=== PATIENT | female | born 1985 | race Caucasian/White ===

== ENCOUNTER 2023-12-28 15:30 | Outpatient (OUT) | payer OTHER, SELFPAY ==
[2023-12-28 16:05] LABS: Basophils Percent Auto 0.2 % (0.2-2.0); Eosinophils Absolute Auto 0.2 10^3/uL (0.0-0.7); Eosinophils Percent Auto 1.9 % (0.9-7.0); Hematocrit 26.9 % (36.0-48.0); Hemoglobin 8.6 g/dL (12.0-16.0); Immature Granulocytes Abs Auto 0.03 10^3/uL (0.00-0.03); Immature Granulocytes Pct Auto 0.3 % (0.0-0.5); Lymphocytes Absolute Auto 1.1 10^3/uL (1.2-3.8); Lymphocytes Percent Auto 11.7 % (20.5-60.0); Mean Corpuscular Hemoglobin 31.6 pg (26.7-34.0); Mean Corpuscular Volume 98.9 fL (81.0-99.0); Mean Platelet Volume 9.1 fL (9.5-13.5); Monocytes Absolute Auto 1.1 10^3/uL (0.3-0.8); Neutrophils Absolute Auto 6.9 10^3/uL (1.4-6.5); Neutrophils Percent Auto 73.9 % (43.0-75.0); Platelet Count 340 10^3/uL (150-450); Red Blood Count 2.72 10^6/uL (4.20-5.40); Red Cell Distribution Width 13.6 % (11.0-15.0); White Blood Count 9.3 10^3/uL (4.0-11.0)
[2023-12-28 16:12] LABS: Prothrombin Time 9.8 sec (9.0-11.6)
[2023-12-28 16:49] LABS: Alanine Aminotransferase 30 U/L (14-59); Albumin Globulin Ratio 0.9; Albumin Level 3.7 g/dL (3.4-5.0); Alkaline Phosphatase 56 U/L (46-116); Anion Gap 12.9; Aspartate Amino Transferase 33 U/L (15-37); BUN Creatinine Ratio 13.9; Bilirubin Total 1.1 mg/dL (0.2-1.0); Carbon Dioxide 25.6 mmol/L (21.0-32.0); Chloride 102 mmol/L (98-107); Estimated GFR (African America >60 (>=60); Estimated GFR (Non-African Ame >60 (>=60); Globulin 3.9 g/dL; Glucose 96 mg/dL (74-106); Potassium 4.5 mmol/L (3.5-5.1); Sodium 136 mmol/L (136-145); Total Protein 7.6 g/dL (6.4-8.2)
[2023-12-28 16:51] LABS: Bilirubin Urine NEGATIVE (NEGATIVE); Blood Urine SMALL (NEGATIVE); Clarity Urine CLEAR (CLEAR); Color Urine YELLOW (YELLOW); Glucose Urine UA NEGATIVE (NEGATIVE); Ketones Urine NEGATIVE (NEGATIVE); Leukocyte Esterase Urine NEGATIVE (NEGATIVE); Nitrite Urine NEGATIVE (NEGATIVE); Protein Urine 30 mg/dL (NEG/TRACE); Specific Gravity Urine >=1.030 (1.005-1.025); Urobilinogen Urine 0.2 EU/dL (0.2-1.0)
--- NOTE | 2023-12-28 17:02 | CT_ITS ---
[address] [address] Patient Name: AMY EL MRN: [id number] date: 1985 Sex: F Assigned Patient Location: Current Patient Location: [place] Accession/Order Number: [id number] Exam Date: 12/28/2023 16:47 Report Date: 12/28/2023 17:33 At the request of: BRENDA LANDON Procedure: CT abdomen pelvis w con EXAM: CT abdomen pelvis w con REASON FOR EXAM: Female, 38 years, Post op pain, G89.19, Rebound tenderness, R10.829, Fever. TECHNIQUE: Computed tomography of the abdomen and pelvis is performed in the axial projection from the lung bases to the pubic symphysis. Sagittal and coronal reconstructed images are performed. Dose reduction techniques were achieved by using automated exposure control and/or adjustment of mA and/or KVP according to patient size and/or use of iterative reconstruction technique. A total of 100 mL Omnipaque 300 IV contrast was given. Study was performed with oral contrast. COMPARISON: None. FINDINGS: Lung bases: There is patchy atelectasis at the lung bases. There is no pleural effusion. The visualized portions of the heart are unremarkable. Liver: The liver is enlarged. There is a small amount of perihepatic fluid. There is intermediate attenuation fluid, of moderate quantity within the abdomen and pelvis, which may represent blood products. No peritoneal enhancement. Gallbladder: The gallbladder is normal. Spleen: The spleen is normal. There is a small calcified granuloma within the spleen. Pancreas: The pancreas is normal. Adrenal glands: The adrenal glands are normal bilaterally. Right kidney: The kidney is normal in size. There is no renal calculus or hydronephrosis. Left kidney: The kidney is normal in size. There is no renal calculus or hydronephrosis. Stomach: The stomach is normal. Small bowel: The small bowel is normal. Large bowel: The colon is normal. Appendix: There has been an appendectomy. Aorta: The aorta is normal. IVC: The IVC is normal. Retroperitoneum: Normal retroperitoneum. Bladder: The bladder is normal. Pelvic organs: The uterus is absent, consistent with hysterectomy. Abdominal wall: There are postoperative changes to the lower abdominal wall. No well-defined drainable fluid collection is seen within the abdominal wall. Osseous structures: Normal bony structures. CT/CT abdomen pelvis w con IMPRESSION: There is a moderate amount of fluid within the abdomen and pelvis, greatest within the pelvis, which has intermediate attenuation. Given the history of recent surgery, this may represent blood products. Correlation with laboratory findings is suggested. I see no peritoneal enhancement or well-defined enhancing collection to suggest abscess formation. Postoperative changes of hysterectomy. No bowel obstruction or acute renal pathology. Dependent atelectasis is seen within both lung bases. Electronically authenticated by: STAS RAMIREZ Date: 12/28/2023 17:33
[2023-12-28 17:35] LABS: INR <0.93
[2023-12-28 19:07] LABS: Bacteria Urine SMALL #/HPF (NONE SEEN); Cast Seen? NONE SEEN #/LPF (NONE SEEN); Crystals Seen? None Seen #/HPF (None Seen); Mucus Urine LARGE (NONE SEEN); RBC Urine 0-2 #/HPF (0-2); Squamous Epithelial Cell Urine MANY #/LPF (NONE/RARE); Urine Culture Indicated ALREADY ORDERED
== END 2023-12-28 15:31 | disposition home or self-care (01) ==
LOC: US 15:35
PROVIDERS: PCP Family Medicine; Visit Provider Family Medicine
DX: R50.9 Fever, unspecified (principal); G89.18 Other acute postprocedural pain; R10.829 Rebound abdominal tenderness, unspecified site; R50.82 Postprocedural fever
CPT/HCPCS: 36415; 74177; 80053; 81001; 85025; 85610; 85730; 87086; 87150; 87186; Q9966; Q9967

== ENCOUNTER 2023-12-29 10:17 | Outpatient (OUT) | payer OTHER, SELFPAY ==
[2023-12-29 12:41] LABS: Basophils Percent Auto 0.3 % (0.2-2.0); Eosinophils Absolute Auto 0.2 10^3/uL (0.0-0.7); Eosinophils Percent Auto 1.9 % (0.9-7.0); Hematocrit 26.2 % (36.0-48.0); Hemoglobin 8.2 g/dL (12.0-16.0); Immature Granulocytes Abs Auto 0.04 10^3/uL (0.00-0.03); Immature Granulocytes Pct Auto 0.5 % (0.0-0.5); Lymphocytes Absolute Auto 0.9 10^3/uL (1.2-3.8); Lymphocytes Percent Auto 10.8 % (20.5-60.0); Mean Corpuscular HGB Conc 31.3 g/dL (29.9-35.2); Mean Corpuscular Hemoglobin 31.1 pg (26.7-34.0); Mean Corpuscular Volume 99.2 fL (81.0-99.0); Mean Platelet Volume 9.4 fL (9.5-13.5); Monocytes Absolute Auto 1.1 10^3/uL (0.3-0.8); Monocytes Percent Auto 12.9 % (1.7-12.0); Neutrophils Absolute Auto 6.3 10^3/uL (1.4-6.5); Neutrophils Percent Auto 73.6 % (43.0-75.0); Platelet Count 395 10^3/uL (150-450); Red Blood Count 2.64 10^6/uL (4.20-5.40); Red Cell Distribution Width 13.6 % (11.0-15.0); White Blood Count 8.6 10^3/uL (4.0-11.0)
--- OUTSIDE RECORDS SUMMARY | 2023-12-31 10:20 | XMS_ITS | CCD ---
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 Shipyard Painter Name Role Phone Brenda Landon Unavailable Ildefonso Leblanc Unavailable Unavailable Primary Care Provider Unavailabl e Unavailable Primary Care Provider Unavailabl e Unavailable Primary Care Provider Unavailabl e Brenda Landon MD Primary Care Provider [phone] Brenda Landon MD Primary Care Provider [phone] DIPESH ., DR GUTIERREZ Admitting Unavailable HOY ., DR GUTIERREZ Attending Unavailable HOY ., DR GUTIERREZ Primary Care Unavailable HOY ., DR GUTIERREZ Consulting Unavailable Susan De La Fuente Consulting Unavailable URIAH ADRIEN LANDERS A Referring Unavailable HOY, BRENDA M Primary Care Unavailable HOY, BRENDA M Primary Care Unavailable HOY, BRENDA M Primary Care Unavailable HILARY SHAFFER Referring Unavailable HOY, BRENDA M Primary Care Unavailable SHELBY GARCIA Attending Unavailable TORSTENHILARY Referring Unavailable RORO CAIN Referring Unavailable HOY, BRENDA M Primary Care Unavailable HILARY SHAFFER M Attending Unavailable HOY, BRENDA M Primary Care Unavailable PEDRO ISRAEL Attending Unavailable HOY, BRENDA M Primary Care Unavailable LAMONT BROWN Attending Unavailable FRANCHESCA ZUNIGA Referring Unavailable HOY, BRENDA M Primary Care Unavailable LUZ SIMS Attending Unavailable HOY, BRENDA M Primary Care Unavailable MECHELLE CRUZUEL A Attending Unavailable HOY, BRENDA M Primary Care Unavailable URIAH LANDERS ZHANNA Admitting Unavailable MECHELLE CRUZUEL A Attending Unavailable HOY, BRENDA M Primary Care Unavailable HILARY SHAFFER Attending Unavailable HILARY SHAFFER M Admitting Unavailable HOY, BRENDA M Primary Care Unavailable LEYLA MAYEN Attending Unavailable LEVI, LUZ Vargas Referring Unavailable HOY, BRENDA M Primary Care Unavailable RIBSHAYNEW, PEDRO Referring Unavailable NGOC-FRANCHESCA PAZ Attending Unavailable AL-ASHKOURTNEY, FEYROUZ Referring Unavailable HOY, BRENDA M Primary Care Unavailable HOY, BRENDA M Primary Care Unavailable TORSTEN, HILARY M Referring Unavailable GAUTAM HILL Attending Unavailable HOY, BRENDA M Primary Care Unavailable AL-JACKSON, FRANCHESCA Referring Unavailable HOY, BRENDA M Primary Care Unavailable EUNICE ARMSTRONG Attending Unavailable HOY, BRENDA M Primary Care Unavailable LAMONT BROWN Referring Unavailable HOY, BRENDA M Primary Care Unavailable TORSTEN, HILARY M Attending Unavailable PEDRO LUIS BAILEY Attending Unavailable HOY, BRENDA M Primary Care Unavailable URIAH LANDERS, ZHANNA Referring Unavailable HOY, BRENDA M Primary Care Unavailable URIAH LANDERS, ZHANNA Referring Unavailable HOY, BRENDA M Primary Care Unavailable SAACHARLES, KATHIEMAR Attending Unavailable HOY, BRENDA M Primary Care Unavailable LEVILUZ DANIEL Attending Unavailable PEDRO LUIS BAILEY Attending Unavailable HOY, BRENDA M Primary Care Unavailable SAATI, AMMAR Referring Unavailable HOY, BRENDA M Primary Care Unavailable URIAH LANDERS, ZHANNA Referring Unavailable URIAH LANDERS, ZHANNA Attending Unavailable HOY, BRENDA M Primary Care Unavailable URIAH LANDERS, ZHANNA Referring Unavailable HOY, BRENDA M Primary Care Unavailable URIAH PEYMAN, ZHANNA Attending Unavailable FRANCHESCA ZUNIGA Referring Unavailable HOY, BRENDA M Primary Care Unavailable PARISH PAGE Attending Unavailable HOY, BRENDA M Primary Care Unavailable HOY, RBENDA M Primary Care Unavailable HOY, BRENDA M Referring Unavailable TORSTEN, HILARY M Attending Unavailable HOY, BRENDA M Primary Care Unavailable RIBAKOW, PEDRO Attending Unavailable HOY, BRENDA M Primary Care Unavailable URIAH LANDERS, ZHANNA Referring Unavailable HOY, BRENDA M Primary Care Unavailable HOY, BRENDA M Primary Care Unavailable TORSTEN, HILARY M Referring Unavailable HOY, BRENDA M Primary Care Unavailable TORSTEN, HILARY M Referring Unavailable Allergies Allergy Classification Reported Allergen(s) Allergy Type Date of Onset Reaction(s) Facility (20 sources) Morphine; Translations: [MORPHINE] Drug Allergy 7 Other: See Comments [facility] (19 sources) traMADol Drug Allergy 8 Other: See Comments [facility] (1 source) Morphine Drug Allergy 7 [facility] Medications Current Medications Medication Drug Class(es) Dates Sig (Normalized) Sig (Original) 0.4 ml adalimumab 100 mg/ml auto-injector (20 sources) Tumor Necrosis Factor Judy Start: 05-12-2023 End: 05-17-2024 inject 40 mg by subcutaneous injection every other week adalimumab 40 mg/0.4 mL subcutaneous pen kit (HUMIRA (CF)) Indications: Crohn's disease of small and large intestines with complication (HCC) Inject 40 mg (1 pen) subcutaneously every 2 weeks. 6 Each 3 05/18/2023 05/17/2024 Active Start: 05-12-2023 End: 09-29-2023 adalimumab (HUMIRA,CF, PEN [facility]) 80 mg/0.8 mL pen kit Indications: Crohn's disease of small and large intestines with complication (HCC) Inject 160 mg (2 pens) subcutaneously on day 1, then inject 80 mg (1 pen)subcutaneously on day 15 followed by 40 mg (1 pen) on day29 and every 2 weeks thereafter. 3 Each 0 05/18/2023 09/29/2023 Discontinued Start: 05-10-2023 End: 05-11-2023 adalimumab 80 mg/0.8 mL subc utaneous pen kit (HUMIRA CF) Indications: Crohn's disease of small and large intestines with complication (HCC) Inject 160 mg subcutaneously on day 1, then inject 80 mg subcutaneously 2 weeks later. 3 Each 0 05/12/2023 Active Start: 05-06-2020 End: 12-31-2022 adalimumab (HUMIRA,CF, PEN) 40 mg/0.4 mL pen kit Inject 40 mg subcutaneously every 2 weeks. 0 05/06/2020 12/31/2022 Discontinued Start: 05-25-2017 Adalimumab (HU JOHN PEN) 40 MG/0.8ML injection Indications: Chronic bilateral low back pain without sciatica , Bilateral thoracic back pain, unspecified chronicity , Crohn's disease with complication, unspecified gastrointestinal tract location , 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 0.8 mL by Subcutaneous route every 7 days.. 4 mL 6 05/25/2017 Active Comment on above: Inject 40 mg subcuta neously every 2 weeks. Inject 160 mg subcut aneously on day 1, then inject 80 mg subcutaneously 2 weeks later. Inject 40 mg (1 pen) subcutaneously every 2 weeks. Inject 160 mg (2 pen s) subcutaneously on day 1, then inject 80 mg (1 pen)subcutaneously on day 15 followed by 40 mg (1 pen) on day29 and every 2 weeks thereafter. bisacodyl 5 mg delayed release oral tablet (2 sources) Stimulant Laxative Start: 09-20-20 End: 09-21-20 Bisacodyl (DULCOLAX) 5 mg tab Use as directed for Miralax / Gatorade Bowel Prep Kit 4 tablet 0 09/20/2023 09/21/2023 Active Comment on above: Use as directed for Miralax / Gatorade Bowel Prep Kit 12 hr buPROPion hydrochloride 150 mg extended release oral tablet (3 sources) Aminoketone Start: 11-17-20 End: 11-14-20 take 1 tablet by mouth once daily buPROPion SR (WELLBUTRIN SR) 150 mg 12 hr tablet Indications: Cigarette nicotine dependence without complication Take 1 tablet by mouth once daily. 30 tablet 0 11/17/2023 11/14/2023 Discontinued Start: 11-17-2023 End: 12-17-2023 take 1 tablet by mouth once daily buPROPion SR (WELLBUTRIN SR) 150 mg 12 hr tablet Indications: Cigarette nicotine dependence without complication Take 1 tablet by mouth once daily. 30 tablet 0 11/17/2023 12/17/2023 Active Start: 11-14-2023 take 1 tablet by marilyn th once daily buPROPion SR (WELLBUTRIN SR) 150 mg 12 hr tablet Indications: Cigarette nicotine dependence without complication TAKE 1 TABLET BY MOUTH EVERY DAY 90 tablet 1 11/14/2023 Active Comment on above: Take 1 tablet by marilyn th once daily. TAKE 1 TABLET BY MARILYN TH EVERY DAY dicyclomine hydrochloride 10 mg oral capsule (1 source) Anticholinergic dicyclomine 10 M G Cap Indications: Chronic bilateral low back pain without sciatica , Bilateral thoracic back pain, unspecified chronicity , Crohn's disease with complication, unspecified gastrointestinal tract location , 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 take 10 mg by mouth 4 times daily.. Active folic acid 1 mg oral tablet (1 source) Start: 017 folic acid 1 MG Tab Indications: Chronic bilateral low back pain without sciatica , Bilateral thoracic back pain, unspecified chronicity , Crohn's disease with complication, unspecified gastrointestinal tract location , 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 take 1 tablet by mouth daily.. 90 tablet 3 05/25/2017 Active Gatorade Sports Drink (2 sources) Start: End: Gatorade Sports Drink Use as directed for Miralax / Gatorade Bowel Prep Kit 0 09/20/2023 09/21/2023 Active Comment on above: Use as directed for Miralax / Gatorade Bowel Prep Kit mesalamine 1200 mg delayed release oral tablet (1 source) Aminosalicylate take 2 tablets by mouth once daily Mesalamine (LIALDA) 1.[address] take by mouth.. 2 tabs qd Active 24 hr nicotine 0.292 mg/hr transdermal system (20 sources) Cholinergic Nicotinic Agonist Start: 023 End: 024 nicotine (NICODERM) 7 mg/24 hr Indications: Cigarette nicotine dependence without complication Apply 1 Patch as directed every 24 hours. 28 Patch 5 10/18/2023 04/15/2024 Active Start: 10-18-2023 apply 1 dose transde rmal route every twenty-four hours nicotine (NICODERM) 14 mg/24 hr Indications: Cigarette nicotine dependence without complication Apply 1 Patch as directed every 24 hours. 28 Patch 0 10/18/2023 Active Start: 10-18-2023 take 1 dose by mouth every two hours as needed nicotine polacrilex (NICORETTE) 4 mg gum Indications: Cigarette nicotine dependence without complication Take 1 Each by mouth every 2 hours as needed. 100 Each 5 10/18/2023 Active Start: 01-24-2023 End: 05-19-2023 nicotine (NICODERM) 7 mg/24 hr Apply 1 Patch as directed every 24 hours. 14 Patch 1 01/24/2023 05/19/2023 Discontinued Start: 12-31-2022 End: 01-24-2023 Nicotine Polacrilex 2 mg daljit enge Use 1 lozenge every 1-2 hour as needed; do not exceed >20 lozenge per day. Put the lozenge in your mouth between your gums and your cheek and allow the lozenge to dissolve slowly over 20-30 minutes, moving it around every so often from one side of your mouth to the other. 144 Lozenge 0 12/31/2022 01/24/2023 Discontinued Comment on above: Use 1 lozenge every 1-2 hour as needed; do not exceed >20 lozenge per day. Put the lozenge in your mouth between your gums and your cheek and allow the lozenge to dissolve slowly over 20-30 minutes, moving it around every so often from one side of your mouth to the other. Apply 1 Patch as dir ected every 24 hours. Take 1 Each by mouth every 2 hours as needed. oxyCODONE hydrochloride 5 mg oral tablet (1 source) Opioid Agonist Start: 3 End: take 1 tablet by mouth every six hours as needed for pain oxyCODONE IR (ROXICODONE) 5 mg immediate release tablet Indications: Postoperative pain Take 1 tablet by mouth every 6 hours as needed for pain for up to 7 days. 28 tablet 0 02/17/2023 02/24/2023 Active Comment on above: Take 1 tablet by marilyn every 6 hours as needed for pain for up to 7 days. pantoprazole 40 mg delayed release oral tablet (1 source) Proton Pump Inhibitor pantoprazole (PROTONIX) [address] take 40 mg by mouth daily.. Active polyethylene glycol 3350 90576 mg powder for oral solution (2 sources) Osmotic Laxative Start: 3 End: 3 polyethylene glycol 3350 17 gram/dose powder Use as directed for Miralax / Gatorade Bowel Prep Kit 238 g 0 09/20/2023 09/21/2023 Active Comment on above: Use as directed for Miralax / Gatorade Bowel Prep Kit Probiotic Product (PROBIOTIC ADVANCED PO) (1 source) Probiotic Produc t (PROBIOTIC ADVANCED PO) take by mouth.. Active Completed/Discontinued Medications Medication Drug Class(es) Dates Sig (Normalized) Sig (Original) acetaminophen 500 mg oral tablet (16 sources) Start: 02-17-2023 End: 05-19-2023 take 2 tablets by mouth every eight hours as needed acetaminophen (TYLENOL) 500 mg tablet Take 2 tablets by mouth every 8 hours as needed for pain. 0 02/17/2023 05/19/2023 Discontinued Comment on above: Take 2 tablets by mo ut every 8 hours as needed for pain. cholecalciferol 0.025 mg oral tablet (20 sources) Vitamin D Start: 02-28-2023 End: 05-29-2023 take 2 tablets by mouth once daily cholecalciferol (VITAMIN D3) 1,000 unit tab tablet Indications: Vitamin D deficiency Take 2 tablets by mouth once daily. 180 tablet 1 02/28/2023 05/19/2023 Discontinued Start: 12-13-2022 End: 03-13-2023 take 1 capsule by mouth every week cholecalciferol, Vitamin D3, (VITAMIN D3) 1,250 mcg (50,000 unit) cap capsule Indications: Vitamin D deficiency Take 1 capsule by mouth one time a week. 4 capsule 2 12/13/2022 02/28/2023 Discontinued (Course of therapy completed) Comment on above: Take 1 capsule by mo uth one time a week. Take 2 tablets by mo [facility] once daily. ciprofloxacin 500 mg oral tablet (9 sources) Quinolone Antimicrobial End: 05-19 take 1 tablet by mouth twice daily ciprofloxacin HCl (CIPRO) 500 mg tablet Take 500 mg by mouth twice daily. 0 05/19/2023 Discontinued Comment on above: Take 500 mg by mouth twice daily. 0.8 ml enoxaparin sodium 100 mg/ml prefilled syringe (9 sources) Low Molecular Weight Heparin Start : 09-14 End: 09-24 inject 0.65 mL by subcutaneous injection every twelve hours enoxaparin (LOVENOX) 80 mg/0.8 mL Indications: Antiphospholipid syndrome (HCC) Inject 0.65 mL subcutaneously every 12 hours for 10 days. 20 Each 0 09/14/2023 09/24/2023 Comment on above: Inject 0.65 mL subcu taneously every 12 hours for 10 days. enteric contrast (will be provided with radiology test) (2 sources) Start : 07-05 End: 07-06 enteric contrast (will be provided with radiology test) Indications: Crohn's disease of both small and large intestine without complication (HCC) , Crohn's disease of small and large intestines with complication (HCC) For MRI ENTEROGRAPHY WO/W Administer, As Directed One Time Only, via Oral, Rectal, both Oral and Rectal, Enteric Tube, Stoma or Indwelling Catheter, Enteric Contrast as designated per enteric contrast guidelines 1 Each 0 07/05/2022 07/06/2022 Comment on above: For MRI ENTEROGRAPHY WO/W Administer, As Directed One Time Only, via Oral, Rectal, both Oral and Rectal, Enteric Tube, Stoma or Indwelling Catheter, Enteric Contrast as designated per enteric contrast guidelines erythromycin 500 mg oral tablet (1 source) Macrolide, Macrolide Antimicrobial Start : 02-11 Erythromycin 500 mg tablet Indications: Preoperative examination Take 2 tablets by mouth as directed. Take 2 tablets by mouth at 9pm and take 2 tablets by mouth at 11pm the night before surgery. 4 tablet 0 02/11/2023 Active Comment on above: Take 2 tablets by mo ut as directed. Take 2 tablets by mouth at 9pm and take 2 tablets by mouth at 11pm the night before surgery. glucagon (rdna) 1 mg injection (11 sources) Antihypoglycemic Agent Start : 07-05 End: 12-10 inject 1 mg intravenously once glucagon (GLUCAGEN) 1 mg/mL injection Indications: Crohn's disease of both small and large intestine without complication (HCC) , Crohn's disease of small and large intestines with complication (HCC) Inject 1 mg intravenously one time only for 1 dose. For MRI Enterography, Inject 1 mg intravenously, as directed. Slow push at the appropriate time during MRI Scan 1 Each 0 07/05/2022 12/10/2022 Discontinued (Course of therapy completed) Comment on above: Inject 1 mg intraven ously one time only for 1 dose. For MRI Enterography, Inject 1 mg intravenously, as directed. Slow push at the appropriate time during MRI Scan iv contrast (will be provided with radiology test) (16 sources) Start : 05-20 End: 09-29 iv contrast (will be provided with radiology test) MRI Female Pelvis Inject, intravenously, once for 1 dose. No IV access, insert saline lock prior to the beginning of sedation, infusion, injection of imaging exam. Discontinue saline lock post exam. If Pt has a central line or IVAD, may access for administration according to line specific nursing protocol. Once exam is complete flush line and de-access according to line specific nursing protocol in the MR contrast administration guidelines link. 1 Each 0 05/20/2023 09/29/2023 Discontinued Start: 05-20-2023 iv contrast (w ill be provided with radiology test) MRI Female Pelvis Inject, intravenously, once for 1 dose. No IV access, insert saline lock prior to the beginning of sedation, infusion, injection of imaging exam. Discontinue saline lock post exam. If Pt has a central line or IVAD, may access for administration according to line specific nursing protocol. Once exam is complete flush line and de-access according to line specific nursing protocol in the MR contrast administration guidelines link. 1 Each 0 05/20/2023 Active Start: 07-05-2022 End: 07-06-2022 iv contrast (will be provide d with radiology test) Indications: Crohn's disease of both small and large intestine without complication (HCC) , Crohn's disease of small and large intestines with complication (HCC) MRI Enterography Inject, intravenously, once for 1 dose. No IV access, insert saline lock prior to the beginning of sedation, infusion, injection of imaging exam. Discontinue saline lock post exam. If Pt. has a central line or IVAD, may access for administration according to line specific nursing protocol. Once exam is complete flush line and de-access according to line specific nursing protocol in the MR contrast administration guidelines link. 1 Each 0 07/05/2022 07/06/2022 Comment on above: MRI Enterography Inj ect, intravenously, once for 1 dose. No IV access, insert saline lock prior to the beginning of sedation, infusion, injection of imaging exam. Discontinue saline lock post exam. If Pt. has a central line or IVAD, may access for administration according to line specific nursing protocol. Once exam is complete flush line and de-access according to line specific nursing protocol in the MR contrast administration guidelines link. MRI Female Pelvis In ject, intravenously, once for 1 dose. No IV access, insert saline lock prior to the beginning of sedation, infusion, injection of imaging exam. Discontinue saline lock post exam. If Pt has a central line or IVAD, may access for administration according to line specific nursing protocol. Once exam is complete flush line and de-access according to line specific nursing protocol in the MR contrast administration guidelines link. lidocaine 0.05 mg/mg medicated patch (20 sources) Antiarrhythmic, Amide Local Anesthetic Start: 05-19-20 End: 09-29-20 apply 1 dose transdermal route every twenty-four hours lidocaine (LIDODERM) 5 % Indications: Arthritis associated with inflammatory bowel disease , Back stiffness , Bilateral sacroiliitis (HCC) Apply 1 Patch as directed every 24 hours. 30 Patch 1 05/19/2023 09/29/2023 Discontinued Comment on above: Apply 1 Patch as dir ected every 24 hours. Magnesium Sulfate / potassium sulfate / sodium sulfate (14 sources) Start: 07-05-20 End: 12-10-19 sodium sulfate-potassium sulfate-magnesium sulfate (SUPREP BOWEL PREP KIT) 17.5-3.13-1.6 gram oral liquid Indications: Crohn's disease of both small and large intestine without complication (HCC) , Crohn's disease of small and large intestines with complication (HCC) Use as directed. 1 Kit 0 07/05/2022 12/10/2022 Discontinued (Course of therapy completed) Start: 07-05-2022 sodium sulfate -potassium sulfate-magnesium sulfate (SUPREP BOWEL PREP KIT) 17.5-3.13-1.6 gram oral liquid Indications: Crohn's disease of both small and large intestine without complication (HCC) , Crohn's disease of small and large intestines with complication (HCC) Use as directed. 1 Kit 0 07/05/2022 Active Comment on above: Use as directed. metroNIDAZOLE 500 mg oral tablet (1 source) Nitroimidazole Antimicrobial Start: 02-12-20 metroNIDAZOLE (FLAGYL) 500 mg tablet Indications: Preoperative examination Take 1 tablet by mouth at 9pm and take 1 tablet by mouth at 11pm the night before surgery. 2 tablet 0 02/11/2023 Active Comment on above: Take 1 tablet by marilyn th at 9pm and take 1 tablet by mouth at 11pm the night before surgery. norethindrone acetate 5 mg oral tablet (12 sources) Start: 05-20-20 End: 09-29-20 take 1 tablet by mouth once daily norethindrone (AYGESTIN) 5 mg tablet Indications: Endometriosis , Pelvic pain in female Take 1 tablet by mouth once daily. 90 tablet 0 05/20/2023 09/29/2023 Discontinued Comment on above: Take 1 tablet by marilyn th once daily. simethicone 125 mg chewable tablet (5 sources) Start: 12-10-19 End: 03-10-20 take 1 tablet by mouth every six hours as needed Simethicone 125 mg chewable tablet Indications: Crohn's disease of small and large intestines with complication (HCC) Take 1 tablet by mouth every 6 hours as needed. 120 tablet 2 12/10/2022 12/31/2022 Discontinued Comment on above: Take 1 tablet by marilyn th every 6 hours as needed. Surgical Lubricant Jelly gel (14 sources) Start: 05-20-20 End: 09-29-20 Surgical Lubricant Jelly gel For MRI Female Pelvis, MRI department to provide. Administer intra-vaginal Surgilube immediately prior the MRI procedure (total amount to patient toleranace). 1 g 0 05/20/2023 09/29/2023 Discontinued Start: 05-20-2023 Surgical Lubri cant Jelly gel For MRI Female Pelvis, MRI department to provide. Administer intra-vaginal Surgilube immediately prior the MRI procedure (total amount to patient toleranace). 1 g 0 05/20/2023 Active Comment on above: For MRI Female Pelvi s, MRI department to provide. Administer intra-vaginal Surgilube immediately prior the MRI procedure (total amount to patient toleranace). warfarin sodium 3 mg oral tablet (9 sources) Vitamin K Antagonist Start: 09-14-20 End: 09-29-20 take 1 tablet by mouth once daily warfarin (COUMADIN) 3 mg tablet Indications: Antiphospholipid syndrome (HCC) Take 1 tablet by mouth daily as directed. 30 tablet 0 09/14/2023 09/29/2023 Discontinued Comment on above: Take 1 tablet by marilyn th daily as directed. Problems Active Problems Problem Classification Problem Date Documented Da te Episodic/Chronic Administrative/social admission (2 sources) 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; Translations: [Other specified counseling] Onset: 4 Episodic Coagulation and hemorrhagic disorders (20 sources) Antiphospholipid syndrome; Translations: [Antiphospholipid syndrome] Onset: 3 09-14-2023 Chronic Endometriosis (3 sources) Endometriosis (clinical); Translations: [Endometriosis, unspecified] Onset: 3 Chronic Intestinal obstruction without hernia (1 source) Stricture of intestine; Translations: [Other intestinal obstruction unspecified as to partial versus complete obstruction] Episodic Menstrual disorders (2 sources) Dysmenorrhea; Translations: [Dysmenorrhea, unspecified] Onset: 4 09-05-2023 Chronic Nutritional deficiencies (4 sources) Vitamin D deficiency; Translations: [Vitamin D deficiency, unspecified] Onset: 3 Chronic Other aftercare (3 sources) Long-term current use of systemic steroid; Translations: [terminal make up operator (current) use of systemic steroids] Episodic Other aftercare (13 sources) Long-term current use of anticoagulant; Translations: [terminal make up operator (current) use of anticoagulants] Onset: 3 09-14-2023 Episodic Other circulatory disease (2 sources) Raynaud's phenomenon; Translations: [Raynaud's syndrome without gangrene] Chronic Other circulatory disease (1 source) Raynaud's syndrome without gangrene; Translations: [Raynaud's phenomenon without gangrene] Onset: 4 Chronic Other female genital disorders (1 source) Abnormal uterine bleeding; Translations: [Abnormal uterine and vaginal bleeding, unspecified] 09-05-2023 Chronic Other female genital disorders (1 source) Abnormal uterine and vaginal bleeding, unspecified; Translations: [Abnormal uterine bleeding] Onset: 4 Chronic Other female genital disorders (1 source) H/O: miscarriage; Translations: [Recurrent loss] Episodic Other gastrointestinal disorders (2 sources) Abdominal bloating; Translations: [Abdominal distension (gaseous)] Episodic Other gastrointestinal disorders (3 sources) Enteropathic arthritis; Translations: [Disease of intestine, unspecified] Episodic Other non-traumatic joint disorders (1 source) Enteropathic arthropathies, unspecified site; 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] Onset: 3 Chronic Other non-traumatic joint disorders (4 sources) Pain in left ankle and joints of left foot; Translations: [PAIN IN LEFT ANKLE] Onset: 3 Episodic Regional enteritis and ulcerative colitis (20 sources) Crohn's disease; Translations: [Crohn's disease of colon] Onset: 6 10-11-2016 Chronic Residual codes; unclassified (2 sources) Human leukocyte antigen B27 test positive; Translations: [Genetic susceptibility to other disease] Episodic Residual codes; unclassified (1 source) Other specified postprocedural states; Translations: [Post-operative state] Onset: 4 Episodic Rheumatoid arthritis and related disease (20 sources) Ankylosing spondylitis; Translations: [Ankylosing spondylitis of unspecified sites in spine] Onset: 3 02-16-2023 Chronic Spondylosis; intervertebral disc disorders; other back problems (3 sources) Bilateral inflammation of sacroiliac joint; Translations: [Sacroiliitis, not elsewhere classified] Onset: 3 Chronic Spondylosis; intervertebral disc disorders; other back problems (4 sources) Chronic low back pain; Translations: [Thoracic back pain] Onset: 6 10-11-2016 Episodic Substance-related disorders (20 sources) Cigarette smoker ; Translations: [Nicotine dependence, cigarettes, uncomplicated] Onset: 3 Chronic Unclassified (1 source) 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; Translations: [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] Onset: 7 05-25-2017 Unclassified (1 source) Adenomyosis; Translations: [Adenomyosis] Onset: 4 Unclassified (1 source) Post Op Drainage Onset: 3 Unclassified (1 source) Back stiffness; Translations: [Back stiffness] Onset: 3 Past or Other Problems Problem Classification Problem Date Documented Da te Episodic/Chronic Abdominal pain (2 sources) Pain in female pelvis; Translations: [Pelvic and perineal pain] Onset: 07-12-2023 Episodic Blindness and vision defects (3 sources) Eye / vision finding; Translations: [Unspecified visual disturbance] Onset: 06-22-2023 Episodic Other female genital disorders (1 source) Recurrent loss; 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] Onset: 02-11-2023 Episodic Other gastrointestinal disorders (1 source) Disease of intestine, unspecified; 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] Onset: 01-19-2023 Episodic Other nervous system disorders (20 sources) Postoperative pain ; Translations: [Other acute postprocedural pain] Onset: 02-16-2023 02-17-2023 Episodic Other nervous system disorders (1 source) Other acute postprocedural pain; Translations: [Postoperative pain] Onset: 02-17-2023 Episodic Other screening for suspected conditions (not mental disorders or infectious disease) (3 sources) Coag./bleeding tests abnormal; Translations: [Abnormal coagulation profile] Onset: 05-20-2023 Episodic Residual codes; unclassified (20 sources) History of excision of small intestine; Translations: [Acquired absence of other specified parts of digestive tract] Onset: 02-14-2023 02-17-2023 Episodic Residual codes; unclassified (1 source) Acquired absence of other specified parts of digestive tract; Translations: [S/P small bowel resection] Onset: 02-17-2023 Episodic Urinary tract infections (20 sources) Urinary tract infectious disease; Translations: [Urinary tract infection, site not specified] Onset: 03-07-2023 03-07-2023 Episodic Results Test Name Value Interpretation Reference Range Facility [facility] 12-28-2023 CNPN Normal [facility] Basic metabolic 2000 panelon 12-23-2023 Anion gap [Moles/Vol] 11 mmol/L Normal 9-18 [facility] Comment on above: Order Comment: Speci men Type: BLOOD SPECIMENOrdering Facility: [facility] Address: [address] [place] [address] Performed By: #### 2 4321-2 ####[facility] LABIA [id number] [place] [address] [place] Calcium [Mass/Vol] 8.5 mg/dL Normal 8.5-10.2 [facility] Comment on above: Order Comment: Speci men Type: BLOOD SPECIMENOrdering Facility: [facility] Address: [address] [place] [address] Performed By: #### 2 4321-2 ####[facility] LABCLIA [id number] [place] [address] [place] Chloride [Moles/Vol] 103 mmol/L Normal 97-105 [facility] Comment on above: Order Comment: Speci men Type: BLOOD SPECIMENOrdering Facility: [facility] Address: [address] [place] [address] Performed By: #### 2 4321-2 ####[facility] LABCLIA [id number] [place] [address] [place] CO2 [Moles/Vol] 21 mmol/L Low 22-30 [facility] Comment on above: Order Comment: Speci men Type: BLOOD SPECIMENOrdering Facility: [facility] Address: [address] [place] [address] Performed By: #### 2 4321-2 ####[facility] LABCLIA [id number] [place] [address] [place] Creatinine [Mass/Vol] 0.91 mg/dL Normal 0.58-0.96 [facility] Comment on above: Order Comment: Speci men Type: BLOOD SPECIMENOrdering Facility: [facility] Address: [address] [place] [address] Performed By: #### 2 4321-2 ####[facility] [id number] [place] [address] [place] Creatinine and Glomerular filtration rate.predicted panel (S/P/Bld) 82 mL/min/1.73m??? Normal >=60 [facility] Comment on above: Order Comment: Speci men Type: BLOOD SPECIMENOrdering Facility: [facility] Address: [address] [place] [address] Result Comment: Abbey mated Glomerular Filtration Rate (eGFR) is calculated using the 2020 CKD-EPI creatinine equation. This equation utilizes serum creatinine, sex, and age as parameters. The creatinine assay has traceable calibration to isotope dilution-mass spectrometry. Refer to KDIGO guidelines for clinical interpretation. In patients with unstable renal function, e.g. those with acute kidney injury, the eGFR may not accurately reflect actual GFR. Performed By: #### 2 4321-2 ####[facility] LABCLIA [id number] [place] [id number] [place] Glucose [Mass/Vol] 158 mg/dL High 74-99 [facility] Comment on above: Order Comment: Speci men Type: BLOOD SPECIMENOrdering Facility: [facility] Address: [address] [place] [address] Result Comment: The [place] Diabetes [employer] (ADA) provides guidance for cutoff values for fasting glucose and random glucose. The ADA defines fasting as no caloric intake for at least 8 hours. Fasting plasma glucose results between 100 to 125 mg/dL indicate increased risk for diabetes (prediabetes).Fasting plasma glucose results greater than or equal to 126 mg/dL meet the criteria for diagnosis of diabetes. In the absence of unequivocal hyperglycemia, results should be confirmed by repeat testing. In a patient with classic symptoms of hyperglycemia or hyperglycemic crisis, random plasma glucose results greater than or equal to 200 mg/dL meet the criteria for diagnosis of diabetes.Reference: Standards of Medical Care in Diabetes 2016, [place] [employer]. Diabetes Care. 2016.39(Suppl 1). Performed By: #### 2 4321-2 ####[facility]CL[facility] [id number] [place] [address] [place] Potassium [Moles/Vol] 4.8 mmol/L Normal 3.7-5.1 [facility] Comment on above: Order Comment: Speci men Type: BLOOD SPECIMENOrdering Facility: [facility] Address: [address] [place] [address] Performed By: #### 2 4321-2 ####[facility]CLIA [id number] [place] [address] [place] Sodium [Moles/Vol] 135 mmol/L Low 136-144 [facility] Comment on above: Order Comment: Speci men Type: BLOOD SPECIMENOrdering Facility: [facility] Address: [address] [place], [place] [address] Performed By: #### 2 4321-2 ####[facility]CLIA [id number] [place] [address] [place] Urea nitrogen [Mass/Vol] 12 mg/dL Normal 7-21 [facility] Comment on above: Order Comment: Speci men Type: BLOOD SPECIMENOrdering Facility: [facility] Address: [address] [place] [address] Performed By: #### 2 4321-2 ####[facility] [id number] [place] [address] [place] CBC panel Auto (Bld)on 12-23 Erythrocyte distribution width (RBC) [Ratio] 12.7 % Normal 11.5-15.0 [facility] Comment on above: Order Comment: Speci men Type: BLOOD SPECIMENOrdering Facility: [facility] Address: [address] [place] [address] Performed By: #### 5 8410-2 ####[facility] [id number] [place] [address] [place] Hematocrit (Bld) [Volume fraction] 28.3 % Low 36.0-46.0 [facility] Comment on above: Order Comment: Speci men Type: BLOOD SPECIMENOrdering Facility: [facility] Address: [address] [place] [address] Performed By: #### 5 8410-2 ####[facility] [id number] [place] [address] [place] Hemoglobin (Bld) [Mass/Vol] 9.4 g/dL Low 11.5-15.5 [facility] Comment on above: Order Comment: Speci men Type: BLOOD SPECIMENOrdering Facility: [facility] Address: [address] [place] [address] Performed By: #### 5 8410-2 ####[facility] [id number] [place] [address] [place] MCH (RBC) [Entitic mass] 31.9 pg Normal 26.0-34.0 [facility] Comment on above: Order Comment: Speci men Type: BLOOD SPECIMENOrdering Facility: [facility] Address: [address] [place] [address] Performed By: #### 5 8410-2 ####[facility]CLIA [id number] [place] [address] [place] MCHC (RBC) [Mass/Vol] 33.2 g/dL Normal 30.5-36.0 [facility] Comment on above: Order Comment: Speci men Type: BLOOD SPECIMENOrdering Facility: [facility] Address: [address] [place] [address] Performed By: #### 5 8410-2 ####[facility] [id number] [place] [address] [place] MCV (RBC) [Entitic vol] 95.9 fL Normal 80.0-100.0 [facility] Comment on above: Order Comment: Speci men Type: BLOOD SPECIMENOrdering Facility: [facility] Address: [address] [place] [address] Performed By: #### 5 8410-2 ####[facility] [id number] [place] [address] [place] Nucleated RBC (Bld) [#/Vol] 10*3/uL Normal <0.01 [facility] Comment on above: Order Comment: Speci men Type: BLOOD SPECIMENOrdering Facility: [facility] Address: [address] [place] [address] Performed By: #### 5 8410-2 ####[facility] [id number] [place] [address] [place] Platelet mean volume (Bld) [Entitic vol] 9.7 fL Normal 9.0-12.7 [facility] Comment on above: Order Comment: Speci men Type: BLOOD SPECIMENOrdering Facility: [facility] Address: [address] [place] [address] Performed By: #### 5 8410-2 ####[facility] [id number] [place] [address] [place] Platelets (Bld) [#/Vol] 259 10*3/uL Normal 150-400 [facility] Comment on above: Order Comment: Speci men Type: BLOOD SPECIMENOrdering Facility: [facility] Address: [address] [place] [address] Performed By: #### 5 8410-2 ####[facility]CLIA [id number] [place] [address] [place] RBC (Bld) [#/Vol] 2.95 10*6/uL Low 3.90-5.20 [facility] Comment on above: Order Comment: Speci men Type: BLOOD SPECIMENOrdering Facility: [facility] Address: [address] [place] [address] Performed By: #### 5 8410-2 ####[facility]CLIA [id number] [place] [address] [place] WBC (Bld) [#/Vol] 13.91 10*3/uL High 3.70-11.00 [facility] Comment on above: Order Comment: Speci men Type: BLOOD SPECIMENOrdering Facility: [facility] Address: [address] [place] [address] Performed By: #### 5 8410-2 ####[facility]CLIA [id number] [place] [address] [place] CNPNon 12-23-2023 CNPN Normal [facility] NURSING PROGon 12-23-2023 NURSING PROG Normal [facility] NURSING PROG Normal [facility] NURSING PROG Normal [facility] ANES PRE-OPon 12-22-2023 ANES PRE-OP Normal [facility] CBC panel Auto (Bld)on 12-22 Erythrocyte distribution width (RBC) [Ratio] 12.7 % Normal 11.5-15.0 [facility] Comment on above: Order Comment: Speci men Type: BLOOD SPECIMENOrdering Facility: [facility] Address: [address] [place] [address] Performed By: #### 5 8410-2 ####[facility]CL[facility] [id number] [place] [address] [place] Hematocrit (Bld) [Volume fraction] 28.8 % Low 36.0-46.0 [facility] Comment on above: Order Comment: Speci men Type: BLOOD SPECIMENOrdering Facility: [facility] Address: [address] [place] [address] Performed By: #### 5 8410-2 ####[facility] [id number] [place] [address] [place] Hemoglobin (Bld) [Mass/Vol] 9.6 g/dL Low 11.5-15.5 [facility] Comment on above: Order Comment: Speci men Type: BLOOD SPECIMENOrdering Facility: [facility] Address: [address] [place] [address] Performed By: #### 5 8410-2 ####[facility] [id number] [place] [address] [place] MCH (RBC) [Entitic mass] 31.6 pg Normal 26.0-34.0 [facility] Comment on above: Order Comment: Speci men Type: BLOOD SPECIMENOrdering Facility: [facility] Address: [address] [place] [address] Performed By: #### 5 8410-2 ####[facility] [id number] [place] [address] [place] MCHC (RBC) [Mass/Vol] 33.3 g/dL Normal 30.5-36.0 [facility] Comment on above: Order Comment: Speci men Type: BLOOD SPECIMENOrdering Facility: [facility] Address: [address] [place] [address] Performed By: #### 5 8410-2 ####[facility]IA [id number] [id number] [address] [place] MCV (RBC) [Entitic vol] 94.7 fL Normal 80.0-100.0 [facility] Comment on above: Order Comment: Speci men Type: BLOOD SPECIMENOrdering Facility: [facility] Address: [address] [place] [address] Performed By: #### 5 8410-2 ####[facility]CL[facility] [id number] [place] [address] [place] Nucleated RBC (Bld) [#/Vol] 10*3/uL Normal <0.01 [facility] Comment on above: Order Comment: Speci men Type: BLOOD SPECIMENOrdering Facility: [facility] Address: [address] [place] [address] Performed By: #### 5 8410-2 ####[facility]CL[facility] [id number] [place] [address] [place] Platelet mean volume (Bld) [Entitic vol] 9.7 fL Normal 9.0-12.7 [facility] Comment on above: Order Comment: Speci men Type: BLOOD SPECIMENOrdering Facility: [facility] Address: [address] [place] [address] Performed By: #### 5 8410-2 ####[facility] [id number] [place] [address] [place] Platelets (Bld) [#/Vol] 235 10*3/uL Normal 150-400 [facility] Comment on above: Order Comment: Speci men Type: BLOOD SPECIMENOrdering Facility: [facility] Address: [address] [place] [address] Performed By: #### 5 8410-2 ####[facility]CL[facility] [id number] [place] [address] [place] RBC (Bld) [#/Vol] 3.04 10*6/uL Low 3.90-5.20 [facility] Comment on above: Order Comment: Speci men Type: BLOOD SPECIMENOrdering Facility: [facility] Address: [address] [place] [address] Performed By: #### 5 8410-2 ####[facility]CL[facility] [id number] [place] [address] [place] WBC (Bld) [#/Vol] 10.70 10*3/uL Normal 3.70-11.00 [facility] Comment on above: Order Comment: Speci men Type: BLOOD SPECIMENOrdering Facility: [facility] Address: [address] [place] [address] Performed By: #### 5 8410-2 ####[facility] [id number] [place] [address] [place] NURSING PROGon 12-22-2023 NURSING PROG Normal [facility] NURSING PROG Normal [facility] OPERATIVE NOon 12-22-2023 OPERATIVE NO Normal [facility] SURGICAL PATHOLOGYon 024 CASE REPORT Normal [facility] Comment on above: Order Comment: Speci men Type: TISSUE SPECIMENOrdering Facility: [facility] Address: [address] [place] [address] Result Comment: [facility] Pathology Report Case: [id number] Provider: Adrien Cruz MD Collected: 12/22/2023 12:47 PMOrdering Location: Admitting Received: 12/22/2023 02:19 PMPathologist: Ryan Chowdhury MDSpecimen: UTERUS, CERVIX, BILATERAL FALLOPIAN TUBES Performed By: #### S ####[facility] [id number] [place] [address] [place] CLINICAL HISTORY Normal [facility] Comment on above: Order Comment: Speci men Type: TISSUE SPECIMENOrdering Facility: [facility] Address: [address] [place] [address] Result Comment: Pre- op diagnosis:Adenomyosis [N80.03]Dysmenorrhea [N94.6]Abnormal uterine bleeding [N93.9] Performed By: #### S ####[facility]CL[facility] [id number] [address] [place] FINAL DIAGNOSIS Normal [facility] Comment on above: Order Comment: Speci men Type: TISSUE SPECIMENOrdering Facility: [facility] Address: [address] [place] [address] Result Comment: A. U terus, cervix, bilateral fallopian tubes, hysterectomy and bilateral salpingectomy- Histologically unremarkable cervix- Secretory endometrium- Adenomyosis- Leiomyomas- Serosal endometriosis- Histologically unremarkable fallopian tubes Performed By: #### S ####[facility]CL[facility] [id number] [address] [place] FINAL PERFORMING LAB Normal [facility] Comment on above: Order Comment: Speci men Type: TISSUE SPECIMENOrdering Facility: [facility] Address: [address] [place] [address] Result Comment: Diag nostic interpretation performed at [facility], [address] [place] [address] CLIA# [id number] Director: Scot Poole M.D. Performed By: #### S ####[facility]CL[facility] [id number] [address] [place] GROSS DESCRIPTION Normal [facility] Comment on above: Order Comment: Speci men Type: TISSUE SPECIMENOrdering Facility: [facility] Address: [address] [place] [address] Result Comment: A. U TERUS, CERVIX, BILATERAL FALLOPIAN TUBESReceived in formalin labeled `` uterus, cervix, bilateral fallopian tubes? is a uterus with attached cervix and detached bilateral fallopian tubes weighing 88.3 g in aggregate. No vaginal cuff is present. The uterus with cervix measures 8.8 cm fundus to cervix, 4.5 cm cornu to cornu and 3 cm anterior to posterior. The serosal surface is claire-pink and moderately ragged on the anterior surface with diffuse cauterized fibrous adhesions. The ectocervix is claire-pink and demonstrates a a patent, slit-like cervical os.The endocervical canal measures 3.8 cm in length and is moderately dilated and demonstrates multiple nabothian cysts. The endometrial cavity measures 4.5 cm in length by 3.5 cm in greatest width. The endometrium pink-claire and moderately lush with no polyps or discrete lesions identified. The endometrium measures 0.1-0.7 cm in thickness. There are several scattered cystic spaces within the thickened endometrium containing scant clear, viscous and hemorrhagic fluid. These areas are more prominent on the anterior half. The myometrium measures up to 2 cm in normal thickness and distorted by 2 claire-white, whorled, rubbery, and well-circumscribed intramural nodules ranging from 0.4 to 0.9 cm in greatest dimension. No calcification, hemorrhage or necrosis is identified.The detached fallopian tubes measure 7.7 cm in length by 0.7 cm in diameter and 5 cm in length by 0.7 cm in diameter. Both exhibit normal villous fimbriated ends and unremarkable serosal surfaces. The longer fallopian tube segment demonstrates a thin-walled, clear fluid-filled paratubal cyst adjacent to the fimbriated end measuring 0.6 cm in greatest dimension. Sectioning reveals pinpoint lumens and unremarkable cut surfaces. Assembler Brazer sections are submitted as follows:A1 anterior cervix at 12:00A2 posterior cervix at 6:74G8-G5 anterior uterine wall, full-thickness with cystic spacesA5 posterior uterine wall, full-thicknessA6 intramural nodulesA7 longer fallopian tube with entire fimbriated endA8 shorter fallopian tube with entire fimbriated endKSZ December 22, 2023 3:18 PMGross examination performed at [facility], [address] [place] [address] Performed By: #### S ####[facility] [id number] [place] [address] [place] CBC W Auto Differential pane l (Bld)on 12-09-2023 Basophils (Bld) [#/Vol] 0.04 10*3/uL Normal <0.11 [facility] Comment on above: Order Comment: Speci men Type: BLOOD SPECIMENOrdering Facility: [facility] Address: [address] [place] [address] Performed By: #### 5 7021-8 ####[facility] [id number] [place] [address] [place] Basophils/100 WBC (Bld) 0.7 % Normal [facility] Comment on above: Order Comment: Speci men Type: BLOOD SPECIMENOrdering Facility: [facility] Address: [address] [place] [address] Performed By: #### 5 7021-8 ####[facility] [id number] [place] [address] [place] Differential cell count method Nom (Bld) Auto Normal [facility] Comment on above: Order Comment: Speci men Type: BLOOD SPECIMENOrdering Facility: [facility] Address: [address] [place] [address] Performed By: #### 5 7021-8 ####[facility] [id number] [place] [address] [place] Eosinophils (Bld) [#/Vol] 0.12 10*3/uL Normal <0.46 [facility] Comment on above: Order Comment: Speci men Type: BLOOD SPECIMENOrdering Facility: [facility] Address: [address] [place] [address] Performed By: #### 5 7021-8 ####[facility] [id number] [place] [address] [place] Eosinophils/100 WBC (Bld) 2.0 % Normal [facility] Comment on above: Order Comment: Speci men Type: BLOOD SPECIMENOrdering Facility: [facility] Address: [address] [place] [address] Performed By: #### 5 7021-8 ####[facility] [id number] [place] [address] [place] Erythrocyte distribution width (RBC) [Ratio] 12.9 % Normal 11.5-15.0 [facility] Comment on above: Order Comment: Speci men Type: BLOOD SPECIMENOrdering Facility: [facility] [facility] Address: [address] [place] [address] Performed By: #### 5 7021-8 ####[facility] [id number] [place] [address] [place] Hematocrit (Bld) [Volume fraction] 42.1 % Normal 36.0-46.0 [facility] Comment on above: Order Comment: Speci men Type: BLOOD SPECIMENOrdering Facility: [facility] Address: [address] [place] [address] Performed By: #### 5 7021-8 ####[facility] [id number] [place] [address] [place] Hemoglobin (Bld) [Mass/Vol] 13.9 g/dL Normal 11.5-15.5 [facility] Comment on above: Order Comment: Speci men Type: BLOOD SPECIMENOrdering Facility: [facility] Address: [address] [place] [address] Performed By: #### 5 7021-8 ####[facility] [id number] [place] [address] [place] Immature granulocytes (Bld) [#/Vol] 10*3/uL Normal <0.10 [facility] Comment on above: Order Comment: Speci men Type: BLOOD SPECIMENOrdering Facility: [facility] Address: [address] [place] [address] Performed By: #### 5 7021-8 ####[facility] [id number] [place] [address] [place] Immature granulocytes/100 WBC (Bld) 0.2 % Normal [facility] Comment on above: Order Comment: Speci men Type: BLOOD SPECIMENOrdering Facility: [facility] Address: [address] [place] [address] Performed By: #### 5 7021-8 ####[facility] [id number] [place] [address] [place] Lymphocytes (Bld) [#/Vol] 1.42 10*3/uL Normal 1.00-4.00 [facility] Comment on above: Order Comment: Speci men Type: BLOOD SPECIMENOrdering Facility: [facility] Address: [address] [place] [address] Performed By: #### 5 7021-8 ####[facility] [id number] [place] [address] [place] Lymphocytes/100 WBC (Bld) 24.1 % Normal [facility] Comment on above: Order Comment: Speci men Type: BLOOD SPECIMENOrdering Facility: [facility] Address: [address] [place] [address] Performed By: #### 5 7021-8 ####[facility] [id number] [place] [address] [place] MCH (RBC) [Entitic mass] 31.7 pg Normal 26.0-34.0 [facility] Comment on above: Order Comment: Speci men Type: BLOOD SPECIMENOrdering Facility: [facility] Address: [address] [place] [address] Performed By: #### 5 7021-8 ####[facility]CL[facility] [id number] [place] [address] [place] MCHC (RBC) [Mass/Vol] 33.0 g/dL Normal 30.5-36.0 [facility] Comment on above: Order Comment: Speci men Type: BLOOD SPECIMENOrdering Facility: [facility] Address: [address] [place] [address] Performed By: #### 5 7021-8 ####[facility]CLIA [id number] [id number] [address] [place] MCV (RBC) [Entitic vol] 96.1 fL Normal 80.0-100.0 [facility] Comment on above: Order Comment: Speci men Type: BLOOD SPECIMENOrdering Facility: [facility] Address: [address] [place] [address] Performed By: #### 5 7021-8 ####[facility]CL[facility] [id number] [place] [address] [place] Monocytes (Bld) [#/Vol] 0.62 10*3/uL Normal <0.87 [facility] Comment on above: Order Comment: Speci men Type: BLOOD SPECIMENOrdering Facility: [facility] Address: [address] [place] [address] Performed By: #### 5 7021-8 ####[facility] [id number] [place] [address] [place] Monocytes/100 WBC (Bld) 10.5 % Normal [facility] Comment on above: Order Comment: Speci men Type: BLOOD SPECIMENOrdering Facility: [facility] Address: [address] [place] [address] Performed By: #### 5 7021-8 ####[facility] [id number] [place] [address] [place] Neutrophils (Bld) [#/Vol] 3.68 10*3/uL Normal 1.45-7.50 [facility] Comment on above: Order Comment: Speci men Type: BLOOD SPECIMENOrdering Facility: [facility] Address: [address] [place] [address] Performed By: #### 5 7021-8 ####[facility] [id number] [place] [address] [place] Neutrophils/100 WBC (Bld) 62.5 % Normal [facility] Comment on above: Order Comment: Speci men Type: BLOOD SPECIMENOrdering Facility: [facility] Address: [address] [place] [address] Performed By: #### 5 7021-8 ####[facility] LABIA [id number] [place] [address] [place] Nucleated RBC (Bld) [#/Vol] 10*3/uL Normal <0.01 [facility] Comment on above: Order Comment: Speci men Type: BLOOD SPECIMENOrdering Facility: [facility] Address: [address] [place] [address] Performed By: #### 5 7021-8 ####[facility] LABIA [id number] [place] [address] [place] Nucleated RBC/100 WBC (Bld) [Ratio] 0.0 /100 WBC Normal [facility] Comment on above: Order Comment: Speci men Type: BLOOD SPECIMENOrdering Facility: [facility] Address: [address] [place] [address] Performed By: #### 5 7021-8 ####[facility] LABIA [id number] [place] [address] [place] Platelet mean volume (Bld) [Entitic vol] 10.0 fL Normal 9.0-12.7 [facility] Comment on above: Order Comment: Speci men Type: BLOOD SPECIMENOrdering Facility: [facility] Address: [address] [place] [address] Performed By: #### 5 7021-8 ####[facility] LABIA [id number] [place] [address] [place] Platelets (Bld) [#/Vol] 276 10*3/uL Normal 150-400 [facility] Comment on above: Order Comment: Speci men Type: BLOOD SPECIMENOrdering Facility: [facility] Address: [address] [place] [address] Performed By: #### 5 7021-8 ####[facility] LABIA [id number] [id number] [address] [place] RBC (Bld) [#/Vol] 4.38 10*6/uL Normal 3.90-5.20 [facility] Comment on above: Order Comment: Speci men Type: BLOOD SPECIMENOrdering Facility: [facility] Address: [address] [place] [address] Performed By: #### 5 7021-8 ####[facility]CL[facility] [id number] [place] [address] [place] WBC (Bld) [#/Vol] 5.89 10*3/uL Normal 3.70-11.00 [facility] Comment on above: Order Comment: Speci men Type: BLOOD SPECIMENOrdering Facility: [facility] Address: [address] [place] [address] Performed By: #### 5 7021-8 ####[facility]IA [id number] [place] [address] [place] CNOVon 12-09-2023 CNOV Normal [facility] Centromere Ab IF Ql (S)on Centromere Ab Qn (S) >8.0 High <1.0 [facility] Comment on above: Order Comment: Speci men Type: BLOOD SPECIMENOrdering Facility: [facility] Address: [address] [place] [address] Result Comment: Anti -centromere antibody is used as in aid in diagnosis of systemic sclerosis. Clinical correlation is required.Test Methodology: Multiplex flow immunoassay. Performed By: #### 1 6570-4 ####[facility] LABIA [id number] [place] [address] [place] CENTROMERE AB QUAL Positive Abnormal Negative [facility] Comment on above: Order Comment: Speci men Type: BLOOD SPECIMENOrdering Facility: [facility] Address: [address] [place] [address] Performed By: #### 1 6570-4 ####[facility] LABIA [id number] [place] [id number] [place] Comprehensive metabolic 2000 panelon 12-09-2023 Albumin [Mass/Vol] 4.3 g/dL Normal 3.9-4.9 [facility] Comment on above: Order Comment: Speci men Type: BLOOD SPECIMEN Ordering Facility: [facility] Address: [address] [place] [address] Performed By: #### 2 4323-8 #### [facility] CLIA [id number] [place] [address] [place] ALP [Catalytic activity/Vol] 47 U/L Normal 34-123 [facility] Comment on above: Order Comment: Speci men Type: BLOOD SPECIMEN Ordering Facility: [facility] Address: [address] [place] [address] Performed By: #### 2 4323-8 #### [facility] IA [id number] [address] [place] [address] [place] ALT [Catalytic activity/Vol] 13 U/L Normal 7-38 [facility] Comment on above: Order Comment: Speci men Type: BLOOD SPECIMEN Ordering Facility: [facility] Address: [address] [place] [address] Performed By: #### 2 4323-8 #### [facility] IA [id number] [address] [place] [address] [place] Anion gap [Moles/Vol] 10 mmol/L Normal 9-18 [facility] Comment on above: Order Comment: Speci men Type: BLOOD SPECIMEN Ordering Facility: [facility] Address: [address] [place] [address] Performed By: #### 2 4323-8 #### [facility] CLIA [id number] [address] [place] [address] [place] AST [Catalytic activity/Vol] 20 U/L Normal 13-35 [facility] Comment on above: Order Comment: Speci men Type: BLOOD SPECIMEN Ordering Facility: [facility] Address: [address] [place] [address] Performed By: #### 2 4323-8 #### [facility] CLIA [id number] [place] [address] [place] Bilirubin [Mass/Vol] 0.3 mg/dL Normal 0.2-1.3 [facility] Comment on above: Order Comment: Speci men Type: BLOOD SPECIMEN Ordering Facility: [facility] Address: [address] [place] [address] Performed By: #### 2 4323-8 #### [facility] IA [id number] [place] [address] [place] Calcium [Mass/Vol] 9.1 mg/dL Normal 8.5-10.2 [facility] Comment on above: Order Comment: Speci men Type: BLOOD SPECIMEN Ordering Facility: [facility] Address: [address] [place] [address] Performed By: #### 2 4323-8 #### [facility] [id number] [address] [place] [address] [place] Chloride [Moles/Vol] 104 mmol/L Normal 97-105 [facility] Comment on above: Order Comment: Speci men Type: BLOOD SPECIMEN Ordering Facility: [facility] Address: [address] [place] [address] Performed By: #### 2 4323-8 #### [facility] [id number] [address] [place] [address] [place] CO2 [Moles/Vol] 26 mmol/L Normal 22-30 [facility] Comment on above: Order Comment: Speci men Type: BLOOD SPECIMEN Ordering Facility: [facility] Address: [address] [place] [address] Performed By: #### 2 4323-8 #### [facility] [id number] [place] [address] [place] Creatinine [Mass/Vol] 0.67 mg/dL Normal 0.58-0.96 [facility] Comment on above: Order Comment: Speci men Type: BLOOD SPECIMEN Ordering Facility: [facility] Address: [address] [place] [address] Performed By: #### 2 4323-8 #### [facility] CLIA [id number] [facility] [place] [address] [place] Creatinine and Glomerular filtration rate.predicted panel (S/P/Bld) 113 mL/min/1.73m??? Normal >=60 [facility] Comment on above: Order Comment: Uday covington Type: BLOOD SPECIMEN Ordering Facility: [facility] Address: [address] [place] [address] Result Comment: Abbey mated Glomerular Filtration Rate (eGFR) is calculated using the 2020 CKD-EPI creatinine equation. This equation utilizes serum creatinine, sex, and age as parameters. The creatinine assay has traceable calibration to isotope dilution-mass spectrometry. Refer to KDIGO guidelines for clinical interpretation. In patients with unstable renal function, e.g. those with acute kidney injury, the eGFR may not accurately reflect actual GFR. Performed By: #### 2 4323-8 #### [facility] CLIA [id number] [facility] [place] [address] [place] Glucose [Mass/Vol] 94 mg/dL Normal 74-99 [facility] Comment on above: Order Comment: Uday covington Type: BLOOD SPECIMEN Ordering Facility: [facility] Address: [address] [place] [address] Result Comment: The [place] [employer] (ADA) provides guidance for cutoff values for fasting glucose and random glucose. The ADA defines fasting as no caloric intake for at least 8 hours. Fasting plasma glucose results between 100 to 125 mg/dL indicate increased risk for diabetes (prediabetes). Fasting plasma glucose results greater than or equal to 126 mg/dL meet the criteria for diagnosis of diabetes. In the absence of unequivocal hyperglycemia, results should be confirmed by repeat testing. In a patient with classic symptoms of hyperglycemia or hyperglycemic crisis, random plasma glucose results greater than or equal to 200 mg/dL meet the criteria for diagnosis of diabetes. Reference: Standards of Medical Care in Diabetes 2016, [place] [employer]. Diabetes Care. 2016.39(Suppl 1). Performed By: #### 2 4323-8 #### [facility] CLIA [id number] [facility] [place] [address] [place] Potassium [Moles/Vol] 4.4 mmol/L Normal 3.7-5.1 [facility] Comment on above: Order Comment: Speci men Type: BLOOD SPECIMEN Ordering Facility: [facility] Address: [address] [place] [address] Performed By: #### 2 4323-8 #### [facility] CLIA [id number] [address] [place] [address] [place] Protein [Mass/Vol] 7.0 g/dL Normal 6.3-8.0 [facility] Comment on above: Order Comment: Speci men Type: BLOOD SPECIMEN Ordering Facility: [facility] Address: [address] [place] [address] Performed By: #### 2 4323-8 #### [facility] CLIA [id number] [place] [address] [place] Sodium [Moles/Vol] 140 mmol/L Normal 136-144 [facility] Comment on above: Order Comment: Speci men Type: BLOOD SPECIMEN Ordering Facility: [facility] Address: [address] [place] [address] Performed By: #### 2 4323-8 #### [facility] CLIA [id number] [address] [place] [address] [place] Urea nitrogen [Mass/Vol] 13 mg/dL Normal 7-21 [facility] Comment on above: Order Comment: Speci men Type: BLOOD SPECIMEN Ordering Facility: [facility] Address: [address] [place] [address] Performed By: #### 2 4323-8 #### [facility] CLIA [id number] [address] [place] [address] [place] HISTORY PHYSICALon HISTORY PHYSICAL HNO ID: [id number] Author: MAURIZIO STINSON PA-C Service: ? Author Type: Physician Screen Stretcher Type: H&P Filed: 12/09/2023 14:27 Note Text: HISTORY AND PHYSICAL EXAMINATION SERVICE DATE: 12/09/2023 SERVICE TIME: 10:48 AM PRIMARY CARE PHYSICIAN: Chris White, Assessment/Plan 1. Pre-op exam Surgery 12/22/2023 2. Nicotine use disorder, F17.2 Quit 10/21/23. Started on nicoderm, nicorette, bupropion (Wellbutrin). 12.5 pack year history 3. Crohn's disease with complication, unspecified gastrointestinal tract location (HCC) 4. S/P small bowel resection Stable in remission on humira, last dose 12/03/23. Denies abdominal pain, nausea, vomiting, diarrhea, constipation, hematochezia, melena. 5. Hypercoagulable state (HCC) Patient thought she had antiphospholipid syndrome but recently saw hematology 10/18/23 and does not have this syndrome. Due to history of smoking and Crohn's was recommended to have anticoagulation postop. Patient denies any blood clots in the past, current blood thinners. Per Dr. Hill 10/18/23 The contribution of an slightly increased antiphospholipid antibody to the risk of postoperative thrombosis is unknown but likely none with the findings in this case. However, based on her history of IBD, and her current smoking, her risk is increased. I recommend mechanical (ICD) prophylaxis while hospitalized, plus low-dose anticoagulation with either Lovenox, 40 mg daily, or Eliquis, 2.5 mg BID for 7-10 days postop METS: Gym classes 5 days week for 1 hour Climb a flight of stairs or walk up a hill (5.50 METs) Do heavy work around the house, such as scrubbing floors, lifting or moving heavy furniture (8.00 METs) Patient denies any chest pain or undue shortness of breath with the above physical activity. ANESTHESIA FINDINGS: Intubation History: No history of difficult intubation Significant Anesthesia Considerations: None Airway Exam: General: Normal appearance Mallampati Score is CLASS II ULBT: Class II - Lower incisors can bite the upper lip below the melinda line Neck: Normal appearance and function, Distance from hyoid to mentum during neck extension is at least 3 finger breaths Mouth: Normal tongue size and Mouth opening greater than 2 finger breaths Dentition: Intact Airway History: No history of difficult intubation STOP BANG Score: Criteria: Snoring Score = 1 REASON FOR VISIT: Jocelyne Lucas is a 38 year old year old female who is scheduled for Bilateral - LAPAROSCOPIC HYSTERECTOMY TOTAL FOR UTERUS 250G OR LESS LAPAROSCOPY WITH EXCISION OF ENDOMETRIAL LESIONS PELVIS at the request of Adrien Davis MD for consultation. My final recommendation will be communicated back to the requesting physician by way of shared medical record or letter. 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 Patient has history of Crohn's status post small bowel resection 01/2023. During bowel surgery she was found to have endometriosis, colon. Patient reports that she does have some bloating but attributed this to the Crohn's disease. Denies any current pelvic pain, cramping, discomfort, abnormal vaginal odor or discharge. Denies chance of . Patient has been recommended for above surgery. PAST MEDICAL HISTORY Diagnosis Date Crohn's disease (HCC) Raynaud's syndrome PAST SURGICAL HISTORY Procedure Laterality Date BOWEL RESECTION HX 01/2023 RESECTION BOWEL SMALL COLONOSCOPY SCREENING 08/2023 PAST SURGICAL HISTORY OF 2 C sections 2008, 2011 FAMILY HISTORY Problem Relation Age of Onset Heart Father Hypertension Father Cataract Father Heart Maternal Grandmother Macular Degen Maternal Grandmother Cataract Paternal Grandfather SOCIAL HISTORY: Social History Tobacco Use Smoking status: Former Packs/day: 0.50 Years: 25.00 Additional pack years: 0.00 Total pack years: 12.50 Types: Cigarettes Quit date: 10/21/2023 Years since quittin.1 Passive exposure: Current Smokeless tobacco: Never Vaping Use Vaping Use: Never used Substance Use Topics Alcohol use: Yes Comment: 2 drinks a week Drug use: Never MEDICATIONS: Prior to Admission medications as of 12/09/23 1049 Medication Sig Last Dose Taking buPROPion SR (WELLBUTRIN SR) 150 mg 12 hr tablet Take 1 tablet by mouth two times a day. Taking Yes 25/iron fum/folic/dha (-1 ORAL) Take by mouth. Taking Yes COLLAGEN MISC Taking Yes adalimumab 40 mg/0.4 mL subcutaneous pen kit (HUMIRA (CF)) Inject 40 mg (1 pen) subcutaneously every 2 weeks. Taking Y (more content not included)... Normal [facility] PT panel Coag (PPP)on 2023 INR Coag (PPP) [Relative time] 1.0 {INR} Normal 0.9-1.3 [facility] Comment on above: Order Comment: Uday covington Type: BLOOD SPECIMENOrdering Facility: [facility] Address: [address] [place] [address] Result Comment: An min K Antagonist (VKA) Therapeutic Range: INR 2 to 3 (Target INR of 2.5)Note: For patients treated with VKA drugs, such as warfarin, the [place] [employer] 2012 Guideline recommends a therapeutic INR range of 2 to 3 (target INR of 2.5). This recommendation includes high-risk patients with antiphospholipid syndrome with previous arterial or venous thromboembolism, current-generation mechanical or bioprosthetic aortic heart valve replacement.Note: Patients with mechanical aortic valve replacement and additional risk factors for thromboembolic events (atrial fibrillation, previous thromboembolism, LV dysfunction, hypercoagulable conditions) or an older generation mechanical AVR (i.e., ball in-Cage) or any mechanical MVR should have a INR therapeutic range of 2.5 to 3.5 (target INR of 3).Hussein GH, et al. Chest 2012, 141:7S-47SNishjesenia RA, et al. [facility] 2017, 70: 252-289 Performed By: #### 3 4528-0 ####[facility] [id number] [place] [address] [place] PT Coag (PPP) [Time] 10.4 s Normal 9.7-13.0 [facility] Comment on above: Order Comment: Uday covington Type: BLOOD SPECIMENOrdering Facility: [facility] Address: [address] [place] [address] Performed By: #### 3 4528-0 ####[facility] [id number] [place] [address] [place] TYPE AND SCREEN,30 DAYon ABO B Normal [facility] Comment on above: Order Comment: Uday covington Type: BLOOD SPECIMENOrdering Facility: [facility] Address: [address] [place] [address] Performed By: #### T SCR30 ####[facility]ANKCL[facility] [id number] [place] [address] [place] HISTORICAL AB SCR STATUS Negative Normal [facility] Comment on above: Order Comment: Speci men Type: BLOOD SPECIMENOrdering Facility: [facility] Address: [address] [place] [address] Performed By: #### T SCR30 ####[facility]ANKCL[facility] [id number] [place] [address] [place] Rh Nom (Bld) Positive Normal [facility] Comment on above: Order Comment: Speci men Type: BLOOD SPECIMENOrdering Facility: [facility] Address: [address] [place] [address] Performed By: #### T SCR30 ####[facility]ANK[facility] [id number] [place] [address] [place] CNPNon 12-02-2023 CNPN Normal [facility] CNOVon 11-23-2023 CNOV Normal [facility] CNPNon 10-24-2023 CNPN Normal [facility] CNOVon 10-18-2023 CNOV Normal [facility] CNOVSPon 10-18-2023 CNOVSP Normal [facility] CNPNon 10-04-2023 CNPN Normal [facility] CNOVon 09-29-2023 CNOV Normal [facility] CNOVon 09-23-2023 CNOV Normal [facility] ANES POSTPROC EVALon 023 ANES POSTPROC EVAL Normal [facility] ANES PRE-OPon 09-22-2023 ANES PRE-OP Normal [facility] HISTORY PHYSICALon HISTORY PHYSICAL Normal [facility] NURSING PROGon 09-22-2023 NURSING PROG Normal [facility] NURSING PROG Normal [facility] SURGICAL PATHOLOGYon 023 CASE REPORT Normal [facility] Comment on above: Order Comment: Speci men Type: TISSUE SPECIMENOrdering Facility: [facility] [facility] Address: [address] [place] [address] Result Comment: [facility] Pathology Report Case: [id number] Provider: Lamont Brown MD Collected: 09/22/2023 02:19 PMOrdering Location: Gastroenterology Received: 09/22/2023 04:58 PMPathologist: Shamir Cravajal MD, PhDSpecimens: A) - ILEUM BIOPSY, hx crohns r/o active disease B) - TRANSVERSE COLON BIOPSY, hx crohns r/o active disease C) - COLON LEFT BIOPSY, hx crohns r/o active disease D) - RECTAL BIOPSY, hx crohns r/o active disease Performed By: #### S ####[facility] LABCLIA [id number] [address] FINAL DIAGNOSIS Normal [facility] Comment on above: Order Comment: Speci men Type: TISSUE SPECIMENOrdering Facility: [facility] Address: [address] [place] [address] Result Comment: A. I leum, biopsy:- Small intestinal mucosa with mild reactive changes.- No evidence of significant active inflammation, granulomas or dysplasia.B-D. Colon, transverse, left and rectum, biopsies:- Colonic mucosa with no significant diagnostic abnormality.- No evidence of granulomas or dysplasia. Performed By: #### S ####[facility] LABCLIA [id number] [address] OF [facility] FINAL PERFORMING LAB Normal [facility] Comment on above: Order Comment: Speci men Type: TISSUE SPECIMENOrdering Facility: [facility] Address: [address] [place] [address] Result Comment: Diag nostic interpretation performed at [facility], [address] [address] CLIA# [id number] Director: Scot Poole M.D. Performed By: #### S ####[facility] LABCLIA [id number] [address] [place] GROSS DESCRIPTION A. ILEUM BIOPSY Normal [facility] Comment on above: Order Comment: Speci men Type: TISSUE SPECIMENOrdering Facility: [facility] Address: [address] [place] [address] Result Comment: Rece ived in formalin are two pieces of claire, soft tissue aggregating to 1.1 x 0.2 x 0.2 cm. Totally submitted in one cassette.B. TRANSVERSE COLON BIOPSYReceived in formalin are two pieces of claire, soft tissue aggregating to 0.7 x 0.2 x 0.2 cm. Totally submitted in one cassette.C. COLON LEFT BIOPSYReceived in formalin are multiple pieces of claire, soft tissue aggregating to 1.0 x 0.2 x 0.2 cm. Totally submitted in one cassette.D. RECTAL BIOPSYReceived in formalin are multiple pieces of claire, soft tissue aggregating to 0.9 x 0.2 x 0.2 cm. Totally submitted in one cassette.SS September 22, 2023 10:31 PMGross examination performed at [facility], [address] [place] [address] Performed By: #### S ####[facility] LABCLIA [id number] [place] [address] [place] CNPNon 09-20-2023 CNPN Normal [facility] CNPNon 09-16-2023 CNPN Normal [facility] CNPNon 09-15-2023 CNPN Normal [facility] CNOVon 09-14-2023 CNOV Normal [facility] CNPNon 09-14-2023 CNPN Normal [facility] CNOVon 09-05-2023 CNOV Normal [facility] ADALIMUMAB ACTIVITY AND NEUT RALIZING ANTIBODYon 07-12-2023 ADALIMUMAB ACTIVITY 13.08 ug/mL Normal >=0.65 [facility] Comment on above: Order Comment: Speci men Type: BLOOD SPECIMENOrdering Facility: [facility] Address: [address] [place], [place] [address] Result Comment: INTE RPRETIVE INFORMATION: Adalimumab Activity and Neutralizing AbThis test measures the capacity of adalimumab to neutralize TNFactivity. Additionally, adalimumab neutralizing antibodies (NAb)are titered, reporting the minimal serum dilution at whichblocking of adalimumab activity is no longer observed.This test is used to evaluate secondary response failures toadalimumab therapy. Secondary response failure is defined as lossof clinical response after initial improvement of clinical signsand symptoms. Therapeutic decision should rest on both theclinical response and the knowledge of the fate of the drugincluding the emergence of immunogenicity in individual patients.Circulating adalimumab levels have been shown to vary considerablybetween patients. These differences relate to route and frequencyof administration and patient-related features such as age,gender, weight, drug metabolism, and concomitant medications suchas methotrexate and other immunosuppressants.Clinical Interpretation of Adalimumab and Antibody Testing Resultsin the Context of Treatment FailureAdalimumab Adalimumab InterpretationActivity Neutralizing Antibody TiterNot Detected Not Detected Sub-therapeutic dose. A higher dosage of adalimumab or shortening the dosing interval may be appropriate.Not Detected Detected Likely immune-mediated treatment failure. A change to another anti-TNF drug may be appropriate.Detected - N/A Sub-therapeutic dose. ABelow Target* higher dosage of adalimumab or shortening the dosing interval may be appropriate.Detected - N/A A change to another typeAbove Target* of therapy (not targeting TNF) may be appropriate if patient is not responding.* AGA recommended target trough concentration for reactivemonitoring of patients with active IBD on maintenance therapy is7.5 ug/mL or greater for adalimumab (Venkat WILCOX et al,Gastroenterology 2017; 153:827-834). The AGA makes norecommendation regarding the use of routine, proactive therapeuticdrug monitoring in adults with quiescent IBD treated with anti-TNFagents.This test was developed and its performance characteristicsdetermined by [employer]. It has not been cleared orapproved by the [place] Food and Drug Administration. This test wasperformed in a CLIA certified laboratory and is intended forclinical purposes. Performed By: #### A TAMIKA ####DOMINGA FlxOneIA [id number] [place] [address] ADALIMUMAB NEUTRALIZING ANTIBODY Not detected Normal Not Detected [facility] Comment on above: Order Comment: Speci men Type: BLOOD SPECIMENOrdering Facility: [facility] Address: [address] [place] [address] Performed By: #### A TAMIKA ####[facility] LABORATORIESCLIA [id number] [place] [address] EER ADALIMUMAB See Note Normal [facility] Comment on above: Order Comment: Speci men Type: BLOOD SPECIMENOrdering Facility: [facility] Address: [address] [place] [address] Result Comment: Auth orized individuals can access the [facility] Report using the following link:[email or web address] By: DOMINGA [email or web address] [place], [place] [address]Nqzzjmghlg Director: Ivan Sellers MD, PhDCLIA Number: [id number] Performed By: #### A TAMIKA ####[facility] LABORATORIESCLIA [id number] [place] [address] MRI FEMALE PELVIS WO/W IVCON on 07-12-2023 MRI FEMALE PELVIS WO/W IVCON Normal [facility] BETA 2 GLYCOPROTEIN, IGGon 0 05-20-2023 Beta 2 glycoprotein 1 IgG IA Qn <9 Normal <20 [facility] Comment on above: Order Comment: Speci men Type: BLOOD SPECIMENOrdering Facility: [facility] Address: [address] [place] [address] Result Comment: <20 SGU Nclyigxp26-37 SGU Low Positive>80 SGU High PositiveThese results were obtained with the [employer] QUANTA Lite B2 GPI IgG DONTRELL. B2 GPI IgG values obtained with different manufacturers' assay methods may not be used interchangeably. The magnitude of the reported IgG levels cannot be correlated to an endpoint titer. Performed By: #### B ETA2G, BETA2M, 5076-5, CARDITYLER BarreraM ####[facility] LABCLIA [id number] [facility] [id number] [place] [address] [place] BETA 2 GLYCOPROTEIN, IGMon 0 05-20-2023 Beta 2 glycoprotein 1 IgM IA Qn 23 SMU High <20 [facility] Comment on above: Order Comment: Speci men Type: BLOOD SPECIMENOrdering Facility: [facility] Address: [address] [place] [address] Result Comment: <20 SMU Wdxzvops57-39 SMU Low Positive>80 SMU High positiveThese results were obtained with the [employer] QUANTA Lite B2 GPI IgM DONTRELL. B2 GPI IgM values obtained with different manufacturers' assay methods may not be used interchangeably. The magnitude of the reported IgM levels cannot be correlated to an endpoint titer. Performed By: #### B SANDEEP JEFFERSON, 5076-5, WARNER JEROME ####[facility] LABIA [id number] [address] [place] CARDIOLIPIN IGG ABSon 2022 Cardiolipin IgG IA Qn (S) <9.0 Normal <15.0 [facility] Comment on above: Order Comment: Speci men Type: BLOOD SPECIMENOrdering Facility: [facility] Address: [address] [place] [address] Result Comment: <15 GPL [id number] GPL Indeterminate>20 GPL PositiveThe following results were obtained with the [employer] QUANTA Lite HARPREET IgG III DONTRELL. Cardiolipin IgG values obtained with the different manufacturers' assay methods may not be used interchangeably. The magnitude of the reported IgG levels cannot be correlated to an endpoint titer. Performed By: #### B SANDEEP JEFFERSON, 5076-5, WARNER JEROME ####[facility] LABIA [id number] [address] [place] CARDIOLIPIN IGM ABSon 2022 Cardiolipin IgM IA Qn (S) <9.0 Normal <12.5 [facility] Comment on above: Order Comment: Speci men Type: BLOOD SPECIMENOrdering Facility: [facility] Address: [address] [place] [address] Result Comment: <12. 5 MPL Otggikom52.5-20 MPL Indeterminate>20 MPL PositiveThe following results were obtained with the [employer] QUANTA Lite HARPREET IgM III DONTRELL. Cardiolipin IgM values obtained with the different manufacturers' assay methods may not be used interchangeably. The magnitude of the reported IgM levels cannot be correlated to an endpoint titer.??? Performed By: #### B ETA2G, BETA2M, 5076-5, WARNER JEROME ####[facility] LABIA [id number] [address] [place] CNOVon 05-20-2023 CNOV Normal [facility] Cardiolipin IgA Ser IA-aCnco n 05-20-2023 Cardiolipin IgA IA Qn (S) <9.0 Normal <12.0 [facility] Comment on above: Order Comment: Speci men Type: BLOOD SPECIMENOrdering Facility: [facility] Address: [address] [place] [address] Result Comment: <12 APL Xmlipege12-00 APL Indeterminate>20 APL PositiveThe following results were obtained with the [employer] Lite HARPREET IgA III DONTRELL. Cardiolipin IgA values obtained with the different manufacturers' assay methods may not be used interchangeably. The magnitude of the reported IgA levels cannot be correlated to an endpoint titer. Performed By: #### B ETA2G, BETA2M, 5076-5, WARNER JEROME ####[facility] [id number] [place] [address] [place] LUPUS PANELon 05-20-2023 aPTT Coag (Bld) [Time] 30.2 s Normal 24.0-35.1 [facility] Comment on above: Order Comment: Speci men Type: BLOOD SPECIMENOrdering Facility: [facility] Address: [address] [place] [address] Performed By: #### L UPPL ####[facility] [id number] [address] [place] aPTT W excess hexagonal phase phospholipid Coag (PPP) [Time] 42.4 seconds Normal 34.0-51.8 [facility] Comment on above: Order Comment: Speci men Type: BLOOD SPECIMENOrdering Facility: [facility] Address: [address] [place] [address] Performed By: #### L UPPL ####[facility] LABIA [id number] [place] [address] [place] Delta dRVVT Coag (PPP) [Time diff] 0.0 delta seconds Normal <7.1 [facility] Comment on above: Order Comment: Speci men Type: BLOOD SPECIMENOrdering Facility: [facility] Address: [address] [place] [address] Performed By: #### L UPPL ####[facility] [id number] [address] [place] dRVVT Coag (PPP) [Time] 30.9 s Low 32.0-45.7 [facility] Comment on above: Order Comment: Speci men Type: BLOOD SPECIMENOrdering Facility: [facility] Address: [address] [place] [address] Performed By: #### L UPPL ####[facility] [id number] [address] [place] dRVVT factor substitution immediately after 1:2 addition of normal plasma Coag (PPP) [Time] 33.5 seconds Normal 32.0-45.7 [facility] Comment on above: Order Comment: Speci men Type: BLOOD SPECIMENOrdering Facility: [facility] Address: [address] [place], [place] [address] Performed By: #### L UPPL ####[facility] [id number] [address] [place] dRVVT W excess hexagonal phase phospholipid actual/normal Coag (PPP) [Relative time] 43.1 seconds Normal 34.2-47.9 [facility] Comment on above: Order Comment: Speci men Type: BLOOD SPECIMENOrdering Facility: [facility] Address: [address] [place] [address] Performed By: #### L UPPL ####[facility]SPR[facility] [id number] [address] dRVVT/dRVVT.excess phospholipid Coag (PPP) [Ratio] 1.03 Normal <1.32 [facility] Comment on above: Order Comment: Speci men Type: BLOOD SPECIMENOrdering Facility: [facility] Address: [address] [place] [address] Performed By: #### L UPPL ####[facility] LABCLIA [id number] [address] Lupus anticoagulant neutralization platelet Coag Ql (PPP) Negative Normal Negative [facility] Comment on above: Order Comment: Speci men Type: BLOOD SPECIMENOrdering Facility: [facility] Address: [address] [place] [address] Performed By: #### L UPPL ####[facility] LABIA [id number] [address] OF [facility] Thrombin time Coag (PPP) [Time] <16.8 Normal <18.6 [facility] Comment on above: Order Comment: Speci men Type: BLOOD SPECIMENOrdering Facility: [facility] Address: [address] [place] [address] Performed By: #### L UPPL ####[facility] LABIA [id number] [address] [place] PT panel Coag (PPP)on 2022 INR Coag (PPP) [Relative time] 1.0 {INR} Normal 0.9-1.3 [facility] Comment on above: Order Comment: Speci men Type: BLOOD SPECIMENOrdering Facility: [facility] Address: [address] [place] [address] Result Comment: An min K Antagonist (VKA) Therapeutic Range: INR 2 to 3 (Target INR of 2.5)Note: For patients treated with VKA drugs, such as warfarin, the [place] [employer] 2012 Guideline recommends a therapeutic INR range of 2 to 3 (target INR of 2.5). This recommendation includes high-risk patients with antiphospholipid syndrome with previous arterial or venous thromboembolism, current-generation mechanical or bioprosthetic aortic heart valve replacement.Note: Patients with mechanical aortic valve replacement and additional risk factors for thromboembolic events (atrial fibrillation, previous thromboembolism, LV dysfunction, hypercoagulable conditions) or an older generation mechanical AVR (i.e., ball in-Cage) or any mechanical MVR should have a INR therapeutic range of 2.5 to 3.5 (target INR of 3).Hussein GH, et al. Chest 2012, 141:7S-47SNishimura RA, et al. [facility] 2017, 70: 252-289 Performed By: #### 3 4528-0, 95785-6 ####[facility] LABIA [id number] [place] [address] [place] PT Coag (PPP) [Time] 9.9 s Normal 9.7-13.0 [facility] Comment on above: Order Comment: Speci men Type: BLOOD SPECIMENOrdering Facility: [facility] Address: [address] [place] [address] Performed By: #### 3 4528-0, 45166-8 ####[facility] [id number] [address] [place] aPTT PPPon 05-20-2023 aPTT Coag (PPP) [Time] 27.8 s Normal 23.0-32.4 [facility] Comment on above: Order Comment: Speci men Type: BLOOD SPECIMENOrdering Facility: [facility] Address: [address] [place] [address] Performed By: #### 3 4528-0, 83611-0 ####[facility] LABIA [id number] [place] [address] [place] CNOVon 05-19-2023 CNOV Normal [facility] CNPNon 05-11-2023 CNPN Normal [facility] CNCOon 03-24-2023 CNCO Letter Text Normal [facility] ALLIED HEALTHon 03-08-2023 ALLIED HEALTH Normal [facility] Basic metabolic 2000 panelon 03-08-2023 Anion gap [Moles/Vol] 10 mmol/L Normal 9-18 [facility] Comment on above: Order Comment: Speci men Type: BLOOD SPECIMENOrdering Facility: [facility] Address: [address] [id number] Performed By: #### 1 9123-9, 2777-1, 27176-9 ####[facility] LABCLIA [id number] [place] [address] [place] Calcium [Mass/Vol] 8.8 mg/dL Normal 8.5-10.2 [facility] Comment on above: Order Comment: Speci men Type: BLOOD SPECIMENOrdering Facility: [facility] Address: [address] [place], [place] [address] Performed By: #### 1 9123-9, 2777-, 27902-7 ####[facility] LABCLIA [id number] [place] [address] [place] Chloride [Moles/Vol] 105 mmol/L Normal 97-105 [facility] Comment on above: Order Comment: Speci men Type: BLOOD SPECIMENOrdering Facility: [facility] Address: [address] [place], [place] [address] Performed By: #### 1 9123-9, 27771, 59499-0 ####[facility] LABCLIA [id number] [place] [address] [place] CO2 [Moles/Vol] 24 mmol/L Normal 22-30 [facility] Comment on above: Order Comment: Speci men Type: BLOOD SPECIMENOrdering Facility: [facility] Address: [address] [place] [address] Performed By: #### 1 9123-9, 2777-1, 96658-3 ####[facility] LABCLIA [id number] [address] [address] [place] Creatinine [Mass/Vol] 0.72 mg/dL Normal 0.58-0.96 [facility] Comment on above: Order Comment: Uday covington Type: BLOOD SPECIMENOrdering Facility: [facility] Address: [address] [place], [place] [phone] Performed By: #### 1 9123-9, 2777-1, 45915-7 ####[facility] LABCLIA [id number] [address] ESTIMATED GLOMERULAR FILTRATION RATE 109 mL/min/1.73m??? Normal >=60 [facility] Comment on above: Order Comment: Uday covington Type: BLOOD SPECIMENOrdering Facility: [facility] Address: [address] [place], [place] [address] Result Comment: Abbey mated Glomerular Filtration Rate (eGFR) is calculated using the 2020 CKD-EPI creatinine equation. This equation utilizes serum creatinine, sex, and age as parameters. The creatinine assay has traceable calibration to isotope dilution-mass spectrometry. Refer to KDIGO guidelines for clinical interpretation. In patients with unstable renal function, e.g. those with acute kidney injury, the eGFR may not accurately reflect actual GFR. Performed By: #### 1 9123-9, 2777-, 21277-9 ####[facility] LABCLIA [id number] [address] [place] Glucose [Mass/Vol] 87 mg/dL Normal 74-99 [facility] Comment on above: Order Comment: Uday covington Type: BLOOD SPECIMENOrdering Facility: [facility] Address: [address] [place], [place] [address] Result Comment: The [place] Diabetes Association (ADA) provides guidance for cutoff values for fasting glucose and random glucose. The ADA defines fasting as no caloric intake for at least 8 hours. Fasting plasma glucose results between 100 to 125 mg/dL indicate increased risk for diabetes (prediabetes).Fasting plasma glucose results greater than or equal to 126 mg/dL meet the criteria for diagnosis of diabetes. In the absence of unequivocal hyperglycemia, results should be confirmed by repeat testing. In a patient with classic symptoms of hyperglycemia or hyperglycemic crisis, random plasma glucose results greater than or equal to 200 mg/dL meet the criteria for diagnosis of diabetes.Reference: Standards of Medical Care in Diabetes 2016, [place] [employer] Association. Diabetes Care. 2016.39(Suppl 1). Performed By: #### 1 9123-9, 2776-11, 91864-8 ####[facility] LABCLIA [id number] [address] [address] [place] Potassium [Moles/Vol] 3.9 mmol/L Normal 3.7-5.1 [facility] Comment on above: Order Comment: Speci men Type: BLOOD SPECIMENOrdering Facility: [facility] Address: [address] Performed By: #### 1 9123-9, 2776-11, ####[facility] LABCLIA [id number] [place] [address] [place] Sodium [Moles/Vol] 139 mmol/L Normal 136-144 [facility] Comment on above: Order Comment: Speci men Type: BLOOD SPECIMENOrdering Facility: [facility] Address: [address] Performed By: #### 1 9123-9, 2776-11, ####[facility] LABCLIA [id number] [place] [address] [place] Urea nitrogen [Mass/Vol] 5 mg/dL Low 7-21 [facility] Comment on above: Order Comment: Speci men Type: BLOOD SPECIMENOrdering Facility: [facility] Address: [address] Performed By: #### 1 9123-9, 2776-11, ####[facility] LABCLIA [id number] [address] [address] [place] CBC panel Auto (Bld)on 03-08 Erythrocyte distribution width (RBC) [Ratio] 13.2 % Normal 11.5-15.0 [facility] Comment on above: Order Comment: Speci men Type: BLOOD SPECIMENOrdering Facility: [facility] Address: [address] Performed By: #### 5 8410-2 ####[facility] LABCLIA [id number] [address] [place] Hematocrit (Bld) [Volume fraction] 37.1 % Normal 36.0-46.0 [facility] Comment on above: Order Comment: Speci men Type: BLOOD SPECIMENOrdering Facility: [facility] Address: [address] [place] [address] Performed By: #### 5 8410-2 ####[facility] LABIA [id number] [address] [place] Hemoglobin (Bld) [Mass/Vol] 12.0 g/dL Normal 11.5-15.5 [facility] Comment on above: Order Comment: Speci men Type: BLOOD SPECIMENOrdering Facility: [facility] Address: [address] [place] [address] Performed By: #### 5 8410-2 ####[facility] LABIA [id number] [address] [place] MCH (RBC) [Entitic mass] 29.6 pg Normal 26.0-34.0 [facility] Comment on above: Order Comment: Speci men Type: BLOOD SPECIMENOrdering Facility: [facility] Address: [address] Performed By: #### 5 8410-2 ####[facility]IA [id number] [address] [place] MCHC (RBC) [Mass/Vol] 32.3 g/dL Normal 30.5-36.0 [facility] Comment on above: Order Comment: Speci men Type: BLOOD SPECIMENOrdering Facility: [facility] Address: [address] [place], [place] [address] Performed By: #### 5 8410-2 ####[facility] LABCLIA [id number] [place] [address] [place] MCV (RBC) [Entitic vol] 91.6 fL Normal 80.0-100.0 [facility] Comment on above: Order Comment: Speci men Type: BLOOD SPECIMENOrdering Facility: [facility] Address: [address] [place] [address] Performed By: #### 5 8410-2 ####[facility] [id number] [place] [address] [place] Nucleated RBC (Bld) [#/Vol] 10*3/uL Normal <0.01 [facility] Comment on above: Order Comment: Speci men Type: BLOOD SPECIMENOrdering Facility: [facility] Address: [address] Performed By: #### 5 8410-2 ####[facility] [id number] [place] [address] [place] Platelet mean volume (Bld) [Entitic vol] 9.9 fL Normal 9.0-12.7 [facility] Comment on above: Order Comment: Speci men Type: BLOOD SPECIMENOrdering Facility: [facility] Address: [address] [place], [place] Performed By: #### 5 8410-2 ####[facility] [id number] [place] [address] [place] Platelets (Bld) [#/Vol] 253 10*3/uL Normal 150-400 [facility] Comment on above: Order Comment: Speci men Type: BLOOD SPECIMENOrdering Facility: [facility] Address: [address] [place] [address] Performed By: #### 5 8410-2 ####[facility] [id number] [address] [place] RBC (Bld) [#/Vol] 4.05 10*6/uL Normal 3.90-5.20 [facility] Comment on above: Order Comment: Speci men Type: BLOOD SPECIMENOrdering Facility: [facility] Address: [address] [place] [address] Performed By: #### 5 8410-2 ####[facility] [id number] [address] [place] WBC (Bld) [#/Vol] 3.20 10*3/uL Low 3.70-11.00 [facility] Comment on above: Order Comment: Speci men Type: BLOOD SPECIMENOrdering Facility: [facility] Address: [address] [place] [address] Performed By: #### 5 8410-2 ####[facility] [id number] [address] [place] ED NOTEon 03-08-2023 ED NOTE HNO ID: [id number] Author: Tacho Cr RN Service: Emergency Medicine Author Type: Registered Nurse Type: ED Notes Filed: 03/07/2023 11:05 PM Note Text: Report to TAYLA Lam Normal [facility] Magnesium SerPl-mCncon 03-08 Magnesium [Mass/Vol] 2.0 mg/dL Normal 1.7-2.3 [facility] Comment on above: Order Comment: Speci men Type: BLOOD SPECIMENOrdering Facility: [facility] Address: [address] [place] [address] Performed By: #### 1 9123-9, 2777-1, 66923-0 ####[facility] [id number] [address] [place] Phosphate SerPl-mCncon 03-08 Phosphate [Mass/Vol] 4.0 mg/dL Normal 2.7-4.8 [facility] Comment on above: Order Comment: Speci men Type: BLOOD SPECIMENOrdering Facility: [facility] Address: [address] [place] [address] Performed By: #### 1 9123-9, 2777-1, 47958-5 ####[facility] [id number] [place] [address] [place] Bacteria Bld Culton 03-07-20 23 Bacteria identified Cx Nom (Bld) CULTURE, BLOOD: No growth 5 days Normal [facility] Comment on above: Performed By: #### 6 00-7 ####[facility] [id number] [address] [place] Bacteria identified Cx Nom (Bld) CULTURE, BLOOD: No growth 5 days Normal [facility] Comment on above: Performed By: #### 6 00-7 ####[facility] [id number] [place] [address] [place] CBC W Auto Differential pane l (Bld)on 03-07-2023 Basophils (Bld) [#/Vol] 0.03 10*3/uL Normal <0.11 [facility] Comment on above: Order Comment: Speci men Type: BLOOD SPECIMENOrdering Facility: [facility] Address: [address] [place] [address] Performed By: #### 5 7021-8 ####[facility] [id number] [place] [address] [place] Basophils/100 WBC (Bld) 0.5 % Normal [facility] Comment on above: Order Comment: Speci men Type: BLOOD SPECIMENOrdering Facility: [facility] Address: [address] [place] [address] Performed By: #### 5 7021-8 ####[facility] [id number] [address] [place] Differential cell count method Nom (Bld) Auto Normal [facility] Comment on above: Order Comment: Speci men Type: BLOOD SPECIMENOrdering Facility: [facility] Address: [address] Performed By: #### 5 7021-8 ####[facility] [id number] [place] [address] [place] Eosinophils (Bld) [#/Vol] 0.15 10*3/uL Normal <0.46 [facility] Comment on above: Order Comment: Speci men Type: BLOOD SPECIMENOrdering Facility: [facility] Address: [address] Performed By: #### 5 7021-8 ####[facility] [id number] [address] [place] Eosinophils/100 WBC (Bld) 2.7 % Normal [facility] Comment on above: Order Comment: Speci men Type: BLOOD SPECIMENOrdering Facility: [facility] Address: [address] [place], [place] [address] Performed By: #### 5 7021-8 ####[facility] [id number] [place] [address] [place] Erythrocyte distribution width (RBC) [Ratio] 13.0 % Normal 11.5-15.0 [facility] Comment on above: Order Comment: Speci men Type: BLOOD SPECIMENOrdering Facility: [facility] Address: [address] Performed By: #### 5 7021-8 ####[facility] [id number] [address] [place] Hematocrit (Bld) [Volume fraction] 39.2 % Normal 36.0-46.0 [facility] Comment on above: Order Comment: Speci men Type: BLOOD SPECIMENOrdering Facility: [facility] Address: [address] Performed By: #### 5 7021-8 ####[facility] [id number] [place] [address] [place] Hemoglobin (Bld) [Mass/Vol] 13.2 g/dL Normal 11.5-15.5 [facility] Comment on above: Order Comment: Speci men Type: BLOOD SPECIMENOrdering Facility: [facility] Address: [address] [place], [place] [address] Performed By: #### 5 7021-8 ####[facility] [id number] [place] [address] [place] Immature granulocytes (Bld) [#/Vol] 0.04 10*3/uL Normal <0.10 [facility] Comment on above: Order Comment: Speci men Type: BLOOD SPECIMENOrdering Facility: [facility] Address: [address] [place], [place] [address] Performed By: #### 5 7021-8 ####[facility] [id number] [place] [address] [place] Immature granulocytes/100 WBC (Bld) 0.7 % Normal [facility] Comment on above: Order Comment: Speci men Type: BLOOD SPECIMENOrdering Facility: [facility] Address: [address] [place], [place] [address] Performed By: #### 5 7021-8 ####[facility] [id number] [place] [address] [place] Lymphocytes (Bld) [#/Vol] 0.39 10*3/uL Low 1.00-4.00 [facility] Comment on above: Order Comment: Speci men Type: BLOOD SPECIMENOrdering Facility: [facility] Address: [address] [place], [place] [address] Performed By: #### 5 7021-8 ####[facility] [id number] [place] [address] [place] [facility] Lymphocytes/100 WBC (Bld) 7.0 % Normal [facility] Comment on above: Order Comment: Speci men Type: BLOOD SPECIMENOrdering Facility: [facility] Address: [address] [place], [place] [address] Performed By: #### 5 7021-8 ####[facility] [id number] [address] [place] [facility] MCH (RBC) [Entitic mass] 30.2 pg Normal 26.0-34.0 [facility] Comment on above: Order Comment: Speci men Type: BLOOD SPECIMENOrdering Facility: [facility] Address: [address] [place], [place] [address] Performed By: #### 5 7021-8 ####[facility] [id number] [address] [place] MCHC (RBC) [Mass/Vol] 33.7 g/dL Normal 30.5-36.0 [facility] Comment on above: Order Comment: Speci men Type: BLOOD SPECIMENOrdering Facility: [facility] Address: [address] [place], [place] [address] Performed By: #### 5 7021-8 ####[facility] [id number] [address] [place] MCV (RBC) [Entitic vol] 89.7 fL Normal 80.0-100.0 [facility] Comment on above: Order Comment: Speci men Type: BLOOD SPECIMENOrdering Facility: [facility] Address: [address] [place], [place] [address] Performed By: #### 5 7021-8 ####[facility] [id number] [address] [place] Monocytes (Bld) [#/Vol] 0.59 10*3/uL Normal <0.87 [facility] Comment on above: Order Comment: Speci men Type: BLOOD SPECIMENOrdering Facility: [facility] Address: [address] Performed By: #### 5 7021-8 ####[facility] [id number] [address] [place] Monocytes/100 WBC (Bld) 10.5 % Normal [facility] Comment on above: Order Comment: Speci men Type: BLOOD SPECIMENOrdering Facility: [facility] Address: [address] Performed By: #### 5 7021-8 ####[facility] [id number] [place] [address] [place] Neutrophils (Bld) [#/Vol] 4.41 10*3/uL Normal 1.45-7.50 [facility] Comment on above: Order Comment: Speci men Type: BLOOD SPECIMENOrdering Facility: [facility] Address: [address] Performed By: #### 5 7021-8 ####[facility] [id number] [address] [place] Neutrophils/100 WBC (Bld) 78.6 % Normal [facility] Comment on above: Order Comment: Speci men Type: BLOOD SPECIMENOrdering Facility: [facility] Address: [address] Performed By: #### 5 7021-8 ####[facility] [id number] [place] [address] [place] Nucleated RBC (Bld) [#/Vol] 10*3/uL Normal <0.01 [facility] Comment on above: Order Comment: Speci men Type: BLOOD SPECIMENOrdering Facility: [facility] Address: [address] Performed By: #### 5 7021-8 ####[facility] [id number] [place] [address] [place] Nucleated RBC/100 WBC (Bld) [Ratio] 0.0 /100 WBC Normal [facility] Comment on above: Order Comment: Speci men Type: BLOOD SPECIMENOrdering Facility: [facility] Address: [address] [place] [address] Performed By: #### 5 7021-8 ####[facility] [id number] [place] [address] [place] Platelet mean volume (Bld) [Entitic vol] 9.5 fL Normal 9.0-12.7 [facility] Comment on above: Order Comment: Speci men Type: BLOOD SPECIMENOrdering Facility: [facility] Address: [address] [place] [address] Performed By: #### 5 7021-8 ####[facility] [id number] [place] [address] [place] Platelets (Bld) [#/Vol] 280 10*3/uL Normal 150-400 [facility] Comment on above: Order Comment: Speci men Type: BLOOD SPECIMENOrdering Facility: [facility] Address: [address] [place] [address] Result Comment: No c lot detected. Performed By: #### 5 7021-8 ####[facility] [id number] [place] [address] [place] RBC (Bld) [#/Vol] 4.37 10*6/uL Normal 3.90-5.20 [facility] Comment on above: Order Comment: Speci men Type: BLOOD SPECIMENOrdering Facility: [facility] Address: [address] [place] [address] Performed By: #### 5 7021-8 ####[facility] [id number] [place] [address] [place] WBC (Bld) [#/Vol] 5.61 10*3/uL Normal 3.70-11.00 [facility] Comment on above: Order Comment: Speci men Type: BLOOD SPECIMENOrdering Facility: [facility] Address: [address] [place], [place] [address] Performed By: #### 5 7021-8 ####[facility] [id number] [place] [address] [place] CNPNon 03-07-2023 CNPN Normal [facility] CT ABD/PEL W IVCONon 023 CT ABD/PEL W IVCON Normal [facility] Comprehensive metabolic 2000 panelon 03-07-2023 Albumin [Mass/Vol] 4.5 g/dL Normal 3.9-4.9 [facility] Comment on above: Order Comment: Speci men Type: BLOOD SPECIMENOrdering Facility: [facility] Address: [address] [place], [place] [address] Performed By: #### 2 4323-8 ####[facility] [id number] [place] [address] [place] ALP [Catalytic activity/Vol] 90 U/L Normal 34-123 [facility] Comment on above: Order Comment: Speci men Type: BLOOD SPECIMENOrdering Facility: [facility] Address: [address] [place], [place] [address] Performed By: #### 2 4323-8 ####[facility] [id number] [place] [address] [place] ALT [Catalytic activity/Vol] 13 U/L Normal 7-38 [facility] Comment on above: Order Comment: Speci men Type: BLOOD SPECIMENOrdering Facility: [facility] Address: [address] [place], [place] [address] Performed By: #### 2 4323-8 ####[facility] [id number] [place] [address] [place] Anion gap [Moles/Vol] 11 mmol/L Normal 9-18 [facility] Comment on above: Order Comment: Speci men Type: BLOOD SPECIMENOrdering Facility: [facility] Address: [address] Performed By: #### 2 4323-8 ####[facility] [id number] [place] [address] [place] AST [Catalytic activity/Vol] 19 U/L Normal 13-35 [facility] Comment on above: Order Comment: Speci men Type: BLOOD SPECIMENOrdering Facility: [facility] Address: [address] Performed By: #### 2 4323-8 ####[facility] [id number] [place] [address] [place] Bilirubin [Mass/Vol] 0.2 mg/dL Normal 0.2-1.3 [facility] Comment on above: Order Comment: Speci men Type: BLOOD SPECIMENOrdering Facility: [facility] Address: [address] Performed By: #### 2 4323-8 ####[facility] [id number] [place] [address] [place] Calcium [Mass/Vol] 9.5 mg/dL Normal 8.5-10.2 [facility] Comment on above: Order Comment: Speci men Type: BLOOD SPECIMENOrdering Facility: [facility] Address: [address] Performed By: #### 2 4323-8 ####[facility] [id number] [place] [address] [place] Chloride [Moles/Vol] 102 mmol/L Normal 97-105 [facility] Comment on above: Order Comment: Speci men Type: BLOOD SPECIMENOrdering Facility: [facility] Address: [address] Performed By: #### 2 4323-8 ####[facility] [id number] [place] [address] [place] CO2 [Moles/Vol] 25 mmol/L Normal 22-30 [facility] Comment on above: Order Comment: Speci men Type: BLOOD SPECIMENOrdering Facility: [facility] Address: [address] [place] [address] Performed By: #### 2 4323-8 ####[facility] [id number] [place] [address] [place] Creatinine [Mass/Vol] 0.68 mg/dL Normal 0.58-0.96 [facility] Comment on above: Order Comment: Speci men Type: BLOOD SPECIMENOrdering Facility: [facility] Address: [address] [place] [address] Performed By: #### 2 4323-8 ####[facility] [id number] [address] [place] ESTIMATED GLOMERULAR FILTRATION RATE 113 mL/min/1.73m??? Normal >=60 [facility] Comment on above: Order Comment: Speci men Type: BLOOD SPECIMENOrdering Facility: [facility] Address: [address] [place] [address] Result Comment: Abbey mated Glomerular Filtration Rate (eGFR) is calculated using the 2020 CKD-EPI creatinine equation. This equation utilizes serum creatinine, sex, and age as parameters. The creatinine assay has traceable calibration to isotope dilution-mass spectrometry. Refer to KDIGO guidelines for clinical interpretation. In patients with unstable renal function, e.g. those with acute kidney injury, the eGFR may not accurately reflect actual GFR. Performed By: #### 2 4323-8 ####[facility] [id number] [place] [address] [place] Glucose [Mass/Vol] 89 mg/dL Normal 74-99 [facility] Comment on above: Order Comment: Speci men Type: BLOOD SPECIMENOrdering Facility: [facility] Address: [address] [place] [address] Result Comment: The [place] [employer] (ADA) provides guidance for cutoff values for fasting glucose and random glucose. The ADA defines fasting as no caloric intake for at least 8 hours. Fasting plasma glucose results between 100 to 125 mg/dL indicate increased risk for diabetes (prediabetes).Fasting plasma glucose results greater than or equal to 126 mg/dL meet the criteria for diagnosis of diabetes. In the absence of unequivocal hyperglycemia, results should be confirmed by repeat testing. In a patient with classic symptoms of hyperglycemia or hyperglycemic crisis, random plasma glucose results greater than or equal to 200 mg/dL meet the criteria for diagnosis of diabetes.Reference: Standards of Medical Care in Diabetes 2016, [place] [employer]. Diabetes Care. 2016.39(Suppl 1). Performed By: #### 2 4323-8 ####[facility] [id number] [place] [address] [place] Potassium [Moles/Vol] 4.4 mmol/L Normal 3.7-5.1 [facility] Comment on above: Order Comment: Speci men Type: BLOOD SPECIMENOrdering Facility: [facility] Address: [address] [place] [address] Performed By: #### 2 4323-8 ####[facility] [id number] [place] [address] [place] Protein [Mass/Vol] 7.6 g/dL Normal 6.3-8.0 [facility] Comment on above: Order Comment: Speci men Type: BLOOD SPECIMENOrdering Facility: [facility] Address: [address] [place] [place] [address] Performed By: #### 2 4323-8 ####[facility] [id number] [place] [address] [place] Sodium [Moles/Vol] 138 mmol/L Normal 136-144 [facility] Comment on above: Order Comment: Speci men Type: BLOOD SPECIMENOrdering Facility: [facility] Address: [address] [place] [address] Performed By: #### 2 4323-8 ####[facility] [id number] [place] [address] [place] Urea nitrogen [Mass/Vol] 8 mg/dL Normal 7-21 [facility] Comment on above: Order Comment: Speci men Type: BLOOD SPECIMENOrdering Facility: [facility] Address: [address] [place] [address] Performed By: #### 2 4323-8 ####[facility] [id number] [place] [address] [place] ED PROV NOTEon 03-07-2023 ED PROV NOTE Normal [facility] ED PROV NOTE Normal [facility] ED PROV NOTE Normal [facility] FLUABV+SARS-CoV-2+RSV Pnl Re sp GENESIS+probeon 03-07-2023 FLUABV+SARS-CoV-2+RS V Pnl Resp GENESIS+probe Abnormal [facility] Comment on above: Performed By: #### 9 5941-1 ####[facility] [id number] [place] [address] [place] HISTORY PHYSICALon HISTORY PHYSICAL Normal [facility] Urinalysis complete panel (U )on 03-07-2023 Bilirubin Ql (U) Negative Normal Negative [facility] Comment on above: Order Comment: Speci men Type: URINE SPECIMENOrdering Facility: [facility] Address: [address] [place], [place] [address] Performed By: #### 2 4356-8 ####[facility] [id number] [place] [address] [place] Clarity (Unsp spec) Clear Normal Clear [facility] Comment on above: Order Comment: Speci men Type: URINE SPECIMENOrdering Facility: [facility] Address: [address] [place], [place] [address] Performed By: #### 2 4356-8 ####[facility] [id number] [place] [address] [place] Color (U) Light Yellow Normal Yellow [facility] Comment on above: Order Comment: Speci men Type: URINE SPECIMENOrdering Facility: [facility] Address: [address] [place], [place] [address] Performed By: #### 2 4356-8 ####[facility] [id number] [place] [address] [place] Epithelial cells LM.HPF (Urine sed) [#/Area] Few Normal [facility] Comment on above: Order Comment: Speci men Type: URINE SPECIMENOrdering Facility: [facility] Address: [address] [place] [address] Performed By: #### 2 4356-8 ####[facility] [id number] [place] [address] [place] Glucose Test strip (U) [Mass/Vol] Negative Normal Trace, Negative [facility] Comment on above: Order Comment: Speci men Type: URINE SPECIMENOrdering Facility: [facility] Address: [address] [place], [place] [address] Performed By: #### 2 4356-8 ####[facility] [id number] [place] [address] [place] Hemoglobin Ql (U) 1+ Abnormal Negative, Trace [facility] Comment on above: Order Comment: Speci men Type: URINE SPECIMENOrdering Facility: [facility] Address: [address] Performed By: #### 2 4356-8 ####[facility] [id number] [place] [address] [place] Ketones Ql (U) Negative Normal Trace, Negative [facility] Comment on above: Order Comment: Speci men Type: URINE SPECIMENOrdering Facility: [facility] Address: [address] [place] [address] Performed By: #### 2 4356-8 ####[facility] [id number] [place] [address] [place] Leukocyte esterase Test strip Ql (U) 500 [place]/uL Abnormal Negative, 25 [place]/uL [facility] Comment on above: Order Comment: Speci men Type: URINE SPECIMENOrdering Facility: [facility] Address: [address] [place] [address] Performed By: #### 2 4356-8 ####[facility] [id number] [place] [address] [place] Nitrite Ql (U) Negative Normal Negative [facility] Comment on above: Order Comment: Speci men Type: URINE SPECIMENOrdering Facility: [facility] Address: [address] [place], [place] [address] Performed By: #### 2 4356-8 ####[facility] LABCLIA [id number] [place] [address] [place] pH (U) 6.0 [pH] Normal 5.0-8.0 [facility] Comment on above: Order Comment: Speci men Type: URINE SPECIMENOrdering Facility: [facility] Address: [address] [place], [place] [address] Performed By: #### 2 4356-8 ####[facility]CL[facility] [id number] [place] [address] [place] Protein (U) [Mass/Vol] Negative Normal Trace, Negative [facility] Comment on above: Order Comment: Speci men Type: URINE SPECIMENOrdering Facility: [facility] Address: [address] [place] [address] Performed By: #### 2 4356-8 ####[facility] [id number] [address] [place] RBC LM.HPF (Urine sed) [#/Area] 0-3 /HPF Normal 0-3 /HPF [facility] Comment on above: Order Comment: Speci men Type: URINE SPECIMENOrdering Facility: [facility] Address: [address] [place] [address] Performed By: #### 2 4356-8 ####[facility]CL[facility] [id number] [place] [address] [place] Specific gravity (U) [Rel density] 1.016 Normal 1.005-1.030 [facility] Comment on above: Order Comment: Speci men Type: URINE SPECIMENOrdering Facility: [facility] Address: [address] [place] [address] Performed By: #### 2 4356-8 ####[facility]CLIA [id number] [address] OF [facility] Urobilinogen Ql (U) Negative Normal Negative [facility] Comment on above: Order Comment: Speci men Type: URINE SPECIMENOrdering Facility: [facility] Address: [address] [place] [address] Performed By: #### 2 4356-8 ####[facility] LABIA [id number] [place] [address] [place] WBC LM.HPF (Urine sed) [#/Area] 11-25 /HPF Abnormal 0-5 /HPF [facility] Comment on above: Order Comment: Speci men Type: URINE SPECIMENOrdering Facility: [facility] Address: [address] [place] [address] Performed By: #### 2 4356-8 ####[facility] [id number] [place] [address] [place] Urinalysis complete pnl Uron 03-07-2023 Urinalysis complete panel (U) Normal [facility] Comment on above: Order Comment: Speci men Type: URINE SPECIMENOrdering Facility: [facility] Address: [address] [address] Performed By: #### 2 4356-8 ####[facility]CLIA [id number] [place] [address] [place] XR CHEST 1V FRONTAL PORTon 0 03-07-2023 XR CHEST 1V FRONTAL PORT Normal [facility] CNPNon 03-02-2023 CNPN Normal [facility] CNPNon 03-01-2023 CNPN Normal [facility] CNPNon 02-23-2023 CNPN Normal [facility] Basic metabolic 2000 panelon 02-17-2023 Anion gap [Moles/Vol] 7 mmol/L Low 9-18 [facility] Comment on above: Order Comment: Speci men Type: BLOOD SPECIMENOrdering Facility: [facility] Address: [place] [address] Performed By: #### 2 432-, 1988-03, , 2776-11 ####[facility] LABIA [id number] [place] [address] [place] Calcium [Mass/Vol] 8.4 mg/dL Low 8.5-10.2 [facility] Comment on above: Order Comment: Speci men Type: BLOOD SPECIMENOrdering Facility: [facility] Address: [address] Performed By: #### 2 432-, 1988-03, , 2776-11 ####[facility] LABIA [id number] [place] [address] [place] Chloride [Moles/Vol] 106 mmol/L High 97-105 [facility] Comment on above: Order Comment: Speci men Type: BLOOD SPECIMENOrdering Facility: [facility] Address: [address] Performed By: #### 2 432-, 1988-03, 2776-11 ####[facility] LABIA [id number] [place] [address] [place] CO2 [Moles/Vol] 26 mmol/L Normal 22-30 [facility] Comment on above: Order Comment: Speci men Type: BLOOD SPECIMENOrdering Facility: [facility] Address: [address] [place] [address] Performed By: #### 2 4320-12, 1988-03, , 2776-11 ####[facility] LABIA [id number] [place] [address] [place] Creatinine [Mass/Vol] 0.70 mg/dL Normal 0.58-0.96 [facility] Comment on above: Order Comment: Speci men Type: BLOOD SPECIMENOrdering Facility: [facility] Address: [address] [place] [address] Performed By: #### 2 4320-12, 1988-03, , 2776-11 ####[facility] [id number] [place] [address] [place] [facility] ESTIMATED GLOMERULAR FILTRATION RATE 112 mL/min/1.73m??? Normal >=60 [facility] Comment on above: Order Comment: Speci men Type: BLOOD SPECIMENOrdering Facility: [facility] Address: [address] [place] [address] Result Comment: Abbey mated Glomerular Filtration Rate (eGFR) is calculated using the 2020 CKD-EPI creatinine equation. This equation utilizes serum creatinine, sex, and age as parameters. The creatinine assay has traceable calibration to isotope dilution-mass spectrometry. Refer to KDIGO guidelines for clinical interpretation. In patients with unstable renal function, e.g. those with acute kidney injury, the eGFR may not accurately reflect actual GFR. Performed By: #### 2 4320-12, 1988-03, , 2776-11 ####[facility] LABIA [id number] [place] [address] [place] Glucose [Mass/Vol] 103 mg/dL High 74-99 [facility] Comment on above: Order Comment: Speci men Type: BLOOD SPECIMENOrdering Facility: [facility] Address: [address] [place] [address] Result Comment: The [place] [employer] (ADA) provides guidance for cutoff values for fasting glucose and random glucose. The ADA defines fasting as no caloric intake for at least 8 hours. Fasting plasma glucose results between 100 to 125 mg/dL indicate increased risk for diabetes (prediabetes).Fasting plasma glucose results greater than or equal to 126 mg/dL meet the criteria for diagnosis of diabetes. In the absence of unequivocal hyperglycemia, results should be confirmed by repeat testing. In a patient with classic symptoms of hyperglycemia or hyperglycemic crisis, random plasma glucose results greater than or equal to 200 mg/dL meet the criteria for diagnosis of diabetes.Reference: Standards of Medical Care in Diabetes 2016, [place] [employer]. Diabetes Care. 2016.39(Suppl 1). Performed By: #### 2 4320-12, 1988-03, , 2776-11 ####[facility]CLIA [id number] [place] [address] [place] Potassium [Moles/Vol] 3.7 mmol/L Normal 3.7-5.1 [facility] Comment on above: Order Comment: Speci men Type: BLOOD SPECIMENOrdering Facility: [facility] Address: [address] [place] [address] Performed By: #### 2 4320-12, , 2776-11 ####[facility]CLIA [id number] [place] [address] [place] Sodium [Moles/Vol] 139 mmol/L Normal 136-144 [facility] Comment on above: Order Comment: Speci men Type: BLOOD SPECIMENOrdering Facility: [facility] Address: [address] [place], [place] [address] Performed By: #### 2 4320-12, 1988-03, , 2776-11 ####[facility]CLIA [id number] [place] [address] [place] Urea nitrogen [Mass/Vol] 8 mg/dL Normal 7-21 [facility] Comment on above: Order Comment: Speci men Type: BLOOD SPECIMENOrdering Facility: [facility] Address: [address] [place] [address] Performed By: #### 2 4321-2, 1987-5, 75281-4, 2777-1 ####[facility]CLIA [id number] [place] [address] [place] CASE MANAGEMon 02-17-2023 CASE MANAGEM Normal [facility] CBC panel Auto (Bld)on 02-17 Erythrocyte distribution width (RBC) [Ratio] 14.0 % Normal 11.5-15.0 [facility] Comment on above: Order Comment: Speci men Type: BLOOD SPECIMENOrdering Facility: [facility] Address: [address] [place] [address] Performed By: #### 5 8410-2 ####[facility]CLIA [id number] [place] [address] [place] Hematocrit (Bld) [Volume fraction] 33.2 % Low 36.0-46.0 [facility] Comment on above: Order Comment: Speci men Type: BLOOD SPECIMENOrdering Facility: [facility] Address: [address] [place], [place] [address] Performed By: #### 5 8410-2 ####[facility]CLIA [id number] [place] [address] [place] Hemoglobin (Bld) [Mass/Vol] 10.7 g/dL Low 11.5-15.5 [facility] Comment on above: Order Comment: Speci men Type: BLOOD SPECIMENOrdering Facility: [facility] Address: [address] [place] [address] Performed By: #### 5 8410-2 ####[facility]CLIA [id number] [place] [address] [place] MCH (RBC) [Entitic mass] 30.6 pg Normal 26.0-34.0 [facility] Comment on above: Order Comment: Speci men Type: BLOOD SPECIMENOrdering Facility: [facility] Address: [address] [place] [address] Performed By: #### 5 8410-2 ####[facility] [id number] [address] [place] MCHC (RBC) [Mass/Vol] 32.2 g/dL Normal 30.5-36.0 [facility] Comment on above: Order Comment: Speci men Type: BLOOD SPECIMENOrdering Facility: [facility] Address: [address] [place] [address] Performed By: #### 5 8410-2 ####[facility] [id number] [address] [place] MCV (RBC) [Entitic vol] 94.9 fL Normal 80.0-100.0 [facility] Comment on above: Order Comment: Speci men Type: BLOOD SPECIMENOrdering Facility: [facility] Address: [address] [place], [place] [address] Performed By: #### 5 8410-2 ####[facility] [id number] [place] [address] [place] Nucleated RBC (Bld) [#/Vol] 10*3/uL Normal <0.01 [facility] Comment on above: Order Comment: Speci men Type: BLOOD SPECIMENOrdering Facility: [facility] Address: [address] [place], [place] [address] Performed By: #### 5 8410-2 ####[facility] [id number] [address] [place] Platelet mean volume (Bld) [Entitic vol] 9.7 fL Normal 9.0-12.7 [facility] Comment on above: Order Comment: Speci men Type: BLOOD SPECIMENOrdering Facility: [facility] Address: [address] [place], [place] [address] Performed By: #### 5 8410-2 ####[facility]CLIA [id number] [place] [address] [place] Platelets (Bld) [#/Vol] 192 10*3/uL Normal 150-400 [facility] Comment on above: Order Comment: Speci men Type: BLOOD SPECIMENOrdering Facility: [facility] Address: [address] [place], [place] [address] Performed By: #### 5 8410-2 ####[facility]CLIA [id number] [place] [address] [place] RBC (Bld) [#/Vol] 3.50 10*6/uL Low 3.90-5.20 [facility] Comment on above: Order Comment: Speci men Type: BLOOD SPECIMENOrdering Facility: [facility] Address: [address] [place], [place] [address] Performed By: #### 5 8410-2 ####[facility]CLIA [id number] [place] [address] [place] WBC (Bld) [#/Vol] 6.37 10*3/uL Normal 3.70-11.00 [facility] Comment on above: Order Comment: Speci men Type: BLOOD SPECIMENOrdering Facility: [facility] Address: [address] [place], [place] [address] Performed By: #### 5 8410-2 ####[facility]CLIA [id number] [place] [address] [place] CNCOon 02-17-2023 CNCO Letter Text Normal [facility] CNDSon 02-17-2023 CNDS Normal [facility] CRP SerPl-mCncon 02-17-2023 CRP [Mass/Vol] 1.1 mg/dL High <0.9 [facility] Comment on above: Order Comment: Speci men Type: BLOOD SPECIMENOrdering Facility: [facility] Address: [address] [place] [address] Performed By: #### 2 432-2, 1988-03, , 2776-11 ####[facility]CLIA [id number] [place] [address] [place] Magnesium SerPl-mCncon 02-17 Magnesium [Mass/Vol] 1.9 mg/dL Normal 1.7-2.3 [facility] Comment on above: Order Comment: Speci men Type: BLOOD SPECIMENOrdering Facility: [facility] Address: [address] [place] [address] Performed By: #### 2 4322, 1988-03, , 2776-11 ####[facility]CL[facility] [id number] [place] [address] [place] Phosphate SerPl-mCncon 02-17 Phosphate [Mass/Vol] 2.9 mg/dL Normal 2.7-4.8 [facility] Comment on above: Order Comment: Speci men Type: BLOOD SPECIMENOrdering Facility: [facility] Address: [address] [place], [place] [address] Performed By: #### 2 432-2, 1988-03, , 2776-11 ####[facility]CLIA [id number] [place] [address] [place] Basic metabolic 2000 panelon 2023 Anion gap [Moles/Vol] 9 mmol/L Normal 9-18 [facility] Comment on above: Order Comment: Speci men Type: BLOOD SPECIMENOrdering Facility: [facility] Address: [address] [place], [place] [address] Performed By: #### 1 , , 2776-, 96537-7 ####[facility] LABCLIA [id number] [address] [address] [place] Calcium [Mass/Vol] 9.1 mg/dL Normal 8.5-10.2 [facility] Comment on above: Order Comment: Speci men Type: BLOOD SPECIMENOrdering Facility: [facility] Address: [address] [place], [place] [address] Performed By: #### 1 988-5, , 2776-11, 49627-7 ####[facility]CLIA [id number] [place] [address] [place] Chloride [Moles/Vol] 102 mmol/L Normal 97-105 [facility] Comment on above: Order Comment: Speci men Type: BLOOD SPECIMENOrdering Facility: [facility] Address: [address] [place], [place] [address] Performed By: #### 1 988-5, , 2776-11, 18248-3 ####[facility] LABIA [id number] [place] [address] [place] CO2 [Moles/Vol] 25 mmol/L Normal 22-30 [facility] Comment on above: Order Comment: Speci men Type: BLOOD SPECIMENOrdering Facility: [facility] Address: [address] [place], [place] [address] Performed By: #### 1 988-5, , 2776-11, 80326-0 ####[facility] LABIA [id number] [place] [address] [place] Creatinine [Mass/Vol] 0.80 mg/dL Normal 0.58-0.96 [facility] Comment on above: Order Comment: Speci men Type: BLOOD SPECIMENOrdering Facility: [facility] Address: [address] [place], [place] [address] Performed By: #### 1 988-5, 93479-9, 2777-, 21574-3 ####[facility]CL[facility] [id number] [place] [address] [place] ESTIMATED GLOMERULAR FILTRATION RATE 96 mL/min/1.73m??? Normal >=60 [facility] Comment on above: Order Comment: Uday covington Type: BLOOD SPECIMENOrdering Facility: [facility] Address: [address] [place] [address] Result Comment: Abbey mated Glomerular Filtration Rate (eGFR) is calculated using the 2020 CKD-EPI creatinine equation. This equation utilizes serum creatinine, sex, and age as parameters. The creatinine assay has traceable calibration to isotope dilution-mass spectrometry. Refer to KDIGO guidelines for clinical interpretation. In patients with unstable renal function, e.g. those with acute kidney injury, the eGFR may not accurately reflect actual GFR. Performed By: #### 1 988-5, 92707-2, 2777-, 65139-3 ####[facility]CL[facility] [id number] [place] [address] [place] Glucose [Mass/Vol] 108 mg/dL High 74-99 [facility] Comment on above: Order Comment: Uday covington Type: BLOOD SPECIMENOrdering Facility: [facility] Address: [address] [place] [address] Result Comment: The [place] Diabetes [employer] (ADA) provides guidance for cutoff values for fasting glucose and random glucose. The ADA defines fasting as no caloric intake for at least 8 hours. Fasting plasma glucose results between 100 to 125 mg/dL indicate increased risk for diabetes (prediabetes).Fasting plasma glucose results greater than or equal to 126 mg/dL meet the criteria for diagnosis of diabetes. In the absence of unequivocal hyperglycemia, results should be confirmed by repeat testing. In a patient with classic symptoms of hyperglycemia or hyperglycemic crisis, random plasma glucose results greater than or equal to 200 mg/dL meet the criteria for diagnosis of diabetes.Reference: Standards of Medical Care in Diabetes 2016, [place] [employer]. Diabetes Care. 2016.39(Suppl 1). Performed By: #### 1 988-5, 33090-0, 2776-11, 57922-7 ####[facility]CL[facility] [id number] [place] [address] [place] Potassium [Moles/Vol] 3.7 mmol/L Normal 3.7-5.1 [facility] Comment on above: Order Comment: Speci men Type: BLOOD SPECIMENOrdering Facility: [facility] Address: [address] [place], [place] [address] Performed By: #### 1 , , 2776-11, 50771-4 ####[facility] LABIA [id number] [place] [address] [place] Sodium [Moles/Vol] 136 mmol/L Normal 136-144 [facility] Comment on above: Order Comment: Speci men Type: BLOOD SPECIMENOrdering Facility: [facility] Address: [address] [place], [place] [address] Performed By: #### 1 , , 2776-11, 30070-4 ####[facility] LABIA [id number] [place] [address] [place] Urea nitrogen [Mass/Vol] 14 mg/dL Normal 7-21 [facility] Comment on above: Order Comment: Speci men Type: BLOOD SPECIMENOrdering Facility: [facility] Address: [address] [place], [place] [address] Performed By: #### 1 , , 2776-11, ####[facility] [id number] [place] [id number] [place] Anion gap [Moles/Vol] 11 mmol/L Normal 9-18 [facility] Comment on above: Order Comment: Speci men Type: BLOOD SPECIMENOrdering Facility: [facility] Address: [address] [place], [place] [address] Performed By: #### 2 4321-2, 1988-03, , 2776-11 ####[facility]CL[facility] [id number] [address] [address] [place] Calcium [Mass/Vol] 9.0 mg/dL Normal 8.5-10.2 [facility] Comment on above: Order Comment: Speci men Type: BLOOD SPECIMENOrdering Facility: [facility] Address: [address] [place], [place] [address] Performed By: #### 2 4320-12, 1988-03, , 2776-11 ####[facility] [id number] [place] [address] [place] Chloride [Moles/Vol] 102 mmol/L Normal 97-105 [facility] Comment on above: Order Comment: Speci men Type: BLOOD SPECIMENOrdering Facility: [facility] Address: [address] [place], [place] [address] Performed By: #### 2 4320-12, 1988-03, , 2776-11 ####[facility]CL[facility] [id number] [place] [id number] [place] CO2 [Moles/Vol] 24 mmol/L Normal 22-30 [facility] Comment on above: Order Comment: Speci men Type: BLOOD SPECIMENOrdering Facility: [facility] Address: [address] [place] [address] Performed By: #### 2 4320-12, 1988-03, , 2776-11 ####[facility] [id number] [address] [address] [place] Creatinine [Mass/Vol] 0.80 mg/dL Normal 0.58-0.96 [facility] Comment on above: Order Comment: Speci men Type: BLOOD SPECIMENOrdering Facility: [facility] Address: [address] [place] [address] Performed By: #### 2 4320-12, 2776-11 ####[facility] [id number] [place] [address] [place] ESTIMATED GLOMERULAR FILTRATION RATE 96 mL/min/1.73m??? Normal >=60 [facility] Comment on above: Order Comment: Uday adria Type: BLOOD SPECIMENOrdering Facility: [facility] Address: [address] [place] [address] Result Comment: Abbey mated Glomerular Filtration Rate (eGFR) is calculated using the 2020 CKD-EPI creatinine equation. This equation utilizes serum creatinine, sex, and age as parameters. The creatinine assay has traceable calibration to isotope dilution-mass spectrometry. Refer to KDIGO guidelines for clinical interpretation. In patients with unstable renal function, e.g. those with acute kidney injury, the eGFR may not accurately reflect actual GFR. Performed By: #### 2 432-, , 2776-11 ####[facility] [id number] [place] [address] [place] Glucose [Mass/Vol] 131 mg/dL High 74-99 [facility] Comment on above: Order Comment: Uday covington Type: BLOOD SPECIMENOrdering Facility: [facility] Address: [address] [place] [address] Result Comment: The [place] [employer] (ADA) provides guidance for cutoff values for fasting glucose and random glucose. The ADA defines fasting as no caloric intake for at least 8 hours. Fasting plasma glucose results between 100 to 125 mg/dL indicate increased risk for diabetes (prediabetes).Fasting plasma glucose results greater than or equal to 126 mg/dL meet the criteria for diagnosis of diabetes. In the absence of unequivocal hyperglycemia, results should be confirmed by repeat testing. In a patient with classic symptoms of hyperglycemia or hyperglycemic crisis, random plasma glucose results greater than or equal to 200 mg/dL meet the criteria for diagnosis of diabetes.Reference: Standards of Medical Care in Diabetes 2016, [place] [employer]. Diabetes Care. 2016.39(Suppl 1). Performed By: #### 2 432-, , 2776-11 ####[facility] [id number] [address] [address] [place] Potassium [Moles/Vol] 4.3 mmol/L Normal 3.7-5.1 [facility] Comment on above: Order Comment: Speci men Type: BLOOD SPECIMENOrdering Facility: [facility] Address: [address] [place], [place] [address] Performed By: #### 2 4320-, 1988-03, , 2776-11 ####[facility] [id number] [place] [address] [place] Sodium [Moles/Vol] 137 mmol/L Normal 136-144 [facility] Comment on above: Order Comment: Speci men Type: BLOOD SPECIMENOrdering Facility: [facility] Address: [address] [place], [place] [address] Performed By: #### 2 4320-, 1988-03, , 2776-11 ####[facility] [id number] [place] [address] [place] [place] Urea nitrogen [Mass/Vol] 8 mg/dL Normal 7- [facility] Comment on above: Order Comment: Speci men Type: BLOOD SPECIMENOrdering Facility: [facility] Address: [address] [place], [place] [address] Performed By: #### 2 43211-29, 1988-03, , 2776-11 ####[facility] LABIA [id number] [place] [id number] [place] CASE MGT INIT ASSESon 2022 CASE MGT INIT ASSES Normal [facility] CBC W Auto Differential pane l (Bld)on 2023 Basophils (Bld) [#/Vol] 0.03 10*3/uL Normal <0.11 [facility] Comment on above: Order Comment: Speci men Type: BLOOD SPECIMENOrdering Facility: [facility] Address: [address] Performed By: #### 5 7021-8 ####[facility] LABCLIA [id number] [address] STATES [facility] Basophils/100 WBC (Bld) 0.3 % Normal [facility] Comment on above: Order Comment: Speci men Type: BLOOD SPECIMENOrdering Facility: [facility] Address: [address] Performed By: #### 5 7021-8 ####[facility] LABCLIA [id number] [address] [place] Differential cell count method Nom (Bld) Auto Normal [facility] Comment on above: Order Comment: Speci men Type: BLOOD SPECIMENOrdering Facility: [facility] Address: [address] [place], [place] [address] Performed By: #### 5 7021-8 ####[facility] LABCLIA [id number] [place] [address] [place] Eosinophils (Bld) [#/Vol] 0.03 10*3/uL Normal <0.46 [facility] Comment on above: Order Comment: Speci men Type: BLOOD SPECIMENOrdering Facility: [facility] Address: [address] Performed By: #### 5 7021-8 ####[facility] LABCLIA [id number] [address] [place] Eosinophils/100 WBC (Bld) 0.3 % Normal [facility] Comment on above: Order Comment: Speci men Type: BLOOD SPECIMENOrdering Facility: [facility] Address: [address] [place], [place] [address] Performed By: #### 5 7021-8 ####[facility] LABCLIA [id number] [address] [id number] [address] [place] Erythrocyte distribution width (RBC) [Ratio] 13.5 % Normal 11.5-15.0 [facility] Comment on above: Order Comment: Speci men Type: BLOOD SPECIMENOrdering Facility: [facility] Address: [address] [place] [address] Performed By: #### 5 7021-8 ####[facility] LABCLIA [id number] [place] [address] [place] Hematocrit (Bld) [Volume fraction] 34.8 % Low 36.0-46.0 [facility] Comment on above: Order Comment: Speci men Type: BLOOD SPECIMENOrdering Facility: [facility] Address: [address] [place] [address] Performed By: #### 5 7021-8 ####[facility] LABCLIA [id number] [place] [address] [place] Hemoglobin (Bld) [Mass/Vol] 11.6 g/dL Normal 11.5-15.5 [facility] Comment on above: Order Comment: Speci men Type: BLOOD SPECIMENOrdering Facility: [facility] Address: [address] [place], [place] [address] Performed By: #### 5 7021-8 ####[facility]CLIA [id number] [place] [address] [place] Immature granulocytes (Bld) [#/Vol] 0.06 10*3/uL Normal <0.10 [facility] Comment on above: Order Comment: Speci men Type: BLOOD SPECIMENOrdering Facility: [facility] Address: [address] [place], [place] [address] Performed By: #### 5 7021-8 ####[facility]CLIA [id number] [address] [place] Immature granulocytes/100 WBC (Bld) 0.5 % Normal [facility] Comment on above: Order Comment: Speci men Type: BLOOD SPECIMENOrdering Facility: [facility] Address: [address] Performed By: #### 5 7021-8 ####[facility] LABCLIA [id number] [address] STATES OF [facility] Lymphocytes (Bld) [#/Vol] 0.85 10*3/uL Low 1.00-4.00 [facility] Comment on above: Order Comment: Speci men Type: BLOOD SPECIMENOrdering Facility: [facility] Address: [address] [place] [address] Performed By: #### 5 7021-8 ####[facility] LABCLIA [id number] [address] [place] Lymphocytes/100 WBC (Bld) 7.4 % Normal [facility] Comment on above: Order Comment: Speci men Type: BLOOD SPECIMENOrdering Facility: [facility] Address: [address] [place], [place] [address] Performed By: #### 5 7021-8 ####[facility]CLIA [id number] [place] [address] [place] MCH (RBC) [Entitic mass] 30.8 pg Normal 26.0-34.0 [facility] Comment on above: Order Comment: Speci men Type: BLOOD SPECIMENOrdering Facility: [facility] Address: [address] Performed By: #### 5 7021-8 ####[facility] LABCLIA [id number] [place] [address] [place] MCHC (RBC) [Mass/Vol] 33.3 g/dL Normal 30.5-36.0 [facility] Comment on above: Order Comment: Speci men Type: BLOOD SPECIMENOrdering Facility: [facility] Address: [address] [place], [place] [address] Performed By: #### 5 7021-8 ####[facility] LABCLIA [id number] [place] [address] [place] MCV (RBC) [Entitic vol] 92.3 fL Normal 80.0-100.0 [facility] Comment on above: Order Comment: Speci men Type: BLOOD SPECIMENOrdering Facility: [facility] Address: [address] [place] [address] Performed By: #### 5 7021-8 ####[facility]IA [id number] [place] [address] [place] Monocytes (Bld) [#/Vol] 0.81 10*3/uL Normal <0.87 [facility] Comment on above: Order Comment: Speci men Type: BLOOD SPECIMENOrdering Facility: [facility] Address: [address] [place] [address] Performed By: #### 5 7021-8 ####[facility]IA [id number] [place] [address] [place] Monocytes/100 WBC (Bld) 7.1 % Normal [facility] Comment on above: Order Comment: Speci men Type: BLOOD SPECIMENOrdering Facility: [facility] Address: [address] [place] [address] Performed By: #### 5 7021-8 ####[facility] [id number] [place] [address] [place] Neutrophils (Bld) [#/Vol] 9.66 10*3/uL High 1.45-7.50 [facility] Comment on above: Order Comment: Speci men Type: BLOOD SPECIMENOrdering Facility: [facility] Address: [address] [place], [place] [address] Performed By: #### 5 7021-8 ####[facility] [id number] [place] [address] [place] Neutrophils/100 WBC (Bld) 84.4 % Normal [facility] Comment on above: Order Comment: Speci men Type: BLOOD SPECIMENOrdering Facility: [facility] Address: [address] [place] [address] Performed By: #### 5 7021-8 ####[facility]IA [id number] [place] [address] [place] Nucleated RBC (Bld) [#/Vol] 10*3/uL Normal <0.01 [facility] Comment on above: Order Comment: Speci men Type: BLOOD SPECIMENOrdering Facility: [facility] Address: [address] [place] [address] Performed By: #### 5 7021-8 ####[facility]IA [id number] [place] [address] [place] Nucleated RBC/100 WBC (Bld) [Ratio] 0.0 /100 WBC Normal [facility] Comment on above: Order Comment: Speci men Type: BLOOD SPECIMENOrdering Facility: [facility] Address: [address] [place] [address] Performed By: #### 5 7021-8 ####[facility]IA [id number] [place] [address] [place] Platelet mean volume (Bld) [Entitic vol] 9.8 fL Normal 9.0-12.7 [facility] Comment on above: Order Comment: Speci men Type: BLOOD SPECIMENOrdering Facility: [facility] Address: [address] [place] [address] Performed By: #### 5 7021-8 ####[facility]IA [id number] [place] [address] [place] Platelets (Bld) [#/Vol] 226 10*3/uL Normal 150-400 [facility] Comment on above: Order Comment: Speci men Type: BLOOD SPECIMENOrdering Facility: [facility] Address: [address] [place] [address] Performed By: #### 5 7021-8 ####[facility] LABCLIA [id number] [place] [address] [place] RBC (Bld) [#/Vol] 3.77 10*6/uL Low 3.90-5.20 [facility] Comment on above: Order Comment: Speci men Type: BLOOD SPECIMENOrdering Facility: [facility] Address: [address] [place], [place] [address] Performed By: #### 5 7021-8 ####[facility]IA [id number] [place] [address] [place] WBC (Bld) [#/Vol] 11.44 10*3/uL High 3.70-11.00 [facility] Comment on above: Order Comment: Speci men Type: BLOOD SPECIMENOrdering Facility: [facility] Address: [address] [place], [place] [address] Performed By: #### 5 7021-8 ####[facility]IA [id number] [place] [address] [place] Basophils (Bld) [#/Vol] 10*3/uL Normal <0.11 [facility] Comment on above: Order Comment: Speci men Type: BLOOD SPECIMENOrdering Facility: [facility] Address: [address] [place], [place] [address] Performed By: #### 5 7021-8 ####[facility]IA [id number] [place] [address] [place] Basophils/100 WBC (Bld) 0.2 % Normal [facility] Comment on above: Order Comment: Speci men Type: BLOOD SPECIMENOrdering Facility: [facility] Address: [address] [place], [place] [address] Performed By: #### 5 7021-8 ####[facility]IA [id number] [place] [address] [place] Differential cell count method Nom (Bld) Auto Normal [facility] Comment on above: Order Comment: Speci men Type: BLOOD SPECIMENOrdering Facility: [facility] Address: [address] Performed By: #### 5 7021-8 ####[facility] LABCLIA [id number] [place] [address] [place] Eosinophils (Bld) [#/Vol] 10*3/uL Normal <0.46 [facility] Comment on above: Order Comment: Speci men Type: BLOOD SPECIMENOrdering Facility: [facility] Address: [address] [place], [place] [address] Performed By: #### 5 7021-8 ####[facility] LABCLIA [id number] [address] [place] Eosinophils/100 WBC (Bld) 0.0 % Normal [facility] Comment on above: Order Comment: Speci men Type: BLOOD SPECIMENOrdering Facility: [facility] Address: [address] [place], [place] [address] Performed By: #### 5 7021-8 ####[facility]CLIA [id number] [place] [address] [place] Erythrocyte distribution width (RBC) [Ratio] 13.5 % Normal 11.5-15.0 [facility] Comment on above: Order Comment: Speci men Type: BLOOD SPECIMENOrdering Facility: [facility] Address: [address] Performed By: #### 5 7021-8 ####[facility] LABCLIA [id number] [place] [address] [place] Hematocrit (Bld) [Volume fraction] 39.6 % Normal 36.0-46.0 [facility] Comment on above: Order Comment: Speci men Type: BLOOD SPECIMENOrdering Facility: [facility] Address: [address] Performed By: #### 5 7021-8 ####[facility] LABCLIA [id number] [place] [address] [place] Hemoglobin (Bld) [Mass/Vol] 13.0 g/dL Normal 11.5-15.5 [facility] Comment on above: Order Comment: Speci men Type: BLOOD SPECIMENOrdering Facility: [facility] Address: [address] Performed By: #### 5 7021-8 ####[facility] LABCLIA [id number] [place] [address] [place] Immature granulocytes (Bld) [#/Vol] 0.07 10*3/uL Normal <0.10 [facility] Comment on above: Order Comment: Speci men Type: BLOOD SPECIMENOrdering Facility: [facility] Address: [address] [place], [place] [address] Performed By: #### 5 7021-8 ####[facility]IA [id number] [place] [address] [place] Immature granulocytes/100 WBC (Bld) 0.5 % Normal [facility] Comment on above: Order Comment: Speci men Type: BLOOD SPECIMENOrdering Facility: [facility] Address: [address] [place], [place] [address] Performed By: #### 5 7021-8 ####[facility]CLIA [id number] [place] [address] [place] Lymphocytes (Bld) [#/Vol] 0.36 10*3/uL Low 1.00-4.00 [facility] Comment on above: Order Comment: Speci men Type: BLOOD SPECIMENOrdering Facility: [facility] Address: [address] [place], [place] [address] Performed By: #### 5 7021-8 ####[facility]CLIA [id number] [address] [place] [facility] Lymphocytes/100 WBC (Bld) 2.8 % Normal [facility] Comment on above: Order Comment: Speci men Type: BLOOD SPECIMENOrdering Facility: [facility] Address: [address] [place] [address] Performed By: #### 5 7021-8 ####[facility] LABCLIA [id number] [address] [place] [facility] MCH (RBC) [Entitic mass] 31.0 pg Normal 26.0-34.0 [facility] Comment on above: Order Comment: Speci men Type: BLOOD SPECIMENOrdering Facility: [facility] Address: [address] [place], [place] [address] Performed By: #### 5 7021-8 ####[facility]CLIA [id number] [address] [place] MCHC (RBC) [Mass/Vol] 32.8 g/dL Normal 30.5-36.0 [facility] Comment on above: Order Comment: Speci men Type: BLOOD SPECIMENOrdering Facility: [facility] Address: [address] [place], [place] [address] Performed By: #### 5 7021-8 ####[facility]IA [id number] [address] [place] MCV (RBC) [Entitic vol] 94.5 fL Normal 80.0-100.0 [facility] Comment on above: Order Comment: Speci men Type: BLOOD SPECIMENOrdering Facility: [facility] Address: [address] [place], [place] [address] Performed By: #### 5 7021-8 ####[facility] LABCLIA [id number] [place] [address] [place] Monocytes (Bld) [#/Vol] 0.17 10*3/uL Normal <0.87 [facility] Comment on above: Order Comment: Speci men Type: BLOOD SPECIMENOrdering Facility: [facility] Address: [address] Performed By: #### 5 7021-8 ####[facility]CLIA [id number] [place] [address] [place] Monocytes/100 WBC (Bld) 1.3 % Normal [facility] Comment on above: Order Comment: Speci men Type: BLOOD SPECIMENOrdering Facility: [facility] Address: [address] Performed By: #### 5 7021-8 ####[facility] LABCLIA [id number] [place] [address] [place] Neutrophils (Bld) [#/Vol] 12.36 10*3/uL High 1.45-7.50 [facility] Comment on above: Order Comment: Speci men Type: BLOOD SPECIMENOrdering Facility: [facility] Address: [address] Performed By: #### 5 7021-8 ####[facility]CLIA [id number] [place] [address] [place] Neutrophils/100 WBC (Bld) 95.2 % Normal [facility] Comment on above: Order Comment: Speci men Type: BLOOD SPECIMENOrdering Facility: [facility] Address: [address] Performed By: #### 5 7021-8 ####[facility]CLIA [id number] [place] [address] [place] Nucleated RBC (Bld) [#/Vol] 10*3/uL Normal <0.01 [facility] Comment on above: Order Comment: Speci men Type: BLOOD SPECIMENOrdering Facility: [facility] Address: [address] Performed By: #### 5 7021-8 ####[facility]CLIA [id number] [place] [address] [place] Nucleated RBC/100 WBC (Bld) [Ratio] 0.0 /100 WBC Normal [facility] Comment on above: Order Comment: Speci men Type: BLOOD SPECIMENOrdering Facility: [facility] Address: [address] [place] [address] Performed By: #### 5 7021-8 ####[facility] [id number] [place] [address] [place] Platelet mean volume (Bld) [Entitic vol] 9.9 fL Normal 9.0-12.7 [facility] Comment on above: Order Comment: Speci men Type: BLOOD SPECIMENOrdering Facility: [facility] Address: [address] [place] [address] Performed By: #### 5 7021-8 ####[facility] [id number] [place] [address] [place] Platelets (Bld) [#/Vol] 234 10*3/uL Normal 150-400 [facility] Comment on above: Order Comment: Speci men Type: BLOOD SPECIMENOrdering Facility: [facility] Address: [address] [place], [place] [address] Performed By: #### 5 7021-8 ####[facility] [id number] [place] [address] [place] RBC (Bld) [#/Vol] 4.19 10*6/uL Normal 3.90-5.20 [facility] Comment on above: Order Comment: Speci men Type: BLOOD SPECIMENOrdering Facility: [facility] Address: [address] [place], [place] [address] Performed By: #### 5 7021-8 ####[facility] [id number] [place] [address] [place] WBC (Bld) [#/Vol] 12.98 10*3/uL High 3.70-11.00 [facility] Comment on above: Order Comment: Speci men Type: BLOOD SPECIMENOrdering Facility: [facility] Address: [address] [place] [address] Performed By: #### 5 7021-8 ####[facility]CL[facility] [id number] [place] [address] [place] [facility] CRP SerPl-ncon 2023 CRP [Mass/Vol] 1.5 mg/dL High <0.9 [facility] Comment on above: Order Comment: Speci men Type: BLOOD SPECIMENOrdering Facility: [facility] Address: [address] [place] [address] Performed By: #### 1 -5, , 2776-, 22482-6 ####[facility]CL[facility] [id number] [place] [address] [place] CRP [Mass/Vol] 0.5 mg/dL Normal <0.9 [facility] Comment on above: Order Comment: Speci men Type: BLOOD SPECIMENOrdering Facility: [facility] Address: [address] [place] [address] Performed By: #### 2 4321-2, 1988-03, , 2776-11 ####[facility] [id number] [place] [address] [place] Magnesium SerPl-mCncon 02-15 Magnesium [Mass/Vol] 2.1 mg/dL Normal 1.7-2.3 [facility] Comment on above: Order Comment: Speci men Type: BLOOD SPECIMENOrdering Facility: [facility] Address: [address] [place] [address] Performed By: #### 1 98-5, , 277-, 99194-4 ####[facility] [id number] [address] [address] [place] Magnesium [Mass/Vol] 1.8 mg/dL Normal 1.7-2.3 [facility] Comment on above: Order Comment: Speci men Type: BLOOD SPECIMENOrdering Facility: [facility] Address: [place] [id number] Performed By: #### 2 4321-2, 1988-03, , 2776-11 ####[facility]CLIA [id number] [address] [address] [place] PT EDon 2023 PT ED Normal [facility] Phosphate SerPl-mCncon 02-15 Phosphate [Mass/Vol] 2.6 mg/dL Low 2.7-4.8 [facility] Comment on above: Order Comment: Speci men Type: BLOOD SPECIMENOrdering Facility: [facility] Address: [address] [facility] [place] [address] Performed By: #### 1 , , 2776-11, 46435-5 ####[facility]CL[facility] [id number] [place] [address] [place] Phosphate [Mass/Vol] 3.8 mg/dL Normal 2.7-4.8 [facility] Comment on above: Order Comment: Speci men Type: BLOOD SPECIMENOrdering Facility: [facility] Address: [address] [place] [id number] Performed By: #### 2 432-2, 1988-03, , 2776-11 ####[facility]CLIA [id number] [place] [id number] [place] ANES POSTPROC EVALon 023 ANES POSTPROC EVAL Normal [facility] ANES PRE-OPon 02-14-2023 ANES PRE-OP Normal [facility] BRIEF OP NOTon 02-14-2023 BRIEF OP NOT Normal [facility] OPERATIVE NOon 02-14-2023 OPERATIVE NO Normal [facility] SURGICAL PATHOLOGYon 023 CASE REPORT Normal [facility] Comment on above: Order Comment: Uday covington Type: TISSUE SPECIMENOrdering Facility: [facility] Address: [address] [place] [address] Result Comment: Surg ical Pathology Report Case: [id number] Provider: Hilary Shaffer MD Collected: 02/14/2023 03:58 PMOrdering Location: Admitting Received: 02/14/2023 06:01 PMPathologist: DAX Lightpecimen: COLON RESECTION, ileocolic resection Performed By: #### S ####[facility] [id number] [place] [address] [place] CLINICAL HISTORY Normal [facility] Comment on above: Order Comment: Uday covington Type: TISSUE SPECIMENOrdering Facility: [facility] Address: [address] [place] [address] Result Comment: Pre- op diagnosis:Crohn's disease of small and large intestines with complication (HCC) [K50.819] Performed By: #### S ####[facility] [id number] [address] [place] DIAGNOSIS COMMENT Normal [facility] Comment on above: Order Comment: Uday covington Type: TISSUE SPECIMENOrdering Facility: [facility] Address: [address] [place] [address] Result Comment: Spec ial stains for AFB and GMS were performed on parts A1 and A3 and were not contributory as granuloma disappeared on deeper sections.A benign gland associated with stroma is identified on the serosa on part A5. The gland shows diffuse positive staining for PAX8 and ER and the stromal cells show diffuse positive staining for ER. These immunohistochemical staining results support the diagnosis of endometriosis.Laboratory Developed Test (LDT) Disclaimer:Performance characteristics of immunohistochemical, immunofluorescent and chromogenic in-situ hybridization tests have been determined by the performing laboratory within [facility]???s [facility] [place] ([place], [facility], [facility], [facility], [facility], or Formerly [facility]) in a manner consistent with CLIA requirements. One or more of these tests have not been cleared or approved by the FDA. [facility] is regulated under CLIA as qualified to perform high-complexity testing. These tests are used for clinical purposes. They should not be regarded as investigational or for research. Positive and negative controls stain appropriately. Performed By: #### S ####[facility] LABCLIA [id number] [address] FINAL DIAGNOSIS Normal [facility] Comment on above: Order Comment: Speci men Type: TISSUE SPECIMENOrdering Facility: [facility] Address: [address] [address] Result Comment: A. I leum, colon, and appendix, resection:-Segment of ileum and colon with chronic active enteritis, ulcer, stricture, non-necrotizing granuloma, and transmural inflammation; compatible with the patient's history of Crohn disease.-Negative for dysplasia.-Endometriosis involving serosa.-The surgical resection margins are negative for neutrophilic inflammation.-Five lymph nodes with no diagnostic abnormalities.-Appendix with no diagnostic abnormalities.KENIA/JESUS 02/22/23 Performed By: #### S ####[facility]CLIA [id number] [address] FINAL PERFORMING LAB Normal [facility] Comment on above: Order Comment: Speci men Type: TISSUE SPECIMENOrdering Facility: [facility] Address: [address] [address] Result Comment: Diag nostic interpretation performed at [facility], [address] [address] CLIA# [id number] Director: Scot Poole M.D. Performed By: #### S ####[facility]CLIA [id number] [address] [place] GROSS DESCRIPTION Normal [facility] Comment on above: Order Comment: Speci men Type: TISSUE SPECIMENOrdering Facility: [facility] Address: [address] [id number] Result Comment: A. C OLON RESECTIONReceived in formalin labeled colon resection, ileocolic resection is a specimen consisting of terminal ileum (2.9 cm in length by 3.0 cm in internal circumference with a wall thickness of 0.5 cm), colon (3.0 cm in length by 6.5 cm in internal circumference with a wall thickness of 0.4 cm) and attached appendix (4.7 cm in length by 0.7 cm in diameter). The serosal surface is pink-claire with scattered membranous adhesions. Fat wrapping is identified. The proximal mucosal margin is inked orange and the distal mucosal margin is inked blue. On opening, the bowel does not lie flat and a stricture is identified spanning the ileocecal valve which measures 2.5 cm in length, which is 2.0 cm from the proximal mucosal margin and 2.5 cm from the distal mucosal margin. In this area, the internal circumference is 0.5 cm with a wall thickness of 1.0 cm. The mucosa in this area is claire to pink and granular. The closest mesenteric margin to the stricture is 2.0 cm away. Sectioning through the stricture reveals intact bowel wall layers without evidence of a mass lesion. The remainder of the ileal and colonic mucosa is claire-brown with the usual mucosal folds. The appendiceal serosa is pink-claire and smooth. Sectioning through the appendix reveals a wall thickness of 0.3 cm with an intact lumen filled with green fluid and pink-claire mucosa.Assembler Brazer sections are submitted as follows:A1: Proximal and distal mucosal margins, perpendicularA2-A5: Assembler Brazer strictureA6: Bisected appendiceal tip and herbicide service sales representative cross-sectionA7: 5 possible lymph nodes, submitted in totoGross examination performed at [facility], [address] [id number] 02/15/23 6:54 PM Performed By: #### S ####[facility]CLIA [id number] [address] [place] 25(OH)D3 SerPl-mCncon 2022 25-hydroxyvitamin D3 [Mass/Vol] 54.3 ng/mL Normal 31.0-80.0 [facility] Comment on above: Order Comment: Speci men Type: BLOOD SPECIMENOrdering Facility: [facility] Address: [address] [place] [address] Performed By: #### 1 989-3 ####[facility] LABIA [id number] [place] [address] [place] LYLA BY IFA WITH REFLEXon LYLA PATTERN Centromere Normal [facility] Comment on above: Order Comment: Speci men Type: BLOOD SPECIMENOrdering Facility: [facility] Address: [address] [place] [address] Performed By: #### 5 1775-5, 27560-3, 46452-4, 16205-3, 07943-1, 67003-0, 57137-2, 59375-9, 66972-8, ANAIFR ####[facility] LABIA [id number] [place] [address] [place] LYLA TITER >1:1280 Normal [facility] Comment on above: Order Comment: Speci men Type: BLOOD SPECIMENOrdering Facility: [facility] Address: [address] [place] [address] Performed By: #### 5 1775-5, 91343-5, 22058-9, 24711-3, 17986-0, 04117-4, 43267-1, 41382-4, 61924-9, ANAIFR ####[facility] [id number] [place] [address] [place] Nuclear Ab IF (S) [Titer] Positive Abnormal Negative [facility] Comment on above: Order Comment: Speci men Type: BLOOD SPECIMENOrdering Facility: [facility] Address: [address] [place] [address] Result Comment: Anti -nuclear antibody test is used as an aid in diagnosis of systemic autoimmune diseases. Where positive and clinically warranted, follow-up using disease-specific testing is recommended. Low positive titers are not uncommon with advanced age, certain chronic infections, and malignancies among others.Test methodology: Indirect fluorescence immunoassay (IFA) using HEp-2 cells. Performed By: #### 5 1775-5, 71477-5, 76599-1, 08756-1, 64414-3, 73866-2, 53360-6, 72724-4, 82961-9, ANAIFR ####[facility] LABIA [id number] [place] [address] [place] BETA 2 GLYCOPROTEIN, IGGon 0 02-11-2023 Beta 2 glycoprotein 1 IgG IA Qn <9 Normal <20 [facility] Comment on above: Order Comment: Uday covington Type: BLOOD SPECIMENOrdering Facility: [facility] Address: [address] [place] [address] Result Comment: <20 SGU [id number] SGU Low Positive>80 SGU High PositiveThese results were obtained with the [employer] QUANTA Lite B2 GPI IgG DONTRELL. B2 GPI IgG values obtained with different manufacturers' assay methods may not be used interchangeably. The magnitude of the reported IgG levels cannot be correlated to an endpoint titer. Performed By: #### 3 3935-8, BETA2G, BETA2M, 5076-5, CARDIG ####[facility] LABIA [id number] [place] [address] [place] BETA 2 GLYCOPROTEIN, IGMon 0 02-11-2023 Beta 2 glycoprotein 1 IgM IA Qn 38 [facility]U High <20 [facility] Comment on above: Order Comment: Speci men Type: BLOOD SPECIMENOrdering Facility: [facility] Address: [address] [place] [address] Result Comment: <20 SMU Tozlbkqd42-17 SMU Low Positive>80 [facility]U High positiveThese results were obtained with the [employer] QUANTA Lite B2 GPI IgM DONTRELL. B2 GPI IgM values obtained with different manufacturers' assay methods may not be used interchangeably. The magnitude of the reported IgM levels cannot be correlated to an endpoint titer. Performed By: #### 3 3935-8, BETA2G, BETA2M, 5076-5, CARDIG ####[facility] LABCLIA [id number] [address] CARDIOLIPIN IGG ABSon 2022 Cardiolipin IgG IA Qn (S) <9.0 Normal <15.0 [facility] Comment on above: Order Comment: Speci men Type: BLOOD SPECIMENOrdering Facility: [facility] Address: [address] [place] [address] Result Comment: <15 GPL [id number] GPL Indeterminate>20 GPL PositiveThe following results were obtained with the [employer] QUANTA Lite HARPREET IgG III DONTRELL. Cardiolipin IgG values obtained with the different manufacturers' assay methods may not be used interchangeably. The magnitude of the reported IgG levels cannot be correlated to an endpoint titer. Performed By: #### 3 3935-8, BETA2G, BETA2M, 5076-5, JUSTUS ####[facility] LABIA [id number] [address] CARDIOLIPIN IGM ABSon 2022 Cardiolipin IgM IA Qn (S) 17.9 MPL High <12.5 [facility] Comment on above: Order Comment: Speci men Type: BLOOD SPECIMENOrdering Facility: [facility] Address: [address] [place] [address] Result Comment: <12. 5 MPL Xtqrmyjm66.5-20 MPL Indeterminate>20 MPL PositiveThe following results were obtained with the [employer] QUANTA Lite HARPREET IgM III DONTRELL. Cardiolipin IgM values obtained with the different manufacturers' assay methods may not be used interchangeably. The magnitude of the reported IgM levels cannot be correlated to an endpoint titer.??? Performed By: #### C GORGE ####[facility]CLIA [id number] [address] CBC panel Auto (Bld)on 02-11 Erythrocyte distribution width (RBC) [Ratio] 13.6 % Normal 11.5-15.0 [facility] Comment on above: Order Comment: Speci men Type: BLOOD SPECIMENOrdering Facility: [facility] Address: [address] Performed By: #### 5 8410-2 ####[facility] LABIA [id number] [place] [address] [place] Hematocrit (Bld) [Volume fraction] 42.5 % Normal 36.0-46.0 [facility] Comment on above: Order Comment: Speci men Type: BLOOD SPECIMENOrdering Facility: [facility] Address: [address] Performed By: #### 5 8410-2 ####[facility] LABIA [id number] [address] [place] Hemoglobin (Bld) [Mass/Vol] 13.6 g/dL Normal 11.5-15.5 [facility] Comment on above: Order Comment: Speci men Type: BLOOD SPECIMENOrdering Facility: [facility] Address: [address] [place], [place] [address] Performed By: #### 5 8410-2 ####[facility] LABIA [id number] [place] [address] [place] MCH (RBC) [Entitic mass] 30.4 pg Normal 26.0-34.0 [facility] Comment on above: Order Comment: Speci men Type: BLOOD SPECIMENOrdering Facility: [facility] Address: [address] Performed By: #### 5 8410-2 ####[facility] LABIA [id number] [place] [address] [place] MCHC (RBC) [Mass/Vol] 32.0 g/dL Normal 30.5-36.0 [facility] Comment on above: Order Comment: Speci men Type: BLOOD SPECIMENOrdering Facility: [facility] Address: [address] [place], [place] [address] Performed By: #### 5 8410-2 ####[facility] LABCLIA [id number] [place] [address] [place] MCV (RBC) [Entitic vol] 94.9 fL Normal 80.0-100.0 [facility] Comment on above: Order Comment: Speci men Type: BLOOD SPECIMENOrdering Facility: [facility] Address: [address] [place] [address] Performed By: #### 5 8410-2 ####[facility] LABIA [id number] [place] [address] [place] Nucleated RBC (Bld) [#/Vol] 10*3/uL Normal <0.01 [facility] Comment on above: Order Comment: Speci men Type: BLOOD SPECIMENOrdering Facility: [facility] Address: [address] Performed By: #### 5 8410-2 ####[facility] LABIA [id number] [place] [address] [place] Platelet mean volume (Bld) [Entitic vol] 9.6 fL Normal 9.0-12.7 [facility] Comment on above: Order Comment: Speci men Type: BLOOD SPECIMENOrdering Facility: [facility] Address: [address] [place] [address] Performed By: #### 5 8410-2 ####[facility] LABIA [id number] [place] [address] [place] Platelets (Bld) [#/Vol] 305 10*3/uL Normal 150-400 [facility] Comment on above: Order Comment: Speci men Type: BLOOD SPECIMENOrdering Facility: [facility] Address: [address] [place] [address] Performed By: #### 5 8410-2 ####[facility]CLIA [id number] [place] [address] [place] RBC (Bld) [#/Vol] 4.48 10*6/uL Normal 3.90-5.20 [facility] Comment on above: Order Comment: Speci men Type: BLOOD SPECIMENOrdering Facility: [facility] Address: [address] [place] [address] Performed By: #### 5 8410-2 ####[facility] LABCLIA [id number] [place] [address] [place] WBC (Bld) [#/Vol] 8.04 10*3/uL Normal 3.70-11.00 [facility] Comment on above: Order Comment: Speci men Type: BLOOD SPECIMENOrdering Facility: [facility] Address: [address] [place] [address] Performed By: #### 5 8410-2 ####[facility] LABCLIA [id number] [place] [address] [place] CNCNPATEDon 02-11-2023 CNCNPATED Normal [facility] CNOVon 02-11-2023 CNOV Normal [facility] CONFIRM BLOOD TYPEon 023 ABO B Normal [facility] Comment on above: Order Comment: Speci men Type: BLOOD SPECIMENOrdering Facility: [facility] Address: [address] [place] [address] Performed By: #### C ONABO ####[facility] BLOOD BANKCLIA [id number] [place] [address] [place] Rh Nom (Bld) Positive Normal [facility] Comment on above: Order Comment: Speci men Type: BLOOD SPECIMENOrdering Facility: [facility] Address: [address] [place] [address] Performed By: #### C ONABO ####[facility] BLOOD BANKCLIA [id number] [place] [address] [place] CRP SerPl-mCncon 02-11-2023 CRP [Mass/Vol] mg/L Normal <0.9 [facility] Comment on above: Order Comment: Uday covington Type: BLOOD SPECIMENOrdering Facility: [facility] Address: [address] [place] [address] Performed By: #### 2 4323-8, 1988-5, 2731-8, 47881-6 ####[facility] LABIA [id number] [address] [facility] Cardiolipin IgA Ser IA-aCnco n 02-11-2023 Cardiolipin IgA IA Qn (S) <9.0 Normal <12.0 [facility] Comment on above: Order Comment: Uday covington Type: BLOOD SPECIMENOrdering Facility: [facility] Address: [address] [place] [address] Result Comment: <12 APL [id number] APL Indeterminate>20 APL PositiveThe following results were obtained with the [employer] Lite HARPREET IgA III DONTRELL. Cardiolipin IgA values obtained with the different manufacturers' assay methods may not be used interchangeably. The magnitude of the reported IgA levels cannot be correlated to an endpoint titer. Performed By: #### 3 3935-8, BETA2G, BETA2M, 5076-5, CARDIG ####[facility] [id number] [address] [place] Centromere Ab IF Ql (S)on Centromere Ab Qn (S) >8.0 High <1.0 [facility] Comment on above: Order Comment: Uday covington Type: BLOOD SPECIMENOrdering Facility: [facility] Address: [address] [place] [address] Result Comment: Anti -centromere antibody is used as in aid in diagnosis of systemic sclerosis. Clinical correlation is required.Test Methodology: Multiplex flow immunoassay. Performed By: #### 5 1775-5, 79410-8, 28095-3, 34347-8, 11359-3, 82202-9, 09545-9, 56050-4, 52708-5, ANAIFR ####[facility] LABCLIA [id number] [place] [address] [place] CENTROMERE AB QUAL Positive Abnormal Negative [facility] Comment on above: Order Comment: Speci men Type: BLOOD SPECIMENOrdering Facility: [facility] Address: [address] [place] [address] Performed By: #### 5 1775-5, 85997-9, 23288-9, 60399-8, 10456-6, 17816-9, 69184-9, 98394-3, 94113-2, ANAIFR ####[facility] LABCLIA [id number] [place] [address] [place] Chromatin Ab Qnon 02-11-2023 CHROMATIN AB QUAL Negative Normal Negative [facility] Comment on above: Order Comment: Speci men Type: BLOOD SPECIMENOrdering Facility: [facility] Address: [address] [place] [address] Performed By: #### 5 1775-5, 09792-4, 08833-2, 84730-1, 63926-4, 26918-6, 67146-8, 83906-3, 15935-9, ANAIFR ####[facility] LABCLIA [id number] [place] [address] [place] Chromatin Ab SerPl-aCncon Chromatin Ab Qn <0.2 Normal <1.0 [facility] Comment on above: Order Comment: Speci men Type: BLOOD SPECIMENOrdering Facility: [facility] Address: [address] [place] [address] Result Comment: Test Methodology: Multiplex flow immunoassay. Performed By: #### 5 1775-5, 39578-7, 69794-8, 78573-2, 72867-3, 64816-9, 29264-9, 42147-5, 96091-1, ANAIFR ####[facility]CLIA [id number] [place] [address] [place] Comprehensive metabolic 2000 panelon 02-11-2023 Albumin [Mass/Vol] 4.4 g/dL Normal 3.9-4.9 [facility] Comment on above: Order Comment: Speci men Type: BLOOD SPECIMENOrdering Facility: [facility] Address: [address] [place] [address] Performed By: #### 2 8, 1988-03, 2731-06, ####[facility]CLIA [id number] [place] [address] [place] ALP [Catalytic activity/Vol] 78 U/L Normal 34-123 [facility] Comment on above: Order Comment: Speci men Type: BLOOD SPECIMENOrdering Facility: [facility] Address: [address] [place] [address] Performed By: #### 2 8, 1988-03, 2731-06, ####[facility]CLIA [id number] [place] [address] [place] ALT [Catalytic activity/Vol] 15 U/L Normal 7-38 [facility] Comment on above: Order Comment: Speci men Type: BLOOD SPECIMENOrdering Facility: [facility] Address: [address] [place] [address] Performed By: #### 2 8, 1988-03, 2731-06, ####[facility] LABCLIA [id number] [place] [id number] [place] Anion gap [Moles/Vol] 10 mmol/L Normal 9-18 [facility] Comment on above: Order Comment: Speci men Type: BLOOD SPECIMENOrdering Facility: [facility] Address: [address] [place] [address] Performed By: #### 2 8, 1988-03, 2731-06, ####[facility] LABCLIA [id number] [place] [address] [place] AST [Catalytic activity/Vol] 16 U/L Normal 13-35 [facility] Comment on above: Order Comment: Speci men Type: BLOOD SPECIMENOrdering Facility: [facility] Address: [address] [place] [address] Performed By: #### 2 4328, 1988-03, 2731-06, ####[facility]CLIA [id number] [place] [address] [place] Bilirubin [Mass/Vol] 0.3 mg/dL Normal 0.2-1.3 [facility] Comment on above: Order Comment: Speci men Type: BLOOD SPECIMENOrdering Facility: [facility] Address: [address] [place] [address] Performed By: #### 2 4328, 1988-03, 2731-06, ####[facility]CLIA [id number] [place] [address] [place] Calcium [Mass/Vol] 9.5 mg/dL Normal 8.5-10.2 [facility] Comment on above: Order Comment: Speci men Type: BLOOD SPECIMENOrdering Facility: [facility] Address: [address] [place], [place] [address] Performed By: #### 2 4328, 1988-03, 2731-06, ####[facility]CLIA [id number] [place] [address] [place] Chloride [Moles/Vol] 102 mmol/L Normal 97-105 [facility] Comment on above: Order Comment: Speci men Type: BLOOD SPECIMENOrdering Facility: [facility] Address: [address] [place] [address] Performed By: #### 2 4328, 1988-03, 2731-06, ####[facility]CLIA [id number] [place] [address] [place] CO2 [Moles/Vol] 27 mmol/L Normal 22-30 [facility] Comment on above: Order Comment: Speci men Type: BLOOD SPECIMENOrdering Facility: [facility] Address: [address] [place] [address] Performed By: #### 2 4328, 1988-03, 2731-06, ####[facility] LABIA [id number] [place] [address] [place] Creatinine [Mass/Vol] 0.83 mg/dL Normal 0.58-0.96 [facility] Comment on above: Order Comment: Speci men Type: BLOOD SPECIMENOrdering Facility: [facility] Address: [address] [place] [address] Performed By: #### 2 4328, 1988-03, 2731-06, ####[facility] [id number] [place] [address] [place] ESTIMATED GLOMERULAR FILTRATION RATE 92 mL/min/1.73m??? Normal >=60 [facility] Comment on above: Order Comment: Speci men Type: BLOOD SPECIMENOrdering Facility: [facility] Address: [address] [place] [address] Result Comment: Abbey mated Glomerular Filtration Rate (eGFR) is calculated using the 2020 CKD-EPI creatinine equation. This equation utilizes serum creatinine, sex, and age as parameters. The creatinine assay has traceable calibration to isotope dilution-mass spectrometry. Refer to KDIGO guidelines for clinical interpretation. In patients with unstable renal function, e.g. those with acute kidney injury, the eGFR may not accurately reflect actual GFR. Performed By: #### 2 432-8, 1988-03, 2731-06, ####[facility] LABIA [id number] [place] [id number] [place] Glucose [Mass/Vol] 102 mg/dL High 74-99 [facility] Comment on above: Order Comment: Speci men Type: BLOOD SPECIMENOrdering Facility: [facility] Address: [address] [place], [place] [address] Result Comment: The [place] Diabetes Association (ADA) provides guidance for cutoff values for fasting glucose and random glucose. The ADA defines fasting as no caloric intake for at least 8 hours. Fasting plasma glucose results between 100 to 125 mg/dL indicate increased risk for diabetes (prediabetes).Fasting plasma glucose results greater than or equal to 126 mg/dL meet the criteria for diagnosis of diabetes. In the absence of unequivocal hyperglycemia, results should be confirmed by repeat testing. In a patient with classic symptoms of hyperglycemia or hyperglycemic crisis, random plasma glucose results greater than or equal to 200 mg/dL meet the criteria for diagnosis of diabetes.Reference: Standards of Medical Care in Diabetes 2016, [place] [employer]. Diabetes Care. 2016.39(Suppl 1). Performed By: #### 2 8, 1988-03, 2731-06, ####[facility]CLIA [id number] [address] [address] [place] Potassium [Moles/Vol] 4.2 mmol/L Normal 3.7-5.1 [facility] Comment on above: Order Comment: Speci men Type: BLOOD SPECIMENOrdering Facility: [facility] Address: [address] [place], [place] [address] Performed By: #### 2 4323-06, 1988-03, 2731-06, ####[facility] [id number] [address] [address] [place] Protein [Mass/Vol] 6.9 g/dL Normal 6.3-8.0 [facility] Comment on above: Order Comment: Speci men Type: BLOOD SPECIMENOrdering Facility: [facility] Address: [address] [place], [place] [address] Performed By: #### 2 8, 1988-03, 2731-06, ####[facility]IA [id number] [place] [address] [place] Sodium [Moles/Vol] 139 mmol/L Normal 136-144 [facility] Comment on above: Order Comment: Speci men Type: BLOOD SPECIMENOrdering Facility: [facility] Address: [address] [place] [address] Performed By: #### 2 4323-8, 1988-03, 2731-06, 85779-7 ####[facility]CLIA [id number] [place] [address] [place] Urea nitrogen [Mass/Vol] 11 mg/dL Normal 7-21 [facility] Comment on above: Order Comment: Speci men Type: BLOOD SPECIMENOrdering Facility: [facility] Address: [address] [place] [address] Performed By: #### 2 4328, 1988-03, 2731-06, 42928-0 ####[facility]CLIA [id number] [place] [address] [place] Cyclic citrullinated peptide IgG Qnon 02-11-2023 CCP ANTIBODY IGG QUALITATIVE Negative Normal Negative [facility] Comment on above: Order Comment: Speci men Type: BLOOD SPECIMENOrdering Facility: [facility] Address: [address] [place] [address] Performed By: #### 3 3935-8, BETA2G, BETA2M, 5076-5, CARDIG ####[facility] [id number] [place] [address] [place] [id number] 02-11-2023 ECG01 Normal [facility] SHARRI Jo1 Ab Ser-aCncon 2022 Carmel-1 extractable nuclear Ab Qn (S) <0.2 Normal <1.0 [facility] Comment on above: Order Comment: Speci men Type: BLOOD SPECIMENOrdering Facility: [facility] Address: [address] [place] [address] Performed By: #### 5 1775-5, 48971-7, 83615-5, 07961-6, 99736-7, 18175-5, 59131-2, 32921-0, 00633-7, ANAIFR ####[facility] LABIA [id number] [place] [address] [place] SHARRI IRRIGATION SUPERVISOR Ab Ser-aCncon 2022 Ribonucleoprotein extractable nuclear Ab Qn (S) <0.2 Normal <1.0 [facility] Comment on above: Order Comment: Speci men Type: BLOOD SPECIMENOrdering Facility: [facility] Address: [address] [place] [address] Performed By: #### 5 1775-5, 53204-8, 04760-0, 79306-4, 66380-5, 85206-1, 78843-6, 94779-0, 36680-2, ANAIFR ####[facility] LABIA [id number] [place] [address] [place] SHARRI SM IgG Ser-aCncon 2022 Willingham extractable nuclear IgG Qn (S) <0.2 Normal <1.0 [facility] Comment on above: Order Comment: Speci men Type: BLOOD SPECIMENOrdering Facility: [facility] Address: [address] [place] [address] Performed By: #### 5 1775-5, 54378-6, 12046-5, 05206-1, 80444-4, 81232-2, 32122-7, 06807-0, 40630-8, ANAIFR ####[facility] LABIA [id number] [place] [address] [place] SHARRI SS-A Ab Ser-aCncon 02-11 Sjogrens syndrome-A extractable nuclear Ab Qn (S) <0.2 Normal <1.0 [facility] Comment on above: Order Comment: Speci men Type: BLOOD SPECIMENOrdering Facility: [facility] Address: [address] [place] [address] Result Comment: Test Methodology: Multiplex flow immunoassay. Performed By: #### 5 1775-5, 69499-8, 85411-1, 82628-1, 61242-3, 33663-7, 61437-1, 20388-3, 21410-1, ANAIFR ####[facility] [id number] [address] [place] SHARRI SS-B Ab Ser-aCncon 02-11 Sjogrens syndrome-B extractable nuclear Ab Qn (S) <0.2 Normal <1.0 [facility] Comment on above: Order Comment: Speci men Type: BLOOD SPECIMENOrdering Facility: [facility] Address: [address] [address] Result Comment: Anti -SSB (anti-La) antibody is used as an aid in diagnosis of a variety of systemic autoimmune diseases, especially for Sjogren's syndrome and systemic lupus erythematosus. Clinical correlation is required.Test Methodology: Multiplex flow immunoassay. Performed By: #### 5 1775-5, 53170-7, 23402-0, 30772-1, 61029-8, 73067-4, 28251-4, 68057-1, 50971-7, ANAIFR ####[facility] LABIA [id number] [address] [place] HISTORY PHYSICALon HISTORY PHYSICAL Normal [facility] Carmel-1 extractable nuclear Ab Qn (S)on 02-11-2023 CARMEL 1 ANTIBODY QUAL Negative Normal Negative [facility] Comment on above: Order Comment: Speci men Type: BLOOD SPECIMENOrdering Facility: [facility] Address: [address] [address] Result Comment: Anti -CARMEL-1 antibody is used as an aid in diagnosis of polymyositis and dermatomyositis especially with pulmonary involvement. A negative result cannot rule out polymyositis or dermatomyositis. Clinical correlation is required.Test Methodology: Multiplex flow immunoassay. Performed By: #### 5 1775-5, 49946-8, 14815-9, 81532-1, 32734-6, 01655-7, 99995-3, 95374-2, 08470-9, ANAIFR ####[facility] LABIA [id number] [place] [address] [place] LUPUS PANELon 02-11-2023 aPTT Coag (Bld) [Time] 33.7 s Normal 24.0-35.1 [facility] Comment on above: Order Comment: Speci men Type: BLOOD SPECIMENOrdering Facility: [facility] Address: [address] [address] Performed By: #### L UPPL ####[facility] [id number] [address] [place] aPTT W excess hexagonal phase phospholipid Coag (PPP) [Time] 48.2 seconds Normal 34.0-51.8 [facility] Comment on above: Order Comment: Speci men Type: BLOOD SPECIMENOrdering Facility: [facility] Address: [address] [address] Performed By: #### L UPPL ####[facility] [id number] [address] [place] Delta dRVVT Coag (PPP) [Time diff] 2.0 delta seconds Normal <7.1 [facility] Comment on above: Order Comment: Speci men Type: BLOOD SPECIMENOrdering Facility: [facility] Address: [address] Performed By: #### L UPPL ####[facility] [id number] [address] [place] dRVVT Coag (PPP) [Time] 36.0 s Normal 32.0-45.7 [facility] Comment on above: Order Comment: Speci men Type: BLOOD SPECIMENOrdering Facility: [facility] Address: [address] [address] Performed By: #### L UPPL ####[facility] [id number] [place] [address] [place] dRVVT factor substitution immediately after 1:2 addition of normal plasma Coag (PPP) [Time] 36.6 seconds Normal 32.0-45.7 [facility] Comment on above: Order Comment: Speci men Type: BLOOD SPECIMENOrdering Facility: [facility] Address: [address] [place] [address] Performed By: #### L UPPL ####[facility] [id number] [place] [address] [place] dRVVT W excess hexagonal phase phospholipid actual/normal Coag (PPP) [Relative time] 46.2 seconds Normal 34.2-47.9 [facility] Comment on above: Order Comment: Speci men Type: BLOOD SPECIMENOrdering Facility: [facility] Address: [address] [place], [place] [address] Performed By: #### L UPPL ####[facility] [id number] [address] [place] dRVVT/dRVVT.excess phospholipid Coag (PPP) [Ratio] 1.04 Normal <1.32 [facility] Comment on above: Order Comment: Speci men Type: BLOOD SPECIMENOrdering Facility: [facility] Address: [address] [place], [place] [address] Performed By: #### L UPPL ####[facility] [id number] [place] [address] [place] Lupus anticoagulant neutralization platelet Coag Ql (PPP) Negative Normal Negative [facility] Comment on above: Order Comment: Speci men Type: BLOOD SPECIMENOrdering Facility: [facility] Address: [address] [place], [place] [address] Performed By: #### L UPPL ####[facility] [id number] [address] STATES OF [facility] Thrombin time Coag (PPP) [Time] <16.8 Normal <18.6 [facility] Comment on above: Order Comment: Speci men Type: BLOOD SPECIMENOrdering Facility: [facility] Address: [address] [place] [address] Performed By: #### L UPPL ####[facility]CLIA [id number] [address] PT panel Coag (PPP)on 2022 INR Coag (PPP) [Relative time] 1.0 {INR} Normal 0.9-1.3 [facility] Comment on above: Order Comment: Speci men Type: BLOOD SPECIMENOrdering Facility: [facility] Address: [address] [place] [address] Result Comment: An min K Antagonist (VKA) Therapeutic Range: INR 2 to 3 (Target INR of 2.5)Note: For patients treated with VKA drugs, such as warfarin, the [place] [employer] 2012 Guideline recommends a therapeutic INR range of 2 to 3 (target INR of 2.5). This recommendation includes high-risk patients with antiphospholipid syndrome with previous arterial or venous thromboembolism, current-generation mechanical or bioprosthetic aortic heart valve replacement.Note: Patients with mechanical aortic valve replacement and additional risk factors for thromboembolic events (atrial fibrillation, previous thromboembolism, LV dysfunction, hypercoagulable conditions) or an older generation mechanical AVR (i.e., ball in-Cage) or any mechanical MVR should have a INR therapeutic range of 2.5 to 3.5 (target INR of 3).Hussein GH, et al. Chest 2012, 141:7S-47SNishjesenia RA, et al. JACC 2017, 70: 252-289 Performed By: #### 3 4528-0, 26352-9 ####[facility]CL[facility] [id number] [place] [address] [place] PT Coag (PPP) [Time] 9.9 s Normal 9.7-13.0 [facility] Comment on above: Order Comment: Speci men Type: BLOOD SPECIMENOrdering Facility: [facility] Address: [address] [place] [address] Performed By: #### 3 4528-0, 59744-2 ####[facility]CLIA [id number] [place] [address] [place] PTH-Intact SerPl-mCncon - Parathyrin.intact [Mass/Vol] 45 pg/mL Normal 15-65 [facility] Comment on above: Order Comment: Speci men Type: BLOOD SPECIMENOrdering Facility: [facility] Address: [address] [place] [address] Performed By: #### 2 4328, 1988-03, 2731-06, ####[facility]CL[facility] [id number] [place] [address] [place] Rheumatoid fact SerPl-aCncon 02-11-2023 Rheumatoid factor Qn [IU]/mL Normal <16 [facility] Comment on above: Order Comment: Speci men Type: BLOOD SPECIMENOrdering Facility: [facility] Address: [address] [place] [address] Performed By: #### 2 4328, 1988-03, 2731-06, ####[facility]CL[facility] [id number] [place] [address] [place] Ribonucleoprotein extractabl e nuclear Ab Qn (S)on 02-11-2023 ANTI-IRRIGATION SUPERVISOR QUAL Negative Normal Negative [facility] Comment on above: Order Comment: Speci men Type: BLOOD SPECIMENOrdering Facility: [facility] Address: [address] [place] [address] Performed By: #### 5 1775-5, 57924-1, 74378-3, 13333-7, 62778-4, 74317-8, 58338-8, 66512-5, 59787-8, ANAIFR ####[facility] [id number] [place] [address] [place] RIBOSOMAL IRRIGATION SUPERVISOR QUAL Negative Normal Negative [facility] Comment on above: Order Comment: Speci men Type: BLOOD SPECIMENOrdering Facility: [facility] Address: [address] [place] [address] Result Comment: Anti -Ribosomal RNA (Ribosomal P) antibody is used as an aid in diagnosis of systemic autoimmune diseases especially systemic lupus erythematosus and mixed connective tissue disease. Cross-reactivity with Anti-willingham antibody is not uncommon. Clinical correlation is required.Test Methodology: Multiplex flow immunoassay. Performed By: #### 5 1775-5, 14892-0, 68609-1, 78293-8, 01479-3, 50160-7, 94395-1, 82994-9, 75033-8, ANAIFR ####[facility] [id number] [place] [address] [place] SCL-70 extractable nuclear I gG IA Qn (S)on 02-11-2023 SCLERODERMA AB QUAL Negative Normal Negative [facility] Comment on above: Order Comment: Speci men Type: BLOOD SPECIMENOrdering Facility: [facility] Address: [address] [place] [address] Performed By: #### 5 1775-5, 84640-7, 81982-9, 28515-0, 34290-2, 60542-6, 72073-9, 82283-5, 08206-2, ANAIFR ####[facility] [id number] [place] [address] [place] SCLERODERMA IGG AB <0.2 Normal <1.0 [facility] Comment on above: Order Comment: Bradyi adria Type: BLOOD SPECIMENOrdering Facility: [facility] Address: [address] [place] [address] Result Comment: Scl- 70/Scleroderma antibody test is used as an aid in diagnosis of systemic sclerosis especially the diffuse cutaneous form. A negative result cannot rule out systemic sclerosis. The final interpretation should consider clinical picture and other test results such as anti-centromere antibody. Test Methodology: Multiplex flow immunoassay. Performed By: #### 5 1775-5, 38028-3, 81576-1, 25947-7, 56014-9, 53373-8, 92963-0, 99138-9, 99839-7, ANAIFR ####[facility] LABIA [id number] [place] [address] [place] Sjogrens syndrome-A extracta ble nuclear Ab Qn (S)on 02-11-2023 SSA ANTIBODY QUAL Negative Normal Negative [facility] Comment on above: Order Comment: Speci men Type: BLOOD SPECIMENOrdering Facility: [facility] Address: [address] [place] [address] Performed By: #### 5 1775-5, 77736-7, 07153-5, 99044-3, 91355-1, 04576-6, 21549-2, 32031-6, 02214-5, ANAIFR ####[facility] [id number] [place] [address] [place] Sjogrens syndrome-B extracta ble nuclear Ab Qn (S)on 02-11-2023 SSB ANTIBODY QUAL Negative Normal Negative [facility] Comment on above: Order Comment: Speci men Type: BLOOD SPECIMENOrdering Facility: [facility] Address: [address] [place] [address] Performed By: #### 5 1775-5, 11950-1, 27243-2, 86943-6, 90842-6, 27143-4, 29648-2, 52643-8, 63997-2, ANAIFR ####[facility]IA [id number] [place] [address] [place] Willingham extractable nuclear Ig G Qn (S)on 02-11-2023 SM ANTIBODY QUAL Negative Normal Negative [facility] Comment on above: Order Comment: Speci men Type: BLOOD SPECIMENOrdering Facility: [facility] Address: [address] [place] [address] Result Comment: Anti -Sm (Willingham) antibody is used as an aid in diagnosis of systemic lupus erythematosus and its presence is associated with renal disease. A negative result cannot rule out systemic lupus erythematosus. Clinical correlation is required.Test Methodology: Multiplex flow immunoassay. Performed By: #### 5 1775-5, 01774-9, 98719-5, 24268-1, 74076-4, 14206-3, 67625-1, 38013-2, 45501-2, ANAIFR ####[facility] [id number] [place] [address] [place] TYPE AND SCREEN,30 DAYon ABO B Normal [facility] Comment on above: Order Comment: Speci men Type: BLOOD SPECIMENOrdering Facility: [facility] Address: [address] [place] [address] Performed By: #### T SCR30 ####[facility] BLOOD BANKIA [id number] [address] HISTORICAL AB SCR STATUS Negative Normal [facility] Comment on above: Order Comment: Speci men Type: BLOOD SPECIMENOrdering Facility: [facility] Address: [address] [place] [address] Performed By: #### T SCR30 ####[facility] BLOOD BANKIA [id number] [address] [place] Rh Nom (Bld) Positive Normal [facility] Comment on above: Order Comment: Speci men Type: BLOOD SPECIMENOrdering Facility: [facility] Address: [address] [place] [address] Performed By: #### T SCR30 ####[facility] BLOOD BANKIA [id number] [address] [place] aPTT PPPon 02-11-2023 aPTT Coag (PPP) [Time] 28.1 s Normal 23.0-32.4 [facility] Comment on above: Order Comment: Speci men Type: BLOOD SPECIMENOrdering Facility: [facility] Address: [address] [address] Performed By: #### 3 4528-0, 95797-4 ####[facility] [id number] [place] [address] [place] cCP IgG SerPl-aCncon 023 Cyclic citrullinated peptide IgG Qn <15 Normal <20 [facility] Comment on above: Order Comment: Speci men Type: BLOOD SPECIMENOrdering Facility: [facility] Address: [address] [place] [address] Performed By: #### 3 3935-8, BETA2G, BETA2M, 5076-5, CARDIG ####[facility]IA [id number] [place] [address] [place] dsDNA Ab Ser IA-aCncon 02-11 DNA double strand Ab IA Qn (S) <12 Normal <30 [facility] Comment on above: Order Comment: Speci men Type: BLOOD SPECIMENOrdering Facility: [facility] Address: [address] [place] [address] Result Comment: Nega tive for ds DNA Antibodies.<30 IU/mL Wkuxgqmk71-98 IU/mL Equivocal>74 IU/mL Positive Performed By: #### 5 1775-5, 65158-7, 83570-3, 13062-1, 78035-0, 92626-3, 76469-5, 01168-2, 54254-9, ANAIFR ####[facility] [id number] [place] [address] [place] CNPNon 02-01-2023 CNPN Normal [facility] CNOVon 01-27-2023 CNOV Normal [facility] HISTORY PHYSICALon HISTORY PHYSICAL Normal [facility] CNOVon 01-19-2023 CNOV Normal [facility] No Panel Informationon 01-19 [facility] XR SI JTS 2V AP PELV/FERGUSO Non 01-19-2023 XR SI JTS 2V AP PELV/GRANADOS Normal [facility] XR THORACIC 3V AP/LAT/SWIMME RSon 01-19-2023 XR THORACIC 3V AP/LAT/SWIMMERS Normal [facility] DXA-AXIAL SKELETONon 023 [facility] CBC panel Auto (Bld)on 12-10 Erythrocyte distribution width (RBC) [Ratio] 13.0 % 11.5 - 15.0 % [facility] Hematocrit (Bld) [Volume fraction] 44.9 % 36.0 - 46.0 % [facility] Hemoglobin (Bld) [Mass/Vol] 14.8 g/dL 11.5 - 15.5 g/dL [facility] MCH (RBC) [Entitic mass] 31.2 pg 26.0 - 34.0 pg [facility] MCHC (RBC) [Mass/Vol] 33.0 g/dL 30.5 - 36.0 g/dL [facility] MCV (RBC) [Entitic vol] 94.7 fL 80.0 - 100.0 fL [facility] Nucleated RBC (Bld) [#/Vol] <0.01 k/uL [facility] Platelet mean volume (Bld) [Entitic vol] 9.6 fL 9.0 - 12.7 fL [facility] Platelets (Bld) [#/Vol] 353 10*3/uL 150 - 400 k/uL [facility] RBC (Bld) [#/Vol] 4.74 10*6/uL 3.90 - 5.2 0 m/uL [facility] WBC (Bld) [#/Vol] 9.31 10*3/uL 3.70 - 11.00 k/uL [facility] COLONOSCOPY DIAGNOSTICon [facility] No Panel Informationon 08-13 [facility] Laboratory - Drug toxicology on 07-07-2022 Adalimumab [Mass/Vol] 4.45 ug/mL >=0.65 ug/mL [facility] No Panel Informationon 07-07 ADALIMUMAB NEUTRALIZING ANTIBODY Not detected Not Detected [facility] Pathology study See Note [facility] Laboratory - Microbiology an d Antimicrobial susceptibilityon 07-06-2022 M. tuberculosis tuberculin stim IFN-g Ql (Bld) Negative [facility] No Panel Informationon 07-06 Mitogen minus Nil >=0.50 IU/mL [facility] TB Gamma Interpretation Infection with M. tuberculosis complex is unlikely. If latent tuberculosis infection is highly suspected, a negative result does not rule out the infection. Specimens from immunocompromised patients and those <5 years of age may show false negative results. In case of a contact investigation, please repeat 8-12 weeks after a known exposure. [facility] TB Nil 0.01 IU/mL <=8.00 IU/mL [facility] TB1 Ag minus Nil 0.00 IU/mL <0.35 IU/mL [facility] TB2 Ag minus Nil 0.00 IU/mL <0.35 IU/mL [facility] CBC panel Auto (Bld)on 07-05 Erythrocyte distribution width (RBC) [Ratio] 13.1 % 11.5 - 15.0 % [facility] Hematocrit (Bld) [Volume fraction] 45.2 % 36.0 - 46.0 % [facility] Hemoglobin (Bld) [Mass/Vol] 14.4 g/dL 11.5 - 15.5 g/dL [facility] MCH (RBC) [Entitic mass] 31.2 pg 26.0 - 34.0 pg [facility] MCHC (RBC) [Mass/Vol] 31.9 g/dL 30.5 - 36.0 g/dL [facility] MCV (RBC) [Entitic vol] 97.8 fL 80.0 - 100.0 fL [facility] Nucleated RBC (Bld) [#/Vol] <0.01 k/uL [facility] Platelet mean volume (Bld) [Entitic vol] 10.1 fL 9.0 - 12.7 fL [facility] Platelets (Bld) [#/Vol] 245 10*3/uL 150 - 400 k/uL [facility] RBC (Bld) [#/Vol] 4.62 10*6/uL 3.90 - 5.2 0 m/uL [facility] WBC (Bld) [#/Vol] 6.35 10*3/uL 3.70 - 11.00 k/uL [facility] Comprehensive metabolic 2000 panelon 07-05-2022 Albumin [Mass/Vol] 4.7 g/dL 3.9 - 4.9 g/dL [facility] ALP [Catalytic activity/Vol] 61 U/L 34 - 123 U/L [facility] ALT [Catalytic activity/Vol] 8 U/L 7 - 38 U/L [facility] Anion gap [Moles/Vol] 9 mmol/L 9 - 18 mmol/L [facility] AST [Catalytic activity/Vol] 18 U/L 13 - 35 U/L [facility] Bilirubin [Mass/Vol] 0.5 mg/dL 0.2 - 1 .3 mg/dL [facility] Calcium [Mass/Vol] 9.5 mg/dL 8.5 - 10. 2 mg/dL [facility] Chloride [Moles/Vol] 105 mmol/L 97 - 10 5 mmol/L [facility] CO2 [Moles/Vol] 26 mmol/L 22 - 30 mmol/L [facility] Creatinine [Mass/Vol] 0.73 mg/dL 0.58 - 0.96 mg/dL [facility] Estimated Glomerular Filtration Rate 107 mL/min/1.73m >=60 mL/min/1.73 m [facility] Glucose [Mass/Vol] 96 mg/dL 74 - 99 mg/dL [facility] Potassium [Moles/Vol] 4.6 mmol/L 3.7 - 5.1 mmol/L [facility] Protein [Mass/Vol] 7.2 g/dL 6.3 - 8.0 g/dL [facility] Sodium [Moles/Vol] 140 mmol/L 136 - 144 mmol/L [facility] Urea nitrogen [Mass/Vol] 8 mg/dL 7 - 21 mg/dL [facility] Iron and Iron binding capaci ty panelon 07-05-2022 Iron [Mass/Vol] 103 ug/dL 41 - 186 ug/dL [facility] Iron binding capacity [Mass/Vol] 331 ug/dL 232 - 386 ug/dL [facility] Iron/TIBC [Molar ratio] 31.1 % 15.0 - 57.0 % [facility] Laboratory - Chemistry and C hemistry - challengeon 07-05-2022 25-hydroxyvitamin D3 [Mass/Vol] 35.8 ng/mL 31.0 - 80.0 ng/mL [facility] Cobalamin (Vitamin B12) [Mass/Vol] 284 pg/mL 232 - 1,245 pg/mL [facility] Ferritin [Mass/Vol] 68.0 ng/mL 14.7 - 205.1 ng/mL [facility] No Panel Informationon 07-05 Hepatitis A IgG Negative Negative [facility] Auth for Release of Medical Recordson 07-02-2022 Auth for Release of Medical Records [id number]:[email or web address] Normal [facility] Vital Signs Date Time Vital Sign Value Performing Clinician Kadie platt 10-18-2023 14:13-0500 Body temperature 98.1 [degF] Pedro Luis Bailey APPLICATION DEVELOPMENT PROJECT MANAGER.LABORER [employer] Work Phone: [facility] 10-18-2023 14:13-0500 Body weight 65.32 kg Pedro Luis Bailey APPLICATION DEVELOPMENT PROJECT MANAGER.LABORER [employer] Work Phone: [facility] 10-18-2023 14:13-0500 Diastolic blood pressure 72 mm[Hg] Pedro Luis Bailey APPLICATION DEVELOPMENT PROJECT MANAGER.LABORER [employer] Work Phone: [facility] 10-18-2023 14:13-0500 Heart rate 79 /min Pedro Luis Bailey APPLICATION DEVELOPMENT PROJECT MANAGER.LABORER [employer] Work Phone: [facility] 10-18-2023 14:13-0500 Respiratory rate 20 /min Pedro Luis Bailey APPLICATION DEVELOPMENT PROJECT MANAGER.LABORER [employer] Work Phone: [facility] 10-18-2023 14:13-0500 SaO2% (BldA) [Mass fraction] 100 % Pedro Luis Bailey APPLICATION DEVELOPMENT PROJECT MANAGER.LABORER [employer]ING Work Phone: [facility] 10-18-2023 14:13-0500 Systolic blood pressure 111 mm[Hg] Pedro Luis Bailey APPLICATION DEVELOPMENT PROJECT MANAGER.LABORER [employer] Work Phone: [facility] 10-18-2023 12:56-0500 Body height 159.3 cm Gautam Hill MD Work Phone: [facility] 10-18-2023 12:56-0500 Body temperature 98.1 [degF] Gautam Hill MD Work Phone: [facility] 10-18-2023 12:56-0500 Body weight 65.5 kg Gautam Hill MD Work Phone: [facility] 10-18-2023 12:56-0500 Diastolic blood pressure 72 mm[Hg] Gautam Hill MD Work Phone: [facility] 10-18-2023 12:56-0500 Heart rate 79 /min Gautam Hill MD Work Phone: [facility] 10-18-2023 12:56-0500 Respiratory rate 20 /min Gautam Hill MD Work Phone: [facility] 10-18-2023 12:56-0500 SaO2% (BldA) [Mass fraction] 100 % Gautam Hill MD Work Phone: [facility] 10-18-2023 12:56-0500 Systolic blood pressure 111 mm[Hg] Gautam Hill MD Work Phone: [facility] 09-23-2023 14:42-0400 Body weight 66.22 kg Luz Noriegaick APPLICATION DEVELOPMENT PROJECT MANAGER.LABORER [employer]ING Work Phone: [facility] 09-23-2023 14:42-0400 Diastolic blood pressure 70 mm[Hg] Luz Noriegaick APPLICATION DEVELOPMENT PROJECT MANAGER.LABORER [employer]ING Work Phone: [facility] 09-23-2023 14:42-0400 Heart rate 72 /min Luz Noriegaick APPLICATION DEVELOPMENT PROJECT MANAGER.LABORER [employer]ING Work Phone: [facility] 09-23-2023 14:42-0400 Systolic blood pressure 126 mm[Hg] Luz Noriegaick APPLICATION DEVELOPMENT PROJECT MANAGER.LABORER [employer]ING Work Phone: [facility] 09-14-2023 14:30-0400 Body weight 65.77 kg Parish Page MD Work Phone: [facility] 09-14-2023 14:30-0400 Diastolic blood pressure 70 mm[Hg] Parish Page MD Work Phone: [facility] 09-14-2023 14:30-0400 Heart rate 84 /min Parish Page MD Work Phone: [facility] 09-14-2023 14:30-0400 Systolic blood pressure 106 mm[Hg] Parish Page MD Work Phone: [facility] 09-05-2023 14:34-0400 Body height 160 cm Adrien Landers MD Work Phone: [facility] 09-05-2023 14:34-0400 Body weight 65.77 kg Adrien Landers MD Work Phone: [facility] 09-05-2023 14:34-0400 Diastolic blood pressure 68 mm[Hg] Adrien Landers MD Work Phone: [facility] 09-05-2023 14:34-0400 Heart rate 91 /min Adrien Landers MD Work Phone: [facility] 09-05-2023 14:34-0400 Systolic blood pressure 113 mm[Hg] Adrien Landers MD Work Phone: [facility] 05-20-2023 08:15-0400 Body height 160 cm Adrien Landers MD Work Phone: [facility] 05-20-2023 08:15-0400 Body weight 63.64 kg Adrien Landers MD Work Phone: [facility] 05-20-2023 08:15-0400 Diastolic blood pressure 71 mm[Hg] Adrien Landers MD Work Phone: [facility] 05-20-2023 08:15-0400 Heart rate 76 /min Adrien Landers MD Work Phone: [facility] 05-20-2023 08:15-0400 Systolic blood pressure 113 mm[Hg] Adrien Landers MD Work Phone: [facility] 05-19-2023 08:41-0400 Body weight 61.69 kg Luz Sims APRN.LABORER [employer] Work Phone: [facility] 05-19-2023 08:41-0400 Diastolic blood pressure 64 mm[Hg] Luz Sims APRN.LABORER [employer]ESSING Work Phone: [facility] 05-19-2023 08:41-0400 Heart rate 80 /min Luz Levi APPLICATION DEVELOPMENT PROJECT MANAGER.LABORER [employer]ESSING Work Phone: [facility] 05-19-2023 08:41-0400 Systolic blood pressure 106 mm[Hg] Luz Sims APRN.LABORER [employer]ING Work Phone: [facility] 02-11-2023 13:40-0400 Body height 160 cm Shelby Sankovic PA-C Work Phone: [facility] 02-11-2023 13:40-0400 Body temperature 98.6 [degF] Shelby Sankovic PA-C Work Phone: [facility] 02-11-2023 13:40-0400 Body weight 64.41 kg Shelby Sankovic PA-C Work Phone: [facility] 02-11-2023 13:40-0400 Diastolic blood pressure 70 mm[Hg] Shelby Sankovic PA-C Work Phone: [facility] 02-11-2023 13:40-0400 Heart rate 89 /min Shelby Sankovic PA-C Work Phone: [facility] 02-11-2023 13:40-0400 Respiratory rate 16 /min Shelby Sankovic PA-C Work Phone: [facility] 02-11-2023 13:40-0400 SaO2% (BldA) [Mass fraction] 98 % Shelby Sankovic PA-C Work Phone: [facility] 02-11-2023 13:40-0400 Systolic blood pressure 111 mm[Hg] Shelby Sankovic PA-C Work Phone: [facility] 01-27-2023 13:32-0500 Body height 160 cm Hilary Shaffer MD Work Phone: [facility] 01-27-2023 13:32-0500 Body temperature 97.2 [degF] Hilary Shaffer MD Work Phone: [facility] 01-27-2023 13:32-0500 Body weight 65.32 kg Hilary Shaffer MD Work Phone: [facility] 01-27-2023 13:32-0500 Diastolic blood pressure 71 mm[Hg] Hilary Shaffer MD Work Phone: [facility] 01-27-2023 13:32-0500 Heart rate 87 /min Hilary Shaffer MD Work Phone: [facility] 01-27-2023 13:32-0500 Respiratory rate 17 /min Hilary Shaffer MD Work Phone: [facility] 01-27-2023 13:32-0500 SaO2% (BldA) [Mass fraction] 98 % Hilary Shaffer MD Work Phone: [facility] 01-27-2023 13:32-0500 Systolic blood pressure 111 mm[Hg] Hilary Shaffer MD Work Phone: [facility] 01-19-2023 09:06-0500 Body weight 64.41 kg Franchesca Zuniga MD Work Phone: [facility] 01-19-2023 09:06-0500 Diastolic blood pressure 68 mm[Hg] Franchesca Zuniga MD Work Phone: [facility] 01-19-2023 09:06-0500 Heart rate 66 /min Franchesca Zuniga MD Work Phone: [facility] 01-19-2023 09:06-0500 Systolic blood pressure 110 mm[Hg] Franchesca Zuniga MD Work Phone: [facility] 12-10-2022 10:15-0500 Body height 160 cm Roro Ant APPLICATION DEVELOPMENT PROJECT MANAGER.LABORER [employer]ESSING Work Phone: [facility] 12-10-2022 10:15-0500 Body temperature 98.01 [degF] Roro Ant APPLICATION DEVELOPMENT PROJECT MANAGER.LABORER [employer]ESSING Work Phone: [facility] 12-10-2022 10:15-0500 Body weight 65.77 kg Roro Ant APPLICATION DEVELOPMENT PROJECT MANAGER.LABORER [employer]ESSING Work Phone: [facility] 12-10-2022 10:15-0500 Diastolic blood pressure 68 mm[Hg] Roro Ant APPLICATION DEVELOPMENT PROJECT MANAGER.LABORER [employer]ESSING Work Phone: [facility] 12-10-2022 10:15-0500 Heart rate 98 /min Roro Ant APPLICATION DEVELOPMENT PROJECT MANAGER.LABORER [employer]ING Work Phone: [facility] 12-10-2022 10:15-0500 SaO2% (BldA) [Mass fraction] 98 % Rroo Ant APPLICATION DEVELOPMENT PROJECT MANAGER.LABORER [employer]ESSING Work Phone: [facility] 12-10-2022 10:15-0500 Systolic blood pressure 137 mm[Hg] Roro Ant APPLICATION DEVELOPMENT PROJECT MANAGER.LABORER [employer]ESSING Work Phone: [facility] 12-03-2022 10:00-0500 Diastolic blood pressure 67 mm[Hg] Sheldon Abreu MD Work Phone: [facility] 12-03-2022 10:00-0500 Heart rate 70 /min Sheldon Abreu MD Work Phone: [facility] 12-03-2022 10:00-0500 SaO2% (BldA) [Mass fraction] 99 % Sheldon Abreu MD Work Phone: [facility] 12-03-2022 10:00-0500 Systolic blood pressure 101 mm[Hg] Sheldon Abreu MD Work Phone: [facility] 12-03-2022 09:49-0500 Respiratory rate 16 /min Sheldon Abreu MD Work Phone: [facility] 12-03-2022 08:14-0500 Body height 160 cm Sheldon Abreu MD Work Phone: [facility] 12-03-2022 08:14-0500 Body temperature 97.2 [degF] Sheldon Abreu MD Work Phone: [facility] 12-03-2022 08:14-0500 Body weight 63.5 kg Sheldon Abreu MD Work Phone: [facility] 08-13-2022 18:45-0400 Diastolic blood pressure 68 mm[Hg] Mri (I-Stat/1.5t/3t) Work Phone: [facility] 08-13-2022 18:45-0400 Heart rate 80 /min Mri (I-Stat/1.5t/3t) Work Phone: [facility] 08-13-2022 18:45-0400 Respiratory rate 20 /min Mri (I-Stat/1.5t/3t) Work Phone: [facility] 08-13-2022 18:45-0400 SaO2% (BldA) [Mass fraction] 99 % Mri (I-Stat/1.5t/3t) Work Phone: [facility] 08-13-2022 18:45-0400 Systolic blood pressure 117 mm[Hg] Mri (I-Stat/1.5t/3t) Work Phone: [facility] 07-05-2022 07:48-0400 Body height 160 cm Cuco Gonzalez MD Work Phone: [facility] 07-05-2022 07:48-0400 Body weight 66.32 kg Cuco Gonzalez MD Work Phone: [facility] 07-05-2022 07:48-0400 Diastolic blood pressure 68 mm[Hg] Cuco Gonzalez MD Work Phone: [facility] 07-05-2022 07:48-0400 Heart rate 80 /min Cuco Gonzalez MD Work Phone: [facility] 07-05-2022 07:48-0400 SaO2% (BldA) [Mass fraction] 99 % Cuco Gonzalez MD Work Phone: [facility] 07-05-2022 07:48-0400 Systolic blood pressure 112 mm[Hg] Cuco Gonzalez MD Work Phone: [facility] Encounters Encounter Date Encounter Type Care Provider Facility Start: 12-23-2023 End: 12-23-2023 ambulatory BRENDA LANDON Facility:[facility] Start: 12-22-2023 End: 12-23-2023 ambulatory BRENDA M JENAEY Facility:[facility] Start: 12-16-2023 End: 12-16-2023 ambulatory BRENDA M HOY Facility:[facility] Start: 12-09-2023 End: 12-10-2023 ambulatory BRENDA M HOY Facility:[facility] Start: 12-09-2023 Encounter for other preprocedural examination ADRIEN POLANCO LANDERS [facility] Start: 12-09-2023 End: 12-10-2023 ambulatory BRENDABEV LANDON Facility:[facility] Start: 11-23-2023 End: 11-23-2023 ambulatory BRENDA M DIPESH Facility:[facility] Start: 11-14-2023 Refill Pedro Luis Ruelas.LABORER [employer] Work Phone: Pulmonary Medicine Comment on above: Med Change Request Start: 10-18-2023 End: 10-18-2023 Office outpatient new 30 minutes Pedro Luis Bailey APRN.LABORER [employer] Work Phone: Pulmonary Medicine Comment on above: Cigarette nicotine d ependence without complication (Primary Dx) Start: 10-18-2023 End: 10-18-2023 ambulatory Gautam Hill MD Work Phone: Hematology/Oncology Comment on above: Antiphospholipid syn drome (HCC); Hypercoagulable state (HCC) Start: 10-18-2023 End: 10-18-2023 Patient encounter procedure Gautam Hill MD Work Phone: [facility] Start: 09-29-2023 End: 09-29-2023 ambulatory BRENDA LANDON Facility:[facility] Start: 09-23-2023 End: 09-23-2023 ambulatory BRENDA M Ammon Facility:[facility] Start: 09-23-2023 End: 09-23-2023 Patient encounter procedure Luz Sims APRN.LABORER [employer]ING Work Phone: Rheumatology Comment on above: 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); Raynaud's phenomenon without gangrene; HLA B27 (HLA B27 positive); Crohn's disease of both small and large intestine with other complication (HCC) Start: 09-22-2023 End: 09-22-2023 ambulatory BRENDABEV LANDON Facility:[facility] Start: 09-22-2023 End: 09-22-2023 ambulatory Hilary Shaffer MD Work Phone: Colorectal Surgery Comment on above: Crohn's disease of s mall and large intestines with complication (HCC) (Primary Dx); Antiphospholipid syndrome (HCC) Start: 09-22-2023 End: 09-22-2023 Telemedicine consultation with patient Hilary Shaffer MD Work Phone: [facility] Start: 09-22-2023 End: 09-22-2023 ambulatory EUNICE ARMSTRONG Facility:[facility] Start: 09-20-2023 Telephone encounter Shashank Ruelas Gastroenterology Comment on above: Education Of Patient /family (PREP QUESTION, PREP NEEDED) Patient Update; Estefany ent Question Start: 09-19-2023 Refill Parish camara MD Work Phone: Vascular Medicine [place] Comment on above: Med Change Request Start: 09-16-2023 Telephone encounter Joanie del rio [facility] Other Phone: [facility] Comment on above: Anticoagulation Tele phone Fu (Patient Update) Start: 09-15-2023 ambulatory Hilary ruelas MD Work Phone: Colorectal Surgery Comment on above: [facility] is Start: 09-14-2023 End: 09-14-2023 Orders Only Chelsea Carvalho APRN.LABORER [employer] Work Phone: Gynecology Comment on above: Pre-op testing (Prim oswald Dx) Antiphospholipid syn drome (HCC) (Primary Dx); Hypercoagulable state (HCC) Start: 09-14-2023 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 Francisca Carvalho APRN.LABORER [employer]ESSING Work Phone: [facility] Work Phone: Start: 09-05-2023 End: 09-05-2023 ambulatory BRENDA EMANUELAmmon Facility:[facility] Start: 09-05-2023 End: 09-05-2023 Patient encounter procedure Adrien Landers MD Work Phone: Obstetrics/Gynecology Comment on above: Adenomyosis; Dysmenorrhea; Abnormal uterine bleeding Start: 07-20-2023 ambulatory Adrien Landers MD Work Phone: Gynecology Comment on above: MRI of Pelvis Start: 07-12-2023 End: 07-13-2023 ambulatory [facility] Facility:[facility] Start: 06-22-2023 End: 06-22-2023 [facility] Facility:[facility] Start: 06-16-2023 Telephone encounter Ankita Cleveland RN Gastroenterology Comment on above: Insurance Authorizat ion (Humira/) Start: 06-08-2023 End: 06-08-2023 ambulatory [facility] Facility:[facility] Start: 06-06-2023 Orders Only Franchesca alamo MD Work Phone: Rheumatology Comment on above: Abnormal coagulation profile (Primary Dx) Start: 05-20-2023 End: 05-21-2023 ambulatory FRANCHESCA ZUNIGA Facility:[facility] Start: 05-20-2023 End: 05-20-2023 Patient encounter procedure Adrien Landers MD Work Phone: Gynecology Comment on above: Endometriosis; Pelvic pain in female Start: 05-19-2023 End: 05-19-2023 ambulatory FRANCHESCA ZUNIGA Facility:[facility] Start: 05-19-2023 End: 05-19-2023 Patient encounter procedure Luz Sims APRN.LABORER [employer] Work Phone: Rheumatology Comment on above: 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); Back stiffness; Bilateral sacroiliitis (HCC); Vision changes; Crohn's disease of both small and large intestine with other complication (HCC) Start: 05-17-2023 Refill Pedro Israel PA-C Work Phone: [facility] Comment on above: Refill Request Start: 05-16-2023 ambulatory [facility] Pharmacist Work Phone: [facility] Comment on above: [employer]ira Insurance Michelet roval- Action Required! Start: 05-16-2023 E-mail encounter aishwarya vargas caregiver [facility] Pharmacist Work Phone: [facility] Start: 05-13-2023 ambulatory Eren Willard [facility] Start: 05-13-2023 Patient encounter procedure Eren Willard [facility] Comment on above: SPP Inflammatory Con ditions - Treatment Referral (Humira); Insurance Authorization (PA submission pending) Start: 05-11-2023 Telephone encounter Ankita Cleveland RN Gastroenterology Comment on above: Orders (Humira Induc tion & Maintenance) Start: 05-10-2023 End: 05-10-2023 ambulatory BRENDA Vargas Ammon Facility:[facility] Start: 04-11-2023 E-mail encounter aishwarya vargas caregiver [facility] Provider [facility] Start: 04-11-2023 Patient encounter procedure [facility] Provider [facility] Comment on above: MIGS consult Start: 03-30-2023 E-mail encounter aishwarya vargas caregiver Pedro LIND-Josseline Work Phone: [facility] Start: 03-30-2023 Follow-up encounter Pedro mayfield PA-C Work Phone: Gastroenterology Comment on above: follow up on todays visit Start: 03-29-2023 End: 03-29-2023 ambulatory BRENDA M [facility] Facility:[facility] Start: 03-29-2023 End: 03-29-2023 ambulatory Pedro Israel PA-Josseline Work Phone: Gastroenterology Comment on above: Crohn's disease of s mall and large intestines with complication (HCC) (Primary Dx) Start: 03-29-2023 End: 03-29-2023 Telemedicine consultation with patient Pedor Ribshaynew PA-C Work Phone: [facility] Start: 03-24-2023 End: 03-24-2023 ambulatory Hilary Shaffer MD Work Phone: Colorectal Surgery Comment on above: Crohn's disease of s mall and large intestines with complication (HCC) (Primary Dx) Start: 03-24-2023 End: 03-24-2023 Telemedicine consultation with patient Hilary Shaffer MD Work Phone: [facility] Start: 03-07-2023 Emergency department patient visit BRENDA LANDON Facility:[facility] Start: 03-07-2023 Telephone encounter Cara Ruelas Colorectal Surgery Comment on above: Pilot - O ther; Patient Question Start: 03-04-2023 End: 03-05-[address] BRENDA LANDON . Facility: Start: 03-02-2023 Telephone encounter Hilary snyder MD Work Phone: Colorectal Surgery Comment on above: Results Start: 03-01-2023 Telephone encounter Cara Tovar R Radha Colorectal Surgery Comment on above: Returning Patient's Call; Pilot - Other; Patient Question Start: 02-28-2023 ambulatory Hilary ruelas MD Work Phone: Colorectal Surgery Comment on above: Right Lower abdomina l pain Start: 02-27-2023 Orders Only Franchesca alamo MD Work Phone: Rheumatology Comment on above: Abnormal blood coagu lation profile (Primary Dx) Start: 02-23-2023 Telephone encounter Landy Souza RN NOC Comment on above: Follow Up Phone Call (All Clear) Start: 02-17-2023 End: 02-17-2023 ambulatory BRENDA LANDON Facility:[facility] Start: 02-14-2023 End: 02-17-2023 Evaluation and management of inpatient BRENDA LANDON Facility:[facility] Start: 02-14-2023 ambulatory Roor HAND RN.LABORER [employer] Work Phone: Gastroenterology Comment on above: Vitamin D Start: 02-14-2023 E-mail encounter fro m caregiver Roro Cain APRN.LABORER [employer] Work Phone: [facility] Start: 02-11-2023 End: 02-12-2023 ambulatory BRENDA LANDON Facility:[facility] Start: 02-11-2023 Encounter for other preprocedural examination SHELBY GARCIA [facility] Start: 02-11-2023 End: 02-11-2023 Patient encounter procedure Shelby Garcia PA-C Work Phone: Colorectal Surgery Comment on above: Preoperative examina tion (Primary Dx) Start: 02-11-2023 End: 02-11-2023 Preprocedural examination done Shelby Garcia PA-C Work Phone: Colorectal Surgery Start: 02-11-2023 End: 02-12-2023 ambulatory Nurse Pt Ed Cors Work Phone: Colorectal Surgery Comment on above: Patient Education Start: 02-06-2023 [facility]mission to [facility] Hilary Shaffer MD Work Phone: Colorectal Surgery Comment on above: Surgery Date Start: 02-06-2023 ambulatory Hilary ruelas MD Work Phone: [facility] Start: 02-01-2023 Telephone encounter Cara Ruelas Colorectal Surgery Comment on above: Pilot - O ther; Patient Update Start: 01-28-2023 ambulatory Hilary ruelas MD Work Phone: Colorectal Surgery Start: 01-27-2023 End: 01-28-2023 ambulatory RORO ANT Facility:[facility] Start: 01-27-2023 End: 01-27-2023 Patient encounter procedure Hilary Shaffer MD Work Phone: Colorectal Surgery Comment on above: Crohn's disease of s mall and large intestines with complication (HCC) Start: 01-24-2023 Orders Only Venice Bonilla RP Work Phone: Gastroenterology Start: 01-20-2023 Telephone encounter Venice chao [facility] Work Phone: Gastroenterology Comment on above: Medication Follow-up Start: 01-19-2023 End: 01-19-2023 ambulatory FRANCHESCA ZUNIGA Facility:[facility] Start: 01-19-2023 End: 01-19-2023 Patient encounter procedure Franchesca Zuniga MD Work Phone: Rheumatology Comment on above: 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); Bilateral sacroiliitis (HCC); Back stiffness, history; HLA B27 (HLA B27 positive); Crohn's disease of both small and large intestine with other complication (HCC); Stricture intestinal (HCC); Vitamin D deficiency; Raynaud's phenomenon without gangrene; Cigarette smoker motivated to quit; Pers History of multiple miscarriages; Vision changes; Counseling on health promotion and disease prevention Start: 12-31-2022 End: 01-01-2023 ambulatory [facility] Facility:[facility] Start: 12-31-2022 End: 12-31-2022 ambulatory Venice Bonilla [facility] Work Phone: Gastroenterology Comment on above: Crohn's disease of s mall and large intestines with complication (HCC) (Primary Dx) Start: 12-31-2022 End: 12-31-2022 Telemedicine consultation with patient Venice Bonilla [facility] Work Phone: [facility] Start: 12-24-2022 End: 12-24-2022 Subsequent hospital visit by physician [facility] A21 2 Radiology Comment on above: intermediate current us e of systemic steroids [Z79.52] Start: 12-13-2022 Orders Only Roro HAND RN.LABORER [employer] Work Phone: Gastroenterology Comment on above: Vitamin D deficiency (Primary Dx) Start: 12-10-2022 End: 12-10-2022 Patient encounter procedure Roro Cain APRN.LABORER [employer] Work Phone: Gastroenterology Comment on above: Crohn's disease of s mall and large intestines with complication (HCC) (Primary Dx); 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 Start: 12-03-2022 End: 12-03-2022 Subsequent hospital visit by physician Shledon Abreu MD Work Phone: Gastroenterology Comment on above: Crohn's disease of b oth small and large intestine without complication (HCC) [K50.80] Start: 11-25-2022 Telephone encounter Ana Paula ruelas solution coordinator Comment on above: Appointment Start: 10-27-2022 Telephone encounter Elda ruelas Research Coord[facility] Comment on above: Research F/U Start: 09-24-2022 End: 09-24-2022 Nursing evaluation of patient and report Nurse [facility] Gastroenterology Comment on above: Crohn's disease of b oth small and large intestine without complication (HCC); Crohn's disease of small and large intestines with complication (HCC) Start: 09-17-2022 Telephone encounter Elda ruelas [facility] Coordinator [facility] Comment on above: Research F/U Start: 08-30-2022 Telephone encounter Elda ruelas [facility] Coordinator [facility] Comment on above: Research Start: 08-18-2022 Telephone encounter Elda ruelas Research Coordinator [facility] Comment on above: Patient Update Start: 08-13-2022 End: 08-13-2022 Subsequent hospital visit by physician [facility] Main Q Work Phone: MRI Q Comment on above: Crohn's disease of b oth small and large intestine without complication (HCC) [K50.80] Start: 08-13-2022 ambulatory Kelley Menchaca RN MRI Q Comment on above: Patient Education Start: 08-13-2022 Chart abstracting [facility] Start: 07-05-2022 End: 07-05-2022 Patient encounter procedure Cuco Gonzalez MD Work Phone: Gastroenterology Comment on above: Crohn's disease of b oth small and large intestine without complication (HCC) (Primary Dx); Crohn's disease of small and large intestines with complication (HCC); Bloating Start: 07-01-2022 Telephone encounter Soledad Bhatia RNsolution coordinator Comment on above: Request Outside [facility] Records Start: 10-25-2018 End: 10-25-2018 Patient encounter procedure [facility] Division of Rheumatology Comment on above: Appointment Procedures Date Procedure Procedure Detail Performing Clinician Start: 12-09-2023 Antibody screen BRENDA LANDON Comment on above: Order Comment: Speci men Type: BLOOD SPECIMENOrdering Facility: [facility] Address: [address] [place] [address] Performed By: #### T [id number] ####CC MAIN BLOOD BANKCLIA [id number] [address] Start: 09-22-2023 Colonoscopy BRENDA Verde Start: 02-11-2023 Antibody screen BRENDA LANDON Comment on above: Order Comment: Speci men Type: BLOOD SPECIMENOrdering Facility: [facility] Address: [address] [place] [address] Performed By: #### T SCR30 ####CC MAIN BLOOD BANKCLIA [id number] [address] Start: 12-24-2022 Dxa bone density pablo dy 1/> sites axial skel Roro Cain APRN.CNP Work Phone: Start: 12-03-2022 Colonoscopy flx dx w /collj spec when pfrmd Jennifer Flores MD Work Phone: Start: 09-24-2022 Breath hydrogen/methane test Jennifer Flores MD Work Phone: Start: 08-13-2022 MRI ABD ENTEROG WO/W IVCON Jennifer Flores MD Work Phone: Start: 08-13-2022 Mri pelvis w/o & w/c ontrast material Jennifer Flores MD Work Phone: Plan of Treatment Date Care Activity Detail Author Start: 2043 HEPATITIS B (1 of 3 - Risk 3-dose series) HEPATITIS B (1 of 3 - Risk 3-dose series) [facility] Start: 2043 Hepatitis B Vaccine (1 of 3 - Risk 3-dose series) Hepatitis B Vaccine (1 of 3 - Risk 3-dose series) [facility] Start: 10-10-2023 End: 01-09-2024 Centromere Ab [Presence] in Serum by Immunofluorescence ANTI-CENTROMERE AB Lab Routine Raynaud's phenomenon without gangrene Expected: 10/10/2023, Expires: 01/09/2024 [facility] Work Phone: Comment on above: Expected: 10/10/2023, Expires: 4 Start: 09-14-2023 End: 09-14-2024 CBC W Auto Differential panel - Blood CBC + DIFF Lab Routine Pre-op testing Expected: 09/14/2023, Expires: 09/14/2024 [facility] Work Phone: Comment on above: Expected: 09/14/2023, Expires: 4 Start: 09-14-2023 End: 12-14-2023 PT panel - Platelet poor plasma by Coagulation assay PROTHROMBIN TIME/PT Lab Routine Antiphospholipid syndrome (HCC) Expected: 09/14/2023, Expires: 12/14/2023 [facility] Work Phone: Comment on above: Expected: 09/14/2023, Expires: 4 Start: 07-29-2023 Influenza vaccination [facility] Start: 05-14-2023 End: 07-14-[address]UPUS ANTICO[address] Lab Routine Abnormal blood coagulation profile Expected: 05/14/2023, Expires: 07/14/2023 [facility] Work Phone: Comment on above: Expected: 05/14/2023, Expires: 3 Start: 2023 Mammography [facility] Start: 2023 Screening for malignant neoplasm of breast Mammogram Screening [facility] Start: 02-11-2023 End: 03-14-2023 CBC panel - Blood by Automated count CBC Lab Routine Crohn's disease of small and large intestines with complication (HCC) Expected: 02/11/2023 (Approximate), Expires: 03/14/2023 [facility] Work Phone: Comment on above: Expected: 02/11/2023 (Approximate), Expi res: 03/14/2023 Start: 02-11-2023 End: 03-14-2023 Comprehensive metabolic 2000 panel - Serum or Plasma COMP METABOLIC PANEL Lab Routine Crohn's disease of small and large intestines with complication (HCC) Expected: 02/11/2023, Expires: 03/14/2023 [facility] Work Phone: Comment on above: Expected: 02/11/2023, Expires: Start: 02-11-2023 End: 03-14-2023 CONFIRM BLOOD TYPE CONFIRM BLOOD TYPE Blood Bank Routine Crohn's disease of small and large intestines with complication (HCC) Expected: 02/11/2023, Expires: 03/14/2023 [facility] Work Phone: Comment on above: Expected: 02/11/2023, Expires: 3 Start: 02-11-2023 End: 03-14-2023 TYPE AND SCREEN,30 DAY TYPE AND SCREEN,30 DAY Blood Bank Routine Crohn's disease of small and large intestines with complication (HCC) Expected: 02/11/2023, Expires: 03/14/2023 [facility] Work Phone: Comment on above: Expected: 02/11/2023, Expires: 3 Start: 02-09-2023 End: 04-11-2023 25-hydroxyvitamin D3 [Mass/volume] in Serum or Plasma VITAMIN D 25 HYDROXY Lab Routine SpondyloArthritis associated with inflammatory bowel disease Crohn's disease of both small and large intestine with other complication (HCC) Vitamin D deficiency Expected: 02/09/2023, Expires: 04/11/2023 [facility] Work Phone: Comment on above: Expected: 02/09/2023, Expires: 3 Start: 02-09-2023 End: 04-11-2023 LYLA BY IFA WITH REFLEX LYLA BY IFA WITH REFLEX Lab Routine SpondyloArthritis associated with inflammatory bowel disease Crohn's disease of both small and large intestine with other complication (HCC) Expected: 02/09/2023, Expires: 04/11/2023 [facility] Work Phone: Comment on above: Expected: 02/09/2023, Expires: 3 Start: 02-09-2023 End: 04-11-2023 C reactive protein [Mass/volume] in Serum or Plasma C-REACTIVE PROTEIN (CRP) Lab Routine SpondyloArthritis associated with inflammatory bowel disease Crohn's disease of both small and large intestine with other complication (HCC) Expected: 02/09/2023, Expires: 04/11/2023 [facility] Work Phone: Comment on above: Expected: 02/09/2023, Expires: 3 Start: 02-09-2023 End: 04-11-2023 Cyclic citrullinated peptide IgG Ab [Units/volume] in Serum or Plasma CCP ANTIBODY IGG Lab Routine SpondyloArthritis associated with inflammatory bowel disease Crohn's disease of both small and large intestine with other complication (HCC) Expected: 02/09/2023, Expires: 04/11/2023 [facility] Work Phone: Comment on above: Expected: 02/09/2023, Expires: 3 Start: 02-09-2023 End: 04-11-[address]UPUS ANTICOAG PL Lab Routine SpondyloArthritis associated with inflammatory bowel disease Crohn's disease of both small and large intestine with other complication (HCC) Raynaud's phenomenon without gangrene Pers History of multiple miscarriages Expected: 02/09/2023, Expires: 04/11/2023 [facility] Work Phone: Comment on above: Expected: 02/09/2023, Expires: 3 Start: 02-09-2023 End: 04-11-2023 Parathyrin.intact [Mass/volume] in Serum or Plasma PTH INTACT BLD Lab Routine SpondyloArthritis associated with inflammatory bowel disease Crohn's disease of both small and large intestine with other complication (HCC) Vitamin D deficiency Expected: 02/09/2023, Expires: 04/11/2023 [facility] Work Phone: Comment on above: Expected: 02/09/2023, Expires: 3 Start: 02-09-2023 End: 04-11-2023 Rheumatoid factor [Units/volume] in Serum or Plasma RHEUMATOID FACTOR BL Lab Routine SpondyloArthritis associated with inflammatory bowel disease Crohn's disease of both small and large intestine with other complication (HCC) Expected: 02/09/2023, Expires: 04/11/2023 [facility] Work Phone: Comment on above: Expected: 02/09/2023, Expires: 3 Start: 12-10-2022 End: 02-09-2023 25-hydroxyvitamin D3 [Mass/volume] in Serum or Plasma [facility] Work Phone: Comment on above: Expected: 12/10/2022, Expires: 3 Start: 12-10-2022 End: 02-09-2023 BLOOD TB SCREEN [facility] Work Phone: Comment on above: Expected: 12/10/2022, Expires: 3 Start: 12-10-2022 End: 02-09-2023 Chronic hepatitis differentiation between hepatitis B and C virus panel - Serum or Plasma [facility] Work Phone: Comment on above: Expected: 12/10/2022, Expires: 3 Start: 12-10-2022 End: 02-09-2023 Cobalamin (Vitamin B12) [Mass/volume] in Serum or Plasma [facility] Work Phone: Comment on above: Expected: 12/10/2022, Expires: 3 Start: 12-10-2022 End: 02-09-2023 Comprehensive metabolic 2000 panel - Serum or Plasma [facility] Work Phone: Comment on above: Expected: 12/10/2022, Expires: 3 Start: 12-10-2022 End: 02-09-2023 Ferritin [Mass/volume] in Serum or Plasma [facility] Work Phone: Comment on above: Expected: 12/10/2022, Expires: 3 Start: 12-10-2022 End: 02-09-2023 Hepatitis A virus IgM Ab [Presence] in Serum [facility] Work Phone: Comment on above: Expected: 12/10/2022, Expires: 3 Start: 12-10-2022 End: 02-09-2023 Iron and Iron binding capacity panel - Serum or Plasma [facility] Work Phone: Comment on above: Expected: 12/10/2022, Expires: 3 Start: 11-28-2022 DEPRESSION ASSESSMENT DEPRESSION ASSESSMENT [facility] Start: 07-29-2022 Influenza vaccination INFLUENZA (#1) [facility] Start: 11-28-2021 DEPRESSION ASSESSMENT DEPRESSION ASSESSMENT [facility] Start: 10-30-2018 End: 10-30-2018 Ambulatory 10/30/2018 Office Visit Rheumatology Josh Burden MD [address] [place] [address] [phone] Division of Rheumatology Start: 07-29-2018 Influenza vaccination INFLUENZA VACCINE (#1) [facility] Work Phone: Start: 2013 HPV TESTING HPV TESTING [facility] Start: 2013 Screening for malignant neoplasm of cervix HPV Testing [facility] Start: 02-16-2004 PAP TESTING PAP TESTING [facility] Start: 02-16-2004 Screening for malignant neoplasm of cervix [facility] Start: 2002 HEPATITIS A (1 of 2 - Risk 2-dose series) HEPATITIS A (1 of 2 - Risk 2-dose series) [facility] Start: 2002 Hepatitis A Vaccine (1 of 2 - Risk 2-dose series) Hepatitis A Vaccine (1 of 2 - Risk 2-dose series) [facility] Start: 2002 SHINGRIX VACCINE (1 of 2) SHINGRIX VACCINE (1 of 2) [facility] Start: 2002 Third diphtheria, tetanus and acellular pertussis (DTaP) vaccination TDAP (ADULT) [facility] Work Phone: Start: 2002 Urine microalbumin profile [facility] Start: 2001 HEPATITIS C SCREENING HEPATITIS C SCREENING [facility] Start: 2001 HIV SCREENING HIV SCREENING [facility] Start: 2001 HIV screening HIV Screening [facility] Start: 2001 MMR (1 of 2 - Risk 2-dose series) MMR (1 of 2 - Risk 2-dose series) [facility] Start: 2001 MMR Vaccine (1 of 2 - Risk 2-dose series) MMR Vaccine (1 of 2 - Risk 2-dose series) [facility] Start: 2001 Tetanus vaccination TETANUS [facility] Work Phone: Start: 02-16-1996 HIV screening HIV SCREENING DISCUSSION [facility] Work Phone: Start: 1995 Adult depression screening assessment DEPRESSION SCREENING [facility] Start: 1993 Meningococcal B Vaccine: Consider Based On Risk (1 of 4 - Increased Risk) Meningococcal B Vaccine: Consider Based On Risk (1 of 4 - Increased Risk) [facility] Start: 1993 MENINGOCOCCAL B: Consider based on risk (1 of 4 - Increased Risk Bexsero 2-dose series) MENINGOCOCCAL B: Consider based on risk (1 of 4 - Increased Risk Bexsero 2-dose series) [facility] Start: 1993 MENINGOCOCCAL B: Consider based on risk (1 of 4 - Increased Risk) MENINGOCOCCAL B: Consider based on risk (1 of 4 - Increased Risk) [facility] Start: 1989 PNEUMOCOCCAL (1 - PCV) PNEUMOCOCCAL (1 - PCV) [facility] Start: 1989 [facility] Start: 02-16-1988 COVID-19 VACCINE (#1) COVID-19 VACCINE (#1) [facility] Start: 02-16-1984 HEPATITIS A (1 of 2 - Risk 2-dose series) HEPATITIS A (1 of 2 - Risk 2-dose series) [facility] Start: 1983 COVID-19 VACCINE (#1) COVID-19 VACCINE (#1) [facility] End: 07-05-2023 BREATH TEST GLUCOSE BREATH TEST GLUCOSE Endoscopy Routine Crohn's disease of both small and large intestine without complication (HCC) Crohn's disease of small and large intestines with complication (HCC) 1 Occurrences starting 07/05/2022 until 07/05/2023 [facility] Work Phone: Comment on above: 1 Occurrences starting 07/05/2022 until 07/05/2023 BREATH TEST GLUCOSE BREATH TEST GLUCOSE Endoscopy Routine Crohn's disease of both small and large intestine without complication (HCC) Crohn's disease of small and large intestines with complication (HCC) 09/24/2022 [facility] Work Phone: End: 07-05-2023 COLONOSCOPY DIAGNOSTIC COLONOSCOPY DIAGNOSTIC Endoscopy Routine Crohn's disease of both small and large intestine without complication (HCC) Crohn's disease of small and large intestines with complication (HCC) 1 Occurrences starting 07/05/2022 until 07/05/2023 [facility] Work Phone: Comment on above: 1 Occurrences starting 07/05/2022 until 07/05/2023 End: 01-09-2024 DXA-AXIAL SKELETON DXA-AXIAL SKELETON Radiology Routine 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 1 Occurrences starting 12/10/2022 until 01/09/2024 [facility] Work Phone: Comment on above: 1 Occurrences starting 12/10/2022 until 01/09/2024 End: 01-29-2024 ECG COMPLETE ECG COMPLETE ECG Routine Crohn's disease of small and large intestines with complication (HCC) 1 Occurrences starting 01/29/2023 until 01/29/2024 [facility] Work Phone: Comment on above: 1 Occurrences starting 01/29/2023 until 01/29/2024 H&P for surgery H&P FOR SURGERY Procedures Routine Crohn's disease of small and large intestines with complication (HCC) Ordered: 01/29/2023 [facility] Work Phone: Comment on above: Ordered: 01/29/2023 End: 08-04-2023 MRI ABD ENTEROG WO/W IVCON MRI ABD ENTEROG WO/W IVCON Radiology Routine Crohn's disease of both small and large intestine without complication (HCC) Crohn's disease of small and large intestines with complication (HCC) 1 Occurrences starting 07/05/2022 until 08/04/2023 [facility] Work Phone: Comment on above: 1 Occurrences starting 07/05/2022 until 08/04/2023 End: 08-04-2023 Mri pelvis w/o & w/contrast material MRI PEL ENTEROG WO/W IVCON Radiology Routine Crohn's disease of both small and large intestine without complication (HCC) Crohn's disease of small and large intestines with complication (HCC) 1 Occurrences starting 07/05/2022 until 08/04/2023 [facility] Work Phone: Comment on above: 1 Occurrences starting 07/05/2022 until 08/04/2023 Mri pelvis w/o & w/contrast material MRI FEMALE PELVIS WO/W IVCON Radiology Routine Endometriosis Pelvic pain in female 1 Occurrences starting 05/20/2023 [facility] Work Phone: Comment on above: 1 Occurrences starting 05/20/2023 PT ED PATIENT INFORMATION PT ED PATIENT INFORMATION Other 01/19/2023 [facility] Work Phone: REFER FOR ADMIT INTERVIEW REFER FOR ADMIT INTERVIEW Procedures Routine Crohn's disease of small and large intestines with complication (HCC) Ordered: 01/29/2023 [facility] Work Phone: Comment on above: Ordered: 01/29/2023 SURGICAL PATHOLOGY [facility] Work Phone: Comment on above: Release Upon Ordering for 1 Occurrences starting 12/03/2022, [address] [facility] Immunizations Immunization Date Immunization Notes Care Provider Chandrakant leyva 01-30-2023 influenza virus vacc ine, unspecified formulation Adrien Landers MD Work Phone: [facility] Payers Date Payer Category Payer Unknown MMO MMO [employer] [id number] 2022-Present [phone] [address] [place] [address] [facility] [id number] 2022 Unknown [id number] 1983 Unknown [id number] 1961 Unknown [id number] Social History Date Type Detail Facility [facility]: [facility]11-[facility] Work Phone: End: 09-28-2012 History of tobacco use Current smoker [facility] Work Phone: Start: 1985 Sex Assigned At Not on file O [facility] Work Phone: Tobacco smoking stat [facility] Tobacco smoking consumption unknown [facility] Start: 06-25-2022 End: 08-13-2022 Exposure to SARS-CoV-2 (event) Not sure [facility] Start: 12-10-2022 End: 09-05-2023 Tobacco smoking status NHIS Smokes tobacco daily [facility] History of tobacco use Cigarette Smoker [facility] Start: 12-10-2022 End: 09-05-2023 Tobacco use and exposure Smokeless tobacco non-user [facility] Start: 12-10-2022 End: 10-18-2023 Alcohol intake Current drinker of alcohol (finding) [facility] Start: 04-13-2023 End: 05-10-2023 Cigarettes smoked current (pack per day) - Reported 0.5 [facility] Start: 05-10-2023 Alcohol Comment Twice a week [facility] Start: 04-13-2023 End: 05-20-2023 Tobacco use panel [facility] Adult Depression Screening Assessment 2 [facility] History of tobacco use Passive smoker [facility] Clinical Notes 07-01-2022 to 12-23-2023 Telephone Encounter - Mamta Patel - 11/14/2023 1:16 PM ESTPatient InstructionsPedro Luis Bailey APRN.LABORER [employer]LL[employer]ESSING - 10/18/2023 2:34 PM ESTSGautam sky MD - 10/18/2023 1:00 PM EST Note Date & Type Note [facility] 12-23-2023 Note [facility] 12-23-2023 Note [facility] 12-22-2023 Note [facility] 12-22-2023 Note [facility] 12-09-2023 Note [facility] 12-09-2023 Note [facility] 11-23-2023 Note [facility] 11-14-2023 Miscellaneous Notes Images from the original note were not included. documented in this encounter [facility] 10-18-2023 Note [facility] 10-18-2023 Note [facility] 10-18-2023 Instructions Pedro Luis Bailey APRN.LABORER SHELLF[employer] PROCESSING - 10/18/2023 2:56 PM EST Nicotine Lozenges/ Gum :use 1 piece of lozenge/gum when urge to smoke occurs. If strong or frequent cravings are present after 1 piece of gum, may use a second piece within the hour (do not continuously use one piece after the other).Use according to the following 12-week dosing schedule: Weeks 1 to 6: use 1 piece of lozenge/ gum every 1 to 2 hours (maximum: 24 pieces/day); to increase chances of quitting, chew at least 9 pieces/day during the first 6 weeks Weeks 7 to 9: use 1 piece of lozenge/gum every 2 to 4 hours (maximum: 24 pieces/day) Weeks 10 to 12: use1 piece of lozenge/gum every 4 to 8 hours (maximum: 24 pieces/day) Daily medication to reduce cravings - Bupropion (also called Wellbutrin or Zyban) - take one pill a day (150 mg) for 3 days, then increase to 2 pills a day (300 mg) Smoking Cessation [facility] with eCoaching - Someone will reach out to you to join the smoking cessation program - IF YOU DO NOT HEAR FROM SOMEONE, Please call [phone] SMOKING CESSATION Stopping smoking is the most important thing you can do to protect your current and future health, as well as that of your family. It is the most potent risk factor for the future development of coronary artery disease and heart attacks. Smoking is both an addiction and a learned behavior. The nicotine withdrawal takes anywhere from 2-4 weeks and results in symptoms such as irritability, fatigue, insomnia, coughing, dizziness, poor concentration, hunger and cigarette cravings. After the nicotine withdrawal period, the learned linkage between certain acts or situations and cigarette use remain. Strategies to deal with these must be developed along with new behaviors to ensure successful smoking cessation. STRATEGIES TOWARD SMOKING CESSATION - Make a list of the reasons why you want to quit, plus the benefits to be gained, and compare them to the reasons why you should continue to smoke. - Pick a specific quit date. - If you are interested in using nicotine patches or gum to assist with the nicotine withdrawal, let the staff know. - Inform friends, family, and co-workers that you are quitting and when your quit date is. Ask for their understanding and support. - Prepare your environment by removing all cigarettes prior to your quit date. - Prior to your quit date, avoid smoking in places where you spend a lot of time (such as the house, work, car). - From previous quit attempts, identify what helped you to stop smoking. - From previous quit attempts, identify what triggered relapse. How can you avoid that again? - What things (situations, emotions) do you anticipate will be most challenging, especially in the first few weeks, to your quitting effort? - What can you do to address these challenges? - Avoid (or limit) alcohol consumption during the quitting process. - If your spouse or close coworker currently smoke, consider quitting together or at the very least, develop specific plans to maintain your cigarette abstinence while in the home or at work. - Take each day, each hour, each craving, one at a time. Every step or action you take toward smoking cessation is a success. The only failure is the failure to try. - The health of you and your family, is worth the effort. STOP SMOKING CHECK LIST Preparing to Quit: ___ Make a personal pact with yourself to quit. ___ Pick a date for quitting completely. (My date to quit is ____.) ___ Write down on a card the three most important reasons for quitting. Carry the card with you from now on. Look at it several times a day. ___ Prior to quitting, eliminate smoking completely in 2 or 3 of your high risk situations. ___ Reduce consumption to one pack per day or less. ___ Change to a less desirable brand of cigarettes. ___ Discard your carcass trimmer. Use matches. Carry your cigarettes in a different place. ___ Spend a little time each day picturing in your mind stressful events occurring in the future and you not smoking. Actual Quitting: The First Two Weeks ___ Get rid of all cigarettes. Put away all smoking related objects such as ashtrays. Ask the people you live with not to smoke in your presence for the first two weeks. ___ Spend as much time as possible with non-smoking people. ___ Keep busy, especially on evenings and weekends. ___ Avoid high risk situations (large parties, bars, etc.). ___ Spend lots of time in places that prohibit or discourage smoking (e.g., theaters, libraries.) ___ Drink plenty of fluids. ___ Don't substitute food or sugar based products for cigarettes. Use approved substitutions. (... ice water, high bulk/low calorie foods, sugarless gum, mouthwash, brushing teeth.) ___ Begin or increase regular exercise program. ___ When experiencing withdrawal effects: 1. Remind yourself why you are quitting (from your card). 2. Remind yourself that whatever discomfort you are experiencing is only a tiny fraction of the probable discomfort associated with continued smoking. 3. Practice deep breathing or other relaxation techniques - tapes. ___ Remind yourself that you can free yourself from this unhealthy, expensive, messy habit and become a non-smoker. Maintenance of Quitting: After two weeks ___ Remind yourself that the desire to smoke is linked to a great many situations, people and emotional stress. ___ When you do have a desire to smoke, remember that it only lasts a few seconds: distract yourself and leave the situation if necessary. ___ After each desire to smoke has passed, pat yourself on the back, you have just made progress in breaking the habit forever. ___ Save the money on wasted on cigarettes in a special fund and buy yourself something nice. Maintenance of Quitting: After Two Months ___ Be particularly vigilant when unusual life events occur. (.. weddings, holidays, vacations.) ___ Be particularly vigilant when stressful life events occur (e.g., relationship problems, financial or work problems.) ___ Remind yourself regularly that not smoking is completely within your personal control. ___ Never lull yourself into thinking you are out of danger and you can safely have a cigarette or two. -- you cannot!!!!! ___ If, by chance, you do slip and have one or more cigarettes, do not conclude that all is lost . Return to complete abstinence immediately and learn from your experience. ___ If you have gained significant weight since quitting, now is the time to do something about it. ___ Each time you see a cigarettes advertisement, remind yourself of why you quit. Also remember that a [employer] industry spends billions of dollars each year trying to get people like yourself re-hooked . The patient's goal is to quit by (insert month/year) Bupropion What is this medicine? BUPROPION is a smoking cessation aid. It can also be used to treat mood disorders such as depression. Common brand names for bupropion include Zyban and Wellbutrin . What should I tell my health care provider before I take this medicine? Tell your health care provider what health conditions you have, including (but not limited to): an eating disorder, such as anorexia or bulimia head injury or brain tumor seizures suicidal thoughts or a previous suicide attempt How should I use this medicine? You can take this medicine with or without food. Swallow your tablet whole (do not crush, chew, or divide). Where should I keep my medicine? Keep out of the reach of children. Store at room temperature, away from light and moisture. Throw away any unused medicine after the expiration date. What may interact with this medicine? A number of medications can interact with bupropion. Do not take this medicine with any of the following medications: linezolid MAOIs such as Azilect , Eldepryl , Marplan , Nardil , and Parnate methylene blue (injected into a vein) other medicines that contain bupropion This list does not describe all possible interactions. Give your health care provider a list of all the medicines, herbs, non-prescription drugs, or dietary supplements you use. Also tell them if you smoke, drink alcohol, or use illegal drugs. Some of these substances may interact with your medicine. What should I watch for while using this medicine? Tell your health care provider if you are unable to quit smoking after seven weeks of taking bupropion. Visit your health care provider for regular checks on your progress. Watch out for new or worsening thoughts of suicide or depression. Also watch out for sudden changes in feelings such as feeling anxious, agitated, panicky, irritable, hostile, aggressive, impulsive, severely restless, overly excited and hyperactive, or not being able to sleep. If this happens, especially at the beginning of treatment or after a change in dose, call your health care provider. Avoid alcoholic drinks while taking this medicine. Drinking excessive alcoholic beverages, using sleeping or anxiety medicines, or quickly stopping the use of these agents while taking this medicine may increase your risk for a seizure. Do not drive or use heavy machinery until you know how this medicine affects you. This medicine can impair your ability to perform these tasks. Do not take this medicine close to bedtime. It may prevent you from sleeping. Your mouth may get dry. Chewing sugarless gum or sucking hard candy, and drinking plenty of water may help. What side effects may I notice from receiving this medicine? Notify your health care provider if you notice any side effects from taking this medication. Possible side effects include fast or irregular heartbeat, difficulty sleeping, headache, agitation, dizziness, sweating, weight loss, dry mouth, constipation, nausea, vomiting, tremor, and blurred vision. Seek medical attention right away if you have an allergic reaction like skin rash, itching or hives, swelling of the face, lips, or tongue, or breathing problems after taking bupropion. Watch for changes in mood and increased blood pressure. Notify health care provider immediately if you have a seizure while taking this medication. This list does not describe all possible side effects. Contact your health care provider or pharmacist for medical advice about side effects. This sheet is a summary and does not cover all possible information. A Medication Guide will be given to you with each prescription. Read the information carefully. If you have additional questions about this medicine, talk to your healthcare provider or pharmacist. You may ask your primary care provider for a referral to a clinical pharmacist for a comprehensive review of all your medications. Nicotine Patch What is this medicine? NICOTINE helps people stop smoking. This medicine replaces the nicotine found in cigarettes and helps to decrease withdrawal effects. It is most effective when used in combination with a stop-smoking program. A common brand name for nicotine patch includes Nicoderm . What should I tell my health care provider before I take this medicine? Tell your health care provider what health conditions you have, including (but not limited to): skin problems, like eczema an unusual or allergic reaction to adhesives heart disease, angina, irregular heartbeat or recent heart attack high blood pressure diabetes overactive thyroid pheochromocytoma How should I use this medicine? Find an area of skin on your upper arm, chest, or back that is clean, dry, and hairless. Remove the patch from the sealed pouch. Remove the backing from the patch and the press the patch firmly in place for 10 seconds to make sure that there is good contact with your skin. After applying the patch, wash your hands. The patch can be worn for 16 to 24 hours. Change the patch every day, keeping to a regular schedule. Do not wear more than 1 patch at a time. Discard patch by folding adhesive ends together, replacing in pouch, and disposing in the trash. When you apply a new patch, use a new area of skin to minimize risk of skin irritation. Do not cut or trim the patch as the nicotine will evaporate and the patch will not work. Where should I keep my medicine? Keep out of the reach of children. Store at room temperature in carpenter cradle and dolly s packaging until ready to use. Throw away unused medicine after the expiration date. What may interact with this medicine? Give your health care provider a list of all the medicines, herbs, non-prescription drugs, or dietary supplements you use. Also tell them if you smoke, drink alcohol, or use illegal drugs. Some substances may interact with your medicine. What should I watch for while using this medicine? You should begin using the nicotine patch the day you stop smoking. It is okay if you do not succeed at your attempt to quit and have a cigarette. You can still continue your quit attempt and keep using the product as directed. Just throw away your cigarettes and get back to your quit plan. Stop using the patch and notify your health care provider if you experience redness from the patch that does not resolve after 4 days, or if inflammation or rash occurs. If you experience vivid dreams or difficulty sleeping, remove the patch and bedtime and apply another patch in the morning. You can keep the patch in place during swimming, bathing, and showering. If your patch falls off during these activities, replace it. If you are going to have a magnetic resonance imaging (MRI) procedure, tell your large animal husbandry technician if you have this patch on your body. It must be removed before an MRI as it may contain conducting metal. What side effects may I notice from receiving this medicine? Notify your health care provider if you notice any side effects from taking this medication. Possible side effects include headache, application site redness and irritation, abnormal dreams, or sleep disturbance. Seek medical attention right away if you have an allergic reaction like skin rash, itching or hives, swelling of the face, lips, or tongue, or breathing problems after taking nicotine gum. Watch for changes in heart rate or increased blood pressure. This list does not describe all possible side effects. Contact your health care provider or pharmacist for medical advice about side effects. This sheet is a summary and does not cover all possible information. If you have additional questions about this medicine, talk to your healthcare provider or pharmacist. You may ask your primary care provider for a referral to a clinical pharmacist for a comprehensive review of all your medications. Nicotine Chewing Gum What is this medicine? NICOTINE helps people stop smoking. This medicine replaces the nicotine found in cigarettes and helps to decrease withdrawal effects. It is most effective when used in combination with a stop-smoking program. Some common brand names for nicotine gum include Nicorette and Thrive . What should I tell my health care provider before I take this medicine? Tell your health care provider what health conditions you have, including (but not limited to): heart disease, angina, irregular heartbeat or recent heart attack high blood pressure diabetes overactive thyroid pheochromocytoma stomach problems or ulcers How should I use this medicine? When you feel an urgent desire for a cigarette, chew one piece of gum slowly. Continue chewing until you taste the gum or feel a slight tingling in your mouth. Then, stop chewing and place the gum between your cheek and gum. Wait until the taste or tingling is almost gone then start chewing again. Continue chewing in this manner for about 30 minutes. Do not swallow the gum. Only use one piece of gum at a time as directed. Do not eat or drink 15 minutes before using or while gum is in the mouth. Where should I keep my medicine? Keep out of the reach of children. Store at room temperature, away from light. Wrap used pieces of gum in paper and discard. Throw away unused medicine if . What may interact with this medicine? Give your health care provider a list of all the medicines, herbs, non-prescription drugs, or dietary supplements you use. Also tell them if you smoke, drink alcohol, or use illegal drugs. Some substances may interact with your medicine. What should I watch for while using this medicine? Always carry the nicotine gum with you. Do not use more than 24 pieces of gum a day. Too much gum can increase the risk of an overdose. As the urge to smoke gets less, gradually reduce the number of pieces each day over a period of 2 to 3 months. You should begin using the nicotine gum the day you stop smoking. It is okay if you do not succeed with the attempt to quit and have a cigarette. You can still continue your quit attempt and keep using the product as directed. Just throw away your cigarettes and get back to your quit plan. What side effects may I notice from receiving this medicine? Notify your health care provider if you notice any side effects from taking this medication. Possible side effects include headache, mouth irritation, sore throat, upset stomach, heartburn, hiccups, jaw pain, abnormal dreams, or sleep disturbance. Seek medical attention right away if you have an allergic reaction like skin rash, itching or hives, swelling of the face, lips, or tongue, or breathing problems after taking nicotine gum. Watch for changes in heart rate or increased blood pressure. This list does not describe all possible side effects. Contact your health care provider or pharmacist for medical advice about side effects. This sheet is a summary and does not cover all possible information. If you have additional questions about this medicine, talk to your healthcare provider or pharmacist. You may ask your primary care provider for a referral to a clinical pharmacist for a comprehensive review of all your medications. documented in this encounter [facility] 10-18-2023 History of Present illness Narrative Images from the original note were not included. [facility] SMOKING CESSATION PROGRAM CONSULT NOTE I will communicate the consult note back to the requesting health care provider by way of the shared medical record for internal providers or letter via the [employer] for external providers. October 18, 2023 CONSULTING PHYSICIAN/REFERRAL: Monica Be [address] [facility] [address] REASON FOR CONSULT/REFERRAL: Tobacco Cessation Treatment HPI: Jocelyne Lucas is a 38 year old female who is a current smoker who presents to the office today for a smoking cessation consult. She started smoking about 16 years old. She smoked about 0.5 packs for most of this time. Around 2 years ago she increased this to about 0.75 packs per day. She has quit in the past around when she had her kids. She has always picked it back up. In the past when she quit, she would smoke to a point where her lungs hurt, and then she would smoke about 5 days after and know that she shouldn't smoke at all. 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 She generally does not smoke until she returns home from work at 4pm. She will generally chain smoke from 5-10 pm She has tried patches and gum in the past. She felt that the patch worked well. She has triggers of stress, boredom, drinking, driving long distances She denies sob outside of working out, cough, mucus. TOBACCO USE: TYPE: cigarettes QUANTITY: 11-20 cigarettes / day (1/2-1 Pack) DURATION: 22 PACK YEARS: 11 How many cigarettes do you smoke? 0: 10 or fewer 1: 11-20 2: 21-30 3: >=31 How soon after waking up do you smoke your first cigarette of the day? 0: after 60 minutes 1: 31-60 minutes 2: 6-30 minutes 3: within 5 minutes Level of nicotine dependence is computed by adding the scores together as follows: 0-2 = low nicotine dependence 3-4 = moderate nicotine dependence 5-6 = high nicotine dependence Heaviness of Smoking Index: low VAPING/E-CIGARETTE USE: Tried a few puffs CARTRIDGE TYPE: N/A QUANTITY: N/A DURATION: N/A HISTORY OF PRIOR TOBACCO TREATMENT: Yes TREATMENT: [place] TRIGGERS: Alcohol, Stress, and boredom PMH: PAST MEDICAL HISTORY Diagnosis Date Crohn's disease (HCC) Raynaud's syndrome PAST SURGICAL HX: PAST SURGICAL HISTORY Procedure Laterality Date PAST SURGICAL HISTORY OF 2 C sections 2008, 2011 MEDICATIONS: adalimumab 40 mg/0.4 mL subcutaneous pen kit (HUMIRA (CF)) Inject 40 mg (1 pen) subcutaneously every 2 weeks. ALLERGIES: Allergies: Morphine Other: See Comments FAM HX: FAMILY HISTORY Problem Relation Age of Onset Heart Father Hypertension Father Cataract Father Heart Maternal Grandmother Macular Degen Maternal Grandmother Cataract Paternal Grandfather SOCIAL HX: Social History Tobacco Use Smoking status: Every Day Packs/day: .5 Types: Cigarettes Passive exposure: Current Smokeless tobacco: Never Vaping Use Vaping Use: Never used Substance Use Topics Alcohol use: Yes Comment: Twice a week Drug use: Never ROS: REVIEW OF SYSTEMS PAIN ASSESSMENT: Negative for pain, history of chronic pain, or current treatment for a chronic pain condition. GENERAL: No weight loss, malaise or fevers HEENT: Negative for frequent or significant headaches, No changes in hearing or vision, no nose bleeds or other nasal problems RESPIRATORY: Negative for cough, hemoptysis, wheezing, COPD, dyspnea or shortness of breath CARDIOVASCULAR: Negative for chest pain, leg swelling, hypertension, CHF or palpitations MUSCULOSKELETAL: Negative for joint pain or swelling, back pain or muscle pain HEMATOLOGY/LYMPHOLOGY: Negative for prolonged bleeding, bruising easily or swollen nodes NEURO: No history of headaches, syncope, paralysis, seizures or tremors PHYSICAL EXAM: BP 111/72 Pulse 79 Temp (Src) 98.1 (Temporal) Resp 20 Wt 144 lb (65.3kg) SpO2 100% LMP 10/04/2023 GA: well appearing, in no acute distress. Speech is Clear and understandable SKIN: No rashes or lesions. HEENT: No sinus tenderness. Oropharynx: Lips, and tongue normal. Dry mucosa. No excess secretions LN: No cervical or supraclavicular adenopathy LUNGS: clear to auscultation and percussion, no wheezing or rhonchi. No reduced excursion of the bilateral diaphragm with inspiration. Symmetric air entry, no paradox noted HEART: negative. RRR without murmur, gallop, or rubs. No ectopy. ABDOMEN: Soft, non-tender. Bowel sounds normal. No masses, organomegaly. EXTREMITIES: Normal. No deformities, edema, or skin discoloration. No clubbing NEURO: Gait steady walking to exam table, No assist device needed. Mood and affect normal. DATA: Last XR Chest - Impression Only XR CHEST 1V FRONTAL PORT Exam End: 03/07/2023 5:40 PM (Final result) Impression: IMPRESSION: No acute radiographic abnormality. ... IMPRESSION/PLAN: Jocelyne Lucas is a 38-year-old with past medical history of Crohn's disease, Raynaud's syndrome, tobacco dependence disorder TOBACCO USE DISORDER/NICOTINE DEPENDENCE - Severity of nicotine dependence: Low - Smoking cessation methods including Nicotine Replacement Therapies, Bupropion, and Behavior Modification were discussed with the patient and assistance offered. The patient is currently ready to quit. I personally spent 10 minutes in counseling. - QUIT DATE: Yes. Ready to quit? No - Treatment plan: Nicotine Gum, Nicotine Patch, and Bupropion (Wellbutrin) -The patient is eager to quit, and is dedicated to work on associated behaviors with smoking. -We discussed oral medication such as for any Kleine or bupropion. We decided bupropion was most appropriate for the patient. Given her history of Crohn's disease, and her hesitancy with oral medications due to her long history of GI issues, we will start with low-dose bupropion 150 mg once daily x2 weeks. If she does not have any change in her GI symptoms after 2 weeks, we will increase to 150 mg twice daily. -The patient had significant improvement while on nicotine patches. I will continue nicotine patches 14 mg x 28 days, and then will step down to 14 mg x 28 days with refills. -We discussed the use of Nicotrol inhaler, but I was not able to order it due to insurance coverage. The patient is interested in using this in the future. She has tried nicotine gum and lozenges in the past with little improvement. She is however open to trying nicotine gum again. We will start with 4 mg nicotine gum 1 to 2 hours as needed. She will look to try and use up to 9/day for the first 6 weeks. She will start to stepdown after that. -I have asked the patient to work on behaviors that she associates with smoking. Follow Up: Follow-up in 4 weeks virtual I spent a total of 30 minutes on the date of the service which included preparing to see the patient, [id number] patient care, completing clinical documentation, obtaining and/or reviewing separately obtained history, performing a medically appropriate examination, counseling and educating the patient/family/caregiver, ordering medications, tests, or procedures, communicating with other HCPs (not separately reported), independently interpreting results (not separately reported), communicating results to the patient/family/caregiver, and care coordination (not separately reported). Pedro Luis Bailey APRN.LABORER [employer] Pulmonary & Critical Care Medicine [facility] [place] October 18, 2023 2:34 PM CC Monica Be [address] [facility] [address] and Brenda Landon MD via [employer] documented in this encounter [facility] 10-18-2023 History of Present illness Narrative [facility], [place] Department of Hematologic Oncology and Blood Disorders PATIENT NAME: Jocelyne [facility] NO: [id number] ATTENDING PHYSICIAN: Gautam Hill MD. DATE OF SERVICE: 10/18/[address] Hilary Shaffer for an opinion regarding antiphospholipid syndrome. My final recommendations will be communicated back to the requesting physician by way of shared medical record or letter via US mail HISTORY OF PRESENT ILLNESS: 38 yof who is referred for evaluation of antiphospholipid syndrome. She has a history of Crohn's disease, ankylosing spondylitis and Raynaud's disease. She underwent laparoscopic ileocolic resection in January of this year with the pathologic finding of active chronic enteritis, inflammation, stricture and non-necrotizing granulomas, plus endometriosis. She's been on Humira since 2016. She reports that a colonoscopy a few weeks ago which showed her disease to be in remission. She has no abdominal pain, nausea or emesis. Because of prior miscarriage, a lupus anticoagulant panel was done which revealed mild elevations in anti-B2GP-1 IgM of 38 and ACL IgM (17.9). In the repeat panel ACL antibodies were negative and the B2GP IgM was lower (23); the LAC was negative: 02/11/2023 05/20/2023 Platelet Neut Negative Negative Negative DRVVT Screen 32.0 - 45.7 seconds 36.0 30.9 (L) DRVVT Confirm Ratio <1.32 1.04 1.03 DRVVT 1:1 Mix 32.0 - 45.7 seconds 36.6 33.5 Hex Phase Screen 34.0 - 51.8 seconds 48.2 42.4 Hex Phase Confirm 34.2 - 47.9 seconds 46.2 43.1 Hex Phase Delta <7.1 delta seconds 2.0 0.0 APTT Screen 24.0 - 35.1 seconds 33.7 30.2 Thrombin Time <18.6 seconds <16.8 <16.8 PT Sec 9.7 - 13.0 sec 9.9 9.9 PT INR 0.9 - 1.3 1.0 1.0 APTT 23.0 - 32.4 sec 28.1 27.8 Cardiolipin Ab, IgA <12.0 APL <9.0 <9.0 Cardiolipin Ab, IgG <15.0 GPL <9.0 <9.0 Cardiolipin Ab, IgM <12.5 MPL 17.9 (H) <9.0 Beta 2 Glycoprotein, IgG <20 SGU <9 <9 Beta 2 Glycoprotein, IgM <20 SMU 38 (H) 23 (H) She is (1 spontaneous miscarriage in 1st trimester; 2 terminations due to trisomy 18 and Turners). She's had 2 C-sections, one of which said to be complicated by septic thrombophlebitis but she states that thrombosis was never verified. However she was treated with Lovenox for 2-3 months. There is no personal or family history of spontaneous VTE. She's a current smoker but was using norethindrone for contraception and not an estrogen-containing pill. She has AUB and was recently diagnosed with adenomyosis. A hysterectomy is planned. REVIEW OF SYSTEMS See HPI. Current Outpatient Medications Medication Sig Dispense Refill adalimumab 40 mg/0.4 mL subcutaneous pen kit (HUMIRA (CF)) Inject 40 mg (1 pen) subcutaneously every 2 weeks. 6 Each 3 No current facility-administered medications for this visit. ALLERGIES Allergen Reactions Morphine Other: See Comments PAST MEDICAL HISTORY Diagnosis Date Crohn's disease (HCC) Raynaud's syndrome PAST SURGICAL HISTORY Procedure Laterality Date PAST SURGICAL HISTORY OF 2 C sections 2008, 2011 FAMILY HISTORY Problem Relation Age of Onset Heart Father Hypertension Father Cataract Father Heart Maternal Grandmother Macular Degen Maternal Grandmother Cataract Paternal Grandfather Social History Tobacco Use Smoking status: Every Day Packs/day: .5 Types: Cigarettes Passive exposure: Current Smokeless tobacco: Never Vaping Use Vaping Use: Never used Substance Use Topics Alcohol use: Yes Comment: Twice a week Drug use: Never PHYSICAL EXAMINATION: BP 111/72 Pulse 79 Temp 36.7 C (98.1 F) (Temporal) Resp 20 Ht 159.3 cm (5' 2.72 ) Wt 65.5 kg (144 lb 6.4 oz) LMP 10/04/2023 (Within Days) SpO2 100% BMI 25.81 kg/m Alert, in no acute distress. No jaundice, ecchymosis, petechiae. Ext: no edema. ASSESSMENT: Mild elevation in anti-B2GP-1 IgM. This isn't a significant level and neither this nor her clinical history meets criteria for the diagnosis of antiphospholipid syndrome. The contribution of an slightly increased antiphospholipid antibody to the risk of postoperative thrombosis is unknown but likely none with the findings in this case. However, based on her history of IBD, and her current smoking, her risk is increased. I recommend mechanical (ICD) prophylaxis while hospitalized, plus low-dose anticoagulation with either Lovenox, 40 mg daily, or Eliquis, 2.5 mg BID for 7-10 days postop. Ms. Lucas expressed understanding of our discussion and all questions were answered to her satisfaction. I spent a total of 60 minutes on the date of the service which included preparing to see the patient, [id number] patient care, completing clinical documentation, obtaining and/or reviewing separately obtained history, performing a medically appropriate examination, counseling and educating the patient/family/caregiver, ordering medications, tests, or procedures, communicating with other HCPs (not separately reported), and independently interpreting results (not separately reported). Gautam Hill MD Cc. Hilary Shaffer MD [facility] Adrien Landers MD [facility] documented in this encounter [facility] 10-18-2023 Nurse Note Clinical questionnaires incomplete due to Patient declined to complete or answer questions with nurse Additional intake questions: Has the patient had fever, nausea, vomiting, diarrhea, constipation, fatigue for > 1 week? No Does the patient have a decreased appetite? No Does patient want to see a Bench Boring Machine Operator? No (yes to any of above refer patient to schedulers for dietitian appointment) ) Does patient have any new or increased numbness or tingling of extremities? No Is patient interested in fertility information? No Does patient need any prescription refills? No Does patient have an advanced directive in place? No, Patient referred to [facility] documented in this encounter [facility] 09-29-2023 Note [facility] 09-23-2023 Note [facility] 09-23-2023 Instructions Luz Sims APRN.[employer]ER [employer]ING - 09/23/2023 3:41 PM EDT -PLEASE NOTE THAT WE REVIEW ALL YOUR TEST RESULTS AT YOUR NEXT FOLLOW UP VISIT WITH YOU. IF ANY ABNORMAL LAB REQUIRES SOONER ATTENTION, WE WILL CONTACT YOU. -If you have signed up on [employer], we will release your test results through [employer]. I wish you the best of health and wellness. -Please take care and stay safe and healthy. Consume a healthy diet, stay well hydrated, sleep well, be happy, improve stress (include meditation and regular exercise), ensure adequate vitamin D. Spend some time in nature, around trees and barnett (forest bathing). Spend time outdoors next to greenery on a [place] day to benefit from the healing benefits of the Near Infra Red light of the sun that reflects on greenery (research showing benefits to cellular healing and benefits against covid-19 infection). These have been shown to help with overall health and wellbeing, stress, inflammation and in promoting a healthy immune system. -Continuous follow up with Primary care physician, for cardiovascular disease prevention, for age appropriate cancer screening and routine health maintenance and wellness, and infection precautions and age appropriate immunization, is recommended. Continue humira per GI - I recommend avoiding all dairy You can use non-dairy alternatives - I recommend smoking cessation; This is very important Also this makes raynaud's phenomenon worse and can lead to gangrene. RAYNAUD'S PHENOMENON Raynaud's phenomenon is an exaggerated response of the arterial vessels to the tips of fingers and toes. Usually triggered by cold and reverses with warming. Triggering factors include cold exposure, smoking, stress, alcohol, excessive caffeine, sinus decongestants, stimulants, etc....Certain measures can be taken to help prevent and reverse Raynaud's attacks. Raynaud's phenomenon (RP) can often be managed with lifestyle modification. Simple measures can be implemented to reduce the frequency, severity, and duration of attacks and include avoiding cold temperatures and temperature fluctuations; alleviating stress; adopting measures to keep the body warm, including adequate clothing (eg, using multiple layers, wearing thermal underwear and a warm hat); and keeping the fingers warm (eg, by using mittens or electric hand warmers instead of gloves). Placing the hands under warm water or rotating the arms in a windmill pattern may help abort Raynaud's attacks . Recommend avoiding cold exposure. This is particularly important in the winter season, as discussed, and proper attire to keep extremities and core body temperature warm for optimal control of RP symptoms. Recommend avoiding all exposure to nicotine and sympathomimetics (such as pseudoephedrine and other drugs), alcohol and excessive caffeine intake.Both active and passive smoking should be avoided to help minimize the vasoconstrictive effects of tobacco. Sympathomimetic drugs (eg, decongestants, stimulants, and anorexiants) should also be avoided. We could consider use of calcium channel blockers (and occasionally topical NTG) if symptoms more active in cold season of not adequately controlled with conservative management. Other more intensive therapy are available when clinically necessary. Additional written information on raynaud's phenomenon can be found at www.rheumatology.org. - For vitamin D, you can try the liquid form, which would be better absorbed and less concerning for the strictures You can get BlueBonnet 5000 international units per drop, and take 10 drops (to get 50,000 international units) once a week. - Maintaining good vitamin D blood levels is important for bone health and overall health. Please see additional information on vitamin D below. A vitamin D blood test, called vitamin D 25-hydroxy (OH) is obtained to assess vitamin D level. If the vitamin D is low, you will need to take a vitamin D supplement. If you are already on a vitamin D supplement, then the dose will need to be adjusted. Also you multivitamin may contain vitamin D. Vitamin D is a fat soluble vitamin that requires it be taken with good fat to be absorbed. Examples of healthy fat include nuts, seeds, avocados, olives and for the most part the meal of the day. Spending up to 30 minutes in the sun during Summer and late Spring can provide natural vitamin D to the uncovered skin (arms, legs) - Your calcium can be sufficient in your diet. Healthy food that are rich in calcium include: nuts, seeds, legumes/beans, peas, dark green leafy vegetables, plant based milk Additional calcium rich foods listed below - Soaking Almonds overnight in the fridge with drinking water, can help with softening the almonds and improved absorption of the almonds. Please be careful not to break a tooth with dry raw almonds, or other hard nuts or seeds. If your lab work shows insufficient calcium or you are unable to consume sufficient foods rich in calcium, then a calcium supplement is recommended, such as calcium citrate. - You can track your nutrition and calcium intake on www.[email or web address] This provides macro and micronutrient intake and requirements. - You can track your calcium intake on MeterHero or any other calcium tracker of your choice. If you are not getting about 1200 mg of calcium daily, you will need to add a calcium supplement, such as calcium citrate to supplement you daily calcium so you can achieve your total 1200 mg daily See additional information below on calcium. - I recommend following a healthy lifestyle. You can find additional information below. I recommend this to all my patients, as I have seen convincing scientific evidence, and seen the results in my practice, of the benefits of this healthy lifestyle to overall health and wellness. I hope you will find this beneficial as well. A whole plant based diet and healthy lifestyle have been reported to be optimal for health in general, anti-inflammatory diet, prevention of common chronic diseases, healthy weight management, memory and brain healthy, bone health. - You can track your nutrition and calcium intake on www.[email or web address] This provides macro and micronutrient intake and requirements. Recommendations for healthy lifestyle include: Healthy nutritious diet, anti-inflammatory diet, appropriate exercise, good sleep hygiene, stress management, supplementing vital deficiencies and maintaining healthy weight. with BMI that does not exceed 25 to 26 . 5 points to remember to improve your health and continue on a healthy path: 1- Optimal nutritious food, such as a Whole Plant Based diet You can watch the documentary movie that features the Whole Plant Based diet, [place] over knives (see video online and visit website). Another movie that was recently released is: Eating You Alive (you can find it at [employer]) and The [employer] ChangeLifeOnKey movie Dr. Jessica Mathis is a [facility] physician who is an expert in Whole Plant based diet. His website is [employer]. His research highlights the benefits of the Whole food plant based diet in reversing and preventing heart disease. Mrs. Mathis (his ) has a cookbook with many recipes on whole plant based food: The Prevent and Reverse Heart Disease cookbook. You can also consider reading his son, Richard Mathis's book: The Engine 2 cookbook Richard is a retired animal nursery worker who has helped many people get healthier by following the whole food plant based diet. Dr. Pancho aMya, has a website and free michelet to help get started on a whole plant based diet, at www.pcrm.org and you can log on for free for his 21-Day Kickstart with meals and recipes to follow for 21 days. There is also a free michelet for that. He has multiple free videos and YouTube, for example: https://youtu.be/kkeJimiK1d4 , https://youtu.be/JdNYMblaq7w He has written multiple books, including Power Food for the Brain, The Cheese Trap, Dr. Pancho Maya's Program for Reversing Diabetes, Your Body in Balance Dr. Valente Valera has shown the benefit of a starch based whole food plant based diet to his Rheumatoid Arthritis patients, as well as patient with diabetes II, hypertension, obesity, multiple sclerosis, heart disease, acne, and other, his website: www.cheli.CoreXchange Dr. Sydney Reyez is a renowned earth observations chief scientist, who has studied and researched the benefits of the Whole plant based diet. He has also researched the adverse effects of animal proteins on health. He presents many of his research findings in his book The Hamlet study. Dr. Woody Marino has completed many research trials proving the reversal of diseases, such as heart disease and early prostate cancer, with healthy lifestyle and the Whole Plant based diet. Dr. Woody Marino website is: www.[email or web address].[email or web address].CoreXchange His new book: Undo It, has evidence based information and guide to following this healthy lifestyle. Dr. Mukesh Kruger has dedicated a website and additional time to reviewing all food related articles and research and presents them in his power point presentation and on his website at: nutritionfacts.org which is all free. Dr. Kruger has multiple free videos and YouTube, for example https://LXSN.be/aSgNkhgVtks and https://LXSN.be/lXXXygDRyBU. He has written multiple books including: How Not To and How Not To Diet He is now working on his next book: How Not To Age Dr. Yajaira Jacobs (from the [facility]), has articles on the following website: [employer] Also, you could find additional information on practical to follow recipes by reading or watching online and YouTube such as: Ip Litigation Associate AJ, Cooking With Plants, The Vegan Corner (recipes from an [place] Ip Litigation Associate), The Whole Foods Plant Based Cooking Show and visiting the provided websites for additional information on the whole plant based benefit and cooking recipes. You can also consider watching the vlogs of some of the plant based Athletes such as Rad Brooks Derek on [employer]. Dr. Stacie Ray (a psychiatrist who suffered with lupus) has helped reverse her Systemic Lupus Erythematosus and helps many patients with their auto-immune diseases, based on her recommendations of the whole food plant based diet and the green smoothies. She has a facebook and website, and on youtube her channel is: Goodbye Lupus Some people have adverse effect or intolerance to gluten. Certain patients with auto-immune disease, including auto-immune thyroid disease, need to avoid gluten. If you suspect you are gluten sensitive or intolerant, consider gluten free diet. Gluten could lead to increased inflammation in the bowels and body in certain patients. Not all your food has to be organ if you cannot afford or find them. Consider organic and non-GMO products when shopping for your food, when possible. GMO are genetically modified food that may have adverse impact on our health. If you are unable to purchase organic of non-GMO, you can wash your produce with white vinegar or soak in baking soda and water (see details from Dr. Rosenbaum's website nutritionfacts.org) and rinse well with water. 2- Regular Exercise, such as beginner yoga, candida chi, stretching, cardio, gradual strengthening, pool therapy, physical therapy Come As You Are: YOGA - Gentle Yoga Anyone Can Do Anywhere www.[email or web address]/yo ga Also on youtube: yoga with Itzel 3- Good Sleep (poor sleep impacts everything, recommended sleep is 7.5 to 8 hrs. a night). Certain people need less or more sleep. Meditation and relaxation techniques have shown to help with improving sleep. 4- Stress management, staying positive, be happy, laugh often (it is a great medicine) Find time to relax and meditate if possible. Following steps 1-3 will help with this as well. In psychiatric disorders, it is important to follow with a professional on the optimal management of depression, anxiety or psychiatric illness 5- Supplements Supplementing necessary vitamins and minerals, correcting any deficiencies, i.e. Vitamin D, B12, omega-3 fatty acids etc... Go natural when possible -Important notice: If you are following a Whole plant based diet, it is recommended to take Vitamin B12, sublingual, dissolve under the tongue, take once daily. Vitamin B12 is available over the counter, dose could be 2500 mcg, and can be taken once a week, and if your blood levels are low, you may need to take it once daily or a higher dose. Raw: Garlic, Cilantro, [place] nuts, Pumpkin seeds, [place] seeds and Flax seed powder have been reported to help with certain metal detoxification such as mercury. [place]-3 plant based rich foods are good anti-inflammatory sources such as : julio seeds, flax seed (needs to be ground), walnuts, hemp seeds, dark green leafy vegetables. It is important to avoid refined oils as much as possible especially that many have too much omega-6 that is pro-inflammatory (lead to inflammation as well as concern for heart and vascular disease). Turmeric can be found natural, used as the spice powder or the root with your food. This is also available as a capsule. If you are on a blood thinner, you will need to discuss with your pharmacist or physician before taking Turmeric If you have gall bladder disease or gall bladder stones, it is recommended to avoid turmeric capsules. Sweet cherries (raw cleaned or frozen), Turmeric , pineapple (contains bromelain), omega-rich foods, have anti-inflammatory benefit Start reviewing the Whole Plant Based Diet, by watching [place] over Endoclear movie and then review website. There are many other resources and educational information on the Whole plant based diet on the Internet and documentaries. There are other resources for wellness that you can also benefit from, such as the [facility] Wellness website, [facility] and includes Plant based and Mediterranean diet, yoga and meditation. Please avoid all dairy products. You could use non-dairy milk such as Flax milk, Cashew milk, [place] milk, Rice milk, Oat milk or Hemp milk, instead. It is very important to avoid all: refined sugars (including high fructose syrup), refined carbohydrates, any artificial sweeteners and artificial preservatives, and soda and heavily processed food. Insure adequate hydration; drink at least 6 to 8 cups of water daily, certain people need less or more. Examples of Smoothies: Every morning you can start your day with a healthy natural anti-inflammatory smoothie, for example, you can blend: fresh or frozen sweet cherries, half a root of turmeric (1 to 2 inches), banana, blue berries, walnuts, few leaves of kale, add flax milk (or almond milk), and enjoy. You could add half an avocado if you like it smoother. If you do not tolerate walnuts, you can use flax seeds, julio seeds or hemp seeds instead. If you do not like plant based milk, you can use coconut water or plain water instead. Other smoothies, including green smoothies, are also very healthy and highly anti-inflammatory. For example fruits (such as banana or frozen cesia or pineapple) and add significant amount of leafy greens, then add water or coconut water and blend until smooth. You can also add turmeric in this recipe. GENERAL INFORMATION ON BONE HEALTH : -Bone Density testing (DXA scan) as recommended. -Vitamin D supplementation is recommended, unless blood levels are sufficient. Recommended daily dose of 1000 to 2000 IU total a day, or the dose necessary to achieve a Vitamin D 25-OH blood level of >31 and preferably closer to 40-60 ng/mL. Vitamin D pills are available over the counter. -Recommended daily dose of calcium: 1200mg total a day in divided doses. Calcium is usually sufficient in our regular diet, also available in multivitamins. Patients on certain dietary restrictions or those unable to meet their daily calcium by diety alone, may require calcium supplements. For patient with history of calcium kidney stones, Calcium Citrate would be the recommended supplement. It is recommended to avoid caclium carbonate supplement in this case, as these may increase risk of calcium kidney stones. The after visit summary has information on dietary calcium and instructions on reading calcium label and converting the %DV to mg. When you read a food label and you see calcium reported as DV %, add a zero and this will provide you with the approximate mg value of the calcium content in this food. For example, if a glass of almond milk is labeled as 40% calcium DV, then this contains 400 mg of calcium. For additional information, please see references provided. -Regular weight-bearing and muscle-strengthening exercise -Avoidance of tobacco smoking, excessive alcohol intake and excessive caffeine intake. -Fall and fracture precautions -It is recommend to continue regular follow up visits with your dentist every 6 months, and continue with good oral hygiene. Calcium: If your diet is sufficient in Calcium rich food, you will not need calcium supplement. Calcium Citrate is the preferred calcium if you have had kidney stones. Daily recommended calcium dose: 600mg twice a day with meals. Adequate calcium ingestion is essential for maintaining healthy bones. The recommended dose daily intake of calcium varies depending on individual needs but is usually between 1200 and 1500mg daily, preferably around 1200mg a day in divided dose (not all taken at once). This is equivalent to about five 8oz glasses of milk per day. Many foods are rich in calcium and they include: - Plant based, non-dairy, calcium rich products, include nuts, almond milk, beans, lentils - Vegetables and Fruit: bok-greene, turnips, broccoli, kale, collards, - Dairy products: milk, cheese, yogurt, ice-cream - Fish products: canned salmon, sardines and shrimp - Cereals and nuts: almonds, sesame seeds, fortified cereals and oatmeal - Other foods: fortified orange-juice, figs, soybeans, other beans and eggs. If you have a low calcium diet and cannot tolerate calcium-rich foods, many supplements are available today. Your pharmacist can help you choose the one which best suits your needs. A few tips on supplements: - They should be easy to swallow - They should dissolve easily in cup of vinegar in < 15 minutes. - Count the ELEMENTAL calcium mgs. E.g. Calcium 499mg may have only 221mg of elemental Calcium. - Calcium citrate is the calcium supplement to take if you have had kidney stones and unable to meet your calcium requirements from food/diet alone. - There is such a variety today that it is best to bring in the bottle to your doctor to show them exactly what you are taking. Lastly too much calcium can be bad for you. Recent studies show extra supplements may increase your risk of kidney stones or cause high calcium levels in some people. You should discuss how much you should be taking with your doctor before starting them. Further Information is available from the following resources: www.nof.org (National Osteoporosis Foundation) http://www.osteo.org/osteolinks.as p National Institutes of Health: 5-697-721-BONE The Calcium Information Center: -Non-Dairy, Plant based Milk, can contain in1 glass up to 450 mg of calcium (300 to 450 mg) Exampled include Oat Milk, Flax Milk, [place] Milk, Cashew Milk, Soy Milk, Peas Milk general health and well being Examples of Food Sources of Calcium from NIH Food Milligrams (mg) per serving Percent DV* Soymilk, calcium-fortified, 8 ounces 299 30 Pound juice, calcium-fortified, 6 ounces 261 26 Tofu, firm, made with calcium sulfate, cup* 253 25 Tofu, soft, made with calcium sulfate, cup* 138 14 Invek-ce-yxg cereal, calcium-fortified, 1 cup 100-1,000 10-100 Turnip greens, fresh, boiled, cup 99 10 Kale, raw, chopped, 1 cup 100 10 Kale, fresh, cooked, 1 cup 94 9 Indonesian cabbage, bok greene, raw, shredded, 1 cup 74 7 Bread, white, 1 slice 73 7 Tortilla, corn, oizjn-fh-pesl/dunbar, one 6 diameter 46 5 Tortilla, flour, rffhu-qy-rszo/dunbar, one 6 diameter 32 3 Bread, whole-wheat, 1 slice 30 3 Broccoli, raw, cup 21 2 * DV = Daily Value. DVs were developed by the U.S. Food and Drug Administration to help consumers compare the nutrient contents among products within the context of a total daily diet. The U.S. Department of Agriculture s (USDA s) Nutrient Database Web site lists the nutrient content of many foods and provides comprehensive list of foods containing calcium arranged by nutrient content and by food name. *Calcium content varies slightly by fat content; the more fat, the less calcium the food contains. * Calcium content is for tofu processed with a calcium salt. Tofu processed with other salts does not provide significant amounts of calcium. You could acces this information online at: http://ods.od.nih.gov/factsheets/C alcium-HealthProfessional/ Vitamin D: Vitamin D3= cholecalciferol, available over the counter. Dose recommended 800 to 1000 iu daily with a meal; Certain patients require 2063-2701 iu daily and in patients deficient in Vitamin D, they require higher dosages. Certain patient requires higher dose, depending on their Vit D blood levels. Vitamin D is essential for calcium metabolism. It is really a hormone produced mainly in your skin after exposure to sunlight. Vitamin D helps you absorb calcium from your stomach and kidneys and incorporates it into your bones. Studies show approximately 50% of [place] men and women are vitamin D deficient in the winter. Milder cases of vitamin D are usually asymptomatic so the only way to know you have a problem is to have a blood level checked. More severe cases can cause osteomalacia (a.k.a. rickets) which can result in bone pain, weak bones and several abnormal laboratory tests and also weak muscles (a.k.a. myopathy). When this happens, your bones lose a lot of their calcium stores as the body tries to regulate the calcium required by other tissues. Prolonged deficiency can lead to severe bone disorders and fractures. Unlike calcium, dietary sources of vitamin D are rare, limited to a few fish oils particularly cod-liver oil, other fortified foods and egg yolks. and most are unhealthy. Natural source of vitamin D is through sunshine. This is usually during cameron seasons, for example a 30 minute exposure to sunshine. Some people are unable to be exposed to the sun due to skin condition. Often supplementation is needed. Many multivitamins contain some vitamin D and vitamin D alone preparations are now available in several forms. The recommended daily intake of vitamin D used to be 400 and 800 international units, however, it is now known that larger amounts are needed, as discussed above. Your doctor can prescribe prescription strength vitamin D for you if necessary, if you have marked deficiency or diseases of the liver or kidney. Supplementation in patients with severe deficiency can stabilize or improve bone mineral density and in frail elderly persons, may reduce their risk of falling. Additional Information is available from: www.nof.org (the national osteoporosis foundation) http://www.[facility].org/art hritis/osteo/info.htm http://ods.od.nih.gov/factsheets/v itamind.asp [place] [employer]: 9-250-261-BONE [facility] Calcium Information [place]: At the [facility], we work as a team for your care, along with Nurse Practitioners, Physician Assistants, Nurses and Medical Assistants. It is a privilege and honor to serve you. Thank you for choosing [facility] for your healthcare. Sincerely, Luz Sims APRN.LABORER SHELLFISH PROCESSING documented in this encounter [facility] 09-23-2023 History of Present illness Narrative Images from the original note were not included. Rheumatology FOLLOW UP VISIT Referring Provider: Franchesca Zuniga Date of Service: 09/23/2023 Gender: female Ethnicity: Declined Age: [age] year old Chief Complaint: Follow Up (antiphospholipid syndrome) Last Rheumatology visit: 09/23/2023 (with Luz Sims) Jocelyne Lucas is a 38 year old Declined female who presents on 09/23/2023 for in person visit for follow-up of Follow Up (antiphospholipid syndrome). She is currently taking adalimumab. INTERVAL HISTORY Doing good Colonoscopy yesterday In remission No inflammation Trouble getting to upper GI will have mri to check Had panel lupus anticoag panel + Consult to lizzy farmer saw Dr. 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 Shaffer and Dr. Brown She had terminated preg due to problems with children and did not miscarriage Will go to [facility] Dr. Hill and lizzy Or at main Scheduled for full hyster in Nov for endometriosis smoker Best she has been May use heating pad end of day Back upper Same rom No joint swelling Raynauds controlled Keeps core warm Reverses with warm No digital ulcers No skin tightening Humira every other week PAIN EVALUATION No data found in the last 1 encounters. Impression Diagnoses: (K63.9, M07.60) Arthritis associated with inflammatory bowel disease (primary encounter diagnosis) (I73.00) Raynaud's phenomenon without gangrene (Z15.89) HLA B27 (HLA B27 positive) (K50.818) Crohn's disease of both small and large intestine with other complication (HCC) IBD-associated inflammatory arthropathy, mainly axial involving SI jts, b/l sacroiliitis Patient is HLA-B27 positive (outside labs). She denies uveitis, dactylitis, enthesitis, peripheral jt involvement, EN and denies being diagnosed with psoriasis. She describes a history of scaly rash along feet, cannot exclude that this may have been plantar psoriasis. Her mother has psoriasis; Her sister has alopecia areata and FH of lupus. She describes definite inflammatory back pains involving SI's historically, with significant am stiffness and awakening latter part of night due to SI gelling. She reports doing well today and feels flares has had her disease under control with dietary changes She reports significant and full response to Humira, but would only take it prn. She describes some flares as sharp pain in SI's, where she is unable to walk and not as much stiffness, more pain. These symptoms are not c/w inflammatory jt flare. It is possible that she may have experienced a mechanical strain to an underlying affected joint (SI's), except that she reports ?immediate response after Humira injection. 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 Has had steroids over the yrs for the CD, I could not verify duration. Her DXA was recently completed, is normal (and within expect for age, I personally review her scans). She has b/l sacroiliitis on MRI 08/13/2022 and patient was having a flare at that time of her IBD and SI's then. She prefers to avoid medications when possible. She is very motivated towards anti-inflammatory diet and lifestyle. She is a mcc smoker. Has quit off and on. She is motivated to quit and is aware of risks. I counseled patient on smoking cessation. She is following with her Destination Sign Repairer, IBD specialist, Dr. CLAUDIA Gonzalez, for her Crohn's disease. I reviewed last GI team note from Dec 10, 2022 : From a Crohn's standpoint, she has ileal and sigmoid colon involvement; no prior surgery. She was initially treated with intermittent prednisone and sulfasalazine/mesalamine. She has been on Humira since 2018 (also on it from 0077-2203)- started mostly for . However, she only uses it PRN- in fact has only taken it once in the past year in 05/2022. Due to c/o prominent bloating we ordered a glucose breath test-08/2022 (negative) and MRe-07/2022 with active stricturing disease involving a 4 cm segment of the TI. She recently had a colonoscopy (12/03/2022) with a non-traversable (despite multiple attempts) ileocecal valve d/t intrinsic severe stenosis. Today she continues to feel well from a Crohn's perspective, with her only symptom being a constant bloat (likely related to her stricture). She is open to surgery if this is the best route for her case. - Roro Cain APRN.LABORER SHELLFISH PROCESSING At today's visit, she denies LB or SI pains. Reports has had pain along the mid T-spine. She has no significant am gelling at this time (reported 2 min) and has no clinical evidence for active inflammatory arthropathy on exam. Will obtain x-rays to have baseline of her SI jts and will obtain T-sp x-rays to evaluated for upper back involvement and syndesmophytes. Patient is candidate for biologic treatment for her IBD-associated SpA. If her disease becomes active, we can assist with resuming Humira. We discussed concern with developing immunogenicity if takes it only prn. With her axial predominant disease, a biologic med such as anti-TNF is recommended. Oral conventional DMARDs would no provide benefit to axial disease. We also reviewed anti-inflammatory diet and lifestyle, as this is of great interest for her. She reports that her symptoms already improved significantly since she has made changes in her diet. She has vitamin D deficiency and was advised to take a pill. Due to her stricture and IBD, liquid vitamin D is safer and more effective. I advised her on liquid vitamin D and this can be adjusted to 50,000 international units dosing as was advised to take. Will recheck vitamin D next month. She described whitish discoloration of her finger tips which are s/o raynaud's phenomenon. She has not findings or pictures to confirm. Nailfold capill was not abnormal. Her main risk is smoking. Reviewed risk and hazard of smoking. She is motivated to quit smoking. Her Gastroenterology team have referred to smoking cessation specialist and has had visit. She reports her main problem now is related to her stenosis with bloating. Dr. Gonzalez has referred for surgery. Per her Destination Sign Repairer notes and plan: patient does not require anti-TNF therapy at this time. They are not planning to prescribe Humira or biologic therapy and are deferring this to Rheumatology, since it is not require for her CD at this time. The patient has had good response to Humira for her . She does not feel is needed at this time, also if having surgery for her stricture soon, would defer until after surgery and cleared from infection. Offered additional evaluation and future labs for January. Will obtain LYLA screen by IFA with reflex, due to reported history of raynaud's phenomenon and darshan if will be resuming anti-TNF therapy. She will obtain at the same time of her pre-op labs for her CORS. 05/19/2023 Arthritis associated with IBD Following with GI for Crohns More flares CD Trying to control with diet Helps with CD and back Humira works well for her Needs to be on biweekly per GI Stress increasing stiffness Did not receive humira yet Will see nutrition More CD flares Following with opth for blurry vision 09/23/23 Arthritis associated with IBD No flares, joints are in remission on humira Following with GI Following with vas med for anti phospholipid syndrome and referred to anticoag clinic + centromere- monitoring- no evidence of ssc Plan RECOMMENDATION/PLAN: Reviewed indication for orders with instructions Labs per GI Offered referral to ophthalmology due to reported vision changes, and to exclude uveitis (no findings on gross exam) Resuming Humira per GI and has helped with SpA in past Every 2 weeks per GI She is exercising Reviewed yoga Reviewed vitamin D supplement I reviewed conservative care, wellness and healthy lifestyle, as well as the benefits of a whole foods plant based diet. I have had many patients experience significant relief in musculoskeletal pains and inflammatory arthropathy, by avoiding refined sugars and dairy and following whole foods plant based diet. Additional time spent with patient on healthy lifestyle, healthy food and anti-inflammatory diet (with emphasis on whole plant based diet), avoiding refined carbs/sugars and processed food, appropriate exercise (stretching, cardio and strengthening), good sleep hygiene, stress mgt, and supplementing vital deficiencies and maintaining healthy wt and healthy BMI. Additional information provided with references and educational information. RAYNAUD'S PHENOMENON Long discussion with patient regarding Raynaud's phenomenon, triggering factors, avoiding cold exposure and proper precautions and warning symptoms and signs. I discussed importance of proper attire to keep extremities and core body temperature warm for optimal control of RP symptoms. If digital ulcers develop or any ischemia/gangrene, to contact us or seek prompt medical care. Discussed importance of avoiding all exposure to nicotine and sympathomimetics (such as pseudophed and other drugs), alcohol and excessive caffeine intake. Raynaud's phenomenon (RP) can often be managed with lifestyle modification. Simple measures can be implemented to reduce the frequency, severity, and duration of attacks and include avoiding cold temperatures and temperature fluctuations; alleviating stress; adopting measures to keep the body warm, including adequate clothing (eg, using multiple layers, wearing thermal underwear and a warm hat); and keeping the fingers warm (eg, by using mittens or electric hand warmers instead of gloves). Placing the hands under warm water or rotating the arms in a windmill pattern may help abort Raynaud's attacks . Recommend avoiding cold exposure. This is particularly important in the winter season, as discussed, and proper attire to keep extremities and core body temperature warm for optimal control of RP symptoms. Recommend avoiding all exposure to nicotine and sympathomimetics (such as pseudoephedrine and other drugs), alcohol and excessive caffeine intake.Both active and passive smoking should be avoided to help minimize the vasoconstrictive effects of tobacco. Sympathomimetic drugs (eg, decongestants, stimulants, and anorexiants) should also be avoided. I explained, indication for calcium channel blockers (and occasionally topical NTG) if symptoms more active in cold season of not adequately controlled with conservative management. Additional more intensive therapy are available when clinically necessary. Written information provided today on Raynaud's Phenomenon. Bone Health Recommendations: -Bone Density is recommended after menopause and after age 55-60, sooner if patient has risk factors, sooner if on systemic steroid use of 3 months or more. -Vitamin D supplementation recommended, optimal dose is the dose necessary to achieve Vitamin D 25-OH blood level in range of 40-60 ng/mL. (Vitamin D supplement in international units, is the dose necessary to achieve a Vitamin D 25-OH blood level in range of 40-60 ng/mL). -Recommended daily dose of calcium: 1200mg total a day in divided doses. Calcium from dietary sources, if not sufficient, or if with h/o calcium nephrolithiasis would recommend Calcium Citrate supplement, as it is recommended to avoid caclium carbonate products, which as main dietary calcium source. The after visit summary has information on dietary calcium and instructions on reading calcium label and converting the %DV to mg. -Regular weight-bearing and muscle-strengthening exercise -Avoidance of tobacco smoking, excessive alcohol intake and excessive caffeine intake. -Fall and fracture precautions -Continued regular dental follow up visits and good dental/gum care Discussed medication dosage, usage, goals of therapy, and side effects. Additional time spent on interpretation of test results. Available laboratories an their clinical significance were reviewed with the patient. Radiographs were reviewed at todays visit. Additional time was spent outside of the patient visit to review records. today. Assessment and plan were discussed with the patient. Additional time spent with the patient to discuss their questions. Additional time spent with the patient devoted to discussing treatment strategy, planning, implementation and preventive health and wellness recommendations. -Will follow results and advise further by MyChart/Telephone or Apt. -Patient is following with Primary care physician and other providers for their other health care. Return for as scheduled . Portions of this note have been copied from my previous note and have been updated to reflect today's visit note September 23, 2023 all reflect current medical decision making from date of this visit. I spent a total of 35 minutes on the date of the service which included preparing to see the patient, [id number] patient care, completing clinical documentation, obtaining and/or reviewing separately obtained history, performing a medically appropriate examination, counseling and educating the patient/family/caregiver, and ordering medications, tests, or procedures. Luz Sims APRN.LABORER SHELLFISH PROCESSING cc: PCP: Bernda Landon [address] [place] [address] Subjective HISTORY OF PRESENT ILLNESS NEW CONSULT January 19, 2023 Accompanied by her mother: Cyndee Ms. Lucas is a very nice 37 y.o. lady with pertinent PMH of IBD and sacroiliitis. She relays that her goal is to be on minimal meds States if her jts flare she would prefer to take Humira, as needed, as it worked for her before, would only take it if flares. States is aware that it can stop working if taken as such (referring to immunogenicity). With Humira denies freq infections or adverse effect She has been under the care of IBD specialist, Destination Sign Repairer, Dr. CLAUDIA Gonzalez, since 2021. He confirmed her diagnosis of Crohn's disease She has had IBD for about 10 yrs; Reports has had colonoscopies and biopsies to confirm States she was diagnosed with based on her sacroiliitis, around age 16 yrs, by a Furrier Designer Initially was being diagnosed for torn muscle, but her MRI showed active sacroiliitis Joints: SI and Lumbar States as I aged has noticed pains along ribs and mid thoracic and sometimes feels like somebody punched me in the lungs Flares would involved LB at the SI's, would have sharp shooting pain and cannot take another step and cannot sit right nothing Am stiffness: yes, much improved with Humira She has also received steroids before, unable to verify dosing and frequency States used to have to get out of bed at 3 am due to back stiffness Jt swelling: none Currently Denies pain Denies LB pain Am stiffness: couple minutes ; no longer waking up at 3 am When stiff, turns her heating pad for couple min, would be along T-sp and is fine Dactylitis or Enthesitis: denies PF/AT history: denies Denies history of uveitis or iritis Denies psoriasis, but had cracking and peeling in the soles , states saw Inventory Control Assistant and was not given diagnosis for psoriasis No reported history of EN Her mother has psoriasis Her sister has alopecia areata Reports FH of lupus Rx for IBD: prednisone methotrexate took for 6 months, no benefit, to bowels and jts Humira prescribed 40 mg sq every 2 wks, for 4 yrs Denies other biologic medications States she stopped taking Humira States takes Humira differently : states can get Humira prn and only takes them when she flares. States was getting shipment and using them prn. States would use one injection and her flare would resolve. States she understands that by taking prn can lead to immunogenicity and does not work. Her Furrier Designer left [place] States since changed her diet, has not had a severe flare up in 2 yrs States was doing shrimp and rice and salads, nuts, fruits and veggies States has since started a totally different diet and started exercising and is good. States Dr. Gonzalez did not recommended biologic medications, and did not plan on prescribing Humira or other medications. She reports her CD is ok, feels has a lot of inflammation that she cannot get rid of, states does not get typical flares States uses bentyl if has spasms States her CD presents with severe pain under breast bone would land in the hospital 2 days Rarely would have bld in stools, diarrhea would be uncommon for her Gets bloating and gas and discomfort. Colonoscopy report 11/2022: Impression: - Stricture at the ileocecal valve could not be traversed. - One 4 mm polyp in the sigmoid colon, removed with a cold biopsy forceps. Resected and retrieved. - The examination was otherwise normal. - Biopsies were taken with a cold forceps for histology in the descending colon, in the transverse colon and in the ascending colon. Sheldon Abreu MD 12/03/2022 9:52:14 AM States will be having surgery on her Ileum States she is currently on a very limited diet Diet: water, 1 cup of coffee rice and chicken, carrots States cannot have anything with a peel or skin States if blended in a sweeping compound blender can have. She consumes cheese, daily, as snacks and a yogurt, high protein yogurt okeos zero sugar States told can have fruits and veggies blended She has met with dietitian and he recommended that diet and is considering Mediterranean diet after her surgery. Stress has been a trigger for flares and reason for smoking Exercise: Goes to the gym 3-4 times a wk Has had PT in the past, states does not feel is an huge benefit She was found to have vitamin D deficiency : and was prescribed 50,000 international units capsule once a week, taking with a meal. 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 not seen space physicist Eye Dryness: No Nose Bleeds: No Sores in your Mouth: No Trouble Swallowing: No Dry Mouth: No Chest Pain: No Leg Swelling: No A Cough: No Shortness of Breath: No Pain with Breathing: No Heartburn: No Abdominal Pain: No Diarrhea: No Black Tarry Stools: No Blood in Urine: No Pain or Burning with Urination: No Joint Pain or Stiffness: Yes - as above Muscle Weakness: No Muscle Aches: No Joint Swelling: Yes- reviewed, denies to me Morning Stiffness in Joints: Yes A Rash: No Skin Color Changes: No Hair Loss: No Nail Changes: No Headaches: No Numbness: Yes- when gets raynaud's phenomenon : reports white and bluish discoloration if fingers b/l; She smokes, discussing importance of smoking cessation; She is working on smoking cessation. 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 Per faxed records from [place] when seen 10/2019 by GI there: Diagnosed with CD in 2010 via serology. C-scope 09/2013 pathology showed granuloma in TI, minimally active chronic colitis in ICV, mildly active chronic colitis in sigmoid colon with granuloma. Treated with sulfalazine and Lialda but discontinued. Started on Humira in 2015 mainly for by Rheum at [facility], was on it for a year then stopped to assess symptoms off of it, but restarted 07/2018. Antibodies checked and negative 08/2018. Had a flare in 2018 while she was with up to 10 watery bloody BMs a day, treated with course of Prednisone 07/2019. Also had bloating for which she was prescribed flagyl and symptoms resolved. Labs [id number] provided significant for elevated CRP to 5 in 10/2017, and Fecal calpro 90 in 05/2018. Last C-scope ~2017 per pt, records unavailable, CD did not look active, however she has a stricture in the ileocolonic region, never needed dilation. Ms. Lucas is here today as her local GI is retiring, from [place], [place]. She follows with [facility] in [facility], planning to move all care here. Symptoms that led to the diagnosis of CD were mainly abdominal pain. Humira is first biologic she's been on. Was on it weekly for about 4 years, has been using it as needed for the past year. Last dose was a couple of weeks ago (06/23/2022), was stressed and felt CD flare symptoms therefore used it. Has no Humira injections left. Kept symptoms at bay with lifestyle changes (exercise, better diet). Hasn't needed steroids for CD flare in >1 year, hasn't been hospitalized in ~8 years. Most significant GI symptom today is bloating. She is on a prebiotic daily & uses GasX PRN, helps some. Has Bentyl prn. Most recent GI tract testing: glucose breath test (08/2022)- negative; MRe (07/2022)- active stricturing disease involving a 4 cm segment of the TI; Colonoscopy (12/03/2022) with a non-traversable (despite multiple attempts) ileocecal valve d/t intrinsic severe stenosis. IMPRESSION: STRICTURE WITH IMAGING FINDINGS OF ACTIVE INFLAMMATION INVOLVING AN APPROXIMATELY 4 CM SEGMENT OF TERMINAL ILEUM. PENETRATING DISEASE: ABSENT. BILATERAL SACROILIITIS. Precision Grinder: JHONNY Transcribe Date/Time: Aug 14 2022 3:16P Dictated by : CARLOS MANUEL DORANTES DO This examination was interpreted and the report reviewed and electronically signed by: CARLOS MANUEL DORANTES DO on Aug 14 2022 3:46PM EST Results-Findings * * *Final Report* * * DATE OF EXAM: Aug 13 2022 8:53PM QBM [id number] - MRI ABD ENTEROG WO/W IVCON / PROCEDURE REASON: multiple diagnoses * * * * Physician Interpretation * * * * MRI OF THE ABDOMEN AND PELVIS WITHOUT AND WITH CONTRAST (MR ENTEROGRAPHY) CLINICAL HISTORY: 37 year old female with PMHx of?ankylosing spondylitis (HLA B27+), former smoker (quit in 2011),?nephrolithiasis?and inflammatory?vs stricturing?ileocolonic CD here to establish care for CD. ? Per faxed records from [facility] when seen 10/2019 by GI there: Diagnosed with CD in 2010 via serology. C-scope 09/2013 pathology showed granuloma in TI, minimally active chronic colitis in ICV, mildly active chronic colitis in sigmoid colon with granuloma. Treated with sulfalazine and Lialda but discontinued. Started on Humira in 2015 mainly for by Rheum at [facility], was on it for a year then stopped to assess symptoms off of it, but restarted 07/2018. Antibodies checked and negative 08/2018. Had a flare in 2018 while she was with up to 10 watery bloody BMs a day, treated with course of Prednisone 07/2019. Also had bloating for which she was prescribed flagyl and symptoms resolved. Labs [id number] provided significant for elevated CRP to 5 in 10/2017, and Fecal calpro 90 in 05/2018.?Last C-scope 2017 per pt, records unavailable, CD did not look active, however she has a stricture in the ileocolonic region, never needed dilation. COMPARISON: None. TECHNIQUE: Magnet: 3.0 Veena Coil: Torso phased array Sequences / planes: HASTE: axial and coronal SPAIR:Axial 1 mg of intravenous glucagon was administered during the examination. T1 3-D GRE without and with iv contrast: axial and coronal Diffusion weighted imaging with ADC mapping: axial Contrast: IV: 13 ml of Dotarem Oral: 1000 ml of Breeza RESULT: GI Tract: Small bowel: Mural thickening, hyperenhancement, and mild upstream dilation involving an approximately 4 cm segment of terminal ileum extending to the ileocecal junction, consistent with stricture with component of mild active inflammation (19:41). No small bowel mural thickening or hyperenhancement otherwise. Colon and Rectum: No mural hyperenhancement or wall thickening. Strictures: 4 cm segment of terminal ileum. Fistulae/Sinus tracts: None. Abscess: None. Abdomen: Liver: Normal morphology. No suspicious lesions where visualized. Biliary: No biliary dilation. Gallbladder is unremarkable. Spleen: No mass. No splenomegaly. Pancreas: No mass or duct dilation. Adrenals: No mass. Kidneys: No suspicious lesions or hydronephrosis. Lymph nodes: No abdominal or pelvic lymphadenopathy. Mesentery / Peritoneum / Retroperitoneum: No ascites or organized collection. Vasculature: The celiac axis and SMA are patent. The portal vein and branches, splenic vein, SMV, and hepatic veins are patent. No abdominal aortic aneurysm. Pelvis: Urinary bladder is unremarkable. No organized intrapelvic collection. Minimal free fluid, likely physiologic. Bones/Soft Tissues: Signal changes suggesting bilateral sacroiliitis. INTERVAL HISTORY Doing good Colonoscopy yesterday In remission No inflammation Trouble getting to upper GI will have mri to check Had panel lupus anticoag panel + Consult to vas [facility] saw Dr. 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 Shaffer and Dr. Brown She had terminated preg due to problems with children and did not miscarriage Will go to [facility] Dr. 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 Five points is a clinically meaningful difference.) 12/30/2022 03/29/2023 09/23/2023 Physical T-Score 50.8 54.1 57.7 Mental T-Score 48.3 53.3 50.8 PROMIS CAT Pain Interference 01/18/2023 05/19/2023 09/23/2023 PROMIS Pain Interference T-Score (range: 10 - 90) 40 (within normal limits) 60 (mild) 49 (within normal limits) PROMIS Pain Interference Percentile 84 % 16 % 54 % PROMIS CAT Fatigue 01/18/2023 05/19/2023 09/23/2023 PROMIS Fatigue T-Score 62 (moderate) 60 (mild) 55 (within normal limits) PROMIS Fatigue Percentile 12 % 16 % 31 % PROMIS PHYSICAL FUNCTION T-SCORE 01/18/2023 05/19/2023 09/23/2023 PROMIS Physical Function T-Score 43 (mild dysfunction) 48 (within normal limits) 54 (within normal limits) Physical Function Percentile 24 % 42 % 66 % PHQ-9 0 - 4: Minimal Depression 5 - 9: Mild Depression 10 - 14: Moderate Depression 15 - 19: Moderately Severe Depression 20 - 27: Severe Depression PHQ-9 01/18/2023 PHQ-2 Score 2 Objective Treatment History Relevant Previous Investigations CBC Latest Ref Rng & Units 2023 02/17/2023 03/07/2023 03/08/2023 WBC 3.70 - 11.00 k/uL 11.44(H) 6.37 5.61 3.20(L) HEMOGLOBIN 11.5 - 15.5 g/dL 11.6 10.7(L) 13.2 12.0 HEMATOCRIT 36.0 - 46.0 % 34.8(L) 33.2(L) 39.2 37.1 PLATELETS 150 - 400 k/uL 226 192 280 253 ABS NEUT (ANC) 1.45 - 7.50 k/uL 9.66(H) - 4.41 - ABS LYMPH 1.00 - 4.00 k/uL 0.85(L) - 0.39(L) - CMP Latest Ref Rng & Units 2023 02/17/2023 03/07/2023 03/08/2023 SODIUM 136 - 144 mmol/L 136 139 138 139 POTASSIUM 3.7 - 5.1 mmol/L 3.7 3.7 4.4 3.9 CHLORIDE 97 - 105 mmol/L 102 106(H) 102 105 CO2 22 - 30 mmol/L 25 26 25 24 GLUCOSE 74 - 99 mg/dL 108(H) 103(H) 89 87 BUN 7 - 21 mg/dL 14 8 8 5(L) CREATININE 0.58 - 0.96 mg/dL 0.80 0.70 0.68 0.72 CALCIUM, TOTAL 8.5 - 10.2 mg/dL 9.1 8.4(L) 9.5 8.8 AST 13 - 35 U/L - - 19 - ALT 7 - 38 U/L - - 13 - ALKALINE PHOSPHATASE 34 - 123 U/L - - 90 - CRP Latest Ref Rng & Units 02/11/2023 02/14/2023 2023 02/17/2023 CRP <0.9 mg/dL <0.3 0.5 1.5(H) 1.1(H) RF and CCP Latest Ref Rng & Units 02/11/2023 RHEUMATOID FACTOR <16 IU/mL <10 CCP ANTIBODY IGG QUALITATIVE Negative Negative CCP ANTIBODY, IGG <20 Units <15 Hepatitis Screen Latest Ref Rng & Units 07/05/2022 12/10/2022 HEPAIGG Negative Negative - HEPAIGM Negative - Negative HEPBCOTOL Negative Negative Negative HEPSABQ Positive Negative Negative(A) HEPCABEIA Negative Negative Negative HBSAG Negative Negative Negative TB Screen 07/05/2022 12/10/2022 TBGINT Infection with M. tuberculosis complex is unlikely. If latent tuberculosis infection is highly suspected, a negative result does not rule out the infection. Specimens from immunocompromised patients and those <5 years of age may show false negative results. In case of a contact investigation, please repeat 8-12 weeks after a known exposure. Infection with M. tuberculosis complex is unlikely. If latent tuberculosis infection is highly suspected, a negative result does not rule out the infection. Specimens from immunocompromised patients and those <5 years of age may show false negative results. In case of a contact investigation, please repeat 8-12 weeks after a known exposure. TBGRES Negative Negative Antibodies Latest Ref Rng & Units 02/11/2023 05/20/2023 LYLA Negative Positive(A) - LYLA TITER - >1:1280 - LYLA PATTERN - Centromere - DNA ANTIBODY W/CONFIRMATION <30 IU/mL <12 - ANTI-SM <1.0 AI <0.2 - SM ANTIBODY Negative Negative - RIBOSOMAL IRRIGATION SUPERVISOR AB <1.0 AI <0.2 - RIBOSOMAL IRRIGATION SUPERVISOR QUAL Negative Negative - CHROMATIN AB <1.0 AI <0.2 - CHROMATIN AB QUAL Negative Negative - SSA ANTIBODY QUAL Negative Negative - ANTI-SSA <1.0 AI <0.2 - ANTI-SSB <1.0 AI <0.2 - IRRIGATION SUPERVISOR ANTIBODY QUAL Negative Negative - SCL-70 AB QUAL Negative Negative - SCL-70 ABS, EIA <1.0 AI <0.2 - CENTROMERE AB <1.0 AI >8.0(H) - CENTROMERE AB QUAL Negative Positive(A) - CARMEL-1 ANTIBODY, IGG <1.0 AI <0.2 - CARMEL 1 ANTIBODY QUAL Negative Negative - BETA 2 GLYCOPROTEIN, IGM <20 SMU 38(H) 23(H) BETA 2 GLYCOPROTEIN, IGM <20 SMU 38(H) 23(H) CARDIOLIPIN AB, IGG <15.0 GPL <9.0 <9.0 CARDIOLIPIN AB, IGM <12.5 MPL 17.9(H) <9.0 CARDIOLIPIN AB, IGA <12.0 APL <9.0 <9.0 PT SEC 9.7 - 13.0 sec 9.9 9.9 PT INR 0.9 - 1.3 1.0 1.0 PTT 23.0 - 32.4 sec 28.1 27.8 PLATELET NEUT Negative Negative Negative DRVVT SCREEN 32.0 - 45.7 seconds 36.0 30.9(L) DRVVT CONFIRM RATIO <1.32 1.04 1.03 DRVVT 1 TO 1 MIX 32.0 - 45.7 seconds 36.6 33.5 HEX PHASE SCREEN 34.0 - 51.8 seconds 48.2 42.4 HEX PHASE CONFIRM 34.2 - 47.9 seconds 46.2 43.1 HEX PHASE DELTA <7.1 delta seconds 2.0 0.0 APTT SCREEN 24.0 - 35.1 seconds 33.7 30.2 THROMBIN TIME <18.6 seconds <16.8 <16.8 Urinalysis Latest Ref Rng & Units 03/07/2023 PROTEIN, URINE Trace, Negative Negative RBC, URINE 0-3 /HPF 0-3 /HPF Imaging / Studies Last XR Sacroiliac - Impression Only XR SACROILIAC JOINTS 2V AP PELVIS/FERGUESON Exam End: 01/19/2023 11:01 AM (Final result) Impression: IMPRESSION: 1. Bilateral sacroiliitis. Precision Grinder: JHONNY Transcribe Date/Time: Jan 19 2023 12:03P ... Last MRI Hip/Pelvis - Impression Only MRI FEMALE PELVIS WO/W IVCON Exam End: 07/12/2023 6:25 PM (Final result) Impression: IMPRESSION: NO FOCI OF ENDOMETRIOSIS OR DEEP INFILTRATIVE ENDOMETRIOSIS IDENTIFIED. NO ACUTE FINDINGS IN THE PELVIS. Precision Grinder: JHONNY ... Last CT Hip/Pelvis - Impression Only No resulted procedures found. Review of Systems Review of Systems CONSTITUTION: Negative for: Fever and Recent weight change HEENT: Negative for: Nosebleeds, Mouth sores, Trouble swallowing and Dry mouth RESPIRATORY: Negative for: Cough, Shortness of breath and Pain with breathing GASTROINTESTINAL: Negative for: Melena, Diarrhea, Heartburn and Abdominal pain MUSCULOSKELETAL: Positive for: Arthralgias and Morning Joint Stiffness Negative for: Myalgias, Muscle weakness and Joint swelling NEUROLOGICAL: Negative for: Headaches, Numbness and Memory loss SKIN: Positive for: Hair loss Negative for: Rash, Skin changes and Nail changes EYES: Negative for: Eye pain, Eye redness, Eye dryness and visual disturbance CARDIOVASCULAR: Negative for: Chest pain and Leg swelling GENITOURINARY: Negative for: Dysuria and Hematuria HEMATOLOGIC/LYMPHATIC: Negative for: Swollen glands All other reviewed and negative other than HPI. Problem List ACTIVE PROBLEM LIST S/P Small Bowel Resection Nicotine use disorder, F17.2 Ankylosing Spondylitis (Hcc) Crohn's Disease (Hcc) Postoperative Pain Uti (Urinary Tract Infection) Skilled Nursing Current Use of Anticoagulant Hypercoagulable State (Hcc) Past Medical History PAST MEDICAL HISTORY Diagnosis Date Crohn's disease (HCC) Raynaud's syndrome Past Surgical History PAST SURGICAL HISTORY Procedure Laterality Date PAST SURGICAL HISTORY OF 2 C sections 2008, 2011 Family History FAMILY HISTORY Problem Relation Age of Onset Heart Father Hypertension Father Cataract Father Heart Maternal Grandmother Macular Degen Maternal Grandmother Cataract Paternal Grandfather Social History Social History Tobacco Use Smoking status: Every Day Packs/day: .5 Types: Cigarettes Passive exposure: Current Smokeless tobacco: Never Vaping Use Vaping Use: Never used Substance Use Topics Alcohol use: Yes Comment: Twice a week Drug use: Never Medications Current Outpatient Medications Medication Sig adalimumab 40 mg/0.4 mL subcutaneous pen kit (HUMIRA (CF)) Inject 40 mg (1 pen) subcutaneously every 2 weeks. No current facility-administered medications for this visit. Physical Exam BP 126/70 Pulse 72 Wt 146 lb (66.2kg) LMP 08/29/2023 Physical Exam Vitals reviewed. Constitutional: General: She is not in acute distress. Comments: WD/WN, NAD. Appropriate grooming. HENT: Head: Normocephalic and atraumatic. Comments: No patchy alopecia, normal temporal artery pulsations, non-tender, scalp non-tender, no conjunctival injection or icterus, no oral ulcers, no thrush, no nasal bridge collapse, no cartilage swelling, no parotid gland swelling. Cardiovascular: Rate and Rhythm: Normal rate and regular rhythm. Pulses: Normal pulses. Heart sounds: No murmur heard. No friction rub. No gallop. Pulmonary: Effort: Pulmonary effort is normal. No respiratory distress. Breath sounds: Normal breath sounds. No stridor. No wheezing, rhonchi or rales. Comments: CTA, Good respiratory effort. Abdominal: Palpations: Abdomen is soft. Tenderness: There is no abdominal tenderness. Musculoskeletal: Cervical back: Neck supple. No tenderness. Comments: No significant joint deformities, no rheumatoid nodules, calcifications or tophi. No SI tenderness, no basil's tenderness, no heel/plantar tenderness, lumbar flexion full; Borderline abnormal Emanuel's test. Finger to floor 10 cm Swoll JTS: 0 Tend. JTS: 0 No clinical synovitis in the DIP's, PIP's, MCP's, wrists, elbows, shoulders, knees, ankles, midfoot, or toes. No knee effusions bilateral. Shoulder exam: FROM without pain or impingement Hip rom without pain LIMITATION of Motion of Joints: mild SI's Thoracic/Lumbar Spine: No percussion tenderness SLR: negative b/l, modified No instability in any upper or lower extremity joints. Lymphadenopathy: Cervical: No cervical adenopathy. Skin: Capillary Refill: Capillary refill takes less than 2 seconds. No raynaud's phenomenon on exam Nailfold capillaroscopy performed on January 19, 2023 of left 3rd finger: no dilated capillary loops, no dropped loops, no hemorrhages. Comments: No rash, no psoriasis, no purpura, no ulcers, no skin thickening/tightness, no circular telangiectasias. No clubbing,discoloration,sclerodacty ly, periungual erythema, digital ulcers, nail pitting, edema. Neurological: General: No focal deficit present. Mental Status: She is alert and oriented to person, place, and time. Sensory: No sensory deficit. Motor: No weakness. Gait: Gait normal. Psychiatric: Mood and Affect: Mood normal. Behavior: Behavior normal. There is currently no information documented on the homunculus. Go to the Rheumatology activity and complete the homunculus joint exam. Joint Exam 09/23/2023 No joint exam has been documented for this visit Joint Exam Data (across time) documented in this encounter [facility] 09-22-2023 Note [facility] 09-22-2023 History of Present illness Narrative Images from the original note were not included. COLORECTAL SURGERY VIRTUAL VISIT FOLLOW UP I have communicated my name and active licensure. The patient's identity and physical location were verified at the time of this visit. Either the patient or their legal herbicide service sales representative has been informed of the risks and benefits of -- and alternatives to -- treatment through a remote evaluation and consents to proceed with the evaluation remotely. I had a virtual visit with Ms. Lucas today for follow up of recent antiphospholipid syndrome diagnosis. She has been feeling well from a GI perspective, but was recently diagnosed with antiphospholipid syndrome and recommended to start therapeutic anticoagulation. She asked to meet to discuss this. Patient will be seeing Dr. Gautam Hill on 10/18/2023. Colonoscopy today: Impression: - Patent Kono-S ileo-colonic anastomosis, characterized by healthy appearing mucosa. - Crohn's disease, in remission. Biopsied. - Simple Endoscopic Score for Crohn's Disease: 0, mucosal inflammatory changes secondary to Crohn's disease, in remission. Biopsied. UPDATED HISTORY: Jocelyne Lucas is a 38 year old female is being seen through [facility] visit to discuss recent diagnosis of antiphospholipid syndrome. She was seen previously through [facility] visit office dated 03/24/2023. MRI FEMALE PELVIS WO/W IVCON dated 07/12/2023: NO FOCI OF ENDOMETRIOSIS OR DEEP INFILTRATIVE ENDOMETRIOSIS IDENTIFIED. NO ACUTE FINDINGS IN THE PELVIS. [facility] visit dated 03/24/2023: Jocelyne Lucas returns for a post-operative visit after undergoing Laparoscopic ileocolic resection with Kono S reconstruction, on 02/14/23. She is moving bowels 1-2 times per day Good control of stool, though some urgency She is still on a soft diet Had a UTI and COVID March 07, 2023 - no longer with symptoms 02/14/23 Dr. Shaffer Laparoscopic ileocolic resection with Kono S reconstruction TAP block Findings: Crohn's disease of the terminal ileum, short stricture at ileocecal valve, remaining of the bowel appears healthy Laparoscopic ileocecal resection, Kono-S anastomosis TAP block, revision of midline scar *Surgical Pathology* A. Ileum, colon, and appendix, resection: -Segment of ileum and colon with chronic active enteritis, ulcer, stricture, non-necrotizing granuloma, and transmural inflammation; compatible with the patient's history of Crohn disease. -Negative for dysplasia. -Endometriosis involving serosa. -The surgical resection margins are negative for neutrophilic inflammation. -Five lymph nodes with no diagnostic abnormalities. -Appendix with no diagnostic abnormalities. COMMENT Special stains for AFB and GMS were performed on parts A1 and A3 and were not contributory as granuloma disappeared on deeper sections. A benign gland associated with stroma is identified on the serosa on part A5. The gland shows diffuse positive staining for PAX8 and ER and the stromal cells show diffuse positive staining for ER. These immunohistochemical staining results support the diagnosis of endometriosis. C/B post op UTI and covid History of Present Illness: Jocelyne Lucas is a 38 year old year old female with a history of Crohn's disease, diagnosed in 2010. Notes mucous and blood in her stool around [id number]. Started on Humira after that time. Had remission during in 2011 Started on Humira in 2016 with significant improvement in symptoms Recently transferred her care from [facility]. Had repeat staging during this process and found to have significant ileal stricture Every 6 months or so she has obstructive symptoms. She reports she has recently developed some lower abdominal pain with intermittent nausea and abdominal distention. She is exercising and has improved her diet Also with history of ankylosing spondylitis She uses her Humira PRN - takes the injection when she has symptoms. Most recent injection was 2021 Seems to use around once every 4 months or so Notes a history of an anal fissure around 2009 near the time her son was born. No other perianal disease or operation 03/07/23 CT A/P Postoperative changes with no acute process in the abdomen or pelvis. 12/03/22 Colonoscopy - Stricture at the ileocecal valve could not be traversed. - One 4 mm polyp in the sigmoid colon, removed with a cold biopsy forceps. Resected and retrieved. - The examination was otherwise normal. - Biopsies were taken with a cold forceps for histology in the descending colon, in the transverse colon and in the ascending colon. *Pathology* A. Sigmoid colon polyp, biopsy: - Colonic mucosa with minimal hyperplastic changes, negative for dysplasia. B. Random colon, biopsy: - Colonic mucosa with no diagnostic abnormality. 08/13/22 MRe ABD/PEL STRICTURE WITH IMAGING FINDINGS OF ACTIVE INFLAMMATION INVOLVING AN APPROXIMATELY 4 CM SEGMENT OF TERMINAL ILEUM. PENETRATING DISEASE: ABSENT. BILATERAL SACROILIITIS. 05/03/17 Small bowel series- [place]: [place] Medical Decision Making: Assessment Assessment & Diagnosis: Jocelnye Lucas is a 38 year old female with ileocolic in endoscopic and clinical remission now with new diagnosis of antiphospholipid syndrome Treatment plan: She is understandably concerned about starting therapeutic anticoagulation and looking for as much information as she can. We discussed that this is a complicated problem and I strongly encourage her to follow up with the experts in this area to assure she is comfortable with the treatment plan, but that this is outside my scope of practice and I cannot make recommendations. Hilary Shaffer MD Medical Decision Making: Problems: Moderate: New problem with uncertain prognosis Data: Unique source(s) for external note(s) reviewed: 2 Unique test result(s) reviewed: 2 Risk: Moderate: Moderate risk from testing/treatment Medical Decision Making Level: 4 - Moderate documented in this encounter [facility] 09-20-2023 Miscellaneous Notes Patient was advised to start warfarin due to new diagnosis of antiphospholipid syndrome from vascular medicine. Patient discussed with Dr. Shaffer. Patient reports Dr. Shaffer's team is assisting her with referral to hematology. She is scheduled for a hysterectomy 12/22/2022. Patient refusing warfarin at her vascular appointment on 09/14/2023 because she is scheduled for procedure with Dr. Brown 09/22/23 & would like to start anticoagulation therapy afterward. She reports she has started the baby Asprin. I advised she should follow the recommendations from vascular medicine. However, I will notify Dr. Brown & will notify her if anything changes with her planned colonoscopy procedure. I confirmed with patient the bowel prep is standard miralax / gatorade & will resend prep instructions to her via my chart. Ankita Hamilton September 20, 2023 11:52 AM Summary: Vascular medicine appointment IMPRESSION/PLAN AND RECOMMENDATIONS: Beta-2 glycoprotein 1 antibody, IgM positive at 38 and 23, more than 12 weeks apart. Prior history of spontaneous first trimester (additional loss of and second semesters or due to genetic defects.) Prior history of pelvic vein thrombosis with thrombophlebitis on 2 term pregnancies, treated with Lovenox for 6 months during that period. Unclear if any specific hypercoagulable work-up was done at that time. Given persistent elevation of beta-2 glycoprotein 1 IGM antibody and given the above clinical scenario, constellation of findings and symptoms indicative of antiphospholipid syndrome. We discussed underlying diagnosis and indication for anticoagulation. Anticoagulation with warfarin indicated given prior history of pelvic thrombophlebitis. Will start on Lovenox to warfarin bridging with goal INR of 2-3. Referral to anticoagulation clinic to establish care. Check INR 09/16/2023 She will need perioperative bridging which therapeutic Lovenox Parish Page MD Summary: Phone Call - Update Pt has a new diagnosis that she would like to discuss before starting her prep for her colonoscopy with Dr. Brown on 09/22. As she does not want to prep if she will not be having the colonoscpoy. documented in this encounter [facility] 09-20-2023 Miscellaneous Notes Addended by: LAMONT BROWN on: 09/20/2023 10:26 AM Modules accepted: Orders Patient left voicemail for prep, message forward to Office. documented in this encounter [facility] 09-18-[address] Page, Spoke to pt and she has not started either the warfarin or Lovenox. She will speak to her other doctors this week before deciding if she will proceed with anticoagulation, and regardless she wants to wait until after colonoscopy on 09/22. Our clinic will call the patient on 09/23 and she should have decided by this time if she will be starting warfarin + Lovenox after her procedure, or if we should disregard her referral if she decides not to start the medications. Images from the original note were not included. Parish Page MD You Just now (9:58 AM) Agree, regarding the colonoscopy, that is a new development that she did not mention to me. She was supposed to have a INR check today SH Dr. Page, I wanted to let you know that our clinic has still not been able to reach this patient to discuss her anticoagulation referral on Lovenox. See the tele encounter from 09/14. I will continue to try to reach her over the weekend. If I do reach her, I noticed she has a colonoscopy scheduled on 09/22. I would like to suggest stopping warfarin now and using Lovenox monotherapy until her procedure, and then restart warfarin after the procedure and continue Lovenox until her INR is therapeutic. Please let me know if you agree with this plan. Joanie Che RPh Anticoagulation Clinic documented in this encounter [facility] 09-14-2023 Note [facility] 09-14-2023 History of Present illness Narrative Images from the original note were not included. [facility] [place] SECTION OF REGIONAL CARDIOLOGY OUTPATIENT VISIT DATE September 14, 2023 OUTPATIENT VISIT TYPE NEW PRIMARY CARE PHYSICIAN: Brenda Landon [address] [place] [address] REFERRING PHYSICIAN: Franchesca Zuniga [address] [place] [address] Patient is being seen at the request of the referring physician for abnormal coagulation profile. My final recommendations will be communicated back to the requesting physician by way of the shared medical record. HISTORY OF PRESENT ILLNESS: Ms. Lucas is a 38 year old female, evaluated in clinic today for abnormal hypercoagulation profile. She saw Dr. Andrews for ankylosing spondylitis and Raynauds disease. No hx of lupus. Due to history of previous spontaneous , hypercoagulation profile was done. This showed elevated beta-2 glycoprotein, IgM at 38 in January 2023. Subsequent reevaluation's showed persistent elevation of beta-2 glycoprotein IgM at 23 Had colorectal surgery for crohn's disease. Earlier this year. No hx of VTE lety-op Scheduled for hysterectomy Nov 2023 adenomyosis/endometriosis: Pregnancies: 5 total pregnanies 1st preg-septic thrombophlebitis-now 12 and viable. She was treated with Lovenox for 6 months 2nd -18 weeks spontaneous . 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 Delivered prematurely. Treated with anticoagulation with Lovenox for 6 months 5th -trisomy 18, lost second trimester. She was placed on lovenox during this . NO family hx of VTE events. Denies any significant bleeding complications, except heavy menses. REVIEW OF SYSTEMS: 10 systems reviewed and are negative with the exception of pertinent positives described in HPI PHYSICAL EXAMINATION: BP 106/70 Pulse 84 Wt 65.8 kg (145 lb) LMP 08/16/2023 (Within Days) BMI 25.69 kg/m General: No acute distress, appears comfortable HEENT: no bruits, no JVD Pulmonary/chest: CTA b/L. No chest wall tenderness/venous engorgments CVS: Normal S1 and S2, Regular rhythm, normal rate. No murmurs/rubs or gallops. No JVD, no lower extremity edema. Central and peripheral pulses 2+ B/L, no carotid or abdominal bruits. Abdomen: Soft, non-tender, non-distended. Bowel sounds normal Extremities: No peripheral edema/varicosities Skin: No rashes/ulcers, warm and pink Neuro: AAOx4 Psych: Normal mood and affect CARDIOVASCULAR MEDICINE TESTING: Reviewed hypercoagulable labs as above PAST MEDICAL HISTORY Diagnosis Date Crohn's disease (HCC) Raynaud's syndrome PAST SURGICAL HISTORY Procedure Laterality Date PAST SURGICAL HISTORY OF 2 C sections 2008, 2011 SOCIAL HISTORY Social History Tobacco Use Smoking status: Every Day Packs/day: .5 Types: Cigarettes Passive exposure: Current Smokeless tobacco: Never Vaping Use Vaping Use: Never used Substance Use Topics Alcohol use: Yes Comment: Twice a week Drug use: Never FAMILY HISTORY Problem Relation Age of Onset Heart Father Hypertension Father Cataract Father Heart Maternal Grandmother Macular Degen Maternal Grandmother Cataract Paternal Grandfather ALLERGIES: ALLERGIES Allergen Reactions Morphine Other: See Comments CURRENT MEDICATIONS: adalimumab (HUMIRA,CF, PEN [id number]) 80 mg/0.8 mL pen kit Inject 160 mg (2 pens) subcutaneously on day 1, then inject 80 mg (1 pen)subcutaneously on day 15 followed by 40 mg (1 pen) on day29 and every 2 weeks thereafter. adalimumab 40 mg/0.4 mL subcutaneous pen kit (HUMIRA (CF)) Inject 40 mg (1 pen) subcutaneously every 2 weeks. iv contrast (will be provided with radiology test) MRI Female Pelvis Inject, intravenously, once for 1 dose. No IV access, insert saline lock prior to the beginning of sedation, infusion, injection of imaging exam. Discontinue saline lock post exam. If Pt has a central line or IVAD, may access for administration according to line specific nursing protocol. Once exam is complete flush line and de-access according to line specific nursing protocol in the MR contrast administration guidelines link. (Patient not taking: Reported on 09/14/2023) Surgical Lubricant Jelly gel For MRI Female Pelvis, MRI department to provide. Administer intra-vaginal Surgilube immediately prior the MRI procedure (total amount to patient toleranace). (Patient not taking: Reported on 09/14/2023) norethindrone (AYGESTIN) 5 mg tablet Take 1 tablet by mouth once daily. lidocaine (LIDODERM) 5 % Apply 1 Patch as directed every 24 hours. (Patient not taking: Reported on 09/14/2023) IMPRESSION/PLAN AND RECOMMENDATIONS: Beta-2 glycoprotein 1 antibody, IgM positive at 38 and 23, more than 12 weeks apart. Prior history of spontaneous first trimester (additional loss of and second semesters or due to genetic defects.) Prior history of pelvic vein thrombosis with thrombophlebitis on 2 term pregnancies, treated with Lovenox for 6 months during that period. Unclear if any specific hypercoagulable work-up was done at that time. Given persistent elevation of beta-2 glycoprotein 1 IGM antibody and given the above clinical scenario, constellation of findings and symptoms indicative of antiphospholipid syndrome. We discussed underlying diagnosis and indication for anticoagulation. Anticoagulation with warfarin indicated given prior history of pelvic thrombophlebitis. Will start on Lovenox to warfarin bridging with goal INR of 2-3. Referral to anticoagulation clinic to establish care. Check INR 09/16/2023 She will need perioperative bridging which therapeutic Lovenox Parish Page MD documented in this encounter [facility] 09-14-2023 History of Past i llness Narrative Problem Noted Date Diagnosed Date Resolved Date Antiphospholipid syndrome 09/14/2023 documented as of this encounter (statuses as of 10/11/2023) [facility]10-18-2023 History of Past illness Narrative* Problem Noted Date Diagnosed Date Resolved Date Antiphospholipid syndrome 09/14/2023 documented as of this encounter (statuses as of 10/19/2023) [facility]-18[facility] History of Past illness Narrative* Problem Noted Date Diagnosed Date Resolved Date Antiphospholipid syndrome 09/14/2023 documented as of this encounter (statuses as of 10/19/2023) [facility] History of Past illness Narrative* Problem Noted Date Diagnosed Date Resolved Date Antiphospholipid syndrome 09/14/2023 documented as of this encounter (statuses as of 11/15/2023) [facility] Instructions * Patient Instructions* Beth Bingham - 09/05/2023 2:59 PM EDT PATIENT SURGICAL CHECKLIST - NEXT STEPS You and your provider have determined that you are a surgical candidate. Here are the next steps inthe process to you being scheduled for your surgery: Your provider will submit the case to the schedulers. You should receive a call within 5 business days from our scheduling team. If you do not receive a call within 5 days - then please call [phone] Once contacted by the scheduling team, you will work with the entomology teacher to select a surgical OR date that works for both you and the provider The entomology teacher will set up all of your Pre-Op appointments, which may include all or some of the following: Pre-Op consent appointment w/ your provider Pre-Op teaching appointment - *can be done virtually Labs Admit Interview OnePACC (Anesthesia Clearance) And any other testing that the provider orders for prior to surgery You will receive a call from the wind projects supervisor the day prior to your surgery as to when and where to arrive on the day of your scheduled surgery QUESTIONS: If you have any clinical questions: Please contact your provider's office directly; [phone] If you have any scheduling questions: Please contact the surgery scheduling office at [phone] THANK YOU for choosing the [facility]! We wish you a speedy recovery and continued good health! [facility] History of Present illness Narrative* Adrien Cruz MD - 09/05/2023 2:30 PM EDT Images from the original note were not included. [facility] SECTION FOR MINIMALLY INVASIVE GYNECOLOGIC SURGERY OUTPATIENT VISIT DATE 09/05/2023 OUTPATIENT VISIT TYPE ESTABLISHED PRIMARY CARE PHYSICIAN: Brenda Landon [address] [place] [address] CHIEF COMPLAINT: Follow up HISTORY OF PRESENT ILLNESS: Jocelyne Lucas is a pleasant 38 year old No obstetric history on file. female who presents for management of pelvic pain with a PMHx significant for endometriosis. She was last seen in clinic on 05/20/2023. At that time, she agreed to MRI imaging for evaluation of possible deep infiltrating endometriosis. The plan at her last visit included: PLAN: After a thorough discussion, we have derived at the following plan: - Order pelvic MRI - Order norethindrone acetate 5 mg - Follow up after MRI to review results and discuss further management. In clinic today, pt reports wanting to discuss MRI results. Pt would like to discuss options movingforward. She reports having BTB while on Aygestin, and has stopped taking it. She does pass a small amount of clots. Confirms pain radiates to her thighs. IMAGING/LABS: MRI PELVIS 07/12/2023 IMPRESSION: NO FOCI OF ENDOMETRIOSIS OR DEEP INFILTRATIVE ENDOMETRIOSIS IDENTIFIED. NO ACUTE FINDINGS IN THE PELVIS. RESULT: Uterus: Size: 9.3 x 3.9 x 5.3 cm Orientation: Anteverted Endometrium: Maximum width measures 4 mm. No endometrial lesion. Junctional zone: Maximum thickness: 11 mm, upper limits thickness. Normal signal. Cervix: Numerous T2 hyperintense cystic structures throughout the cervix measuring up to 1.2 cm compatible with nabothian cysts. Leiomyomas: None Adenomyomas: None Ovaries: - Right ovary: 6.3 x 4.6 x 5.6, inclusive of a dominant simple cyst/follicle measuring 4.6 x 5.0 x 4.6 cm. - Left ovary: 3.0 x 1.6 x 2.6 cm, physiologic cysts/follicles. Anterior compartment: Bladder: Normal Ureter: Normal Vesicouterine pouch: Normal Vesicovaginal pouch: Normal Middle Compartment Disease: Torus uterinus (Uterine body): Normal Fallopian tube: Normal Uterine ligaments: Normal Posterior compartment disease: Uterosacral ligament: Normal Rectovaginal septum: Normal Anterior rectal wall: Normal Sigmoid colon: Normal Additional sites of endometriosis: None Pelvis free fluid: Trace, likely physiologic. No organized collection. Lymph nodes: No pelvic lymphadenopathy. Bones: Normal marrow signal. Additional findings: Postsurgical changes along the ventral pelvic wall. Mild rectus diastases. Past Medical History: PAST MEDICAL HISTORY Diagnosis Date Crohn's disease (HCC) Raynaud's syndrome Past Surgical History: PAST SURGICAL HISTORY Procedure Laterality Date PAST SURGICAL HISTORY OF 2 C sections 2008, 2011 Family History: FAMILY HISTORY Problem Relation Age of Onset Heart Father Hypertension Father Cataract Father Heart Maternal Grandmother Macular Degen Maternal Grandmother Cataract Paternal Grandfather Social History: Social History Tobacco Use Smoking status: Every Day Packs/day: .5 Types: Cigarettes Passive exposure: Current Smokeless tobacco: Never Vaping Use Vaping Use: Never used Substance Use Topics Alcohol use: Yes Comment: Twice a week Drug use: Never Current Outpatient Medications Medication Sig adalimumab (HUMIRA,CF, PEN [id number]) 80 mg/0.8 mL pen kit Inject 160 mg (2 pens) subcutaneouslyon day 1, then inject 80 mg (1 pen)subcutaneously on day 15 followed by 40 mg (1 pen) on day29 and every 2 weeks thereafter. adalimumab 40 mg/0.4 mL subcutaneous pen kit (HUMIRA (CF)) Inject 40 mg (1 pen) subcutaneously every 2 weeks. iv contrast (will be provided with radiology test) MRI Female Pelvis Inject, intravenously, once for 1 dose. No IV access, insert saline lock prior to the beginning of sedation, infusion, injection of imaging exam. Discontinue saline lock post exam. If Pt has a central line or IVAD, may access for administration according to line specific nursing protocol. Once exam is complete flush line and de-access according to line specific nursing protocol in the MR contrast administration guidelines link. Surgical Lubricant Jelly gel For MRI Female Pelvis, MRI department to provide. Administer intra-vaginal Surgilube immediately prior the MRI procedure (total amount to patient toleranace). norethindrone (AYGESTIN) 5 mg tablet Take 1 tablet by mouth once daily. lidocaine (LIDODERM) 5 % Apply 1 Patch as directed every 24 hours. No current facility-administered medications for this visit. Allergies As of Date: 09/05/2023 Allergen Noted Reaction MORPHINE 02/28/2017 Other: See Comments Fully Assessed 09/05/2023 REVIEW OF SYSTEMS: POSITIVES IN BOLD Per HPI PHYSICAL EXAMINATION: Vital Signs: 09/05/23 1434 BP: 113/68 Pulse: 91 Weight: 145 lb (65.8 kg) Height: 5' 3 (1.6 m) General appearance: Well appearing, alert, in no acute distress, well-hydrated, well nourished. Skin: Skin color, texture, turgor normal, no suspicious rashes or lesions Abdomen: Normal abdominal exam, Abdomen soft, non-tender. Bowel sounds normal. No masses, organomegaly see below PELVIC EXAMINATION: Def IMPRESSION: Jocelyne Lucas is a 38 year old No obstetric history on file. female who presents with Adenomyosis, Abnormal Uterine Bleeding, and Dysmenorrhea.There were no signs of deep infiltrating endometriosis on the MRI, though she does have results consistent with adenomyosis. We discussed management options, and pt is interested in definitive surgery via total hysterectomy. Her ovaries appear healthy and can be retained for hormone production. I advised I would prefer she have her surgery performed at [facility] in case I need Dr. Shaffer's assistance. We discussed the outpatient laparoscopic procedure and the recovery timeline, pt would like to proceed. Discussed menstrual suppression, and pt would like to stay off of the Aygestin for now. Consent sent to pt to sign, and I will place the case request. AUB-A: We discussed at length what is known about the pathophysiology of adenomyosis. Uterine adenomyosis is a condition that causes heavy, painful periods in women. In women who have uterine adenomyosis, the uterus gets larger than normal. This happens because the kind of cells that normally line the inside of the uterus start to grow in the mosley of the uterus. Uterine adenomyosis will be called just adenomyosis here. Adenomyosis often happens along with other problems that affect the uterus, especially endometriosis. Endometriosis is a condition in which the kind of cells normally found only in the uterus starts to grow outside of the uterus. The only proven treatment for adenomyosis is surgery to remove the uterus, called a hysterectomy. But there are other treatment options that might reduce the heavy bleeding caused by adenomyosis, including hormonal suppression options: - IUD - An intrauterine device (IUD) is a small device that fits inside the uterus and is normally used to prevent . One type of IUD, which releases the hormone progestin, might help with the symptoms of adenomyosis. (IUDs must be placed in the uterus by a doctor or nurse.) - Discussed TLH procedure. Explained ovaries will be kept in place for hormone maintenance as well as to maintain bone, brain, and heart health. Discussed salpingectomy and educated that salpingectomy has been shown to decrease lifetime risk of ovarian cancer. Educated removal of cervix should not affect sexual function, vaginal length, or cause organ prolapse. Discussed if cervix is removed, there will be no need for future pap smears if previous 20 years of pap smears were negative. Also explained that if cervix is left in place, there is a chance fibroids can grow off of cervix in the future. Explained that TLH will not affect sexual function and as long as at least one ovary is left in p lace pt will not go into surgical menopause. PLAN: - Case request for total laparoscopic hysterectomy and excision of endometriosis placed. Written and verbal health teaching given to patient, patient verbalizes understanding and agrees with treatment plan. Medical Decision Making: Problems: Moderate: 1+ chronic illnesses with change Data: Unique source(s) for external note(s) reviewed: 2 Unique test result(s) reviewed: 1 Risk: High: Decision on elective major surgery w/ risk factors Medical Decision Making Level: 4 - Moderate I personally interviewed, confirmed and edited the above information if obtained by others. Scribe Attestation: By signing my name below, I, Beth Bingham, attest that this documentation has been prepared under the direction and in the presence of Dr. Adrien Polanco MD. Electronically Signed:deisi Day, September 05, 2023 8:03 AM Adrien Landers MD documented in [facility]23 Miscellaneous Notes* Telephone Encounter - EunDeanna chao RN - 07/20/2023 2:57 PM EDT ANDRES 05/20/2023 IMPRESSION: Ms. Lucas is a 38 year old No obstetric history on file. female who presents today with Endometriosis Pelvic pain in female. Primary symptoms include bloating, pelvic pain, heavy menses. She does not desire uterine preservation. Reviewed her history and symptoms, endometriosis was found on the surface of the bowel during prior laparoscopic bowel resection. Discussed pathophysiology of endometriosisin length. Discussed association between IBD and endometriosis. I recommend a pelvic MRI to evaluate her anatomy for any infiltrative endometriosis, which pt is receptive to. I additionally advise she begin hormonal suppression in the interim to provide symptom relief, and she is receptive to norethindrone acetate. If the medication does provide relief and she tolerates it well, she may choose toproceed with medical management without surgery. Pt will follow up after MRI to discuss results andpossible surgical options for treatment. We discussed at length what is known about the pathophysiology of endometriosis. Educated that there is little if any correlation between the severity of endometriosis seen at the time of surgery andthe severity of pain symptoms or even implications for fertility. The diagnosis can only be confirmed by surgery with tissue sample examined by pathology. Educated that endometriosis is often a chronic condition that may recur and often requires a mcc treatment plan. Once endometriosis is identified, there are many effective therapies for endometriosis, but, unfortunately, there is no single therapy that is effective for all women with endometriosis-related pelvic pain. The first line therapy for women with endometriosis who are not trying to conceive is often hormonal suppression and approximately 70% of women experience improvement in their pain with hormonal suppression (i.e., progestins, oral contraceptives). If no improvement in pain symptoms in 3-6 months or for women who desire , surgical therapy is typically offered. Surgical therapy with excision and/or ablation of endometriosis provides a similar chance for pain improvement (~ 70%), but the risk of recurrent pain approaches 50% just 2 - 4 years after surgery. Repetitive surgeries tend to be less successful than the initial surgery for the treatment of pain. Some women are candidates for denervation procedures such as a presacral neurectomy. Finally, we also discussed that even when endometriosis is identified in women with pelvic pain, it is often not the only cause of pain and other possible sources of pain should be identified and treated. These causes may include gastrointestinal, genitourinary, ps ychological, or musculoskeletal. PLAN: After a thorough discussion, we have derived at the following plan: - Order pelvic MRI - Order norethindrone acetate 5 mg - Follow up after MRI to review results and discuss further management. Written and verbal health teaching given to patient, patient verbalizes understanding and agrees with treatment plan. I personally interviewed, confirmed and edited the above information if obtained by others. Scribe Attestation: By signing my name below, I, Beth Bingham, attest that this documentation has been prepared under the direction and in the presence of Dr. Adrien Polanco MD. Electronically Signed:deisi Day, May 18, 2023 9:37 AM Adrien Landers MD documented in this encounterOhio [facility]08-15-[facility] Miscellaneous Notes* Telephone Encounter - Ankita Vega - 06/16/2023 6:17 PM EDTSummary: FREDDY PA VENEGAS: [id number] Additional Information Required An active PA is already on file with expiration date of 11/26/2023. Please wait to resubmit requestwithin 60 days of that expiration date to obtain a PA renewal. documented in this encounterOhio [facility] Hospital07-12-2023 [facility]-23-[facility] Instructions* Patient Instructions* Beth Bingham - 05/20/2023 9:12 AM EDT [facility] [phone] OFFICE [phone] A [employer] [facility] SURGICAL SCHEDULERS documented in this encounterOhio Valley [facility] Hospital06-23-2023 History of Present illness Narrative* Adrien Landers MD - 05/20/2023 8:30 AM EDT Images from the original note were not included. [facility] [place] SECTION FOR MINIMALLY INVASIVE GYNECOLOGIC SURGERY OUTPATIENT VISIT DATE 05/20/2023 OUTPATIENT VISIT TYPE CONSULT PRIMARY CARE PHYSICIAN: Brenda Landon [address] [place] [address] CHIEF COMPLAINT: Endo Consultation requested by Dr Hilary Shaffer for an opinion regarding Jocelyne Lucas, and my final recommendations will be communicated back to the requesting physician by way of shared medical record or letter via US mail. HISTORY OF PRESENT ILLNESS: Jocelyne Lucas is a pleasant 38 year old No obstetric history on file. female who presents with a history of ENDOMETRIOSIS. She describes her symptoms as sharp, shooting pain in the RLQ, bloating, heavy periods, diarrhea Symptoms have been present for since her surgery in January 2023 Her pain is felt at these locations: RLQ and general across the pelvis Pain radiates to low back She describes her periods as being regular, present q 28-30 days, last for 6-7 days, heavy flow for3 days and then spotting for a couple days, + clots. She goes through tampons and a panty liner per1 hour. Her pain is worse during her menses. Patient also reports a history of painful periods after, she reports having to miss school secondary to pain. She has tried the following for menses suppression: Depo-Provera, OCPs She is currently taking nothing for menses suppression -Dysmenorrhea: yes -Dysuria: yes, deep pain in pelvis/abdomen -Dyschezia: yes -Dyspareunia: yes, deep pain in pelvis/abdomen Positive hx of dysmenorrhea since childhood. x2 - two living children, hx of miscarriages. Has not noticed if pain is worse with physical activity. She has missed work/school due to pain. She has visited the Emergency Room for the pain. She does not desire future child bearing. She has not been a victim of emotional, physical, or sexual abuse. Aggravating factors: cycles. Alleviating factors: Motrin, heating pad. -Colonoscopy: 12/03/2022 stricture at ileocecal valve and 4 mm polyp removed. -EMB: No -Previous surgical intervention: LAPAROSCOPY COLECTOMY, PARTIAL, W/ REMOVAL TERMINAL ILEUM W/ ILEOCOLOSTOMY 01/2023 -Previous non-surgical intervention: no Pelvic floor PT; no Central acting medications; no vaginal baclofen; no functional medicine consult; no behavioral health consult; no pelvic floor injections SURGERY: 02/14/2023 - LAPAROSCOPY COLECTOMY, PARTIAL, W/ REMOVAL TERMINAL ILEUM W/ ILEOCOLOSTOMY indicated for Crohn's disease. FINAL DIAGNOSIS A. Ileum, colon, and appendix, resection: -Segment of ileum and colon with chronic active enteritis, ulcer, stricture, non-necrotizing granuloma, and transmural inflammation; compatible with the patient's history of Crohn disease. -Negative for dysplasia. -Endometriosis involving serosa. -The surgical resection margins are negative for neutrophilic inflammation. -Five lymph nodes with no diagnostic abnormalities. -Appendix with no diagnostic abnormalities. KENIA/JESUS 02/22/23 06/28/2018 - Ultrasound guided Dilation & Evacuation indicated for trisomy 18. IMAGING: CT ABD/PEL 03/07/2023 IMPRESSION: Postoperative changes with no acute process in the abdomen or pelvis. RESULT: Liver: No mass. Biliary: No bile duct dilation. Gallbladder is collapsed. Spleen: No mass. Splenic calcification likely reflects a granuloma. No splenomegaly. Pancreas: No mass or duct dilation. Adrenals: No mass. Kidneys: No mass, calculus or hydronephrosis. GI tract: Postoperative changes of ileocolic resection. Small bowel is nondilated and oral contrast reaches distal ileal loops. No wall thickening or mural hyperenhancement to suggest active enteritis. Lymph nodes: No abdominal or pelvic lymphadenopathy. Mesentery/Peritoneum: No ascites or mass. No collection. Retroperitoneum: No mass. Vasculature: - Abdominal aorta and iliac arteries: No aneurysm. - Celiac and SMA: Patent without stenosis. - Portal venous system (SMV, splenic vein, portal vein and branches): Patent. - Hepatic veins: Patent. Pelvis: No mass, ascites or fluid collection. Bones/Soft Tissues: Sclerotic change in subchondral cysts at the bilateral sacroiliac joints, compatible with history of sacroiliitis. The abdominal wall is unremarkable. Lower thorax: Minimal bilateral subsegmental atelectasis. Tomato Pulper Operator (topogram) images: No additional findings. Past Gynecologic History: Menarche: 11 LMP: 04/28/2023 Last pap cytology: 10 yrs ago normal History of abnormal history No History of STI: No History of PID: No Past Obstetrical History: Section: 2 Miscarriage: 2 Past Medical History: PAST MEDICAL HISTORY Diagnosis Date Crohn's disease (HCC) Raynaud's syndrome Past Surgical History: PAST SURGICAL HISTORY Procedure Laterality Date PAST SURGICAL HISTORY OF 2 C sections 2008, 2011 Family History: No family history on file. Social History: Social History Tobacco Use Smoking status: Every Day Packs/day: 0.50 Types: Cigarettes Smokeless tobacco: Never Substance Use Topics Alcohol use: Yes Comment: Twice a week Drug use: Never Current Outpatient Medications Medication Sig lidocaine (LIDODERM) 5 % Apply 1 Patch as directed every 24 hours. adalimumab (HUMIRA,CF, PEN BACURX-OX-YR) 80 mg/0.8 mL pen kit Inject 160 mg (2 pens) subcutaneouslyon day 1, then inject 80 mg (1 pen)subcutaneously on day 15 followed by 40 mg (1 pen) on day29 and every 2 weeks thereafter. adalimumab 40 mg/0.4 mL subcutaneous pen kit (HUMIRA (CF)) Inject 40 mg (1 pen) subcutaneously every 2 weeks. No current facility-administered medications for this visit. Allergies As of Date: 05/20/2023 Allergen Noted Reaction MORPHINE 02/28/2017 Other: See Comments Fully Assessed 05/20/2023 REVIEW OF SYSTEMS: POSITIVES IN BOLD Per HPI PHYSICAL EXAMINATION: Vital Signs: 05/20/23 0815 BP: 113/71 Pulse: 76 Weight: 63.6 kg (140 lb 4.8 oz) Height: 160 cm (5' 3 ) General appearance: Well appearing, alert, in no acute distress, well-hydrated, well nourished. Skin: Skin color, texture, turgor normal, no suspicious rashes or lesions Abdomen: Normal abdominal exam, Abdomen soft, non-tender. Bowel sounds normal. No masses, organomegaly see below Depression: denies symptoms of depression. Emotional support: No PELVIC EXAMINATION: Def IMPRESSION: Ms. Lucas is a 38 year old No obstetric history on file. female who presents today with Endometriosis Pelvic pain in female. Primary symptoms include bloating, pelvic pain, heavy menses. She does not desire uterine preservation. Reviewed her history and symptoms, endometriosis was found on the surface of the bowel during prior laparoscopic bowel resection. Discussed pathophysiology of endometriosisin length. Discussed association between IBD and endometriosis. I recommend a pelvic MRI to evaluate her anatomy for any infiltrative endometriosis, which pt is receptive to. I additionally advise she begin hormonal suppression in the interim to provide symptom relief, and she is receptive to norethindrone acetate. If the medication does provide relief and she tolerates it well, she may choose toproceed with medical management without surgery. Pt will follow up after MRI to discuss results andpossible surgical options for treatment. We discussed at length what is known about the pathophysiology of endometriosis. Educated that there is little if any correlation between the severity of endometriosis seen at the time of surgery andthe severity of pain symptoms or even implications for fertility. The diagnosis can only be confirmed by surgery with tissue sample examined by pathology. Educated that endometriosis is often a chronic condition that may recur and often requires a terminal gauger treatment plan. Once endometriosis is identified, there are many effective therapies for endometriosis, but, unfortunately, there is no single therapy that is effective for all women with endometriosis-related pelvic pain. The first line therapy for women with endometriosis who are not trying to conceive is often hormonal suppression and approximately 70% of women experience improvement in their pain with hormonal suppression (i.e., progestins, oral contraceptives). If no improvement in pain symptoms in 3-6 months or for women who desire , surgical therapy is typically offered. Surgical therapy with excision and/or ablation of endometriosis provides a similar chance for pain improvement (~ 70%), but the risk of recurrent pain approaches 50% just 2 - 4 years after surgery. Repetitive surgeries tend to be less successful than the initial surgery for the treatment of pain. Some women are candidates for denervation procedures such as a presacral neurectomy. Finally, we also discussed that even when endometriosis is identified in women with pelvic pain, it is often not the only cause of pain and other possible sources of pain should be identified and treated. These causes may include gastrointestinal, genitourinary, ps ychological, or musculoskeletal. PLAN: After a thorough discussion, we have derived at the following plan: - Order pelvic MRI - Order norethindrone acetate 5 mg - Follow up after MRI to review results and discuss further management. Written and verbal health teaching given to patient, patient verbalizes understanding and agrees with treatment plan. Medical Decision Making: Problems: Moderate: 1+ chronic illnesses with change Data: Unique source(s) for external note(s) reviewed: 3+ Unique test result(s) reviewed: 2 Unique test(s) ordered: 1 Risk: Moderate: Drug management Medical Decision Making Level: 4 - Moderate I personally interviewed, confirmed and edited the above information if obtained by others. Scribe Attestation: By signing my name below, I, Beth Bingham, attest that this documentation has been prepared under the direction and in the presence of Dr. Adrien Polanco MD. Electronically Signed:deisi Day, May 18, 2023 9:37 AM Adrien Landers MD documented in [facility] Instructions* Patient Instructions* Luz Sims APRN.[employer]ER [employer] - 05/19/2023 9:23 AM EDT -PLEASE NOTE THAT WE REVIEW ALL YOUR TEST RESULTS AT YOUR NEXT FOLLOW UP VISIT WITH YOU. IF ANY ABNORMAL LAB REQUIRES SOONER ATTENTION, WE WILL CONTACT YOU. -If you have signed up on [employer], we will release your test results through [employer]. I wish you the best of health and wellness. -Please take care and stay safe and healthy. Consume a healthy diet, stay well hydrated, sleep well, be happy, improve stress (include meditation and regular exercise), ensure adequate vitamin D. Spend some time in nature, around trees and barnett (forest bathing). Spend time outdoors next to greenery on a [place] day to benefit from the healing benefits of the Near Infra Red light of the sun that reflects on greenery (research showing benefits to cellular healing and benefits against covid-19 infection). These have been shown to help with overall health and wellbeing, stress, inflammation and in promoting a healthy immune system. -Continuous follow up with Primary care physician, for cardiovascular disease prevention, for age appropriate cancer screening and routine health maintenance and wellness, and infection precautions and age appropriate immunization, is recommended. Continue humira per GI - I recommend avoiding all dairy You can use non-dairy alternatives - I recommend smoking cessation; This is very important Also this makes raynaud's phenomenon worse and can lead to gangrene. RAYNAUD'S PHENOMENON Raynaud's phenomenon is an exaggerated response of the arterial vessels to the tips of fingers and toes. Usually triggered by cold and reverses with warming. Triggering factors include cold exposure, smoking, stress, alcohol, excessive caffeine, sinus decongestants, stimulants, etc....Certain measures can be taken to help prevent and reverse Raynaud's attacks. Raynaud's phenomenon (RP) can often be managed with lifestyle modification. Simple measures can be implemented to reduce the frequency, severity, and duration of attacks and include avoiding cold temperatures and temperature fluctuations; alleviating stress; adopting measures to keep the body warm, including adequate clothing (eg, using multiple layers, wearing thermal underwear and a warm hat);and keeping the fingers warm (eg, by using mittens or electric hand warmers instead of gloves). Placing the hands under warm water or rotating the arms in a windmill pattern may help abort Raynaud's attacks . Recommend avoiding cold exposure. This is particularly important in the winter season, as discussed, and proper attire to keep extremities and core body temperature warm for optimal control of RP symptoms. Recommend avoiding all exposure to nicotine and sympathomimetics (such as pseudoephedrine and other drugs), alcohol and excessive caffeine intake.Both active and passive smoking shouldbe avoided to help minimize the vasoconstrictive effects of tobacco. Sympathomimetic drugs (eg, decongestants, stimulants, and anorexiants) should also be avoided. We could consider use of calcium channel blockers (and occasionally topical NTG) if symptoms more active in cold season of not adequately controlled with conservative management. Other more intensivetherapy are available when clinically necessary. Additional written information on raynaud's phenomenon can be found at www.rheumatology.org. - For vitamin D, you can try the liquid form, which would be better absorbed and less concerning for the strictures You can get BlueBonnet 5000 international units per drop, and take 10 drops (to get 50,000 international units) once a week. - Maintaining good vitamin D blood levels is important for bone health and overall health. Please see additional information on vitamin D below. A vitamin D blood test, called vitamin D 25-hydroxy (OH) is obtained to assess vitamin D level. If the vitamin D is low, you will need to take a vitamin D supplement. If you are already on a vitamin D supplement, then the dose will need to be adjusted. Also you multivitamin may contain vitamin D. Vitamin D is a fat soluble vitamin that requires it be taken with good fat to be absorbed. Examplesof healthy fat include nuts, seeds, avocados, olives and for the most part the meal of the day. Spending up to 30 minutes in the sun during Summer and late Spring can provide natural vitamin D tothe uncovered skin (arms, legs) - Your calcium can be sufficient in your diet. Healthy food that are rich in calcium include: nuts, seeds, legumes/beans, peas, dark green leafy vegetables, plant based milk Additional calcium rich foods listed below - Soaking Almonds overnight in the fridge with drinking water, can help with softening the almonds and improved absorption of the almonds. Please be careful not to break a tooth with dry raw almonds,or other hard nuts or seeds. If your lab work shows insufficient calcium or you are unable to consume sufficient foods rich in calcium, then a calcium supplement is recommended, such as calcium citrate. - You can track your nutrition and calcium intake on [email or web address] This provides macro and micronutrient intake and requirements. - You can track your calcium intake on MeterHero or any other calcium tracker of your choice. If you are not getting about 1200 mg of calcium daily, you will need to add a calcium supplement, such as calcium citrate to supplement you daily calcium so you can achieve your total 1200 mg daily See additional information below on calcium. - I recommend following a healthy lifestyle. You can find additional information below. I recommend this to all my patients, as I have seen convincing scientific evidence, and seen the results in my practice, of the benefits of this healthy lifestyle to overall health and wellness. I hope you will find this beneficial as well. A whole plant based diet and healthy lifestyle have been reported to be optimal for health in general, anti-inflammatory diet, prevention of common chronic diseases, healthy weight management, memoryand brain healthy, bone health. - You can track your nutrition and calcium intake on [email or web address] This provides macro and micronutrient intake and requirements. Recommendations for healthy lifestyle include: Healthy nutritious diet, anti-inflammatory diet, appropriate exercise, good sleep hygiene, stress management, supplementing vital deficiencies and maintaining healthy weight. with BMI that does not exceed 25 to 26 . 5 points to remember to improve your health and continue on a healthy path: 1- Optimal nutritious food, such as a Whole Plant Based diet You can watch the documentary movie that features the Whole Plant Based diet, [place] over knives (see video online and visit website). Another movie that was recently released is: Eating You Alive (you can find it at [employer]) and The Game Changers movie Dr. Jessica Mathis is a [facility] physician who is an expert in Whole Plant based diet. His website is [employer]. His research highlights the benefits of the Whole food plant based diet in reversing and preventing heart disease. Mrs. Mathis (his ) has a cookbook with many recipes on whole plant based food: The Prevent and Reverse Heart Disease cookbook. You can also consider reading his son, Richard Mathis's book: The Engine 2 cookbook Richard is a retired animal nursery worker who has helped many people get healthier by following the whole food plantbased diet. Dr. Pancho Maya, has a website and free michelet to help get started on a whole plant based diet, at www.[employer].org and you can log on for free for his 21-Day Kickstart with meals and recipes to follow for21 days. There is also a free michelet for that. He has multiple free videos and YouTube, for example: ht tps://youLendingStandardu.be/gioQrjxD6u9 , https://Nativou.be/WhSTCaxht6b He has written multiple books, including SkemA for the Brain, The Cheese Trap, Dr. Pancho Maya's Program for Reversing Diabetes, Your Body in Balance Dr. Valente Valera has shown the benefit of a starch based whole food plant based diet to his Rheumatoid Arthritis patients, as well as patient with diabetes II, hypertension, obesity, multiple sclerosis, heart disease, acne, and other, his website: www.cheli.CoreXchange Dr. Sydney Reyez is a renowned earth observations chief scientist, who has studied and researched the benefits of the Whole plant based diet. He has also researched the adverse effects of animal proteins on health. He presents many of his research findings in his book The Hamlet study. Dr. Woody Marino has completed many research trials proving the reversal of diseases, such as heart disease and early prostate cancer, with healthy lifestyle and the Whole Plant based diet. Dr. Woody Marino website is: www.bashirJoincube.[email or web address].CoreXchange His new book: Undo It, has evidence based information and guide to following this healthy lifestyle. Dr. Mukesh Kruger has dedicated a website and additional time to reviewing all food related articles and research and presents them in his power point presentation and on his website at: nutritionfacts.org which is all free. Dr. Kruger has multiple free videos and YouTube, for example https://youLendingStandardu.be/aSgNkhgVtks and https://[email or web address].be/lXXXygDRyBU. He has written multiple books including: How Not To and How Not To Diet He is now working on his next book: How Not To Age Dr. Yajaira Jacobs (from the [facility]), has articles on the following website: [employer] Also, you could find additional information on practical to follow recipes by reading or watching online and YouTube such as: Ip [employer] Associate AJ, Cooking With Plants, The Vegan Corner (recipes from an [place] Ip Litigation Associate), The Whole Foods Plant Based Cooking Show and visiting the provided websites for additional information on the whole plant based benefit and cooking recipes. You can also consider watching the vlogs of some of the plant based Athletes such as Rad Brooks Derek on [employer]. Dr. Stacie Ray (a psychiatrist who suffered with lupus) has helped reverse her Systemic Lupus Erythematosus and helps many patients with their auto-immune diseases, based on her recommendations of the whole food plant based diet and the green smoothies. She has a facebook and website, and on youtube her channel is: Goodbye Lupus Some people have adverse effect or intolerance to gluten. Certain patients with auto-immune disease, including auto-immune thyroid disease, need to avoid gluten. If you suspect you are gluten sensitive or intolerant, consider gluten free diet. Gluten could leadto increased inflammation in the bowels and body in certain patients. Not all your food has to be organ if you cannot afford or find them. Consider organic and non-GMO products when shopping for your food, when possible. GMO are genetically modified food that may have adverse impact on our health. If you are unable to purchase organic of non-GMO, you can wash your produce with white vinegar or soak in baking soda and water (see details from Dr. Rosenbaum's website nutritionfacts.org) and rinse well with water. 2- Regular Exercise, such as beginner yoga, candida chi, stretching, cardio, gradual strengthening, pool therapy, physical therapy Come As You Are: YOGA - Gentle Yoga Anyone Can Do Anywhere [email or web address]/[email or web address] Also on youtube: yoga with Itzel 3- Good Sleep (poor sleep impacts everything, recommended sleep is 7.5 to 8 hrs. a night). Certain people need less or more sleep. Meditation and relaxation techniques have shown to help with improving sleep. 4- Stress management, staying positive, be happy, laugh often (it is a great medicine) Find time to relax and meditate if possible. Following steps 1-3 will help with this as well. In psychiatric disorders, it is important to follow with a professional on the optimal management of depression, anxiety or psychiatric illness 5- Supplements Supplementing necessary vitamins and minerals, correcting any deficiencies, i.e. Vitamin D, B12, omega-3 fatty acids etc... Go natural when possible -Important notice: If you are following a Whole plant based diet, it is recommended to take [id number], sublingual, dissolve under the tongue, take once daily. Vitamin B12 is available over the counter, dose could be 2500 mcg, and can be taken once a week, and if your blood levels are low, you mayneed to take it once daily or a higher dose. Raw: Garlic, Cilantro, [place] nuts, Pumpkin seeds, [place] seeds and Flax seed powder have been reported to help with certain metal detoxification such as mercury. [place]-3 plant based rich foods are good anti-inflammatory sources such as : julio seeds, flax seed (needs to be ground), walnuts, hemp seeds, dark green leafy vegetables. It is important to avoid refined oils as much as possible especially that many have too much omega-6 that is pro-inflammatory (lead to inflammation as well as concern for heart and vascular disease). Turmeric can be found natural, used as the spice powder or the root with your food. This is also available as a capsule. If you are on a blood thinner, you will need to discuss with your pharmacist or physician before taking Turmeric If you have gall bladder disease or gall bladder stones, it is recommended to avoid turmeric capsules. Sweet cherries (raw cleaned or frozen), Turmeric , pineapple (contains bromelain), omega-rich foods, have anti-inflammatory benefit Start reviewing the Whole Plant Based Diet, by watching [place] over Endoclear movie and then review website. There are many other resources and educational information on the Whole plant based diet on the Internet and documentaries. There are other resources for wellness that you can also benefit from, such as the [facility] website, [facility] and includes Plant based and Mediterranean diet, yoga and meditation. Please avoid all dairy products. You could use non-dairy milk such as Flax milk, Cashew milk, [place] milk, Rice milk, Oat milk or Hemp milk, instead. It is very important to avoid all: refined sugars (including high fructose syrup), refined carbohydrates, any artificial sweeteners and artificial preservatives, and soda and heavily processed food. Insure adequate hydration; drink at least 6 to 8 cups of water daily, certain people need less or more. Examples of Smoothies: Every morning you can start your day with a healthy natural anti-inflammatory smoothie, for example, you can blend: fresh or frozen sweet cherries, half a root of turmeric (1 to 2 inches), banana, blue berries, walnuts, few leaves of kale, add flax milk (or almond milk), and enjoy. You could add half an avocado if you like it smoother. If you do not tolerate walnuts, you can use flax seeds, julio seeds or hemp seeds instead. If you do not like plant based milk, you can use coconut water or plainwater instead. Other smoothies, including green smoothies, are also very healthy and highly anti-inflammatory. Forexample fruits (such as banana or frozen cesia or pineapple) and add significant amount of leafy greens, then add water or coconut water and blend until smooth. You can also add turmeric in this recipe. GENERAL INFORMATION ON BONE HEALTH : -Bone Density testing (DXA scan) as recommended. -Vitamin D supplementation is recommended, unless blood levels are sufficient. Recommended daily dose of 1000 to 2000 IU total a day, or the dose necessary to achieve a Vitamin D25-OH blood level of >31 and preferably closer to 40-60 ng/mL. Vitamin D pills are available over the counter. -Recommended daily dose of calcium: 1200mg total a day in divided doses. Calcium is usually sufficient in our regular diet, also available in multivitamins. Patients on certain dietary restrictions or those unable to meet their daily calcium by diety alone, may require calcium supplements. For patient with history of calcium kidney stones, Calcium Citrate would be the recommended supplement. It is recommended to avoid caclium carbonate supplement in this case, as these may increase risk of calcium kidney stones. The after visit summary has information on dietary calcium and instructions on reading calcium label and converting the %DV to mg. When you read a food label and you see calcium reported as DV %, add a zero and this will provide you with the approximate mg value of the calcium content in this food. For example, if a glass of almond milk is labeled as 40% calcium DV, then this contains 400 mg of calcium. For additional information, please see references provided. -Regular weight-bearing and muscle-strengthening exercise -Avoidance of tobacco smoking, excessive alcohol intake and excessive caffeine intake. -Fall and fracture precautions -It is recommend to continue regular follow up visits with your dentist every 6 months, and continue with good oral hygiene. Calcium: If your diet is sufficient in Calcium rich food, you will not need calcium supplement. Calcium Citrate is the preferred calcium if you have had kidney stones. Daily recommended calcium dose: 600mg twice a day with meals. Adequate calcium ingestion is essential for maintaining healthy bones. The recommended dose daily intake of calcium varies depending on individual needs but is usually between 1200 and 1500mg daily, preferably around 1200mg a day in divided dose (not all taken at once). This is equivalent to about five 8oz glasses of milk per day. Many foods are rich in calcium and they include: - Plant based, non-dairy, calcium rich products, include nuts, almond milk, beans, lentils - Vegetables and Fruit: bok-greene, turnips, broccoli, kale, collards, - Dairy products: milk, cheese, yogurt, ice-cream - Fish products: canned salmon, sardines and shrimp - Cereals and nuts: almonds, sesame seeds, fortified cereals and oatmeal - Other foods: fortified orange-juice, figs, soybeans, other beans and eggs. If you have a low calcium diet and cannot tolerate calcium-rich foods, many supplements are available today. Your pharmacist can help you choose the one which best suits your needs. A few tips on supplements: - They should be easy to swallow - They should dissolve easily in cup of vinegar in < 15 minutes. - Count the ELEMENTAL calcium mgs. E.g. Calcium 499mg may have only 221mg of elemental Calcium. - Calcium citrate is the calcium supplement to take if you have had kidney stones and unable to meet your calcium requirements from food/diet alone. - There is such a variety today that it is best to bring in the bottle to your doctor to show them exactly what you are taking. Lastly too much calcium can be bad for you. Recent studies show extra supplements may increase yourrisk of kidney stones or cause high calcium levels in some people. You should discuss how much you should be taking with your doctor before starting them. Further Information is available from the following resources: www.nof.org (National Osteoporosis Foundation) http://www.osteo.org/osteolinks.asp [facility]: 8-361-579-BONE The Calcium Information [place]: -Non-Dairy, Plant based Milk, can contain in1 glass up to 450 mg of calcium (300 to 450 mg) Exampled include Oat Milk, Flax Milk, [place] Milk, Cashew Milk, Soy Milk, Peas Milk general health and well being Examples of Food Sources of Calcium from NIH Food Milligrams (mg) per serving Percent DV* Soymilk, calcium-fortified, 8 ounces 299 30 Pound juice, calcium-fortified, 6 ounces 261 26 Tofu, firm, made with calcium sulfate, cup* 253 25 Tofu, soft, made with calcium sulfate, cup* 138 14 Qhqfz-sl-jzy cereal, calcium-fortified, 1 cup 100-1,000 10-100 Turnip greens, fresh, boiled, cup 99 10 Kale, raw, chopped, 1 cup 100 10 Kale, fresh, cooked, 1 cup 94 9 Indonesian cabbage, bok greene, raw, shredded, 1 cup 74 7 Bread, white, 1 slice 73 7 Tortilla, corn, omwoz-wv-ejxn/dunbar, one 6 diameter 46 5 Tortilla, flour, lybio-jh-cfab/dunbar, one 6 diameter 32 3 Bread, whole-wheat, 1 slice 30 3 Broccoli, raw, cup 21 2 * DV = Daily Value. DVs were developed by the U.S. Food and Drug Administration to help consumers compare the nutrient contents among products within the context of a total daily diet. The U.S. Department of Agriculture s (USDA s) Nutrient Database Web site lists the nutrient contentof many foods and provides comprehensive list of foods containing calcium arranged by nutrient content and by food name. *Calcium content varies slightly by fat content; the more fat, the less calcium the food contains. * Calcium content is for tofu processed with a calcium salt. Tofu processed with other salts does not provide significant amounts of calcium. You could acces this information online at: http://ods.od.nih.gov/factsheets/Calcium-HealthProfessional/ Vitamin D: Vitamin D3= cholecalciferol, available over the counter. Dose recommended 800 to 1000 iu daily with a meal; Certain patients require 6231-8310 iu daily and in patients deficient in Vitamin D, they require higher dosages. Certain patient requires higher dose, depending on their Vit D blood levels. Vitamin D is essential for calcium metabolism. It is really a hormone produced mainly in your skin after exposure to sunlight. Vitamin D helps you absorb calcium from your stomach and kidneys and incorporates it into your bones. Studies show approximately 50% of [place] men and women are vitamin D deficient in the winter. Milder cases of vitamin D are usually asymptomatic so the only way to know you have a problem is to have a blood level checked. More severe cases can cause osteomalacia(a.k.a. rickets) which can result in bone pain, weak bones and several abnormal laboratory tests and also weak muscles (a.k.a. myopathy). When this happens, your bones lose a lot of their calcium stores as the body tries to regulate the calcium required by other tissues. Prolonged deficiency can lead to severe bone disorders and fractures. Unlike calcium, dietary sources of vitamin D are rare, limited to a few fish oils particularly cod-liver oil, other fortified foods and egg yolks. and most are unhealthy. Natural source of vitamin D is through sunshine. This is usually during cameron seasons, for example a 30 minute exposure to sunshine. Some people are unable to be exposed to the sun due to skin condition. Often supplementation isneeded. Many multivitamins contain some vitamin D and vitamin D alone preparations are now available in several forms. The recommended daily intake of vitamin D used to be 400 and 800 international units, however, it is now known that larger amounts are needed, as discussed above. Your doctor can prescribe prescription strength vitamin D for you if necessary, if you have marked deficiency or diseases of the liver or kidney. Supplementation in patients with severe deficiency can stabilize or improve bone mineral density and in frail elderly persons, may reduce their risk of falling. Additional Information is available from: www.nof.org (the national osteoporosis foundation) http://www.[facility].org/arthritis/osteo/info.htm http://ods.od.nih.gov/factsheets/vitamind.asp [facility]: 2-824-888-BONE The Calcium Information [place]: At the [facility], we work as a team for your care, along with Nurse Practitioners, PhysicianAssistants, Nurses and Medical Assistants. It is a privilege and honor to serve you. Thank you for choosing [facility] for your healthcare. Sincerely, Luz Sims APRN.MITCHELL [facility] History of Present illness Narrative* Luz Sims APRN.MITCHELL - 05/19/2023 8:50 AM EDT Images from the original note were not included. Rheumatology FOLLOW UP VISIT Referring Provider: Franchesca Zuniga Date of Service: 05/19/2023 Gender: female Ethnicity: Declined Age: [age] year old Chief Complaint: Follow Up (discuss Humira -- Crohn's -- stiffness to upper back x 2 mths ) Last Rheumatology visit: 05/19/2023 (with Luz Sims) Jocelyne Lucas is a 38 year old Declined female who presents on 05/19/2023 for in person visit for follow-up of Follow Up (discuss Humira -- Crohn's-- stiffness to upper back x 2 mths ). She is currently taking adalimumab. INTERVAL HISTORY Switched to Dr. Brown Trying to control with diet Helps with CD and back Humira works well for her Needs to be on biweekly per GI Stress increasing stiffness Can be very active and stress induces symptoms More am stiffness mid back and wraps around And with car rides 3-4 am more stiffness No joint swelling Did not receive humira yet Will start Will see nutrition More CD flares Having some blurry vision Will see opth PAIN EVALUATION 05/19/2023 0839 Pain Level: 5 Pain Location: Back-Upper Description: Aching;Sore Duration Amount of Time: 2 Duration Units: Months Frequency: Continuous Comments: more severe a night Impression Diagnoses: (K63.9, M07.60) Arthritis associated with inflammatory bowel disease (primary encounter diagnosis) (M25.69) Back stiffness (M46.1) Bilateral sacroiliitis (HCC) (H53.9) Vision changes (K50.818) Crohn's disease of both small and large intestine with other complication (HCC) IBD-associated inflammatory arthropathy, mainly axial involving SI jts, b/l sacroiliitis Patient is HLA-B27 positive (outside labs). She denies uveitis, dactylitis, enthesitis, peripheral jt involvement, EN and denies being diagnosed with psoriasis. She describes a history of scaly rash along feet, cannot exclude that this may have been plantar psoriasis. Her mother has psoriasis; Her sister has alopecia areata and FH of lupus. She describes definite inflammatory back pains involving SI's historically, with significant am stiffness and awakening latter part of night due to SI gelling. She reports doing well today and feels flares has had her disease under control with dietary changes She reports significant and full response to Humira, but would only take it prn. She describes some flares as sharp pain in SI's, where she is unable to walk and not as much stiffness, more pain. These symptoms are not c/w inflammatory jt flare. It is possible that she may have experienced a mechanical strain to an underlying affected joint (SI's), except that she reports ?immediate response after Humira injection. 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 Has had steroids over the yrs for the CD, I could not verify duration. Her DXA was recently completed, is normal (and within expect for age, I personally review her scans). She has b/l sacroiliitis on MRI 08/13/2022 and patient was having a flare at that time of her IBD and SI's then. She prefers to avoid medications when possible. She is very motivated towards anti-inflammatory diet and lifestyle. 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 Has quit off and on. She is motivated to quit and is aware of risks. I counseled patient on smoking cessation. She is following with her Destination Sign Repairer, IBD specialist, Dr. CLAUDIA Gonzalez, for her Crohn's disease. I reviewed last GI team note from Dec 10, 2022 : From a Crohn's standpoint, she has ileal and sigmoid colon involvement; no prior surgery. She wasinitially treated with intermittent prednisone and sulfasalazine/mesalamine. She has been on Humirasince 2018 (also on it from 9190-5222)- started mostly for . However, she only uses it PRN- in fact has only taken it once in the past year in 05/2022. Due to c/o prominent bloating we ordered a glucose breath test-08/2022 (negative) and MRe-07/2022 with active stricturing disease involving a 4 cm segment of the TI. She recently had a colonoscopy (12/03/2022) with a non-traversable (despite multiple attempts) ileocecal valve d/t intrinsic severe stenosis. Today she continues to feel well from a Crohn's perspective, with her only symptom being a constantbloat (likely related to her stricture). She is open to surgery if this is the best route for her case. - Roro Cain APRN.[employer] At today's visit, she denies LB or SI pains. Reports has had pain along the mid T-spine. She has nosignificant am gelling at this time (reported 2 min) and has no clinical evidence for active inflammatory arthropathy on exam. Will obtain x-rays to have baseline of her SI jts and will obtain T-sp x-rays to evaluated for upper back involvement and syndesmophytes. Patient is candidate for biologic treatment for her IBD-associated SpA. If her disease becomes active, we can assist with resuming Humira. We discussed concern with developing immunogenicity if takesit only prn. With her axial predominant disease, a biologic med such as anti-TNF is recommended. Oral conventional DMARDs would no provide benefit to axial disease. We also reviewed anti-inflammatory diet and lifestyle, as this is of great interest for her. She reports that her symptoms already improved significantly since she has made changes in her diet. She has vitamin D deficiency and was advised to take a pill. Due to her stricture and IBD, liquid vitamin D is safer and more effective. I advised her on liquid vitamin D and this can be adjusted to 50,000 international units dosing as was advised to take. Will recheck vitamin D next month. She described whitish discoloration of her finger tips which are s/o raynaud's phenomenon. She has not findings or pictures to confirm. Nailfold capill was not abnormal. Her main risk is smoking. Reviewed risk and hazard of smoking. She is motivated to quit smoking. Her Gastroenterology team have referred to smoking cessation specialist and has had visit. She reports her main problem now is related to her stenosis with bloating. Dr. Gonzalez has referred for surgery. Per her Destination Sign Repairer notes and plan: patient does not require anti-TNF therapy at this time. They are not planning to prescribe Humira or biologic therapy and are deferring this to Rheumatology, since it is not require for her CD at this time. The patient has had good response to Humira for her . She does not feel is needed at this time, also if having surgery for her stricture soon, would defer until after surgery and cleared from infection. Offered additional evaluation and future labs for January. Will obtain LYLA screen by IFA with reflex,due to reported history of raynaud's phenomenon and darshan if will be resuming anti-TNF therapy. She will obtain at the same time of her pre-op labs for her CORS. 05/19/2023 Arthritis associated with IBD Following with GI for Crohns More flares CD Trying to control with diet Helps with CD and back Humira works well for her Needs to be on biweekly per GI Stress increasing stiffness Did not receive humira yet Will see nutrition More CD flares Following with opth for blurry vision Plan RECOMMENDATION/PLAN: Reviewed indication for orders with instructions She has had recent labs per GI team, including vitamin D, CBC, CMP, hep remote, Quantiferon TB Offered referral to ophthalmology due to reported vision changes, and to exclude uveitis (no findings on gross exam) Will include lupus AC due to 2 miscarriages and reported h/o septic pelvic thrombophlebitis, with both pregnancies, was on lovenox for 6 mo), especially that she will be going for surgery. Resuming Humira per GI and has helped with SpA in past Every 2 weeks per GI She is exercising Reviewed yoga Reviewed vitamin D supplement I reviewed conservative care, wellness and healthy lifestyle, as well as the benefits of a whole foods plant based diet. I have had many patients experience significant relief in musculoskeletal pains and inflammatory arthropathy, by avoiding refined sugars and dairy and following whole foods plantbased diet. Additional time spent with patient on healthy lifestyle, healthy food and anti- inflammatory diet (with emphasis on whole plant based diet), avoiding refined carbs/sugars and processed food, appropriate exercise (stretching, cardio and strengthening), good sleep hygiene, stress mgt, and supplementing vital deficiencies and maintaining healthy wt and healthy BMI. Additional information provided with references and educational information. RAYNAUD'S PHENOMENON Long discussion with patient regarding Raynaud's phenomenon, triggering factors, avoiding cold exposure and proper precautions and warning symptoms and signs. I discussed importance of proper attire to keep extremities and core body temperature warm for optimal control of RP symptoms. If digital ulcers develop or any ischemia/gangrene, to contact us or seek prompt medical care. Discussed importance of avoiding all exposure to nicotine and sympathomimetics (such as pseudophed and other drugs), alcohol and excessive caffeine intake. Raynaud's phenomenon (RP) can often be managed with lifestyle modification. Simple measures can be implemented to reduce the frequency, severity, and duration of attacks and include avoiding cold temperatures and temperature fluctuations; alleviating stress; adopting measures to keep the body warm, including adequate clothing (eg, using multiple layers, wearing thermal underwear and a warm hat);and keeping the fingers warm (eg, by using mittens or electric hand warmers instead of gloves). Placing the hands under warm water or rotating the arms in a windmill pattern may help abort Raynaud's attacks . Recommend avoiding cold exposure. This is particularly important in the winter season, as discussed, and proper attire to keep extremities and core body temperature warm for optimal control of RP symptoms. Recommend avoiding all exposure to nicotine and sympathomimetics (such as pseudoephedrine and other drugs), alcohol and excessive caffeine intake.Both active and passive smoking shouldbe avoided to help minimize the vasoconstrictive effects of tobacco. Sympathomimetic drugs (eg, decongestants, stimulants, and anorexiants) should also be avoided. I explained, indication for calcium channel blockers (and occasionally topical NTG) if symptoms more active in cold season of not adequately controlled with conservative management. Additional more intensive therapy are available when clinically necessary. Written information provided today on Raynaud's Phenomenon. Bone Health Recommendations: -Bone Density is recommended after menopause and after age 55-60, sooner if patient has risk factors, sooner if on systemic steroid use of 3 months or more. -Vitamin D supplementation recommended, optimal dose is the dose necessary to achieve Vitamin D 25-OH blood level in range of 40-60 ng/mL. (Vitamin D supplement in international units, is the dose necessary to achieve a Vitamin D 25-OH blood level in range of 40-60 ng/mL). -Recommended daily dose of calcium: 1200mg total a day in divided doses. Calcium from dietary sources, if not sufficient, or if with h/o calcium nephrolithiasis would recommend Calcium Citrate supplement, as it is recommended to avoid caclium carbonate products, which as main dietary calcium source. The after visit summary has information on dietary calcium and instructions on reading calcium label and converting the %DV to mg. -Regular weight-bearing and muscle-strengthening exercise -Avoidance of tobacco smoking, excessive alcohol intake and excessive caffeine intake. -Fall and fracture precautions -Continued regular dental follow up visits and good dental/gum care Discussed medication dosage, usage, goals of therapy, and side effects. Additional time spent on interpretation of test results. Available laboratories an their clinical significance were reviewed with the patient. Radiographs were reviewed at todays visit. Additional time was spent outside of the patient visit to review records. today. Assessment and plan were discussed with the patient. Additional time spent with the patient to discuss their questions. Additional time spent with the patient devoted to discussing treatment strategy, planning, implementation and preventive health and wellness recommendations. -Will follow results and advise further by MyChart/Telephone or Apt. -Patient is following with Primary care physician and other providers for their other health care. Return lab tomorrow, for [address] Zuniga . I spent a total of 32 minutes on the date of the service which included preparing to see the patient, [id number] patient care, completing clinical documentation, obtaining and/or reviewing separately obtained history, performing a medically appropriate examination, and counseling and educating the patient/family/caregiverPortions of this note have been copied from my previous note and have beenupdated to reflect today's visit note May 19, 2023 all reflect current medical decision making from date of this visit. Luz Sims APRN.[employer] cc: PCP: Brenda Landon [address] [facility] [place] [id number] Subjective HISTORY OF PRESENT ILLNESS NEW CONSULT January 19, 2023 Accompanied by her mother: Cyndee Ms. Lucas is a very nice 37 y.o. lady with pertinent PMH of IBD and sacroiliitis. She relays that her goal is to be on minimal meds States if her jts flare she would prefer to take Humira, as needed, as it worked for her before, would only take it if flares. States is aware that it can stop working if taken as such (referring to immunogenicity). With Humira denies freq infections or adverse effect She has been under the care of IBD specialist, Destination Sign Repairer, Dr. CLAUDIA Gonzalez, since 2021. He confirmed her diagnosis of Crohn's disease She has had IBD for about 10 yrs; Reports has had colonoscopies and biopsies to confirm States she was diagnosed with based on her sacroiliitis, around age 16 yrs, by a Furrier Designer Initially was being diagnosed for torn muscle, but her MRI showed active sacroiliitis Joints: SI and Lumbar States as I aged has noticed pains along ribs and mid thoracic and sometimes feels like somebodypunched me in the lungs Flares would involved LB at the SI's, would have sharp shooting pain and cannot take another stepand cannot sit right nothing Am stiffness: yes, much improved with Humira She has also received steroids before, unable to verify dosing and frequency States used to have to get out of bed at 3 am due to back stiffness Jt swelling: none Currently Denies pain Denies LB pain Am stiffness: couple minutes ; no longer waking up at 3 am When stiff, turns her heating pad for couple min, would be along T-sp and is fine Dactylitis or Enthesitis: denies PF/AT history: denies Denies history of uveitis or iritis Denies psoriasis, but had cracking and peeling in the soles , states saw Inventory Control Assistant and was notgiven diagnosis for psoriasis No reported history of EN Her mother has psoriasis Her sister has alopecia areata Reports FH of lupus Rx for IBD: prednisone methotrexate took for 6 months, no benefit, to bowels and jts Humira prescribed 40 mg sq every 2 wks, for 4 yrs Denies other biologic medications States she stopped taking Humira States takes Humira differently : states can get Humira prn and only takes them when she flares. States was getting shipment and using them prn. States would use one injection and her flare would resolve. States she understands that by taking prn can lead to immunogenicity and does not work. Her Furrier Designer left [place] States since changed her diet, has not had a severe flare up in 2 yrs States was doing shrimp and rice and salads, nuts, fruits and veggies States has since started a totally different diet and started exercising and is good. [facility] Dr. Gonzalez did not recommended biologic medications, and did not plan on prescribing Humira or other medications. She reports her CD is ok, feels has a lot of inflammation that she cannot get rid of, states does not get typical flares States uses bentyl if has spasms States her CD presents with severe pain under breast bone would land in the hospital 2 days Rarely would have bld in stools, diarrhea would be uncommon for her Gets bloating and gas and discomfort. Colonoscopy report 11/2022: Impression: - Stricture at the ileocecal valve could not be traversed. - One 4 mm polyp in the sigmoid colon, removed with a cold biopsy forceps. Resected and retrieved. - The examination was otherwise normal. - Biopsies were taken with a cold forceps for histology in the descending colon, in the transverse colon and in the ascending colon. Sheldon Abreu MD 12/03/2022 9:52:14 AM States will be having surgery on her Ileum States she is currently on a very limited diet Diet: water, 1 cup of coffee rice and chicken, carrots States cannot have anything with a peel or skin States if blended in a sweeping compound blender can have. She consumes cheese, daily, as snacks and a yogurt, high protein yogurt okeos zero sugar States told can have fruits and veggies blended She has met with dietitian and he recommended that diet and is considering Mediterranean diet afterher surgery. Stress has been a trigger for flares and reason for smoking Exercise: Goes to the gym 3-4 times a wk Has had PT in the past, states does not feel is an huge benefit She was found to have vitamin D deficiency : and was prescribed 50,000 international units capsule once a week, taking with a meal. States 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 not seen space physicist Eye Dryness: No Nose Bleeds: No Sores in your Mouth: No Trouble Swallowing: No Dry Mouth: No Chest Pain: No Leg Swelling: No A Cough: No Shortness of Breath: No Pain with Breathing: No Heartburn: No Abdominal Pain: No Diarrhea: No Black Tarry Stools: No Blood in Urine: No Pain or Burning with Urination: No Joint Pain or Stiffness: Yes - as above Muscle Weakness: No Muscle Aches: No Joint Swelling: Yes- reviewed, denies to me Morning Stiffness in Joints: Yes A Rash: No Skin Color Changes: No Hair Loss: No Nail Changes: No Headaches: No Numbness: Yes- when gets raynaud's phenomenon : reports white and bluish discoloration if fingers b/l; She smokes, discussing importance of smoking cessation; She is working on smoking cessation. 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 Per faxed records from [place] when seen 10/2019 by GI there: Diagnosed with CD in 2010 via serology. C-scope 09/2013 pathology showed granuloma in TI, minimally active chronic colitis in ICV, mildly active chronic colitis in sigmoid colon with granuloma. Treated with sulfalazine and Lialda but discontinued. Started on Humira in 2015 mainly for by Rheum at [facility], was on it for a year then stopped to assess symptoms off of it, but restarted 07/2018. Antibodies checked and negative 08/2018. Had a flare in 2018 while she was with up to 10 watery bloody BMs a day, treated with course of Prednisone 07/2019. Also had bloating for which she was prescribed flagyl and symptoms resolved.Labs [id number] provided significant for elevated CRP to 5 in 10/2017, and Fecal calpro 90 in 05/2018. Last C-scope ~2017 per pt, records unavailable, CD did not look active, however she has a stricture in the ileocolonic region, never needed dilation. Ms. Lucas is here today as her local GI is retiring, from [place], [place]. She follows with [facility], planning to move all care here. Symptoms that led to the diagnosis of CD were mainly abdominal pain. Humira is first biologic she's been on. Was on it weekly for about 4 years, has been usingit as needed for the past year. Last dose was a couple of weeks ago (06/23/2022), was stressed and fe lt CD flare symptoms therefore used it. Has no Humira injections left. Kept symptoms at bay with lifestyle changes (exercise, better diet). Hasn't needed steroids for CD flare in >1 year, hasn't been hospitalized in ~8 years. Most significant GI symptom today is bloating. She is on a prebiotic daily & uses GasX PRN, helps some. Has Bentyl prn. Most recent GI tract testing: glucose breath test (08/2022)- negative; MRe (07/2022)- active stricturing disease involving a 4 cm segment of the TI; Colonoscopy (12/03/2022) with a non- traversable (despite multiple attempts) ileocecal valve d/t intrinsic severe stenosis. IMPRESSION: STRICTURE WITH IMAGING FINDINGS OF ACTIVE INFLAMMATION INVOLVING AN APPROXIMATELY 4 CM SEGMENT OF TERMINAL ILEUM. PENETRATING DISEASE: ABSENT. BILATERAL SACROILIITIS. Precision Grinder: JHONNY Transcribe Date/Time: Aug 14 2022 3:16P Dictated by : CARLOS MANUEL DORANTES, DO This examination was interpreted and the report reviewed and electronically signed by: CARLOS MANUEL DORANTES DO on Aug 14 2022 3:46PM EST Results-Findings * * *Final Report* * * DATE OF EXAM: Aug 13 2022 8:53PM QBM [id number] - MRI ABD ENTEROG WO/W IVCON / PROCEDURE REASON: multiple diagnoses * * * * Physician Interpretation * * * * MRI OF THE ABDOMEN AND PELVIS WITHOUT AND WITH CONTRAST (MR ENTEROGRAPHY) CLINICAL HISTORY: 37 year old female with PMHx of?ankylosing spondylitis (HLA B27+), former smoker (quit in 2011),?nephrolithiasis?and inflammatory?vs stricturing?ileocolonic CD here to establish care for CD. ? Per faxed records from [place] when seen 10/2019 by GI there: Diagnosed with CD in 2010 via serology. C-scope 09/2013 pathology showed granuloma in TI, minimally active chronic colitis in ICV, mildly active chronic colitis in sigmoid colon with granuloma. Treated with sulfalazine and Lialda but discontinued. Started on Humira in 2015 mainly for by Rheum at [facility], was on it for a year then stopped to assess symptoms off of it, but restarted 07/2018. Antibodies checked and negative 08/2018. Had a flare in 2018 while she was with up to 10 watery bloody BMs a day, treated with course of Prednisone 07/2019. Also had bloating for which she was prescribed flagyl and symptoms resolved. Labs [id number] provided significant for elevated CRP to 5 in 10/2017, and Fecal calpro 90 in 05/2018.?Last C-scope 2017 per pt, records unavailable, CD did not look active, however she has a stricture in the ileocolonic region, never needed dilation. COMPARISON: None. TECHNIQUE: Magnet: 3.0 Veena Coil: Torso phased array Sequences / planes: HASTE: axial and coronal SPAIR:Axial 1 mg of intravenous glucagon was administered during the examination. T1 3-D GRE without and with iv contrast: axial and coronal Diffusion weighted imaging with ADC mapping: axial Contrast: IV: 13 ml of Dotarem Oral: 1000 ml of Breeza RESULT: GI Tract: Small bowel: Mural thickening, hyperenhancement, and mild upstream dilation involving an approximately 4 cm segment of terminal ileum extending to the ileocecal junction, consistent with stricture with component of mild active inflammation (19:41). No small bowel mural thickening or hyperenhancement otherwise. Colon and Rectum: No mural hyperenhancement or wall thickening. Strictures: 4 cm segment of terminal ileum. Fistulae/Sinus tracts: None. Abscess: None. Abdomen: Liver: Normal morphology. No suspicious lesions where visualized. Biliary: No biliary dilation. Gallbladder is unremarkable. Spleen: No mass. No splenomegaly. Pancreas: No mass or duct dilation. Adrenals: No mass. Kidneys: No suspicious lesions or hydronephrosis. Lymph nodes: No abdominal or pelvic lymphadenopathy. Mesentery / Peritoneum / Retroperitoneum: No ascites or organized collection. Vasculature: The celiac axis and SMA are patent. The portal vein and branches, splenic vein, SMV, and hepatic veins are patent. No abdominal aortic aneurysm. Pelvis: Urinary bladder is unremarkable. No organized intrapelvic collection. Minimal free fluid, likely physiologic. Bones/Soft Tissues: Signal changes suggesting bilateral sacroiliitis. INTERVAL HISTORY Switched to Dr. 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 Five points is a clinicallymeaningful difference.) 12/30/2022 03/29/2023 Physical T-Score 50.8 54.1 Mental T-Score 48.3 53.3 PROMIS CAT Pain Interference 01/18/2023 05/19/2023 PROMIS Pain Interference T-Score (range: 10 - 90) 40 (within normal limits) 60 (mild) PROMIS Pain Interference Percentile 84 % 16 % PROMIS CAT Fatigue 01/18/2023 05/19/2023 PROMIS Fatigue T-Score 62 (moderate) 60 (mild) PROMIS Fatigue Percentile 12 % 16 % PROMIS PHYSICAL FUNCTION T-SCORE 01/18/2023 05/19/2023 PROMIS Physical Function T-Score 43 (mild dysfunction) 48 (within normal limits) Physical Function Percentile 24 % 42 % PHQ-9 0 - 4: Minimal Depression 5 - 9: Mild Depression 10 - 14: Moderate Depression 15 - 19: Moderately Severe Depression 20 - 27: Severe Depression PHQ-9 01/18/2023 PHQ-2 Score 2 Objective Treatment History Relevant Previous Investigations CBC Latest Ref Rng & Units 2023 02/17/2023 03/07/2023 03/08/2023 WBC 3.70 - 11.00 k/uL 11.44(H) 6.37 5.61 3.20(L) HEMOGLOBIN 11.5 - 15.5 g/dL 11.6 10.7(L) 13.2 12.0 HEMATOCRIT 36.0 - 46.0 % 34.8(L) 33.2(L) 39.2 37.1 PLATELETS 150 - 400 k/uL 226 192 280 253 ABS NEUT (ANC) 1.45 - 7.50 k/uL 9.66(H) - 4.41 - ABS LYMPH 1.00 - 4.00 k/uL 0.85(L) - 0.39(L) - CMP Latest Ref Rng & Units 2023 02/17/2023 03/07/2023 03/08/2023 SODIUM 136 - 144 mmol/L 136 139 138 139 POTASSIUM 3.7 - 5.1 mmol/L 3.7 3.7 4.4 3.9 CHLORIDE 97 - 105 mmol/L 102 106(H) 102 105 CO2 22 - 30 mmol/L 25 26 25 24 GLUCOSE 74 - 99 mg/dL 108(H) 103(H) 89 87 BUN 7 - 21 mg/dL 14 8 8 5(L) CREATININE 0.58 - 0.96 mg/dL 0.80 0.70 0.68 0.72 CALCIUM, TOTAL 8.5 - 10.2 mg/dL 9.1 8.4(L) 9.5 8.8 AST 13 - 35 U/L - - 19 - ALT 7 - 38 U/L - - 13 - ALKALINE PHOSPHATASE 34 - 123 U/L - - 90 - CRP Latest Ref Rng & Units 02/11/2023 02/14/2023 2023 02/17/2023 CRP <0.9 mg/dL <0.3 0.5 1.5(H) 1.1(H) RF and CCP Latest Ref Rng & Units 02/11/2023 RHEUMATOID FACTOR <16 IU/mL <10 CCP ANTIBODY IGG QUALITATIVE Negative Negative CCP ANTIBODY, IGG <20 Units <15 Hepatitis Screen Latest Ref Rng & Units 07/05/2022 12/10/2022 HEPAIGG Negative Negative - HEPAIGM Negative - Negative HEPBCOTOL Negative Negative Negative HEPSABQ Positive Negative Negative(A) HEPCABEIA Negative Negative Negative HBSAG Negative Negative Negative TB Screen 07/05/2022 12/10/2022 TBGINT Infection with M. tuberculosis complex is unlikely. If latent tuberculosis infection is highly suspected, a negative result does not rule out the infection. Specimens from immunocompromised patients and those <5 years of age may show false negative results. In case of a contact investigation, please repeat 8-12 weeks after a known exposure. Infection with M. tuberculosis complex is unlikely. If latent tuberculosis infection is highly suspected, a negative result does not rule out the infection. Specimens from immunocompromised patients and those <5 years of age may show false negative results. In case of a contact investigation, please repeat 8-12 weeks after a known exposure. TBGRES Negative Negative Antibodies Latest Ref Rng & Units 02/11/2023 05/20/2023 LYLA Negative Positive(A) - LYLA TITER - >1:1280 - LYLA PATTERN - Centromere - DNA ANTIBODY W/CONFIRMATION <30 IU/mL <12 - ANTI-SM <1.0 AI <0.2 - SM ANTIBODY Negative Negative - RIBOSOMAL IRRIGATION SUPERVISOR AB <1.0 AI <0.2 - RIBOSOMAL IRRIGATION SUPERVISOR QUAL Negative Negative - CHROMATIN AB <1.0 AI <0.2 - CHROMATIN AB QUAL Negative Negative - SSA ANTIBODY QUAL Negative Negative - ANTI-SSA <1.0 AI <0.2 - ANTI-SSB <1.0 AI <0.2 - IRRIGATION SUPERVISOR ANTIBODY QUAL Negative Negative - SCL-70 AB QUAL Negative Negative - SCL-70 ABS, EIA <1.0 AI <0.2 - CENTROMERE AB <1.0 AI >8.0(H) - CENTROMERE AB QUAL Negative Positive(A) - CARMEL-1 ANTIBODY, IGG <1.0 AI <0.2 - CARMEL 1 ANTIBODY QUAL Negative Negative - BETA 2 GLYCOPROTEIN, IGM <20 SMU 38(H) 23(H) BETA 2 GLYCOPROTEIN, IGM <20 SMU 38(H) 23(H) CARDIOLIPIN AB, IGG <15.0 GPL <9.0 <9.0 CARDIOLIPIN AB, IGM <12.5 MPL 17.9(H) <9.0 CARDIOLIPIN AB, IGA <12.0 APL <9.0 <9.0 PT SEC 9.7 - 13.0 sec 9.9 9.9 PT INR 0.9 - 1.3 1.0 1.0 PTT 23.0 - 32.4 sec 28.1 27.8 PLATELET NEUT Negative Negative Negative DRVVT SCREEN 32.0 - 45.7 seconds 36.0 30.9(L) DRVVT CONFIRM RATIO <1.32 1.04 1.03 DRVVT 1 TO 1 MIX 32.0 - 45.7 seconds 36.6 33.5 HEX PHASE SCREEN 34.0 - 51.8 seconds 48.2 42.4 HEX PHASE CONFIRM 34.2 - 47.9 seconds 46.2 43.1 HEX PHASE DELTA <7.1 delta seconds 2.0 0.0 APTT SCREEN 24.0 - 35.1 seconds 33.7 30.2 THROMBIN TIME <18.6 seconds <16.8 <16.8 Urinalysis Latest Ref Rng & Units 03/07/2023 PROTEIN, URINE Trace, Negative Negative RBC, URINE 0-3 /HPF 0-3 /HPF Imaging / Studies Last XR Sacroiliac - Impression Only XR SACROILIAC JOINTS 2V AP PELVIS/FERGUESON Exam End: 01/19/2023 11:01 AM (Final result) Impression: IMPRESSION: 1. Bilateral sacroiliitis. Precision Grinder: JHONNY Transcribe Date/Time: Jan 19 2023 12:03P ... Last MRI Hip/Pelvis - Impression Only No resulted procedures found. Last CT Hip/Pelvis - Impression Only No resulted procedures found. Review of Systems Review of Systems CONSTITUTION: Negative for: Fever and Recent weight change HEENT: Negative for: Nosebleeds, Mouth sores, Trouble swallowing and Dry mouth RESPIRATORY: Negative for: Cough, Shortness of breath and Pain with breathing GASTROINTESTINAL: Negative for: Melena, Diarrhea, Heartburn and Abdominal pain MUSCULOSKELETAL: Positive for: Arthralgias and Morning Joint Stiffness Negative for: Myalgias, Muscle weakness and Joint swelling NEUROLOGICAL: Negative for: Headaches, Numbness and Memory loss SKIN: Positive for: Hair loss Negative for: Rash, Skin changes and Nail changes EYES: Negative for: Eye pain, Eye redness, Eye dryness and visual disturbance CARDIOVASCULAR: Negative for: Chest pain and Leg swelling GENITOURINARY: Negative for: Dysuria and Hematuria HEMATOLOGIC/LYMPHATIC: Negative for: Swollen glands All other reviewed and negative other than HPI. Problem List ACTIVE PROBLEM LIST S/P Small Bowel Resection Nicotine use disorder, F17.2 Ankylosing Spondylitis (Hcc) Crohn's Disease (Hcc) Postoperative Pain Uti (Urinary Tract Infection) Past Medical History PAST MEDICAL HISTORY Diagnosis Date Crohn's disease (HCC) Raynaud's syndrome Past Surgical History PAST SURGICAL HISTORY Procedure Laterality Date PAST SURGICAL HISTORY OF 2 C sections 2008, 2011 Family History History reviewed. No pertinent family history. Social History Social History Tobacco Use Smoking status: Every Day Packs/day: 0.50 Types: Cigarettes Smokeless tobacco: Never Substance Use Topics Alcohol use: Yes Comment: Twice a week Drug use: Never Medications Current Outpatient Medications Medication Sig adalimumab (HUMIRA,CF, PEN UWVZST-HG-LH) 80 mg/0.8 mL pen kit Inject 160 mg (2 pens) subcutaneouslyon day 1, then inject 80 mg (1 pen)subcutaneously on day 15 followed by 40 mg (1 pen) on day29 and every 2 weeks thereafter. iv contrast (will be provided with radiology test) MRI Female Pelvis Inject, intravenously, once for 1 dose. No IV access, insert saline lock prior to the beginning of sedation, infusion, injection of imaging exam. Discontinue saline lock post exam. If Pt has a central line or IVAD, may access for administration according to line specific nursing protocol. Once exam is complete flush line and de-access according to line specific nursing protocol in the MR contrast administration guidelines link. Surgical Lubricant Jelly gel For MRI Female Pelvis, MRI department to provide. Administer intra-vaginal Surgilube immediately prior the MRI procedure (total amount to patient toleranace). norethindrone (AYGESTIN) 5 mg tablet Take 1 tablet by mouth once daily. lidocaine (LIDODERM) 5 % Apply 1 Patch as directed every 24 hours. adalimumab 40 mg/0.4 mL subcutaneous pen kit (HUMIRA (CF)) Inject 40 mg (1 pen) subcutaneously every 2 weeks. No current facility-administered medications for this visit. Physical Exam BP 106/64 Pulse 80 Wt 136 lb (61.7kg) LMP 04/28/2023 Physical Exam Vitals reviewed. Constitutional: General: She is not in acute distress. Comments: WD/WN, NAD. Appropriate grooming. HENT: Head: Normocephalic and atraumatic. Comments: No patchy alopecia, normal temporal artery pulsations, non-tender, scalp non-tender, no conjunctival injection or icterus, no oral ulcers, no thrush, no nasal bridge collapse, no cartilage swelling, no parotid gland swelling. Cardiovascular: Rate and Rhythm: Normal rate and regular rhythm. Pulses: Normal pulses. Heart sounds: No murmur heard. No friction rub. No gallop. Pulmonary: Effort: Pulmonary effort is normal. No respiratory distress. Breath sounds: Normal breath sounds. No stridor. No wheezing, rhonchi or rales. Comments: CTA, Good respiratory effort. Abdominal: Palpations: Abdomen is soft. Tenderness: There is no abdominal tenderness. Musculoskeletal: Cervical back: Neck supple. No tenderness. Comments: No significant joint deformities, no rheumatoid nodules, calcifications or tophi. No SI tenderness, no basil's tenderness, no heel/plantar tenderness, lumbar flexion full; Borderline abnormal Emanuel's test. Finger to floor 10 cm Swoll JTS: 0 Tend. JTS: 0 No clinical synovitis in the DIP's, PIP's, MCP's, wrists, elbows, shoulders, knees, ankles, midfoot, or toes. No knee effusions bilateral. Shoulder exam: FROM without pain or impingement Hip rom without pain LIMITATION of Motion of Joints: mild SI's Thoracic/Lumbar Spine: No percussion tenderness SLR: negative b/l, modified No instability in any upper or lower extremity joints. Lymphadenopathy: Cervical: No cervical adenopathy. Skin: Capillary Refill: Capillary refill takes less than 2 seconds. No raynaud's phenomenon on exam Nailfold capillaroscopy performed on January 19, 2023 of left 3rd finger: no dilated capillary loops, no dropped loops, no hemorrhages. Comments: No rash, no psoriasis, no purpura, no ulcers, no skin thickening/tightness, no circular telangiectasias. No clubbing,discoloration,sclerodactyly, periungual erythema, digital ulcers, nail pitting, edema. Neurological: General: No focal deficit present. Mental Status: She is alert and oriented to person, place, and time. Sensory: No sensory deficit. Motor: No weakness. Gait: Gait normal. Psychiatric: Mood and Affect: Mood normal. Behavior: Behavior normal. There is currently no information documented on the homunculus. Go to the Rheumatology activity andcomplete the homunculus joint exam. Joint Exam 05/19/2023 No joint exam has been documented for this visit Joint Exam Data (across time) documented in this encounter[facility]06-[facility]-2023 Miscellaneous Notes* Telephone Encounter - Eren Willard RPh - 05/17/2023 4:43 PM EDT Prior authorization for pended medication(s) has been approved; however, due to insurance restrictions Rx must be filled at [facility] ([phone]) [facility]. Pended Orders ID Status Description Pended By When Reason [id number] Pended adalimumab (HUMIRA,CF, PEN ADHTOM-LG-OP) 80 mg/0.8 mL pen kit Eren Willard [facility] 05/17/23 1642011 [id number] Pended adalimumab 40 mg/0.4 mL subcutaneous pen kit (HUMIRA (CF))- EVERY 2 WEEKS Eren Willard RPh 05/17/23 1646 If refill request approved, eRx will be sent to above Specialty Pharmacy for processing. Thank you. Eren Willard, PharmD Clinical Pharmacist, Biologics, Neurology, and Hepatology [facility] ; Pool: P [facility] Pool #: [id number] documented in this encounterOhio Valley [facility]06-16-2023 [facility] History of Present illness Narrative* Roro Bass - 05/13/2023 7:27 AM EDT [facility] received prescription(s) for Humira from Dr. Israel's office. Benefits investigation was conducted, indicating that a prior authorization is required by patient'sinsurance plan with [employer]. Encounter will be updated once prior authorization has been submitted by [facility]. Roro Kali, disassembler product, Inflammatory/Allergy [facility] [phone] documented in this encounterOhio Valley [facility] Hospital06-14-2023 Miscellaneous Notes* Telephone Encounter - Ankita Hamilton - 05/11/2023 11:58 AM EDT Last Visit 05/10/2023: PLAN - We discussed re-starting Humira for post-op prophlyaxis, given her active smoking which puts her at higher risk for recurrence and flaring. Start with standard induction and maintenance dosing for CD - Proactive TDM, check Humira trough level prior to first maintenance dose, to r/o antibody formation - Fecal calpro now - IBD labs q3 months - Colonoscopy in 3 months - Referral to tag clerk to discuss Mediterranean diet, and Dr. Bonilla for smoking cessation - RTC in 1 month with DIOGO Haq virtually Order must go through Specialty pharmacy. Induction & maintenance orders pended to Dr. Brown for review / signature. Ankita Cleveland Coord May 11, 2023 11:59 AM * Telephone Encounter - Ankita Cleveland Coord - 05/11/2023 11:57 AM EDT ----- Message from Jennifer Flores MD sent at 05/10/2023 12:08 PM EDT ----- Kashif Luciano I ordered Humira induction dose for Ms. Lucas. Can you follow up with her for standard maintenance dosing q2 weeks? Thanks! Jennifer documented in this encounterOhio Valley [facility] Hospital06-13-2023 [facility] History of Present illness Narrative* Pedro Israel PA-C - 03/29/2023 4:40 PM EDT Virtual Follow Up Visit Provider [facility] Patient Location: Patient Home or Place of Residence ASHVIN Lucas [id number] has requested a video telemedicine for follow up of Crohn'sdisease. Last seen 12/10/2022 by Roro Cain CNP. IBD History (copied and updated from prior notes) Ms. Lucas, is a 38-year-old female with history of ankylosing spondylitis as well as Crohn's disease diagnosed in 2010. She was started on Humira for both the spondylitis and Crohn's and has been taking it as needed despite education by her local prescriber. She developed worsening symptoms and was found to have a stricture and underwent a ileocolic resection with Kono S anastomosis in January [address] Shaffer. Changes and test results since last visit: Doing well since surgery 02/14/2023 ICR with Joseo S. Currently 4 BMs daily no blood. Now back to work. Slowly advancing diet is scared to eat. Was on ADA in the past for both Crohns and ADA was doing it as needed Previously on Mesalamine and SSZ Current Clinical Symptoms # of bowel movements daily: 4 Consistency: loose Bloody bowel movements: no Urgency: no Abdominal pain: no Abdominal distention: no Nausea/vomiting: no Weight loss over last 3 months: no Diagnosis Crohn's Disease: Date of diagnosis (year): 2010 Phenotype Location affected: ileum Behavior: inflammatory fibrostenotic Perianal disease: no Prior Medications/Dates/Reason for Switch Surgery: Ileocolic resection with Kono S anastomosis 01/2023 Systemic steroids last year: No Enteric or rectal steroids last year: No Systemic 5-ASA: No Local 5-ASA: No Thiopurines: No Methotrexate: No Biologics: adalimumab, disease progression Small molecules: No Current Medications None Labs TB Status: Negative 11/2022 Hepatitis B Status: Negative 11/2022 TPMT: Unknown There is no immunization history on file for this patient. Current Outpatient Medications Medication Sig Dispense Refill lidocaine (LIDODERM) 5 % Apply 1 Patch as directed every 24 hours. ciprofloxacin HCl (CIPRO) 500 mg tablet Take 500 mg by mouth twice daily. cholecalciferol (VITAMIN D3) 1,000 unit tab tablet Take 2 tablets by mouth once daily. (Patient nottaking: Reported on 03/08/2023) 180 tablet 1 acetaminophen (TYLENOL) 500 mg tablet Take 2 tablets by mouth every 8 hours as needed for pain. nicotine (NICODERM) 7 mg/24 hr Apply 1 Patch as directed every 24 hours. (Patient not taking: Reported on 03/08/2023) 14 Patch 1 No current facility-administered medications for this visit. ALLERGIES Allergen Reactions Morphine Other: See Comments PAST SURGICAL HISTORY Procedure Laterality Date PAST SURGICAL HISTORY OF 2 C sections 2008, 2011 Review of Systems: GENERAL:No weight loss, malaise or fevers HEENT:Negative for frequent or significant headaches, No changes in hearing or vision, no nose bleeds or other nasal problems NECK:Negative for lumps, goiter, pain and significant neck swelling RESPIRATORY: Negative for cough, hemoptysis, wheezing, COPD, dyspnea or shortness of breath CARDIOVASCULAR: Negative for chest pain, leg swelling, hypertension, CHF or palpitations GASTROINTESTINAL: See HPI GENITOURINARY: No history of dysuria, frequency or incontinence ORGANIZATIONAL CONSULTANT: Negative for abnormal vaginal bleeding, abnormal vaginal discharge MUSCULOSKELETAL: Negative for joint pain or swelling, back pain or muscle pain NEUROLOGIC:Negative for focal numbness or weakness, headaches and dizziness or syncope. SKIN:Negative for lesions, rash, and itching PSYCHIATRIC: Negative for sleep disturbance, mood disorder and recent psychosocial stressors. HEMATOLOGIC/LYMPHATIC/IMMUNOLOGIC:Negative for prolonged bleeding, bruising easily or swollen nodes ENDOCRINE: Negative for cold or heat intolerance, polyuria, polydipsia and goiter The remainder of the ROS was negative. PHYSICAL EXAMINATION General: alert and appropriate, in no distress and well-hydrated, well nourished , Head: normocephalic, no abnormality or lesion noted, Eyes: visual acuity is grossly normal, no injection,, and EOMI, Oropharynx: moist mucus membranes, no tonsillar hypertrophy/exudate, uvula midline and pharynx non-erythematous, lips, teeth and gums are without obvious lesion, Neck: full ROM, no cervical LNs noted, Respiratory: breathing non-labored, and no grunting/flaring/retractions, Chest: equal chest rise with normal respiratory effort, Abdomen: flat appearing. Visible protrusions or hernias: No Incisions/scars: None Areas of pain/tenderness: Denies Skin: no rash noted, Neuro: Patient seen sitting with normal appearing strength and coordination. No focal motor deficits. Psych: Appropriate mood and interaction Most recent labs: CBC: WBC (k/uL) Date Value 03/08/2023 3.20 (L) Hematocrit (%) Date Value 03/08/2023 37.1 MCV (fL) Date Value 03/08/2023 91.6 Platelet Count (k/uL) Date Value 03/08/2023 253 Lymphocytes % (%) Date Value 03/07/2023 7.0 Hepatic Function Panel: Albumin (g/dL) Date Value 03/07/2023 4.5 Bilirubin, Total (mg/dL) Date Value 03/07/2023 0.2 Alkaline Phosphatase (U/L) Date Value 03/07/2023 90 AST (U/L) Date Value 03/07/2023 19 ALT (U/L) Date Value 03/07/2023 13 Protein, Total (g/dL) Date Value 03/07/2023 7.6 CRP: CRP Date Value Ref Range Status 02/17/2023 1.1 (H) <0.9 mg/dL Final No results found for: QTBGOLD No results found for: HRINTP No results found for: TBTEST No results found for: PTMPT No results found for: FOLATE Vitamin B12 Date Value Ref Range Status 12/10/2022 405 232 - 1,245 pg/mL Final Iron Date Value Ref Range Status 12/10/2022 53 41 - 186 ug/dL Final TIBC Date Value Ref Range Status 12/10/2022 338 232 - 386 ug/dL Final Vitamin D 25 Hydroxy Date Value Ref Range Status 02/11/2023 54.3 31.0 - 80.0 ng/mL Final Last Endoscopy: Colonoscopy 12/03/2022 Impression: - Stricture at the ileocecal valve could not be traversed. - One 4 mm polyp in the sigmoid colon, removed with a cold biopsy forceps. Resected and retrieved. - The examination was otherwise normal. - Biopsies were taken with a cold forceps for histology in the descending colon, in the transverse colon and in the ascending colon. Pathology FINAL DIAGNOSIS A. Sigmoid colon polyp, biopsy: - Colonic mucosa with minimal hyperplastic changes, negative for dysplasia. B. Random colon, biopsy: - Colonic mucosa with no diagnostic abnormality. Last Imaging: CT ABD/Pel 03/07/2023 IMPRESSION: Postoperative changes with no acute process in the abdomen or pelvis. MRE 08/13/2022 IMPRESSION: STRICTURE WITH IMAGING FINDINGS OF ACTIVE INFLAMMATION INVOLVING AN APPROXIMATELY 4 CM SEGMENT OF TERMINAL ILEUM. PENETRATING DISEASE: ABSENT. BILATERAL SACROILIITIS. Assessment IMPRESSION (as copied and updated from my / note and reflects medical decision making today): 38-year-old female with history of ankylosing spondylitis as well as Crohn's disease diagnosed in 2010. She was treated in the past with mesalamine as well as sulfasalazine and then she was started on Humira for both the spondylitis and Crohn's and has been taking it as needed despite education by her local prescriber. She developed worsening symptoms and was found to have a stricture and underwent a ileocolic resection with Kono S anastomosis in January [address] Shaffer. She presents today as a post operative follow-up to establish care with Dr. Brown. Overall feeling well 4 bowel movements a day loose in nature. No blood no urgency. She is scared to eat but is slowly advancing diet overall feeling very well. A long discussion about further treatment options due toher ankylosing spondylitis. She is followed with rheumatology and will likely need to be in touch with them. Options would include infliximab but she is not thrilled with the option of infusions I amalso concerned as she says she has reactions to many different medications and this may cause problems. I will discuss with Dr. Brown but the [place] 23 blockers such as Skyrizi or Stelara do not seem to be effective in ankylosing spondylitis and therefore would not be the best option for her going forward. Another option would be to watch with close follow-up and discuss starting medication only if there are signs of recurrence on labs and endoscopically. PLAN I will discuss with Dr. Brown Options include infliximab or monitoring off medication with follow-up fecal Alexandr in 3 months and scope in 6 months and can start medication if any sign of recurrence I will 23 blockers such as Stelara or Skyrizi would not be the best option as they do not really help with enclosing spondylitis Likely will need input from rheumatology as well She was taking adalimumab as needed this may be an option with close monitoring going forward I spent 20 minutes in the virtual visit, with more than 50% of the total [id number] time of the visit in counseling / coordination of care. I have confirmed and edited as necessary, the PFSH and ROS obtained by others. I will communicate my recommendations and prescriptions to the patient's primary care provider. Unrelated to E/M, telemedicine, or virtual visit service provided within previous 7 days. No E/M service or procedure anticipated within next 24 hours. I have communicated my name and active licensure. The patient's identity and physical location wereverified at the time of this visit. Either the patient or their legal herbicide service sales representative has been informed of the risks and benefits of -- and alternatives to -- treatment through a remote evaluation andconsents to proceed with the evaluation remotely. Pedro Israel PA-C March 29, 2023 4:41 PM documented in this encounterOhio Valley Surgical Hospital04-27-2023 Note[facility] [place] History of Present illness Narrative* Hilary Shaffer MD - 03/24/2023 4:00 PM EDT Images from the original note were not included. COLORECTAL SURGERY VIRTUAL VISIT FOLLOW UP I have communicated my name and active licensure. The patient's identity and physical location wereverified at the time of this visit. Either the patient or their legal herbicide service sales representative has been informed of the risks and benefits of -- and alternatives to -- treatment through a remote evaluation andconsents to proceed with the evaluation remotely. Jocelyne Lucas returns for a post-operative visit after undergoing Laparoscopic ileocolic resection with Kono S reconstruction, on 02/14/23. She had She is moving bowels 1-2 times per day Good control of stool, though some urgency She is still on a soft diet Had a UTI and COVID March 07, 2023 - no longer with symptoms 02/14/23 Dr. Shaffer Laparoscopic ileocolic resection with Kono S reconstruction TAP block Findings: Crohn's disease of the terminal ileum, short stricture at ileocecal valve, remaining of the bowel appears healthy Laparoscopic ileocecal resection, Kono-S anastomosis TAP block, revision of midline scar *Surgical Pathology* A. Ileum, colon, and appendix, resection: -Segment of ileum and colon with chronic active enteritis, ulcer, stricture, non-necrotizing granuloma, and transmural inflammation; compatible with the patient's history of Crohn disease. -Negative for dysplasia. -Endometriosis involving serosa. -The surgical resection margins are negative for neutrophilic inflammation. -Five lymph nodes with no diagnostic abnormalities. -Appendix with no diagnostic abnormalities. COMMENT Special stains for AFB and GMS were performed on parts A1 and A3 and were not contributory as granuloma disappeared on deeper sections. A benign gland associated with stroma is identified on the serosa on part A5. The gland shows diffuse positive staining for PAX8 and ER and the stromal cells show diffuse positive staining for ER. These immunohistochemical staining results support the diagnosis of endometriosis. C/B post op UTI and covid History of Present Illness: Jocelyne Lucas is a 38 year old year old female with a history of Crohn's disease, diagnosed in 2010. Notes mucous and blood in her stool around [id number]. Started on Humira after that time. Had remission during in 2011 Started on Humira in 2016 with significant improvement in symptoms Recently transferred her care from [facility]. Had repeat staging during this process and found to have significant ileal stricture Every 6 months or so she has obstructive symptoms. She reports she has recently developed some lower abdominal pain with intermittent nausea and abdominal distention. She is exercising and has improved her diet Also with history of ankylosing spondylitis She uses her Humira PRN - takes the injection when she has symptoms. Most recent injection was 2021 Seems to use around once every 4 months or so Notes a history of an anal fissure around 2009 near the time her son was born. No other perianal disease or operation 03/07/23 CT A/P Postoperative changes with no acute process in the abdomen or pelvis. 12/03/22 Colonoscopy - Stricture at the ileocecal valve could not be traversed. - One 4 mm polyp in the sigmoid colon, removed with a cold biopsy forceps. Resected and retrieved. - The examination was otherwise normal. - Biopsies were taken with a cold forceps for histology in the descending colon, in the transverse colon and in the ascending colon. *Pathology* A. Sigmoid colon polyp, biopsy: - Colonic mucosa with minimal hyperplastic changes, negative for dysplasia. B. Random colon, biopsy: - Colonic mucosa with no diagnostic abnormality. 08/13/22 MRe ABD/PEL STRICTURE WITH IMAGING FINDINGS OF ACTIVE INFLAMMATION INVOLVING AN APPROXIMATELY 4 CM SEGMENT OF TERMINAL ILEUM. PENETRATING DISEASE: ABSENT. BILATERAL SACROILIITIS. 05/03/17 Small bowel series- [place]: [place] Current Outpatient Medications Medication Sig Dispense Refill lidocaine (LIDODERM) 5 % Apply 1 Patch as directed every 24 hours. ciprofloxacin HCl (CIPRO) 500 mg tablet Take 500 mg by mouth twice daily. cholecalciferol (VITAMIN D3) 1,000 unit tab tablet Take 2 tablets by mouth once daily. (Patient nottaking: Reported on 03/08/2023) 180 tablet 1 acetaminophen (TYLENOL) 500 mg tablet Take 2 tablets by mouth every 8 hours as needed for pain. nicotine (NICODERM) 7 mg/24 hr Apply 1 Patch as directed every 24 hours. (Patient not taking: Reported on 03/08/2023) 14 Patch 1 No current facility-administered medications for this visit. ALLERGIES Allergen Reactions Morphine Other: See Comments Assessment Assessment: Jocleyne Lucas is a 38 year old female who is 5 weeks status post laparoscopic ileocolic resection with Kono S reconstruction for ileocolic Crohn's Plan Plan: Doing well - ok to liberalize diet and activity OK to resume Crohn's medications - will facilitate GI follow up. She is agreeable to no longer using Humira PRN She would like to see someone from [facility] regarding her endometriosis diagnosis - will facilitate Follow up with me as needed Hilary Shaffer MD documented in this encounterOhio Valley Surgical Hospital04-11-2023 Note[facility] [place] Note[facility] [place]-11-20[facility] Note[facility] [place]04-10-20[facility] Note[facility] [place]04-10-2023 NoteHNO ID: [id number] Author: RT Helena(R) Service: ? Author Type: Technologist Type: Progress Notes Filed: 03/07/2023 5:42 PM Note Text: xray: [facility]04-10-2023 Miscellaneous Notes* Telephone Encounter - Cara Tovar RN - 03/07/2023 1:09 PM EDT SPECIALTY CARE COORDINATION FOLLOW-UP NOTE Pt had previously called in regarding RLQ pain- reviewed with Dr. Shaffer at that time- possible endometriosis- to watch and wait Pt calling in to state she has notice some fluid like pockets around the periumbilical lap site andsome drainage starting yesterday is when she noticed it. Drainage is white/milky, pus like with green tint Pt states she took tylenol because she felt like she had a cold coming on 2 hours later took temp that read 101 Pt to present to ER for evaluation and treatment with pus like discharge from abdominal lap site accompanied by 101 fever 2 hours post tylenol consumption. Positive fever after treatment. Pt states understanding and prefers to present to [facility] ED- no further questions or concerns Signature Cara Tovar RN March 07, 2023 documented in this encounterOhio Valley Surgical Hospital04-07-2023 NotePROCEDURE: XR ANKLE LT MIN 3 V HISTORY: Arthralgia of the ankle and/or foot COMPARISON: None. FINDINGS: BONES:No fracture, acute abnormality, or significant arthropathy. SOFT TISSUES:No visible soft tissue swelling. EFFUSION:None visible. OTHER: Negative. IMPRESSION: 1. Normal examination. Electronically authenticated by: SUSAN DE LA FUENTE Date: 2023-03-04 15:58[facility]04-05-2023 Miscellaneous Notes* Telephone Encounter - Hilary Shaffer MD - 03/02/2023 5:20 PM EDT I spoke with pt who reports she is having right lower quadrant abdominal pain only at night between3 and 6 AM. Resolves on its own. Discussed pathology findings including endometriosis. Notes she was advised of this some years ago.She will follow up with her [facility] [facility]. Also reviewed EKG findings Hilary Shaffer MD documented in this encounterOhio Valley Surgical Hospital04-04-2023 Miscellaneous Notes* Telephone Encounter - Cara Tovar RN - 03/01/2023 12:08 PM EDT SPECIALTY CARE COORDINATION FOLLOW-UP NOTE Pt states she weaned herself off of narcotics about 5-6 days ago. She is having complications with pain: sharp, stabbing, shooting RLQ abd pain that happens between 3-6 am every night, states nothing really relieves the pain- she will sit upright in a position until pain passes unable to lay down flat the more she lays back the worse it hurts, states sometimes going to the bathroom makes it better but sometimes it makes it worse, no complications with output. No further s/sx of complications other than pain and some slight abdominal bloating/swelling Pain is not close or associated to lap sites- pt updated steri strips will fall off on their own inthe shower Pt requesting pathology results- to have Dr. Shaffer review Signature Cara Tovar RN March 01, 2023 * Telephone Encounter - Cara Tovar RN - 03/01/2023 12:08 PM EDT ----- Message from Nilam Oates sent at 03/01/2023 9:57 AM EDT ----- Contact: See Lexdir message, plus has a few other questions. Prefers a call back documented in this encounterOhio Valley Surgical Hospital03-29-2023 Miscellaneous Notes* Telephone Encounter - Landy Souza RN - 02/23/2023 10:29 AM EDT PATIENT INFORMATION Record ID: [id number] [facility]: [facility] [place]: [facility] [place] Attending: Hilary Shaffer Center: Colorectal Surgery INSTRUCTIONS SN to remind patient of appointment date, time, location All Clear Ask follow question #4b on NOC section of survey. All Clear All Clear SURVEY INFORMATION Medical/Nurse Screen Stretcher: Landy Souza 1. Your discharge instructions are important in guiding you through the recovery process. Is there anything I could help you clarify on your discharge instructions? (Standard Question) No 2. Do you have a follow up appointment related to your hospital stay scheduled within the next 30 days? (Standard Question) Yes 3. Are you vomiting after eating or drinking? (Red Flag Question) No 4. Do you have a stoma? Yes 5. Are you having any difficulty passing urine? (Red Flag Question) No 6. Do you have any of the following new symptoms related to your wound? Creamy white or foul smelling drainage Increasing redness or swelling, Increasing pain;? (Red Flag Question) No 7. Many patients have concerns about their medications once they are home. Do you have any questions about getting or taking your medications? (Standard Question) No 8. Do you have any new or different symptoms? (Standard Question) No documented in this encounterOhio Valley Surgical Hospital03-22-2023 Note[facility] [place]03-21-20[facility] Note[facility] [place]03-20-2023 Note[facility] [place]03-17-2023 Note[facility] [place]03-17-2023 History and physical note* Shelby Garcia PA-C - 02/11/2023 2:00 PM EDT COLORECTAL SURGERY Pre-OP February 11, 2023 Jocelyne Lance 37 year old Chief Complaint: preoperative exam History of Present Illness: Pt presents today for a preop visit to have laparoscopic ileocolic resection, possible open, revision of periumbilical scar with Dr. Shaffer on 02/17/23. Cardiac hx: no Pulmonary hx: no Recent Illness: no, sinus infection recently- just finished antibiotics Anesthesia hx of issues and/family hx: NO DVT/blood clots hx of: NO Blood thinners: NO History of Seizure/ stroke: no Daily Meds: YES , Just Vitamin D Recent fevers/chills: no PAST MEDICAL HISTORY Diagnosis Date Crohn's disease (HCC) Raynaud's syndrome PAST SURGICAL HISTORY Procedure Laterality Date PAST SURGICAL HISTORY OF 2 C sections 2008, 2011 Current Outpatient Medications Medication Sig Dispense Refill nicotine (NICODERM) 7 mg/24 hr Apply 1 Patch as directed every 24 hours. 14 Patch 1 cholecalciferol, Vitamin D3, (VITAMIN D3) 1,250 mcg (50,000 unit) cap capsule Take 1 capsule by mouth one time a week. 4 capsule 2 No current facility-administered medications for this visit. ALLERGIES Allergen Reactions Morphine Other: See Comments No family history on file. Social History Tobacco Use Smoking status: Every Day Types: Cigarettes Smokeless tobacco: Never Substance Use Topics Alcohol use: Yes Review of Systems / PACC screen: Do you have difficulty climbing a full flight of stairs without feeling short of breath? no Do you require oxygen for your breathing or have your gone to an emergency department because of breathing problems?no Are you on dialysis or have you been told that your kidneys do not work well as they should? no Do have an implanted cardiac device (pacemaker, defibrillator etc.) that has not been checked in the last 6 months? no Have you had an organ transplant? no Have you been told that you had excessive bleeding during surgical procedures or do you take blood thinning medications other than aspirin? no Have you ever had a heart attack, heart stents/surgery, valve problems, or other heart problems? no Have you had a stroke, seizures, or unexplained loss of consciousness? no Do you have a neurologic condition like Parkinson's disease or multiple sclerosis? no Have you or a blood relative had a life-threatening reaction to anesthesia? no Do you have cirrhosis of the liver or other liver disease? no Have you had a blood clot within the past year? no Do you take insulin or other injections for diabetes? no Do you have sleep apnea or have you been told you may have sleep apnea? no Do you have other implanted devices (deep brain stimulator, spinal cord stimulator, etc.)? no Physical Exam: BP 111/70 Pulse 89 Temp 37 C (98.6 F) Resp 16 Ht 160 cm (5' 3 ) Wt 64.4 kg (142 lb) LMP01/31/2023 (Approximate) SpO2 98% BMI 25.15 kg/m General Appearance: Well appearing, alert, in no acute distress, well-hydrated, well nourished. Psych: ORIENTATION: normal to time place, person and situation AFFECT AND MOOD: Normal Skin: Skin color, texture, turgor normal, no suspicious rashes or lesions Head: Normocephalic, no masses, lesions, tenderness or abnormalities Oropharynx: Lips, mucosa, and tongue normal, teeth and gums normal, oropharynx normal Lungs: Lungs clear to auscultation. No wheezing, rhonchi, rales. Heart: RRR without murmur, gallop, or rubs. No ectopy Edema: no Extremities: No deformities, edema, skin discoloration, clubbing or cyanosis. Good capillary refill. Musculoskeletal: GAIT: Normal ASSIST DEVICE: None Abdomen: Normal abdominal exam, Abdomen soft, non-tender. Bowel sounds normal. No masses, organomegaly Diagnostic tests reviewed for today's visit: none All outside imaging and records were reviewed with the patient during consultation. Assessment Assessment and Plan: Impression and Plan Pt presents today for preop visit for planned surgery as stated in HPI. No conditions present warranting additional consultation or workup including but not limited to no hx of PE/DVT, reaction to anesthesia, family hx of reaction to anesthesia, cardiopulmonary disease, hx of difficult intubation; no current complaints of chest pain, SOB, or other emergent complaints. Consent: previously Obtained within the last 6 months by surgeon Medications on day of surgery: Reviewed Labs: ordered and are pending Yadira Hess RN performed nursing education for the patient. Specific education is deferred to the surgeon's office. See the care coordination notes. Shelby Garcia PA-C Department of Colorectal Surgery documented in this encounterOhio Valley Surgical Hospital03-17-2023 History of Present illness Narrative* Yadira Cortez RN - 02/11/2023 1:56 PM EDT AMBULATORY PATIENT EDUCATION NOTE READINESS TO LEARN COGNITIVE ABILITY: Alert and oriented MOTIVATION TO LEARN: Eager FAMILY SUPPORT: Friend/family present INSTRUCTION PROVIDED TO: Patient PATIENT LEARNS BEST BY: Written Instruction - Hand-outs Verbal Instruction FACTORS AFFECTING LEARNING: None PHYSICAL LIMITATIONS AFFECTING LEARNING: None LEARNING RESPONSE DIAGNOSIS: Crohn's disease TEACHING POINTS: Procedure / Surgery: Pre-op Teaching: Logistics / Protocols / Complication Prevention METHOD OF INSTRUCTION: Written instruction - handouts Verbal instruction PATIENT / FAMILY RESPONSE: Verbalizes understanding of: pre op check list, map/directions, clear liquid diet, bowel prep, antibiotics and Hibiclens wash. FOLLOW-UP PLAN: Patient instructed to call with any further issues Electronically Signed By Yadira Cortez RN in Department: COLORECTAL SURGERY documented in this encounterOhio Valley Surgical Hospital03-07-2023 Miscellaneous Notes* Telephone Encounter - Cara Tovar RN - 02/01/2023 1:50 PM EST SPECIALTY CARE COORDINATION FOLLOW-UP NOTE Call received- Pt agreeable to moving sx to 02/14/23- to leave pre-operative appts on 02/11 as is No further questions or concerns at this time- pt has call back number Signature Cara Tovar RN February 01, 2023 documented in this encounterOhio Valley Surgical Hospital03-07-2023 Miscellaneous Notes* Telephone Encounter - Cara Tovar RN - 02/01/2023 12:10 PM EST SPECIALTY CARE COORDINATION FOLLOW-UP NOTE VML Calling in regards to upcoming surgery, just had a last minute cancellation and was wondering if she would be amenable to moving her surgical date sooner. Pt to call in to discuss- number left. Signature Cara Tovar RN February 01, 2023 documented in this encounterOhio Valley Surgical Hospital03-02-2023 History and physical note * Hilary Shaffer MD - 01/27/2023 1:40 PM EST Images from the original note were not included. COLORECTAL SURGERY Consultation January 25, 2023 Jocelyne Lucas 37 year old This consult was requested by Dr. Cain and my final recommendations will be communicated to the requesting health care provider by way of the shared medical record for internal providers or letter via the [employer] for external providers. Chief Complaint: Crohn's disease of small and large intestines with complication History of Present Illness: Jocelyne Lucas is a 37 year old year old female with a history of Crohn's disease, diagnosed in 2010. Notes mucous and blood in her stool around [id number]. Started on Humira after that time. Had remission during in 2011 Started on Humira in 2016 with significant improvement in symptoms Recently transferred her care from [facility]. Had repeat staging during this process and found to have significant ileal stricture Every 6 months or so she has obstructive symptoms. She reports she has recently developed some lower abdominal pain with intermittent nausea and abdominal distention. Also with history of ankylosing spondylitis She uses her Humira PRN - takes the injection when she has symptoms. Most recent injection was 2021 Seems to use around once every 4 months or so No longer having mucous and blood in stool She is exercising and has improved her diet Moves bowels daily Good control of stool and flatus Weight is down 7 pounds over the last month or so - significant diet changes - eating soft, low fiber foods Energy level is good Notes a history of an anal fissure around 2009 near the time her son was born. No other perianal disease or operation 12/03/22 Colonoscopy - Stricture at the ileocecal valve could not be traversed. - One 4 mm polyp in the sigmoid colon, removed with a cold biopsy forceps. Resected and retrieved. - The examination was otherwise normal. - Biopsies were taken with a cold forceps for histology in the descending colon, in the transverse colon and in the ascending colon. *Pathology* A. Sigmoid colon polyp, biopsy: - Colonic mucosa with minimal hyperplastic changes, negative for dysplasia. B. Random colon, biopsy: - Colonic mucosa with no diagnostic abnormality. 08/13/22 MRe ABD/PEL STRICTURE WITH IMAGING FINDINGS OF ACTIVE INFLAMMATION INVOLVING AN APPROXIMATELY 4 CM SEGMENT OF TERMINAL ILEUM. PENETRATING DISEASE: ABSENT. BILATERAL SACROILIITIS. 05/03/17 Small bowel series- [place]: [place] PAST MEDICAL HISTORY Diagnosis Date Crohn's disease (HCC) Raynaud's syndrome PAST SURGICAL HISTORY Procedure Laterality Date PAST SURGICAL HISTORY OF 2 C sections 2008, 2011 Current Outpatient Medications Medication Sig Dispense Refill nicotine (NICODERM) 7 mg/24 hr Apply 1 Patch as directed every 24 hours. 14 Patch 1 cholecalciferol, Vitamin D3, (VITAMIN D3) 1,250 mcg (50,000 unit) cap capsule Take 1 capsule by mouth one time a week. 4 capsule 2 No current facility-administered medications for this visit. ALLERGIES Allergen Reactions Morphine Other: See Comments History reviewed. No pertinent family history. Social History Tobacco Use Smoking status: Every Day Types: Cigarettes Smokeless tobacco: Never Substance Use Topics Alcohol use: Yes Review of Systems / PACC screen: Do you have difficulty climbing a full flight of stairs without feeling short of breath? no Do you require oxygen for your breathing or have your gone to an emergency department because of breathing problems? no Are you on dialysis or have you been told that your kidneys do not work well as they should? no Do have an implanted cardiac device (pacemaker, defibrillator etc.) that has not been checked in the last 6 months? no Have you had an organ transplant? no Have you been told that you had excessive bleeding during surgical procedures or do you take blood thinning medications other than aspirin? no Have you ever had a heart attack, heart stents/surgery, valve problems, or other heart problems? no Have you had a stroke, seizures, or unexplained loss of consciousness? no Do you have a neurologic condition like Parkinson's disease or multiple sclerosis? no Have you or a blood relative had a life-threatening reaction to anesthesia? no Do you have cirrhosis of the liver or other liver disease? no Have you had a blood clot within the past year? no Do you take insulin or other injections for diabetes? no Do you have sleep apnea or have you been told you may have sleep apnea? no Do you have other implanted devices (deep brain stimulator, spinal cord stimulator, etc.)? no Physical Exam: BP 111/71 (BP Site: Left Arm) Pulse 87 Temp 36.2 C (97.2 F) (Temporal) Resp 17 Ht 160 cm (5' 3 ) Wt 65.3 kg (144 lb) LMP 01/05/2023 (Approximate) SpO2 98% BMI 25.51 kg/m Abdomen soft, mildly tender No hernias or masses Scar supra-umbilical from prior naval ring Assessment Assessment and Plan: Jocelyne Lucas is a 37 year old female with ileocolic Crohn's disease She would like to proceed with resection Plan for laparoscopic ileocolic resection with likely Kono-S reconstruction The potential harms, benefits, and alternatives to the procedure were discussed including, but not limited to, infection, bleeding, injury to nearby structures such as gallbladder, ureter, bladder and bowel, anastomotic leak as well as possible need for open operation or temporary fecal diversion. Informed consent obtained. She would like to have the scar near her umbilicus revised concurrently Discussed with Dr. Lisa Shaffer MD Colorectal Surgery Medical Decision Making: Problems: Moderate: 2+ stable chronic illnesses Data: Unique source(s) for external note(s) reviewed: 2 Unique test result(s) reviewed: 2 Risk: High: Decision on elective major surgery w/ risk factors Medical Decision Making Level: 4 - Moderate [facility] History of Present illness Narrative* Venice Bonilla RPh - 01/24/2023 9:20 AM EST IBD PharmD Follow-Up See 01/07/23 Lexdir message re: smoking cessation. Will discontinue NRT lozenge due to mouth sores. Rx for NRT patch 7 mg daily sent to pharmacy. Requested MyChart check-in from pt in one week after NRT patch initiation. [facility] Miscellaneous Notes* Telephone Encounter - Venice Bonilla RPh - 01/20/2023 9:17 AM EST Smoking Cessation Follow-Up See Lexdir correspondence from 01/07/23. Attempted to call Jocelyne to obtain more details and discuss plan - no response. [facility] Instructions* Patient Instructions* Franchesca Zuniga MD - 01/19/2023 9:37 AM EST -PLEASE NOTE THAT WE REVIEW ALL YOUR TEST RESULTS AT YOUR NEXT FOLLOW UP VISIT WITH YOU. IF ANY ABNORMAL LAB REQUIRES SOONER ATTENTION, WE WILL CONTACT YOU. -If you have signed up on Lexdir, we will release your test results through MyChart. I wish you the best of health and wellness. -Please take care and stay safe and healthy. Consume a healthy diet, stay well hydrated, sleep well, be happy, improve stress (include meditation and regular exercise), ensure adequate vitamin D. Spend some time in nature, around trees and barnett (forest bathing). Spend time outdoors next to greenery on a [place] day to benefit from the healing benefits of the Near Infra Red light of the sun that reflects on greenery (research showing benefits to cellular healing and benefits against covid-19 infection). These have been shown to help with overall health and wellbeing, stress, inflammation and in promoting a healthy immune system. -Continuous follow up with Primary care physician, for cardiovascular disease prevention, for age appropriate cancer screening and routine health maintenance and wellness, and infection precautions and age appropriate immunization, is recommended. - I recommend avoiding all dairy You can use non-dairy alternatives - I recommend smoking cessation; This is very important Also this makes raynaud's phenomenon worse and can lead to gangrene. RAYNAUD'S PHENOMENON Raynaud's phenomenon is an exaggerated response of the arterial vessels to the tips of fingers and toes. Usually triggered by cold and reverses with warming. Triggering factors include cold exposure, smoking, stress, alcohol, excessive caffeine, sinus decongestants, stimulants, etc....Certain measures can be taken to help prevent and reverse Raynaud's attacks. Raynaud's phenomenon (RP) can often be managed with lifestyle modification. Simple measures can be implemented to reduce the frequency, severity, and duration of attacks and include avoiding cold temperatures and temperature fluctuations; alleviating stress; adopting measures to keep the body warm, including adequate clothing (eg, using multiple layers, wearing thermal underwear and a warm hat);and keeping the fingers warm (eg, by using mittens or electric hand warmers instead of gloves). Placing the hands under warm water or rotating the arms in a windmill pattern may help abort Raynaud's attacks . Recommend avoiding cold exposure. This is particularly important in the winter season, as discussed, and proper attire to keep extremities and core body temperature warm for optimal control of RP symptoms. Recommend avoiding all exposure to nicotine and sympathomimetics (such as pseudoephedrine and other drugs), alcohol and excessive caffeine intake.Both active and passive smoking shouldbe avoided to help minimize the vasoconstrictive effects of tobacco. Sympathomimetic drugs (eg, decongestants, stimulants, and anorexiants) should also be avoided. We could consider use of calcium channel blockers (and occasionally topical NTG) if symptoms more active in cold season of not adequately controlled with conservative management. Other more intensivetherapy are available when clinically necessary. Additional written information on raynaud's phenomenon can be found at www.rheumatology.org. - For vitamin D, you can try the liquid form, which would be better absorbed and less concerning for the strictures You can get BlueBonnet 5000 international units per drop, and take 10 drops (to get 50,000 international units) once a week. - Maintaining good vitamin D blood levels is important for bone health and overall health. Please see additional information on vitamin D below. A vitamin D blood test, called vitamin D 25-hydroxy (OH) is obtained to assess vitamin D level. If the vitamin D is low, you will need to take a vitamin D supplement. If you are already on a vitamin D supplement, then the dose will need to be adjusted. Also you multivitamin may contain vitamin D. Vitamin D is a fat soluble vitamin that requires it be taken with good fat to be absorbed. Examplesof healthy fat include nuts, seeds, avocados, olives and for the most part the meal of the day. Spending up to 30 minutes in the sun during Summer and late Spring can provide natural vitamin D tothe uncovered skin (arms, legs) - Your calcium can be sufficient in your diet. Healthy food that are rich in calcium include: nuts, seeds, legumes/beans, peas, dark green leafy vegetables, plant based milk Additional calcium rich foods listed below - Soaking Almonds overnight in the fridge with drinking water, can help with softening the almonds and improved absorption of the almonds. Please be careful not to break a tooth with dry raw almonds,or other hard nuts or seeds. If your lab work shows insufficient calcium or you are unable to consume sufficient foods rich in calcium, then a calcium supplement is recommended, such as calcium citrate. - You can track your nutrition and calcium intake on www.[employer].CoreXchange This provides macro and micronutrient intake and requirements. - You can track your calcium intake on MeterHero or any other calcium tracker of your choice. If you are not getting about 1200 mg of calcium daily, you will need to add a calcium supplement, such as calcium citrate to supplement you daily calcium so you can achieve your total 1200 mg daily See additional information below on calcium. - I recommend following a healthy lifestyle. You can find additional information below. I recommend this to all my patients, as I have seen convincing scientific evidence, and seen the results in my practice, of the benefits of this healthy lifestyle to overall health and wellness. I hope you will find this beneficial as well. A whole plant based diet and healthy lifestyle have been reported to be optimal for health in general, anti-inflammatory diet, prevention of common chronic diseases, healthy weight management, memoryand brain healthy, bone health. - You can track your nutrition and calcium intake on www.[employer].CoreXchange This provides macro and micronutrient intake and requirements. Recommendations for healthy lifestyle include: Healthy nutritious diet, anti-inflammatory diet, appropriate exercise, good sleep hygiene, stress management, supplementing vital deficiencies and maintaining healthy weight. with BMI that does not exceed 25 to 26 . 5 points to remember to improve your health and continue on a healthy path: 1- Optimal nutritious food, such as a Whole Plant Based diet You can watch the documentary movie that features the Whole Plant Based diet, [place] over knives (see video online and visit website). Another movie that was recently released is: Eating You Alive (you can find it at [employer]) and The [employer] ChangeLifeOnKey movie Dr. Jessica Mathis is a [facility] physician who is an expert in Whole Plant based diet. His website is [employer]. His research highlights the benefits of the Whole food plant based diet in reversing and preventing heart disease. Mrs. Mathis (his ) has a cookbook with many recipes on whole plant based food: The Prevent and Reverse Heart Disease cookbook. You can also consider reading his son, Richard Mathis's book: The Engine 2 cookbook Richard is a retired animal nursery worker who has helped many people get healthier by following the whole food plantbased diet. Dr. Pancho Maya, has a website and free michelet to help get started on a whole plant based diet, at www.pcrm.org and you can log on for free for his 21-Day Kickstart with meals and recipes to follow for21 days. There is also a free michelet for that. He has multiple free videos and YouTube, for example: ht tps://youLendingStandardu.be/[email or web address] , https://LXSN.be/KjCXVzvjb9f He has written multiple books, including Power Food for the Brain, The Cheese Trap, Dr. Pancho Maya's Program for Reversing Diabetes, Your Body in Balance Dr. Valente Valera has shown the benefit of a starch based whole food plant based diet to his Rheumatoid Arthritis patients, as well as patient with diabetes II, hypertension, obesity, multiple sclerosis, heart disease, acne, and other, his website: www.cheli.CoreXchange Dr. Sydney Reyez is a renowned earth observations chief scientist, who has studied and researched the benefits of the Whole plant based diet. He has also researched the adverse effects of animal proteins on health. He presents many of his research findings in his book The Hamlet study. Dr. Woody Marino has completed many research trials proving the reversal of diseases, such as heart disease and early prostate cancer, with healthy lifestyle and the Whole Plant based diet. Dr. Woody Marino website is: www.bashirJoincube.[email or web address].CoreXchange His new book: Undo It, has evidence based information and guide to following this healthy lifestyle. Dr. Mukesh Kruger has dedicated a website and additional time to reviewing all food related articles and research and presents them in his power point presentation and on his website at: nutritionfacts.org which is all free. Dr. Kruger has multiple free videos and YouTube, for example https://LXSN.be/aSgNkhgVtks and https://LXSN.be/lXXXygDRyBU. He has written multiple books including: How Not To and How Not To Diet He is now working on his next book: How Not To Age Dr. Yajaira Jacobs (from the [facility]), has articles on the following website: [email or web address] Also, you could find additional information on practical to follow recipes by reading or watching online and YouTube such as: [employer] AJ, Cooking With Plants, The Vegan Corner (recipes from an [place] [employer]), The Whole Foods Plant Based Cooking Show and visiting the provided websites for additional information on the whole plant based benefit and cooking recipes. You can also consider watching the vlogs of some of the plant based Athletes such as Joel Coles, Rad Patel, Tylor on [employer]. Dr. Stacie Ray (a psychiatrist who suffered with lupus) has helped reverse her Systemic Lupus Erythematosus and helps many patients with their auto-immune diseases, based on her recommendations of the whole food plant based diet and the green smoothies. She has a facebook and website, and on youtube her channel is: Goodbye Lupus Some people have adverse effect or intolerance to gluten. Certain patients with auto-immune disease, including auto-immune thyroid disease, need to avoid gluten. If you suspect you are gluten sensitive or intolerant, consider gluten free diet. Gluten could leadto increased inflammation in the bowels and body in certain patients. Not all your food has to be organ if you cannot afford or find them. Consider organic and non-GMO products when shopping for your food, when possible. GMO are genetically modified food that may have adverse impact on our health. If you are unable to purchase organic of non-GMO, you can wash your produce with white vinegar or soak in baking soda and water (see details from Dr. Rosenbaum's website nutritionfacts.org) and rinse well with water. 2- Regular Exercise, such as beginner yoga, candida chi, stretching, cardio, gradual strengthening, pool therapy, physical therapy Come As You Are: YOGA - Gentle Yoga Anyone Can Do Anywhere www.[employer]/yoga Also on youtube: yoga with Itzel 3- Good Sleep (poor sleep impacts everything, recommended sleep is 7.5 to 8 hrs. a night). Certain people need less or more sleep. Meditation and relaxation techniques have shown to help with improving sleep. 4- Stress management, staying positive, be happy, laugh often (it is a great medicine) Find time to relax and meditate if possible. Following steps 1-3 will help with this as well. In psychiatric disorders, it is important to follow with a professional on the optimal management of depression, anxiety or psychiatric illness 5- Supplements Supplementing necessary vitamins and minerals, correcting any deficiencies, i.e. Vitamin D, B12, omega-3 fatty acids etc... Go natural when possible -Important notice: If you are following a Whole plant based diet, it is recommended to take [id number], sublingual, dissolve under the tongue, take once daily. Vitamin B12 is available over the counter, dose could be 2500 mcg, and can be taken once a week, and if your blood levels are low, you mayneed to take it once daily or a higher dose. Raw: Garlic, Cilantro, [place] nuts, Pumpkin seeds, [place] seeds and Flax seed powder have been reported to help with certain metal detoxification such as mercury. [place]-3 plant based rich foods are good anti-inflammatory sources such as : julio seeds, flax seed (needs to be ground), walnuts, hemp seeds, dark green leafy vegetables. It is important to avoid refined oils as much as possible especially that many have too much omega-6 that is pro-inflammatory (lead to inflammation as well as concern for heart and vascular disease). Turmeric can be found natural, used as the spice powder or the root with your food. This is also available as a capsule. If you are on a blood thinner, you will need to discuss with your pharmacist or physician before taking Turmeric If you have gall bladder disease or gall bladder stones, it is recommended to avoid turmeric capsules. Sweet cherries (raw cleaned or frozen), Turmeric , pineapple (contains bromelain), omega-rich foods, have anti-inflammatory benefit Start reviewing the Whole Plant Based Diet, by watching [place] over Endoclear movie and then review website. There are many other resources and educational information on the Whole plant based diet on the Internet and documentaries. There are other resources for wellness that you can also benefit from, such as the [facility] website, [facility] and includes Plant based and Mediterranean diet, yoga and meditation. Please avoid all dairy products. You could use non-dairy milk such as Flax milk, Cashew milk, [place] milk, Rice milk, Oat milk or Hemp milk, instead. It is very important to avoid all: refined sugars (including high fructose syrup), refined carbohydrates, any artificial sweeteners and artificial preservatives, and soda and heavily processed food. Insure adequate hydration; drink at least 6 to 8 cups of water daily, certain people need less or more. Examples of Smoothies: Every morning you can start your day with a healthy natural anti-inflammatory smoothie, for example, you can blend: fresh or frozen sweet cherries, half a root of turmeric (1 to 2 inches), banana, blue berries, walnuts, few leaves of kale, add flax milk (or almond milk), and enjoy. You could add half an avocado if you like it smoother. If you do not tolerate walnuts, you can use flax seeds, julio seeds or hemp seeds instead. If you do not like plant based milk, you can use coconut water or plainwater instead. Other smoothies, including green smoothies, are also very healthy and highly anti-inflammatory. Forexample fruits (such as banana or frozen cesia or pineapple) and add significant amount of leafy greens, then add water or coconut water and blend until smooth. You can also add turmeric in this recipe. GENERAL INFORMATION ON BONE HEALTH : -Bone Density testing (DXA scan) as recommended. -Vitamin D supplementation is recommended, unless blood levels are sufficient. Recommended daily dose of 1000 to 2000 IU total a day, or the dose necessary to achieve a Vitamin D25-OH blood level of >31 and preferably closer to 40-60 ng/mL. Vitamin D pills are available over the counter. -Recommended daily dose of calcium: 1200mg total a day in divided doses. Calcium is usually sufficient in our regular diet, also available in multivitamins. Patients on certain dietary restrictions or those unable to meet their daily calcium by diety alone, may require calcium supplements. For patient with history of calcium kidney stones, Calcium Citrate would be the recommended supplement. It is recommended to avoid caclium carbonate supplement in this case, as these may increase risk of calcium kidney stones. The after visit summary has information on dietary calcium and instructions on reading calcium label and converting the %DV to mg. When you read a food label and you see calcium reported as DV %, add a zero and this will provide you with the approximate mg value of the calcium content in this food. For example, if a glass of almond milk is labeled as 40% calcium DV, then this contains 400 mg of calcium. For additional information, please see references provided. -Regular weight-bearing and muscle-strengthening exercise -Avoidance of tobacco smoking, excessive alcohol intake and excessive caffeine intake. -Fall and fracture precautions -It is recommend to continue regular follow up visits with your dentist every 6 months, and continue with good oral hygiene. Calcium: If your diet is sufficient in Calcium rich food, you will not need calcium supplement. Calcium Citrate is the preferred calcium if you have had kidney stones. Daily recommended calcium dose: 600mg twice a day with meals. Adequate calcium ingestion is essential for maintaining healthy bones. The recommended dose daily intake of calcium varies depending on individual needs but is usually between 1200 and 1500mg daily, preferably around 1200mg a day in divided dose (not all taken at once). This is equivalent to about five 8oz glasses of milk per day. Many foods are rich in calcium and they include: - Plant based, non-dairy, calcium rich products, include nuts, almond milk, beans, lentils - Vegetables and Fruit: bok-greene, turnips, broccoli, kale, collards, - Dairy products: milk, cheese, yogurt, ice-cream - Fish products: canned salmon, sardines and shrimp - Cereals and nuts: almonds, sesame seeds, fortified cereals and oatmeal - Other foods: fortified orange-juice, figs, soybeans, other beans and eggs. If you have a low calcium diet and cannot tolerate calcium-rich foods, many supplements are available today. Your pharmacist can help you choose the one which best suits your needs. A few tips on supplements: - They should be easy to swallow - They should dissolve easily in cup of vinegar in < 15 minutes. - Count the ELEMENTAL calcium mgs. E.g. Calcium 499mg may have only 221mg of elemental Calcium. - Calcium citrate is the calcium supplement to take if you have had kidney stones and unable to meet your calcium requirements from food/diet alone. - There is such a variety today that it is best to bring in the bottle to your doctor to show them exactly what you are taking. Lastly too much calcium can be bad for you. Recent studies show extra supplements may increase yourrisk of kidney stones or cause high calcium levels in some people. You should discuss how much you should be taking with your doctor before starting them. Further Information is available from the following resources: www.nof.org (National Osteoporosis Foundation) http://www.osteo.org/osteolinks.asp National Institutes of Health: 0-154-361-BONE The Calcium Information Upperglade: -Non-Dairy, Plant based Milk, can contain in1 glass up to 450 mg of calcium (300 to 450 mg) Exampled include Oat Milk, Flax Milk, [place] Milk, Cashew Milk, Soy Milk, Peas Milk general health and well being Examples of Food Sources of Calcium from [facility] Food Milligrams (mg) per serving Percent DV* Soymilk, calcium-fortified, 8 ounces 299 30 Pound juice, calcium-fortified, 6 ounces 261 26 Tofu, firm, made with calcium sulfate, cup* 253 25 Tofu, soft, made with calcium sulfate, cup* 138 14 Mawmm-gg-ecf cereal, calcium-fortified, 1 cup 100-1,000 10-100 Turnip greens, fresh, boiled, cup 99 10 Kale, raw, chopped, 1 cup 100 10 Kale, fresh, cooked, 1 cup 94 9 Indonesian cabbage, bok greene, raw, shredded, 1 cup 74 7 Bread, white, 1 slice 73 7 Tortilla, corn, wbzwf-zx-agkr/dunbar, one 6 diameter 46 5 Tortilla, flour, fexyp-oy-yjni/dunbar, one 6 diameter 32 3 Bread, whole-wheat, 1 slice 30 3 Broccoli, raw, cup 21 2 * DV = Daily Value. DVs were developed by the U.S. Food and Drug Administration to help consumers compare the nutrient contents among products within the context of a total daily diet. The U.S. Department of Agriculture s (USDA s) Nutrient Database Web site lists the nutrient contentof many foods and provides comprehensive list of foods containing calcium arranged by nutrient content and by food name. *Calcium content varies slightly by fat content; the more fat, the less calcium the food contains. * Calcium content is for tofu processed with a calcium salt. Tofu processed with other salts does not provide significant amounts of calcium. You could acces this information online at: http://ods.od.nih.gov/factsheets/Calcium-HealthProfessional/ Vitamin D: Vitamin D3= cholecalciferol, available over the counter. Dose recommended 800 to 1000 iu daily with a meal; Certain patients require 4386-3234 iu daily and in patients deficient in Vitamin D, they require higher dosages. Certain patient requires higher dose, depending on their Vit D blood levels. Vitamin D is essential for calcium metabolism. It is really a hormone produced mainly in your skin after exposure to sunlight. Vitamin D helps you absorb calcium from your stomach and kidneys and incorporates it into your bones. Studies show approximately 50% of [place] men and women are vitamin D deficient in the winter. Milder cases of vitamin D are usually asymptomatic so the only way to know you have a problem is to have a blood level checked. More severe cases can cause osteomalacia(a.k.a. rickets) which can result in bone pain, weak bones and several abnormal laboratory tests and also weak muscles (a.k.a. myopathy). When this happens, your bones lose a lot of their calcium stores as the body tries to regulate the calcium required by other tissues. Prolonged deficiency can lead to severe bone disorders and fractures. Unlike calcium, dietary sources of vitamin D are rare, limited to a few fish oils particularly cod-liver oil, other fortified foods and egg yolks. and most are unhealthy. Natural source of vitamin D is through sunshine. This is usually during cameron seasons, for example a 30 minute exposure to sunshine. Some people are unable to be exposed to the sun due to skin condition. Often supplementation isneeded. Many multivitamins contain some vitamin D and vitamin D alone preparations are now available in several forms. The recommended daily intake of vitamin D used to be 400 and 800 international units, however, it is now known that larger amounts are needed, as discussed above. Your doctor can prescribe prescription strength vitamin D for you if necessary, if you have marked deficiency or diseases of the liver or kidney. Supplementation in patients with severe deficiency can stabilize or improve bone mineral density and in frail elderly persons, may reduce their risk of falling. Additional Information is available from: www.nof.org (the national osteoporosis foundation) http://www.[facility].org/arthritis/osteo/info.htm http://ods.od.nih.gov/factsheets/vitamind.asp National Institutes of Health: 1-331-865-BONE The Calcium Information Center: At the [facility], we work as a team for your care, along with Nurse Practitioners, PhysicianAssistants, Nurses and Medical Assistants. It is a privilege and honor to serve you. Thank you for choosing [facility] for your healthcare. Sincerely, Franchesca Springer MD [facility] History of Present illness Narrative* Franchesca Zuniga MD - 01/19/2023 9:21 AM EST Images from the original note were not included. Rheumatology CONSULTATION Referring Provider: Cuco Gonzalez MD Date of Service: 01/19/2023 Gender: female Ethnicity: Age: [age] year old Chief Complaint: New Patient Last Rheumatology visit: None at [facility] Jocelyne Lucas is a 37 year old female who presents on 01/19/2023 for in person visit for evaluation of New Patient. HISTORY OF PRESENT ILLNESS NEW CONSULT January 19, 2023 Accompanied by her mother: Cyndee Lucas is a very nice 37 y.o. lady with pertinent PMH of IBD and sacroiliitis. She relays that her goal is to be on minimal meds States if her jts flare she would prefer to take Humira, as needed, as it worked for her before, would only take it if flares. States is aware that it can stop working if taken as such (referring to immunogenicity). With Humira denies freq infections or adverse effect She has been under the care of IBD specialist, Destination Sign Repairer, Dr. CLAUDIA Gonzalez, since 2021. He confirmed her diagnosis of Crohn's disease She has had IBD for about 10 yrs; Reports has had colonoscopies and biopsies to confirm States she was diagnosed with based on her sacroiliitis, around age 16 yrs, by a Furrier Designer Initially was being diagnosed for torn muscle, but her MRI showed active sacroiliitis Joints: SI and Lumbar States as I aged has noticed pains along ribs and mid thoracic and sometimes feels like somebodypunched me in the lungs Flares would involved LB at the SI's, would have sharp shooting pain and cannot take another stepand cannot sit right nothing Am stiffness: yes, much improved with Humira She has also received steroids before, unable to verify dosing and frequency States used to have to get out of bed at 3 am due to back stiffness Jt swelling: none Currently Denies pain Denies LB pain Am stiffness: couple minutes ; no longer waking up at 3 am When stiff, turns her heating pad for couple min, would be along T-sp and is fine Dactylitis or Enthesitis: denies PF/AT history: denies Denies history of uveitis or iritis Denies psoriasis, but had cracking and peeling in the soles , states saw Inventory Control Assistant and was notgiven diagnosis for psoriasis No reported history of EN Her mother has psoriasis Her sister has alopecia areata Reports FH of lupus Rx for IBD: prednisone methotrexate took for 6 months, no benefit, to bowels and jts Humira prescribed 40 mg sq every 2 wks, for 4 yrs Denies other biologic medications States she stopped taking Humira States takes Humira differently : states can get Humira prn and only takes them when she flares. States was getting shipment and using them prn. States would use one injection and her flare would resolve. States she understands that by taking prn can lead to immunogenicity and does not work. Her Furrier Designer left [place] States since changed her diet, has not had a severe flare up in 2 yrs States was doing shrimp and rice and salads, nuts, fruits and veggies States has since started a totally different diet and started exercising and is good. States Dr. Gonzalez did not recommended biologic medications, and did not plan on prescribing Humira or other medications. She reports her CD is ok, feels has a lot of inflammation that she cannot get rid of, states does not get typical flares States uses bentyl if has spasms States her CD presents with severe pain under breast bone would land in the hospital 2 days Rarely would have bld in stools, diarrhea would be uncommon for her Gets bloating and gas and discomfort. Colonoscopy report 11/2022: Impression: - Stricture at the ileocecal valve could not be traversed. - One 4 mm polyp in the sigmoid colon, removed with a cold biopsy forceps. Resected and retrieved. - The examination was otherwise normal. - Biopsies were taken with a cold forceps for histology in the descending colon, in the transverse colon and in the ascending colon. Sheldon Abreu MD 12/03/2022 9:52:14 AM States will be having surgery on her Ileum States she is currently on a very limited diet Diet: water, 1 cup of coffee rice and chicken, carrots States cannot have anything with a peel or skin States if blended in a sweeping compound blender can have. She consumes cheese, daily, as snacks and a yogurt, high protein yogurt okeos zero sugar States told can have fruits and veggies blended She has met with dietitian and he recommended that diet and is considering Mediterranean diet afterher surgery. Stress has been a trigger for flares and reason for smoking Exercise: Goes to the gym 3-4 times a wk Has had PT in the past, does not feel is an huge benefit She was found to have vitamin D deficiency : and was prescribed 50,000 international units capsule once a week, taking with a meal. 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 not seen space physicist Eye Dryness: No Nose Bleeds: No Sores in your Mouth: No Trouble Swallowing: No Dry Mouth: No Chest Pain: No Leg Swelling: No A Cough: No Shortness of Breath: No Pain with Breathing: No Heartburn: No Abdominal Pain: No Diarrhea: No Black Tarry Stools: No Blood in Urine: No Pain or Burning with Urination: No Joint Pain or Stiffness: Yes - as above Muscle Weakness: No Muscle Aches: No Joint Swelling: Yes- reviewed, denies to me Morning Stiffness in Joints: Yes A Rash: No Skin Color Changes: No Hair Loss: No Nail Changes: No Headaches: No Numbness: Yes- when gets raynaud's phenomenon : reports white and bluish discoloration if fingers b/l; She smokes, discussing importance of smoking cessation; She is working on smoking cessation. 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 Per faxed records from [place] when seen 10/2019 by GI there: Diagnosed with CD in 2010 via serology. C-scope 09/2013 pathology showed granuloma in TI, minimally active chronic colitis in ICV, mildly active chronic colitis in sigmoid colon with granuloma. Treated with sulfalazine and Lialda but discontinued. Started on Humira in 2015 mainly for by Rheum at [facility], was on it for a year then stopped to assess symptoms off of it, but restarted 07/2018. Antibodies checked and negative 08/2018. Had a flare in 2018 while she was with up to 10 watery bloody BMs a day, treated with course of Prednisone 07/2019. Also had bloating for which she was prescribed flagyl and symptoms resolved.Labs [id number] provided significant for elevated CRP to 5 in 10/2017, and Fecal calpro 90 in 05/2018. Last C-scope ~2017 per pt, records unavailable, CD did not look active, however she has a stricture in the ileocolonic region, never needed dilation. Ms. Lucas is here today as her local GI is retiring, from [place], [place]. She follows with Rheumin [facility], planning to move all care here. Symptoms that led to the diagnosis of CD were mainly abdominal pain. Humira is first biologic she's been on. Was on it weekly for about 4 years, has been usingit as needed for the past year. Last dose was a couple of weeks ago (06/23/2022), was stressed and fe lt CD flare symptoms therefore used it. Has no Humira injections left. Kept symptoms at bay with lifestyle changes (exercise, better diet). Hasn't needed steroids for CD flare in >1 year, hasn't been hospitalized in ~8 years. Most significant GI symptom today is bloating. She is on a prebiotic daily & uses GasX PRN, helps some. Has Bentyl prn. Most recent GI tract testing: glucose breath test (08/2022)- negative; MRe (07/2022)- active stricturing disease involving a 4 cm segment of the TI; Colonoscopy (12/03/2022) with a non- traversable (despite multiple attempts) ileocecal valve d/t intrinsic severe stenosis. IMPRESSION: STRICTURE WITH IMAGING FINDINGS OF ACTIVE INFLAMMATION INVOLVING AN APPROXIMATELY 4 CM SEGMENT OF TERMINAL ILEUM. PENETRATING DISEASE: ABSENT. BILATERAL SACROILIITIS. Precision Grinder: JHONNY Transcribe Date/Time: Aug 14 2022 3:16P Dictated by : CARLOS MANUEL DORANTES DO This examination was interpreted and the report reviewed and electronically signed by: CARLOS MANUEL DORANTES DO on Aug 14 2022 3:46PM EST Results-Findings * * *Final Report* * * DATE OF EXAM: Aug 13 2022 8:53PM QBM [id number] - MRI ABD ENTEROG WO/W IVCON / PROCEDURE REASON: multiple diagnoses * * * * Physician Interpretation * * * * MRI OF THE ABDOMEN AND PELVIS WITHOUT AND WITH CONTRAST (MR ENTEROGRAPHY) CLINICAL HISTORY: 37 year old female with PMHx of?ankylosing spondylitis (HLA B27+), former smoker (quit in 2011),?nephrolithiasis?and inflammatory?vs stricturing?ileocolonic CD here to establish care for CD. ? Per faxed records from [facility] when seen 10/2019 by GI there: Diagnosed with CD in 2010 via serology. C-scope 09/2013 pathology showed granuloma in TI, minimally active chronic colitis in ICV, mildly active chronic colitis in sigmoid colon with granuloma. Treated with sulfalazine and Lialda but discontinued. Started on Humira in 2015 mainly for by Rheum at [facility], was on it for a year then stopped to assess symptoms off of it, but restarted 07/2018. Antibodies checked and negative 08/2018. Had a flare in 2018 while she was with up to 10 watery bloody BMs a day, treated with course of Prednisone 07/2019. Also had bloating for which she was prescribed flagyl and symptoms resolved. Labs [id number] provided significant for elevated CRP to 5 in 10/2017, and Fecal calpro 90 in 05/2018.?Last C-scope 2017 per pt, records unavailable, CD did not look active, however she has a stricture in the ileocolonic region, never needed dilation. COMPARISON: None. TECHNIQUE: Magnet: 3.0 Veena Coil: Torso phased array Sequences / planes: HASTE: axial and coronal SPAIR:Axial 1 mg of intravenous glucagon was administered during the examination. T1 3-D GRE without and with iv contrast: axial and coronal Diffusion weighted imaging with ADC mapping: axial Contrast: IV: 13 ml of Dotarem Oral: 1000 ml of Breeza RESULT: GI Tract: Small bowel: Mural thickening, hyperenhancement, and mild upstream dilation involving an approximately 4 cm segment of terminal ileum extending to the ileocecal junction, consistent with stricture with component of mild active inflammation (19:41). No small bowel mural thickening or hyperenhancement otherwise. Colon and Rectum: No mural hyperenhancement or wall thickening. Strictures: 4 cm segment of terminal ileum. Fistulae/Sinus tracts: None. Abscess: None. Abdomen: Liver: Normal morphology. No suspicious lesions where visualized. Biliary: No biliary dilation. Gallbladder is unremarkable. Spleen: No mass. No splenomegaly. Pancreas: No mass or duct dilation. Adrenals: No mass. Kidneys: No suspicious lesions or hydronephrosis. Lymph nodes: No abdominal or pelvic lymphadenopathy. Mesentery / Peritoneum / Retroperitoneum: No ascites or organized collection. Vasculature: The celiac axis and SMA are patent. The portal vein and branches, splenic vein, SMV, and hepatic veins are patent. No abdominal aortic aneurysm. Pelvis: Urinary bladder is unremarkable. No organized intrapelvic collection. Minimal free fluid, likely physiologic. Bones/Soft Tissues: Signal changes suggesting bilateral sacroiliitis. PAIN EVALUATION No data found in the last 1 encounters. 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 SpA no enthesitis No dactylitis Inflammatory back pain HLA-27 positive Radiographic changes No ophthalmologic involvement Radiographic changes: Sacroiliitis Osteoporosis FRAX Risk Factors No rheumatoid arthritis Rheumatoid Arthritis History Morning stiffness No joint swelling No joint replacement Extra-Articular Features / Comorbidities No history of malignancy No vasculitis No episcleritis No scleritis No dry eyes No dry mouth No pleural effusions No lung nodules No congestive heart failure No pericarditis No myocardial infarction No peripheral neuropathy No mononeuritis multiplex No anemia No neutropenia No thrombocytopenia Systemic Lupus Erythematosus (SLE) History Relevant to SLICC Classification Criteria - no oral ulcers OR nasal ulcers - no thrombocytopenia (<100,000/mm3) Relevant to New ACR and EULAR Classification Criteria - no psychosis - no seizure - no thrombocytopenia Other History Relevant to SLE - no stroke - no pre-eclampsia or eclampsia - Miscarriage (Comment: 2, one was at 20 wks; states saw MFM/high density press operator was placed on lovenox) - Raynaud's - no PE - no DVT (Comment: Reports had septic pelvic thrombophlebitis, with both pregnancies, was on lovenox for 6 mo) - no ILD or pneumonitis - no calcinosis Progressive Systemic Sclerosis (PSS) History Raynaud's No GERD Autoimmune Disease History no rash No sun sensitivity No alopecia Raynaud's disease No dry eyes no dry mouth No oral/nasal ulcers No nailfold No stroke No seizures No psychosis No pre-eclampsia / eclampsia miscarriage (Comment: 2, one was at 20 wks; states saw MFM/high density press operator was placed on lovenox) Joint inflammation No pulmonary embolism No DVT (Comment: Reports had septic pelvic thrombophlebitis, with both pregnancies, was on lovenox for 6 mo) No ILD or pneumonitis No calcinosis No pleurisy or pleural effusion No pericarditis or pericardial effusion No muscle weakness No skin tightening No GERD No esophageal dysmotility No renal disease Gout History RISK FACTORS No congestive heart failure Inflammatory Eye Disease History no scleritis No uveitis Inflammatory Eye Disease - Associated Conditions PATIENT FAMILY HISTORY no psoriasis no hidradenitis supparativa no sarcoidosis Inflammatory bowel disease Crohn's disease Spondyloarthropathy HLA-27 positive no Behcet's syndrome no rheumatoid arthritis no vasculitis Psoriasis (Comment: mother, paternal uncle) no hidradenitis supparativa no sarcoidosis no IBD no Crohn's no ulcerative colitis no spondyloarthropathy Musculoskeletal History No joint swelling No joint replacements Musculoskeletal History No joint swelling No joint replacements Treatment History Relevant Previous Investigations CBC Latest Ref Rng & Units 07/05/2022 12/10/2022 WBC 3.70 - 11.00 k/uL 6.35 9.31 HEMOGLOBIN 11.5 - 15.5 g/dL 14.4 14.8 HEMATOCRIT 36.0 - 46.0 % 45.2 44.9 PLATELETS 150 - 400 k/uL 245 353 CMP Latest Ref Rng & Units 07/05/2022 12/10/2022 SODIUM 136 - 144 mmol/L 140 141 POTASSIUM 3.7 - 5.1 mmol/L 4.6 4.5 CHLORIDE 97 - 105 mmol/L 105 103 CO2 22 - 30 mmol/L 26 26 GLUCOSE 74 - 99 mg/dL 96 96 BUN 7 - 21 mg/dL 8 6(L) CREATININE 0.58 - 0.96 mg/dL 0.73 0.79 CALCIUM, TOTAL 8.5 - 10.2 mg/dL 9.5 9.7 AST 13 - 35 U/L 18 23 ALT 7 - 38 U/L 8 13 ALKALINE PHOSPHATASE 34 - 123 U/L 61 68 Hepatitis Screen Latest Ref Rng & Units 07/05/2022 12/10/2022 HEPAIGG Negative Negative - HEPAIGM Negative - Negative HEPBCOTOL Negative Negative Negative HEPSABQ Positive Negative Negative(A) HEPCABEIA Negative Negative Negative HBSAG Negative Negative Negative TB Screen 07/05/2022 12/10/2022 TBGINT Infection with M. tuberculosis complex is unlikely. If latent tuberculosis infection is highly suspected, a negative result does not rule out the infection. Specimens from immunocompromised patients and those <5 years of age may show false negative results. In case of a contact investigation, please repeat 8-12 weeks after a known exposure. Infection with M. tuberculosis complex is unlikely. If latent tuberculosis infection is highly suspected, a negative result does not rule out the infection. Specimens from immunocompromised patients and those <5 years of age may show false negative results. In case of a contact investigation, please repeat 8-12 weeks after a known exposure. TBGRES Negative Negative Imaging / Studies Last XR Sacroiliac - Impression Only XR SACROILIAC JOINTS 2V AP PELVIS/FERGUESON Exam End: 01/19/2023 11:01 AM (Final result) Impression: IMPRESSION: 1. Bilateral sacroiliitis. Precision Grinder: JHONNY Transcribe Date/Time: Jan 19 2023 12:03P ... Last MRI Hip/Pelvis - Impression Only No resulted procedures found. Last CT Hip/Pelvis - Impression Only No resulted procedures found. Review of Systems Review of Systems CONSTITUTION: Negative for: Fever and Recent weight change HEENT: Negative for: Nosebleeds, Mouth sores, Trouble swallowing and Dry mouth RESPIRATORY: Negative for: Cough, Shortness of breath and Pain with breathing GASTROINTESTINAL: Negative for: Melena, Diarrhea, Heartburn and Abdominal pain MUSCULOSKELETAL: Positive for: Arthralgias, Joint swelling and Morning Joint Stiffness Negative for: Myalgias and Muscle weakness NEUROLOGICAL: Positive for: Numbness Negative for: Headaches and Memory loss SKIN: Negative for: Rash, Skin changes, Hair loss and Nail changes EYES: Positive for: Visual disturbance Negative for: Eye pain, Eye redness and Eye dryness CARDIOVASCULAR: Negative for: Chest pain and Leg swelling GENITOURINARY: Negative for: Dysuria and Hematuria HEMATOLOGIC/LYMPHATIC: Negative for: Swollen glandsAll other reviewed and negative other than HPI. Problem List There is no problem list on file for this patient. Past Medical History No past medical history on file. Past Surgical History No past surgical history on file. Family History No family history on file. Social History Social History Tobacco Use Smoking status: Every Day Types: Cigarettes Smokeless tobacco: Never Substance Use Topics Alcohol use: Yes Medications Current Outpatient Medications Medication Sig cholecalciferol, Vitamin D3, (VITAMIN D3) 1,250 mcg (50,000 unit) cap capsule Take 1 capsule by mouth one time a week. Nicotine Polacrilex 2 mg lozenge Use 1 lozenge every 1-2 hour as needed; do not exceed >20 lozenge per day. Put the lozenge in your mouth between your gums and your cheek and allow the lozenge to dissolve slowly over 20-30 minutes, moving it around every so often from one side of your mouth to the other. No current facility-administered medications for this visit. Physical Exam BP 110/68 Pulse 66 Wt 142 lb (64.4kg) LMP 11/28/2022 Physical Exam Vitals reviewed. Constitutional: General: She is not in acute distress. Comments: WD/WN, NAD. Appropriate grooming. HENT: Head: Normocephalic and atraumatic. Comments: No patchy alopecia, normal temporal artery pulsations, non-tender, scalp non-tender, no conjunctival injection or icterus, no oral ulcers, no thrush, no nasal bridge collapse, no cartilage swelling, no parotid gland swelling. Cardiovascular: Rate and Rhythm: Normal rate and regular rhythm. Pulses: Normal pulses. Heart sounds: No murmur heard. No friction rub. No gallop. Pulmonary: Effort: Pulmonary effort is normal. No respiratory distress. Breath sounds: Normal breath sounds. No stridor. No wheezing, rhonchi or rales. Comments: CTA, Good respiratory effort. Abdominal: Palpations: Abdomen is soft. Tenderness: There is no abdominal tenderness. Musculoskeletal: Cervical back: Neck supple. No tenderness. Comments: No significant joint deformities, no rheumatoid nodules, calcifications or tophi. No SI tenderness, no basil's tenderness, no heel/plantar tenderness, lumbar flexion full; Borderline abnormal Emanuel's test. Finger to floor 10 cm Swoll JTS: 0 Tend. JTS: 0 No clinical synovitis in the DIP's, PIP's, MCP's, wrists, elbows, shoulders, knees, ankles, midfoot, or toes. No knee effusions bilateral. Shoulder exam: FROM without pain or impingement Hip rom without pain LIMITATION of Motion of Joints: mild SI's Thoracic/Lumbar Spine: No percussion tenderness SLR: negative b/l, modified No instability in any upper or lower extremity joints. Lymphadenopathy: Cervical: No cervical adenopathy. Skin: Capillary Refill: Capillary refill takes less than 2 seconds. No raynaud's phenomenon on exam Nailfold capillaroscopy performed on January 19, 2023 of left 3rd finger: no dilated capillary loops, no dropped loops, no hemorrhages. Comments: No rash, no psoriasis, no purpura, no ulcers, no skin thickening/tightness, no circular telangiectasias. No clubbing,discoloration,sclerodactyly, periungual erythema, digital ulcers, nail pitting, edema. Neurological: General: No focal deficit present. Mental Status: She is alert and oriented to person, place, and time. Sensory: No sensory deficit. Motor: No weakness. Gait: Gait normal. Psychiatric: Mood and Affect: Mood normal. Behavior: Behavior normal. There is currently no information documented on the homunculus. Go to the Rheumatology activity andcomplete the homunculus joint exam. Joint Exam 01/19/2023 No joint exam has been documented for this visit Patient-Entered Data PROMIS Assessments PROMIS Global Health - (T-Scores - the mean of general population = 50. Five points is a clinicallymeaningful difference.) 12/30/2022 Physical T-Score 50.8 Mental T-Score 48.3 PROMIS CAT Pain Interference 01/18/2023 PROMIS Pain Interference T-Score (range: 10 - 90) 40 (within normal limits) PROMIS Pain Interference Percentile 84 % PROMIS CAT Fatigue 01/18/2023 PROMIS Fatigue T-Score 62 (moderate) PROMIS Fatigue Percentile 12 % PROMIS PHYSICAL FUNCTION T-SCORE 01/18/2023 PROMIS Physical Function T-Score 43 (mild dysfunction) Physical Function Percentile 24 % PHQ-9 0 - 4: Minimal Depression 5 - 9: Mild Depression 10 - 14: Moderate Depression 15 - 19: Moderately Severe Depression 20 - 27: Severe Depression PHQ-9 01/18/2023 PHQ-2 Score 2 Impression Diagnoses: 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, 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) M46.1 Bilateral sacroiliitis (HCC) M25.69 Back stiffness, history Z15.89 HLA B27 (HLA B27 positive) Comment: 2018, outside lab K50.818 Crohn's disease of both small and large intestine with other complication (HCC) Comment: Following with GI K56.699 Stricture intestinal (HCC) E55.9 Vitamin D deficiency I73.00 Raynaud's phenomenon without gangrene Comment: Not confirmed; based on patient's reported hx F17.210 Cigarette smoker motivated to quit N96 Pers History of multiple miscarriages H53.9 Vision changes Z71.89 Counseling on health promotion and disease prevention IBD-associated inflammatory arthropathy, mainly axial involving SI jts, b/l sacroiliitis Patient is HLA-B27 positive (outside labs). She denies uveitis, dactylitis, enthesitis, peripheral jt involvement, EN and denies being diagnosed with psoriasis. She describes a history of scaly rash along feet, cannot exclude that this may have been plantar psoriasis. Her mother has psoriasis; Her sister has alopecia areata and FH of lupus. She describes definite inflammatory back pains involving SI's historically, with significant am stiffness and awakening latter part of night due to SI gelling. She reports doing well today and feels flares has had her disease under control with dietary changes She reports significant and full response to Humira, but would only take it prn. She describes some flares as sharp pain in SI's, where she is unable to walk and not as much stiffness, more pain. These symptoms are not c/w inflammatory jt flare. It is possible that she may have experienced a mechanical strain to an underlying affected joint (SI's), except that she reports ?immediate response after Humira injection. 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 Has had steroids over the yrs for the CD, I could not verify duration. Her DXA was recently completed, is normal (and within expect for age, I personally review her scans). She has b/l sacroiliitis on MRI 08/13/2022 and patient was having a flare at that time of her IBD and SI's then. She prefers to avoid medications when possible. She is very motivated towards anti-inflammatory diet and lifestyle. 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 Has quit off and on. She is motivated to quit and is aware of risks. I counseled patient on smoking cessation. She is following with her Destination Sign Repairer, IBD specialist, Dr. CLAUDIA Gonzalez, for her Crohn's disease. I reviewed last GI team note from Dec 10, 2022 : From a Crohn's standpoint, she has ileal and sigmoid colon involvement; no prior surgery. She wasinitially treated with intermittent prednisone and sulfasalazine/mesalamine. She has been on Humirasince 2017 (also on it from 3832-3550)- started mostly for . However, she only uses it PRN- in fact has only taken it once in the past year in 05/2022. Due to c/o prominent bloating we ordered a glucose breath test-08/2022 (negative) and MRe-07/2022 with active stricturing disease involving a 4 cm segment of the TI. She recently had a colonoscopy (12/03/2022) with a non-traversable (despite multiple attempts) ileocecal valve d/t intrinsic severe stenosis. Today she continues to feel well from a Crohn's perspective, with her only symptom being a constantbloat (likely related to her stricture). She is open to surgery if this is the best route for her case. - Roro Cain APRN.[employer] At today's visit, she denies LB or SI pains. Reports has had pain along the mid T-spine. She has nosignificant am gelling at this time (reported 2 min) and has no clinical evidence for active inflammatory arthropathy on exam. Will obtain x-rays to have baseline of her SI jts and will obtain T-sp x-rays to evaluated for upper back involvement and syndesmophytes. Patient is candidate for biologic treatment for her IBD-associated SpA. If her disease becomes active, we can assist with resuming Humira. We discussed concern with developing immunogenicity if takesit only prn. With her axial predominant disease, a biologic med such as anti-TNF is recommended. Oral conventional DMARDs would no provide benefit to axial disease. We also reviewed anti-inflammatory diet and lifestyle, as this is of great interest for her. She reports that her symptoms already improved significantly since she has made changes in her diet. She has vitamin D deficiency and was advised to take a pill. Due to her stricture and IBD, liquid vitamin D is safer and more effective. I advised her on liquid vitamin D and this can be adjusted to 50,000 international units dosing as was advised to take. Will recheck vitamin D next month. She described whitish discoloration of her finger tips which are s/o raynaud's phenomenon. She has not findings or pictures to confirm. Nailfold capill was not abnormal. Her main risk is smoking. Reviewed risk and hazard of smoking. She is motivated to quit smoking. Her Gastroenterology team have referred to smoking cessation specialist and has had visit. She reports her main problem now is related to her stenosis with bloating. Dr. Gonzalez has referred for surgery. Per her Destination Sign Repairer notes and plan: patient does not require anti-TNF therapy at this time. They are not planning to prescribe Humira or biologic therapy and are deferring this to Rheumatology, since it is not require for her CD at this time. The patient has had good response to Humira for her . She does not feel is needed at this time, also if having surgery for her stricture soon, would defer until after surgery and cleared from infection. Offered additional evaluation and future labs for January. Will obtain LYLA screen by IFA with reflex,due to reported history of raynaud's phenomenon and darshan if will be resuming anti-TNF therapy. She will obtain at the same time of her pre-op labs for her CORS. Plan Office Visit on 01/19/23 PT ED PATIENT INFORMATION XR SACROILIAC JOINTS 2V AP PELVIS/FERGUESON XR THORACIC GENERAL 3V AP/LAT/SWIMMERS LYLA BY IFA WITH REFLEX RHEUMATOID FACTOR BL CCP ANTIBODY IGG C-REACTIVE PROTEIN (CRP) LUPUS ANTICOAG PL VITAMIN D 25 HYDROXY PTH INTACT BLD CONSULT TO OPHTHALMOLOGY RECOMMENDATION/PLAN: Reviewed indication for orders with instructions She has had recent labs per GI team, including vitamin D, CBC, CMP, hep remote, Quantiferon TB Offered referral to ophthalmology due to reported vision changes, and to exclude uveitis (no findings on gross exam) Will include lupus AC due to 2 miscarriages and reported h/o septic pelvic thrombophlebitis, with both pregnancies, was on lovenox for 6 mo), especially that she will be going for surgery. Resuming Humira in reserve, if her SpA becomes active, and after her surgery of her ileum. We have been able to use lower dose in patients who have sustained remission, such as once a month,instead of every 2 wks. She is exercising Reviewed yoga Reviewed vitamin D supplement I reviewed conservative care, wellness and healthy lifestyle, as well as the benefits of a whole foods plant based diet. I have had many patients experience significant relief in musculoskeletal pains and inflammatory arthropathy, by avoiding refined sugars and dairy and following whole foods plantbased diet. Additional time spent with patient on healthy lifestyle, healthy food and anti- inflammatory diet (with emphasis on whole plant based diet), avoiding refined carbs/sugars and processed food, appropriate exercise (stretching, cardio and strengthening), good sleep hygiene, stress mgt, and supplementing vital deficiencies and maintaining healthy wt and healthy BMI. Additional information provided with references and educational information. RAYNAUD'S PHENOMENON Long discussion with patient regarding Raynaud's phenomenon, triggering factors, avoiding cold exposure and proper precautions and warning symptoms and signs. I discussed importance of proper attire to keep extremities and core body temperature warm for optimal control of RP symptoms. If digital ulcers develop or any ischemia/gangrene, to contact us or seek prompt medical care. Discussed importance of avoiding all exposure to nicotine and sympathomimetics (such as pseudophed and other drugs), alcohol and excessive caffeine intake. Raynaud's phenomenon (RP) can often be managed with lifestyle modification. Simple measures can be implemented to reduce the frequency, severity, and duration of attacks and include avoiding cold temperatures and temperature fluctuations; alleviating stress; adopting measures to keep the body warm, including adequate clothing (eg, using multiple layers, wearing thermal underwear and a warm hat);and keeping the fingers warm (eg, by using mittens or electric hand warmers instead of gloves). Placing the hands under warm water or rotating the arms in a windmill pattern may help abort Raynaud's attacks . Recommend avoiding cold exposure. This is particularly important in the winter season, as discussed, and proper attire to keep extremities and core body temperature warm for optimal control of RP symptoms. Recommend avoiding all exposure to nicotine and sympathomimetics (such as pseudoephedrine and other drugs), alcohol and excessive caffeine intake.Both active and passive smoking shouldbe avoided to help minimize the vasoconstrictive effects of tobacco. Sympathomimetic drugs (eg, decongestants, stimulants, and anorexiants) should also be avoided. I explained, indication for calcium channel blockers (and occasionally topical NTG) if symptoms more active in cold season of not adequately controlled with conservative management. Additional more intensive therapy are available when clinically necessary. Written information provided today on Raynaud's Phenomenon. Bone Health Recommendations: -Bone Density is recommended after menopause and after age 55-60, sooner if patient has risk factors, sooner if on systemic steroid use of 3 months or more. -Vitamin D supplementation recommended, optimal dose is the dose necessary to achieve Vitamin D 25-OH blood level in range of 40-60 ng/mL. (Vitamin D supplement in international units, is the dose necessary to achieve a Vitamin D 25-OH blood level in range of 40-60 ng/mL). -Recommended daily dose of calcium: 1200mg total a day in divided doses. Calcium from dietary sources, if not sufficient, or if with h/o calcium nephrolithiasis would recommend Calcium Citrate supplement, as it is recommended to avoid caclium carbonate products, which as main dietary calcium source. The after visit summary has information on dietary calcium and instructions on reading calcium label and converting the %DV to mg. -Regular weight-bearing and muscle-strengthening exercise -Avoidance of tobacco smoking, excessive alcohol intake and excessive caffeine intake. -Fall and fracture precautions -Continued regular dental follow up visits and good dental/gum care Discussed medication dosage, usage, goals of therapy, and side effects. Additional time spent on interpretation of test results. Available laboratories an their clinical significance were reviewed with the patient. Radiographs were reviewed at todays visit. Additional time was spent outside of the patient visit to review records. today. Assessment and plan were discussed with the patient. Additional time spent with the patient to discuss their questions. Additional time spent with the patient devoted to discussing treatment strategy, planning, implementation and preventive health and wellness recommendations. -Will follow results and advise further by MyChart/Telephone or Apt. -Patient is following with Primary care physician and other providers for their other health care. Recommendations to share with referring physician/Primary care physician : Dear Dr. Landon : I had the pleasure of seeing your patient, Ms. Lucas. I have enclosed a copy of my clinic note with my assessment and recommendations for this patient. Recommendations for your consideration as you deem necessary: -She is not immune to hep B. Her hepB sAB is negative. Consider hep B vaccination, especially that she may be on immunosuppressive therapy in the future. -Recommend smoking cessation -Consider assistance with stress mgt. -Recommend considering the addition of preventive care, mind and body health and wellness and non-pharmacologic and integrative medicine approach. Consider regular graded aerobic exercise, stretchingexercises (could consider yoga or candida chi), strengthening as indicated, continue with healthy diet,maintaining healthy body weight and BMI, improve sleep hygiene/quality and restorative sleep, Vitamin D supplementation and maintaining normal vitamin D blood levels, may consider osteopathic or chiropractic gentle manipulation, and acupuncture procedures, aquatic pool therapy, could consider PT/HEP, massage therapy, stress relief and mind and spirit and psychotherapy. Research has shown that toomuch stress may have a significant impact on ones health and wellness. Also inadequate sleep and overweight may impact fatigue, pain, in addition to increased cardiovascular and cancer risk. Recommend management of any psychiatric illnesses, depression and stress with Primary care physician, Psychiatrist and psychotherapy, as deemed necessary. -Continuous follow up with Primary care physician for cardiovascular disease prevention, for age appropriate cancer screening and routine health maintenance and wellness, and infection precautions and age appropriate immunization recommended. -I have advised on wellness and the whole plant based diet, as they have been shown to prevent and reverse hear disease, prevent and treat diabetes mellitus II, decrease risk of CV disease, diabetes,metabolic syndrome, HTN, hyperlipidemia, obesity, bone loss, certain auto-immune, inflammatory, skin disorders, certain cancers, macular degeneration, certain degenerative disorders, multiple other chronic health disorders, and be in favor of general health and wellness. Thank you for allowing me to participate in the care of your patient. Return for f/u in 3 to 4 months with me or Luz Sims, Rheum MITCHELL for IBD associated IA.,sooner if needed Consultation requested by Dr. Cuco Gonzalez for an opinion regarding sacroiliitis and my final recommendations will be communicated back to the requesting physician by way of shared medical recordor letter by [place] mail. I spent a total of 85 minutes on the date of the service which included preparing to see the patient, [id number] patient care, completing clinical documentation, obtaining and/or reviewing separately obtained history, performing a medically appropriate examination, counseling and educating the pat ient/family/caregiver, ordering medications, tests, or procedures, communicating with other HCPs (not separately reported), independently interpreting results (not separately reported), communicatingresults to the patient/family/caregiver, and care coordination (not separately reported)and ykhkday21 min the following day. Franchesca Zuniga MD cc: referring: Cuco Gonzalez MD cc: PCP: Brenda Landon MD Medical Decision Making: Medical Decision Making Level: 1 - N/A documented in this encounterOhio [facility] [place] History of Present illness Narrative* Venice Bonilla, [facility] - 12/31/2022 10:30 AM EST IBD Medication Consult [facility] [place] Patient consents to pharmacy consult agreement. The initial consult was conducted by telephone with the patient where the consult agreement was explained. The patient may decline or cancel the agreement at any time. After consideration, the patient consented to the pharmacy consult agreement and agreed to allow medications be collaboratively managed by a pharmacist. Patient Name: Jocelyne Lucas IBD Provider: Dr. Gonzalez December 31, 2022 Reason for consult: smoking cessation and reconciliation Jocelyne Lucas is a 37 year old Unavailable female referred to PharmD. Saw MITCHELL Cain on 12/10/22. Referred for smoking cessation. Scheduled to meet with Jocelyne via VV, but completed visit over phone instead. She reports: - socially smokes - at most maybe 1/2 ppd. 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 - has quit in past for two pregancies and previously; feels she needs to just quit and have mental mindset for this - aunt is 53 yo and quit with patch - hoping for medication to help jumpstart this process Med rec - only taking vitamin D 50,000 units PO weekly and prebiotics. Has tried taking simethicone for severe bloating, feels it makes sxs worse. SOCIAL HISTORY Tobacco use: social smoker, 1/2 ppd at most (when with people, drinking) - hate to smoke before noon, not smoking at work Type of tobacco Cigarettes: Yes Pipe: No Cigars: No Smokeless: No E-cigarettes: No Other tobacco product (strips, hookah, etc): No Duration of tobacco use: 15 years [place] Assessment How soon after waking do you smoke your first cigarette? 31-60 mins (1) Do you find it difficult to refrain from smoking in places where it is forbidden (e.g., jainism, library)? No (0) Which cigarette would you hate to give up? any other (0) How many cigarettes a day do you smoke? <10 (0) Do you smoke more often in the morning? No (0) Do you smoke even if you are sick in bed most of the day? No (0) Score: 1 (low dependence) Prior Quit History: Have you quit in the past? Yes Approximate date of last quit attempt: How long did you quit at that time: What was the longest period of time quit in the past and when was this? What caused the relapse? Stress What worked in past quit attempts? 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 No past surgical history on file. Current Outpatient Medications Medication Sig Dispense Refill cholecalciferol, Vitamin D3, (VITAMIN D3) 1,250 mcg (50,000 unit) cap capsule Take 1 capsule by mouth one time a week. 4 capsule 2 Simethicone 125 mg chewable tablet Take 1 tablet by mouth every 6 hours as needed. 120 tablet 2 adalimumab (HUMIRA,CF, PEN) 40 mg/0.4 mL pen kit Inject 40 mg subcutaneously every 2 weeks. No current facility-administered medications for this visit. ALLERGIES Allergen Reactions Morphine Other: See Comments Tramadol Other: See Comments allergy PERTINENT VITALS AND LABS Weight/BMI: Wt: 65.3 kg (144 lb) BMI: 25.51 kg/(m^2) TB: No results found for: QTBGOLD TPMT: No results found for: LTPMTR EBV: No results found for: EBVPCR Calprotectin stool/inflammation: No results found for: CALPRO No results found for: CRP, ESR CBC: WBC (k/uL) Date Value 12/10/2022 9.31 Hemoglobin (g/dL) Date Value 12/10/2022 14.8 Hematocrit (%) Date Value 12/10/2022 44.9 MCV (fL) Date Value 12/10/2022 94.7 Platelet Count (k/uL) Date Value 12/10/2022 353 IRON PANEL: Ferritin (ng/mL) Date Value 12/10/2022 85.5 Iron (ug/dL) Date Value 12/10/2022 53 TIBC (ug/dL) Date Value 12/10/2022 338 Transferrin Saturation (%) Date Value 12/10/2022 15.7 RENAL/HEPATIC: BUN (mg/dL) Date Value 12/10/2022 6 (L) Creatinine (mg/dL) Date Value 12/10/2022 0.79 Albumin (g/dL) Date Value 12/10/2022 4.7 Bilirubin, Total (mg/dL) Date Value 12/10/2022 0.3 AST (U/L) Date Value 12/10/2022 23 ALT (U/L) Date Value 12/10/2022 13 VITAMIN B12 & D25 Vitamin B12 Date Value Ref Range Status 12/10/2022 405 232 - 1,245 pg/mL Final Vitamin D 25 Hydroxy (ng/mL) Date Value 12/10/2022 22.8 (L) LIPID PANEL: No results found for: CHOL, HDL, LDL, TG ASSESSMENT & PLAN Reasons to quit: health Barriers to quitting: stress, environment Readiness to quit: would like to quit this month Smoking Cessation - Established following quit date: this weekend - Motivated to quit, would like pharmacologic option to help jumpstart this process. Requested patch but nicotine dependence is extremely low and would be more meaningful to try NRT lozenge first. Ifthat doesn't work, can then consider patch. Rx for lozenge sent. Weeks 1-6: 1 lozenge q1-2hr PRN; Weeks 7-9: 1 lozenge q2-4hr PRN; Weeks 10-12: 1 lozenge q4-8hr PRN. - Reviewed non-pharmacological strategies including reinforcement of smoking effects on Crohn's andsetting up motivational reminders to reinforce need to stop smoking - Will continue to follow and provide support. Follow up 01/07/23 Jocelyne Lucas endorses understanding to above. Denies other questions and concerns and is aware to contact us in future if needed. [place] Bonilla, PharmD, BCACP, MS IBD Clinical Pharmacist Interventions made: medication reconciliation and Smoking Cessation Time spent (mins): 30 documented in this encounterOhio [facility]02-01-2023 Miscellaneous Notes* Telephone Encounter - Elda Sutton Research Coordinator - 12/29/2022 2:19 PM EST Called patient to remind her about her missed ePRO and fecal calprotectin test for the STARWP3 study. Pt didn't answer , left voice message . documented in this encounterOhio [facility] Hospital01-27-2023 History of Present illness Narrative* RT Maegan(R) - 12/24/2022 11:15 AM EST Radiology Service Progress Note PATIENT NAME: Jocelyne Lucas DATE OF SERVICE: December 24, 2022 TIME: 11:08 AM PATIENT IDENTITY VERIFICATION COMPLETED USING TWO (2) IDENTIFIERS: Name and Date of confirmedby patient verbally. FALL SCREENING: Has the patient had 2 falls in the last year or 1 fall with injury or currently using an Ambulatory Assistive Device (Walker, Cane, Wheelchair, Crutches, etc.)? No PATIENT GENDER DATA: Female. status: : No status: NO. PATIENT RELEVANT IMPLANT DATA REVIEWED: Not Applicable RADIOLOGY DEPARTMENT: Bone Density PERIPHERAL IV DATA: Not applicable SIGNED BY: RT Maegan(R) December 24, 2022 11:08 AM documented in this encounterOhio Valley Surgical Hospital01-13-2023 Instructions* Patient Instructions* Roro Cain APRN.CNP - 12/10/2022 10:39 AM EST BONE MINERAL DENSITY PATIENT INSTRUCTIONS Bone mineral density testing measures the amount of calcium in certain parts of your bones. This information determines how strong your bones are. The test is used to detect osteoporosis, a disease in which the bone's mineral content and density are low, increasing a person's risk of fractures. Thelumbar spine (lower back) and the hip are the skeletal sites usually examined. For the test, remember that: 1. You cannot take this test if you are . 2. Eat a normal diet on the day of the test. 3. Take your medications as you normally would. 4. DO NOT take calcium supplements (such as Tums) for 24 hours before the test. 5. On the day of the test, leave valuables (jewelry or credit cards) at home. 6. The test should be performed prior to oral, rectal or IV contrast studies, or at least 7 days after any of these studies. For the test, you may be asked to wear a hospital gown. You will lie on your back, on a padded table, in a comfortable position. Generally, you can resume your usual activities immediately. documented in this encounterOhio Valley Surgical Hospital01-13-2023 History of Present illness Narrative* Roro Cain APRN.CNP - 12/10/2022 10:00 AM EST .Follow Up Visit SUBJECTIVE Jocelyne Lucas [id number] presents to the clinic today with her for follow upof Crohn's disease. Last seen on 07/05/[address] Gonzalez. 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 Per faxed records from [place] when seen 10/2019 by GI there: Diagnosed with CD in 2010 via serology. C-scope 09/2013 pathology showed granuloma in TI, minimally active chronic colitis in ICV, mildly active chronic colitis in sigmoid colon with granuloma. Treated with sulfalazine and Lialda but discontinued. Started on Humira in 2015 mainly for by Rheum at [facility], was on it for a year then stopped to assess symptoms off of it, but restarted 07/2018. Antibodies checked and negative 08/2018. Had a flare in 2018 while she was with up to 10 watery bloody BMs a day, treated with course of Prednisone 07/2019. Also had bloating for which she was prescribed flagyl and symptoms resolved.Labs [id number] provided significant for elevated CRP to 5 in 10/2017, and Fecal calpro 90 in 05/2018. Last C-scope ~2017 per pt, records unavailable, CD did not look active, however she has a stricture in the ileocolonic region, never needed dilation. Ms. Lucas is here today as her local GI is retiring, from [place], [place]. She follows with Rheumin [facility], planning to move all care here. Symptoms that led to the diagnosis of CD were mainly abdominal pain. Humira is first biologic she's been on. Was on it weekly for about 4 years, has been usingit as needed for the past year. Last dose was a couple of weeks ago (06/23/2022), was stressed and fe lt CD flare symptoms therefore used it. Has no Humira injections left. Kept symptoms at bay with lifestyle changes (exercise, better diet). Hasn't needed steroids for CD flare in >1 year, hasn't been hospitalized in ~8 years. Most significant GI symptom today is bloating. She is on a prebiotic daily & uses GasX PRN, helps some. Has Bentyl prn. Most recent GI tract testing: glucose breath test (08/2022)- negative; MRe (07/2022)- active stricturing disease involving a 4 cm segment of the TI; Colonoscopy (12/03/2022) with a non- traversable (despite multiple attempts) ileocecal valve d/t intrinsic severe stenosis. +ve joint pain in lower back related to , no eye disease, no significant skin disease but prior to CD flares she has a scaly erythematous rash on her feet (plantar or extensor surface), usually resolves with topical treatment, diagnosed as eczema by Derm. No oral ulcers. Changes and test results since last visit: Jocelyne feels okay from a Crohn's perspective. Her most bothersome symptoms currently are bloatingand back pain (chronic d/t ankylosing spondylitis). She used to take weekly Humira for the ankylosing spondylitis but has been out of it for ~6 months. Though she says it was prescribed as weekly, she will only take it on a PRN basis- she is requesting a refill to restart this medication d/t her . Also notes that she joined a gym and has been exercising more, which she thinks is helping with her chronic back pain. Current Clinical Symptoms # of bowel movements daily: 2 (pt reported normal) # of liquid stools daily: 0 Consistency: soft, formed Bloody bowel movements: yes- once every 2 months, BRB in the toilet bowl and on the TP; thinks she has 1 hemorrhoid. Urgency: no Abdominal pain: no Abdominal distention: yes- constant bloating regardless of what she eats, even notices it when she is fasting; GasX helps Nausea/vomiting: no Appetite: good Weight loss over last 3 months: no Weight today is 145 lbs, which is stable. IBD HISTORY TEMPLATE Diagnosis Crohn's Disease: Date of diagnosis (year): 2012 Phenotype Location affected: ileum colon Behavior: inflammatory Perianal disease: no Prior Medications/Reason for Switch Surgery: No: Thiopurines: No Methotrexate: No Biologics: No Small molecules: No Current Medications None Was taking Adalimumab 40 mg SQ Q weekly (pt reports) for her - LD: 6 months ago - does not take it regularly, only on a PRN basis Prior Complications and Extraintestinal Manifestations Clostridium difficile: no Thrombosis: no Ocular (Uveitis, Episcleritis): no Dermatologic (Pyoderma gangrenosum, Erythema nodosum): no Arthropathy/Arthralgia: yes Oral ulcers: no Primary Sclerosing Cholangitis: no Labs TB Status: Negative in 2018 Hepatitis B Status: Unknown TPMT: Unknown Current Outpatient Medications Medication Sig Dispense Refill adalimumab (HUMIRA,CF, PEN) 40 mg/0.4 mL pen kit Inject 40 mg subcutaneously every 2 weeks. No current facility-administered medications for this visit. ALLERGIES Allergen Reactions Morphine Other: See Comments Tramadol Other: See Comments allergy No past surgical history on file. Personal Habits: -Smoking: current daily smoker, ~1 PPD x 18 years- interested in smoking cessation education -ETOH: monthly, 3-4 drinks/sitting -Illegal drug use/marijuana: no -NSAIDs: no -Recent antibiotics: no PHYSICAL EXAMINATION BP 137/68 Pulse 98 Temp (Src) 98 (Temporal) Ht 5' 3 (1.60m) Wt 145 lb (65.8kg) SpO2 98% LMP 11/28/2022 BMI 25.69 kg/(m^2). General Appearance: alert, oriented x 3, pleasant and in no acute distress, well-hydrated, well nourished Heart:regular rate and rhythm, no murmurs or gallops Abdomen: Not distended. Normal bowel sounds. Soft and non-tender. No masses or organomegaly. Skin: no rashes or lesions Lymph: No cervical or supraclavicular adenopathy. REVIEWED ITEMS Recent Labs Component Latest Ref Rng & Units 07/05/2022 Protein, Total 6.3 - 8.0 g/dL 7.2 Albumin 3.9 - 4.9 g/dL 4.7 Calcium 8.5 - 10.2 mg/dL 9.5 Bilirubin, Total 0.2 - 1.3 mg/dL 0.5 Alkaline Phosphatase 34 - 123 U/L 61 AST 13 - 35 U/L 18 ALT 7 - 38 U/L 8 Glucose 74 - 99 mg/dL 96 BUN 7 - 21 mg/dL 8 Creatinine 0.58 - 0.96 mg/dL 0.73 Sodium 136 - 144 mmol/L 140 Potassium 3.7 - 5.1 mmol/L 4.6 Chloride 97 - 105 mmol/L 105 CO2 22 - 30 mmol/L 26 Anion Gap 9 - 18 mmol/L 9 eGFR >=60 mL/min/1.73m 107 WBC 3.70 - 11.00 k/uL 6.35 RBC 3.90 - 5.20 m/uL 4.62 Hemoglobin 11.5 - 15.5 g/dL 14.4 Hematocrit 36.0 - 46.0 % 45.2 MCV 80.0 - 100.0 fL 97.8 MCH 26.0 - 34.0 pg 31.2 MCHC 30.5 - 36.0 g/dL 31.9 RDW-CV 11.5 - 15.0 % 13.1 Platelet Count 150 - 400 k/uL 245 MPV 9.0 - 12.7 fL 10.1 Absolute nRBC <0.01 k/uL <0.01 Iron 41 - 186 ug/dL 103 TIBC 232 - 386 ug/dL 331 Transferrin Saturation 15.0 - 57.0 % 31.1 Ferritin 14.7 - 205.1 ng/mL 68.0 Vitamin D 25 Hydroxy 31.0 - 80.0 ng/mL 35.8 Vitamin B12 232 - 1,245 pg/mL 284 Drug Level Monitoring Component Latest Ref Rng & Units 07/05/2022 Adalimumab Activity >=0.65 ug/mL 4.45 Adalimumab Neutralizing Antibody Not Detected Not Detected EER Adalimumab See Note Last Imaging MRe (08/14/2022) Impression: STRICTURE WITH IMAGING FINDINGS OF ACTIVE INFLAMMATION INVOLVING AN APPROXIMATELY 4 CM SEGMENT OF TERMINAL ILEUM. PENETRATING DISEASE: ABSENT. BILATERAL SACROILIITIS. Last Procedure Glucose Breath Test (09/27/2022) Findings: Testing Solution: 75 g Glucose - Given Hydrogen (H2) Baseline: 2 ppm 15 min: 2 ppm 30 min: 3 ppm 45 min: 2 ppm 60 min: 2 ppm 75 min: 2 ppm 90 min: 2 ppm Methane (CH4) Baseline: 0 ppm 15 min: 0 ppm 30 min: 0 ppm 45 min: 0 ppm 60 min: 0 ppm 75 min: 0 ppm 90 min: 0 ppm INTERPERTATION: Negative for bacterial overgrowth PHYSICIAN: Julissa Galaviz MD Last Endoscopy Colonoscopy (12/03/2022) - Dr. Abreu Findings: The perianal and digital rectal examinations were normal. The ileocecal valve with intrinsic severestenosis that was non-traversed despite multiple attempts. A 4 mm polyp was found in the sigmoid colon. The polyp was sessile. The polyp was removed with a cold biopsy forceps. Resection and retrieval were complete. Verification of patient identification for the specimen was done. The exam was otherwise without abnormality. Biopsies were taken with a cold forceps in the descending colon, in the transverse colon and in the ascending colon for histology. A prolonged attempt was made to intubate the TI which was briefly seen and scared down to 2-3 mm. Unable to intubate the TI due to scarring. Pathology: A. Sigmoid colon polyp, biopsy: - Colonic mucosa with minimal hyperplastic changes, negative for dysplasia. B. Random colon, biopsy: - Colonic mucosa with no diagnostic abnormality Assessment IMPRESSION (copied from previous notes and reflects today's medical decision making): Jocelyne Lucas is a 37 year old female with PMHx of Crohn's since 2012 (per notes had abnormal blood serology in 2010) and also HLA-B27+ . From a Crohn's standpoint, she has ileal and sigmoidcolon involvement; no prior surgery. She was initially treated with intermittent prednisone and sulf asalazine/mesalamine. She has been on Humira since 2017 (also on it from [id number])- started mostlyfor . However, she only uses it PRN- in fact has only taken it once in the past year in 05/2022. Due to c/o prominent bloating we ordered a glucose breath test-08/2022 (negative) and MRe-07/2022 withactive stricturing disease involving a 4 cm segment of the TI. She recently had a colonoscopy (12/03/2022) with a non-traversable (despite multiple attempts) ileocecal valve d/t intrinsic severe stenosis. Today she continues to feel well from a Crohn's perspective, with her only symptom being a constantbloat (likely related to her stricture). She is open to surgery if this is the best route for her case. She is also interested in restarting Humira to help with her - recommended discussing this ather meeting with Rheum in 12/2022 since the drug would be mainly for and not Crohns, especially since she will likely be needing surgery from a CD standpoint. Reviewed the plan & HM topics as outlined below. Will discuss with Dr. Gonzalez. Health Maintenance: - Skin: gets regular skin/mole checks - Bones: never had a DXA scan, + hx of steroid use- will order. - Vaccines: Covid (prefers not to answer), Pneumonia (no), Flu (prefers to avoid it), Tdap (UTD), Hep A/B (non-immune), Shingrix (no), HPV (no). Deferred updated vaccinations. - Women's health: up to date on PAP testing - Interested in IBD RD, but deferred IBD Psych services at this time PLAN - Advised to follow up with Rheumatology regarding the initiation of Humira - Labs - HM issues addressed as above - Consult to [facility] (Dr. Shaffer) for surgical evaluation of known stricture - Consult to Dr. Venice Bonilla for smoking cessation education - Consult to IBD RD for nutritional evaluation and management - Seeing Rheumatology for ankylosing spondylitis on 01/19/2023 - Follow up with Dr. Goznalez in 4-6 months I spent a total of 43 minutes on the date of the service which included preparing to see the patient, [id number] patient care, completing clinical documentation, obtaining and/or reviewing separately obtained history, performing a medically appropriate examination, counseling and educating the pat ient/family/caregiver, ordering medications, tests, or procedures, and communicating with other HCPs (not separately reported). Roro Cain APRN.CNP December 10, 2022 12:33 PM Addendum Spoke with Dr. Gonzalez regarding her case. He recommends that she meet with Dr. Shaffer (LESLY) to discuss surgical options regarding her stricture- not an emergent situation. Also recommends she followup with Rheum regarding restarting Humira. documented in this encounterOhio [facility]01-06-2023 Nurse Note* Ashia Downey RN - 12/03/2022 9:58 AM EST PRE OP LEARNING ASSESSMENT PROCEDURE/SURGERY: GI PROCEDURES: Colonoscopy READINESS TO LEARN COGNITIVE ABILITY: Alert and oriented MOTIVATION TO LEARN: Eager Interested FAMILY SUPPORT: High - Very involved in pt care PATIENT LEARNS BEST BY: Individual Instruction Written Instruction - Hand-outs FACTORS AFFECTING LEARNING: None PHYSICAL LIMITATIONS AFFECTING LEARNING: None Electronically Signed By: Ashia Downey RN In Department: GASTROENTEROLOGY * Rivka Dan RN - 12/03/2022 8:05 AM EST PRE OP LEARNING ASSESSMENT PROCEDURE/SURGERY: GI PROCEDURES: Colonoscopy READINESS TO LEARN COGNITIVE ABILITY: Alert and oriented MOTIVATION TO LEARN: Interested FAMILY SUPPORT: High - Very involved in pt care PATIENT LEARNS BEST BY: Individual Instruction Written Instruction - Hand-outs Verbal Instruction FACTORS AFFECTING LEARNING: None PHYSICAL LIMITATIONS AFFECTING LEARNING: None Electronically Signed By: Rivka Dan RN In Department: GASTROENTEROLOGY documented in this encounterOhio Valley Surgical Hospital12-29-2022 Miscellaneous Notes* Telephone Encounter - Ana Paula Murray RN - 11/25/2022 2:06 PM EST Topic: Pre-Procedure Message Attempted to reach the patient at the contact number that they provided [phone] (home) . 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 Failure to have a responsible adult accompany the patient to their procedure appointment prevents the useof sedation or anesthesia for their procedure; and can result in cancellation of the procedure Clear liquids the day before the procedure, stop all liquids 4 hours before the procedure Instructions to contact their primary care provider regarding their medications and which medications to stop in preparation for their procedure Instructions to completely read and follow the written instructions that they recieved regarding their procedure. Number to call with questions or concerns [phone] Number to call to cancel their procedure [phone] Ana Paula Murray RN documented in this encounterOhio Valley Surgical Hospital11-30-2022 Miscellaneous Notes* Telephone Encounter - Elda Sutton, Research Coordinator - 10/27/2022 2:20 PM EST Called patient to remind her about her missed ePRO and fecal calprotectin test for the STARWP3 study. Pt didn't answer , left voice message . documented in this [facility]10-28-[facility] History of Present illness Narrative* Christina Cerna RN - 09/24/2022 11:43 AM EDT Name: Jocelyne Lucas [facility]#: [id number] Date: 09/24/2022 GLUCOSE - BREATH HYDROGEN & METHANE TEST Indication: Bloating, Abdominal Pain, and Diarrhea Pain Assessment: No pain is present. Test Preparation: NPO for since last evening. No antibiotics or Pepto Bismol have been taken during the last 4 weeks. No colonscopy within the last 3-4 weeks A 75g Glucose solution was given. Breath samples were taken every 15 minutes for 1 hour and 30 minutes. The GLUCOSE breath hydrogen/methane test was completed. .Christina Cerna RN documented in this [facility]10-03-[facility] Miscellaneous Notes* Telephone Encounter - Elda Sutton Research Coordinator - 08/30/2022 2:17 PM EDT Called patient to remind her about her missed ePRO and fecal calprotectin test for the STARWP3 study. Pt didn't answer , left voice message . documented in this [facility]09-19-2022 Miscellaneous Notes* Telephone Encounter - Marsha Butts Coordinator - 08/16/2022 3:00 PM EDT Called patient to confirm MRE eligibilty for STARWP3 study and remind her about her missed ePRO on [employer] . Pt was aware of the login process on her [employer] account and she said she will fill out the daily ePRO .Also, She's aware of receiving stool kit for fecal calprotectin by mail . documented in this [facility]09-16-2022 History of Present illness Narrative* Kelley Menchaca RN - 08/13/2022 7:30 PM EDT Radiology Service Progress Note DATE OF SERVICE: August 13, 2022 TIME: 6:43 PM PATIENT WEIGHT: 150 LBS PATIENT IDENTITY VERIFICATION COMPLETED USING TWO (2) STANDARD IDENTIFIERS: Name and Date of confirmed by patient verbally. FALL SCREENING: Has the patient had 2 falls in the last year or 1 fall with injury or currently using an Ambulatory Assistive Device (Walker, Cane, Wheelchair, Crutches, etc.)? No PATIENT GENDER DATA: Female. status: : No status: NO. ALLERGIES: Reviewed and unchanged CONTRAST ALLERGY: No EXAM: MRI - CONTRAST TYPE: GROUP II IV SITE: Ambulatory: A peripheral IV was started in the Left antecubital site with a Angio cath: 22gauge. and A Saline lock was inserted per protocol IV SITE APPEARANCE: Clean,Dry and Intact SIGNATURE: Kelley Menchaca RN PATIENT NAME: Jocelyne Lucas DATE: August 13, 2022 TIME: 6:43 PM Radiology Service Progress Note PATIENT NAME: Jocelyne Lucas DATE OF SERVICE: August 13, 2022 TIME: 6:45 PM PATIENT IDENTITY VERIFICATION COMPLETED USING TWO (2) STANDARD IDENTIFIERS: Name and Date of confirmed by patient verbally. PATIENT GENDER DATA: Female. status: : No status: NO. PATIENT RELEVANT IMPLANT DATA REVIEWED: Yes ALLERGIES: Reviewed and unchanged MEDICATIONS REVIEWED: YES PROCEDURE: Enterography Oral contrast prep: Breeza (2) 500ml bottles per protocol and Glucagon 1 mgIV IV SITE: Ambulatory: A peripheral IV was started in the Left antecubital site with a Angio cath: 22gauge. and A Saline lock was inserted per protocol PERIPHERAL IV ACCESS: Discontinued PATIENT TOLERATED PROCEDURE: Without incident. PATIENT DISCHARGED TO: Home/Self Care SIGNED BY: Kelley Menchaca RN August 13, 2022 6:45 PM documented in this encounterOhio Valley Surgical Hospital09-16-2022 History of Present illness Narrative* Kelley Menchaca RN - 08/13/2022 6:51 PM EDT PATIENT EDUCATION RADIOLOGY TOPIC: Procedure/Surgery: MRE READINESS TO LEARN COGNITIVE ABILITY: Alert and oriented MOTIVATION TO LEARN: Interested FAMILY SUPPORT: Unable to assess - Family not present INSTRUCTION PROVIDED TO: Patient PATIENT LEARNS BEST BY: Individual Instruction Verbal Instruction FACTORS AFFECTING LEARNING: None PHYSICAL LIMITATIONS AFFECTING LEARNING: None LEARNING RESPONSE Procedure: Angio Procedures: Radiology Procedures: MRE METHOD OF INSTRUCTION: Individual instruction Verbal instruction PATIENT / FAMILY RESPONSE: Verbalizes understanding of: Pre Procedure Instructions Post Procedure Instructions FOLLOW-UP PLAN: Complete - No need for follow-up REFERRAL (RECOMMENDATION): None Electronically Signed By Kelley Menchaca RN documented in this encounterOhio Valley Surgical Hospital09-16-2022 History of Present illness Narrative* Josh Millard - 08/13/2022 6:15 PM EDT INFORMED CONSENT STUDY TITLE: Prospective Observational Study to Validate a Novel PRO Tool and Imaging Index Items in Stricturing Crohn s Disease IRB NO.: [id number] Sponsor: [facility] DRUG PURCHASER: Dr. Jimy Barrios M.D. Patient [facility] Research Contact Information: Josh Millard E-mail: [email or web address] Nadine Davies E-mail: [email or web address] The Patient was provided the study informed consent for the Prospective Observational Study to Validate a Novel PRO Tool and Imaging Index Items in Stricturing Crohn s Disease study. Prior to distributing the informed consent, the patient's medical record was reviewed for eligibility and evidence of participation in other clinical research studies. Patient has confirmed understanding of the study procedures and requirements. The research plan, including potential risks/benefits, and the importance of follow-up compliance were explained within the consent. Roles of the research study personnel to be involved and the financial responsibilities of the patient regarding procedures, and all study related questions have been addressed or answeredat this time. Contact information for the study personnel and the emergency/after hours was provided to patient. Patient confirms understanding and voluntarily agrees to proceed with this study. Consent willingly signed by patient and consenting coordinator. Patient will be provided a copy of signed informed consent. Time: 05/12PM Date: 08/16/2022 Consent Obtained by: Elda Sutton documented in this encounterOhio Valley Surgical Hospital09-16-2022 History of Present illness Narrative* Elda Sutton Research Coordinator - 08/13/2022 6:15 PM EDT INFORMED CONSENT STUDY TITLE: Prospective Observational Study to Validate a Novel PRO Tool and Imaging Index Items in Stricturing Crohn s Disease IRB NO.: [id number] Sponsor: [facility] DRUG PURCHASER: Dr. Jimy Barrios M.D. Patient [facility] Research Contact Information: Josh Millard E-mail: Elda Sutton E-mail: [email or web address] The Patient was provided the study informed consent for the Prospective Observational Study to Validate a Novel PRO Tool and Imaging Index Items in Stricturing Crohn s Disease study. Prior to distributing the informed consent, the patient's medical record was reviewed for eligibility and evidence of participation in other clinical research studies. Patient has confirmed understanding of the study procedures and requirements. The research plan, including potential risks/benefits, and the importance of follow-up compliance were explained within the consent. Roles of the research study personnel to be involved and the financial responsibilities of the patient regarding procedures, and all study related questions have been addressed or answeredat this time. Contact information for the study personnel and the emergency/after hours was provided to patient. Patient confirms understanding and voluntarily agrees to proceed with this study. Consent willingly signed by patient and consenting coordinator. Patient will be provided a copy of signed informed consent. Time: 18:15 Date: 08/13/2022 Consent Obtained by: Elda Sutton Research Coordinator documented in this encounterOhio Valley Surgical Hospital09-16-2022 History of Present illness Narrative* RT Keira(R) - 08/13/2022 6:00 PM EDT Radiology Service Progress Note PATIENT NAME: Jocelyne Lucas DATE OF SERVICE: August 13, 2022 TIME: 8:26 PM PATIENT IDENTITY VERIFICATION COMPLETED USING TWO (2) IDENTIFIERS: Name and Date of confirmedby patient verbally and Name and Date of confirmed by identification band. FALL SCREENING: Has the patient had 2 falls in the last year or 1 fall with injury or currently using an Ambulatory Assistive Device (Walker, Cane, Wheelchair, Crutches, etc.)? No PATIENT GENDER DATA: Female. status: : No status: NO. PATIENT RELEVANT IMPLANT DATA REVIEWED: Yes RADIOLOGY DEPARTMENT: MR; Exam(s) Completed: Body: enterography PERIPHERAL IV DATA: Site assessment: Clean,Dry and Intact, Site disposition Left in for next appointment SIGNED BY: RT Keira(R) August 13, 2022 8:26 PM documented in this encounterOhio [facility]08-[facility]22 Instructions* Patient Instructions* Jennifer Flores MD - 07/05/2022 8:44 AM EDT Images from the original note were not included. Bowel Preparation Instructions for: Golytely, Nulytely, Trilyte or Colyte (polyethylene glycol 3350and electrolytes) IF YOU DO NOT FOLLOW THESE DIRECTIONS, YOUR COLONOSCOPY WILL BE CANCELLED. Venegas Instructions: Your bowel must be empty so that your doctor can clearly view your colon. Follow all of the instructions in this handout EXACTLY as they are written. Do NOT eat any solid food the ENTIRE day before your colonoscopy. Drink only clear liquids. Buy your bowel preparation at least 5 days before your colonoscopy. TRANSPORTATION on the Day of Your Exam A responsible person MUST be present with you at Check In prior to your colonoscopy and REMAIN in the endoscopy area until you are discharged. You are NOT ALLOWED to drive, take a taxi or bus, or leave the Endoscopy Center ALONE. If you do not have a responsible farm truck driver (family member or friend) with you to take you home, your exam cannot be done with sedation and will be cancelled. Please bring a list of all of your current medications, including any Over-the Counter medications with you. Medications If you take insulin, diabetic medications or blood thinners such as Coumadin (warfarin), Plavix (clopidogrel), Ticlid (ticlopidine hydrochloride), Agrylin (anagrelide), Xarelto (Rivaroxaban), Pradaxa(Dabigatran), Eliquis (Apixaban), and Effient (Prasugrel). You MUST call the doctors who orders those medicines for instructions on altering the dosage before your colonoscopy. All other medications should be taken the day of the exam with a sip of water including ASPIRIN. Five (5) Days Before Your Colonoscopy Do NOT take medicines that stop diarrhea - such as Imodium, Kaopectate, or Pepto Bismol. Do NOT take fiber supplements - such as Metamucil, Citrucel, or Perdiem. Do NOT take products that contain iron - such as multi-vitamins (the label lists what is in the products). Do NOT take Vitamin E. Buy the prescription bowel preparation solution at your local pharmacy or drugstore pharmacy. 10/2019 Bowel Preparation Instructions for: Golytely, Nulytely, Trilyte or Colyte (polyethylene glycol 3350and electrolytes) Three (3) Days Before Your Colonoscopy Do NOT eat high-fiber foods - such as popcorn, beans, seeds (flax, sunflower, quinoa), multigrain bread, nuts, salad/vegetables, or fresh and dried fruit. One (1) Day Before Your Colonoscopy Only drink clear liquids the ENTIRE DAY before your colonoscopy. Do NOT eat any solid foods. Drink at least 8 ounces of clear liquids every hour after waking up. The clear liquids you can drink include: Clear Liquid (NO RED LIQUIDS) DO NOT DRINK Gatorade, Pedialyte or Powerade Clear broth or bouillon Coffee or tea (no milk or non-dairy creamer) Carbonated and non-carbonated soft drinks Brandon-Aid or other fruit flavored drinks Strained fruit juices (no pulp) Jell-O, popsicles, hard candy Water Alcohol Milk or non-dairy creamers Noodles or vegetables in soup Juice with pulp Liquid you cannot see through Do not use tobacco/vaping products The bowel preparation solution will be consumed in two parts. Mix the solution the evening before your colonoscopy and refrigerate before drinking. You may add the flavor pack that came with the bowel preparation. Do NOT add ice, sugar or any other flavorings to the solution. Part 1 At 6:00 PM - Evening before your colonoscopy Drink an 8-oz glass of bowel preparation every 10 minutes for a total of 8 glasses. You may continue to drink clear liquids until midnight. Part 2 On the day of your colonoscopy you may drink clear liquids up to (three) 3 hours before your procedure. 4 1/2 hours before your colonoscopy Drink an 8-oz glass of bowel preparation every 10 minutes for a total of 8 glasses. Fifteen (15) minutes later, drink an 8-oz glass of clear liquids every 15 minutes for a total of 2 glasses. You may continue to drink clear liquids up to (three) 3 hours before your exam. 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 Per faxed records from [place] when seen 10/2019 by GI there: Diagnosed with CD in 2010 via serology. C-scope 09/2013 pathology showed granuloma in TI, minimally active chronic colitis in ICV, mildly active chronic colitis in sigmoid colon with granuloma. Treated with sulfalazine and Lialda but discontinued. Started on Humira in 2015 mainly for by Rheum at [facility], was on it for a year then stopped to assess symptoms off of it, but restarted 07/2018. Antibodies checked and negative 08/2018. Had a flare in 2018 while she was with up to 10 watery bloody BMs a day, treated with course of Prednisone 07/2019. Also had bloating for which she was prescribed flagyl and symptoms resolved.Labs [id number] provided significant for elevated CRP to 5 in 10/2017, and Fecal calpro 90 in 05/2018. Last C-scope ~2017 per pt, records unavailable, CD did not look active, however she has a stricture in the ileocolonic region, never needed dilation. Ms. Lucas is here today as her local GI is retiring, from [place], [place]. She follows with Rheumin [facility], planning to move all care here. Symptoms that led to the diagnosis of CD were mainly abdominal pain. Humira is first biologic she's been on. Was on it weekly for about 4 years, has been usingit as needed for the past year. Last dose was a couple of weeks ago (06/23/2022), was stressed and fe lt CD flare symptoms therefore used it. Kept symptoms at bay with lifestyle changes (exercise, better diet). Hasn't needed steroids for CD flare in >1 year, hasn't been hospitalized in ~8 years. Most significant GI symptom today is bloating. She is on a prebiotic daily, helps some. Only has 2 Humira injections left. Has Bentyl prn. +ve joint pain in lower back related to , no eye disease, no significant skin disease but prior to CD flares she has a scaly erythematous rash on her feet (plantar or extensor surface), usually resolves with topical treatment, diagnosed as eczema by Derm. No oral ulcers. Denies NSAIDs Former smoker- quit 10 years ago (JPA) IBD HISTORY TEMPLATE Diagnosis Crohn's Disease: Date of diagnosis (year): 2012 Phenotype Location affected: ileum colon Behavior: inflammatory Perianal disease: no Prior Medications/Reason for Switch Surgery: No: Thiopurines: No Methotrexate: No Biologics: No Small molecules: No Current Medications Adalimumab- only 1 dose in the past year (JPA) Prior Complications and Extraintestinal Manifestations Clostridium difficile: no Thrombosis: no Ocular (Uveitis, Episcleritis): no Dermatologic (Pyoderma gangrenosum, Erythema nodosum): no Arthropathy/Arthralgia: yes Oral ulcers: no Primary Sclerosing Cholangitis: no Labs TB Status: Negative in 2018 Hepatitis B Status: Unknown TPMT: Unknown Current Clinical Symptoms # of bowel movements daily: 2 # of liquid stools daily: 0 Consistency: formed Bloody bowel movements: no Urgency: no Abdominal pain: no Abdominal distention: yes- has chronic bloating with visible distention ( I look 7 months ); worse after eating; avoids certain foods (JPA) Nausea/vomiting: no Weight loss over last 3 months: no General well-being: very well No chronic back pain (JPA) No past surgical history on file. No past medical history on file. Current Outpatient Medications Medication Sig Dispense Refill adalimumab (HUMIRA,CF, PEN) 40 mg/0.4 mL pen kit Inject 40 mg subcutaneously every 2 weeks. No current facility-administered medications for this visit. Morphine and Tramadol PERSONAL HABITS Tobacco: No Alcohol: No PAST MEDICAL HISTORY Colon polyps:No Colon cancer: No Other cancer:No Radiation / Chemotherapy:No Crohn's disease / Ulcerative colitis: Yes High cholesterol or triglycerides:No Ulcers: No Gallstones:No Hepatitis / jaundice: No Heart Disease: No Lung Disease:No Liver problems:No Thyroid disease: No Kidney stones:No Pancreatitis:No Diabetes:No Arthritis:No Rheumatic fever:No Gastrointestinal bleeding:No Depression or other mental illness:No GI SPECIFIC ROS Difficulty swallowing / foods sticking in throat:No Heartburn:No Hoarseness:No Chronic cough:No Regurgitation:No Chest pain:No Filling up quickly at meals:No Loss of appetite:No Nausea:No Vomiting: No Abdominal pain:No Recent change in bowel movements: No Bloody or black, bowel movements:No Constipation: No Diarrhea: No Loss of control of bowel movements:No Night sweats, fever, chills: No Thought or memory problems: No Fluid in abdomen (ascites): No Prominent leg swelling: No Vomiting blood: No Recent change in weight:No ROS Eyes: Negative for vision changes, diplopia or epiphora. Ears, Mouth, nose, throat:No problems Cardiovascular: No Problems Respiratory: Negative for cough, wheezing and shortness of breath Gastrointestinal : See HPI Genitourinary: Negative Musuloskeletal: Normal Integumentary: no rashes, lesions, or jaundice Neurological: No history of neurologic problems Endocrine: Negative for cold or heat intolerance, polyuria, polydipsia and goiter. Psychiatric: Cooperative and agreeable Allergic/ Immunologic: Negative All others negative FAMILY HISTORY Has anyone in your family (grandparents, parents, brothers, sisters, aunts, or uncles) had: Liver problems: No Colitis: No Colon cancer: No PHYSICAL EXAMINATION General Appearance: alert, oriented x 3, pleasant and in no acute distress Eyes: No icterus or conjunctival pallor. Oropharynx: Lips, tongue, and oral mucosa normal. There is no thrush or oral ulcers. Lungs: breath sounds clear to auscultation bilaterally Heart: regular rate and rhythm, no murmurs or gallops. Abdomen: Not distended. Normal bowel sounds. Soft and non-tender. No masses or organomegaly. Hyperactive bowel sounds Extremities: no cyanosis or edema. Skin: dry skin on plantar surfaces of feet Lymph: No cervical, axillary, supraclavicular, or adenopathy. IMPRESSION #?Stricturing Ileocolonic CD Long-standing hx of . Diagnosed with CD in 2012 via colonoscopy (report unavailable however path with inflammation/granulomas mainly in ileum and sigmoid colon). Per pt has known ileocolonic stricture, never been dilated before. Denies ever having a full SBO, however notes symptoms of bloating almost daily, especially prominent around menstrual cycles, previously treated with Flagyl with improvement. We do not have any imaging studies for her on file. She has been prescribed Humira since 2016mainly for , but stopped taking it q2 weeks about a year a the discretion of her Furrier Designer, since seems to be well controlled, and has only taken it once since last year, less than 2 weeks a go for both and CD symptoms. Last colonoscopy 2017 was unremarkable per pt. Most significant GI symptom is bloating, otherwise fairly asymptomatic. Concern that the bloating could be reflecting a degree of obstruction related to ?stricture, vs SIBO, vs functional, needs further work-up. We also need to re- stage her disease. PLAN - Will try to obtain OSH records from previous GI - Labs today: CBC, CMP, iron studies, Vit D/B12, hepatitis panel, blood TB screen - MRE to evaluate for stricture - Glucose breath test to evaluate for SIBO - Ileocolonoscopy + bx - Referral to Rheumatology here as local Rheum retiring soon - Advised annual skin checks with local Derm Jennifer Flores MD July 05, 2022 8:47 AM Gastroenterology, IBD Fellow, PGY- VII GI STAFF I reviewed the history and physical obtained and documented by the fellow and I personally participated in the venegas components. The following comments revise or confirm relevant venegas elements of the fellow's note: 37 yo female here for treatment recommendations of Crohn's disease. Review of her history as listedin Dr. Flores's note. Her main symptom is bloating. She is on Humira but only uses it prn- in fact has only taken it oncein the past year in 05/2022 Physical Exam: As documented by Dr. Flores I discussed the case and the plans with the fellow with the following comments: ASSESSMENT 37 yo female with Crohn's since 2012 (per notes had abnormal blood serology in 2010) and also HLA-B27+ . From a Crohn's standpoint, she has ileal and sigmoid colon involvement; no prior surgery. She was initially treated with intermittent prednisone and sulfasalazine/mesalamine. She has been on Humira since 2018 (also on it from 2414-1354)- started mostly for . However, she only uses it prn- in fact has only taken it once in the past year in 05/2022. Given her prominent bloating, need to consider stricture with obstructive element and SIBO PLAN: Agree with plan as per Dr. Flores I have confirmed and edited as necessary, the PFSH and ROS obtained by others. Cuco Gonzalez MD documented in this encounterOhio [facility]08-04-2022 Miscellaneous Notes* Telephone Encounter - Soledad Bhatia RN - 07/01/2022 4:52 PM EDT Called patient In an attempt to retrieve outside medical records. Patient states she requested records but we have not received them. Patient will get records tomorrow and send them via e-mail and fax. Information has been provided to the patient and call back number has also been provided. Soledad Bhatia RN documented in this encounter[facility]* Diagnosis Crohn's disease of both small and large intestine without complication (HCC)- Primary Regional enteritis of small intestine with large intestine Crohn's disease of small and large intestines with complication (HCC) Bloating Flatulence, eructation, and gas pain documented in this encounter [facility]* Diagnosis Crohn's disease of both small and large intestine without complication (HCC) Regional enteritis of small intestine with large intestine Crohn's disease of small and large intestines with complication (HCC) documented in this encounter [facility]* Diagnosis Crohn's disease of both small and large intestine without complication (HCC) Regional enteritis of small intestine with large intestine Crohn's disease of small and large intestines with complication (HCC) [facility] Crohn's disease of both small and large intestine without complication (HCC) Regional enteritis of small intestine with large intestine Crohn's disease of small and large intestines with complication (HCC) [facility] Diagnosis Crohn's disease of small and large intestines with complication (HCC)- Primary intermediate current use of systemic steroids Encounter for long-term (current) use of steroids [facility]* Diagnosis Vitamin D deficiency- Primary Unspecified vitamin D deficiency [facility]* 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 Encounter for long-term (current) use of steroids [facility]* Diagnosis Crohn's disease of small and large intestines with complication (HCC)- Primary [facility]* 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 Other and unspecified noninfectious gastroenteritis and colitis Bilateral sacroiliitis (HCC) Back stiffness, history Other symptoms referable to back HLA B27 (HLA B27 positive) Genetic susceptibility to other disease Crohn's disease of both small and large intestine with other complication (HCC) Stricture intestinal (HCC) Unspecified intestinal obstruction Vitamin D deficiency Unspecified vitamin D deficiency Raynaud's phenomenon without gangrene Cigarette smoker motivated to quit Pers History of multiple miscarriages Vision changes Unspecified visual disturbance Counseling on health promotion and disease prevention Other specified counseling [facility] Diagnosis Crohn's disease of small and large intestines with complication (HCC) [facility] Diagnosis Crohn's disease of small and large intestines with complication (HCC)- Primary Crohn's disease of small and large intestines with complication (HCC) [facility] Diagnosis Preoperative examination- Primary Preoperative examination, unspecified Crohn's disease of small and large intestines with complication (HCC) [facility] Diagnosis Abnormal blood coagulation profile- Primary Abnormal coagulation profile [facility]* Diagnosis Vitamin D deficiency- Primary Unspecified vitamin D deficiency [facility]* Diagnosis Crohn's disease of small and large intestines with complication (HCC)- Primary [facility]* Diagnosis Crohn's disease of small and large intestines with complication (HCC)- Primary [facility]* Diagnosis Crohn's disease with complication, unspecified gastrointestinal tract location (HCC)- Primary [facility]* Diagnosis Crohn's disease with complication, unspecified gastrointestinal tract location (HCC)- Primary [facility]* Diagnosis Crohn's disease of small and large intestines with complication (HCC) [facility]* Diagnosis Endometriosis Endometriosis, site unspecified Pelvic pain in female Unspecified symptom associated with female genital organs [facility]* 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 Other and unspecified noninfectious gastroenteritis and colitis Back stiffness Other symptoms referable to back Bilateral sacroiliitis (HCC) Vision changes Unspecified visual disturbance Crohn's disease of both small and large intestine with other complication (HCC) [facility] Diagnosis Abnormal coagulation profile- Primary [facility] Diagnosis Adenomyosis Endometriosis of uterus Dysmenorrhea Abnormal uterine bleeding Unspecified disorder of menstruation and other abnormal bleeding from female genital tract [facility]* Diagnosis Pre-op testing- Primary Preoperative examination, unspecified Adenomyosis Endometriosis of uterus Dysmenorrhea Abnormal uterine bleeding Unspecified disorder of menstruation and other abnormal bleeding from female genital tract [facility]* Diagnosis Antiphospholipid syndrome (HCC)- Primary Primary hypercoagulable state Hypercoagulable state (HCC) Primary hypercoagulable state Adenomyosis Endometriosis of uterus Dysmenorrhea Abnormal uterine bleeding Unspecified disorder of menstruation and other abnormal bleeding from female genital tract [facility] Diagnosis Antiphospholipid syndrome (HCC)- Primary Primary hypercoagulable state 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 Long-term (current) use of anticoagulants Adenomyosis Endometriosis of uterus Dysmenorrhea Abnormal uterine bleeding Unspecified disorder of menstruation and other abnormal bleeding from female genital tract [facility]* Diagnosis Antiphospholipid syndrome (HCC) Primary hypercoagulable state Crohn's disease with complication, unspecified gastrointestinal tract location (HCC)- Primary Adenomyosis Endometriosis of uterus Dysmenorrhea Abnormal uterine bleeding Unspecified disorder of menstruation and other abnormal bleeding from female genital tract [facility] Diagnosis Crohn's disease of small and large intestines with complication (HCC)- Primary Antiphospholipid syndrome (HCC) Primary hypercoagulable state Adenomyosis Endometriosis of uterus Dysmenorrhea Abnormal uterine bleeding Unspecified disorder of menstruation and other abnormal bleeding from female genital tract documented [facility]* 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 Other and unspecified noninfectious gastroenteritis and colitis Raynaud's phenomenon without gangrene HLA B27 (HLA B27 positive) Genetic susceptibility to other disease Crohn's disease of both small and large intestine with other complication (HCC) Adenomyosis Endometriosis of uterus Dysmenorrhea Abnormal uterine bleeding Unspecified disorder of menstruation and other abnormal bleeding from female genital tract documented in this encounter [facility] note* Diagnosis Antiphospholipid syndrome (HCC) Primary hypercoagulable state Hypercoagulable state (HCC) Primary hypercoagulable state Adenomyosis Endometriosis of uterus Dysmenorrhea Abnormal uterine bleeding Unspecified disorder of menstruation and other abnormal bleeding from female genital tract [facility]* Diagnosis Cigarette nicotine dependence without complication- Primary Tobacco use disorder Adenomyosis Endometriosis of uterus Dysmenorrhea Abnormal uterine bleeding Unspecified disorder of menstruation and other abnormal bleeding from female genital tract documented in this encounter [facility] note* Diagnosis Cigarette nicotine dependence without complication Tobacco use disorder Adenomyosis Endometriosis of uterus Dysmenorrhea Abnormal uterine bleeding Unspecified disorder of menstruation and other abnormal bleeding from female genital tract documented in this encounter [facility] for referral (narrative)* Outpatient Procedure (Routine) - Closed Specialty Diagnoses / Procedures Referred By Neisha t Referred To Contact [facility] Diagnoses Crohn's disease of both small and large intestine without complication (HCC) Crohn's disease of small and large intestines with complication (HCC) Procedures COLONOSCOPY DIAGNOSTIC COLONOSCOPY FLX DX W/COLLJ SPEC WHEN PFRMD Cuco Gonzalez MD [address] [place] [address] [facility] [place] [address] [place] [id number] Referral ID Status Reason Start Date Expiration Date V isits Requested Visits Authorized [id number] Closed Auto-Generate d Referral 07/05/2022 07/05/2023 1 1 [facility] for referral (narrative)* Diagnostic Procedure Only (Routine) - Closed Specialty Diagnoses / Procedures Referred By Contac t Referred To Contact XR IMAGING Diagnoses Back stiffness Arthritis associated with inflammatory bowel disease Procedures XR THORACIC GENERAL 3V AP/LAT/SWIMMERS RADEX SPINE THORACIC 3 VIEWS Franchesca Zuniga MD [address] [place] [address] Xr Imaging Referral ID Status Reason Start Date Expiration Date V isits Requested Visits Authorized [id number] Closed Auto-Generate d Referral 01/19/2023 02/18/2024 1 1 * Diagnostic Procedure Only (Routine) - Closed Specialty Diagnoses / Procedures Referred By Contac t Referred To Contact XR IMAGING Diagnoses Bilateral sacroiliitis (HCC) Arthritis associated with inflammatory bowel disease Procedures XR SACROILIAC JOINTS 2V AP PELVIS/FERGUESON RADIOLOGIC EXAMINATION SACROILIAC JNTS <3 VIEWS Franchesca Zuniga MD [address] [place] [address] Xr Imaging Referral ID Status Reason Start Date Expiration Date V isits Requested Visits Authorized [id number] Closed Auto-Generate d Referral 01/19/2023 02/18/2024 1 1 * Consult, Test, Treat (Routine) - Closed Specialty Diagnoses / Procedures Referred By Contac t Referred To Contact [facility] Diagnoses Vision changes Procedures CONSULT TO OPHTHALMOLOGY OFFICE/OUTPATIENT [facility] MDM 60-74 MINUTES Franchesca Zuniga MD [address] [place] [address] [facility] [place] [address] [place] [id number] Referral ID Status Reason Start Date Expiration Date V isits Requested Visits Authorized [id number] Closed PCP Requested Referral 01/19/2023 01/19/2024 1 1 [facility] for referral (narrative)* Outpatient Procedure (Routine) - Pending Review Specialty Diagnoses / Procedures Referred By Contac t Referred To Contact [facility] Diagnoses Crohn's disease of small and large intestines with complication (HCC) Procedures ECG COMPLETE ECG ROUTINE ECG W/LEAST 12 LDS W/I&R Hilary Shaffer MD [address] [place], [place] [id number] [place] [id number] Referral ID Status Reason Start Date Expiration Date Visits Requested Visits Authorized [id number] Pending Review Auto-Generat ed Referral 01/29/2023 01/28/2024 1 1 [facility] for visit Narrative* Outpatient Procedure (Routine) - Closed Specialty Diagnoses / Procedures Referred By Contac t Referred To Contact [facility] Diagnoses Crohn's disease of both small and large intestine without complication (HCC) Crohn's disease of small and large intestines with complication (HCC) Procedures COLONOSCOPY DIAGNOSTIC COLONOSCOPY FLX DX W/COLLJ SPEC WHEN PFRMD Cuco Gonzalez MD [address] [place], [place] [id number] [facility] [place] [phone] Referral ID Status Reason Start Date Expiration Date V isits Requested Visits Authorized [id number] Closed Auto-Generate d Referral 07/05/2022 07/05/2023 1 1 [facility] Summary Purpose Family History No Family History Records FoundNo Family History Records FoundNo Family History Records FoundNo Family History Records Found Advance Directives No Advanced Directives Records FoundNo Advanced Directives Records FoundNo Advanced Directives Records FoundNo Advanced Directives Records Found Reason for Referral Specialty Diagnoses / Procedures Referred By Contac t Referred To Contact Rheumatology Diagnoses Crohn's disease of both small and large intestine without complication (HCC) Crohn's disease of small and large intestines with complication (HCC) Procedures CONSULT TO RHEUM/IMMUN DISEASE OFFICE/OUTPATIENT [facility] MDM 60-74 MINUTES Cuco Gonzalez MD [address] [place] [phone] Referral ID Status Reason Start Date Expiration Date Visits Requested Visits Authorized [id number] Authorized PCP Requested Referral 07/05/2022 07/05/2023 1 1 Specialty Diagnoses / Procedures Referred By Contac t Referred To Contact [facility] Diagnoses Crohn's disease of both small and large intestine without complication (HCC) Crohn's disease of small and large intestines with complication (HCC) Procedures BREATH TEST GLUCOSE BREATH HYDROGEN/METHANE TEST Cuco Gonzalez MD [address] [place] [address] [facility] [place] [address] Referral ID Status Reason Start Date Expiration Date Visits Requested Visits Authorized [id number] Authorized Auto-Generat ed Referral 07/05/2022 07/05/2023 1 1 Specialty Diagnoses / Procedures Referred By Contac t Referred To Contact [facility] Diagnoses Crohn's disease of both small and large intestine without complication (HCC) Crohn's disease of small and large intestines with complication (HCC) Procedures COLONOSCOPY DIAGNOSTIC COLONOSCOPY FLX DX W/COLLJ SPEC WHEN PFRMD Cuco Gonzalez MD [address] [place] [address] [facility] [place] [address] Referral ID Status Reason Start Date Expiration Date Visits Requested Visits Authorized [id number] Pending Review Auto-Generat ed Referral 07/05/2022 07/05/2023 1 1 Specialty Diagnoses / Procedures Referred By Contac t Referred To Contact MR IMAGING Diagnoses Crohn's disease of both small and large intestine without complication (HCC) Crohn's disease of small and large intestines with complication (HCC) Procedures MRI PEL ENTEROG WO/W IVCON MRI PELVIS W/O & [place] [address] [place] [address] Mr Imaging Referral ID Status Reason Start Date Expiration Date V isits Requested Visits Authorized [id number] Closed Auto-Generate d Referral 07/05/2022 08/04/2023 1 1 Specialty Diagnoses / Procedures Referred By Contac t Referred To Contact MR IMAGING Diagnoses Crohn's disease of both small and large intestine without complication (HCC) Crohn's disease of small and large intestines with complication (HCC) Procedures MRI ABD ENTEROG WO/W IVCON MRI ABDOMEN W/O & W/CONTRAST MATERIAL MRI PELVIS W/O & W/CONTRAST MATERIAL Cuco Gonzalez MD [address] [place] [address] Mr Imaging Referral ID Status Reason Start Date Expiration Date Visits Requested Visits Authorized [id number] Authorized Auto-Generat ed Referral 07/28/2022 09/11/2022 2 2 Referral ID Status Reason Start Date Expiration Date V isits Requested Visits Authorized [id number] Closed Auto-Generate d Referral 07/28/2022 09/11/2022 2 2 Specialty Diagnoses / Procedures Referred By Contac t Referred To Contact Colon and Rectal Surgery Diagnoses Crohn's disease of small and large intestines with complication (HCC) Procedures CONSULT TO COLO-RECTAL SURGERY OFFICE/OUTPATIENT [facility] 60-74 MINUTES Roro Cain, COY.[employer]ER [employer] [address] [place] [address] Referral ID Status Reason Start Date Expiration Date Visits Requested Visits Authorized [id number] Authorized PCP Requested Referral 12/10/2022 12/10/2023 1 1 Specialty Diagnoses / Procedures Referred By Contac t Referred To Contact Nutrition Diagnoses Crohn's disease of small and large intestines with complication (HCC) Procedures CONSULT TO NUTRITION THERAPY OFFICE/OUTPATIENT [facility] MDM 60-74 MINUTES Roro Cain, APPLICATION DEVELOPMENT PROJECT MANAGER.[employer] [address] [place] [address] Referral ID Status Reason Start Date Expiration Date Visits Requested Visits Authorized [id number] Authorized PCP Requested Referral 12/10/2022 12/10/2023 1 1 Specialty Diagnoses / Procedures Referred By Contac t Referred To Contact MR IMAGING Diagnoses Endometriosis Pelvic pain in female Procedures MRI FEMALE PELVIS WO/W IVCON MRI PELVIS W/O & W/CONTRAST MATERIAL Adrien Cruz MD [address] [place] [address] Mr Imaging Referral ID Status Reason Start Date Expiration Date Visits Requested Visits Authorized [id number] Pending Review Auto-Generat ed Referral 05/20/2023 06/18/2024 1 1 Specialty Diagnoses / Procedures Referred By Contac t Referred To Contact Ophthalmology Diagnoses Vision changes Procedures CONSULT TO OPHTHALMOLOGY OFFICE/OUTPATIENT [facility] 60-74 MINUTES Luz Sims, APPLICATION DEVELOPMENT PROJECT MANAGER.[employer] [address] [place] [address] Referral ID Status Reason Start Date Expiration Date Visits Requested Visits Authorized [id number] Authorized PCP Requested Referral 05/19/2023 05/18/2024 1 1 Specialty Diagnoses / Procedures Referred By Contac t Referred To Contact Diagnoses Arthritis associated with inflammatory bowel disease Back stiffness Bilateral sacroiliitis (HCC) Luz Sims, APPLICATION DEVELOPMENT PROJECT MANAGER.[employer] [address] [place] [address] Referral ID Status Reason Start Date Expiration Date V isits Requested Visits Authorized [id number] Authorized 04/19/2023 05/20/2024 1 1 Specialty Diagnoses / Procedures Referred By Contac t Referred To Contact Vascular Medicine Diagnoses Abnormal coagulation profile Procedures CONSULT TO VASCULAR MEDICINE OFFICE/OUTPATIENT [facility] 60-74 MINUTES Franchesca Zuniga MD [address] [place] [address] Referral ID Status Reason Start Date Expiration Date Visits Requested Visits Authorized [id number] Authorized PCP Requested Referral 06/06/2023 06/05/2024 1 1 Medications Administered Section Inactive Administered Medications - up to 3 most recent administrations Medication Order MAR Action Action Date Dose Rate Site diphenhydrAMINE injection (BENADRYL) INTRAVENOUS, X (OR/PROCEDURE) PRN, Starting on Tue12/03/22 at 0908, Until Tue12/03/22 at 0908, Intraprocedure Given 12/03/2022 9:08 AM EST 50 mg fentaNYL 50 mcg/mL injection (SUBLIMAZE) INTRAVENOUS, X (OR/PROCEDURE) PRN, Starting on Tue12/03/22 at 0908, Until Tue12/03/22 at 0911, Intraprocedure Given 12/03/2022 9:11 AM EST 50 mcg Given 12/03/2022 9:08 AM EST 50 mcg midazolam (PF) injection (VERSED) INTRAVENOUS, X (OR/PROCEDURE) PRN, Starting on Tue12/03/22 at 0908, Until Tue12/03/22 at 0919, Intraprocedure Given 12/03/2022 9:19 AM EST 1 mg Given 12/03/2022 9:14 AM EST 1 mg Given 12/03/2022 9:11 AM EST 2 mg Additional Source Comments Reason for Visit (unrecogniz ed section and content) Reason Comments Consult Specialty Diagnoses / Procedures Referred By Contac t Referred To Contact Diagnoses Antiphospholipid syndrome (HCC) Hypercoagulable state (HCC) Procedures CONSULT TO HEMATOLOGY/ONCOLOGY OFFICE/OUTPATIENT [facility] 60-74 MINUTES Hilary Shaffer MD [address] [place] [address] Referral ID Status Reason Start Date Expiration Date V isits Requested Visits Authorized [id number] Closed PCP Requested Referral 09/19/2023 09/18/2024 1 1 Reason Comments Appointment Reason Comments Request Outside Medical Records Reason Comments Newly Diagnosed Reason Comments Patient Education Specialty Diagnoses / Procedures Referred By Contac t Referred To Contact MR IMAGING Diagnoses Crohn's disease of both small and large intestine without complication (HCC) Crohn's disease of small and large intestines with complication (HCC) Procedures MRI ABD ENTEROG WO/W IVCON MRI ABDOMEN W/O & W/CONTRAST MATERIAL MRI PELVIS W/O & W/CONTRAST MATERIAL Cuco Gonzalez MD [address] [place] [address] Mr Imaging Referral ID Status Reason Start Date Expiration Date V isits Requested Visits Authorized [id number] Closed Auto-Generate d Referral 07/28/2022 09/11/2022 2 2 Reason Comments Patient Update Reason Onset Date Comments Procedure 09/24/2022 Breath Test - Gl ucose Specialty Diagnoses / Procedures Referred By Contac t Referred To Contact [facility] Diagnoses Crohn's disease of both small and large intestine without complication (HCC) Crohn's disease of small and large intestines with complication (HCC) Procedures BREATH TEST GLUCOSE BREATH HYDROGEN/METHANE TEST Cuco Gonzalez MD [address] [place] [address] [facility] [place] [address] [place] [address] Referral ID Status Reason Start Date Expiration Date V isits Requested Visits Authorized [id number] Closed Auto-Generate d Referral 07/05/2022 07/05/2023 1 1 Reason Comments Appointment Reason Comments Recheck Reason Comments Research Reason Comments Research F/U Reason Comments Crohns Reason Comments Medication Follow-up Reason Comments New Patient Specialty Diagnoses / Procedures Referred By Contac t Referred To Contact Colon and Rectal Surgery Diagnoses Crohn's disease of small and large intestines with complication (HCC) Procedures CONSULT TO COLO-RECTAL SURGERY OFFICE/OUTPATIENT [facility] MDM 60-74 MINUTES Roro Cain APRN.LABORER [employer] [address] [place] [address] Referral ID Status Reason Start Date Expiration Date V isits Requested Visits Authorized [id number] Closed PCP Requested Referral 12/10/2022 12/10/2023 1 1 Reason Comments Pilot - Other Patient Update Reason Comments Pre-Op Exam Reason Comments Follow Up Phone Call All Clear Reason Comments Returning Patient's Call Pilot - Other Patient Question Reason Comments Results Reason Comments Pilot - Other Patient Question Reason Comments Orders Humira Induction & M aintenance Reason Onset Date Comments SPP Inflammatory Conditions - Treatment Referral 05/13/2023 Humira Insurance Authorization 05/13/2023 PA submi ssion pending Reason Onset Date Comments Refill Request 05/17/2023 Reason Comments Consult Reason Comments Follow Up discuss Humira -- Cr ohn's -- stiffness to upper back x 2 mths Reason Comments Insurance Authorization Humira Reason Comments Follow Up Reason Comments New Patient Evaluation Reason Comments Anticoagulation Telephone Fu Patient Upd ate Reason Comments Med Change Request Reason Comments Education Of Patient/family PREP QUESTIO N, PREP NEEDED Reason Comments Patient Update Patient Question Reason Comments Follow Up antiphospholipid syn drome Reason Comments New Patient Source Comments (unrecognize d section and content) In the event this informatio n is protected by the Federal Confidentiality of Alcohol and Drug Abuse Patient Records regulations: The Federal rules restrict any use of the information to criminally investigate or prosecute any alcohol or drug abuse patient.[facility] the event this information is protected by the Federal Confidentiality of Alcohol and Drug Abuse Patient Records regulations: The Federal rules restrict any use of the information to criminally investigate or prosecute any alcohol or drug abuse patient.[facility] HospitalIn the event this information is protected by the Federal Confidentiality of Alcohol and Drug Abuse Patient Records regulations: The Federal rules restrict any use of the information to criminally investigate or prosecute any alcohol or drug abuse patient.[facility] HospitalIn the event this information is protected by the Federal Confidentiality of Alcohol and Drug Abuse Patient Records regulations: The Federal rules restrict any use of the information to criminally investigate or prosecute any alcohol or drug abuse patient.[facility] HospitalIn the event this information is protected by the Federal Confidentiality of Alcohol and Drug Abuse Patient Records regulations: The Federal rules restrict any use of the information to criminally investigate or prosecute any alcohol or drug abuse patient.[facility] HospitalIn the event this information is protected by the Federal Confidentiality of Alcohol and Drug Abuse Patient Records regulations: The Federal rules restrict any use of the information to criminally investigate or prosecute any alcohol or drug abuse patient.[facility] HospitalIn the event this information is protected by the Federal Confidentiality of Alcohol and Drug Abuse Patient Records regulations: The Federal rules restrict any use of the information to criminally investigate or prosecute any alcohol or drug abuse patient.[facility] HospitalIn the event this information is protected by the Federal Confidentiality of Alcohol and Drug Abuse Patient Records regulations: The Federal rules restrict any use of the information to criminally investigate or prosecute any alcohol or drug abuse patient.[facility] HospitalIn the event this information is protected by the Federal Confidentiality of Alcohol and Drug Abuse Patient Records regulations: The Federal rules restrict any use of the information to criminally investigate or prosecute any alcohol or drug abuse patient.[facility] HospitalIn the event this information is protected by the Federal Confidentiality of Alcohol and Drug Abuse Patient Records regulations: The Federal rules restrict any use of the information to criminally investigate or prosecute any alcohol or drug abuse patient.[facility] HospitalIn the event this information is protected by the Federal Confidentiality of Alcohol and Drug Abuse Patient Records regulations: The Federal rules restrict any use of the information to criminally investigate or prosecute any alcohol or drug abuse patient.[facility] HospitalIn the event this information is protected by the Federal Confidentiality of Alcohol and Drug Abuse Patient Records regulations: The Federal rules restrict any use of the information to criminally investigate or prosecute any alcohol or drug abuse patient.[facility] HospitalIn the event this information is protected by the Federal Confidentiality of Alcohol and Drug Abuse Patient Records regulations: The Federal rules restrict any use of the information to criminally investigate or prosecute any alcohol or drug abuse patient.[facility] HospitalIn the event this information is protected by the Federal Confidentiality of Alcohol and Drug Abuse Patient Records regulations: The Federal rules restrict any use of the information to criminally investigate or prosecute any alcohol or drug abuse patient.[facility] HospitalIn the event this information is protected by the Federal Confidentiality of Alcohol and Drug Abuse Patient Records regulations: The Federal rules restrict any use of the information to criminally investigate or prosecute any alcohol or drug abuse patient.[facility] HospitalIn the event this information is protected by the Federal Confidentiality of Alcohol and Drug Abuse Patient Records regulations: The Federal rules restrict any use of the information to criminally investigate or prosecute any alcohol or drug abuse patient.[facility] HospitalIn the event this information is protected by the Federal Confidentiality of Alcohol and Drug Abuse Patient Records regulations: The Federal rules restrict any use of the information to criminally investigate or prosecute any alcohol or drug abuse patient.[facility] HospitalIn the event this information is protected by the Federal Confidentiality of Alcohol and Drug Abuse Patient Records regulations: The Federal rules restrict any use of the information to criminally investigate or prosecute any alcohol or drug abuse patient.[facility] HospitalIn the event this information is protected by the Federal Confidentiality of Alcohol and Drug Abuse Patient Records regulations: The Federal rules restrict any use of the information to criminally investigate or prosecute any alcohol or drug abuse patient.[facility] HospitalIn the event this information is protected by the Federal Confidentiality of Alcohol and Drug Abuse Patient Records regulations: The Federal rules restrict any use of the information to criminally investigate or prosecute any alcohol or drug abuse patient.[facility] HospitalIn the event this information is protected by the Federal Confidentiality of Alcohol and Drug Abuse Patient Records regulations: The Federal rules restrict any use of the information to criminally investigate or prosecute any alcohol or drug abuse patient.[facility] HospitalIn the event this information is protected by the Federal Confidentiality of Alcohol and Drug Abuse Patient Records regulations: The Federal rules restrict any use of the information to criminally investigate or prosecute any alcohol or drug abuse patient.[facility] HospitalIn the event this information is protected by the Federal Confidentiality of Alcohol and Drug Abuse Patient Records regulations: The Federal rules restrict any use of the information to criminally investigate or prosecute any alcohol or drug abuse patient.[facility] HospitalIn the event this information is protected by the Federal Confidentiality of Alcohol and Drug Abuse Patient Records regulations: The Federal rules restrict any use of the information to criminally investigate or prosecute any alcohol or drug abuse patient.[facility] HospitalIn the event this information is protected by the Federal Confidentiality of Alcohol and Drug Abuse Patient Records regulations: The Federal rules restrict any use of the information to criminally investigate or prosecute any alcohol or drug abuse patient.[facility] HospitalIn the event this information is protected by the Federal Confidentiality of Alcohol and Drug Abuse Patient Records regulations: The Federal rules restrict any use of the information to criminally investigate or prosecute any alcohol or drug abuse patient.[facility] HospitalIn the event this information is protected by the Federal Confidentiality of Alcohol and Drug Abuse Patient Records regulations: The Federal rules restrict any use of the information to criminally investigate or prosecute any alcohol or drug abuse patient.[facility] HospitalIn the event this information is protected by the Federal Confidentiality of Alcohol and Drug Abuse Patient Records regulations: The Federal rules restrict any use of the information to criminally investigate or prosecute any alcohol or drug abuse patient.[facility] HospitalIn the event this information is protected by the Federal Confidentiality of Alcohol and Drug Abuse Patient Records regulations: The Federal rules restrict any use of the information to criminally investigate or prosecute any alcohol or drug abuse patient.[facility] HospitalIn the event this information is protected by the Federal Confidentiality of Alcohol and Drug Abuse Patient Records regulations: The Federal rules restrict any use of the information to criminally investigate or prosecute any alcohol or drug abuse patient.[facility] HospitalIn the event this information is protected by the Federal Confidentiality of Alcohol and Drug Abuse Patient Records regulations: The Federal rules restrict any use of the information to criminally investigate or prosecute any alcohol or drug abuse patient.[facility] HospitalIn the event this information is protected by the Federal Confidentiality of Alcohol and Drug Abuse Patient Records regulations: The Federal rules restrict any use of the information to criminally investigate or prosecute any alcohol or drug abuse patient.[facility] HospitalIn the event this information is protected by the Federal Confidentiality of Alcohol and Drug Abuse Patient Records regulations: The Federal rules restrict any use of the information to criminally investigate or prosecute any alcohol or drug abuse patient.[facility] HospitalIn the event this information is protected by the Federal Confidentiality of Alcohol and Drug Abuse Patient Records regulations: The Federal rules restrict any use of the information to criminally investigate or prosecute any alcohol or drug abuse patient.[facility] HospitalIn the event this information is protected by the Federal Confidentiality of Alcohol and Drug Abuse Patient Records regulations: The Federal rules restrict any use of the information to criminally investigate or prosecute any alcohol or drug abuse patient.[facility] HospitalIn the event this information is protected by the Federal Confidentiality of Alcohol and Drug Abuse Patient Records regulations: The Federal rules restrict any use of the information to criminally investigate or prosecute any alcohol or drug abuse patient.[facility] HospitalIn the event this information is protected by the Federal Confidentiality of Alcohol and Drug Abuse Patient Records regulations: The Federal rules restrict any use of the information to criminally investigate or prosecute any alcohol or drug abuse patient.[facility] HospitalIn the event this information is protected by the Federal Confidentiality of Alcohol and Drug Abuse Patient Records regulations: The Federal rules restrict any use of the information to criminally investigate or prosecute any alcohol or drug abuse patient.[facility] HospitalIn the event this information is protected by the Federal Confidentiality of Alcohol and Drug Abuse Patient Records regulations: The Federal rules restrict any use of the information to criminally investigate or prosecute any alcohol or drug abuse patient.[facility] HospitalIn the event this information is protected by the Federal Confidentiality of Alcohol and Drug Abuse Patient Records regulations: The Federal rules restrict any use of the information to criminally investigate or prosecute any alcohol or drug abuse patient.[facility] HospitalIn the event this information is protected by the Federal Confidentiality of Alcohol and Drug Abuse Patient Records regulations: The Federal rules restrict any use of the information to criminally investigate or prosecute any alcohol or drug abuse patient.[facility] HospitalIn the event this information is protected by the Federal Confidentiality of Alcohol and Drug Abuse Patient Records regulations: The Federal rules restrict any use of the information to criminally investigate or prosecute any alcohol or drug abuse patient.[facility] HospitalIn the event this information is protected by the Federal Confidentiality of Alcohol and Drug Abuse Patient Records regulations: The Federal rules restrict any use of the information to criminally investigate or prosecute any alcohol or drug abuse patient.[facility] HospitalIn the event this information is protected by the Federal Confidentiality of Alcohol and Drug Abuse Patient Records regulations: The Federal rules restrict any use of the information to criminally investigate or prosecute any alcohol or drug abuse patient.[facility] HospitalIn the event this information is protected by the Federal Confidentiality of Alcohol and Drug Abuse Patient Records regulations: The Federal rules restrict any use of the information to criminally investigate or prosecute any alcohol or drug abuse patient.[facility] HospitalIn the event this information is protected by the Federal Confidentiality of Alcohol and Drug Abuse Patient Records regulations: The Federal rules restrict any use of the information to criminally investigate or prosecute any alcohol or drug abuse patient.[facility] HospitalIn the event this information is protected by the Federal Confidentiality of Alcohol and Drug Abuse Patient Records regulations: The Federal rules restrict any use of the information to criminally investigate or prosecute any alcohol or drug abuse patient.[facility] HospitalIn the event this information is protected by the Federal Confidentiality of Alcohol and Drug Abuse Patient Records regulations: The Federal rules restrict any use of the information to criminally investigate or prosecute any alcohol or drug abuse patient.[facility] HospitalIn the event this information is protected by the Federal Confidentiality of Alcohol and Drug Abuse Patient Records regulations: The Federal rules restrict any use of the information to criminally investigate or prosecute any alcohol or drug abuse patient.[facility] HospitalIn the event this information is protected by the Federal Confidentiality of Alcohol and Drug Abuse Patient Records regulations: The Federal rules restrict any use of the information to criminally investigate or prosecute any alcohol or drug abuse patient.[facility] HospitalIn the event this information is protected by the Federal Confidentiality of Alcohol and Drug Abuse Patient Records regulations: The Federal rules restrict any use of the information to criminally investigate or prosecute any alcohol or drug abuse patient.[facility] HospitalIn the event this information is protected by the Federal Confidentiality of Alcohol and Drug Abuse Patient Records regulations: The Federal rules restrict any use of the information to criminally investigate or prosecute any alcohol or drug abuse patient.[facility] HospitalIn the event this information is protected by the Federal Confidentiality of Alcohol and Drug Abuse Patient Records regulations: The Federal rules restrict any use of the information to criminally investigate or prosecute any alcohol or drug abuse patient.[facility] HospitalIn the event this information is protected by the Federal Confidentiality of Alcohol and Drug Abuse Patient Records regulations: The Federal rules restrict any use of the information to criminally investigate or prosecute any alcohol or drug abuse patient.[facility] HospitalIn the event this information is protected by the Federal Confidentiality of Alcohol and Drug Abuse Patient Records regulations: The Federal rules restrict any use of the information to criminally investigate or prosecute any alcohol or drug abuse patient.[facility] HospitalIn the event this information is protected by the Federal Confidentiality of Alcohol and Drug Abuse Patient Records regulations: The Federal rules restrict any use of the information to criminally investigate or prosecute any alcohol or drug abuse patient.[facility] HospitalIn the event this information is protected by the Federal Confidentiality of Alcohol and Drug Abuse Patient Records regulations: The Federal rules restrict any use of the information to criminally investigate or prosecute any alcohol or drug abuse patient.[facility] HospitalIn the event this information is protected by the Federal Confidentiality of Alcohol and Drug Abuse Patient Records regulations: The Federal rules restrict any use of the information to criminally investigate or prosecute any alcohol or drug abuse patient.[facility] HospitalIn the event this information is protected by the Federal Confidentiality of Alcohol and Drug Abuse Patient Records regulations: The Federal rules restrict any use of the information to criminally investigate or prosecute any alcohol or drug abuse patient.[facility] HospitalIn the event this information is protected by the Federal Confidentiality of Alcohol and Drug Abuse Patient Records regulations: The Federal rules restrict any use of the information to criminally investigate or prosecute any alcohol or drug abuse patient.[facility] HospitalIn the event this information is protected by the Federal Confidentiality of Alcohol and Drug Abuse Patient Records regulations: The Federal rules restrict any use of the information to criminally investigate or prosecute any alcohol or drug abuse patient.[facility] HospitalIn the event this information is protected by the Federal Confidentiality of Alcohol and Drug Abuse Patient Records regulations: The Federal rules restrict any use of the information to criminally investigate or prosecute any alcohol or drug abuse patient.[facility] HospitalIn the event this information is protected by the Federal Confidentiality of Alcohol and Drug Abuse Patient Records regulations: The Federal rules restrict any use of the information to criminally investigate or prosecute any alcohol or drug abuse patient.[facility] INFORMATION SOURCE (unrecogn ized section and content) DATE CREATED AUTHOR 07/03/2022 [facility] DATE CREATED AUTHOR AUTHOR'S ORGANIZ ATION 03/13/2023 [facility] DATE CREATED AUTHOR AUTHOR'S ORGANIZ ATION 12/10/2023 [facility] DATE CREATED AUTHOR AUTHOR'S ORGANIZ ATION 12/29/2023 [facility] Care Teams (unrecognized sec tion and content) [employer] Relationship Specialty Start Date End Date Brenda Landon MD [address] [id number] PCP - General Family Medicine 01/19/23 [employer] Relationship Specialty Start Date End Date Brenda Landon MD [address] [place] [address] PCP - General Family Medicine 01/19/23 [employer] Relationship Specialty Start Date End Date Brenda Landon MD [address] [place] [address] PCP - General Family Medicine 01/19/23 [employer] Relationship Specialty Start Date End Date Brenda Landon MD [address] [place] [facility] [place] [address] PCP - General Family Medicine 01/19/23 [employer] Relationship Specialty Start Date End Date Brenda Landon MD [address] [place] [address] PCP - General Family Medicine 01/19/23 [employer] Relationship Specialty Start Date End Date Brenda Landon MD [address] [place] [facility] [address] PCP - General Family Medicine 01/19/23 [employer] Relationship Specialty Start Date End Date Brenda Landon MD [address] [place] [facility] [place] [address] PCP - General Family Medicine 01/19/23 [employer] Relationship Specialty Start Date End Date Brenda Landon MD PCP - General Family Medicine 01/19/23 [employer] Relationship Specialty Start Date End Date Brenda Landon MD PCP - General Family Medicine 01/19/23 [employer] Relationship Specialty Start Date End Date Brenda Landon MD PCP - General Family Medicine 01/19/23 [employer] Relationship Specialty Start Date End Date Brenda Landon MD PCP - General Family Medicine 01/19/23 [employer] Relationship Specialty Start Date End Date Brenda Landon MD PCP - General Family Medicine 01/19/23 [employer] Relationship Specialty Start Date End Date Brenda Landon MD PCP - General Family Medicine 01/19/23 [employer] Relationship Specialty Start Date End Date Brenda Landon MD PCP - General Family Medicine 01/19/23 [employer] Relationship Specialty Start Date End Date Brenda Ladnon MD PCP - General Family Medicine 01/19/23 [employer] Relationship Specialty Start Date End Date Brenda Landon MD PCP - General Family Medicine 01/19/23 [employer] Relationship Specialty Start Date End Date Brenda Landon MD PCP - General Family Medicine 01/19/23 [employer] Relationship Specialty Start Date End Date Brenda Landon MD PCP - General Family Medicine 01/19/23 [employer] Relationship Specialty Start Date End Date Brenda Landon MD PCP - General Family Medicine 01/19/23 [employer] Relationship Specialty Start Date End Date Brenda Landon MD PCP - General Family Medicine 01/19/23 [employer] Relationship Specialty Start Date End Date Brenda Landon MD PCP - General Family Medicine 01/19/23 [employer] Relationship Specialty Start Date End Date Brenda Landon MD PCP - General Family Medicine 01/19/23 [employer] Relationship Specialty Start Date End Date Brenda Landon MD PCP - General Family Medicine 01/19/23 [employer] Relationship Specialty Start Date End Date Bredna Landon MD PCP - General Family Medicine 01/19/23 [employer] Relationship Specialty Start Date End Date Brenda Landon MD PCP - General Family Medicine 01/19/23 [employer] Relationship Specialty Start Date End Date Brenda aLndon MD PCP - General Family Medicine 01/19/23 [employer] Relationship Specialty Start Date End Date Brenda Landon MD PCP - General Family Medicine 01/19/23 [employer] Relationship Specialty Start Date End Date Brenda Landon MD PCP - General Family Medicine 01/19/23 [employer] Relationship Specialty Start Date End Date Brenda Landon MD PCP - General Family Medicine 01/19/23 [employer] Relationship Specialty Start Date End Date Brenda Landon MD PCP - General Family Medicine 01/19/23 [employer] Relationship Specialty Start Date End Date Brenda Landon MD PCP - General Family Medicine 01/19/23 [employer] Relationship Specialty Start Date End Date Brenda Landon MD PCP - General Family Medicine 01/19/23 [employer] Relationship Specialty Start Date End Date Brenda Landon MD PCP - General Family Medicine 01/19/23 [employer] Relationship Specialty Start Date End Date Brenda Landon MD PCP - General Family Medicine 01/19/23 [employer] Relationship Specialty Start Date End Date Brenda Landon MD PCP - General Family Medicine 01/19/23 FOR RECORDS PERTAINING TO PATIENTS WHO ARE OR HAVE BEEN ENROLLED IN A CHEMICAL DEPENDENCY/SUBSTANCEABUSE PROGRAM, SOME INFORMATION MAY BE OMITTED. This clinical summary was aggregated from multiple sources. Caution should be exercised in using it in the provision of clinical care. This summary normalizes information from multiple sources, and as a consequence, information in this document may materially change the coding, format and clinical context of patient data. In addition, data may be omitted in some cases. CLINICAL DECISIONS SHOULD BE BASED ON THE PRIMARY CLINICAL RECORDS. [employer] [facility]. provides no warranty or guarantee of the accuracy or completeness of information in this document.
== END 2023-12-29 10:18 | disposition home or self-care (01) ==
LOC: LAB 12-31 10:17
PROVIDERS: PCP Family Medicine; Visit Provider Family Medicine
DX: N80.03 Adenomyosis of the uterus (principal)
CPT/HCPCS: 36415; 85025

== ENCOUNTER 2023-12-31 10:23 | Outpatient (OUT) | payer OTHER, SELFPAY ==
--- OUTSIDE RECORDS SUMMARY | 2023-12-31 10:28 | XMS_ITS | CCD ---
Author Name Unknown Address [address] [facility] [facility] [address] [place] [address] Organization [facility] Care Team Providers Care Hospitalist Physician Name Role Phone Brenda Landon Unavailable Ildefonso Leblanc Unavailable Unavailable Primary Care Provider Unavailabl e Unavailable Primary Care Provider Unavailabl e Unavailable Primary Care Provider Unavailabl e Brenda Landon MD Primary Care Provider [phone] Brenda Landon MD Primary Care Provider [phone] GUTIERREZ Admitting Unavailable HOY [...] [MORPHINE] Drug Allergy 7 Other: See Comments [facility] (19 sources) traMADol Drug Allergy 8 Other: See Comments [facility] (1 source) Morphine Drug Allergy 7 [facility] Medications Current Medications Medication Drug [...] with complication, unspecified gastrointestinal tract location , termination clerk use of drug 0.8 mL by Subcutaneous [...] with complication, unspecified gastrointestinal tract location , termination clerk use of drug take 10 mg by mouth 4 times daily.. Active folic acid 1 mg oral tablet (1 source) Start: 017 folic acid 1 MG Tab Indications: Chronic bilateral low back pain without sciatica , Bilateral thoracic back pain, unspecified chronicity , Crohn's disease with complication, unspecified gastrointestinal tract location , termination clerk use of drug take 1 tablet by [...] by mouth daily.. Active polyethylene glycol 3350 09249 mg powder for oral solution (2 sources) [...] a week. Take 2 tablets by mo [facility] once daily. ciprofloxacin 500 mg oral tablet [...] Long-term current use of systemic steroid; Translations: [termination clerk (current) use of systemic steroids] Episodic Other aftercare (13 sources) Long-term current use of anticoagulant; Translations: [termination clerk (current) use of anticoagulants] Onset: 3 09-14-2023 [...] Unclassified (1 source) 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; Translations: [termination clerk use of drug] Onset: 7 05-25-2017 Unclassified [...] Test Name Value Interpretation Reference Range Facility [facility] 12-28-2023 CNPN Normal [facility] Basic metabolic 2000 panelon 12-23-2023 Anion gap [Moles/Vol] 11 mmol/L Normal 9-18 [facility] Comment on above: Order Comment: Speci men Type: BLOOD SPECIMENOrdering Facility: [facility] Address: [address] [place] [address] Performed By: #### 2 4321-2 ####[facility] LABIA [id number] [place] [address] [place] Calcium [Mass/Vol] 8.5 mg/dL Normal 8.5-10.2 [facility] Comment on above: Order Comment: Speci men Type: BLOOD SPECIMENOrdering Facility: [facility] Address: [address] [place] [address] Performed By: #### 2 4321-2 ####[facility] LABCLIA [id number] [place] [address] [place] Chloride [Moles/Vol] 103 mmol/L Normal 97-105 [facility] Comment on above: Order Comment: Speci men Type: BLOOD SPECIMENOrdering Facility: [facility] Address: [address] [place] [address] Performed By: #### 2 4321-2 ####[facility] LABCLIA [id number] [place] [address] [place] CO2 [Moles/Vol] 21 mmol/L Low 22-30 [facility] Comment on above: Order Comment: Speci men Type: BLOOD SPECIMENOrdering Facility: [facility] Address: [address] [place] [address] Performed By: #### 2 4321-2 ####[facility] LABCLIA [id number] [place] [address] [place] Creatinine [Mass/Vol] 0.91 mg/dL Normal 0.58-0.96 [facility] Comment on above: Order Comment: Speci men Type: BLOOD SPECIMENOrdering Facility: [facility] Address: [address] [place] [address] Performed By: #### 2 4321-2 ####[facility] LABIA [id number] [place] [address] [place] Creatinine and Glomerular filtration rate.predicted panel (S/P/Bld) 82 mL/min/1.73m??? Normal >=60 [facility] Comment on above: Order Comment: Speci men Type: BLOOD SPECIMENOrdering Facility: [facility] Address: [address] [place] [address] Result Comment: Abbey mated Glomerular Filtration Rate [...] actual GFR. Performed By: #### 2 4321-2 ####[facility] LABCLIA [id number] [place] [id number] [place] Glucose [Mass/Vol] 158 mg/dL High 74-99 [facility] Comment on above: Order Comment: Speci men Type: BLOOD SPECIMENOrdering Facility: [facility] Address: [address] [place] [address] Result Comment: The [place] [employer] (ADA) provides guidance for cutoff [...] Standards of Medical Care in Diabetes 2016, [place] [employer]. Diabetes Care. 2016.39(Suppl 1). Performed By: #### 2 4321-2 ####[facility] LABCLIA [id number] [place] [address] [place] Potassium [Moles/Vol] 4.8 mmol/L Normal 3.7-5.1 [facility] Comment on above: Order Comment: Speci men Type: BLOOD SPECIMENOrdering Facility: [facility] Address: [address] [place] [address] Performed By: #### 2 4321-2 ####[facility] LABCLIA [id number] [place] [address] [place] Sodium [Moles/Vol] 135 mmol/L Low 136-144 [facility] Comment on above: Order Comment: Speci men Type: BLOOD SPECIMENOrdering Facility: [facility] Address: [address] [place], [place] [address] Performed By: #### 2 4321-2 ####[facility] LABCLIA [id number] [place] [address] [place] Urea nitrogen [Mass/Vol] 12 mg/dL Normal 7-21 [facility] Comment on above: Order Comment: Speci men Type: BLOOD SPECIMENOrdering Facility: [facility] Address: [address] [place] [address] Performed By: #### 2 4321-2 ####[facility] LABIA [id number] [place] [address] [place] CBC panel Auto (Bld)on 12-23 Erythrocyte distribution width (RBC) [Ratio] 12.7 % Normal 11.5-15.0 [facility] Comment on above: Order Comment: Speci men Type: BLOOD SPECIMENOrdering Facility: [facility] Address: [address] [place] [address] Performed By: #### 5 8410-2 ####[facility] [id number] [place] [address] [place] Hematocrit (Bld) [Volume fraction] 28.3 % Low 36.0-46.0 [facility] Comment on above: Order Comment: Speci men Type: BLOOD SPECIMENOrdering Facility: [facility] Address: [address] [place] [address] Performed By: #### 5 8410-2 ####[facility] [id number] [place] [address] [place] Hemoglobin (Bld) [Mass/Vol] 9.4 g/dL Low 11.5-15.5 [facility] Comment on above: Order Comment: Speci men Type: BLOOD SPECIMENOrdering Facility: [facility] Address: [address] [place] [address] Performed By: #### 5 8410-2 ####[facility] LABIA [id number] [place] [address] [place] MCH (RBC) [Entitic mass] 31.9 pg Normal 26.0-34.0 [facility] Comment on above: Order Comment: Speci men Type: BLOOD SPECIMENOrdering Facility: [facility] Address: [address] [place] [address] Performed By: #### 5 8410-2 ####[facility] LABCLIA [id number] [place] [address] [place] MCHC (RBC) [Mass/Vol] 33.2 g/dL Normal 30.5-36.0 [facility] Comment on above: Order Comment: Speci men Type: BLOOD SPECIMENOrdering Facility: [facility] Address: [address] [place] [address] Performed By: #### 5 8410-2 ####[facility] LABIA [id number] [place] [address] [place] MCV (RBC) [Entitic vol] 95.9 fL Normal 80.0-100.0 [facility] Comment on above: Order Comment: Speci men Type: BLOOD SPECIMENOrdering Facility: [facility] Address: [address] [place] [address] Performed By: #### 5 8410-2 ####[facility] LABIA [id number] [place] [address] [place] Nucleated RBC (Bld) [#/Vol] 10*3/uL Normal <0.01 [facility] Comment on above: Order Comment: Speci men Type: BLOOD SPECIMENOrdering Facility: [facility] Address: [address] [place] [address] Performed By: #### 5 8410-2 ####[facility] LABIA [id number] [place] [address] [place] Platelet mean volume (Bld) [Entitic vol] 9.7 fL Normal 9.0-12.7 [facility] Comment on above: Order Comment: Speci men Type: BLOOD SPECIMENOrdering Facility: [facility] Address: [address] [place] [address] Performed By: #### 5 8410-2 ####[facility] LABIA [id number] [place] [address] [place] Platelets (Bld) [#/Vol] 259 10*3/uL Normal 150-400 [facility] Comment on above: Order Comment: Speci men Type: BLOOD SPECIMENOrdering Facility: [facility] Address: [address] [place] [address] Performed By: #### 5 8410-2 ####[facility] LABCLIA [id number] [place] [address] [place] RBC (Bld) [#/Vol] 2.95 10*6/uL Low 3.90-5.20 [facility] Comment on above: Order Comment: Speci men Type: BLOOD SPECIMENOrdering Facility: [facility] Address: [address] [place] [address] Performed By: #### 5 8410-2 ####[facility] LABCLIA [id number] [place] [address] [place] WBC (Bld) [#/Vol] 13.91 10*3/uL High 3.70-11.00 [facility] Comment on above: Order Comment: Speci men Type: BLOOD SPECIMENOrdering Facility: [facility] Address: [address] [place] [address] Performed By: #### 5 8410-2 ####[facility] LABCLIA [id number] [place] [address] [place] CNPNon 12-23-2023 CNPN Normal [facility] NURSING PROGon 12-23-2023 NURSING PROG Normal [facility] NURSING PROG Normal [facility] NURSING PROG Normal [facility] ANES PRE-OPon 12-22-2023 ANES PRE-OP Normal [facility] CBC panel Auto (Bld)on 12-22 Erythrocyte distribution width (RBC) [Ratio] 12.7 % Normal 11.5-15.0 [facility] Comment on above: Order Comment: Speci men Type: BLOOD SPECIMENOrdering Facility: [facility] Address: [address] [place] [address] Performed By: #### 5 8410-2 ####[facility] LABCLIA [id number] [place] [address] [place] Hematocrit (Bld) [Volume fraction] 28.8 % Low 36.0-46.0 [facility] Comment on above: Order Comment: Speci men Type: BLOOD SPECIMENOrdering Facility: [facility] Address: [address] [place] [address] Performed By: #### 5 8410-2 ####[facility] LABIA [id number] [place] [address] [place] Hemoglobin (Bld) [Mass/Vol] 9.6 g/dL Low 11.5-15.5 [facility] Comment on above: Order Comment: Speci men Type: BLOOD SPECIMENOrdering Facility: [facility] Address: [address] [place] [address] Performed By: #### 5 8410-2 ####[facility] LABIA [id number] [place] [address] [place] MCH (RBC) [Entitic mass] 31.6 pg Normal 26.0-34.0 [facility] Comment on above: Order Comment: Speci men Type: BLOOD SPECIMENOrdering Facility: [facility] Address: [address] [place] [address] Performed By: #### 5 8410-2 ####[facility] LABIA [id number] [place] [address] [place] MCHC (RBC) [Mass/Vol] 33.3 g/dL Normal 30.5-36.0 [facility] Comment on above: Order Comment: Speci men Type: BLOOD SPECIMENOrdering Facility: [facility] Address: [address] [place] [address] Performed By: #### 5 8410-2 ####[facility] LABIA [id number] [id number] [address] [place] MCV (RBC) [Entitic vol] 94.7 fL Normal 80.0-100.0 [facility] Comment on above: Order Comment: Speci men Type: BLOOD SPECIMENOrdering Facility: [facility] Address: [address] [place] [address] Performed By: #### 5 8410-2 ####[facility] LABCLIA [id number] [place] [address] [place] Nucleated RBC (Bld) [#/Vol] 10*3/uL Normal <0.01 [facility] Comment on above: Order Comment: Speci men Type: BLOOD SPECIMENOrdering Facility: [facility] Address: [address] [place] [address] Performed By: #### 5 8410-2 ####[facility] LABCLIA [id number] [place] [address] [place] Platelet mean volume (Bld) [Entitic vol] 9.7 fL Normal 9.0-12.7 [facility] Comment on above: Order Comment: Speci men Type: BLOOD SPECIMENOrdering Facility: [facility] Address: [address] [place] [address] Performed By: #### 5 8410-2 ####[facility] LABIA [id number] [place] [address] [place] Platelets (Bld) [#/Vol] 235 10*3/uL Normal 150-400 [facility] Comment on above: Order Comment: Speci men Type: BLOOD SPECIMENOrdering Facility: [facility] Address: [address] [place] [address] Performed By: #### 5 8410-2 ####[facility] LABCLIA [id number] [place] [address] [place] RBC (Bld) [#/Vol] 3.04 10*6/uL Low 3.90-5.20 [facility] Comment on above: Order Comment: Speci men Type: BLOOD SPECIMENOrdering Facility: [facility] Address: [address] [place] [address] Performed By: #### 5 8410-2 ####[facility] LABCLIA [id number] [place] [address] [place] WBC (Bld) [#/Vol] 10.70 10*3/uL Normal 3.70-11.00 [facility] Comment on above: Order Comment: Speci men Type: BLOOD SPECIMENOrdering Facility: [facility] Address: [address] [place] [address] Performed By: #### 5 8410-2 ####[facility] LABIA [id number] [place] [address] [place] NURSING PROGon 12-22-2023 NURSING PROG Normal [facility] NURSING PROG Normal [facility] OPERATIVE NOon 12-22-2023 OPERATIVE NO Normal [facility] SURGICAL PATHOLOGYon 024 CASE REPORT Normal [facility] Comment on above: Order Comment: Speci men Type: TISSUE SPECIMENOrdering Facility: [facility] Address: [address] [place] [address] Result Comment: Surg [facility] Pathology Report Case: [id number] Provider: Adrien Cruz MD Collected: 12/22/2023 12:47 PMOrdering Location: Admitting Received: 12/22/2023 02:19 PMPathologist: Ryan Chowdhury MDSpecimen: UTERUS, CERVIX, BILATERAL FALLOPIAN TUBES Performed By: #### S ####[facility] LABCLIA [id number] [place] [address] [place] CLINICAL HISTORY Normal [facility] Comment on above: Order Comment: Speci men Type: TISSUE SPECIMENOrdering Facility: [facility] Address: [address] [place] [address] Result Comment: Pre- op diagnosis:Adenomyosis [N80.03]Dysmenorrhea [N94.6]Abnormal uterine bleeding [N93.9] Performed By: #### S ####[facility] LABCLIA [id number] [address] [place] FINAL DIAGNOSIS Normal [facility] Comment on above: Order Comment: Speci men Type: TISSUE SPECIMENOrdering Facility: [facility] Address: [address] [place] [address] Result Comment: A. U terus, cervix, bilateral fallopian tubes, hysterectomy and bilateral salpingectomy- Histologically unremarkable cervix- Secretory endometrium- Adenomyosis- Leiomyomas- Serosal endometriosis- Histologically unremarkable fallopian tubes Performed By: #### S ####[facility] LABCLIA [id number] [address] [place] FINAL PERFORMING LAB Normal [facility] Comment on above: Order Comment: Speci men Type: TISSUE SPECIMENOrdering Facility: [facility] Address: [address] [place] [address] Result Comment: Diag nostic interpretation performed at [facility], [address] [place] [address] CLIA# [id number] Director: Scot Poole M.D. Performed By: #### S ####[facility] LABCLIA [id number] [address] [place] GROSS DESCRIPTION Normal [facility] Comment on above: Order Comment: Speci men Type: TISSUE SPECIMENOrdering Facility: [facility] Address: [address] [place] [address] Result Comment: A. U TERUS, CERVIX, BILATERAL [...] 3.5 cm in greatest width. The endometrium pink-clarie and moderately lush with no polyps or [...] reveals pinpoint lumens and unremarkable cut surfaces. [employer] Specialist sections are submitted as follows:A1 anterior cervix at 12:00A2 posterior cervix at 6:01H8-B6 anterior uterine wall, full-thickness with cystic spacesA5 posterior uterine wall, full-thicknessA6 intramural nodulesA7 longer fallopian tube with entire fimbriated endA8 shorter fallopian tube with entire fimbriated endKSZ December 22, 2023 3:18 PMGross examination performed at [facility], [address] [place] [address] Performed By: #### S ####[facility] LABCLIA [id number] [place] [address] [place] CBC W Auto Differential pane l (Bld)on 12-09-2023 Basophils (Bld) [#/Vol] 0.04 10*3/uL Normal <0.11 [facility] Comment on above: Order Comment: Speci men Type: BLOOD SPECIMENOrdering Facility: [facility] Address: [address] [place] [address] Performed By: #### 5 7021-8 ####[facility] LABCLIA [id number] [place] [address] [place] Basophils/100 WBC (Bld) 0.7 % Normal [facility] Comment on above: Order Comment: Speci men Type: BLOOD SPECIMENOrdering Facility: [facility] Address: [address] [place] [address] Performed By: #### 5 7021-8 ####[facility] LABCLIA [id number] [place] [address] [place] Differential cell count method Nom (Bld) Auto Normal [facility] Comment on above: Order Comment: Speci men Type: BLOOD SPECIMENOrdering Facility: [facility] Address: [address] [place] [address] Performed By: #### 5 7021-8 ####[facility] LABCLIA [id number] [place] [address] [place] Eosinophils (Bld) [#/Vol] 0.12 10*3/uL Normal <0.46 [facility] Comment on above: Order Comment: Speci men Type: BLOOD SPECIMENOrdering Facility: [facility] Address: [address] [place] [address] Performed By: #### 5 7021-8 ####[facility] LABCLIA [id number] [place] [address] [place] Eosinophils/100 WBC (Bld) 2.0 % Normal [facility] Comment on above: Order Comment: Speci men Type: BLOOD SPECIMENOrdering Facility: [facility] Address: [address] [place] [address] Performed By: #### 5 7021-8 ####[facility] LABCLIA [id number] [place] [address] [place] Erythrocyte distribution width (RBC) [Ratio] 12.9 % Normal 11.5-15.0 [facility] Comment on above: Order Comment: Speci men Type: BLOOD SPECIMENOrdering Facility: [facility] Address: [address] [place] [address] Performed By: #### 5 7021-8 ####[facility] LABCLIA [id number] [place] [address] [place] Hematocrit (Bld) [Volume fraction] 42.1 % Normal 36.0-46.0 [facility] Comment on above: Order Comment: Speci men Type: BLOOD SPECIMENOrdering Facility: [facility] Address: [address] [place] [address] Performed By: #### 5 7021-8 ####[facility] LABCLIA [id number] [place] [address] [place] Hemoglobin (Bld) [Mass/Vol] 13.9 g/dL Normal 11.5-15.5 [facility] Comment on above: Order Comment: Speci men Type: BLOOD SPECIMENOrdering Facility: [facility] Address: [address] [place] [address] Performed By: #### 5 7021-8 ####[facility] LABCLIA [id number] [place] [address] [place] Immature granulocytes (Bld) [#/Vol] 10*3/uL Normal <0.10 [facility] Comment on above: Order Comment: Speci men Type: BLOOD SPECIMENOrdering Facility: [facility] Address: [address] [place] [address] Performed By: #### 5 7021-8 ####[facility] LABCLIA [id number] [place] [address] [place] Immature granulocytes/100 WBC (Bld) 0.2 % Normal [facility] Comment on above: Order Comment: Speci men Type: BLOOD SPECIMENOrdering Facility: [facility] Address: [address] [place] [address] Performed By: #### 5 7021-8 ####[facility] LABCLIA [id number] [place] [address] [place] Lymphocytes (Bld) [#/Vol] 1.42 10*3/uL Normal 1.00-4.00 [facility] Comment on above: Order Comment: Speci men Type: BLOOD SPECIMENOrdering Facility: [facility] Address: [address] [place] [address] Performed By: #### 5 7021-8 ####[facility] LABCLIA [id number] [place] [address] [place] Lymphocytes/100 WBC (Bld) 24.1 % Normal [facility] Comment on above: Order Comment: Speci men Type: BLOOD SPECIMENOrdering Facility: [facility] Address: [address] [place] [address] Performed By: #### 5 7021-8 ####[facility] LABCLIA [id number] [place] [address] [place] MCH (RBC) [Entitic mass] 31.7 pg Normal 26.0-34.0 [facility] Comment on above: Order Comment: Speci men Type: BLOOD SPECIMENOrdering Facility: [facility] Address: [address] [place] [address] Performed By: #### 5 7021-8 ####[facility] LABCLIA [id number] [place] [address] [place] MCHC (RBC) [Mass/Vol] 33.0 g/dL Normal 30.5-36.0 [facility] Comment on above: Order Comment: Speci men Type: BLOOD SPECIMENOrdering Facility: [facility] Address: [address] [place] [address] Performed By: #### 5 7021-8 ####[facility] LABCLIA [id number] [address] [id number] [address] [place] MCV (RBC) [Entitic vol] 96.1 fL Normal 80.0-100.0 [facility] Comment on above: Order Comment: Speci men Type: BLOOD SPECIMENOrdering Facility: [facility] Address: [address] [place] [address] Performed By: #### 5 7021-8 ####[facility] LABCLIA [id number] [place] [address] [place] Monocytes (Bld) [#/Vol] 0.62 10*3/uL Normal <0.87 [facility] Comment on above: Order Comment: Speci men Type: BLOOD SPECIMENOrdering Facility: [facility] Address: [address] [place] [address] Performed By: #### 5 7021-8 ####[facility] LABCLIA [id number] [place] [address] [place] Monocytes/100 WBC (Bld) 10.5 % Normal [facility] Comment on above: Order Comment: Speci men Type: BLOOD SPECIMENOrdering Facility: [facility] Address: [address] [place] [address] Performed By: #### 5 7021-8 ####[facility] LABCLIA [id number] [place] [address] [place] Neutrophils (Bld) [#/Vol] 3.68 10*3/uL Normal 1.45-7.50 [facility] Comment on above: Order Comment: Speci men Type: BLOOD SPECIMENOrdering Facility: [facility] Address: [address] [place] [address] Performed By: #### 5 7021-8 ####[facility] LABCLIA [id number] [place] [address] [place] Neutrophils/100 WBC (Bld) 62.5 % Normal [facility] Comment on above: Order Comment: Speci men Type: BLOOD SPECIMENOrdering Facility: [facility] Address: [address] [place] [address] Performed By: #### 5 7021-8 ####[facility] LABIA [id number] [place] [address] [place] Nucleated RBC (Bld) [#/Vol] 10*3/uL Normal <0.01 [facility] Comment on above: Order Comment: Speci men Type: BLOOD SPECIMENOrdering Facility: [facility] Address: [address] [place] [address] Performed By: #### 5 7021-8 ####[facility] LABIA [id number] [place] [address] [place] Nucleated RBC/100 WBC (Bld) [Ratio] 0.0 /100 WBC Normal [facility] Comment on above: Order Comment: Speci men Type: BLOOD SPECIMENOrdering Facility: [facility] Address: [address] [place] [address] Performed By: #### 5 7021-8 ####[facility] LABIA [id number] [place] [address] [place] Platelet mean volume (Bld) [Entitic vol] 10.0 fL Normal 9.0-12.7 [facility] Comment on above: Order Comment: Speci men Type: BLOOD SPECIMENOrdering Facility: [facility] Address: [address] [place] [address] Performed By: #### 5 7021-8 ####[facility] LABIA [id number] [place] [address] [place] Platelets (Bld) [#/Vol] 276 10*3/uL Normal 150-400 [facility] Comment on above: Order Comment: Speci men Type: BLOOD SPECIMENOrdering Facility: [facility] Address: [address] [place] [address] Performed By: #### 5 7021-8 ####[facility] LABIA [id number] [address] [address] [place] RBC (Bld) [#/Vol] 4.38 10*6/uL Normal 3.90-5.20 [facility] Comment on above: Order Comment: Speci men Type: BLOOD SPECIMENOrdering Facility: [facility] Address: [address] [place] [address] Performed By: #### 5 7021-8 ####[facility] LABCLIA [id number] [place] [address] [place] WBC (Bld) [#/Vol] 5.89 10*3/uL Normal 3.70-11.00 [facility] Comment on above: Order Comment: Speci men Type: BLOOD SPECIMENOrdering Facility: [facility] Address: [address] [place] [address] Performed By: #### 5 7021-8 ####[facility] LABIA [id number] [place] [address] [place] CNOVon 12-09-2023 CNOV Normal [facility] Centromere Ab IF Ql (S)on Centromere Ab Qn (S) >8.0 High <1.0 [facility] Comment on above: Order Comment: Speci men Type: BLOOD SPECIMENOrdering Facility: [facility] Address: [address] [place] [address] Result Comment: Anti -centromere antibody is used as in aid in diagnosis of systemic sclerosis. Clinical correlation is required.Test Methodology: Multiplex flow immunoassay. Performed By: #### 1 6570-4 ####[facility] LABIA [id number] [place] [address] [place] CENTROMERE AB QUAL Positive Abnormal Negative [facility] Comment on above: Order Comment: Speci men Type: BLOOD SPECIMENOrdering Facility: [facility] Address: [address] [place] [address] Performed By: #### 1 6570-4 ####[facility] LABIA [id number] [place] [id number] [place] Comprehensive metabolic 2000 panelon 12-09-2023 Albumin [Mass/Vol] 4.3 g/dL Normal 3.9-4.9 [facility] Comment on above: Order Comment: Speci men Type: BLOOD SPECIMEN Ordering Facility: [facility] Address: [address] [place] [address] Performed By: #### 2 4323-8 #### [facility] CLIA [id number] [address] [place] [address] [place] ALP [Catalytic activity/Vol] 47 U/L Normal 34-123 [facility] Comment on above: Order Comment: Speci men Type: BLOOD SPECIMEN Ordering Facility: [facility] Address: [address] [place] [address] Performed By: #### 2 4323-8 #### [facility] IA [id number] [address] [place] [address] [place] ALT [Catalytic activity/Vol] 13 U/L Normal 7-38 [facility] Comment on above: Order Comment: Speci men Type: BLOOD SPECIMEN Ordering Facility: [facility] Address: [address] [place] [address] Performed By: #### 2 4323-8 #### [facility] IA [id number] [address] [place] [address] [place] Anion gap [Moles/Vol] 10 mmol/L Normal 9-18 [facility] Comment on above: Order Comment: Speci men Type: BLOOD SPECIMEN Ordering Facility: [facility] Address: [address] [place] [address] Performed By: #### 2 4323-8 #### [facility] CLIA [id number] [place] [address] [place] AST [Catalytic activity/Vol] 20 U/L Normal 13-35 [facility] Comment on above: Order Comment: Speci men Type: BLOOD SPECIMEN Ordering Facility: [facility] Address: [address] [place] [address] Performed By: #### 2 4323-8 #### [facility] CLIA [id number] [address] [place] [address] [place] Bilirubin [Mass/Vol] 0.3 mg/dL Normal 0.2-1.3 [facility] Comment on above: Order Comment: Speci men Type: BLOOD SPECIMEN Ordering Facility: [facility] Address: [address] [place] [address] Performed By: #### 2 4323-8 #### [facility] IA [id number] [place] [address] [place] Calcium [Mass/Vol] 9.1 mg/dL Normal 8.5-10.2 [facility] Comment on above: Order Comment: Speci men Type: BLOOD SPECIMEN Ordering Facility: [facility] Address: [address] [place] [address] Performed By: #### 2 4323-8 #### [facility] [id number] [address] [place] [address] [place] Chloride [Moles/Vol] 104 mmol/L Normal 97-105 [facility] Comment on above: Order Comment: Speci men Type: BLOOD SPECIMEN Ordering Facility: [facility] Address: [address] [place] [address] Performed By: #### 2 4323-8 #### [facility] [id number] [address] [place] [address] [place] CO2 [Moles/Vol] 26 mmol/L Normal 22-30 [facility] Comment on above: Order Comment: Speci men Type: BLOOD SPECIMEN Ordering Facility: [facility] Address: [address] [place] [address] Performed By: #### 2 4323-8 #### [facility] [id number] [place] [address] [place] Creatinine [Mass/Vol] 0.67 mg/dL Normal 0.58-0.96 [facility] Comment on above: Order Comment: Speci men Type: BLOOD SPECIMEN Ordering Facility: [facility] Address: [address] [place] [address] Performed By: #### 2 4323-8 #### [facility] CLIA [id number] [facility] [place] [address] [place] Creatinine and Glomerular filtration rate.predicted panel (S/P/Bld) 113 mL/min/1.73m??? Normal >=60 [facility] Comment on above: Order Comment: Uday covington Type: BLOOD SPECIMEN Ordering Facility: [facility] Address: [address] [place] [address] Result Comment: Abbey mated Glomerular Filtration Rate [...] GFR. Performed By: #### 2 4323-8 #### [facility] CLIA [id number] [address] [facility] [place] [address] [place] Glucose [Mass/Vol] 94 mg/dL Normal 74-99 [facility] Comment on above: Order Comment: Uday covington Type: BLOOD SPECIMEN Ordering Facility: [facility] Address: [address] [place] [address] Result Comment: The [place] [employer] (ADA) provides guidance for cutoff [...] Standards of Medical Care in Diabetes 2016, [employer]. Diabetes Care. 2016.39(Suppl 1). Performed By: #### 2 4323-8 #### [facility] CLIA [id number] [address] [facility] [place] [address] [place] Potassium [Moles/Vol] 4.4 mmol/L Normal 3.7-5.1 [facility] Comment on above: Order Comment: Speci men Type: BLOOD SPECIMEN Ordering Facility: [facility] Address: [address] [place] [address] Performed By: #### 2 4323-8 #### [facility] CLIA [id number] [address] [place] [address] [place] Protein [Mass/Vol] 7.0 g/dL Normal 6.3-8.0 [facility] Comment on above: Order Comment: Speci men Type: BLOOD SPECIMEN Ordering Facility: [facility] Address: [address] [place] [address] Performed By: #### 2 4323-8 #### [facility] CLIA [id number] [address] [place] [address] [place] Sodium [Moles/Vol] 140 mmol/L Normal 136-144 [facility] Comment on above: Order Comment: Speci men Type: BLOOD SPECIMEN Ordering Facility: [facility] Address: [address] [place] [address] Performed By: #### 2 4323-8 #### [facility] CLIA [id number] [address] [place] [address] [place] Urea nitrogen [Mass/Vol] 13 mg/dL Normal 7-21 [facility] Comment on above: Order Comment: Speci men Type: BLOOD SPECIMEN Ordering Facility: [facility] Address: [address] [place] [address] Performed By: #### 2 4323-8 #### [facility] CLIA [id number] [address] [place] [address] [place] HISTORY PHYSICALon HISTORY PHYSICAL HNO ID: [id number] Author: MAURIZIO STINSON PA-C Service: ? 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 Normal [facility] PT panel Coag (PPP)on 2023 INR Coag (PPP) [Relative time] 1.0 {INR} Normal 0.9-1.3 [facility] Comment on above: Order Comment: Uday covington Type: BLOOD SPECIMENOrdering Facility: [facility] Address: [address] [place] [address] Result Comment: An min K Antagonist (VKA) Therapeutic Range: INR 2 to 3 (Target INR of 2.5)Note: For patients treated with VKA drugs, such as warfarin, the [employer] 2012 Guideline recommends [...] al. Chest 2012, 141:7S-47SNishjesenia RA, et al. [facility] 2017, 70: 252-289 Performed By: #### 3 4528-0 ####[facility] LABIA [id number] [place] [address] [place] PT Coag (PPP) [Time] 10.4 s Normal 9.7-13.0 [facility] Comment on above: Order Comment: Uday covington Type: BLOOD SPECIMENOrdering Facility: [facility] Address: [address] [place] [address] Performed By: #### 3 4528-0 ####[facility] LABIA [id number] [place] [address] [place] TYPE AND SCREEN,30 DAYon ABO B Normal [facility] Comment on above: Order Comment: Uday covington Type: BLOOD SPECIMENOrdering Facility: [facility] Address: [address] [place] [address] Performed By: #### T SCR30 ####[facility] BANKCLIA [id number] [place] [address] [place] HISTORICAL AB SCR STATUS Negative Normal [facility] Comment on above: Order Comment: Speci men Type: BLOOD SPECIMENOrdering Facility: [facility] Address: [address] [place] [address] Performed By: #### T SCR30 ####[facility]LO[facility] BANKCLIA [id number] [place] [address] [place] Rh Nom (Bld) Positive Normal [facility] Comment on above: Order Comment: Speci men Type: BLOOD SPECIMENOrdering Facility: [facility] Address: [address] [place] [address] Performed By: #### T SCR30 ####[facility]LO[facility] BANKCLIA [id number] [place] [address] [place] CNPNon 12-02-2023 CNPN Normal [facility] CNOVon 11-23-2023 CNOV Normal [facility] CNPNon 10-24-2023 CNPN Normal [facility] CNOVon 10-18-2023 CNOV Normal [facility] CNOVSPon 10-18-2023 CNOVSP Normal [facility] CNPNon 10-04-2023 CNPN Normal [facility] CNOVon 09-29-2023 CNOV Normal [facility] CNOVon 09-23-2023 CNOV Normal [facility] ANES POSTPROC EVALon 023 ANES POSTPROC EVAL Normal [facility] ANES PRE-OPon 09-22-2023 ANES PRE-OP Normal [facility] HISTORY PHYSICALon HISTORY PHYSICAL Normal [facility] NURSING PROGon 09-22-2023 NURSING PROG Normal [facility] NURSING PROG Normal [facility] SURGICAL PATHOLOGYon 023 CASE REPORT Normal [facility] Comment on above: Order Comment: Speci men Type: TISSUE SPECIMENOrdering Facility: [facility] Address: [address] [place] [address] Result Comment: [facility]urg [facility] Pathology Report Case: [id number] Provider: Lamont Brown MD Collected: 09/22/2023 02:19 PMOrdering Location: Gastroenterology Received: 09/22/2023 04:58 PMPathologist: Shamir Carvajal MD, PhDSpecimens: A) - ILEUM BIOPSY, hx crohns r/o active disease B) - TRANSVERSE COLON BIOPSY, hx crohns r/o active disease C) - COLON LEFT BIOPSY, hx crohns r/o active disease D) - RECTAL BIOPSY, hx crohns r/o active disease Performed By: #### S ####[facility] LABCLIA [id number] [address] FINAL DIAGNOSIS Normal [facility] Comment on above: Order Comment: Speci men Type: TISSUE SPECIMENOrdering Facility: [facility] Address: [address] [place] [address] Result Comment: A. I leum, biopsy:- Small intestinal mucosa with mild reactive changes.- No evidence of significant active inflammation, granulomas or dysplasia.B-D. Colon, transverse, left and rectum, biopsies:- Colonic mucosa with no significant diagnostic abnormality.- No evidence of granulomas or dysplasia. Performed By: #### S ####[facility] LABCLIA [id number] [address] OF [facility] FINAL PERFORMING LAB Normal [facility] Comment on above: Order Comment: Speci men Type: TISSUE SPECIMENOrdering Facility: [facility] Address: [address] [place] [address] Result Comment: Diag nostic interpretation performed at [facility], [address] [place] [address] CLIA# [id number] Director: Scot Poole M.D. Performed By: #### S ####[facility] LABCLIA [id number] [address] [place] GROSS DESCRIPTION A. ILEUM BIOPSY Normal [facility] Comment on above: Order Comment: Speci men Type: TISSUE SPECIMENOrdering Facility: [facility] Address: [address] [place] [address] Result Comment: Rece ived in formalin are [...] 22, 2023 10:31 PMGross examination performed at [facility], [address] [place] [address] Performed By: #### S ####[facility] LABCLIA [id number] [place] [address] [place] CNPNon 09-20-2023 CNPN Normal [facility] CNPNon 09-16-2023 CNPN Normal [facility] CNPNon 09-15-2023 CNPN Normal [facility] CNOVon 09-14-2023 CNOV Normal [facility] CNPNon 09-14-2023 CNPN Normal [facility] CNOVon 09-05-2023 CNOV Normal [facility] ADALIMUMAB ACTIVITY AND NEUT RALIZING ANTIBODYon 07-12-2023 ADALIMUMAB ACTIVITY 13.08 ug/mL Normal >=0.65 [facility] Comment on above: Order Comment: Speci men Type: BLOOD SPECIMENOrdering Facility: [facility] Address: [address] [place], [place] [address] Result Comment: INTE RPRETIVE INFORMATION: Adalimumab Activity [...] was developed and its performance characteristicsdetermined by [employer]. It has not been cleared orapproved by the [place] Food and Drug Administration. This test wasperformed in a CLIA certified laboratory and is intended forclinical purposes. Performed By: #### A TAMIKA ####DOMINGA GeniusIA [id number] [place] [address] ADALIMUMAB NEUTRALIZING ANTIBODY Not detected Normal Not Detected [facility] Comment on above: Order Comment: Speci men Type: BLOOD SPECIMENOrdering Facility: [facility] Address: [address] [place] [id number] Performed By: #### A TAMIKA ####[facility]IES[facility] [id number] [place] [address] EER ADALIMUMAB See Note Normal [facility] Comment on above: Order Comment: Speci men Type: BLOOD SPECIMENOrdering Facility: [facility] Address: [address] [place] [address] Result Comment: Auth orized individuals can access the [facility] Report using the following link:[email or web address] By: DOMINGA [address] [place], [place] [address]Wuakkhvcbn Director: Ivan Sellers MD, PhDCLIA Number: [id number] Performed By: #### A TAMIKA ####[facility]IES[facility] [id number] [place] [address] MRI FEMALE PELVIS WO/W IVCON on 07-12-2023 MRI FEMALE PELVIS WO/W IVCON Normal [facility] BETA 2 GLYCOPROTEIN, IGGon 0 05-20-2023 Beta 2 glycoprotein 1 IgG IA Qn <9 Normal <20 [facility] Comment on above: Order Comment: Speci men Type: BLOOD SPECIMENOrdering Facility: [facility] Address: [address] [place] [address] Result Comment: <20 SGU Wdzhsxhc49-93 SGU Low Positive>80 SGU High PositiveThese results were obtained with the [employer] QUANTA Lite B2 GPI IgG DONTRELL. B2 GPI IgG values obtained with different manufacturers' assay methods may not be used interchangeably. The magnitude of the reported IgG levels cannot be correlated to an endpoint titer. Performed By: #### B ETA2G, BETA2M, 5076-5, CARDITYLER BarreraM ####[facility] LABCLIA [id number] [facility] [id number] [place] [address] [place] BETA 2 GLYCOPROTEIN, IGMon 0 05-20-2023 Beta 2 glycoprotein 1 IgM IA Qn 23 SMU High <20 [facility] Comment on above: Order Comment: Speci men Type: BLOOD SPECIMENOrdering Facility: [facility] Address: [address] [place] [address] Result Comment: <20 SMU Mixpkydw86-73 SMU Low Positive>80 SMU High positiveThese results were obtained with the [employer] QUANTA Lite B2 GPI IgM DONTRELL. B2 GPI IgM values obtained with different manufacturers' assay methods may not be used interchangeably. The magnitude of the reported IgM levels cannot be correlated to an endpoint titer. Performed By: #### B SANDEEP JEFFERSON, 5076-5, WARNER JEROME ####[facility] LABIA [id number] [address] [place] CARDIOLIPIN IGG ABSon 2022 Cardiolipin IgG IA Qn (S) <9.0 Normal <15.0 [facility] Comment on above: Order Comment: Speci men Type: BLOOD SPECIMENOrdering Facility: [facility] Address: [address] [place] [address] Result Comment: <15 GPL [id number] GPL Indeterminate>20 GPL PositiveThe following results were obtained with the [employer] QUANTA Lite HARPREET IgG III DONTRELL. Cardiolipin IgG values obtained with the different manufacturers' assay methods may not be used interchangeably. The magnitude of the reported IgG levels cannot be correlated to an endpoint titer. Performed By: #### B SANDEEP JEFFERSON, 5076-5, WARNER JEROME ####[facility] LABIA [id number] [address] [place] CARDIOLIPIN IGM ABSon 2022 Cardiolipin IgM IA Qn (S) <9.0 Normal <12.5 [facility] Comment on above: Order Comment: Speci men Type: BLOOD SPECIMENOrdering Facility: [facility] Address: [address] [place] [address] Result Comment: <12. 5 MPL Nbecgzhs12.5-20 MPL Indeterminate>20 MPL PositiveThe following results were obtained with the [employer] QUANTA Lite HARPREET IgM III DONTRELL. Cardiolipin IgM values obtained with the different manufacturers' assay methods may not be used interchangeably. The magnitude of the reported IgM levels cannot be correlated to an endpoint titer.??? Performed By: #### B ETA2G, BETA2M, 5076-5, WARNER JEROME ####[facility] LABIA [id number] [address] [place] CNOVon 05-20-2023 CNOV Normal [facility] Cardiolipin IgA Ser IA-aCnco n 05-20-2023 Cardiolipin IgA IA Qn (S) <9.0 Normal <12.0 [facility] Comment on above: Order Comment: Speci men Type: BLOOD SPECIMENOrdering Facility: [facility] Address: [address] [place] [address] Result Comment: <12 APL Dpulnflr95-90 APL Indeterminate>20 APL PositiveThe following results were obtained with the [employer] Lite HARPREET IgA III DONTRELL. Cardiolipin IgA values obtained with the different manufacturers' assay methods may not be used interchangeably. The magnitude of the reported IgA levels cannot be correlated to an endpoint titer. Performed By: #### B ETA2G, BETA2M, 5076-5, WARNER JEROME ####[facility] [id number] [place] [address] [place] LUPUS PANELon 05-20-2023 aPTT Coag (Bld) [Time] 30.2 s Normal 24.0-35.1 [facility] Comment on above: Order Comment: Speci men Type: BLOOD SPECIMENOrdering Facility: [facility] Address: [address] [place] [address] Performed By: #### L UPPL ####[facility] [id number] [address] [place] aPTT W excess hexagonal phase phospholipid Coag (PPP) [Time] 42.4 seconds Normal 34.0-51.8 [facility] Comment on above: Order Comment: Speci men Type: BLOOD SPECIMENOrdering Facility: [facility] Address: [address] [place] [address] Performed By: #### L UPPL ####[facility] LABIA [id number] [place] [address] [place] Delta dRVVT Coag (PPP) [Time diff] 0.0 delta seconds Normal <7.1 [facility] Comment on above: Order Comment: Speci men Type: BLOOD SPECIMENOrdering Facility: [facility] Address: [address] [place] [address] Performed By: #### L UPPL ####[facility] [id number] [address] [place] dRVVT Coag (PPP) [Time] 30.9 s Low 32.0-45.7 [facility] Comment on above: Order Comment: Speci men Type: BLOOD SPECIMENOrdering Facility: [facility] Address: [address] [place] [address] Performed By: #### L UPPL ####[facility] [id number] [address] [place] dRVVT factor substitution immediately after 1:2 addition of normal plasma Coag (PPP) [Time] 33.5 seconds Normal 32.0-45.7 [facility] Comment on above: Order Comment: Speci men Type: BLOOD SPECIMENOrdering Facility: [facility] Address: [address] [place], [place] [address] Performed By: #### L UPPL ####[facility] [id number] [address] [place] dRVVT W excess hexagonal phase phospholipid actual/normal Coag (PPP) [Relative time] 43.1 seconds Normal 34.2-47.9 [facility] Comment on above: Order Comment: Speci men Type: BLOOD SPECIMENOrdering Facility: [facility] Address: [address] [place] [address] Performed By: #### L UPPL ####[facility] [id number] [address] dRVVT/dRVVT.excess phospholipid Coag (PPP) [Ratio] 1.03 Normal <1.32 [facility] Comment on above: Order Comment: Speci men Type: BLOOD SPECIMENOrdering Facility: [facility] Address: [address] [place] [address] Performed By: #### L UPPL ####[facility] LABCLIA [id number] [address] Lupus anticoagulant neutralization platelet Coag Ql (PPP) Negative Normal Negative [facility] Comment on above: Order Comment: Speci men Type: BLOOD SPECIMENOrdering Facility: [facility] Address: [address] [place] [address] Performed By: #### L UPPL ####[facility] LABIA [id number] [address] OF [facility] Thrombin time Coag (PPP) [Time] <16.8 Normal <18.6 [facility] Comment on above: Order Comment: Speci men Type: BLOOD SPECIMENOrdering Facility: [facility] Address: [address] [place] [address] Performed By: #### L UPPL ####[facility] LABIA [id number] [address] [place] PT panel Coag (PPP)on 2022 INR Coag (PPP) [Relative time] 1.0 {INR} Normal 0.9-1.3 [facility] Comment on above: Order Comment: Speci men Type: BLOOD SPECIMENOrdering Facility: [facility] Address: [address] [place] [address] Result Comment: An min K Antagonist (VKA) Therapeutic Range: INR 2 to 3 (Target INR of 2.5)Note: For patients treated with VKA drugs, such as warfarin, the [employer] 2012 Guideline recommends [...] al. Chest 2012, 141:7S-47SNishimura RA, et al. [facility] 2017, 70: 252-289 Performed By: #### 3 4528-0, 16748-0 ####[facility] LABIA [id number] [place] [address] [place] PT Coag (PPP) [Time] 9.9 s Normal 9.7-13.0 [facility] Comment on above: Order Comment: Speci men Type: BLOOD SPECIMENOrdering Facility: [facility] Address: [address] [place] [address] Performed By: #### 3 4528-0, 74809-8 ####[facility] [id number] [address] [place] aPTT PPPon 05-20-2023 aPTT Coag (PPP) [Time] 27.8 s Normal 23.0-32.4 [facility] Comment on above: Order Comment: Speci men Type: BLOOD SPECIMENOrdering Facility: [facility] Address: [address] [place] [address] Performed By: #### 3 4528-0, 97187-7 ####[facility] LABIA [id number] [place] [address] [place] CNOVon 05-19-2023 CNOV Normal [facility] CNPNon 05-11-2023 CNPN Normal [facility] CNCOon 03-24-2023 CNCO Letter Text Normal [facility] ALLIED HEALTHon 03-08-2023 ALLIED HEALTH Normal [facility] Basic metabolic 2000 panelon 03-08-2023 Anion gap [Moles/Vol] 10 mmol/L Normal 9-18 [facility] Comment on above: Order Comment: Speci men Type: BLOOD SPECIMENOrdering Facility: [facility] Address: [address] [address] Performed By: #### 1 9123-9, 2777-1, 56913-5 ####[facility] LABCLIA [id number] [place] [address] [place] Calcium [Mass/Vol] 8.8 mg/dL Normal 8.5-10.2 [facility] Comment on above: Order Comment: Speci men Type: BLOOD SPECIMENOrdering Facility: [facility] Address: [address] [place], [place] [address] Performed By: #### 1 9123-9, 2777-, 54347-6 ####[facility] LABCLIA [id number] [place] [address] [place] Chloride [Moles/Vol] 105 mmol/L Normal 97-105 [facility] Comment on above: Order Comment: Speci men Type: BLOOD SPECIMENOrdering Facility: [facility] Address: [address] [place], [place] [address] Performed By: #### 1 9123-9, 27771, 53781-2 ####[facility] LABCLIA [id number] [place] [address] [place] CO2 [Moles/Vol] 24 mmol/L Normal 22-30 [facility] Comment on above: Order Comment: Speci men Type: BLOOD SPECIMENOrdering Facility: [facility] Address: [address] [place] [address] Performed By: #### 1 9123-9, 2777-1, 25831-3 ####[facility] LABCLIA [id number] [address] [address] [place] Creatinine [Mass/Vol] 0.72 mg/dL Normal 0.58-0.96 [facility] Comment on above: Order Comment: Uday covington Type: BLOOD SPECIMENOrdering Facility: [facility] Address: [address] [place], [place] [address] Performed By: #### 1 9123-9, 2777-1, 08398-7 ####[facility] LABCLIA [id number] [address] ESTIMATED GLOMERULAR FILTRATION RATE 109 mL/min/1.73m??? Normal >=60 [facility] Comment on above: Order Comment: Uday covington Type: BLOOD SPECIMENOrdering Facility: [facility] Address: [address] [place], [place] [address] Result Comment: Abbey mated Glomerular Filtration Rate [...] GFR. Performed By: #### 1 9123-9, 2777-, 24920-5 ####[facility] LABCLIA [id number] [address] [place] Glucose [Mass/Vol] 87 mg/dL Normal 74-99 [facility] Comment on above: Order Comment: Uday covington Type: BLOOD SPECIMENOrdering Facility: [facility] Address: [address] [place], [place] [address] Result Comment: The [employer] (ADA) provides guidance for cutoff [...] Standards of Medical Care in Diabetes 2016, [place] [employer]. Diabetes Care. 2016.39(Suppl 1). Performed By: #### 1 9123-9, 2776-11, 84452-2 ####[facility] LABCLIA [id number] [address] [address] [place] Potassium [Moles/Vol] 3.9 mmol/L Normal 3.7-5.1 [facility] Comment on above: Order Comment: Speci men Type: BLOOD SPECIMENOrdering Facility: [facility] Address: [address] Performed By: #### 1 9123-9, 2776-11, ####[facility] LABCLIA [id number] [place] [address] [place] Sodium [Moles/Vol] 139 mmol/L Normal 136-144 [facility] Comment on above: Order Comment: Speci men Type: BLOOD SPECIMENOrdering Facility: [facility] Address: [address] Performed By: #### 1 9123-9, 2776-11, ####[facility] LABCLIA [id number] [place] [address] [place] Urea nitrogen [Mass/Vol] 5 mg/dL Low 7-21 [facility] Comment on above: Order Comment: Speci men Type: BLOOD SPECIMENOrdering Facility: [facility] Address: [address] Performed By: #### 1 9123-9, 2776-11, ####[facility] LABCLIA [id number] [address] [address] [place] CBC panel Auto (Bld)on 03-08 Erythrocyte distribution width (RBC) [Ratio] 13.2 % Normal 11.5-15.0 [facility] Comment on above: Order Comment: Speci men Type: BLOOD SPECIMENOrdering Facility: [facility] Address: [address] Performed By: #### 5 8410-2 ####[facility] LABCLIA [id number] [address] [place] Hematocrit (Bld) [Volume fraction] 37.1 % Normal 36.0-46.0 [facility] Comment on above: Order Comment: Speci men Type: BLOOD SPECIMENOrdering Facility: [facility] Address: [address] [place] [address] Performed By: #### 5 8410-2 ####[facility] LABIA [id number] [address] [place] Hemoglobin (Bld) [Mass/Vol] 12.0 g/dL Normal 11.5-15.5 [facility] Comment on above: Order Comment: Speci men Type: BLOOD SPECIMENOrdering Facility: [facility] Address: [address] [place] [address] Performed By: #### 5 8410-2 ####[facility] LABIA [id number] [address] [place] MCH (RBC) [Entitic mass] 29.6 pg Normal 26.0-34.0 [facility] Comment on above: Order Comment: Speci men Type: BLOOD SPECIMENOrdering Facility: [facility] Address: [address] Performed By: #### 5 8410-2 ####[facility] LABIA [id number] [address] [place] MCHC (RBC) [Mass/Vol] 32.3 g/dL Normal 30.5-36.0 [facility] Comment on above: Order Comment: Speci men Type: BLOOD SPECIMENOrdering Facility: [facility] Address: [address] [place], [place] [address] Performed By: #### 5 8410-2 ####[facility] LABCLIA [id number] [place] [address] [place] MCV (RBC) [Entitic vol] 91.6 fL Normal 80.0-100.0 [facility] Comment on above: Order Comment: Speci men Type: BLOOD SPECIMENOrdering Facility: [facility] Address: [address] [place] [address] Performed By: #### 5 8410-2 ####[facility] LABIA [id number] [place] [address] [place] Nucleated RBC (Bld) [#/Vol] 10*3/uL Normal <0.01 [facility] Comment on above: Order Comment: Speci men Type: BLOOD SPECIMENOrdering Facility: [facility] Address: [address] Performed By: #### 5 8410-2 ####[facility] LABIA [id number] [place] [address] [place] Platelet mean volume (Bld) [Entitic vol] 9.9 fL Normal 9.0-12.7 [facility] Comment on above: Order Comment: Speci men Type: BLOOD SPECIMENOrdering Facility: [facility] Address: [address] [place] Performed By: #### 5 8410-2 ####[facility] LABIA [id number] [place] [address] [place] Platelets (Bld) [#/Vol] 253 10*3/uL Normal 150-400 [facility] Comment on above: Order Comment: Speci men Type: BLOOD SPECIMENOrdering Facility: [facility] Address: [address] [place] [address] Performed By: #### 5 8410-2 ####[facility] LABIA [id number] [address] [place] RBC (Bld) [#/Vol] 4.05 10*6/uL Normal 3.90-5.20 [facility] Comment on above: Order Comment: Speci men Type: BLOOD SPECIMENOrdering Facility: [facility] Address: [address] [place] [address] Performed By: #### 5 8410-2 ####[facility] LABCLIA [id number] [address] [place] WBC (Bld) [#/Vol] 3.20 10*3/uL Low 3.70-11.00 [facility] Comment on above: Order Comment: Speci men Type: BLOOD SPECIMENOrdering Facility: [facility] Address: [address] [place] [address] Performed By: #### 5 8410-2 ####[facility] LABCLIA [id number] [address] [place] ED NOTEon 03-08-2023 ED NOTE HNO ID: [id number] Author: Tacho Cr RN Service: Emergency Medicine Author Type: Registered Nurse Type: ED Notes Filed: 03/07/2023 11:05 PM Note Text: Report to TAYLA Lam Normal [facility] Magnesium SerPl-mCncon 03-08 Magnesium [Mass/Vol] 2.0 mg/dL Normal 1.7-2.3 [facility] Comment on above: Order Comment: Speci men Type: BLOOD SPECIMENOrdering Facility: [facility] Address: [address] [place] [address] Performed By: #### 1 9123-9, 2777-1, 59145-6 ####[facility] LABCLIA [id number] [address] [place] Phosphate SerPl-mCncon 03-08 Phosphate [Mass/Vol] 4.0 mg/dL Normal 2.7-4.8 [facility] Comment on above: Order Comment: Speci men Type: BLOOD SPECIMENOrdering Facility: [facility] Address: [address] [address] Performed By: #### 1 9123-9, 2777-1, 58627-2 ####[facility] LABCLIA [id number] [place] [address] [place] Bacteria Bld Culton 03-07-20 23 Bacteria identified Cx Nom (Bld) CULTURE, BLOOD: No growth 5 days Normal [facility] Comment on above: Performed By: #### 6 00-7 ####[facility] LABCLIA [id number] [address] [place] Bacteria identified Cx Nom (Bld) CULTURE, BLOOD: No growth 5 days Normal [facility] Comment on above: Performed By: #### 6 00-7 ####[facility] LABCLIA [id number] [place] [address] [place] CBC W Auto Differential pane l (Bld)on 03-07-2023 Basophils (Bld) [#/Vol] 0.03 10*3/uL Normal <0.11 [facility] Comment on above: Order Comment: Speci men Type: BLOOD SPECIMENOrdering Facility: [facility] Address: [address] [place] [address] Performed By: #### 5 7021-8 ####[facility] LABCLIA [id number] [place] [address] [place] Basophils/100 WBC (Bld) 0.5 % Normal [facility] Comment on above: Order Comment: Speci men Type: BLOOD SPECIMENOrdering Facility: [facility] Address: [address] [place] [address] Performed By: #### 5 7021-8 ####[facility] LABCLIA [id number] [address] [place] Differential cell count method Nom (Bld) Auto Normal [facility] Comment on above: Order Comment: Speci men Type: BLOOD SPECIMENOrdering Facility: [facility] Address: [address] Performed By: #### 5 7021-8 ####[facility] LABCLIA [id number] [place] [address] [place] Eosinophils (Bld) [#/Vol] 0.15 10*3/uL Normal <0.46 [facility] Comment on above: Order Comment: Speci men Type: BLOOD SPECIMENOrdering Facility: [facility] Address: [address] Performed By: #### 5 7021-8 ####[facility] LABCLIA [id number] [address] [place] Eosinophils/100 WBC (Bld) 2.7 % Normal [facility] Comment on above: Order Comment: Speci men Type: BLOOD SPECIMENOrdering Facility: [facility] Address: [address] [place], [place] [address] Performed By: #### 5 7021-8 ####[facility] LABCLIA [id number] [place] [address] [place] Erythrocyte distribution width (RBC) [Ratio] 13.0 % Normal 11.5-15.0 [facility] Comment on above: Order Comment: Speci men Type: BLOOD SPECIMENOrdering Facility: [facility] Address: [address] Performed By: #### 5 7021-8 ####[facility] LABIA [id number] [address] [place] Hematocrit (Bld) [Volume fraction] 39.2 % Normal 36.0-46.0 [facility] Comment on above: Order Comment: Speci men Type: BLOOD SPECIMENOrdering Facility: [facility] Address: [address] Performed By: #### 5 7021-8 ####[facility] LABCLIA [id number] [place] [address] [place] Hemoglobin (Bld) [Mass/Vol] 13.2 g/dL Normal 11.5-15.5 [facility] Comment on above: Order Comment: Speci men Type: BLOOD SPECIMENOrdering Facility: [facility] Address: [address] [place], [place] [address] Performed By: #### 5 7021-8 ####[facility] LABCLIA [id number] [place] [address] [place] Immature granulocytes (Bld) [#/Vol] 0.04 10*3/uL Normal <0.10 [facility] Comment on above: Order Comment: Speci men Type: BLOOD SPECIMENOrdering Facility: [facility] Address: [address] [place], [place] [address] Performed By: #### 5 7021-8 ####[facility] LABCLIA [id number] [place] [address] [place] Immature granulocytes/100 WBC (Bld) 0.7 % Normal [facility] Comment on above: Order Comment: Speci men Type: BLOOD SPECIMENOrdering Facility: [facility] Address: [address] [place], [place] [address] Performed By: #### 5 7021-8 ####[facility] LABCLIA [id number] [place] [address] [place] Lymphocytes (Bld) [#/Vol] 0.39 10*3/uL Low 1.00-4.00 [facility] Comment on above: Order Comment: Speci men Type: BLOOD SPECIMENOrdering Facility: [facility] Address: [address] [place], [place] [address] Performed By: #### 5 7021-8 ####[facility] LABCLIA [id number] [place] [address] [place] [facility] Lymphocytes/100 WBC (Bld) 7.0 % Normal [facility] Comment on above: Order Comment: Speci men Type: BLOOD SPECIMENOrdering Facility: [facility] Address: [address] [place], [place] [address] Performed By: #### 5 7021-8 ####[facility] LABCLIA [id number] [address] [place] [facility] MCH (RBC) [Entitic mass] 30.2 pg Normal 26.0-34.0 [facility] Comment on above: Order Comment: Speci men Type: BLOOD SPECIMENOrdering Facility: [facility] Address: [address] [place], [place] [address] Performed By: #### 5 7021-8 ####[facility] LABCLIA [id number] [address] [place] MCHC (RBC) [Mass/Vol] 33.7 g/dL Normal 30.5-36.0 [facility] Comment on above: Order Comment: Speci men Type: BLOOD SPECIMENOrdering Facility: [facility] Address: [address] [place], [place] [address] Performed By: #### 5 7021-8 ####[facility] LABCLIA [id number] [address] [place] MCV (RBC) [Entitic vol] 89.7 fL Normal 80.0-100.0 [facility] Comment on above: Order Comment: Speci men Type: BLOOD SPECIMENOrdering Facility: [facility] Address: [address] [place], [place] [address] Performed By: #### 5 7021-8 ####[facility] LABCLIA [id number] [address] [place] Monocytes (Bld) [#/Vol] 0.59 10*3/uL Normal <0.87 [facility] Comment on above: Order Comment: Speci men Type: BLOOD SPECIMENOrdering Facility: [facility] Address: [address] Performed By: #### 5 7021-8 ####[facility] LABCLIA [id number] [address] [place] Monocytes/100 WBC (Bld) 10.5 % Normal [facility] Comment on above: Order Comment: Speci men Type: BLOOD SPECIMENOrdering Facility: [facility] Address: [address] Performed By: #### 5 7021-8 ####[facility] LABCLIA [id number] [place] [address] [place] Neutrophils (Bld) [#/Vol] 4.41 10*3/uL Normal 1.45-7.50 [facility] Comment on above: Order Comment: Speci men Type: BLOOD SPECIMENOrdering Facility: [facility] Address: [address] Performed By: #### 5 7021-8 ####[facility] LABCLIA [id number] [address] [place] Neutrophils/100 WBC (Bld) 78.6 % Normal [facility] Comment on above: Order Comment: Speci men Type: BLOOD SPECIMENOrdering Facility: [facility] Address: [address] Performed By: #### 5 7021-8 ####[facility] LABCLIA [id number] [place] [address] [place] Nucleated RBC (Bld) [#/Vol] 10*3/uL Normal <0.01 [facility] Comment on above: Order Comment: Speci men Type: BLOOD SPECIMENOrdering Facility: [facility] Address: [address] Performed By: #### 5 7021-8 ####[facility] LABCLIA [id number] [place] [address] [place] Nucleated RBC/100 WBC (Bld) [Ratio] 0.0 /100 WBC Normal [facility] Comment on above: Order Comment: Speci men Type: BLOOD SPECIMENOrdering Facility: [facility] Address: [address] [place] [address] Performed By: #### 5 7021-8 ####[facility] LABIA [id number] [place] [address] [place] Platelet mean volume (Bld) [Entitic vol] 9.5 fL Normal 9.0-12.7 [facility] Comment on above: Order Comment: Speci men Type: BLOOD SPECIMENOrdering Facility: [facility] Address: [address] [place] [address] Performed By: #### 5 7021-8 ####[facility] LABIA [id number] [place] [address] [place] Platelets (Bld) [#/Vol] 280 10*3/uL Normal 150-400 [facility] Comment on above: Order Comment: Speci men Type: BLOOD SPECIMENOrdering Facility: [facility] Address: [address] [place] [address] Result Comment: No c lot detected. Performed By: #### 5 7021-8 ####[facility] LABIA [id number] [place] [address] [place] RBC (Bld) [#/Vol] 4.37 10*6/uL Normal 3.90-5.20 [facility] Comment on above: Order Comment: Speci men Type: BLOOD SPECIMENOrdering Facility: [facility] Address: [address] [place] [address] Performed By: #### 5 7021-8 ####[facility] LABIA [id number] [place] [address] [place] WBC (Bld) [#/Vol] 5.61 10*3/uL Normal 3.70-11.00 [facility] Comment on above: Order Comment: Speci men Type: BLOOD SPECIMENOrdering Facility: [facility] Address: [address] [place], [place] [address] Performed By: #### 5 7021-8 ####[facility] LABCLIA [id number] [place] [address] [place] CNPNon 03-07-2023 CNPN Normal [facility] CT ABD/PEL W IVCONon 023 CT ABD/PEL W IVCON Normal [facility] Comprehensive metabolic 2000 panelon 03-07-2023 Albumin [Mass/Vol] 4.5 g/dL Normal 3.9-4.9 [facility] Comment on above: Order Comment: Speci men Type: BLOOD SPECIMENOrdering Facility: [facility] Address: [address] [place], [place] [address] Performed By: #### 2 4323-8 ####[facility] LABCLIA [id number] [place] [address] [place] ALP [Catalytic activity/Vol] 90 U/L Normal 34-123 [facility] Comment on above: Order Comment: Speci men Type: BLOOD SPECIMENOrdering Facility: [facility] Address: [address] [place], [place] [address] Performed By: #### 2 4323-8 ####[facility] LABCLIA [id number] [place] [address] [place] ALT [Catalytic activity/Vol] 13 U/L Normal 7-38 [facility] Comment on above: Order Comment: Speci men Type: BLOOD SPECIMENOrdering Facility: [facility] Address: [address] [place], [place] [address] Performed By: #### 2 4323-8 ####[facility] LABIA [id number] [place] [address] [place] Anion gap [Moles/Vol] 11 mmol/L Normal 9-18 [facility] Comment on above: Order Comment: Speci men Type: BLOOD SPECIMENOrdering Facility: [facility] Address: [address] Performed By: #### 2 4323-8 ####[facility] LABCLIA [id number] [place] [address] [place] AST [Catalytic activity/Vol] 19 U/L Normal 13-35 [facility] Comment on above: Order Comment: Speci men Type: BLOOD SPECIMENOrdering Facility: [facility] Address: [address] Performed By: #### 2 4323-8 ####[facility] LABCLIA [id number] [place] [address] [place] Bilirubin [Mass/Vol] 0.2 mg/dL Normal 0.2-1.3 [facility] Comment on above: Order Comment: Speci men Type: BLOOD SPECIMENOrdering Facility: [facility] Address: [address] Performed By: #### 2 4323-8 ####[facility] LABCLIA [id number] [place] [address] [place] Calcium [Mass/Vol] 9.5 mg/dL Normal 8.5-10.2 [facility] Comment on above: Order Comment: Speci men Type: BLOOD SPECIMENOrdering Facility: [facility] Address: [address] Performed By: #### 2 4323-8 ####[facility] LABCLIA [id number] [place] [address] [place] Chloride [Moles/Vol] 102 mmol/L Normal 97-105 [facility] Comment on above: Order Comment: Speci men Type: BLOOD SPECIMENOrdering Facility: [facility] Address: [address] Performed By: #### 2 4323-8 ####[facility] LABCLIA [id number] [place] [address] [place] CO2 [Moles/Vol] 25 mmol/L Normal 22-30 [facility] Comment on above: Order Comment: Speci men Type: BLOOD SPECIMENOrdering Facility: [facility] Address: [address] [place] [address] Performed By: #### 2 4323-8 ####[facility] LABCLIA [id number] [place] [address] [place] Creatinine [Mass/Vol] 0.68 mg/dL Normal 0.58-0.96 [facility] Comment on above: Order Comment: Speci men Type: BLOOD SPECIMENOrdering Facility: [facility] Address: [address] [place] [address] Performed By: #### 2 4323-8 ####[facility] LABCLIA [id number] [address] [place] ESTIMATED GLOMERULAR FILTRATION RATE 113 mL/min/1.73m??? Normal >=60 [facility] Comment on above: Order Comment: Speci men Type: BLOOD SPECIMENOrdering Facility: [facility] Address: [address] [place] [address] Result Comment: Abbey mated Glomerular Filtration Rate [...] actual GFR. Performed By: #### 2 4323-8 ####[facility] LABCLIA [id number] [place] [address] [place] Glucose [Mass/Vol] 89 mg/dL Normal 74-99 [facility] Comment on above: Order Comment: Speci men Type: BLOOD SPECIMENOrdering Facility: [facility] Address: [address] [place] [address] Result Comment: The [place] [employer] (ADA) provides guidance for cutoff [...] Standards of Medical Care in Diabetes 2016, [place] [employer]. Diabetes Care. 2016.39(Suppl 1). Performed By: #### 2 4323-8 ####[facility] LABCLIA [id number] [place] [address] [place] Potassium [Moles/Vol] 4.4 mmol/L Normal 3.7-5.1 [facility] Comment on above: Order Comment: Speci men Type: BLOOD SPECIMENOrdering Facility: [facility] Address: [address] [place] [address] Performed By: #### 2 4323-8 ####[facility] LABCLIA [id number] [place] [address] [place] Protein [Mass/Vol] 7.6 g/dL Normal 6.3-8.0 [facility] Comment on above: Order Comment: Speci men Type: BLOOD SPECIMENOrdering Facility: [facility] Address: [address] [address] Performed By: #### 2 4323-8 ####[facility] LABCLIA [id number] [place] [address] [place] Sodium [Moles/Vol] 138 mmol/L Normal 136-144 [facility] Comment on above: Order Comment: Speci men Type: BLOOD SPECIMENOrdering Facility: [facility] Address: [address] [place] [address] Performed By: #### 2 4323-8 ####[facility] LABIA [id number] [place] [address] [place] Urea nitrogen [Mass/Vol] 8 mg/dL Normal 7-21 [facility] Comment on above: Order Comment: Speci men Type: BLOOD SPECIMENOrdering Facility: [facility] Address: [address] [place] [address] Performed By: #### 2 4323-8 ####[facility] LABIA [id number] [place] [address] [place] ED PROV NOTEon 03-07-2023 ED PROV NOTE Normal [facility] ED PROV NOTE Normal [facility] ED PROV NOTE Normal [facility] FLUABV+SARS-CoV-2+RSV Pnl Re sp GENESIS+probeon 03-07-2023 FLUABV+SARS-CoV-2+RS V Pnl Resp GENESIS+probe Abnormal [facility] Comment on above: Performed By: #### 9 5941-1 ####[facility] LABIA [id number] [place] [address] [place] HISTORY PHYSICALon HISTORY PHYSICAL Normal [facility] Urinalysis complete panel (U )on 03-07-2023 Bilirubin Ql (U) Negative Normal Negative [facility] Comment on above: Order Comment: Speci men Type: URINE SPECIMENOrdering Facility: [facility] Address: [address] [place], [place] [address] Performed By: #### 2 4356-8 ####[facility] LABIA [id number] [place] [address] [place] Clarity (Unsp spec) Clear Normal Clear [facility] Comment on above: Order Comment: Speci men Type: URINE SPECIMENOrdering Facility: [facility] Address: [address] [place], [place] [address] Performed By: #### 2 4356-8 ####[facility] LABCLIA [id number] [place] [address] [place] Color (U) Light Yellow Normal Yellow [facility] Comment on above: Order Comment: Speci men Type: URINE SPECIMENOrdering Facility: [facility] Address: [address] [place], [place] [address] Performed By: #### 2 4356-8 ####[facility] LABCLIA [id number] [place] [address] [place] Epithelial cells LM.HPF (Urine sed) [#/Area] Few Normal [facility] Comment on above: Order Comment: Speci men Type: URINE SPECIMENOrdering Facility: [facility] Address: [address] [place] [address] Performed By: #### 2 4356-8 ####[facility] LABIA [id number] [place] [address] [place] Glucose Test strip (U) [Mass/Vol] Negative Normal Trace, Negative [facility] Comment on above: Order Comment: Speci men Type: URINE SPECIMENOrdering Facility: [facility] Address: [address] [place], [place] [address] Performed By: #### 2 4356-8 ####[facility] LABIA [id number] [place] [address] [place] Hemoglobin Ql (U) 1+ Abnormal Negative, Trace [facility] Comment on above: Order Comment: Speci men Type: URINE SPECIMENOrdering Facility: [facility] Address: [address] Performed By: #### 2 4356-8 ####[facility] LABCLIA [id number] [place] [address] [place] Ketones Ql (U) Negative Normal Trace, Negative [facility] Comment on above: Order Comment: Speci men Type: URINE SPECIMENOrdering Facility: [facility] Address: [address] [place] [address] Performed By: #### 2 4356-8 ####[facility] LABCLIA [id number] [place] [address] [place] Leukocyte esterase Test strip Ql (U) 500 [place]/uL Abnormal Negative, 25 [place]/uL [facility] Comment on above: Order Comment: Speci men Type: URINE SPECIMENOrdering Facility: [facility] Address: [address] [address] Performed By: #### 2 4356-8 ####[facility] LABCLIA [id number] [place] [address] [place] Nitrite Ql (U) Negative Normal Negative [facility] Comment on above: Order Comment: Speci men Type: URINE SPECIMENOrdering Facility: [facility] Address: [address] [place] [address] Performed By: #### 2 4356-8 ####[facility] LABCLIA [id number] [place] [address] [place] pH (U) 6.0 [pH] Normal 5.0-8.0 [facility] Comment on above: Order Comment: Speci men Type: URINE SPECIMENOrdering Facility: [facility] Address: [address] [place], [place] [address] Performed By: #### 2 4356-8 ####[facility] LABCLIA [id number] [place] [address] [place] Protein (U) [Mass/Vol] Negative Normal Trace, Negative [facility] Comment on above: Order Comment: Speci men Type: URINE SPECIMENOrdering Facility: [facility] Address: [address] [place] [address] Performed By: #### 2 4356-8 ####[facility] LABCLIA [id number] [address] [place] RBC LM.HPF (Urine sed) [#/Area] 0-3 /HPF Normal 0-3 /HPF [facility] Comment on above: Order Comment: Speci men Type: URINE SPECIMENOrdering Facility: [facility] Address: [address] [place] [address] Performed By: #### 2 4356-8 ####[facility] LABCLIA [id number] [place] [address] [place] Specific gravity (U) [Rel density] 1.016 Normal 1.005-1.030 [facility] Comment on above: Order Comment: Speci men Type: URINE SPECIMENOrdering Facility: [facility] Address: [address] [place] [address] Performed By: #### 2 4356-8 ####[facility] LABCLIA [id number] [address] [facility] Urobilinogen Ql (U) Negative Normal Negative [facility] Comment on above: Order Comment: Speci men Type: URINE SPECIMENOrdering Facility: [facility] Address: [address] [place] [address] Performed By: #### 2 4356-8 ####[facility] LABIA [id number] [place] [address] [place] WBC LM.HPF (Urine sed) [#/Area] 11-25 /HPF Abnormal 0-5 /HPF [facility] Comment on above: Order Comment: Speci men Type: URINE SPECIMENOrdering Facility: [facility] Address: [address] [place] [address] Performed By: #### 2 4356-8 ####[facility] LABCLIA [id number] [place] [address] [place] Urinalysis complete pnl Uron 03-07-2023 Urinalysis complete panel (U) Normal [facility] Comment on above: Order Comment: Speci men Type: URINE SPECIMENOrdering Facility: [facility] Address: [address] [address] Performed By: #### 2 4356-8 ####[facility] LABCLIA [id number] [place] [address] [place] XR CHEST 1V FRONTAL PORTon 0 03-07-2023 XR CHEST 1V FRONTAL PORT Normal [facility] CNPNon 03-02-2023 CNPN Normal [facility] CNPNon 03-01-2023 CNPN Normal [facility] CNPNon 02-23-2023 CNPN Normal [facility] Basic metabolic 2000 panelon 02-17-2023 Anion gap [Moles/Vol] 7 mmol/L Low 9-18 [facility] Comment on above: Order Comment: Speci men Type: BLOOD SPECIMENOrdering Facility: [facility] Address: [address] Performed By: #### 2 432-, 1988-03, , 2776-11 ####[facility] LABIA [id number] [place] [address] [place] Calcium [Mass/Vol] 8.4 mg/dL Low 8.5-10.2 [facility] Comment on above: Order Comment: Speci men Type: BLOOD SPECIMENOrdering Facility: [facility] Address: [address] Performed By: #### 2 432-, 1988-03, , 2776-11 ####[facility] LABIA [id number] [place] [address] [place] Chloride [Moles/Vol] 106 mmol/L High 97-105 [facility] Comment on above: Order Comment: Speci men Type: BLOOD SPECIMENOrdering Facility: [facility] Address: [address] Performed By: #### 2 432-, 1988-03, 2776-11 ####[facility] LABIA [id number] [place] [address] [place] CO2 [Moles/Vol] 26 mmol/L Normal 22-30 [facility] Comment on above: Order Comment: Speci men Type: BLOOD SPECIMENOrdering Facility: [facility] Address: [address] [place] [address] Performed By: #### 2 4320-12, 1988-03, , 2776-11 ####[facility] LABIA [id number] [place] [address] [place] Creatinine [Mass/Vol] 0.70 mg/dL Normal 0.58-0.96 [facility] Comment on above: Order Comment: Speci men Type: BLOOD SPECIMENOrdering Facility: [facility] Address: [address] [place] [address] Performed By: #### 2 4320-12, 1988-03, , 2776-11 ####[facility] [id number] [place] [address] [place] [facility] ESTIMATED GLOMERULAR FILTRATION RATE 112 mL/min/1.73m??? Normal >=60 [facility] Comment on above: Order Comment: Speci men Type: BLOOD SPECIMENOrdering Facility: [facility] Address: [address] [place] [address] Result Comment: Abbey mated Glomerular Filtration Rate [...] By: #### 2 4320-12, 1988-03, , 2776-11 ####[facility] LABIA [id number] [place] [address] [place] Glucose [Mass/Vol] 103 mg/dL High 74-99 [facility] Comment on above: Order Comment: Speci men Type: BLOOD SPECIMENOrdering Facility: [facility] Address: [address] [place] [address] Result Comment: The [place] [employer] (ADA) provides guidance for cutoff [...] Standards of Medical Care in Diabetes 2016, [place] [employer]. Diabetes Care. 2016.39(Suppl 1). Performed By: #### 2 4320-12, 1988-03, , 2776-11 ####[facility] LABCLIA [id number] [place] [address] [place] Potassium [Moles/Vol] 3.7 mmol/L Normal 3.7-5.1 [facility] Comment on above: Order Comment: Speci men Type: BLOOD SPECIMENOrdering Facility: [facility] Address: [address] [place] [id number] Performed By: #### 2 4320-12, , 2776-11 ####[facility] LABCLIA [id number] [place] [address] [place] Sodium [Moles/Vol] 139 mmol/L Normal 136-144 [facility] Comment on above: Order Comment: Speci men Type: BLOOD SPECIMENOrdering Facility: [facility] Address: [address] [place], [place] [address] Performed By: #### 2 4320-12, 1988-03, , 2776-11 ####[facility] LABCLIA [id number] [place] [address] [place] Urea nitrogen [Mass/Vol] 8 mg/dL Normal 7-21 [facility] Comment on above: Order Comment: Speci men Type: BLOOD SPECIMENOrdering Facility: [facility] Address: [address] [place] [address] Performed By: #### 2 4321-2, 1987-5, 38964-9, 2777-1 ####[facility] LABCLIA [id number] [place] [address] [place] CASE MANAGEMon 02-17-2023 CASE MANAGEM Normal [facility] CBC panel Auto (Bld)on 02-17 Erythrocyte distribution width (RBC) [Ratio] 14.0 % Normal 11.5-15.0 [facility] Comment on above: Order Comment: Speci men Type: BLOOD SPECIMENOrdering Facility: [facility] Address: [address] [place] [address] Performed By: #### 5 8410-2 ####[facility] LABCLIA [id number] [place] [address] [place] Hematocrit (Bld) [Volume fraction] 33.2 % Low 36.0-46.0 [facility] Comment on above: Order Comment: Speci men Type: BLOOD SPECIMENOrdering Facility: [facility] Address: [address] [place], [place] [address] Performed By: #### 5 8410-2 ####[facility] LABCLIA [id number] [place] [address] [place] Hemoglobin (Bld) [Mass/Vol] 10.7 g/dL Low 11.5-15.5 [facility] Comment on above: Order Comment: Speci men Type: BLOOD SPECIMENOrdering Facility: [facility] Address: [address] [place] [address] Performed By: #### 5 8410-2 ####[facility] LABCLIA [id number] [place] [address] [place] MCH (RBC) [Entitic mass] 30.6 pg Normal 26.0-34.0 [facility] Comment on above: Order Comment: Speci men Type: BLOOD SPECIMENOrdering Facility: [facility] Address: [address] [place] [address] Performed By: #### 5 8410-2 ####[facility] [id number] [address] [place] MCHC (RBC) [Mass/Vol] 32.2 g/dL Normal 30.5-36.0 [facility] Comment on above: Order Comment: Speci men Type: BLOOD SPECIMENOrdering Facility: [facility] Address: [address] [place] [address] Performed By: #### 5 8410-2 ####[facility] [id number] [address] [place] MCV (RBC) [Entitic vol] 94.9 fL Normal 80.0-100.0 [facility] Comment on above: Order Comment: Speci men Type: BLOOD SPECIMENOrdering Facility: [facility] Address: [address] [place], [place] [address] Performed By: #### 5 8410-2 ####[facility] [id number] [place] [address] [place] Nucleated RBC (Bld) [#/Vol] 10*3/uL Normal <0.01 [facility] Comment on above: Order Comment: Speci men Type: BLOOD SPECIMENOrdering Facility: [facility] Address: [address] [place], [place] [address] Performed By: #### 5 8410-2 ####[facility] [id number] [address] [place] Platelet mean volume (Bld) [Entitic vol] 9.7 fL Normal 9.0-12.7 [facility] Comment on above: Order Comment: Speci men Type: BLOOD SPECIMENOrdering Facility: [facility] Address: [address] [place], [place] [address] Performed By: #### 5 8410-2 ####[facility] LABCLIA [id number] [place] [address] [place] Platelets (Bld) [#/Vol] 192 10*3/uL Normal 150-400 [facility] Comment on above: Order Comment: Speci men Type: BLOOD SPECIMENOrdering Facility: [facility] Address: [address] [place], [place] [address] Performed By: #### 5 8410-2 ####[facility] LABCLIA [id number] [place] [address] [place] RBC (Bld) [#/Vol] 3.50 10*6/uL Low 3.90-5.20 [facility] Comment on above: Order Comment: Speci men Type: BLOOD SPECIMENOrdering Facility: [facility] Address: [address] [place], [place] [address] Performed By: #### 5 8410-2 ####[facility] LABCLIA [id number] [place] [address] [place] WBC (Bld) [#/Vol] 6.37 10*3/uL Normal 3.70-11.00 [facility] Comment on above: Order Comment: Speci men Type: BLOOD SPECIMENOrdering Facility: [facility] Address: [address] [place], [place] [address] Performed By: #### 5 8410-2 ####[facility] LABCLIA [id number] [place] [address] [place] CNCOon 02-17-2023 CNCO Letter Text Normal [facility] CNDSon 02-17-2023 CNDS Normal [facility] CRP SerPl-mCncon 02-17-2023 CRP [Mass/Vol] 1.1 mg/dL High <0.9 [facility] Comment on above: Order Comment: Speci men Type: BLOOD SPECIMENOrdering Facility: [facility] Address: [address] [place] [address] Performed By: #### 2 432-2, 1988-03, , 2776-11 ####[facility] LABCLIA [id number] [place] [address] [place] Magnesium SerPl-mCncon 02-17 Magnesium [Mass/Vol] 1.9 mg/dL Normal 1.7-2.3 [facility] Comment on above: Order Comment: Speci men Type: BLOOD SPECIMENOrdering Facility: [facility] Address: [address] [place] [address] Performed By: #### 2 4322, 1988-03, , 2776-11 ####[facility] LABCLIA [id number] [place] [address] [place] Phosphate SerPl-mCncon 02-17 Phosphate [Mass/Vol] 2.9 mg/dL Normal 2.7-4.8 [facility] Comment on above: Order Comment: Speci men Type: BLOOD SPECIMENOrdering Facility: [facility] Address: [address] [place], [place] [address] Performed By: #### 2 432-2, 1988-03, , 2776-11 ####[facility] LABCLIA [id number] [place] [address] [place] Basic metabolic 2000 panelon 2023 Anion gap [Moles/Vol] 9 mmol/L Normal 9-18 [facility] Comment on above: Order Comment: Speci men Type: BLOOD SPECIMENOrdering Facility: [facility] Address: [address] [place], [place] [address] Performed By: #### 1 , , 2776-, 90041-1 ####[facility] LABCLIA [id number] [address] [address] [place] Calcium [Mass/Vol] 9.1 mg/dL Normal 8.5-10.2 [facility] Comment on above: Order Comment: Speci men Type: BLOOD SPECIMENOrdering Facility: [facility] Address: [address] [place], [place] [address] Performed By: #### 1 988-5, , 2776-11, 98769-5 ####[facility] LABCLIA [id number] [place] [address] [place] Chloride [Moles/Vol] 102 mmol/L Normal 97-105 [facility] Comment on above: Order Comment: Speci men Type: BLOOD SPECIMENOrdering Facility: [facility] Address: [address] [place], [place] [address] Performed By: #### 1 988-5, , 2776-11, 21025-2 ####[facility] LABIA [id number] [place] [address] [place] CO2 [Moles/Vol] 25 mmol/L Normal 22-30 [facility] Comment on above: Order Comment: Speci men Type: BLOOD SPECIMENOrdering Facility: [facility] Address: [address] [place], [place] [address] Performed By: #### 1 988-5, , 2776-11, 56980-1 ####[facility] LABIA [id number] [place] [id number] [place] Creatinine [Mass/Vol] 0.80 mg/dL Normal 0.58-0.96 [facility] Comment on above: Order Comment: Speci men Type: BLOOD SPECIMENOrdering Facility: [facility] Address: [address] [place], [place] [address] Performed By: #### 1 988-5, 47828-5, 2777-, 76362-3 ####[facility] LABCLIA [id number] [place] [address] [place] ESTIMATED GLOMERULAR FILTRATION RATE 96 mL/min/1.73m??? Normal >=60 [facility] Comment on above: Order Comment: Uday covington Type: BLOOD SPECIMENOrdering Facility: [facility] Address: [address] [place] [address] Result Comment: Abbey mated Glomerular Filtration Rate [...] actual GFR. Performed By: #### 1 988-5, 74175-7, 2777-, 69674-6 ####[facility] LABCLIA [id number] [place] [address] [place] Glucose [Mass/Vol] 108 mg/dL High 74-99 [facility] Comment on above: Order Comment: Uday covington Type: BLOOD SPECIMENOrdering Facility: [facility] Address: [address] [place] [address] Result Comment: The [place] [employer] (ADA) provides guidance for cutoff [...] Standards of Medical Care in Diabetes 2016, [employer]. Diabetes Care. 2016.39(Suppl 1). Performed By: #### 1 988-5, 53398-3, 2776-11, 47010-2 ####[facility] LABCLIA [id number] [place] [address] [place] Potassium [Moles/Vol] 3.7 mmol/L Normal 3.7-5.1 [facility] Comment on above: Order Comment: Speci men Type: BLOOD SPECIMENOrdering Facility: [facility] Address: [address] [place], [place] [address] Performed By: #### 1 , , 2776-11, 78810-8 ####[facility] LABIA [id number] [place] [address] [place] Sodium [Moles/Vol] 136 mmol/L Normal 136-144 [facility] Comment on above: Order Comment: Speci men Type: BLOOD SPECIMENOrdering Facility: [facility] Address: [address] [place], [place] [address] Performed By: #### 1 , , 2776-11, 82718-4 ####[facility] LABIA [id number] [place] [address] [place] Urea nitrogen [Mass/Vol] 14 mg/dL Normal 7-21 [facility] Comment on above: Order Comment: Speci men Type: BLOOD SPECIMENOrdering Facility: [facility] Address: [address] [place], [place] [address] Performed By: #### 1 , , 2776-11, ####[facility] [id number] [place] [id number] [place] Anion gap [Moles/Vol] 11 mmol/L Normal 9-18 [facility] Comment on above: Order Comment: Speci men Type: BLOOD SPECIMENOrdering Facility: [facility] Address: [address] [place], [place] [address] Performed By: #### 2 4321-2, 1988-03, , 2776-11 ####[facility] LABCLIA [id number] [address] [address] [place] Calcium [Mass/Vol] 9.0 mg/dL Normal 8.5-10.2 [facility] Comment on above: Order Comment: Speci men Type: BLOOD SPECIMENOrdering Facility: [facility] Address: [address] [place], [place] [address] Performed By: #### 2 4320-12, 1988-03, , 2776-11 ####[facility] LABCLIA [id number] [place] [address] [place] Chloride [Moles/Vol] 102 mmol/L Normal 97-105 [facility] Comment on above: Order Comment: Speci men Type: BLOOD SPECIMENOrdering Facility: [facility] Address: [address] [place], [place] [address] Performed By: #### 2 4320-12, 1988-03, , 2776-11 ####[facility] LABCLIA [id number] [place] [id number] [place] CO2 [Moles/Vol] 24 mmol/L Normal 22-30 [facility] Comment on above: Order Comment: Speci men Type: BLOOD SPECIMENOrdering Facility: [facility] Address: [address] [place] [phone] Performed By: #### 2 4320-12, 1988-03, , 2776-11 ####[facility] LABCLIA [id number] [address] [address] [place] Creatinine [Mass/Vol] 0.80 mg/dL Normal 0.58-0.96 [facility] Comment on above: Order Comment: Speci men Type: BLOOD SPECIMENOrdering Facility: [facility] Address: [address] [place] [address] Performed By: #### 2 4320-12, 2776-11 ####[facility] LABCLIA [id number] [place] [address] [place] ESTIMATED GLOMERULAR FILTRATION RATE 96 mL/min/1.73m??? Normal >=60 [facility] Comment on above: Order Comment: Uday adria Type: BLOOD SPECIMENOrdering Facility: [facility] Address: [address] [place] [address] Result Comment: Abbey mated Glomerular Filtration Rate [...] Performed By: #### 2 432-, , 2776-11 ####[facility] LABCLIA [id number] [place] [address] [place] Glucose [Mass/Vol] 131 mg/dL High 74-99 [facility] Comment on above: Order Comment: Uday covington Type: BLOOD SPECIMENOrdering Facility: [facility] Address: [address] [place] [address] Result Comment: The [place] [employer] (ADA) provides guidance for cutoff [...] Standards of Medical Care in Diabetes 2016, [place] [employer]. Diabetes Care. 2016.39(Suppl 1). Performed By: #### 2 432-, , 2776-11 ####[facility] LABIA [id number] [address] [address] [place] Potassium [Moles/Vol] 4.3 mmol/L Normal 3.7-5.1 [facility] Comment on above: Order Comment: Speci men Type: BLOOD SPECIMENOrdering Facility: [facility] Address: [address] [place], [place] [address] Performed By: #### 2 4320-, 1988-03, , 2776-11 ####[facility] LABIA [id number] [place] [address] [place] Sodium [Moles/Vol] 137 mmol/L Normal 136-144 [facility] Comment on above: Order Comment: Speci men Type: BLOOD SPECIMENOrdering Facility: [facility] Address: [address] [place], [place] [address] Performed By: #### 2 4320-, 1988-03, , 2776-11 ####[facility] LABIA [id number] [place] [address] [place] Urea nitrogen [Mass/Vol] 8 mg/dL Normal 7- [facility] Comment on above: Order Comment: Speci men Type: BLOOD SPECIMENOrdering Facility: [facility] Address: [address] [place], [place] [address] Performed By: #### 2 [address]-29, 1988-03, , 2776-11 ####[facility] LABIA [id number] [place] [id number] [place] CASE MGT INIT ASSESon 2022 CASE MGT INIT ASSES Normal [facility] CBC W Auto Differential pane l (Bld)on 2023 Basophils (Bld) [#/Vol] 0.03 10*3/uL Normal <0.11 [facility] Comment on above: Order Comment: Speci men Type: BLOOD SPECIMENOrdering Facility: [facility] Address: [address] Performed By: #### 5 7021-8 ####[facility] LABCLIA [id number] [address] STATES [facility] Basophils/100 WBC (Bld) 0.3 % Normal [facility] Comment on above: Order Comment: Speci men Type: BLOOD SPECIMENOrdering Facility: [facility] Address: [address] Performed By: #### 5 7021-8 ####[facility] LABCLIA [id number] [address] [place] Differential cell count method Nom (Bld) Auto Normal [facility] Comment on above: Order Comment: Speci men Type: BLOOD SPECIMENOrdering Facility: [facility] Address: [address] [place], [place] [address] Performed By: #### 5 7021-8 ####[facility] LABCLIA [id number] [place] [address] [place] Eosinophils (Bld) [#/Vol] 0.03 10*3/uL Normal <0.46 [facility] Comment on above: Order Comment: Speci men Type: BLOOD SPECIMENOrdering Facility: [facility] Address: [address] Performed By: #### 5 7021-8 ####[facility] LABCLIA [id number] [address] [place] Eosinophils/100 WBC (Bld) 0.3 % Normal [facility] Comment on above: Order Comment: Speci men Type: BLOOD SPECIMENOrdering Facility: [facility] Address: [address] [place], [place] [address] Performed By: #### 5 7021-8 ####[facility] LABCLIA [id number] [id number] [address] [place] Erythrocyte distribution width (RBC) [Ratio] 13.5 % Normal 11.5-15.0 [facility] Comment on above: Order Comment: Speci men Type: BLOOD SPECIMENOrdering Facility: [facility] Address: [address] [place] [address] Performed By: #### 5 7021-8 ####[facility] LABCLIA [id number] [place] [address] [place] Hematocrit (Bld) [Volume fraction] 34.8 % Low 36.0-46.0 [facility] Comment on above: Order Comment: Speci men Type: BLOOD SPECIMENOrdering Facility: [facility] Address: [address] [place] [address] Performed By: #### 5 7021-8 ####[facility] LABCLIA [id number] [place] [address] [place] Hemoglobin (Bld) [Mass/Vol] 11.6 g/dL Normal 11.5-15.5 [facility] Comment on above: Order Comment: Speci men Type: BLOOD SPECIMENOrdering Facility: [facility] Address: [address] [place], [place] [address] Performed By: #### 5 7021-8 ####[facility] LABCLIA [id number] [place] [address] [place] Immature granulocytes (Bld) [#/Vol] 0.06 10*3/uL Normal <0.10 [facility] Comment on above: Order Comment: Speci men Type: BLOOD SPECIMENOrdering Facility: [facility] Address: [address] [place], [place] [address] Performed By: #### 5 7021-8 ####[facility] LABCLIA [id number] [address] [place] Immature granulocytes/100 WBC (Bld) 0.5 % Normal [facility] Comment on above: Order Comment: Speci men Type: BLOOD SPECIMENOrdering Facility: [facility] Address: [address] Performed By: #### 5 7021-8 ####[facility] LABCLIA [id number] [address] STATES OF [facility] Lymphocytes (Bld) [#/Vol] 0.85 10*3/uL Low 1.00-4.00 [facility] Comment on above: Order Comment: Speci men Type: BLOOD SPECIMENOrdering Facility: [facility] Address: [address] [place] [address] Performed By: #### 5 7021-8 ####[facility] LABCLIA [id number] [address] [place] Lymphocytes/100 WBC (Bld) 7.4 % Normal [facility] Comment on above: Order Comment: Speci men Type: BLOOD SPECIMENOrdering Facility: [facility] Address: [address] [place], [place] [address] Performed By: #### 5 7021-8 ####[facility] LABCLIA [id number] [place] [address] [place] MCH (RBC) [Entitic mass] 30.8 pg Normal 26.0-34.0 [facility] Comment on above: Order Comment: Speci men Type: BLOOD SPECIMENOrdering Facility: [facility] Address: [address] Performed By: #### 5 7021-8 ####[facility] LABCLIA [id number] [place] [address] [place] MCHC (RBC) [Mass/Vol] 33.3 g/dL Normal 30.5-36.0 [facility] Comment on above: Order Comment: Speci men Type: BLOOD SPECIMENOrdering Facility: [facility] Address: [address] [place], [place] [address] Performed By: #### 5 7021-8 ####[facility] LABCLIA [id number] [place] [address] [place] MCV (RBC) [Entitic vol] 92.3 fL Normal 80.0-100.0 [facility] Comment on above: Order Comment: Speci men Type: BLOOD SPECIMENOrdering Facility: [facility] Address: [address] [place] [address] Performed By: #### 5 7021-8 ####[facility] LABIA [id number] [place] [address] [place] Monocytes (Bld) [#/Vol] 0.81 10*3/uL Normal <0.87 [facility] Comment on above: Order Comment: Speci men Type: BLOOD SPECIMENOrdering Facility: [facility] Address: [address] [place] [address] Performed By: #### 5 7021-8 ####[facility] LABIA [id number] [place] [address] [place] Monocytes/100 WBC (Bld) 7.1 % Normal [facility] Comment on above: Order Comment: Speci men Type: BLOOD SPECIMENOrdering Facility: [facility] Address: [address] [place] [address] Performed By: #### 5 7021-8 ####[facility] LABIA [id number] [place] [address] [place] Neutrophils (Bld) [#/Vol] 9.66 10*3/uL High 1.45-7.50 [facility] Comment on above: Order Comment: Speci men Type: BLOOD SPECIMENOrdering Facility: [facility] Address: [address] [place], [place] [address] Performed By: #### 5 7021-8 ####[facility] LABIA [id number] [place] [address] [place] Neutrophils/100 WBC (Bld) 84.4 % Normal [facility] Comment on above: Order Comment: Speci men Type: BLOOD SPECIMENOrdering Facility: [facility] Address: [address] [place] [address] Performed By: #### 5 7021-8 ####[facility] LABIA [id number] [place] [address] [place] Nucleated RBC (Bld) [#/Vol] 10*3/uL Normal <0.01 [facility] Comment on above: Order Comment: Speci men Type: BLOOD SPECIMENOrdering Facility: [facility] Address: [address] [place] [address] Performed By: #### 5 7021-8 ####[facility] LABIA [id number] [place] [address] [place] Nucleated RBC/100 WBC (Bld) [Ratio] 0.0 /100 WBC Normal [facility] Comment on above: Order Comment: Speci men Type: BLOOD SPECIMENOrdering Facility: [facility] Address: [address] [place] [address] Performed By: #### 5 7021-8 ####[facility] LABIA [id number] [place] [address] [place] Platelet mean volume (Bld) [Entitic vol] 9.8 fL Normal 9.0-12.7 [facility] Comment on above: Order Comment: Speci men Type: BLOOD SPECIMENOrdering Facility: [facility] Address: [address] [place] [address] Performed By: #### 5 7021-8 ####[facility] LABIA [id number] [place] [address] [place] Platelets (Bld) [#/Vol] 226 10*3/uL Normal 150-400 [facility] Comment on above: Order Comment: Speci men Type: BLOOD SPECIMENOrdering Facility: [facility] Address: [address] [place] [address] Performed By: #### 5 7021-8 ####[facility] LABCLIA [id number] [place] [address] [place] RBC (Bld) [#/Vol] 3.77 10*6/uL Low 3.90-5.20 [facility] Comment on above: Order Comment: Speci men Type: BLOOD SPECIMENOrdering Facility: [facility] Address: [address] [place], [place] [address] Performed By: #### 5 7021-8 ####[facility] LABIA [id number] [place] [address] [place] WBC (Bld) [#/Vol] 11.44 10*3/uL High 3.70-11.00 [facility] Comment on above: Order Comment: Speci men Type: BLOOD SPECIMENOrdering Facility: [facility] Address: [address] [place], [place] [address] Performed By: #### 5 7021-8 ####[facility] LABIA [id number] [place] [address] [place] Basophils (Bld) [#/Vol] 10*3/uL Normal <0.11 [facility] Comment on above: Order Comment: Speci men Type: BLOOD SPECIMENOrdering Facility: [facility] Address: [address] [place], [place] [address] Performed By: #### 5 7021-8 ####[facility] LABIA [id number] [place] [address] [place] Basophils/100 WBC (Bld) 0.2 % Normal [facility] Comment on above: Order Comment: Speci men Type: BLOOD SPECIMENOrdering Facility: [facility] Address: [address] [place], [place] [address] Performed By: #### 5 7021-8 ####[facility] LABIA [id number] [place] [address] [place] Differential cell count method Nom (Bld) Auto Normal [facility] Comment on above: Order Comment: Speci men Type: BLOOD SPECIMENOrdering Facility: [facility] Address: [address] Performed By: #### 5 7021-8 ####[facility] LABCLIA [id number] [place] [address] [place] Eosinophils (Bld) [#/Vol] 10*3/uL Normal <0.46 [facility] Comment on above: Order Comment: Speci men Type: BLOOD SPECIMENOrdering Facility: [facility] Address: [address] [place], [place] [address] Performed By: #### 5 7021-8 ####[facility] LABCLIA [id number] [address] [place] Eosinophils/100 WBC (Bld) 0.0 % Normal [facility] Comment on above: Order Comment: Speci men Type: BLOOD SPECIMENOrdering Facility: [facility] Address: [address] [place], [place] [address] Performed By: #### 5 7021-8 ####[facility] LABCLIA [id number] [place] [address] [place] Erythrocyte distribution width (RBC) [Ratio] 13.5 % Normal 11.5-15.0 [facility] Comment on above: Order Comment: Speci men Type: BLOOD SPECIMENOrdering Facility: [facility] Address: [address] Performed By: #### 5 7021-8 ####[facility] LABCLIA [id number] [place] [address] [place] Hematocrit (Bld) [Volume fraction] 39.6 % Normal 36.0-46.0 [facility] Comment on above: Order Comment: Speci men Type: BLOOD SPECIMENOrdering Facility: [facility] Address: [address] Performed By: #### 5 7021-8 ####[facility] LABCLIA [id number] [place] [address] [place] Hemoglobin (Bld) [Mass/Vol] 13.0 g/dL Normal 11.5-15.5 [facility] Comment on above: Order Comment: Speci men Type: BLOOD SPECIMENOrdering Facility: [facility] Address: [address] Performed By: #### 5 7021-8 ####[facility] LABCLIA [id number] [place] [address] [place] Immature granulocytes (Bld) [#/Vol] 0.07 10*3/uL Normal <0.10 [facility] Comment on above: Order Comment: Speci men Type: BLOOD SPECIMENOrdering Facility: [facility] Address: [address] [place], [place] [address] Performed By: #### 5 7021-8 ####[facility] LABIA [id number] [place] [address] [place] Immature granulocytes/100 WBC (Bld) 0.5 % Normal [facility] Comment on above: Order Comment: Speci men Type: BLOOD SPECIMENOrdering Facility: [facility] Address: [address] [place], [place] [address] Performed By: #### 5 7021-8 ####[facility] LABCLIA [id number] [place] [address] [place] Lymphocytes (Bld) [#/Vol] 0.36 10*3/uL Low 1.00-4.00 [facility] Comment on above: Order Comment: Speci men Type: BLOOD SPECIMENOrdering Facility: [facility] Address: [address] [place], [place] [address] Performed By: #### 5 7021-8 ####[facility] LABCLIA [id number] [address] STATES [facility] Lymphocytes/100 WBC (Bld) 2.8 % Normal [facility] Comment on above: Order Comment: Speci men Type: BLOOD SPECIMENOrdering Facility: [facility] Address: [address] [place] [address] Performed By: #### 5 7021-8 ####[facility] LABCLIA [id number] [address] [place] [facility] MCH (RBC) [Entitic mass] 31.0 pg Normal 26.0-34.0 [facility] Comment on above: Order Comment: Speci men Type: BLOOD SPECIMENOrdering Facility: [facility] Address: [address] [place], [place] [address] Performed By: #### 5 7021-8 ####[facility] LABCLIA [id number] [address] [place] MCHC (RBC) [Mass/Vol] 32.8 g/dL Normal 30.5-36.0 [facility] Comment on above: Order Comment: Speci men Type: BLOOD SPECIMENOrdering Facility: [facility] Address: [address] [place], [place] [address] Performed By: #### 5 7021-8 ####[facility] LABIA [id number] [address] [place] MCV (RBC) [Entitic vol] 94.5 fL Normal 80.0-100.0 [facility] Comment on above: Order Comment: Speci men Type: BLOOD SPECIMENOrdering Facility: [facility] Address: [address] [place], [place] [address] Performed By: #### 5 7021-8 ####[facility] LABCLIA [id number] [place] [address] [place] Monocytes (Bld) [#/Vol] 0.17 10*3/uL Normal <0.87 [facility] Comment on above: Order Comment: Speci men Type: BLOOD SPECIMENOrdering Facility: [facility] Address: [address] Performed By: #### 5 7021-8 ####[facility] LABCLIA [id number] [place] [address] [place] Monocytes/100 WBC (Bld) 1.3 % Normal [facility] Comment on above: Order Comment: Speci men Type: BLOOD SPECIMENOrdering Facility: [facility] Address: [address] Performed By: #### 5 7021-8 ####[facility] LABCLIA [id number] [place] [address] [place] Neutrophils (Bld) [#/Vol] 12.36 10*3/uL High 1.45-7.50 [facility] Comment on above: Order Comment: Speci men Type: BLOOD SPECIMENOrdering Facility: [facility] Address: [address] Performed By: #### 5 7021-8 ####[facility] LABCLIA [id number] [place] [address] [place] Neutrophils/100 WBC (Bld) 95.2 % Normal [facility] Comment on above: Order Comment: Speci men Type: BLOOD SPECIMENOrdering Facility: [facility] Address: [address] Performed By: #### 5 7021-8 ####[facility] LABCLIA [id number] [place] [address] [place] Nucleated RBC (Bld) [#/Vol] 10*3/uL Normal <0.01 [facility] Comment on above: Order Comment: Speci men Type: BLOOD SPECIMENOrdering Facility: [facility] Address: [address] Performed By: #### 5 7021-8 ####[facility] LABCLIA [id number] [place] [address] [place] Nucleated RBC/100 WBC (Bld) [Ratio] 0.0 /100 WBC Normal [facility] Comment on above: Order Comment: Speci men Type: BLOOD SPECIMENOrdering Facility: [facility] Address: [address] [place] [address] Performed By: #### 5 7021-8 ####[facility] [id number] [place] [address] [place] Platelet mean volume (Bld) [Entitic vol] 9.9 fL Normal 9.0-12.7 [facility] Comment on above: Order Comment: Speci men Type: BLOOD SPECIMENOrdering Facility: [facility] Address: [address] [place] [address] Performed By: #### 5 7021-8 ####[facility] [id number] [place] [address] [place] Platelets (Bld) [#/Vol] 234 10*3/uL Normal 150-400 [facility] Comment on above: Order Comment: Speci men Type: BLOOD SPECIMENOrdering Facility: [facility] Address: [address] [place], [place] [address] Performed By: #### 5 7021-8 ####[facility] [id number] [place] [address] [place] RBC (Bld) [#/Vol] 4.19 10*6/uL Normal 3.90-5.20 [facility] Comment on above: Order Comment: Speci men Type: BLOOD SPECIMENOrdering Facility: [facility] Address: [address] [place], [place] [address] Performed By: #### 5 7021-8 ####[facility] [id number] [place] [address] [place] WBC (Bld) [#/Vol] 12.98 10*3/uL High 3.70-11.00 [facility] Comment on above: Order Comment: Speci men Type: BLOOD SPECIMENOrdering Facility: [facility] Address: [address] [place] [address] Performed By: #### 5 7021-8 ####[facility] LABCLIA [id number] [place] [address] [place] [facility] CRP SerPl-ncon 2023 CRP [Mass/Vol] 1.5 mg/dL High <0.9 [facility] Comment on above: Order Comment: Speci men Type: BLOOD SPECIMENOrdering Facility: [facility] Address: [address] [place] [address] Performed By: #### 1 -5, , 2776-, 42626-7 ####[facility] LABCLIA [id number] [place] [address] [place] CRP [Mass/Vol] 0.5 mg/dL Normal <0.9 [facility] Comment on above: Order Comment: Speci men Type: BLOOD SPECIMENOrdering Facility: [facility] Address: [address] [place] [address] Performed By: #### 2 4321-2, 1988-03, , 2776-11 ####[facility] LABCLIA [id number] [place] [address] [place] Magnesium SerPl-mCncon 02-15 Magnesium [Mass/Vol] 2.1 mg/dL Normal 1.7-2.3 [facility] Comment on above: Order Comment: Speci men Type: BLOOD SPECIMENOrdering Facility: [facility] Address: [address] [place] [address] Performed By: #### 1 98-5, , 277-, 87118-1 ####[facility] LABCLIA [id number] [address] [address] [place] Magnesium [Mass/Vol] 1.8 mg/dL Normal 1.7-2.3 [facility] Comment on above: Order Comment: Speci men Type: BLOOD SPECIMENOrdering Facility: [facility] Address: [address] [place] [id number] Performed By: #### 2 4321-2, 1988-03, , 2776-11 ####[facility] LABCLIA [id number] [address] [address] [place] PT EDon 2023 PT ED Normal [facility] Phosphate SerPl-mCncon 02-15 Phosphate [Mass/Vol] 2.6 mg/dL Low 2.7-4.8 [facility] Comment on above: Order Comment: Speci men Type: BLOOD SPECIMENOrdering Facility: [facility] Address: [address] [facility] [address] Performed By: #### 1 , , 2776-11, 85910-7 ####[facility] LABCLIA [id number] [place] [address] [place] Phosphate [Mass/Vol] 3.8 mg/dL Normal 2.7-4.8 [facility] Comment on above: Order Comment: Speci men Type: BLOOD SPECIMENOrdering Facility: [facility] Address: [address] [place] [id number] Performed By: #### 2 432-2, 1988-03, , 2776-11 ####[facility] LABCLIA [id number] [place] [id number] [place] ANES POSTPROC EVALon 023 ANES POSTPROC EVAL Normal [facility] ANES PRE-OPon 02-14-2023 ANES PRE-OP Normal [facility] BRIEF OP NOTon 02-14-2023 BRIEF OP NOT Normal [facility] OPERATIVE NOon 02-14-2023 OPERATIVE NO Normal [facility] SURGICAL PATHOLOGYon 023 CASE REPORT Normal [facility] Comment on above: Order Comment: Uday covington Type: TISSUE SPECIMENOrdering Facility: [facility] Address: [address] [place] [address] Result Comment: Surg ical Pathology Report Case: [id number] Provider: Hilary Shaffer MD Collected: 02/14/2023 03:58 PMOrdering Location: Admitting Received: 02/14/2023 06:01 PMPathologist: DAX Lightpecimen: COLON RESECTION, ileocolic resection Performed By: #### S ####[facility] [id number] [place] [address] [place] CLINICAL HISTORY Normal [facility] Comment on above: Order Comment: Uday covington Type: TISSUE SPECIMENOrdering Facility: [facility] Address: [address] [place] [address] Result Comment: Pre- op diagnosis:Crohn's disease of small and large intestines with complication (HCC) [K50.819] Performed By: #### S ####[facility] [id number] [address] [place] DIAGNOSIS COMMENT Normal [facility] Comment on above: Order Comment: Uday covington Type: TISSUE SPECIMENOrdering Facility: [facility] Address: [address] [place] [address] Result Comment: Spec ial stains for AF[employer] [...] been determined by the performing laboratory within [facility]???s [facility] ([place], [facility], [facility], [facility], [facility], or [facility]) in a manner consistent with CLIA requirements. One or more of these tests have not been cleared or approved by the FDA. [facility] is regulated under CLIA as qualified to perform high-complexity testing. These tests are used for clinical purposes. They should not be regarded as investigational or for research. Positive and negative controls stain appropriately. Performed By: #### S ####[facility] LABCLIA [id number] [address] FINAL DIAGNOSIS Normal [facility] Comment on above: Order Comment: Speci men Type: TISSUE SPECIMENOrdering Facility: [facility] Address: [address] [place] [address] Result Comment: A. I leum, colon, and appendix, resection:-Segment of ileum and colon with chronic active enteritis, ulcer, stricture, non-necrotizing granuloma, and transmural inflammation; compatible with the patient's history of Crohn disease.-Negative for dysplasia.-Endometriosis involving serosa.-The surgical resection margins are negative for neutrophilic inflammation.-Five lymph nodes with no diagnostic abnormalities.-Appendix with no diagnostic abnormalities.KENIA/JESUS 02/22/23 Performed By: #### S ####[facility] LABCLIA [id number] [address] FINAL PERFORMING LAB Normal [facility] Comment on above: Order Comment: Speci men Type: TISSUE SPECIMENOrdering Facility: [facility] Address: [address] [address] Result Comment: Diag nostic interpretation performed at [facility], [address] [address] CLIA# [id number] Director: Scot Poole M.D. Performed By: #### S ####[facility] LABCLIA [id number] [address] [place] GROSS DESCRIPTION Normal [facility] Comment on above: Order Comment: Speci men Type: TISSUE SPECIMENOrdering Facility: [facility] Address: [address] [place] [place] [id number] Result Comment: A. C OLON RESECTIONReceived in [...] lumen filled with green fluid and pink-claire mucosa.Ecommerce Marketing Specialist sections are submitted as follows:A1: Proximal and distal mucosal margins, perpendicularA2-A5: Ecommerce Marketing Specialist strictureA6: Bisected appendiceal tip and life assurance representative cross-sectionA7: 5 possible lymph nodes, submitted in totoGross examination performed at [facility], [address] [place] [id number] 02/15/23 6:54 PM Performed By: #### S ####[facility] LABCLIA [id number] [address] [place] 25(OH)D3 SerPl-mCncon 2022 25-hydroxyvitamin D3 [Mass/Vol] 54.3 ng/mL Normal 31.0-80.0 [facility] Comment on above: Order Comment: Speci men Type: BLOOD SPECIMENOrdering Facility: [facility] Address: [address] [place] [address] Performed By: #### 1 989-3 ####[facility] LABIA [id number] [place] [address] [place] LYLA BY IFA WITH REFLEXon LYLA PATTERN Centromere Normal [facility] Comment on above: Order Comment: Speci men Type: BLOOD SPECIMENOrdering Facility: [facility] Address: [address] [place] [address] Performed By: #### 5 1775-5, 99106-6, 75966-1, 45165-6, 13273-0, 62368-9, 11648-0, 26666-1, 48074-3, ANAIFR ####[facility] LABIA [id number] [place] [address] [place] LYLA TITER >1:1280 Normal [facility] Comment on above: Order Comment: Speci men Type: BLOOD SPECIMENOrdering Facility: [facility] Address: [address] [place] [address] Performed By: #### 5 1775-5, 78298-2, 14229-7, 76076-1, 87831-1, 32438-8, 22836-6, 19766-5, 78199-6, ANAIFR ####[facility] [id number] [place] [address] [place] Nuclear Ab IF (S) [Titer] Positive Abnormal Negative [facility] Comment on above: Order Comment: Speci men Type: BLOOD SPECIMENOrdering Facility: [facility] Address: [address] [place] [address] Result Comment: Anti -nuclear antibody test is used as an aid in diagnosis of systemic autoimmune diseases. Where positive and clinically warranted, follow-up using disease-specific testing is recommended. Low positive titers are not uncommon with advanced age, certain chronic infections, and malignancies among others.Test methodology: Indirect fluorescence immunoassay (IFA) using HEp-2 cells. Performed By: #### 5 1775-5, 41396-2, 05489-1, 79421-5, 78652-0, 97017-9, 46580-3, 65913-7, 85303-7, ANAIFR ####[facility] LABIA [id number] [place] [address] [place] BETA 2 GLYCOPROTEIN, IGGon 0 02-11-2023 Beta 2 glycoprotein 1 IgG IA Qn <9 Normal <20 [facility] Comment on above: Order Comment: Uday covington Type: BLOOD SPECIMENOrdering Facility: [facility] Address: [address] [place] [address] Result Comment: <20 SGU Thhtzvik58-80 SGU Low Positive>80 SGU High PositiveThese results were obtained with the [employer] QUANTA Lite B2 GPI IgG DONTRELL. B2 GPI IgG values obtained with different manufacturers' assay methods may not be used interchangeably. The magnitude of the reported IgG levels cannot be correlated to an endpoint titer. Performed By: #### 3 3935-8, BETA2G, BETA2M, 5076-5, CARDIG ####[facility] LABIA [id number] [place] [address] [place] BETA 2 GLYCOPROTEIN, IGMon 0 02-11-2023 Beta 2 glycoprotein 1 IgM IA Qn 38 [facility] High <20 [facility] Comment on above: Order Comment: Speci men Type: BLOOD SPECIMENOrdering Facility: [facility] Address: [address] [place] [address] Result Comment: <20 [facility]U Jfcaapjv69-06 SMU Low Positive>80 [facility] High positiveThese results were obtained with the [employer] QUANTA Lite B2 GPI IgM DONTRELL. B2 GPI IgM values obtained with different manufacturers' assay methods may not be used interchangeably. The magnitude of the reported IgM levels cannot be correlated to an endpoint titer. Performed By: #### 3 3935-8, BETA2G, BETA2M, 5076-5, CARDIG ####[facility] LABCLIA [id number] [address] CARDIOLIPIN IGG ABSon 2022 Cardiolipin IgG IA Qn (S) <9.0 Normal <15.0 [facility] Comment on above: Order Comment: Speci men Type: BLOOD SPECIMENOrdering Facility: [facility] Address: [address] [place] [address] Result Comment: <15 GPL [id number] GPL Indeterminate>20 GPL PositiveThe following results were obtained with the [employer] QUANTA Lite HARPREET IgG III DONTRELL. Cardiolipin IgG values obtained with the different manufacturers' assay methods may not be used interchangeably. The magnitude of the reported IgG levels cannot be correlated to an endpoint titer. Performed By: #### 3 3935-8, BETA2G, BETA2M, 5076-5, JUSTUS ####[facility] LABIA [id number] [address] CARDIOLIPIN IGM ABSon 2022 Cardiolipin IgM IA Qn (S) 17.9 MPL High <12.5 [facility] Comment on above: Order Comment: Speci men Type: BLOOD SPECIMENOrdering Facility: [facility] Address: [address] [place] [address] Result Comment: <12. 5 MPL Rtwlkwlu61.5-20 MPL Indeterminate>20 MPL PositiveThe following results were obtained with the [employer] QUANTA Lite HARPREET IgM III DONTRELL. Cardiolipin IgM values obtained with the different manufacturers' assay methods may not be used interchangeably. The magnitude of the reported IgM levels cannot be correlated to an endpoint titer.??? Performed By: #### C GORGE ####[facility] LABCLIA [id number] [address] CBC panel Auto (Bld)on 02-11 Erythrocyte distribution width (RBC) [Ratio] 13.6 % Normal 11.5-15.0 [facility] Comment on above: Order Comment: Speci men Type: BLOOD SPECIMENOrdering Facility: [facility] Address: [address] Performed By: #### 5 8410-2 ####[facility] LABIA [id number] [place] [address] [place] Hematocrit (Bld) [Volume fraction] 42.5 % Normal 36.0-46.0 [facility] Comment on above: Order Comment: Speci men Type: BLOOD SPECIMENOrdering Facility: [facility] Address: [address] Performed By: #### 5 8410-2 ####[facility] LABIA [id number] [address] [place] Hemoglobin (Bld) [Mass/Vol] 13.6 g/dL Normal 11.5-15.5 [facility] Comment on above: Order Comment: Speci men Type: BLOOD SPECIMENOrdering Facility: [facility] Address: [address] [place], [place] [address] Performed By: #### 5 8410-2 ####[facility] LABIA [id number] [place] [address] [place] MCH (RBC) [Entitic mass] 30.4 pg Normal 26.0-34.0 [facility] Comment on above: Order Comment: Speci men Type: BLOOD SPECIMENOrdering Facility: [facility] Address: [address] Performed By: #### 5 8410-2 ####[facility] LABIA [id number] [place] [address] [place] MCHC (RBC) [Mass/Vol] 32.0 g/dL Normal 30.5-36.0 [facility] Comment on above: Order Comment: Speci men Type: BLOOD SPECIMENOrdering Facility: [facility] Address: [address] [place], [place] [address] Performed By: #### 5 8410-2 ####[facility] LABCLIA [id number] [place] [address] [place] MCV (RBC) [Entitic vol] 94.9 fL Normal 80.0-100.0 [facility] Comment on above: Order Comment: Speci men Type: BLOOD SPECIMENOrdering Facility: [facility] Address: [address] [place] [address] Performed By: #### 5 8410-2 ####[facility] LABIA [id number] [place] [address] [place] Nucleated RBC (Bld) [#/Vol] 10*3/uL Normal <0.01 [facility] Comment on above: Order Comment: Speci men Type: BLOOD SPECIMENOrdering Facility: [facility] Address: [address] Performed By: #### 5 8410-2 ####[facility] LABIA [id number] [place] [address] [place] Platelet mean volume (Bld) [Entitic vol] 9.6 fL Normal 9.0-12.7 [facility] Comment on above: Order Comment: Speci men Type: BLOOD SPECIMENOrdering Facility: [facility] Address: [address] [place] [address] Performed By: #### 5 8410-2 ####[facility] LABIA [id number] [place] [address] [place] Platelets (Bld) [#/Vol] 305 10*3/uL Normal 150-400 [facility] Comment on above: Order Comment: Speci men Type: BLOOD SPECIMENOrdering Facility: [facility] Address: [address] [place] [address] Performed By: #### 5 8410-2 ####[facility] LABCLIA [id number] [place] [address] [place] RBC (Bld) [#/Vol] 4.48 10*6/uL Normal 3.90-5.20 [facility] Comment on above: Order Comment: Speci men Type: BLOOD SPECIMENOrdering Facility: [facility] Address: [address] [place] [address] Performed By: #### 5 8410-2 ####[facility] LABCLIA [id number] [place] [address] [place] WBC (Bld) [#/Vol] 8.04 10*3/uL Normal 3.70-11.00 [facility] Comment on above: Order Comment: Speci men Type: BLOOD SPECIMENOrdering Facility: [facility] Address: [address] [place] [address] Performed By: #### 5 8410-2 ####[facility] LABCLIA [id number] [place] [address] [place] CNCNPATEDon 02-11-2023 CNCNPATED Normal [facility] CNOVon 02-11-2023 CNOV Normal [facility] CONFIRM BLOOD TYPEon 023 ABO B Normal [facility] Comment on above: Order Comment: Speci men Type: BLOOD SPECIMENOrdering Facility: [facility] Address: [address] [place] [address] Performed By: #### C ONABO ####[facility] BLOOD BANKCLIA [id number] [place] [address] [place] Rh Nom (Bld) Positive Normal [facility] Comment on above: Order Comment: Speci men Type: BLOOD SPECIMENOrdering Facility: [facility] Address: [address] [place] [address] Performed By: #### C ONABO ####[facility] BLOOD BANKCLIA [id number] [place] [address] [place] CRP SerPl-mCncon 02-11-2023 CRP [Mass/Vol] mg/L Normal <0.9 [facility] Comment on above: Order Comment: Uday covington Type: BLOOD SPECIMENOrdering Facility: [facility] Address: [address] [place] [address] Performed By: #### 2 4323-8, 1988-5, 2731-8, 92762-2 ####[facility] LABIA [id number] [address] [facility] Cardiolipin IgA Ser IA-aCnco n 02-11-2023 Cardiolipin IgA IA Qn (S) <9.0 Normal <12.0 [facility] Comment on above: Order Comment: Uday covington Type: BLOOD SPECIMENOrdering Facility: [facility] Address: [address] [place] [address] Result Comment: <12 APL Cwsvbkfu54-15 APL Indeterminate>20 APL PositiveThe following results were obtained with the BoomsenseA Lite HARPREET IgA III DONTRELL. Cardiolipin IgA values obtained with the different manufacturers' assay methods may not be used interchangeably. The magnitude of the reported IgA levels cannot be correlated to an endpoint titer. Performed By: #### 3 3935-8, BETA2G, BETA2M, 5076-5, CARDIG ####[facility] [id number] [address] [place] Centromere Ab IF Ql (S)on Centromere Ab Qn (S) >8.0 High <1.0 [facility] Comment on above: Order Comment: Uday covington Type: BLOOD SPECIMENOrdering Facility: [facility] Address: [address] [place] [address] Result Comment: Anti -centromere antibody is used as in aid in diagnosis of systemic sclerosis. Clinical correlation is required.Test Methodology: Multiplex flow immunoassay. Performed By: #### 5 1775-5, 95568-1, 86959-6, 00635-6, 61850-7, 91427-6, 19350-6, 85376-5, 92410-2, ANAIFR ####[facility] LABCLIA [id number] [place] [address] [place] CENTROMERE AB QUAL Positive Abnormal Negative [facility] Comment on above: Order Comment: Speci men Type: BLOOD SPECIMENOrdering Facility: [facility] Address: [address] [place] [address] Performed By: #### 5 1775-5, 53224-2, 85818-2, 30578-6, 00839-7, 76864-4, 73744-1, 79399-4, 46494-6, ANAIFR ####[facility] LABCLIA [id number] [place] [address] [place] Chromatin Ab Qnon 02-11-2023 CHROMATIN AB QUAL Negative Normal Negative [facility] Comment on above: Order Comment: Speci men Type: BLOOD SPECIMENOrdering Facility: [facility] Address: [address] [place] [address] Performed By: #### 5 1775-5, 43905-5, 50031-9, 25709-5, 05187-7, 34288-8, 38658-0, 34546-6, 92613-7, ANAIFR ####[facility] LABCLIA [id number] [place] [address] [place] Chromatin Ab SerPl-aCncon Chromatin Ab Qn <0.2 Normal <1.0 [facility] Comment on above: Order Comment: Speci men Type: BLOOD SPECIMENOrdering Facility: [facility] Address: [address] [place] [address] Result Comment: Test Methodology: Multiplex flow immunoassay. Performed By: #### 5 1775-5, 20963-6, 75616-3, 27296-9, 20646-0, 60195-6, 14759-5, 45297-1, 15926-6, ANAIFR ####[facility] LABCLIA [id number] [place] [address] [place] Comprehensive metabolic 2000 panelon 02-11-2023 Albumin [Mass/Vol] 4.4 g/dL Normal 3.9-4.9 [facility] Comment on above: Order Comment: Speci men Type: BLOOD SPECIMENOrdering Facility: [facility] Address: [address] [place] [address] Performed By: #### 2 8, 1988-03, 2731-06, ####[facility] LABCLIA [id number] [place] [address] [place] ALP [Catalytic activity/Vol] 78 U/L Normal 34-123 [facility] Comment on above: Order Comment: Speci men Type: BLOOD SPECIMENOrdering Facility: [facility] Address: [address] [place] [address] Performed By: #### 2 8, 1988-03, 2731-06, ####[facility] LABCLIA [id number] [place] [address] [place] ALT [Catalytic activity/Vol] 15 U/L Normal 7-38 [facility] Comment on above: Order Comment: Speci men Type: BLOOD SPECIMENOrdering Facility: [facility] Address: [address] [place] [address] Performed By: #### 2 8, 1988-03, 2731-06, ####[facility] LABCLIA [id number] [place] [id number] [place] Anion gap [Moles/Vol] 10 mmol/L Normal 9-18 [facility] Comment on above: Order Comment: Speci men Type: BLOOD SPECIMENOrdering Facility: [facility] Address: [address] [place] [address] Performed By: #### 2 8, 1988-03, 2731-06, ####[facility] LABCLIA [id number] [place] [address] [place] AST [Catalytic activity/Vol] 16 U/L Normal 13-35 [facility] Comment on above: Order Comment: Speci men Type: BLOOD SPECIMENOrdering Facility: [facility] Address: [address] [place] [address] Performed By: #### 2 4328, 1988-03, 2731-06, ####[facility] LABCLIA [id number] [place] [address] [place] Bilirubin [Mass/Vol] 0.3 mg/dL Normal 0.2-1.3 [facility] Comment on above: Order Comment: Speci men Type: BLOOD SPECIMENOrdering Facility: [facility] Address: [address] [place] [address] Performed By: #### 2 4328, 1988-03, 2731-06, ####[facility] LABCLIA [id number] [place] [address] [place] Calcium [Mass/Vol] 9.5 mg/dL Normal 8.5-10.2 [facility] Comment on above: Order Comment: Speci men Type: BLOOD SPECIMENOrdering Facility: [facility] Address: [address] [place], [place] [address] Performed By: #### 2 4328, 1988-03, 2731-06, ####[facility] LABCLIA [id number] [place] [address] [place] Chloride [Moles/Vol] 102 mmol/L Normal 97-105 [facility] Comment on above: Order Comment: Speci men Type: BLOOD SPECIMENOrdering Facility: [facility] Address: [address] [place] [address] Performed By: #### 2 4328, 1988-03, 2731-06, ####[facility] LABCLIA [id number] [place] [address] [place] CO2 [Moles/Vol] 27 mmol/L Normal 22-30 [facility] Comment on above: Order Comment: Speci men Type: BLOOD SPECIMENOrdering Facility: [facility] Address: [address] [place] [address] Performed By: #### 2 4328, 1988-03, 2731-06, ####[facility] LABIA [id number] [place] [address] [place] Creatinine [Mass/Vol] 0.83 mg/dL Normal 0.58-0.96 [facility] Comment on above: Order Comment: Speci men Type: BLOOD SPECIMENOrdering Facility: SELECT [facility] Address: [address] [place] [address] Performed By: #### 2 4328, 1988-03, 2731-06, ####[facility] [id number] [place] [address] [place] ESTIMATED GLOMERULAR FILTRATION RATE 92 mL/min/1.73m??? Normal >=60 [facility] Comment on above: Order Comment: Speci men Type: BLOOD SPECIMENOrdering Facility: [facility] Address: [address] [place] [address] Result Comment: Abbey mated Glomerular Filtration Rate [...] Performed By: #### 2 432-8, 1988-03, 2731-06, ####[facility] LABIA [id number] [place] [id number] [place] Glucose [Mass/Vol] 102 mg/dL High 74-99 [facility] Comment on above: Order Comment: Speci men Type: BLOOD SPECIMENOrdering Facility: [facility] Address: [address] [place], [place] [address] Result Comment: The [employer] (ADA) provides guidance for cutoff [...] Standards of Medical Care in Diabetes 2016, [place] [employer]. Diabetes Care. 2016.39(Suppl 1). Performed By: #### 2 8, 1988-03, 2731-06, ####[facility] LABCLIA [id number] [address] [address] [place] Potassium [Moles/Vol] 4.2 mmol/L Normal 3.7-5.1 [facility] Comment on above: Order Comment: Speci men Type: BLOOD SPECIMENOrdering Facility: [facility] Address: [address] [place], [place] [address] Performed By: #### 2 4323-06, 1988-03, 2731-06, ####[facility] LABCLIA [id number] [address] [address] [place] Protein [Mass/Vol] 6.9 g/dL Normal 6.3-8.0 [facility] Comment on above: Order Comment: Speci men Type: BLOOD SPECIMENOrdering Facility: [facility] Address: [address] [place], [place] [address] Performed By: #### 2 8, 1988-03, 2731-06, ####[facility] LABCLIA [id number] [place] [address] [place] Sodium [Moles/Vol] 139 mmol/L Normal 136-144 [facility] Comment on above: Order Comment: Speci men Type: BLOOD SPECIMENOrdering Facility: [facility] Address: [address] [place] [address] Performed By: #### 2 4323-8, 1988-03, 2731-06, 19983-4 ####[facility] LABCLIA [id number] [place] [address] [place] Urea nitrogen [Mass/Vol] 11 mg/dL Normal 7-21 [facility] Comment on above: Order Comment: Speci men Type: BLOOD SPECIMENOrdering Facility: [facility] Address: [address] [place] [address] Performed By: #### 2 4328, 1988-03, 2731-06, 97795-0 ####[facility] LABCLIA [id number] [place] [address] [place] Cyclic citrullinated peptide IgG Qnon 02-11-2023 CCP ANTIBODY IGG QUALITATIVE Negative Normal Negative [facility] Comment on above: Order Comment: Speci men Type: BLOOD SPECIMENOrdering Facility: [facility] Address: [address] [place] [address] Performed By: #### 3 3935-8, BETA2G, BETA2M, 5076-5, CARDIG ####[facility] LABCLIA [id number] [place] [address] [place] [id number] 02-11-2023 ECG01 Normal [facility] SHARRI Jo1 Ab Ser-aCncon 2022 Carmel-1 extractable nuclear Ab Qn (S) <0.2 Normal <1.0 [facility] Comment on above: Order Comment: Speci men Type: BLOOD SPECIMENOrdering Facility: [facility] Address: [address] [place] [address] Performed By: #### 5 1775-5, 18147-5, 08575-5, 18640-1, 45043-7, 25197-1, 49703-2, 44488-3, 82467-2, ANAIFR ####[facility] LABIA [id number] [place] [address] [place] SHARRI PERSONAL INSURANCE ADVISOR Ab Ser-aCncon 2022 Ribonucleoprotein extractable nuclear Ab Qn (S) <0.2 Normal <1.0 [facility] Comment on above: Order Comment: Speci men Type: BLOOD SPECIMENOrdering Facility: [facility] Address: [address] [place] [address] Performed By: #### 5 1775-5, 62376-1, 46149-4, 21819-5, 88877-5, 42381-2, 24646-6, 75598-7, 39086-3, ANAIFR ####[facility] LABIA [id number] [place] [address] [place] SHARRI SM IgG Ser-aCncon 2022 Willingham extractable nuclear IgG Qn (S) <0.2 Normal <1.0 [facility] Comment on above: Order Comment: Speci men Type: BLOOD SPECIMENOrdering Facility: [facility] Address: [address] [place] [address] Performed By: #### 5 1775-5, 93965-9, 63275-9, 83109-2, 12315-7, 09959-8, 74309-1, 38212-2, 41549-3, ANAIFR ####[facility] LABIA [id number] [place] [address] [place] SHARRI SS-A Ab Ser-aCncon 02-11 Sjogrens syndrome-A extractable nuclear Ab Qn (S) <0.2 Normal <1.0 [facility] Comment on above: Order Comment: Speci men Type: BLOOD SPECIMENOrdering Facility: [facility] Address: [address] [place] [address] Result Comment: Test Methodology: Multiplex flow immunoassay. Performed By: #### 5 1775-5, 67545-9, 74625-0, 35222-8, 78789-4, 67395-1, 95248-2, 19846-3, 70373-7, ANAIFR ####[facility] LABCLIA [id number] [address] [place] SHARRI SS-B Ab Ser-aCncon 02-11 Sjogrens syndrome-B extractable nuclear Ab Qn (S) <0.2 Normal <1.0 [facility] Comment on above: Order Comment: Speci men Type: BLOOD SPECIMENOrdering Facility: [facility] Address: [address] [place] [address] Result Comment: Anti -SSB (anti-La) antibody is used as an aid in diagnosis of a variety of systemic autoimmune diseases, especially for Sjogren's syndrome and systemic lupus erythematosus. Clinical correlation is required.Test Methodology: Multiplex flow immunoassay. Performed By: #### 5 1775-5, 87952-7, 37087-6, 46569-7, 65602-8, 96022-5, 74242-4, 75636-1, 39189-6, ANAIFR ####[facility] LABIA [id number] [address] [place] HISTORY PHYSICALon HISTORY PHYSICAL Normal [facility] Carmel-1 extractable nuclear Ab Qn (S)on 02-11-2023 CARMEL 1 ANTIBODY QUAL Negative Normal Negative [facility] Comment on above: Order Comment: Speci men Type: BLOOD SPECIMENOrdering Facility: [facility] Address: [address] [place] [place] [address] Result Comment: Anti -CARMEL-1 antibody is used as an aid in diagnosis of polymyositis and dermatomyositis especially with pulmonary involvement. A negative result cannot rule out polymyositis or dermatomyositis. Clinical correlation is required.Test Methodology: Multiplex flow immunoassay. Performed By: #### 5 1775-5, 79983-4, 16788-1, 65904-9, 30373-9, 27270-7, 45905-3, 31433-8, 81360-7, ANAIFR ####[facility] LABIA [id number] [place] [address] [place] LUPUS PANELon 02-11-2023 aPTT Coag (Bld) [Time] 33.7 s Normal 24.0-35.1 [facility] Comment on above: Order Comment: Speci men Type: BLOOD SPECIMENOrdering Facility: [facility] Address: [address] [place] [address] Performed By: #### L UPPL ####[facility] [id number] [address] [place] aPTT W excess hexagonal phase phospholipid Coag (PPP) [Time] 48.2 seconds Normal 34.0-51.8 [facility] Comment on above: Order Comment: Speci men Type: BLOOD SPECIMENOrdering Facility: [facility] Address: [address] [place] [address] Performed By: #### L UPPL ####[facility] [id number] [address] [place] Delta dRVVT Coag (PPP) [Time diff] 2.0 delta seconds Normal <7.1 [facility] Comment on above: Order Comment: Speci men Type: BLOOD SPECIMENOrdering Facility: [facility] Address: [address] Performed By: #### L UPPL ####[facility] [id number] [address] [place] dRVVT Coag (PPP) [Time] 36.0 s Normal 32.0-45.7 [facility] Comment on above: Order Comment: Speci men Type: BLOOD SPECIMENOrdering Facility: [facility] Address: [address] [place] [address] Performed By: #### L UPPL ####[facility] [id number] [place] [address] [place] dRVVT factor substitution immediately after 1:2 addition of normal plasma Coag (PPP) [Time] 36.6 seconds Normal 32.0-45.7 [facility] Comment on above: Order Comment: Speci men Type: BLOOD SPECIMENOrdering Facility: [facility] Address: [address] [place] [address] Performed By: #### L UPPL ####[facility] [id number] [place] [address] [place] dRVVT W excess hexagonal phase phospholipid actual/normal Coag (PPP) [Relative time] 46.2 seconds Normal 34.2-47.9 [facility] Comment on above: Order Comment: Speci men Type: BLOOD SPECIMENOrdering Facility: [facility] Address: [address] [place], [place] [address] Performed By: #### L UPPL ####[facility] [id number] [address] [place] dRVVT/dRVVT.excess phospholipid Coag (PPP) [Ratio] 1.04 Normal <1.32 [facility] Comment on above: Order Comment: Speci men Type: BLOOD SPECIMENOrdering Facility: [facility] Address: [address] [place], [place] [address] Performed By: #### L UPPL ####[facility] [id number] [place] [address] [place] Lupus anticoagulant neutralization platelet Coag Ql (PPP) Negative Normal Negative [facility] Comment on above: Order Comment: Speci men Type: BLOOD SPECIMENOrdering Facility: [facility] Address: [address] [place], [place] [address] Performed By: #### L UPPL ####[facility] [id number] [address] STATES OF [facility] Thrombin time Coag (PPP) [Time] <16.8 Normal <18.6 [facility] Comment on above: Order Comment: Speci men Type: BLOOD SPECIMENOrdering Facility: [facility] Address: [address] [place] [address] Performed By: #### L UPPL ####[facility] LABCLIA [id number] [address] PT panel Coag (PPP)on 2022 INR Coag (PPP) [Relative time] 1.0 {INR} Normal 0.9-1.3 [facility] Comment on above: Order Comment: Speci men Type: BLOOD SPECIMENOrdering Facility: [facility] Address: [address] [place] [address] Result Comment: An min K Antagonist (VKA) Therapeutic Range: INR 2 to 3 (Target INR of 2.5)Note: For patients treated with VKA drugs, such as warfarin, the [employer] 2012 Guideline recommends [...] 70: 252-289 Performed By: #### 3 4528-0, 92565-7 ####[facility] LABCLIA [id number] [place] [address] [place] PT Coag (PPP) [Time] 9.9 s Normal 9.7-13.0 [facility] Comment on above: Order Comment: Speci men Type: BLOOD SPECIMENOrdering Facility: [facility] Address: [address] [place] [address] Performed By: #### 3 4528-0, 55713-5 ####[facility] LABCLIA [id number] [place] [address] [place] PTH-Intact SerPl-mCncon - Parathyrin.intact [Mass/Vol] 45 pg/mL Normal 15-65 [facility] Comment on above: Order Comment: Speci men Type: BLOOD SPECIMENOrdering Facility: [facility] Address: [address] [place] [address] Performed By: #### 2 4328, 1988-03, 2731-06, ####[facility] LABCLIA [id number] [place] [address] [place] Rheumatoid fact SerPl-aCncon 02-11-2023 Rheumatoid factor Qn [IU]/mL Normal <16 [facility] Comment on above: Order Comment: Speci men Type: BLOOD SPECIMENOrdering Facility: [facility] Address: [address] [place] [address] Performed By: #### 2 4328, 1988-03, 2731-06, ####[facility] LABCLIA [id number] [place] [address] [place] Ribonucleoprotein extractabl e nuclear Ab Qn (S)on 02-11-2023 ANTI-PERSONAL INSURANCE ADVISOR QUAL Negative Normal Negative [facility] Comment on above: Order Comment: Speci men Type: BLOOD SPECIMENOrdering Facility: [facility] Address: [address] [place] [address] Performed By: #### 5 1775-5, 87564-1, 93930-2, 99265-4, 53368-2, 93664-9, 66432-9, 72897-3, 76003-8, ANAIFR ####[facility] LABCLIA [id number] [place] [address] [place] RIBOSOMAL PERSONAL INSURANCE ADVISOR QUAL Negative Normal Negative [facility] Comment on above: Order Comment: Speci men Type: BLOOD SPECIMENOrdering Facility: [facility] Address: [address] [place] [address] Result Comment: Anti -Ribosomal RNA (Ribosomal P) antibody is used as an aid in diagnosis of systemic autoimmune diseases especially systemic lupus erythematosus and mixed connective tissue disease. Cross-reactivity with Anti-willingham antibody is not uncommon. Clinical correlation is required.Test Methodology: Multiplex flow immunoassay. Performed By: #### 5 1775-5, 32743-8, 36333-0, 78832-1, 06115-8, 41291-0, 47983-6, 26498-9, 65699-4, ANAIFR ####[facility] [id number] [place] [address] [place] SCL-70 extractable nuclear I gG IA Qn (S)on 02-11-2023 SCLERODERMA AB QUAL Negative Normal Negative [facility] Comment on above: Order Comment: Speci men Type: BLOOD SPECIMENOrdering Facility: [facility] Address: [address] [place] [address] Performed By: #### 5 1775-5, 28624-9, 15673-2, 73529-0, 02964-4, 09825-9, 64520-9, 21045-9, 09271-2, ANAIFR ####[facility] [id number] [place] [address] [place] SCLERODERMA IGG AB <0.2 Normal <1.0 [facility] Comment on above: Order Comment: Bradyi adria Type: BLOOD SPECIMENOrdering Facility: [facility] Address: [address] [place] [address] Result Comment: Scl- 70/Scleroderma antibody test is used as an aid in diagnosis of systemic sclerosis especially the diffuse cutaneous form. A negative result cannot rule out systemic sclerosis. The final interpretation should consider clinical picture and other test results such as anti-centromere antibody. Test Methodology: Multiplex flow immunoassay. Performed By: #### 5 1775-5, 14518-1, 30756-7, 60728-3, 54561-4, 13850-0, 53942-2, 74962-1, 01858-4, ANAIFR ####[facility] LABIA [id number] [place] [address] [place] Sjogrens syndrome-A extracta ble nuclear Ab Qn (S)on 02-11-2023 SSA ANTIBODY QUAL Negative Normal Negative [facility] Comment on above: Order Comment: Speci men Type: BLOOD SPECIMENOrdering Facility: [facility] Address: [address] [place] [address] Performed By: #### 5 1775-5, 76601-6, 97580-9, 44417-9, 03823-3, 48383-0, 54075-6, 51727-8, 08447-2, ANAIFR ####[facility] [id number] [place] [address] [place] Sjogrens syndrome-B extracta ble nuclear Ab Qn (S)on 02-11-2023 SSB ANTIBODY QUAL Negative Normal Negative [facility] Comment on above: Order Comment: Speci men Type: BLOOD SPECIMENOrdering Facility: [facility] Address: [address] [place] [address] Performed By: #### 5 1775-5, 32704-4, 58312-8, 29359-3, 31337-6, 37831-1, 19719-5, 09187-9, 81729-0, ANAIFR ####[facility] LABIA [id number] [place] [address] [place]illingham extractable nuclear Ig G Qn (S)on 02-11-2023 SM ANTIBODY QUAL Negative Normal Negative [facility] Comment on above: Order Comment: Speci men Type: BLOOD SPECIMENOrdering Facility: [facility] Address: [address] [place] [address] Result Comment: Anti -Sm (Willingham) antibody is used as an aid in diagnosis of systemic lupus erythematosus and its presence is associated with renal disease. A negative result cannot rule out systemic lupus erythematosus. Clinical correlation is required.Test Methodology: Multiplex flow immunoassay. Performed By: #### 5 1775-5, 78442-0, 34201-3, 59871-1, 00301-1, 41430-3, 98693-4, 40146-8, 24274-0, ANAIFR ####[facility] LABCLIA [id number] [place] [address] [place] TYPE AND SCREEN,30 DAYon ABO B Normal [facility] Comment on above: Order Comment: Speci men Type: BLOOD SPECIMENOrdering Facility: [facility] Address: [address] [place] [address] Performed By: #### T SCR30 ####[facility] BLOOD BANKIA [id number] [address] HISTORICAL AB SCR STATUS Negative Normal [facility] Comment on above: Order Comment: Speci men Type: BLOOD SPECIMENOrdering Facility: [facility] Address: [address] [place] [address] Performed By: #### T SCR30 ####[facility] BLOOD BANKIA [id number] [address] [place] Rh Nom (Bld) Positive Normal [facility] Comment on above: Order Comment: Speci men Type: BLOOD SPECIMENOrdering Facility: [facility] Address: [address] [place] [address] Performed By: #### T SCR30 ####[facility] BLOOD BANKIA [id number] [address] [place] aPTT PPPon 02-11-2023 aPTT Coag (PPP) [Time] 28.1 s Normal 23.0-32.4 [facility] Comment on above: Order Comment: Speci men Type: BLOOD SPECIMENOrdering Facility: [facility] Address: [address] [address] Performed By: #### 3 4528-0, 44894-7 ####[facility] LABCLIA [id number] [place] [address] [place] cCP IgG SerPl-aCncon 023 Cyclic citrullinated peptide IgG Qn <15 Normal <20 [facility] Comment on above: Order Comment: Speci men Type: BLOOD SPECIMENOrdering Facility: [facility] Address: [address] [place] [address] Performed By: #### 3 3935-8, BETA2G, BETA2M, 5076-5, CARDIG ####[facility] LABIA [id number] [place] [address] [place] dsDNA Ab Ser IA-aCncon 02-11 DNA double strand Ab IA Qn (S) <12 Normal <30 [facility] Comment on above: Order Comment: Speci men Type: BLOOD SPECIMENOrdering Facility: [facility] Address: [address] [place] [address] Result Comment: Nega tive for ds DNA Antibodies.<30 IU/mL Nsyydjbb67-75 IU/mL Equivocal>74 IU/mL Positive Performed By: #### 5 1775-5, 92355-9, 99898-6, 10579-1, 97119-2, 04407-3, 84531-1, 20410-0, 36141-6, ANAIFR ####[facility] LABIA [id number] [place] [address] [place] CNPNon 02-01-2023 CNPN Normal [facility] CNOVon 01-27-2023 CNOV Normal [facility] HISTORY PHYSICALon HISTORY PHYSICAL Normal [facility] CNOVon 01-19-2023 CNOV Normal [facility] No Panel Informationon 01-19 [facility] XR SI JTS 2V AP PELV/FERGUSO Non 01-19-2023 XR SI JTS 2V AP PELV/GRANADOS Normal [facility] XR THORACIC 3V AP/LAT/SWIMME RSon 01-19-2023 XR THORACIC 3V AP/LAT/SWIMMERS Normal [facility] DXA-AXIAL SKELETONon 023 [facility] CBC panel Auto (Bld)on 12-10 Erythrocyte distribution width (RBC) [Ratio] 13.0 % 11.5 - 15.0 % [facility] Hematocrit (Bld) [Volume fraction] 44.9 % 36.0 - 46.0 % [facility] Hemoglobin (Bld) [Mass/Vol] 14.8 g/dL 11.5 - 15.5 g/dL [facility] MCH (RBC) [Entitic mass] 31.2 pg 26.0 - 34.0 pg [facility] MCHC (RBC) [Mass/Vol] 33.0 g/dL 30.5 - 36.0 g/dL [facility] MCV (RBC) [Entitic vol] 94.7 fL 80.0 - 100.0 fL [facility] Nucleated RBC (Bld) [#/Vol] <0.01 k/uL [facility] Platelet mean volume (Bld) [Entitic vol] 9.6 fL 9.0 - 12.7 fL [facility] Platelets (Bld) [#/Vol] 353 10*3/uL 150 - 400 k/uL [facility] RBC (Bld) [#/Vol] 4.74 10*6/uL 3.90 - 5.2 0 m/uL [facility] WBC (Bld) [#/Vol] 9.31 10*3/uL 3.70 - 11.00 k/uL [facility] COLONOSCOPY DIAGNOSTICon [facility] No Panel Informationon 08-13 [facility] Laboratory - Drug toxicology on 07-07-2022 Adalimumab [Mass/Vol] 4.45 ug/mL >=0.65 ug/mL [facility] No Panel Informationon 07-07 ADALIMUMAB NEUTRALIZING ANTIBODY Not detected Not Detected [facility] Pathology study See Note [facility] Laboratory - Microbiology an d Antimicrobial susceptibilityon 07-06-2022 M. tuberculosis tuberculin stim IFN-g Ql (Bld) Negative [facility] No Panel Informationon 07-06 Mitogen minus Nil >=0.50 IU/mL [facility] TB Gamma Interpretation Infection with M. tuberculosis complex is unlikely. If latent tuberculosis infection is highly suspected, a negative result does not rule out the infection. Specimens from immunocompromised patients and those <5 years of age may show false negative results. In case of a contact investigation, please repeat 8-12 weeks after a known exposure. [facility] TB Nil 0.01 IU/mL <=8.00 IU/mL [facility] TB1 Ag minus Nil 0.00 IU/mL <0.35 IU/mL [facility] TB2 Ag minus Nil 0.00 IU/mL <0.35 IU/mL [facility] CBC panel Auto (Bld)on 07-05 Erythrocyte distribution width (RBC) [Ratio] 13.1 % 11.5 - 15.0 % [facility] Hematocrit (Bld) [Volume fraction] 45.2 % 36.0 - 46.0 % [facility] Hemoglobin (Bld) [Mass/Vol] 14.4 g/dL 11.5 - 15.5 g/dL [facility] MCH (RBC) [Entitic mass] 31.2 pg 26.0 - 34.0 pg [facility] MCHC (RBC) [Mass/Vol] 31.9 g/dL 30.5 - 36.0 g/dL [facility] MCV (RBC) [Entitic vol] 97.8 fL 80.0 - 100.0 fL [facility] Nucleated RBC (Bld) [#/Vol] <0.01 k/uL [facility] Platelet mean volume (Bld) [Entitic vol] 10.1 fL 9.0 - 12.7 fL [facility] Platelets (Bld) [#/Vol] 245 10*3/uL 150 - 400 k/uL [facility] RBC (Bld) [#/Vol] 4.62 10*6/uL 3.90 - 5.2 0 m/uL [facility] WBC (Bld) [#/Vol] 6.35 10*3/uL 3.70 - 11.00 k/uL [facility] Comprehensive metabolic 2000 panelon 07-05-2022 Albumin [Mass/Vol] 4.7 g/dL 3.9 - 4.9 g/dL [facility] ALP [Catalytic activity/Vol] 61 U/L 34 - 123 U/L [facility] ALT [Catalytic activity/Vol] 8 U/L 7 - 38 U/L [facility] Anion gap [Moles/Vol] 9 mmol/L 9 - 18 mmol/L [facility] AST [Catalytic activity/Vol] 18 U/L 13 - 35 U/L [facility] Bilirubin [Mass/Vol] 0.5 mg/dL 0.2 - 1 .3 mg/dL [facility] Calcium [Mass/Vol] 9.5 mg/dL 8.5 - 10. 2 mg/dL [facility] Chloride [Moles/Vol] 105 mmol/L 97 - 10 5 mmol/L [facility] CO2 [Moles/Vol] 26 mmol/L 22 - 30 mmol/L [facility] Creatinine [Mass/Vol] 0.73 mg/dL 0.58 - 0.96 mg/dL [facility] Estimated Glomerular Filtration Rate 107 mL/min/1.73m >=60 mL/min/1.73 m [facility] Glucose [Mass/Vol] 96 mg/dL 74 - 99 mg/dL [facility] Potassium [Moles/Vol] 4.6 mmol/L 3.7 - 5.1 mmol/L [facility] Protein [Mass/Vol] 7.2 g/dL 6.3 - 8.0 g/dL [facility] Sodium [Moles/Vol] 140 mmol/L 136 - 144 mmol/L [facility] Urea nitrogen [Mass/Vol] 8 mg/dL 7 - 21 mg/dL [facility] Iron and Iron binding capaci ty panelon 07-05-2022 Iron [Mass/Vol] 103 ug/dL 41 - 186 ug/dL [facility] Iron binding capacity [Mass/Vol] 331 ug/dL 232 - 386 ug/dL [facility] Iron/TIBC [Molar ratio] 31.1 % 15.0 - 57.0 % [facility] Laboratory - Chemistry and C hemistry - challengeon 07-05-2022 25-hydroxyvitamin D3 [Mass/Vol] 35.8 ng/mL 31.0 - 80.0 ng/mL [facility] Cobalamin (Vitamin B12) [Mass/Vol] 284 pg/mL 232 - 1,245 pg/mL [facility] Ferritin [Mass/Vol] 68.0 ng/mL 14.7 - 205.1 ng/mL [facility] No Panel Informationon 07-05 Hepatitis A IgG Negative Negative [facility] Auth for Release of Medical Recordson 07-02-2022 Auth for Release of Medical Records [id number]:[id number] Normal [facility] Vital Signs Date Time Vital Sign Value Performing Clinician Kadie platt 10-18-2023 14:13-0500 Body temperature 98.1 [degF] Pedro Luis Bailey MECHANICAL DOOR REPAIRER.SAFETY ASSOCIATE Work Phone: [facility] 10-18-2023 14:13-0500 Body weight 65.32 kg Pedro Luis Bailey MECHANICAL DOOR REPAIRER.SAFETY ASSOCIATE Work Phone: [facility] 10-18-2023 14:13-0500 Diastolic blood pressure 72 mm[Hg] Pedro Luis Bailey MECHANICAL DOOR REPAIRER.SAFETY ASSOCIATE Work Phone: [facility] 10-18-2023 14:13-0500 Heart rate 79 /min Pedro Luis Bailey MECHANICAL DOOR REPAIRER.SAFETY ASSOCIATE Work Phone: [facility] 10-18-2023 14:13-0500 Respiratory rate 20 /min Pedro Luis Bailey MECHANICAL DOOR REPAIRER.SAFETY ASSOCIATE Work Phone: [facility] 10-18-2023 14:13-0500 SaO2% (BldA) [Mass fraction] 100 % Pedro Luis Bailey MECHANICAL DOOR REPAIRER.SAFETY ASSOCIATE Work Phone: [facility] 10-18-2023 14:13-0500 Systolic blood pressure 111 mm[Hg] Pedro Luis Bailey MECHANICAL DOOR REPAIRER.SAFETY ASSOCIATE Work Phone: [facility] 10-18-2023 12:56-0500 Body height 159.3 cm Gautam Hill MD Work Phone: [facility] 10-18-2023 12:56-0500 Body temperature 98.1 [degF] Gautam Hill MD Work Phone: [facility] 10-18-2023 12:56-0500 Body weight 65.5 kg Gautam Hill MD Work Phone: [facility] 10-18-2023 12:56-0500 Diastolic blood pressure 72 mm[Hg] Gautam Hill MD Work Phone: [facility] 10-18-2023 12:56-0500 Heart rate 79 /min Gautam Hill MD Work Phone: [facility] 10-18-2023 12:56-0500 Respiratory rate 20 /min Gautam Hill MD Work Phone: [facility] 10-18-2023 12:56-0500 SaO2% (BldA) [Mass fraction] 100 % Gautam Hill MD Work Phone: [facility] 10-18-2023 12:56-0500 Systolic blood pressure 111 mm[Hg] Gautam Hill MD Work Phone: [facility] 09-23-2023 14:42-0400 Body weight 66.22 kg Luz Noriegaick MECHANICAL DOOR REPAIRER.SAFETY ASSOCIATE Work Phone: [facility] 09-23-2023 14:42-0400 Diastolic blood pressure 70 mm[Hg] Luz Noriegaick MECHANICAL DOOR REPAIRER.SAFETY ASSOCIATE Work Phone: [facility] 09-23-2023 14:42-0400 Heart rate 72 /min Luz Noriegaick MECHANICAL DOOR REPAIRER.SAFETY ASSOCIATE Work Phone: [facility] 09-23-2023 14:42-0400 Systolic blood pressure 126 mm[Hg] Luz Noriegaick MECHANICAL DOOR REPAIRER.SAFETY ASSOCIATE Work Phone: [facility] 09-14-2023 14:30-0400 Body weight 65.77 kg Parish Page MD Work Phone: [facility] 09-14-2023 14:30-0400 Diastolic blood pressure 70 mm[Hg] Parish Page MD Work Phone: [facility] 09-14-2023 14:30-0400 Heart rate 84 /min Parish Page MD Work Phone: [facility] 09-14-2023 14:30-0400 Systolic blood pressure 106 mm[Hg] Parish Page MD Work Phone: [facility] 09-05-2023 14:34-0400 Body height 160 cm Adrien Landers MD Work Phone: [facility] 09-05-2023 14:34-0400 Body weight 65.77 kg Adrien Landers MD Work Phone: [facility] 09-05-2023 14:34-0400 Diastolic blood pressure 68 mm[Hg] Adrien Landers MD Work Phone: [facility] 09-05-2023 14:34-0400 Heart rate 91 /min Adrien Landers MD Work Phone: [facility] 09-05-2023 14:34-0400 Systolic blood pressure 113 mm[Hg] Adrien Landers MD Work Phone: [facility] 05-20-2023 08:15-0400 Body height 160 cm Adrien Landers MD Work Phone: [facility] 05-20-2023 08:15-0400 Body weight 63.64 kg Adrien Landers MD Work Phone: [facility] 05-20-2023 08:15-0400 Diastolic blood pressure 71 mm[Hg] Adrien Landers MD Work Phone: [facility] 05-20-2023 08:15-0400 Heart rate 76 /min Adrien Landers MD Work Phone: [facility] 05-20-2023 08:15-0400 Systolic blood pressure 113 mm[Hg] Adrien Landers MD Work Phone: [facility] 05-19-2023 08:41-0400 Body weight 61.69 kg Luz Sims 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 Work Phone: [facility] 05-19-2023 08:41-0400 Diastolic blood pressure 64 mm[Hg] Luz Sims 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 Work Phone: [facility] 05-19-2023 08:41-0400 Heart rate 80 /min Luz Levi MECHANICAL DOOR REPAIRER.SAFETY ASSOCIATE Work Phone: [facility] 05-19-2023 08:41-0400 Systolic blood pressure 106 mm[Hg] Luz Sims 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 Work Phone: [facility] 02-11-2023 13:40-0400 Body height 160 cm Shelby Sankovic PA-C Work Phone: [facility] 02-11-2023 13:40-0400 Body temperature 98.6 [degF] Shelby Sankovic PA-C Work Phone: [facility] 02-11-2023 13:40-0400 Body weight 64.41 kg Shelby Sankovic PA-C Work Phone: [facility] 02-11-2023 13:40-0400 Diastolic blood pressure 70 mm[Hg] Shelby Sankovic PA-C Work Phone: [facility] 02-11-2023 13:40-0400 Heart rate 89 /min Shelby Sankovic PA-C Work Phone: [facility] 02-11-2023 13:40-0400 Respiratory rate 16 /min Shelby Sankovic PA-C Work Phone: [facility] 02-11-2023 13:40-0400 SaO2% (BldA) [Mass fraction] 98 % Shelby Sankovic PA-C Work Phone: [facility] 02-11-2023 13:40-0400 Systolic blood pressure 111 mm[Hg] Shelby Sankovic PA-C Work Phone: [facility] 01-27-2023 13:32-0500 Body height 160 cm Hilary Shaffer MD Work Phone: [facility] 01-27-2023 13:32-0500 Body temperature 97.2 [degF] Hilary Shaffer MD Work Phone: [facility] 01-27-2023 13:32-0500 Body weight 65.32 kg Hilary Shaffer MD Work Phone: [facility] 01-27-2023 13:32-0500 Diastolic blood pressure 71 mm[Hg] Hilary Shaffer MD Work Phone: [facility] 01-27-2023 13:32-0500 Heart rate 87 /min Hilary Shaffer MD Work Phone: [facility] 01-27-2023 13:32-0500 Respiratory rate 17 /min Hilary Shaffer MD Work Phone: [facility] 01-27-2023 13:32-0500 SaO2% (BldA) [Mass fraction] 98 % Hilary Shaffer MD Work Phone: [facility] 01-27-2023 13:32-0500 Systolic blood pressure 111 mm[Hg] Hilary Shaffer MD Work Phone: [facility] 01-19-2023 09:06-0500 Body weight 64.41 kg Franchesca Zuniga MD Work Phone: [facility] 01-19-2023 09:06-0500 Diastolic blood pressure 68 mm[Hg] Franchesca Zuniga MD Work Phone: [facility] 01-19-2023 09:06-0500 Heart rate 66 /min Franchesca uZniga MD Work Phone: [facility] 01-19-2023 09:06-0500 Systolic blood pressure 110 mm[Hg] Franchesca Zuniga MD Work Phone: [facility] 12-10-2022 10:15-0500 Body height 160 cm Roro Ant MECHANICAL DOOR REPAIRER.SAFETY ASSOCIATE Work Phone: [facility] 12-10-2022 10:15-0500 Body temperature 98.01 [degF] Roro Ant MECHANICAL DOOR REPAIRER.SAFETY ASSOCIATE Work Phone: [facility] 12-10-2022 10:15-0500 Body weight 65.77 kg Roro Ant MECHANICAL DOOR REPAIRER.SAFETY ASSOCIATE Work Phone: [facility] 12-10-2022 10:15-0500 Diastolic blood pressure 68 mm[Hg] Roro Ant MECHANICAL DOOR REPAIRER.SAFETY ASSOCIATE Work Phone: [facility] 12-10-2022 10:15-0500 Heart rate 98 /min Roro Ant MECHANICAL DOOR REPAIRER.SAFETY ASSOCIATE Work Phone: [facility] 12-10-2022 10:15-0500 SaO2% (BldA) [Mass fraction] 98 % Roro Ant MECHANICAL DOOR REPAIRER.SAFETY ASSOCIATE Work Phone: [facility] 12-10-2022 10:15-0500 Systolic blood pressure 137 mm[Hg] Roro Ant MECHANICAL DOOR REPAIRER.SAFETY ASSOCIATE Work Phone: [facility] 12-03-2022 10:00-0500 Diastolic blood pressure 67 mm[Hg] Sheldon Abreu MD Work Phone: [facility] 12-03-2022 10:00-0500 Heart rate 70 /min Sheldon Abreu MD Work Phone: [facility] 12-03-2022 10:00-0500 SaO2% (BldA) [Mass fraction] 99 % Sheldon Abreu MD Work Phone: [facility] 12-03-2022 10:00-0500 Systolic blood pressure 101 mm[Hg] Sheldon Abreu MD Work Phone: [facility] 12-03-2022 09:49-0500 Respiratory rate 16 /min Sheldon Abreu MD Work Phone: [facility] 12-03-2022 08:14-0500 Body height 160 cm Sheldon Abreu MD Work Phone: [facility] 12-03-2022 08:14-0500 Body temperature 97.2 [degF] Sheldon Abreu MD Work Phone: [facility] 12-03-2022 08:14-0500 Body weight 63.5 kg Sheldon Abreu MD Work Phone: [facility] 08-13-2022 18:45-0400 Diastolic blood pressure 68 mm[Hg] Mri (I-Stat/1.5t/3t) Work Phone: [facility] 08-13-2022 18:45-0400 Heart rate 80 /min Mri (I-Stat/1.5t/3t) Work Phone: [facility] 08-13-2022 18:45-0400 Respiratory rate 20 /min Mri (I-Stat/1.5t/3t) Work Phone: [facility] 08-13-2022 18:45-0400 SaO2% (BldA) [Mass fraction] 99 % Mri (I-Stat/1.5t/3t) Work Phone: [facility] 08-13-2022 18:45-0400 Systolic blood pressure 117 mm[Hg] Mri (I-Stat/1.5t/3t) Work Phone: [facility] 07-05-2022 07:48-0400 Body height 160 cm Cuco Gonzalez MD Work Phone: [facility] 07-05-2022 07:48-0400 Body weight 66.32 kg Cuco Gonzalez MD Work Phone: [facility] 07-05-2022 07:48-0400 Diastolic blood pressure 68 mm[Hg] Cuco Gonzalez MD Work Phone: [facility] 07-05-2022 07:48-0400 Heart rate 80 /min Cuco Gonzalez MD Work Phone: [facility] 07-05-2022 07:48-0400 SaO2% (BldA) [Mass fraction] 99 % Cuco Gonzalez MD Work Phone: [facility] 07-05-2022 07:48-0400 Systolic blood pressure 112 mm[Hg] Cuco Gonzalez MD Work Phone: [facility] Encounters Encounter Date Encounter Type Care Provider Facility Start: 12-23-2023 End: 12-23-2023 ambulatory BRENDA LANDON Facility:[facility] Start: 12-22-2023 End: 12-23-2023 ambulatory BRENDA M JENAEY Facility:[facility] Start: 12-16-2023 End: 12-16-2023 ambulatory BRENDA M HOY Facility:[facility] Start: 12-09-2023 End: 12-10-2023 ambulatory BRENDA M HOY Facility:[facility] Start: 12-09-2023 Encounter for other preprocedural examination ADRIEN POLANCO LANDERS [facility] Start: 12-09-2023 End: 12-10-2023 ambulatory BRENDABEV LANDON Facility:[facility] Start: 11-23-2023 End: 11-23-2023 ambulatory BRENDA M DIPESH Facility:[facility] Start: 11-14-2023 Refill Pedro Luis Ruelas.SAFETY ASSOCIATE Work Phone: Pulmonary Medicine Comment on above: Med Change Request Start: 10-18-2023 End: 10-18-2023 Office outpatient new 30 minutes Pedro Luis Bailey 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 Work Phone: Pulmonary Medicine Comment on above: Cigarette nicotine d ependence without complication (Primary Dx) Start: 10-18-2023 End: 10-18-2023 ambulatory Gautam Hill MD Work Phone: Hematology/Oncology Comment on above: Antiphospholipid syn drome (HCC); Hypercoagulable state (HCC) Start: 10-18-2023 End: 10-18-2023 Patient encounter procedure Gautam Hill MD Work Phone: [facility] Start: 09-29-2023 End: 09-29-2023 ambulatory BRENDA LANDON Facility:[facility] Start: 09-23-2023 End: 09-23-2023 ambulatory BRENDA M Ammon Facility:[facility] Start: 09-23-2023 End: 09-23-2023 Patient encounter procedure Luz Sims 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 Work Phone: Rheumatology Comment on above: 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); Raynaud's phenomenon without gangrene; HLA B27 (HLA B27 positive); Crohn's disease of both small and large intestine with other complication (HCC) Start: 09-22-2023 End: 09-22-2023 ambulatory BRENDABEV LANDON Facility:[facility] Start: 09-22-2023 End: 09-22-2023 ambulatory Hilary Shaffer MD Work Phone: Colorectal Surgery Comment on above: Crohn's disease of s mall and large intestines with complication (HCC) (Primary Dx); Antiphospholipid syndrome (HCC) Start: 09-22-2023 End: 09-22-2023 Telemedicine consultation with patient Hilary Shaffer MD Work Phone: [facility] Start: 09-22-2023 End: 09-22-2023 ambulatory EUNICE ARMSTRONG Facility:[facility] Start: 09-20-2023 Telephone encounter Shashank Ruelas Gastroenterology Comment on above: Education Of Patient /family (PREP QUESTION, PREP NEEDED) Patient Update; Estefany ent Question Start: 09-19-2023 Refill Parish camara MD Work Phone: [facility] [place] Comment on above: Med Change Request Start: 09-16-2023 Telephone encounter Joanie del rio [facility] Other Phone: [facility] Comment on above: Anticoagulation Tele phone Fu (Patient Update) Start: 09-15-2023 ambulatory Hilary ruelas MD Work Phone: Colorectal Surgery Comment on above: [facility] is Start: 09-14-2023 End: 09-14-2023 Orders Only Chelsea Carvalho 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 Work Phone: Gynecology Comment on above: Pre-op testing (Prim oswald Dx) Antiphospholipid syn drome (HCC) (Primary Dx); Hypercoagulable state (HCC) Start: 09-14-2023 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 Francisca Carvalho 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 Work Phone: [facility] Work Phone: Start: 09-05-2023 End: 09-05-2023 ambulatory BRENDA EMANUELAmmon Facility:[facility] Start: 09-05-2023 End: 09-05-2023 Patient encounter procedure Adrien Landers MD Work Phone: Obstetrics/Gynecology Comment on above: Adenomyosis; Dysmenorrhea; Abnormal uterine bleeding Start: 07-20-2023 ambulatory Adrien Landers MD Work Phone: Gynecology Comment on above: MRI of Pelvis Start: 07-12-2023 End: 07-13-2023 ambulatory [facility] Facility:[facility] Start: 06-22-2023 End: 06-22-2023 [facility] Facility:[facility] Start: 06-16-2023 Telephone encounter Ankita Cleveland RN Gastroenterology Comment on above: Insurance Authorizat ion (Humira/) Start: 06-08-2023 End: 06-08-2023 ambulatory [facility] Facility:[facility] Start: 06-06-2023 Orders Only Franchesca alamo MD Work Phone: Rheumatology Comment on above: Abnormal coagulation profile (Primary Dx) Start: 05-20-2023 End: 05-21-2023 ambulatory FRANCHESCA ZUNIGA Facility:[facility] Start: 05-20-2023 End: 05-20-2023 Patient encounter procedure Adrien Landers MD Work Phone: Gynecology Comment on above: Endometriosis; Pelvic pain in female Start: 05-19-2023 End: 05-19-2023 ambulatory FRANCHESCA ZUNIGA Facility:[facility] Start: 05-19-2023 End: 05-19-2023 Patient encounter procedure Luz Sims 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 Work Phone: Rheumatology Comment on above: 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 Start: 05-16-2023 E-mail encounter aishwarya vargas caregiver [facility] Pharmacist Work Phone: [facility] Start: 05-13-2023 ambulatory Eren Willard [facility] Start: 05-13-2023 Patient encounter procedure Erne Willard [facility] Comment on above: SPP Inflammatory Con ditions - Treatment Referral (Humira); Insurance Authorization (PA submission pending) Start: 05-11-2023 Telephone encounter Ankita Cleveland RN Gastroenterology Comment on above: Orders (Humira Induc tion & Maintenance) Start: 05-10-2023 End: 05-10-2023 ambulatory BRENDA Vargas Ammon Facility:[facility] Start: 04-11-2023 E-mail encounter aishwarya vargas caregiver [facility] Provider [facility] Start: 04-11-2023 Patient encounter procedure [facility] Provider [facility] Comment on above: MIGS consult Start: 03-30-2023 E-mail encounter aishwarya vargas caregiver Pedro LIND-Josseline Work Phone: [facility] Start: 03-30-2023 Follow-up encounter Pedro mayfield PA-C Work Phone: Gastroenterology Comment on above: follow up on todays visit Start: 03-29-2023 End: 03-29-2023 ambulatory BRENDA M [facility] Facility:[facility] Start: 03-29-2023 End: 03-29-2023 ambulatory Pedro Israel PA-Josseline Work Phone: Gastroenterology Comment on above: Crohn's disease of s mall and large intestines with complication (HCC) (Primary Dx) Start: 03-29-2023 End: 03-29-2023 Telemedicine consultation with patient Pedro Ribshaynew PA-C Work Phone: [facility] Start: 03-24-2023 End: 03-24-2023 ambulatory Hilary Shaffer MD Work Phone: Colorectal Surgery Comment on above: Crohn's disease of s mall and large intestines with complication (HCC) (Primary Dx) Start: 03-24-2023 End: 03-24-2023 Telemedicine consultation with patient Hilary Shaffer MD Work Phone: [facility] Start: 03-07-2023 Emergency department patient visit BRENDA LANDON Facility:[facility] Start: 03-07-2023 Telephone encounter Cara Ruelas Colorectal Surgery Comment on above: Credit Risk Manager - O ther; Patient Question Start: 03-04-2023 End: 03-05-[address] BRENDA LANDON . Facility: Start: 03-02-2023 Telephone encounter Hilary snyder MD Work Phone: Colorectal Surgery Comment on above: Results Start: 03-01-2023 Telephone encounter Cara Tovar R Radha Colorectal Surgery Comment on above: Returning Patient's Call; Credit Risk Manager - Other; Patient Question Start: 02-28-2023 ambulatory [...] Start: 02-17-2023 End: 02-17-2023 ambulatory BRENDA LANDON Facility:[facility] Start: 02-14-2023 End: 02-17-2023 Evaluation and management of inpatient BRENDA LANDON Facility:[facility] Start: 02-14-2023 ambulatory Rroo HAND RN.SAFETY ASSOCIATE Work Phone: Gastroenterology Comment on above: Vitamin D Start: 02-14-2023 E-mail encounter fro m caregiver Roro Cain 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 Work Phone: [facility] Start: 02-11-2023 End: 02-12-2023 ambulatory BRENDA LANDON Facility:[facility] Start: 02-11-2023 Encounter for other preprocedural examination SHELBY GARCIA [facility] Start: 02-11-2023 End: 02-11-2023 Patient encounter procedure Shelby Garcia PA-C Work Phone: Colorectal Surgery Comment on above: Preoperative examina tion (Primary Dx) Start: 02-11-2023 End: 02-11-2023 Preprocedural examination done Shelby Garcia PA-C Work Phone: Colorectal Surgery Start: 02-11-2023 End: 02-12-2023 ambulatory Nurse Pt Ed Cors Work Phone: Colorectal Surgery Comment on above: Patient Education Start: 02-06-2023 Admission to [facility] Hilary Shaffer MD Work Phone: Colorectal Surgery Comment on above: Surgery Date Start: 02-06-2023 ambulatory Hilary ruelas MD Work Phone: [facility] Start: 02-01-2023 Telephone encounter Cara Ruelas Colorectal Surgery Comment on above: Credit Risk Manager - O ther; Patient Update Start: 01-28-2023 ambulatory Hilary ruelas MD Work Phone: Colorectal Surgery Start: 01-27-2023 End: 01-28-2023 ambulatory RORO ANT Facility:[facility] Start: 01-27-2023 End: 01-27-2023 Patient encounter procedure Hilary Shaffer MD Work Phone: Colorectal Surgery Comment on above: Crohn's disease of s mall and large intestines with complication (HCC) Start: 01-24-2023 Orders Only Venice Bonilla RP Work Phone: Gastroenterology Start: 01-20-2023 Telephone encounter Venice chao [facility] Work Phone: Gastroenterology Comment on above: Medication Follow-up Start: 01-19-2023 End: 01-19-2023 ambulatory FRANCHESCA ZUNIGA Facility:[facility] Start: 01-19-2023 End: 01-19-2023 Patient encounter [...] disease prevention Start: 12-31-2022 End: 01-01-2023 ambulatory [facility] Facility:[facility] Start: 12-31-2022 End: 12-31-2022 ambulatory Venice Bonilla [facility] Work Phone: Gastroenterology Comment on above: Crohn's disease of s mall and large intestines with complication (HCC) (Primary Dx) Start: 12-31-2022 End: 12-31-2022 Telemedicine consultation with patient [facility] Work Phone: [facility] MAIN Start: 12-24-2022 End: 12-24-2022 Subsequent hospital visit by physician Bone Density Main A21 2 Radiology Comment on above: FPC current us e of systemic steroids [Z79.52] Start: 12-13-2022 Orders Only Roro HAND RN.SAFETY ASSOCIATE Work Phone: Gastroenterology Comment on above: Vitamin D deficiency (Primary Dx) Start: 12-10-2022 End: 12-10-2022 Patient encounter procedure Roro Cain 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 Work Phone: Gastroenterology Comment on above: Crohn's disease of s mall and large intestines with complication (HCC) (Primary Dx); 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 Start: 12-03-2022 End: 12-03-2022 Subsequent hospital visit by physician Sheldon Abreu MD Work Phone: Gastroenterology Comment on above: Crohn's disease of b oth small and large intestine without complication (HCC) [K50.80] Start: 11-25-2022 Telephone encounter Ana Paula ruelas supervisor framing mill Comment on above: Appointment Start: 10-27-2022 Telephone [...] End: 08-13-2022 Subsequent hospital visit by physician [facility] Radio Main Q Work Phone: MRI Q Comment on above: Crohn's disease of b oth small and large intestine without complication (HCC) [K50.80] Start: 08-13-2022 ambulatory Kelley Menchaca RN MRI Q Comment on above: Patient Education Start: 08-13-2022 Chart abstracting [facility] Start: 07-05-2022 End: 07-05-2022 Patient encounter procedure Cuco Gonzalez MD Work Phone: Gastroenterology Comment on above: Crohn's disease of b oth small and large intestine without complication (HCC) (Primary Dx); Crohn's disease of small and large intestines with complication (HCC); Bloating Start: 07-01-2022 Telephone encounter Soledad Bhatia RNsupervisor framing mill Comment on above: Request Outside [facility] Start: 10-25-2018 End: 10-25-2018 Patient encounter procedure [facility] Division of Rheumatology Comment on above: Appointment Procedures Date Procedure Procedure Detail Performing Clinician Start: 12-09-2023 Antibody screen BRENDA LANDON Comment on above: Order Comment: Speci men Type: BLOOD SPECIMENOrdering Facility: [facility] Address: [address] [place] [address] Performed By: #### T [id number] ####CC MAIN BLOOD BANKCLIA [id number] [address] Start: 09-22-2023 Colonoscopy BRENDA Verde Start: 02-11-2023 Antibody screen BRENDA LANDON Comment on above: Order Comment: Speci men Type: BLOOD SPECIMENOrdering Facility: [facility] Address: [address] [place] [address] Performed By: #### T SCR30 ####CC MAIN BLOOD BANKCLIA [id number] [address] Start: 12-24-2022 Dxa bone density pablo [...] (1 of 3 - Risk 3-dose series) [facility] Start: 2043 Hepatitis B Vaccine (1 of 3 - Risk 3-dose series) Hepatitis B Vaccine (1 of 3 - Risk 3-dose series) [facility] Start: 10-10-2023 End: 01-09-2024 Centromere Ab [Presence] in Serum by Immunofluorescence ANTI-CENTROMERE AB Lab Routine Raynaud's phenomenon without gangrene Expected: 10/10/2023, Expires: 01/09/2024 [facility] Work Phone: Comment on above: Expected: 10/10/2023, Expires: 4 Start: 09-14-2023 End: 09-14-2024 CBC W Auto Differential panel - Blood CBC + DIFF Lab Routine Pre-op testing Expected: 09/14/2023, Expires: 09/14/2024 [facility] Work Phone: Comment on above: Expected: 09/14/2023, Expires: 4 Start: 09-14-2023 End: 12-14-2023 PT panel - Platelet poor plasma by Coagulation assay PROTHROMBIN TIME/PT Lab Routine Antiphospholipid syndrome (HCC) Expected: 09/14/2023, Expires: 12/14/2023 [facility] Work Phone: Comment on above: Expected: 09/14/2023, Expires: 4 Start: 07-29-2023 Influenza vaccination [facility] Start: 05-14-2023 End: 07-14-[address]US ANTICO[address] Lab Routine Abnormal blood coagulation profile Expected: 05/14/2023, Expires: 07/14/2023 [facility] Work Phone: Comment on above: Expected: 05/14/2023, Expires: 3 Start: 2023 Mammography [facility] Start: 2023 Screening for malignant neoplasm of breast Mammogram Screening [facility] Start: 02-11-2023 End: 03-14-2023 CBC panel - Blood by Automated count CBC Lab Routine Crohn's disease of small and large intestines with complication (HCC) Expected: 02/11/2023 (Approximate), Expires: 03/14/2023 [facility] Work Phone: Comment on above: Expected: 02/11/2023 (Approximate), Expi res: 03/14/2023 Start: 02-11-2023 End: 03-14-2023 Comprehensive metabolic 2000 panel - Serum or Plasma COMP METABOLIC PANEL Lab Routine Crohn's disease of small and large intestines with complication (HCC) Expected: 02/11/2023, Expires: 03/14/2023 [facility] Work Phone: Comment on above: Expected: 02/11/2023, Expires: Start: 02-11-2023 End: 03-14-2023 CONFIRM BLOOD TYPE CONFIRM BLOOD TYPE Blood Bank Routine Crohn's disease of small and large intestines with complication (HCC) Expected: 02/11/2023, Expires: 03/14/2023 [facility] Work Phone: Comment on above: Expected: 02/11/2023, Expires: 3 Start: 02-11-2023 End: 03-14-2023 TYPE AND SCREEN,30 DAY TYPE AND SCREEN,30 DAY Blood Bank Routine Crohn's disease of small and large intestines with complication (HCC) Expected: 02/11/2023, Expires: 03/14/2023 [facility] Work Phone: Comment on above: Expected: 02/11/2023, Expires: 3 Start: 02-09-2023 End: 04-11-2023 25-hydroxyvitamin D3 [Mass/volume] in Serum or Plasma VITAMIN D 25 HYDROXY Lab Routine SpondyloArthritis associated with inflammatory bowel disease Crohn's disease of both small and large intestine with other complication (HCC) Vitamin D deficiency Expected: 02/09/2023, Expires: 04/11/2023 [facility] Work Phone: Comment on above: Expected: 02/09/2023, Expires: 3 Start: 02-09-2023 End: 04-11-2023 LYLA BY IFA WITH REFLEX LYLA BY IFA WITH REFLEX Lab Routine SpondyloArthritis associated with inflammatory bowel disease Crohn's disease of both small and large intestine with other complication (HCC) Expected: 02/09/2023, Expires: 04/11/2023 [facility] Work Phone: Comment on above: Expected: 02/09/2023, Expires: 3 Start: 02-09-2023 End: 04-11-2023 C reactive protein [Mass/volume] in Serum or Plasma C-REACTIVE PROTEIN (CRP) Lab Routine SpondyloArthritis associated with inflammatory bowel disease Crohn's disease of both small and large intestine with other complication (HCC) Expected: 02/09/2023, Expires: 04/11/2023 [facility] Work Phone: Comment on above: Expected: 02/09/2023, Expires: 3 Start: 02-09-2023 End: 04-11-2023 Cyclic citrullinated peptide IgG Ab [Units/volume] in Serum or Plasma CCP ANTIBODY IGG Lab Routine SpondyloArthritis associated with inflammatory bowel disease Crohn's disease of both small and large intestine with other complication (HCC) Expected: 02/09/2023, Expires: 04/11/2023 [facility] Work Phone: Comment on above: Expected: 02/09/2023, Expires: 3 Start: 02-09-2023 End: 04-11-[address] LUPUS ANTICOAG PL Lab Routine SpondyloArthritis associated with inflammatory bowel disease Crohn's disease of both small and large intestine with other complication (HCC) Raynaud's phenomenon without gangrene Pers History of multiple miscarriages Expected: 02/09/2023, Expires: 04/11/2023 [facility] Work Phone: Comment on above: Expected: 02/09/2023, Expires: 3 Start: 02-09-2023 End: 04-11-2023 Parathyrin.intact [Mass/volume] in Serum or Plasma PTH INTACT BLD Lab Routine SpondyloArthritis associated with inflammatory bowel disease Crohn's disease of both small and large intestine with other complication (HCC) Vitamin D deficiency Expected: 02/09/2023, Expires: 04/11/2023 [facility] Work Phone: Comment on above: Expected: 02/09/2023, Expires: 3 Start: 02-09-2023 End: 04-11-2023 Rheumatoid factor [Units/volume] in Serum or Plasma RHEUMATOID FACTOR BL Lab Routine SpondyloArthritis associated with inflammatory bowel disease Crohn's disease of both small and large intestine with other complication (HCC) Expected: 02/09/2023, Expires: 04/11/2023 [facility] Work Phone: Comment on above: Expected: 02/09/2023, Expires: 3 Start: 12-10-2022 End: 02-09-2023 25-hydroxyvitamin D3 [Mass/volume] in Serum or Plasma [facility] Work Phone: Comment on above: Expected: 12/10/2022, Expires: 3 Start: 12-10-2022 End: 02-09-2023 BLOOD TB SCREEN [facility] Work Phone: Comment on above: Expected: 12/10/2022, Expires: 3 Start: 12-10-2022 End: 02-09-2023 Chronic hepatitis differentiation between hepatitis B and C virus panel - Serum or Plasma [facility] Work Phone: Comment on above: Expected: 12/10/2022, Expires: 3 Start: 12-10-2022 End: 02-09-2023 Cobalamin (Vitamin B12) [Mass/volume] in Serum or Plasma [facility] Work Phone: Comment on above: Expected: 12/10/2022, Expires: 3 Start: 12-10-2022 End: 02-09-2023 Comprehensive metabolic 2000 panel - Serum or Plasma [facility] Work Phone: Comment on above: Expected: 12/10/2022, Expires: 3 Start: 12-10-2022 End: 02-09-2023 Ferritin [Mass/volume] in Serum or Plasma [facility] Work Phone: Comment on above: Expected: 12/10/2022, Expires: 3 Start: 12-10-2022 End: 02-09-2023 Hepatitis A virus IgM Ab [Presence] in Serum [facility] Work Phone: Comment on above: Expected: 12/10/2022, Expires: 3 Start: 12-10-2022 End: 02-09-2023 Iron and Iron binding capacity panel - Serum or Plasma [facility] Work Phone: Comment on above: Expected: 12/10/2022, Expires: 3 Start: 11-28-2022 DEPRESSION ASSESSMENT DEPRESSION ASSESSMENT [facility] Start: 07-29-2022 Influenza vaccination INFLUENZA (#1) [facility] Start: 11-28-2021 DEPRESSION ASSESSMENT DEPRESSION ASSESSMENT [facility] Start: 10-30-2018 End: 10-30-2018 Ambulatory 10/30/2018 Office Visit Rheumatology Josh Burden MD [address] [place] [address] [phone] Division of Rheumatology Start: 07-29-2018 Influenza vaccination INFLUENZA VACCINE (#1) [facility] Work Phone: Start: 2013 HPV TESTING HPV TESTING [facility] Start: 2013 Screening for malignant neoplasm of cervix HPV Testing [facility] Start: 02-16-2004 PAP TESTING PAP TESTING [facility] Start: 02-16-2004 Screening for malignant neoplasm of cervix [facility] Start: 2002 HEPATITIS A (1 of 2 - Risk 2-dose series) HEPATITIS A (1 of 2 - Risk 2-dose series) [facility] Start: 2002 Hepatitis A Vaccine (1 of 2 - Risk 2-dose series) Hepatitis A Vaccine (1 of 2 - Risk 2-dose series) [facility] Start: 2002 SHINGRIX VACCINE (1 of 2) SHINGRIX VACCINE (1 of 2) [facility] Start: 2002 Third diphtheria, tetanus and acellular pertussis (DTaP) vaccination TDAP (ADULT) [facility] Work Phone: Start: 2002 Urine microalbumin profile [facility] Start: 2001 HEPATITIS C SCREENING HEPATITIS C SCREENING [facility] Start: 2001 HIV SCREENING HIV SCREENING [facility] Start: 2001 HIV screening HIV Screening [facility] Start: 2001 MMR (1 of 2 - Risk 2-dose series) MMR (1 of 2 - Risk 2-dose series) [facility] Start: 2001 MMR Vaccine (1 of 2 - Risk 2-dose series) MMR Vaccine (1 of 2 - Risk 2-dose series) [facility] Start: 2001 Tetanus vaccination TETANUS [facility] Work Phone: Start: 02-16-1996 HIV screening HIV SCREENING DISCUSSION [facility] Work Phone: Start: 1995 Adult depression screening assessment DEPRESSION SCREENING [facility] Start: 1993 Meningococcal B Vaccine: Consider Based On Risk (1 of 4 - Increased Risk) Meningococcal B Vaccine: Consider Based On Risk (1 of 4 - Increased Risk) [facility] Start: 1993 MENINGOCOCCAL B: Consider based on risk (1 of 4 - Increased Risk Bexsero 2-dose series) MENINGOCOCCAL B: Consider based on risk (1 of 4 - Increased Risk Bexsero 2-dose series) [facility] Start: 1993 MENINGOCOCCAL B: Consider based on risk (1 of 4 - Increased Risk) MENINGOCOCCAL B: Consider based on risk (1 of 4 - Increased Risk) [facility] Start: 1989 PNEUMOCOCCAL (1 - PCV) PNEUMOCOCCAL (1 - PCV) [facility] Start: 1989 [facility] Start: 02-16-1988 COVID-19 VACCINE (#1) COVID-19 VACCINE (#1) [facility] Start: 02-16-1984 HEPATITIS A (1 of 2 - Risk 2-dose series) HEPATITIS A (1 of 2 - Risk 2-dose series) [facility] Start: 1983 COVID-19 VACCINE (#1) COVID-19 VACCINE (#1) [facility] End: 07-05-2023 BREATH TEST GLUCOSE BREATH TEST GLUCOSE Endoscopy Routine Crohn's disease of both small and large intestine without complication (HCC) Crohn's disease of small and large intestines with complication (HCC) 1 Occurrences starting 07/05/2022 until 07/05/2023 [facility] Work Phone: Comment on above: 1 Occurrences starting 07/05/2022 until 07/05/2023 BREATH TEST GLUCOSE BREATH TEST GLUCOSE Endoscopy Routine Crohn's disease of both small and large intestine without complication (HCC) Crohn's disease of small and large intestines with complication (HCC) 09/24/2022 [facility] Work Phone: End: 07-05-2023 COLONOSCOPY DIAGNOSTIC COLONOSCOPY DIAGNOSTIC Endoscopy Routine Crohn's disease of both small and large intestine without complication (HCC) Crohn's disease of small and large intestines with complication (HCC) 1 Occurrences starting 07/05/2022 until 07/05/2023 [facility] Work Phone: Comment on above: 1 Occurrences starting 07/05/2022 until 07/05/2023 End: 01-09-2024 DXA-AXIAL SKELETON DXA-AXIAL SKELETON Radiology Routine 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 1 Occurrences starting 12/10/2022 until 01/09/2024 [facility] Work Phone: Comment on above: 1 Occurrences starting 12/10/2022 until 01/09/2024 End: 01-29-2024 ECG COMPLETE ECG COMPLETE ECG Routine Crohn's disease of small and large intestines with complication (HCC) 1 Occurrences starting 01/29/2023 until 01/29/2024 [facility] Work Phone: Comment on above: 1 Occurrences starting 01/29/2023 until 01/29/2024 H&P for surgery H&P FOR SURGERY Procedures Routine Crohn's disease of small and large intestines with complication (HCC) Ordered: 01/29/2023 [facility] Work Phone: Comment on above: Ordered: 01/29/2023 End: 08-04-2023 MRI ABD ENTEROG WO/W IVCON MRI ABD ENTEROG WO/W IVCON Radiology Routine Crohn's disease of both small and large intestine without complication (HCC) Crohn's disease of small and large intestines with complication (HCC) 1 Occurrences starting 07/05/2022 until 08/04/2023 [facility] Work Phone: Comment on above: 1 Occurrences starting 07/05/2022 until 08/04/2023 End: 08-04-2023 Mri pelvis w/o & w/contrast material MRI PEL ENTEROG WO/W IVCON Radiology Routine Crohn's disease of both small and large intestine without complication (HCC) Crohn's disease of small and large intestines with complication (HCC) 1 Occurrences starting 07/05/2022 until 08/04/2023 [facility] Work Phone: Comment on above: 1 Occurrences starting 07/05/2022 until 08/04/2023 Mri pelvis w/o & w/contrast material MRI FEMALE PELVIS WO/W IVCON Radiology Routine Endometriosis Pelvic pain in female 1 Occurrences starting 05/20/2023 [facility] Work Phone: Comment on above: 1 Occurrences starting 05/20/2023 PT ED PATIENT INFORMATION PT ED PATIENT INFORMATION Other 01/19/2023 [facility] Work Phone: REFER FOR ADMIT INTERVIEW REFER FOR ADMIT INTERVIEW Procedures Routine Crohn's disease of small and large intestines with complication (HCC) Ordered: 01/29/2023 [facility] Work Phone: Comment on above: Ordered: 01/29/2023 SURGICAL PATHOLOGY [facility] Work Phone: Comment on above: Release Upon Ordering for 1 Occurrences starting 12/03/2022, 1 completed [facility] Immunizations Immunization Date Immunization Notes Care Provider Chandrakant leyva 01-30-2023 influenza virus vacc ine, unspecified formulation Adrien Landers MD Work Phone: [facility] Payers Date Payer Category Payer Unknown MMO MMO [employer] [id number] 2022-Present [phone] [address] [place] [address] [facility] [id number] 2022 Unknown [id number] 1983 Unknown [id number] 1961 Unknown [id number] Social History Date Type Detail Facility [facility]: [facility] Work Phone: End: 09-28-2012 History of tobacco use Current smoker [facility] Work Phone: Start: 1985 Sex Assigned At Not on file [facility] Work Phone: Tobacco smoking stat [facility] Tobacco smoking consumption unknown [facility] Start: 06-25-2022 End: 08-13-2022 Exposure to SARS-CoV-2 (event) Not sure [facility] Start: 12-10-2022 End: 09-05-2023 Tobacco smoking status NHIS Smokes tobacco daily [facility] History of tobacco use Cigarette Smoker [facility] Start: 12-10-2022 End: 09-05-2023 Tobacco use and exposure Smokeless tobacco non-user [facility] Start: 12-10-2022 End: 10-18-2023 Alcohol intake Current drinker of alcohol (finding) [facility] Start: 04-13-2023 End: 05-10-2023 Cigarettes smoked current (pack per day) - Reported 0.5 [facility] Start: 05-10-2023 Alcohol Comment Twice a week [facility] Start: 04-13-2023 End: 05-20-2023 Tobacco use panel [facility] Adult Depression Screening Assessment 2 [facility] History of tobacco use Passive smoker [facility] Clinical Notes 07-01-2022 to 12-23-2023 Telephone Encounter - Mamta Patel - 11/14/2023 1:16 PM ESTPatient InstructionsPedro Luis Bailey 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 - 10/18/2023 2:34 PM ESTSGautam sky MD - 10/18/2023 1:00 PM EST Note Date & Type Note [facility] 12-23-2023 Note [facility] 12-23-2023 Note [facility] 12-22-2023 Note [facility] 12-22-2023 Note [facility] 12-09-2023 Note [facility] 12-09-2023 Note [facility] 11-23-2023 Note [facility] 11-14-2023 Miscellaneous Notes Images from the original note were not included. documented in this encounter [facility] 10-18-2023 Note [facility] 10-18-2023 Note [facility] 10-18-2023 Instructions Pedro Luis Bailey 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 - 10/18/2023 2:56 PM EST Nicotine Lozenges/ [...] DO NOT HEAR FROM SOMEONE, Please call [phone] SMOKING CESSATION Stopping smoking is the most [...] desirable brand of cigarettes. ___ Discard your referral clerk. Use matches. Carry your cigarettes in a [...] why you quit. Also remember that a [employer] industry spends billions of dollars each year [...] of children. Store at room temperature in pension consultant s packaging until ready to use. Throw [...] magnetic resonance imaging (MRI) procedure, tell your computer hardware technician if you have this patch on [...] all your medications. documented in this encounter [facility] 10-18-2023 History of Present illness Narrative Images from the original note were not included. [facility] SMOKING CESSATION PROGRAM CONSULT NOTE I will communicate the consult note back to the requesting health care provider by way of the shared medical record for internal providers or letter via the [email or web address] for external providers. October 18, 2023 CONSULTING PHYSICIAN/REFERRAL: Monica Be [address] [facility] [id number] REASON FOR CONSULT/REFERRAL: Tobacco Cessation Treatment HPI: [...] smoke at all. 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 She [...] OF PRIOR TOBACCO TREATMENT: Yes TREATMENT: Cold [place] TRIGGERS: Alcohol, Stress, and boredom PMH: PAST [...] which included preparing to see the patient, [id number] patient care, completing clinical documentation, obtaining and/or reviewing separately obtained history, performing a medically appropriate examination, counseling and educating the patient/family/caregiver, ordering medications, tests, or procedures, communicating with other HCPs (not separately reported), independently interpreting results (not separately reported), communicating results to the patient/family/caregiver, and care coordination (not separately reported). Pedro Luis Bailey 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 Pulmonary & Critical Care Medicine Respiratory [facility] October 18, 2023 2:34 PM CC Monica Be [address] [facility] [id number] and Brenda Landon MD via Sequ[employer] documented in this encounter [facility] 10-18-2023 History of Present illness Narrative [facility] [place] Department of Hematologic Oncology and Blood Disorders PATIENT NAME: [facility] NO: [id number] ATTENDING PHYSICIAN: Gautam Hill MD. DATE OF [...] which included preparing to see the patient, [id number] patient care, completing clinical documentation, obtaining and/or reviewing separately obtained history, performing a medically appropriate examination, counseling and educating the patient/family/caregiver, ordering medications, tests, or procedures, communicating with other HCPs (not separately reported), and independently interpreting results (not separately reported). Gautam Hill MD Cc. Hilary Shaffer MD [facility]--General Surgery Adrien Landers MD [facility]--NASCAR DRIVER documented in this encounter [facility] 10-18-2023 Nurse Note Clinical questionnaires incomplete due to Patient declined to complete or answer questions with nurse Additional intake questions: Has the patient had fever, nausea, vomiting, diarrhea, constipation, fatigue for > 1 week? No Does the patient have a decreased appetite? No Does patient want to see a Dry Roller? No (yes to any of above refer patient to schedulers for dietitian appointment) ) Does patient have any new or increased numbness or tingling of extremities? No Is patient interested in fertility information? No Does patient need any prescription refills? No Does patient have an advanced directive in place? No, Patient referred to [facility] documented in this encounter [facility] 09-29-2023 Note [facility] 09-23-2023 Note [facility] 09-23-2023 Instructions Luz Sims 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 - 09/23/2023 3:41 PM EDT -PLEASE NOTE THAT WE REVIEW ALL YOUR TEST RESULTS AT YOUR NEXT FOLLOW UP VISIT WITH YOU. IF ANY ABNORMAL LAB REQUIRES SOONER ATTENTION, WE WILL CONTACT YOU. -If you have signed up on Tango Networkst, we will release your test results through Tagkast. I wish you the best of health [...] track your nutrition and calcium intake on www.Greengro Technologies This provides macro and micronutrient intake and requirements. - You can track your calcium intake on Greengro Technologies or any other calcium tracker of your [...] track your nutrition and calcium intake on www.Greengro Technologies This provides macro and micronutrient intake and [...] that features the Whole Plant Based diet, [place] over knives (see video online and visit website). Another movie that was recently released is: Eating You Alive (you can find it at Sagebin) and The [employer] movie Dr. Jessica Mathis is a [facility] physician who is an expert in Whole Plant based diet. His website is Poachable. His research highlights the benefits of the Whole food plant based diet in reversing and preventing heart disease. Mrs. Mathis (his ) has a cookbook with many recipes on whole plant based food: The Prevent and Reverse Heart Disease cookbook. You can also consider reading his son, Richard Mathis's book: The Engine 2 cookbook Richard is a retired county sheriff who has helped many people get healthier [...] multiple free videos and YouTube, for example: https://youtu.be/vdbXdxsX7b0 , https://youtu.be/CaZYPlzeg1z He has written multiple books, including Power [...] heart disease, acne, and other, his website: www.cheli.Frazr Dr. Sydney Reyez is a renowned lidar scientist, who has studied and researched the benefits of the Whole plant based diet. He has also researched the adverse effects of animal proteins on health. He presents many of his research findings in his book The [place] study. Dr. Woody Marino has completed many research trials proving the reversal of diseases, such as heart disease and early prostate cancer, with healthy lifestyle and the Whole Plant based diet. Dr. Woody Marino website is: www.bashirBeiZ.Frazr His new book: Undo It, has evidence based information and guide to following this healthy lifestyle. Dr. Mukesh Kruger has dedicated a website and additional time to reviewing all food related articles and research and presents them in his power point presentation and on his website at: nutritionfacts.org which is all free. Dr. Kruger has multiple free videos and YouTube, for example https://Startupi.be/aSgNkhgVtks and https://Startupi.be/lXXXygDRyBU. He has written multiple books including: How Not To and How Not To Diet He is now working on his next book: How Not To Age Dr. Yajaira Jacobs (from the [facility]), has articles on the following website: KB Labs Also, you could find additional information on practical to follow recipes by reading or watching online and YouTube such as: Manager Hydraulic AJ, Cooking With Plants, The Vegan Corner (recipes from an Mauritian Manager Hydraulic), The Whole Foods Plant Based Cooking Show and visiting the provided websites for additional information on the whole plant based benefit and cooking recipes. You can also consider watching the vlogs of some of the plant based Athletes such as Rad Brooks Derek on Paperfold. Dr. Stacie Ray (a psychiatrist who suffered [...] - Gentle Yoga Anyone Can Do Anywhere www.Jackrabbit/yo ga Also on youtube: yoga with Itzel [...] or a higher dose. Raw: Garlic, Cilantro, [place] nuts, Pumpkin seeds, Ralston seeds and Flax seed powder have been reported to help with certain metal detoxification such as mercury. [place]-3 plant based rich foods are good anti-inflammatory [...] the Whole Plant Based Diet, by watching [place] over [facility] movie and then review website. There are many other resources and educational information on the Whole plant based diet on the Internet and documentaries. There are other resources for wellness that you can also benefit from, such as the [facility] Wellness website, [facility]org and includes Plant based and Mediterranean diet, yoga and meditation. Please avoid all dairy products. You could use non-dairy milk such as Flax milk, Cashew milk, Boulder milk, Rice milk, Oat milk or Hemp [...] Foundation) http://www.osteo.org/osteolinks.as p National Institutes of Health: 7-039-750-BONE The Calcium Information Center: -Non-Dairy, Plant based Milk, can contain in1 glass up to 450 mg of calcium (300 to 450 mg) Exampled include Oat Milk, Flax Milk, Boulder Milk, Cashew Milk, Soy Milk, Peas Milk general health and well being Examples of Food Sources of Calcium from NIH Food Milligrams (mg) per serving Percent DV* Soymilk, calcium-fortified, 8 ounces 299 30 [place] juice, calcium-fortified, 6 ounces 261 26 Tofu, firm, made with calcium sulfate, cup* 253 25 Tofu, soft, made with calcium sulfate, cup* 138 14 Muhyx-oe-dvs cereal, calcium-fortified, 1 cup 100-1,000 10-100 Turnip greens, fresh, boiled, cup 99 10 Kale, raw, chopped, 1 cup 100 10 Kale, fresh, cooked, 1 cup 94 9 Pakistani cabbage, bok greene, raw, shredded, 1 cup 74 7 Bread, white, 1 slice 73 7 Tortilla, corn, cmxet-ks-bukg/dunbar, one 6 diameter 46 5 Tortilla, flour, ldiny-qi-ydhj/dunbar, one 6 diameter 32 3 Bread, whole-wheat, [...] daily with a meal; Certain patients require 7017-6469 iu daily and in patients deficient in [...] bones. Studies show approximately 50% of [place] men and women are vitamin D deficient [...] available from: www.nof.org (the national osteoporosis foundation) http://www.oviedoclinic.org/art hritis/osteo/info.htm http://ods.od.nih.gov/factsheets/v itamind.asp Byers Institutes of Health: 7-235-253-BONE [facility] Calcium Information [place]: At the [facility], we work as a team for your care, along with Nurse Practitioners, Physician Assistants, Nurses and Medical Assistants. It is a privilege and honor to serve you. Thank you for choosing The [facility] for your healthcare. Sincerely, Luz Sims 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 documented in this encounter [facility] 09-23-2023 History of Present illness Narrative Images [...] was previously on Humira by her outside counter intelligence technician. Has had steroids over the yrs for [...] anti-inflammatory diet and lifestyle. 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 Has quit off and on. She is motivated to quit and is aware of risks. I counseled patient on smoking cessation. She is following with her Folder Seamer, IBD specialist, Dr. CLAUDIA Gonzalez, for her Crohn's disease. I reviewed last GI team note from Dec 10, 2022 : From a Crohn's standpoint, she has ileal and sigmoid colon involvement; no prior surgery. She was initially treated with intermittent prednisone and sulfasalazine/mesalamine. She has been on Humira since 2018 (also on it from 3260-8391)- started mostly for . However, she only [...] route for her case. - Roro Cain 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 At today's visit, she denies LB or [...] Gonzalez has referred for surgery. Per her Folder Seamer notes and plan: patient does not require [...] which included preparing to see the patient, lqot-cr-tsbj patient care, completing clinical documentation, obtaining and/or reviewing separately obtained history, performing a medically appropriate examination, counseling and educating the patient/family/caregiver, and ordering medications, tests, or procedures. Luz Sims 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 cc: PCP: Brenda Landon [address] [place] [address] Subjective HISTORY OF PRESENT ILLNESS NEW CONSULT [...] been under the care of IBD specialist, Folder Seamer, Dr. CLAUDIA Gonzalez, since 2021. He confirmed her diagnosis of Crohn's disease She has had IBD for about 10 yrs; Reports has had colonoscopies and biopsies to confirm States she was diagnosed with based on her sacroiliitis, around age 16 yrs, by a Ripsaw Grader Initially was being diagnosed for torn muscle, [...] peeling in the soles , states saw Crocheter Hand and was not given diagnosis for psoriasis [...] to immunogenicity and does not work. Her Ripsaw Grader left [place] States since changed her diet, has not [...] or skin States if blended in a outside sales manager can have. She consumes cheese, daily, as [...] Denies history of uveitis; has not seen turfgrass technician Eye Dryness: No Nose Bleeds: No Sores [...] ulcers Memory Loss: No Swollen Glands: No Folder Seamer notes reviewed Per corporate communications intern notes: 37 year old female with PMHx [...] was prescribed flagyl and symptoms resolved. Labs [id number] provided significant for elevated CRP to 5 in 10/2017, and Fecal calpro 90 in 05/2018. Last C-scope ~2017 per pt, records unavailable, CD did not look active, however she has a stricture in the ileocolonic region, never needed dilation. Ms. Lucas is here today as her local GI is retiring, from [place], [place]. She follows with [facility] in [facility], [...] TERMINAL ILEUM. PENETRATING DISEASE: ABSENT. BILATERAL SACROILIITIS. Stock Analyst: JHONNY Transcribe Date/Time: Aug 14 2022 3:16P [...] CD. ? Per faxed records from [facility] [place] when seen 10/2019 by GI there: Diagnosed [...] was prescribed flagyl and symptoms resolved. Labs [id number] provided significant for elevated CRP to 5 [...] lupus anticoag panel + Consult to [facility] saw Dr. Page 09/14/23 Has anti phospholipid [...] - SM ANTIBODY Negative Negative - RIBOSOMAL PERSONAL INSURANCE ADVISOR AB <1.0 AI <0.2 - RIBOSOMAL PERSONAL INSURANCE ADVISOR QUAL Negative Negative - CHROMATIN AB <1.0 AI <0.2 - CHROMATIN AB QUAL Negative Negative - SSA ANTIBODY QUAL Negative Negative - ANTI-SSA <1.0 AI <0.2 - ANTI-SSB <1.0 AI <0.2 - PERSONAL INSURANCE ADVISOR ANTIBODY QUAL Negative Negative - SCL-70 AB [...] (Final result) Impression: IMPRESSION: 1. Bilateral sacroiliitis. Stock Analyst: JHONNY Transcribe Date/Time: Jan 19 2023 12:03P ... Last MRI Hip/Pelvis - Impression Only MRI FEMALE PELVIS WO/W IVCON Exam End: 07/12/2023 6:25 PM (Final result) Impression: IMPRESSION: NO FOCI OF ENDOMETRIOSIS OR DEEP INFILTRATIVE ENDOMETRIOSIS IDENTIFIED. NO ACUTE FINDINGS IN THE PELVIS. Stock Analyst: JHONNY ... Last CT Hip/Pelvis - Impression [...] (Hcc) Postoperative Pain Uti (Urinary Tract Infection) Penitentiary Current Use of Anticoagulant Hypercoagulable State (Hcc) [...] Data (across time) documented in this encounter [facility] 09-22-2023 Note [facility] 09-22-2023 History of Present illness Narrative Images from the original note were not included. COLORECTAL SURGERY VIRTUAL VISIT FOLLOW UP I have communicated my name and active licensure. The patient's identity and physical location were verified at the time of this visit. Either the patient or their legal life assurance representative has been informed of the risks [...] mucous and blood in her stool around 0200-8501. Started on Humira after that time. Had remission during in 2011 Started on Humira in 2016 with significant improvement in symptoms Recently transferred her care from [facility]. Had repeat staging during this process and [...] BILATERAL SACROILIITIS. 05/03/17 Small bowel series- [facility]: [place] Medical Decision Making: Assessment Assessment & Diagnosis: Jocelyne Lucas is a 38 year old [...] 4 - Moderate documented in this encounter [facility] 09-20-2023 Miscellaneous Notes Patient was advised to [...] having the colonoscpoy. documented in this encounter [facility] 09-20-2023 Miscellaneous Notes Addended by: LAMONT BROWN on: 09/20/2023 10:26 AM Modules accepted: Orders Patient left voicemail for prep, message forward to Office. documented in this encounter [facility] 09-18-[address] Page, Spoke [...] [facility] documented in this encounter [facility] 09-14-2023 Note [facility] 09-14-2023 History of Present illness Narrative Images from the original note were not included. [facility] [place] SECTION OF REGIONAL CARDIOLOGY OUTPATIENT VISIT DATE September 14, 2023 OUTPATIENT VISIT TYPE NEW PRIMARY CARE PHYSICIAN: Brenda Landon [address] [place] [address] REFERRING PHYSICIAN: Franchesca Zuniga [address] [facility] [place] [address] Patient is being seen at the request [...] See Comments CURRENT MEDICATIONS: adalimumab (HUMIRA,CF, PEN HHAECE-OP-OU) 80 mg/0.8 mL pen kit Inject 160 [...] Parish Page MD documented in this encounter [facility] 09-14-2023 History of Past i llness Narrative Problem Noted Date Diagnosed Date Resolved Date Antiphospholipid syndrome 09/14/2023 documented as of this encounter (statuses as of 10/11/2023) [facility]10-18-2023 History of Past illness Narrative* Problem Noted Date Diagnosed Date Resolved Date Antiphospholipid syndrome 09/14/2023 documented as of this encounter (statuses as of 10/19/2023) [facility]10-18-2023 History of Past illness Narrative* Problem Noted Date Diagnosed Date Resolved Date Antiphospholipid syndrome 09/14/2023 documented as of this encounter (statuses as of 10/19/2023) [facility]10[facility]18[facility]23 History of Past illness Narrative* Problem Noted Date Diagnosed Date Resolved Date Antiphospholipid syndrome 09/14/2023 documented as of this encounter (statuses as of 11/15/2023) [facility]ructions * Patient Instructions* Beth Bingham - [...] within 5 days - then please call [phone] Once contacted by the scheduling team, you will work with the manager emergency department to select a surgical OR date that works for both you and the provider The manager emergency department will set up all of your Pre-Op appointments, which may include all or some of the following: Pre-Op consent appointment w/ your provider Pre-Op teaching appointment - *can be done virtually Labs Admit Interview OnePACC (Anesthesia Clearance) And any other testing that the provider orders for prior to surgery You will receive a call from the criminal psychologist the day prior to your surgery as to when and where to arrive on the day of your scheduled surgery QUESTIONS: If you have any clinical questions: Please contact your provider's office directly; [phone] If you have any scheduling questions: Please contact the surgery scheduling office at [phone] THANK YOU for choosing the [facility]! We wish you a speedy recovery and continued good health! [facility] History of Present illness Narrative* Adrien Cruz MD - 09/05/2023 2:30 PM EDT Images from the original note were not included. [facility] SECTION FOR MINIMALLY INVASIVE GYNECOLOGIC SURGERY OUTPATIENT VISIT DATE 09/05/2023 OUTPATIENT VISIT TYPE ESTABLISHED PRIMARY CARE PHYSICIAN: Brenda Landon [address] [place] [address] CHIEF COMPLAINT: Follow up HISTORY OF PRESENT [...] Outpatient Medications Medication Sig adalimumab (HUMIRA,CF, PEN FCVRXR-EY-OK) 80 mg/0.8 mL pen kit Inject 160 [...] prefer she have her surgery performed at [facility] in case I need Dr. Shaffer's [...] AM Adrien Landers MD documented [facility] Miscellaneous Notes* Telephone Encounter - EunDeanna chao [...] that may recur and often requires a skilled nursing treatment plan. Once endometriosis is identified, there [...] AM Adrien Landers MD documented in this encounter[facility] Miscellaneous Notes* Telephone Encounter - Ankita Vega - 06/16/2023 6:17 PM EDTSummary: FREDDY PA VENEGAS: [id number] Additional Information Required An active PA is already on file with expiration date of 11/26/2023. Please wait to resubmit requestwithin 60 days of that expiration date to obtain a PA renewal. documented in this encounter[facility] [facility]06-23-2023 Instructions* Patient Instructions* Beth Bingham - 05/20/2023 9:12 AM EDT PERMACULTURE DESIGNER [phone] OFFICE [phone] A BRATTICE BUILDER [facility] SURGICAL SCHEDULERS documented in this encounterFire[facility] History of Present illness Narrative* Adrien Landers MD - 05/20/2023 8:30 AM EDT Images from the original note were not included. [facility] [place] SECTION FOR MINIMALLY INVASIVE GYNECOLOGIC SURGERY OUTPATIENT VISIT DATE 05/20/2023 OUTPATIENT VISIT TYPE CONSULT PRIMARY CARE PHYSICIAN: Brenda Landon [address] [place] [address] CHIEF COMPLAINT: Endo Consultation requested by Dr [...] unremarkable. Lower thorax: Minimal bilateral subsegmental atelectasis. Blown Film Extrusion Operator (topogram) images: No additional findings. Past [...] directed every 24 hours. adalimumab (HUMIRA,CF, PEN AHANRN-BH-VT) 80 mg/0.8 mL pen kit Inject 160 [...] that may recur and often requires a termite helper treatment plan. Once endometriosis is identified, there [...] AM Adrien Landers MD documented in this encounterFirelands [facility]06-[facility] Instructions* Patient Instructions* Luz Sims 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 - 05/19/2023 9:23 AM EDT -PLEASE NOTE THAT WE REVIEW ALL YOUR TEST RESULTS AT YOUR NEXT FOLLOW UP VISIT WITH YOU. IF ANY ABNORMAL LAB REQUIRES SOONER ATTENTION, WE WILL CONTACT YOU. -If you have signed up on ItzCash [employer] Ltd.hart, we will release your test results through Tagkast. I wish you the best of health [...] track your nutrition and calcium intake on www.MobileX Labs.Frazr This provides macro and micronutrient intake and requirements. - You can track your calcium intake on Greengro Technologies or any other calcium tracker of your [...] track your nutrition and calcium intake on www.MobileX Labs.Frazr This provides macro and micronutrient intake and [...] that features the Whole Plant Based diet, [place] over knives (see video online and visit website). Another movie that was recently released is: Eating You Alive (you can find it at Sagebin) and The Game Ch[employer] movie Dr. Jessica Mathis is a [facility] physician who is an expert in Whole Plant based diet. His website is Poachable. His research highlights the benefits of the Whole food plant based diet in reversing and preventing heart disease. Mrs. Mathis (his ) has a cookbook with many recipes on whole plant based food: The Prevent and Reverse Heart Disease cookbook. You can also consider reading his son, Richard Mathis's book: The Engine 2 cookbook Richard is a retired county sheriff who has helped many people get healthier by following the whole food plantbased diet. Dr. Pancho Maya, has a website and free michelet to help get started on a whole plant based diet, at www.ShowMe.tv.org and you can log on for free for his 21-Day Kickstart with meals and recipes to follow for21 days. There is also a free michelet for that. He has multiple free videos and YouTube, for example: ht tps://youHaozu.comu.be/huyIitsN4o3 , https://Grand Prix Holdings USAu.be/NgMBUplbj6y He has written multiple books, including Wututu for the Brain, The Cheese Trap, Dr. Pancho Maya's Program for Reversing Diabetes, Your Body in Balance Dr. Valente Valera has shown the benefit of a starch based whole food plant based diet to his Rheumatoid Arthritis patients, as well as patient with diabetes II, hypertension, obesity, multiple sclerosis, heart disease, acne, and other, his website: www.cheli.Frazr Dr. Sydney Reyez is a renowned lidar scientist, who has studied and researched the benefits of the Whole plant based diet. He has also researched the adverse effects of animal proteins on health. He presents many of his research findings in his book The [place] study. Dr. Woody Marino has completed many research trials proving the reversal of diseases, such as heart disease and early prostate cancer, with healthy lifestyle and the Whole Plant based diet. Dr. Woody Marino website is: www.bashirBeiZ.Frazr His new book: Undo It, has evidence based information and guide to following this healthy lifestyle. Dr. Mukesh Kruger has dedicated a website and additional time to reviewing all food related articles and research and presents them in his power point presentation and on his website at: nutritionfacts.org which is all free. Dr. Kruger has multiple free videos and YouTube, for example https://youHaozu.comu.be/aSgNkhgVtks and https://you[employer].be/lXXXygDRyBU. He has written multiple books including: How Not To and How Not To Diet He is now working on his next book: How Not To Age Dr. Yajaira Jacobs (from the [facility]), has articles on the following website: KB Labs Also, you could find additional information on practical to follow recipes by reading or watching online and YouTube such as: Manager Hydraulic AJ, Cooking With Plants, The Vegan Corner (recipes from an Mauritian Manager Hydraulic), The Whole Foods Plant Based Cooking Show and visiting the provided websites for additional information on the whole plant based benefit and cooking recipes. You can also consider watching the vlogs of some of the plant based Athletes such as Rad Brooks Derek on Paperfold. Dr. Stacie Ray (a psychiatrist who suffered [...] - Gentle Yoga Anyone Can Do Anywhere www.Trivnet.Frazr/yoga Also on youtube: yoga with Itzel 3- [...] based diet, it is recommended to take HdfknkgS45, sublingual, dissolve under the tongue, take once daily. Vitamin B12 is available over the counter, dose could be 2500 mcg, and can be taken once a week, and if your blood levels are low, you mayneed to take it once daily or a higher dose. Raw: Garlic, Cilantro, [place] nuts, Pumpkin seeds, [place]alston seeds and Flax seed powder have been reported to help with certain metal detoxification such as mercury. [place]-3 plant based rich foods are good anti-inflammatory [...] the Whole Plant Based Diet, by watching [place] over [facility] movie and then review website. There are many other resources and educational information on the Whole plant based diet on the Internet and documentaries. There are other resources for wellness that you can also benefit from, such as the [facility] website, [facility]org and includes Plant based and Mediterranean diet, yoga and meditation. Please avoid all dairy products. You could use non-dairy milk such as Flax milk, Cashew milk, [place] milk, Rice milk, Oat milk or Hemp [...] following resources: www.nof.org (National Osteoporosis Foundation) http://www.osteo.org/osteolinks.asp Byers Institutes of [facility]: 5-667-183-BONE The Calcium Information [place]: -Non-Dairy, Plant based Milk, can contain in1 glass up to 450 mg of calcium (300 to 450 mg) Exampled include Oat Milk, Flax Milk, [place] Milk, Cashew Milk, Soy Milk, Peas Milk general health and well being Examples of Food Sources of Calcium from NIH Food Milligrams (mg) per serving Percent DV* Soymilk, calcium-fortified, 8 ounces 299 30 [place] juice, calcium-fortified, 6 ounces 261 26 Tofu, firm, made with calcium sulfate, cup* 253 25 Tofu, soft, made with calcium sulfate, cup* 138 14 Xhomz-sf-bul cereal, calcium-fortified, 1 cup 100-1,000 10-100 Turnip greens, fresh, boiled, cup 99 10 Kale, raw, chopped, 1 cup 100 10 Kale, fresh, cooked, 1 cup 94 9 Pakistani cabbage, bok greene, raw, shredded, 1 cup 74 7 Bread, white, 1 slice 73 7 Tortilla, corn, mgttd-er-nliu/dunbar, one 6 diameter 46 5 Tortilla, flour, ktdyi-xo-eyea/dunbar, one 6 diameter 32 3 Bread, whole-wheat, [...] daily with a meal; Certain patients require 2380-4381 iu daily and in patients deficient in [...] bones. Studies show approximately 50% of [place] men and women are vitamin D deficient [...] available from: www.nof.org (the national osteoporosis foundation) http://www.[facility].org/arthritis/osteo/info.htm http://ods.od.nih.gov/factsheets/vitamind.asp [facility]: 1-021-145-BONE The Calcium Information [place]: At the [facility], we work as a team for your care, along with Nurse Practitioners, PhysicianAssistants, Nurses and Medical Assistants. It is a privilege and honor to serve you. Thank you for choosing The [facility] for your healthcare. Sincerely, Luz Sims APRN.MITCHELL documented in this encounterFirelands Regional Medical Center South Campus06-22-2023 History of Present illness Narrative* Luz Sims [...] was previously on Humira by her outside counter intelligence technician. Has had steroids over the yrs for [...] anti-inflammatory diet and lifestyle. 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 Has quit off and on. She is motivated to quit and is aware of risks. I counseled patient on smoking cessation. She is following with her Folder Seamer, IBD specialist, Dr. CLAUDIA Gonzalez, for her Crohn's disease. I reviewed last GI team note from Dec 10, 2022 : From a Crohn's standpoint, she has ileal and sigmoid colon involvement; no prior surgery. She wasinitially treated with intermittent prednisone and sulfasalazine/mesalamine. She has been on Humirasince 2018 (also on it from 1066-5726)- started mostly for . However, she only [...] route for her case. - Roro Cain 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 At today's visit, she denies LB or [...] Gonzalez has referred for surgery. Per her Folder Seamer notes and plan: patient does not require [...] which included preparing to see the patient, fcmt-bf-thnc patient care, completing clinical documentation, obtaining and/or reviewing separately obtained history, performing a medically appropriate examination, and counseling and educating the patient/family/caregiverPortions of this note have been copied from my previous note and have beenupdated to reflect today's visit note May 19, 2023 all reflect current medical decision making from date of this visit. Luz Sims 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 cc: PCP: Brenda Landon [address] [facility] [place] [address] Subjective HISTORY OF PRESENT ILLNESS NEW CONSULT [...] been under the care of IBD specialist, Folder Seamer, Dr. CLAUDIA Gonzalez, since 2021. He confirmed her diagnosis of Crohn's disease She has had IBD for about 10 yrs; Reports has had colonoscopies and biopsies to confirm States she was diagnosed with based on her sacroiliitis, around age 16 yrs, by a Ripsaw Grader Initially was being diagnosed for torn muscle, [...] peeling in the soles , states saw Crocheter Hand and was notgiven diagnosis for psoriasis No [...] to immunogenicity and does not work. Her Ripsaw Grader left [place] States since changed her diet, has not had a severe flare up in 2 yrs States was doing shrimp and rice and salads, nuts, fruits and veggies States has since started a totally different diet and started exercising and is good. [facility] Dr. Gonzalez did not recommended biologic [...] or skin States if blended in a outside sales manager can have. She consumes cheese, daily, as [...] Denies history of uveitis; has not seen turfgrass technician Eye Dryness: No Nose Bleeds: No Sores [...] ulcers Memory Loss: No Swollen Glands: No Folder Seamer notes reviewed Per corporate communications intern notes: 37 year old female with PMHx [...] she was prescribed flagyl and symptoms resolved.Labs 1451-3848 provided significant for elevated CRP to 5 in 10/2017, and Fecal calpro 90 in 05/2018. Last C-scope ~2017 per pt, records unavailable, CD did not look active, however she has a stricture in the ileocolonic region, never needed dilation. Ms. Lucas is here today as her local GI is retiring, from [place], [place]. She follows with [facility], planning [...] TERMINAL ILEUM. PENETRATING DISEASE: ABSENT. BILATERAL SACROILIITIS. Stock Analyst: JHONNY Transcribe Date/Time: Aug 14 2022 3:16P [...] was prescribed flagyl and symptoms resolved. Labs 8736-1198 provided significant for elevated CRP to 5 [...] - SM ANTIBODY Negative Negative - RIBOSOMAL PERSONAL INSURANCE ADVISOR AB <1.0 AI <0.2 - RIBOSOMAL PERSONAL INSURANCE ADVISOR QUAL Negative Negative - CHROMATIN AB <1.0 AI <0.2 - CHROMATIN AB QUAL Negative Negative - SSA ANTIBODY QUAL Negative Negative - ANTI-SSA <1.0 AI <0.2 - ANTI-SSB <1.0 AI <0.2 - PERSONAL INSURANCE ADVISOR ANTIBODY QUAL Negative Negative - SCL-70 AB [...] (Final result) Impression: IMPRESSION: 1. Bilateral sacroiliitis. Stock Analyst: JHONNY Transcribe Date/Time: Jan 19 2023 12:03P [...] Outpatient Medications Medication Sig adalimumab (HUMIRA,CF, PEN [id number]-FF-ZU) 80 mg/0.8 mL pen kit Inject 160 [...] Exam Data (across time) documented in this encounterFirelands Regional Medical Center [facility]06-20-2023 Miscellaneous Notes* Telephone Encounter - Eren Willard RPh - 05/17/2023 4:43 PM EDT Prior authorization for pended medication(s) has been approved; however, due to insurance restrictions Rx must be filled at [facility] ([phone]) Specialty Pharamcy. Pended Orders ID Status Description Pended By When Reason [id number] Pended adalimumab (HUMIRA,CF, PEN TFHOJJ-BO-CR) 80 mg/0.8 mL pen kit Eren Willard [facility] 05/17/23 [id number] Pended adalimumab 40 mg/0.4 mL subcutaneous pen kit (HUMIRA (CF))- EVERY 2 WEEKS Eren Willard RPh 05/17/23 1646 If refill request approved, eRx will be sent to above Specialty Pharmacy for processing. Thank you. Eren Willard, PharmD Clinical Pharmacist, Biologics, Neurology, and Hepatology [facility] ; Pool: P [facility] Pool #: [id number] documented in this encounterFirelands Regional Medical Center South Campus06-16-2023 [facility]06[facility]23 History of Present illness Narrative* Roro Bass - 05/13/2023 7:27 AM EDT [facility] received prescription(s) for Humira from Dr. Israel's office. Benefits investigation was conducted, indicating that a prior authorization is required by patient'sinsurance plan with [employer]. Encounter will be updated once prior authorization has been submitted by [facility]. Roro Kali, amf mechanic, Inflammatory/Allergy [facility] [phone] documented in this encounterFirelands Regional Medical Center South Campus06-14-2023 Miscellaneous Notes* Telephone Encounter - Ankita Hamilton [...] Colonoscopy in 3 months - Referral to manager traffic to discuss Mediterranean diet, and Dr. Bonilla [...] q2 weeks? Thanks! Jennifer documented in this encounterFirelands Regional Medical Center South Campus06-13-2023 [facility]Mag[facility]05-02-2023 [facility]05-02-2023 History of Present illness Narrative* Pedro Israel PA-C - 03/29/2023 4:40 PM EDT Virtual Follow Up Visit Provider Location: [facility] Facility Patient Location: Patient Home or Place of Residence ASHVIN Lucas [id number] has requested a video telemedicine for [...] No history of dysuria, frequency or incontinence BRATTICE BUILDER: Negative for abnormal vaginal bleeding, abnormal vaginal [...] with more than 50% of the total gdwc-hi-hlhp time of the visit in counseling / [...] visit. Either the patient or their legal life assurance representative has been informed of the risks and benefits of -- and alternatives to -- treatment through a remote evaluation andconsents to proceed with the evaluation remotely. Pedro Israel PA-C March 29, 2023 4:41 PM documented in this encounterFirelands Regional Medical Center [facility] Campus04-27-2023 [facility]Mag[facility]04-27-2023 History of Present illness Narrative* Hilary Shaffer MD - 03/24/2023 4:00 PM EDT Images from the original note were not included. COLORECTAL SURGERY VIRTUAL VISIT FOLLOW UP I have communicated my name and active licensure. The patient's identity and physical location wereverified at the time of this visit. Either the patient or their legal life assurance representative has been informed of the risks [...] mucous and blood in her stool around 2789-9460. Started on Humira after that time. Had remission during in 2011 Started on Humira in 2016 with significant improvement in symptoms Recently transferred her care from [facility]. Had repeat staging during this process and [...] Reactions Morphine Other: See Comments Assessment Assessment: Jocelyne Lucas is a 38 year old female who is 5 weeks status post laparoscopic ileocolic resection with Kono S reconstruction for ileocolic Crohn's Plan Plan: Doing well - ok to liberalize diet and activity OK to resume Crohn's medications - will facilitate GI follow up. She is agreeable to no longer using Humira PRN She would like to see someone from BRATTICE BUILDER regarding her endometriosis diagnosis - will facilitate Follow up with me as needed Hilary Shaffer MD documented in this encounterFirelands Regional Medical Center South Campus04-11-2023 NoteMag[facility]04-11-2023 [facility]Mag[facility]04-11-2023 [facility]Mag[facility]04-10-2023 [facility]04-10-2023 NoteHNO ID: [id number] Author: RT Helena(R) Service: ? Author Type: Technologist Type: Progress Notes Filed: 03/07/2023 5:42 PM Note Text: xray: [facility]04-10-2023 Miscellaneous Notes* Telephone Encounter - Cara Tovar [...] states understanding and prefers to present to [facility] ED- no further questions or concerns Signature Cara Tovar RN March 07, 2023 documented in this encounterFirelands Regional Medical Center South Campus04-07-2023 NotePROCEDURE: XR ANKLE LT MIN 3 V HISTORY: Arthralgia of the ankle and/or foot COMPARISON: None. FINDINGS: BONES:No fracture, acute abnormality, or significant arthropathy. SOFT TISSUES:No visible soft tissue swelling. EFFUSION:None visible. OTHER: Negative. IMPRESSION: 1. Normal examination. Electronically authenticated by: SUSAN DE LA FUENTE Date: 2023-03-04 15:58[facility]04-05-2023 Miscellaneous Notes* Telephone Encounter - Hilary Shaffer MD - 03/02/2023 5:20 PM EDT I spoke with pt who reports she is having right lower quadrant abdominal pain only at night between3 and 6 AM. Resolves on its own. Discussed pathology findings including endometriosis. Notes she was advised of this some years ago.She will follow up with her BRATTICE BUILDER. Also reviewed EKG findings Hilary Shaffer MD documented in this encounterFirelands Regional Medical Center South Campus04-04-2023 Miscellaneous Notes* Telephone Encounter - Cara Tovar [...] 03/01/2023 9:57 AM EDT ----- Contact: See Tagkast message, plus has a few other questions. Prefers a call back documented in this encounterFirelands Regional Medical Center South Campus03-29-2023 Miscellaneous Notes* Telephone Encounter - Landy Souza RN - 02/23/2023 10:29 AM EDT PATIENT INFORMATION Record ID: [id number] Patient [facility]: [facility]: [facility]: Digestive Disease [facility] Attending: Hilary Shaffer Center: Colorectal Surgery INSTRUCTIONS SN to remind patient of appointment date, time, location All Clear Ask follow question #4b on NOC section of survey. All Clear All Clear SURVEY INFORMATION Medical/Nurse Pipe And Boiler Covers Supervisor: Landy Souza 1. Your discharge instructions are [...] symptoms? (Standard Question) No documented in this encounterFirelands Regional Medical Center South Campus03-22-2023 NoteMag[facility]03-21-2023 NoteMag[facility]03-20-2023 NoteMag[facility]03-17-2023 [facility]Mag[facility]03-17-2023 History and physical note* Shelby Garcia PA-C [...] Department of Colorectal Surgery documented in this encounterFirelands Regional Medical Center South Campus03-17-2023 History of Present illness Narrative* Yadira Cortez [...] in Department: COLORECTAL SURGERY documented in this encounterFirelands Regional Medical Center South Campus03-07-2023 Miscellaneous Notes* Telephone Encounter - Cara Tovar RN - 02/01/2023 1:50 PM EST SPECIALTY CARE COORDINATION FOLLOW-UP NOTE Call received- Pt agreeable to moving sx to 02/14/23- to leave pre-operative appts on 02/11 as is No further questions or concerns at this time- pt has call back number Signature Cara Tovar RN February 01, 2023 documented in this encounterFirelands Regional Medical Center South Campus03-07-2023 Miscellaneous Notes* Telephone Encounter - Cara Tovar RN - 02/01/2023 12:10 PM EST SPECIALTY CARE COORDINATION FOLLOW-UP NOTE VML Calling in regards to upcoming surgery, just had a last minute cancellation and was wondering if she would be amenable to moving her surgical date sooner. Pt to call in to discuss- number left. Signature Cara Tovar RN February 01, 2023 documented in this encounterFirelands Regional Medical Center South Campus03-02-2023 History and physical note * Hilary Shaffer [...] for internal providers or letter via the [employer] for external providers. Chief Complaint: Crohn's disease of small and large intestines with complication History of Present Illness: Jocelyne Lucas is a 37 year old year old female with a history of Crohn's disease, diagnosed in 2010. Notes mucous and blood in her stool around 7858-2088. Started on Humira after that time. Had remission during in 2011 Started on Humira in 2016 with significant improvement in symptoms Recently transferred her care from [facility]. Had repeat staging during this process and [...] Level: 4 - Moderate documented in this encounterFirelands Regional Medical Center South Campus02-27-[address] [facility]02-27-2023 History of Present illness Narrative* Venice Bonilla RPh - 01/24/2023 9:20 AM EST IBD PharmD Follow-Up See 01/07/23 Tagkast message re: smoking cessation. Will discontinue NRT lozenge due to mouth sores. Rx for NRT patch 7 mg daily sent to pharmacy. Requested MyChart check-in from pt in one week after NRT patch initiation. documented in this encounterFirelands Regional Medical Center South Campus02-23-2023 Miscellaneous Notes* Telephone Encounter - Venice Bonilla RPh - 01/20/2023 9:17 AM EST Smoking Cessation Follow-Up See Tagkast correspondence from 01/07/23. Attempted to call Jocelyne to obtain more details and discuss plan - no response. documented in this encounterFirelands Regional Medical Center South Campus02-22-[address] [facility]02-22-[address] [facility]02-22-2023 Instructions* Patient Instructions* Franchesca Zuniga MD - 01/19/2023 9:37 AM EST -PLEASE NOTE THAT WE REVIEW ALL YOUR TEST RESULTS AT YOUR NEXT FOLLOW UP VISIT WITH YOU. IF ANY ABNORMAL LAB REQUIRES SOONER ATTENTION, WE WILL CONTACT YOU. -If you have signed up on Tagkast, we will release your test results through [...] track your nutrition and calcium intake on www.[employer].Frazr This provides macro and micronutrient intake and requirements. - You can track your calcium intake on [employer] or any other calcium tracker of your [...] track your nutrition and calcium intake on www.MobileX [employer].Frazr This provides macro and micronutrient intake and [...] that features the Whole Plant Based diet, [place] over knives (see video online and visit website). Another movie that was recently released is: Eating You Alive (you can find it at Sagebin) and The [employer] movie Dr. Jessica Mathis is a [facility] physician who is an expert in Whole Plant based diet. His website is Poachable. His research highlights the benefits of the Whole food plant based diet in reversing and preventing heart disease. Mrs. Mathis (his ) has a cookbook with many recipes on whole plant based food: The Prevent and Reverse Heart Disease cookbook. You can also consider reading his son, Richard Mathis's book: The Engine 2 cookbook Richard is a retired county sheriff who has helped many people get healthier [...] free videos and YouTube, for example: ht tps://youHaozu.comu.be/oavKyrcV6h1 , https://Startupi.be/KvJQIobym8h He has written multiple books, including Power [...] heart disease, acne, and other, his website: www.cheli.Frazr Dr. Sydney Reyez is a renowned lidar scientist, who has studied and researched the benefits of the Whole plant based diet. He has also researched the adverse effects of animal proteins on health. He presents many of his research findings in his book The [place] study. Dr. Woody Marino has completed many research trials proving the reversal of diseases, such as heart disease and early prostate cancer, with healthy lifestyle and the Whole Plant based diet. Dr. Woody Marino website is: www.bashirBeiZ.Frazr His new book: Undo It, has evidence based information and guide to following this healthy lifestyle. Dr. Mukesh Kruger has dedicated a website and additional time to reviewing all food related articles and research and presents them in his power point presentation and on his website at: nutritionfacts.org which is all free. Dr. Kruger has multiple free videos and YouTube, for example https://Startupi.be/aSgNkhgVtks and https://Startupi.be/lXXXygDRyBU. He has written multiple books including: How Not To and How Not To Diet He is now working on his next book: How Not To Age Dr. Yajaira Jacobs (from the [facility]), has articles on the following website: [employer] Boounce.Frazr Also, you could find additional information on practical to follow recipes by reading or watching online and YouTube such as: Manager Hydraulic AJ, Cooking With Plants, The Vegan Corner (recipes from an Maur[place] Manager Hydraulic), The Whole Foods Plant Based Cooking Show and visiting the provided websites for additional information on the whole plant based benefit and cooking recipes. You can also consider watching the vlogs of some of the plant based Athletes such as Joel Coles, Rad Patel, Tylor on Paperfold. Dr. Stacie Ray (a psychiatrist who suffered [...] - Gentle Yoga Anyone Can Do Anywhere www.Jackrabbit/yoga Also on youtube: yoga with Itzel 3- [...] based diet, it is recommended to take KjoohwnV49, sublingual, dissolve under the tongue, take once daily. Vitamin B12 is available over the counter, dose could be 2500 mcg, and can be taken once a week, and if your blood levels are low, you mayneed to take it once daily or a higher dose. Raw: Garlic, Cilantro, [place] nuts, Pumpkin seeds, [place]alston seeds and Flax seed powder have been reported to help with certain metal detoxification such as mercury. [place]-3 plant based rich foods are good anti-inflammatory [...] the Whole Plant Based Diet, by watching [place] over [facility] movie and then review website. There are many other resources and educational information on the Whole plant based diet on the Internet and documentaries. There are other resources for wellness that you can also benefit from, such as the [facility] website, [facility]org and includes Plant based and Mediterranean diet, yoga and meditation. Please avoid all dairy products. You could use non-dairy milk such as Flax milk, Cashew milk, Boulder milk, Rice milk, Oat milk or Hemp [...] Osteoporosis Foundation) http://www.osteo.org/osteolinks.asp National Institutes of Health: 0-184-150-BONE The Calcium Information [place]: -Non-Dairy, Plant based Milk, can contain in1 glass up to 450 mg of calcium (300 to 450 mg) Exampled include Oat Milk, Flax Milk, Boulder Milk, Cashew Milk, Soy Milk, Peas Milk general health and well being Examples of Food Sources of Calcium from [facility] Food Milligrams (mg) per serving Percent DV* Soymilk, calcium-fortified, 8 ounces 299 30 [place] juice, calcium-fortified, 6 ounces 261 26 Tofu, firm, made with calcium sulfate, cup* 253 25 Tofu, soft, made with calcium sulfate, cup* 138 14 Aufeb-ig-wzh cereal, calcium-fortified, 1 cup 100-1,000 10-100 Turnip greens, fresh, boiled, cup 99 10 Kale, raw, chopped, 1 cup 100 10 Kale, fresh, cooked, 1 cup 94 9 Pakistani cabbage, bok greene, raw, shredded, 1 cup 74 7 Bread, white, 1 slice 73 7 Tortilla, corn, efnqs-kd-dxus/dunbar, one 6 diameter 46 5 Tortilla, flour, efqmp-rv-bwcq/dunbar, one 6 diameter 32 3 Bread, whole-wheat, [...] daily with a meal; Certain patients require 7210-8068 iu daily and in patients deficient in [...] bones. Studies show approximately 50% of [place] men and women are vitamin D deficient [...] foundation) http://www.[facility].org/arthritis/osteo/info.htm http://ods.od.nih.gov/factsheets/vitamind.asp National Institutes of Health: 9-637-307-BONE The Calcium Information Center: At the [facility], we work as a team for your care, along with Nurse Practitioners, PhysicianAssistants, Nurses and Medical Assistants. It is a privilege and honor to serve you. Thank you for choosing The [facility] for your healthcare. Sincerely, Franchesca Springer MD documented in this encounterFirelands Regional Medical Center [facility] Campus02-22-2023 History of Present illness Narrative* Franchesca Zuniga MD - 01/19/2023 9:21 AM EST Images from the original note were not included. Rheumatology CONSULTATION Referring Provider: Cuco Gonzalez MD Date of Service: 01/19/2023 Gender: female Ethnicity: Age: [age] year old Chief Complaint: New Patient Last Rheumatology visit: [facility] at [facility] Jocelyne Lucas is a 37 year old [...] been under the care of IBD specialist, Folder Seamer, Dr. CLAUDIA Gonzalez, since 2021. He confirmed her diagnosis of Crohn's disease She has had IBD for about 10 yrs; Reports has had colonoscopies and biopsies to confirm States she was diagnosed with based on her sacroiliitis, around age 16 yrs, by a Ripsaw Grader Initially was being diagnosed for torn muscle, [...] peeling in the soles , states saw Crocheter Hand and was notgiven diagnosis for psoriasis No [...] to immunogenicity and does not work. Her Ripsaw Grader left [place] States since changed her diet, has not [...] or skin States if blended in a outside sales manager can have. She consumes cheese, daily, as [...] Denies history of uveitis; has not seen turfgrass technician Eye Dryness: No Nose Bleeds: No Sores [...] ulcers Memory Loss: No Swollen Glands: No Folder Seamer notes reviewed Per corporate communications intern notes: 37 year old female with PMHx [...] she was prescribed flagyl and symptoms resolved.Labs 0450-1375 provided significant for elevated CRP to 5 in 10/2017, and Fecal calpro 90 in 05/2018. Last C-scope ~2017 per pt, records unavailable, CD did not look active, however she has a stricture in the ileocolonic region, never needed dilation. Ms. Lucas is here today as her local GI is retiring, from [place], [place]. She follows with [facility], planning [...] TERMINAL ILEUM. PENETRATING DISEASE: ABSENT. BILATERAL SACROILIITIS. Stock Analyst: JHONNY Transcribe Date/Time: Aug 14 2022 3:16P [...] was prescribed flagyl and symptoms resolved. Labs [id number] provided significant for elevated CRP to 5 [...] was at 20 wks; states saw MFM/high school drafting teacher was placed on lovenox) - Raynaud's - [...] was at 20 wks; states saw MFM/high school drafting teacher was placed on lovenox) Joint inflammation No [...] (Final result) Impression: IMPRESSION: 1. Bilateral sacroiliitis. Stock Analyst: JHONNY Transcribe Date/Time: Jan 19 2023 12:03P [...] was previously on Humira by her outside counter intelligence technician. Has had steroids over the yrs for [...] anti-inflammatory diet and lifestyle. 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 Has quit off and on. She is motivated to quit and is aware of risks. I counseled patient on smoking cessation. She is following with her Folder Seamer, IBD specialist, Dr. LCAUDIA Gonzalez, for her Crohn's disease. I reviewed last GI team note from Dec 10, 2022 : From a Crohn's standpoint, she has ileal and sigmoid colon involvement; no prior surgery. She wasinitially treated with intermittent prednisone and sulfasalazine/mesalamine. She has been on Humirasince 2017 (also on it from 5540-5737)- started mostly for . However, she only [...] route for her case. - Roro Cain 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 At today's visit, she denies LB or [...] Gonzalez has referred for surgery. Per her Folder Seamer notes and plan: patient does not require [...] which included preparing to see the patient, [id number] patient care, completing clinical documentation, obtaining and/or reviewing separately obtained history, performing a medically appropriate examination, counseling and educating the pat ient/family/caregiver, ordering medications, tests, or procedures, communicating with other HCPs (not separately reported), independently interpreting results (not separately reported), communicatingresults to the patient/family/caregiver, and care coordination (not separately reported)and ewdroat56 min the following day. Franchesca Zuniga MD cc: referring: Cuco Gonzalez MD cc: PCP: Brenda Landon MD Medical Decision Making: Medical Decision Making Level: 1 - N/A documented in this encounterFirelands [facility]02-03-20[facility] History of Present illness Narrative* Venice Bonilla, [facility] - 12/31/2022 10:30 AM EST IBD Medication Consult [facility] Patient consents to pharmacy consult agreement. The [...] in places where it is forbidden (e.g., yarsanism, library)? No (0) Which cigarette would you [...] NRT gum Past Medical History Cardiac hx (SC, arrhythmias, angina): No /: No Dental (missing [...] Time spent (mins): 30 documented in this encounterFirelands Regional Medical Center [facility] Campus02-01-2023 Miscellaneous Notes* Telephone Encounter - Elda Sutton Research Coordinator - 12/29/2022 2:19 PM EST Called patient to remind her about her missed ePRO and fecal calprotectin test for the STARWP3 study. Pt didn't answer , left voice message . documented in this encounterFirelands [facility]01-27-2023 History of Present illness Narrative* RT Maegan(R) [...] 24, 2022 11:08 AM documented in this encounterFirelands Regional Medical Center [facility]01-13-2023 Instructions* Patient Instructions* Roro Cain APRN.CNP - [...] your usual activities immediately. documented in this encounterFirelands Regional Medical Center [facility]01-13-2023 History of Present illness Narrative* Roro Cain APRN.CNP - 12/10/2022 10:00 AM EST .Follow Up Visit SUBJECTIVE Jocelyne Lucas [id number] presents to the clinic today with [...] she was prescribed flagyl and symptoms resolved.Labs [id number] provided significant for elevated CRP to 5 in 10/2017, and Fecal calpro 90 in 05/2018. Last C-scope ~2017 per pt, records unavailable, CD did not look active, however she has a stricture in the ileocolonic region, never needed dilation. Ms. Lucas is here today as her local GI is retiring, from [place], [place]. She follows with [facility], planning [...] Humira since 2017 (also on it from 3536-8747)- started mostlyfor . However, she only uses [...] on 01/19/2023 - Follow up with Dr. Gonzalez in 4-6 months I spent a total of 43 minutes on the date of the service which included preparing to see the patient, fiip-bu-zvbr patient care, completing clinical documentation, obtaining and/or [...] Rheum regarding restarting Humira. documented in this encounterFirelands [facility] Medical [facility]01-06-2023 Nurse Note* Ashia Downey RN - 12/03/2022 [...] RN In Department: GASTROENTEROLOGY documented in this encounterFirelands Regional Medical [facility]12-29-2022 Miscellaneous Notes* Telephone Encounter - Ana Paula Murray RN - 11/25/2022 2:06 PM EST Topic: Pre-Procedure Message Attempted to reach the patient at the contact number that they provided [phone] (home) . Unable to speak with patient so without identifying the patient the following information was left on their voice mail: Date of procedure, location and report time A message was left informing the patient/patient life assurance representative they must have a responsible adult [...] Number to call with questions or concerns [phone] Number to call to cancel their procedure [phone] Ana Paula Murray RN documented in this encounterFirelands Regional Medical [facility]11-30-2022 Miscellaneous Notes* Telephone Encounter - Elda Sutton, Research Coordinator - 10/27/2022 2:20 PM EST Called patient to remind her about her missed ePRO and fecal calprotectin test for the STARWP3 study. Pt didn't answer , left voice message . documented in this [facility]10-28-2022 History of Present illness Narrative* Christina Cerna RN - 09/24/2022 11:43 AM EDT Name: Jocelyne Lucas [facility]#: [id number] Date: 09/24/2022 GLUCOSE - BREATH HYDROGEN & [...] completed. .Christina Cerna RN documented in this [facility]10-03-2022 Miscellaneous Notes* Telephone Encounter - Elda Sutton Research Coordinator - 08/30/2022 2:17 PM EDT Called patient to remind her about her missed ePRO and fecal calprotectin test for the STARWP3 study. Pt didn't answer , left voice message . documented in this [facility]09-19-2022 Miscellaneous Notes* Telephone Encounter - Marsha Butts [...] calprotectin by mail . documented in this [facility]09-16-2022 History of Present illness Narrative* Kelley [...] 13, 2022 6:45 PM documented in this encounterFirelands [facility] Medical [facility]09-16-2022 History of Present illness Narrative* Kelley Menchaca [...] By Kelley Menchaca RN documented in this encounterFirelands Regional Medical [facility]09-16-2022 History of Present illness Narrative* Josh Millard - 08/13/2022 6:15 PM EDT INFORMED CONSENT STUDY TITLE: Prospective Observational Study to Validate a Novel PRO Tool and Imaging Index Items in Stricturing Crohn s Disease IRB NO.: [id number] Sponsor: [facility] AIRCRAFT LOAD CONTROLLER: Dr. Jimy Barrios M.D. Patient [facility] Contact Information: Josh Millard E-mail: [email or web address] Nadine Davies E-mail: [email or web address] The Patient was provided the study [...] Obtained by: Elda Sutton documented in this encounterFirelands Regional Medical Center [facility] Campus09-16-2022 History of Present illness Narrative* Elda Sutton Research Coordinator - 08/13/2022 6:15 PM EDT INFORMED CONSENT STUDY TITLE: Prospective Observational Study to Validate a Novel PRO Tool and Imaging Index Items in Stricturing Crohn s Disease IRB NO.: [id number] Sponsor: [facility] AIRCRAFT LOAD CONTROLLER: Dr. Jimy Barrios M.D. Patient [facility] Contact Information: Josh Millard E-mail: Elda Sutton E-mail: [email or web address] The Patient was provided the study informed [...] Elda Sutton Research Coordinator documented in this encounterFirelands Regional Medical [facility]09-16-2022 History of Present illness Narrative* RT Keira(R) [...] 13, 2022 8:26 PM documented in this encounterFirelands Regional Medical Center [facility]08-08-2022 Instructions* Patient Instructions* Jennifer Flores MD - [...] If you do not have a responsible garbage collector driver (family member or friend) with you [...] your exam. 2 10/2019 documented in this encounterFirelands Regional Medical [facility]08-08-2022 History of Present illness Narrative* Cuco Gonzalez MD - 07/05/2022 7:45 AM EDT [facility] NO: [id number] REASON FOR VISIT Jocelyne Lucas is a [...] she was prescribed flagyl and symptoms resolved.Labs [id number] provided significant for elevated CRP to 5 in 10/2017, and Fecal calpro 90 in 05/2018. Last C-scope ~2017 per pt, records unavailable, CD did not look active, however she has a stricture in the ileocolonic region, never needed dilation. Ms. Lucas is here today as her local GI is retiring, from [place], [place]. She follows with [facility], planning [...] a year a the discretion of her Ripsaw Grader, since seems to be well controlled, and [...] Humira since 2018 (also on it from 6555-4121)- started mostly for . However, she only [...] others. Cuco Gonzalez MD documented in this encounterFirelands [facility]08-04-2022 Miscellaneous Notes* Telephone Encounter - Soledad Bhatia [...] provided. Soledad Bhatia RN documented in this encounterFirelands Regional Medical Center South CampusEvalutrinity health note* Diagnosis Crohn's disease of both small and large intestine without complication (HCC)- Primary Regional enteritis of small intestine with large intestine Crohn's disease of small and large intestines with complication (HCC) Bloating Flatulence, eructation, and gas pain documented in this encounter [facility]* Diagnosis Crohn's disease of both small and large intestine without complication (HCC) Regional enteritis of small intestine with large intestine Crohn's disease of small and large intestines with complication (HCC) documented in this encounter [facility]* Diagnosis Crohn's disease of both [...] and large intestines with complication (HCC)- Primary [facility] current use of systemic steroids Encounter for long-term (current) use of steroids [facility] Diagnosis Vitamin D deficiency- Primary Unspecified vitamin D deficiency [facility] Diagnosis 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 Encounter for [...] coagulation profile- Primary [facility] Diagnosis Adenomyosis Endometriosis of uterus Dysmenorrhea Abnormal uterine bleeding Unspecified disorder of menstruation and other abnormal bleeding from female genital tract [facility]* Diagnosis Pre-op testing- Primary Preoperative examination, unspecified Adenomyosis Endometriosis of uterus Dysmenorrhea Abnormal uterine bleeding Unspecified disorder of menstruation and other abnormal bleeding from female genital tract documented [facility]* Diagnosis Antiphospholipid syndrome (HCC)- Primary Primary hypercoagulable state Hypercoagulable state (HCC) Primary hypercoagulable state Adenomyosis Endometriosis of uterus Dysmenorrhea Abnormal uterine bleeding Unspecified disorder of menstruation and other abnormal bleeding from female genital tract [facility]* Diagnosis Antiphospholipid syndrome (HCC)- Primary Primary hypercoagulable state termination clerk current use of anticoagulant Long-term (current) use of anticoagulants Adenomyosis Endometriosis of uterus Dysmenorrhea Abnormal uterine bleeding Unspecified disorder of menstruation and other abnormal bleeding from female genital tract [facility]* Diagnosis Antiphospholipid syndrome (HCC) Primary hypercoagulable state Crohn's disease with complication, unspecified gastrointestinal tract location (HCC)- Primary Adenomyosis Endometriosis of uterus Dysmenorrhea Abnormal uterine bleeding Unspecified disorder of menstruation and other abnormal bleeding from female genital tract documented in this encounter [facility]* Diagnosis Crohn's disease of small and large intestines with complication (HCC)- Primary Antiphospholipid syndrome (HCC) Primary hypercoagulable state Adenomyosis Endometriosis of uterus Dysmenorrhea Abnormal uterine bleeding Unspecified disorder of menstruation and other abnormal bleeding from female genital tract documented in this encounter [facility]* Diagnosis Arthritis associated with inflammatory bowel [...] female genital tract documented in this encounter [facility] note* Diagnosis Antiphospholipid syndrome (HCC) Primary hypercoagulable state Hypercoagulable state (HCC) Primary hypercoagulable state Adenomyosis Endometriosis of uterus Dysmenorrhea Abnormal uterine bleeding Unspecified disorder of menstruation and other abnormal bleeding from female genital tract documented in this encounter [facility]* Diagnosis Cigarette nicotine dependence without complication- Primary Tobacco use disorder Adenomyosis Endometriosis of uterus Dysmenorrhea Abnormal uterine bleeding Unspecified disorder of menstruation and other abnormal bleeding from female genital tract documented in this encounter [facility] note* Diagnosis Cigarette nicotine dependence without complication Tobacco use disorder Adenomyosis Endometriosis of uterus Dysmenorrhea Abnormal uterine bleeding Unspecified disorder of menstruation and other abnormal bleeding from female genital tract documented in this encounter [facility] for referral (narrative)* Outpatient Procedure (Routine) - Closed Specialty Diagnoses / Procedures Referred By Neisha t Referred To Contact [facility] Diagnoses Crohn's disease of both small and large intestine without complication (HCC) Crohn's disease of small and large intestines with complication (HCC) Procedures COLONOSCOPY DIAGNOSTIC COLONOSCOPY FLX DX W/COLLJ SPEC WHEN PFRMD Cuco Gonzalez MD [address] [place] [address] [facility] [address] [place] [id number] Referral ID Status Reason Start Date Expiration Date V isits Requested Visits Authorized [id number] Closed Auto-Generate d Referral 07/05/2022 07/05/2023 [address] [facility] for referral (narrative)* Diagnostic Procedure Only (Routine) - Closed Specialty Diagnoses / Procedures Referred By Contac t Referred To Contact XR IMAGING Diagnoses Back stiffness Arthritis associated with inflammatory bowel disease Procedures XR THORACIC GENERAL 3V AP/LAT/SWIMMERS RADEX SPINE THORACIC 3 VIEWS Franchesca Zuniga MD [address] [place] [address] Xr Imaging Referral ID Status Reason Start Date Expiration Date V isits Requested Visits Authorized [id number] Closed Auto-Generate d Referral 01/19/2023 02/18/2024 1 1 * Diagnostic Procedure Only (Routine) - Closed Specialty Diagnoses / Procedures Referred By Contac t Referred To Contact XR IMAGING Diagnoses Bilateral sacroiliitis (HCC) Arthritis associated with inflammatory bowel disease Procedures XR SACROILIAC JOINTS 2V AP PELVIS/FERGUESON RADIOLOGIC EXAMINATION SACROILIAC JNTS <3 VIEWS Franchesca Zuniga MD [address] [place] [address] Xr Imaging Referral ID Status Reason Start Date Expiration Date V isits Requested Visits Authorized [id number] Closed Auto-Generate d Referral 01/19/2023 02/18/2024 1 1 * Consult, Test, Treat (Routine) - Closed Specialty Diagnoses / Procedures Referred By Contac t Referred To Contact [facility] Diagnoses Vision changes Procedures CONSULT TO OPHTHALMOLOGY OFFICE/OUTPATIENT [facility] MDM 60-74 MINUTES Franchesca Zuniga MD [address] [place] [address] [facility] [address] [place] [id number] Referral ID Status Reason Start Date Expiration Date V isits Requested Visits Authorized [id number] Closed PCP Requested Referral 01/19/2023 01/19/2024 1 1 [facility] for referral (narrative)* Outpatient Procedure (Routine) - Pending Review Specialty Diagnoses / Procedures Referred By Contac t Referred To Contact [facility] Diagnoses Crohn's disease of small and large intestines with complication (HCC) Procedures ECG COMPLETE ECG ROUTINE ECG W/LEAST 12 LDS W/I&R Hilary Shaffer MD [address] [place], [place] [id number] [place] [phone] Referral ID Status Reason Start Date Expiration Date Visits Requested Visits Authorized [id number] Pending Review Auto-Generat ed Referral 01/29/2023 01/28/2024 1 1 [facility] for visit Narrative* Outpatient Procedure (Routine) - Closed Specialty Diagnoses / Procedures Referred By Contac t Referred To Contact [facility] Diagnoses Crohn's disease of both small and large intestine without complication (HCC) Crohn's disease of small and large intestines with complication (HCC) Procedures COLONOSCOPY DIAGNOSTIC COLONOSCOPY FLX DX W/COLLJ SPEC WHEN PFRMD Cuco Gonzalez MD [address] [place], [place] [id number] [facility] Disease [place] [phone] Referral ID Status Reason Start Date Expiration Date V isits Requested Visits Authorized [id number] Closed Auto-Generate d Referral 07/05/2022 07/05/2023 1 1 [facility] Summary Purpose Family History No Family History [...] (HCC) Procedures CONSULT TO RHEUM/IMMUN DISEASE OFFICE/OUTPATIENT [facility] MDM 60-74 MINUTES Cuco Gonzalez MD [address] [place] [id number] Referral ID Status Reason Start Date Expiration Date Visits Requested Visits Authorized [id number] Authorized PCP Requested Referral 07/05/2022 07/05/2023 1 1 Specialty Diagnoses / Procedures Referred By Contac t Referred To Contact [facility] Diagnoses Crohn's disease of both small and large intestine without complication (HCC) Crohn's disease of small and large intestines with complication (HCC) Procedures BREATH TEST GLUCOSE BREATH HYDROGEN/METHANE TEST Cuco Gonzalez MD [address] [place] [address] [facility] [place] [address] Referral ID Status Reason Start Date Expiration Date Visits Requested Visits Authorized [id number] Authorized Auto-Generat ed Referral 07/05/2022 07/05/2023 1 1 Specialty Diagnoses / Procedures Referred By Contac t Referred To Contact [facility] Diagnoses Crohn's disease of both small and large intestine without complication (HCC) Crohn's disease of small and large intestines with complication (HCC) Procedures COLONOSCOPY DIAGNOSTIC COLONOSCOPY FLX DX W/COLLJ SPEC WHEN PFRMD Cuco Gonzalez MD [address] [place] [address] [facility] [place] [address] Referral ID Status Reason Start Date Expiration Date Visits Requested Visits Authorized [id number] Pending Review Auto-Generat ed Referral 07/05/2022 07/05/2023 1 1 Specialty Diagnoses / Procedures Referred By Contac t Referred To Contact MR IMAGING Diagnoses Crohn's disease of both small and large intestine without complication (HCC) Crohn's disease of small and large intestines with complication (HCC) Procedures MRI PEL ENTEROG WO/W IVCON MRI PELVIS W/O & [place] [address] [place] [id number] Mr Imaging Referral ID Status Reason Start Date Expiration Date V isits Requested Visits Authorized [id number] Closed Auto-Generate d Referral 07/05/2022 08/04/2023 1 [...] W/O & W/CONTRAST MATERIAL Cuco Gonzalez MD [address] [place] [address] Mr Imaging Referral ID Status Reason Start Date Expiration Date Visits Requested Visits Authorized [id number] Authorized Auto-Generat ed Referral 07/28/2022 09/11/2022 2 2 Referral ID Status Reason Start Date Expiration Date V isits Requested Visits Authorized [id number] Closed Auto-Generate d Referral 07/28/2022 09/11/2022 2 2 Specialty Diagnoses / Procedures Referred By Contac t Referred To Contact Colon and Rectal Surgery Diagnoses Crohn's disease of small and large intestines with complication (HCC) Procedures CONSULT TO COLO-RECTAL SURGERY OFFICE/OUTPATIENT [facility] 60-74 MINUTES Roro Cain, COY.SAFETY ASSOCIATE [address] [place] [address] Referral ID Status Reason Start Date Expiration Date Visits Requested Visits Authorized [id number] Authorized PCP Requested Referral 12/10/2022 12/10/2023 1 1 Specialty Diagnoses / Procedures Referred By Contac t Referred To Contact Nutrition Diagnoses Crohn's disease of small and large intestines with complication (HCC) Procedures CONSULT TO NUTRITION THERAPY OFFICE/OUTPATIENT [facility] MDM 60-74 MINUTES Roro Cain, MECHANICAL DOOR REPAIRER.SAFETY ASSOCIATE [address] [place] [address] Referral ID Status Reason Start Date Expiration Date Visits Requested Visits Authorized [id number] Authorized PCP Requested Referral 12/10/2022 12/10/2023 1 1 Specialty Diagnoses / Procedures Referred By Contac t Referred To Contact MR IMAGING Diagnoses Endometriosis Pelvic pain in female Procedures MRI FEMALE PELVIS WO/W IVCON MRI PELVIS W/O & W/CONTRAST MATERIAL Adrien Cruz MD [address] [place] [address] Mr Imaging Referral ID Status Reason Start Date Expiration Date Visits Requested Visits Authorized [id number] Pending Review Auto-Generat ed Referral 05/20/2023 06/18/2024 1 1 Specialty Diagnoses / Procedures Referred By Contac t Referred To Contact Ophthalmology Diagnoses Vision changes Procedures CONSULT TO OPHTHALMOLOGY OFFICE/OUTPATIENT [facility] 60-74 MINUTES Luz Sims, MECHANICAL DOOR REPAIRER.SAFETY ASSOCIATE [address] [place] [address] Referral ID Status Reason Start Date Expiration Date Visits Requested Visits Authorized [id number] Authorized PCP Requested Referral 05/19/2023 05/18/2024 1 1 Specialty Diagnoses / Procedures Referred By Contac t Referred To Contact Diagnoses Arthritis associated with inflammatory bowel disease Back stiffness Bilateral sacroiliitis (HCC) Luz Sims, MECHANICAL DOOR REPAIRER.SAFETY ASSOCIATE [address] [place] [address] Referral ID Status Reason Start Date Expiration Date V isits Requested Visits Authorized [id number] Authorized 04/19/2023 05/20/2024 1 1 Specialty Diagnoses / Procedures Referred By Contac t Referred To Contact Vascular Medicine Diagnoses Abnormal coagulation profile Procedures CONSULT TO VASCULAR MEDICINE OFFICE/OUTPATIENT [facility] 60-74 MINUTES Franchesca Zuniga MD [address] [place] [address] Referral ID Status Reason Start Date Expiration Date Visits Requested Visits Authorized [id number] Authorized PCP Requested Referral 06/06/2023 06/05/2024 1 [...] state (HCC) Procedures CONSULT TO HEMATOLOGY/ONCOLOGY OFFICE/OUTPATIENT [facility] 60-74 MINUTES Hilary Shaffer MD [address] [place] [address] Referral ID Status Reason Start Date Expiration Date V isits Requested Visits Authorized [id number] Closed PCP Requested Referral 09/19/2023 09/18/2024 1 [...] W/O & W/CONTRAST MATERIAL Cuco Gonzalez MD [address] [place] [address] Mr Imaging Referral ID Status Reason Start Date Expiration Date V isits Requested Visits Authorized [id number] Closed Auto-Generate d Referral 07/28/2022 09/11/2022 2 [...] GLUCOSE BREATH HYDROGEN/METHANE TEST Cuco Gonzalez MD [address] [place] [address] [facility] [address] [place] [address] Referral ID Status Reason Start Date Expiration Date V isits Requested Visits Authorized [id number] Closed Auto-Generate d Referral 07/05/2022 07/05/2023 1 [...] NEW HIGH MDM 60-74 MINUTES Roro Cain 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 [address] [place] [address] Referral ID Status Reason Start Date Expiration Date V isits Requested Visits Authorized [id number] Closed PCP Requested Referral 12/10/2022 12/10/2023 1 1 Reason Comments Credit Risk Manager - Other Patient Update Reason Comments Pre-Op Exam Reason Comments Follow Up Phone Call All Clear Reason Comments Returning Patient's Call Credit Risk Manager - Other Patient Question Reason Comments Results Reason Comments Credit Risk Manager - Other Patient Question Reason Comments Orders [...] or prosecute any alcohol or drug abuse patient.[facility]In the event this information is protected by the Federal Confidentiality of Alcohol and Drug Abuse Patient Records regulations: The Federal rules restrict any use of the information to criminally investigate or prosecute any alcohol or drug abuse patient.[facility] CampusIn the event this information is protected by the Federal Confidentiality of Alcohol and Drug Abuse Patient Records regulations: The Federal rules restrict any use of the information to criminally investigate or prosecute any alcohol or drug abuse patient.[facility] CampusIn the event this information is protected by the Federal Confidentiality of Alcohol and Drug Abuse Patient Records regulations: The Federal rules restrict any use of the information to criminally investigate or prosecute any alcohol or drug abuse patient.[facility] CampusIn the event this information is protected by the Federal Confidentiality of Alcohol and Drug Abuse Patient Records regulations: The Federal rules restrict any use of the information to criminally investigate or prosecute any alcohol or drug abuse patient.[facility] CampusIn the event this information is protected by the Federal Confidentiality of Alcohol and Drug Abuse Patient Records regulations: The Federal rules restrict any use of the information to criminally investigate or prosecute any alcohol or drug abuse patient.[facility] CampusIn the event this information is protected by the Federal Confidentiality of Alcohol and Drug Abuse Patient Records regulations: The Federal rules restrict any use of the information to criminally investigate or prosecute any alcohol or drug abuse patient.[facility] CampusIn the event this information is protected by the Federal Confidentiality of Alcohol and Drug Abuse Patient Records regulations: The Federal rules restrict any use of the information to criminally investigate or prosecute any alcohol or drug abuse patient.[facility] CampusIn the event this information is protected by the Federal Confidentiality of Alcohol and Drug Abuse Patient Records regulations: The Federal rules restrict any use of the information to criminally investigate or prosecute any alcohol or drug abuse patient.[facility] CampusIn the event this information is protected by the Federal Confidentiality of Alcohol and Drug Abuse Patient Records regulations: The Federal rules restrict any use of the information to criminally investigate or prosecute any alcohol or drug abuse patient.[facility] CampusIn the event this information is protected by the Federal Confidentiality of Alcohol and Drug Abuse Patient Records regulations: The Federal rules restrict any use of the information to criminally investigate or prosecute any alcohol or drug abuse patient.[facility] CampusIn the event this information is protected by the Federal Confidentiality of Alcohol and Drug Abuse Patient Records regulations: The Federal rules restrict any use of the information to criminally investigate or prosecute any alcohol or drug abuse patient.[facility] CampusIn the event this information is protected by the Federal Confidentiality of Alcohol and Drug Abuse Patient Records regulations: The Federal rules restrict any use of the information to criminally investigate or prosecute any alcohol or drug abuse patient.[facility] CampusIn the event this information is protected by the Federal Confidentiality of Alcohol and Drug Abuse Patient Records regulations: The Federal rules restrict any use of the information to criminally investigate or prosecute any alcohol or drug abuse patient.[facility] CampusIn the event this information is protected by the Federal Confidentiality of Alcohol and Drug Abuse Patient Records regulations: The Federal rules restrict any use of the information to criminally investigate or prosecute any alcohol or drug abuse patient.[facility] CampusIn the event this information is protected by the Federal Confidentiality of Alcohol and Drug Abuse Patient Records regulations: The Federal rules restrict any use of the information to criminally investigate or prosecute any alcohol or drug abuse patient.[facility] CampusIn the event this information is protected by the Federal Confidentiality of Alcohol and Drug Abuse Patient Records regulations: The Federal rules restrict any use of the information to criminally investigate or prosecute any alcohol or drug abuse patient.[facility] CampusIn the event this information is protected by the Federal Confidentiality of Alcohol and Drug Abuse Patient Records regulations: The Federal rules restrict any use of the information to criminally investigate or prosecute any alcohol or drug abuse patient.[facility] CampusIn the event this information is protected by the Federal Confidentiality of Alcohol and Drug Abuse Patient Records regulations: The Federal rules restrict any use of the information to criminally investigate or prosecute any alcohol or drug abuse patient.[facility] CampusIn the event this information is protected by the Federal Confidentiality of Alcohol and Drug Abuse Patient Records regulations: The Federal rules restrict any use of the information to criminally investigate or prosecute any alcohol or drug abuse patient.[facility] CampusIn the event this information is protected by the Federal Confidentiality of Alcohol and Drug Abuse Patient Records regulations: The Federal rules restrict any use of the information to criminally investigate or prosecute any alcohol or drug abuse patient.[facility] CampusIn the event this information is protected by the Federal Confidentiality of Alcohol and Drug Abuse Patient Records regulations: The Federal rules restrict any use of the information to criminally investigate or prosecute any alcohol or drug abuse patient.[facility] CampusIn the event this information is protected by the Federal Confidentiality of Alcohol and Drug Abuse Patient Records regulations: The Federal rules restrict any use of the information to criminally investigate or prosecute any alcohol or drug abuse patient.[facility] CampusIn the event this information is protected by the Federal Confidentiality of Alcohol and Drug Abuse Patient Records regulations: The Federal rules restrict any use of the information to criminally investigate or prosecute any alcohol or drug abuse patient.[facility] CampusIn the event this information is protected by the Federal Confidentiality of Alcohol and Drug Abuse Patient Records regulations: The Federal rules restrict any use of the information to criminally investigate or prosecute any alcohol or drug abuse patient.[facility] CampusIn the event this information is protected by the Federal Confidentiality of Alcohol and Drug Abuse Patient Records regulations: The Federal rules restrict any use of the information to criminally investigate or prosecute any alcohol or drug abuse patient.[facility] CampusIn the event this information is protected by the Federal Confidentiality of Alcohol and Drug Abuse Patient Records regulations: The Federal rules restrict any use of the information to criminally investigate or prosecute any alcohol or drug abuse patient.[facility] CampusIn the event this information is protected by the Federal Confidentiality of Alcohol and Drug Abuse Patient Records regulations: The Federal rules restrict any use of the information to criminally investigate or prosecute any alcohol or drug abuse patient.[facility] CampusIn the event this information is protected by the Federal Confidentiality of Alcohol and Drug Abuse Patient Records regulations: The Federal rules restrict any use of the information to criminally investigate or prosecute any alcohol or drug abuse patient.[facility] CampusIn the event this information is protected by the Federal Confidentiality of Alcohol and Drug Abuse Patient Records regulations: The Federal rules restrict any use of the information to criminally investigate or prosecute any alcohol or drug abuse patient.[facility] CampusIn the event this information is protected by the Federal Confidentiality of Alcohol and Drug Abuse Patient Records regulations: The Federal rules restrict any use of the information to criminally investigate or prosecute any alcohol or drug abuse patient.[facility] CampusIn the event this information is protected by the Federal Confidentiality of Alcohol and Drug Abuse Patient Records regulations: The Federal rules restrict any use of the information to criminally investigate or prosecute any alcohol or drug abuse patient.[facility] CampusIn the event this information is protected by the Federal Confidentiality of Alcohol and Drug Abuse Patient Records regulations: The Federal rules restrict any use of the information to criminally investigate or prosecute any alcohol or drug abuse patient.[facility] CampusIn the event this information is protected by the Federal Confidentiality of Alcohol and Drug Abuse Patient Records regulations: The Federal rules restrict any use of the information to criminally investigate or prosecute any alcohol or drug abuse patient.[facility] CampusIn the event this information is protected by the Federal Confidentiality of Alcohol and Drug Abuse Patient Records regulations: The Federal rules restrict any use of the information to criminally investigate or prosecute any alcohol or drug abuse patient.[facility] CampusIn the event this information is protected by the Federal Confidentiality of Alcohol and Drug Abuse Patient Records regulations: The Federal rules restrict any use of the information to criminally investigate or prosecute any alcohol or drug abuse patient.[facility] CampusIn the event this information is protected by the Federal Confidentiality of Alcohol and Drug Abuse Patient Records regulations: The Federal rules restrict any use of the information to criminally investigate or prosecute any alcohol or drug abuse patient.[facility] CampusIn the event this information is protected by the Federal Confidentiality of Alcohol and Drug Abuse Patient Records regulations: The Federal rules restrict any use of the information to criminally investigate or prosecute any alcohol or drug abuse patient.[facility] CampusIn the event this information is protected by the Federal Confidentiality of Alcohol and Drug Abuse Patient Records regulations: The Federal rules restrict any use of the information to criminally investigate or prosecute any alcohol or drug abuse patient.[facility] CampusIn the event this information is protected by the Federal Confidentiality of Alcohol and Drug Abuse Patient Records regulations: The Federal rules restrict any use of the information to criminally investigate or prosecute any alcohol or drug abuse patient.[facility] CampusIn the event this information is protected by the Federal Confidentiality of Alcohol and Drug Abuse Patient Records regulations: The Federal rules restrict any use of the information to criminally investigate or prosecute any alcohol or drug abuse patient.[facility] CampusIn the event this information is protected by the Federal Confidentiality of Alcohol and Drug Abuse Patient Records regulations: The Federal rules restrict any use of the information to criminally investigate or prosecute any alcohol or drug abuse patient.[facility] CampusIn the event this information is protected by the Federal Confidentiality of Alcohol and Drug Abuse Patient Records regulations: The Federal rules restrict any use of the information to criminally investigate or prosecute any alcohol or drug abuse patient.[facility] CampusIn the event this information is protected by the Federal Confidentiality of Alcohol and Drug Abuse Patient Records regulations: The Federal rules restrict any use of the information to criminally investigate or prosecute any alcohol or drug abuse patient.[facility] CampusIn the event this information is protected by the Federal Confidentiality of Alcohol and Drug Abuse Patient Records regulations: The Federal rules restrict any use of the information to criminally investigate or prosecute any alcohol or drug abuse patient.[facility] CampusIn the event this information is protected by the Federal Confidentiality of Alcohol and Drug Abuse Patient Records regulations: The Federal rules restrict any use of the information to criminally investigate or prosecute any alcohol or drug abuse patient.[facility] CampusIn the event this information is protected by the Federal Confidentiality of Alcohol and Drug Abuse Patient Records regulations: The Federal rules restrict any use of the information to criminally investigate or prosecute any alcohol or drug abuse patient.[facility] CampusIn the event this information is protected by the Federal Confidentiality of Alcohol and Drug Abuse Patient Records regulations: The Federal rules restrict any use of the information to criminally investigate or prosecute any alcohol or drug abuse patient.[facility] CampusIn the event this information is protected by the Federal Confidentiality of Alcohol and Drug Abuse Patient Records regulations: The Federal rules restrict any use of the information to criminally investigate or prosecute any alcohol or drug abuse patient.[facility] CampusIn the event this information is protected by the Federal Confidentiality of Alcohol and Drug Abuse Patient Records regulations: The Federal rules restrict any use of the information to criminally investigate or prosecute any alcohol or drug abuse patient.[facility] CampusIn the event this information is protected by the Federal Confidentiality of Alcohol and Drug Abuse Patient Records regulations: The Federal rules restrict any use of the information to criminally investigate or prosecute any alcohol or drug abuse patient.[facility] CampusIn the event this information is protected by the Federal Confidentiality of Alcohol and Drug Abuse Patient Records regulations: The Federal rules restrict any use of the information to criminally investigate or prosecute any alcohol or drug abuse patient.[facility] CampusIn the event this information is protected by the Federal Confidentiality of Alcohol and Drug Abuse Patient Records regulations: The Federal rules restrict any use of the information to criminally investigate or prosecute any alcohol or drug abuse patient.[facility] CampusIn the event this information is protected by the Federal Confidentiality of Alcohol and Drug Abuse Patient Records regulations: The Federal rules restrict any use of the information to criminally investigate or prosecute any alcohol or drug abuse patient.[facility] CampusIn the event this information is protected by the Federal Confidentiality of Alcohol and Drug Abuse Patient Records regulations: The Federal rules restrict any use of the information to criminally investigate or prosecute any alcohol or drug abuse patient.[facility] CampusIn the event this information is protected by the Federal Confidentiality of Alcohol and Drug Abuse Patient Records regulations: The Federal rules restrict any use of the information to criminally investigate or prosecute any alcohol or drug abuse patient.[facility] CampusIn the event this information is protected by the Federal Confidentiality of Alcohol and Drug Abuse Patient Records regulations: The Federal rules restrict any use of the information to criminally investigate or prosecute any alcohol or drug abuse patient.[facility] CampusIn the event this information is protected by the Federal Confidentiality of Alcohol and Drug Abuse Patient Records regulations: The Federal rules restrict any use of the information to criminally investigate or prosecute any alcohol or drug abuse patient.[facility] CampusIn the event this information is protected by the Federal Confidentiality of Alcohol and Drug Abuse Patient Records regulations: The Federal rules restrict any use of the information to criminally investigate or prosecute any alcohol or drug abuse patient.[facility] CampusIn the event this information is protected by the Federal Confidentiality of Alcohol and Drug Abuse Patient Records regulations: The Federal rules restrict any use of the information to criminally investigate or prosecute any alcohol or drug abuse patient.[facility] CampusIn the event this information is protected by the Federal Confidentiality of Alcohol and Drug Abuse Patient Records regulations: The Federal rules restrict any use of the information to criminally investigate or prosecute any alcohol or drug abuse patient.[facility] CampusIn the event this information is protected by the Federal Confidentiality of Alcohol and Drug Abuse Patient Records regulations: The Federal rules restrict any use of the information to criminally investigate or prosecute any alcohol or drug abuse patient.[facility] CampusIn the event this information is protected by the Federal Confidentiality of Alcohol and Drug Abuse Patient Records regulations: The Federal rules restrict any use of the information to criminally investigate or prosecute any alcohol or drug abuse patient.[facility] INFORMATION SOURCE (unrecogn ized section and content) DATE CREATED AUTHOR 07/03/2022 [facility] DATE CREATED AUTHOR AUTHOR'S ORGANIZ ATION 03/13/2023 [facility] DATE CREATED AUTHOR AUTHOR'S ORGANIZ ATION 12/10/2023 [facility] DATE CREATED AUTHOR AUTHOR'S ORGANIZ ATION 12/29/2023 [facility] Care Teams (unrecognized sec tion and content) Hospitalist Physician Relationship Specialty Start Date End Date Brenda Landon MD [address] [id number] PCP - General Family Medicine 01/19/23 Hospitalist Physician Relationship Specialty Start Date End Date Brenda Landon MD [address] [place] [address] PCP - General Family Medicine 01/19/23 Hospitalist Physician Relationship Specialty Start Date End Date Brenda Landon MD [address] [place] [address] PCP - General Family Medicine 01/19/23 Hospitalist Physician Relationship Specialty Start Date End Date Brenda Landon MD [address] [place] [address] PCP - General Family Medicine 01/19/23 Hospitalist Physician Relationship Specialty Start Date End Date Brenda Landon MD [address] [place] [address] PCP - General Family Medicine 01/19/23 Hospitalist Physician Relationship Specialty Start Date End Date Brenda Landon MD [address] [place] [address] PCP - General Family Medicine 01/19/23 Hospitalist Physician Relationship Specialty Start Date End Date Brenda Landon MD [address] [place] [address] PCP - General Family Medicine 01/19/23 Hospitalist Physician Relationship Specialty Start Date End Date Brenda Landon MD PCP - General Family Medicine 01/19/23 Hospitalist Physician Relationship Specialty Start Date End Date Brenda Landon MD PCP - General Family Medicine 01/19/23 Hospitalist Physician Relationship Specialty Start Date End Date Brenda Landon MD PCP - General Family Medicine 01/19/23 Hospitalist Physician Relationship Specialty Start Date End Date Brenda Landon MD PCP - General Family Medicine 01/19/23 Hospitalist Physician Relationship Specialty Start Date End Date Brenda Landon MD PCP - General Family Medicine 01/19/23 Hospitalist Physician Relationship Specialty Start Date End Date Brenda Landon MD PCP - General Family Medicine 01/19/23 Hospitalist Physician Relationship Specialty Start Date End Date Brenda Landon MD PCP - General Family Medicine 01/19/23 Hospitalist Physician Relationship Specialty Start Date End Date Brenda Landon MD PCP - General Family Medicine 01/19/23 Hospitalist Physician Relationship Specialty Start Date End Date Brenda Landon MD PCP - General Family Medicine 01/19/23 Hospitalist Physician Relationship Specialty Start Date End Date Brenda Landon MD PCP - General Family Medicine 01/19/23 Hospitalist Physician Relationship Specialty Start Date End Date Brenda Landon MD PCP - General Family Medicine 01/19/23 Hospitalist Physician Relationship Specialty Start Date End Date Brenda Landon MD PCP - General Family Medicine 01/19/23 Hospitalist Physician Relationship Specialty Start Date End Date Brenda Landon MD PCP - General Family Medicine 01/19/23 Hospitalist Physician Relationship Specialty Start Date End Date Brenda Landon MD PCP - General Family Medicine 01/19/23 Hospitalist Physician Relationship Specialty Start Date End Date Brenda Landon MD PCP - General Family Medicine 01/19/23 Hospitalist Physician Relationship Specialty Start Date End Date Brenda Landon MD PCP - General Family Medicine 01/19/23 Hospitalist Physician Relationship Specialty Start Date End Date Brenda Landon MD PCP - General Family Medicine 01/19/23 Hospitalist Physician Relationship Specialty Start Date End Date Brenda Landon MD PCP - General Family Medicine 01/19/23 Hospitalist Physician Relationship Specialty Start Date End Date Brenda Landon MD PCP - General Family Medicine 01/19/23 Hospitalist Physician Relationship Specialty Start Date End Date Brenda Landon MD PCP - General Family Medicine 01/19/23 Hospitalist Physician Relationship Specialty Start Date End Date Brenda Landon MD PCP - General Family Medicine 01/19/23 Hospitalist Physician Relationship Specialty Start Date End Date Brenda Landon MD PCP - General Family Medicine 01/19/23 Hospitalist Physician Relationship Specialty Start Date End Date Brenda Landon MD PCP - General Family Medicine 01/19/23 Hospitalist Physician Relationship Specialty Start Date End Date Brenda Landon MD PCP - General Family Medicine 01/19/23 Hospitalist Physician Relationship Specialty Start Date End Date Brenda Landon MD PCP - General Family Medicine 01/19/23 Hospitalist Physician Relationship Specialty Start Date End Date Brenda Landon MD PCP - General Family Medicine 01/19/23 Hospitalist Physician Relationship Specialty Start Date End Date Brenda Landon MD PCP - General Family Medicine 01/19/23 Hospitalist Physician Relationship Specialty Start Date End Date Brenda [...] BE BASED ON THE PRIMARY CLINICAL RECORDS. the grafter [facility]. provides no warranty or guarantee of the accuracy or completeness of information in this document.
[2023-12-31 10:41] LABS: Basophils Percent Auto 0.3 % (0.2-2.0); Eosinophils Absolute Auto 0.3 10^3/uL (0.0-0.7); Eosinophils Percent Auto 3.3 % (0.9-7.0); Hematocrit 27.2 % (36.0-48.0); Hemoglobin 8.7 g/dL (12.0-16.0); Immature Granulocytes Abs Auto 0.05 10^3/uL (0.00-0.03); Immature Granulocytes Pct Auto 0.5 % (0.0-0.5); Lymphocytes Absolute Auto 1.1 10^3/uL (1.2-3.8); Lymphocytes Percent Auto 11.8 % (20.5-60.0); Mean Corpuscular Hemoglobin 31.5 pg (26.7-34.0); Mean Corpuscular Volume 98.6 fL (81.0-99.0); Mean Platelet Volume 8.6 fL (9.5-13.5); Monocytes Absolute Auto 1.1 10^3/uL (0.3-0.8); Neutrophils Absolute Auto 6.6 10^3/uL (1.4-6.5); Neutrophils Percent Auto 72.1 % (43.0-75.0); Platelet Count 462 10^3/uL (150-450); Red Blood Count 2.76 10^6/uL (4.20-5.40); Red Cell Distribution Width 13.8 % (11.0-15.0); White Blood Count 9.2 10^3/uL (4.0-11.0)
== END 2023-12-31 10:24 | disposition home or self-care (01) ==
LOC: LAB 10:25
PROVIDERS: PCP Family Medicine; Visit Provider Family Medicine
DX: N80.03 Adenomyosis of the uterus (principal)
CPT/HCPCS: 36415; 85025

== ENCOUNTER 2024-03-05 09:34 | Outpatient (OUT) | payer OTHER, SELFPAY ==
[2024-03-05 10:00] LABS: Basophils Percent Auto 0.9 % (0.2-2.0); Eosinophils Absolute Auto 0.1 10^3/uL (0.0-0.7); Eosinophils Percent Auto 3.2 % (0.9-7.0); Hematocrit 42.4 % (36.0-48.0); Hemoglobin 13.4 g/dL (12.0-16.0); Immature Granulocytes Abs Auto 0.01 10^3/uL (0.00-0.03); Immature Granulocytes Pct Auto 0.2 % (0.0-0.5); Lymphocytes Absolute Auto 1.3 10^3/uL (1.2-3.8); Lymphocytes Percent Auto 29.6 % (20.5-60.0); Mean Corpuscular HGB Conc 31.6 g/dL (29.9-35.2); Mean Corpuscular Hemoglobin 29.7 pg (26.7-34.0); Mean Platelet Volume 9.4 fL (9.5-13.5); Monocytes Absolute Auto 0.4 10^3/uL (0.3-0.8); Monocytes Percent Auto 9.1 % (1.7-12.0); Neutrophils Absolute Auto 2.5 10^3/uL (1.4-6.5); Platelet Count 237 10^3/uL (150-450); Red Blood Count 4.51 10^6/uL (4.20-5.40); Red Cell Distribution Width 14.3 % (11.0-15.0); White Blood Count 4.4 10^3/uL (4.0-11.0)
[2024-03-05 10:17] LABS: Estimated Average Glucose 91 mg/dL; Glycohemoglobin A1C 4.8 % (4.5-6.2)
[2024-03-05 10:35] LABS: Alanine Aminotransferase 26 U/L (14-59); Albumin Globulin Ratio 1.1; Albumin Level 3.6 g/dL (3.4-5.0); Alkaline Phosphatase 57 U/L (46-116); Anion Gap 12.9; Aspartate Amino Transferase 16 U/L (15-37); BUN Creatinine Ratio 16.9; Bilirubin Total 0.3 mg/dL (0.2-1.0); Calcium 8.7 mg/dL (8.5-10.1); Carbon Dioxide 28.6 mmol/L (21.0-32.0); Chloride 105 mmol/L (98-107); Chol HDL Ratio 2.3; Cholesterol 170 mg/dL (<=200); Estimated GFR (African America >60 (>=60); Estimated GFR (Non-African Ame >60 (>=60); Free T3 2.88 pg/mL (2.18-3.98); Globulin 3.4 g/dL; Glucose 95 mg/dL (74-106); HDL Cholesterol 74 mg/dL (40-60); Potassium 4.5 mmol/L (3.5-5.1); Sodium 142 mmol/L (136-145); Thyroid Stimulating Hormone 0.969 uIU/mL (0.358-3.740); Triglycerides 72 mg/dL (<=150); VLDL CHOLESTEROL 14.4 mg/dL
[2024-03-05 10:42] LABS: INR 0.96; Partial Thromboplastin Time 27.8 sec (22.3-36.2); Prothrombin Time 10.2 sec (9.0-11.6)
[2024-03-06 10:08] LABS: Insulin 4.9 uIU/mL (2.6-24.9)
== END 2024-03-05 09:35 | disposition home or self-care (01) ==
LOC: LAB 09:35
PROVIDERS: PCP Family Medicine; Visit Provider Family Medicine
DX: R31.9 Hematuria, unspecified (principal); N20.0 Calculus of kidney; R10.9 Unspecified abdominal pain
CPT/HCPCS: 36415; 80053; 80061; 82306; 83036; 83525; 83540; 84436; 84443; 84481; 85025; 85610; 85730

== ENCOUNTER 2024-03-21 17:07 | Outpatient (OUT) | payer OTHER, SELFPAY ==
--- OUTSIDE RECORDS SUMMARY | 2024-03-21 17:18 | XMS_ITS | CCD ---
Author Organization [facility] Care Team Providers Care Suggestion Clerk Name Role Phone Brenda Landon Unavailable Ildefonso Leblanc Unavailable Unavailable Primary Care Provider Unavailabl e Unavailable Primary Care Provider Unavailabl e Unavailable Primary Care Provider Unavailjeana e Brenda Landon MD Primary Care Provider [phone] Brenda Landon MD Primary Care Provider [phone] DIPESH ., DR GUTIERREZ Admitting Unavailable HOY ., DR GUTIERREZ Attending Unavailable HOY ., DR GUTIERREZ Primary Care Unavailable HOY ., DR GUTIERREZ Consulting Unavailable Susan De La Fuente Consulting Unavailable URIAH LANDERS, MARK Referring Unavailable HOY, BRENDA M Primary Care Unavailable HOY, BRENDA M Primary Care Unavailable LUZ SIMS Attending Unavailable HOY, BRENDA M Primary Care Unavailable SAATI, AMMAR Attending Unavailable HOY, BRENDA M Primary Care Unavailable HILARY SHAFFER Referring Unavailable GAUTAM HILL Attending Unavailable HOY, BRENDA M Primary Care Unavailable SAATI, AMMAR Referring Unavailable HOY, BRENDA M Primary Care Unavailable PEDRO LUIS BAILEY Attending Unavailable URIAH LANDERS, MARK Referring Unavailable HOY, BRENDA M Primary Care Unavailable URIAH LANDERS, MARK Referring Unavailable HOY, BRENDA M Primary Care Unavailable HOY, BRENDA M Primary Care Unavailable LAMONT BROWN Referring Unavailable EUNICE ARMSTRONG Attending Unavailable HILARY SHAFFER Referring Unavailable HOY, BRENDA M Primary Care Unavailable SHELBY GARCIA Attending Unavailable URIAH LANDERS, MARK Attending Unavailable HOY, BRENDA M Primary Care Unavailable URIAH LANDERS, MARK Attending Unavailable URIAH LANDERS, MARK Referring Unavailable HOY, BRENDA M Primary Care Unavailable URIAH LANDERS, MARK Referring Unavailable HOY, BRENDA M Primary Care Unavailable PEDRO LUIS ABILEY Attending Unavailable RIBAKOW, PEDRO Attending Unavailable HOY, BRENDA M Primary Care Unavailable LAMONT BROWN Attending Unavailable HOY, BRENDA M Primary Care Unavailable HOY, BRENDA M Primary Care Unavailable URIAH PEYMAN, MARK Referring Unavailable MAYRA IBARRA Attending Unavailable HOY, BRENDA M Primary Care Unavailable URIAH PEYMAN, MARK Attending Unavailable URIAH PEYMAN, MARK Referring Unavailable HOY, BRENDA M Primary Care Unavailable HOY, BRENDA M Primary Care Unavailable HOY, BRENDA M Referring Unavailable HOY, BRENDA M Primary Care Unavailable TORSTEN, HILARY M Attending Unavailable TORSTEN, HILARY M Referring Unavailable HOY, BRENDA M Primary Care Unavailable HOY, BRENDA M Primary Care Unavailable RIBAKOW, PEDRO Referring Unavailable URIAH LANDERS, MARK Referring Unavailable HOY, BRENDA M Primary Care Unavailable HOY, BRENDA M Primary Care Unavailable URIAH PEYMAN, MARK Attending Unavailable HOY, BRENDA M Primary Care Unavailable HOY, BRENDA M Primary Care Unavailable AL-ASHKAR, FEYROUZ Referring Unavailable TORSTEN, HILARY M Referring Unavailable HOY, BRENDA M Primary Care Unavailable TORSTEN, HILARY M Referring Unavailable HOY, BRENDA M Primary Care Unavailable LUZ SIMS Attending Unavailable HOY, BRENDA M Primary Care Unavailable AL-ASHKAR, FEYROUZ Referring Unavailable PARISH PAGE Attending Unavailable HOY, BRENDA M Primary Care Unavailable AL-ASHKAR, FEYROUZ Referring Unavailable TORSTEN, HILARY M Attending Unavailable HOY, BRENDA M Primary Care Unavailable URIAH PEYMAN, MARK Attending Unavailable URIAH LANDERS, MARK Admitting Unavailable HOY, BRENDA M Primary Care Unavailable TORSTEN, HILARY M Admitting Unavailable TORSTEN, HILARY M Attending Unavailable HOY, BRENDA M Primary Care Unavailable HOY, BRENDA M Primary Care Unavailable RIBAKOW, PEDRO Attending Unavailable LEVI, LUZ M Referring Unavailable HOY, BRENDA M Primary Care Unavailable LEYLA MAYEN Attending Unavailable Allergies Allergy Classification Reported Allergen(s) Allergy Type Date of Onset Reaction(s) Facility (20 sources) Morphine; Translations: [MORPHINE] Drug Allergy 7 Other: See Comments [facility] (19 sources) traMADol Drug Allergy 8 Other: See Comments [facility] (1 source) Morphine Drug Allergy 7 [facility] Medications Current Medications Medication Drug Class(es) Dates Sig (Normalized) Sig (Original) 0.4 ml adalimumab 100 mg/ml auto-injector (20 sources) Tumor Necrosis Factor Judy Start: 05-12-2023 End: 11-22-2024 inject 40 mg by subcutaneous injection every other week adalimumab 40 mg/0.4 mL subcutaneous pen kit (HUMIRA (CF)) Indications: Crohn's disease of small and large intestines with complication (HCC) Inject 40 mg (1 pen) subcutaneously every 2 weeks. 6 Each 3 11/23/2023 11/22/2024 Active Start: 05-12-2023 End: 09-29-2023 adalimumab (HUMIRA,CF, [...] with complication, unspecified gastrointestinal tract location , intermediate frame tender use of drug 0.8 mL by Subcutaneous [...] on day29 and every 2 weeks thereafter. adalimumab-adaz (HYRIMOZ,CF, PEN) 40 mg/0.4 mL pen (1 source) Start: 2023 End: 2024 inject 0.4 mL by subcutaneous injection every other week adalimumab-adaz (HYRIMOZ,CF, PEN) 40 mg/0.4 mL pen Indications: Crohn's disease of small and large intestines with complication (HCC) Inject 0.4 mL subcutaneously every 2 weeks. 2.4 mL 3 03/09/2024 03/09/2025 Active Comment on above: Inject 0.4 mL subcut aneously every 2 weeks. bisacodyl 5 mg delayed release oral tablet (2 sources) Stimulant Laxative Start: 2022 End: 2022 Bisacodyl (DULCOLAX) 5 mg tab Use as directed for Miralax / Gatorade Bowel Prep Kit 4 tablet 0 09/20/2023 09/21/2023 Active Comment on above: Use as directed for Miralax / Gatorade Bowel Prep Kit dicyclomine hydrochloride 10 mg oral capsule (1 source) Anticholinergic dicyclomine 10 M G Cap Indications: Chronic bilateral low back pain without sciatica , Bilateral thoracic back pain, unspecified chronicity , Crohn's disease with complication, unspecified gastrointestinal tract location , custodial use of drug take 10 mg by mouth 4 times daily.. Active folic acid 1 mg oral tablet (1 source) Start: 2016 folic acid 1 MG Tab Indications: Chronic bilateral low back pain without sciatica , Bilateral thoracic back pain, unspecified chronicity , Crohn's disease with complication, unspecified gastrointestinal tract location , intermediate frame tender use of drug take 1 tablet by mouth daily.. 90 tablet 3 05/25/2017 Active Gatorade Sports Drink (2 sources) Start: 2022 End: 2022 Gatorade Sports Drink Use as directed for Miralax / Gatorade Bowel Prep Kit 0 09/20/2023 09/21/2023 Active Comment on above: Use as directed for Miralax / Gatorade Bowel Prep Kit ibuprofen 600 mg oral tablet (4 sources) Nonsteroidal Anti-inflammatory Drug Start: 2023 End: 2023 take 1 tablet by mouth every six hours as needed ibuprofen (MOTRIN) 600 mg tablet Take 1 tablet by mouth every 6 hours as needed for pain. 60 tablet 0 12/22/2023 01/21/2024 Active Comment on above: Take 1 tablet by marilyn th every 6 hours as needed for pain. mesalamine 1200 mg delayed release oral tablet (1 source) Aminosalicylate take 2 tablets by mouth once daily Mesalamine (LIALDA) 1.[address] take by mouth.. 2 tabs qd Active 24 hr nicotine 0.292 mg/hr transdermal system (20 sources) Cholinergic Nicotinic Agonist Start: 2022 End: 2023 nicotine (NICODERM) 7 mg/24 hr Indications: Cigarette nicotine dependence without complication Apply 1 Patch as directed every 24 hours. 28 Patch 5 10/18/2023 04/15/2024 Active Start: 10-18-2023 take 1 dose by mouth every two hours as needed nicotine polacrilex (NICORETTE) 4 mg gum Indications: Cigarette nicotine dependence without complication Take 1 Each by mouth every 2 hours as needed. 100 Each 5 10/18/2023 Active Start: 10-18-2023 apply 1 dose transde rmal route every twenty-four hours nicotine (NICODERM) 14 mg/24 hr Indications: Cigarette nicotine dependence without complication Apply 1 Patch as directed every 24 hours. 28 Patch 0 10/18/2023 Active Start: 01-24-2023 End: 05-19-2023 nicotine [...] by mouth daily.. Active polyethylene glycol 3350 64396 mg powder for oral solution (2 sources) [...] Sig (Original) acetaminophen 500 mg oral tablet (20 sources) Start: 12-22-2023 take 2 tablets by mouth every eight hours acetaminophen (TYLENOL EXTRA STRENGTH) 500 mg tablet Take 2 tablets by mouth every 8 hours. 60 tablet 0 12/22/2023 Active Start: 02-17-2023 End: 05-19-2023 take 2 tablets by mouth every eight hours as needed acetaminophen (TYLENOL) 500 mg tablet Take 2 tablets by mouth every 8 hours as needed for pain. 0 02/17/2023 05/19/2023 Discontinued Comment on above: Take 2 tablets by mo ut every 8 hours as needed for pain. Take 2 tablets by mo uth every 8 hours. 12 hr buPROPion hydrochloride 150 mg extended release oral tablet (9 sources) Aminoketone Start: End: take 1 tablet by mouth twice daily buPROPion SR (WELLBUTRIN SR) 150 mg 12 hr tablet Indications: Cigarette nicotine dependence without complication TAKE 1 TABLET BY MOUTH TWICE A DAY 180 tablet 1 01/04/2024 Active Start: 11-17-2023 End: 11-14-2023 take 1 tablet by mouth once daily [...] 1 TABLET BY MARILYN TH EVERY DAY TAKE 1 TABLET BY MARILYN TH TWICE A DAY Take 1 tablet by marilyn th two times a day. cholecalciferol 0.025 mg oral tablet (20 sources) Vitamin D Start: 02-29-20 End: 05-29-20 take 2 tablets by mouth once daily [...] on above: Take 1 capsule by mo [facility] one time a week. Take 2 tablets by mo [facility] once daily. ciprofloxacin 500 mg oral tablet (9 sources) Quinolone Antimicrobial End: 05-19 take 1 tablet by mouth twice daily ciprofloxacin HCl (CIPRO) 500 mg tablet Take 500 mg by mouth twice daily. 0 05/19/2023 Discontinued Comment on above: Take 500 mg by mouth twice daily. Collagen (6 sources) COLLAGEN MISC cyclobenzaprine hydrochloride 5 mg oral tablet (4 sources) Muscle Relaxant Start : 01-06 take 1 tablet by mouth at bedtime as needed cyclobenzaprine (FLEXERIL) 5 mg tablet Indications: Post-operative state Take 1 tablet by mouth at bedtime as needed. 30 tablet 1 01/06/2024 Active Comment on above: Take 1 tablet by [facility] at bedtime as needed. 0.8 ml enoxaparin sodium 100 mg/ml prefilled [...] on above: Take 2 tablets by mo [facility] as directed. Take 2 tablets by mouth [...] oral tablet (1 source) Nitroimidazole Antimicrobial Start: metroNIDAZOLE (FLAGYL) 500 mg tablet Indications: Preoperative [...] 5 mg oral tablet (12 sources) Start: 023 End: 023 take 1 tablet by mouth once daily norethindrone (AYGESTIN) 5 mg tablet Indications: Endometriosis , Pelvic pain in female Take 1 tablet by mouth once daily. 90 tablet 0 05/20/2023 09/29/2023 Discontinued Comment on above: Take 1 tablet by marilyn th once daily. ondansetron 4 mg disintegrating oral tablet (6 sources) Serotonin-3 Receptor Antagonist Start: take 1 tablet by mouth every eight hours as needed ondansetron orally disintegrating (ZOFRAN ODT) 4 mg disintegrating tablet Take 1 tablet by mouth every 8 hours as needed. 8 tablet 0 12/23/2023 Active Comment on above: Take 1 tablet by marilyn th every 8 hours as needed. 25/iron fum/folic/dha (-1 ORAL) (6 sources) 25/iron fum/folic/dha (-1 ORAL) Take by mouth. 0 Active Comment on above: Take by mouth. sennosides, mcc 8.6 mg oral tablet (6 sources) Start: take 1 tablet by mouth twice daily senna (SENOKOT) 8.6 mg tab Take 1 tablet by mouth two times a day. 30 tablet 0 12/22/2023 Active Comment on above: Take 1 tablet by marilyn th two times a day. simethicone 125 mg chewable tablet (5 sources) Start: End: take 1 tablet by mouth every [...] Surgical Lubricant Jelly gel (14 sources) Start: End: Surgical Lubricant Jelly gel For MRI Female [...] Date Documented Da te Episodic/Chronic Abdominal pain (8 sources) Pain in female pelvis; Translations: [Pelvic and perineal pain] Onset: 3 Episodic Administrative/social admission (2 sources) 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; Translations: [Other specified counseling] Onset: 4 Episodic Coagulation and hemorrhagic disorders (20 sources) Antiphospholipid syndrome; Translations: [Antiphospholipid syndrome] Onset: 3 09-14-2023 Chronic Endometriosis (5 sources) Endometriosis (clinical); Translations: [Endometriosis, unspecified] Onset: [...] Long-term current use of systemic steroid; Translations: [custodial (current) use of systemic steroids] Episodic Other circulatory disease (2 sources) Raynaud's [...] to other disease] Episodic Residual codes; unclassified (2 sources) Postoperative state; Translations: [Other specified postprocedural states] 01-06-2024 Episodic Residual codes; unclassified (1 source) Other specified postprocedural states; Translations: [Post-operative state] Onset: 4 Episodic Rheumatoid arthritis and related disease (20 sources) Ankylosing spondylitis; Translations: [Ankylosing spondylitis of unspecified sites in spine] Onset: 3 02-16-2023 Chronic Spondylosis; intervertebral disc disorders; other back problems (2 sources) Bilateral inflammation of sacroiliac joint; Translations: [Sacroiliitis, not elsewhere classified] Chronic Spondylosis; intervertebral disc disorders; other back problems (4 sources) Chronic low back pain; Translations: [Thoracic back pain] Onset: 6 10-11-2016 Episodic Substance-related disorders (20 sources) Cigarette smoker ; Translations: [Nicotine dependence, cigarettes, uncomplicated] Onset: 3 Chronic Unclassified (1 source) 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; Translations: [custodial use of drug] Onset: 7 05-25-2017 Unclassified (1 source) Adenomyosis; Translations: [Adenomyosis] Onset: 4 Unclassified (1 source) Patient Education Onset: 3 Past or Other Problems Problem Classification Problem Date Documented Da te Episodic/Chronic Blindness and vision defects (3 sources) Eye / vision finding; Translations: [Unspecified visual disturbance] Onset: 06-22-2023 Episodic Other aftercare (19 sources) Long-term current use of anticoagulant; Translations: [custodial (current) use of anticoagulants] Onset: 09-14-2023 09-14-2023 Episodic Other female genital disorders (1 source) Recurrent loss; 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] Onset: 02-11-2023 Episodic Other gastrointestinal disorders (1 source) Disease of intestine, unspecified; 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] Onset: 02-11-2023 Episodic Other nervous system disorders (20 sources) [...] Test Name Value Interpretation Reference Range Facility CNOVon 02-01-2024 CNOV Normal [facility] CNPNon 12-28-2023 CNPN Normal [facility] Basic metabolic 2000 panelon 12-23-2023 Anion gap [Moles/Vol] 11 mmol/L Normal 9-18 [facility] Comment on above: Order Comment: Speci men Type: BLOOD SPECIMENOrdering Facility: [facility] Address: [address] [place] [address] Performed By: #### 2 4321-2 ####[facility] [id number] [place] [address] [place] Calcium [Mass/Vol] 8.5 mg/dL Normal 8.5-10.2 [facility] Comment on above: Order Comment: Speci men Type: BLOOD SPECIMENOrdering Facility: [facility] Address: [address] [place] [address] Performed By: #### 2 4321-2 ####[facility] [id number] [place] [address] [place] Chloride [Moles/Vol] 103 mmol/L Normal 97-105 [facility] Comment on above: Order Comment: Speci men Type: BLOOD SPECIMENOrdering Facility: [facility] Address: [address] [place] [address] Performed By: #### 2 4321-2 ####[facility] [id number] [place] [address] [place] CO2 [Moles/Vol] 21 mmol/L Low 22-30 [facility] Comment on above: Order Comment: Speci men Type: BLOOD SPECIMENOrdering Facility: [facility] Address: [address] [place] [address] Performed By: #### 2 4321-2 ####[facility] [id number] [place] [address] [place] Creatinine [Mass/Vol] 0.91 mg/dL Normal 0.58-0.96 [facility] Comment on above: Order Comment: Speci men Type: BLOOD SPECIMENOrdering Facility: [facility] Address: [address] [place] [address] Performed By: #### 2 4321-2 ####[facility] [id number] [place] [address] [place] Creatinine and Glomerular filtration rate.predicted panel (S/P/Bld) 82 mL/min/1.73m??? Normal >=60 [facility] Comment on above: Order Comment: Speci men Type: BLOOD SPECIMENOrdering Facility: [facility] Address: [address] [place] [address] Result Comment: Abbey mated Glomerular Filtration Rate [...] actual GFR. Performed By: #### 2 4321-2 ####[facility] [id number] [place] [address] [place] Glucose [Mass/Vol] 158 mg/dL High 74-99 [facility] Comment on above: Order Comment: Uday covington Type: BLOOD SPECIMENOrdering Facility: [facility] Address: [address] [place] [address] Result Comment: The [place] [employer] (ADA) provides guidance for cutoff [...] Standards of Medical Care in Diabetes 2016, [place] [employer]. Diabetes Care. 2016.39(Suppl 1). Performed By: #### 2 4321-2 ####[facility] [id number] [place] [address] [place] Potassium [Moles/Vol] 4.8 mmol/L Normal 3.7-5.1 [facility] Comment on above: Order Comment: Uday covington Type: BLOOD SPECIMENOrdering Facility: [facility] Address: [address] [place] [address] Performed By: #### 2 4321-2 ####[facility] [id number] [place] [address] [place] Sodium [Moles/Vol] 135 mmol/L Low 136-144 [facility] Comment on above: Order Comment: Speci men Type: BLOOD SPECIMENOrdering Facility: [facility] Address: [address] [place] [address] Performed By: #### 2 4321-2 ####[facility] [id number] [place] [address] [place] Urea nitrogen [Mass/Vol] 12 mg/dL Normal 7-21 [facility] Comment on above: Order Comment: Speci men Type: BLOOD SPECIMENOrdering Facility: [facility] Address: [address] [place] [address] Performed By: #### 2 4321-2 ####[facility] [id number] [place] [address] [place] CBC panel Auto (Bld)on 12-23 Erythrocyte distribution width (RBC) [Ratio] 12.7 % Normal 11.5-15.0 [facility] Comment on above: Order Comment: Speci men Type: BLOOD SPECIMENOrdering Facility: [facility] Address: [address] [place] [address] Performed By: #### 5 8410-2 ####[facility] [id number] [place] [address] [place] Hematocrit (Bld) [Volume fraction] 28.3 % Low 36.0-46.0 [facility] Comment on above: Order Comment: Speci men Type: BLOOD SPECIMENOrdering Facility: [facility] Address: [address] [place] [address] Performed By: #### 5 8410-2 ####[facility] [id number] [place] [address] [place] Hemoglobin (Bld) [Mass/Vol] 9.4 g/dL Low 11.5-15.5 [facility] Comment on above: Order Comment: Speci men Type: BLOOD SPECIMENOrdering Facility: [facility] Address: [address] [place] [address] Performed By: #### 5 8410-2 ####[facility] [id number] [place] [address] [place] MCH (RBC) [Entitic mass] 31.9 pg Normal 26.0-34.0 [facility] Comment on above: Order Comment: Speci men Type: BLOOD SPECIMENOrdering Facility: [facility] Address: [address] [place] [address] Performed By: #### 5 8410-2 ####[facility] [id number] [place] [address] [place] MCHC (RBC) [Mass/Vol] 33.2 g/dL Normal 30.5-36.0 [facility] Comment on above: Order Comment: Speci men Type: BLOOD SPECIMENOrdering Facility: [facility] Address: [address] [place] [address] Performed By: #### 5 8410-2 ####[facility] [id number] [place] [address] [place] MCV (RBC) [Entitic vol] 95.9 fL Normal 80.0-100.0 [facility] Comment on above: Order Comment: Speci men Type: BLOOD SPECIMENOrdering Facility: [facility] Address: [address] [place] [address] Performed By: #### 5 8410-2 ####[facility] [id number] [place] [address] [place] Nucleated RBC (Bld) [#/Vol] 10*3/uL Normal <0.01 [facility] Comment on above: Order Comment: Speci men Type: BLOOD SPECIMENOrdering Facility: [facility] Address: [address] [place] [address] Performed By: #### 5 8410-2 ####[facility] [id number] [place] [address] [place] Platelet mean volume (Bld) [Entitic vol] 9.7 fL Normal 9.0-12.7 [facility] Comment on above: Order Comment: Speci men Type: BLOOD SPECIMENOrdering Facility: [facility] Address: [address] [place] [address] Performed By: #### 5 8410-2 ####[facility] [id number] [place] [address] [place] Platelets (Bld) [#/Vol] 259 10*3/uL Normal 150-400 [facility] Comment on above: Order Comment: Speci men Type: BLOOD SPECIMENOrdering Facility: [facility] Address: [address] [place] [address] Performed By: #### 5 8410-2 ####[facility] [id number] [place] [address] [place] RBC (Bld) [#/Vol] 2.95 10*6/uL Low 3.90-5.20 [facility] Comment on above: Order Comment: Speci men Type: BLOOD SPECIMENOrdering Facility: [facility] Address: [address] [place] [address] Performed By: #### 5 8410-2 ####[facility] [id number] [place] [address] [place] WBC (Bld) [#/Vol] 13.91 10*3/uL High 3.70-11.00 [facility] Comment on above: Order Comment: Speci men Type: BLOOD SPECIMENOrdering Facility: [facility] Address: [address] [place] [address] Performed By: #### 5 8410-2 ####[facility] [id number] [place] [address] [place] CNPNon 12-23-2023 CNPN Normal [facility] NURSING PROGon 12-23-2023 NURSING PROG Normal [facility] NURSING PROG Normal [facility] NURSING PROG Normal [facility] ANES POSTPROC EVALon 024 ANES POSTPROC EVAL Normal [facility] ANES PRE-OPon 12-22-2023 ANES PRE-OP Normal [facility] CBC panel Auto (Bld)on 12-22 Erythrocyte distribution width (RBC) [Ratio] 12.7 % Normal 11.5-15.0 [facility] Comment on above: Order Comment: Speci men Type: BLOOD SPECIMENOrdering Facility: [facility] Address: [address] [place] [address] Performed By: #### 5 8410-2 ####[facility] [id number] [place] [address] [place] Hematocrit (Bld) [Volume fraction] 28.8 % Low 36.0-46.0 [facility] Comment on above: Order Comment: Speci men Type: BLOOD SPECIMENOrdering Facility: [facility] Address: [address] [place] [address] Performed By: #### 5 8410-2 ####[facility] [id number] [place] [address] [place] Hemoglobin (Bld) [Mass/Vol] 9.6 g/dL Low 11.5-15.5 [facility] Comment on above: Order Comment: Speci men Type: BLOOD SPECIMENOrdering Facility: [facility] Address: [address] [place] [address] Performed By: #### 5 8410-2 ####[facility] [id number] [place] [address] [place] MCH (RBC) [Entitic mass] 31.6 pg Normal 26.0-34.0 [facility] Comment on above: Order Comment: Speci men Type: BLOOD SPECIMENOrdering Facility: [facility] Address: [address] [place] [address] Performed By: #### 5 8410-2 ####[facility] [id number] [place] [address] [place] MCHC (RBC) [Mass/Vol] 33.3 g/dL Normal 30.5-36.0 [facility] Comment on above: Order Comment: Speci men Type: BLOOD SPECIMENOrdering Facility: [facility] Address: [address] [place] [address] Performed By: #### 5 8410-2 ####[facility] [id number] [place] [address] [place] MCV (RBC) [Entitic vol] 94.7 fL Normal 80.0-100.0 [facility] Comment on above: Order Comment: Speci men Type: BLOOD SPECIMENOrdering Facility: [facility] Address: [address] [place] [address] Performed By: #### 5 8410-2 ####[facility] [id number] [place] [address] [place] Nucleated RBC (Bld) [#/Vol] 10*3/uL Normal <0.01 [facility] Comment on above: Order Comment: Speci men Type: BLOOD SPECIMENOrdering Facility: [facility] Address: [address] [place] [address] Performed By: #### 5 8410-2 ####[facility] [id number] [place] [address] [place] Platelet mean volume (Bld) [Entitic vol] 9.7 fL Normal 9.0-12.7 [facility] Comment on above: Order Comment: Speci men Type: BLOOD SPECIMENOrdering Facility: [facility] Address: [address] [place] [address] Performed By: #### 5 8410-2 ####[facility] [id number] [place] [address] [place] Platelets (Bld) [#/Vol] 235 10*3/uL Normal 150-400 [facility] Comment on above: Order Comment: Speci men Type: BLOOD SPECIMENOrdering Facility: [facility] Address: [address] [place] [address] Performed By: #### 5 8410-2 ####[facility] [id number] [place] [address] [place] RBC (Bld) [#/Vol] 3.04 10*6/uL Low 3.90-5.20 [facility] Comment on above: Order Comment: Speci men Type: BLOOD SPECIMENOrdering Facility: [facility] Address: [address] [place] [address] Performed By: #### 5 8410-2 ####[facility] [id number] [place] [address] [place] WBC (Bld) [#/Vol] 10.70 10*3/uL Normal 3.70-11.00 [facility] Comment on above: Order Comment: Speci men Type: BLOOD SPECIMENOrdering Facility: [facility] Address: [address] [place] [address] Performed By: #### 5 8410-2 ####[facility] [id number] [place] [address] [place] NURSING PROGon 12-22-2023 NURSING PROG Normal [facility] NURSING PROG Normal [facility] OPERATIVE NOon 12-22-2023 OPERATIVE NO Normal [facility] SURGICAL PATHOLOGYon 024 CASE REPORT Normal [facility] Comment on above: Order Comment: Speci men Type: TISSUE SPECIMENOrdering Facility: [facility] Address: [address] [place] [address] Result Comment: Surg [facility] Pathology Report Case: [id number] Provider: Adrien Cruz MD Collected: 12/22/2023 12:47 PMOrdering Location: Admitting Received: 12/22/2023 02:19 PMPathologist: Ryan Chowdhury MDSpecimen: UTERUS, CERVIX, BILATERAL FALLOPIAN TUBES Performed By: #### S ####[facility] [id number] [address] [place] CLINICAL HISTORY Normal [facility] Comment on above: Order Comment: Speci men Type: TISSUE SPECIMENOrdering Facility: [facility] Address: [address] [place] [address] Result Comment: Pre- op diagnosis:Adenomyosis [N80.03]Dysmenorrhea [N94.6]Abnormal uterine bleeding [N93.9] Performed By: #### S ####[facility] [id number] [address] FINAL DIAGNOSIS Normal [facility] Comment on above: Order Comment: Speci men Type: TISSUE SPECIMENOrdering Facility: [facility] Address: [address] [place] [address] Result Comment: A. U terus, cervix, bilateral fallopian tubes, hysterectomy and bilateral salpingectomy- Histologically unremarkable cervix- Secretory endometrium- Adenomyosis- Leiomyomas- Serosal endometriosis- Histologically unremarkable fallopian tubes Performed By: #### S ####[facility] [id number] [address] FINAL PERFORMING LAB Normal [facility] Comment on above: Order Comment: Speci men Type: TISSUE SPECIMENOrdering Facility: [facility] Address: [address] [place] [address] Result Comment: Diag nostic interpretation performed at [facility], [address] [place] [address] CLIA# [id number] Director: Scot Poole M.D. Performed By: #### S ####[facility] [id number] [facility] [place] [address] [place] GROSS DESCRIPTION Normal [facility] Comment on above: Order Comment: Speci men Type: TISSUE SPECIMENOrdering Facility: [facility] Address: [address] [place] [address] Result Comment: A. U TERUS, CERVIX, BILATERAL [...] reveals pinpoint lumens and unremarkable cut surfaces. Compliance Aide sections are submitted as follows:A1 anterior cervix at 12:00A2 posterior cervix at 6:64Q9-I1 anterior uterine wall, full-thickness with cystic spacesA5 posterior uterine wall, full-thicknessA6 intramural nodulesA7 longer fallopian tube with entire fimbriated endA8 shorter fallopian tube with entire fimbriated endKSZ December 22, 2023 3:18 PMGross examination performed at [facility], [address] [place] [address] Performed By: #### S ####[facility] [id number] [place] [address] [place] CBC W Auto Differential pane l (Bld)on 12-09-2023 Basophils (Bld) [#/Vol] 0.04 10*3/uL Normal <0.11 [facility] Comment on above: Order Comment: Speci men Type: BLOOD SPECIMENOrdering Facility: [facility] Address: [address] [place] [address] Performed By: #### 5 7021-8 ####[facility] [id number] [place] [address] [place] Basophils/100 WBC (Bld) 0.7 % Normal [facility] Comment on above: Order Comment: Speci men Type: BLOOD SPECIMENOrdering Facility: [facility] Address: [address] [place] [address] Performed By: #### 5 7021-8 ####[facility] [id number] [place] [address] [place] Differential cell count method Nom (Bld) Auto Normal [facility] Comment on above: Order Comment: Speci men Type: BLOOD SPECIMENOrdering Facility: [facility] Address: [address] [place] [address] Performed By: #### 5 7021-8 ####[facility] [id number] [place] [address] [place] Eosinophils (Bld) [#/Vol] 0.12 10*3/uL Normal <0.46 [facility] Comment on above: Order Comment: Speci men Type: BLOOD SPECIMENOrdering Facility: [facility] Address: [address] [place] [address] Performed By: #### 5 7021-8 ####[facility] [id number] [place] [address] [place] Eosinophils/100 WBC (Bld) 2.0 % Normal [facility] Comment on above: Order Comment: Speci men Type: BLOOD SPECIMENOrdering Facility: [facility] Address: [address] [place] [address] Performed By: #### 5 7021-8 ####[facility] [id number] [place] [address] [place] Erythrocyte distribution width (RBC) [Ratio] 12.9 % Normal 11.5-15.0 [facility] Comment on above: Order Comment: Speci men Type: BLOOD SPECIMENOrdering Facility: [facility] Address: [address] [place] [address] Performed By: #### 5 7021-8 ####[facility] [id number] [place] [address] [place] Hematocrit (Bld) [Volume fraction] 42.1 % Normal 36.0-46.0 [facility] Comment on above: Order Comment: Speci men Type: BLOOD SPECIMENOrdering Facility: [facility] Address: [address] [place] [address] Performed By: #### 5 7021-8 ####[facility] [id number] [place] [address] [place] Hemoglobin (Bld) [Mass/Vol] 13.9 g/dL Normal 11.5-15.5 [facility] Comment on above: Order Comment: Speci men Type: BLOOD SPECIMENOrdering Facility: [facility] Address: [address] [place] [address] Performed By: #### 5 7021-8 ####[facility] [id number] [place] [address] [place] Immature granulocytes (Bld) [#/Vol] 10*3/uL Normal <0.10 [facility] Comment on above: Order Comment: Speci men Type: BLOOD SPECIMENOrdering Facility: [facility] Address: [address] [place] [address] Performed By: #### 5 7021-8 ####[facility] [id number] [place] [address] [place] Immature granulocytes/100 WBC (Bld) 0.2 % Normal [facility] Comment on above: Order Comment: Speci men Type: BLOOD SPECIMENOrdering Facility: [facility] Address: [address] [place] [address] Performed By: #### 5 7021-8 ####[facility] [id number] [place] [address] [place] Lymphocytes (Bld) [#/Vol] 1.42 10*3/uL Normal 1.00-4.00 [facility] Comment on above: Order Comment: Speci men Type: BLOOD SPECIMENOrdering Facility: [facility] Address: [address] [place] [address] Performed By: #### 5 7021-8 ####[facility] [id number] [place] [address] [place] Lymphocytes/100 WBC (Bld) 24.1 % Normal [facility] Comment on above: Order Comment: Speci men Type: BLOOD SPECIMENOrdering Facility: [facility] Address: [address] [place] [address] Performed By: #### 5 7021-8 ####[facility] [id number] [place] [address] [place] MCH (RBC) [Entitic mass] 31.7 pg Normal 26.0-34.0 [facility] Comment on above: Order Comment: Speci men Type: BLOOD SPECIMENOrdering Facility: [facility] Address: [address] [place] [address] Performed By: #### 5 7021-8 ####[facility] [id number] [place] [address] [place] MCHC (RBC) [Mass/Vol] 33.0 g/dL Normal 30.5-36.0 [facility] Comment on above: Order Comment: Speci men Type: BLOOD SPECIMENOrdering Facility: [facility] Address: [address] [place] [address] Performed By: #### 5 7021-8 ####[facility] [id number] [place] [address] [place] MCV (RBC) [Entitic vol] 96.1 fL Normal 80.0-100.0 [facility] Comment on above: Order Comment: Speci men Type: BLOOD SPECIMENOrdering Facility: [facility] Address: [address] [place] [address] Performed By: #### 5 7021-8 ####[facility] [id number] [place] [address] [place] Monocytes (Bld) [#/Vol] 0.62 10*3/uL Normal <0.87 [facility] Comment on above: Order Comment: Speci men Type: BLOOD SPECIMENOrdering Facility: [facility] Address: [address] [place] [address] Performed By: #### 5 7021-8 ####[facility] [id number] [place] [address] [place] Monocytes/100 WBC (Bld) 10.5 % Normal [facility] Comment on above: Order Comment: Speci men Type: BLOOD SPECIMENOrdering Facility: [facility] Address: [address] [place] [address] Performed By: #### 5 7021-8 ####[facility] [id number] [place] [address] [place] Neutrophils (Bld) [#/Vol] 3.68 10*3/uL Normal 1.45-7.50 [facility] Comment on above: Order Comment: Speci men Type: BLOOD SPECIMENOrdering Facility: [facility] Address: [address] [place] [address] Performed By: #### 5 7021-8 ####[facility] [id number] [place] [address] [place] Neutrophils/100 WBC (Bld) 62.5 % Normal [facility] Comment on above: Order Comment: Speci men Type: BLOOD SPECIMENOrdering Facility: [facility] Address: [address] [place] [address] Performed By: #### 5 7021-8 ####[facility] [id number] [place] [address] [place] Nucleated RBC (Bld) [#/Vol] 10*3/uL Normal <0.01 [facility] Comment on above: Order Comment: Speci men Type: BLOOD SPECIMENOrdering Facility: [facility] Address: [address] [place] [address] Performed By: #### 5 7021-8 ####[facility] [id number] [place] [address] [place] Nucleated RBC/100 WBC (Bld) [Ratio] 0.0 /100 WBC Normal [facility] Comment on above: Order Comment: Speci men Type: BLOOD SPECIMENOrdering Facility: [facility] Address: [address] [place] [address] Performed By: #### 5 7021-8 ####[facility] [id number] [place] [address] [place] Platelet mean volume (Bld) [Entitic vol] 10.0 fL Normal 9.0-12.7 [facility] Comment on above: Order Comment: Speci men Type: BLOOD SPECIMENOrdering Facility: [facility] Address: [address] [place] [address] Performed By: #### 5 7021-8 ####[facility] [id number] [place] [address] [place] Platelets (Bld) [#/Vol] 276 10*3/uL Normal 150-400 [facility] Comment on above: Order Comment: Speci men Type: BLOOD SPECIMENOrdering Facility: [facility] Address: [address] [place] [address] Performed By: #### 5 7021-8 ####[facility] [id number] [place] [address] [place] RBC (Bld) [#/Vol] 4.38 10*6/uL Normal 3.90-5.20 [facility] Comment on above: Order Comment: Speci men Type: BLOOD SPECIMENOrdering Facility: [facility] Address: [address] [place] [address] Performed By: #### 5 7021-8 ####[facility] [id number] [place] [address] [place] WBC (Bld) [#/Vol] 5.89 10*3/uL Normal 3.70-11.00 [facility] Comment on above: Order Comment: Speci men Type: BLOOD SPECIMENOrdering Facility: [facility] Address: [address] [place] [address] Performed By: #### 5 7021-8 ####[facility] [id number] [place] [address] [place] CNOVon 12-09-2023 CNOV Normal [facility] Centromere Ab IF Ql (S)on Centromere Ab Qn (S) >8.0 High <1.0 [facility] Comment on above: Order Comment: Speci men Type: BLOOD SPECIMENOrdering Facility: [facility] Address: [address] [place] [address] Result Comment: Anti -centromere antibody is used as in aid in diagnosis of systemic sclerosis. Clinical correlation is required.Test Methodology: Multiplex flow immunoassay. Performed By: #### 1 6570-4 ####[facility] [id number] [place] [address] [place] CENTROMERE AB QUAL Positive Abnormal Negative [facility] Comment on above: Order Comment: Speci men Type: BLOOD SPECIMENOrdering Facility: [facility] Address: [address] [place] [address] Performed By: #### 1 6570-4 ####[facility] [id number] [place] [address] [place] Comprehensive metabolic 2000 panelon 12-09-2023 Albumin [Mass/Vol] 4.3 g/dL Normal 3.9-4.9 [facility] Comment on above: Order Comment: Speci men Type: BLOOD SPECIMEN Ordering Facility: [facility] Address: [address] [place] [address] Performed By: #### 2 4323-8 #### [facility] [place] [id number] [place] [address] [place] ALP [Catalytic activity/Vol] 47 U/L Normal 34-123 [facility] Comment on above: Order Comment: Speci men Type: BLOOD SPECIMEN Ordering Facility: [facility] Address: [address] [place] [address] Performed By: #### 2 4323-8 #### [facility] CLIA [id number] [place] [address] [place] ALT [Catalytic activity/Vol] 13 U/L Normal 7-38 [facility] Comment on above: Order Comment: Speci men Type: BLOOD SPECIMEN Ordering Facility: [facility] Address: [address] [place] [address] Performed By: #### 2 4323-8 #### [facility] CLIA [id number] [place] [address] [place] Anion gap [Moles/Vol] 10 mmol/L Normal 9-18 [facility] Comment on above: Order Comment: Speci men Type: BLOOD SPECIMEN Ordering Facility: [facility] Address: [address] [place] [address] Performed By: #### 2 4323-8 #### [facility] IA [id number] [place] [address] [place] AST [Catalytic activity/Vol] 20 U/L Normal 13-35 [facility] Comment on above: Order Comment: Speci men Type: BLOOD SPECIMEN Ordering Facility: [facility] Address: [address] [place] [address] Performed By: #### 2 4323-8 #### [facility] IA [id number] [place] [address] [place] Bilirubin [Mass/Vol] 0.3 mg/dL Normal 0.2-1.3 [facility] Comment on above: Order Comment: Speci men Type: BLOOD SPECIMEN Ordering Facility: [facility] Address: [address] [place] [address] Performed By: #### 2 4323-8 #### [facility] [place] [id number] [address] [place] [address] [place] Calcium [Mass/Vol] 9.1 mg/dL Normal 8.5-10.2 [facility] Comment on above: Order Comment: Speci men Type: BLOOD SPECIMEN Ordering Facility: [facility] Address: [address] [place] [address] Performed By: #### 2 4323-8 #### [facility] [place] [id number] [address] [place] [id number] [place] Chloride [Moles/Vol] 104 mmol/L Normal 97-105 [facility] Comment on above: Order Comment: Speci men Type: BLOOD SPECIMEN Ordering Facility: [facility] Address: [address] [place] [address] Performed By: #### 2 4323-8 #### [facility] CLIA [id number] [facility] [place] [address] [place] CO2 [Moles/Vol] 26 mmol/L Normal 22-30 [facility] Comment on above: Order Comment: Speci men Type: BLOOD SPECIMEN Ordering Facility: [facility] Address: [address] [place] [address] Performed By: #### 2 4323-8 #### [facility] CLIA [id number] [address] [place] [address] [place] Creatinine [Mass/Vol] 0.67 mg/dL Normal 0.58-0.96 [facility] Comment on above: Order Comment: Speci men Type: BLOOD SPECIMEN Ordering Facility: [facility] Address: [address] [place] [address] Performed By: #### 2 4323-8 #### [facility] CLIA [id number] [place] Creatinine and Glomerular filtration rate.predicted panel (S/P/Bld) 113 mL/min/1.73m??? Normal >=60 [facility] Comment on above: Order Comment: Speci men Type: BLOOD SPECIMEN Ordering Facility: [facility] Address: [address] [place] [address] Result Comment: Abbey mated Glomerular Filtration Rate [...] GFR. Performed By: #### 2 4323-8 #### [facility] CLIA [id number] [place] [address] [place] Glucose [Mass/Vol] 94 mg/dL Normal 74-99 [facility] Comment on above: Order Comment: Speci men Type: BLOOD SPECIMEN Ordering Facility: [facility] Address: [address] [place] [address] Result Comment: The [place] [employer] (ADA) provides guidance for cutoff [...] Standards of Medical Care in Diabetes 2016, [place] [employer]. Diabetes Care. 2016.39(Suppl 1). Performed By: #### 2 4323-8 #### [facility] CLIA [id number] [place] [address] [place] Potassium [Moles/Vol] 4.4 mmol/L Normal 3.7-5.1 [facility] Comment on above: Order Comment: Speci men Type: BLOOD SPECIMEN Ordering Facility: [facility] Address: [address] [place] [address] Performed By: #### 2 4323-8 #### [facility] CLIA [id number] [address] [place], [place] [address] [place] Protein [Mass/Vol] 7.0 g/dL Normal 6.3-8.0 [facility] Comment on above: Order Comment: Bradyi men Type: BLOOD SPECIMEN Ordering Facility: [facility] Address: [address] [place] [address] Performed By: #### 2 4323-8 #### [facility] CLIA [id number] [place] [address] [place] Sodium [Moles/Vol] 140 mmol/L Normal 136-144 [facility] Comment on above: Order Comment: Bradyi men Type: BLOOD SPECIMEN Ordering Facility: [facility] Address: [address] [place] [address] Performed By: #### 2 4323-8 #### [facility] CLIA [id number] [address] [place] [address] [place] Urea nitrogen [Mass/Vol] 13 mg/dL Normal 7- [facility] Comment on above: Order Comment: Speci men Type: BLOOD SPECIMEN Ordering Facility: [facility] Address: [address], [place] [address] Performed By: #### 2 4323-8 #### [facility] CLIA [id number] [place] [address] [place] HISTORY PHYSICALon HISTORY PHYSICAL HNO ID: [id number] Author: MAURIZIO STINSON PA-C Service: ? Author Type: Physician Assistant Food Service Manager Type: H&P Filed: 12/09/2023 14:27 Note Text: HISTORY AND PHYSICAL EXAMINATION SERVICE DATE: 12/09/2023 SERVICE TIME: 10:48 AM PRIMARY CARE PHYSICIAN: Chris White, DO Assessment/Plan 1. Pre-op exam Surgery 12/22/2023 2. 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 Normal [facility] PT panel Coag (PPP)on 2023 INR Coag (PPP) [Relative time] 1.0 {INR} Normal 0.9-1.3 [facility] Comment on above: Order Comment: Speci men Type: BLOOD SPECIMENOrdering Facility: [facility] Address: [address] [place] [address] Result Comment: An min K Antagonist (VKA) Therapeutic Range: INR 2 to 3 (Target INR of 2.5)Note: For patients treated with VKA drugs, such as warfarin, the [place] [employer] 2012 Guideline recommends [...] 2.5 to 3.5 (target INR of 3).Hussein CORTEZ, et al. Chest 2012, 141:7S-47SEvelyn MARTINEZ, et al. [facility] 2017, 70: 252-289 Performed By: #### 3 4528-0 ####[facility] LABCLIA [id number] [place] [address] [place] PT Coag (PPP) [Time] 10.4 s Normal 9.7-13.0 [facility] Comment on above: Order Comment: Speci men Type: BLOOD SPECIMENOrdering Facility: [facility] Address: [address] [place] [address] Performed By: #### 3 4528-0 ####[facility] LABCLIA [id number] [place] [address] [place] TYPE AND SCREEN,30 DAYon ABO B Normal [facility] Comment on above: Order Comment: Speci men Type: BLOOD SPECIMENOrdering Facility: [facility] Address: [address] [place] [address] Performed By: #### T SCR30 ####[facility] BLOOD BANKIA [id number] [place] [address] [place] HISTORICAL AB SCR STATUS Negative Normal [facility] Comment on above: Order Comment: Speci men Type: BLOOD SPECIMENOrdering Facility: [facility] Address: [address] [place] [address] Performed By: #### T SCR30 ####CC [facility] BLOOD BANKIA [id number] [place] [address] [place] Rh Nom (Bld) Positive Normal [facility] Comment on above: Order Comment: Speci men Type: BLOOD SPECIMENOrdering Facility: [facility] Address: [address] [place] [address] Performed By: #### T SCR30 ####CC [facility] BLOOD BANKIA [id number] [place] [address] [place] CNPNon 12-02-2023 CNPN Normal [facility] CNOVon 11-23-2023 CNOV Normal [facility] CNPNon 10-24-2023 CNPN Normal [facility] CNOVon 11-21-2023 CNOV Normal [facility] CNOVSPon 10-18-2023 CNOVSP Normal [facility] CNPNon 10-04-2023 CNPN Normal [facility] CNOVon 09-29-2023 CNOV Normal [facility] CNOVon 09-23-2023 CNOV Normal [facility] ANES POSTPROC EVALon 023 ANES POSTPROC EVAL Normal [facility] ANES PRE-OPon 09-22-2023 ANES PRE-OP Normal [facility] HISTORY PHYSICALon HISTORY PHYSICAL Normal [facility] NURSING PROGon 09-22-2023 NURSING PROG Normal [facility] NURSING PROG Normal [facility] SURGICAL PATHOLOGYon 023 CASE REPORT Normal [facility] Comment on above: Order Comment: Bradyi adria Type: TISSUE SPECIMENOrdering Facility: [facility] Address: [address] [place] [address] Result Comment: Surg ica Pathology Report Case: [id number] Provider: Lamont Brown MD Collected: 09/22/2023 02:19 PMOrdering Location: Gastroenterology Received: 09/22/2023 04:58 PMPathologist: Shamir Carvajal MD, PhDSpecimens: A) - ILEUM BIOPSY, hx crohns r/o active disease B) - TRANSVERSE COLON BIOPSY, hx crohns r/o active disease C) - COLON LEFT BIOPSY, hx crohns r/o active disease D) - RECTAL BIOPSY, hx crohns r/o active disease Performed By: #### S ####[facility] LABCLIA [id number] [place] [address] [place] FINAL DIAGNOSIS Normal [facility] Comment on above: Order Comment: Bradyi men Type: TISSUE SPECIMENOrdering Facility: [facility] Address: [address] [place] [address] Result Comment: Tere horowitz, biopsy:- Small intestinal mucosa with mild reactive changes.- No evidence of significant active inflammation, granulomas or dysplasia.B-D. Colon, transverse, left and rectum, biopsies:- Colonic mucosa with no significant diagnostic abnormality.- No evidence of granulomas or dysplasia. Performed By: #### S ####[facility] LABIA [id number] [place] [address] [place] FINAL PERFORMING LAB Normal [facility] Comment on above: Order Comment: Speci men Type: TISSUE SPECIMENOrdering Facility: [facility] Address: [address] [place] [address] Result Comment: Diag nostic interpretation performed at [facility], [address] [address] CLIA# [id number] Director: Scot Poole M.D. Performed By: #### S ####[facility] LABIA [id number] [address] [place] GROSS DESCRIPTION A. ILEUM BIOPSY Normal [facility] Comment on above: Order Comment: Speci men Type: TISSUE SPECIMENOrdering Facility: [facility] Address: [address] [place] [address] Result Comment: Rece ived in formalin are [...] 22, 2023 10:31 PMGross examination performed at [facility], [address] [place] [address] Performed By: #### S ####[facility] LABCLIA [id number] [address] [place] CNPNon 09-20-2023 CNPN Normal [facility] CNPNon 09-16-2023 CNPN Normal [facility] CNPNon 09-15-2023 CNPN Normal [facility] CNOVon 09-14-2023 CNOV Normal [facility] CNPNon 09-14-2023 CNPN Normal [facility] CNOVon 09-05-2023 CNOV Normal [facility] ADALIMUMAB ACTIVITY AND NEUT RALIZING ANTIBODYon 07-12-2023 ADALIMUMAB ACTIVITY 13.08 ug/mL Normal >=0.65 [facility] Comment on above: Order Comment: Speci men Type: BLOOD SPECIMENOrdering Facility: [facility] Address: [facility] [place] [address] Result Comment: INTE RPRETIVE INFORMATION: Adalimumab Activity [...] was developed and its performance characteristicsdetermined by [facility]. It has not been cleared orapproved by the [place] Food and Drug Administration. This test wasperformed in a CLIA certified laboratory and is intended forclinical purposes. Performed By: #### A TAMIKA ####[facility] LABORATORIESCLIA [id number] [place] [address] ADALIMUMAB NEUTRALIZING ANTIBODY Not detected Normal Not Detected [facility] Comment on above: Order Comment: Speci men Type: BLOOD SPECIMENOrdering Facility: [facility] Address: [address] [place] [address] Performed By: #### A TAMIKA ####[facility] ViacoreIA [id number] [place] [address] EER ADALIMUMAB See Note Normal [facility] Comment on above: Order Comment: Speci adria Type: BLOOD SPECIMENOrdering Facility: [facility] Address: [address] [place] [address] Result Comment: Auth orized individuals can access the [facility] Report using the following link:[email or web address] By: [facility] [place], [place] [address]Hhk[facility]ia Director: Ivan Sellers MD, PhDCLIA Number: [id number] Performed By: #### A TAMIKA ####[facility] ViacoreCLIA [id number] [place] [address] MRI FEMALE PELVIS WO/W IVCON on 07-12-2023 MRI FEMALE PELVIS WO/W IVCON Normal [facility] BETA 2 GLYCOPROTEIN, IGGon 0 05-20-2023 Beta 2 glycoprotein 1 IgG IA Qn <9 Normal <20 [facility] Comment on above: Order Comment: Speci men Type: BLOOD SPECIMENOrdering Facility: [facility] Address: [address] [place] [address] Result Comment: <20 SGU Snvkvror37-65 SGU Low Positive>80 SGU High PositiveThese results were obtained with the [employer] QUANTA Lite B2 GPI IgG DONTRELL. B2 GPI IgG values obtained with different manufacturers' assay methods may not be used interchangeably. The magnitude of the reported IgG levels cannot be correlated to an endpoint titer. Performed By: #### 5 076-5, WARNER CARDIG, BETA2M, BETA2G ####[facility] LABIA [id number] [place] [address] [place] BETA 2 GLYCOPROTEIN, IGMon 0 05-20-2023 Beta 2 glycoprotein 1 IgM IA Qn 23 [facility]U High <20 [facility] Comment on above: Order Comment: Speci men Type: BLOOD SPECIMENOrdering Facility: [facility] Address: [address] [place] [address] Result Comment: <20 SMU Unssrids49-50 SMU Low Positive>80 SMU High positiveThese results were obtained with the [employer] QUANTA Lite B2 GPI IgM DONTRELL. B2 GPI IgM values obtained with different manufacturers' assay methods may not be used interchangeably. The magnitude of the reported IgM levels cannot be correlated to an endpoint titer. Performed By: #### 5 076-5, WARNER CARDIG, BETA2M, BETA2G ####[facility] LABIA [id number] [place] [address] [place] CARDIOLIPIN IGG ABSon 2022 Cardiolipin IgG IA Qn (S) <9.0 Normal <15.0 [facility] Comment on above: Order Comment: Speci men Type: BLOOD SPECIMENOrdering Facility: [facility] Address: [address] [place] [address] Result Comment: <15 GPL Fqxqmucz13-54 GPL Indeterminate>20 GPL PositiveThe following results were obtained with the [employer] QUANTA Lite HARPREET IgG III DONTRELL. Cardiolipin IgG values obtained with the different manufacturers' assay methods may not be used interchangeably. The magnitude of the reported IgG levels cannot be correlated to an endpoint titer. Performed By: #### 5 076-5, CARDIM, CARDIG, BETA2M, BETA2G ####[facility] LABCLIA [id number] [address] CARDIOLIPIN IGM ABSon 2022 Cardiolipin IgM IA Qn (S) <9.0 Normal <12.5 [facility] Comment on above: Order Comment: Speci men Type: BLOOD SPECIMENOrdering Facility: [facility] Address: [address] [place] [address] Result Comment: <12. 5 MPL Sxwlcjsc96.5-20 MPL Indeterminate>20 MPL PositiveThe following results were obtained with the [employer] QUANTA Lite HARPREET IgM III DONTRELL. Cardiolipin IgM values obtained with the different manufacturers' assay methods may not be used interchangeably. The magnitude of the reported IgM levels cannot be correlated to an endpoint titer.??? Performed By: #### 5 076-5, WARNER CARDIG, BETA2M, BETA2G ####[facility] LABIA [id number] [address] [place] CNOVon 05-20-2023 CNOV Normal [facility] Cardiolipin IgA Ser IA-aCnco n 05-20-2023 Cardiolipin IgA IA Qn (S) <9.0 Normal <12.0 [facility] Comment on above: Order Comment: Speci men Type: BLOOD SPECIMENOrdering Facility: [facility] Address: [address] [place] [address] Result Comment: <12 APL Mhoxrqze87-63 APL Indeterminate>20 APL PositiveThe following results were obtained with the [employer] QUANTA Lite HARPREET IgA III DONTRELL. Cardiolipin IgA values obtained with the different manufacturers' assay methods may not be used interchangeably. The magnitude of the reported IgA levels cannot be correlated to an endpoint titer. Performed By: #### 5 076-5, CARDIM, CARDIG, BETA2M, BETA2G ####[facility] LABCLIA [id number] [place] [address] [place] [facility] [place] LUPUS PANELon 05-20-2023 aPTT Coag (Bld) [Time] 30.2 s Normal 24.0-35.1 [facility] Comment on above: Order Comment: Speci men Type: BLOOD SPECIMENOrdering Facility: [facility] Address: [address] [place] [address] Performed By: #### L UPPL ####[facility] LABIA [id number] [address] aPTT W excess hexagonal phase phospholipid Coag (PPP) [Time] 42.4 seconds Normal 34.0-51.8 [facility] Comment on above: Order Comment: Speci men Type: BLOOD SPECIMENOrdering Facility: [facility] Address: [address] [place] [address] Performed By: #### L UPPL ####[facility] LABIA [id number] [address] Delta dRVVT Coag (PPP) [Time diff] 0.0 delta seconds Normal <7.1 [facility] Comment on above: Order Comment: Speci men Type: BLOOD SPECIMENOrdering Facility: [facility] Address: [address] [place] [address] Performed By: #### L UPPL ####[facility] [id number] [address] dRVVT Coag (PPP) [Time] 30.9 s Low 32.0-45.7 [facility] Comment on above: Order Comment: Speci men Type: BLOOD SPECIMENOrdering Facility: [facility] Address: [address] [place] [address] Performed By: #### L UPPL ####[facility] LABIA [id number] [address] [place] dRVVT factor substitution immediately after 1:2 addition of normal plasma Coag (PPP) [Time] 33.5 seconds Normal 32.0-45.7 [facility] Comment on above: Order Comment: Speci men Type: BLOOD SPECIMENOrdering Facility: [facility] Address: [address] [place], [place] [address] Performed By: #### L UPPL ####[facility] LABIA [id number] [place] [address] [place] dRVVT W excess hexagonal phase phospholipid actual/normal Coag (PPP) [Relative time] 43.1 seconds Normal 34.2-47.9 [facility] Comment on above: Order Comment: Speci men Type: BLOOD SPECIMENOrdering Facility: [facility] Address: [address] [place], [place] [address] Performed By: #### L UPPL ####[facility] [id number] [place] [address] [place] dRVVT/dRVVT.excess phospholipid Coag (PPP) [Ratio] 1.03 Normal <1.32 [facility] Comment on above: Order Comment: Speci men Type: BLOOD SPECIMENOrdering Facility: [facility] Address: [address] [place], [place] [address] Performed By: #### L UPPL ####[facility] [id number] [place] [address] [place] Lupus anticoagulant neutralization platelet Coag Ql (PPP) Negative Normal Negative [facility] Comment on above: Order Comment: Speci men Type: BLOOD SPECIMENOrdering Facility: [facility] Address: [address] Performed By: #### L UPPL ####[facility] [id number] [place] [address] [place] Thrombin time Coag (PPP) [Time] <16.8 Normal <18.6 [facility] Comment on above: Order Comment: Speci men Type: BLOOD SPECIMENOrdering Facility: [facility] Address: [address] Performed By: #### L UPPL ####[facility] LABCLIA [id number] [place] [address] [place] PT panel Coag (PPP)on 2022 INR Coag (PPP) [Relative time] 1.0 {INR} Normal 0.9-1.3 [facility] Comment on above: Order Comment: Speci men Type: BLOOD SPECIMENOrdering Facility: [facility] Address: [address] [address] Result Comment: An min K Antagonist (VKA) Therapeutic Range: INR 2 to 3 (Target INR of 2.5)Note: For patients treated with VKA drugs, such as warfarin, the [place] [employer] 2012 Guideline recommends [...] 2.5 to 3.5 (target INR of 3).Hussein CORTEZ, et al. Chest 2012, 141:7S-47SEvelyn RA, et al. [facility] 2017, 70: 252-289 Performed By: #### 3 4528-0, 20510-5 ####[facility] LABCLIA [id number] [address] [place] [address] [place] PT Coag (PPP) [Time] 9.9 s Normal 9.7-13.0 [facility] Comment on above: Order Comment: Specemilia covington Type: BLOOD SPECIMENOrdering Facility: [facility] Address: [address] [address] Performed By: #### 3 4528-0, 84964-2 ####[facility] LABCLIA [id number] [place] [address] [place] aPTT PPPon 05-20-2023 aPTT Coag (PPP) [Time] 27.8 s Normal 23.0-32.4 [facility] Comment on above: Order Comment: Speci men Type: BLOOD SPECIMENOrdering Facility: [facility] Address: [address] [address] Performed By: #### 3 4528-0, 97068-7 ####[facility] LABCLIA [id number] [place] [address] [place] CNOVon 05-19-2023 CNOV Normal [facility] CNPNon 05-11-2023 CNPN Normal [facility] CNCOon 03-24-2023 CNCO Letter Text Normal [facility] ALLIED HEALTHon 03-08-2023 ALLIED HEALTH Normal [facility] Basic metabolic 2000 panelon 03-08-2023 Anion gap [Moles/Vol] 10 mmol/L Normal 9-18 [facility] Comment on above: Order Comment: Speci men Type: BLOOD SPECIMENOrdering Facility: [facility] Address: [address] Performed By: #### 2 4321-2, , 2776-11 ####[facility] LABCLIA [id number] [place] [address] [place] Calcium [Mass/Vol] 8.8 mg/dL Normal 8.5-10.2 [facility] Comment on above: Order Comment: Speci men Type: BLOOD SPECIMENOrdering Facility: [facility] Address: [address] Performed By: #### 2 4321-2, , 2776-11 ####[facility] LABCLIA [id number] [place] [address] [place] Chloride [Moles/Vol] 105 mmol/L Normal 97-105 [facility] Comment on above: Order Comment: Speci men Type: BLOOD SPECIMENOrdering Facility: [facility] Address: [address] [place] [address] Performed By: #### 2 4321-2, , 2776-11 ####[facility] LABIA [id number] [place] [address] [place] CO2 [Moles/Vol] 24 mmol/L Normal 22-30 [facility] Comment on above: Order Comment: Speci men Type: BLOOD SPECIMENOrdering Facility: [facility] Address: [address] [place] [address] Performed By: #### 2 432-2, , 2776-11 ####[facility] LABIA [id number] [place] [address] [place] Creatinine [Mass/Vol] 0.72 mg/dL Normal 0.58-0.96 [facility] Comment on above: Order Comment: Speci men Type: BLOOD SPECIMENOrdering Facility: [facility] Address: [address] [place] [address] Performed By: #### 2 4322, , 2776-11 ####[facility] LABIA [id number] [place] [address] [place] ESTIMATED GLOMERULAR FILTRATION RATE 109 mL/min/1.73m??? Normal >=60 [facility] Comment on above: Order Comment: Speci men Type: BLOOD SPECIMENOrdering Facility: [facility] Address: [address] [place] [address] Result Comment: Abbey mated Glomerular Filtration Rate [...] reflect actual GFR. Performed By: #### 2 4321-2, 35934-12776-11 ####[facility] LABCLIA [id number] [place] [address] [place] Glucose [Mass/Vol] 87 mg/dL Normal 74-99 [facility] Comment on above: Order Comment: Speci men Type: BLOOD SPECIMENOrdering Facility: [facility] Address: [address] [place] [address] Result Comment: The [place] Diabetes Association (ADA) provides guidance for cutoff [...] Standards of Medical Care in Diabetes 2016, [place] [employer]. Diabetes Care. 2016.39(Suppl 1). Performed By: #### 2 4321-2, , 2776-11 ####[facility] LABIA [id number] [place] [address] [place] Potassium [Moles/Vol] 3.9 mmol/L Normal 3.7-5.1 [facility] Comment on above: Order Comment: Speci men Type: BLOOD SPECIMENOrdering Facility: [facility] Address: [address] Performed By: #### 2 4321-2, , 2776-11 ####[facility] LABIA [id number] [place] [address] [place] Sodium [Moles/Vol] 139 mmol/L Normal 136-144 [facility] Comment on above: Order Comment: Speci men Type: BLOOD SPECIMENOrdering Facility: [facility] Address: [address] [place], [place] [address] Performed By: #### 2 4321-2, 62187-5, 2776- ####[facility] LABCLIA [id number] [place] [address] [place] Urea nitrogen [Mass/Vol] 5 mg/dL Low 7-21 [facility] Comment on above: Order Comment: Speci men Type: BLOOD SPECIMENOrdering Facility: [facility] Address: [address] [place] [address] Performed By: #### 2 4321-2, , 2776-11 ####[facility] LABCLIA [id number] [place] [address] [place] CBC panel Auto (Bld)on 03-08 Erythrocyte distribution width (RBC) [Ratio] 13.2 % Normal 11.5-15.0 [facility] Comment on above: Order Comment: Speci men Type: BLOOD SPECIMENOrdering Facility: [facility] Address: [address] [place] [address] Performed By: #### 5 8410-2 ####[facility] LABCLIA [id number] [place] [address] [place] Hematocrit (Bld) [Volume fraction] 37.1 % Normal 36.0-46.0 [facility] Comment on above: Order Comment: Speci men Type: BLOOD SPECIMENOrdering Facility: [facility] Address: [address] [place], [place] [address] Performed By: #### 5 8410-2 ####[facility] LABCLIA [id number] [place] [address] [place] Hemoglobin (Bld) [Mass/Vol] 12.0 g/dL Normal 11.5-15.5 [facility] Comment on above: Order Comment: Speci men Type: BLOOD SPECIMENOrdering Facility: [facility] Address: [address] [place] [address] Performed By: #### 5 8410-2 ####[facility] LABCLIA [id number] [place] [address] [place] MCH (RBC) [Entitic mass] 29.6 pg Normal 26.0-34.0 [facility] Comment on above: Order Comment: Speci men Type: BLOOD SPECIMENOrdering Facility: [facility] Address: [address] [place] [address] Performed By: #### 5 8410-2 ####[facility] [id number] [address] [place] MCHC (RBC) [Mass/Vol] 32.3 g/dL Normal 30.5-36.0 [facility] Comment on above: Order Comment: Speci men Type: BLOOD SPECIMENOrdering Facility: [facility] Address: [address] [place] [address] Performed By: #### 5 8410-2 ####[facility] [id number] [address] [place] MCV (RBC) [Entitic vol] 91.6 fL Normal 80.0-100.0 [facility] Comment on above: Order Comment: Speci men Type: BLOOD SPECIMENOrdering Facility: [facility] Address: [address] [place] [address] Performed By: #### 5 8410-2 ####[facility] [id number] [place] [address] [place] Nucleated RBC (Bld) [#/Vol] 10*3/uL Normal <0.01 [facility] Comment on above: Order Comment: Speci men Type: BLOOD SPECIMENOrdering Facility: [facility] Address: [address] [place], [place] [address] Performed By: #### 5 8410-2 ####[facility] [id number] [address] [place] Platelet mean volume (Bld) [Entitic vol] 9.9 fL Normal 9.0-12.7 [facility] Comment on above: Order Comment: Speci men Type: BLOOD SPECIMENOrdering Facility: [facility] Address: [address] [place], [place] [address] Performed By: #### 5 8410-2 ####[facility] LABCLIA [id number] [place] [address] [place] Platelets (Bld) [#/Vol] 253 10*3/uL Normal 150-400 [facility] Comment on above: Order Comment: Speci men Type: BLOOD SPECIMENOrdering Facility: [facility] Address: [address] [place], [place] [address] Performed By: #### 5 8410-2 ####[facility] LABCLIA [id number] [place] [address] [place] RBC (Bld) [#/Vol] 4.05 10*6/uL Normal 3.90-5.20 [facility] Comment on above: Order Comment: Speci men Type: BLOOD SPECIMENOrdering Facility: [facility] Address: [address] [place], [place] [address] Performed By: #### 5 8410-2 ####[facility] [id number] [place] [address] [place] WBC (Bld) [#/Vol] 3.20 10*3/uL Low 3.70-11.00 [facility] Comment on above: Order Comment: Speci men Type: BLOOD SPECIMENOrdering Facility: [facility] Address: [address] [place], [place] [address] Performed By: #### 5 8410-2 ####[facility] [id number] [place] [address] [place] ED NOTEon 03-08-2023 ED NOTE HNO ID: [id number] Author: Tacho Cr RN Service: Emergency Medicine Author Type: Registered Nurse Type: ED Notes Filed: 03/07/2023 11:05 PM Note Text: Report to TAYLA Lam Normal [facility] Magnesium [Mass/Vol] 2.0 mg/dL Normal 1.7-2.3 [facility] Comment on above: Order Comment: Speci men Type: BLOOD SPECIMENOrdering Facility: [facility] Address: [address] [address] Performed By: #### 2 4321-2, 39825-8, 2776- ####[facility] [id number] [place] [address] [place] [facility] Phosphate SerPl-mCncon 03-08 Phosphate [Mass/Vol] 4.0 mg/dL Normal 2.7-4.8 [facility] Comment on above: Order Comment: Speci men Type: BLOOD SPECIMENOrdering Facility: [facility] Address: [address] [place] [address] Performed By: #### 2 4321-2, , 2777- ####[facility] [id number] [place] [address] [place] Bacteria Bld Culton 03-07-20 23 Bacteria identified Cx Nom (Bld) CULTURE, BLOOD: No growth 5 days Normal [facility] Comment on above: Performed By: #### 6 00-7 ####[facility] [id number] [place] [address] [place] Bacteria identified Cx Nom (Bld) CULTURE, BLOOD: No growth 5 days Normal [facility] Comment on above: Performed By: #### 6 00-7 ####[facility] [id number] [place] [address] [place] CBC W Auto Differential pane l (Bld)on 03-07-2023 Basophils (Bld) [#/Vol] 0.03 10*3/uL Normal <0.11 [facility] Comment on above: Order Comment: Speci men Type: BLOOD SPECIMENOrdering Facility: [facility] Address: [address] [place], [place] [address] Performed By: #### 5 7021-8 ####[facility] [id number] [address] [place] Basophils/100 WBC (Bld) 0.5 % Normal [facility] Comment on above: Order Comment: Speci men Type: BLOOD SPECIMENOrdering Facility: [facility] Address: [address] [place] [address] Performed By: #### 5 7021-8 ####[facility] [id number] [place] [address] [place] Differential cell count method Nom (Bld) Auto Normal [facility] Comment on above: Order Comment: Speci men Type: BLOOD SPECIMENOrdering Facility: [facility] Address: [address] [place], [place] [address] Performed By: #### 5 7021-8 ####[facility] [id number] [place] [address] [place] Eosinophils (Bld) [#/Vol] 0.15 10*3/uL Normal <0.46 [facility] Comment on above: Order Comment: Speci men Type: BLOOD SPECIMENOrdering Facility: [facility] Address: [address] [place], [place] [address] Performed By: #### 5 7021-8 ####[facility] [id number] [place] [address] [place] Eosinophils/100 WBC (Bld) 2.7 % Normal [facility] Comment on above: Order Comment: Speci men Type: BLOOD SPECIMENOrdering Facility: [facility] Address: [address] [place], [place] [address] Performed By: #### 5 7021-8 ####[facility] [id number] [place] [address] [place] Erythrocyte distribution width (RBC) [Ratio] 13.0 % Normal 11.5-15.0 [facility] Comment on above: Order Comment: Speci men Type: BLOOD SPECIMENOrdering Facility: [facility] Address: [address] [place] [address] Performed By: #### 5 7021-8 ####[facility] LABIA [id number] [place] [address] [place] Hematocrit (Bld) [Volume fraction] 39.2 % Normal 36.0-46.0 [facility] Comment on above: Order Comment: Speci men Type: BLOOD SPECIMENOrdering Facility: [facility] Address: [address] [place] [address] Performed By: #### 5 7021-8 ####[facility] [id number] [place] [address] [place] Hemoglobin (Bld) [Mass/Vol] 13.2 g/dL Normal 11.5-15.5 [facility] Comment on above: Order Comment: Speci men Type: BLOOD SPECIMENOrdering Facility: [facility] Address: [address] [place], [place] [address] Performed By: #### 5 7021-8 ####[facility] LABIA [id number] [place] [address] [place] Immature granulocytes (Bld) [#/Vol] 0.04 10*3/uL Normal <0.10 [facility] Comment on above: Order Comment: Speci men Type: BLOOD SPECIMENOrdering Facility: [facility] Address: [address] [place], [place] [address] Performed By: #### 5 7021-8 ####[facility]IA [id number] [place] [address] [place] Immature granulocytes/100 WBC (Bld) 0.7 % Normal [facility] Comment on above: Order Comment: Speci men Type: BLOOD SPECIMENOrdering Facility: [facility] Address: [address] Performed By: #### 5 7021-8 ####[facility] [id number] [place] [address] [place] Lymphocytes (Bld) [#/Vol] 0.39 10*3/uL Low 1.00-4.00 [facility] Comment on above: Order Comment: Speci men Type: BLOOD SPECIMENOrdering Facility: [facility] Address: [address] [place], [place] [address] Performed By: #### 5 7021-8 ####[facility] [id number] [address] [place] Lymphocytes/100 WBC (Bld) 7.0 % Normal [facility] Comment on above: Order Comment: Speci men Type: BLOOD SPECIMENOrdering Facility: [facility] Address: [address] [place], [place] [address] Performed By: #### 5 7021-8 ####[facility] [id number] [place] [address] [place] MCH (RBC) [Entitic mass] 30.2 pg Normal 26.0-34.0 [facility] Comment on above: Order Comment: Speci men Type: BLOOD SPECIMENOrdering Facility: [facility] Address: [address] Performed By: #### 5 7021-8 ####[facility] [id number] [place] [address] [place] MCHC (RBC) [Mass/Vol] 33.7 g/dL Normal 30.5-36.0 [facility] Comment on above: Order Comment: Speci men Type: BLOOD SPECIMENOrdering Facility: [facility] Address: [address] Performed By: #### 5 7021-8 ####[facility] [id number] [place] [address] [place] MCV (RBC) [Entitic vol] 89.7 fL Normal 80.0-100.0 [facility] Comment on above: Order Comment: Speci men Type: BLOOD SPECIMENOrdering Facility: [facility] Address: [address] [place], [place] [address] Performed By: #### 5 7021-8 ####[facility] [id number] [place] [address] [place] Monocytes (Bld) [#/Vol] 0.59 10*3/uL Normal <0.87 [facility] Comment on above: Order Comment: Speci men Type: BLOOD SPECIMENOrdering Facility: [facility] Address: [address] [place], [place] [address] Performed By: #### 5 7021-8 ####[facility] [id number] [place] [address] [place] Monocytes/100 WBC (Bld) 10.5 % Normal [facility] Comment on above: Order Comment: Speci men Type: BLOOD SPECIMENOrdering Facility: [facility] Address: [address] [place], [place] [address] Performed By: #### 5 7021-8 ####[facility] [id number] [place] [address] [place] Neutrophils (Bld) [#/Vol] 4.41 10*3/uL Normal 1.45-7.50 [facility] Comment on above: Order Comment: Speci men Type: BLOOD SPECIMENOrdering Facility: [facility] Address: [address] [place], [place] [address] Performed By: #### 5 7021-8 ####[facility] [id number] [place] [address] [place] Neutrophils/100 WBC (Bld) 78.6 % Normal [facility] Comment on above: Order Comment: Speci men Type: BLOOD SPECIMENOrdering Facility: [facility] Address: [address] [place], [place] [address] Performed By: #### 5 7021-8 ####[facility] [id number] [place] [address] [place] Nucleated RBC (Bld) [#/Vol] 10*3/uL Normal <0.01 [facility] Comment on above: Order Comment: Speci men Type: BLOOD SPECIMENOrdering Facility: [facility] Address: [address] [place], [place] [address] Performed By: #### 5 7021-8 ####[facility] [id number] [place] [address] [place] Nucleated RBC/100 WBC (Bld) [Ratio] 0.0 /100 WBC Normal [facility] Comment on above: Order Comment: Speci men Type: BLOOD SPECIMENOrdering Facility: [facility] Address: [address] [place], [place] [address] Performed By: #### 5 7021-8 ####[facility] [id number] [place] [address] [place] Platelet mean volume (Bld) [Entitic vol] 9.5 fL Normal 9.0-12.7 [facility] Comment on above: Order Comment: Speci men Type: BLOOD SPECIMENOrdering Facility: [facility] Address: [address] [place], [place] [address] Performed By: #### 5 7021-8 ####[facility] [id number] [place] [address] [place] Platelets (Bld) [#/Vol] 280 10*3/uL Normal 150-400 [facility] Comment on above: Order Comment: Speci men Type: BLOOD SPECIMENOrdering Facility: [facility] Address: [address] [place] [address] Result Comment: No c lot detected. Performed By: #### 5 7021-8 ####[facility] [id number] [place] [address] [place] RBC (Bld) [#/Vol] 4.37 10*6/uL Normal 3.90-5.20 [facility] Comment on above: Order Comment: Speci men Type: BLOOD SPECIMENOrdering Facility: [facility] Address: [address] Performed By: #### 5 7021-8 ####[facility] LABIA [id number] [place] [address] [place] WBC (Bld) [#/Vol] 5.61 10*3/uL Normal 3.70-11.00 [facility] Comment on above: Order Comment: Speci men Type: BLOOD SPECIMENOrdering Facility: [facility] Address: [address] [place] [address] Performed By: #### 5 7021-8 ####[facility]IA [id number] [place] [address] [place] CNPNon 03-07-2023 CNPN Normal [facility] CT ABD/PEL W IVCONon 023 CT ABD/PEL W IVCON Normal [facility] Comprehensive metabolic 2000 panelon 03-07-2023 Albumin [Mass/Vol] 4.5 g/dL Normal 3.9-4.9 [facility] Comment on above: Order Comment: Speci men Type: BLOOD SPECIMENOrdering Facility: [facility] Address: [address] [place] [address] Performed By: #### 2 4323-8 ####[facility] [id number] [place] [address] [place] ALP [Catalytic activity/Vol] 90 U/L Normal 34-123 [facility] Comment on above: Order Comment: Speci men Type: BLOOD SPECIMENOrdering Facility: [facility] Address: [address] Performed By: #### 2 4323-8 ####[facility] [id number] [address] [place] ALT [Catalytic activity/Vol] 13 U/L Normal 7-38 [facility] Comment on above: Order Comment: Speci men Type: BLOOD SPECIMENOrdering Facility: [facility] Address: [address] Performed By: #### 2 4323-8 ####[facility] [id number] [place] [address] [place] Anion gap [Moles/Vol] 11 mmol/L Normal 9-18 [facility] Comment on above: Order Comment: Speci men Type: BLOOD SPECIMENOrdering Facility: [facility] Address: [address] Performed By: #### 2 4323-8 ####[facility] [id number] [place] [address] [place] AST [Catalytic activity/Vol] 19 U/L Normal 13-35 [facility] Comment on above: Order Comment: Speci men Type: BLOOD SPECIMENOrdering Facility: [facility] Address: [address] [place] [address] Performed By: #### 2 4323-8 ####[facility] LABIA [id number] [place] [address] [place] Bilirubin [Mass/Vol] 0.2 mg/dL Normal 0.2-1.3 [facility] Comment on above: Order Comment: Speci men Type: BLOOD SPECIMENOrdering Facility: [facility] Address: [address] Performed By: #### 2 4323-8 ####[facility] [id number] [place] [address] [place] Calcium [Mass/Vol] 9.5 mg/dL Normal 8.5-10.2 [facility] Comment on above: Order Comment: Speci men Type: BLOOD SPECIMENOrdering Facility: [facility] Address: [address] [place] [address] Performed By: #### 2 4323-8 ####[facility] [id number] [place] [address] [place] Chloride [Moles/Vol] 102 mmol/L Normal 97-105 [facility] Comment on above: Order Comment: Speci men Type: BLOOD SPECIMENOrdering Facility: [facility] Address: [address] [place] [address] Performed By: #### 2 4323-8 ####[facility] [id number] [place] [address] [place] CO2 [Moles/Vol] 25 mmol/L Normal 22-30 [facility] Comment on above: Order Comment: Speci men Type: BLOOD SPECIMENOrdering Facility: [facility] Address: [address] [place], [place] [address] Performed By: #### 2 4323-8 ####[facility] [id number] [place] [address] [place] Creatinine [Mass/Vol] 0.68 mg/dL Normal 0.58-0.96 [facility] Comment on above: Order Comment: Speci men Type: BLOOD SPECIMENOrdering Facility: [facility] Address: [address] [place], [place] [address] Performed By: #### 2 4323-8 ####[facility] [id number] [place] [address] [place] ESTIMATED GLOMERULAR FILTRATION RATE 113 mL/min/1.73m??? Normal >=60 [facility] Comment on above: Order Comment: Uday covington Type: BLOOD SPECIMENOrdering Facility: [facility] Address: [address] [place] [address] Result Comment: Abbey mated Glomerular Filtration Rate [...] actual GFR. Performed By: #### 2 4323-8 ####[facility] LABIA [id number] [place] [address] [place] Glucose [Mass/Vol] 89 mg/dL Normal 74-99 [facility] Comment on above: Order Comment: Uday covington Type: BLOOD SPECIMENOrdering Facility: [facility] Address: [address] [address] Result Comment: The [place] [employer] (ADA) provides guidance for cutoff [...] Standards of Medical Care in Diabetes 2016, [place] [employer]. Diabetes Care. 2016.39(Suppl 1). Performed By: #### 2 4323-8 ####[facility] LABIA [id number] [place] [address] [place] Potassium [Moles/Vol] 4.4 mmol/L Normal 3.7-5.1 [facility] Comment on above: Order Comment: Uday covington Type: BLOOD SPECIMENOrdering Facility: [facility] Address: [address] Performed By: #### 2 4323-8 ####[facility] [id number] [place] [address] [place] Protein [Mass/Vol] 7.6 g/dL Normal 6.3-8.0 [facility] Comment on above: Order Comment: Speci men Type: BLOOD SPECIMENOrdering Facility: [facility] Address: [address] [place] [address] Performed By: #### 2 4323-8 ####[facility]IA [id number] [place] [address] [place] Sodium [Moles/Vol] 138 mmol/L Normal 136-144 [facility] Comment on above: Order Comment: Speci men Type: BLOOD SPECIMENOrdering Facility: [facility] Address: [address] [place] [address] Performed By: #### 2 4323-8 ####[facility]IA [id number] [place] [address] [place] Urea nitrogen [Mass/Vol] 8 mg/dL Normal 7-21 [facility] Comment on above: Order Comment: Speci men Type: BLOOD SPECIMENOrdering Facility: [facility] Address: [address] [place] [address] Performed By: #### 2 4323-8 ####[facility]IA [id number] [place] [address] [place] ED PROV NOTEon 03-07-2023 ED PROV NOTE Normal [facility] ED PROV NOTE Normal [facility] ED PROV NOTE Normal [facility] FLUABV+SARS-CoV-2+RSV Pnl Re sp GENESIS+probeon 03-07-2023 FLUABV+SARS-CoV-2+RS V Pnl Resp GENESIS+probe Abnormal [facility] Comment on above: Performed By: #### 9 5941-1 ####[facility] [id number] [place] [address] [place] HISTORY PHYSICALon HISTORY PHYSICAL Normal [facility] Urinalysis complete panel (U )on 03-07-2023 Bilirubin Ql (U) Negative Normal Negative [facility] Comment on above: Order Comment: Speci men Type: URINE SPECIMENOrdering Facility: [facility] Address: [address] [place] [address] Performed By: #### 2 4356-8 ####[facility] [id number] [place] [address] [place] Clarity (Unsp spec) Clear Normal Clear [facility] Comment on above: Order Comment: Speci men Type: URINE SPECIMENOrdering Facility: [facility] Address: [address] [place] [address] Performed By: #### 2 4356-8 ####[facility] [id number] [place] [address] [place] Color (U) Light Yellow Normal Yellow [facility] Comment on above: Order Comment: Speci men Type: URINE SPECIMENOrdering Facility: [facility] Address: [address] [place] [address] Performed By: #### 2 4356-8 ####[facility] [id number] [place] [address] [place] Epithelial cells LM.HPF (Urine sed) [#/Area] Few Normal [facility] Comment on above: Order Comment: Speci men Type: URINE SPECIMENOrdering Facility: [facility] Address: [address] [place] [address] Performed By: #### 2 4356-8 ####[facility] [id number] [place] [address] [place] Glucose Test strip (U) [Mass/Vol] Negative Normal Trace, Negative [facility] Comment on above: Order Comment: Speci men Type: URINE SPECIMENOrdering Facility: [facility] Address: [address] Performed By: #### 2 4356-8 ####[facility] [id number] [place] [address] [place] Hemoglobin Ql (U) 1+ Abnormal Negative, Trace [facility] Comment on above: Order Comment: Speci men Type: URINE SPECIMENOrdering Facility: [facility] Address: [address] [place], [place] [address] Performed By: #### 2 4356-8 ####[facility] [id number] [place] [address] [place] Ketones Ql (U) Negative Normal Trace, Negative [facility] Comment on above: Order Comment: Speci men Type: URINE SPECIMENOrdering Facility: [facility] Address: [address] [place], [place] [address] Performed By: #### 2 4356-8 ####[facility] [id number] [address] Leukocyte esterase Test strip Ql (U) 500 [place]/uL Abnormal Negative, 25 [place]/uL [facility] Comment on above: Order Comment: Speci men Type: URINE SPECIMENOrdering Facility: [facility] Address: [address] [place], [place] [address] Performed By: #### 2 4356-8 ####[facility] [id number] [place] [address] [place] Nitrite Ql (U) Negative Normal Negative [facility] Comment on above: Order Comment: Speci men Type: URINE SPECIMENOrdering Facility: [facility] Address: [address] [place], [place] [address] Performed By: #### 2 4356-8 ####[facility] [id number] [place] [address] [place] pH (U) 6.0 [pH] Normal 5.0-8.0 [facility] Comment on above: Order Comment: Speci men Type: URINE SPECIMENOrdering Facility: [facility] Address: [address] [place] [address] Performed By: #### 2 4356-8 ####[facility]IA [id number] [place] [address] [place] Protein (U) [Mass/Vol] Negative Normal Trace, Negative [facility] Comment on above: Order Comment: Speci men Type: URINE SPECIMENOrdering Facility: [facility] Address: [address] [place] [address] Performed By: #### 2 4356-8 ####[facility] [id number] [place] [address] [place] RBC LM.HPF (Urine sed) [#/Area] 0-3 /HPF Normal 0-3 /HPF [facility] Comment on above: Order Comment: Speci men Type: URINE SPECIMENOrdering Facility: [facility] Address: [address] [place] [address] Performed By: #### 2 4356-8 ####[facility] [id number] [address] [place] Specific gravity (U) [Rel density] 1.016 Normal 1.005-1.030 [facility] Comment on above: Order Comment: Speci men Type: URINE SPECIMENOrdering Facility: [facility] Address: [address] [place], [place] [address] Performed By: #### 2 4356-8 ####[facility] [id number] [address] [place] Urobilinogen Ql (U) Negative Normal Negative [facility] Comment on above: Order Comment: Speci men Type: URINE SPECIMENOrdering Facility: [facility] Address: [address] [place] [address] Performed By: #### 2 4356-8 ####[facility] [id number] [place] [address] [place] WBC LM.HPF (Urine sed) [#/Area] 11-25 /HPF Abnormal 0-5 /HPF [facility] Comment on above: Order Comment: Speci men Type: URINE SPECIMENOrdering Facility: [facility] Address: [address] Performed By: #### 2 4356-8 ####[facility]CL[facility] [id number] [place] [address] [place] Urinalysis complete pnl Uron 03-07-2023 Urinalysis complete panel (U) Normal [facility] Comment on above: Order Comment: Speci men Type: URINE SPECIMENOrdering Facility: [facility] [facility] Address: [place] [address] Performed By: #### 2 4356-8 ####[facility] [id number] [place] [address] [place] XR CHEST 1V FRONTAL PORTon 0 03-07-2023 XR CHEST 1V FRONTAL PORT Normal [facility] CNPNon 03-02-2023 CNPN Normal [facility] CNPNon 03-01-2023 CNPN Normal [facility] CNPNon 02-23-2023 CNPN Normal [facility] Basic metabolic 2000 panelon 02-17-2023 Anion gap [Moles/Vol] 7 mmol/L Low 9-18 [facility] Comment on above: Order Comment: Speci men Type: BLOOD SPECIMENOrdering Facility: [facility] Address: [address] [place] [address] Performed By: #### 2 4321-2, 1987-5, 41213-2, 2777-1 ####[facility] LABCLIA [id number] [place] [address] [place] Calcium [Mass/Vol] 8.4 mg/dL Low 8.5-10.2 [facility] Comment on above: Order Comment: Speci men Type: BLOOD SPECIMENOrdering Facility: [facility] Address: [address] [place] [address] [place] [phone] Performed By: #### 2 4320-12, 1988-03, , 2776-11 ####[facility] LABCLIA [id number] [place] [address] [place] Chloride [Moles/Vol] 106 mmol/L High 97-105 [facility] Comment on above: Order Comment: Speci men Type: BLOOD SPECIMENOrdering Facility: [facility] Address: [address] [place] [address] Performed By: #### 2 4320-12, 1988-03, , 2776-11 ####[facility]CLIA [id number] [place] [address] [place] CO2 [Moles/Vol] 26 mmol/L Normal 22-30 [facility] Comment on above: Order Comment: Speci men Type: BLOOD SPECIMENOrdering Facility: [facility] Address: [address] [place] [address] Performed By: #### 2 4320-12, 1988-03, , 2776-11 ####[facility]CL[facility] [id number] [place] [address] [place] Creatinine [Mass/Vol] 0.70 mg/dL Normal 0.58-0.96 [facility] Comment on above: Order Comment: Speci men Type: BLOOD SPECIMENOrdering Facility: [facility] Address: [address] [place], [place] [address] Performed By: #### 2 4320-12, 1988-03, , 2776-11 ####[facility]CL[facility] [id number] [place] [address] [place] ESTIMATED GLOMERULAR FILTRATION RATE 112 mL/min/1.73m??? Normal >=60 [facility] Comment on above: Order Comment: Uday covington Type: BLOOD SPECIMENOrdering Facility: [facility] Address: [address] [place] [phone] Result Comment: Abbey mated Glomerular Filtration Rate [...] reflect actual GFR. Performed By: #### 2 4320-, 1988-03, , 2776-11 ####[facility]CL[facility] [id number] [place] [address] [place] Glucose [Mass/Vol] 103 mg/dL High 74-99 [facility] Comment on above: Order Comment: Uday covington Type: BLOOD SPECIMENOrdering Facility: [facility] Address: [address] [place], [place] [phone] Result Comment: The [place] Diabetes Association (ADA) provides guidance for cutoff [...] Standards of Medical Care in Diabetes 2016, [place] [employer]. Diabetes Care. 2016.39(Suppl 1). Performed By: #### 2 4320-, 1988-03, , 2776-11 ####[facility]CL[facility] [id number] [address] [address] [place] Potassium [Moles/Vol] 3.7 mmol/L Normal 3.7-5.1 [facility] Comment on above: Order Comment: Speci men Type: BLOOD SPECIMENOrdering Facility: [facility] Address: [address] [place] [address] Performed By: #### 2 4320-12, 1988-03, , 2776-11 ####[facility]CL[facility] [id number] [place] [address] [place] Sodium [Moles/Vol] 139 mmol/L Normal 136-144 [facility] Comment on above: Order Comment: Speci men Type: BLOOD SPECIMENOrdering Facility: [facility] Address: [address] [place] [address] Performed By: #### 2 4320-12, 1988-03, , 2776-11 ####[facility]CL[facility] [id number] [place] [address] [place] Urea nitrogen [Mass/Vol] 8 mg/dL Normal 7-21 [facility] Comment on above: Order Comment: Speci men Type: BLOOD SPECIMENOrdering Facility: [facility] Address: [address] [place] [address] Performed By: #### 2 4320-12, 1988-03, , 2776-11 ####[facility]CL[facility] [id number] [address] [place] CASE MANAGEMon 02-17-2023 CASE MANAGEM Normal [facility] CBC panel Auto (Bld)on 02-17 Erythrocyte distribution width (RBC) [Ratio] 14.0 % Normal 11.5-15.0 [facility] Comment on above: Order Comment: Speci men Type: BLOOD SPECIMENOrdering Facility: [facility] Address: [address] [place] [address] Performed By: #### 5 8410-2 ####[facility]CL[facility] [id number] [address] [place] Hematocrit (Bld) [Volume fraction] 33.2 % Low 36.0-46.0 [facility] Comment on above: Order Comment: Speci men Type: BLOOD SPECIMENOrdering Facility: [facility] Address: [address] [place] [address] Performed By: #### 5 8410-2 ####[facility]CL[facility] [id number] [address] [place] Hemoglobin (Bld) [Mass/Vol] 10.7 g/dL Low 11.5-15.5 [facility] Comment on above: Order Comment: Speci men Type: BLOOD SPECIMENOrdering Facility: [facility] Address: [address] [place] [address] Performed By: #### 5 8410-2 ####[facility]CL[facility] [id number] [address] [place] MCH (RBC) [Entitic mass] 30.6 pg Normal 26.0-34.0 [facility] Comment on above: Order Comment: Speci men Type: BLOOD SPECIMENOrdering Facility: [facility] Address: [address] [place], [place] [address] Performed By: #### 5 8410-2 ####[facility] [id number] [address] [place] MCHC (RBC) [Mass/Vol] 32.2 g/dL Normal 30.5-36.0 [facility] Comment on above: Order Comment: Speci men Type: BLOOD SPECIMENOrdering Facility: [facility] Address: [address] [place], [place] [address] Performed By: #### 5 8410-2 ####[facility]CL[facility] [id number] [address] [place] MCV (RBC) [Entitic vol] 94.9 fL Normal 80.0-100.0 [facility] Comment on above: Order Comment: Speci men Type: BLOOD SPECIMENOrdering Facility: [facility] Address: [address] Performed By: #### 5 8410-2 ####[facility] [id number] [place] [address] [place] Nucleated RBC (Bld) [#/Vol] 10*3/uL Normal <0.01 [facility] Comment on above: Order Comment: Speci men Type: BLOOD SPECIMENOrdering Facility: [facility] Address: [address] Performed By: #### 5 8410-2 ####[facility] [id number] [place] [address] [place] Platelet mean volume (Bld) [Entitic vol] 9.7 fL Normal 9.0-12.7 [facility] Comment on above: Order Comment: Speci men Type: BLOOD SPECIMENOrdering Facility: [facility] Address: [address] Performed By: #### 5 8410-2 ####[facility] [id number] [place] [address] [place] Platelets (Bld) [#/Vol] 192 10*3/uL Normal 150-400 [facility] Comment on above: Order Comment: Speci men Type: BLOOD SPECIMENOrdering Facility: [facility] Address: [address] Performed By: #### 5 8410-2 ####[facility] [id number] [place] [address] [place] RBC (Bld) [#/Vol] 3.50 10*6/uL Low 3.90-5.20 [facility] Comment on above: Order Comment: Speci men Type: BLOOD SPECIMENOrdering Facility: [facility] Address: [address] Performed By: #### 5 8410-2 ####[facility]CLIA [id number] [place] [address] [place] WBC (Bld) [#/Vol] 6.37 10*3/uL Normal 3.70-11.00 [facility] Comment on above: Order Comment: Speci men Type: BLOOD SPECIMENOrdering Facility: [facility] Address: [address] Performed By: #### 5 8410-2 ####[facility]CLIA [id number] [place] [address] [place] CNCOon 02-17-2023 CNCO Letter Text Normal [facility] CNDSon 02-17-2023 CNDS Normal [facility] CRP SerPl-mCncon 02-17-2023 CRP [Mass/Vol] 1.1 mg/dL High <0.9 [facility] Comment on above: Order Comment: Speci men Type: BLOOD SPECIMENOrdering Facility: [facility] Address: [place] [address] Performed By: #### 2 4321-2, 1988-03, , 2776-11 ####[facility] [id number] [place] [address] [place] Magnesium SerPl-mCncon 02-17 Magnesium [Mass/Vol] 1.9 mg/dL Normal 1.7-2.3 [facility] Comment on above: Order Comment: Speci men Type: BLOOD SPECIMENOrdering Facility: [facility] Address: [address] Performed By: #### 2 4321-2, 1988-03, , 2776-11 ####[facility]CL[facility] [id number] [place] [address] [place] Phosphate SerPl-mCncon 02-17 Phosphate [Mass/Vol] 2.9 mg/dL Normal 2.7-4.8 [facility] Comment on above: Order Comment: Speci men Type: BLOOD SPECIMENOrdering Facility: [facility] Address: [address] [place], [place] [address] Performed By: #### 2 4321-2, 1988-03, 41450-1, 2776-11 ####[facility]CL[facility] [id number] [place] [address] [place] Basic metabolic 2000 panelon 2023 Anion gap [Moles/Vol] 9 mmol/L Normal 9-18 [facility] Comment on above: Order Comment: Speci men Type: BLOOD SPECIMENOrdering Facility: [facility] Address: [address] [place] [address] Performed By: #### 1 9123-9, 2776-11, , 1988-03 ####[facility]CLIA [id number] [place] [address] [place] Calcium [Mass/Vol] 9.1 mg/dL Normal 8.5-10.2 [facility] Comment on above: Order Comment: Speci men Type: BLOOD SPECIMENOrdering Facility: [facility] Address: [address] [place], [place] [address] Performed By: #### 1 9123-9, 2776-11, , 1988-03 ####[facility]CL[facility] [id number] [address] [place] Chloride [Moles/Vol] 102 mmol/L Normal 97-105 [facility] Comment on above: Order Comment: Speci men Type: BLOOD SPECIMENOrdering Facility: [facility] Address: [address] [place], [place] [address] Performed By: #### 1 9123-9, 27705-28, , 1988-03 ####[facility]CLIA [id number] [place] [address] [facility] [place] CO2 [Moles/Vol] 25 mmol/L Normal 22-30 [facility] Comment on above: Order Comment: Speci men Type: BLOOD SPECIMENOrdering Facility: [facility] Address: [address] [place] [address] Performed By: #### 1 9123-9, 2777-1, , 1988-03 ####[facility]CL[facility] [id number] [address] STATES OF [facility] Creatinine [Mass/Vol] 0.80 mg/dL Normal 0.58-0.96 [facility] Comment on above: Order Comment: Speci men Type: BLOOD SPECIMENOrdering Facility: [facility] Address: [address] [place] [address] Performed By: #### 1 9123-9, 27705-28, , 1988-03 ####[facility] [id number] [address] STATES OF [facility] ESTIMATED GLOMERULAR FILTRATION RATE 96 mL/min/1.73m??? Normal >=60 [facility] Comment on above: Order Comment: Speci men Type: BLOOD SPECIMENOrdering Facility: [facility] Address: [address] [place] [address] Result Comment: Abbey mated Glomerular Filtration Rate [...] actual GFR. Performed By: #### 1 9123-9, 2777, , 1988-03 ####[facility]CL[facility] [id number] [place] [address] [place] Glucose [Mass/Vol] 108 mg/dL High 74-99 [facility] Comment on above: Order Comment: Speci men Type: BLOOD SPECIMENOrdering Facility: [facility] Address: [place] [address] Result Comment: The [place] Diabetes Association (ADA) provides guidance for cutoff [...] Standards of Medical Care in Diabetes 2016, [place] [employer]. Diabetes Care. 2016.39(Suppl 1). Performed By: #### 1 9123-9, 2777, , 1988-03 ####[facility]CL[facility] [id number] [place] [address] [place] Potassium [Moles/Vol] 3.7 mmol/L Normal 3.7-5.1 [facility] Comment on above: Order Comment: Uday covington Type: BLOOD SPECIMENOrdering Facility: [facility] Address: [address] [place] [address] Performed By: #### 1 9123-9, 27705-28, 1988-03 ####[facility] [id number] [place] [address] [place] Sodium [Moles/Vol] 136 mmol/L Normal 136-144 [facility] Comment on above: Order Comment: Uday covington Type: BLOOD SPECIMENOrdering Facility: [facility] Address: [address] [place] [address] Performed By: #### 1 9123-9, 27705-28, , 1988-03 ####[facility]CL[facility] [id number] [place] [address] [place] Urea nitrogen [Mass/Vol] 14 mg/dL Normal 7-21 [facility] Comment on above: Order Comment: Speci men Type: BLOOD SPECIMENOrdering Facility: [facility] Address: [address] [place] [address] [place] [phone] Performed By: #### 1 9123-9, 2776-1, 56971-5, 1988-03 ####[facility]CL[facility] [id number] [place] [address] [place] Anion gap [Moles/Vol] 11 mmol/L Normal 9-18 [facility] Comment on above: Order Comment: Speci men Type: BLOOD SPECIMENOrdering Facility: [facility] Address: [address] [place], [place] [address] Performed By: #### 2 4320-12, 1988-03, 2776-11, ####[facility]CL[facility] [id number] [place] [address] [place] Calcium [Mass/Vol] 9.0 mg/dL Normal 8.5-10.2 [facility] Comment on above: Order Comment: Speci men Type: BLOOD SPECIMENOrdering Facility: [facility] Address: [address] [place], [place] [phone] Performed By: #### 2 4320-12, 1988-03, 2776-11, ####[facility]CLIA [id number] [place] [address] [place] Chloride [Moles/Vol] 102 mmol/L Normal 97-105 [facility] Comment on above: Order Comment: Speci men Type: BLOOD SPECIMENOrdering Facility: [facility] Address: [address] [place] [phone] Performed By: #### 2 4320-12, 1988-03, 2776-11, ####[facility]CL[facility] [id number] [facility] [address] [address] [place] CO2 [Moles/Vol] 24 mmol/L Normal 22-30 [facility] Comment on above: Order Comment: Speci men Type: BLOOD SPECIMENOrdering Facility: [facility] Address: [place] [address] Performed By: #### 2 4320-12, 1988-03, 2776-11, ####[facility]CL[facility] [id number] [address] [place] Creatinine [Mass/Vol] 0.80 mg/dL Normal 0.58-0.96 [facility] Comment on above: Order Comment: Speci men Type: BLOOD SPECIMENOrdering Facility: [facility] Address: [address] [place] [address] Performed By: #### 2 4320-12, 1988-03, 2776-11, ####[facility] [id number] [address] STATES OF [facility] ESTIMATED GLOMERULAR FILTRATION RATE 96 mL/min/1.73m??? Normal >=60 [facility] Comment on above: Order Comment: Speci men Type: BLOOD SPECIMENOrdering Facility: [facility] Address: [address] [place] [address] Result Comment: Abbey mated Glomerular Filtration Rate [...] GFR. Performed By: #### 2 4320-12, 1988-03, 2776-11, ####[facility] [id number] [place] [address] [place] Glucose [Mass/Vol] 131 mg/dL High 74-99 [facility] Comment on above: Order Comment: Speci men Type: BLOOD SPECIMENOrdering Facility: [facility] Address: [place] [address] Result Comment: The [place] Diabetes Association (ADA) provides guidance for cutoff [...] Standards of Medical Care in Diabetes 2016, [place] [employer]. Diabetes Care. 2016.39(Suppl 1). Performed By: #### 2 4320-12, 1988-03, 2776-11, ####[facility]CLIA [id number] [place] [address] [place] Potassium [Moles/Vol] 4.3 mmol/L Normal 3.7-5.1 [facility] Comment on above: Order Comment: Speci men Type: BLOOD SPECIMENOrdering Facility: [facility] Address: [address] [place] [address] Performed By: #### 2 4320-12, 1988-03, ####[facility] [id number] [place] [address] [place] Sodium [Moles/Vol] 137 mmol/L Normal 136-144 [facility] Comment on above: Order Comment: Speci men Type: BLOOD SPECIMENOrdering Facility: [facility] Address: [address] [place] [address] Performed By: #### 2 4320-12, 1988-03, 2776-11, ####[facility]CL[facility] [id number] [address] [address] [place] Urea nitrogen [Mass/Vol] 8 mg/dL Normal 7-21 [facility] Comment on above: Order Comment: Speci men Type: BLOOD SPECIMENOrdering Facility: [facility] Address: [address] [place] [address] Performed By: #### 2 4321-2, 1987-5, 2777-1, 50331-7 ####[facility] [id number] [place] [address] [place] CASE MGT INIT ASSESon 2022 CASE MGT INIT ASSES Normal [facility] CBC W Auto Differential pane l (Bld)on 2023 Basophils (Bld) [#/Vol] 0.03 10*3/uL Normal <0.11 [facility] Comment on above: Order Comment: Speci men Type: BLOOD SPECIMENOrdering Facility: [facility] Address: [address] [place] [address] Performed By: #### 5 7021-8 ####[facility] [id number] [place] [address] [place] Basophils/100 WBC (Bld) 0.3 % Normal [facility] Comment on above: Order Comment: Speci men Type: BLOOD SPECIMENOrdering Facility: [facility] Address: [address] [place] [address] Performed By: #### 5 7021-8 ####[facility] [id number] [place] [address] [place] Differential cell count method Nom (Bld) Auto Normal [facility] Comment on above: Order Comment: Speci men Type: BLOOD SPECIMENOrdering Facility: [facility] Address: [address] [place], [place] [address] Performed By: #### 5 7021-8 ####[facility] [id number] [place] [address] [place] Eosinophils (Bld) [#/Vol] 0.03 10*3/uL Normal <0.46 [facility] Comment on above: Order Comment: Speci men Type: BLOOD SPECIMENOrdering Facility: [facility] Address: [address] [place] [address] Performed By: #### 5 7021-8 ####[facility] [id number] [place] [address] [place] Eosinophils/100 WBC (Bld) 0.3 % Normal [facility] Comment on above: Order Comment: Speci men Type: BLOOD SPECIMENOrdering Facility: [facility] Address: [address] [place] [address] Performed By: #### 5 7021-8 ####[facility] [id number] [place] [address] [place] Erythrocyte distribution width (RBC) [Ratio] 13.5 % Normal 11.5-15.0 [facility] Comment on above: Order Comment: Speci men Type: BLOOD SPECIMENOrdering Facility: [facility] Address: [address] Performed By: #### 5 7021-8 ####[facility] [id number] [place] [address] [place] Hematocrit (Bld) [Volume fraction] 34.8 % Low 36.0-46.0 [facility] Comment on above: Order Comment: Speci men Type: BLOOD SPECIMENOrdering Facility: [facility] Address: [address] Performed By: #### 5 7021-8 ####[facility] [id number] [place] [address] [place] Hemoglobin (Bld) [Mass/Vol] 11.6 g/dL Normal 11.5-15.5 [facility] Comment on above: Order Comment: Speci men Type: BLOOD SPECIMENOrdering Facility: [facility] Address: [address] Performed By: #### 5 7021-8 ####[facility] [id number] [place] [address] [place] Immature granulocytes (Bld) [#/Vol] 0.06 10*3/uL Normal <0.10 [facility] Comment on above: Order Comment: Speci men Type: BLOOD SPECIMENOrdering Facility: [facility] Address: [address] [place] [address] Performed By: #### 5 7021-8 ####[facility] [id number] [address] [place] Immature granulocytes/100 WBC (Bld) 0.5 % Normal [facility] Comment on above: Order Comment: Speci men Type: BLOOD SPECIMENOrdering Facility: [facility] Address: [address] [place] [address] Performed By: #### 5 7021-8 ####[facility] [id number] [address] [place] Lymphocytes (Bld) [#/Vol] 0.85 10*3/uL Low 1.00-4.00 [facility] Comment on above: Order Comment: Speci men Type: BLOOD SPECIMENOrdering Facility: [facility] Address: [address] [place] [address] Performed By: #### 5 7021-8 ####[facility] [id number] [address] [place] Lymphocytes/100 WBC (Bld) 7.4 % Normal [facility] Comment on above: Order Comment: Speci men Type: BLOOD SPECIMENOrdering Facility: [facility] Address: [address] [place] [address] Performed By: #### 5 7021-8 ####[facility] [id number] [place] [address] [place] MCH (RBC) [Entitic mass] 30.8 pg Normal 26.0-34.0 [facility] Comment on above: Order Comment: Speci men Type: BLOOD SPECIMENOrdering Facility: [facility] Address: [address] [place], [place] [address] Performed By: #### 5 7021-8 ####[facility] [id number] [place] [address] [place] MCHC (RBC) [Mass/Vol] 33.3 g/dL Normal 30.5-36.0 [facility] Comment on above: Order Comment: Speci men Type: BLOOD SPECIMENOrdering Facility: [facility] Address: [address] [place], [place] [address] Performed By: #### 5 7021-8 ####[facility] [id number] [place] [address] [place] MCV (RBC) [Entitic vol] 92.3 fL Normal 80.0-100.0 [facility] Comment on above: Order Comment: Speci men Type: BLOOD SPECIMENOrdering Facility: [facility] Address: [address] [address] [place], [place] [address] Performed By: #### 5 7021-8 ####[facility] [id number] [place] [address] [place] Monocytes (Bld) [#/Vol] 0.81 10*3/uL Normal <0.87 [facility] Comment on above: Order Comment: Speci men Type: BLOOD SPECIMENOrdering Facility: [facility] Address: [address] Performed By: #### 5 7021-8 ####[facility] [id number] [address] [place] Monocytes/100 WBC (Bld) 7.1 % Normal [facility] Comment on above: Order Comment: Speci men Type: BLOOD SPECIMENOrdering Facility: [facility] Address: [address] [place], [place] [address] Performed By: #### 5 7021-8 ####[facility] [id number] [place] [address] [place] Neutrophils (Bld) [#/Vol] 9.66 10*3/uL High 1.45-7.50 [facility] Comment on above: Order Comment: Speci men Type: BLOOD SPECIMENOrdering Facility: [facility] Address: [address] Performed By: #### 5 7021-8 ####[facility] [id number] [place] [address] [place] Neutrophils/100 WBC (Bld) 84.4 % Normal [facility] Comment on above: Order Comment: Speci men Type: BLOOD SPECIMENOrdering Facility: [facility] Address: [address] Performed By: #### 5 7021-8 ####[facility] [id number] [place] [address] [place] Nucleated RBC (Bld) [#/Vol] 10*3/uL Normal <0.01 [facility] Comment on above: Order Comment: Speci men Type: BLOOD SPECIMENOrdering Facility: [facility] Address: [address] [place] [address] Performed By: #### 5 7021-8 ####[facility] [id number] [place] [address] [place] Nucleated RBC/100 WBC (Bld) [Ratio] 0.0 /100 WBC Normal [facility] Comment on above: Order Comment: Speci men Type: BLOOD SPECIMENOrdering Facility: [facility] Address: [address] [place] [address] Performed By: #### 5 7021-8 ####[facility] [id number] [address] [id number] [address] [place] Platelet mean volume (Bld) [Entitic vol] 9.8 fL Normal 9.0-12.7 [facility] Comment on above: Order Comment: Speci men Type: BLOOD SPECIMENOrdering Facility: [facility] Address: [address] [place] [address] Performed By: #### 5 7021-8 ####[facility] [id number] [place] [address] [place] Platelets (Bld) [#/Vol] 226 10*3/uL Normal 150-400 [facility] Comment on above: Order Comment: Speci men Type: BLOOD SPECIMENOrdering Facility: [facility] Address: [address] [place], [place] [address] Performed By: #### 5 7021-8 ####[facility] [id number] [place] [address] [place] RBC (Bld) [#/Vol] 3.77 10*6/uL Low 3.90-5.20 [facility] Comment on above: Order Comment: Speci men Type: BLOOD SPECIMENOrdering Facility: [facility] Address: [address] [place], [place] [address] Performed By: #### 5 7021-8 ####[facility] [id number] [place] [address] [place] WBC (Bld) [#/Vol] 11.44 10*3/uL High 3.70-11.00 [facility] Comment on above: Order Comment: Speci men Type: BLOOD SPECIMENOrdering Facility: [facility] Address: [address] [place], [place] [address] Performed By: #### 5 7021-8 ####[facility] [id number] [place] [address] [place] Basophils (Bld) [#/Vol] 10*3/uL Normal <0.11 [facility] Comment on above: Order Comment: Speci men Type: BLOOD SPECIMENOrdering Facility: [facility] Address: [address] Performed By: #### 5 7021-8 ####[facility] [id number] [address] [place] Basophils/100 WBC (Bld) 0.2 % Normal [facility] Comment on above: Order Comment: Speci men Type: BLOOD SPECIMENOrdering Facility: [facility] Address: [address] [place] [place] [address] Performed By: #### 5 7021-8 ####[facility] [id number] [place] [address] [place] Differential cell count method Nom (Bld) Auto Normal [facility] Comment on above: Order Comment: Speci men Type: BLOOD SPECIMENOrdering Facility: [facility] Address: [address] [place], [place] [address] Performed By: #### 5 7021-8 ####[facility] [id number] [place] [address] [place] Eosinophils (Bld) [#/Vol] 10*3/uL Normal <0.46 [facility] Comment on above: Order Comment: Speci men Type: BLOOD SPECIMENOrdering Facility: [facility] Address: [address] Performed By: #### 5 7021-8 ####[facility] [id number] [address] [place] Eosinophils/100 WBC (Bld) 0.0 % Normal [facility] Comment on above: Order Comment: Speci men Type: BLOOD SPECIMENOrdering Facility: [facility] Address: [address] [place], [place] [address] Performed By: #### 5 7021-8 ####[facility] [id number] [place] [address] [place] Erythrocyte distribution width (RBC) [Ratio] 13.5 % Normal 11.5-15.0 [facility] Comment on above: Order Comment: Speci men Type: BLOOD SPECIMENOrdering Facility: [facility] Address: [address] [place] [address] Performed By: #### 5 7021-8 ####[facility] [id number] [place] [address] [place] Hematocrit (Bld) [Volume fraction] 39.6 % Normal 36.0-46.0 [facility] Comment on above: Order Comment: Speci men Type: BLOOD SPECIMENOrdering Facility: [facility] Address: [address] [place] [address] Performed By: #### 5 7021-8 ####[facility] [id number] [place] [address] [place] Hemoglobin (Bld) [Mass/Vol] 13.0 g/dL Normal 11.5-15.5 [facility] Comment on above: Order Comment: Speci men Type: BLOOD SPECIMENOrdering Facility: [facility] Address: [address] [place], [place] [address] Performed By: #### 5 7021-8 ####[facility] [id number] [place] [address] [place] Immature granulocytes (Bld) [#/Vol] 0.07 10*3/uL Normal <0.10 [facility] Comment on above: Order Comment: Speci men Type: BLOOD SPECIMENOrdering Facility: [facility] Address: [address] [place], [place] [address] Performed By: #### 5 7021-8 ####[facility] [id number] [place] [address] [place] Immature granulocytes/100 WBC (Bld) 0.5 % Normal [facility] Comment on above: Order Comment: Speci men Type: BLOOD SPECIMENOrdering Facility: [facility] Address: [address] [address] Performed By: #### 5 7021-8 ####[facility] [id number] [place] [address] [place] Lymphocytes (Bld) [#/Vol] 0.36 10*3/uL Low 1.00-4.00 [facility] Comment on above: Order Comment: Speci men Type: BLOOD SPECIMENOrdering Facility: [facility] Address: [address] [place] [address] Performed By: #### 5 7021-8 ####[facility] [id number] [address] [place] Lymphocytes/100 WBC (Bld) 2.8 % Normal [facility] Comment on above: Order Comment: Speci men Type: BLOOD SPECIMENOrdering Facility: [facility] Address: [address] [place], [place] [address] Performed By: #### 5 7021-8 ####[facility] [id number] [place] [address] [place] MCH (RBC) [Entitic mass] 31.0 pg Normal 26.0-34.0 [facility] Comment on above: Order Comment: Speci men Type: BLOOD SPECIMENOrdering Facility: [facility] Address: [address] Performed By: #### 5 7021-8 ####[facility] [id number] [place] [address] [place] MCHC (RBC) [Mass/Vol] 32.8 g/dL Normal 30.5-36.0 [facility] Comment on above: Order Comment: Speci men Type: BLOOD SPECIMENOrdering Facility: [facility] Address: [address] [place], [place] [address] Performed By: #### 5 7021-8 ####[facility] [id number] [place] [address] [place] MCV (RBC) [Entitic vol] 94.5 fL Normal 80.0-100.0 [facility] Comment on above: Order Comment: Speci men Type: BLOOD SPECIMENOrdering Facility: [facility] Address: [address] [place], [place] [address] Performed By: #### 5 7021-8 ####[facility] [id number] [place] [address] [place] Monocytes (Bld) [#/Vol] 0.17 10*3/uL Normal <0.87 [facility] Comment on above: Order Comment: Speci men Type: BLOOD SPECIMENOrdering Facility: [facility] Address: [address] [place], [place] [address] Performed By: #### 5 7021-8 ####[facility] [id number] [address] [place] Monocytes/100 WBC (Bld) 1.3 % Normal [facility] Comment on above: Order Comment: Speci men Type: BLOOD SPECIMENOrdering Facility: [facility] Address: [address] [place] [address] Performed By: #### 5 7021-8 ####[facility] [id number] [place] [address] [place] Neutrophils (Bld) [#/Vol] 12.36 10*3/uL High 1.45-7.50 [facility] Comment on above: Order Comment: Speci men Type: BLOOD SPECIMENOrdering Facility: [facility] Address: [address] [place], [place] [address] Performed By: #### 5 7021-8 ####[facility] [id number] [place] [address] [place] Neutrophils/100 WBC (Bld) 95.2 % Normal [facility] Comment on above: Order Comment: Speci men Type: BLOOD SPECIMENOrdering Facility: [facility] Address: [address] [place] [address] Performed By: #### 5 7021-8 ####[facility] [id number] [place] [address] [place] Nucleated RBC (Bld) [#/Vol] 10*3/uL Normal <0.01 [facility] Comment on above: Order Comment: Speci men Type: BLOOD SPECIMENOrdering Facility: [facility] Address: [address] [place], [place] [address] Performed By: #### 5 7021-8 ####[facility] [id number] [place] [address] [place] Nucleated RBC/100 WBC (Bld) [Ratio] 0.0 /100 WBC Normal [facility] Comment on above: Order Comment: Speci men Type: BLOOD SPECIMENOrdering Facility: [facility] Address: [address] [place], [place] [address] Performed By: #### 5 7021-8 ####[facility] [id number] [place] [address] [place] Platelet mean volume (Bld) [Entitic vol] 9.9 fL Normal 9.0-12.7 [facility] Comment on above: Order Comment: Speci men Type: BLOOD SPECIMENOrdering Facility: [facility] Address: [address] [place] [address] Performed By: #### 5 7021-8 ####[facility] [id number] [place] [address] [place] Platelets (Bld) [#/Vol] 234 10*3/uL Normal 150-400 [facility] Comment on above: Order Comment: Speci men Type: BLOOD SPECIMENOrdering Facility: [facility] Address: [address] [place] [address] Performed By: #### 5 7021-8 ####[facility] [id number] [place] [address] [place] RBC (Bld) [#/Vol] 4.19 10*6/uL Normal 3.90-5.20 [facility] Comment on above: Order Comment: Speci men Type: BLOOD SPECIMENOrdering Facility: [facility] Address: [address] [place] [address] Performed By: #### 5 7021-8 ####[facility] [id number] [place] [address] [place] WBC (Bld) [#/Vol] 12.98 10*3/uL High 3.70-11.00 [facility] Comment on above: Order Comment: Speci men Type: BLOOD SPECIMENOrdering Facility: [facility] Address: [address] [place] [address] Performed By: #### 5 7021-8 ####[facility] [id number] [place] [address] [place] CRP SerPl-mCncon 2023 CRP [Mass/Vol] 1.5 mg/dL High <0.9 [facility] Comment on above: Order Comment: Speci men Type: BLOOD SPECIMENOrdering Facility: [facility] Address: [address] [place] [address] Performed By: #### 1 9123-9, 2777-1, 66397-5, 1988- ####[facility] [id number] [place] [address] [place] CRP [Mass/Vol] 0.5 mg/dL Normal <0.9 [facility] Comment on above: Order Comment: Speci men Type: BLOOD SPECIMENOrdering Facility: [facility] Address: [address] [place] [address] Performed By: #### 2 432-2, 1988-03, 2776-11, ####[facility] [id number] [address] [address] [place] Magnesium SerPl-mCncon 02-15 Magnesium [Mass/Vol] 2.1 mg/dL Normal 1.7-2.3 [facility] Comment on above: Order Comment: Speci men Type: BLOOD SPECIMENOrdering Facility: [facility] Address: [address] [place], [place] [address] Performed By: #### 1 [address]1239, 2776-11, , 1988-03 ####[facility] [id number] [place] [address] [place] Magnesium [Mass/Vol] 1.8 mg/dL Normal 1.7-2.3 [facility] Comment on above: Order Comment: Speci men Type: BLOOD SPECIMENOrdering Facility: [facility] Address: [address] [place], [place] [address] Performed By: #### 2 4320-12, 1988-03, 2776-11, ####[facility] [id number] [place] [address] [place] PT EDon 2023 PT ED Normal [facility] Phosphate SerPl-mCncon 02-15 Phosphate [Mass/Vol] 2.6 mg/dL Low 2.7-4.8 [facility] Comment on above: Order Comment: Speci men Type: BLOOD SPECIMENOrdering Facility: [facility] Address: [address] [place] [address] Performed By: #### 1 9123-9, 2776-11, , 1988-03 ####[facility] [id number] [place] [address] [place] Phosphate [Mass/Vol] 3.8 mg/dL Normal 2.7-4.8 [facility] Comment on above: Order Comment: Speci men Type: BLOOD SPECIMENOrdering Facility: [facility] Address: [address] [place] [address] Performed By: #### 2 4321-2, 1987-5, 2777-1, 58312-0 ####[facility] [id number] [place] [address] [place] ANES POSTPROC EVALon 023 ANES POSTPROC EVAL Normal [facility] ANES PRE-OPon 02-14-2023 ANES PRE-OP Normal [facility] BRIEF OP NOTon 02-14-2023 BRIEF OP NOT Normal [facility] OPERATIVE NOon 02-14-2023 OPERATIVE NO Normal [facility] SURGICAL PATHOLOGYon 023 CASE REPORT Normal [facility] Comment on above: Order Comment: Speci men Type: TISSUE SPECIMENOrdering Facility: [facility] Address: [address] [place] [address] Result Comment: Surg [facility] Pathology Report Case: [id number] Provider: Hilary Shaffer MD Collected: 02/14/2023 03:58 PMOrdering Location: Admitting Received: 02/14/2023 06:01 PMPathologist: DAX Lightpecimen: COLON RESECTION, ileocolic resection Performed By: #### S ####[facility] [id number] [place] [address] [place] CLINICAL HISTORY Normal [facility] Comment on above: Order Comment: Speci men Type: TISSUE SPECIMENOrdering Facility: [facility] Address: [address] [place] [address] Result Comment: Pre- op diagnosis:Crohn's disease of small and large intestines with complication (HCC) [K50.819] Performed By: #### S ####[facility] [id number] [address] DIAGNOSIS COMMENT Normal [facility] Comment on above: Order Comment: Uday covington Type: TISSUE SPECIMENOrdering Facility: [facility] Address: [address] [id number] Result Comment: Spec ial stains for [employer] [...] been determined by the performing laboratory within [facility]???s [facility] Pathology and Laboratory Medicine [place] ([facility], [facility], [facility], [facility], [facility], or [facility]) in a manner consistent with CLIA requirements. One or more of these tests have not been cleared or approved by the FDA. [facility] is regulated under CLIA as qualified to perform high-complexity testing. These tests are used for clinical purposes. They should not be regarded as investigational or for research. Positive and negative controls stain appropriately. Performed By: #### S ####[facility] [id number] [address] FINAL DIAGNOSIS Normal [facility] Comment on above: Order Comment: Uday covington Type: TISSUE SPECIMENOrdering Facility: [facility] Address: [address] [place] [address] Result Comment: A. I leum, colon, and appendix, resection:-Segment of ileum and colon with chronic active enteritis, ulcer, stricture, non-necrotizing granuloma, and transmural inflammation; compatible with the patient's history of Crohn disease.-Negative for dysplasia.-Endometriosis involving serosa.-The surgical resection margins are negative for neutrophilic inflammation.-Five lymph nodes with no diagnostic abnormalities.-Appendix with no diagnostic abnormalities.KENIA/JESUS 02/22/23 Performed By: #### S ####[facility] [id number] [address] FINAL PERFORMING LAB Normal [facility] Comment on above: Order Comment: Speci men Type: TISSUE SPECIMENOrdering Facility: [facility] Address: [address] [place] [address] Result Comment: Diag nostic interpretation performed at [facility], [address] [address] CLIA# [id number] Director: Scot Poole M.D. Performed By: #### S ####[facility] [id number] [address] GROSS DESCRIPTION Normal [facility] Comment on above: Order Comment: Speci men Type: TISSUE SPECIMENOrdering Facility: [facility] Address: [address] [address] Result Comment: A. C OLON RESECTIONReceived in [...] lumen filled with green fluid and pink-claire mucosa.Compliance Aide sections are submitted as follows:A1: Proximal and distal mucosal margins, perpendicularA2-A5: Compliance Aide strictureA6: Bisected appendiceal tip and signs and displays sales representative cross-sectionA7: 5 possible lymph nodes, submitted in totoGross examination performed at [facility], [address] 02/15/23 6:54 PM Performed By: #### S ####[facility] [id number] [address] [place] 25(OH)D3 SerPl-ncon 2022 25-hydroxyvitamin D3 [Mass/Vol] 54.3 ng/mL Normal 31.0-80.0 [facility] Comment on above: Order Comment: Speci men Type: BLOOD SPECIMENOrdering Facility: [facility] Address: [address] [place] [address] Performed By: #### 1 989-3 ####[facility] [id number] [address] LYLA BY IFA WITH REFLEXon LYLA PATTERN [employer] Normal [facility] Comment on above: Order Comment: Speci men Type: BLOOD SPECIMENOrdering Facility: [facility] Address: [address] [address] Performed By: #### 1 1565-9, 86742-2, 21479-4, 11454-2, 07506-9, ANAIFR, 35434-7, 83260-4, 13194-8, 39248-0 ####[facility] [id number] [address] [place] LYLA TITER >1:1280 Normal [facility] Comment on above: Order Comment: Speci men Type: BLOOD SPECIMENOrdering Facility: [facility] Address: [address] [place] [address] Performed By: #### 1 1565-9, 62646-1, 35114-8, 07045-2, 65693-5, ANAIFR, 16057-0, 95072-6, 25700-9, 91547-2 ####[facility] [id number] [place] [address] [place] Nuclear Ab IF (S) [Titer] Positive Abnormal Negative [facility] Comment on above: Order Comment: Speci men Type: BLOOD SPECIMENOrdering Facility: [facility] Address: [address] [place] [address] Result Comment: Anti -nuclear antibody test is used as an aid in diagnosis of systemic autoimmune diseases. Where positive and clinically warranted, follow-up using disease-specific testing is recommended. Low positive titers are not uncommon with advanced age, certain chronic infections, and malignancies among others.Test methodology: Indirect fluorescence immunoassay (IFA) using HEp-2 cells. Performed By: #### 1 1565-9, 30137-3, 17985-4, 84985-2, 26214-8, ANAIFR, 34274-4, 35617-9, 42114-7, 29314-6 ####[facility] [id number] [place] [address] [place] BETA 2 GLYCOPROTEIN, IGGon 0 02-11-2023 Beta 2 glycoprotein 1 IgG IA Qn <9 Normal <20 [facility] Comment on above: Order Comment: Speci men Type: BLOOD SPECIMENOrdering Facility: [facility] Address: [address] [place] [address] Result Comment: <20 [facility]U Fibpcnhw65-36 SGU Low Positive>80 SGU High PositiveThese results were obtained with the oboxo QUANTA Lite B2 GPI IgG DONTRELL. B2 GPI IgG values obtained with different manufacturers' assay methods may not be used interchangeably. The magnitude of the reported IgG levels cannot be correlated to an endpoint titer. Performed By: #### 3 3935-8, BETA2G, BETA2M, 5076-5, CARDIG ####[facility] [id number] [place] [address] [place] BETA 2 GLYCOPROTEIN, IGMon 0 02-11-2023 Beta 2 glycoprotein 1 IgM IA Qn 38 [facility] High <20 [facility] Comment on above: Order Comment: Speci men Type: BLOOD SPECIMENOrdering Facility: [facility] Address: [address] [place] [address] Result Comment: <20 [facility] Xcortpbm23-31 [facility] Low Positive>80 [facility] High positiveThese results were obtained with the [employer] QUANTA Lite B2 GPI IgM DONTRELL. B2 GPI IgM values obtained with different manufacturers' assay methods may not be used interchangeably. The magnitude of the reported IgM levels cannot be correlated to an endpoint titer. Performed By: #### 3 3935-8, BETA2G, BETA2M, 5076-5, JUSTUS ####[facility] [id number] [address] CARDIOLIPIN IGG ABSon 2022 Cardiolipin IgG IA Qn (S) <9.0 Normal <15.0 [facility] Comment on above: Order Comment: Speci men Type: BLOOD SPECIMENOrdering Facility: [facility] Address: [address] [place] [address] Result Comment: <15 GPL [id number] GPL Indeterminate>20 GPL PositiveThe following results were obtained with the [employer] QUANTA Lite HARPREET IgG III DONTRELL. Cardiolipin IgG values obtained with the different manufacturers' assay methods may not be used interchangeably. The magnitude of the reported IgG levels cannot be correlated to an endpoint titer. Performed By: #### 3 3935-8, BETA2G, BETA2M, 5076-5, JUSTUS ####[facility] [id number] [address] [place] CARDIOLIPIN IGM ABSon 2022 Cardiolipin IgM IA Qn (S) 17.9 MPL High <12.5 [facility] Comment on above: Order Comment: Speci men Type: BLOOD SPECIMENOrdering Facility: [facility] Address: [address] [place] [address] Result Comment: <12. 5 MPL Lqdpcfao20.5-20 MPL Indeterminate>20 MPL PositiveThe following results were obtained with the Syndexa PharmaceuticalsA Lite HARPREET IgM III DONTRELL. Cardiolipin IgM values obtained with the different manufacturers' assay methods may not be used interchangeably. The magnitude of the reported IgM levels cannot be correlated to an endpoint titer.??? Performed By: #### C GORGE ####[facility] LABIA [id number] [place] [address] [place] CBC panel Auto (Bld)on 02-11 Erythrocyte distribution width (RBC) [Ratio] 13.6 % Normal 11.5-15.0 [facility] Comment on above: Order Comment: Speci men Type: BLOOD SPECIMENOrdering Facility: [facility] Address: [address] [place] [address] Performed By: #### 5 8410-2 ####[facility]IA [id number] [place] [address] [place] Hematocrit (Bld) [Volume fraction] 42.5 % Normal 36.0-46.0 [facility] Comment on above: Order Comment: Speci men Type: BLOOD SPECIMENOrdering Facility: [facility] Address: [address] [place] [address] Performed By: #### 5 8410-2 ####[facility]IA [id number] [address] [place] Hemoglobin (Bld) [Mass/Vol] 13.6 g/dL Normal 11.5-15.5 [facility] Comment on above: Order Comment: Speci men Type: BLOOD SPECIMENOrdering Facility: [facility] Address: [address] [place] [address] Performed By: #### 5 8410-2 ####[facility]IA [id number] [address] STATES [facility] MCH (RBC) [Entitic mass] 30.4 pg Normal 26.0-34.0 [facility] Comment on above: Order Comment: Speci men Type: BLOOD SPECIMENOrdering Facility: [facility] Address: [address] [place] [address] Performed By: #### 5 8410-2 ####[facility]IA [id number] [address] MCHC (RBC) [Mass/Vol] 32.0 g/dL Normal 30.5-36.0 [facility] Comment on above: Order Comment: Speci men Type: BLOOD SPECIMENOrdering Facility: [facility] Address: [address] [place] [address] Performed By: #### 5 8410-2 ####[facility]IA [id number] [address] MCV (RBC) [Entitic vol] 94.9 fL Normal 80.0-100.0 [facility] Comment on above: Order Comment: Speci men Type: BLOOD SPECIMENOrdering Facility: [facility] Address: [address] [place] [address] Performed By: #### 5 8410-2 ####[facility]IA [id number] [address] [place] Nucleated RBC (Bld) [#/Vol] 10*3/uL Normal <0.01 [facility] Comment on above: Order Comment: Speci men Type: BLOOD SPECIMENOrdering Facility: [facility] Address: [address] [place] [address] Performed By: #### 5 8410-2 ####[facility] [id number] [address] [place] Platelet mean volume (Bld) [Entitic vol] 9.6 fL Normal 9.0-12.7 [facility] Comment on above: Order Comment: Speci men Type: BLOOD SPECIMENOrdering Facility: [facility] Address: [address] [place], [place] [address] Performed By: #### 5 8410-2 ####[facility] [id number] [place] [address] [place] Platelets (Bld) [#/Vol] 305 10*3/uL Normal 150-400 [facility] Comment on above: Order Comment: Speci men Type: BLOOD SPECIMENOrdering Facility: [facility] Address: [address] [place], [place] [address] Performed By: #### 5 8410-2 ####[facility] [id number] [place] [address] [place] RBC (Bld) [#/Vol] 4.48 10*6/uL Normal 3.90-5.20 [facility] Comment on above: Order Comment: Speci men Type: BLOOD SPECIMENOrdering Facility: [facility] Address: [address] [place], [place] [address] Performed By: #### 5 8410-2 ####[facility]IA [id number] [place] [address] [place] WBC (Bld) [#/Vol] 8.04 10*3/uL Normal 3.70-11.00 [facility] Comment on above: Order Comment: Speci men Type: BLOOD SPECIMENOrdering Facility: [facility] Address: [address] [place], [place] [address] Performed By: #### 5 8410-2 ####[facility]IA [id number] [place] [address] [place] CNCNPATEDon 02-11-2023 CNCNPATED Normal [facility] CNOVon 02-11-2023 CNOV Normal [facility] CONFIRM BLOOD TYPEon 023 ABO B Normal [facility] Comment on above: Order Comment: Speci men Type: BLOOD SPECIMENOrdering Facility: [facility] Address: [address] [address] Performed By: #### C ONABO ####CC [facility] BLOOD BANKIA [id number] [address] Rh Nom (Bld) Positive Normal [facility] Comment on above: Order Comment: Speci men Type: BLOOD SPECIMENOrdering Facility: [facility] Address: [address] [address] Performed By: #### C ONABO ####CC [facility] BLOOD [facility] [id number] [address] [place] CRP SerPl-mCncon 02-11-2023 CRP [Mass/Vol] mg/L Normal <0.9 [facility] Comment on above: Order Comment: Speci men Type: BLOOD SPECIMENOrdering Facility: [facility] Address: [address] [place] [address] Performed By: #### 2 4323-8, 09415-1, 2731-8, 1988-03 ####[facility] [id number] [address] Cardiolipin IgA Ser IA-aCnco n 02-11-2023 Cardiolipin IgA IA Qn (S) <9.0 Normal <12.0 [facility] Comment on above: Order Comment: Speci men Type: BLOOD SPECIMENOrdering Facility: [facility] Address: [address] [place] [address] Result Comment: <12 APL Hgqkqxbe10-54 APL Indeterminate>20 APL PositiveThe following results were obtained with the oboxo QUANTA Lite HARPREET IgA III DONTRELL. Cardiolipin IgA values obtained with the different manufacturers' assay methods may not be used interchangeably. The magnitude of the reported IgA levels cannot be correlated to an endpoint titer. Performed By: #### 3 3935-8, BETA2G, BETA2M, 5076-5, CARDIG ####[facility]IA [id number] [place] [address] [place] Centromere Ab IF Ql (S)on Centromere Ab Qn (S) >8.0 High <1.0 [facility] Comment on above: Order Comment: Speci men Type: BLOOD SPECIMENOrdering Facility: [facility] Address: [address] [place] [address] Result Comment: Anti -centromere antibody is used as in aid in diagnosis of systemic sclerosis. Clinical correlation is required.Test Methodology: Multiplex flow immunoassay. Performed By: #### 1 1565-9, 29375-6, 72017-8, 32710-6, 86886-2, ANAIFR, 25571-0, 19305-7, 13963-6, 43936-8 ####[facility] LABIA [id number] [place] [address] [place] CENTROMERE AB QUAL Positive Abnormal Negative [facility] Comment on above: Order Comment: Speci men Type: BLOOD SPECIMENOrdering Facility: [facility] Address: [address] [place] [address] Performed By: #### 1 1565-9, 12146-4, 34879-7, 63703-3, 40636-4, ANAIFR, 44766-7, 55591-1, 21352-5, 77501-9 ####[facility]IA [id number] [place] [address] [place] Chromatin Ab Qnon 02-11-2023 CHROMATIN AB QUAL Negative Normal Negative [facility] Comment on above: Order Comment: Speci men Type: BLOOD SPECIMENOrdering Facility: [facility] Address: [address] [place] [address] Performed By: #### 1 1565-9, 27793-5, 17299-4, 15809-8, 53106-1, ANAIFR, 06937-1, 65165-9, 33044-9, 31810-6 ####[facility]CL[facility] [id number] [place] [address] [place] Chromatin Ab SerPl-aCncon Chromatin Ab Qn <0.2 Normal <1.0 [facility] Comment on above: Order Comment: Speci men Type: BLOOD SPECIMENOrdering Facility: [facility] Address: [address] [address] Result Comment: Test Methodology: Multiplex flow immunoassay. Performed By: #### 1 1565-9, 29686-2, 97070-5, 32722-7, 69982-2, ANAIFR, 98461-6, 09379-0, 11676-7, 97486-2 ####[facility] [id number] [address] [place] Comprehensive metabolic 2000 panelon 02-11-2023 Albumin [Mass/Vol] 4.4 g/dL Normal 3.9-4.9 [facility] Comment on above: Order Comment: Speci men Type: BLOOD SPECIMENOrdering Facility: [facility] Address: [address] [place] [address] Performed By: #### 2 4323-8, 97234-1, 2731-06, 1988-03 ####[facility] [id number] [place] [address] [place] ALP [Catalytic activity/Vol] 78 U/L Normal 34-123 [facility] Comment on above: Order Comment: Speci men Type: BLOOD SPECIMENOrdering Facility: [facility] Address: [address] [place], [place] [address] Performed By: #### 2 4323-8, 23828-7, 2731-06, 1988-03 ####[facility]IA [id number] [address] [place] ALT [Catalytic activity/Vol] 15 U/L Normal 7-38 [facility] Comment on above: Order Comment: Speci men Type: BLOOD SPECIMENOrdering Facility: [facility] Address: [address] [place], [place] [phone] Performed By: #### 2 4323-8, 92333-1, 2731-06, 1988-03 ####[facility]CL[facility] [id number] [place] [address] [place] Anion gap [Moles/Vol] 10 mmol/L Normal 9-18 [facility] Comment on above: Order Comment: Speci men Type: BLOOD SPECIMENOrdering Facility: [facility] Address: [address] [place], [place] [phone] Performed By: #### 2 432-8, 71398-4, 2731-06, 1988-03 ####[facility] LABIA [id number] [place] [address] [place] AST [Catalytic activity/Vol] 16 U/L Normal 13-35 [facility] Comment on above: Order Comment: Speci men Type: BLOOD SPECIMENOrdering Facility: [facility] Address: [address] [place], [place] [phone] Performed By: #### 2 432-8, 23171-7, 2731-06, 1988-03 ####[facility]CL[facility] [id number] [address] [address] [place] Bilirubin [Mass/Vol] 0.3 mg/dL Normal 0.2-1.3 [facility] Comment on above: Order Comment: Speci men Type: BLOOD SPECIMENOrdering Facility: [facility] Address: [address] [place], [place] [phone] Performed By: #### 2 4323-8, 68220-3, 2731-06, 1988-03 ####[facility]CL[facility] [id number] [address] [address] [place] Calcium [Mass/Vol] 9.5 mg/dL Normal 8.5-10.2 [facility] Comment on above: Order Comment: Speci men Type: BLOOD SPECIMENOrdering Facility: [facility] Address: [place] [address] Performed By: #### 2 4323-8, 18500-7, 2731-06, 1988-03 ####[facility]CLIA [id number] [place] [address] [place] Chloride [Moles/Vol] 102 mmol/L Normal 97-105 [facility] Comment on above: Order Comment: Speci men Type: BLOOD SPECIMENOrdering Facility: [facility] Address: [address] [place] [address] [place] [id number] Performed By: #### 2 4323-8, 40148-6, 2731-06, 1988-03 ####[facility]CL[facility] [id number] [place] [address] [place] CO2 [Moles/Vol] 27 mmol/L Normal 22-30 [facility] Comment on above: Order Comment: Speci men Type: BLOOD SPECIMENOrdering Facility: [facility] Address: [address] [place], [place] [phone] Performed By: #### 2 432-8, 41288-4, 2731-06, 1988-03 ####[facility]CL[facility] [id number] [place] [address] [place] Creatinine [Mass/Vol] 0.83 mg/dL Normal 0.58-0.96 [facility] Comment on above: Order Comment: Speci men Type: BLOOD SPECIMENOrdering Facility: [facility] Address: [place] [address] Performed By: #### 2 4323-8, 05089-9, 2731-06, 1988-03 ####[facility]CL[facility] [id number] [address] [address] [place] ESTIMATED GLOMERULAR FILTRATION RATE 92 mL/min/1.73m??? Normal >=60 [facility] Comment on above: Order Comment: Speci men Type: BLOOD SPECIMENOrdering Facility: [facility] Address: [address] [place] [address] Result Comment: Abbey mated Glomerular Filtration Rate [...] reflect actual GFR. Performed By: #### 2 4323-8, 57492-6, 1988-03 ####[facility] LABIA [id number] [place] [address] [place] Glucose [Mass/Vol] 102 mg/dL High 74-99 [facility] Comment on above: Order Comment: Uday covington Type: BLOOD SPECIMENOrdering Facility: [facility] Address: [address] [place] [address] Result Comment: The [place] [employer] Association (ADA) provides guidance for cutoff [...] Standards of Medical Care in Diabetes 2016, [place] [employer]. Diabetes Care. 2016.39(Suppl 1). Performed By: #### 2 4323-8, 52969-9, 1988-03 ####[facility] LABIA [id number] [place] [address] [place] Potassium [Moles/Vol] 4.2 mmol/L Normal 3.7-5.1 [facility] Comment on above: Order Comment: Uday covington Type: BLOOD SPECIMENOrdering Facility: [facility] Address: [address] [place], [place] [phone] Performed By: #### 2 4323-8, 13682-7, 2731-06, 1988-03 ####[facility] [id number] [place] [address] [place] Protein [Mass/Vol] 6.9 g/dL Normal 6.3-8.0 [facility] Comment on above: Order Comment: Speci men Type: BLOOD SPECIMENOrdering Facility: [facility] Address: [address] [place], [place] [address] Performed By: #### 2 4323-8, 77777-6, 2731-06, 1988-03 ####[facility] [id number] [place] [address] [place] Sodium [Moles/Vol] 139 mmol/L Normal 136-144 [facility] Comment on above: Order Comment: Speci men Type: BLOOD SPECIMENOrdering Facility: [facility] Address: [address] [place], [place] [address] Performed By: #### 2 4323-8, 23751-9, 2731-06, 1988-03 ####[facility] [id number] [place] [address] [place] Urea nitrogen [Mass/Vol] 11 mg/dL Normal 7-21 [facility] Comment on above: Order Comment: Speci men Type: BLOOD SPECIMENOrdering Facility: [facility] Address: [address] [place], [place] [address] Performed By: #### 2 4323-8, 83984-3, 2731-06, 1988-03 ####[facility]IA [id number] [place] [address] [place] Cyclic citrullinated peptide IgG Qnon 02-11-2023 CCP ANTIBODY IGG QUALITATIVE Negative Normal Negative [facility] Comment on above: Order Comment: Speci men Type: BLOOD SPECIMENOrdering Facility: [facility] Address: [address] [place] [address] Performed By: #### 3 3935-8, BETA2G, BETA2M, 5076-5, CARDIG ####[facility] [id number] [place] [address] [place] [id number] 02-11-2023 ECG01 Normal [facility] SHARRI Jo1 Ab Ser-aCncon 2022 Carmel-1 extractable nuclear Ab Qn (S) <0.2 Normal <1.0 [facility] Comment on above: Order Comment: Speci men Type: BLOOD SPECIMENOrdering Facility: [facility] Address: [address] [place] [address] Performed By: #### 1 1565-9, 75665-6, 19925-4, 55463-0, 97776-3, ANAIFR, 76642-7, 08365-3, 04895-0, 84305-7 ####[facility] [id number] [place] [address] [place] SHARRI BLANCHING MACHINE OPERATOR Ab Ser-aCncon 2022 Ribonucleoprotein extractable nuclear Ab Qn (S) <0.2 Normal <1.0 [facility] Comment on above: Order Comment: Speci men Type: BLOOD SPECIMENOrdering Facility: [facility] Address: [address] [place], [place] [address] Performed By: #### 1 1565-9, 06680-7, 51419-9, 92841-8, 95387-1, ANAIFR, 23287-3, 93109-3, 56162-3, 22043-0 ####[facility] [id number] [place] [address] [place] SHARRI SM IgG Ser-aCncon 2022 [place] extractable nuclear IgG Qn (S) <0.2 Normal <1.0 [facility] Comment on above: Order Comment: Speci men Type: BLOOD SPECIMENOrdering Facility: [facility] Address: [address] [place] [address] Performed By: #### 1 1565-9, 87946-6, 09804-8, 56709-1, 69160-8, ANAIFR, 81235-6, 14383-4, 44265-0, 00713-7 ####[facility] [id number] [address] [place] SHARRI SS-A Ab Ser-aCncon 02-11 Sjogrens syndrome-A extractable nuclear Ab Qn (S) <0.2 Normal <1.0 [facility] Comment on above: Order Comment: Speci men Type: BLOOD SPECIMENOrdering Facility: [facility] Address: [address] [place] [address] Result Comment: Test Methodology: Multiplex flow immunoassay. Performed By: #### 1 1565-9, 67444-5, 20715-4, 29502-8, 03303-9, ANAIFR, 00033-9, 46491-7, 22160-6, 44105-1 ####[facility] [id number] [address] [place] SHARRI SS-B Ab Ser-aCncon 02-11 Sjogrens syndrome-B extractable nuclear Ab Qn (S) <0.2 Normal <1.0 [facility] Comment on above: Order Comment: Speci men Type: BLOOD SPECIMENOrdering Facility: [facility] Address: [address] [place] [address] Result Comment: Anti -SSB (anti-La) antibody is used as an aid in diagnosis of a variety of systemic autoimmune diseases, especially for Sjogren's syndrome and systemic lupus erythematosus. Clinical correlation is required.Test Methodology: Multiplex flow immunoassay. Performed By: #### 1 1565-9, 83681-0, 64739-2, 40872-7, 17804-4, ANAIFR, 62540-7, 26768-8, 71996-6, 77166-8 ####[facility] [id number] [place] [address] [place] HISTORY PHYSICALon HISTORY PHYSICAL Normal [facility] Carmel-1 extractable nuclear Ab Qn (S)on 02-11-2023 CARMEL 1 ANTIBODY QUAL Negative Normal Negative [facility] Comment on above: Order Comment: Speci men Type: BLOOD SPECIMENOrdering Facility: [facility] Address: [address] [place] [address] Result Comment: Anti -CARMEL-1 antibody is used as an aid in diagnosis of polymyositis and dermatomyositis especially with pulmonary involvement. A negative result cannot rule out polymyositis or dermatomyositis. Clinical correlation is required.Test Methodology: Multiplex flow immunoassay. Performed By: #### 1 1565-9, 33588-5, 93346-5, 95371-0, 14330-3, ANAIFR, 57192-4, 38860-8, 84734-9, 17472-1 ####[facility] [id number] [place] [address] [place] LUPUS PANELon 02-11-2023 aPTT Coag (Bld) [Time] 33.7 s Normal 24.0-35.1 [facility] Comment on above: Order Comment: Speci men Type: BLOOD SPECIMENOrdering Facility: [facility] Address: [address] [place] [address] Performed By: #### L UPPL ####[facility] [id number] [place] [address] [place] aPTT W excess hexagonal phase phospholipid Coag (PPP) [Time] 48.2 seconds Normal 34.0-51.8 [facility] Comment on above: Order Comment: Speci men Type: BLOOD SPECIMENOrdering Facility: [facility] Address: [address] [place] [address] Performed By: #### L UPPL ####[facility] [id number] [place] Delta dRVVT Coag (PPP) [Time diff] 2.0 delta seconds Normal <7.1 [facility] Comment on above: Order Comment: Speci men Type: BLOOD SPECIMENOrdering Facility: [facility] Address: [address] [place] [address] Performed By: #### L UPPL ####[facility] [id number] [place] [address] [place] dRVVT Coag (PPP) [Time] 36.0 s Normal 32.0-45.7 [facility] Comment on above: Order Comment: Speci men Type: BLOOD SPECIMENOrdering Facility: [facility] Address: [address] [place] [address] Performed By: #### L UPPL ####[facility] [id number] [address] [place] dRVVT factor substitution immediately after 1:2 addition of normal plasma Coag (PPP) [Time] 36.6 seconds Normal 32.0-45.7 [facility] Comment on above: Order Comment: Speci men Type: BLOOD SPECIMENOrdering Facility: [facility] Address: [address] [place] [address] Performed By: #### L UPPL ####[facility] [id number] [place] [address] [place] dRVVT W excess hexagonal phase phospholipid actual/normal Coag (PPP) [Relative time] 46.2 seconds Normal 34.2-47.9 [facility] Comment on above: Order Comment: Speci men Type: BLOOD SPECIMENOrdering Facility: [facility] Address: [address] [place], [place] [id number] Performed By: #### L UPPL ####[facility] [id number] [place] [address] [place] [facility] [place] dRVVT/dRVVT.excess phospholipid Coag (PPP) [Ratio] 1.04 Normal <1.32 [facility] Comment on above: Order Comment: Uday covington Type: BLOOD SPECIMENOrdering Facility: [facility] Address: [address] [place] [address] Performed By: #### L UPPL ####[facility] [id number] [address] Lupus anticoagulant neutralization platelet Coag Ql (PPP) Negative Normal Negative [facility] Comment on above: Order Comment: Uday covington Type: BLOOD SPECIMENOrdering Facility: [facility] Address: [address] [place] [address] Performed By: #### L UPPL ####[facility] [id number] [address] [place] Thrombin time Coag (PPP) [Time] <16.8 Normal <18.6 [facility] Comment on above: Order Comment: Uday covington Type: BLOOD SPECIMENOrdering Facility: [facility] Address: [address] [place] [address] Performed By: #### L UPPL ####[facility] [id number] [address] [place] [facility] PT panel Coag (PPP)on 2022 INR Coag (PPP) [Relative time] 1.0 {INR} Normal 0.9-1.3 [facility] Comment on above: Order Comment: Uday covington Type: BLOOD SPECIMENOrdering Facility: [facility] Address: [address] [place] [address] Result Comment: An min K Antagonist (VKA) Therapeutic Range: INR 2 to 3 (Target INR of 2.5)Note: For patients treated with VKA drugs, such as warfarin, the [employer] 2012 Guideline recommends [...] 2.5 to 3.5 (target INR of 3).Hussein CORTEZ, et al. Chest 2012, 141:7S-47SEvelyn RA, et al. [facility] 2017, 70: 252-289 Performed By: #### 1 4979-9, 46465-1 ####[facility] [id number] [place] [address] [place] PT Coag (PPP) [Time] 9.9 s Normal 9.7-13.0 [facility] Comment on above: Order Comment: Speci men Type: BLOOD SPECIMENOrdering Facility: [facility] Address: [address] [place] [address] Performed By: #### 1 4979-9, 01906-3 ####[facility] [id number] [place] [address] [place] PTH-Intact SerPl-mCncon 01-26 Parathyrin.intact [Mass/Vol] 45 pg/mL Normal 15-65 [facility] Comment on above: Order Comment: Speci men Type: BLOOD SPECIMENOrdering Facility: [facility] Address: [address] [place] [address] Performed By: #### 2 4323-8, 73726-3, 2731-8, 1987- ####[facility] [id number] [place] [address] [place] Rheumatoid fact SerPl-aCncon 02-11-2023 Rheumatoid factor Qn [IU]/mL Normal <16 [facility] Comment on above: Order Comment: Speci men Type: BLOOD SPECIMENOrdering Facility: [facility] Address: [address] [place] [address] Performed By: #### 2 4323-8, 06268-4, 2731-8, 1988-5 ####[facility] [id number] [place] [address] [place] Ribonucleoprotein extractabl e nuclear Ab Qn (S)on 02-11-2023 ANTI-BLANCHING MACHINE OPERATOR QUAL Negative Normal Negative [facility] Comment on above: Order Comment: Speci men Type: BLOOD SPECIMENOrdering Facility: [facility] Address: [address] [place] [address] Performed By: #### 1 1565-9, 05475-1, 99684-1, 12408-2, 84376-5, ANAIFR, 48125-8, 02703-9, 02703-9, 92545-6 ####[facility] [id number] [place] [address] [place] RIBOSOMAL BLANCHING MACHINE OPERATOR QUAL Negative Normal Negative [facility] Comment on above: Order Comment: Speci [facility] Type: BLOOD SPECIMENOrdering Facility: [facility] Address: [address] [place] [address] Result Comment: Anti -Ribosomal RNA (Ribosomal P) antibody is used as an aid in diagnosis of systemic autoimmune diseases especially systemic lupus erythematosus and mixed connective tissue disease. Cross-reactivity with Anti-willingham antibody is not uncommon. Clinical correlation is required.Test Methodology: Multiplex flow immunoassay. Performed By: #### 1 1565-9, 18792-0, 99328-5, 22440-8, 40352-9, ANAIFR, 82966-1, 66577-9, 34007-5, 16775-6 ####[facility] [id number] [place] [address] [place] SCL-70 extractable nuclear I gG IA Qn (S)on 02-11-2023 SCLERODERMA AB QUAL Negative Normal Negative [facility] Comment on above: Order Comment: Speci men Type: BLOOD SPECIMENOrdering Facility: [facility] Address: [address] [place] [address] Performed By: #### 1 1565-9, 23554-4, 48084-6, 53417-0, 68230-9, ANAIFR, 65073-8, 19125-0, 34097-3, 02284-4 ####[facility] [id number] [place] [address] [place] SCLERODERMA IGG AB <0.2 Normal <1.0 [facility] Comment on above: Order Comment: Speci men Type: BLOOD SPECIMENOrdering Facility: [facility] Address: [address] [place] [address] Result Comment: Scl- 70/Scleroderma antibody test is used as an aid in diagnosis of systemic sclerosis especially the diffuse cutaneous form. A negative result cannot rule out systemic sclerosis. The final interpretation should consider clinical picture and other test results such as anti-centromere antibody. Test Methodology: Multiplex flow immunoassay. Performed By: #### 1 1565-9, 00991-8, 37859-4, 74114-3, 57709-3, ANAIFR, 16132-0, 26820-9, 79092-1, 61396-0 ####[facility] [id number] [place] [address] [place] Sjogrens syndrome-A extracta ble nuclear Ab Qn (S)on 02-11-2023 SSA ANTIBODY QUAL Negative Normal Negative [facility] Comment on above: Order Comment: Speci men Type: BLOOD SPECIMENOrdering Facility: [facility] Address: [address] [address] Performed By: #### 1 1565-9, 80104-2, 77859-1, 81363-3, 90893-3, ANAIFR, 01325-4, 84363-0, 69051-0, 19416-0 ####[facility] [id number] [place] [address] [place] Sjogrens syndrome-B extracta ble nuclear Ab Qn (S)on 02-11-2023 SSB ANTIBODY QUAL Negative Normal Negative [facility] Comment on above: Order Comment: Speci men Type: BLOOD SPECIMENOrdering Facility: [facility] Address: [address] [address] Performed By: #### 1 1565-9, 41777-4, 91039-8, 66674-1, 52792-5, ANAIFR, 01940-2, 32128-0, 33574-5, 19594-1 ####[facility] [id number] [address] Willingham extractable nuclear Ig G Qn (S)on 02-11-2023 SM ANTIBODY QUAL Negative Normal Negative [facility] Comment on above: Order Comment: Speci men Type: BLOOD SPECIMENOrdering Facility: [facility] Address: [address] [place] [address] Result Comment: Anti -Sm (Willingham) antibody is used as an aid in diagnosis of systemic lupus erythematosus and its presence is associated with renal disease. A negative result cannot rule out systemic lupus erythematosus. Clinical correlation is required.Test Methodology: Multiplex flow immunoassay. Performed By: #### 1 1565-9, 43492-3, 52941-5, 37449-3, 98038-4, ANAIFR, 13354-0, 30368-3, 66354-2, 58714-0 ####[facility] [id number] [address] [place] TYPE AND SCREEN,30 DAYon ABO B Normal [facility] Comment on above: Order Comment: Speci men Type: BLOOD SPECIMENOrdering Facility: [facility] Address: [address] [address] Performed By: #### T SCR30 ####[facility] BLOOD BANKCLIA [id number] [address] [place] HISTORICAL AB SCR STATUS Negative Normal [facility] Comment on above: Order Comment: Speci men Type: BLOOD SPECIMENOrdering Facility: [facility] Address: [address] [address] Performed By: #### T SCR30 ####[facility] BLOOD BANKIA [id number] [place] [address] [place] Rh Nom (Bld) Positive Normal [facility] Comment on above: Order Comment: Speci men Type: BLOOD SPECIMENOrdering Facility: [facility] Address: [address] [place] [address] Performed By: #### T SCR30 ####[facility] BLOOD BANKIA [id number] [place] [address] [place] aPTT PPPon 02-11-2023 aPTT Coag (PPP) [Time] 28.1 s Normal 23.0-32.4 [facility] Comment on above: Order Comment: Speci men Type: BLOOD SPECIMENOrdering Facility: [facility] Address: [address] [place] [address] Performed By: #### 1 4979-9, 54426-0 ####[facility] [id number] [address] [place] cCP IgG SerPl-aCncon 023 Cyclic citrullinated peptide IgG Qn <15 Normal <20 [facility] Comment on above: Order Comment: Speci men Type: BLOOD SPECIMENOrdering Facility: [facility] Address: [address] [place] [address] Performed By: #### 3 3935-8, BETA2G, BETA2M, 5076-5, CARDIG ####[facility] [id number] [address] [place] dsDNA Ab Ser IA-aCncon 02-11 DNA double strand Ab IA Qn (S) <12 Normal <30 [facility] Comment on above: Order Comment: Speci men Type: BLOOD SPECIMENOrdering Facility: [facility] Address: [address] [place], [place] [id number] Result Comment: Nega tive for ds DNA Antibodies.<30 IU/mL Qwplzhos48-89 IU/mL Equivocal>74 IU/mL Positive Performed By: #### 1 1565-9, 41139-7, 66242-7, 10846-9, 27806-9, ANAIFR, 22382-9, 09012-5, 25031-5, 98677-6 ####[facility] [id number] [address] [place] No Panel Informationon 01-19 [facility] DXA-AXIAL SKELETONon 023 [facility] CBC panel Auto (Bld)on 12-10 Erythrocyte distribution width (RBC) [Ratio] 13.0 % 11.5 - 15.0 % [facility] Hematocrit (Bld) [Volume fraction] 44.9 % 36.0 - 46.0 % [facility] Hemoglobin (Bld) [Mass/Vol] 14.8 g/dL 11.5 - 15.5 g/dL [facility] MCH (RBC) [Entitic mass] 31.2 pg 26.0 - 34.0 pg [facility] MCHC (RBC) [Mass/Vol] 33.0 g/dL 30.5 - 36.0 g/dL [facility] MCV (RBC) [Entitic vol] 94.7 fL 80.0 - 100.0 fL [facility] Nucleated RBC (Bld) [#/Vol] <0.01 k/uL [facility] Platelet mean volume (Bld) [Entitic vol] 9.6 fL 9.0 - 12.7 fL [facility] Platelets (Bld) [#/Vol] 353 10*3/uL 150 - 400 k/uL [facility] RBC (Bld) [#/Vol] 4.74 10*6/uL 3.90 - 5.2 0 m/uL [facility] WBC (Bld) [#/Vol] 9.31 10*3/uL 3.70 - 11.00 k/uL [facility] COLONOSCOPY DIAGNOSTICon [facility] No Panel Informationon 08-13 [facility] - Drug toxicology on 07-07-2022 Adalimumab [Mass/Vol] 4.45 ug/mL >=0.65 ug/mL [facility] No Panel Informationon 07-07 ADALIMUMAB NEUTRALIZING ANTIBODY Not detected Not Detected [facility] Pathology study See Note [facility] - Microbiology an d Antimicrobial susceptibilityon 07-06-2022 M. tuberculosis tuberculin stim IFN-g Ql (Bld) Negative [facility] No Panel Informationon 07-06 Mitogen minus Nil >=0.50 IU/mL [facility] TB Gamma Interpretation Infection with M. tuberculosis complex is unlikely. If latent tuberculosis infection is highly suspected, a negative result does not rule out the infection. Specimens from immunocompromised patients and those <5 years of age may show false negative results. In case of a contact investigation, please repeat 8-12 weeks after a known exposure. [facility] TB Nil 0.01 IU/mL <=8.00 IU/mL [facility] TB1 Ag minus Nil 0.00 IU/mL <0.35 IU/mL [facility] TB2 Ag minus Nil 0.00 IU/mL <0.35 IU/mL [facility] CBC panel Auto (Bld)on 07-05 Erythrocyte distribution width (RBC) [Ratio] 13.1 % 11.5 - 15.0 % [facility] Hematocrit (Bld) [Volume fraction] 45.2 % 36.0 - 46.0 % [facility] Hemoglobin (Bld) [Mass/Vol] 14.4 g/dL 11.5 - 15.5 g/dL [facility] MCH (RBC) [Entitic mass] 31.2 pg 26.0 - 34.0 pg [facility] MCHC (RBC) [Mass/Vol] 31.9 g/dL 30.5 - 36.0 g/dL [facility] MCV (RBC) [Entitic vol] 97.8 fL 80.0 - 100.0 fL [facility] Nucleated RBC (Bld) [#/Vol] <0.01 k/uL [facility] Platelet mean volume (Bld) [Entitic vol] 10.1 fL 9.0 - 12.7 fL [facility] Platelets (Bld) [#/Vol] 245 10*3/uL 150 - 400 k/uL [facility] RBC (Bld) [#/Vol] 4.62 10*6/uL 3.90 - 5.2 0 m/uL [facility] WBC (Bld) [#/Vol] 6.35 10*3/uL 3.70 - 11.00 k/uL [facility] Comprehensive metabolic 2000 panelon 07-05-2022 Albumin [Mass/Vol] 4.7 g/dL 3.9 - 4.9 g/dL [facility] ALP [Catalytic activity/Vol] 61 U/L 34 - 123 U/L [facility] ALT [Catalytic activity/Vol] 8 U/L 7 - 38 U/L [facility] Anion gap [Moles/Vol] 9 mmol/L 9 - 18 mmol/L [facility] AST [Catalytic activity/Vol] 18 U/L 13 - 35 U/L [facility] Bilirubin [Mass/Vol] 0.5 mg/dL 0.2 - 1 .3 mg/dL [facility] Calcium [Mass/Vol] 9.5 mg/dL 8.5 - 10. 2 mg/dL [facility] Chloride [Moles/Vol] 105 mmol/L 97 - 10 5 mmol/L [facility] CO2 [Moles/Vol] 26 mmol/L 22 - 30 mmol/L [facility] Creatinine [Mass/Vol] 0.73 mg/dL 0.58 - 0.96 mg/dL [facility] Estimated Glomerular Filtration Rate 107 mL/min/1.73m >=60 mL/min/1.73 m [facility] Glucose [Mass/Vol] 96 mg/dL 74 - 99 mg/dL [facility] Potassium [Moles/Vol] 4.6 mmol/L 3.7 - 5.1 mmol/L [facility] Protein [Mass/Vol] 7.2 g/dL 6.3 - 8.0 g/dL [facility] Sodium [Moles/Vol] 140 mmol/L 136 - 144 mmol/L [facility] Urea nitrogen [Mass/Vol] 8 mg/dL 7 - 21 mg/dL [facility] Iron and Iron binding capaci ty panelon 07-05-2022 Iron [Mass/Vol] 103 ug/dL 41 - 186 ug/dL [facility] Iron binding capacity [Mass/Vol] 331 ug/dL 232 - 386 ug/dL [facility] Iron/TIBC [Molar ratio] 31.1 % 15.0 - 57.0 % [facility] - Chemistry and C hemistry - challengeon 07-05-2022 25-hydroxyvitamin D3 [Mass/Vol] 35.8 ng/mL 31.0 - 80.0 ng/mL [facility] Cobalamin (Vitamin B12) [Mass/Vol] 284 pg/mL 232 - 1,245 pg/mL [facility] Ferritin [Mass/Vol] 68.0 ng/mL 14.7 - 205.1 ng/mL [facility] No Panel Informationon 07-05 Hepatitis A IgG Negative Negative [facility] Auth for Release of Medical Recordson 07-02-2022 [facility] for Release of Medical Records [id number]:127 Normal [facility] Vital Signs Date Time Vital Sign Value Performing Clinician Faci lity 02-01-2024 09:59-0500 Body height 160 cm Adrien Landers MD Work Phone: [facility] 02-01-2024 09:59-0500 Body weight 65.8 kg Adrien Landers MD Work Phone: [facility] 02-01-2024 09:59-0500 Diastolic blood pressure 81 mm[Hg] Adrien Landers MD Work Phone: [facility] 02-01-2024 09:59-0500 Heart rate 71 /min Adrien Landers MD Work Phone: [facility] 02-01-2024 09:59-0500 SaO2% (BldA) [Mass fraction] 100 % Adrien Landers MD Work Phone: [facility] 02-01-2024 09:59-0500 Systolic blood pressure 122 mm[Hg] Adrien Landers MD Work Phone: [facility] 10-18-2023 14:13-0500 Body temperature 98.1 [degF] Pedro Luis Bailey APRN.TRANSIT MECHANIC Work Phone: [facility] 10-18-2023 14:13-0500 Body weight 65.32 kg Pedro Luis Bailey APRN.TRANSIT MECHANIC Work Phone: [facility] 10-18-2023 14:13-0500 Diastolic blood pressure 72 mm[Hg] Pedro Luis Bailey APRN.TRANSIT MECHANIC Work Phone: [facility] 10-18-2023 14:13-0500 Heart rate 79 /min Pedro Luis Bailey FOLLOW UP SPECIALIST.TRANSIT MECHANIC Work Phone: [facility] 10-18-2023 14:13-0500 Respiratory rate 20 /min Pedro Luis Bailey FOLLOW UP SPECIALIST.TRANSIT MECHANIC Work Phone: [facility] 10-18-2023 14:13-0500 SaO2% (BldA) [Mass fraction] 100 % Pedro Luis Bailey FOLLOW UP SPECIALIST.TRANSIT MECHANIC Work Phone: [facility] 10-18-2023 14:13-0500 Systolic blood pressure 111 mm[Hg] Pedro Luis Bailey FOLLOW UP SPECIALIST.TRANSIT MECHANIC Work Phone: [facility] 10-18-2023 12:56-0500 Body height 159.3 cm Gautam Hill MD Work Phone: [facility] 10-18-2023 12:56-0500 Body temperature 98.1 [degF] Gautam Hill MD Work Phone: [facility] 10-18-2023 12:56-0500 Body weight 65.5 kg Gautam Hill MD Work Phone: [facility] 10-18-2023 12:56-0500 Diastolic blood pressure 72 mm[Hg] Gautam Hill MD Work Phone: [facility] 10-18-2023 12:56-0500 Heart rate 79 /min Gautam Hill MD Work Phone: [facility] 10-18-2023 12:56-0500 Respiratory rate 20 /min Gautam Hill MD Work Phone: [facility] 10-18-2023 12:56-0500 SaO2% (BldA) [Mass fraction] 100 % Gautam Hill MD Work Phone: [facility] 10-18-2023 12:56-0500 Systolic blood pressure 111 mm[Hg] Gautam Hill MD Work Phone: [facility] 09-23-2023 14:42-0400 Body weight 66.22 kg Luz Noriegaick FOLLOW UP SPECIALIST.TRANSIT MECHANIC Work Phone: [facility] 09-23-2023 14:42-0400 Diastolic blood pressure 70 mm[Hg] Luz Levi FOLLOW UP SPECIALIST.TRANSIT MECHANIC Work Phone: [facility] 09-23-2023 14:42-0400 Heart rate 72 /min Luz Noriegaick FOLLOW UP SPECIALIST.TRANSIT MECHANIC Work Phone: [facility] 09-23-2023 14:42-0400 Systolic blood pressure 126 mm[Hg] Luz Levi FOLLOW UP SPECIALIST.TRANSIT MECHANIC Work Phone: [facility] 09-14-2023 14:30-0400 Body weight 65.77 kg Parish Page MD Work Phone: [facility] 09-14-2023 14:30-0400 Diastolic blood pressure 70 mm[Hg] Parish Page MD Work Phone: [facility] 09-14-2023 14:30-0400 Heart rate 84 /min Parish Page MD Work Phone: [facility] 09-14-2023 14:30-0400 Systolic blood pressure 106 mm[Hg] Parish Page MD Work Phone: [facility] 09-05-2023 14:34-0400 Body height 160 cm Adrien Landers MD Work Phone: [facility] 09-05-2023 14:34-0400 Body weight 65.77 kg Adrien Landers MD Work Phone: [facility] 09-05-2023 14:34-0400 Diastolic blood pressure 68 mm[Hg] Adrien Landers MD Work Phone: [facility] 09-05-2023 14:34-0400 Heart rate 91 /min Adrien Landers MD Work Phone: [facility] 09-05-2023 14:34-0400 Systolic blood pressure 113 mm[Hg] Adrien Landers MD Work Phone: [facility] 05-20-2023 08:15-0400 Body height 160 cm Adrien Landers MD Work Phone: [facility] 05-20-2023 08:15-0400 Body weight 63.64 kg Adrien Landers MD Work Phone: [facility] 05-20-2023 08:15-0400 Diastolic blood pressure 71 mm[Hg] Adrien Landers MD Work Phone: [facility] 05-20-2023 08:15-0400 Heart rate 76 /min Adrien Landers MD Work Phone: [facility] 05-20-2023 08:15-0400 Systolic blood pressure 113 mm[Hg] Adrien Landers MD Work Phone: [facility] 05-19-2023 08:41-0400 Body weight 61.69 kg Luz Sims FOLLOW UP SPECIALIST.TRANSIT MECHANIC Work Phone: [facility] 05-19-2023 08:41-0400 Diastolic blood pressure 64 mm[Hg] Luz Sims FOLLOW UP SPECIALIST.TRANSIT MECHANIC Work Phone: [facility] 05-19-2023 08:41-0400 Heart rate 80 /min Luz Sims FOLLOW UP SPECIALIST.TRANSIT MECHANIC Work Phone: [facility] 05-19-2023 08:41-0400 Systolic blood pressure 106 mm[Hg] Luz Sims FOLLOW UP SPECIALIST.TRANSIT MECHANIC Work Phone: [facility] 02-11-2023 13:40-0400 Body height 160 cm Shelby Sankovic PA-C Work Phone: [facility] 02-11-2023 13:40-0400 Body temperature 98.6 [degF] Shelby Sankovic PA-C Work Phone: [facility] 02-11-2023 13:40-0400 Body weight 64.41 kg Shelby Sankovic PA-C Work Phone: [facility] 02-11-2023 13:40-0400 Diastolic blood pressure 70 mm[Hg] Shelby Sankovic PA-C Work Phone: [facility] 02-11-2023 13:40-0400 Heart rate 89 /min Shelby Sankovic PA-C Work Phone: [facility] 02-11-2023 13:40-0400 Respiratory rate 16 /min Shelby Sankovic PA-C Work Phone: [facility] 02-11-2023 13:40-0400 SaO2% (BldA) [Mass fraction] 98 % Shelby Sankovic PA-C Work Phone: [facility] 02-11-2023 13:40-0400 Systolic blood pressure 111 mm[Hg] Shelby Sankovic PA-C Work Phone: [facility] 01-27-2023 13:32-0500 Body height 160 cm Hilary Shaffer MD Work Phone: [facility] 01-27-2023 13:32-0500 Body temperature 97.2 [degF] Hilary Shaffer MD Work Phone: [facility] 01-27-2023 13:32-0500 Body weight 65.32 kg Hilary Shaffer MD Work Phone: [facility] 01-27-2023 13:32-0500 Diastolic blood pressure 71 mm[Hg] Hilary Shaffer MD Work Phone: [facility] 01-27-2023 13:32-0500 Heart rate 87 /min Hilary Shaffer MD Work Phone: [facility] 01-27-2023 13:32-0500 Respiratory rate 17 /min Hilary Shaffer MD Work Phone: [facility] 01-27-2023 13:32-0500 SaO2% (BldA) [Mass fraction] 98 % Hilary Shaffer MD Work Phone: [facility] 01-27-2023 13:32-0500 Systolic blood pressure 111 mm[Hg] Hilary Shaffer MD Work Phone: [facility] 01-19-2023 09:06-0500 Body weight 64.41 kg Franchesca Zuniga MD Work Phone: [facility] 01-19-2023 09:06-0500 Diastolic blood pressure 68 mm[Hg] Franchesca Zuniga MD Work Phone: [facility] 01-19-2023 09:06-0500 Heart rate 66 /min Franchesca Zuniga MD Work Phone: [facility] 01-19-2023 09:06-0500 Systolic blood pressure 110 mm[Hg] Franchesca Zuniga MD Work Phone: [facility] 12-10-2022 10:15-0500 Body height 160 cm Roro Ant FOLLOW UP SPECIALIST.TRANSIT MECHANIC Work Phone: [facility] 12-10-2022 10:15-0500 Body temperature 98.01 [degF] Roro Ant FOLLOW UP SPECIALIST.TRANSIT MECHANIC Work Phone: [facility] 12-10-2022 10:15-0500 Body weight 65.77 kg Roro Ant FOLLOW UP SPECIALIST.TRANSIT MECHANIC Work Phone: [facility] 12-10-2022 10:15-0500 Diastolic blood pressure 68 mm[Hg] Roro Ant FOLLOW UP SPECIALIST.TRANSIT MECHANIC Work Phone: [facility] 12-10-2022 10:15-0500 Heart rate 98 /min Roro Ant FOLLOW UP SPECIALIST.TRANSIT MECHANIC Work Phone: [facility] 12-10-2022 10:15-0500 SaO2% (BldA) [Mass fraction] 98 % Roro Ant FOLLOW UP SPECIALIST.TRANSIT MECHANIC Work Phone: [facility] 12-10-2022 10:15-0500 Systolic blood pressure 137 mm[Hg] Roro Ant FOLLOW UP SPECIALIST.TRANSIT MECHANIC Work Phone: [facility] 12-03-2022 10:00-0500 Diastolic blood pressure 67 mm[Hg] Sheldon Abreu MD Work Phone: [facility] 12-03-2022 10:00-0500 Heart rate 70 /min Sheldon Abreu MD Work Phone: [facility] 12-03-2022 10:00-0500 SaO2% (BldA) [Mass fraction] 99 % Sheldon Abreu MD Work Phone: [facility] 12-03-2022 10:00-0500 Systolic blood pressure 101 mm[Hg] Sheldon Abreu MD Work Phone: [facility] 12-03-2022 09:49-0500 Respiratory rate 16 /min Sheldon Abreu MD Work Phone: [facility] 12-03-2022 08:14-0500 Body height 160 cm Sheldon Abreu MD Work Phone: [facility] 12-03-2022 08:14-0500 Body temperature 97.2 [degF] Sheldon Abreu MD Work Phone: [facility] 12-03-2022 08:14-0500 Body weight 63.5 kg Sheldon Abreu MD Work Phone: [facility] 08-13-2022 18:45-0400 Diastolic blood pressure 68 mm[Hg] Mri (I-Stat/1.5t/3t) Work Phone: [facility] 08-13-2022 18:45-0400 Heart rate 80 /min Mri (I-Stat/1.5t/3t) Work Phone: [facility] 08-13-2022 18:45-0400 Respiratory rate 20 /min Mri (I-Stat/1.5t/3t) Work Phone: [facility] 08-13-2022 18:45-0400 SaO2% (BldA) [Mass fraction] 99 % Mri (I-Stat/1.5t/3t) Work Phone: [facility] 08-13-2022 18:45-0400 Systolic blood pressure 117 mm[Hg] Mri (I-Stat/1.5t/3t) Work Phone: [facility] 07-05-2022 07:48-0400 Body height 160 cm Cuco Gonzalez MD Work Phone: [facility] 07-05-2022 07:48-0400 Body weight 66.32 kg Cuco Gonzalez MD Work Phone: [facility] 07-05-2022 07:48-0400 Diastolic blood pressure 68 mm[Hg] Cuco Gonzalez MD Work Phone: [facility] 07-05-2022 07:48-0400 Heart rate 80 /min Cuco Gonzalez MD Work Phone: [facility] 07-05-2022 07:48-0400 SaO2% (BldA) [Mass fraction] 99 % Cuco Gonzalez MD Work Phone: [facility] 07-05-2022 07:48-0400 Systolic blood pressure 112 mm[Hg] Cuco Gonzalez MD Work Phone: [facility] Encounters Encounter Date Encounter Type Care Provider Facility Start: 03-05-2024 Telephone encounter Lamont joyner MD Work Phone: Gastroenterology Comment on above: Medication Question Start: 02-01-2024 End: 02-01-2024 ambulatory ADRIEN LANDERS Facility:[facility] Start: 02-01-2024 End: 02-01-2024 Patient encounter procedure Adrien Landers MD Work Phone: Gynecology Comment on above: Post-operative state (Primary Dx) Start: 01-17-[address] [facility] Comment on above: post op on 01/31 Start: 01-17-2024 E-mail encounter fro m caregiver [facility] Start: 01-06-2024 End: 01-06-2024 ambulatory ADRIEN LANDERS Facility:[facility] Start: 01-06-2024 End: 01-06-2024 ambulatory Mayra Ibarra APRN.CNP Work Phone: Gynecology Comment on above: Post-operative state (Primary Dx); Adenomyosis; Endometriosis determined by laparoscopy Start: 01-06-2024 End: 01-06-2024 Telemedicine consultation with patient Mayra Ibarra JON Work Phone: [facility] Start: 01-04-2024 Refill Pedro Luis Bailey APR, N.CNP Work Phone: Pulmonary Medicine Comment on above: Med Change Request Start: 12-28-2023 Documentation procedure [facility] Provider Gynecology Comment on above: Document image uploa d Start: 12-28-2023 E-mail encounter fro m caregiver [facility] Provider [facility] Start: 12-23-2023 End: 12-23-2023 ambulatory BRENDA Vargas Ammon Facility:[facility] Start: 12-22-2023 End: 12-23-2023 ambulatory [facility] Facility:[facility] Start: 12-16-2023 End: 12-16-2023 ambulatory [facility] Facility:[facility] Start: 12-09-2023 End: 12-10-[facility] Start: 12-09-2023 Encounter for other preprocedural examination [facility] Start: 12-09-2023 End: 12-10-2023 ambulatory [facility] Facility:[facility] Start: 11-23-2023 End: 11-23-2023 ambulatory [facility] Facility:[facility] Start: 11-14-2023 Refill Pedro Luis Bailey APR, N.CNP Work Phone: Pulmonary Medicine Comment on above: Med Change Request Start: 10-18-2023 End: 10-18-2023 Office outpatient new 30 minutes Pedro Luis Bailey APRN.CNP Work Phone: Pulmonary Medicine Comment on above: Cigarette nicotine d ependence without complication (Primary Dx) Start: 10-18-2023 End: 10-18-2023 ambulatory Gautam Hill MD Work Phone: Hematology/Oncology Comment on above: Antiphospholipid syn drome (HCC); Hypercoagulable state (HCC) Start: 10-18-2023 End: 10-18-2023 Patient encounter procedure Gautam Hill MD Work Phone: [facility] Start: 09-29-2023 End: 09-29-2023 ambulatory MONICA PEDRO Facility:[facility] Start: 09-23-2023 End: 09-23-2023 ambulatory LUZ SIMS Facility:[facility] Start: 09-23-2023 End: 09-23-2023 Patient encounter procedure Luz Sims FOLLOW UP SPECIALIST.TRANSIT MECHANIC Work Phone: Rheumatology Comment on above: 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); Raynaud's phenomenon without gangrene; HLA B27 (HLA B27 positive); Crohn's disease of both small and large intestine with other complication (HCC) Start: 09-22-2023 End: 09-22-2023 ambulatory HILARY SHAFFER Facility:[facility] Start: 09-22-2023 End: 09-22-2023 ambulatory Hilary Shaffer MD Work Phone: Colorectal Surgery Comment on above: Crohn's disease of s mall and large intestines with complication (HCC) (Primary Dx); Antiphospholipid syndrome (HCC) Start: 09-22-2023 End: 09-22-2023 Telemedicine consultation with patient Hilary Shaffer MD Work Phone: [facility] Start: 09-22-2023 End: 09-22-2023 ambulatory BRENDA M DIPESH Facility:[facility] Start: 09-20-2023 Telephone encounter Shashank Ruelas Gastroenterology Comment on above: Education Of Patient /family (PREP QUESTION, PREP NEEDED) Patient Update; Estefany ent Question Start: 09-19-2023 Refill Parish camara MD Work Phone: Vascular Medicine [place] Comment on above: Med Change Request Start: 09-16-2023 Telephone encounter Joanie del rio [facility] Other Phone: [facility] Comment on above: Anticoagulation Tele phone Fu (Patient Update) Start: 09-15-2023 ambulatory Hilary ruelas MD Work Phone: Colorectal Surgery Comment on above: Rare Medical Diagnos is Start: 09-14-2023 End: 09-14-2023 Orders Only Chelsea Carvalho APRN.TRANSIT MECHANIC Work Phone: Gynecology Comment on above: Pre-op testing (Prim oswald Dx) Antiphospholipid syn drome (HCC) (Primary Dx); Hypercoagulable state (HCC) Start: 09-14-2023 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 Francisca Carvalho APRN.TRANSIT MECHANIC Work Phone: [facility] Work Phone: Start: 09-05-2023 End: 09-05-2023 ambulatory ADRIEN LANDERS Facility:[facility] Start: 09-05-2023 End: 09-05-2023 Patient encounter procedure Adrien Landers MD Work Phone: Obstetrics/Gynecology Comment on above: Adenomyosis; Dysmenorrhea; Abnormal uterine bleeding Start: 07-20-2023 ambulatory Adrien Landers MD Work Phone: Gynecology Comment on above: MRI of Pelvis Start: 07-12-2023 End: 07-13-2023 ambulatory BRENDA [facility] Facility:[facility] Start: 06-22-2023 End: 06-22-2023 ambulatory LUZ SIMS Facility:[facility] Start: 06-16-2023 Telephone encounter Ankita Cleveland RN Gastroenterology Comment on above: Insurance Authorizat ion (Humira/) Start: 06-08-2023 End: 06-08-2023 [facility] Start: 06-06-2023 Orders Only Franchesca alamo MD Work Phone: Rheumatology Comment on above: Abnormal coagulation profile (Primary Dx) Start: 05-20-2023 End: 05-21-2023 ambulatory [facility] Facility:[facility] Start: 05-20-2023 End: 05-20-2023 Patient encounter procedure Adrien Landers MD Work Phone: Gynecology Comment on above: Endometriosis; Pelvic pain in female Start: 05-19-2023 End: 05-19-2023 ambulatory LUZ SIMS Facility:[facility] Start: 05-19-2023 End: 05-19-2023 Patient encounter procedure Luz Sims FOLLOW UP SPECIALIST.TRANSIT MECHANIC Work Phone: Rheumatology Comment on above: 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 Start: 05-16-2023 E-mail encounter aishwarya vargas caregiver [facility] Pharmacist Work Phone: [facility] Start: 05-13-[address] [facility] Start: 05-13-[address] [facility] Comment on above: SPP Inflammatory Con ditions - Treatment Referral (Humira); Insurance Authorization (PA submission pending) Start: 05-11-2023 Telephone encounter Ankita Cleveland RN Gastroenterology Comment on above: Orders (Humira Induc tion & Maintenance) Start: 05-10-2023 End: 05-10-2023 ambulatory LAMONT BROWN Facility:[facility] Start: 04-11-2023 E-mail encounter aishwarya m caregiver [facility] Start: 04-11-2023 Patient encounter procedure [facility] Comment on above: MIGS consult Start: 03-30-2023 E-mail encounter aishwarya vargas caregiver Pedro Israel PA-C Work Phone: [facility] Start: 03-30-2023 Follow-up encounter Pedro mayfield PA-C Work Phone: Gastroenterology Comment on above: follow up on todays visit Start: 03-29-2023 End: 03-29-2023 ambulatory PEDRO ISRAEL Facility:[facility] Start: 03-29-2023 End: 03-29-2023 ambulatory Pedro Israel PA-C Work Phone: Gastroenterology Comment on above: Crohn's disease of s mall and large intestines with complication (HCC) (Primary Dx) Start: 03-29-2023 End: 03-29-2023 Telemedicine consultation with patient Pedro Israel PA-C Work Phone: [facility] Start: 03-24-2023 End: 03-24-2023 ambulatory Hilary Shaffer MD Work Phone: Colorectal Surgery Comment on above: Crohn's disease of s mall and large intestines with complication (HCC) (Primary Dx) Start: 03-24-2023 End: 03-24-2023 Telemedicine consultation with patient Hilary Shaffer MD Work Phone: [facility] Start: 03-07-2023 Emergency department patient visit BRENDA LANDON Facility:[facility] Start: 03-07-2023 Telephone encounter Cara Radforde R Radha Colorectal Surgery Comment on above: 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 Facility: Start: 03-02-2023 Telephone encounter Hilary snyder MD Work Phone: Colorectal Surgery Comment on above: Results Start: 03-01-2023 Telephone encounter Cara Cruise R N Colorectal Surgery Comment on above: Returning Patient's Call; Horse Rancher - Other; Patient Question Start: 02-28-2023 ambulatory [...] Start: 02-17-2023 End: 02-17-2023 ambulatory BRENDA LANDON Facility:[facility] Start: 02-14-2023 End: 02-17-2023 Evaluation and management of inpatient HILARYAmmon SHAFFER Facility:[facility] Start: 02-14-2023 ambulatory Roro HAND RN.TRANSIT MECHANIC Work Phone: Gastroenterology Comment on above: Vitamin D Start: 02-14-2023 E-mail encounter fro m caregiver Roro Ant CESPEDES.TRANSIT MECHANIC Work Phone: [facility] Start: 02-11-2023 End: 02-12-2023 ambulatory HILARY Bruce SHAFFER Facility:[facility] Start: 02-11-2023 Encounter for other preprocedural examination SHELBY GARCIA [facility] Start: 02-11-2023 End: 02-11-2023 Patient encounter procedure Shelby Garcia PA-C Work Phone: Colorectal Surgery Comment on above: Preoperative examina tion (Primary Dx) Start: 02-11-2023 End: 02-11-2023 Preprocedural examination done Shelby Garcia PA-C Work Phone: Colorectal Surgery Start: 02-11-2023 End: 02-12-2023 ambulatory Nurse Pt Ed Cors Work Phone: Colorectal Surgery Comment on above: Patient Education Start: 02-06-2023 Admission to 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; Patient Update Start: 01-28-2023 ambulatory Hilary ruelas MD Work Phone: Colorectal Surgery Start: 01-27-2023 End: 01-27-2023 Patient encounter procedure Hilary Shaffer MD Work Phone: Colorectal Surgery Comment on above: Crohn's disease of s mall and large intestines with complication (HCC) Start: 01-24-2023 Orders Only [place] Bonilla RP Work Phone: Gastroenterology Start: 01-20-2023 Telephone encounter Venice chao [facility] Work Phone: Gastroenterology Comment on above: Medication Follow-up Start: 01-19-2023 End: 01-19-2023 Patient encounter procedure [...] promotion and disease prevention Start: 12-31-2022 End: 12-31-2022 ambulatory [place] Bonilla [facility] Work Phone: Gastroenterology Comment on above: Crohn's disease of s mall and large intestines with complication (HCC) (Primary Dx) Start: 12-31-2022 End: 12-31-2022 Telemedicine consultation with patient [place] Bonilla RP Work Phone: [facility] Start: 12-24-2022 End: 12-24-2022 Subsequent hospital visit by physician Bone Density Main A21 2 Radiology Comment on above: custodial current us e of systemic steroids [Z79.52] Start: 12-13-2022 Orders Only Roro HAND RN.TRANSIT MECHANIC Work Phone: Gastroenterology Comment on above: Vitamin D deficiency (Primary Dx) Start: 12-10-2022 End: 12-10-2022 Patient encounter procedure Roro Cain APRN.TRANSIT MECHANIC Work Phone: Gastroenterology Comment on above: Crohn's disease of s mall and large intestines with complication (HCC) (Primary Dx); custodial current use of systemic steroids Start: 12-03-2022 End: 12-03-2022 Subsequent hospital visit by physician Sheldon Abreu MD Work Phone: Gastroenterology Comment on above: Crohn's disease of b oth small and large intestine without complication (HCC) [K50.80] Start: 11-25-2022 Telephone encounter Ana Paula ruelas RN Gastroenterology Comment on above: Appointment Start: 10-27-2022 Telephone [...] End: 08-13-2022 Subsequent hospital visit by physician Jose Miguel 1 Radio Main Q Work Phone: MRI Q Comment on above: Crohn's disease of b oth small and large intestine without complication (HCC) [K50.80] Start: 08-13-2022 ambulatory Kelley Menchaca RN MRI Q Comment on above: Patient Education Start: 08-13-2022 Chart abstracting Josh ([facility]) [facility] Start: 07-05-2022 End: 07-05-2022 Patient encounter procedure Cuco Gonzalez MD Work Phone: Gastroenterology Comment on above: Crohn's disease of b oth small and large intestine without complication (HCC) (Primary Dx); Crohn's disease of small and large intestines with complication (HCC); Bloating Start: 07-01-2022 Telephone encounter Soledad Sriram manager business information Comment on above: Request Outside Medi bob Records Start: 10-25-2018 End: 10-25-2018 Patient encounter procedure [facility] Division of Rheumatology Comment on above: Appointment Procedures Date Procedure Procedure Detail Performing Clinician Start: 12-09-2023 Antibody screen LUZ PUGH Comment on above: Order Comment: Speci men Type: BLOOD SPECIMENOrdering Facility: [facility] Address: [address] [place] [address] Performed By: #### T [id number] ####CC MAIN BLOOD BANKCLIA [id number] [address] Start: 09-22-2023 Colonoscopy LUZ ALICIA Tidwell Start: 02-11-2023 Antibody screen LUZ PUGH Comment on above: Order Comment: Speci men Type: BLOOD SPECIMENOrdering Facility: [facility] Address: [address] [place] [address] Performed By: #### T SCR30 ####[facility] MAIN BLOOD BANKCLIA [id number] [address] Start: 12-24-2022 Dxa bone density pablo dy 1/> sites axial skel Roro Cain APRN.TRANSIT MECHANIC Work Phone: Start: 12-03-2022 Colonoscopy flx dx [...] (1 of 3 - Risk 3-dose series) [facility] Start: 2043 Hepatitis B Vaccine (1 of 3 - Risk 3-dose series) Hepatitis B Vaccine (1 of 3 - Risk 3-dose series) [facility] Start: 07-29-2024 Influenza vaccination Influenza Vaccine (Season Ended) [facility] Start: 11-28-2023 Behavioral Health Screening Behavioral Health Screening [facility] Start: 11-28-2023 Depression Assessment Depression Assessment [facility] Start: 10-10-2023 End: 01-09-2024 Centromere Ab [Presence] in Serum by Immunofluorescence ANTI-CENTROMERE AB Lab Routine Raynaud's phenomenon without gangrene Expected: 10/10/2023, Expires: 01/09/2024 [facility] Work Phone: Comment on above: Expected: 10/10/2023, Expires: 4 Start: 09-14-2023 End: 09-14-2024 CBC W Auto Differential panel - Blood CBC + DIFF Lab Routine Pre-op testing Expected: 09/14/2023, Expires: 09/14/2024 [facility] Work Phone: Comment on above: Expected: 09/14/2023, Expires: 4 Start: 09-14-2023 End: 12-14-2023 PT panel - Platelet poor plasma by Coagulation assay PROTHROMBIN TIME/PT Lab Routine Antiphospholipid syndrome (HCC) Expected: 09/14/2023, Expires: 12/14/2023 [facility] Work Phone: Comment on above: Expected: 09/14/2023, Expires: 4 Start: 07-29-2023 Influenza vaccination [facility] Start: 05-14-2023 End: 07-14-[address]UPUS ANTICO[address] Lab Routine Abnormal blood coagulation profile Expected: 05/14/2023, Expires: 07/14/2023 [facility] Work Phone: Comment on above: Expected: 05/14/2023, Expires: 3 Start: 2023 Mammography [facility] Start: 2023 Screening for malignant neoplasm of breast Mammogram Screening [facility] Start: 02-11-2023 End: 04-17-2023 CBC panel - Blood by Automated count CBC Lab Routine Crohn's disease of small and large intestines with complication (HCC) Expected: 02/11/2023 (Approximate), Expires: 03/14/2023 [facility] Work Phone: Comment on above: Expected: 02/11/2023 (Approximate), Expi res: 03/14/2023 Start: 02-11-2023 End: 03-14-2023 Comprehensive metabolic 2000 panel - Serum or Plasma COMP METABOLIC PANEL Lab Routine Crohn's disease of small and large intestines with complication (HCC) Expected: 02/11/2023, Expires: 03/14/2023 [facility] Work Phone: Comment on above: Expected: 02/11/2023, Expires: 3 Start: 02-11-2023 End: 03-14-2023 CONFIRM BLOOD TYPE CONFIRM BLOOD TYPE Blood Bank Routine Crohn's disease of small and large intestines with complication (HCC) Expected: 02/11/2023, Expires: 03/14/2023 [facility] Work Phone: Comment on above: Expected: 02/11/2023, Expires: 3 Start: 02-11-2023 End: 03-14-2023 TYPE AND SCREEN,30 DAY TYPE AND SCREEN,30 DAY Blood Bank Routine Crohn's disease of small and large intestines with complication (HCC) Expected: 02/11/2023, Expires: 03/14/2023 [facility] Work Phone: Comment on above: Expected: 02/11/2023, Expires: 3 Start: 02-09-2023 End: 04-11-2023 25-hydroxyvitamin D3 [Mass/volume] in Serum or Plasma VITAMIN D 25 HYDROXY Lab Routine SpondyloArthritis associated with inflammatory bowel disease Crohn's disease of both small and large intestine with other complication (HCC) Vitamin D deficiency Expected: 02/09/2023, Expires: 04/11/2023 [facility] Work Phone: Comment on above: Expected: 02/09/2023, Expires: 3 Start: 02-09-2023 End: 04-11-2023 LYLA BY IFA WITH REFLEX LYLA BY IFA WITH REFLEX Lab Routine SpondyloArthritis associated with inflammatory bowel disease Crohn's disease of both small and large intestine with other complication (HCC) Expected: 02/09/2023, Expires: 04/11/2023 [facility] Work Phone: Comment on above: Expected: 02/09/2023, Expires: 3 Start: 02-09-2023 End: 04-11-2023 C reactive protein [Mass/volume] in Serum or Plasma C-REACTIVE PROTEIN (CRP) Lab Routine SpondyloArthritis associated with inflammatory bowel disease Crohn's disease of both small and large intestine with other complication (HCC) Expected: 02/09/2023, Expires: 04/11/2023 [facility] Work Phone: Comment on above: Expected: 02/09/2023, Expires: 3 Start: 02-09-2023 End: 04-11-2023 Cyclic citrullinated peptide IgG Ab [Units/volume] in Serum or Plasma CCP ANTIBODY IGG Lab Routine SpondyloArthritis associated with inflammatory bowel disease Crohn's disease of both small and large intestine with other complication (HCC) Expected: 02/09/2023, Expires: 04/11/2023 [facility] Work Phone: Comment on above: Expected: 02/09/2023, Expires: 3 Start: 02-09-2023 End: 04-11-[address]UPUS ANTICOAG PL Lab Routine SpondyloArthritis associated with inflammatory bowel disease Crohn's disease of both small and large intestine with other complication (HCC) Raynaud's phenomenon without gangrene Pers History of multiple miscarriages Expected: 02/09/2023, Expires: 04/11/2023 [facility] Work Phone: Comment on above: Expected: 02/09/2023, Expires: 3 Start: 02-09-2023 End: 04-11-2023 Parathyrin.intact [Mass/volume] in Serum or Plasma PTH INTACT BLD Lab Routine SpondyloArthritis associated with inflammatory bowel disease Crohn's disease of both small and large intestine with other complication (HCC) Vitamin D deficiency Expected: 02/09/2023, Expires: 04/11/2023 [facility] Work Phone: Comment on above: Expected: 02/09/2023, Expires: 3 Start: 02-09-2023 End: 04-11-2023 Rheumatoid factor [Units/volume] in Serum or Plasma RHEUMATOID FACTOR BL Lab Routine SpondyloArthritis associated with inflammatory bowel disease Crohn's disease of both small and large intestine with other complication (HCC) Expected: 02/09/2023, Expires: 04/11/2023 [facility] Work Phone: Comment on above: Expected: 02/09/2023, Expires: 3 Start: 12-10-2022 End: 02-09-2023 25-hydroxyvitamin D3 [Mass/volume] in Serum or Plasma [facility] Work Phone: Comment on above: Expected: 12/10/2022, Expires: 3 Start: 12-10-2022 End: 02-09-2023 BLOOD TB SCREEN [facility] Work Phone: Comment on above: Expected: 12/10/2022, Expires: 3 Start: 12-10-2022 End: 02-09-2023 Chronic hepatitis differentiation between hepatitis B and C virus panel - Serum or Plasma [facility] Work Phone: Comment on above: Expected: 12/10/2022, Expires: 3 Start: 12-10-2022 End: 02-09-2023 Cobalamin (Vitamin B12) [Mass/volume] in Serum or Plasma [facility] Work Phone: Comment on above: Expected: 12/10/2022, Expires: 3 Start: 12-10-2022 End: 02-09-2023 Comprehensive metabolic 2000 panel - Serum or Plasma [facility] Work Phone: Comment on above: Expected: 12/10/2022, Expires: 3 Start: 12-10-2022 End: 02-09-2023 Ferritin [Mass/volume] in Serum or Plasma [facility] Work Phone: Comment on above: Expected: 12/10/2022, Expires: 3 Start: 12-10-2022 End: 02-09-2023 Hepatitis A virus IgM Ab [Presence] in Serum [facility] Work Phone: Comment on above: Expected: 12/10/2022, Expires: 3 Start: 12-10-2022 End: 02-09-2023 Iron and Iron binding capacity panel - Serum or Plasma [facility] Work Phone: Comment on above: Expected: 12/10/2022, Expires: 3 Start: 11-28-2022 DEPRESSION ASSESSMENT DEPRESSION ASSESSMENT [facility] Start: 07-29-2022 Influenza vaccination INFLUENZA (#1) [facility] Start: 11-28-2021 DEPRESSION ASSESSMENT DEPRESSION ASSESSMENT [facility] Start: 10-30-2018 End: 10-30-2018 Ambulatory 10/30/2018 Office Visit Rheumatology Josh Burden MD [address] [place] [id number] Division of Rheumatology Start: 07-29-2018 Influenza vaccination INFLUENZA VACCINE (#1) [facility] Work Phone: Start: 2013 HPV TESTING HPV TESTING [facility] Start: 2013 Screening for malignant neoplasm of cervix HPV Testing [facility] Start: 02-16-2004 PAP TESTING PAP TESTING [facility] Start: 02-16-2004 Screening for malignant neoplasm of cervix [facility] Start: 2002 HEPATITIS A (1 of 2 - Risk 2-dose series) HEPATITIS A (1 of 2 - Risk 2-dose series) [facility] Start: 2002 Hepatitis A Vaccine (1 of 2 - Risk 2-dose series) Hepatitis A Vaccine (1 of 2 - Risk 2-dose series) [facility] Start: 2002 SHINGRIX VACCINE (1 of 2) SHINGRIX VACCINE (1 of 2) [facility] Start: 2002 Third diphtheria, tetanus and acellular pertussis (DTaP) vaccination TDAP (ADULT) [facility] Work Phone: Start: 2002 Urine microalbumin profile [facility] Start: 2001 HEPATITIS C SCREENING HEPATITIS C SCREENING [facility] Start: 2001 HIV SCREENING HIV SCREENING [facility] Start: 2001 HIV screening HIV Screening [facility] Start: 2001 MMR (1 of 2 - Risk 2-dose series) MMR (1 of 2 - Risk 2-dose series) [facility] Start: 2001 MMR Vaccine (1 of 2 - Risk 2-dose series) MMR Vaccine (1 of 2 - Risk 2-dose series) [facility] Start: 2001 Tetanus vaccination TETANUS [facility] Work Phone: Start: 02-16-1996 HIV screening HIV SCREENING DISCUSSION [facility] Work Phone: Start: 1995 Adult depression screening assessment DEPRESSION SCREENING [facility] Start: 1993 Meningococcal B Vaccine: Consider Based On Risk (1 of 4 - Increased Risk) Meningococcal B Vaccine: Consider Based On Risk (1 of 4 - Increased Risk) [facility] Start: 1993 MENINGOCOCCAL B: Consider based on risk (1 of 4 - Increased Risk Bexsero 2-dose series) MENINGOCOCCAL B: Consider based on risk (1 of 4 - Increased Risk Bexsero 2-dose series) [facility] Start: 1993 MENINGOCOCCAL B: Consider based on risk (1 of 4 - Increased Risk) MENINGOCOCCAL B: Consider based on risk (1 of 4 - Increased Risk) [facility] Start: 1989 PNEUMOCOCCAL (1 - PCV) PNEUMOCOCCAL (1 - PCV) [facility] Start: 1989 [facility] Start: 02-16-1988 COVID-19 VACCINE (#1) COVID-19 VACCINE (#1) [facility] Start: 02-16-1984 HEPATITIS A (1 of 2 - Risk 2-dose series) HEPATITIS A (1 of 2 - Risk 2-dose series) [facility] Start: 1983 COVID-19 VACCINE (#1) COVID-19 VACCINE (#1) [facility] End: 07-05-2023 BREATH TEST GLUCOSE BREATH TEST GLUCOSE Endoscopy Routine Crohn's disease of both small and large intestine without complication (HCC) Crohn's disease of small and large intestines with complication (HCC) 1 Occurrences starting 07/05/2022 until 07/05/2023 [facility] Work Phone: Comment on above: 1 Occurrences starting 07/05/2022 until 07/05/2023 BREATH TEST GLUCOSE BREATH TEST GLUCOSE Endoscopy Routine Crohn's disease of both small and large intestine without complication (HCC) Crohn's disease of small and large intestines with complication (HCC) 09/24/2022 [facility] Work Phone: End: 07-05-2023 COLONOSCOPY DIAGNOSTIC COLONOSCOPY DIAGNOSTIC Endoscopy Routine Crohn's disease of both small and large intestine without complication (HCC) Crohn's disease of small and large intestines with complication (HCC) 1 Occurrences starting 07/05/2022 until 07/05/2023 [facility] Work Phone: Comment on above: 1 Occurrences starting 07/05/2022 until 07/05/2023 End: 01-09-2024 DXA-AXIAL SKELETON DXA-AXIAL SKELETON Radiology Routine custodial current use of systemic steroids 1 Occurrences starting 12/10/2022 until 01/09/2024 [facility] Work Phone: Comment on above: 1 Occurrences starting 12/10/2022 until 01/09/2024 End: 01-29-2024 ECG COMPLETE ECG COMPLETE ECG Routine Crohn's disease of small and large intestines with complication (HCC) 1 Occurrences starting 01/29/2023 until 01/29/2024 [facility] Work Phone: Comment on above: 1 Occurrences starting 01/29/2023 until 01/29/2024 H&P for surgery H&P FOR SURGERY Procedures Routine Crohn's disease of small and large intestines with complication (HCC) Ordered: 01/29/2023 [facility] Work Phone: Comment on above: Ordered: 01/29/2023 End: 08-04-2023 MRI ABD ENTEROG WO/W IVCON MRI ABD ENTEROG WO/W IVCON Radiology Routine Crohn's disease of both small and large intestine without complication (HCC) Crohn's disease of small and large intestines with complication (HCC) 1 Occurrences starting 07/05/2022 until 08/04/2023 [facility] Work Phone: Comment on above: 1 Occurrences starting 07/05/2022 until 08/04/2023 End: 08-04-2023 Mri pelvis w/o & w/contrast material MRI PEL ENTEROG WO/W IVCON Radiology Routine Crohn's disease of both small and large intestine without complication (HCC) Crohn's disease of small and large intestines with complication (HCC) 1 Occurrences starting 07/05/2022 until 08/04/2023 [facility] Work Phone: Comment on above: 1 Occurrences starting 07/05/2022 until 08/04/2023 Mri pelvis w/o & w/contrast material MRI FEMALE PELVIS WO/W IVCON Radiology Routine Endometriosis Pelvic pain in female 1 Occurrences starting 05/20/2023 [facility] Work Phone: Comment on above: 1 Occurrences starting 05/20/2023 PT ED PATIENT INFORMATION PT ED PATIENT INFORMATION Other 01/19/2023 [facility] Work Phone: REFER FOR ADMIT INTERVIEW REFER FOR ADMIT INTERVIEW Procedures Routine Crohn's disease of small and large intestines with complication (HCC) Ordered: 01/29/2023 [facility] Work Phone: Comment on above: Ordered: 01/29/2023 SURGICAL PATHOLOGY [facility] Work Phone: Comment on above: Release Upon Ordering for 1 Occurrences starting 12/03/2022, 1 completed [facility] Immunizations Immunization Date Immunization Notes Care Provider Fa cility 01-30-2023 influenza virus vacc ine, unspecified formulation Adrien Landers MD Work Phone: [facility] 08-30-2022 influenza virus vacc ine, unspecified formulation Pedro Luis Bailey APRN.CNP Work Phone: [facility] Payers Date Payer Category Payer Unknown MMO MMO [employer] [id number] 2022-Present [phone] [address] [place] [address] PPO [id number] 2022 Unknown [id number] 1983 Unknown [id number] 1961 Unknown [id number] Social History Date Type Detail Facility Start: 10-11-2016 End: 12-09-2023 Tobacco smoking status NHIS Former smoker [facility] Work Phone: End: 10-21-2023 History of tobacco use Current smoker [facility] Work Phone: Start: 1985 Sex Assigned At Not on file [facility] Work Phone: Tobacco smoking stat us WIIS Tobacco smoking consumption unknown [facility] Start: 06-25-2022 End: 08-13-2022 Exposure to SARS-CoV-2 (event) Not sure [facility] Start: 12-10-2022 End: 09-05-2023 Tobacco smoking status NHIS Smokes tobacco daily [facility] End: 10-21-2023 History of tobacco use Cigarette Smoker [facility] Start: 12-10-2022 End: 12-09-2023 Tobacco use and exposure Smokeless tobacco non-user [facility] Start: 12-10-2022 End: 02-01-2024 Alcohol intake Current drinker of alcohol (finding) [facility] Start: 04-13-2023 End: 05-10-2023 Cigarettes smoked current (pack per day) - Reported 0.5 [facility] Start: 05-10-2023 Alcohol Comment Twice a week [facility] Start: 04-13-2023 End: 05-20-2023 Tobacco use panel [facility] Adult Depression Screening Assessment 2 [facility] History of tobacco use Passive smoker [facility] Start: 12-09-2023 Alcohol Comment 2 drinks a week [facility] Clinical Notes 07-01-2022 to 03-09-2024 Telephone Encounter - Ankita Vega - 03/09/2024 3:39 PM EDTTelephone Encounter - Tiny Laughlin - 03/05/2024 10:27 AM Adrien Hill MD - 02/01/2024 10:15 AM EST Note Date & Type Note Facility 03-09-2024 Miscellaneous Notes Requested Prescriptions Pending Prescriptions Disp Refills adalimumab-adaz (HYRIMOZ,CF, PEN) 40 mg/0.4 mL pen 2.4 mL 3 Sig: Inject 0.4 mL subcutaneously every 2 weeks. Order pended & routed to Pedro Israel PA-C for review / approval. EDWIN Duffy RN March 09, 2024 3:40 PM [employer] requesting Humira switch to Biosimilar -Hyrimoz - please send to [facility], does not need new PA [employer]: [phone] Amanda direct line documented in this encounter [facility] 02-01-2024 Note [facility] 02-01-2024 History of Present illness Narrative Images from the original note were not included. [facility] [place] SECTION FOR MINIMALLY INVASIVE GYNECOLOGIC SURGERY OUTPATIENT VISIT DATE 02/01/2024 OUTPATIENT VISIT TYPE POST OPERATIVE FOLLOW UP History: Jocelyne Lucas is a 38 year old female here for post operative follow up appointment. She underwent LAPAROSCOPIC HYSTERECTOMY TOTAL FOR UTERUS 250G OR LESS, LAPAROSCOPY WITH EXCISION OF ENDOMETRIAL LESIONS PELVIS, CYSTOSCOPY on 12/22/2023 indicated for pelvic pain. She reports feeling better this week since her procedure. Her appetite is increased, fair, and improving for the past 2 weeks. She describes her pain as no pain presently. She is currently taking nothing for pain control. She has not had sexual intercourse since the procedure. Denies nausea/vomiting/chest pain/shortness of breath. Ambulating well. No issues with voiding. Denies bleeding/spotting. Pt states developed a hematoma that is still healing across her lower abdomen, states is has improved over the past week. +diarrhea for the past 2 weeks, has history of crohn's- waiting to be cleared to restart humira Has spasms with emptying bladder using flexeril to help- denies actual pain with urination. Operative findings included: FINDINGS 1) Exam under anesthesia: Mobile normal size uterus 2) Laparoscopy: Anterior cul-de-sac - dense adhesions between the lower uterine segment and the bladder. Posterior cul-de-sac - normal-appearing Left ovarian fossa - adhesions of the left ovary to the pelvic brim. Right ovarian fossa - normal-appearing Uterosacral ligaments - normal-appearing Uterus - normal-appearing, dense adhesions to the bladder, multiple nabothian cyst extending the left side of the cervix. Ovaries and fallopian tubes - slightly enlarged left ovary adhered to the pelvic brim, normal tubes and right ovary Bowel and appendix - normal-appearing, s/p right colon resection, well healed anastomosis. Diaphragmatic peritoneum - normal-appearing 3) Cystoscopy: bilateral ureters patent as indicated by strong jets of urine from bilateral ureteral ostia and intact bladder urothelium, normal urinary trigone The pathology report reveals: FINAL DIAGNOSIS A. Uterus, cervix, bilateral fallopian tubes, hysterectomy and bilateral salpingectomy - Histologically unremarkable cervix - Secretory endometrium - Adenomyosis - Leiomyomas - Serosal endometriosis - Histologically unremarkable fallopian tubes ROS: Per HPI Exam: Vitals: BP 122/81 Pulse 71 Ht 160 cm (5' 3 ) Wt 65.8 kg (145 lb 1 oz) LMP 12/03/2023 (Within Days) SpO2 100% BMI 25.70 kg/m Neuro/psych: Alert and oriented x 3 in a pleasant mood Skin: Warm, dry and intact Abdomen: Soft, non tender, non distended, no hepatosplenomegaly or hernias. Post operative abdominal swelling present. Incision: Healing well. Pelvic: Def Assessment: Ms. Jocelyne Lucas is a 38 year old female presenting for postop check status post LAPAROSCOPIC HYSTERECTOMY TOTAL FOR UTERUS 250G OR LESS, LAPAROSCOPY WITH EXCISION OF ENDOMETRIAL LESIONS PELVIS, CYSTOSCOPY. She reports doing well. Pathology discussed and surgical details reviewed. There are no signs of a significant hematoma, and that the leftover swelling and hardness present on her abdomen should continue to improve over time as she heals. Confirmed that she can restart her Humira, and that the medication shouldn't negatively impact her postop course. Pt enquired about her stool patterns, and I have no concern of C-Diff development. Pt described an event that she was advised by my office regarding concerns about symptoms, where she was then advised to report to the ED. She was told that my office would call back to follow up, but she never heard back. An apology message was sent to the pt at that time. Advised she can resume normal daily activity, along with gym activities. Plan: - May continue to increase physical activity as tolerated - May resume intercourse - May resume Humira - Follow up with general provider for annual care - All questions answered and pt agrees with plan Scribe Attestation: By signing my name below, I, Beth Bnigham, attest that this documentation has been prepared under the direction and in the presence of Dr. Adrien Polanco MD. Electronically Signed:deisi Day, January 31, 2024 10:08 AM I agree with the Chief Complaint, ROS, and Past Histories independently gathered by the clinical cryptologic support specialist and the remaining scribed note accurately describes my personal service to the patient. Adrien Landers MD documented in this encounter [facility] 02-01-2024 Instructions Beth Bingham - 02/01/2024 10:15 AM EST PRODUCTION WORKER [phone] OFFICE [phone] [id number] TITLE I COORDINATOR [facility] SURGICAL SCHEDULERS If you have any additional questions or concerns not covered in today's visit, I encourage you to reach out via [employer] messaging. Please note that XOXO Kitchenhart inquiries may take up to 3 days to be answered by on-call staff, and may not be reviewed by your physician until after the message has been triaged. documented in this encounter [facility] 01-20-2024 Miscellaneous Notes Duplicate encounter, issue already escalated to proper channel. Emy Denis RN January 20, 2024 2:49 PM documented in this encounter [facility] 01-06-2024 Note [facility] 01-06-2024 History of Present illness Narrative Images from the original note were not included. [facility] [place] Department of Minimally Invasive TITLE I COORDINATOR Surgery [facility] PATIENT NAME: Jocelyne Lucas DATE: 01/06/2024 Patient Name and verified: Yes Patient Location: [place] This Virtual Visit was completed using My Chart Zoom platform. I have communicated my name and active licensure. The patient's identity and physical location were verified at the time of this visit. Either the patient or their legal signs and displays sales representative has been informed of the risks and benefits of -- and alternatives to -- treatment through a remote evaluation and consents to proceed with the evaluation remotely. Chief Complaint CC/REASON FOR VISIT: Post Op History of Present Illness: Jocelyne is a 38 year old who presents for a post op [facility] visit. SURGERY & DATE: LAPAROSCOPIC HYSTERECTOMY TOTAL FOR UTERUS 250G OR LESS, LAPAROSCOPY WITH EXCISION OF ENDOMETRIAL LESIONS PELVIS, CYSTOSCOPY with Dr Polanco on 12/22/23 FINDINGS 1) Exam under anesthesia: Mobile normal size uterus 2) Laparoscopy: Anterior cul-de-sac - dense adhesions between the lower uterine segment and the bladder. Posterior cul-de-sac - normal-appearing Left ovarian fossa - adhesions of the left ovary to the pelvic brim. Right ovarian fossa - normal-appearing Uterosacral ligaments - normal-appearing Uterus - normal-appearing, dense adhesions to the bladder, multiple nabothian cyst extending the left side of the cervix. Ovaries and fallopian tubes - slightly enlarged left ovary adhered to the pelvic brim, normal tubes and right ovary Bowel and appendix - normal-appearing, s/p right colon resection, well healed anastomosis. Diaphragmatic peritoneum - normal-appearing 3) Cystoscopy: bilateral ureters patent as indicated by strong jets of urine from bilateral ureteral ostia and intact bladder urothelium, normal urinary trigone PATHOLOGY: A. Uterus, cervix, bilateral fallopian tubes, hysterectomy and bilateral salpingectomy - Histologically unremarkable cervix - Secretory endometrium - Adenomyosis - Leiomyomas - Serosal endometriosis - Histologically unremarkable fallopian tubes SUBJECTIVE/INTERVAL HISTORY: Jocelyne Lucas reports that she feels well. No fever or chills. No shortness of breath, cough, or chest pain. No incisional redness, swelling, or drainage. Patient reports that her appetite is good. No abdominal pain, nausea, vomiting, diarrhea, or constipation. No dysuria, gross hematuria, urinary frequency, urinary urgency, or incontinence. Last 3 days feeling much better. Still very sore. Using an abdominal binder. Bruising is improved. Saw her PCP. No fever for the past two days. PCP thought fevers were from UTI. But didn't go away with treating UTI initially Lower right side still having sharp shooting pain. It's tolerable She is only taking tylenol for pain at bedtime. Has taken muscle relaxers in the past She is up and moving every 2 hours during the day Able to walk up to a mile. Pain with bowel movements at the end of emptying her bladder. Still on Cipro for the UTI. This feels different. Only when she has a bowel movement or urination. May ache a little bit in the morning. Issues with spasmatic issues in general. Still taking Senna. Reports bowel movements are soft Past Medical History: PAST MEDICAL HISTORY Diagnosis Date Crohn's disease (HCC) Raynaud's syndrome Family History: Family History Problem Relation Age of Onset Heart Father Hypertension Father Cataract Father Heart Maternal Grandmother Macular Degen Maternal Grandmother Cataract Paternal Grandfather Past Surgical History: PAST SURGICAL HISTORY Procedure Laterality Date BOWEL RESECTION HX 01/2023 RESECTION BOWEL SMALL COLONOSCOPY SCREENING 08/2023 PAST SURGICAL HISTORY OF 2 C sections 2008, 2011 Social History: Social History Tobacco Use Smoking status: Former Packs/day: 0.50 Years: 25.00 Additional pack years: 0.00 Total pack years: 12.50 Types: Cigarettes Quit date: 10/21/2023 Years since quittin.2 Passive exposure: Current Smokeless tobacco: Never Vaping Use Vaping Use: Never used Substance Use Topics Alcohol use: Yes Comment: 2 drinks a week Drug use: Never Allergies: ALLERGIES Allergen Reactions Morphine Other: See Comments Allergies updated: Yes Medications: Current Outpatient Medications Medication Sig buPROPion SR (WELLBUTRIN SR) 150 mg 12 hr tablet TAKE 1 TABLET BY MOUTH TWICE A DAY ondansetron orally disintegrating (ZOFRAN ODT) 4 mg disintegrating tablet Take 1 tablet by mouth every 8 hours as needed. senna (SENOKOT) 8.6 mg tab Take 1 tablet by mouth two times a day. acetaminophen (TYLENOL EXTRA STRENGTH) 500 mg tablet Take 2 tablets by mouth every 8 hours. ibuprofen (MOTRIN) 600 mg tablet Take 1 tablet by mouth every 6 hours as needed for pain. 25/iron fum/folic/dha (-1 ORAL) Take by mouth. COLLAGEN MISC adalimumab 40 mg/0.4 mL subcutaneous pen kit (HUMIRA (CF)) Inject 40 mg (1 pen) subcutaneously every 2 weeks. nicotine (NICODERM) 7 mg/24 hr Apply 1 Patch as directed every 24 hours. nicotine polacrilex (NICORETTE) 4 mg gum Take 1 Each by mouth every 2 hours as needed. No current facility-administered medications for this visit. Medications reviewed in detail and updated PRN. Yes Physical Exam: LMP 12/03/2023 (Within Days) GENERAL: pleasant, euthymic sounding female in no apparent distress Physical exam otherwise deferred Recent labs/Diagnostic studies: I have thoroughly reviewed this patients previous notes, encounters, labs, and results prior to this visit. Assessment and Plan Encounter Diagnosis ICD-10-CM 1. Post-operative state Z98.890 cyclobenzaprine (FLEXERIL) 5 mg tablet 2. Adenomyosis N80.03 3. Endometriosis determined by laparoscopy N80.9 1) Discussed results of pathology and implications with patient. 2) Postop restrictions and wound care reviewed. 3) Keep follow up with Dr. Polanco on 02/01/24. Appointments for Next 60 Days Date Time Provider Location Dept Phone 01/06/2024 8:30 AM MAYRA IBARRA A [facility] [phone] 02/01/2024 11:30 AM ADRIEN CRUZ A [facility] [phone] 02/06/2024 8:30 AM PEDRO LUIS BAILEY A [facility] [phone] SIGNATURE: Mayra Ibarra APRN.CNP documented in this encounter [facility] 01-04-2024 Miscellaneous Notes Images from the original note were not included. documented in this encounter [facility] 12-23-2023 Note [facility] 12-23-2023 Note [facility] 12-22-2023 Note [facility] 12-22-2023 Note [facility] 12-09-2023 Note [facility] 12-09-2023 Note [facility] 11-23-2023 Note [facility] 11-14-2023 Miscellaneous Notes Images from the original note were not included. documented in this encounter [facility] 10-18-2023 Note [facility] 10-18-2023 Note [facility] 10-18-2023 Instructions Pedro Luis Bailey APRN.CNP - 10/18/2023 2:56 PM EST Nicotine Lozenges/ [...] DO NOT HEAR FROM SOMEONE, Please call [phone] SMOKING CESSATION Stopping smoking is the most [...] desirable brand of cigarettes. 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 Use matches. Carry your cigarettes in a [...] why you quit. Also remember that a [employer] spends billions of dollars each year trying [...] of children. Store at room temperature in virtual recruiter s packaging until ready to use. Throw [...] magnetic resonance imaging (MRI) procedure, tell your central supply technician if you have this patch on [...] all your medications. documented in this encounter [facility] 10-18-2023 History of Present illness Narrative Images from the original note were not included. [facility] SMOKING CESSATION PROGRAM CONSULT NOTE I will communicate the consult note back to the requesting health care provider by way of the shared medical record for internal providers or letter via the [employer] for external providers. October 18, 2023 CONSULTING PHYSICIAN/REFERRAL: Monica Pedro [address] [facility] [address] REASON FOR CONSULT/REFERRAL: Tobacco Cessation Treatment HPI: [...] smoke at all. 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 She [...] OF PRIOR TOBACCO TREATMENT: Yes TREATMENT: Cold [place] TRIGGERS: Alcohol, Stress, and boredom PMH: PAST [...] which included preparing to see the patient, [id number] patient care, completing clinical documentation, obtaining and/or reviewing separately obtained history, performing a medically appropriate examination, counseling and educating the patient/family/caregiver, ordering medications, tests, or procedures, communicating with other HCPs (not separately reported), independently interpreting results (not separately reported), communicating results to the patient/family/caregiver, and care coordination (not separately reported). Pedro Luis Bailey APRN.[facility] [place] October 18, 2023 2:34 PM MARIANA Pedro [address] [facility] [address] and Brenda Landon MD via JamHub documented in this encounter [facility] 10-18-2023 History of Present illness Narrative [facility] [place] Department of Hematologic Oncology and Blood Disorders PATIENT NAME: Jocelyne [facility] NO: [id number] ATTENDING PHYSICIAN: Gautam Hill MD. DATE OF [...] which included preparing to see the patient, [id number] patient care, completing clinical documentation, obtaining and/or reviewing separately obtained history, performing a medically appropriate examination, counseling and educating the patient/family/caregiver, ordering medications, tests, or procedures, communicating with other HCPs (not separately reported), and independently interpreting results (not separately reported). Gautam Hill MD Cc. Hilary Shaffer MD [facility]--General [facility] MarkLacie Landers MD [facility]--PSYCHOLOGICAL ASSISTANT documented in this encounter [facility] 10-18-2023 Nurse Note Clinical questionnaires incomplete due to Patient declined to complete or answer questions with nurse Additional intake questions: Has the patient had fever, nausea, vomiting, diarrhea, constipation, fatigue for > 1 week? No Does the patient have a decreased appetite? No Does patient want to see a Truck Mechanic? No (yes to any of above refer patient to schedulers for dietitian appointment) ) Does patient have any new or increased numbness or tingling of extremities? No Is patient interested in fertility information? No Does patient need any prescription refills? No Does patient have an advanced directive in place? No, Patient referred to Resource Center documented in this encounter [facility] 09-29-2023 Note [facility] 09-23-2023 Note [facility] 09-23-2023 Instructions Luz Sims APRN.TRANSIT MECHANIC - 09/23/2023 3:41 PM EDT -PLEASE NOTE THAT WE REVIEW ALL YOUR TEST RESULTS AT YOUR NEXT FOLLOW UP VISIT WITH YOU. IF ANY ABNORMAL LAB REQUIRES SOONER ATTENTION, WE WILL CONTACT YOU. -If you have signed up on Caviar, we will release your test results through Caviar. I wish you the best of health [...] track your nutrition and calcium intake on www.mokono.Helpstream This provides macro and micronutrient intake and requirements. - You can track your calcium intake on [employer] or any other calcium tracker of your [...] track your nutrition and calcium intake on www.mokono.Helpstream This provides macro and micronutrient intake and [...] that features the Whole Plant Based diet, Wilson over knives (see video online and visit website). Another movie that was recently released is: Eating You Alive (you can find it at Yabidu) and The Game Changers movie Dr. Jessica Mathis is a [facility] physician who is an expert in Whole Plant based diet. His website is Adknowledge. His research highlights the benefits of the Whole food plant based diet in reversing and preventing heart disease. Mrs. Mathis (his ) has a cookbook with many recipes on whole plant based food: The Prevent and Reverse Heart Disease cookbook. You can also consider reading his son, Richard Mathis's book: The Engine 2 cookbook Richard is a retired detective narcotics and vice who has helped many people get healthier by following the whole food plant based diet. Dr. Pancho Maya, has a website and free michelet to help get started on a whole plant based diet, at www.pcrm.org and you can log on for free for his 21-Day Kickstart with meals and recipes to follow for 21 days. There is also a free michelet for that. He has multiple free videos and YouTube, for example: https://youtu.be/ltmIxxhH6q5 , https://youtu.be/MwKPRhuxm4d He has written multiple books, including Power MESoft for the Brain, The Cheese Trap, Dr. Pancho Maya's Program for Reversing Diabetes, Your Body in Balance Dr. Valente Valera has shown the benefit of a starch based whole food plant based diet to his Rheumatoid Arthritis patients, as well as patient with diabetes II, hypertension, obesity, multiple sclerosis, heart disease, acne, and other, his website: www.cheli.Helpstream Dr. Sydney Reyez is a renowned life scientists, who has studied and researched the benefits of the Whole plant based diet. He has also researched the adverse effects of animal proteins on health. He presents many of his research findings in his book The [place] study. Dr. Woody Marino has completed many research trials proving the reversal of diseases, such as heart disease and early prostate cancer, with healthy lifestyle and the Whole Plant based diet. Dr. Woody Marino website is: www.bashirAlbiorex.Helpstream His new book: Undo It, has evidence based information and guide to following this healthy lifestyle. Dr. Mukesh Kruger has dedicated a website and additional time to reviewing all food related articles and research and presents them in his power point presentation and on his website at: nutritionfacts.org which is all free. Dr. Kruger has multiple free videos and YouTube, for example https://youtu.be/aSgNkhgVtks and https://youBitstripsu.be/lXXXygDRyBU. He has written multiple books including: How Not To and How Not To Diet He is now working on his next book: How Not To Age Dr. Yajaira Jacobs (from the [facility]), has articles on the following website: Kannact.Helpstream Also, you could find additional information on practical to follow recipes by reading or watching online and YouTube such as: Chef PUGH, Cooking With Plants, The Vegan Corner (recipes from an [place] Pipe Fitter Supervisor), The Whole Foods Plant Based Cooking Show and visiting the provided websites for additional information on the whole plant based benefit and cooking recipes. You can also consider watching the vlogs of some of the plant based Athletes such as Rad Brooks Derek on [employer] Dr. Stacie Ray (a psychiatrist who suffered [...] - Gentle Yoga Anyone Can Do Anywhere www.Texert/yo ga Also on youtube: yoga with Itzel [...] or a higher dose. Raw: Garlic, Cilantro, Oatman nuts, Pumpkin seeds, Hidalgo seeds and Flax seed powder have been reported to help with certain metal detoxification such as mercury. Macon-3 plant based rich foods are good anti-inflammatory [...] the Whole Plant Based Diet, by watching Wilson over Endovention movie and then review website. There are many other resources and educational information on the Whole plant based diet on the Internet and documentaries. There are other resources for wellness that you can also benefit from, such as the [facility] website, [facility]org and includes Plant based and Mediterranean diet, yoga and meditation. Please avoid all dairy products. You could use non-dairy milk such as Flax milk, Cashew milk, Cascade milk, Rice milk, Oat milk or Hemp [...] Osteoporosis Foundation) http://www.osteo.org/osteolinks.as p National Institutes of [facility]: 9-860-654-BONE The Calcium Information [place]: -Non-Dairy, Plant based Milk, can contain in1 glass up to 450 mg of calcium (300 to 450 mg) Exampled include Oat Milk, Flax Milk, Cascade Milk, Cashew Milk, Soy Milk, Peas Milk general health and well being Examples of Food Sources of Calcium from [facility] Food Milligrams (mg) per serving Percent DV* Soymilk, calcium-fortified, 8 ounces 299 30 Cl[place]ont juice, calcium-fortified, 6 ounces 261 26 Tofu, firm, made with calcium sulfate, cup* 253 25 Tofu, soft, made with calcium sulfate, cup* 138 14 Lhmtx-ls-ebl cereal, calcium-fortified, 1 cup 100-1,000 10-100 Turnip greens, fresh, boiled, cup 99 10 Kale, raw, chopped, 1 cup 100 10 Kale, fresh, cooked, 1 cup 94 9 Luxembourger cabbage, bok greene, raw, shredded, 1 cup 74 7 Bread, white, 1 slice 73 7 Tortilla, corn, dzwtu-cu-dhup/dunbar, one 6 diameter 46 5 Tortilla, flour, zwqms-hc-kcwu/dunbar, one 6 diameter 32 3 Bread, whole-wheat, [...] daily with a meal; Certain patients require 4929-1856 iu daily and in patients deficient in [...] bones. Studies show approximately 50% of [place] men and women are vitamin D deficient [...] available from: www.nof.org (the national osteoporosis foundation) http://www.[facility].org/art hritis/osteo/info.htm http://ods.od.nih.gov/factsheets/v itamind.asp National Institutes of Health: 9-832-341-BONE [facility] Calcium Information [place]: At the [facility], we work as a team for your care, along with Nurse Practitioners, Physician Assistants, Nurses and Medical Assistants. It is a privilege and honor to serve you. Thank you for choosing [facility] for your healthcare. Sincerely, Luz Sims APRN.TRANSIT MECHANIC documented in this encounter [facility] 09-23-2023 History of Present illness Narrative Images [...] panel lupus anticoag panel + Consult to [facility] saw Dr. Page 09/14/23 Has anti phospholipid [...] was previously on Humira by her outside federal air marshal. Has had steroids over the yrs for [...] anti-inflammatory diet and lifestyle. 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 Has quit off and on. She is motivated to quit and is aware of risks. I counseled patient on smoking cessation. 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 CLAUDIA Gonzalez, for her Crohn's disease. I reviewed last GI team note from Dec 10, 2022 : From a Crohn's standpoint, she has ileal and sigmoid colon involvement; no prior surgery. She was initially treated with intermittent prednisone and sulfasalazine/mesalamine. She has been on Humira since 2018 (also on it from 4140-0189)- started mostly for . However, she only [...] best route for her case. - Roro Cain, COY.TRANSIT MECHANIC At today's visit, she denies LB or [...] Gonzalez has referred for surgery. Per her High School Mathematics Teacher notes and plan: patient does not require [...] which included preparing to see the patient, riwg-yg-aprk patient care, completing clinical documentation, obtaining and/or reviewing separately obtained history, performing a medically appropriate examination, counseling and educating the patient/family/caregiver, and ordering medications, tests, or procedures. Luz Sims APRN.TRANSIT MECHANIC cc: PCP: Brenda Landon [address] [place] [phone] Subjective HISTORY OF PRESENT ILLNESS NEW CONSULT [...] been under the care of IBD specialist, High School Mathematics Teacher, Dr. CLAUDIA Gonzalez, since 2021. He confirmed her diagnosis of Crohn's disease She has had IBD for about 10 yrs; Reports has had colonoscopies and biopsies to confirm States she was diagnosed with based on her sacroiliitis, around age 16 yrs, by a Event Marketing Representative Initially was being diagnosed for torn muscle, [...] peeling in the soles , states saw Grain Merchandising Manager and was not given diagnosis for psoriasis [...] taking Humira States takes Humira differently : [facility] can get Humira prn and only takes them when she flares. [facility] was getting shipment and using them prn. States would use one injection and her flare would resolve. States she understands that by taking prn can lead to immunogenicity and does not work. Her Event Marketing Representative left [place] States since changed her diet, has not had a severe flare up in 2 yrs States was doing shrimp and rice and salads, nuts, fruits and veggies States has since started a totally different diet and started exercising and is good. [facility] Dr. Gonzalez did not recommended biologic [...] or skin States if blended in a forming fixer can have. 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 Had a flare in 2019 while she was with up to 10 watery bloody BMs a day, treated with course of Prednisone 07/2019. Also had bloating for which she was prescribed flagyl and symptoms resolved. Labs 2854-6608 provided significant for elevated CRP to 5 in 10/2017, and Fecal calpro 90 in 05/2018. Last C-scope ~2017 per pt, records unavailable, CD did not look active, however she has a stricture in the ileocolonic region, never needed dilation. Ms. Lucas is here today as her local GI is retiring, from [place], [place]. She follows with Rheum in [facility], planning to move all care [...] TERMINAL ILEUM. PENETRATING DISEASE: ABSENT. BILATERAL SACROILIITIS. Planer Tailer: JHONNY Transcribe Date/Time: Aug 14 2022 3:16P Dictated by : CARLOS MANUEL DORANTES DO This examination was interpreted and the report reviewed and electronically signed by: CARLOS MANUEL DORANTES DO on Aug 14 2022 3:46PM EST Results-Findings * * *Final Report* * * DATE OF EXAM: Aug 13 2022 8:53PM Q 0684 - MRI ABD ENTEROG WO/W IVCON [...] and negative 08/2018. Had a flare in 2019 while she was with up to 10 watery bloody BMs a day, treated with course of Prednisone 07/2019. Also had bloating for which she was prescribed flagyl and symptoms resolved. Labs [id number] provided significant for elevated CRP to 5 in 10/2017, and Fecal calpro 90 in 05/2018.?Last C-scope 2018 per pt, records unavailable, CD did not [...] lupus anticoag panel + Consult to [facility] saw Dr. Page 09/14/23 Has anti phospholipid [...] Latest Ref Rng & Units 2023 02/17/2023 03/07/202303/0803/08/2023 WBC 3.70 - 11.00 k/uL 11.44(H) 6.37 [...] - SM ANTIBODY Negative Negative - RIBOSOMAL BLANCHING MACHINE OPERATOR AB <1.0 AI <0.2 - RIBOSOMAL BLANCHING MACHINE OPERATOR QUAL Negative Negative - CHROMATIN AB <1.0 AI <0.2 - CHROMATIN AB QUAL Negative Negative - SSA ANTIBODY QUAL Negative Negative - ANTI-SSA <1.0 AI <0.2 - ANTI-SSB <1.0 AI <0.2 - BLANCHING MACHINE OPERATOR ANTIBODY QUAL Negative Negative - SCL-70 AB [...] (Final result) Impression: IMPRESSION: 1. Bilateral sacroiliitis. Planer Tailer: JHONNY Transcribe Date/Time: Jan 19 2023 12:03P ... Last MRI Hip/Pelvis - Impression Only MRI FEMALE PELVIS WO/W IVCON Exam End: 07/12/2023 6:25 PM (Final result) Impression: IMPRESSION: NO FOCI OF ENDOMETRIOSIS OR DEEP INFILTRATIVE ENDOMETRIOSIS IDENTIFIED. NO ACUTE FINDINGS IN THE PELVIS. Planer Tailer: JHONNY ... Last CT Hip/Pelvis - Impression [...] (Hcc) Postoperative Pain Uti (Urinary Tract Infection) Nursing Home Current Use of Anticoagulant Hypercoagulable State (Hcc) [...] Data (across time) documented in this encounter [facility] 09-22-2023 Note [facility] 09-22-2023 History of Present illness Narrative Images from the original note were not included. COLORECTAL SURGERY VIRTUAL VISIT FOLLOW UP I have communicated my name and active licensure. The patient's identity and physical location were verified at the time of this visit. Either the patient or their legal signs and displays sales representative has been informed of the [...] mucous and blood in her stool around 3367-1572. Started on Humira after that time. Had remission during in 2011 Started on Humira in 2016 with significant improvement in symptoms Recently transferred her care from [facility]. Had repeat staging during this process [...] ABSENT. BILATERAL SACROILIITIS. 05/03/17 Small bowel series- Lisset Lamar Medical Decision Making: Assessment Assessment & Diagnosis: [...] 4 - Moderate documented in this encounter [facility] 09-20-2023 Miscellaneous Notes Patient was advised to [...] having the colonoscpoy. documented in this encounter [facility] 09-20-2023 Miscellaneous Notes Addended by: LAMONT BROWN on: 09/20/2023 10:26 AM Modules accepted: Orders Patient left voicemail for prep, message forward to Office. documented in this encounter [facility] 09-18-2023 Miscellaneous Notes AGGIE Page, Spoke to pt and she has [...] [facility] documented in this encounter [facility] 09-14-2023 Note [facility] 09-14-2023 History of Present illness Narrative Images from the original note were not included. [facility] [place] SECTION OF REGIONAL CARDIOLOGY OUTPATIENT VISIT DATE September 14, 2023 OUTPATIENT VISIT TYPE NEW PRIMARY CARE PHYSICIAN: Brenda Landon [facility] [place] [address] REFERRING PHYSICIAN: Franchesca Zuniga [address] [place] [address] Patient is being seen at the request [...] See Comments CURRENT MEDICATIONS: adalimumab (HUMIRA,CF, PEN [id number]) 80 mg/0.8 mL pen kit Inject 160 [...] Parish Page MD documented in this encounter [facility] 09-14-2023 History of Past i llness Narrative Problem Noted Date Diagnosed Date Resolved Date Antiphospholipid syndrome 09/14/2023 documented as of this encounter (statuses as of 10/11/2023) [facility] History of Past illness Narrative* Problem Noted Date Diagnosed Date Resolved Date Antiphospholipid syndrome 09/14/2023 documented as of this encounter (statuses as of 10/19/2023) [facility] History of Past illness Narrative* Problem Noted Date Diagnosed Date Resolved Date Antiphospholipid syndrome 09/14/2023 documented as of this encounter (statuses as of 10/19/2023) [facility] History of Past illness Narrative* Problem Noted Date Diagnosed Date Resolved Date Antiphospholipid syndrome 09/14/2023 documented as of this encounter (statuses as of 11/15/2023) [facility] History of Past illness Narrative* Problem Noted Date Diagnosed Date Resolved Date Antiphospholipid syndrome 09/14/2023 documented as of this encounter (statuses as of 01/04/2024) [facility] History of Past illness Narrative* Problem Noted Date Diagnosed Date Resolved Date Antiphospholipid syndrome 09/14/2023 documented as of this encounter (statuses as of 01/06/2024) [facility] History of Past illness Narrative* Problem Noted Date Diagnosed Date Resolved Date Antiphospholipid syndrome 09/14/2023 documented as of this encounter (statuses as of 01/17/2024) [facility] History of Past illness Narrative* Problem Noted Date Diagnosed Date Resolved Date Antiphospholipid syndrome 09/14/2023 documented as of this encounter (statuses as of 01/20/2024) [facility] History of Past illness Narrative* Problem Noted Date Diagnosed Date Resolved Date Antiphospholipid syndrome 09/14/2023 documented as of this encounter (statuses as of 02/01/2024) [facility] History of Past illness Narrative* Problem Noted Date Diagnosed Date Resolved Date Antiphospholipid syndrome 09/14/2023 documented as of this encounter (statuses as of 03/09/2024) [facility] Instructions * Patient Instructions* Beth Bingham [...] within 5 days - then please call [phone] Once contacted by the scheduling team, you will work with the flight crew scheduler to select a surgical OR date that works for both you and the provider The flight crew scheduler will set up all of your Pre-Op appointments, which may include all or some of the following: Pre-Op consent appointment w/ your provider Pre-Op teaching appointment - *can be done virtually Labs Admit Interview OnePACC (Anesthesia Clearance) And any other testing that the provider orders for prior to surgery You will receive a call from the museum service scheduler the day prior to your surgery as to when and where to arrive on the day of your scheduled surgery QUESTIONS: If you have any clinical questions: Please contact your provider's office directly; [phone] If you have any scheduling questions: Please contact the surgery scheduling office at [phone] THANK YOU for choosing the [facility] [place]! We wish you a speedy recovery and continued good health! documented in this encounter[facility]10-09-2023 History of Present illness Narrative* Adrien Cruz MD - 09/05/2023 2:30 PM EDT Images from the original note were not included. [facility] [place] SECTION FOR MINIMALLY INVASIVE GYNECOLOGIC SURGERY OUTPATIENT VISIT DATE 09/05/2023 OUTPATIENT VISIT TYPE ESTABLISHED PRIMARY CARE PHYSICIAN: Brenda Landon [address] [place] [address] CHIEF COMPLAINT: Follow up HISTORY OF PRESENT [...] Outpatient Medications Medication Sig adalimumab (HUMIRA,CF, PEN [id number]) 80 mg/0.8 mL pen kit Inject 160 [...] prefer she have her surgery performed at [facility] in case I need Dr. Shaffer's [...] AM Adrien Landers MD documented in this encounterTrihealth08-23-2023 Miscellaneous Notes* Telephone Encounter - Deanna Ortega RN - 07/20/2023 2:57 PM EDT ANDRES [...] that may recur and often requires a rat exterminator treatment plan. Once endometriosis is identified, there [...] AM Adrien Landers MD documented in this encounter[facility]08-15-[facility] Miscellaneous Notes* Telephone Encounter - Ankita Vega - 06/16/2023 6:17 PM EDTSummary: NARINDERM PA VENEGAS: [id number] Additional Information Required An active PA is already on file with expiration date of 11/26/2023. Please wait to resubmit requestwithin 60 days of that expiration date to obtain a PA renewal. documented in this encounterTrihealth07-12-2023 [facility] Instructions* Patient Instructions* Beth Bingham - 05/20/2023 9:12 AM EDT PRODUCTION WORKER [phone] OFFICE [phone] [id number] TITLE I COORDINATOR [facility] SURGICAL SCHEDULERS documented in this encounterTrihealth06-23-2023 History of Present illness Narrative* Adrien Landers MD - 05/20/2023 8:30 AM EDT Images from the original note were not included. [facility] [place] SECTION FOR MINIMALLY INVASIVE GYNECOLOGIC SURGERY OUTPATIENT VISIT DATE 05/20/2023 OUTPATIENT VISIT TYPE CONSULT PRIMARY CARE PHYSICIAN: Brenda Landon [address] [place] [address] CHIEF COMPLAINT: Endo Consultation requested by Dr [...] diagnostic abnormalities. -Appendix with no diagnostic abnormalities. JS/KM 02/22/23 06/28/2018 - Ultrasound guided Dilation & [...] unremarkable. Lower thorax: Minimal bilateral subsegmental atelectasis. Donor Floor Technician (topogram) images: No additional findings. Past Gynecologic [...] directed every 24 hours. adalimumab (HUMIRA,CF, PEN TNPSCP-FL-GL) 80 mg/0.8 mL pen kit Inject 160 [...] that may recur and often requires a senior care treatment plan. Once endometriosis is identified, there [...] AM Adrien Landers MD documented in this encounterTrihealth06-22-2023 [facility] Instructions* Patient Instructions* Luz Sims APRN.TRANSIT MECHANIC - 05/19/2023 9:23 AM EDT -PLEASE NOTE THAT WE REVIEW ALL YOUR TEST RESULTS AT YOUR NEXT FOLLOW UP VISIT WITH YOU. IF ANY ABNORMAL LAB REQUIRES SOONER ATTENTION, WE WILL CONTACT YOU. -If you have signed up on [employer], we will release your test results through Caviar. I wish you the best of health [...] track your nutrition and calcium intake on www.EnergyUSA Propane This provides macro and micronutrient intake and requirements. - You can track your calcium intake on [employer] or any other calcium tracker of your [...] track your nutrition and calcium intake on www.mokono.Helpstream This provides macro and micronutrient intake and [...] that features the Whole Plant Based diet, Wilson over knives (see video online and visit website). Another movie that was recently released is: Eating You Alive (you can find it at MascotaNube.Helpstream) and The Game Changers movie Dr. Jessica Mathis is a [facility] physician who is an expert in Whole Plant based diet. His website is Adknowledge. His research highlights the benefits of the Whole food plant based diet in reversing and preventing heart disease. Mrs. Mathis (his ) has a cookbook with many recipes on whole plant based food: The Prevent and Reverse Heart Disease cookbook. You can also consider reading his son, Richard Mathis's book: The Engine 2 cookbook Richard is a retired detective narcotics and vice who has helped many people get healthier by following the whole food plantbased diet. Dr. Pancho Maya, has a website and free michelet to help get started on a whole plant based diet, at www.myBarrister.Adjug and you can log on for free for his 21-Day Kickstart with meals and recipes to follow for21 days. There is also a free michelet for that. He has multiple free videos and YouTube, for example: ht tps://youtu.be/nefDemaX7t1 , https://youBitstripsu.be/PyUBPvsht3o He has written multiple books, including Power [...] heart disease, acne, and other, his website: www.cheli.Helpstream Dr. Sydney Reyez is a renowned life scientists, who has studied and researched the benefits of the Whole plant based diet. He has also researched the adverse effects of animal proteins on health. He presents many of his research findings in his book The [place] study. Dr. Woody Marino has completed many research trials proving the reversal of diseases, such as heart disease and early prostate cancer, with healthy lifestyle and the Whole Plant based diet. Dr. Woody Marino website is: www.alysaWhat They Likestevan.Helpstream His new book: Undo It, has evidence based information and guide to following this healthy lifestyle. Dr. Mukesh Kruger has dedicated a website and additional time to reviewing all food related articles and research and presents them in his power point presentation and on his website at: nutritionfacts.org which is all free. Dr. Kruger has multiple free videos and YouTube, for example https://youtu.be/aSgNkhgVtks and https://youtu.be/lXXXygDRyBU. He has written multiple books including: How Not To and How Not To Diet He is now working on his next book: How Not To Age Dr. Yajaira Jacobs (from the [facility]), has articles on the following website: [facility] Also, you could find additional information on practical to follow recipes by reading or watching online and YouTube such as: Pipe Fitter Supervisor AJ, Cooking With Plants, The Vegan Corner (recipes from an [place] Pipe Fitter Supervisor), The Whole Foods Plant Based Cooking Show and visiting the provided websites for additional information on the whole plant based benefit and cooking recipes. You can also consider watching the vlogs of some of the plant based Athletes such as Rad Brooks Derek on [employer] Dr. Stacie Ray (a psychiatrist who suffered [...] - Gentle Yoga Anyone Can Do Anywhere www.Texert/yoga Also on youtube: yoga with Itzel 3- [...] based diet, it is recommended to take UhcuuubW45, sublingual, dissolve under the tongue, take once daily. Vitamin B12 is available over the counter, dose could be 2500 mcg, and can be taken once a week, and if your blood levels are low, you mayneed to take it once daily or a higher dose. Raw: Garlic, Cilantro, Oatman nuts, Pumpkin seeds, Hidalgo seeds and Flax seed powder have been reported to help with certain metal detoxification such as mercury. [place]-3 plant based rich foods are good anti-inflammatory [...] the Whole Plant Based Diet, by watching Wilson over Knives movie and then review website. There are many other resources and educational information on the Whole plant based diet on the Internet and documentaries. There are other resources for wellness that you can also benefit from, such as the [facility] website, [facility].org and includes Plant based and Mediterranean diet, yoga and meditation. Please avoid all dairy products. You could use non-dairy milk such as Flax milk, Cashew milk, Cascade milk, Rice milk, Oat milk or Hemp [...] following resources: www.nof.org (National Osteoporosis Foundation) http://www.osteo.org/osteolinks.asp [place] [facility] of Health: 4-473-337-BONE The Calcium Information [place]: -Non-Dairy, Plant based Milk, can contain in1 glass up to 450 mg of calcium (300 to 450 mg) Exampled include Oat Milk, Flax Milk, Cascade Milk, Cashew Milk, Soy Milk, Peas Milk general health and well being Examples of Food Sources of Calcium from [facility] Food Milligrams (mg) per serving Percent DV* Soymilk, calcium-fortified, 8 ounces 299 30 [place] juice, calcium-fortified, 6 ounces 261 26 Tofu, firm, made with calcium sulfate, cup* 253 25 Tofu, soft, made with calcium sulfate, cup* 138 14 Nkdlf-rp-kco cereal, calcium-fortified, 1 cup 100-1,000 10-100 Turnip greens, fresh, boiled, cup 99 10 Kale, raw, chopped, 1 cup 100 10 Kale, fresh, cooked, 1 cup 94 9 Luxembourger cabbage, bok greene, raw, shredded, 1 cup 74 7 Bread, white, 1 slice 73 7 Tortilla, corn, migkm-mg-ovtc/dunbar, one 6 diameter 46 5 Tortilla, flour, hqogy-lp-bkex/dunbar, one 6 diameter 32 3 Bread, whole-wheat, [...] daily with a meal; Certain patients require 4656-0629 iu daily and in patients deficient in [...] bones. Studies show approximately 50% of [place] men and women are vitamin D deficient [...] www.nof.org (the national osteoporosis foundation) http://www.[facility].org/arthritis/osteo/info.htm http://ods.od.nih.gov/factsheets/vitamind.asp [facility]: 1-045-680-BONE [facility] Calcium Information [place]: At the [facility], we work as a team for your care, along with Nurse Practitioners, PhysicianAssistants, Nurses and Medical Assistants. It is a privilege and honor to serve you. Thank you for choosing The [facility] for your healthcare. Sincerely, uLz Sims APRN.TRANSIT MECHANIC documented in this encounterTrihealth06-22-2023 History of Present illness Narrative* Luz Sims [...] vision Will see opth PAIN EVALUATION 05/19/2023 0880 Pain Level: 5 Pain Location: Back-Upper Description: [...] was previously on Humira by her outside federal air marshal. Has had steroids over the yrs for [...] anti-inflammatory diet and lifestyle. She is a senior care smoker. Has quit off and on. She is motivated to quit and is aware of risks. I counseled patient on smoking cessation. 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 CLAUDIA Gonzalez, for her Crohn's disease. I reviewed last GI team note from Dec 10, 2022 : From a Crohn's standpoint, she has ileal and sigmoid colon involvement; no prior surgery. She wasinitially treated with intermittent prednisone and sulfasalazine/mesalamine. She has been on Humirasince 2018 (also on it from 9674-0280)- started mostly for . However, she only [...] best route for her case. - Roro Cain, COY.TRANSIT MECHANIC At today's visit, she denies LB or [...] Gonzalez has referred for surgery. Per her High School Mathematics Teacher notes and plan: patient does not require [...] which included preparing to see the patient, fgri-ak-zyan patient care, completing clinical documentation, obtaining and/or reviewing separately obtained history, performing a medically appropriate examination, and counseling and educating the patient/family/caregiverPortions of this note have been copied from my previous note and have beenupdated to reflect today's visit note May 19, 2023 all reflect current medical decision making from date of this visit. Luz Sims APRN.TRANSIT MECHANIC cc: PCP: Brenda Landon [address] [place] [address] Subjective HISTORY OF PRESENT ILLNESS NEW CONSULT [...] been under the care of IBD specialist, High School Mathematics Teacher, Dr. CLAUDIA Gonzalez, since 2021. He confirmed her diagnosis of Crohn's disease She has had IBD for about 10 yrs; Reports has had colonoscopies and biopsies to confirm States she was diagnosed with based on her sacroiliitis, around age 16 yrs, by a Event Marketing Representative Initially was being diagnosed for torn muscle, [...] peeling in the soles , states saw Grain Merchandising Manager and was notgiven diagnosis for psoriasis No [...] to immunogenicity and does not work. Her Event Marketing Representative left [place] States since changed her diet, has not [...] or skin States if blended in a forming fixer can have. She consumes cheese, daily, as [...] Denies history of uveitis; has not seen recording studio set up worker Eye Dryness: No Nose Bleeds: No Sores [...] ulcers Memory Loss: No Swollen Glands: No High School Mathematics Teacher notes reviewed Per delivery representative notes: 37 year old female with PMHx [...] she was prescribed flagyl and symptoms resolved.Labs 5824-2577 provided significant for elevated CRP to 5 in 10/2017, and Fecal calpro 90 in 05/2018. Last C-scope ~2017 per pt, records unavailable, CD did not look active, however she has a stricture in the ileocolonic region, never needed dilation. Ms. Lucas is here today as her local GI is retiring, from [place], [place]. She follows with [facility], planning [...] TERMINAL ILEUM. PENETRATING DISEASE: ABSENT. BILATERAL SACROILIITIS. Planer Tailer: JHONNY Transcribe Date/Time: Aug 14 2022 3:16P [...] for CD. ? Per faxed records from [facility] when seen 10/2019 by GI there: Diagnosed [...] was prescribed flagyl and symptoms resolved. Labs 6591-9737 provided significant for elevated CRP to 5 [...] - SM ANTIBODY Negative Negative - RIBOSOMAL BLANCHING MACHINE OPERATOR AB <1.0 AI <0.2 - RIBOSOMAL BLANCHING MACHINE OPERATOR QUAL Negative Negative - CHROMATIN AB <1.0 AI <0.2 - CHROMATIN AB QUAL Negative Negative - SSA ANTIBODY QUAL Negative Negative - ANTI-SSA <1.0 AI <0.2 - ANTI-SSB <1.0 AI <0.2 - BLANCHING MACHINE OPERATOR ANTIBODY QUAL Negative Negative - SCL-70 AB [...] (Final result) Impression: IMPRESSION: 1. Bilateral sacroiliitis. Planer Tailer: JHONNY Transcribe Date/Time: Jan 19 2023 12:03P [...] Outpatient Medications Medication Sig adalimumab (HUMIRA,CF, PEN [id number]) 80 mg/0.8 mL pen kit Inject 160 [...] Exam Data (across time) documented in this encounterTrihealth06-20-2023 Miscellaneous Notes* Telephone Encounter - Eren Willard RPh - 05/17/2023 4:43 PM EDT Prior authorization for pended medication(s) has been approved; however, due to insurance restrictions Rx must be filled at [facility] ([phone]) [facility]ty [facility]. Pended Orders ID Status Description Pended By When Reason [id number] Pended adalimumab (HUMIRA,CF, PEN [id number]) 80 mg/0.8 mL pen kit Eren Willard [facility] 05/17/23 1646 [id number] Pended adalimumab 40 mg/0.4 mL subcutaneous pen kit (HUMIRA (CF))- EVERY 2 WEEKS Eren Willard RP 05/17/23 1646 If refill request approved, eRx will be sent to above Specialty Pharmacy for processing. Thank you. Eren Willard, PharmD Clinical Pharmacist, Biologics, Neurology, and Hepatology [facility] ; Pool: P [facility] Pool #: [id number] documented in this encounterTrihealth06-16-2023 [facility]2023 [facility] History of Present illness Narrative* Roro Bass - 05/13/2023 7:27 AM EDT [facility] received prescription(s) for Humira from Dr. Israel's office. Benefits investigation was conducted, indicating that a prior authorization is required by patient'sinsurance plan with [employer]. Encounter will be updated once prior authorization has been submitted by [facility]. Roro JAHAIRA BasshT, Inflammatory/Allergy [facility] [phone] documented in this encounterTrihealth06-14-2023 Miscellaneous Notes* Telephone Encounter - Ankita Hamilton [...] Colonoscopy in 3 months - Referral to loan inspector to discuss Mediterranean diet, and Dr. Bonilla for smoking cessation - RTC in 1 month with DIOGO Haq virtually Order must go through Specialty pharmacy. Induction & maintenance orders pended to Dr. Brown for review / signature. Ankita Cleveland Coord May 11, 2023 11:59 AM * Telephone Encounter - Ankita Hamilton - 05/11/2023 11:57 AM EDT ----- Message from Jennifer Flores MD sent at 05/10/2023 12:08 PM EDT ----- Kashif Luciano I ordered Humira induction dose for Ms. Lucas. Can you follow up with her for standard maintenance dosing q2 weeks? Thanks! Jennifer documented in this encounterTrihealth06-13-2023 [facility]-2023 NoteS[facility]05-02-2023 History of Present illness Narrative* Pedro Israel PA-C - 03/29/2023 4:40 PM EDT Virtual Follow Up Visit Provider Location: [facility] Patient Location: Patient Home or Place of Residence ASHVIN Lucas [id number] has requested a video telemedicine for [...] No history of dysuria, frequency or incontinence TITLE I COORDINATOR: Negative for abnormal vaginal bleeding, abnormal vaginal [...] or monitoring off medication with follow-up fecal Bob in 3 months and scope in 6 [...] with more than 50% of the total bdkk-gb-skrr time of the visit in counseling / [...] visit. Either the patient or their legal signs and displays sales representative has been informed of the risks and benefits of -- and alternatives to -- treatment through a remote evaluation andconsents to proceed with the evaluation remotely. Pedro Israel PA-C March 29, 2023 4:41 PM documented in this encounterTrihealth04-27-2023 NoteS[facility]04-27-2023 History of Present illness Narrative* Hilary Shaffer MD - 03/24/2023 4:00 PM EDT Images from the original note were not included. COLORECTAL SURGERY VIRTUAL VISIT FOLLOW UP I have communicated my name and active licensure. The patient's identity and physical location wereverified at the time of this visit. Either the patient or their legal signs and displays sales representative has been informed of the [...] mucous and blood in her stool around 0041-9768. Started on Humira after that time. Had remission during in 2011 Started on Humira in 2016 with significant improvement in symptoms Recently transferred her care from [facility]. Had repeat staging during this process [...] She would like to see someone from TITLE I COORDINATOR regarding her endometriosis diagnosis - will facilitate Follow up with me as needed Hilary Shaffer MD documented in this encounterTrihealth04-11-2023 NoteS[facility]04-11-2023 NoteS[facility]04-11-2023 Note[facility]04-10-2023 NoteS[facility]04-10-2023 NoteHNO ID: [id number] Author: Elda Huerta RT(R) Service: ? Author Type: Technologist Type: Progress Notes Filed: 03/07/2023 5:42 PM Note Text: xray: [facility]04-10-2023 Miscellaneous Notes* Telephone Encounter - Cara Tovar [...] states understanding and prefers to present to [facility] ED- no further questions or concerns Signature Cara Tovar RN March 07, 2023 documented in this encounterTrihealth04-07-2023 NotePROCEDURE: XR ANKLE LT MIN 3 V HISTORY: Arthralgia of the ankle and/or foot COMPARISON: None. FINDINGS: BONES:No fracture, acute abnormality, or significant arthropathy. SOFT TISSUES:No visible soft tissue swelling. EFFUSION:None visible. OTHER: Negative. IMPRESSION: 1. Normal examination. Electronically authenticated by: SUSAN DE LA FUENTE Date: 2023-03-04 15:58[facility]04-05-2023 Miscellaneous Notes* Telephone Encounter - Hilary Shaffer MD - 03/02/2023 5:20 PM EDT I spoke with pt who reports she is having right lower quadrant abdominal pain only at night between3 and 6 AM. Resolves on its own. Discussed pathology findings including endometriosis. Notes she was advised of this some years ago.She will follow up with her TITLE I COORDINATOR. Also reviewed EKG findings Hilary Shaffer MD documented in this encounterTrihealth04-04-2023 Miscellaneous Notes* Telephone Encounter - Cara Tovar [...] 03/01/2023 9:57 AM EDT ----- Contact: See Caviar message, plus has a few other questions. Prefers a call back documented in this encounterTrihealth03-29-2023 Miscellaneous Notes* Telephone Encounter - Landy Souza RN - 02/23/2023 10:29 AM EDT PATIENT INFORMATION Record ID: [id number] Patient Name: [facility]: [facility]: [facility] [place] Attending: Hilary Sahffer Center: Colorectal Surgery INSTRUCTIONS SN to remind patient of appointment date, time, location All Clear Ask follow question #4b on NOC section of survey. All Clear All Clear SURVEY INFORMATION Medical/Nurse Assistant Food Service Manager: Landy Souza 1. Your discharge instructions are [...] symptoms? (Standard Question) No documented in this encounterTrihealth03-22-2023 NoteS[facility]03-21-2023 NoteS[facility]03-20-2023 NoteS[facility]03-17-2023 NoteS[facility]03-17-2023 History and physical note* Shelby Garcia PA-C - 02/11/2023 2:00 PM EDT COLORECTAL SURGERY Pre-OP February 11, 2023 Jocelyne Lucas 37 year old Chief Complaint: preoperative exam [...] 3 ) Wt 64.4 kg (142 lb) LMP/04/2023 (Approximate) SpO2 98% BMI 25.15 kg/m General [...] Department of Colorectal Surgery documented in this encounterTrihealth03-17-2023 History of Present illness Narrative* Yadira Cortez [...] in Department: COLORECTAL SURGERY documented in this encounterTrihealth03-07-2023 Miscellaneous Notes* Telephone Encounter - Cara Tovar RN - 02/01/2023 1:50 PM EST SPECIALTY CARE COORDINATION FOLLOW-UP NOTE Call received- Pt agreeable to moving sx to 02/14/23- to leave pre-operative appts on 02/11 as is No further questions or concerns at this time- pt has call back number Signature Cara Tovar RN February 01, 2023 documented in this encounterTrihealth03-07-2023 Miscellaneous Notes* Telephone Encounter - Cara Tovar RN - 02/01/2023 12:10 PM EST SPECIALTY CARE COORDINATION FOLLOW-UP NOTE VML Calling in regards to upcoming surgery, just had a last minute cancellation and was wondering if she would be amenable to moving her surgical date sooner. Pt to call in to discuss- number left. Signature Cara Tovar RN February 01, 2023 documented in this encounterTrihealth03-02-2023 History and physical note * Hilary Shaffer MD - 01/27/2023 1:40 PM EST Images from the original note were not included. COLORECTAL SURGERY Consultation January 25, 2023 Jocelyne Lance 37 year old This consult was requested by Dr. Cain and my final recommendations will be communicated to the requesting health care provider by way of the shared medical record for internal providers or letter via the [employer] for external providers. Chief Complaint: Crohn's disease of small and large intestines with complication History of Present Illness: Jocelyne Lucas is a 37 year old year old female with a history of Crohn's disease, diagnosed in 2010. Notes mucous and blood in her stool around 4538-4970. Started on Humira after that time. Had remission during in 2011 Started on Humira in 2016 with significant improvement in symptoms Recently transferred her care from [facility]. Had repeat staging during this process [...] Level: 4 - Moderate documented in this encounterTrihealth02-27-2023 History of Present illness Narrative* Venice Bonilla RPh - 01/24/2023 9:20 AM EST IBD PharmD Follow-Up See 01/07/23 Caviar message re: smoking cessation. Will discontinue NRT lozenge due to mouth sores. Rx for NRT patch 7 mg daily sent to pharmacy. Requested MyChart check-in from pt in one week after NRT patch initiation. documented in this encounterTrihealth02-23-2023 Miscellaneous Notes* Telephone Encounter - Venice Bonilla RPh - 01/20/2023 9:17 AM EST Smoking Cessation Follow-Up See Caviar correspondence from 01/07/23. Attempted to call Jocelyne to obtain more details and discuss plan - no response. documented in this encounterTrihealth02-22-2023 Instructions* Patient Instructions* Franchesca Zuniga MD - 01/19/2023 9:37 AM EST -PLEASE NOTE THAT WE REVIEW ALL YOUR TEST RESULTS AT YOUR NEXT FOLLOW UP VISIT WITH YOU. IF ANY ABNORMAL LAB REQUIRES SOONER ATTENTION, WE WILL CONTACT YOU. -If you have signed up on Caviar, we will release your test results through Caviar. I wish you the best of health [...] track your nutrition and calcium intake on www.mokono.Helpstream This provides macro and micronutrient intake and requirements. - You can track your calcium intake on [employer] or any other calcium tracker of your [...] track your nutrition and calcium intake on www.mokono.Helpstream This provides macro and micronutrient intake and [...] that features the Whole Plant Based diet, Wilson over knives (see video online and visit website). Another movie that was recently released is: Eating You Alive (you can find it at Yabidu) and The [employer] movie Dr. Jessica Mathis is a [facility] physician who is an expert in Whole Plant based diet. His website is Adknowledge. His research highlights the benefits of the Whole food plant based diet in reversing and preventing heart disease. Mrs. Mathis (his ) has a cookbook with many recipes on whole plant based food: The Prevent and Reverse Heart Disease cookbook. You can also consider reading his son, Richard Mathis's book: The Engine 2 cookbook Richard is a retired detective narcotics and vice who has helped many people get healthier [...] free videos and YouTube, for example: ht tps://youBitstripsu.be/whdRwsxM1w4 , https://youBitstripsu.be/UpCPHyrnk0s He has written multiple books, including Power [...] heart disease, acne, and other, his website: www.cheli.Helpstream Dr. Sydney Reyez is a renowned life scientists, who has studied and researched the benefits of the Whole plant based diet. He has also researched the adverse effects of animal proteins on health. He presents many of his research findings in his book The [place] study. Dr. Woody Marino has completed many research trials proving the reversal of diseases, such as heart disease and early prostate cancer, with healthy lifestyle and the Whole Plant based diet. Dr. Woody Marino website is: www.bashirAlbiorex.Helpstream His new book: Undo It, has evidence based information and guide to following this healthy lifestyle. Dr. Mukesh Kruger has dedicated a website and additional time to reviewing all food related articles and research and presents them in his power point presentation and on his website at: nutritionfacts.org which is all free. Dr. Kruger has multiple free videos and YouTube, for example https://youJdguanjia.be/aSgNkhgVtks and https://youJdguanjia.be/lXXXygDRyBU. He has written multiple books including: How Not To and How Not To Diet He is now working on his next book: How Not To Age Dr. Yajaira Jacobs (from the [facility]), has articles on the following website: Kannact.Helpstream Also, you could find additional information on practical to follow recipes by reading or watching online and YouTube such as: Pipe Fitter Supervisor AJ, Cooking With Plants, The Vegan Corner (recipes from an [place] Pipe Fitter Supervisor), The Whole Foods Plant Based Cooking Show and visiting the provided websites for additional information on the whole plant based benefit and cooking recipes. You can also consider watching the vlogs of some of the plant based Athletes such as Joel Coles, Tylor Muir on [employer] Dr. Stacie Ray (a psychiatrist who suffered [...] - Gentle Yoga Anyone Can Do Anywhere www.Texert/yoga Also on youtube: yoga with Itzel 3- [...] based diet, it is recommended to take HzaytmrN42, sublingual, dissolve under the tongue, take once daily. Vitamin B12 is available over the counter, dose could be 2500 mcg, and can be taken once a week, and if your blood levels are low, you mayneed to take it once daily or a higher dose. Raw: Garlic, Cilantro, Oatman nuts, Pumpkin seeds, Hidalgo seeds and Flax seed powder have been reported to help with certain metal detoxification such as mercury. Macon-3 plant based rich foods are good anti-inflammatory [...] the Whole Plant Based Diet, by watching Wilson over Endovention movie and then review website. There are many other resources and educational information on the Whole plant based diet on the Internet and documentaries. There are other resources for wellness that you can also benefit from, such as the [facility] website, [facility].org and includes Plant based and Mediterranean diet, yoga and meditation. Please avoid all dairy products. You could use non-dairy milk such as Flax milk, Cashew milk, Cascade milk, Rice milk, Oat milk or Hemp [...] Osteoporosis Foundation) http://www.osteo.org/osteolinks.asp National Institutes of Health: 9-224-823-BONE The Calcium Information [place]: -Non-Dairy, Plant based Milk, can contain in1 glass up to 450 mg of calcium (300 to 450 mg) Exampled include Oat Milk, Flax Milk, Cascade Milk, Cashew Milk, Soy Milk, Peas Milk general health and well being Examples of Food Sources of Calcium from [facility] Food Milligrams (mg) per serving Percent DV* Soymilk, calcium-fortified, 8 ounces 299 30 [place] juice, calcium-fortified, 6 ounces 261 26 Tofu, firm, made with calcium sulfate, cup* 253 25 Tofu, soft, made with calcium sulfate, cup* 138 14 Msfon-xd-phg cereal, calcium-fortified, 1 cup 100-1,000 10-100 Turnip greens, fresh, boiled, cup 99 10 Kale, raw, chopped, 1 cup 100 10 Kale, fresh, cooked, 1 cup 94 9 Luxembourger cabbage, bok greene, raw, shredded, 1 cup 74 7 Bread, white, 1 slice 73 7 Tortilla, corn, jaxao-nb-pxvr/dunbar, one 6 diameter 46 5 Tortilla, flour, vxpak-it-scyp/dunbar, one 6 diameter 32 3 Bread, whole-wheat, [...] daily with a meal; Certain patients require 7369-5682 iu daily and in patients deficient in [...] bones. Studies show approximately 50% of [place] men and women are vitamin D deficient [...] foundation) http://www.[facility].org/arthritis/osteo/info.htm http://ods.od.nih.gov/factsheets/vitamind.asp National Institutes of Health: 0-955-130-BONE The Calcium Information Center: At the [facility], we work as a team for your care, along with Nurse Practitioners, PhysicianAssistants, Nurses and Medical Assistants. It is a privilege and honor to serve you. Thank you for choosing [facility] for your healthcare. Sincerely, Franchesca Springer MD documented in this encounterTrihealth02-22-2023 History of Present illness Narrative* Franchesca Zuniga MD - 01/19/2023 9:21 AM EST Images from the original note were not included. Rheumatology CONSULTATION Referring Provider: Cuco Gonzalez MD Date of Service: 01/19/2023 Gender: female Ethnicity: Age: [age] year old Chief Complaint: New Patient Last Rheumatology visit: [facility] at [facility] Jocelyne Lucas is a 37 year old [...] been under the care of IBD specialist, High School Mathematics Teacher, Dr. CLAUDIA Gonzalez, since 2021. He confirmed her diagnosis of Crohn's disease She has had IBD for about 10 yrs; Reports has had colonoscopies and biopsies to confirm States she was diagnosed with based on her sacroiliitis, around age 16 yrs, by a Event Marketing Representative Initially was being diagnosed for torn muscle, [...] peeling in the soles , states saw Grain Merchandising Manager and was notgiven diagnosis for psoriasis No [...] to immunogenicity and does not work. Her Event Marketing Representative left [place] States since changed her diet, has not [...] or skin States if blended in a forming fixer can have. 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 Last C-scope ~2017 per pt, records unavailable, CD did not look active, however she has a stricture in the ileocolonic region, never needed dilation. Ms. Lucas is here today as her local GI is retiring, from [place], [place]. She follows with [facility], planning [...] TERMINAL ILEUM. PENETRATING DISEASE: ABSENT. BILATERAL SACROILIITIS. Planer Tailer: JHONNY Transcribe Date/Time: Aug 14 2022 3:16P [...] was prescribed flagyl and symptoms resolved. Labs [id number] provided significant for elevated CRP to 5 [...] at 20 wks; states saw MFM/high school director was placed on lovenox) - Raynaud's - [...] at 20 wks; states saw MFM/high school director was placed on lovenox) Joint inflammation No [...] (Final result) Impression: IMPRESSION: 1. Bilateral sacroiliitis. Planer Tailer: JHONNY Transcribe Date/Time: Jan 19 2023 12:03P [...] was previously on Humira by her outside federal air marshal. Has had steroids over the yrs for [...] anti-inflammatory diet and lifestyle. 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 Has quit off and on. She is motivated to quit and is aware of risks. I counseled patient on smoking cessation. 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 CLAUDIA Gonzalez, for her Crohn's disease. I reviewed last GI team note from Dec 10, 2022 : From a Crohn's standpoint, she has ileal and sigmoid colon involvement; no prior surgery. She wasinitially treated with intermittent prednisone and sulfasalazine/mesalamine. She has been on Humirasince 2017 (also on it from 6358-9319)- started mostly for . However, she only [...] best route for her case. - Roro Cain, COY.TRANSIT MECHANIC At today's visit, she denies LB or [...] Gonzalez has referred for surgery. Per her High School Mathematics Teacher notes and plan: patient does not require [...] which included preparing to see the patient, gtza-ae-uyas patient care, completing clinical documentation, obtaining and/or reviewing separately obtained history, performing a medically appropriate examination, counseling and educating the pat ient/family/caregiver, ordering medications, tests, or procedures, communicating with other HCPs (not separately reported), independently interpreting results (not separately reported), communicatingresults to the patient/family/caregiver, and care coordination (not separately reported)and [email or web address] min the following day. Franchesca Zuniga MD cc: referring: Cuco Gonzalez MD cc: PCP: Brenda Landon MD Medical Decision Making: Medical Decision Making Level: 1 - N/A documented in this encounterTrihealth02-03-2023 History of Present illness Narrative* Venice Bonilla, [facility] - 12/31/2022 10:30 AM EST IBD Medication Consult [facility] [place] Patient consents to pharmacy consult agreement. The [...] Unavailable female referred to PharmD. Saw MITCHELL Ant on 12/10/22. Referred for smoking cessation. Scheduled [...] NRT gum Past Medical History Cardiac hx (GA, arrhythmias, angina): No /: No Dental (missing [...] Time spent (mins): 30 documented in this encounterTrihealth02-01-2023 Miscellaneous Notes* Telephone Encounter - Elda Sutton Research Coordinator - 12/29/2022 2:19 PM EST Called patient to remind her about her missed ePRO and fecal calprotectin test for the STARWP3 study. Pt didn't answer , left voice message . documented in this encounterTrihealth01-27-2023 History of Present illness Narrative* RT Maegan(R) [...] 24, 2022 11:08 AM documented in this encounterTrihealth01-13-2023 Instructions* Patient Instructions* Roro Cain APRN.CNP - [...] your usual activities immediately. documented in this encounterTrihealth01-13-2023 History of Present illness Narrative* Roro Cain APRN.CNP - 12/10/2022 10:00 AM EST .Follow Up Visit SUBJECTIVE Jocelyne Lucas [id number] 1985 presents to the clinic today with [...] she was prescribed flagyl and symptoms resolved.Labs [id number] provided significant for elevated CRP to 5 in 10/2017, and Fecal calpro 90 in 05/2018. Last C-scope ~2017 per pt, records unavailable, CD did not look active, however she has a stricture in the ileocolonic region, never needed dilation. Ms. Lucas is here today as her local GI is retiring, from [place], [place]. She follows with [facility], planning [...] asalazine/mesalamine. She has been on Humira since 2018 (also on it from 9211-7724)- started mostlyfor . However, she only uses [...] which included preparing to see the patient, [id number] patient care, completing clinical documentation, obtaining and/or [...] Rheum regarding restarting Humira. documented in this encounterTrihealth01-06-2023 Nurse Note* Ashia Downey RN - 12/03/2022 [...] RN In Department: GASTROENTEROLOGY documented in this encounterTrihealth12-29-2022 Miscellaneous Notes* Telephone Encounter - Ana Paula Murray RN - 11/25/2022 2:06 PM EST Topic: Pre-Procedure Message Attempted to reach the patient at the contact number that they provided [phone] (home) . Unable to speak with patient so without identifying the patient the following information was left on their voice mail: Date of procedure, location and report time A message was left informing the patient/patient signs and displays sales representative they must have a responsible [...] Number to call with questions or concerns [phone] Number to call to cancel their procedure [phone] Ana Paula Murray RN documented in this encounterTrihealth11-30-2022 Miscellaneous Notes* Telephone Encounter - Elda Sutton, Research Coordinator - 10/27/2022 2:20 PM EST Called patient to remind her about her missed ePRO and fecal calprotectin test for the STARWP3 study. Pt didn't answer , left voice message . documented in this [facility]10-28-2022 History of Present illness Narrative* Christina Cerna RN - 09/24/2022 11:43 AM EDT Name: Jocelyne Lucas [facility]#: [id number] Date: 09/24/2022 GLUCOSE - BREATH HYDROGEN & [...] completed. .Christina Cerna RN documented in this [facility]10-03-2022 Miscellaneous Notes* Telephone Encounter - Elda Sutton Research Coordinator - 08/30/2022 2:17 PM EDT Called patient to remind her about her missed ePRO and fecal calprotectin test for the STARWP3 study. Pt didn't answer , left voice message . documented in this [facility]09-19-2022 Miscellaneous Notes* Telephone Encounter - Marsha Butts Coordinator - 08/16/2022 3:00 PM EDT Called patient to confirm MRE eligibilty for STARWP3 study and remind her about her missed ePRO on [employer] [facility] . Pt was aware of the login process on her [employer] account and she said she will fill out the daily ePRO .Also, She's aware of receiving stool kit for fecal calprotectin by mail . documented in this [facility]09-16-2022 History of Present illness Narrative* Kelley [...] 13, 2022 6:45 PM documented in this encounterTrihealth09-16-2022 History of Present illness Narrative* Kelley Menchaca [...] By Kelley Menchaca RN documented in this encounterTrihealth09-16-2022 History of Present illness Narrative* Josh Millard - 08/13/2022 6:15 PM EDT INFORMED CONSENT STUDY TITLE: Prospective Observational Study to Validate a Novel PRO Tool and Imaging Index Items in Stricturing Crohn s Disease IRB NO.: [id number] Sponsor: [facility] [employer] ETCH OPERATOR: Dr. Jimy Barrios M.D. Patient [facility] Contact Information: Josh Llamassandip E-mail: [email or web address] Nadine Davies E-mail: [email or web address] The Patient was provided the study informed [...] Obtained by: Elda Sutton documented in this encounterTrihealth09-16-2022 History of Present illness Narrative* Elda Sutton Research Coordinator - 08/13/2022 6:15 PM EDT INFORMED CONSENT STUDY TITLE: Prospective Observational Study to Validate a Novel PRO Tool and Imaging Index Items in Stricturing Crohn s Disease IRB NO.: [id number] Sponsor: [facility] [employer] ETCH OPERATOR: Dr. Jimy Barrios M.D. Patient [facility] Contact Information: Josh Millard E-mail: Elda Sutton E-mail: [email or web address] The Patient was provided the study [...] Elda Sutton Research Coordinator documented in this encounterTrihealth09-16-2022 History of Present illness Narrative* RT Keira(R) [...] 13, 2022 8:26 PM documented in this encounterTrihealth08-08-2022 Instructions* Patient Instructions* Jennifer Flores MD - [...] If you do not have a responsible rolloff driver (family member or friend) with you [...] your exam. 2 10/2019 documented in this encounterTrihealth08-08-2022 History of Present illness Narrative* Cuco Gonzalez MD - 07/05/2022 7:45 AM EDT [facility]: [email or web address] [facility] NO: [id number] REASON FOR VISIT Jocelyne Lucas is a [...] she was prescribed flagyl and symptoms resolved.Labs [id number] provided significant for elevated CRP to 5 in 10/2017, and Fecal calpro 90 in 05/2018. Last C-scope ~2017 per pt, records unavailable, CD did not look active, however she has a stricture in the ileocolonic region, never needed dilation. Ms. Lucas is here today as her local GI is retiring, from [place], [place]. She follows with [facility], planning [...] a year a the discretion of her Event Marketing Representative, since seems to be well controlled, and [...] ASSESSMENT 37 yo female with Crohn's since 2013 (per notes had abnormal blood serology in 2010) and also HLA-B27+ . From a Crohn's standpoint, she has ileal and sigmoid colon involvement; no prior surgery. She was initially treated with intermittent prednisone and sulfasalazine/mesalamine. She has been on Humira since 2018 (also on it from 0958-3217)- started mostly for . However, she only [...] others. Cuco Gonzalez MD documented in this encounterTrihealth08-04-2022 Miscellaneous Notes* Telephone Encounter - Soledad Bhatia [...] provided. Soledad Bhatia RN documented [facility]Tri[facility]* Diagnosis Crohn's disease of both small and large intestine without complication (HCC)- Primary Regional enteritis of small intestine with large intestine Crohn's disease of small and large intestines with complication (HCC) Bloating Flatulence, eructation, and gas pain documented in this encounter [facility]* Diagnosis Crohn's disease of both small and large intestine without complication (HCC) Regional enteritis of small intestine with large intestine Crohn's disease of small and large intestines with complication (HCC) documented in this encounter [facility]* Diagnosis Crohn's disease of both small [...] and large intestines with complication (HCC)- Primary custodial current use of systemic steroids Encounter for long-term (current) use of steroids [facility] Diagnosis Vitamin D deficiency- Primary Unspecified vitamin D deficiency [facility] Diagnosis custodial current use of systemic steroids Encounter for [...] (HCC)- Primary [facility]* Diagnosis Crohn's disease of small and large intestines with complication (HCC) [facility] Diagnosis Endometriosis Endometriosis, site unspecified Pelvic pain in female Unspecified symptom associated with female genital organs [facility]* 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 Other and unspecified noninfectious gastroenteritis and colitis Back stiffness Other symptoms referable to back Bilateral sacroiliitis (HCC) Vision changes Unspecified visual disturbance Crohn's disease of both small and large intestine with other complication (HCC) [facility] Diagnosis Abnormal coagulation profile- Primary [facility]* Diagnosis Adenomyosis Endometriosis of uterus Dysmenorrhea Abnormal uterine bleeding Unspecified disorder of menstruation and other abnormal bleeding from female genital tract [facility] Diagnosis Pre-op testing- Primary Preoperative examination, unspecified Adenomyosis Endometriosis of uterus Dysmenorrhea Abnormal uterine bleeding Unspecified disorder of menstruation and other abnormal bleeding from female genital tract [facility]* Diagnosis Antiphospholipid syndrome (HCC)- Primary Primary hypercoagulable state Hypercoagulable state (HCC) Primary hypercoagulable state Adenomyosis Endometriosis of uterus Dysmenorrhea Abnormal uterine bleeding Unspecified disorder of menstruation and other abnormal bleeding from female genital tract [facility]* Diagnosis Antiphospholipid syndrome (HCC)- Primary Primary hypercoagulable state 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 use of anticoagulant Long-term (current) use of anticoagulants Adenomyosis Endometriosis of uterus Dysmenorrhea Abnormal uterine bleeding Unspecified disorder of menstruation and other abnormal bleeding from female genital tract [facility] Diagnosis Antiphospholipid syndrome (HCC) Primary hypercoagulable state Crohn's disease with complication, unspecified gastrointestinal tract location (HCC)- Primary Adenomyosis Endometriosis of uterus Dysmenorrhea Abnormal uterine bleeding Unspecified disorder of menstruation and other abnormal bleeding from female genital tract documented in this encounter [facility]* Diagnosis Crohn's disease of small and large intestines with complication (HCC)- Primary Antiphospholipid syndrome (HCC) Primary hypercoagulable state Adenomyosis Endometriosis of uterus Dysmenorrhea Abnormal uterine bleeding Unspecified disorder of menstruation and other abnormal bleeding from female genital tract documented in this encounter [facility]* Diagnosis Arthritis associated with inflammatory bowel [...] female genital tract [facility] in [facility]* Diagnosis Antiphospholipid syndrome (HCC) Primary hypercoagulable state Hypercoagulable state (HCC) Primary hypercoagulable state Adenomyosis Endometriosis of uterus Dysmenorrhea Abnormal uterine bleeding Unspecified disorder of menstruation and other abnormal bleeding from female genital tract documented in this encounter [facility]* Diagnosis Cigarette nicotine dependence without complication- Primary Tobacco use disorder Adenomyosis Endometriosis of uterus Dysmenorrhea Abnormal uterine bleeding Unspecified disorder of menstruation and other abnormal bleeding from female genital tract documented [facility]* Diagnosis Cigarette nicotine dependence without complication Tobacco use disorder Adenomyosis Endometriosis of uterus Dysmenorrhea Abnormal uterine bleeding Unspecified disorder of menstruation and other abnormal bleeding from female genital tract documented in [facility]* Diagnosis Cigarette nicotine dependence without complication Tobacco use disorder [facility]* Diagnosis Post-operative state- Primary Other postprocedural status Adenomyosis Endometriosis of uterus Endometriosis determined by laparoscopy documented [facility] encounter [facility]* Diagnosis Post-operative state- Primary Other postprocedural status documented in this [facility]* Diagnosis Crohn's disease of small and large intestines with complication (HCC)- Primary documented in this encounter [facility] for referral (narrative)* Outpatient Procedure (Routine) - Closed Specialty Diagnoses / Procedures Referred By Contac t Referred To Contact [facility] Diagnoses Crohn's disease of both small and large intestine without complication (HCC) Crohn's disease of small and large intestines with complication (HCC) Procedures COLONOSCOPY DIAGNOSTIC COLONOSCOPY FLX DX W/COLLJ SPEC WHEN Cuco Caicedo MD [address] [place] [address] [facility] [place] [address] [place] [address] Referral ID Status Reason Start Date Expiration Date V isits Requested Visits Authorized [id number] Closed Auto-Generate d Referral 07/05/2022 07/05/2023 1 1 [facility] for referral (narrative)* Diagnostic Procedure Only (Routine) - Closed Specialty Diagnoses / Procedures Referred By Contac t Referred To Contact XR IMAGING Diagnoses Back stiffness Arthritis associated with inflammatory bowel disease Procedures XR THORACIC GENERAL 3V AP/LAT/SWIMMERS RADEX SPINE THORACIC 3 VIEWS Franchesca Zuniga MD [address] [place] [address] Xr Imaging Referral ID Status Reason Start Date Expiration Date V isits Requested Visits Authorized [id number] Closed Auto-Generate d Referral 01/19/2023 02/18/2024 1 1 * Diagnostic Procedure Only (Routine) - Closed Specialty Diagnoses / Procedures Referred By Contac t Referred To Contact XR IMAGING Diagnoses Bilateral sacroiliitis (HCC) Arthritis associated with inflammatory bowel disease Procedures XR SACROILIAC JOINTS 2V AP PELVIS/FERGUESON RADIOLOGIC EXAMINATION SACROILIAC JNTS <3 VIEWS Franchesca Zuniga MD [address] [place] [address] Xr Imaging Referral ID Status Reason Start Date Expiration Date V isits Requested Visits Authorized [id number] Closed Auto-Generate d Referral 01/19/2023 02/18/2024 1 1 * Consult, Test, Treat (Routine) - Closed Specialty Diagnoses / Procedures Referred By Contpetar t Referred To Contact [facility] Diagnoses Vision changes Procedures CONSULT TO OPHTHALMOLOGY OFFICE/OUTPATIENT [facility] HIGH MDM 60-74 MINUTES Franchesca Zuniga MD [address] [place] [address] [address] Referral ID Status Reason Start Date Expiration Date V isits Requested Visits Authorized [id number] Closed PCP Requested Referral 01/19/2023 01/19/2024 1 1 [facility] for referral (narrative)* Outpatient Procedure (Routine) - Pending Review Specialty Diagnoses / Procedures Referred By Contac t Referred To Contact [facility] Diagnoses Crohn's disease of small and large intestines with complication (HCC) Procedures ECG COMPLETE ECG ROUTINE ECG W/LEAST 12 LDS W/I&R Hilary Shaffer MD [address] [place] [address] [address] Referral ID Status Reason Start Date Expiration Date Visits Requested Visits Authorized [id number] Pending Review Auto-Generat ed Referral 01/29/2023 01/28/2024 1 1 [facility] for visit Narrative* Outpatient Procedure (Routine) - Closed Specialty Diagnoses / Procedures Referred By Contac t Referred To Contact [facility] Diagnoses Crohn's disease of both small and large intestine without complication (HCC) Crohn's disease of small and large intestines with complication (HCC) Procedures COLONOSCOPY DIAGNOSTIC COLONOSCOPY FLX DX W/COLLJ SPEC WHEN PFRMCuco Morris MD [address] [place] [address] [facility] Disease [address] [address] Referral ID Status Reason Start Date Expiration Date V isits Requested Visits Authorized [id number] Closed Auto-Generate d Referral 07/05/2022 07/05/2023 1 1 [facility] Summary Purpose Family History No Family History [...] (HCC) Procedures CONSULT TO RHEUM/IMMUN DISEASE OFFICE/OUTPATIENT [facility] 60-74 MINUTES Cuco Gonzalez MD [address] [place] [address] Referral ID Status Reason Start Date Expiration Date Visits Requested Visits Authorized [id number] Authorized PCP Requested Referral 07/05/2022 07/05/2023 1 1 Specialty Diagnoses / Procedures Referred By Contac t Referred To Contact [facility] Diagnoses Crohn's disease of both small and large intestine without complication (HCC) Crohn's disease of small and large intestines with complication (HCC) Procedures BREATH TEST GLUCOSE BREATH HYDROGEN/METHANE TEST Cuco Gonzalez MD [address] [place] [address] [facility] Disease [place] [address] [place] [id number] Referral ID Status Reason Start Date Expiration Date Visits Requested Visits Authorized [id number] Authorized Auto-Generat ed Referral 07/05/2022 07/05/2023 1 1 Specialty Diagnoses / Procedures Referred By Contac Referred To Contact [facility] Diagnoses Crohn's disease of both small and large intestine without complication (HCC) Crohn's disease of small and large intestines with complication (HCC) Procedures COLONOSCOPY DIAGNOSTIC COLONOSCOPY FLX DX W/COLLJ SPEC WHEN PFRMD Cuco Gonzalez MD [address] [place] [address] [facility] Disease [address] [address] Referral ID Status Reason Start Date Expiration Date Visits Requested Visits Authorized [id number] Pending Review Auto-Generat ed Referral 07/05/2022 07/05/2023 1 1 Specialty Diagnoses / Procedures Referred By Contac t Referred To Contact MR IMAGING Diagnoses Crohn's disease of both small and large intestine without complication (HCC) Crohn's disease of small and large intestines with complication (HCC) Procedures MRI PEL ENTEROG WO/W IVCON MRI PELVIS W/O & W/CONTRAST MATERIAL Cuco Gonzalez MD [address] [place] [address] Mr Imaging Referral ID Status Reason Start Date Expiration Date V isits Requested Visits Authorized [id number] Closed Auto-Generate d Referral 07/05/2022 08/04/2023 1 [...] W/O & W/CONTRAST MATERIAL Cuco Gonzalez MD [address] [place] [address] Mr Imaging Referral ID Status Reason Start Date Expiration Date Visits Requested Visits Authorized [id number] Authorized Auto-Generat ed Referral 07/28/2022 09/11/2022 2 2 Referral ID Status Reason Start Date Expiration Date V isits Requested Visits Authorized [id number] Closed Auto-Generate d Referral 07/28/2022 09/11/2022 2 2 Specialty Diagnoses / Procedures Referred By Contac t Referred To Contact Colon and Rectal Surgery Diagnoses Crohn's disease of small and large intestines with complication (HCC) Procedures CONSULT TO COLO-RECTAL SURGERY OFFICE/OUTPATIENT [facility] 60-74 MINUTES Roro Cain APRN.TRANSIT MECHANIC [address] [place] [address] Referral ID Status Reason Start Date Expiration Date Visits Requested Visits Authorized [id number] Authorized PCP Requested Referral 12/10/2022 12/10/2023 1 1 Specialty Diagnoses / Procedures Referred By Contac t Referred To Contact Nutrition Diagnoses Crohn's disease of small and large intestines with complication (HCC) Procedures CONSULT TO NUTRITION THERAPY OFFICE/OUTPATIENT [facility] 60-74 MINUTES Roro Cain APRN.TRANSIT MECHANIC [address] [place] [address] Referral ID Status Reason Start Date Expiration Date Visits Requested Visits Authorized [id number] Authorized PCP Requested Referral 12/10/2022 12/10/2023 1 1 Specialty Diagnoses / Procedures Referred By Contac t Referred To Contact MR IMAGING Diagnoses Endometriosis Pelvic pain in female Procedures MRI FEMALE PELVIS WO/W IVCON MRI PELVIS W/O & W/CONTRAST MATERIAL Adrien Cruz MD [address] [place] [address] Mr Imaging Referral ID Status Reason Start Date Expiration Date Visits Requested Visits Authorized [id number] Pending Review Auto-Generat ed Referral 05/20/2023 06/18/2024 1 1 Specialty Diagnoses / Procedures Referred By Contac t Referred To Contact Ophthalmology Diagnoses Vision changes Procedures CONSULT TO OPHTHALMOLOGY OFFICE/OUTPATIENT [facility] 60-74 MINUTES Luz Sims, FOLLOW UP SPECIALIST.TRANSIT MECHANIC [address] [place] [address] Referral ID Status Reason Start Date Expiration Date Visits Requested Visits Authorized [id number] Authorized PCP Requested Referral 05/19/2023 05/18/2024 1 1 Specialty Diagnoses / Procedures Referred By Contac t Referred To Contact Diagnoses Arthritis associated with inflammatory bowel disease Back stiffness Bilateral sacroiliitis (HCC) Luz Sims, FOLLOW UP SPECIALIST.TRANSIT MECHANIC [address] [place] [address] Referral ID Status Reason Start Date Expiration Date V isits Requested Visits Authorized [id number] Authorized 04/19/2023 05/20/2024 1 1 Specialty Diagnoses / Procedures Referred By Contac t Referred To Contact Vascular Medicine Diagnoses Abnormal coagulation profile Procedures CONSULT TO VASCULAR MEDICINE OFFICE/OUTPATIENT [facility] 60-74 MINUTES Franchesca Zuniga MD [address] [place] [address] Referral ID Status Reason Start Date Expiration Date Visits Requested Visits Authorized [id number] Authorized PCP Requested Referral 06/06/2023 06/05/2024 1 [...] state (HCC) Procedures CONSULT TO HEMATOLOGY/ONCOLOGY OFFICE/OUTPATIENT [facility] 60-[place] [address] [place] [address] Referral ID Status Reason Start Date Expiration Date V isits Requested Visits Authorized [id number] Closed PCP Requested Referral 09/19/2023 09/18/2024 1 [...] W/O & W/CONTRAST MATERIAL Cuco Gonzalez MD [address] [place] [address] Mr Imaging Referral ID Status Reason Start Date Expiration Date V isits Requested Visits Authorized [id number] Closed Auto-Generate d Referral 07/28/2022 09/11/2022 2 2 Reason Comments Patient Update Reason Onset Date Comments Procedure 09/24/2022 Breath Test - Gl ucose Specialty Diagnoses / Procedures [facility] Diagnoses Crohn's disease of both small and large intestine without complication (HCC) Crohn's disease of small and large intestines with complication (HCC) Procedures BREATH TEST GLUCOSE BREATH HYDROGEN/METHANE TEST Cuco Gonzalez MD [address] [place] [address] [facility] [place] [address] [place] [address] Referral ID Status Reason Start Date Expiration Date V isits Requested Visits Authorized [id number] Closed Auto-Generate d Referral 07/05/2022 07/05/2023 1 1 Reason Comments Appointment Reason Comments Recheck Reason Comments Research Reason Comments Research F/U Reason Comments Crohns Reason Comments Medication Follow-up Reason Comments New Patient Specialty Diagnoses / [facility] Diagnoses Crohn's disease of small and large intestines with complication (HCC) Procedures CONSULT TO COLO-RECTAL SURGERY OFFICE/OUTPATIENT NEW HIGH MDM 60-74 MINUTES Roro Cain, [employer] [address] [place] [address] Referral ID Status Reason Start Date Expiration Date V isits Requested Visits Authorized [id number] Closed PCP Requested Referral 12/10/2022 12/10/2023 1 1 Reason Comments [facility] - Other Patient Update Reason Comments Pre-Op Exam Reason Comments Follow Up Phone Call All Clear Reason Comments Returning Patient's Call [facility] - Other Patient Question Reason Comments Results Reason Comments [facility]ancher - Other Patient Question Reason Comments Orders [...] antiphospholipid syn drome Reason Comments New Patient Reason Comments Post-Op Visit Reason Comments Medication Question Source Comments (unrecognize d section and content) In the event this informatio n is protected by the Federal Confidentiality of Alcohol and Drug Abuse Patient Records regulations: The Federal rules restrict any use of the information to criminally investigate or prosecute any alcohol or drug abuse patient.[facility]In the event this information is protected by the Federal Confidentiality of Alcohol and Drug Abuse Patient Records regulations: The Federal rules restrict any use of the information to criminally investigate or prosecute any alcohol or drug abuse patient.[facility]In the event this information is protected by the Federal Confidentiality of Alcohol and Drug Abuse Patient Records regulations: The Federal rules restrict any use of the information to criminally investigate or prosecute any alcohol or drug abuse patient.[facility]In the event this information is protected by the Federal Confidentiality of Alcohol and Drug Abuse Patient Records regulations: The Federal rules restrict any use of the information to criminally investigate or prosecute any alcohol or drug abuse patient.[facility]In the event this information is protected by the Federal Confidentiality of Alcohol and Drug Abuse Patient Records regulations: The Federal rules restrict any use of the information to criminally investigate or prosecute any alcohol or drug abuse patient.[facility]In the event this information is protected by the Federal Confidentiality of Alcohol and Drug Abuse Patient Records regulations: The Federal rules restrict any use of the information to criminally investigate or prosecute any alcohol or drug abuse patient.[facility]In the event this information is protected by the Federal Confidentiality of Alcohol and Drug Abuse Patient Records regulations: The Federal rules restrict any use of the information to criminally investigate or prosecute any alcohol or drug abuse patient.Tri[facility]In the event this information is protected by the Federal Confidentiality of Alcohol and Drug Abuse Patient Records regulations: The Federal rules restrict any use of the information to criminally investigate or prosecute any alcohol or drug abuse patient.[facility]In the event this information is protected by the Federal Confidentiality of Alcohol and Drug Abuse Patient Records regulations: The Federal rules restrict any use of the information to criminally investigate or prosecute any alcohol or drug abuse patient.[facility]In the event this information is protected by the Federal Confidentiality of Alcohol and Drug Abuse Patient Records regulations: The Federal rules restrict any use of the information to criminally investigate or prosecute any alcohol or drug abuse patient.Tri[facility]In the event this information is protected by the Federal Confidentiality of Alcohol and Drug Abuse Patient Records regulations: The Federal rules restrict any use of the information to criminally investigate or prosecute any alcohol or drug abuse patient.[facility]In the event this information is protected by the Federal Confidentiality of Alcohol and Drug Abuse Patient Records regulations: The Federal rules restrict any use of the information to criminally investigate or prosecute any alcohol or drug abuse patient.Tri[facility]In the event this information is protected by the Federal Confidentiality of Alcohol and Drug Abuse Patient Records regulations: The Federal rules restrict any use of the information to criminally investigate or prosecute any alcohol or drug abuse patient.TrihealthIn the event this information is protected by the Federal Confidentiality of Alcohol and Drug Abuse Patient Records regulations: The Federal rules restrict any use of the information to criminally investigate or prosecute any alcohol or drug abuse patient.Tri[facility]In the event this information is protected by the Federal Confidentiality of Alcohol and Drug Abuse Patient Records regulations: The Federal rules restrict any use of the information to criminally investigate or prosecute any alcohol or drug abuse patient.Tri[facility]In the event this information is protected by the Federal Confidentiality of Alcohol and Drug Abuse Patient Records regulations: The Federal rules restrict any use of the information to criminally investigate or prosecute any alcohol or drug abuse patient.[facility]In the event this information is protected by the Federal Confidentiality of Alcohol and Drug Abuse Patient Records regulations: The Federal rules restrict any use of the information to criminally investigate or prosecute any alcohol or drug abuse patient.[facility]In the event this information is protected by the Federal Confidentiality of Alcohol and Drug Abuse Patient Records regulations: The Federal rules restrict any use of the information to criminally investigate or prosecute any alcohol or drug abuse patient.TrihealthIn the event this information is protected by the Federal Confidentiality of Alcohol and Drug Abuse Patient Records regulations: The Federal rules restrict any use of the information to criminally investigate or prosecute any alcohol or drug abuse patient.TrihealthIn the event this information is protected by the Federal Confidentiality of Alcohol and Drug Abuse Patient Records regulations: The Federal rules restrict any use of the information to criminally investigate or prosecute any alcohol or drug abuse patient.TrihealthIn the event this information is protected by the Federal Confidentiality of Alcohol and Drug Abuse Patient Records regulations: The Federal rules restrict any use of the information to criminally investigate or prosecute any alcohol or drug abuse patient.Tri[facility]In the event this information is protected by the Federal Confidentiality of Alcohol and Drug Abuse Patient Records regulations: The Federal rules restrict any use of the information to criminally investigate or prosecute any alcohol or drug abuse patient.Tri[facility]In the event this information is protected by the Federal Confidentiality of Alcohol and Drug Abuse Patient Records regulations: The Federal rules restrict any use of the information to criminally investigate or prosecute any alcohol or drug abuse patient.Tri[facility]In the event this information is protected by the Federal Confidentiality of Alcohol and Drug Abuse Patient Records regulations: The Federal rules restrict any use of the information to criminally investigate or prosecute any alcohol or drug abuse patient.Tri[facility]In the event this information is protected by the Federal Confidentiality of Alcohol and Drug Abuse Patient Records regulations: The Federal rules restrict any use of the information to criminally investigate or prosecute any alcohol or drug abuse patient.Tri[facility]In the event this information is protected by the Federal Confidentiality of Alcohol and Drug Abuse Patient Records regulations: The Federal rules restrict any use of the information to criminally investigate or prosecute any alcohol or drug abuse patient.TrihealthIn the event this information is protected by the Federal Confidentiality of Alcohol and Drug Abuse Patient Records regulations: The Federal rules restrict any use of the information to criminally investigate or prosecute any alcohol or drug abuse patient.[facility]In the event this information is protected by the Federal Confidentiality of Alcohol and Drug Abuse Patient Records regulations: The Federal rules restrict any use of the information to criminally investigate or prosecute any alcohol or drug abuse patient.TrihealthIn the event this information is protected by the Federal Confidentiality of Alcohol and Drug Abuse Patient Records regulations: The Federal rules restrict any use of the information to criminally investigate or prosecute any alcohol or drug abuse patient.TrihealthIn the event this information is protected by the Federal Confidentiality of Alcohol and Drug Abuse Patient Records regulations: The Federal rules restrict any use of the information to criminally investigate or prosecute any alcohol or drug abuse patient.Tri[facility]In the event this information is protected by the Federal Confidentiality of Alcohol and Drug Abuse Patient Records regulations: The Federal rules restrict any use of the information to criminally investigate or prosecute any alcohol or drug abuse patient.TrihealthIn the event this information is protected by the Federal Confidentiality of Alcohol and Drug Abuse Patient Records regulations: The Federal rules restrict any use of the information to criminally investigate or prosecute any alcohol or drug abuse patient.Tri[facility]In the event this information is protected by the Federal Confidentiality of Alcohol and Drug Abuse Patient Records regulations: The Federal rules restrict any use of the information to criminally investigate or prosecute any alcohol or drug abuse patient.[facility]In the event this information is protected by the Federal Confidentiality of Alcohol and Drug Abuse Patient Records regulations: The Federal rules restrict any use of the information to criminally investigate or prosecute any alcohol or drug abuse patient.Tri[facility]In the event this information is protected by the Federal Confidentiality of Alcohol and Drug Abuse Patient Records regulations: The Federal rules restrict any use of the information to criminally investigate or prosecute any alcohol or drug abuse patient.Tri[facility]In the event this information is protected by the Federal Confidentiality of Alcohol and Drug Abuse Patient Records regulations: The Federal rules restrict any use of the information to criminally investigate or prosecute any alcohol or drug abuse patient.TrihealthIn the event this information is protected by the Federal Confidentiality of Alcohol and Drug Abuse Patient Records regulations: The Federal rules restrict any use of the information to criminally investigate or prosecute any alcohol or drug abuse patient.TrihealthIn the event this information is protected by the Federal Confidentiality of Alcohol and Drug Abuse Patient Records regulations: The Federal rules restrict any use of the information to criminally investigate or prosecute any alcohol or drug abuse patient.[facility] the event this information is protected by the Federal Confidentiality of Alcohol and Drug Abuse Patient Records regulations: The Federal rules restrict any use of the information to criminally investigate or prosecute any alcohol or drug abuse patient.TrihealthIn the event this information is protected by the Federal Confidentiality of Alcohol and Drug Abuse Patient Records regulations: The Federal rules restrict any use of the information to criminally investigate or prosecute any alcohol or drug abuse patient.[facility]In the event this information is protected by the Federal Confidentiality of Alcohol and Drug Abuse Patient Records regulations: The Federal rules restrict any use of the information to criminally investigate or prosecute any alcohol or drug abuse patient.TrihealthIn the event this information is protected by the Federal Confidentiality of Alcohol and Drug Abuse Patient Records regulations: The Federal rules restrict any use of the information to criminally investigate or prosecute any alcohol or drug abuse patient.TrihealthIn the event this information is protected by the Federal Confidentiality of Alcohol and Drug Abuse Patient Records regulations: The Federal rules restrict any use of the information to criminally investigate or prosecute any alcohol or drug abuse patient.TrihealthIn the event this information is protected by the Federal Confidentiality of Alcohol and Drug Abuse Patient Records regulations: The Federal rules restrict any use of the information to criminally investigate or prosecute any alcohol or drug abuse patient.TrihealthIn the event this information is protected by the Federal Confidentiality of Alcohol and Drug Abuse Patient Records regulations: The Federal rules restrict any use of the information to criminally investigate or prosecute any alcohol or drug abuse patient.Tri[facility]In the event this information is protected by the Federal Confidentiality of Alcohol and Drug Abuse Patient Records regulations: The Federal rules restrict any use of the information to criminally investigate or prosecute any alcohol or drug abuse patient.Tri[facility]In the event this information is protected by the Federal Confidentiality of Alcohol and Drug Abuse Patient Records regulations: The Federal rules restrict any use of the information to criminally investigate or prosecute any alcohol or drug abuse patient.[facility]In the event this information is protected by the Federal Confidentiality of Alcohol and Drug Abuse Patient Records regulations: The Federal rules restrict any use of the information to criminally investigate or prosecute any alcohol or drug abuse patient.[facility]In the event this information is protected by the Federal Confidentiality of Alcohol and Drug Abuse Patient Records regulations: The Federal rules restrict any use of the information to criminally investigate or prosecute any alcohol or drug abuse patient.[facility]In the event this information is protected by the Federal Confidentiality of Alcohol and Drug Abuse Patient Records regulations: The Federal rules restrict any use of the information to criminally investigate or prosecute any alcohol or drug abuse patient.[facility]In the event this information is protected by the Federal Confidentiality of Alcohol and Drug Abuse Patient Records regulations: The Federal rules restrict any use of the information to criminally investigate or prosecute any alcohol or drug abuse patient.[facility]In the event this information is protected by the Federal Confidentiality of Alcohol and Drug Abuse Patient Records regulations: The Federal rules restrict any use of the information to criminally investigate or prosecute any alcohol or drug abuse patient.[facility]In the event this information is protected by the Federal Confidentiality of Alcohol and Drug Abuse Patient Records regulations: The Federal rules restrict any use of the information to criminally investigate or prosecute any alcohol or drug abuse patient.[facility]In the event this information is protected by the Federal Confidentiality of Alcohol and Drug Abuse Patient Records regulations: The Federal rules restrict any use of the information to criminally investigate or prosecute any alcohol or drug abuse patient.Tri[facility]In the event this information is protected by the Federal Confidentiality of Alcohol and Drug Abuse Patient Records regulations: The Federal rules restrict any use of the information to criminally investigate or prosecute any alcohol or drug abuse patient.Tri[facility]In the event this information is protected by the Federal Confidentiality of Alcohol and Drug Abuse Patient Records regulations: The Federal rules restrict any use of the information to criminally investigate or prosecute any alcohol or drug abuse patient.[facility]In the event this information is protected by the Federal Confidentiality of Alcohol and Drug Abuse Patient Records regulations: The Federal rules restrict any use of the information to criminally investigate or prosecute any alcohol or drug abuse patient.[facility]In the event this information is protected by the Federal Confidentiality of Alcohol and Drug Abuse Patient Records regulations: The Federal rules restrict any use of the information to criminally investigate or prosecute any alcohol or drug abuse patient.[facility]In the event this information is protected by the Federal Confidentiality of Alcohol and Drug Abuse Patient Records regulations: The Federal rules restrict any use of the information to criminally investigate or prosecute any alcohol or drug abuse patient.TrihealthIn the event this information is protected by the Federal Confidentiality of Alcohol and Drug Abuse Patient Records regulations: The Federal rules restrict any use of the information to criminally investigate or prosecute any alcohol or drug abuse patient.TrihealthIn the event this information is protected by the Federal Confidentiality of Alcohol and Drug Abuse Patient Records regulations: The Federal rules restrict any use of the information to criminally investigate or prosecute any alcohol or drug abuse patient.TrihealthIn the event this information is protected by the Federal Confidentiality of Alcohol and Drug Abuse Patient Records regulations: The Federal rules restrict any use of the information to criminally investigate or prosecute any alcohol or drug abuse patient.TrihealthIn the event this information is protected by the Federal Confidentiality of Alcohol and Drug Abuse Patient Records regulations: The Federal rules restrict any use of the information to criminally investigate or prosecute any alcohol or drug abuse patient.TrihealthIn the event this information is protected by the Federal Confidentiality of Alcohol and Drug Abuse Patient Records regulations: The Federal rules restrict any use of the information to criminally investigate or prosecute any alcohol or drug abuse patient.TrihealthIn the event this information is protected by the Federal Confidentiality of Alcohol and Drug Abuse Patient Records regulations: The Federal rules restrict any use of the information to criminally investigate or prosecute any alcohol or drug abuse patient.TrihealthIn the event this information is protected by the Federal Confidentiality of Alcohol and Drug Abuse Patient Records regulations: The Federal rules restrict any use of the information to criminally investigate or prosecute any alcohol or drug abuse patient.TrihealthIn the event this information is protected by the Federal Confidentiality of Alcohol and Drug Abuse Patient Records regulations: The Federal rules restrict any use of the information to criminally investigate or prosecute any alcohol or drug abuse patient.TrihealthIn the event this information is protected by the Federal Confidentiality of Alcohol and Drug Abuse Patient Records regulations: The Federal rules restrict any use of the information to criminally investigate or prosecute any alcohol or drug abuse patient.TrihealthIn the event this information is protected by the Federal Confidentiality of Alcohol and Drug Abuse Patient Records regulations: The Federal rules restrict any use of the information to criminally investigate or prosecute any alcohol or drug abuse patient.[facility] INFORMATION SOURCE (unrecogn ized section and content) DATE CREATED AUTHOR 07/03/2022 [facility] DATE CREATED AUTHOR AUTHOR'S ORGANIZ ATION 03/13/2023 [facility] DATE CREATED AUTHOR AUTHOR'S ORGANIZ ATION 12/10/2023 [facility] DATE CREATED AUTHOR AUTHOR'S ORGANIZ ATION 02/02/2024 [facility] Care Teams (unrecognized sec tion and content) Suggestion Clerk Relationship Specialty Start Date End Date Brenda Landon MD [address] [id number] PCP - General Family Medicine 01/19/23 Suggestion Clerk Relationship Specialty Start Date End Date Brenda Landon MD [address] [place] [address] PCP - General Family Medicine 01/19/23 Suggestion Clerk Relationship Specialty Start Date End Date Brenda Landon MD [address] [place] [address] PCP - General Family Medicine 01/19/23 Suggestion Clerk Relationship Specialty Start Date End Date Brenda Landon MD [address] [place] [address] PCP - General Family Medicine 01/19/23 Suggestion Clerk Relationship Specialty Start Date End Date Brenda Landon MD [address] [place] [address] PCP - General Family Medicine 01/19/23 Suggestion Clerk Relationship Specialty Start Date End Date Brenda Landon MD [address] [id number] PCP - General Family Medicine 01/19/23 Suggestion Clerk Relationship Specialty Start Date End Date Brenda Landon MD [address] [id number] PCP - General Family Medicine 01/19/23 Suggestion Clerk Relationship Specialty Start Date End Date Brenda Landon MD PCP - General Family Medicine 01/19/23 Suggestion Clerk Relationship Specialty Start Date End Date Brenda Landon MD PCP - General Family Medicine 01/19/23 Suggestion Clerk Relationship Specialty Start Date End Date Brenda Landon MD PCP - General Family Medicine 01/19/23 Suggestion Clerk Relationship Specialty Start Date End Date Brenda Landon MD PCP - General Family Medicine 01/19/23 Suggestion Clerk Relationship Specialty Start Date End Date Brenda Landon MD PCP - General Family Medicine 01/19/23 Suggestion Clerk Relationship Specialty Start Date End Date Brenda Landon MD PCP - General Family Medicine 01/19/23 Suggestion Clerk Relationship Specialty Start Date End Date Brenda Landon MD PCP - General Family Medicine 01/19/23 Suggestion Clerk Relationship Specialty Start Date End Date Brenda Landon MD PCP - General Family Medicine 01/19/23 Suggestion Clerk Relationship Specialty Start Date End Date Brenda Landon MD PCP - General Family Medicine 01/19/23 Suggestion Clerk Relationship Specialty Start Date End Date Brenda Landon MD PCP - General Family Medicine 01/19/23 Suggestion Clerk Relationship Specialty Start Date End Date Brenda Landon MD PCP - General Family Medicine 01/19/23 Suggestion Clerk Relationship Specialty Start Date End Date Brenda Landon MD PCP - General Family Medicine 01/19/23 Suggestion Clerk Relationship Specialty Start Date End Date Brenda Landon MD PCP - General Family Medicine 01/19/23 Suggestion Clerk Relationship Specialty Start Date End Date Brenda Landon MD PCP - General Family Medicine 01/19/23 Suggestion Clerk Relationship Specialty Start Date End Date Brenda Landon MD PCP - General Family Medicine 01/19/23 Suggestion Clerk Relationship Specialty Start Date End Date Brenda Landon MD PCP - General Family Medicine 01/19/23 Suggestion Clerk Relationship Specialty Start Date End Date Brenda Landon MD PCP - General Family Medicine 01/19/23 Suggestion Clerk Relationship Specialty Start Date End Date Brenda Landon MD PCP - General Family Medicine 01/19/23 Suggestion Clerk Relationship Specialty Start Date End Date Brenda Landon MD PCP - General Family Medicine 01/19/23 Suggestion Clerk Relationship Specialty Start Date End Date Brenda Landon MD PCP - General Family Medicine 01/19/23 Suggestion Clerk Relationship Specialty Start Date End Date Brenda Landon MD PCP - General Family Medicine 01/19/23 Suggestion Clerk Relationship Specialty Start Date End Date Brenda Landon MD PCP - General Family Medicine 01/19/23 Suggestion Clerk Relationship Specialty Start Date End Date Brenda Landon MD PCP - General Family Medicine 01/19/23 Suggestion Clerk Relationship Specialty Start Date End Date Brenda Landon MD PCP - General Family Medicine 01/19/23 Suggestion Clerk Relationship Specialty Start Date End Date Brenda Landon MD PCP - General Family Medicine 01/19/23 Suggestion Clerk Relationship Specialty Start Date End Date Brenda Landon MD PCP - General Family Medicine 01/19/23 Suggestion Clerk Relationship Specialty Start Date End Date Brenda Landon MD PCP - General Family Medicine 01/19/23 Suggestion Clerk Relationship Specialty Start Date End Date Brenda Landon MD PCP - General Family Medicine 01/19/23 Suggestion Clerk Relationship Specialty Start Date End Date Brenda Landon MD PCP - General Family Medicine 01/19/23 Suggestion Clerk Relationship Specialty Start Date End Date Brenda Landon MD PCP - [facility] 01/19/23 Suggestion Clerk Relationship Specialty Start Date End Date Brenda Landon MD PCP - [facility] 01/19/23 Suggestion Clerk Relationship Specialty Start Date End Date Brenda Landon MD PCP - [facility] 01/19/23 Suggestion Clerk Relationship Specialty Start Date End Date Brenda Landon MD [facility] 01/19/23 FOR RECORDS PERTAINING TO PATIENTS WHO [...] BE BASED ON THE PRIMARY CLINICAL RECORDS. [facility] [employer] [facility]. provides no warranty or guarantee of the accuracy or completeness of information in this document.
[2024-03-21 17:31] LABS: Basophils Percent Auto 0.3 % (0.2-2.0); Eosinophils Absolute Auto 0.2 10^3/uL (0.0-0.7); Eosinophils Percent Auto 2.3 % (0.9-7.0); Hematocrit 41.9 % (36.0-48.0); Hemoglobin 13.7 g/dL (12.0-16.0); Immature Granulocytes Abs Auto 0.01 10^3/uL (0.00-0.03); Immature Granulocytes Pct Auto 0.2 % (0.0-0.5); Lymphocytes Absolute Auto 1.5 10^3/uL (1.2-3.8); Lymphocytes Percent Auto 22.9 % (20.5-60.0); Mean Corpuscular HGB Conc 32.7 g/dL (29.9-35.2); Mean Corpuscular Hemoglobin 29.7 pg (26.7-34.0); Mean Corpuscular Volume 90.9 fL (81.0-99.0); Mean Platelet Volume 9.8 fL (9.5-13.5); Monocytes Absolute Auto 0.6 10^3/uL (0.3-0.8); Neutrophils Absolute Auto 4.3 10^3/uL (1.4-6.5); Neutrophils Percent Auto 65.3 % (43.0-75.0); Platelet Count 244 10^3/uL (150-450); Red Blood Count 4.61 10^6/uL (4.20-5.40); Red Cell Distribution Width 14.2 % (11.0-15.0); White Blood Count 6.5 10^3/uL (4.0-11.0)
[2024-03-21 18:06] LABS: Erythrocyte Sedimentation Rate 27 mm/hr (<=20)
[2024-03-21 18:27] LABS: C Reactive Protein <0.50 mg/dL (<=0.50); Free T3 2.81 pg/mL (2.18-3.98); Thyroid Stimulating Hormone 1.612 uIU/mL (0.358-3.740)
[2024-03-23 04:12] LABS: FSH 1.7 mIU/mL (.); Progesterone 10.4 ng/mL (.)
== END 2024-03-21 17:08 | disposition home or self-care (01) ==
PROVIDERS: PCP Family Medicine; Visit Provider Family Medicine
DX: R53.83 Other fatigue (principal)
CPT/HCPCS: 36415; 82670; 83001; 83002; 84144; 84436; 84443; 84481; 85025; 85652; 86140

== ENCOUNTER 2025-05-10 09:35 | Outpatient (OUT) | payer OTHER, SELFPAY ==
[2025-05-10 09:53] LABS: Basophils Percent Auto 0.5 % (0.2-2.0); Eosinophils Absolute Auto 0.2 10^3/uL (0.0-0.7); Eosinophils Percent Auto 2.9 % (0.9-7.0); Hemoglobin 14.6 g/dL (12.0-16.0); Immature Granulocytes Abs Auto 0.02 10^3/uL (0.00-0.03); Immature Granulocytes Pct Auto 0.3 % (0.0-0.5); Lymphocytes Absolute Auto 1.2 10^3/uL (1.2-3.8); Lymphocytes Percent Auto 15.7 % (20.5-60.0); Mean Corpuscular HGB Conc 32.4 g/dL (29.9-35.2); Mean Corpuscular Hemoglobin 31.1 pg (26.7-34.0); Mean Corpuscular Volume 95.9 fL (81.0-99.0); Mean Platelet Volume 9.4 fL (9.5-13.5); Monocytes Absolute Auto 0.6 10^3/uL (0.3-0.8); Monocytes Percent Auto 8.6 % (1.7-12.0); Neutrophils Absolute Auto 5.4 10^3/uL (1.4-6.5); Platelet Count 288 10^3/uL (150-450); Red Blood Count 4.69 10^6/uL (4.20-5.40); Red Cell Distribution Width 13.2 % (11.0-15.0); White Blood Count 7.5 10^3/uL (4.0-11.0)
[2025-05-10 09:57] LABS: Bilirubin Urine NEGATIVE (NEGATIVE); Blood Urine NEGATIVE (NEGATIVE); Clarity Urine CLEAR (CLEAR); Color Urine LT. YELLOW (YELLOW); Glucose Urine UA NEGATIVE (NEGATIVE); Ketones Urine NEGATIVE (NEGATIVE); Leukocyte Esterase Urine TRACE (NEGATIVE); Nitrite Urine NEGATIVE (NEGATIVE); Protein Urine NEGATIVE (NEG/TRACE); Specific Gravity Urine <=1.005 (1.005-1.025); Urobilinogen Urine 0.2 EU/dL (0.2-1.0)
[2025-05-10 10:08] LABS: Erythrocyte Sedimentation Rate 14 mm/hr (<=20)
[2025-05-10 10:17] LABS: Bacteria Urine TRACE #/HPF (NONE SEEN); Cast Seen? NONE SEEN #/LPF (NONE SEEN); Crystals Seen? None Seen #/HPF (None Seen); Mucus Urine TRACE (NONE SEEN); RBC Urine NONE SEEN #/HPF (0-2); Squamous Epithelial Cell Urine FEW #/LPF (NONE/RARE); Urine Culture Indicated ALREADY ORDERED; WBC Urine 0-2 #/HPF (NONE SEEN)
[2025-05-10 10:50] LABS: Alanine Aminotransferase 13 U/L (14-59); Albumin Globulin Ratio 1.1; Albumin Level 3.9 g/dL (3.4-5.0); Alkaline Phosphatase 63 U/L (46-116); Anion Gap 13.5; Aspartate Amino Transferase 14 U/L (15-37); BUN Creatinine Ratio 15.7; Bilirubin Total 0.6 mg/dL (0.2-1.0); C Reactive Protein <0.50 mg/dL (<=0.50); Calcium 9.6 mg/dL (8.5-10.1); Carbon Dioxide 28.1 mmol/L (21.0-32.0); Chloride 102 mmol/L (98-107); Estimated GFR (African America >60 (>=60 mL/min/1.73m^2); Estimated GFR (Non-African Ame >60 (>=60 mL/min/1.73m^2); Globulin 3.7 g/dL; Glucose 94 mg/dL (74-106); Potassium 4.6 mmol/L (3.5-5.1); Sodium 139 mmol/L (136-145); Total Protein 7.6 g/dL (6.4-8.2)
== END 2025-05-10 09:36 | disposition home or self-care (01) ==
PROVIDERS: PCP Family Medicine; Visit Provider Family Medicine
DX: N39.43 Post-void dribbling (principal)
CPT/HCPCS: 36415; 80053; 81001; 85025; 85652; 86140; 87086

== ENCOUNTER 2025-08-31 07:43 | Outpatient (OUT) | payer OTHER, SELFPAY ==
--- OUTSIDE RECORDS SUMMARY | 2025-08-30 04:30 | XMS_ITS ---
Author Organization [facility] [place] Address [address] [place] [address] Care Team Providers Care Card Boxer Name Role Phone Luis Coker Primary Care Provider [phone] Allergies Allergen (clinical drug ingredient) Drug/Non Drug Allergy documented on EMR Reaction Allergy Type Onset Date Status morphine Morphine passed out Drug Allergy Active REASON FOR VISIT Presents to office alone to discuss meds, Discuss weight loss. Is unintentionaly losing weight, Says has just not felt right since partial hysterectomy Medications Medication SIG (Take, Route, Fr equency, Duration) Notes Start Date End Date Status Wellbutrin XL 300 MG 1 tablet in the mor sandi Orally Once a day; Duration: 30 days 08/30/2025 Ac tive Social History Tobacco Use: Social History Observation Description Date Details (start date - stop date) Former Smoker 11/28/2000 - 11/28/2023 Tobacco Use/Smoking Question Answer Notes Patient is a former smoker When did you start smoking? 11/28/2000 When did you stop smoking? 11/28/2023 How long has it been since you last smoked? 1-3 months Additional Findings: Tobacco Non-User Ex-light c igarette smoker (1-9/day) AUDIT-C (Standard) Question Answer Notes Did you have a drink containing alcohol in the p ast year? No Points 0 Interpretation Negative Vital Signs Weight 120.4 lbs 08/30/2025 Height 63 in 08/30/2025 Blood pressure systolic 102 mm Hg 08/30/20 25 Blood pressure diastolic 60 mm Hg 025 BMI 21.33 kg/m2 08/30/2025 Encounters Encounter Location Date Provider Diagnosis [facility] [address] [place] [address] 08/30/2025 Luis Coker Weight loss R63.4 ; Fatigue R53.83 ; Crohn disease K50.90 and Ankylosing spondylitis M45.9 Assessments Encounter Date Diagnosis (ICD Code) Assessment Notes Treatment Notes Treatment Clinical Notes Section Notes 08/30/2025 Weight loss (ICD-10 - R63.4) 08/30/2025 Fatigue (ICD-10 - R53.83) 08/30/2025 Crohn disease (ICD-10 - K50.90) 08/30/2025 Ankylosing spondylitis (ICD-10 - M45.9) Plan Of Treatment Medication Medication Name Sig Start Date Stop Date Notes Wellbutrin XL 300 MG 1 tablet in the mor sandi Orally Once a day; Duration: 30 days 08/30/2025 Pending Test Test Name Order Date HEMOGLOBIN A1C (GLYCO) 08/30/2025 IRON, TOTAL 08/30/2025 LIPID PANEL (CHOL/TRIG/HDL/LDL) 08/30/20 25 VITAMIN D, 25 LEVEL (TOTAL) 08/30/2025 Urinalysis Microscopic 08/30/2025 Insulin Level 08/30/2025 FSH+LH+Prog+E2 08/30/2025 STOOL OCCULT BLOOD 08/30/2025 CRP 08/30/2025 CULTURE URINE 08/30/2025 PROLACTIN 08/30/2025 SED RATE WESTERGREN 08/30/2025 THYROID PANEL (T4/TSH/FREE T3) CMP (COMP MET SEXTON) w/eGFR CKD-EPI 2024 CBC WITH DIFF 08/30/2025 Progress Notes * Jocelyne LUCAS RDOB:0 1985 (40 yo F)Acc No.[id number]:08/30/2025 UNLOCKED PROGRESS NOTE Progress Note Patient: Jocelyne ENG Provider: Elisa Coker (TTC)MD :1985 A ge:40 Y S ex:Female Date:08/30/2025 Address:[address] [place] [address] [place], [id number] Check In:08:32 AM ESTCheck O ut:09:13 AM EST Subjective: * Chief Complaints: * 1 . Presents to office alone to discuss meds. 2. Discuss weight loss. Is unintentionaly losing weight. 3. Says has just not felt right since partial hysterectomy. * ROS: E ENT: hearing changes d enies. v isual changes d enies.?non-healing mouth sores d enies. s wollen glands or neck lumps d enies. h oarseness d enies. s ore throat d enies. d ifficulty swallowing d enies. n ose bleeds d enies. n chayito congestion d enies. e ar ache d enies. e ar discharge?denies. r inging in ears d enies. l ight sensitivity d enies. e ye pain d enies. b lurring d enies. e ye irritation d enies. d ouble vision d enies.?vision loss d enies. G eneral/Constitutional: Sweats: D enies. F atigue d enies. S leep problems d enies. A norexia d enies. M alaise d enies. W eight loss d enies.?Fatigue or Weakness d enies. F ever or Chills d enies. C ardiovascular: Shortness of Breath w/lying flat d enies. L ightheadedness/dizziness d enies. C hest tightness/ heavy pressure d enies. S welling of legs, ankles, or feet d enies. W aking up with shortness of breath d enies. C hest pain denies. P alpitations d enies. W eight gain d enies. R espiratory: Chronic or frequent cough d enies. C oughing up blood?denies. D ifficulty breathing d enies. P roductive cough d enies. S noring?denies. S hortness of breath that awakens from sleep (PND) d enies. C hest pain d enies. S putum production d enies. W heezing d enies. M usculoskeletal: Joint pain d enies. J oint Fluid d enies. B ack pain d enies. K nee pain d enies. N eliceo pain d enies. J oint Stiffness d enies. M uscle cramps d enies. W eakness of muscles d enies. A rthritis d enies. M uscle aches d enies. P ain in shoulder(s) d enies. S wollen joints d enies. * Medical History: C rohn disease, Ankylosing spondylitis, COVID-19, Eczema, Hydronephrosis, Nephrolithiasis, Kidney stones, Bilateral sacroiliitis. * Surgical History: E lective 06/2018, Cystoscopy 2019, Small bowel resection- Dr Shaffer 01/2023, lap hysterectomy 11/2023. * Hospitalization/Major Diagno stic Procedure: s ee above . * Family History: F ather: alive 67 yrs, hypertension, diagnosed with Hypertension. M other: alive 67 yrs.?Sister(s): alive. S on(s): alive. 1 sister(s) - healthy. 2 son(s) - healthy. . * Social History: T obacco Use: T obacco Use/Smoking P atient is a f ormer smoker W hen did you start smoking? 0 11/28/2000 W hen did you stop smoking? 0 11/28/2023 H ow long has it been since you last smoked??1-3 months A dditional Findings: Tobacco Non-User E x-light cigarette smoker (1-9/day) D rug/Alcohol: A AMARA-C (Standard) D id you have a drink containing alcohol in the past year? N o P oints 0 I nterpretation N egative * Medications: T aking Wellbutrin XL(buPROPion HCl ER (XL)) 300 MG Tablet Extended Release 24 Hour 1 tablet in the morning Orally Once a day , Discontinued Macrobid(Nitrofurantoin Monohyd Macro) 100 MG Capsule 1 capsule with food Orally every 12 hrs , Discontinued Pyridium(Phenazopyridine HCl) 200 MG Tablet 1 tablet after meals Orally Three times a day , Discontinued Tolterodine Tartrate ER 2 MG Capsule Extended Release 24 Hour 1 capsule Orally Once a day , Medication List reviewed and reconciled with the patient * Allergies: M orphine: passed out - Allergy. Objective: * Vitals: W t:120.4lbs, Ht: 63 in, BP:102/60mm Hg, BMI:21.33Index, Ht-cm: 160.02 cm, Wt-k.61 kg. * Examination: P hysical Exam: GENERAL: w ell developed, well nourished, in no acute distress. HEAD: n ormocephalic/atraumatic. EYES: p upils equal, round and reactive to light, conjunctivae and sclerae normal. EARS: n o deformity or lesion of external ear, canals and TM appear normal bilaterally, TM's intact, not inflamed with normal light reflex, hearing grossly normal to conversational speech. NOSE: n o deformity, discharge, inflammation, or lesions.? MOUTH: m ucous membranes moist, normal oropharynx and posterior pharynx without lesions or exudates, tongue normal, dentition normal. NECK: n eliceo supple, no masses or palpable cervical nodes, trachea midline, thyroid without nodules, masses, tenderness, or enlargement. CHEST: n o chest wall deformity, no chest wall tenderness.? LUNGS: n ormal respiratory effort and clear to auscultation, no wheezes, rales, or rhonchi, good air exchange. CARDIO: r egular rate and rhythm, normal S1 and S2, nor murmur, rub, or gallop. PULSES: n ormal capillary refill. ABDOMEN: s oft, non-distended, non-tender, no masses. MUSCULOSKELETAL: n o deformity or scoliosis noted, normal range of motion, joints normal, no erythema, edema, effusion, or ecchymosis. EXTREMITY: n o clubbing, cyanosis, edema, or deformity with normal ROM in both upper and lower bilateral extremities. NEUROLOGIC: g rossly normal. SKIN: n o rashes, ulcerations, or suspicious lesions. LYMPH NODES: n o cervical adenopathy, nodes normal. MENTAL STATUS: a lert and oriented x3, normal mood and affect. Assessment: * Assessment: 1. W eight loss - R63.4 (Primary) 2 . F atigue - R53.83 3 .?Crohn disease - K50.90 4 . A nkylosing spondylitis - M45.9 ? Plan: * Treatment: 2. F atigue L AB: HEMOGLOBIN A1C (GLYCO) L AB: IRON, TOTAL L AB: LIPID PANEL (CHOL/TRIG/HDL/LDL) L AB: VITAMIN D, 25 LEVEL (TOTAL) L AB: Insulin Level L AB: STOOL OCCULT BLOOD L AB: THYROID PANEL (T4/TSH/FREE T3) L AB: CMP (COMP MET SEXTON) w/eGFR CKD-EPI L AB: CBC WITH DIFF 3. C rohn disease L AB: HEMOGLOBIN A1C (GLYCO) L AB: IRON, TOTAL L AB: LIPID PANEL (CHOL/TRIG/HDL/LDL) L AB: VITAMIN D, 25 LEVEL (TOTAL) L AB: Insulin Level L AB: STOOL OCCULT BLOOD L AB: THYROID PANEL (T4/TSH/FREE T3) L AB: CMP (COMP MET SEXTON) w/eGFR CKD-EPI L AB: CBC WITH DIFF 4. A nkylosing spondylitis L AB: HEMOGLOBIN A1C (GLYCO) L AB: IRON, TOTAL L AB: LIPID PANEL (CHOL/TRIG/HDL/LDL) L AB: VITAMIN D, 25 LEVEL (TOTAL) L AB: Insulin Level L AB: STOOL OCCULT BLOOD L AB: THYROID PANEL (T4/TSH/FREE T3) L AB: CMP (COMP MET SEXTON) w/eGFR CKD-EPI L AB: CBC WITH DIFF * * Electronic signature of Luis Coker MD, [id number] on 08/31/2025 at 07:45 AM EDT Sign off status: Pending Visit Status: Josseline GORE (Check Out) * Provider: Elisa Coker (TTC)MD Date: Generated for Printi ng/Faxing/eTransmitting on: 07:45 AM EDT History and Physical Notes * Examination Category Sub-Category Detail Notes Category Not es Physical Exam GENERAL: well developed, well nourished, in no acute distress HEAD: normocephalic/atraum atic EYES: pupils equal, round and reactive to light, conjunctivae and sclerae normal EARS: no deformity or lesi on of external ear, canals and TM appear normal bilaterally, TM's intact, not inflamed with normal light reflex, hearing grossly normal to conversational speech NOSE: no deformity, discha rge, inflammation, or lesions MOUTH: mucous membranes m[address] st, normal oropharynx and posterior pharynx without lesions or exudates, tongue normal, dentition normal NECK: neck supple, no mass es or palpable cervical nodes, trachea midline, thyroid without nodules, masses, tenderness, or enlargement CHEST: no chest wall deform ity, no chest wall tenderness LUNGS: normal respiratory e ffort and clear to auscultation, no wheezes, rales, or rhonchi, good air exchange CARDIO: regular rate and rhy thm, normal S1 and S2, nor murmur, rub, or gallop PULSES: normal capillary ref ill ABDOMEN: soft, non-distended, non-tender, no masses RECTAL: MUSCULOSKELETAL: no deformity or scol iosis noted, normal range of motion, joints normal, no erythema, edema, effusion, or ecchymosis EXTREMITY: no clubbing, cyanosi s, edema, or deformity with normal ROM in both upper and lower bilateral extremities NEUROLOGIC: grossly normal SKIN: no rashes, ulceratio ns, or suspicious lesions LYMPH NODES: no cervical adenopat hy, nodes normal MENTAL STATUS: alert and oriented x 3, normal mood and affect
--- OUTSIDE RECORDS SUMMARY | 2025-08-31 07:46 | XMS_ITS | Patient Health Record ---
Author Organization [facility] Address [address] [place] [address] Care Team Providers Care Absence Management Consultant Name Role Phone Jeremy Coker Primary Care Provider Mindy Hamlin Unavailable Allergies Allergen (clinical drug ingredient) Drug/Non Drug Allergy documented on EMR Reaction Allergy Type Onset Date Status cefdinir Cefdinir gastrointestinal upset Drug Allergy Active morphine Morphine was passing out as it was given IV Drug Allergy Active Results Component Value Reference Range Notes Flu/COVID Rapid Antigen (IH) Reviewed date:01/21/2025 09:41:19 AM Interpretation:Negative Performing Lab: Notes/Report: Negative Flu A NEGATIVE Negative - Positive Flu B NEGATIVE Negative - Positive SARS CoV 2 NEGATIVE Negative - Positive Reason For Referral No Information Medications Medication SIG (Take, Route, Frequency, Duration) Notes Start Date End Date Status Rinvoq Active Vitamin D3 Active Oseltamivir Phosphate 75 MG 1 capsule Or ally Twice a day; Duration: 5 day(s) 01/21/2025 Active Immunizations Vaccine Route Administration Date Status Comme nts Flu Vaccine (Given in Past) Unspecified Unknown 01/30/2023 Administered Social History Tobacco Use: Social History Observation Description Date Details (start date - stop date) Former Smoker NA - NA Tobacco Control (Standard) Question Answer Notes Tobacco use: Former smoker How long has it been since you last smoked? 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 Vital Signs Temperature 98.5 degrees Fahrenheit 01/21/2025 Respiratory Rate 16 /min 01/21/2025 Blood pressure diastolic 64 mm Hg 01/21/2025 Height 063 in 01/21/2025 Blood pressure systolic 98 mm Hg 01/21/2025 Weight 0135 lbs 01/21/2025 BMI 23.91 kg/m2 01/21/2025 Encounters Encounter Location Date Provider Diagnosis [id number] [facility] [place] [address] 01/21/2025 Mindy Crowley Encounter for screening for COVID-19 Z11.52 ; Influenza-like illness J11.1 and Exposure to influenza Z20.828 Assessments Encounter Date Diagnosis (ICD Code) Assessment Notes Treatment Notes Treatment Clinical Notes Section Notes 01/21/2025 Influenza-like illness (ICD-10 - J11.1) Influenza (Flu): Care Instructions material was published Symptoms appear viral in nature. If symptoms persist or worsen, follow up in the clinic or with PCP for further evaluation. Patient will contact [facility] GI specialist to verify that she is able to take the tamiflu with her current treatment plan for crohns prior to starting the medication. Patient agreeable and verbalized understanding. A viral respiratory infection is an infection of the nose, sinuses, or throat caused by a virus. Colds and the flu are common types of viral respiratory infections. The symptoms of a viral respiratory infection often start quickly. They include a fever, sore throat, and runny nose. You may also just not feel well. Or you may not want to eat much. Most viral infections can be treated with home care. This may include drinking lots of fluids and taking mqnh-ezu-ducprkw pain medicine. You will probably feel better in 4 to 10 days. Antibiotics are not used to treat a viral infection. Antibiotics don't kill viruses, so they won't help cure a viral illness. In some cases, a doctor may prescribe antiviral medicine to help your body fight a serious viral infection. Follow-up care is a [place] part of your treatment and safety. Be sure to make and go to all appointments, and call your doctor if you are having problems. It's also a good idea to know your test results and keep a list of the medicines you take. How can you care for yourself at home? To prevent dehydration, drink plenty of fluids. Choose water and other clear liquids until you feel better. If you have kidney, heart, or liver disease and have to limit fluids, talk with your doctor before you increase the amount of fluids you drink. Ask your doctor if you can take an fjbw-rjw-sgnxbys pain medicine, such as acetaminophen (Tylenol), ibuprofen (Advil, Motrin), or naproxen (Aleve). Be safe with medicines. Read and follow all instructions on the label. No one younger than 20 should take aspirin. It has been linked to Vinicius syndrome, a serious illness. Be careful when taking obpn-pqi-twjajio cold or flu medicines and Tylenol at the same time. Many of these medicines have acetaminophen, which is Tylenol. Read the labels to make sure that you are not taking more than the recommended dose. Too much acetaminophen (Tylenol) can be harmful. Get plenty of rest. Use saline (saltwater) nasal washes to help keep your nasal passages open and wash out mucus and allergens. You can buy saline nose sprays at a grocery store or drugstore. Follow the instructions on the package. Or you can make your own at home. Add 1 teaspoon of non-iodized salt and 1 teaspoon of baking soda to 2 cups of distilled or boiled and cooled water. Fill a squeeze bottle or neti pot with the nasal wash. Then put the tip into your nostril, and lean over the sink. With your mouth open, gently squirt the liquid. Repeat on the other side. Use a vaporizer or humidifier to add moisture to your bedroom. Follow the instructions for cleaning the machine. Do not smoke or allow others to smoke around you. If you need help quitting, talk to your doctor about stop-smoking programs and medicines. These can increase your chances of quitting for good. When should you call for help? < img width= 39 alt= height= 45 > Call 911 anytime you think you may need emergency care. For example, call if: You have severe trouble breathing. Call your doctor now or seek immediate medical care if: You have a new or higher fever. Your fever lasts more than 48 hours. You have trouble breathing. You have a fever with a stiff neck or a severe headache. You are sensitive to light. You feel very sleepy or confused. Watch closely for changes in your health, and be sure to contact your doctor if: You do not get better as expected. From <https://emr.[employer].net/Launch?h w.venegas=[email or web address] [id number] [id number] [id number]&[id number]> 01/21/2025 Encounter for screening for COVID-19 (ICD-10 - Z11.52) 7 Reasons You May Need a COVID-19 Viral Test material was published The rapid COVID & FLU test was completed at this visit. Results published on the patient portal. Follow up in the clinic or with PCP as needed 01/21/2025 Exposure to influenza (ICD-10 - Z20.828) Viral Infections: Care Instructions material was published Will send over tamiflu for treatment of suspected influenza since her child tested positive today. Patient will contact [facility] GI specialist to verify that she is able to take the tamiflu with her current treatment plan for crohns prior to starting the medication. Follow up in the clinic or with PCP as needed 01/21/2025 Other Oseltamivir material was published Visit summary given to and discussed with patient and/or parent who verbalizes understanding and agreement with plan of care. Thank you for your visit. Please look for the satisfaction survey that you will receive via email. We look forward to receiving your feedback regarding your experience at [facility]. Plan Of Treatment No Information Insurance Providers Payer Name Payer Address Payer Phone Subscriber Number Group Number Insured Name Patient Relationship to Insured Coverage Start Date Coverage End Date [facility] [address] [place] [address] [id number] [facility] patient is the insured Medical (General) History Medical History History ICD Code Crohn disease K50.90 Juvenile arthritis M08.90 History of ankylosing spondylitis Z87.39 Surgical History Surgery Date(Month/Year) colon resection 11/2022 hysterectomy 11/2023 x2 Hospitalization History Reason Date(Month/Year) surgeries DVT during childbirth
--- OUTSIDE RECORDS SUMMARY | 2025-08-31 07:46 | XMS_ITS | Encounter Summary ---
Author Organization [facility] Address [address] [place] [address] Care Team Providers Care Supervisor Stripping Name Role Phone Jeremy Coker MD Primary Care Provider [phone] Encounter Details Date Type Department Care Team (Latest Contact Info) Description 06/20/2018 Order Senior Management Consultant [facility] Floor [address] [place] [address] Jeremias Butler MD [address] [place] [address] Congenital anomalies Social History Tobacco Use Types Packs/Day Years Used Date Smoking Tobacco: Never Assessed Comments Unknown Sex and Gender Information Value Date Recorded Sex Assigned at Not on file Legal Sex Female 3:06 PM EDT Gender Identity Not on file Sexual Orientation Not on file documented as of this encounter Plan of Treatment Not on file documented as of this encounter Results * US OB < 14 Weeks (06/21/2018 11:16 AM EDT) Anatomical Region Laterality Modality Pelvis Ultrasound 06/21/2018 11:1 6 AM EDT us Jeremias Butler MD RAD [facility] US ORDERS Final R esult documented in this encounter Visit Diagnoses Diagnosis Congenital anomalies Multiple congenital anomalies, so described documented in this encounter Care Teams Supervisor Stripping Relationship Specialty Start Date End Date Jeremy Coker MD [address] [place] [address] PCP - General Family Medicine 06/20/18 documented as of this encounter
--- OUTSIDE RECORDS SUMMARY | 2025-08-31 07:46 | XMS_ITS | Encounter Summary ---
Author Organization [facility] Address [address] [place] [address] Care Team Providers Care Grease Maker Name Role Phone Jeremy Coker MD Primary Care Provider + Val Yates RD Unavailable Source Comments In the event this information is protected by the Federal Confidentiality of Alcohol and Drug AbusePatient Records regulations: The Federal rules restrict any use of the information to criminally investigate or prosecute any alcohol or drug abuse patient.[facility] Encounter Details Date Type Department Care Team ([facility] Contact Info) Description 01/02/2025 Patient Msg Gastroenterology [address] [address] Rajeev Israel PA-C [address] [address] Appointment Request Social History Tobacco Use Types Packs/Day Years Used Date Smoking Tobacco: Former Cigarettes 0.5 25 1 12/21/1997 - 10/21/2023 Passive Smoke Exposure: Current Smokeless Tobacco: Never Alcohol Use Standard Drinks/Week Comments Yes 0 (1 standard drink = 0.6 oz pur e alcohol) 2 drinks a week PHQ-2 Answer Date Recorded PHQ-2 score 2 01/18/2023 Area Deprivation Index Answer Date Nadeem rded National Score (1-100), lower number is lower ri sk 64 04/13/2023 State Score (1-10), lower number is lower risk 4 04/13/2023 Data from: https://www.neighborhoodatlas.medicine.[facility]/. Last address used for calculation [id number] [place] [address] Rd [address] 04/13/2023 Comments No Sex and Gender Information Value Date Recorded Sex Assigned at Not on file Legal Sex Female 4:17 PM EDT Gender Identity Not on file Sexual Orientation Not on file documented as of this encounter Functional Status * Are you deaf or do you have serious difficulty hearing? Answer Date of Assessment Author No 12/23/2023 1:34 PM Sarah Barrios RN * Are you blind or do you have serious difficulty seeing, even when wearing glasses? Answer Date of Assessment Author No 12/23/2023 1:34 PM Sarah Barrios RN * Do you have serious difficulty walking or climbing stairs? Answer Date of Assessment Author No 12/23/2023 1:34 PM Sarah Barrios RN * Do you have difficulty dressing or bathing? Answer Date of Assessment Author No 12/23/2023 1:34 PM Sarah Barrios RN * Because of a physical, mental, or emotional condition, do you have difficulty doing errands alone such as visiting a doctor's office or shopping? Answer Date of Assessment Author No 12/23/2023 1:34 PM Sarah Barrios RN documented as of this encounter Mental Status * Because of a physical, mental, or emotional condition, do you have serious difficulty concentrating, remembering, or making decisions? Answer Entry Date Author No 12/23/2023 1:34 PM Sarah Barrios RN documented in this encounter Plan of Treatment Upcoming Encounters Date Type Department Care Team (Late st Contact Info) Description 07/11/2026 9:00 AM EDT Office Visit OPHT Ophthalmology [address] [place] [address] Sai Corbin, OD [address] [place] [address] Diagnostics, Eye Tech And [address] [place], [place] [id number] 1 year documented as of this encounter Visit Diagnoses Not on filedocumented in this encounter Care Teams Grease Maker Relationship Specialty Start Date End Date Jeremy Coker MD PCP - General Family Medicine 01/19/[address] [place] [address] Registered Dietitian Nutrition 11/15/24 documented as of this encounter
--- OUTSIDE RECORDS SUMMARY | 2025-08-31 07:46 | XMS_ITS | Encounter Summary ---
Author Organization [facility] Address [address] [place] [address] Care Team Providers Care Replanting Machine Crew Name Role Phone Jeremy Coker MD Primary Care Provider + Val Yates JANICE Unavailable [phone] Source Comments In the event this information is protected by the Federal Confidentiality of Alcohol and Drug AbusePatient Records regulations: The Federal rules restrict any use of the information to criminally investigate or prosecute any alcohol or drug abuse patient.[facility] Encounter Details Date Type Department Care Team (Late st Contact Info) Description 06/14/2025 Patient Msg HOSP MAIN H060 [address] [place] [address] Provider, Ccf Sign up to manage your digestive symptoms in between visits, covered by insurance Social History Tobacco Use Types Packs/Day Years [...] is lower risk 4 04/13/2023 Data from: https://www.neighborhoodatlas.medicine.[facility]/. Last address used for calculation [id number] [place] [address] [address] 04/13/2023 Comments No Sex and [...] AM EDT Office Visit [facility]HT Ophthalmology [address] [place] [address] Sai Corbin, OD [address] [place], [place] [id number] Diagnostics, Eye Tech And [address] [address] 1 year documented as of this encounter Visit Diagnoses Not on filedocumented in this encounter Care Teams Replanting Machine Crew Relationship Specialty Start Date End Date Jeremy Coker MD PCP - General Family Medicine 01/19/[address] [place] [address] Registered Dietitian Nutrition 11/15/24 documented as of this encounter
--- OUTSIDE RECORDS SUMMARY | 2025-08-31 07:46 | XMS_ITS | Encounter Summary ---
Author Organization [facility] Address [address] [place] [address] Care Team Providers Care Health Assistant Name Role Phone Jeremy Coker MD Primary Care Provider + Val Yates RD Unavailable [phone] Source Comments In the event this information is protected by the Federal Confidentiality of Alcohol and Drug AbusePatient Records regulations: The Federal rules restrict any use of the information to criminally investigate or prosecute any alcohol or drug abuse patient.[facility] Encounter Details Date Type Department Care Team (Late st Contact Info) Description 08/18/2023 Get Medical Advice Gynecology [address] [place] [address] Adrien Cruz MD [address] [phone] Appointment Isssue Social History Tobacco Use Types Packs/Day Years Used Date Smoking Tobacco: Every Day Cigarettes Smokeless Tobacco: Never Alcohol Use Standard Drinks/Week Comments Yes 0 (1 standard drink = 0.6 oz pur e alcohol) Twice a week PHQ-2 Answer Date Recorded PHQ-2 score 2 01/18/2023 Area Deprivation Index Answer Date Nadeem rded National Score (1-100), lower number is lower ri sk 64 04/13/2023 State Score (1-10), lower number is lower risk 4 04/13/2023 Data from: https://www.neighborhoodatlas.medicine.[facility]/. Last address used for calculation [address] 04/13/2023 Comments No Sex and Gender Information Value Date Recorded Sex Assigned at Not on file Legal Sex Female 4:17 PM EDT Gender Identity Not on file Sexual Orientation Not on file documented as of this encounter Functional Status * Are you deaf or do you have serious difficulty hearing? Answer Date of Assessment Author No 03/08/2023 3:49 PM EDT Roro Sifuentes RN * Are you blind or do you have serious difficulty seeing, even when wearing glasses? Answer Date of Assessment Author No 03/08/2023 3:49 PM EDT Roro Sifuentes RN * Do you have serious difficulty walking or climbing stairs? Answer Date of Assessment Author No 03/08/2023 3:49 PM EDT Roro Sifuentes RN * Do you have difficulty dressing or bathing? Answer Date of Assessment Author No 03/08/2023 3:49 PM ARLETT Roro Sifuentes RN * Because of a physical, mental, or emotional condition, do you have difficulty doing errands alone such as visiting a doctor's office or shopping? Answer Date of Assessment Author No 03/08/2023 3:49 PM ARLETT Roro Sifuentes RN documented as of this encounter Mental Status * Because of a physical, mental, or emotional condition, do you have serious difficulty concentrating, remembering, or making decisions? Answer Entry Date Author No 03/08/2023 3:49 PM ARLETT Roro Sifuentes RN documented in this encounter Plan of Treatment Upcoming Encounters Date Type Department Care Team (Late st Contact Info) Description 07/11/2026 9:00 AM EDT Office Visit OPHT Ophthalmology [address] [place] [address] Sai Corbin, OD [address] [place] [address] Diagnostics, Eye Tech And [address] [place], [place] [phone] 1 year documented as of this encounter Visit Diagnoses Not on filedocumented in this encounter Care Teams Health Assistant Relationship Specialty Start Date End Date Jeremy Coker MD PCP - General Family Medicine 01/19/[address] [place] [address] Registered Dietitian Nutrition 11/15/24 documented as of this encounter
--- OUTSIDE RECORDS SUMMARY | 2025-08-31 07:46 | XMS_ITS | Encounter Summary ---
Author Organization [facility] Address [address] [place] [address] Care Team Providers Care Fueler Name Role Phone Jeremy Coker MD Primary Care Provider + TrudyLakeisha armentara CAMACHO Unavailable [phone] Source Comments In the event this information is protected by the Federal Confidentiality of Alcohol and Drug AbusePatient Records regulations: The Federal rules restrict any use of the information to criminally investigate or prosecute any alcohol or drug abuse patient.[facility] Encounter Details Date Type Department Care Team (Late st Contact Info) Description 01/19/2023 Radiology Radiology [address] [place] [address] Mildred Chaves, RT(R) Social History Tobacco Use Types Packs/Day Years Used Date Smoking Tobacco: Every Day Cigarettes Smokeless Tobacco: Never Alcohol Use Standard Drinks/Week Comments Yes 0 (1 standard drink = 0.6 oz pur e alcohol) PHQ-2 Answer Date Recorded PHQ-2 score 2 01/18/2023 Area Deprivation Index Answer Date Nadeem rded National Score (1-100), lower number is lower ri sk 58 12/10/2022 State Score (1-10), lower number is lower risk N ot on file 12/10/2022 Data from: https://www.neighborhoodatlas.medicine.[facility]/. Last address used for calculation [address] 12/10/2022 Comments No Sex and Gender Information Value Date Recorded Sex Assigned at Not on file Legal Sex Female 4:17 PM EDT Gender Identity Not on file Sexual Orientation Not on file documented as of this encounter Progress Notes * Mildred Chaves RT(R) - 01/19/2023 11:03 AM EST Radiology Service Progress Note PATIENT NAME: Jocelyne Lucas DATE OF SERVICE: January 19, 2023 TIME: 11:03 AM PATIENT IDENTITY VERIFICATION COMPLETED USING TWO [...] IMPLANT DATA REVIEWED: Not Applicable RADIOLOGY DEPARTMENT: General X-ray: Exam(s) Completed: Spine X-Ray(s): Thoracic Pelvis X-Ray: sacroiliac joints PERIPHERAL IV DATA: Not applicable SIGNED BY: RT Janusz(R) January 19, 2023 11:03 AM documented in this encounter Plan of Treatment Upcoming Encounters Date Type Department Care Team (Late st Contact Info) Description 07/11/2026 9:00 AM EDT Office Visit OPHT Ophthalmology [address] [place] [address] Sai Corbin, OD [address] [place] [address] Diagnostics, Eye Tech And [address] [place] [address] 1 year documented as of this encounter Visit Diagnoses Not on filedocumented in this encounter Additional Health Concerns Infection Onset Date Last Indicated Resolved Time COVID-19 Rule-Out 03/07/2023 03/07/2023 03/07/2023 8:54 PM EDT COVID-19 Confirmed Comment:Patient has an anticipated 10 day isolation, will review on 03/16/2023. 03/07/2023 03/07/2023 03/17/2023 8:51 PM E DT documented as of this encounter Care Teams Fueler Relationship Specialty Start Date End Date Jeremy Coker MD PCP - General Family Medicine 01/19/[address] [place] [address] Registered Dietitian Nutrition 11/15/24 documented as of this encounter
--- OUTSIDE RECORDS SUMMARY | 2025-08-31 07:46 | XMS_ITS | Encounter Summary ---
Author Organization [facility] Address [address] [place] [address] Care Team Providers Care New Accounts Representative Name Role Phone Jeremy Coker MD Primary Care Provider + Val Yates RD Unavailable [phone] Source Comments In the event this information is protected by the Federal Confidentiality of Alcohol and Drug AbusePatient Records regulations: The Federal rules restrict any use of the information to criminally investigate or prosecute any alcohol or drug abuse patient.[facility] Encounter Details Date Type Department Care Team (Late st Contact Info) Description 04/08/2025 Patient Msg [facility] [address] [place] [address] Provider, Ccf Appointment to schedule Social History Tobacco Use Types Packs/Day Years [...] is lower risk 4 04/13/2023 Data from: https://www.neighborhoodatlas.medicine.[facility]/. Last address used for calculation [id number] [place] [address] [address] 04/13/2023 Comments No Sex and [...] AM EDT Office Visit OPHT Ophthalmology [address] [place] [address] Sai Corbin, OD [address] [place] [address] Diagnostics, Eye Tech And [address] [address] 1 year documented as of this encounter Visit Diagnoses Not on filedocumented in this encounter Care Teams New Accounts Representative Relationship Specialty Start Date End Date Jeremy Coker MD PCP - General Family Medicine 01/19/[address] [phone] Registered Dietitian Nutrition 11/15/24 documented as of this encounter
--- OUTSIDE RECORDS SUMMARY | 2025-08-31 07:46 | XMS_ITS | Clinical Summary ---
Author Organization [facility] Address [address] [place] [address] Care Team Providers Care Cloth Boil Off Machine Operator Name Role Phone Jeremy Coker MD Primary Care Provider [phone] Allergies Active Allergy Reactions Criticality Noted Date Comments Tramadol Other (See Comments) 06/19/2018 allergy Medications folic acid (FOLATE) 1 mg tablet Take 1 mg by mouth once daily. Active mesalamine 1.2 g delayed release tabletIndicatio ns:Crohn's disease Take 1,200 mg by mouth once daily. Indications: Crohn's Disease Active norethindrone (ORTHO MICRONOR) 0.35 mg tablet Take 1 tablet by mouth once daily. 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 Family History Medical History Relation Name Comments Heart attack Father Migraines Father Aortic disease Maternal Grandmother Hypertension Mother Hypothyroidism Mother Stroke Paternal Grandmother Relation Name Status Comments Father 64 years old Maternal Grandmother Mother Paternal Grandmother Social History Tobacco Use Types Packs/Day Years Used Date Smoking Tobacco: Former Cigarettes 0 06/26/2008 - 07/27/2008 Smokeless Tobacco: Never Alcohol Use Standard Drinks/Week Comments No 0 (1 standard drink = 0.6 oz pur e alcohol) Comments No Sex and Gender Information Value Date Recorded Sex Assigned at Not on file Legal Sex Female 3:06 PM EDT Gender Identity Not on file Sexual Orientation Not on file 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 Not on file Not on file Last Filed Vital Signs Vital Sign Reading Time Taken Comments Blood Pressure 97/41 06/28/2018 11:30 AM EDT Pulse 71 06/28/2018 11:30 AM EDT Temperature 36.8 C (98.2 F) 06/28/2018 11:30 AM EDT Respiratory Rate 20 06/28/2018 11:30 AM EDT Oxygen Saturation 100% 06/28/2018 11:30 AM EDT Inhaled Oxygen Concentration - - Weight 68 kg (150 lb) 06/28/2018 9:56 AM EDT Height 160 cm (5' 3 ) 06/27/2018 3:16 PM EDT Body Mass Index 26.57 06/27/2018 3:16 PM EDT Plan of Treatment Health Maintenance Due Date Last Done Comments Hepatitis C Screening 1983 Alternating Mammogram/MRI 1995 DTaP,Tdap,and Td Vaccines (1 - Tdap) 2002 Hepatitis B Vaccine ages 19 years and older (1 of 3 - 19+ 3-dose series) 2002 Breast Cancer Screening 2003 Mammogram 2003 Cervical Cancer Screening: Cytology 02/16/2004 COVID-19 Vaccine (1 - 2023-2 5 season) 2025 Influenza Vaccine (#1) 2025 Respiratory Syncytial Virus (RSV) or ages 60 years and older (1 - 1-dose 75+ series) 2058 Pneumococcal Combined Aged Out No anne nanette eligible based on patient's age to complete this topic Respiratory Syncytial Virus (RSV) ages 0 thru 19 months Aged Out No longer eligible based on patient's age to complete this topic Insurance BCBS OUT OF STATE PPO Care Teams Cloth Boil Off Machine Operator Relationship Specialty Start Date End Date Jeremy Coker MD [address] [place] [id number] PCP - General Family Medicine 06/20/18
--- OUTSIDE RECORDS SUMMARY | 2025-08-31 07:46 | XMS_ITS | Encounter Summary ---
Author Organization [facility] Address [address] [place] [address] Care Team Providers Care Collections Clerk Name Role Phone Jeremy Coker MD Primary Care Provider + Val Yates RD Unavailable [phone] Source Comments In the event this information is protected by the Federal Confidentiality of Alcohol and Drug AbusePatient Records regulations: The Federal rules restrict any use of the information to criminally investigate or prosecute any alcohol or drug abuse patient.[facility] Encounter Details Date Type Department Care Team (Late st Contact Info) Description 01/02/2024 Patient [facility] [address] [place], [place] [phone] Provider, Ccf IBD VIRTUAL EDUCATION for you by Drs. Brown & Concepción-- JOIN US! Social History Tobacco Use Types Packs/Day Years [...] is lower risk 4 04/13/2023 Data from: https://www.neighborhoodatlas.medicine.[facility]/. Last address used for calculation [address] 46 04/13/2023 Comments No Sex and [...] AM EDT Office Visit OPHT Ophthalmology [address] [place] [address] Sai Corbin, OD [address] [place] [address] Diagnostics, Eye Tech And [address] [address] 1 year documented as of this encounter Visit Diagnoses Not on filedocumented in this encounter Care Teams Collections Clerk Relationship Specialty Start Date End Date Jeremy Coker MD PCP - General Family Medicine 01/19/[address] [place] [address] Registered Dietitian Nutrition 11/15/24 documented as of this encounter
--- OUTSIDE RECORDS SUMMARY | 2025-08-31 07:46 | XMS_ITS | Clinical Summary ---
Author Organization [facility] Address [address] [place] [address] Care Team Providers Care Cigarette Tipper Name Role Phone Unavailable Primary Care Provider Unavailabl e Allergies No known active allergies Medications No known medications Active Problems No known active problems Social History Tobacco Use Types Packs/Day Years Used Date Smoking Tobacco: Never Smokeless Tobacco: Never Tobacco Cessation:Counseling Given: Not Answered Comments Unknown Sex and Gender Information Value Date Recorded Sex Assigned at Not on file Legal Sex Female 6:38 PM EDT Gender Identity Not on file Sexual Orientation Not on file Last Filed Vital Signs Vital Sign Reading Time Taken Comments Blood Pressure 110/76 07/28/2018 12:00 PM EDT Pulse - - Temperature - - Respiratory Rate - - Oxygen Saturation - - Inhaled Oxygen Concentration - - Weight 70.2 kg (154 lb 12.8 oz) 018 12:00 PM EDT Height 161.3 cm (5' 3.5 ) 02/21/2023 12 :00 PM EDT Body Mass Index 26.99 07/28/2018 12:00 PM EDT Plan of Treatment Not on file Insurance [employer]
--- OUTSIDE RECORDS SUMMARY | 2025-08-31 07:46 | XMS_ITS | Encounter Summary ---
Author Organization [facility] Address [address] [place] [address] Care Team Providers Care Test Center Administrator Name Role Phone Jeremy Coker MD Primary Care Provider + Val Yates RD Unavailable [phone] Source Comments In the event this information is protected by the Federal Confidentiality of Alcohol and Drug AbusePatient Records regulations: The Federal rules restrict any use of the information to criminally investigate or prosecute any alcohol or drug abuse patient.[facility] Encounter Details Date Type Department Care Team (Late st Contact Info) Description 12/18/2024 Patient Msg Gastroenterology [address] [place] [phone] Provider, Ccf Nutrition Notes Social History Tobacco Use Types Packs/Day Years [...] Score (1-100), lower number is lower ri 64 04/13/2023 State Score (1-10), lower number is lower risk 4 04/13/2023 Data from: https://www.neighborhoodatlas.medicine.[facility]/. Last address used for calculation [address] 04/13/2023 Comments No Sex and [...] AM EDT Office Visit OPHT Ophthalmology [address] [place] [address] Sai Corbin, OD [address] [place] [address] Diagnostics, Eye Tech And [address] [place] [address] 1 year documented as of this encounter Visit Diagnoses Not on filedocumented in this encounter Care Teams Test Center Administrator Relationship Specialty Start Date End Date Jeremy Coker MD PCP - General Family Medicine 01/19/[address] [place] [phone] Registered Dietitian Nutrition 11/15/24 documented as of this encounter
--- OUTSIDE RECORDS SUMMARY | 2025-08-31 07:46 | XMS_ITS | Clinical Summary ---
Author Organization [facility] Address [address] [place] [address] Phone Care Team Providers Care Environmental Conservation Professor Name Role Phone Jamel Rodriguez MD Primary Care Provider Unavailable Social History Tobacco Use Types Packs/Day Years Used Date Smoking Tobacco: Never Assessed Comments Unknown Sex and Gender Information Value Date Recorded Sex Assigned at Not on file Legal Sex Female 7:57 AM EST Gender Identity Not on file Sexual Orientation Not on file Plan of Treatment Not on file Care Teams Environmental Conservation Professor Relationship Specialty Start Date End Date Jamel Rodriguez MD PCP - General 08/17/12
--- OUTSIDE RECORDS SUMMARY | 2025-08-31 07:46 | XMS_ITS | Encounter Summary ---
Author Organization [facility] Address [address] [place] [address] Care Team Providers Care Public Policy Professor Name Role Phone Jeremy Coker MD Primary Care Provider + Val Yates RD Unavailable [phone] Source Comments In the event this information is protected by the Federal Confidentiality of Alcohol and Drug AbusePatient Records regulations: The Federal rules restrict any use of the information to criminally investigate or prosecute any alcohol or drug abuse patient.[facility] Encounter Details Date Type Department Care Team (Late st Contact Info) Description 12/20/2024 Patient Msg Gastroenterology [address] [address] Provider, Ccf Bowel Preparation Instructions Social History Tobacco Use Types Packs/Day Years [...] is lower risk 4 04/13/2023 Data from: https://www.neighborhoodatlas.[facility]/. Last address used for calculation [address] 46 04/13/2023 Comments No Sex and [...] AM EDT Office Visit OPHT Ophthalmology [address] [place] [address] Sai Corbin, OD [address] [place] [address] Diagnostics, Eye Tech And [address] [place] [place] [address] 1 year documented as of this encounter Visit Diagnoses Not on filedocumented in this encounter Care Teams Public Policy Professor Relationship Specialty Start Date End Date Jeremy Coker MD PCP - General Family Medicine 01/19/[address] [place] [address] Registered Dietitian Nutrition 11/15/24 documented as of this encounter
--- OUTSIDE RECORDS SUMMARY | 2025-08-31 07:46 | XMS_ITS | Encounter Summary ---
Author Organization [facility] Address [address] [place] [address] Care Team Providers Care Drafting Teacher Name Role Phone Jeremy Coker MD Primary Care Provider + Val Yates RD Unavailable [phone] Source Comments In the event this information is protected by the Federal Confidentiality of Alcohol and Drug AbusePatient Records regulations: The Federal rules restrict any use of the information to criminally investigate or prosecute any alcohol or drug abuse patient.[facility] Encounter Details Date Type Department Care Team ([facility] Contact Info) Description 04/05/2025 Patient Msg Gastroenterology [address] [id number] [place], [facility] [address] [phone] Pharmacist Appointment Social History Tobacco Use Types Packs/Day Years [...] is lower risk 4 04/13/2023 Data from: https://www.neighborhoodatlas.medicine.[facility]/. Last address used for calculation [address] 46 04/13/2023 Comments No [...] AM EDT Office Visit OPHT Ophthalmology [address] [place] [address] Sai Corbin, OD [address] [place] [address] Diagnostics, [facility] [address] [place] [address] 1 year documented as of this encounter Visit Diagnoses Not on filedocumented in this encounter Care Teams Drafting Teacher Relationship Specialty Start Date End Date Jeremy Coker MD PCP - General Family Medicine 01/19/[address] [place] [address] Registered Dietitian Nutrition 11/15/24 documented as of this encounter
--- OUTSIDE RECORDS SUMMARY | 2025-08-31 07:46 | XMS_ITS | Encounter Summary ---
Author Organization [facility] Address [address] [place] [address] Care Team Providers Care Cylinder Inspector And Tester Name Role Phone Jeremy Coker MD Primary Care Provider + Val Yates RD Unavailable [phone] Source Comments In the event this information is protected by the Federal Confidentiality of Alcohol and Drug AbusePatient Records regulations: The Federal rules restrict any use of the information to criminally investigate or prosecute any alcohol or drug abuse patient.[facility] Encounter Details Date Type Department Care Team (Late st Contact Info) Description 09/24/2024 Patient Msg Gastroenterology [address] [address] Lamont Brown MD [address] [place] [address] Appointment Request Social History Tobacco Use Types [...] is lower risk 4 04/13/2023 Data from: https://www.neighborhoodatlas.medicine.[facility]/. Last address used for calculation [address] [place] [address] Rd 46 04/13/2023 Comments No Sex and [...] AM EDT Office Visit [facility]HT Ophthalmology [address] [place] [address] Sai Corbin, OD [address] [place] [address] Diagnostics, [facility] [address] [place] [address] 1 year documented as of this encounter Visit Diagnoses Not on filedocumented in this encounter Care Teams Cylinder Inspector And Tester Relationship Specialty Start Date End Date Jeremy Coker MD PCP - General Family Medicine 01/19/[address] [place] [address] Registered Dietitian Nutrition 11/15/24 documented as of this encounter
--- OUTSIDE RECORDS SUMMARY | 2025-08-31 07:46 | XMS_ITS | Encounter Summary ---
Author Organization [facility] Address [address] [place] [address] Care Team Providers Care Block Making Machine Operator Name Role Phone Jeremy Coker MD Primary Care Provider + Val Yates RD Unavailable [phone] Source Comments In the event this information is protected by the Federal Confidentiality of Alcohol and Drug AbusePatient Records regulations: The Federal rules restrict any use of the information to criminally investigate or prosecute any alcohol or drug abuse patient.[facility] Encounter Details Date Type Department Care Team (Late st Contact Info) Description 07/10/2023 [place] [address] Provider, Ccf Questionnaire Submission Social History Tobacco Use Types Packs/Day Years [...] is lower risk 4 04/13/2023 Data from: https://www.neighborhoodatlas.[facility]/. Last address used for calculation [id number] [place] [address] 46 04/13/2023 Comments No Sex and Gender [...] 3:49 PM EDT Roro Sifuentes RN * Because of a physical, mental, or emotional condition, do you have difficulty doing errands alone such as visiting a doctor's office or shopping? Answer Date of Assessment Author No 03/08/2023 3:49 PM EDT Roro Sifuentes RN documented as of this encounter Mental Status * Because of a physical, mental, or emotional condition, do you have serious difficulty concentrating, remembering, or making decisions? Answer Entry Date Author No 03/08/2023 3:49 PM EDT Roro Sifuentes RN documented in this encounter Plan of Treatment Upcoming Encounters Date Type Department Care Team (Late st Contact Info) Description 07/11/2026 9:00 AM EDT Office Visit [facility]HT Ophthalmology [address] [place] [address] Sai Corbin, OD [address] [place] [address] Diagnostics, [facility] [address] [place] [address] 1 year documented as of this encounter Visit Diagnoses Not on filedocumented in this encounter Care Teams Block Making Machine Operator Relationship Specialty Start Date End Date Jeremy Coker MD PCP - General Family Medicine 01/19/[address] [place] [address] Registered Dietitian Nutrition 11/15/24 documented as of this encounter
--- OUTSIDE RECORDS SUMMARY | 2025-08-31 07:46 | XMS_ITS | Encounter Summary ---
Author Organization [facility] Address [address] [place] [address] Care Team Providers Care Change Management Manager Name Role Phone Jeremy Coker MD Primary Care Provider + Val Yates RD Unavailable [phone] Source Comments In the event this information is protected by the Federal Confidentiality of Alcohol and Drug AbusePatient Records regulations: The Federal rules restrict any use of the information to criminally investigate or prosecute any alcohol or drug abuse patient.[facility] Encounter Details Date Type Department Care Team (Late st Contact Info) Description 12/14/2022 Patient Msg Gastroenterology [address] [address] Petty Guajardo, RN Results Social History Tobacco Use Types Packs/Day Years Used Date Smoking Tobacco: Every Day Cigarettes Smokeless Tobacco: Never Alcohol Use Standard Drinks/Week Comments Yes 0 (1 standard drink = 0.6 oz pur e alcohol) Area Deprivation Index Answer Date Nadeem rded National Score (1-100), lower number is lower ri sk 58 12/10/2022 State Score (1-10), lower number is lower risk N ot on file 12/10/2022 Data from: https://www.neighborhoodatlas.[facility]/. Last address used for calculation [address] 46 12/10/2022 Comments No Sex and Gender Information Value Date Recorded Sex Assigned at Not on file Legal Sex Female 4:17 PM EDT Gender Identity Not on file Sexual Orientation Not on file documented as of this encounter Plan of Treatment Upcoming Encounters Date Type Department Care Team (Late st Contact Info) Description 07/11/2026 9:00 AM EDT Office Visit [facility]HT Ophthalmology [address] [place] [address] Sai Corbin, OD [address] [place] [address] Diagnostics, Eye Tech [facility] [address] [place] [address] 1 year documented as of this encounter Visit Diagnoses Not on filedocumented in this encounter Additional Health Concerns Infection Onset Date Last Indicated Resolved Time COVID-19 Rule-Out 03/07/2023 03/07/2023 03/07/2023 8:54 PM EDT COVID-19 Confirmed Comment:Patient has an anticipated 10 day isolation, will review on 03/16/2023. 03/07/2023 03/07/2023 03/17/2023 8:51 PM E DT documented as of this encounter Care Teams Change Management Manager Relationship Specialty Start Date End Date Jeremy Coker MD PCP - General Family Medicine 01/19/[address] [place] [address] Registered Dietitian Nutrition 11/15/24 documented as of this encounter
--- OUTSIDE RECORDS SUMMARY | 2025-08-31 07:46 | XMS_ITS | Encounter Summary ---
Author Organization [facility] Address [address] [place] [address] Care Team Providers Care Resume Specialist Name Role Phone Jeremy Coker MD Primary Care Provider + Val Yates RD Unavailable [phone] Source Comments In the event this information is protected by the Federal Confidentiality of Alcohol and Drug AbusePatient Records regulations: The Federal rules restrict any use of the information to criminally investigate or prosecute any alcohol or drug abuse patient.[facility] Encounter Details Date Type Department Care Team ([facility] Contact Info) Description 07/13/2023 Get Medical Advice Gastroenterology [address] [address] Rajeev Israel PA-C [address] [address] MRI Social History Tobacco Use Types Packs/Day Years [...] is lower risk 4 04/13/2023 Data from: https://www.neighborhoodatlas.medicine.[facility]/. Last address used for calculation [id number] [place] [address] Rd 46 04/13/2023 Comments No Sex and [...] AM EDT Office Visit [facility] Ophthalmology [address] [place] [address] Sai Corbin, OD [address] [place] [address] Diagnostics, [facility] [address] [place] [address] 1 year documented as of this encounter Visit Diagnoses Not on filedocumented in this encounter Care Teams Resume Specialist Relationship Specialty Start Date End Date Jeremy Coker MD PCP - General Family Medicine 01/19/[address] [place] [address] Registered Dietitian Nutrition 11/15/24 documented as of this encounter
--- OUTSIDE RECORDS SUMMARY | 2025-08-31 07:46 | XMS_ITS | Encounter Summary ---
Author Organization [facility] Address [address] [place] [address] Care Team Providers Care Assistant To The Dean Name Role Phone Jeremy Coker MD Primary Care Provider + Val Yates RD Unavailable [phone] Source Comments In the event this information is protected by the Federal Confidentiality of Alcohol and Drug AbusePatient Records regulations: The Federal rules restrict any use of the information to criminally investigate or prosecute any alcohol or drug abuse patient.[facility] Encounter Details Date Type Department Care Team (Late st Contact Info) Description 04/10/2024 Patient Msg Gastroenterology [address] [address] Lamont Brown MD [address] [place] [address] Appointment Request Social History Tobacco [...] is lower risk 4 04/13/2023 Data from: https://www.neighborhoodatlas.medicine.[facility]/. Last address used for calculation [address] [place] [address] Rd 46 04/13/2023 Comments No Sex and [...] Assessment Author No 12/23/2023 1:34 PM Sarah Brarios RN * Do you have difficulty dressing [...] AM EDT Office Visit [facility]HT Ophthalmology [address] [place] [address] Sai Corbin, OD [address] [place] [address] Diagnostics, Eye Tech [facility] [address] [place] [address] 1 year documented as of this encounter Visit Diagnoses Not on filedocumented in this encounter Care Teams Assistant To The Dean Relationship Specialty Start Date End Date Jeremy Coker MD PCP - General Family Medicine 01/19/[address] [place] [address] Registered Dietitian Nutrition 11/15/24 documented as of this encounter
--- OUTSIDE RECORDS SUMMARY | 2025-08-31 07:46 | XMS_ITS | Clinical Summary ---
Author Organization [facility] Address [address] [place] [address] Care Team Providers Care Piccolo Mechanic Name Role Phone Jeremy Coker MD Primary Care Provider + Val Yates RD Unavailable [phone] Allergies Active Allergy Reactions Criticality Noted Date Comments Morphine Other: See Comments 02/28/2017 Medications nicotine (NICODERM) 7 mg/24 hrIndications:Ci garette nicotine dependence without complication Apply 1 Patch as directed every 24 hours. 28 Patch 5 10/18/20 23 Active nicotine polacrilex (NICORETTE) 4 mg gumIndications:C igarette nicotine dependence without complication Take 1 Each by mouth every 2 hours as needed. 100 Each 5 10/18/20 23 Active Additional Information Patient not taking.Reason: Other, Reported on 06/28/2025 COLLAGEN MISC Active buPROPion SR (WELLBUTRIN SR) 150 mg 12 hr tabletIndication s:Cigarette nicotine dependence without complication TAKE 1 TABLET BY MOUTH TWICE A DAY 180 tablet 1 01/04/20 24 Active ondansetron (ZOFRAN) 4 mg tablet Take by mouth every 8 hours as needed for nausea/vomiting. Active glucagon (GLUCAGEN) 1 mg/mL injectionIndicat ions:Crohn's disease of both small and large intestine with other complication (HCC) Inject 1 mg intravenously one time only for 1 dose. For MRI Enterography, Inject 1 mg intravenously, as directed. Slow push at the appropriate time during MRI Scan 1 Each 11/13/20 24 Active ergocalciferol 50,000 unit capsule (VITAMIN D2, DRISDOL) Take 1 capsule by mouth one time a week. 12 capsule 1 11/14/20 24 Active upadacitinib tablet ER 24 hr 30 mg (RINVOQ)Indicati ons:Crohn's disease of small and large intestines with complication (HCC) Take 1 tablet (30 mg) by mouth once daily. Swallow whole; DO NOT crush, chew, or open. 30 tablet 11 12/07/19 25 026 Active upadacitinib tablet ER 24 hr 45 mg (RINVOQ)Indicati ons:Crohn's disease of small and large intestines with complication (HCC) Take 1 tablet (45 mg) by mouth once daily. Swallow whole; DO NOT crush, chew, or open. 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 Hypercoagulable state 09/14/2023 UTI (urinary tract infection) 03/07/2023 Nicotine use disorder, F17.2 02/16/2023 Assessment & Plan (02/16/2023 10:59 AM EDT): PLAN: Nicotine patch Ankylosing spondylitis 02/16/2023 Crohn's disease 02/16/2023 Assessment & Plan (02/16/2023 10:58 AM EDT): S/p Laparoscopic ileocolic resection with Kono S reconstruction Postoperative pain 02/16/2023 Assessment & Plan (02/16/2023 10:58 AM EDT): PLAN: Multimodal pain control S/P small bowel resection 02/14/2023 Assessment & Plan (02/16/2023 11:00 AM EDT): PLAN: Monitoring I/O and BF Resolved Problems Problem Noted Date Diagnosed Date Resolved Date Antiphospholipid syndrome 09/14/2023 Encounters Date Type Department Care Team Description 06/28/2025 10:30 AM EDT Office Visit [facility] Ophthalmology [address] [place] [address] Sai Corbin OD Ankylosing spondylitis, unspecified site of spine (HCC) (Primary Dx); Crohn's disease with complication, unspecified gastrointestinal tract location (HCC); Regular astigmatism of both eyes 06/28/2025 Travel 06/14/2025 Patient Msg HOSP MAIN H060 [address] [place] [address] Provider, Ccf Sign up to manage your digestive symptoms in between visits, covered by insurance from Last 3 Months Family History Medical History Relation Comments Cataract Father Heart Father Hypertension Father Heart Maternal Grandmother Macular Degen Maternal Grandmother Cataract Paternal Grandfather Relation Status Comments Father Maternal Grandmother Paternal Grandfather Social History Tobacco Use Types Packs/Day Years Used Date Smoking Tobacco: Former Cigarettes 0.5 25 1 12/21/1997 - 10/21/2023 Passive Smoke Exposure: Current Smokeless Tobacco: Never Tobacco Cessation:Counseling Given: Not Answered Alcohol Use Standard Drinks/Week Comments Yes 0 (1 standard drink = 0.6 oz pur e alcohol) 2 drinks a week PHQ-2 Answer Date Recorded PHQ-2 score 2 01/18/2023 Area Deprivation Index Answer Date Nadeem rded National Score (1-100), lower number is lower ri sk 64 04/13/2023 State Score (1-10), lower number is lower risk 4 04/13/2023 Data from: https://www.neighborhoodatlas.medicine.[facility]/. Last address used for calculation [address] [place] [address] Rd 46 04/13/2023 Comments No Sex and Gender Information Value Date Recorded Sex Assigned at Not on file Legal Sex Female 4:17 PM EDT Gender Identity Not on file Sexual Orientation Not on file Last Filed Vital Signs Vital Sign Reading Time Taken Comments Blood Pressure 93/62 12/27/2024 10:00 AM EST Pulse 67 12/27/2024 10:00 AM EST Temperature 36 C (96.8 F) 12/27/2024 9:30 AM EST Respiratory Rate 16 12/27/2024 10:00 AM EST Oxygen Saturation 99% 12/27/2024 10:00 AM EST Inhaled Oxygen Concentration - - Weight 61.2 kg (135 lb) 12/27/2024 7:29 AM EST Height 160 cm (5' 2.99 ) 12/27/2024 7:29 AM EST Body Mass Index 23.92 12/27/2024 7:29 AM EST Plan of Treatment Upcoming Encounters Date Type Department Care Team (Late st Contact Info) Description 07/11/2026 9:00 AM EDT Office Visit [facility]HT Ophthalmology [address] [place] [address] Sai Corbin, OD [address] [place], [place] [phone] Diagnostics, Eye Tech And [address] [place] [address] 1 year Health Maintenance Due Date Last Done Comments Covid-19 Vaccine (#1) 02/16/1988 Cervical Cancer Screening 1994 Anxiety Screening 2001 Depression Screening 2001 HIV Screening 2001 DTaP,Tdap,Td Vaccine (1 - Tdap) 2002 Hepatitis B Vaccine (1 of 3 - 19+ 3-dose series) 2002 Pneumococcal Vaccine (1 of 2 - PCV) 2002 Shingrix Vaccine (1 of 2) 2002 HPV Vaccine (1 - 3-dose SCDM series) 2010 Mammogram Screening 2023 Influenza Vaccine (#1) 2025 3, 08/30/2022, 09/11/2021, Additional history exists Hepatitis C Screening Completed 12/10/2022 , 12/10/2022, 07/05/2022, Additional history exists Procedures Procedure Name Priority Date/Time Associated Diagnosis Comments HEPATITIS C ANTIBODY IA WITH CONFIRMATION Routine 12/10/2022 11:26 AM EST Crohn's disease of small and large intestines with complication (HCC) from Last 3 Months or Most Recently Relevant to Health Maintenance Results * HEP C AB IA W/CONF SCRN (12/10/2022 11:26 AM EST) Hep C Antibody IA Negative Negative 12/10/2022 6:06 PM EST [facility] Comment:The result suggests no evidence of active infection with Hepatitis C virus. Should recent infection be suspected, repeat testing may be considered 4-6 weeks after this draw. Blood BLOOD SPECIMEN / Unknown Venipuncture / Unknown 12/10/2022 11:26 AM EST 12/10/2022 11:28 AM EST us Roro Perezjennifer [facility] Final Resul t [facility] [address] [place] [address], from Last 3 Months or Most Recently Relevant to Health Maintenance Insurance [employer] Care Teams Piccolo Mechanic Relationship Specialty Start Date End Date Jeremy Coker MD PCP - General Family Medicine 01/19/[address] [place] [address] Registered Dietitian Nutrition 11/15/24
--- OUTSIDE RECORDS SUMMARY | 2025-08-31 07:46 | XMS_ITS | Encounter Summary ---
Author Organization [facility] Address [address] [place] [address] Care Team Providers Care Screen Tender Helper Name Role Phone Jeremy Coker MD Primary Care Provider + Val Yates RD Unavailable [phone] Source Comments In the event this information is protected by the Federal Confidentiality of Alcohol and Drug AbusePatient Records regulations: The Federal rules restrict any use of the information to criminally investigate or prosecute any alcohol or drug abuse patient.[facility] Encounter Details Date Type Department Care Team (Late st Contact Info) Description 12/09/2023 Patient Msg Gynecology [address] [phone] Manufacturing Technician, Nurse [facility] [place] [address] Polanco Social History Tobacco Use Types Packs/Day Years [...] is lower risk 4 04/13/2023 Data from: https://www.neighborhoodatlas.medicine.[facility]/. Last address used for calculation [address] 46 04/13/2023 Comments No Sex and [...] 3:49 PM ARLETT Roro Sifuentes RN * Do you have [...] Entry Date Author No 03/08/2023 3:49 PM Roro Birch RN documented in this encounter Plan of Treatment Upcoming Encounters Date Type Department Care Team (Late st Contact Info) Description 07/11/2026 9:00 AM EDT Office Visit [facility]HT Ophthalmology [address] [place] [address] Sai Corbin, OD [address] [place] [address] Diagnostics, Eye Tech And [address] [place] [address] 1 year documented as of this encounter Visit Diagnoses Not on filedocumented in this encounter Care Teams Screen Tender Helper Relationship Specialty Start Date End Date Jeremy Coker MD PCP - General Family Medicine 01/19/[address] [place] [address] Registered Dietitian Nutrition 11/15/24 documented as of this encounter
--- OUTSIDE RECORDS SUMMARY | 2025-08-31 07:46 | XMS_ITS | Patient Health Record ---
Author Organization [facility] in [place] Address [address] [place] [address] Care Team Providers Care Bookseamer Blindstitch Name Role Phone Luis Coker Primary Care Provider Allergies Allergen (clinical drug ingredient) Drug/Non Drug Allergy documented on EMR Reaction Allergy Type Onset Date Status morphine Morphine passed out Drug Allergy Active Results Component Value Reference Range Notes CBC AUTO DIFF Reviewed date:05/12/2025 12:46:13 PM Interpretation: Performing Lab: Notes/Report: [facility] , White Blood Count 7.5 4.0-11.0 10 3/uL Red Blood Count 4.69 4.20-5.40 10 6/uL Hemoglobin 14.6 12.0-16.0 g/dL Hematocrit 45.0 36.0-48.0 % Mean Corpuscular Volume 95.9 81.0-99.0 fL Mean Corpuscular Hemoglobin 31.1 26.7-34.0 pg Mean Corpuscular HGB Conc 32.4 29.9-35.2 g/dL Red Cell Distribution Width 13.2 11.0-15.0 % Platelet Count 288 150-450 10 3/uL Mean Platelet Volume 9.4 9.5-13.5 fL Neutrophils Percent Auto 72.0 43.0-75.0 % Lymphocytes Percent Auto 15.7 20.5-60.0 % Monocytes Percent Auto 8.6 1.7-12.0 % Eosinophils Percent Auto 2.9 0.9-7.0 % Basophils Percent Auto 0.5 0.2-2.0 % Immature Granulocytes Pct Auto 0.3 0.0-0.5 % Neutrophils Absolute Auto 5.4 1.4-6.5 10 3/uL Lymphocytes Absolute Auto 1.2 1.2-3.8 10 3/uL Monocytes Absolute Auto 0.6 0.3-0.8 10 3/uL Eosinophils Absolute Auto 0.2 0.0-0.7 10 3/uL Basophils Absolute Auto 0.0 0.0-0.1 10 3/uL Immature Granulocytes Abs Auto 0.02 0.00-0.03 10 3/uL Performing Lab: see note ML - [facility] LB CRP Reviewed date:05/12/2025 12:46:13 PM Interpretation: Performing Lab: Notes/Report: [facility] , C Reactive Protein <0.50 <=0.50 mg/dL Performing Lab: see note - [facility] PROF 14(COMP METB) Reviewed date:05/12/2025 12:46:13 PM Interpretation: Performing Lab: Notes/Report: [facility] , Sodium 139 136-145 mmol/L Potassium 4.6 3.5-5.1 mmol/L Chloride 102 98-107 mmol/L Carbon Dioxide 28.1 21.0-32.0 mmol/L Anion Gap 13.5 Glucose 94 74-106 mg/dL Blood Urea Nitrogen 11.0 7.0-18.0 mg/dL Creatinine 0.70 0.55-1.02 mg/dL Estimated GFR ( Patricia >60 >=60 mL/min/1.73m 2 Estimated GFR (Non- Mariella >60 >=60 mL/min/1.73m 2 BUN Creatinine Ratio 15.7 Calcium 9.6 8.5-10.1 mg/dL Bilirubin Total 0.6 0.2-1.0 mg/dL Aspartate Amino Transferase 14 15-37 U/L Alanine Aminotransferase 13 14-59 U/L Alkaline Phosphatase 63 46-116 U/L Total Protein 7.6 6.4-8.2 g/dL Albumin Level 3.9 3.4-5.0 g/dL Globulin 3.7 Albumin Globulin Ratio 1.1 Performing Lab: see note ML - [facility] LB Urine Culture - [facility] Reviewed date:05/13/2025 01:16:26 PM Interpretation: Performing Lab: Notes/Report: [facility] , Urine Culture - [facility] See Below For Report 20,000 colonies/ml mixed Urine Culture - FR Urine Culture - FR bacterial skin contaminants 20,000 colonies/ml mixed Urine Culture - FR Urine Culture - FR 2 Days 20,000 colonies/ml mixed Urine Culture - FR Urine Culture - [facility] 20,000 colonies/ml mixed Urine Culture - FR Urine Culture - FR Testing performed a [facility] 20,000 colonies/ml mixed Urine Culture - FR Urine Culture - [facility] [address] [place] [address] 20,000 colonies/ml mixed Urine Culture - FR Performing Lab: see note ML - [facility] LB Erythrocyte Sedimentation Ra te Reviewed date:05/12/2025 12:46:13 PM Interpretation: Performing Lab: Notes/Report: [facility] , Erythrocyte Sedimentation Rate 14 <=20 mm/hr Performing Lab: see note ML - [facility] LB UA RANDOM W or MICROSCOPIC Reviewed date:05/12/2025 12:46:13 PM Interpretation: Performing Lab: Notes/Report: [facility] , Color Urine LT. YELLOW YELLOW Clarity Urine CLEAR CLEAR Specific [place] Urine <=1.005 1.005-1.025 pH Urine 7.0 5.0-9.0 Protein Urine NEGATIVE NEG/TRACE mg/dL Glucose Urine UA NEGATIVE NEGATIVE mg/dL Bilirubin Urine NEGATIVE NEGATIVE Ketones Urine NEGATIVE NEGATIVE mg/dL Blood Urine NEGATIVE NEGATIVE Nitrite Urine NEGATIVE NEGATIVE Urobilinogen Urine 0.2 0.2-1.0 EU/dL Leukocyte Esterase Urine TRACE NEGATIVE WBC Urine 0-2 NONE SEEN #/HPF RBC Urine NONE SEEN 0-2 #/HPF Bacteria Urine TRACE NONE SEEN #/HPF Mucus Urine TRACE NONE SEEN Squamous Epithelial Cell Urine FEW NONE/RARE #/LPF Crystals Seen? None Seen None Seen #/HPF Cast Seen? NONE SEEN NONE SEEN #/LPF Urine Culture Indicated ALREADY ORDERED Performing Lab: see note ML - [facility] LB UA DIP NONAUTO WO MICRO ([phone]) - IN OFFICE Reviewed date:05/12/2025 12:46:13 PM Interpretation: Performing Lab: Notes/Report: COLOR yellow CLARITY clear GLUCOSE neg BILIRUBIN neg KETONE neg SPECIFIC GRAVITY 1.010 BLOOD neg PH 7 PROTEIN neg UROBILINOGEN neg NITRITE neg LEUKOCYTE ESTERASE neg UA (Urinalysis, Dipstix only - w/o micro) Reviewed date:02/04/2025 04:02:28 PM Interpretation: Performing Lab: Notes/Report: COLOR light yellow Yellow - Katelynn - CLARITY clear Clear - Clear GLUCOSE - 0 - 133 MG/DL ALBUMIN - NEG - NEG MG/DL BILIRUBIN - NEG - NEG MG/DL SPECIFIC GRAVITY 1.000 1.001 - 1.035 KETONES - NEG - NEG MG/DL BLOOD, UR - PH, UR 7 5 - 9 NITRITE - NEG - NEG ESTERASE (KOLTON) - NEG - NEG MG/DL Reason For Referral No Information Medications Medication SIG (Take, Route, Fr equency, [...] Tobacco Non-User Ex-light c igarette smoker (1-9/day) Alcohol Screen (Audit-C) Question Answer Notes Did you have a drink containing alcohol in the p ast year? No Points 0 Interpretation Negative AUDIT-C (Standard) Question Answer Notes Did you have a drink containing alcohol in the p ast year? No Points 0 Interpretation Negative Problems Problem Type SNOMED Code ICD Code Onset Dates Problem Status W/U Status Risk Notes Problem Abdominal pain (90206013) Abdominal pain (R10.9) Active confirmed Problem Fatigue (26015218) Fatigue (R53.83) Active conf irmed Problem Eczema (67796100) Eczema (L30.9) Active confirm ed Problem Kidney stone (28833627) Kidney stones (N20.0) Active confirmed Problem Bilateral sacroiliitis (6758109030) Bilateral sacroiliitis (M46.1) Active confirmed Problem Nephrolithiasis (66879794) Nephrolithiasis (N20.0) Active confirmed Problem Crohn disease (55553273) Crohn disease (K50.90) Active confirmed Problem Ankylosing spondylitis (1625431) Ankylosing spondylitis (M45.9) Active confirmed Problem Hydronephrosis (67446328) Hydronephrosis (N13.30) Active confirmed Problem Pruritic disorders (188054568) Pruritic condition (L29.9) Active confirmed Problem Abdominal wall hematoma (S30.1XXA) Active confirmed Problem Dribbling of urine (06446270) Dribbling of urine (N39.43) Active confirmed Vital Signs Heart Rate 93 /min 10/04/2024 Temperature 98.7 degrees Fahrenheit 10/04/2024 Blood pressure diastolic 60 mm Hg 08/30/2025 Oximetry 97 % 10/04/2024 Height 63 in 08/30/2025 Blood pressure systolic 102 mm Hg 08/30/2025 Weight 120.4 lbs 08/30/2025 BMI 21.33 kg/m2 08/30/2025 Encounters Encounter Location Date Provider Diagnosis [address] [address] 10/04/2024 Luis Hoy Acute non-recurrent sinusitis, unspecified location J01.90 and Nasal congestion R09.[address] [address] 10/31/2024 Luis Hoy Crohn disease K50.[address] [address] 02/04/2025 Luis Hoy Hematuria, unspecifi ed R31.[address] [address] 05/10/2025 Luis Hoy Dribbling of urine N39.[address] [address] 08/30/2025 Luis Hoy Weight loss R63.4 ; Fatigue R53.83 ; Crohn disease K50.90 and Ankylosing spondylitis M45.[address] [address] 10/08/2024 Luis Hoy [address] [address] 05/12/2025 Luis Hoy Dribbling of urine N39.[address] [place] [address] 05/21/2025 Luis Coker [facility] [address] [place] [address] 05/23/2025 Luis Coker Dribbling of urine N39.43 Assessments Encounter Date Diagnosis (ICD Code) Assessment Notes Treatment Notes Treatment Clinical Notes Section Notes 10/04/2024 Acute non-recurrent sinusitis, unspecified location (ICD-10 - J01.90) Rest and drink more liquids, especially water. You may use a humidifier or vaporizer to help keep the drainage moist. Vfnk-efg-gfgsfnv Nasal Saline may help the stuffy and runny nose. Use Ibuprofen and or Tylenol as needed for fever, chills, body aches or pain. Children 5 years old should not be given lcwk-mky-cocashv cough and cold medications such as guaifenesin and dextromethorphan. If you're over age 5, you may try diah-vyh-kzxvyam cold medications such as guaifenesin and dextromethorphan, or multi-symptom cold reliever such as Dayquil to help reduce the symptoms. Antibiotics have been prescribed. You should take these until completed and follow the directions. Antibiotics can sometimes cause upset stomach, and in rare cases, serious allergic reactions or serious gastrointestinal problems. If you start having severe abdominal pain, severe vomiting, or bloody diarrhea, you should be reevaluated by your physician or urgent care immediately. Follow up with your Primary Care Provider or return to clinic if symptoms do not improve within 3-5 days 05/12/2025 Dribbling of urine (ICD-10 - N39.43) 05/23/2025 Dribbling of urine (ICD-10 - N39.43) 10/31/2024 Crohn disease (ICD-10 - K50.90) needs streoid due to flare 02/04/2025 Hematuria, unspecified (ICD-10 - R31.9) 05/10/2025 Dribbling of urine (ICD-10 - N39.43) 08/30/2025 Weight loss (ICD-10 - R63.4) 08/30/2025 Fatigue (ICD-10 - R53.83) 08/30/2025 Crohn disease (ICD-10 - K50.90) 10/04/2024 Nasal congestion (ICD-10 - R09.81) 08/30/2025 Ankylosing spondylitis (ICD-10 - M45.9) Plan Of Treatment Pending Test Test Name Order Date CMP (COMPLETE METABOLIC PANEL) UA (URINALYSIS, COMPLETE) 2024 HEMOGLOBIN A1C (GLYCO) 02/29/2024 HEMOGLOBIN A1C (GLYCO) 08/30/2025 IRON, TOTAL 08/30/2025 IRON, TOTAL 02/29/2024 LIPID PANEL (CHOL/TRIG/HDL/LDL) 08/30/20 LIPID PANEL (CHOL/TRIG/HDL/LDL) 02/29/20 CBC WITH DIFF 02/29/2024 VITAMIN D, 25 LEVEL (TOTAL) 08/30/2025 VITAMIN D, 25 LEVEL (TOTAL) 02/29/2024 XR Ankle LT (3 views) * (164) 03/01/2023 CT Abdomen and Pelvis w/contrast * 12/28 Urinalysis Microscopic 08/30/2025 Urinalysis Microscopic 05/10/2025 Urinalysis Microscopic 02/04/2025 Urinalysis Microscopic 12/28/2023 Insulin Level 02/29/2024 Insulin Level 08/30/2025 FSH+LH+Prog+E2 08/30/2025 FSH+LH+Prog+E2 03/21/2024 STOOL OCCULT BLOOD 02/29/2024 STOOL OCCULT BLOOD 08/30/2025 CRP 08/30/2025 CULTURE URINE 08/30/2025 CULTURE URINE 05/10/2025 CULTURE URINE 02/04/2025 CULTURE URINE 2024 ESTRADIOL 03/21/2024 PROLACTIN 08/30/2025 PROTIME 12/28/2023 PROTIME 02/29/2024 SED RATE WESTERGREN 03/21/2024 SED RATE WESTERGREN 05/10/2025 SED RATE WESTERGREN 08/30/2025 URINE MICROSCOPIC ONLY 2024 THYROID PANEL (T4/TSH/FREE T3) THYROID PANEL (T4/TSH/FREE T3) THYROID PANEL (T4/TSH/FREE T3) CMP (COMP MET SEXTON) w/eGFR CKD-EPI 2024 CBC WITH DIFF 08/30/2025 Insurance Providers Payer Name Payer Address Payer Phone Subscriber Number Group Number Insured Name Patient Relationship to Insured Coverage Start Date Coverage End Date MMO [employer] [address] [place] [address] [id number] [facility] Jocelyne Self - patient is the insured Medical (General) History Medical History History ICD Code Crohn disease K50.90 Ankylosing spondylitis M45.9 COVID-19 U07.1 Eczema L30.9 Hydronephrosis N13.30 Nephrolithiasis N20.0 Kidney stones N20.0 Bilateral sacroiliitis M46.1 Surgical History Surgery Date(Month/Year) Elective 06/2018 Cystoscopy 2020 Small bowel resection- Dr Shaffer 01/2023 lap hysterectomy 11/2023 Hospitalization History Reason Date(Month/Year) see above
--- OUTSIDE RECORDS SUMMARY | 2025-08-31 07:46 | XMS_ITS | Clinical Summary ---
Author Organization [facility] Address [address] [place] [address] Care Team Providers Care Clerical Office Worker Name Role Phone Jeremy Coker MD Primary Care Provider [phone] Ildefonso Leblanc DO Unavailable Unavailable Allergies No known active allergies Medications Probiotic Product (PROBIOTIC ADVANCED PO) take by mouth.. Acti ve pseudoephedrine-dext romethorphan-guaiFEN esin (CAPMIST DM) 60-15-400 MG Tab tabletIndications:Ch ronic bilateral low back pain without sciatica,Bilateral sacroiliitis,Crohn's colitis, with rectal bleeding,intermission coordinator use of drug Take 1 tablet by mouth every 12 hours. 60 tablet 1 04/30/20 19 Active Additional Information Patient not taking.Reported on 05/06/2020 Adalimumab (Humira Pen) 40 MG/0.4ML Pen-injector Kit citrate freeIndications:Croh n's disease with complication, unspecified gastrointestinal tract location,Bilateral sacroiliitis,Crohn's colitis, with rectal bleeding,Sacroiliiti s,Chronic bilateral low back pain without sciatica Inject 40 mg under the skin every 14 days. 4 Each 5 05/06/20 20 Active Active Problems Problem Noted Date Diagnosed Date custodial use of drug 05/25/2017 Crohn's disease with complication 10/11/2016 Chronic bilateral low back pain without sciatica 10/11/2016 Bilateral thoracic back pain 10/11/2016 Crohn's disease of colon with rectal bleeding Family History Medical History Relation Name Comments Hypertension Father Lipid Disorder Father Other - Specify Mother Other - Specify Sister Relation Name Status Comments Father Alive Mother Alive Sister Social History Tobacco Use Types Packs/Day Years Used Date Smoking Tobacco: Former Cigarettes 1 11/28/2007 - 09/28/2012 Smokeless Tobacco: Never Alcohol Use Standard Drinks/Week Comments No 0 (1 standard drink = 0.6 oz pur e alcohol) Comments No Sex and Gender Information Value Date Recorded Sex Assigned at Not on file Legal Sex Female 10:02 AM EDT Gender Identity Female Sexual Orientation Not on file Last Filed Vital Signs Vital Sign Reading Time Taken Comments Blood Pressure 108/66 10/30/2019 10:12 AM EST Pulse 90 10/30/2019 10:12 AM EST Temperature 36.8 C (98.2 F) 10/30/2018 9:19 AM EST Respiratory Rate 18 10/30/2019 10:12 AM EST Oxygen Saturation 99% 10/30/2019 10:12 AM EST Inhaled Oxygen Concentration - - Weight 66.5 kg (146 lb 9.6 oz) 10/30/2019 10:12 AM EST Height 160 cm (5' 3 ) 10/30/2019 10:12 AM EST Body Mass Index 25.97 10/30/2019 10:12 AM EST Plan of Treatment Health Maintenance Due Date Last Done Comments HEPATITIS C VIRUS SCREENING 1983 TETANUS 1983 HIV SCREENING DISCUSSION 1998 HEP B VACCINE (1 of 3 - 19+ 3-dose series) 2002 TDAP (ADULT) 2002 CERVICAL CANCER SCREENING DISCUSSION 02/16/2004 HPV VACCINE (1 - 3-dose SCDM series) 2010 LIPID SCREENING 2023 MAMMOGRAM SCREENING DISCUSSION 2023 COVID-19 VACCINE ( - 2023-2 5 season) 2025 INFLUENZA VACCINE (#1) 2025 PNEUMOCOCCAL VACCINE SERIES Aged Out No longer eligible based on patient's age to complete this topic Insurance MMO Care Teams Clerical Office Worker Relationship Specialty Start Date End Date Jeremy Coker MD PCP - General Family Medicine 10/11/16 Ildefonso Leblanc DO Consulting Physician Gastroenterology 11/03/16
--- OUTSIDE RECORDS SUMMARY | 2025-08-31 07:46 | XMS_ITS | Clinical Summary ---
Author Organization [employer] Address [id number] [address] [place] [address] Care Team Providers Care Gutter Installer Name Role Phone Jeremy Coker MD Primary Care Provider [phone] Allergies Active Allergy Reactions Criticality Noted Date Comments Tramadol 06/19/2018 Medications predniSONE (DELTASONE) 20 mg tablet Take 20 mg by mouth 2 (two) times a day. Active mesalamine (LIALDA) 1.2 gram EC tablet Take 1,200 mg by mouth daily with breakfast. Active FOLIC ACID ORAL Take by mouth. Active PNV no.95/ferrous fum/folic ac ( ORAL) Take by mouth. Active enoxaparin (LOVENOX) 40 mg/0.4 mL syringeIndication s:Crohn's disease of small intestine without complication (CMS-HCC), anomaly,History of DVT (deep vein thrombosis) Inject 0.4 mL (40 mg total) under the skin daily. 30 Syringe 6 06/20/2018 Active Active Problems Problem Noted Date Diagnosed Date Crohn disease 06/20/2018 anomaly 06/20/2018 History of DVT (deep vein thrombosis) 06/20/2018 Family History Medical History Relation Name Comments Hypertension Father Depression Maternal Aunt Lupus Maternal Aunt Depression Maternal Uncle Depression Mother Thyroid disease Mother Hepatitis Paternal Uncle Alopecia Sister Depression Sister Allergies Son 1 Asthma Son 1 Allergies Son 2 Relation Name Status Comments Father Maternal Aunt Maternal Uncle Mother Paternal Uncle Sister Son 1 Son 2 Social History Tobacco Use Types Packs/Day Years Used Date Smoking Tobacco: Never Smokeless Tobacco: Never Alcohol Use Standard Drinks/Week Comments No 0 (1 standard drink = 0.6 oz pur e alcohol) Childcare Answer Date Recorded Childcare Unknown 05/07/2019 Employment Answer Date Recorded Employment Unknown 05/07/2019 Purpose - Life Answer Date Recorded Purpose and direction in life Unknown Comments No Sex and Gender Information Value Date Recorded Sex Assigned at Not on file Legal Sex Female 2:11 PM EDT Gender Identity Not on file Sexual Orientation Not on file Last Filed Vital Signs Vital Sign Reading Time Taken Comments Blood Pressure 117/70 06/20/2018 1:28 PM EDT Pulse 75 06/20/2018 1:28 PM EDT Temperature - - Respiratory Rate - - Oxygen Saturation - - Inhaled Oxygen Concentration - - Weight 68.1 kg (150 lb 2.1 oz) 06/20/2018 1:28 P M EDT Height 160 cm (5' 3 ) 06/20/2018 1:28 PM EDT Body Mass Index 26.59 06/20/2018 1:28 PM EDT Plan of Treatment Health Maintenance Due Date Last Done Comments Depression Screening 1995 Tobacco Screening 1995 Adult BMI Screening 2001 DTaP,Tdap and Td Vaccines (1 - Tdap) 2002 Pap Smear 02/16/2004 Influenza Vaccine 07/29/2025 Medical Devices Not on file Insurance ANTHEM Care Teams Gutter Installer Relationship Specialty Start Date End Date Jeremy Coker MD PCP - General 06/20/18
--- OUTSIDE RECORDS SUMMARY | 2025-08-31 07:46 | XMS_ITS | Encounter Summary ---
Author Organization [facility] Address [address] [place] [address] Care Team Providers Care Medical Economics Consultant Name Role Phone Jeremy Coker MD Primary Care Provider + Val Yates RD Unavailable [phone] Source Comments In the event this information is protected by the Federal Confidentiality of Alcohol and Drug AbusePatient Records regulations: The Federal rules restrict any use of the information to criminally investigate or prosecute any alcohol or drug abuse patient.[facility] Encounter Details Date Type Department Care Team ([facility] st Contact Info) Description 01/07/2023 Patient Msg Gastroenterology [address] [id number] [place], [facility] [address] [id number] Check-in Social History Tobacco Use Types Packs/Day Years Used Date Smoking Tobacco: Every Day Cigarettes Smokeless Tobacco: Never Alcohol Use Standard Drinks/Week Comments Yes 0 (1 standard drink = 0.6 oz pur e alcohol) Area Deprivation Index Answer Date Nadeem rded National Score (1-100), lower number is lower ri 58 12/10/2022 State Score (1-10), lower number is lower risk N ot on file 12/10/2022 Data from: https://www.neighborhoodatlas.medicine.[facility].edu/. Last address used for calculation [id number] [place] [address] [address] 12/10/2022 Comments No Sex and Gender Information Value Date Recorded Sex Assigned at Not on file Legal Sex Female 4:17 PM EDT Gender Identity Not on file Sexual Orientation Not on file documented as of this encounter Plan of Treatment Upcoming Encounters Date Type Department Care Team (Late st Contact Info) Description 07/11/2026 9:00 AM EDT Office Visit [facility] Ophthalmology [address] [place] [address] Sai Corbin, OD [address] [place] [address] Diagnostics, [facility] [address] [place], [place] [id number] 1 year documented as of this encounter Visit Diagnoses Not on filedocumented in this encounter Additional Health Concerns Infection Onset Date Last Indicated Resolved Time COVID-19 Rule-Out 03/07/2023 03/07/2023 03/07/2023 8:54 PM EDT COVID-19 Confirmed Comment:Patient has an anticipated 10 day isolation, will review on 03/16/2023. 03/07/2023 03/07/2023 03/17/2023 8:51 PM E DT documented as of this encounter Care Teams Medical Economics Consultant Relationship Specialty Start Date End Date Jeremy Coker MD PCP - General Family Medicine 01/19/[address] [address] Registered Dietitian Nutrition 11/15/24 documented as of this encounter
--- OUTSIDE RECORDS SUMMARY | 2025-08-31 07:46 | XMS_ITS | Encounter Summary ---
Author Organization [facility] Address [address] [place] [address] Care Team Providers Care Bleacher [employer] Name Role Phone Jeremy Coker MD Primary Care Provider + Val Yates RD Unavailable [phone] Source Comments In the event this information is protected by the Federal Confidentiality of Alcohol and Drug AbusePatient Records regulations: The Federal rules restrict any use of the information to criminally investigate or prosecute any alcohol or drug abuse patient.[facility] Encounter Details Date Type Department Care Team (Late st Contact Info) Description 03/25/2023 Patient Msg Gynecology [address] [place] [address] Provider, Ccf Consult to Minimally Invasive Gynecology Surgery (MIGS) Social History Tobacco Use Types Packs/Day Years [...] N ot on file 12/10/2022 Data from: https://www.neighborhoodatlas.[facility].edu/. Last address used for calculation [id number] [place] [address] [address] 12/10/2022 Comments No Sex and [...] AM EDT Office Visit [facility] Ophthalmology [address] [place] [address] Sai Corbin, OD [address] [place] [address] Diagnostics, [facility] [address] [place] [address] 1 year documented as of this encounter Visit Diagnoses Not on filedocumented in this encounter Care Teams Bleacher [employer] Relationship Specialty Start Date End Date Jeremy Coker MD PCP - General Family Medicine 01/19/[address] [place] [address] Registered Dietitian Nutrition 11/15/24 documented as of this encounter
--- OUTSIDE RECORDS SUMMARY | 2025-08-31 07:46 | XMS_ITS | Encounter Summary ---
Author Organization [facility] Address [address] [place] [address] Care Team Providers Care Bag Filler Machine Operator Name Role Phone Jeremy Coker MD Primary Care Provider + Ildefonso Leblanc DO Unavailable Unavailable Encounter Details Date Type Department Care Team (Late st Contact Info) Description 10/30/2018 Telephone [facility]ology [facility] [address] [place] [phone] Josh Burden MD [address] [place] [address] Social History Tobacco Use Types Packs/Day Years [...] Identity Female Sexual Orientation Not on file documented as of this encounter Miscellaneous Notes * Telephone Encounter - Josh Burden MD - 10/30/2018 4:33 PM EST let her know that she needs to use [facility] as pharm for the [facility] checked documented in this encounter Plan of Treatment Not on file documented as of this encounter Visit Diagnoses Not on filedocumented in this encounter Care Teams Bag Filler Machine Operator Relationship Specialty Start Date End Date Jeremy Coker MD PCP - General Family Medicine 10/11/16 Ildefonso Leblanc DO Consulting Physician Gastroenterology 11/03/16 documented as of this encounter
--- OUTSIDE RECORDS SUMMARY | 2025-08-31 07:46 | XMS_ITS | Encounter Summary ---
Author Organization [facility] Address [address] [place] [address] Care Team Providers Care Sales Secretary Name Role Phone Jeremy Coker MD Primary Care Provider + Val Yates JANICE Unavailable [phone] Source Comments In the event this information is protected by the Federal Confidentiality of Alcohol and Drug AbusePatient Records regulations: The Federal rules restrict any use of the information to criminally investigate or prosecute any alcohol or drug abuse patient.[facility] Encounter Details Date Type Department Care Team (Late st Contact Info) Description 12/20/2024 Patient Msg Gastroenterology [address] [address] Provider, [facility] Pre-Procedure Instructions for 12/27/24 EGD & Colonoscopy Social History Tobacco Use Types Packs/Day Years [...] [facility]/. Last address used for calculation [address] [place] [address] [address] 04/13/2023 Comments No Sex and [...] AM EDT Office Visit [facility] [address] [place] [address] Sai [place], OD [address] [place] [address] Diagnostics, [facility] [address] [place] [address] 1 year documented as of this encounter Visit Diagnoses Not on filedocumented in this encounter Care Teams Sales Secretary Relationship Specialty Start Date End Date Jeremy Coker MD PCP - General Family Medicine 01/19/[address] [place] [address] Registered Dietitian Nutrition 11/15/24 documented as of this encounter
--- OUTSIDE RECORDS SUMMARY | 2025-08-31 07:46 | XMS_ITS | Encounter Summary ---
Author Organization [facility] Address [address] [place] [address] Care Team Providers Care Laborer Sawmill Name Role Phone Jeremy Coker MD Primary Care Provider + Val Yates RD Unavailable [phone] Source Comments In the event this information is protected by the Federal Confidentiality of Alcohol and Drug AbusePatient Records regulations: The Federal rules restrict any use of the information to criminally investigate or prosecute any alcohol or drug abuse patient.[facility] Encounter Details Date Type Department Care Team (Late st Contact Info) Description 11/14/2024 Refill Gastroenterology [address] [id number] Ilia Elizabeth PA-C [address] [id number] Social History Tobacco Use Types Packs/Day Years [...] is lower risk 4 04/13/2023 Data from: https://www.neighborhoodatlas.medicine.[facility]/. Last address used for calculation [address] [place] [address] [address] 04/13/2023 Comments No Sex and [...] AM EDT Office Visit [facility] [address] [place] [address] Sai [place], OD [address] [place] [address] Diagn[facility], [facility] [address] [place] [address] 1 year documented as of this encounter Visit Diagnoses Not on filedocumented in this encounter Care Teams Laborer Sawmill Relationship Specialty Start Date End Date Jeremy Coker MD PCP - General Family Medicine 01/19/[address] [place] [address] Registered Dietitian Nutrition 11/15/24 documented as of this encounter
--- OUTSIDE RECORDS SUMMARY | 2025-08-31 07:46 | XMS_ITS | CCD ---
Author Organization [facility] Care Team Providers Care Sanitary Engineer Name Role Phone Brenda Landon Unavailable Ildefonso Leblanc Unavailable Unavailable Primary Care Provider Unavailabl e Unavailable Primary Care Provider Unavailabl e Unavailable Primary Care Provider Unavailjeana e Brenda Landon MD Primary Care Provider [phone] Brenda Landon MD Primary Care Provider [phone] D[address] GUTIERREZ Admitting Unavailable DIPESH ., DR GUTIERREZ Attending Unavailable DIPESH ., DR GUTIERREZ Primary Care Unavailable DIPESH ., DR GUTIERREZ Consulting Unavailable Susan De La Fuente Consulting Unavailable ADRIEN CRUZ Referring Unavailable HOY, BRENDA M Primary Care Unavailable KPY BRENDA M Primary Care Unavailable Brenda Landon MD Primary Care Provider [phone] Unavailable KpyBrenda Attending Unavailable Hoy, Brenda M Primary Care Unavailable Hoy, Brenda M Admitting Unavailable ENMANUEL PORTER Attending Unavailable ELIZABETH, VALENTINAEEEMILY Referring Unavailable HOY, BRENDA M Primary Care Unavailable ELIZABETH, MANDEEJorge LuisK Referring Unavailable HOY, BRENDA M Primary Care Unavailable LAMONT BROWN Attending Unavailable HOY, BRENDA M Primary Care Unavailable SAI CORBIN Attending Unavailable HOY, BRENDA M Primary Care Unavailable SELF Referring Unavailable PEDRO ISRAEL Attending Unavailable HOY, BRENDA M Primary Care Unavailable NAVEED STAPLETON Attending Unavailable HOY, BRENDA M Primary Care Unavailable ELIZABETH, MANDEEPK Referring Unavailable ENMANUEL PORTER Attending Unavailable HOY, BRENDA M Primary Care Unavailable HOY, BRENDA M Primary Care Unavailable ELIZABETHVALENTINAEEJorge LuisK Referring Unavailable HOY, BRENDA M Primary Care Unavailable ELIZABETH, MANDEEPK Referring Unavailable Allergies Allergy Classification Reported Allergen(s) Allergy Type Date of Onset Reaction(s) Facility (20 sources) Morphine; Translations: [MORPHINE] Drug Allergy 7 Other: See Comments [facility] (19 sources) traMADol Drug Allergy 8 Other: See Comments [facility] (1 source) Morphine Drug Allergy 7 [facility] (1 source) Morphine Drug Allergy 0 [facility] Medications Current Medications Medication Drug Class(es) Dates Sig (Normalized) Sig (Original) bisacodyl 5 mg delayed release oral tablet (2 sources) Stimulant Laxative Start: 09-20-2023 End: 09-21-2023 Bisacodyl (DULCOLAX) 5 mg tab Use as directed for Miralax / Gatorade Bowel Prep Kit 4 tablet 0 09/20/2023 09/21/2023 Active Comment on above: Use as directed for Miralax / Gatorade Bowel Prep Kit 12 hr buPROPion hydrochloride 150 mg extended release oral tablet (20 sources) Aminoketone Start: 12-09-2023 End: 01-04-2024 take 1 tablet by mouth twice daily [...] by marilyn th two times a day. 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 Active enteric contrast (will be provided with radiology test) (7 sources) Start: 11-13-2024 End: 11-14-2024 enteric contrast (will be provided with radiology test) Indications: Crohn's disease of both small and large intestine with other complication (HCC) For MRI ENTEROGRAPHY WO/W Administer, As Directed One Time Only, via Oral, Rectal, both Oral and Rectal, Enteric Tube, Stoma or Indwelling Catheter, Enteric Contrast as designated per enteric contrast guidelines 1 Each 11/13/2024 11/14/2024 Active Start: 07-05-2022 End: 07-06-2022 enteric contrast (will be pr ovided with radiology test) Indications: Crohn's disease of [...] Contrast as designated per enteric contrast guidelines ergocalciferol 1.25 mg oral capsule (14 sources) Provitamin D2 Compound Start: 2023 End: 2024 take 1 capsule by mouth every week ergocalciferol 50,000 unit capsule (VITAMIN D2, DRISDOL) Take 1 capsule by mouth one time a week. 12 capsule 1 11/14/2024 Active folic acid 1 mg oral tablet (1 source) Start: 2016 folic acid 1 MG Tab Indications: Chronic bilateral low back pain without sciatica , Bilateral thoracic back pain, unspecified chronicity , Crohn's disease with complication, unspecified gastrointestinal tract location , [facility] use of drug take 1 tablet by mouth daily.. 90 tablet 3 05/25/2017 Active Gatorade Sports Drink (2 sources) Start: 2022 End: 2022 Gatorade Sports Drink Use as directed for Miralax / Gatorade Bowel Prep Kit 0 09/20/2023 09/21/2023 Active Comment on above: Use as directed for Miralax / Gatorade Bowel Prep Kit glucagon (rdna) 1 mg injection (20 sources) Antihypoglycemic Agent Start: 2023 inject 1 mg intravenously once glucagon (GLUCAGEN) 1 mg/mL injection Indications: Crohn's disease of both small and large intestine with other complication (HCC) Inject 1 mg intravenously one time only for 1 dose. For MRI Enterography, Inject 1 mg intravenously, as directed. Slow push at the appropriate time during MRI Scan 1 Each 11/13/2024 Active Start: 07-05-2022 End: 12-10-2022 inject 1 mg intravenously once glucagon (GLUCAGEN) 1 m g/mL injection Indications: Crohn's disease of both small [...] at the appropriate time during MRI Scan ibuprofen 600 mg oral tablet (4 sources) Nonsteroidal Anti-inflammatory Drug Start: 12-22-19 End: 01-21-20 take 1 tablet by mouth every six hours as needed ibuprofen (MOTRIN) 600 mg tablet Take 1 tablet by mouth every 6 hours as needed for pain. 60 tablet 0 12/22/2023 01/21/2024 Active Comment on above: Take 1 tablet by marilyn every 6 hours as needed for pain. iv contrast (will be provided with radiology test) (20 sources) Start: 11-13-20 End: 11-14-20 iv contrast (will be provided with radiology test) Indications: Crohn's disease of both small and large intestine with other complication (HCC) MRI Enterography Inject, intravenously, once [...] MR contrast administration guidelines link. 1 Each 11/13/2024 11/14/2024 Active Start: 05-20-2023 End: 09-29-2023 iv contrast (will be provide d with radiology test) MRI Female Pelvis Inject, [...] in the MR contrast administration guidelines link. mesalamine 1200 mg delayed release oral tablet (1 source) Aminosalicylate take 2 tablets by mouth once daily Mesalamine (LIALDA) 1.[address] take by mouth.. 2 tabs qd Active 24 hr nicotine 0.292 mg/hr transdermal system (20 sources) Cholinergic Nicotinic Agonist Start: 10-18-20 End: 04-15-20 nicotine (NICODERM) 7 mg/24 hr Indications: Cigarette nicotine dependence without complication Apply 1 Patch as directed every 24 hours. 28 Patch 5 10/18/2023 Active Start: 10-18-2023 take 1 dose [...] by mouth every 2 hours as needed. ondansetron 4 mg disintegrating oral tablet (20 sources) Serotonin-3 Receptor Antagonist Start: 12-23-19 24 End: 12-13-19 25 take 1 tablet by mouth every eight hours as needed for nausea ondansetron orally disintegrating (ZOFRAN ODT) 4 mg disintegrating tablet Indications: Crohn's disease of both small and large intestine with other complication (HCC) , Nausea Take 1 tablet by mouth every 8 hours as needed for nausea/vomiting. 30 tablet 1 11/13/2024 12/13/2024 Active ondansetron (ZOF RAN) 4 mg tablet Take by mouth every 8 hours as needed for nausea/vomiting. Active Comment on above: Take 1 tablet by marilyn every 8 hours as needed. oxyCODONE hydrochloride 5 mg oral tablet (1 source) Opioid Agonist Start: 3 End: 3 take 1 tablet by mouth every six [...] take 40 mg by mouth daily.. Active phenylephrine hydrochloride 25 mg/ml ophthalmic solution (2 sources) alpha-1 Adrenergic Agonist Start: End: PHENYLephrine 2.5 % 1 drop (AK-DILATE, BAO-SYNEPHRINE) Start: 06-28-2025 End: 06-28-2025 1 drop, BOTH EYES, DIRECT ED, Starting on Tue06/28/25 at 1100, Until Tue06/28/25 at 2259, Administer for dilation PROTECT FROM LIGHT polyethylene glycol 3350 59267 mg powder for oral solution (2 sources) Osmotic Laxative Start: 09-20-2023 End: 09-21-2023 polyethylene glycol 3350 17 gram/dose powder Use as directed for Miralax / Gatorade Bowel Prep Kit 238 g 0 09/20/2023 09/21/2023 Active Comment on above: Use as directed for Miralax / Gatorade Bowel Prep Kit Probiotic Product (PROBIOTIC ADVANCED PO) (1 source) Probiotic Produc t (PROBIOTIC ADVANCED PO) take by mouth.. Active rifAXIMin 550 mg oral tablet (20 sources) Rifamycin Antibacterial Start: 11-13-2024 End: 11-27-2024 take 1 tablet by mouth twice daily rifAXIMin (XIFAXAN) 550 mg tablet Take 1 tablet by mouth two times a day for 14 days. 28 tablet 11/13/2024 11/27/2024 Active Start: 11-13-2024 End: 11-27-2024 take 1 tablet by mouth three times daily rifAXIMin (XIFAXAN) 550 mg tablet Indications: Crohn's disease of both small and large intestine with other complication (HCC) , Small intestinal bacterial overgrowth (SIBO) Take 1 tablet by mouth three times a day for 14 days. 42 tablet 11/13/2024 11/27/2024 Active tropicamide 10 mg/ml ophthalmic solution (2 sources) Anticholinergic Start: 06-28-2025 End: 06-28-2025 tropicamide 1 % 1 drop (MYDRIACYL) Start: 06-28-2025 End: 06-28-2025 1 drop, BOTH EYES, DIRECT ED, Starting on Tue06/28/25 at 1100, Until Tue06/28/25 at 2259, Administer for dilation upadacitinib tablet ER 24 hr 30 mg (RINVOQ) (12 sources) Start: 12-07-2024 End: 12-07-2025 take 1 tablet by mouth once daily upadacitinib tablet ER 24 hr 30 mg (RINVOQ) Indications: Crohn's disease of small and large intestines with complication (HCC) Take 1 tablet (30 mg) by mouth once daily. Swallow whole; DO NOT crush, chew, or open. 30 tablet 11 12/07/2024 12/07/2025 Active Start: 11-27-2024 End: 12-07-2024 take 1 tablet by mouth once daily upadacitinib tablet ER 24 hr 30 mg (RINVOQ) Indications: Crohn's disease of small and large intestines with complication (HCC) Take 1 tablet (30 mg) by mouth once daily. Swallow whole; DO NOT crush, chew, or open. 30 tablet 11 11/27/2024 12/07/2024 Discontinued Start: 11-27-2024 End: 11-27-2025 take 1 tablet by mouth once daily upadacitinib tablet ER 24 hr 30 mg (RINVOQ) Indications: Crohn's disease of small and large intestines with complication (HCC) Take 1 tablet (30 mg) by mouth once daily. Swallow whole; DO NOT crush, chew, or open. 30 tablet 11 11/27/2024 11/27/2025 Active upadacitinib tablet ER 24 hr 45 mg (RINVOQ) (12 sources) Start: 12-07-2024 take 1 tablet by mouth once daily upadacitinib tablet ER 24 hr 45 mg (RINVOQ) Indications: Crohn's disease of small and large intestines with complication (HCC) Take 1 tablet (45 mg) by mouth once daily. Swallow whole; DO NOT crush, chew, or open. 30 tablet 2 12/07/2024 Active Start: 12-07-2024 End: 03-07-2025 take 1 tablet by mouth once daily upadacitinib tablet ER 24 hr 45 mg (RINVOQ) Indications: Crohn's disease of small and large intestines with complication (HCC) Take 1 tablet (45 mg) by mouth once daily. Swallow whole; DO NOT crush, chew, or open. 30 tablet 2 12/07/2024 03/07/2025 Active Start: 11-27-2024 End: 12-07-2024 take 1 tablet by mouth once daily upadacitinib tablet ER 24 hr 45 mg (RINVOQ) Indications: Crohn's disease of small and large intestines with complication (HCC) Take 1 tablet (45 mg) by mouth once daily. Swallow whole; DO NOT crush, chew, or open. 30 tablet 2 11/27/2024 12/07/2024 Discontinued Start: 11-27-2024 End: 02-25-2025 take 1 tablet by mouth once daily upadacitinib tablet ER 24 hr 45 mg (RINVOQ) Indications: Crohn's disease of small and large intestines with complication (HCC) Take 1 tablet (45 mg) by mouth once daily. Swallow whole; DO NOT crush, chew, or open. 30 tablet 2 11/27/2024 02/25/2025 Active Completed/Discontinued Medications Medication Drug Class(es) Dates Sig (Normalized) Sig (Original) acetaminophen 500 mg oral tablet (20 sources) Start: 12-22-2023 End: 11-27-2024 take 2 tablets by mouth every eight hours acetaminophen (TYLENOL EXTRA STRENGTH) 500 mg tablet Take 2 tablets by mouth every 8 hours. 60 tablet 12/22/2023 11/27/2024 Discontinued (Course of therapy completed) Start: 02-17-2023 End: 05-19-2023 take 2 tablets by mouth every eight hours as needed acetaminophen (TYLENOL) 500 mg tablet Take 2 tablets by mouth every 8 hours as needed for pain. 0 02/17/2023 05/19/2023 Discontinued Comment on above: Take 2 tablets by mo uth every 8 hours as needed for pain. Take 2 tablets by mo uth every 8 hours. 0.4 ml adalimumab 100 mg/ml auto-injector (20 sources) Tumor Necrosis Factor Judy Start: 05-12-20 End: 11-27-20 inject 40 mg by subcutaneous injection every other week adalimumab 40 mg/0.4 mL subcutaneous pen kit (MAMTAIRA (CF)) Indications: Crohn's disease of small and large intestines with complication (HCC) Inject 40 mg (1 pen) subcutaneously every 2 weeks. 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 4 mL 6 05/25/2017 Active Comment on above: Inject 40 mg subcutaneously every 2 week s. Inject 160 mg subcut aneously on day [...] adalimumab-adaz (HYRIMOZ,CF, PEN) 40 mg/0.4 mL pen (11 sources) Start: 03-09-20 End: 12-31-20 24 inject 0.4 mL by subcutaneous injection every other week adalimumab-adaz (HYRIMOZ,CF, PEN) 40 mg/0.4 mL pen Indications: Crohn's disease of small and large intestines with complication (HCC) Inject 0.4 mL subcutaneously every 2 weeks. 2.4 mL 3 03/09/2024 11/27/2024 Discontinued (Changing Therapy/Dosage Form) Start: 03-09-2024 End: 03-09-2025 inject 0.4 mL by subcutaneous injection every other week adalimumab-adaz (HYRIMOZ,CF, PEN) 40 mg/0.4 mL pen Indications: Crohn's disease of small and large intestines with complication (HCC) Inject 0.4 mL subcutaneously every 2 weeks. 2.4 mL 3 03/09/2024 03/09/2025 Active Comment on above: Inject 0.4 mL subcut aneously every 2 weeks. cholecalciferol 0.025 mg oral tablet (20 sources) Vitamin D Start: End: 023 take 2 tablets by mouth once daily [...] on above: Take 1 capsule by mo ut one time a week. Take 2 tablets by mo uth once daily. ciprofloxacin 500 mg oral tablet (9 sources) Quinolone Antimicrobial End: 2022 take 1 tablet by mouth twice daily ciprofloxacin HCl (CIPRO) 500 mg tablet Take 500 mg by mouth twice daily. 0 05/19/2023 Discontinued Comment on above: Take 500 mg by mouth twice daily. cyclobenzaprine hydrochloride 5 mg oral tablet (15 sources) Muscle Relaxant Start: 2023 End: 2023 take 1 tablet by mouth at bedtime as needed cyclobenzaprine (FLEXERIL) 5 mg tablet Indications: Post-operative state Take 1 tablet by mouth at bedtime as needed. 30 tablet 1 01/06/2024 11/27/2024 Discontinued (Course of therapy completed) Comment on above: Take 1 tablet by marilyn at bedtime as needed. 0.8 ml enoxaparin sodium 100 mg/ml prefilled syringe (9 sources) Low Molecular Weight Heparin Start: 2022 End: 2022 inject 0.65 mL by subcutaneous injection every twelve hours enoxaparin (LOVENOX) 80 mg/0.8 mL Indications: Antiphospholipid syndrome (HCC) Inject 0.65 mL subcutaneously every 12 hours for 10 days. 20 Each 0 09/14/2023 09/24/2023 Comment on above: Inject 0.65 mL subcu taneously every 12 hours for 10 days. erythromycin 500 mg oral tablet (1 source) Macrolide, Macrolide Antimicrobial Start: 2022 Erythromycin 500 mg tablet Indications: Preoperative examination Take 2 tablets by mouth as directed. Take 2 tablets by mouth at 9pm and take 2 tablets by mouth at 11pm the night before surgery. 4 tablet 0 02/11/2023 Active Comment on above: Take 2 tablets by mo [facility] as directed. Take 2 tablets by mouth at 9pm and take 2 tablets by mouth at 11pm the night before surgery. lidocaine 0.05 mg/mg medicated patch (20 sources) Antiarrhythmic, Amide Local Anesthetic Start: 2022 End: 2022 apply 1 dose transdermal route every twenty-four hours lidocaine (LIDODERM) 5 % Indications: Arthritis associated with inflammatory bowel disease , Back stiffness , Bilateral sacroiliitis (HCC) Apply 1 Patch as directed every 24 hours. 30 Patch 1 05/19/2023 09/29/2023 Discontinued Comment on above: Apply 1 Patch as dir ected every 24 hours. Magnesium Sulfate / potassium sulfate / sodium sulfate (14 sources) Start: 2021 End: 2022 sodium sulfate-potassium sulfate-magnesium sulfate (SUPREP BOWEL PREP [...] 1 tablet by marilyn th once daily. 25/iron fum/folic/dha (-1 ORAL) (17 sources) End: 11-27-20 25/iron fum/folic/dha (-1 ORAL) Take by mouth. 11/27/2024 Discontinued (Course of therapy completed) 25/iron fum/folic/dha (-1 ORAL) Take by mouth. Active 25/iron fum/folic/dha (-1 ORAL) Take by mouth. 0 Active Comment on above: Take by mouth. sennosides, group home 8.6 mg oral tablet (17 sources) Start: 12-22-2023 End: 11-27-2024 take 1 tablet by mouth twice daily senna (SENOKOT) 8.6 mg tab Take 1 tablet by mouth two times a day. 30 tablet 12/22/2023 11/27/2024 Discontinued (Course of therapy completed) Comment on above: Take 1 tablet by marilyn th two times a day. simethicone 125 mg chewable tablet (5 sources) Start: 12-10-2022 End: 03-10-2023 take 1 tablet by mouth every six hours as needed Simethicone 125 mg chewable tablet Indications: Crohn's disease of small and large intestines with complication (HCC) Take 1 tablet by mouth every 6 hours as needed. 120 tablet 2 12/10/2022 12/31/2022 Discontinued Comment on above: Take 1 tablet by marilyn th every 6 hours as needed. Surgical Lubricant Jelly gel (14 sources) Start: 05-20-2023 End: 09-29-2023 Surgical Lubricant Jelly gel For MRI Female [...] Date Documented Da te Episodic/Chronic Administrative/social admission (1 source) 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; Translations: [Other specified counseling] Episodic Blindness and vision defects (5 sources) Eye / vision finding; Translations: [Unspecified visual disturbance] Onset: 5 Episodic Coagulation and hemorrhagic disorders (20 sources) Antiphospholipid syndrome; Translations: [Antiphospholipid syndrome] Onset: 3 Resolved: 3 10-18-2023 Chronic Endometriosis (4 sources) Endometriosis (clinical); Translations: [Endometriosis, unspecified] Chronic Intestinal obstruction without hernia (1 source) Stricture of intestine; Translations: [Other intestinal obstruction unspecified as to partial versus complete obstruction] Episodic Menstrual disorders (1 source) Dysmenorrhea; Translations: [Dysmenorrhea, unspecified] 09-05-2023 Chronic Nutritional deficiencies (4 sources) Vitamin D deficiency; Translations: [Vitamin D deficiency, unspecified] Chronic Other aftercare (3 sources) Long-term current use of systemic steroid; Translations: [[facility] (current) use of systemic steroids] Episodic Other circulatory disease (2 sources) Raynaud's phenomenon; Translations: [Raynaud's syndrome without gangrene] Chronic Other female genital disorders (1 source) Abnormal uterine bleeding; Translations: [Abnormal uterine and vaginal bleeding, unspecified] 09-05-2023 Chronic Other female genital disorders (1 source) H/O: miscarriage; Translations: [Recurrent loss] Episodic Other gastrointestinal disorders (5 sources) Abdominal bloating; Translations: [Abdominal distension (gaseous)] Episodic Other gastrointestinal disorders (3 sources) Enteropathic arthritis; Translations: [Disease of intestine, unspecified] Episodic Other gastrointestinal disorders (1 source) Disease of intestine, unspecified; Translations: [Other and unspecified noninfectious gastroenteritis and colitis] 01-19-2023 Episodic Other gastrointestinal disorders (3 sources) Small bowel bacterial overgrowth syndrome; Translations: [Small intestinal bacterial overgrowth (SIBO)] 11-13-2024 Episodic Other non-traumatic joint disorders (4 sources) Pain in left ankle and joints of left foot; Translations: [PAIN IN LEFT ANKLE] Onset: Episodic Other screening for suspected conditions (not mental disorders or infectious disease) (2 sources) Coag./bleeding tests abnormal; Translations: [Abnormal coagulation profile] Episodic Regional enteritis and ulcerative colitis (20 sources) Crohn's disease; Translations: [Crohn's disease of colon] Onset: 6 10-11-2016 Chronic Residual codes; unclassified (2 sources) Human leukocyte antigen B27 test positive; Translations: [Genetic susceptibility to other disease] Episodic Residual codes; unclassified (3 sources) Postoperative state; Translations: [Other specified postprocedural states] 01-06-2024 Episodic Residual codes; unclassified (1 source) Tobacco use and exposure - finding; Translations: [Tobacco use] 04-04-2025 Episodic Rheumatoid arthritis and related disease (20 sources) Ankylosing spondylitis; Translations: [Ankylosing spondylitis of unspecified sites in spine] Onset: 02-16-2023 Chronic Spondylosis; intervertebral disc disorders; other back problems (3 sources) Bilateral inflammation of sacroiliac joint; Translations: [Sacroiliitis, not elsewhere classified] Chronic Spondylosis; intervertebral disc disorders; other back problems (5 sources) Chronic low back pain; Translations: [Thoracic back pain] Onset: 6 10-11-2016 Episodic Substance-related disorders (20 sources) Cigarette smoker ; Translations: [Nicotine dependence, cigarettes, uncomplicated] Onset: Chronic Unclassified (1 source) 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; 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] Onset: 7 05-25-2017 Past or Other Problems Problem Classification Problem Date Documented Da te Episodic/Chronic Abdominal pain (20 sources) Pain in female pelvis; Translations: [Pelvic and perineal pain] Onset: 12-22-2023 Episodic Malaise and fatigue (4 sources) Fatigue; Translations: [Other fatigue] Onset: 11-15-2024 11-13-2024 Episodic Nausea and vomiting (6 sources) Nausea; Translations: [Nausea] Onset: 11-15-2024 11-13-2024 Episodic Other aftercare (20 sources) Long-term current use of anticoagulant; 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] Onset: 09-14-2023 09-14-2023 Episodic Other gastrointestinal disorders (1 source) Abdominal distension (gaseous); Translations: [Abdominal bloating] Onset: 11-15-2024 Episodic Other nervous system disorders (20 sources) Postoperative pain ; Translations: [Other acute postprocedural pain] Onset: 02-16-2023 02-17-2023 Episodic Residual codes; unclassified (20 sources) History [...] Test Name Value Interpretation Reference Range Facility Urine Cultureon 05-10-2025 Bacteria identified Cx Nom (U) 20,000 colonies/ml mixed bacterial skin contaminants 2 Days PERFORMED BY: [place] [address] PATHOLOGIST PULLING UNIT OPERATOR MC SHEIKH M.D. [facility] Comment on above: Performed By: #### C UU #### [address] ANES POSTPROC EVALon 025 ANES POSTPROC EVAL HNO ID: [id number] Author: AYANA WINKLER MD Service: ? Author Type: Anesthesiologist Type: Anesthesia Postprocedure Evaluation Filed: 12/27/2024 09:48 Note Text: POST ANESTHESIA EVALUATION NOTE : 1985 Procedure Summary Date: 12/27/24 Room / Location: Gastroenterology Anesthesia Start: 824 Anesthesia Stop: 929 Procedures: EGD DIAGNOSTIC COLONOSCOPY DIAGNOSTIC Diagnosis: Crohn's disease of both small and large intestine with other complication (HCC) Nausea (Nausea) (Follow-up of Crohn's disease) Scheduled Providers: Shiva Wayne MD; Naveed Stapleton APRN.TECHNICAL INFORMATION SPECIALIST; Ayana Winkler MD Responsible Provider: Ayana Winkler MD Anesthesia Type: MAC ASA Status: 2 Anesthesia Type: MAC Last Vitals Vitals Value Taken Time BP 89/55 12/27/24 0947 Temp 36 ?C (96.8 ?F) 12/27/24 0930 Pulse 67 12/27/24 0947 Resp 16 12/27/24 0940 SpO2 100 % 12/27/24 0947 Vitals shown include unfiled device data. Post Anesthesia Patient Status Patient Evaluation: PACU. PACU/ICU Patient Condition: stable. Neurological Status: aware and responsive. Pulmonary Status: breathing comfortably on supplemental oxygen Airway Control: returned to baseline unsupported. Cardiovascular Status: stable. Pain Management: clinically adequate Postoperative Hydration: acceptable. Intraoperative Events: no significant anesthesia events Post Operative Nausea/Vomiting Status: no significant post operative nausea or vomiting Recommendation: continue current plan of care and further care per PACU/ICU/floor team. Anesthesia Observations No Documentation SIGNATURE: Ayana Winkler MD PATIENT NAME: Jocelyne Lucas DATE: December 27, 2024 TIME: 9:48 AM CSN: [id number] [facility] ANES PRE-OPon 12-27-2024 ANES PRE-OP HNO ID: [id number] Author: AYANA WINKLER MD Service: ? Author Type: Anesthesiologist Type: Anesthesia Preprocedure Evaluation Filed: 12/27/2024 07:29 Note Text: ANESTHESIOLOGY DAY OF SURGERY NOTE : 1985 Procedure Information Date/Time: 12/27/24 0800 Scheduled providers: Shiva Wayne MD; Naveed Stapleton APRN.TECHNICAL INFORMATION SPECIALIST Procedures: EGD DIAGNOSTIC COLONOSCOPY DIAGNOSTIC Location: Gastroenterology Estimated body mass index is 24.8 kg/m? as calculated from the following: Height as of 11/13/24: 160 cm (5' 3 ). Weight as of 12/17/24: 63.5 kg (140 lb). Most recent hematocrit and potassium results: Hematocrit 45.7 11/13/2024 Potassium 4.6 11/13/2024 Relevant Problems Other (+) Ankylosing spondylitis (HCC) I - PHYSICAL EVALUATION AIRWAY Patient intubated: No. Tracheostomy tube not present Mallampati: III. TM distance: >3 FB. Neck ROM: full ROM without neurological symptoms. Mouth opening: adequate. Short neck: no. Thick neck: no II - ANESTHESIA PLAN ASA Score: 2 Anesthetic Plan: MAC NPO Status: adequate Beta Judy Monitoring Plan Monitoring plan: standard ASA. Post Procedure Analgesic Plan Postoperative analgesic plan: multimodal analgesia. Informed Consent Anesthetic risks, benefits, alternatives, personnel and consent discussed: yes. Patient / Responsible Republican agrees to proceed: yes Patient / Surrogate agrees to blood products: Yes DNR status not reviewed with patient and/or family prior to surgery. Significant changes in the patient condition since the History and Physical, not otherwise documented in primary service progress note: no. Potential Anesthesia issues that may suggest increased risk of complications or contraindication to planned procedure: none. No vitals data found for the desired time range. Outpatient Medications as of 12/27/2024 Medication Sig upadacitinib tablet ER 24 hr 30 mg (RINVOQ) Take 1 tablet (30 mg) by mouth once daily. Swallow whole; DO NOT crush, chew, or open. upadacitinib tablet ER 24 hr 45 mg (RINVOQ) Take 1 tablet (45 mg) by mouth once daily. Swallow whole; DO NOT crush, chew, or open. ergocalciferol 50,000 unit capsule (VITAMIN D2, DRISDOL) Take 1 capsule by mouth one time a week. ondansetron (ZOFRAN) 4 mg tablet Take by mouth every 8 hours as needed for nausea/vomiting. glucagon (GLUCAGEN) 1 mg/mL injection Inject 1 mg intravenously one time only for 1 dose. For MRI Enterography, Inject 1 mg intravenously, as directed. Slow push at the appropriate time during MRI Scan buPROPion SR (WELLBUTRIN SR) 150 mg 12 hr tablet TAKE 1 TABLET BY MOUTH TWICE A DAY COLLAGEN MISC nicotine (NICODERM) 7 mg/24 hr Apply 1 Patch as directed every 24 hours. nicotine polacrilex (NICORETTE) 4 mg gum Take 1 Each by mouth every 2 hours as needed. No current facility-administered medications on file as of 12/27/2024. I have interviewed and examined the patient. I have reviewed the medical record and/or the pre-anesthesia evaluation, pertinent labs, and test results. This contains updated information obtained within 48 hours of Surgery/Procedure. SIGNATURE: Ayana Winkler MD PATIENT NAME: Jocelyne Lucas DATE: December 27, 2024 TIME: 7:28 AM CSN: [id number] [facility] Colonoscopyon 12-27-2024 Colonoscopy Q3 Patient Name: Jocelyne Lucas Procedure Date: 12/27/2024 8:18 AM Date of : 1985 Admit Type: Outpatient Age: 39 Gender: Female Note Status: Lug Loader Override Attending MD: Shiva Wayne MD, [id number] Procedure: Colonoscopy Indications: Follow-up of Crohn's disease Providers: Shiva Wayne MD Patient Profile: Refer to note in patient chart for documentation of history and physical. Last Colonoscopy: August 2023. Referring Physician: Ilia Elizabeth (Referring MD) Medicines: Monitored Anesthesia Care Complications: No immediate complications. Requesting Provider: Procedure: Pre-Anesthesia Assessment: - Prior to the procedure, a History and Physical was performed, and patient medications and allergies were reviewed. The patient is competent. The risks and benefits of the procedure and the sedation options and risks were discussed with the patient. All questions were answered and informed consent was obtained. Patient identification and proposed procedure were verified by the physician in the pre-procedure area in the procedure room. Mental Status Examination: alert and oriented. Airway Examination: normal oropharyngeal airway and neck mobility. Respiratory Examination: clear to auscultation. CV Examination: normal. Prophylactic Antibiotics: The patient does not require prophylactic antibiotics. Prior Anticoagulants: The patient has taken no anticoagulant or antiplatelet agents. After reviewing the risks and benefits, the patient was deemed in satisfactory condition to undergo the procedure. The anesthesia plan was to use moderate sedation / analgesia (conscious sedation). Immediately prior to administration of medications, the patient was re-assessed for adequacy to receive sedatives. The heart rate, respiratory rate, oxygen saturations, blood pressure, adequacy of pulmonary ventilation, and response to care were monitored throughout the procedure. The physical status of the patient was re-assessed after the procedure. After I obtained informed consent, the scope was passed under direct vision. Throughout the procedure, the patient's blood pressure, pulse, and oxygen saturations were monitored continuously. The Colonoscope was introduced through the anus and advanced to the ileocolonic anastomosis. The colonoscopy was performed without difficulty. The patient tolerated the procedure well. The quality of the bowel preparation was good. The terminal ileum, ileocecal valve, appendiceal orifice, and rectum were photographed. Moderate Sedation: MAC anesthesia was administered by the anesthesia team. Findings: The perianal and digital rectal examinations were normal. There was evidence of a prior ileo-colonic anastomosis in the ascending colon. This was patent and was characterized by erythema, friable mucosa and ulceration. The anastomosis was traversed. The Simple Endoscopic Score for Crohn's Disease was determined based on the endoscopic appearance of the mucosa in the following segments: - Ileum: Findings include aphthous ulcers less than 0.5 cm in size, less than 10% ulcerated surfaces, less than 50% of surfaces affected and no narrowings. Segment score: 3. - Right Colon: Findings include no ulcers present, no ulcerated surfaces, no affected surfaces and no narrowings. Segment score: 0. - Transverse Colon: Findings include no ulcers present, no ulcerated surfaces, no affected surfaces and no narrowings. Segment score: 0. - Left Colon: Findings include no ulcers present, no ulcerated surfaces, no affected surfaces and no narrowings. Segment score: 0. - Rectum: Findings include no ulcers present, no ulcerated surfaces, no affected surfaces and no narrowings. Segment score: 0. - Total SES-CD aggregate score: 3. Biopsies were taken with a cold forceps for histology. The exam was otherwise without abnormality on direct and retroflexion views. Multiple medium-mouthed and small-mouthed diverticula were found in the sigmoid colon. Impression: - Patent ileo-colonic anastomosis, characterized by erythema, friable mucosa and ulceration. - Simple Endoscopic Score for Crohn's Disease: 3, mucosal inflammatory changes. Biopsied. - The examination was otherwise normal on direct and retroflexion views. - Diverticulosis in the sigmoid colon. Estimated Blood Loss: Estimated blood loss was minimal. Recommendation: - The patient will be observed post-procedure, until all discharge criteria are met. - Patient has a contact number available for emergencies. The signs and symptoms of potential delayed complications were discussed with the patient. Return to normal activities tomorrow. Written discharge instructions were provided to the patient. - Resume previous diet. - Continue present medications. - Repeat colonoscopy date to be determined after pending pathology results are reviewed. Proc (more content not included)... [facility] EGD Study observation Narrat iveon 12-27-2024 [facility] Flexible sigmoidoscopy study on 12-27-2024 [facility] HISTORY PHYSICALon HISTORY PHYSICAL HNO ID: [id number] Author: SHIVA WAYNE MD Service: Gastroenterology Author Type: Physician Type: H&P Filed: 12/27/2024 08:20 Note Text: PROCEDURAL SEDATION HISTORY AND PHYSICAL EXAM SERVICE DATE: 12/27/2024 SERVICE TIME: 8:19 AM Subjective HPI: This is a 39 year old female who presents for screening Upper endoscopy and Colonoscopy PAST ANESTHESIA HISTORY: No history of adverse event PAST MEDICAL HISTORY Diagnosis Date Crohn's disease (HCC) Raynaud's syndrome PAST SURGICAL HISTORY Procedure Laterality Date BOWEL RESECTION HX 01/2023 RESECTION BOWEL SMALL COLONOSCOPY SCREENING 08/2023 LAP HYSTERECTOMY FOR UTERUS 250G OR LESS 12/22/2023 LAPAROSCOPIC HYSTERECTOMY TOTAL FOR UTERUS 250G OR LESS, LAPAROSCOPY WITH EXCISION OF ENDOMETRIAL LESIONS PELVIS, CYSTOSCOPY PAST SURGICAL HISTORY OF 2 C sections 2008, 2011 Prior to Admission medications as of 11/13/24 0758 Medication Sig Last Dose Taking upadacitinib tablet ER 24 hr 30 mg (RINVOQ) Take 1 tablet (30 mg) by mouth once daily. Swallow whole; DO NOT crush, chew, or open. upadacitinib tablet ER 24 hr 45 mg (RINVOQ) Take 1 tablet (45 mg) by mouth once daily. Swallow whole; DO NOT crush, chew, or open. ergocalciferol 50,000 unit capsule (VITAMIN D2, DRISDOL) Take 1 capsule by mouth one time a week. ondansetron (ZOFRAN) 4 mg tablet Take by mouth every 8 hours as needed for nausea/vomiting. glucagon (GLUCAGEN) 1 mg/mL injection Inject 1 mg intravenously one time only for 1 dose. For MRI Enterography, Inject 1 mg intravenously, as directed. Slow push at the appropriate time during MRI Scan buPROPion SR (WELLBUTRIN SR) 150 mg 12 hr tablet TAKE 1 TABLET BY MOUTH TWICE A DAY COLLAGEN MISC nicotine (NICODERM) 7 mg/24 hr Apply 1 Patch as directed every 24 hours. nicotine polacrilex (NICORETTE) 4 mg gum Take 1 Each by mouth every 2 hours as needed. ALLERGIES Allergen Reactions Morphine Other: See Comments Objective PHYSICAL EXAM: The remainder of the physical exam is noncontributory. GENERAL: Alert, no distress, cooperative SKIN: Skin color, texture, turgor normal. No rashes or lesions. HEAD/SINUSES: No significant findings ABDOMEN: Abdomen soft, non-tender, BS normal, No masses or organomegaly AIRWAY: Airway Visualization of Uvula: Yes Mouth opening greater than 2 fingerbreadths: Yes Neck Full Range of Motion: Yes LUNGS: Lungs clear to auscultation CARDIAC: Regular rhythm,Regular rate Assessment/Plan ASA Class: ASA Class: Patient with mild systemic disease Active Problems: * No active hospital problems. * Resolved Problems: * No resolved hospital problems. * Medication and Non-Pharmacologic VTE Prophylaxis/Anticoagu lants VTE Prophylaxis: VTE prophylaxis appropriate Provisional Diagnosis/Treatment Plan: EGD and colonoscopy Sedation Goal: Anesthesia SIGNATURE: Shiva Wayne MD, MD PATIENT NAME: Jocelyne Lucas DATE: December 27, 2024 TIME: 8:19 AM [facility] NURSING PROGon 12-27-2024 NURSING PROG HNO ID: [id number] Author: ELENI ROMANO LPN Service: Nursing Author Type: LICENSED NURSE Type: Nursing Progress Note Filed: 12/27/2024 09:38 Note Text: AMBULATORY PATIENT EDUCATION NOTE TOPIC: GI PROCEDURES: Colonoscopy with or without biopsies based on clinical findings Esophagogastroduodeno scopy(EGD) with or without biopies based on clinical findings, removal of polyps or lesions READINESS TO LEARN INSTRUCTION PROVIDED TO: Patient, readness to learn accessed prior to procedure COGNITIVE ABILITY: Alert and oriented PTED MOTIVATION TO LEARN: Interested FAMILY SUPPORT: High - Very involved in pt care IPATIENT LEARNS BEST BY: Individual Instruction FACTORS AFFECTING LEARNING: None PHYSICAL LIMITATIONS AFFECTING LEARNING: None LEARNING RESPONSE METHOD OF INSTRUCTION: Individual instruction PATIENT / FAMILY RESPONSE: Verbalizes understanding of: WORSENING CONDITION-Signs and symptoms of a worsening condition that warrant a call to the physician FOLLOW-UP PLAN: Patient instructed to call with any further issues SUPPLEMENTAL MATERIAL: Procedure Discharge Instructions REFERRAL (RECOMMENDATION): None Electronically Signed By: Eleni Romano LPN [facility] NURSING PROG HNO ID: [id number] Author: SOCO LOOMIS RN Service: ? Author Type: Registered Nurse Type: Nursing Progress Note Filed: 12/27/2024 07:29 Note Text: PRE OP LEARNING ASSESSMENT PROCEDURE/SURGERY: GI PROCEDURES: Colonoscopy and EGD READINESS TO LEARN COGNITIVE ABILITY: Alert and oriented MOTIVATION TO LEARN: Eager FAMILY SUPPORT: High - Very involved in pt care PATIENT LEARNS BEST BY: Individual Instruction FACTORS AFFECTING LEARNING: None PHYSICAL LIMITATIONS AFFECTING LEARNING: None Electronically Signed By: Soco Loomis RN In Department: GASTROENTEROLOGY [facility] No Panel Informationon 12-27 Radiology Study observation (narrative) [facility] SURGICAL PATHOLOGYon 025 CASE REPORT [facility] Comment on above: Order Comment: Speci men Type: TISSUE SPECIMENOrdering Facility: [facility] Address: [address] [place] [address] Result Comment: Surg [facility] Pathology Report Case: [id number] Authorizing Provider: Shiva Wayne MD Collected: 12/27/2024 08:34 AM Ordering Location: Gastroenterology Received: 12/27/2024 11:12 AM Pathologist: Shamir Carvajal MD, PhD Specimens: A) - Stomach, Biopsy, r/o H. Pylori B) - Small Bowel, Terminal Ileum, Biopsy, r/o Crohns C) - Colon, Transverse, Biopsy D) - Colon, Left, Biopsy E) - Rectum, Biopsy Performed By: #### S ####[facility] [id number] [address] FINAL DIAGNOSIS [facility] Comment on above: Order Comment: Uday covington Type: TISSUE SPECIMENOrdering Facility: [facility] Address: [address] [place] [address] Result Comment: A. S tomach, biopsy: - Gastric antral and oxyntic mucosa with mild chronic inflammation. - No evidence of H. pylori microorganisms on H&E sections. B. Terminal ileum, biopsy: - Small intestinal mucosa with reactive changes, no significant active inflammation. - No evidence of granulomas or dysplasia. C-E. Colon, transverse, left and rectum, biopsy: - Colonic mucosa with no significant diagnostic abnormality. - No evidence of granulomas or dysplasia. Performed By: #### S ####[facility] [id number] [address] OF [facility] FINAL PERFORMING LAB [facility] Comment on above: Order Comment: Bradyi adria Type: TISSUE SPECIMENOrdering Facility: [facility] Address: [address] [place] [address] Result Comment: Diag nostic interpretation performed at: [facility], [address] [place] [address], [place] [address] CLIA# [id number] Information Broker: Scot Poole MD Performed By: #### S ####[facility]IA [id number] [place] [address] [place] GROSS DESCRIPTION Normal [facility] Comment on above: Order Comment: Speci men Type: TISSUE SPECIMENOrdering Facility: [facility] Address: [address] [place] [address] Result Comment: A. S tomach, Biopsy Received in formalin are multiple pieces of red-brown, soft tissue aggregating to 1.5 x 0.3 x 0.2 cm. Totally submitted in one cassette. B. Small Bowel, Terminal Ileum, Biopsy Received in formalin are two pieces of red-brown, soft tissue aggregating to 0.8 x 0.3 x 0.2 cm. Totally submitted in one cassette. C. Colon, Transverse, Biopsy Received in formalin are multiple pieces of red-brown, soft tissue aggregating to 1.4 x 0.2 x 0.1 cm. Totally submitted in one cassette. D. Colon, Left, Biopsy Received in formalin are multiple pieces of red-brown, soft tissue aggregating to 1.0 x 0.2 x 0.1 cm. Totally submitted in one cassette. E. Rectum, Biopsy Received in formalin are multiple pieces of claire-red, soft tissue aggregating to 1.0 x 0.2 x 0.1 cm. Totally submitted in one cassette. Gross examination performed at [facility], [address] [place] [address] December 27, 2024 11:49 AM Performed By: #### S ####[facility]IA [id number] [place] [address] [place] MR Abdomen WO and W contrast Hood 12-07-2024 * * *Final Report* * * DATE OF EXAM: Dec 07 2024 9:27AM QBM 0684 - MRI ABD ENTEROG WO/W IVCON / PROCEDURE REASON: multiple diagnoses * * * * Physician Interpretation * * * * MRI ABDOMEN WITHOUT AND WITH IV CONTRAST, MRI PELVIS WITHOUT AND WITH IV CONTRAST (MR ENTEROGRAPHY) CLINICAL HISTORY: Crohn's disease status post ileocolonic resection and colonoscopy (January 2023), last colonoscopy (08/2023) with patent ileocolonic anastomosis. TECHNIQUE: Magnet: Siemens Biograph mMR 3T scanner. Multiplanar MRI of the abdomen and MRI of pelvis with multiple sequences, performed before and after contrast. Technique was optimized for small bowel visualization/enterog ben. Contrast: Intravenous: 13 ml of Dotarem Oral: 1000 ml ml of Breeza COMPARISON: CT abdomen/pelvis 03/07/2023, MR enterography 08/13/2022 RESULT: GI Tract: Prior ileocolic resection. Small bowel: Mural thickening and hyperenhancement with narrowing involving approximately 5 cm segment of the neoterminal ileum and extending to the ileocecal junction (4:38, 17:21). No upstream dilation. Colon: No mural hyperenhancement, edema, or wall thickening. Strictures: None. No upstream dilation Fistulae/Sinus tracts: None. Some adjacent right lower quadrant mesenteric inflammatory enhancement (17:84) without a discrete fistula/sinus tract. Abscess: None Perianal: No perianal fistula or abscess. Abdomen and Pelvis: Liver: Normal morphology. No hepatic steatosis. No mass in the imaged portion. Biliary: No bile duct dilation. Gallbladder sludge. No cholelithiasis. Spleen: No mass. No splenomegaly. Pancreas: No mass or duct dilation. Adrenals: No mass. Kidneys: 8 mm benign left renal cyst. No solid mass. No hydronephrosis. Lymph nodes: No abdominal or pelvic lymphadenopathy. Mesentery / Peritoneum / Retroperitoneum: No ascites or mass. Vasculature: The celiac axis and SMA are patent. The portal vein and branches, splenic vein, SMV, and hepatic veins are patent. No aortic or iliac artery aneurysm. Pelvis: No mass, ascites, or loculated collection. Bones/Soft Tissues: Bilateral sacroiliac marrow edema and postcontrast enhancement consistent with bilateral sacroiliitis. 1.5 cm nodule in the right posterior subcutaneous fat (10:79) with associated calcification on prior CT, likely a injection site granuloma. Lower chest: Unremarkable. DIVISION OF RADIOLOGY Provider, [facility]07/[facility] * * *Final Report* * * DATE OF EXAM: Dec 07 2024 9:27AM QBM 0684 - MRI ABD ENTEROG WO/W IVCON / PROCEDURE REASON: multiple diagnoses * * * * Physician Interpretation * * * * MRI ABDOMEN WITHOUT AND WITH IV CONTRAST, MRI PELVIS WITHOUT AND WITH IV CONTRAST (MR ENTEROGRAPHY) CLINICAL HISTORY: Crohn's disease status post ileocolonic resection and colonoscopy (January 2023), last colonoscopy (08/2023) with patent ileocolonic anastomosis. TECHNIQUE: Magnet: Siemens Biograph mMR 3T scanner. Multiplanar MRI of the abdomen and MRI of pelvis with multiple sequences, performed before and after contrast. Technique was optimized for small bowel visualization/enterog ben. Contrast: Intravenous: 13 ml of Dotarem Oral: 1000 ml ml of Breeza COMPARISON: CT abdomen/pelvis 03/07/2023, MR enterography 08/13/2022 RESULT: GI Tract: Prior ileocolic resection. Small bowel: Mural thickening and hyperenhancement with narrowing involving approximately 5 cm segment of the neoterminal ileum and extending to the ileocecal junction (4:38, 17:21). No upstream dilation. Colon: No mural hyperenhancement, edema, or wall thickening. Strictures: None. No upstream dilation Fistulae/Sinus tracts: None. Some adjacent right lower quadrant mesenteric inflammatory enhancement (17:84) without a discrete fistula/sinus tract. Abscess: None Perianal: No perianal fistula or abscess. Abdomen and Pelvis: Liver: Normal morphology. No hepatic steatosis. No mass in the imaged portion. Biliary: No bile duct dilation. Gallbladder sludge. No cholelithiasis. Spleen: No mass. No splenomegaly. Pancreas: No mass or duct dilation. Adrenals: No mass. Kidneys: 8 mm benign left renal cyst. No solid mass. No hydronephrosis. Lymph nodes: No abdominal or pelvic lymphadenopathy. Mesentery / Peritoneum / Retroperitoneum: No ascites or mass. Vasculature: The celiac axis and SMA are patent. The portal vein and branches, splenic vein, SMV, and hepatic veins are patent. No aortic or iliac artery aneurysm. Pelvis: No mass, ascites, or loculated collection. Bones/Soft Tissues: Bilateral sacroiliac marrow edema and postcontrast enhancement consistent with bilateral sacroiliitis. 1.5 cm nodule in the right posterior subcutaneous fat (10:79) with associated calcification on prior CT, likely a injection site granuloma. Lower chest: Unremarkable. IMPRESSION IMPRESSION: 5 cm segment of neoterminal ileitis with luminal narrowing but without upstream dilation. Penetrating disease: Absent. Bilateral sacroiliitis. Respiratory Care Practitioner: PSCB Transcribe Date/Time: Dec 07 2024 9:48A Dictated by : MIGUELANGEL LAZCANO MD This examination was interpreted and the report reviewed and electronically signed by: MARCIN HESTER MD on Dec 07 2024 12:54PM EST [facility] MR Pelvis WO and W contrast Hood 12-07-2024 * * *Final Report* * * DATE OF EXAM: Dec 07 2024 9:27AM [facility] 0736 - MRI PEL ENTEROG WO/W IVCON / PROCEDURE REASON: multiple diagnoses * * * * Physician Interpretation * * * * MRI ABDOMEN WITHOUT AND WITH IV CONTRAST, MRI PELVIS WITHOUT AND WITH IV CONTRAST (MR ENTEROGRAPHY) CLINICAL HISTORY: Crohn's disease status post ileocolonic resection and colonoscopy (January 2023), last colonoscopy (08/2023) with patent ileocolonic anastomosis. TECHNIQUE: Magnet: Siemens [employer] mMR 3T scanner. Multiplanar MRI of the abdomen and MRI of pelvis with multiple sequences, performed before and after contrast. Technique was optimized for small bowel visualization/enterog ben. Contrast: Intravenous: 13 ml of Dotarem Oral: 1000 ml ml of Breeza COMPARISON: CT abdomen/pelvis 03/07/2023, MR enterography 08/13/2022 RESULT: GI Tract: Prior ileocolic resection. Small bowel: Mural thickening and hyperenhancement with narrowing involving approximately 5 cm segment of the neoterminal ileum and extending to the ileocecal junction (4:38, 17:21). No upstream dilation. Colon: No mural hyperenhancement, edema, or wall thickening. Strictures: None. No upstream dilation Fistulae/Sinus tracts: None. Some adjacent right lower quadrant mesenteric inflammatory enhancement (17:84) without a discrete fistula/sinus tract. Abscess: None Perianal: No perianal fistula or abscess. Abdomen and Pelvis: Liver: Normal morphology. No hepatic steatosis. No mass in the imaged portion. Biliary: No bile duct dilation. Gallbladder sludge. No cholelithiasis. Spleen: No mass. No splenomegaly. Pancreas: No mass or duct dilation. Adrenals: No mass. Kidneys: 8 mm benign left renal cyst. No solid mass. No hydronephrosis. Lymph nodes: No abdominal or pelvic lymphadenopathy. Mesentery / Peritoneum / Retroperitoneum: No ascites or mass. Vasculature: The celiac axis and SMA are patent. The portal vein and branches, splenic vein, SMV, and hepatic veins are patent. No aortic or iliac artery aneurysm. Pelvis: No mass, ascites, or loculated collection. Bones/Soft Tissues: Bilateral sacroiliac marrow edema and postcontrast enhancement consistent with bilateral sacroiliitis. 1.5 cm nodule in the right posterior subcutaneous fat (10:79) with associated calcification on prior CT, likely a injection site granuloma. Lower chest: Unremarkable. DIVISION OF RADIOLOGY Provider, [facility] - 12/07/2024 * * *Final Report* * * DATE OF EXAM: Dec 07 2024 9:27AM QBM [id number] - MRI PEL ENTEROG WO/W IVCON / PROCEDURE REASON: multiple diagnoses * * * * Physician Interpretation * * * * MRI ABDOMEN WITHOUT AND WITH IV CONTRAST, MRI PELVIS WITHOUT AND WITH IV CONTRAST (MR ENTEROGRAPHY) CLINICAL HISTORY: Crohn's disease status post ileocolonic resection and colonoscopy (January 2023), last colonoscopy (08/2023) with patent ileocolonic anastomosis. TECHNIQUE: Magnet: Siemens Biograph mMR 3T scanner. Multiplanar MRI of the abdomen and MRI of pelvis with multiple sequences, performed before and after contrast. Technique was optimized for small bowel visualization/enterog ben. Contrast: Intravenous: 13 ml of Dotarem Oral: 1000 ml ml of Breeza COMPARISON: CT abdomen/pelvis 03/07/2023, MR enterography 08/13/2022 RESULT: GI Tract: Prior ileocolic resection. Small bowel: Mural thickening and hyperenhancement with narrowing involving approximately 5 cm segment of the neoterminal ileum and extending to the ileocecal junction (4:38, 17:21). No upstream dilation. Colon: No mural hyperenhancement, edema, or wall thickening. Strictures: None. No upstream dilation Fistulae/Sinus tracts: None. Some adjacent right lower quadrant mesenteric inflammatory enhancement (17:84) without a discrete fistula/sinus tract. Abscess: None Perianal: No perianal fistula or abscess. Abdomen and Pelvis: Liver: Normal morphology. No hepatic steatosis. No mass in the imaged portion. Biliary: No bile duct dilation. Gallbladder sludge. No cholelithiasis. Spleen: No mass. No splenomegaly. Pancreas: No mass or duct dilation. Adrenals: No mass. Kidneys: 8 mm benign left renal cyst. No solid mass. No hydronephrosis. Lymph nodes: No abdominal or pelvic lymphadenopathy. Mesentery / Peritoneum / Retroperitoneum: No ascites or mass. Vasculature: The celiac axis and SMA are patent. The portal vein and branches, splenic vein, SMV, and hepatic veins are patent. No aortic or iliac artery aneurysm. Pelvis: No mass, ascites, or loculated collection. Bones/Soft Tissues: Bilateral sacroiliac marrow edema and postcontrast enhancement consistent with bilateral sacroiliitis. 1.5 cm nodule in the right posterior subcutaneous fat (10:79) with associated calcification on prior CT, likely a injection site granuloma. Lower chest: Unremarkable. IMPRESSION IMPRESSION: 5 cm segment of neoterminal ileitis with luminal narrowing but without upstream dilation. Penetrating disease: Absent. Bilateral sacroiliitis. Respiratory Care Practitioner: [facility] Transcribe Date/Time: Dec 07 2024 9:48A Dictated by : MIGUELANGEL LAZCANO MD This examination was interpreted and the report reviewed and electronically signed by: MARCIN HESTER MD on Dec 07 2024 12:54PM [facility] MRI ABD ENTEROG WO/W IVCONon 12-07-2024 MRI ABD ENTEROG WO/W IVCON * * *Final Report* * * DATE OF EXAM: Dec 07 2024 9:27AM QBM [id number] - MRI ABD ENTEROG WO/W IVCON / PROCEDURE REASON: multiple diagnoses * * * * Physician Interpretation * * * * MRI ABDOMEN WITHOUT AND WITH IV CONTRAST, MRI PELVIS WITHOUT AND WITH IV CONTRAST (MR ENTEROGRAPHY) CLINICAL HISTORY: Crohn's disease status post ileocolonic resection and colonoscopy (January 2023), last colonoscopy (08/2023) with patent ileocolonic anastomosis. TECHNIQUE: Magnet: Siemens [employer] mMR 3T scanner. Multiplanar MRI of the abdomen and MRI of pelvis with multiple sequences, performed before and after contrast. Technique was optimized for small bowel visualization/enterog ben. Contrast: Intravenous: 13 ml of Dotarem Oral: 1000 ml ml of Breeza COMPARISON: CT abdomen/pelvis 03/07/2023, MR enterography 08/13/2022 RESULT: GI Tract: Prior ileocolic resection. Small bowel: Mural thickening and hyperenhancement with narrowing involving approximately 5 cm segment of the neoterminal ileum and extending to the ileocecal junction (4:38, 17:21). No upstream dilation. Colon: No mural hyperenhancement, edema, or wall thickening. Strictures: None. No upstream dilation Fistulae/Sinus tracts: None. Some adjacent right lower quadrant mesenteric inflammatory enhancement (17:84) without a discrete fistula/sinus tract. Abscess: None Perianal: No perianal fistula or abscess. Abdomen and Pelvis: Liver: Normal morphology. No hepatic steatosis. No mass in the imaged portion. Biliary: No bile duct dilation. Gallbladder sludge. No cholelithiasis. Spleen: No mass. No splenomegaly. Pancreas: No mass or duct dilation. Adrenals: No mass. Kidneys: 8 mm benign left renal cyst. No solid mass. No hydronephrosis. Lymph nodes: No abdominal or pelvic lymphadenopathy. Mesentery / Peritoneum / Retroperitoneum: No ascites or mass. Vasculature: The celiac axis and SMA are patent. The portal vein and branches, splenic vein, SMV, and hepatic veins are patent. No aortic or iliac artery aneurysm. Pelvis: No mass, ascites, or loculated collection. Bones/Soft Tissues: Bilateral sacroiliac marrow edema and postcontrast enhancement consistent with bilateral sacroiliitis. 1.5 cm nodule in the right posterior subcutaneous fat (10:79) with associated calcification on prior CT, likely a injection site granuloma. Lower chest: Unremarkable. IMPRESSION: 5 cm segment of neoterminal ileitis with luminal narrowing but without upstream dilation. Penetrating disease: Absent. Bilateral sacroiliitis. Respiratory Care Practitioner: [facility] Transcribe Date/Time: Dec 07 2024 9:48A Dictated by : MIGUELANGEL LAZCANO MD This examination was interpreted and the report reviewed and electronically signed by: MARCIN HESTER MD on Dec 07 2024 12:54PM EST [id number] Normal [facility] MRI PEL ENTEROG WO/W IVCONon 12-07-2024 MRI PEL ENTEROG WO/W IVCON * * *Final Report* * * DATE OF EXAM: Dec 07 2024 9:27AM [facility] [id number] - MRI PEL ENTEROG WO/W IVCON / PROCEDURE REASON: multiple diagnoses * * * * Physician Interpretation * * * * MRI ABDOMEN WITHOUT AND WITH IV CONTRAST, MRI PELVIS WITHOUT AND WITH IV CONTRAST (MR ENTEROGRAPHY) CLINICAL HISTORY: Crohn's disease status post ileocolonic resection and colonoscopy (January 2023), last colonoscopy (08/2023) with patent ileocolonic anastomosis. TECHNIQUE: Magnet: Siemens Biograph mMR 3T scanner. Multiplanar MRI of the abdomen and MRI of pelvis with multiple sequences, performed before and after contrast. Technique was optimized for small bowel visualization/enterog ben. Contrast: Intravenous: 13 ml of Dotarem Oral: 1000 ml ml of Breeza COMPARISON: CT abdomen/pelvis 03/07/2023, MR enterography 08/13/2022 RESULT: GI Tract: Prior ileocolic resection. Small bowel: Mural thickening and hyperenhancement with narrowing involving approximately 5 cm segment of the neoterminal ileum and extending to the ileocecal junction (4:38, 17:21). No upstream dilation. Colon: No mural hyperenhancement, edema, or wall thickening. Strictures: None. No upstream dilation Fistulae/Sinus tracts: None. Some adjacent right lower quadrant mesenteric inflammatory enhancement (17:84) without a discrete fistula/sinus tract. Abscess: None Perianal: No perianal fistula or abscess. Abdomen and Pelvis: Liver: Normal morphology. No hepatic steatosis. No mass in the imaged portion. Biliary: No bile duct dilation. Gallbladder sludge. No cholelithiasis. Spleen: No mass. No splenomegaly. Pancreas: No mass or duct dilation. Adrenals: No mass. Kidneys: 8 mm benign left renal cyst. No solid mass. No hydronephrosis. Lymph nodes: No abdominal or pelvic lymphadenopathy. Mesentery / Peritoneum / Retroperitoneum: No ascites or mass. Vasculature: The celiac axis and SMA are patent. The portal vein and branches, splenic vein, SMV, and hepatic veins are patent. No aortic or iliac artery aneurysm. Pelvis: No mass, ascites, or loculated collection. Bones/Soft Tissues: Bilateral sacroiliac marrow edema and postcontrast enhancement consistent with bilateral sacroiliitis. 1.5 cm nodule in the right posterior subcutaneous fat (10:79) with associated calcification on prior CT, likely a injection site granuloma. Lower chest: Unremarkable. IMPRESSION: 5 cm segment of neoterminal ileitis with luminal narrowing but without upstream dilation. Penetrating disease: Absent. Bilateral sacroiliitis. Respiratory Care Practitioner: [facility] Transcribe Date/Time: Dec 07 2024 9:48A Dictated by : MIGUELANGEL LAZCANO MD This examination was interpreted and the report reviewed and electronically signed by: MARCIN HESTER MD on Dec 07 2024 12:54PM EST [id number] Normal [facility] Panel Informationon 12-07 IMPRESSION: 5 cm segment of neoterminal ileitis with luminal narrowing but without upstream dilation. Penetrating disease: Absent. Bilateral sacroiliitis. Respiratory Care Practitioner: [facility] Transcribe Date/Time: Dec 07 2024 9:48A Dictated by : MIGUELANGEL LAZCANO MD This examination was interpreted and the report reviewed and electronically signed by: MARCIN HESTER MD on Dec 07 2024 12:54PM EST DIVISION OF RADIOLOGY Radiology Study observation (narrative) [facility] No Panel InformationOrdered By: [facility] CNPN Telephone (GEMMA) JOCELYNE LUCAS ([id number]) 1985 F Date Time Provider Department 11/27/24 LAMONT BROWN During your visit today, we recorded the following information about you: Ankita Cleveland RN 11/27/2024 11:55 AM Signed ----- Message from Lamont Brown MD sent at 11/21/2024 10:45 PM EST ----- Regarding: start rinvoq Hi. 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 Can you put orders infor this? Thanks Ankita Oliveros RN 11/27/2024 12:04 PM Signed Requested Prescriptions Pending Prescriptions Disp Refills upadacitinib tablet ER 24 hr 45 mg (RINVOQ) 30 tablet 2 Sig: Take 1 tablet (45 mg) by mouth once daily. Swallow whole; DO NOT crush, chew, or open. upadacitinib tablet ER 24 hr 30 mg (RINVOQ) 30 tablet 11 Sig: Take 1 tablet (30 mg) by mouth once daily. Swallow whole; DO NOT crush, chew, or open. Orders pended AND routed to Dr. Brown for review / approval. Patient outreach completed via my chart. Biologic Navigator cc'd for update AND tracking purposes. Ankita Cleveland RN November 27, 2024 11:57 AM Allergies As of Date: 11/27/2024 Noted Allergy Reaction MORPHINE 02/28/2017 14 - Other: See Comments Date Reviewed: 11/13/2024 Reviewed by: Cristi Rivera - Fully Assessed Reason for Visit: Orders [681] Cmt: Starting Rinvoq Primary Visit Diagnosis:Crohn's disease of small and large intestines with complication (HCC) [K50.819] Order(s):upadacitinib tablet ER 24 hr 45 mg (RINVOQ)Take 1 tablet (45 mg) by mouth once daily. Swallow whole; DO NOT crush, chew, or open.Disp: 30 tabletRfl: 2 upadacitinib tablet ER 24 hr 30 mg (RINVOQ)Take 1 tablet (30 mg) by mouth once daily. Swallow whole; DO NOT crush, chew, or open.Disp: 30 tabletRfl: 11 Prescriptions as of 11/29/2024 - upadacitinib tablet ER 24 hr 45 mg (RINVOQ) Take 1 tablet (45 mg) by mouth once daily. Swallow whole; DO NOT crush, chew, or open. - upadacitinib tablet ER 24 hr 30 mg (RINVOQ) Take 1 tablet (30 mg) by mouth once daily. Swallow whole; DO NOT crush, chew, or open. - ergocalciferol 50,000 unit capsule (VITAMIN D2, DRISDOL) Take 1 capsule by mouth one time a week. - ondansetron (ZOFRAN) 4 mg tablet Take by mouth every 8 hours as needed for nausea/vomiting. - glucagon (GLUCAGEN) 1 mg/mL injection Inject 1 mg intravenously one time only for 1 dose. For MRI Enterography, Inject 1 mg intravenously, as directed. Slow push at the appropriate time during MRI Scan - ondansetron orally disintegrating (ZOFRAN ODT) 4 mg disintegrating tablet Take 1 tablet by mouth every 8 hours as needed for nausea/vomiting. - buPROPion SR (WELLBUTRIN SR) 150 mg 12 hr tablet TAKE 1 TABLET BY MOUTH TWICE A DAY - COLLAGEN MISC - nicotine (NICODERM) 7 mg/24 hr Apply 1 Patch as directed every 24 hours. - nicotine polacrilex (NICORETTE) 4 mg gum Take 1 Each by mouth every 2 hours as needed. Problem List As Of Date 11/27/2024 Noted Resolved S/P small bowel resection [Z90.49] 02/14/2023 Nicotine use disorder, F17.2 [F17.200] 02/16/2023 Ankylosing spondylitis (HCC) [M45.9] 02/16/2023 Crohn's disease (HCC) [K50.90] 02/16/2023 Postoperative pain [G89.18] 02/16/2023 UTI (urinary tract infection) [N39.0] 03/07/2023 Antiphospholipid syndrome (HCC) [D68.61] 09/14/2023 09/29/2023 [facility] current use of anticoagulant [Z79.01] 09/14/2023 Hypercoagulable state (HCC) [D68.59] 09/14/2023 Chronic pelvic pain in female [R10.2, G89.29] 12/22/2023 Prescriptions ordered this encounter Disp Refills Start End UPADACITINIB ER 45 MG TABLET,EXTENDE* 30 t* 2 11/27/2024 02/25/2025 Class: [facility] RX Route: ORAL Sig: Take 1 tablet (45 mg) by mouth once daily. Swallow whole; DO NOT crush, chew, or open. UPADACITINIB ER 30 MG TABLET,EXTENDE* 30 t* 11 11/27/2024 11/27/2025 Class: [facility] Route: ORAL Sig: Take 1 tablet (30 mg) by mouth once daily. Swallow whole; DO NOT crush, chew, or open. Medications Discontinued During This Encounter Prescriptions - adalimumab 40 mg/0.4 mL subcutaneous pen kit (HUMIRA (CF)) (Discontinued) Inject 40 mg (1 pen) subcutaneously every 2 weeks. - adalimumab-adaz (HYRIMOZ,CF, PEN) 40 mg/0.4 mL pen (Discontinued) Inject 0.4 mL subcutaneously every 2 weeks. - senna (SENOKOT) 8.6 mg tab (Discontinued) Reported on 02/01/2024 - 25/iron fum/folic/dha (-1 ORAL) (Discontinued) Take by mouth. - ondansetron orally disintegrating (ZOFRAN ODT) 4 mg disintegrating tablet (Discontinued) Take 1 tablet by mouth every 8 hours as needed. - cyclobenzaprine (FLEXERIL) 5 mg tablet (Discontinued) Take 1 tablet by mouth at bedtime as needed. - acetaminophen (TYLENOL EXTRA STRENGTH) 500 mg tablet (Discontinued) Take 2 tablets by mouth every 8 hours. Encounter Status:Closed by PEDRO ISRAEL on 1 (more content not included)... Normal [facility] CNOVon 11-19-2024 CNOV Office Visit (GAPSM) JOCELYNE LUCAS ([id number]) 1985 F Date Time Provider Department 11/19/24 9:00 AM RADHA SCALES During your visit today, we recorded the following information about you: Radha Scales, PhD 01/07/2025 1:09 PM Signed Patient didn't show up for her psychology intake session at 9AM on 11/19/2024. Radha Scales, PhD Gastrointestinal Psychologist Referring Provider: LAMONT BROWN [[id number]] Allergies As of Date: 11/19/2024 Noted Allergy Reaction MORPHINE 02/28/2017 14 - Other: See Comments Date Reviewed: 11/13/2024 Reviewed by: Cristi Rivera - Fully Assessed Primary Visit Diagnosis:No-show for appointment [Z91.199] Prescriptions as of 01/07/2025 - upadacitinib tablet ER 24 hr 30 mg (RINVOQ) Take 1 tablet (30 mg) by mouth once daily. Swallow whole; DO NOT crush, chew, or open. - upadacitinib tablet ER 24 hr 45 mg (RINVOQ) Take 1 tablet (45 mg) by mouth once daily. Swallow whole; DO NOT crush, chew, or open. - ergocalciferol 50,000 unit capsule (VITAMIN D2, DRISDOL) Take 1 capsule by mouth one time a week. - ondansetron (ZOFRAN) 4 mg tablet Take by mouth every 8 hours as needed for nausea/vomiting. - glucagon (GLUCAGEN) 1 mg/mL injection Inject 1 mg intravenously one time only for 1 dose. For MRI Enterography, Inject 1 mg intravenously, as directed. Slow push at the appropriate time during MRI Scan - buPROPion SR (WELLBUTRIN SR) 150 mg 12 hr tablet TAKE 1 TABLET BY MOUTH TWICE A DAY - COLLAGEN MISC - nicotine (NICODERM) 7 mg/24 hr Apply 1 Patch as directed every 24 hours. - nicotine polacrilex (NICORETTE) 4 mg gum Take 1 Each by mouth every 2 hours as needed. Problem List As Of Date 11/19/2024 Noted Resolved S/P small bowel resection [Z90.49] 02/14/2023 Nicotine use disorder, F17.2 [F17.200] 02/16/2023 Ankylosing spondylitis (HCC) [M45.9] 02/16/2023 Crohn's disease (HCC) [K50.90] 02/16/2023 Postoperative pain [G89.18] 02/16/2023 UTI (urinary tract infection) [N39.0] 03/07/2023 Antiphospholipid syndrome (HCC) [D68.61] 09/14/2023 09/29/2023 [facility] current use of anticoagulant [Z79.01] 09/14/2023 Hypercoagulable state (HCC) [D68.59] 09/14/2023 Chronic pelvic pain in female [R10.2, G89.29] 12/22/2023 Encounter Status:Closed by RADHA SCALES on 01/07/25 Normal [facility] Calprotectin (Stl) [Mass/Mas s]on 11-19-2024 CALPROTECTIN, FECAL INTERP Elevated Abnormal Normal [facility] Comment on above: Order Comment: Speci men Type: STOOL SPECIMENOrdering Facility: [facility] Address: [address] [place] [address] Result Comment: Inte rpretation: <50.0 ug/g: Normal 50.0 ug/g - 120.0 ug/g: Borderline elevated. Re-evaluation in 4-6 weeks is recommended if clinically indicated. >120.0 ug/g: Elevated Performed By: #### 3 8445-3 ####[facility] LABCLIA [id number] [place] [address] [place] CALPROTECTIN, FECAL QUANTITATIVE 361 ug/g High <50 [facility] Comment on above: Order Comment: Speci men Type: STOOL SPECIMENOrdering Facility: [facility] Address: [address] [place] [address] Performed By: #### 3 8445-3 ####[facility] LABIA [id number] [place] [address] [place] 25(OH)D3 [facility] 25-hydroxyvitamin D3 [Mass/Vol] 23.7 ng/mL Low 31.0-80.0 [facility] Comment on above: Order Comment: Speci men Type: BLOOD SPECIMENOrdering Facility: [facility] Address: [address] [place] [address] Result Comment: Clas sification of 25 [place] Vitamin D status: Deficiency/Insufficiency: < or = 30 ng/ml. Sufficiency/Optimal Levels: 31-80 ng/mL Toxicity: > 100 ng/mL. Test performed by chemiluminescent immunoassay. Performed By: #### 1 989-3 ####[facility] LABIA [id number] [place] [address] [place] 25-hydroxyvitamin D3 [Mass/V ol]on 11-13-2024 Interpretation and review of laboratory results Abnormal [facility] The reference range interval was based on an analysis of samples from healthy adults and may not pertain to children from 0-18 years old. [facility] ADALIMUMAB, SERUMon 11-13-20 Adalimumab [Mass/Vol] <0.8 Low >=7.5 [facility] Comment on above: Order Comment: Speci men Type: BLOOD SPECIMENOrdering Facility: [facility] Address: [address] [place] [address] Performed By: #### A LULU ####[facility] LABCLIA [id number] [address] STATES OF [facility] Adalimumab Ab [Mass/Vol] 212 AU/mL High <10 [facility] Comment on above: Order Comment: Speci men Type: BLOOD SPECIMENOrdering Facility: [facility] Address: [address] [place] [address] Performed By: #### A LULU ####[facility] LABCLIA [id number] [place] [address] [place] CBC W Auto Differential pane l (Bld)on 11-13-2024 Basophils (Bld) [#/Vol] 0.03 10*3/uL [facility] Basophils/100 WBC (Bld) 0.4 % C [facility] Differential cell count method Nom (Bld) Auto [facility] Eosinophils (Bld) [#/Vol] 0.20 10*3/uL [facility] Eosinophils/100 WBC (Bld) 2.5 % [facility] Erythrocyte distribution width (RBC) [Ratio] 13.2 % 11.5 - 15.0 % [facility] Hematocrit (Bld) [Volume fraction] 45.7 % 36.0 - 46.0 % [facility] Hemoglobin (Bld) [Mass/Vol] 14.9 g/dL 11.5 - 15.5 g/dL [facility] Immature granulocytes (Bld) [#/Vol] 0.03 10*3/uL [facility] Immature granulocytes/100 WBC (Bld) 0.4 % [facility] Lymphocytes (Bld) [#/Vol] 1.35 10*3/uL [facility] Lymphocytes/100 WBC (Bld) 16.9 % [facility] MCH (RBC) [Entitic mass] 31.4 pg 26.0 - 34.0 pg [facility] MCHC (RBC) [Mass/Vol] 32.6 g/dL 30.5 - 36.0 g/dL [facility] MCV (RBC) [Entitic vol] 96.2 fL 80.0 - 100.0 fL [facility] Monocytes (Bld) [#/Vol] 0.60 10*3/uL [facility] Monocytes/100 WBC (Bld) 7.5 % C [facility] Neutrophils (Bld) [#/Vol] 5.79 10*3/uL [facility] Neutrophils/100 WBC (Bld) 72.3 % [facility] Nucleated RBC (Bld) [#/Vol] NINF [facility] Nucleated RBC/100 WBC (Bld) [Ratio] 0.0 % /100 WBC [facility] Platelet mean volume (Bld) [Entitic vol] 9.5 fL 9.0 - 12.7 fL [facility] Platelets (Bld) [#/Vol] 313 10*3/uL [facility] RBC (Bld) [#/Vol] 4.75 10*6/uL 3.90 - 5.2 0 m/uL [facility] WBC (Bld) [#/Vol] 8.00 10*3/uL [facility] Basophils (Bld) [#/Vol] 0.03 10*3/uL Normal <0.11 [facility] Comment on above: Order Comment: Speci men Type: BLOOD SPECIMENOrdering Facility: [facility] Address: [address] [place] [address] Performed By: #### 5 7021-8 ####[facility] LABCLIA [id number] [place] [address] [place] Basophils/100 WBC (Bld) 0.4 % Normal [facility] Comment on above: Order Comment: Speci men Type: BLOOD SPECIMENOrdering Facility: [facility] Address: [address] [place] [address] Performed By: #### 5 7021-8 ####[facility] LABIA [id number] [place] [id number] [place] Differential cell count method Nom (Bld) Auto Normal [facility] Comment on above: Order Comment: Speci men Type: BLOOD SPECIMENOrdering Facility: [facility] Address: [address] [place] [address] Performed By: #### 5 7021-8 ####[facility] LABCLIA [id number] [place] [address] [place] Eosinophils (Bld) [#/Vol] 0.20 10*3/uL Normal <0.46 [facility] Comment on above: Order Comment: Speci men Type: BLOOD SPECIMENOrdering Facility: [facility] Address: [address] [place] [address] Performed By: #### 5 7021-8 ####[facility] LABCLIA [id number] [place] [address] [place] Eosinophils/100 WBC (Bld) 2.5 % Normal [facility] Comment on above: Order Comment: Speci men Type: BLOOD SPECIMENOrdering Facility: [facility] Address: [address] [place] [address] Performed By: #### 5 7021-8 ####[facility] LABCLIA [id number] [place] [address] [place] Erythrocyte distribution width (RBC) [Ratio] 13.2 % Normal 11.5-15.0 [facility] Comment on above: Order Comment: Speci men Type: BLOOD SPECIMENOrdering Facility: [facility] Address: [address] [place] [address] Performed By: #### 5 7021-8 ####[facility] LABCLIA [id number] [place] [address] [place] Hematocrit (Bld) [Volume fraction] 45.7 % Normal 36.0-46.0 [facility] Comment on above: Order Comment: Speci men Type: BLOOD SPECIMENOrdering Facility: [facility] Address: [address] [place] [address] Performed By: #### 5 7021-8 ####[facility] LABCLIA [id number] [place] [address] [place] Hemoglobin (Bld) [Mass/Vol] 14.9 g/dL Normal 11.5-15.5 [facility] Comment on above: Order Comment: Speci men Type: BLOOD SPECIMENOrdering Facility: [facility] Address: [address] [place] [address] Performed By: #### 5 7021-8 ####[facility] LABCLIA [id number] [place] [address] [place] Immature granulocytes (Bld) [#/Vol] 0.03 10*3/uL Normal <0.10 [facility] Comment on above: Order Comment: Speci men Type: BLOOD SPECIMENOrdering Facility: [facility] Address: [address] [place] [address] Performed By: #### 5 7021-8 ####[facility] LABIA [id number] [place] [address] [place] Immature granulocytes/100 WBC (Bld) 0.4 % Normal [facility] Comment on above: Order Comment: Speci men Type: BLOOD SPECIMENOrdering Facility: [facility] Address: [address] [place] [address] Performed By: #### 5 7021-8 ####[facility] LABCLIA [id number] [place] [address] [place] Lymphocytes (Bld) [#/Vol] 1.35 10*3/uL Normal 1.00-4.00 [facility] Comment on above: Order Comment: Speci men Type: BLOOD SPECIMENOrdering Facility: [facility] Address: [address] [place] [address] Performed By: #### 5 7021-8 ####[facility] LABCLIA [id number] [place] [address] [place] Lymphocytes/100 WBC (Bld) 16.9 % Normal [facility] Comment on above: Order Comment: Speci men Type: BLOOD SPECIMENOrdering Facility: [facility] Address: [address] [place] [address] Performed By: #### 5 7021-8 ####[facility]CLIA [id number] [place] [address] [place] MCH (RBC) [Entitic mass] 31.4 pg Normal 26.0-34.0 [facility] Comment on above: Order Comment: Speci men Type: BLOOD SPECIMENOrdering Facility: [facility] Address: [address] [place] [address] Performed By: #### 5 7021-8 ####[facility] LABIA [id number] [place] [address] [place] MCHC (RBC) [Mass/Vol] 32.6 g/dL Normal 30.5-36.0 [facility] Comment on above: Order Comment: Speci men Type: BLOOD SPECIMENOrdering Facility: [facility] Address: [address] [place] [address] Performed By: #### 5 7021-8 ####[facility] LABIA [id number] [place] [address] [place] MCV (RBC) [Entitic vol] 96.2 fL Normal 80.0-100.0 C [facility] Comment on above: Order Comment: Speci men Type: BLOOD SPECIMENOrdering Facility: [facility] Address: [address] [place] [address] Performed By: #### 5 7021-8 ####[facility]CL[facility] [id number] [place] [address] [place] Monocytes (Bld) [#/Vol] 0.60 10*3/uL Normal <0.87 [facility] Comment on above: Order Comment: Speci men Type: BLOOD SPECIMENOrdering Facility: [facility] Address: [address] [place] [address] Performed By: #### 5 7021-8 ####[facility]CLIA [id number] [place] [address] [place] Monocytes/100 WBC (Bld) 7.5 % Normal [facility] Comment on above: Order Comment: Speci men Type: BLOOD SPECIMENOrdering Facility: [facility] Address: [address] [place] [address] Performed By: #### 5 7021-8 ####[facility]CLIA [id number] [place] [address] [place] Neutrophils (Bld) [#/Vol] 5.79 10*3/uL Normal 1.45-7.50 [facility] Comment on above: Order Comment: Speci men Type: BLOOD SPECIMENOrdering Facility: [facility] Address: [address] [place] [address] Performed By: #### 5 7021-8 ####[facility]CLIA [id number] [place] [address] [place] Neutrophils/100 WBC (Bld) 72.3 % Normal [facility] Comment on above: Order Comment: Speci men Type: BLOOD SPECIMENOrdering Facility: [facility] Address: [address] [place] [address] Performed By: #### 5 7021-8 ####[facility] LABCLIA [id number] [place] [address] [place] Nucleated RBC (Bld) [#/Vol] 10*3/uL Normal <0.01 [facility] Comment on above: Order Comment: Speci men Type: BLOOD SPECIMENOrdering Facility: [facility] Address: [address] [place] [address] Performed By: #### 5 7021-8 ####[facility] LABCLIA [id number] [place] [address] [place] Nucleated RBC/100 WBC (Bld) [Ratio] 0.0 /100 WBC Normal [facility] Comment on above: Order Comment: Speci men Type: BLOOD SPECIMENOrdering Facility: [facility] Address: [address] [place] [address] Performed By: #### 5 7021-8 ####[facility] LABIA [id number] [place] [address] [place] Platelet mean volume (Bld) [Entitic vol] 9.5 fL Normal 9.0-12.7 [facility] Comment on above: Order Comment: Speci men Type: BLOOD SPECIMENOrdering Facility: [facility] Address: [address] [place] [address] Performed By: #### 5 7021-8 ####[facility] LABIA [id number] [place] [address] [place] Platelets (Bld) [#/Vol] 313 10*3/uL Normal 150-400 [facility] Comment on above: Order Comment: Speci men Type: BLOOD SPECIMENOrdering Facility: [facility] Address: [address] [place] [address] Performed By: #### 5 7021-8 ####[facility] LABIA [id number] [place] [address] [place] RBC (Bld) [#/Vol] 4.75 10*6/uL Normal 3.90-5.20 [facility] Comment on above: Order Comment: Speci men Type: BLOOD SPECIMENOrdering Facility: [facility] Address: [address] [place] [address] Performed By: #### 5 7021-8 ####[facility] LABCLIA [id number] [place] [address] [place] WBC (Bld) [#/Vol] 8.00 10*3/uL Normal 3.70-11.00 [facility] Comment on above: Order Comment: Speci men Type: BLOOD SPECIMENOrdering Facility: [facility] Address: [address] [place] [address] Performed By: #### 5 7021-8 ####[facility] LABCLIA [id number] [facility] [place] [address] [place] Comprehensive metabolic 2000 panelon 11-13-2024 Albumin [Mass/Vol] 4.6 g/dL 3.9 - 4.9 g/dL [facility] ALP [Catalytic activity/Vol] 65 U/L 34 - 123 U/L [facility] ALT [Catalytic activity/Vol] 10 U/L 7 - 38 U/L [facility] Anion gap [Moles/Vol] 12 mmol/L 8 - 15 mmol/L [facility] AST [Catalytic activity/Vol] 14 U/L 13 - 35 U/L [facility] Bilirubin [Mass/Vol] 0.3 mg/dL 0.2 - 1 .3 mg/dL [facility] Calcium [Mass/Vol] 9.6 mg/dL 8.5 - 10. 2 mg/dL [facility] Chloride [Moles/Vol] 103 mmol/L 98 - 10 7 mmol/L [facility] CO2 [Moles/Vol] 27 mmol/L 22 - 30 mmol/L [facility] Creatinine [Mass/Vol] 0.64 mg/dL 0.58 - 0.96 mg/dL [facility] GFR/1.73 sq M.predicted among non-blacks MDRD (S/P/Bld) [Vol rate/Area] 114 mL/min/{1.73_m2} - PINF [facility] Comment on above: Estimated Glomerular Filtration Rate (eGFR) is calculated using the 2020 CKD-EPI creatinine equation. This equation utilizes serum creatinine, sex, and age as parameters. The creatinine assay has traceable calibration to isotope dilution-mass spectrometry. Refer to KDIGO guidelines for clinical interpretation. In patients with unstable renal function, e.g. those with acute kidney injury, the eGFR may not accurately reflect actual GFR. Glucose [Mass/Vol] 98 mg/dL 74 - 99 mg/dL [facility] Comment on above: The [place] Diabete [employer] Association (ADA) provides guidance for cutoff values [...] Standards of Medical Care in Diabetes 2016, [place] Diabetes Association. Diabetes Care. 2016.39(Suppl 1). Potassium [Moles/Vol] 4.6 mmol/L 3.7 - 5.1 mmol/L [facility] Protein [Mass/Vol] 7.3 g/dL 6.3 - 8.0 g/dL [facility] Sodium [Moles/Vol] 142 mmol/L 136 - 144 mmol/L [facility] Urea nitrogen [Mass/Vol] 10 mg/dL 7 - 21 mg/dL [facility] Albumin [Mass/Vol] 4.6 g/dL Normal 3.9-4.9 [facility] Comment on above: Order Comment: Speci men Type: BLOOD SPECIMENOrdering Facility: [facility] Address: [address] [place] [address] Performed By: #### 5 0190-8, 6-3, 3023-7, 01985-1 ####[facility] [id number] [place] [address] [place] ALP [Catalytic activity/Vol] 65 U/L Normal 34-123 [facility] Comment on above: Order Comment: Speci men Type: BLOOD SPECIMENOrdering Facility: [facility] Address: [address] [place] [address] Performed By: #### 5 0190-8, 6-3, 302-7, 94778-3 ####[facility] LABIA [id number] [place] [id number] [place] ALT [Catalytic activity/Vol] 10 U/L Normal 7-38 [facility] Comment on above: Order Comment: Speci men Type: BLOOD SPECIMENOrdering Facility: [facility] Address: [address] [place] [id number] Performed By: #### 5 0190-8, 6-3, 7, ####[facility] LABCLIA [id number] [address] [address] [place] Anion gap [Moles/Vol] 12 mmol/L Normal 8-15 [facility] Comment on above: Order Comment: Speci men Type: BLOOD SPECIMENOrdering Facility: [facility] Address: [address] [place], [place] [id number] Performed By: #### 5 0190-8, 6-3, 7, ####[facility] LABCLIA [id number] [place] [address] [place] AST [Catalytic activity/Vol] 14 U/L Normal 13-35 [facility] Comment on above: Order Comment: Speci men Type: BLOOD SPECIMENOrdering Facility: [facility] Address: [address] [place] [id number] Performed By: #### 5 0190-8, 6-3, 7, ####[facility] LABCLIA [id number] [place] [id number] [place] Bilirubin [Mass/Vol] 0.3 mg/dL Normal 0.2-1.3 [facility] Comment on above: Order Comment: Speci men Type: BLOOD SPECIMENOrdering Facility: [facility] Address: [address] [place] [address] Performed By: #### 5 0190-8, 3015-3, 7, ####[facility] LABCLIA [id number] [address] [address] [place] Calcium [Mass/Vol] 9.6 mg/dL Normal 8.5-10.2 [facility] Comment on above: Order Comment: Speci men Type: BLOOD SPECIMENOrdering Facility: [facility] Address: [address] [place] [address] Performed By: #### 5 0190-8, 6-3, 7, 55720-5 ####[facility] LABCLIA [id number] [place] [address] [place] Chloride [Moles/Vol] 103 mmol/L Normal 98-107 [facility] Comment on above: Order Comment: Speci men Type: BLOOD SPECIMENOrdering Facility: [facility] Address: [address] [place] [address] Performed By: #### 5 0190-8, 3015-3, 7, 08035-8 ####[facility] LABCLIA [id number] [place] [address] [place] CO2 [Moles/Vol] 27 mmol/L Normal 22-30 [facility] Comment on above: Order Comment: Speci men Type: BLOOD SPECIMENOrdering Facility: [facility] Address: [address] [place] [address] Performed By: #### 5 0190-8, 3015-3, 7, 48343-0 ####[facility] LABCLIA [id number] [place] [address] [place] Creatinine [Mass/Vol] 0.64 mg/dL Normal 0.58-0.96 [facility] Comment on above: Order Comment: Speci men Type: BLOOD SPECIMENOrdering Facility: [facility] Address: [address] [place] [address] Performed By: #### 5 0190-8, 3015-3, 7, 83643-3 ####[facility] LABCLIA [id number] [place] [address] [place] Creatinine and Glomerular filtration rate.predicted panel (S/P/Bld) 114 mL/min/1.73m??? Normal >=60 [facility] Comment on above: Order Comment: Uday adria Type: BLOOD SPECIMENOrdering Facility: [facility] Address: [address] [place] [address] Result Comment: Abbey mated Glomerular Filtration Rate [...] accurately reflect actual GFR. Performed By: #### 5 0190-8, 3016-3, 3023-7, 33848-2 ####[facility] LABCLIA [id number] [place] [address] [place] Glucose [Mass/Vol] 98 mg/dL Normal 74-99 [facility] Comment on above: Order Comment: Uday covington Type: BLOOD SPECIMENOrdering Facility: [facility] Address: [address] [place] [address] Result Comment: The [place] Diabetes Association (ADA) provides guidance for cutoff [...] Standards of Medical Care in Diabetes 2016, [place] [employer]. Diabetes Care. 2016.39(Suppl 1). Performed By: #### 5 0190-8, 3016-3, 3023-7, 52197-6 ####[facility] LABCLIA [id number] [address] [address] [place] Potassium [Moles/Vol] 4.6 mmol/L Normal 3.7-5.1 [facility] Comment on above: Order Comment: Speci men Type: BLOOD SPECIMENOrdering Facility: [facility] Address: [address] [place] [address] Performed By: #### 5 0190-8, 6-3, 7, 10447-9 ####[facility] LABCLIA [id number] [place] [address] [place] Protein [Mass/Vol] 7.3 g/dL Normal 6.3-8.0 [facility] Comment on above: Order Comment: Speci men Type: BLOOD SPECIMENOrdering Facility: [facility] Address: [address] [place] [address] Performed By: #### 5 0190-8, 6-3, 3024-05, 81940-7 ####[facility] LABIA [id number] [place] [address] [place] Sodium [Moles/Vol] 142 mmol/L Normal 136-144 [facility] Comment on above: Order Comment: Speci men Type: BLOOD SPECIMENOrdering Facility: [facility] Address: [address] [place] [address] Performed By: #### 5 0190-8, 6-3, 3024-05, 37609-0 ####[facility] LABIA [id number] [place] [address] [place] Urea nitrogen [Mass/Vol] 10 mg/dL Normal 7-21 [facility] Comment on above: Order Comment: Speci men Type: BLOOD SPECIMENOrdering Facility: [facility] Address: [address] [place] [address] Performed By: #### 5 0190-8, 6-3, 3024-05, ####[facility] LABCLIA [id number] [address] [address] [place] Ferritin SerPl-ncon 2023 Ferritin [Mass/Vol] 74.0 ng/mL Normal 14.7-205.1 [facility] Comment on above: Order Comment: Speci men Type: BLOOD SPECIMENOrdering Facility: [facility] Address: [address] [place] [address] Performed By: #### 3 034-6, 2276-4, 2132-9 ####[facility] LABCLIA [id number] [place] [address] [place] Iron and Iron binding capaci ty panel 11-13-2024 Iron [Mass/Vol] 105 ug/dL 41 - 186 ug/dL [facility] Iron binding capacity [Mass/Vol] 369 ug/dL 232 - 386 ug/dL [facility] Iron/TIBC [Molar ratio] 28.5 % 15.0 - 57.0 % [facility] Iron [Mass/Vol] 105 ug/dL Normal 41-186 [facility] Comment on above: Order Comment: Speci men Type: BLOOD SPECIMENOrdering Facility: [facility] Address: [address] [place] [address] Performed By: #### 5 0190-8, 3016-3, 3024-7, 72384-4 ####[facility] LABCLIA [id number] [place] [address] [place] Iron binding capacity [Mass/Vol] 369 ug/dL Normal 232-386 [facility] Comment on above: Order Comment: Speci men Type: BLOOD SPECIMENOrdering Facility: [facility] Address: [address] [place] [address] Performed By: #### 5 0190-8, 3016-3, 3024-7, 62818-1 ####[facility] LABCLIA [id number] [place] [address] [place] Iron/TIBC [Molar ratio] 28.5 % Normal 15.0-57.0 [facility] Comment on above: Order Comment: Speci men Type: BLOOD SPECIMENOrdering Facility: [facility] Address: [address] [place] [address] Performed By: #### 5 0190-8, 3016-3, 3024-7, 12389-3 ####[facility] LABCLIA [id number] [place] [address] [place] Laboratory - Chemistry and C hemistry - challengeon 11-13-2024 25-hydroxyvitamin D3 [Mass/Vol] 23.7 ng/mL Low 31.0 - 80.0 ng/mL [facility] Comment on above: Classification of 25 [place] Vitamin D status: Deficiency/Insufficiency: < or = 30 ng/ml. Sufficiency/Optimal Levels: 31-80 ng/mL Toxicity: > 100 ng/mL. Test performed by chemiluminescent immunoassay. Cobalamin (Vitamin B12) [Mass/Vol] 443 pg/mL 232 - 1245 pg/mL [facility] Ferritin [Mass/Vol] 74.0 ng/mL 14.7 - 2 05.1 ng/mL [facility] Free T4 [Mass/Vol] 1.2 ng/dL 0.9 - 1.7 ng/dL [facility] TSH Qn 0.978 m[IU]/L [facility] Comment on above: If the patient is pr egnant, TSH reference range varies by gestational period: First Trimester (weeks 9-12): 0.180-2.990 mIU/L Second Trimester: 0.110-3.980 mIU/L Third Trimester: 0.480-4.710 mIU/L Anand Fish et al. A Practical Approach for the Verifications and Determination of Site- and Trimester-Specific Reference Intervals for Thyroid Function tests in . Thyroid, 2019:29:3:412-420. Sai Rosa, et al. 2017 Guidelines of the [place] Thyroid Association for the Diagnosis and Management of Thyroid Disease during and the . Thyroid, 2017:27:3:315-389. Transferrin [Mass/Vol] 293 mg/dL 200 - 360 mg/dL [facility] No Panel Informationon 11-13 Interpretation and review of laboratory results Normal [facility] Interpretation and review of laboratory results Normal [facility] Interpretation and review of laboratory results Normal [facility] T4 Free SerPl-mCncon 024 Free T4 [Mass/Vol] 1.2 ng/dL Normal 0.9-1.7 [facility] Comment on above: Order Comment: Speci men Type: BLOOD SPECIMENOrdering Facility: [facility] Address: [address] [place] [address] Performed By: #### 5 0190-8, 3016-3, 3024-7, 39990-3 ####[facility] LABIA [id number] [place] [address] [place] TSH SerPl-aCncon 11-13-2024 TSH Qn 0.978 m[IU]/L Normal 0.270-4.200 [facility] Comment on above: Order Comment: Speci adria Type: BLOOD SPECIMENOrdering Facility: [facility] Address: [address] [place] [address] Result Comment: If t he patient is , TSH reference range varies by gestational period: First Trimester (weeks 9-12): 0.180-2.990 mIU/L Second Trimester: 0.110-3.980 mIU/L Third Trimester: 0.480-4.710 mIU/L Anand Fish et al. A Practical Approach for the Verifications and Determination of Site- and Trimester-Specific Reference Intervals for Thyroid Function tests in . Thyroid, 2019:29:3:412-420. Sai Rosa, et al. 2017 Guidelines of the [place] Thyroid Association for the Diagnosis and Management of Thyroid Disease during and the . Thyroid, 2017:27:3:315-389. Performed By: #### 5 0190-8, 3016-3, 3024-7, 85584-6 ####[facility] LABIA [id number] [address] [address] [place] Transferrin SerPl-mCncon Transferrin [Mass/Vol] 293 mg/dL Normal 200-360 [facility] Comment on above: Order Comment: Speci adria Type: BLOOD SPECIMENOrdering Facility: [facility] Address: [address] [place] [address] Performed By: #### 3 034-6, 22705-01, 2132-07 ####[facility] LABCLIA [id number] [place] [id number] [place] Vit B12 [facility] 11-13- 024 Cobalamin (Vitamin B12) [Mass/Vol] 443 pg/mL Normal 232-1245 [facility] Comment on above: Order Comment: Speci men Type: BLOOD SPECIMENOrdering Facility: [facility] Address: [address] [place] [address] Performed By: #### 3 034-6, 2275-4, 2132-07 ####[facility] LABCLIA [id number] [address] [place] Comprehensive metabolic 2000 panelon 12-09-2023 Albumin [Mass/Vol] 4.3 g/dL Normal 3.9-4.9 [facility] Comment on above: Order Comment: Speci men Type: BLOOD SPECIMEN Ordering Facility: [facility] Address: [address] [place] [address] Performed By: #### 2 4323-8 #### [facility] CLIA [id number] [place] [address] [place] ALP [Catalytic activity/Vol] 47 U/L Normal 34-123 [facility] Comment on above: Order Comment: Speci men Type: BLOOD SPECIMEN Ordering Facility: [facility] Address: [address] [place] [address] Performed By: #### 2 4323-8 #### [facility] CLIA [id number] [place] [address] [place] ALT [Catalytic activity/Vol] 13 U/L Normal 7-38 [facility] Comment on above: Order Comment: Speci men Type: BLOOD SPECIMEN Ordering Facility: [facility] Address: [address] [place] [address] Performed By: #### 2 4323-8 #### [facility] CLIA [id number] [place] [address] [place] Anion gap [Moles/Vol] 10 mmol/L Normal 9-18 [facility] Comment on above: Order Comment: Speci men Type: BLOOD SPECIMEN Ordering Facility: [facility] Address: [address] [place] [address] Performed By: #### 2 4323-8 #### [facility] CLIA [id number] [place] [address] [place] AST [Catalytic activity/Vol] 20 U/L Normal 13-35 [facility] Comment on above: Order Comment: Speci men Type: BLOOD SPECIMEN Ordering Facility: [facility] Address: [address] [place] [address] Performed By: #### 2 4323-8 #### [facility] [place] [id number] [place] [address] [place] Bilirubin [Mass/Vol] 0.3 mg/dL Normal 0.2-1.3 [facility] Comment on above: Order Comment: Speci men Type: BLOOD SPECIMEN Ordering Facility: [facility] Address: [address] [place] [address] Performed By: #### 2 4323-8 #### [facility] IA [id number] [place] [address] [place] Calcium [Mass/Vol] 9.1 mg/dL Normal 8.5-10.2 [facility] Comment on above: Order Comment: Speci men Type: BLOOD SPECIMEN Ordering Facility: [facility] Address: [address] [place] [address] Performed By: #### 2 4323-8 #### [facility] CLIA [id number] [place] [address] [place] Chloride [Moles/Vol] 104 mmol/L Normal 97-105 [facility] Comment on above: Order Comment: Speci men Type: BLOOD SPECIMEN Ordering Facility: [facility] Address: [address] [place] [address] Performed By: #### 2 4323-8 #### [facility] CLIA [id number] [address] [place] [id number] [place] CO2 [Moles/Vol] 26 mmol/L Normal 22-30 [facility] Comment on above: Order Comment: Speci men Type: BLOOD SPECIMEN Ordering Facility: [facility] Address: [address] [id number] Performed By: #### 2 4323-8 #### [facility] CLIA [id number] [place] [address] [place] Creatinine [Mass/Vol] 0.67 mg/dL Normal 0.58-0.96 [facility] Comment on above: Order Comment: Speci men Type: BLOOD SPECIMEN Ordering Facility: [facility] Address: [address] [place] [address] Performed By: #### 2 4323-8 #### [facility] CLIA [id number] [address] [place] [address] [facility] Creatinine and Glomerular filtration rate.predicted panel (S/P/Bld) 113 mL/min/1.73m??? Normal >=60 [facility] Comment on above: Order Comment: Speci men Type: BLOOD SPECIMEN Ordering Facility: [facility] Address: [address] [place] [address] Result Comment: Abbey mated Glomerular Filtration Rate [...] GFR. Performed By: #### 2 4323-8 #### [facility] CLIA [id number] [facility] [place] [address] [place] Glucose [Mass/Vol] 94 mg/dL Normal 74-99 [facility] Comment on above: Order Comment: Speci men Type: BLOOD SPECIMEN Ordering Facility: [facility] Address: [address] [place] [address] Result Comment: The [place] [employer] (ADA) provides guidance for cutoff [...] Standards of Medical Care in Diabetes 2016, [place] [employer]. Diabetes Care. 2016.39(Suppl 1). Performed By: #### 2 4323-8 #### [facility] [place] [id number] [place] [address] [place] Potassium [Moles/Vol] 4.4 mmol/L Normal 3.7-5.1 [facility] Comment on above: Order Comment: Speci men Type: BLOOD SPECIMEN Ordering Facility: [facility] Address: [address] [place] [address] Performed By: #### 2 4323-8 #### [facility] [place] [id number] [address] [place] [address] [place] Protein [Mass/Vol] 7.0 g/dL Normal 6.3-8.0 [facility] Comment on above: Order Comment: Bradyi men Type: BLOOD SPECIMEN Ordering Facility: [facility] Address: [address] [place] [address] Performed By: #### 2 4323-8 #### [facility] [place] [id number] [address] [place] [address] [place] Sodium [Moles/Vol] 140 mmol/L Normal 136-144 [facility] Comment on above: Order Comment: Speci men Type: BLOOD SPECIMEN Ordering Facility: [facility] Address: [address] [place] [address] Performed By: #### 2 4323-8 #### [facility] [place] [id number] [address] [place] [address] [place] Urea nitrogen [Mass/Vol] 13 mg/dL Normal 7-21 [facility] Comment on above: Order Comment: Speci men Type: BLOOD SPECIMEN Ordering Facility: [facility] Address: [address], [place] [address] Performed By: #### 2 4323-8 #### [facility] CLIA [id number] [place] [address] [place] HISTORY PHYSICALon HISTORY PHYSICAL HNO ID: [id number] Author: MAURIZIO STINSON PA-C Service: ? Author Type: Physician Asset Coordinator Type: H&P Filed: 12/09/2023 14:27 Note Text: [...] the past, current blood thinners. Per Dr. Vazquez 10/18/23 The contribution of an slightly increased [...] (Hcc) Postoperative Pain Uti (Urinary Tract Infection) Care Home Current Use of Anticoagulant Hypercoagulable State [...] Taking Y (more content not included)... Normal [facility] No Panel Informationon 01-19 Radiology Study observation (narrative) [facility] XR Sacroiliac Joint Viewson 01-19-2023 IMPRESSION: 1. Bilateral sacroiliitis. Respiratory Care Practitioner: JHONNY Transcribe Date/Time: Jan 19 2023 12:03P Dictated by : ERIN LEONG MD This examination was interpreted and the report reviewed and electronically signed by: ERIN LEONG MD on Jan 19 2023 12:04PM [facility] DIVISION OF RADIOLOGY * * *Final Report* * * DATE OF EXAM: Jan 19 2023 11:01AM LZX 5245 - XR SI JTS 2V AP PELV/CARBONE / PROCEDURE REASON: multiple diagnoses * * * * Physician Interpretation * * * * Sacroiliac joint x-rays: HISTORY: Pain. Inflammatory bowel disease. TECHNIQUE: An AP view of the pelvis and a Carbone view of the sacroiliac joints was performed. RESULT: There is subchondral irregularity and subchondral sclerosis involving the sacroiliac joints bilaterally consistent with sacroiliitis. There is no evidence of an acute fracture. Hip joint spaces are preserved. DIVISION OF RADIOLOGY Provider, Lev Dent - 01/19/2023 * * *Final Report* * * DATE OF EXAM: Jan 19 2023 11:01AM LZX 5245 - XR SI JTS 2V AP PELV/CARBONE / PROCEDURE REASON: multiple diagnoses * * * * Physician Interpretation * * * * Sacroiliac joint x-rays: HISTORY: Pain. Inflammatory bowel disease. TECHNIQUE: An AP view of the pelvis and a Carbone view of the sacroiliac joints was performed. RESULT: There is subchondral irregularity and subchondral sclerosis involving the sacroiliac joints bilaterally consistent with sacroiliitis. There is no evidence of an acute fracture. Hip joint spaces are preserved. IMPRESSION IMPRESSION: 1. Bilateral sacroiliitis. Respiratory Care Practitioner: [facility] Transcribe Date/Time: Jan 19 2023 12:03P Dictated by : ERIN LEONG MD This examination was interpreted and the report reviewed and electronically signed by: ERIN LEONG MD on Jan 19 2023 12:04PM EST [facility] XR Sacroiliac Joint ViewsOrd ered By: [facility] Provider on 01-19-2023 [facility] XR Thoracic spine AP and Lat eral and Swimmerson 01-19-2023 IMPRESSION: 1. No significant spondylosis demonstrated. Respiratory Care Practitioner: [facility] Transcribe Date/Time: Jan 19 2023 12:29P Dictated by : ERIN LEONG MD This examination was interpreted and the report reviewed and electronically signed by: ERIN LEONG MD on Jan 19 2023 12:29PM EST DIVISION OF RADIOLOGY * * *Final Report* * * DATE OF EXAM: Jan 19 2023 11:01AM LZX 5261 - XR THORACIC 3V AP/LAT/SWIMMERS / PROCEDURE REASON: multiple diagnoses * * * * Physician Interpretation * * * * Thoracic spine x-rays: HISTORY: Back stiffness TECHNIQUE: AP, lateral and swimmer's views of the thoracic spine are reviewed. RESULT: Counting reference: Craniocervical junction. Anatomic variants: None. Alignment is anatomic. Disc spaces are maintained. DIV[facility]OLOGY [facility] - 01/19/2023 * * *Final Report* * * DATE OF EXAM: Jan 19 2023 11:01AM LZX 5261 - XR THORACIC 3V AP/LAT/SWIMMERS / PROCEDURE REASON: multiple diagnoses * * * * Physician Interpretation * * * * Thoracic spine x-rays: HISTORY: Back stiffness TECHNIQUE: AP, lateral and swimmer's views of the thoracic spine are reviewed. RESULT: Counting reference: Craniocervical junction. Anatomic variants: None. Alignment is anatomic. Disc spaces are maintained. IMPRESSION IMPRESSION: 1. No significant spondylosis demonstrated. Respiratory Care Practitioner: JHONNY Transcribe Date/Time: Jan 19 2023 12:29P Dictated by : ERIN LEONG MD This examination was interpreted and the report reviewed and electronically signed by: ERIN LEONG MD on Jan 19 2023 12:29PM [facility] DXA-AXIAL SKELETONon 023 [facility] CBC panel Auto (Bld)on 12-10 Erythrocyte distribution width (RBC) [Ratio] 13.0 % 11.5 - 15.0 % [facility] Hematocrit (Bld) [Volume fraction] 44.9 % 36.0 - 46.0 % [facility] Hemoglobin (Bld) [Mass/Vol] 14.8 g/dL 11.5 - 15.5 g/dL [facility] MCH (RBC) [Entitic mass] 31.2 pg 26.0 - 34.0 pg [facility] MCHC (RBC) [Mass/Vol] 33.0 g/dL 30.5 - 36.0 g/dL [facility] MCV (RBC) [Entitic vol] 94.7 fL 80.0 - 100.0 fL [facility] Nucleated RBC (Bld) [#/Vol] <0.01 k/uL [facility] Platelet mean volume (Bld) [Entitic vol] 9.6 fL 9.0 - 12.7 fL [facility] Platelets (Bld) [#/Vol] 353 10*3/uL 150 - 400 k/uL [facility] RBC (Bld) [#/Vol] 4.74 10*6/uL 3.90 - 5.2 0 m/uL [facility] WBC (Bld) [#/Vol] 9.31 10*3/uL 3.70 - 11. 00 k/uL [facility] COLONOSCOPY DIAGNOSTICon [facility] No Panel Informationon 08-13 [facility] Laboratory - Drug toxicology on 07-07-2022 Adalimumab [Mass/Vol] 4.45 ug/mL >=0.65 ug/mL [facility] No Panel Informationon 07-07 ADALIMUMAB NEUTRALIZING ANTIBODY Not detected Not Detected [facility] Pathology study See Note [facility] Laboratory - Microbiology an d Antimicrobial susceptibilityon 07-06-2022 M. tuberculosis tuberculin stim IFN-g Ql (Bld) Negative [facility] No Panel Informationon 07-06 Mitogen minus Nil >=0.50 IU/mL [facility] TB Gamma Interpretation Infection with M . tuberculosis complex is unlikely. If latent tuberculosis infection is highly suspected, a negative result does not rule out the infection. Specimens from immunocompromised patients and those <5 years of age may show false negative results. In case of a contact investigation, please repeat 8-12 weeks after a known exposure. [facility] TB Nil 0.01 IU/mL <=8.00 IU/mL [facility] TB1 Ag minus Nil 0.00 IU/mL <0.35 IU/mL [facility] TB2 Ag minus Nil 0.00 IU/mL <0.35 IU/mL [facility] CBC panel Auto (Bld)on 07-05 Erythrocyte distribution width (RBC) [Ratio] 13.1 % 11.5 - 15.0 % [facility] Hematocrit (Bld) [Volume fraction] 45.2 % 36.0 - 46.0 % [facility] Hemoglobin (Bld) [Mass/Vol] 14.4 g/dL 11.5 - 15.5 g/dL [facility] MCH (RBC) [Entitic mass] 31.2 pg 26.0 - 34.0 pg [facility] MCHC (RBC) [Mass/Vol] 31.9 g/dL 30.5 - 36.0 g/dL [facility] MCV (RBC) [Entitic vol] 97.8 fL 80.0 - 100.0 fL [facility] Nucleated RBC (Bld) [#/Vol] <0.01 k/uL [facility] Platelet mean volume (Bld) [Entitic vol] 10.1 fL 9.0 - 12.7 fL [facility] Platelets (Bld) [#/Vol] 245 10*3/uL 150 - 400 k/uL [facility] RBC (Bld) [#/Vol] 4.62 10*6/uL 3.90 - 5.2 0 m/uL [facility] WBC (Bld) [#/Vol] 6.35 10*3/uL 3.70 - 11. 00 k/uL [facility] Comprehensive metabolic 2000 panelon 07-05-2022 Albumin [Mass/Vol] 4.7 g/dL 3.9 - 4.9 g/dL [facility] ALP [Catalytic activity/Vol] 61 U/L 34 - 123 U/L [facility] ALT [Catalytic activity/Vol] 8 U/L 7 - 38 U/L [facility] Anion gap [Moles/Vol] 9 mmol/L 9 - 18 mmol/L [facility] AST [Catalytic activity/Vol] 18 U/L 13 - 35 U/L [facility] Bilirubin [Mass/Vol] 0.5 mg/dL 0.2 - 1 .3 mg/dL [facility] Calcium [Mass/Vol] 9.5 mg/dL 8.5 - 10. 2 mg/dL [facility] Chloride [Moles/Vol] 105 mmol/L 97 - 10 5 mmol/L [facility] CO2 [Moles/Vol] 26 mmol/L 22 - 30 mmol/L [facility] Creatinine [Mass/Vol] 0.73 mg/dL 0.58 - 0.96 mg/dL [facility] Estimated Glomerular Filtration Rate 107 mL/min/1.73m >=60 mL/min/1.73m [facility] Glucose [Mass/Vol] 96 mg/dL 74 - 99 mg/dL [facility] Potassium [Moles/Vol] 4.6 mmol/L 3.7 - 5.1 mmol/L [facility] Protein [Mass/Vol] 7.2 g/dL 6.3 - 8.0 g/dL [facility] Sodium [Moles/Vol] 140 mmol/L 136 - 144 mmol/L [facility] Urea nitrogen [Mass/Vol] 8 mg/dL 7 - 21 mg/dL [facility] Iron and Iron binding capaci ty panelon 07-05-2022 Iron [Mass/Vol] 103 ug/dL 41 - 186 ug/dL [facility] Iron binding capacity [Mass/Vol] 331 ug/dL 232 - 386 ug/dL [facility] Iron/TIBC [Molar ratio] 31.1 % 15.0 - 57.0 % [facility] Laboratory - Chemistry and C hemistry - challengeon 07-05-2022 25-hydroxyvitamin D3 [Mass/Vol] 35.8 ng/mL 31.0 - 80.0 ng/mL [facility] Cobalamin (Vitamin B12) [Mass/Vol] 284 pg/mL 232 - 1,245 pg/mL [facility] Ferritin [Mass/Vol] 68.0 ng/mL 14.7 - 2 05.1 ng/mL [facility] No Panel Informationon 07-05 Hepatitis A IgG Negative Negative [facility] Auth for Release of Medical Recordson 07-02-2022 Auth for Release of Medical Records [id number] Normal [facility] Vital Signs Date Time Vital Sign Value Performing Clinician Faci lity 12-27-2024 10:00-0500 Diastolic blood pressure 62 mm[Hg] Shiva Wayne MD Work Phone: [facility] 12-27-2024 10:00-0500 Heart rate 67 /min Shiva Wayne MD Work Phone: [facility] 12-27-2024 10:00-0500 Respiratory rate 16 /min Shiva Wayne MD Work Phone: [facility] 12-27-2024 10:00-0500 SaO2% (BldA) [Mass fraction] 99 % Shiva Wayne MD Work Phone: [facility] 12-27-2024 10:00-0500 Systolic blood pressure 93 mm[Hg] Shiva Wayne MD Work Phone: [facility] 12-27-2024 09:30-0500 Body temperature 96.8 [degF] Shiva Wayne MD Work Phone: [facility] 12-27-2024 07:29-0500 Body height 160 cm Shiva Wayne MD Work Phone: [facility] 12-27-2024 07:29-0500 Body mass index (BMI) [Ratio] 23.92 kg/m2 Shiva Wayne MD Work Phone: [facility] 12-27-2024 07:29-0500 Body weight 61.24 kg Shiva Wayne MD Work Phone: [facility] 12-17-2024 15:23-0500 Body mass index (BMI) [Ratio] 24.8 kg/m2 Enmanuel Porter RD Work Phone: [facility] 12-17-2024 15:23-0500 Body weight 63.[address] Work Phone: [facility] 12-07-2024 09:32-0500 Diastolic blood pressure 68 mm[Hg] Mri (I-Stat/1.5t/3t) Work Phone: [facility] 12-07-2024 09:32-0500 Heart rate 82 /min Mri (I-Stat/1.5t/3t) Work Phone: [facility] 12-07-2024 09:32-0500 Systolic blood pressure 128 mm[Hg] Mri (I-Stat/1.5t/3t) Work Phone: [facility] 11-13-2024 07:58-0500 Body height 160 cm Lamont Brown MD Work Phone: [facility] 11-13-2024 07:58-0500 Body mass index (BMI) [Ratio] 26.45 kg/m2 Lamont Brown MD Work Phone: [facility] 11-13-2024 07:58-0500 Body weight 67.72 kg Lamont Brown MD Work Phone: [facility] 11-13-2024 07:58-0500 Diastolic blood pressure 74 mm[Hg] Lamont Brown MD Work Phone: [facility] 11-13-2024 07:58-0500 Heart rate 79 /min Lamont Brown MD Work Phone: [facility] 11-13-2024 07:58-0500 SaO2% (BldA) [Mass fraction] 99 % Lamont Brown MD Work Phone: [facility] 11-13-2024 07:58-0500 Systolic blood pressure 113 mm[Hg] Lamont Brown MD Work Phone: [facility] 02-01-2024 09:59-0500 Body height 160 cm Adrien Landers MD Work Phone: [facility] 02-01-2024 09:59-0500 Body weight 65.8 kg Adrien Landers MD Work Phone: [facility] 02-01-2024 09:59-0500 Diastolic blood pressure 81 mm[Hg] Adrien Landers MD Work Phone: [facility] 02-01-2024 09:59-0500 Heart rate 71 /min Adrien Landers MD Work Phone: [facility] 02-01-2024 09:59-0500 SaO2% (BldA) [Mass fraction] 100 % Adrien Landers MD Work Phone: [facility] 02-01-2024 09:59-0500 Systolic blood pressure 122 mm[Hg] Adrien Landers MD Work Phone: [facility] 10-18-2023 14:13-0500 Body temperature 98.1 [degF] Pedro Luis Bailey APRN.[employer] Work Phone: [facility] 10-18-2023 14:13-0500 Body weight 65.32 kg Pedro Luis Bailey APRN.[employer] Work Phone: [facility] 10-18-2023 14:13-0500 Diastolic blood pressure 72 mm[Hg] Pedro Luis Bailey APRN.[employer] Work Phone: [facility] 10-18-2023 14:13-0500 Heart rate 79 /min Pedro Luis Bailey APRN.[employer] Work Phone: [facility] 10-18-2023 14:13-0500 Respiratory rate 20 /min Pedro Luis Bailey APRN.[employer] Work Phone: [facility] 10-18-2023 14:13-0500 SaO2% (BldA) [Mass fraction] 100 % Pedro Luis Bailey APRN.[employer] Work Phone: [facility] 10-18-2023 14:13-0500 Systolic blood pressure 111 mm[Hg] Pedro Luis Bailey APRN.[employer] Work Phone: [facility] 10-18-2023 12:56-0500 Body height 159.3 cm Gautam Vazquez MD Work Phone: [facility] 10-18-2023 12:56-0500 Body temperature 98.1 [degF] Gautam Vazquez MD Work Phone: [facility] 10-18-2023 12:56-0500 Body weight 65.5 kg Gautam Vazquez MD Work Phone: [facility] 10-18-2023 12:56-0500 Diastolic blood pressure 72 mm[Hg] Gautam Vazquez MD Work Phone: [facility] 10-18-2023 12:56-0500 Heart rate 79 /min Gautam Vazquez MD Work Phone: [facility] 10-18-2023 12:56-0500 Respiratory rate 20 /min Gautam Vazquez MD Work Phone: [facility] 10-18-2023 12:56-0500 SaO2% (BldA) [Mass fraction] 100 % Gautam Vazquez MD Work Phone: [facility] 10-18-2023 12:56-0500 Systolic blood pressure 111 mm[Hg] Gautam Vazquez MD Work Phone: [facility] 09-23-2023 14:42-0400 Body weight 66.22 kg Luz Goodwin APRN.[employer] Work Phone: [facility] 09-23-2023 14:42-0400 Diastolic blood pressure 70 mm[Hg] Luz Goodwin APRN.[employer] Work Phone: [facility] 09-23-2023 14:42-0400 Heart rate 72 /min Luz Goodwin APRN.[employer] Work Phone: [facility] 09-23-2023 14:42-0400 Systolic blood pressure 126 mm[Hg] Luz Goodwin APRN.[employer] Work Phone: [facility] 09-14-2023 14:30-0400 Body weight 65.77 kg Parish Cartwright MD Work Phone: [facility] 09-14-2023 14:30-0400 Diastolic blood pressure 70 mm[Hg] Parish Cartwright MD Work Phone: [facility] 09-14-2023 14:30-0400 Heart rate 84 /min Parish Cartwright MD Work Phone: [facility] 09-14-2023 14:30-0400 Systolic blood pressure 106 mm[Hg] Parish Cartwright MD Work Phone: [facility] 09-05-2023 14:34-0400 Body height 160 cm Adrien Landers MD Work Phone: [facility] 09-05-2023 14:34-0400 Body weight 65.77 kg Adrien Landers MD Work Phone: [facility] 09-05-2023 14:34-0400 Diastolic blood pressure 68 mm[Hg] Adrien Landers MD Work Phone: [facility] 09-05-2023 14:34-0400 Heart rate 91 /min Adrien Landers MD Work Phone: [facility] 09-05-2023 14:34-0400 Systolic blood pressure 113 mm[Hg] Adrien Landers MD Work Phone: [facility] 05-20-2023 08:15-0400 Body height 160 cm Adrien Landers MD Work Phone: [facility] 05-20-2023 08:15-0400 Body weight 63.64 kg Adrien Landers MD Work Phone: [facility] 05-20-2023 08:15-0400 Diastolic blood pressure 71 mm[Hg] Adrien Landers MD Work Phone: [facility] 05-20-2023 08:15-0400 Heart rate 76 /min Adrien Landers MD Work Phone: [facility] 05-20-2023 08:15-0400 Systolic blood pressure 113 mm[Hg] Adrien Landers MD Work Phone: [facility] 05-19-2023 08:41-0400 Body weight 61.69 kg Luz Goodwin APRN.[employer] Work Phone: [facility] 05-19-2023 08:41-0400 Diastolic blood pressure 64 mm[Hg] Luz Goodwin APRN.[employer] Work Phone: [facility] 05-19-2023 08:41-0400 Heart rate 80 /min Luz Goodwin APRN.[employer] Work Phone: [facility] 05-19-2023 08:41-0400 Systolic blood pressure 106 mm[Hg] Luz Goodwin APRN.[employer] Work Phone: [facility] 02-11-2023 13:40-0400 Body height 160 cm Shelby Sankovic PA-C Work Phone: [facility] 02-11-2023 13:40-0400 Body temperature 98.6 [degF] Shelby Sankovic PA-C Work Phone: [facility] 02-11-2023 13:40-0400 Body weight 64.41 kg Shelby Sankovic PA-C Work Phone: [facility] 02-11-2023 13:40-0400 Diastolic blood pressure 70 mm[Hg] Shelby Sankovic PA-C Work Phone: [facility] 02-11-2023 13:40-0400 Heart rate 89 /min Shelby Sankovic PA-C Work Phone: [facility] 02-11-2023 13:40-0400 Respiratory rate 16 /min Shelby Sankovic PA-C Work Phone: [facility] 02-11-2023 13:40-0400 SaO2% (BldA) [Mass fraction] 98 % Shelby Sankovic PA-C Work Phone: [facility] 02-11-2023 13:40-0400 Systolic blood pressure 111 mm[Hg] Shelby Garcia PA-C Work Phone: [facility] 01-27-2023 13:32-0500 Body height 160 cm Joshua Shaffer MD Work Phone: [facility] 01-27-2023 13:32-0500 Body temperature 97.2 [degF] Joshua Shaffer MD Work Phone: [facility] 01-27-2023 13:32-0500 Body weight 65.32 kg Joshua Shaffer MD Work Phone: [facility] 01-27-2023 13:32-0500 Diastolic blood pressure 71 mm[Hg] Joshua Shaffer MD Work Phone: [facility] 01-27-2023 13:32-0500 Heart rate 87 /min Joshua Shaffer MD Work Phone: [facility] 01-27-2023 13:32-0500 Respiratory rate 17 /min Joshua Shaffer MD Work Phone: [facility] 01-27-2023 13:32-0500 SaO2% (BldA) [Mass fraction] 98 % Joshua Shaffer MD Work Phone: [facility] 01-27-2023 13:32-0500 Systolic blood pressure 111 mm[Hg] Joshua Shaffer MD Work Phone: [facility] 01-19-2023 09:06-0500 Body weight 64.41 kg Franchesca Zuniga MD Work Phone: [facility] 01-19-2023 09:06-0500 Diastolic blood pressure 68 mm[Hg] Franchesca Zuniga MD Work Phone: [facility] 01-19-2023 09:06-0500 Heart rate 66 /min Franchesca Zuniga MD Work Phone: [facility] 01-19-2023 09:06-0500 Systolic blood pressure 110 mm[Hg] Franchesca Zuniga MD Work Phone: [facility] 12-10-2022 10:15-0500 Body height 160 cm Roro Cain RADIOLOGY SPECIALIST.[employer] Work Phone: [facility] 12-10-2022 10:15-0500 Body temperature 98.01 [degF] Roro Cain RADIOLOGY SPECIALIST.[employer] Work Phone: [facility] 12-10-2022 10:15-0500 Body weight 65.77 kg Roro Cain RADIOLOGY SPECIALIST.[employer] Work Phone: [facility] 12-10-2022 10:15-0500 Diastolic blood pressure 68 mm[Hg] Roro Cain RADIOLOGY SPECIALIST.[employer] Work Phone: [facility] 12-10-2022 10:15-0500 Heart rate 98 /min Roro Cain RADIOLOGY SPECIALIST.SHELL MOLD BONDER Work Phone: [facility] 12-10-2022 10:15-0500 SaO2% (BldA) [Mass fraction] 98 % Roro Cain RADIOLOGY SPECIALIST.SHELL MOLD BONDER Work Phone: [facility] 12-10-2022 10:15-0500 Systolic blood pressure 137 mm[Hg] Roro Cain RADIOLOGY SPECIALIST.SHELL MOLD BONDER Work Phone: [facility] 12-03-2022 10:00-0500 Diastolic blood pressure 67 mm[Hg] Sheldon Abreu MD Work Phone: [facility] 12-03-2022 10:00-0500 Heart rate 70 /min Sheldon Abreu MD Work Phone: [facility] 12-03-2022 10:00-0500 SaO2% (BldA) [Mass fraction] 99 % Sheldon Abreu MD Work Phone: [facility] 12-03-2022 10:00-0500 Systolic blood pressure 101 mm[Hg] Sheldon Abreu MD Work Phone: [facility] 12-03-2022 09:49-0500 Respiratory rate 16 /min Sheldon Abreu MD Work Phone: [facility] 12-03-2022 08:14-0500 Body height 160 cm Sheldon Abreu MD Work Phone: [facility] 12-03-2022 08:14-0500 Body temperature 97.2 [degF] Sheldon Abreu MD Work Phone: [facility] 12-03-2022 08:14-0500 Body weight 63.5 kg Sheldon Abreu MD Work Phone: [facility] 08-13-2022 18:45-0400 Diastolic blood pressure 68 mm[Hg] Mri (I-Stat/1.5t/3t) Work Phone: [facility] 08-13-2022 18:45-0400 Heart rate 80 /min Mri (I-Stat/1.5t/3t) Work Phone: [facility] 08-13-2022 18:45-0400 Respiratory rate 20 /min Mri (I-Stat/1.5t/3t) Work Phone: [facility] 08-13-2022 18:45-0400 SaO2% (BldA) [Mass fraction] 99 % Mri (I-Stat/1.5t/3t) Work Phone: [facility] 08-13-2022 18:45-0400 Systolic blood pressure 117 mm[Hg] Mri (I-Stat/1.5t/3t) Work Phone: [facility] 07-05-2022 07:48-0400 Body height 160 cm Cuco Gonzalez MD Work Phone: [facility] 07-05-2022 07:48-0400 Body weight 66.32 kg Cuco Gonzalez MD Work Phone: [facility] 07-05-2022 07:48-0400 Diastolic blood pressure 68 mm[Hg] Cuco Gonzalez MD Work Phone: [facility] 07-05-2022 07:48-0400 Heart rate 80 /min Cuco Gonzalez MD Work Phone: [facility] 07-05-2022 07:48-0400 SaO2% (BldA) [Mass fraction] 99 % Cuco Gonzalez MD Work Phone: [facility] 07-05-2022 07:48-0400 Systolic blood pressure 112 mm[Hg] Cuco Gonzalez MD Work Phone: [facility] Encounters Encounter Date Encounter Type Care Provider Facility Start: 06-28-2025 End: 06-28-2025 ambulatory SAI ARMSTRONGShelley Facility:[facility] Start: 06-28-2025 End: 06-28-2025 Patient encounter procedure Sai Hobbsmaxshelley OD Work Phone: Ophthalmology Comment on above: Ankylosing spondylit is, unspecified site of spine (HCC) (Primary Dx); Crohn's disease with complication, unspecified gastrointestinal tract location (HCC); Regular astigmatism of both eyes Start: 05-10-2025 End: 05-10-2025 ambulatory Brenda M Kpwendy Facility:[facility] Start: 04-04-2025 End: 04-04-2025 Telemedicine consultation with patient Pedro Stevenjulio LAWSON Work Phone: Gastroenterology Start: 04-04-2025 End: 04-04-2025 ambulatory Pedro Stevenjulio LAWSON Work Phone: Gastroenterology Comment on above: Crohn's disease of s mall and large intestines with complication (HCC) (Primary Dx); Tobacco use; Vitamin D deficiency; Ankylosing spondylitis of lumbar region (HCC); Crohn's disease of large intestine with other complication (HCC) Start: 12-27-2024 End: 12-27-2024 ambulatory NAVEED STAPLETON Facility:[facility] Start: 12-27-2024 End: 12-27-2024 Subsequent hospital visit by physician Shiva Wayne MD Work Phone: Gastroenterology Comment on above: Crohn's disease of b oth small and large intestine with other complication (HCC) [K50.818] Start: 12-25-2024 End: 12-25-2024 Telephone encounter Lamont Brown MD Work Phone: Gastroenterology Comment on above: Medication Problem ( Clarification - Rinvoq 45 mg tablets ) Start: 12-17-2024 End: 12-17-[address] Work Phone: Gastroenterology Comment on above: Crohn's disease of s mall and large intestines with complication (HCC) (Primary Dx) Start: 12-17-2024 End: 12-17-2024 Telemedicine consultation with patient Enmanuel Trudy CAMACHO Work Phone: Gastroenterology Start: 12-07-2024 End: 12-07-2024 Refill Lamont Brown MD Work Phone: [facility] Comment on above: Refill Request Crohn's disease of b oth small and large intestine with other complication (HCC) [K50.818] Crohn's disease of small and large intestines with complication (HCC) [K50.819] Start: 12-06-2024 End: 12-06-2024 ambulatory [facility] Comment on above: Rinvoq insurance michelet roval- Action needed Start: 12-06-2024 End: 12-06-2024 E-mail encounter from caregiver [facility] Provider [facility] Start: 11-29-2024 End: 11-29-2024 ambulatory Eren Sandoval [facility] Start: 11-29-2024 End: 11-29-2024 Patient encounter procedure Eren [facility] Comment on above: SPP Inflammatory Con ditions - Treatment Referral (Rinvoq); Insurance Authorization (PA submission pending) Start: 11-27-2024 End: 11-27-2024 Telephone encounter Lamont Brown MD Work Phone: Gastroenterology Comment on above: Orders (Starting Rin voq) Start: 11-15-2024 End: 11-15-2024 Telemedicine consultation with patient Enmanuel Porter RD Work Phone: Gastroenterology Start: 11-15-2024 End: 11-16-[address] Work Phone: Gastroenterology Comment on above: Crohn's disease of b oth small and large intestine with other complication (HCC); Nausea; Fatigue, unspecified type; Abdominal bloating Humira Start: 11-15-2024 End: 11-23-2024 E-mail encounter from caregiver Lamont Brown MD Work Phone: Gastroenterology Start: 11-15-2024 End: 11-23-2024 Nutrition therapy [facility] Provider Gastroenterology Comment on above: Nutrition Notes Start: 11-13-2024 End: 11-14-2024 Telephone encounter Lamont Brown MD Work Phone: Gastroenterology Comment on above: Medication Problem ( Switch pharmacy to [facility] per pt request) Patient Question Consult (GI Psych) Start: 11-13-2024 End: 11-13-2024 ambulatory ILIA ELIZABETH Facility:[facility] Start: 11-13-2024 End: 11-13-2024 Patient encounter procedure Lamont Brown MD Work Phone: Gastroenterology Comment on above: Crohn's disease of b oth small and large intestine with other complication (HCC) (Primary Dx); Nausea; Fatigue, unspecified type; Crohn's disease of small and large intestines with complication (HCC); Abdominal bloating; Small intestinal bacterial overgrowth (SIBO) Start: 06-27-2024 End: 06-27-2024 Patient encounter procedure Sai Corbin OD Work Phone: Ophthalmology Comment on above: Ankylosing spondylit is, unspecified site of spine (HCC) (Primary Dx); Crohn's disease with complication, unspecified gastrointestinal tract location (HCC); Regular astigmatism of both eyes Start: 03-05-2024 Telephone encounter Lamont joyner MD Work Phone: Gastroenterology Comment on above: Medication Question Start: 03-03-2024 Refill Mayra HAND RN.SHELL MOLD BONDER Work Phone: Gynecology Comment on above: Refill Request Start: 02-01-2024 End: 02-01-2024 Patient encounter procedure Adrien Landers MD Work Phone: Gynecology Comment on above: Post-operative state (Primary Dx) Start: 01-17-2024 ambulatory [facility] Provider [facility] Comment on above: post op on 01/31 Start: 01-17-2024 E-mail encounter aishwarya vargas caregiver [facility] Provider [facility] Start: 01-06-2024 End: 01-06-2024 ambulatory Mayra Ibarra RADIOLOGY SPECIALIST.SHELL MOLD BONDER Work Phone: Gynecology Comment on above: Post-operative state (Primary Dx); Adenomyosis; Endometriosis determined by laparoscopy Start: 01-06-2024 End: 01-06-2024 Telemedicine consultation with patient Mayra Ibarra RADIOLOGY SPECIALIST.SHELL MOLD BONDER Work Phone: [facility] Start: 01-04-2024 Refill Pedro Luis Bailey APR N.SHELL MOLD BONDER Work Phone: Pulmonary Medicine Comment on above: Med Change Request Start: 12-28-2023 Documentation procedure [facility] Provider Gynecology Comment on above: Document image uploa d Start: 12-28-2023 E-mail encounter aishwarya vargas caregiver [facility] Provider [facility] Start: 12-09-2023 End: 12-10-2023 [facility] Start: 12-09-2023 Encounter for other preprocedural examination [facility] Start: 11-14-2023 Refill Pedro Luis Bailey APR N.SHELL MOLD BONDER Work Phone: Pulmonary Medicine Comment on above: Med Change Request Start: 10-18-2023 End: 10-18-2023 Office outpatient new 30 minutes Pedro Luis Bailey RADIOLOGY SPECIALIST.SHELL MOLD BONDER Work Phone: Pulmonary Medicine Comment on above: Cigarette nicotine d ependence without complication (Primary Dx) Start: 10-18-2023 End: 10-18-2023 ambulatory Gautam Vazquez MD Work Phone: Hematology/Oncology Comment on above: Antiphospholipid syn drome (HCC); Hypercoagulable state (HCC) Start: 10-18-2023 End: 10-18-2023 Patient encounter procedure Gautam Vazquez MD Work Phone: [facility] Start: 09-23-2023 End: 09-23-2023 Patient encounter procedure Luz Goodwin RADIOLOGY SPECIALIST.SHELL MOLD BONDER Work Phone: Rheumatology Comment on above: 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 Start: 09-20-2023 Telephone encounter Shashank Ruelas Gastroenterology Comment on above: Education Of Patient /family (PREP QUESTION, PREP NEEDED) Patient Update; Estefany ent Question Start: 09-19-2023 Refill Parish camara MD Work Phone: Vascular Medicine [place] Comment on above: Med Change Request Start: 09-16-2023 Telephone encounter Joanie del rio [facility] Other Phone: [facility] Comment on above: Anticoagulation Tele phone Fu (Patient Update) Start: 09-15-2023 ambulatory Joshua ruelas MD Work Phone: Colorectal Surgery Comment on above: Rare Medical Diagnos is Start: 09-14-2023 End: 09-14-2023 Orders Only Chelsea Carvalho APRN.SHELL MOLD BONDER Work Phone: Gynecology Comment on above: Pre-op testing (Prim oswald Dx) Antiphospholipid syn drome (HCC) (Primary Dx); Hypercoagulable state (HCC) Start: 09-14-2023 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 Francisca Carvalho APRN.SHELL MOLD BONDER Work Phone: [facility] Work Phone: Start: 09-05-2023 End: 09-05-2023 Patient encounter procedure Adrien Landers MD Work Phone: Obstetrics/Gynecology Comment on above: Adenomyosis; Dysmenorrhea; Abnormal uterine bleeding Start: 07-20-2023 ambulatory Adrien Landers MD Work Phone: Gynecology Comment on above: MRI of Pelvis Start: 06-16-2023 Telephone encounter Ankita [place] RN Gastroenterology Comment on above: Insurance Authorizat ion (Humira/) Start: 06-06-2023 Orders Only Franchesca alamo MD Work Phone: Rheumatology Comment on above: Abnormal coagulation profile (Primary Dx) Start: 05-20-2023 End: 05-20-2023 Patient encounter procedure Adrien Landers MD Work Phone: Gynecology Comment on above: Endometriosis; Pelvic pain in female Start: 05-19-2023 End: 05-19-2023 Patient encounter procedure Luz Goodwin APRN.CNP Work Phone: Rheumatology Comment on above: 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 Start: 05-16-2023 E-mail encounter aishwarya vargas caregiver [facility] Pharmacist Work Phone: [facility] Start: 05-13-2023 ambulatory [facility]ren Sandoval [facility] Start: 05-13-2023 Patient encounter procedure Eren Sandoval [facility] Comment on above: SPP Inflammatory Con ditions - Treatment Referral (Humira); Insurance Authorization (PA submission pending) Start: 05-11-2023 Telephone encounter Ankita [facility] RN Gastroenterology Comment on above: Orders (Humira Induc tion & Maintenance) Start: 04-11-2023 E-mail encounter aishwarya vargas caregiver [facility] Provider [facility] Start: 04-11-2023 Patient encounter procedure [facility] Provider [facility] Comment on above: MIGS consult Start: 03-30-2023 E-mail encounter aishwarya vargas caregiver Pedro Israel PA-C Work Phone: [facility] Start: 03-30-2023 Follow-up encounter Pedro Kellie mayfield PA-C Work Phone: Gastroenterology Comment on above: follow up on todays visit Start: 03-29-2023 End: 03-29-2023 ambulatory Pedro Robertsonimtiaz PA-C Work Phone: Gastroenterology Comment on above: Crohn's disease of s mall and large intestines with complication (HCC) (Primary Dx) Start: 03-29-2023 End: 03-29-2023 Telemedicine consultation with patient Pedro Stevenw PA-C Work Phone: [facility] Start: 03-24-2023 End: 03-24-2023 ambulatory Joshua Shaffer MD Work Phone: Colorectal Surgery Comment on above: Crohn's disease of s mall and large intestines with complication (HCC) (Primary Dx) Start: 03-24-2023 End: 03-24-2023 Telemedicine consultation with patient Joshua Shaffer MD Work Phone: [facility] Start: 03-07-2023 Telephone encounter Cara Radforde R N Colorectal Surgery Comment on above: Blueprint Reader - O ther; Patient Question Start: 03-04-2023 End: 03-05-[address] BRENDA LANDON . Facility: Start: 03-02-2023 Telephone encounter Joshua snyder MD Work Phone: Colorectal Surgery Comment on above: Results Start: 03-01-2023 Telephone encounter Cara Cruise R N Colorectal Surgery Comment on above: Returning Patient's Call; Blueprint Reader - Other; Patient Question Start: 02-28-2023 ambulatory Joshua ruelsa MD Work Phone: Colorectal Surgery Comment on above: Right Lower abdomina l pain Start: 02-27-2023 Orders Only Franchesca alamo MD Work Phone: Rheumatology Comment on above: Abnormal blood coagu lation profile (Primary Dx) Start: 02-23-2023 Telephone encounter Landy Souza RN NOC Comment on above: Follow Up Phone Call (All Clear) Start: 02-14-2023 ambulatory Roro HAND RN.SHELL MOLD BONDER Work Phone: Gastroenterology Comment on above: Vitamin D Start: 02-14-2023 E-mail encounter fro m caregiver Roro Cain APRN.SHELL MOLD BONDER Work Phone: [facility] Start: 02-11-2023 End: 02-11-2023 ambulatory Nurse Pt Ed Cors Work Phone: Colorectal Surgery Comment on above: Patient Education Start: 02-11-2023 End: 02-11-2023 Patient encounter procedure Shelby Garcia PA-C Work Phone: Colorectal Surgery Comment on above: Preoperative examina tion (Primary Dx) Start: 02-11-2023 End: 02-11-2023 Preprocedural examination done Shelby Garcia PA-C Work Phone: Colorectal Surgery Start: 02-06-2023 Admission to [facility] Joshua Shaffer MD Work Phone: Colorectal Surgery Comment on above: Surgery Date Start: 02-06-2023 ambulatory Joshua ruelas MD Work Phone: [facility] Start: 02-01-2023 Telephone encounter Cara Ruelas Colorectal Surgery Comment on above: Blueprint Reader - O ther; Patient Update Start: 01-28-2023 ambulatory Joshua ruelas MD Work Phone: Colorectal Surgery Start: 01-27-2023 End: 01-27-2023 Patient encounter procedure Joshua Shaffer MD Work Phone: Colorectal Surgery Comment on above: Crohn's disease of s mall and large intestines with complication (HCC) Start: 01-24-2023 Orders Only Venice Bonilla [facility] Work Phone: Gastroenterology Start: 01-20-2023 Telephone encounter Venice chao [facility] Work Phone: Gastroenterology Comment on above: Medication Follow-up Start: 01-19-2023 End: 01-19-2023 Subsequent hospital visit by physician Jeet Moreno 1 Work Phone: Radiology Comment on above: Bilateral sacroiliit is (HCC) [M46.1] Start: 01-19-2023 End: 01-19-2023 Patient encounter procedure [...] End: 12-31-2022 ambulatory Venice Bonilla [facility] Work Phone: Gastroenterology Comment on above: Crohn's disease of s mall and large intestines with complication (HCC) (Primary Dx) Start: 12-31-2022 End: 12-31-2022 Telemedicine consultation with patient Venice Bonilla [facility] Work Phone: 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 Start: 12-03-2022 End: 12-03-2022 Subsequent hospital visit by physician Sheldon Abreu MD Work Phone: Gastroenterology Comment on above: Crohn's disease of b oth small and large intestine without complication (HCC) [K50.80] Start: 11-25-2022 Telephone encounter Ana Paula ruelas undertaker assistant Comment on above: Appointment Start: 10-27-2022 Telephone [...] End: 08-13-2022 Subsequent hospital visit by physician [place] 1 Radio Main Q Work Phone: MRI Q Comment on above: Crohn's disease of b oth small and large intestine without complication (HCC) [K50.80] Start: 08-13-2022 ambulatory Kelley Mnechaca RN MRI Q Comment on above: Patient Education Start: 08-13-2022 Chart abstracting [facility] Start: 07-05-2022 End: 07-05-2022 Patient encounter procedure Cuco Gonzalez MD Work Phone: Gastroenterology Comment on above: Crohn's disease of b oth small and large intestine without complication (HCC) (Primary Dx); Crohn's disease of small and large intestines with complication (HCC); Bloating Start: 07-01-2022 Telephone encounter Soledad Bhatia RNundertaker assistant Comment on above: Request Outside [facility] Records Start: 10-25-2018 End: 10-25-2018 Patient encounter procedure [facility] Rhe[facility] Comment on above: Appointment Procedures Date Procedure Procedure Detail Performing Clinician Start: 12-27-2024 Colonoscopy flx dx w/collj spec when pfrmd Ilia Elizabeth PA-C Work Phone: Start: 12-27-2024 Esophagogastroduodenoscopy transoral diagnostic Ilia Elizabeth PA-C Work Phone: Start: 12-07-2024 MRI ABD ENTEROG WO/W IVCON Ilia santoro PA-C Work Phone: Start: 12-07-2024 Mri pelvis w/o & w/contrast material Ilia Elizabeth PA-C Work Phone: Start: 01-19-2023 Radiologic examination sacroiliac jnts <3 views Franchesca Zuniga MD Work Phone: Start: 12-24-2022 Dxa bone density study 1/> sites axial skel Roro Cain APRN.SHELL MOLD BONDER Work Phone: Start: 12-03-2022 Colonoscopy flx dx w/collj spec when pfrmd Jennifer Flores MD Work Phone: Start: 09-24-2022 Breath hydrogen/methane test Jennifer alvarenga MD Work Phone: Start: 08-13-2022 MRI ABD ENTEROG WO/W IVCON Jennifer camara MD Work Phone: Start: 08-13-2022 Mri pelvis w/o & w/contrast material Jennifer Flores MD Work Phone: Plan of Treatment Date Care Activity Detail Author Start: 2043 HEPATITIS B (1 of 3 - Risk 3-dose series) HEPATITIS B (1 of 3 - Risk 3-dose series) [facility] Start: 03-21-2043 Hepatitis B Vaccine (1 of 3 - Risk 3-dose series) Hepatitis B Vaccine (1 of 3 - Risk 3-dose series) [facility] Start: 07-11-2026 End: 07-11-2026 Patient encounter procedure 07/11/2026 9:00 AM EDT Office Visit [facility] Op[facility] [address] [place] [address] Sai Corbin, OD [address] [place] [address] Diagnostics[facility] [address] [address] 1 year Ophthalmology Comment on above: 1 year Start: 07-29-2025 Influenza vaccination [facility] Start: 06-28-2025 End: 06-28-2025 Patient encounter procedure 06/28/2025 10:30 AM EDT Office Visit [facility] Ophthalmology [address] [place] [address] Sai Corbin, OD [address] [place] [address] Return in about 1 year (around 06/27/2025) for routine exam. Ophthalmology Comment on above: Return in about 1 year (around 06/27/2025 ) for routine exam. Start: 04-04-2025 End: 07-04-2025 25-hydroxyvitamin D3 [Mass/volume] in Serum or Plasma VITAMIN D 25 HYDROXY Lab Routine Crohn's disease of small and large intestines with complication (HCC) Expected: 04/04/2025, Expires: 07/04/2025 [facility] Comment on above: Expected: 04/04/2025, Expires: Start: 04-04-2025 End: 07-04-2025 BLOOD TB SCREEN BLOOD TB SCREEN Lab Routine Crohn's disease of small and large intestines with complication (HCC) Expected: 04/04/2025, Expires: 07/04/2025 [facility] Comment on above: Expected: 04/04/2025, Expires: Start: 04-04-2025 End: 07-04-2025 C reactive protein [Mass/volume] in Serum or Plasma C-REACTIVE PROTEIN Lab Routine Crohn's disease of small and large intestines with complication (HCC) Expected: 04/04/2025, Expires: 07/04/2025 [facility] Comment on above: Expected: 04/04/2025, Expires: Start: 04-04-2025 End: 07-04-2025 CBC W Auto Differential panel - Blood COMPLETE BLOOD COUNT AND DIFFERENTIAL Lab Routine Crohn's disease of small and large intestines with complication (HCC) Expected: 04/04/2025, Expires: 07/04/2025 [facility] Work Phone: Comment on above: Expected: 04/04/2025, Expires: Start: 04-04-2025 End: 07-04-2025 Cobalamin (Vitamin B12) [Mass/volume] in Serum or Plasma VITAMIN B12 Lab Routine Crohn's disease of small and large intestines with complication (HCC) Expected: 04/04/2025, Expires: 07/04/2025 [facility] Comment on above: Expected: 04/04/2025, Expires: Start: 04-04-2025 End: 07-04-2025 Comprehensive metabolic 2000 panel - Serum or Plasma COMPREHENSIVE METABOLIC PANEL Lab Routine Crohn's disease of small and large intestines with complication (HCC) Expected: 04/04/2025, Expires: 07/04/2025 [facility] Comment on above: Expected: 04/04/2025, Expires: Start: 04-04-2025 End: 07-04-2025 Ferritin [Mass/volume] in Serum or Plasma FERRITIN Lab Routine Crohn's disease of small and large intestines with complication (HCC) Expected: 04/04/2025, Expires: 07/04/2025 [facility] Comment on above: Expected: 04/04/2025, Expires: Start: 04-04-2025 End: 07-04-2025 Iron and Iron binding capacity panel - Serum or Plasma IRON AND TIBC Lab Routine Crohn's disease of small and large intestines with complication (HCC) Expected: 04/04/2025, Expires: 07/04/2025 [facility] Comment on above: Expected: 04/04/2025, Expires: Start: 04-04-2025 End: 04-04-2025 Patient encounter procedure 04/04/2025 2:00 PM EDT Appointment Gastroenterology [address] [address] Crohn's disease of both small and large intestine with other complication (HCC) ... Gastroenterology Comment on above: Crohn's disease of both small and large intestine with other complication (HCC) ... Start: 02-08-2025 End: 02-08-2025 Follow-up encounter 02/08/2025 11:00 AM EDT [facility] Gastroenterology [address] [address] Enmanuel Porter, JANICE [address] [place] [id number] follow up with CD Gastroenterology Comment on above: follow up with CD Start: 12-27-2024 End: 12-27-2024 Patient encounter procedure 12/27/2024 8:00 AM EST Appointment Gastroenterology [address] [address] Lamont Brown MD [address] [place] [address] Crohn's disease of both small and large intestine with other complication (HCC) ... Gastroenterology Comment on above: Crohn's disease of both small and large intestine with other complication (HCC) ... Start: 12-17-2024 End: 12-17-2024 Follow-up encounter 12/17/2024 3:15 PM EST [facility] Gastroenterology [address] [address] Enmanuel Porter, JANICE [address] [place] [id number] follow up CD Gastroenterology Comment on above: follow up CD Start: 12-07-2024 Subsequent hospital visit by physician 12/07/2024 9:00 AM EST Hospital Encounter MRI Q [address] [address] Crohn's disease of both small and large intestine with other complication (HCC) [K50.818] Crohn's disease of small and large intestines with complication (HCC) [K50.819] MRI Q Comment on above: Crohn's disease of both small and large intestine with other complication (HCC) [K50.818] Crohn's disease of small and large intestines with complication (HCC) [K50.819] Start: 12-07-2024 End: 12-07-2024 Patient encounter procedure MRI Q Comment on above: Crohn's disease of both small and large intestine with other complication (HCC) [K50.818] Start: 11-23-2024 End: 11-23-2024 Nursing evaluation of patient and report 11/23/2024 10:30 AM EST Nurse Visit [facility] Gastroenterology [facility] [address] [place] [address] [facility], Nurse [facility] [address] [place] [address] [address] [place], [place] [id number] Nausea [R11.0] [facility] Gastroenterology [facility] Comment on above: Nausea [R11.0] Start: 11-19-2024 End: 11-19-2024 Patient encounter procedure 11/19/2024 9:00 AM EST Office Visit Psychology [address] [place] [address] Radha Scales, PhD [address] [place] [address] Ref by Kevin / Crohn's disease of both small and large intestine with other complication (HCC) [K50.818] Psychology Comment on above: Ref by Kevin / Crohn's disease of both s mall and large intestine with other complication (HCC) [K50.818] Start: 11-15-2024 End: 11-15-2024 ambulatory 11/15/2024 3:15 PM EST [facility] Gastroenterology [address] [place], [place] [id number] Enmanuel Porter, RD [address] [place], [place] [id number] Crohn's disease of both small and large intestine with other complication (HCC) [K50.818] Gastroenterology Comment on above: Crohn's disease of both small and large intestine with other complication (HCC) [K50.818] Start: 11-13-2024 End: 02-12-2025 ADALIMUMAB, SERUM [facility] Comment on above: Expected: 11/13/2024, Expires: 5 Start: 07-29-2024 Influenza vaccination [facility] Start: 06-27-2024 End: 06-27-2024 Patient encounter procedure 06/27/2024 8:00 AM EDT Office Visit [facility] Ophthalmology [address] [facility] [place] [address] Sai Corbin, MARCEL [address] [place] [address] annual routine exam Ophthalmology Comment on above: annual routine exam Start: 11-28-2023 Behavioral Health Screening Behavioral Health Screening [facility] Start: 11-28-2023 Depression Assessment Depression Assessment [facility] Start: 10-10-2023 End: 01-09-2024 Centromere Ab [Presence] in Serum by Immunofluorescence ANTI-CENTROMERE AB Lab Routine Raynaud's phenomenon without gangrene Expected: 10/10/2023, Expires: 01/09/2024 [facility] Work Phone: Comment on above: Expected: 10/10/2023, Expires: 4 Start: 09-14-2023 End: 09-14-2024 CBC W Auto Differential panel - Blood CBC + DIFF Lab Routine Pre-op testing Expected: 09/14/2023, Expires: 09/14/2024 [facility] Work Phone: Comment on above: Expected: 09/14/2023, Expires: 4 Start: 09-14-2023 End: 12-14-2023 PT panel - Platelet poor plasma by Coagulation assay PROTHROMBIN TIME/PT Lab Routine Antiphospholipid syndrome (HCC) Expected: 09/14/2023, Expires: 12/14/2023 [facility] Work Phone: Comment on above: Expected: 09/14/2023, Expires: 4 Start: 07-29-2023 Influenza vaccination [facility] Start: 05-14-2023 End: 07-14-[address]UPUS ANT[address] Lab Routine Abnormal blood coagulation profile Expected: 05/14/2023, Expires: 07/14/2023 [facility] Work Phone: Comment on above: Expected: 05/14/2023, Expires: 3 Start: 2023 Mammography [facility] Start: 2023 Screening for malignant neoplasm of breast Mammogram Screening [facility] Start: 02-11-2023 End: 03-14-2023 CBC panel - Blood by Automated count CBC Lab Routine Crohn's disease of small and large intestines with complication (HCC) Expected: 02/11/2023 (Approximate), Expires: 03/14/2023 [facility] Work Phone: Comment on above: Expected: 02/11/2023 (Approximate), Expi res: 03/14/2023 Start: 02-11-2023 End: 03-14-2023 Comprehensive metabolic 2000 panel - Serum or Plasma COMP METABOLIC PANEL Lab Routine Crohn's disease of small and large intestines with complication (HCC) Expected: 02/11/2023, Expires: 03/14/2023 [facility] Work Phone: Comment on above: Expected: 02/11/2023, Expires: 3 Start: 02-11-2023 End: 03-14-2023 CONFIRM BLOOD TYPE CONFIRM BLOOD TYPE Blood Bank Routine Crohn's disease of small and large intestines with complication (HCC) Expected: 02/11/2023, Expires: 03/14/2023 [facility] Work Phone: Comment on above: Expected: 02/11/2023, Expires: 3 Start: 02-11-2023 End: 03-14-2023 TYPE AND SCREEN,30 DAY TYPE AND SCREEN,30 DAY Blood Bank Routine Crohn's disease of small and large intestines with complication (HCC) Expected: 02/11/2023, Expires: 03/14/2023 [facility] Work Phone: Comment on above: Expected: 02/11/2023, Expires: 3 Start: 02-09-2023 End: 04-11-2023 25-hydroxyvitamin D3 [Mass/volume] in Serum or Plasma VITAMIN D 25 HYDROXY Lab Routine SpondyloArthritis associated with inflammatory bowel disease Crohn's disease of both small and large intestine with other complication (HCC) Vitamin D deficiency Expected: 02/09/2023, Expires: 04/11/2023 [facility] Work Phone: Comment on above: Expected: 02/09/2023, Expires: 3 Start: 02-09-2023 End: 04-11-2023 LYLA BY IFA WITH REFLEX LYLA BY IFA WITH REFLEX Lab Routine SpondyloArthritis associated with inflammatory bowel disease Crohn's disease of both small and large intestine with other complication (HCC) Expected: 02/09/2023, Expires: 04/11/2023 [facility] Work Phone: Comment on above: Expected: 02/09/2023, Expires: 3 Start: 02-09-2023 End: 04-11-2023 C reactive protein [Mass/volume] in Serum or Plasma C-REACTIVE PROTEIN (CRP) Lab Routine SpondyloArthritis associated with inflammatory bowel disease Crohn's disease of both small and large intestine with other complication (HCC) Expected: 02/09/2023, Expires: 04/11/2023 [facility] Work Phone: Comment on above: Expected: 02/09/2023, Expires: 3 Start: 02-09-2023 End: 04-11-2023 Cyclic citrullinated peptide IgG Ab [Units/volume] in Serum or Plasma CCP ANTIBODY IGG Lab Routine SpondyloArthritis associated with inflammatory bowel disease Crohn's disease of both small and large intestine with other complication (HCC) Expected: 02/09/2023, Expires: 04/11/2023 [facility] Work Phone: Comment on above: Expected: 02/09/2023, Expires: 3 Start: 02-09-2023 End: 04-11-[address]UPUS ANTICO[address] Lab Routine SpondyloArthritis associated with inflammatory bowel disease Crohn's disease of both small and large intestine with other complication (HCC) Raynaud's phenomenon without gangrene Pers History of multiple miscarriages Expected: 02/09/2023, Expires: 04/11/2023 [facility] Work Phone: Comment on above: Expected: 02/09/2023, Expires: 3 Start: 02-09-2023 End: 04-11-2023 Parathyrin.intact [Mass/volume] in Serum or Plasma PTH INTACT BLD Lab Routine SpondyloArthritis associated with inflammatory bowel disease Crohn's disease of both small and large intestine with other complication (HCC) Vitamin D deficiency Expected: 02/09/2023, Expires: 04/11/2023 [facility] Work Phone: Comment on above: Expected: 02/09/2023, Expires: 3 Start: 02-09-2023 End: 04-11-2023 Rheumatoid factor [Units/volume] in Serum or Plasma RHEUMATOID FACTOR BL Lab Routine SpondyloArthritis associated with inflammatory bowel disease Crohn's disease of both small and large intestine with other complication (HCC) Expected: 02/09/2023, Expires: 04/11/2023 [facility] Work Phone: Comment on above: Expected: 02/09/2023, Expires: 3 Start: 12-10-2022 End: 02-09-2023 25-hydroxyvitamin D3 [Mass/volume] in Serum or Plasma [facility] Work Phone: Comment on above: Expected: 12/10/2022, Expires: 3 Start: 12-10-2022 End: 02-09-2023 BLOOD TB SCREEN [facility] Work Phone: Comment on above: Expected: 12/10/2022, Expires: 3 Start: 12-10-2022 End: 02-09-2023 Chronic hepatitis differentiation between hepatitis B and C virus panel - Serum or Plasma [facility] Work Phone: Comment on above: Expected: 12/10/2022, Expires: 3 Start: 12-10-2022 End: 02-09-2023 Cobalamin (Vitamin B12) [Mass/volume] in Serum or Plasma [facility] Work Phone: Comment on above: Expected: 12/10/2022, Expires: 3 Start: 12-10-2022 End: 02-09-2023 Comprehensive metabolic 2000 panel - Serum or Plasma [facility] Work Phone: Comment on above: Expected: 12/10/2022, Expires: 3 Start: 12-10-2022 End: 02-09-2023 Ferritin [Mass/volume] in Serum or Plasma [facility] Work Phone: Comment on above: Expected: 12/10/2022, Expires: 3 Start: 12-10-2022 End: 02-09-2023 Hepatitis A virus IgM Ab [Presence] in Serum [facility] Work Phone: Comment on above: Expected: 12/10/2022, Expires: 3 Start: 12-10-2022 End: 02-09-2023 Iron and Iron binding capacity panel - Serum or Plasma [facility] Work Phone: Comment on above: Expected: 12/10/2022, Expires: 3 Start: 11-28-2022 DEPRESSION ASSESSMENT DEPRESSION ASSESSMENT [facility] Start: 07-29-2022 Influenza vaccination INFLUENZA (#1) [facility] Start: 11-28-2021 DEPRESSION ASSESSMENT DEPRESSION ASSESSMENT [facility] Start: 10-30-2018 End: 10-30-2018 Ambulatory 10/30/2018 Office Visit Rheumatology Josh Burden MD [address] [place] [phone] Division of Rheumatology Start: 07-29-2018 Influenza vaccination INFLUENZA VACCINE (#1) [facility] Work Phone: Start: 2013 HPV TESTING HPV TESTING [facility] Start: 2013 Screening for malignant neoplasm of cervix HPV Testing [facility] Start: 02-16-2004 PAP TESTING PAP TESTING [facility] Start: 02-16-2004 Screening for malignant neoplasm of cervix [facility] Start: 2002 HEPATITIS A (1 of 2 - Risk 2-dose series) HEPATITIS A (1 of 2 - Risk 2-dose series) [facility] Start: 2002 Hepatitis A Vaccine (1 of 2 - Risk 2-dose series) Hepatitis A Vaccine (1 of 2 - Risk 2-dose series) [facility] Start: 2002 Hepatitis B Vaccine (1 of 3 - 19+ 3-dose series) Hepatitis B Vaccine (1 of 3 - 19+ 3-dose series) [facility] Start: 2002 Pneumococcal vaccination Pneumococcal Vaccine (1 of 2 - PCV) [facility] Start: 2002 SHINGRIX VACCINE (1 of 2) SHINGRIX VACCINE (1 of 2) [facility] Start: 2002 Third diphtheria, tetanus and acellular pertussis (DTaP) vaccination TDAP (ADULT) [facility] Work Phone: Start: 2002 Urine microalbumin profile [facility] Start: 2001 Anxiety Screening Anxiety Screening [facility] Start: 2001 Depression Screening Depression Screening [facility] Start: 2001 HEPATITIS C SCREENING HEPATITIS C SCREENING [facility] Start: 2001 HIV SCREENING HIV SCREENING [facility] Start: 2001 HIV screening HIV Screening [facility] Start: 2001 MMR (1 of 2 - Risk 2-dose series) MMR (1 of 2 - Risk 2-dose series) [facility] Start: 2001 MMR Vaccine (1 of 2 - Risk 2-dose series) MMR Vaccine (1 of 2 - Risk 2-dose series) [facility] Start: 2001 Tetanus vaccination TETANUS [facility] Work Phone: Start: 02-16-1996 HIV screening HIV SCREENING DISCUSSION [facility] Work Phone: Start: 1995 Adult depression screening assessment DEPRESSION SCREENING [facility] Start: 1994 Screening for malignant neoplasm of cervix Cervical Cancer Screening [facility] Start: 1993 Meningococcal B Vaccine: Consider Based On Risk (1 of 4 - Increased Risk) Meningococcal B Vaccine: Consider Based On Risk (1 of 4 - Increased Risk) [facility] Start: 1993 MENINGOCOCCAL B: Consider based on risk (1 of 4 - Increased Risk Bexsero 2-dose series) MENINGOCOCCAL B: Consider based on risk (1 of 4 - Increased Risk Bexsero 2-dose series) [facility] Start: 1993 MENINGOCOCCAL B: Consider based on risk (1 of 4 - Increased Risk) MENINGOCOCCAL B: Consider based on risk (1 of 4 - Increased Risk) [facility] Start: 1989 PNEUMOCOCCAL (1 - PCV) PNEUMOCOCCAL (1 - PCV) [facility] Start: 1989 [facility] Start: 02-16-1988 COVID-19 VACCINE (#1) COVID-19 VACCINE (#1) [facility] Start: 02-16-1984 HEPATITIS A (1 of 2 - Risk 2-dose series) HEPATITIS A (1 of 2 - Risk 2-dose series) [facility] Start: 1983 COVID-19 VACCINE (#1) COVID-19 VACCINE (#1) [facility] End: 07-05-2023 BREATH TEST GLUCOSE BREATH TEST GLUCOSE Endoscopy Routine Crohn's disease of both small and large intestine without complication (HCC) Crohn's disease of small and large intestines with complication (HCC) 1 Occurrences starting 07/05/2022 until 07/05/2023 [facility] Work Phone: Comment on above: 1 Occurrences starting 07/05/2022 until 07/05/2023 BREATH TEST GLUCOSE BREATH TEST GLUCOSE Endoscopy Routine Crohn's disease of both small and large intestine without complication (HCC) Crohn's disease of small and large intestines with complication (HCC) 09/24/2022 [facility] Work Phone: End: 11-13-2025 BREATH TEST GLUCOSE BREATH TEST GLUCOSE Endoscopy Routine Nausea Abdominal bloating 1 Occurrences starting 11/13/2024 until 11/13/2025 [facility] Comment on above: 1 Occurrences starting 11/13/2024 until 11/13/2025 Calprotectin [Mass/m ass] in Stool CALPROTECTIN,FECAL Lab Routine Crohn's disease of both small and large intestine with other complication (HCC) Ordered: 11/13/2024 [facility] Work Phone: Comment on above: Ordered: 11/13/2024 Calprotectin [Mass/m ass] in Stool CALPROTECTIN,FECAL Lab Routine Crohn's disease of both small and large intestine with other complication (HCC) Ordered: 11/13/2024 [facility] Comment on above: Ordered: 11/13/2024 Calprotectin [Mass/m ass] in Stool CALPROTECTIN,FECAL Lab Routine Crohn's disease of small and large intestines with complication (HCC) Ordered: 04/04/2025 [facility] Comment on above: Ordered: 04/04/2025 End: 07-05-2023 COLONOSCOPY DIAGNOSTIC COLONOSCOPY DIAGNOSTIC Endoscopy Routine Crohn's disease of both small and large intestine without complication (HCC) Crohn's disease of small and large intestines with complication (HCC) 1 Occurrences starting 07/05/2022 until 07/05/2023 [facility] Work Phone: Comment on above: 1 Occurrences starting 07/05/2022 until 07/05/2023 End: 01-09-2024 DXA-AXIAL SKELETON DXA-AXIAL SKELETON Radiology Routine [facility] current use of systemic steroids 1 Occurrences starting 12/10/2022 until 01/09/2024 [facility] Work Phone: Comment on above: 1 Occurrences starting 12/10/2022 until 01/09/2024 End: 01-29-2024 ECG COMPLETE ECG COMPLETE ECG Routine Crohn's disease of small and large intestines with complication (HCC) 1 Occurrences starting 01/29/2023 until 01/29/2024 [facility] Work Phone: Comment on above: 1 Occurrences starting 01/29/2023 until 01/29/2024 End: 11-13-2025 EGD DIAGNOSTIC EGD DIAGNOSTIC Endoscopy Routine Crohn's disease of both small and large intestine with other complication (HCC) Nausea 1 Occurrences starting 11/13/2024 until 11/13/2025 [facility] Comment on above: 1 Occurrences starting 11/13/2024 until 11/13/2025 End: 11-13-2025 Flexible sigmoidoscopy study COLONOSCOPY DIAGNOSTIC Endoscopy Routine Crohn's disease of both small and large intestine with other complication (HCC) 1 Occurrences starting 11/13/2024 until 11/13/2025 [facility] Comment on above: 1 Occurrences starting 11/13/2024 until 11/13/2025 H&P for surgery H&P FOR SURGERY Procedures Routine Crohn's disease of small and large intestines with complication (HCC) Ordered: 01/29/2023 [facility] Work Phone: Comment on above: Ordered: 01/29/2023 End: 12-13-2025 MR Abdomen WO and W contrast IV MRI ABD ENTEROG WO/W IVCON Radiology Routine Crohn's disease of both small and large intestine with other complication (HCC) Crohn's disease of small and large intestines with complication (HCC) 1 Occurrences starting 11/13/2024 until 12/13/2025 [facility] Comment on above: 1 Occurrences starting 11/13/2024 until 12/13/2025 End: 12-13-2025 MR Pelvis WO and W contrast IV MRI PEL ENTEROG WO/W IVCON Radiology Routine Crohn's disease of both small and large intestine with other complication (HCC) Crohn's disease of small and large intestines with complication (HCC) 1 Occurrences starting 11/13/2024 until 12/13/2025 [facility] Comment on above: 1 Occurrences starting 11/13/2024 until 12/13/2025 End: 08-04-2023 MRI ABD ENTEROG WO/W IVCON MRI ABD ENTEROG WO/W IVCON Radiology Routine Crohn's disease of both small and large intestine without complication (HCC) Crohn's disease of small and large intestines with complication (HCC) 1 Occurrences starting 07/05/2022 until 08/04/2023 [facility] Work Phone: Comment on above: 1 Occurrences starting 07/05/2022 until 08/04/2023 End: 08-04-2023 Mri pelvis w/o & w/contrast material MRI PEL ENTEROG WO/W IVCON Radiology Routine Crohn's disease of both small and large intestine without complication (HCC) Crohn's disease of small and large intestines with complication (HCC) 1 Occurrences starting 07/05/2022 until 08/04/2023 [facility] Work Phone: Comment on above: 1 Occurrences starting 07/05/2022 until 08/04/2023 Mri pelvis w/o & w/contrast material MRI FEMALE PELVIS WO/W IVCON Radiology Routine Endometriosis Pelvic pain in female 1 Occurrences starting 05/20/2023 [facility] Work Phone: Comment on above: 1 Occurrences starting 05/20/2023 PT ED PATIENT INFORMATION PT ED PATIENT INFORMATION Other 01/19/2023 [facility] Work Phone: REFER FOR ADMIT INTERVIEW REFER FOR ADMIT INTERVIEW Procedures Routine Crohn's disease of small and large intestines with complication (HCC) Ordered: 01/29/2023 [facility] Work Phone: Comment on above: Ordered: 01/29/2023 SURGICAL PATHOLOGY [facility] Work Phone: Comment on above: Release Upon Ordering for 1 Occurrences starting 12/03/2022, 1 completed SURGICAL PATHOLOGY [facility] Work Phone: Comment on above: Release Upon Ordering for 1 Occurrences starting 12/27/2024, 1 completed [facility] Immunizations Immunization Date Immunization Notes Care Provider Chandrakant leyva 01-30-2023 influenza virus vacc ine, unspecified formulation Adrien Landers MD Work Phone: [facility] 08-30-2022 influenza virus vacc ine, unspecified formulation Pedro Luis Bailey APRN.CNP Work Phone: [facility] Payers Date Payer Category Payer Self-pay 2022 Private Health Insurance MMO [employer] PPO [id number] 2022 Unknown MMO [employer]MO [employer] [id number] 2022-Present [phone] [address] [place] [address] PPO [id number] 2022 Unknown [id number] 1983 Unknown [id number] 1959 Unknown [id number] Unknown [id number] Social History Date Type Detail Facility Start: 10-11-2016 End: 11-13-2024 Tobacco smoking status NHIS Former smoker [facility] Work Phone: Start: 10-21-1998 End: 10-21-2023 History of tobacco use Current smoker [facility] Work Phone: Start: 1985 Sex Assigned At Not on file O [facility] Work Phone: Tobacco smoking stat us NHIS Tobacco smoking consumption unknown [facility] Start: 06-25-2022 End: 08-13-2022 Exposure to SARS-CoV-2 (event) Not sure [facility] Start: 12-10-2022 End: 09-05-2023 Tobacco smoking status WIIS Smokes tobacco daily [facility] Start: 10-21-1998 End: 10-21-2023 History of tobacco use Cigarette Smoker [facility] Start: 12-10-2022 End: 11-13-2024 Tobacco use and exposure Smokeless tobacco non-user [facility] Start: 12-10-2022 End: 06-28-2025 Alcohol intake Current drinker of alcohol (finding) [facility] Start: 04-13-2023 End: 05-10-2023 Cigarettes smoked current (pack per day) - Reported 0.5 [facility] Start: 05-10-2023 Alcohol Comment Twice a week [facility] Start: 04-13-2023 End: 05-20-2023 Tobacco use panel [facility] Adult Depression Screening Assessment 2 [facility] History of tobacco use Passive smoker [facility] Start: 12-09-2023 Alcohol Comment 2 drinks a week [facility] Functional Status Date Assessment Result Facility 12-23-2023 Are you deaf, or do you have serious difficulty hearing No 12/23/2023 1:34 PM Milagros Barrios, TAYLA No [facility] 12-23-2023 Are you blind, or do you have serious difficulty seeing, even when wearing glasses No 12/23/2023 1:34 PM Milagros Barrios, RN No [facility] 12-23-2023 Do you have serious difficulty walking or climbing stairs No 12/23/2023 1:34 PM Milagros Barrios, RN No [facility] 12-23-2023 Do you have difficul ty dressing or bathing No 12/23/2023 1:34 PM Milagros Barrios, TALYA No [facility] 12-23-2023 Because of a physica l, mental, or emotional condition, do you have difficulty doing errands alone such as visiting a physician's office or shopping No 12/23/2023 1:34 PM Milagros Barrios, TAYLA No [facility] Mental Status Date Assessment Result Facility 12-23-2023 Because of a physica l, mental, or emotional condition, do you have serious difficulty concentrating, remembering, or making decisions No 12/23/2023 1:34 PM Milagros Barrios, TAYLA No [facility] Clinical Notes 07-01-2022 to 06-28-2025 Sai Corbin, MARCEL - 06/28/2025 11:17 AM EDTPatient InstructionsPedro Israel PA-C - 04/04/2025 1:01 PM Eleni Castro LPN - 12/27/2024 9:38 AM ESTPatient Instructions Note Date & Type Note Facility 06-28-2025 Note HNO ID: [id number] Author: SAI CORBIN OD Service: ? Author Type: THERAPEUTIC CONSULTANT Type: Progress Notes Filed: 06/28/2025 11:18 Note Text: ASSESSMENT/PLAN: 1. Ankylosing spondylitis, unspecified site of spine (HCC) - ICD9: 720.0, ICD10: M45.9 (primary diagnosis) 2. Crohn's disease with complication, unspecified gastrointestinal tract location (HCC) - ICD9: 555.9, ICD10: K50.919 - Both eyes quiet today. No signs of previous episodes of uveitis both eyes today. - educated patient on signs and symptoms of uveitis and to call with any new pain, redness or light sensitivity. 3. Regular astigmatism of both eyes - ICD9: 367.21, ICD10: H52.223 - glasses prescription given per patient request. Monitor. Sai Corbin, MARCEL I have confirmed and edited as necessary the relevant ophthalmic history, ROS, and the exam findings as obtained by others. I have seen and examined this patient. I have discussed the case and the management of this patient's care with the resident or fellow as appropriate. I also have reviewed and agree with the assessment and plan as stated above and agree with all of its relevant components. June 28, 2025 11:17 AM [facility] 06-28-2025 History of Present illness Narrative ASSESSMENT/PLAN: 1. Ankylosing spondylitis, unspecified site of spine (HCC) - ICD9: 720.0, ICD10: M45.9 (primary diagnosis) 2. Crohn's disease with complication, unspecified gastrointestinal tract location (HCC) - ICD9: 555.9, ICD10: K50.919 - Both eyes quiet today. No signs of previous episodes of uveitis both eyes today. - educated patient on signs and symptoms of uveitis and to call with any new pain, redness or light sensitivity. 3. Regular astigmatism of both eyes - ICD9: 367.21, ICD10: H52.223 - glasses prescription given per patient request. Monitor. Sai Corbin OD I have confirmed and edited as necessary the relevant ophthalmic history, ROS, and the exam findings as obtained by others. I have seen and examined this patient. I have discussed the case and the management of this patient's care with the resident or fellow as appropriate. I also have reviewed and agree with the assessment and plan as stated above and agree with all of its relevant components. June 28, 2025 11:17 AM documented in this encounter [facility] 04-04-2025 Instructions Pedro Israel PA-C - 04/04/2025 3:51 PM EDT We discussed your Crohn s disease and sacroiliitis: - You have inflammation and some narrowing at your previous surgical site, as seen on your recent colonoscopy. While the narrowing is not severe, it is concerning and could worsen without treatment. - I strongly recommend starting Rinvoq (45 mg daily for 3 months, then reducing to 15 mg daily) to manage your Crohn s disease and sacroiliitis. Rinvoq is effective for both conditions and has shown good safety data. - Common side effects include mild acne and, rarely, abdominal pain. To minimize discomfort, take Rinvoq at night before bed. - I have sent the prescription to your pharmacy. Please let me know if you encounter any issues filling it. - Continue your current diet, as it has been helping you feel better. However, diet alone is unlikely to fully control your disease. - Smoking cessation is critical to reduce your risk of complications, including cardiovascular issues and worsening inflammation. I recommend working with a smoking cessation specialist to help you quit. We discussed your recent symptoms and overall health: - You reported feeling tired and having soft stools 1-5 times daily, but no blood, mucus, urgency, or accidents. These symptoms may be related to ongoing inflammation. - You are not currently experiencing significant joint pain, bloating, or other concerning symptoms. We discussed your lab work and follow-up testing: - I ordered blood work to check for anemia, vitamin D levels, and inflammation markers (CRP and fecal calprotectin). Please complete these tests at a [facility] lab. - I recommend staying on a vitamin D supplement. If your levels are low, we can adjust the dosage. We discussed follow-up care: - I have referred you to Dr. Santy Hernandez, our pharmacist specializing in inflammatory bowel disease (IBD). She will contact you within the next week or two for a virtual visit to discuss your medication options in more detail. - Schedule a follow-up appointment with me in 3 months to assess your response to Rinvoq and review your lab results. This can be a virtual visit. - Ensure you see either me or Dr. Brown every 6 months for ongoing management of your Crohn s disease. If you experience any new or worsening symptoms, such as severe abdominal pain, blood in your stool, or significant changes in your health, please contact our office immediately. documented in this encounter [facility] 04-04-2025 Note HNO ID: [id number] Author: PEDRO ISRAEL PA-C Service: ? Author Type: Physician Asset Coordinator Type: Progress Notes Filed: 04/04/2025 15:52 Note Text: Virtual Follow Up Visit Recording using ambient Eventful software for draft documentation of the visit was discussed with the patient/authorized care support representative; all questions welcomed and answered. Patient/authorized care support representative agreed to proceed Provider Location: Non-[facility] Patient Location: Patient Home or Place of Residence ASHVIN Lucas [id number] 1985 has requested a video telemedicine for follow up of Crohn's disease. Last seen 11/13/[address] Brown. IBD History (copied and updated from my prior notes) Ms. Lucas, is a 40-year-old female with history of ankylosing spondylitis as [...] anastomosis in January [address] Shaffer. Recent scope and MRE with concern for recurrent disease was supposed to start Upa but has not started. Changes and test results since last visit: Patient is a 40-year-old female with a history of Crohn's disease, presenting for follow-up. Patient reports that she was previously recommended to start Rinvoq but did not initiate the medication due to concerns about potential side effects. Instead, she opted for dietary modifications and has been following an exclusive enteral nutrition (EEN) diet since November, resulting in a weight loss of 28 pounds. She reports feeling generally well but has noticed increased fatigue and low energy levels recently. She expresses concern about the possibility of anemia, given her history of anemia associated with Crohn's disease. She has resumed taking yfbz-coi-seowupf vitamin D3 supplements for the past two weeks, noting a slight improvement in her energy levels. Patient's current diet includes daily consumption of KeyEffx nutrition shakes, chicken, shrimp, avocado, and protein, while avoiding carbohydrates, artificial sweeteners, and preservatives. She reports that her weight is now stable at 125 pounds, down from 150 pounds, and she is trying to maintain her current weight. She denies experiencing abdominal pain, bloating, or nocturnal symptoms, and has not observed any hematochezia or mucoid stools. She reports having 1-5 bowel movements per day, with stool consistency varying from firm to soft. She denies any urgency or accidents. Patient has a history of smoking and expresses a desire to quit, acknowledging that she did not attempt to quit smoking while making dietary changes. She has previously seen a smoking cessation doctor and is open to seeking help again. She denies experiencing shortness of breath, chest pain, lightheadedness, dizziness, numbness, or tingling. Patient also has a history of ankylosing spondylitis and reports lumbar spine soreness, which she attributes to her condition. She notes that her back disease was active in October, but she feels better since starting her diet. 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 Patient is not currently on any medication for Crohn's disease and expresses a desire to avoid another colon resection. She is seeking guidance on whether her current diet is sufficient for managing her condition or if medication is necessary. Current Clinical Symptoms # of bowel movements daily: 1-5 Consistency: loose, soft Bloody bowel movements: no Urgency: no Abdominal pain: no Abdominal distention: no Nausea/vomiting: no Weight loss over last 3 months: intentional weight loss Diagnosis Crohn's Disease: Date of diagnosis (year): 2010 Phenotype Location affected: ileum Behavior: inflammatory fibrostenotic Perianal disease: no Prior Medications/Dates/Reason for Switch Surgery: Ileocolic resection with Kono S anastomosis 01/2023 Systemic steroids last year: No Enteric or rectal steroids last year: No Systemic 5-ASA: No Local 5-ASA: No Thiopurines: No Methotrexate: No Biologics: adalimumab, disease progression low levels with high level antibodies Small molecules: No Current Medications None Labs TB Status: Negative 11/2022 Hepatitis B Status: Negative 11/2022 TPMT: Unknown Vaccines if on biologic therapy (Instructed to avoid live vaccines): There is no immunization history on file for this patient. Current Outpatient Medications Medication Sig Dispense Refill upadacitinib tablet ER 24 hr 30 mg (RINVOQ) Take 1 tablet (30 mg) by mouth once daily. Swallow whole; DO NOT crush, chew, or open. 30 tablet 11 upadacitinib tablet ER 24 hr 45 mg (RINVOQ) Take 1 tablet (45 m (more content not included)... [facility] 04-04-2025 History of Present illness Narrative Virtual Follow Up Visit Recording using [employer] software for draft documentation of the visit was discussed with the patient/authorized care support representative; all questions welcomed and answered. Patient/authorized care support representative agreed to proceed Provider Location: Non[facility] Patient Location: Patient Home or Place of Residence SUBJECTIVE Jocelyne Lucas [id number] 1985 has requested a video telemedicine for follow up of Crohn's disease. Last seen 11/13/[address] Brown. IBD History (copied and updated from my prior notes) Ms. Lucas, is a 40-year-old female with history of ankylosing spondylitis as [...] anastomosis in January [address] Shaffer. Recent scope and MRE with concern for recurrent disease was supposed to start Upa but has not started. Changes and test results since last visit: Patient is a 40-year-old female with a history of Crohn's disease, presenting for follow-up. Patient reports that she was previously recommended to start Rinvoq but did not initiate the medication due to concerns about potential side effects. Instead, she opted for dietary modifications and has been following an exclusive enteral nutrition (EEN) diet since November, resulting in a weight loss of 28 pounds. She reports feeling generally well but has noticed increased fatigue and low energy levels recently. She expresses concern about the possibility of anemia, given her history of anemia associated with Crohn's disease. She has resumed taking fqer-mkl-gojarun vitamin D3 supplements for the past two weeks, noting a slight improvement in her energy levels. Patient's current diet includes daily consumption of KeyEffx nutrition shakes, chicken, shrimp, avocado, and protein, while avoiding carbohydrates, artificial sweeteners, and preservatives. She reports that her weight is now stable at 125 pounds, down from 150 pounds, and she is trying to maintain her current weight. She denies experiencing abdominal pain, bloating, or nocturnal symptoms, and has not observed any hematochezia or mucoid stools. She reports having 1-5 bowel movements per day, with stool consistency varying from firm to soft. She denies any urgency or accidents. Patient has a history of smoking and expresses a desire to quit, acknowledging that she did not attempt to quit smoking while making dietary changes. She has previously seen a smoking cessation doctor and is open to seeking help again. She denies experiencing shortness of breath, chest pain, lightheadedness, dizziness, numbness, or tingling. Patient also has a history of ankylosing spondylitis and reports lumbar spine soreness, which she attributes to her condition. She notes that her back disease was active in October, but she feels better since starting her diet. 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 Patient is not currently on any medication for Crohn's disease and expresses a desire to avoid another colon resection. She is seeking guidance on whether her current diet is sufficient for managing her condition or if medication is necessary. Current Clinical Symptoms # of bowel movements daily: 1-5 Consistency: loose, soft Bloody bowel movements: no Urgency: no Abdominal pain: no Abdominal distention: no Nausea/vomiting: no Weight loss over last 3 months: intentional weight loss Diagnosis Crohn's Disease: Date of diagnosis (year): 2010 Phenotype Location affected: ileum Behavior: inflammatory fibrostenotic Perianal disease: no Prior Medications/Dates/Reason for Switch Surgery: Ileocolic resection with Kono S anastomosis 01/2023 Systemic steroids last year: No Enteric or rectal steroids last year: No Systemic 5-ASA: No Local 5-ASA: No Thiopurines: No Methotrexate: No Biologics: adalimumab, disease progression low levels with high level antibodies Small molecules: No Current Medications None Labs TB Status: Negative 11/2022 Hepatitis B Status: Negative 11/2022 TPMT: Unknown Vaccines if on biologic therapy (Instructed to avoid live vaccines): There is no immunization history on file for this patient. Current Outpatient Medications Medication Sig Dispense Refill upadacitinib tablet ER 24 hr 30 mg (RINVOQ) Take 1 tablet (30 mg) by mouth once daily. Swallow whole; DO NOT crush, chew, or open. 30 tablet 11 upadacitinib tablet ER 24 hr 45 mg (RINVOQ) Take 1 tablet (45 mg) by mouth once daily. Swallow whole; DO NOT crush, chew, or open. 30 tablet 2 ergocalciferol 50,000 unit capsule (VITAMIN D2, DRISDOL) Take 1 capsule by mouth one time a week. 12 capsule 1 ondansetron (ZOFRAN) 4 mg tablet Take by mouth every 8 hours as needed for nausea/vomiting. glucagon (GLUCAGEN) 1 mg/mL injection Inject 1 mg intravenously one time only for 1 dose. For MRI Enterography, Inject 1 mg intravenously, as directed. Slow push at the appropriate time during MRI Scan 1 Each 0 buPROPion SR (WELLBUTRIN SR) 150 mg 12 hr tablet TAKE 1 TABLET BY MOUTH TWICE A DAY 180 tablet 1 COLLAGEN MISC nicotine (NICODERM) 7 mg/24 hr Apply 1 Patch as directed every 24 hours. 28 Patch 5 nicotine polacrilex (NICORETTE) 4 mg gum Take 1 Each by mouth every 2 hours as needed. 100 Each 5 No current facility-administered medications for this visit. ALLERGIES Allergen Reactions Morphine Other: See Comments PAST SURGICAL HISTORY Procedure Laterality Date BOWEL RESECTION HX 01/2023 RESECTION BOWEL SMALL COLONOSCOPY SCREENING 08/2023 LAP HYSTERECTOMY FOR UTERUS 250G OR LESS 12/22/2023 LAPAROSCOPIC HYSTERECTOMY TOTAL FOR UTERUS 250G OR LESS, LAPAROSCOPY WITH EXCISION OF ENDOMETRIAL LESIONS PELVIS, CYSTOSCOPY PAST SURGICAL HISTORY OF 2 C sections 2008, 2011 Review of Systems: Constitutional: (+) fatigue, (-) fever, (-) chills Cardiovascular: (-) chest pain Respiratory: (-) shortness of breath Gastrointestinal: (+) frequent bowel movements (1-5/day), (+) soft stools, (-) blood in stool, (-) mucus, (-) abdominal pain, (-) bloating, (-) urgency, (-) accidents Musculoskeletal: (+) lumbar spine pain Neurological: (-) lightheadedness, (-) dizziness, (-) numbness, (-) tingling PHYSICAL EXAMINATION General: alert and appropriate, in no distress and well-hydrated, well nourished , Head: normocephalic, no abnormality or lesion noted, Eyes: no injection,, visual acuity is grossly normal, and EOMI, Oropharynx: moist mucus membranes, no [...] recent labs: CBC: WBC (k/uL) Date Value 11/13/2024 8.00 Hematocrit (%) Date Value 11/13/2024 45.7 MCV (fL) Date Value 11/13/2024 96.2 Platelet Count (k/uL) Date Value 11/13/2024 313 Lymphocytes % (%) Date Value 11/13/2024 16.9 Hepatic Function Panel: Albumin (g/dL) Date Value 11/13/2024 4.6 Bilirubin, Total (mg/dL) Date Value 11/13/2024 0.3 Alkaline Phosphatase (U/L) Date Value 11/13/2024 65 AST (U/L) Date Value 11/13/2024 14 ALT (U/L) Date Value 11/13/2024 10 Protein, Total (g/dL) Date Value 11/13/2024 7.3 CRP: CRP Date Value Ref Range Status 02/17/2023 1.1 (H) <0.9 mg/dL Final No results found for: QTBGOLD No results found for: HRINTP No results found for: TBTEST No results found for: PTMPT No results found for: FOLATE Vitamin B12 Date Value Ref Range Status 11/13/2024 443 232 - 1,245 pg/mL Final Iron Date Value Ref Range Status 11/13/2024 105 41 - 186 ug/dL Final TIBC Date Value Ref Range Status 11/13/2024 369 232 - 386 ug/dL Final Vitamin D 25 Hydroxy Date Value Ref Range Status 11/13/2024 23.7 (L) 31.0 - 80.0 ng/mL Final Comment: Classification of 25 OH Vitamin D status: Deficiency/Insufficiency: < or = 30 ng/ml. Sufficiency/Optimal Levels: 31-80 ng/mL Toxicity: > 100 ng/mL. Test performed by chemiluminescent immunoassay. Last Endoscopy: Colonoscopy 12/27/2024 Impression: - Patent ileo-colonic anastomosis, characterized by erythema, friable mucosa and ulceration. - Simple Endoscopic Score for Crohn's Disease: 3, mucosal inflammatory changes. Biopsied. - The examination was otherwise normal on direct and retroflexion views. - Diverticulosis in the sigmoid colon. FINAL DIAGNOSIS A. Stomach, biopsy: - Gastric antral and oxyntic mucosa with mild chronic inflammation. - No evidence of H. pylori microorganisms on H&E sections. B. Terminal ileum, biopsy: - Small intestinal mucosa with reactive changes, no significant active inflammation. - No evidence of granulomas or dysplasia. C-E. Colon, transverse, left and rectum, biopsy: - Colonic mucosa with no significant diagnostic abnormality. - No evidence of granulomas or dysplasia. Last Imaging: MRE 12/07/2024 IMPRESSION: 5 cm segment of neoterminal ileitis with luminal narrowing but without upstream dilation. Penetrating disease: Absent. Bilateral sacroiliitis. Assessment IMPRESSION (as copied and updated from my / note and reflects medical decision making today): 40-year-old female with history of ankylosing spondylitis as [...] anastomosis in January [address] Shaffer. Recent scope and MRE with concern for recurrent disease was supposed to start Upa but has not started. 1. Crohn's disease of small and large intestines with complication (HCC) (K50.819) Recent colonoscopy revealed inflammation and mild narrowing at the anastomosis site. Patient has been managing symptoms with an EEN diet, resulting in a 28-pound weight loss. Concerns about potential anemia due to fatigue. Previous treatment with Humira was inconsistent, leading to high antibody levels. - Ordered repeat blood work, including CRP and fecal calprotectin, to assess current inflammation levels. - Initiate Rinvoq therapy; patient educated on potential side effects, including rare abdominal pain and acne. Advised to take medication at night. - Scheduled follow-up with Dr. Hernandez, pharmacist specializing in IBD, for further discussion on medication risks and benefits. - Virtual follow-up appointment in 3 months to assess response to treatment and review lab results. 2. Tobacco use (Z72.0) Patient continues to smoke but expresses a desire to quit. - Advised smoking cessation to reduce cardiovascular risks associated with Rinvoq and improve overall health. - Referred to smoking cessation resources for support. 3. Vitamin D deficiency (E55.9) Patient resumed agcy-mvd-roclkrv vitamin D supplementation two weeks ago, noting slight improvement in energy levels. - Ordered vitamin D level as part of blood work to assess current status. - Continue vitamin D supplementation; dosage to be adjusted based on lab results. 4. Ankylosing spondylitis of lumbar region (HCC) (M45.6) Patient reports mild lumbar tenderness but overall improvement since dietary changes. MRI shows active inflammation. - Initiate Rinvoq therapy, which is effective for both Crohn's disease and ankylosing spondylitis. - Monitor symptoms and response to treatment during follow-up appointments. I spent 35 minutes in the virtual visit, with more than 50% of the total gucv-qv-uddl time of the visit in counseling / [...] visit. Either the patient or their legal care support representative has been informed of the risks and benefits of -- and alternatives to -- treatment through a remote evaluation and consents to proceed with the evaluation remotely. Pedro Israel PA-C April 04, 2025 1:01 PM documented in this encounter [facility] 12-27-2024 Nurse Note AMBULATORY PATIENT EDUCATION NOTE TOPIC: GI PROCEDURES: Colonoscopy with or without biopsies based on clinical findings Esophagogastroduodenoscopy(EGD) with or without biopies based on clinical findings, removal of polyps or lesions READINESS TO LEARN INSTRUCTION PROVIDED TO: Patient, readness to learn accessed prior to procedure COGNITIVE ABILITY: Alert and oriented PTED MOTIVATION TO LEARN: Interested FAMILY SUPPORT: High - Very involved in pt care IPATIENT LEARNS BEST BY: Individual Instruction FACTORS AFFECTING LEARNING: None PHYSICAL LIMITATIONS AFFECTING LEARNING: None LEARNING RESPONSE METHOD OF INSTRUCTION: Individual instruction PATIENT / FAMILY RESPONSE: Verbalizes understanding of: WORSENING CONDITION-Signs and symptoms of a worsening condition that warrant a call to the physician FOLLOW-UP PLAN: Patient instructed to call with any further issues SUPPLEMENTAL MATERIAL: Procedure Discharge Instructions REFERRAL (RECOMMENDATION): None [facility] 12-27-2024 Nurse Note AMBULATORY PATIENT EDUCATION NOTE TOPIC: GI PROCEDURES: Colonoscopy with or without biopsies based on clinical findings Esophagogastroduodenoscopy(EGD) with or without biopies based on clinical findings, removal of polyps or lesions READINESS TO LEARN INSTRUCTION PROVIDED TO: Patient, readness to learn accessed prior to procedure COGNITIVE ABILITY: Alert and oriented PTED MOTIVATION TO LEARN: Interested FAMILY SUPPORT: High - Very involved in pt care IPATIENT LEARNS BEST BY: Individual Instruction FACTORS AFFECTING LEARNING: None PHYSICAL LIMITATIONS AFFECTING LEARNING: None LEARNING RESPONSE METHOD OF INSTRUCTION: Individual instruction PATIENT / FAMILY RESPONSE: Verbalizes understanding of: WORSENING CONDITION-Signs and symptoms of a worsening condition that warrant a call to the physician FOLLOW-UP PLAN: Patient instructed to call with any further issues SUPPLEMENTAL MATERIAL: Procedure Discharge Instructions REFERRAL (RECOMMENDATION): None PRE OP LEARNING ASSESSMENT PROCEDURE/SURGERY: GI PROCEDURES: Colonoscopy and EGD READINESS TO LEARN COGNITIVE ABILITY: Alert and oriented MOTIVATION TO LEARN: Eager FAMILY SUPPORT: High - Very involved in pt care PATIENT LEARNS BEST BY: Individual Instruction FACTORS AFFECTING LEARNING: None PHYSICAL LIMITATIONS AFFECTING LEARNING: None Electronically Signed By: Soco Loomis RN In Department: GASTROENTEROLOGY documented in this encounter [facility] 12-27-2024 Note Q3 Patient Name: Jocelyne Lucas Procedure Date: 12/27/2024 8:18 AM Date of : 1985 Admit Type: Outpatient Age: 39 Gender: Female Note Status: Lug Loader Override Attending MD: Shiva Wayne MD, [id number] Procedure: Colonoscopy Indications: Follow-up of Crohn's disease Providers: Shiva Wayne MD Patient Profile: Refer to note in patient chart for documentation of history and physical. Last Colonoscopy: August 2023. Referring Physician: Ilia Elizabeth (Referring MD) Medicines: Monitored Anesthesia Care Complications: No immediate complications. Requesting Provider: Procedure: Pre-Anesthesia Assessment: - Prior to the procedure, a History and Physical was performed, and patient medications and allergies were reviewed. The patient is competent. The risks and benefits of the procedure and the sedation options and risks were discussed with the patient. All questions were answered and informed consent was obtained. Patient identification and proposed procedure were verified by the physician in the pre-procedure area in the procedure room. Mental Status Examination: alert and oriented. Airway Examination: normal oropharyngeal airway and neck mobility. Respiratory Examination: clear to auscultation. CV Examination: normal. Prophylactic Antibiotics: The patient does not require prophylactic antibiotics. Prior Anticoagulants: The patient has taken no anticoagulant or antiplatelet agents. After reviewing the risks and benefits, the patient was deemed in satisfactory condition to undergo the procedure. The anesthesia plan was to use moderate sedation / analgesia (conscious sedation). Immediately prior to administration of medications, the patient was re-assessed for adequacy to receive sedatives. The heart rate, respiratory rate, oxygen saturations, blood pressure, adequacy of pulmonary ventilation, and response to care were monitored throughout the procedure. The physical status of the patient was re-assessed after the procedure. After I obtained informed consent, the scope was passed under direct vision. Throughout the procedure, the patient's blood pressure, pulse, and oxygen saturations were monitored continuously. The Colonoscope was introduced through the anus and advanced to the ileocolonic anastomosis. The colonoscopy was performed without difficulty. The patient tolerated the procedure well. The quality of the bowel preparation was good. The terminal ileum, ileocecal valve, appendiceal orifice, and rectum were photographed. Moderate Sedation: MAC anesthesia was administered by the anesthesia team. Findings: The perianal and digital rectal examinations were normal. There was evidence of a prior ileo-colonic anastomosis in the ascending colon. This was patent and was characterized by erythema, friable mucosa and ulceration. The anastomosis was traversed. The Simple Endoscopic Score for Crohn's Disease was determined based on the endoscopic appearance of the mucosa in the following segments: - Ileum: Findings include aphthous ulcers less than 0.5 cm in size, less than 10% ulcerated surfaces, less than 50% of surfaces affected and no narrowings. Segment score: 3. - Right Colon: Findings include no ulcers present, no ulcerated surfaces, no affected surfaces and no narrowings. Segment score: 0. - Transverse Colon: Findings include no ulcers present, no ulcerated surfaces, no affected surfaces and no narrowings. Segment score: 0. - Left Colon: Findings include no ulcers present, no ulcerated surfaces, no affected surfaces and no narrowings. Segment score: 0. - Rectum: Findings include no ulcers present, no ulcerated surfaces, no affected surfaces and no narrowings. Segment score: 0. - Total SES-CD aggregate score: 3. Biopsies were taken with a cold forceps for histology. The exam wa (more content not included)... PROVATION 12-27-2024 Note Q3 Patient Name: Jocelyne Lucas Procedure Date: 12/27/2024 7:36 AM Date of : 1985 Admit Type: Outpatient Age: 39 Gender: Female Note Status: Finalized Attending MD: Shiva Wayne MD, [id number] Procedure: Upper GI endoscopy Indications: Nausea Providers: Shiva Wayne MD Patient Profile: Refer to note in patient chart for documentation of history and physical. Referring Physician: Ilia Elizabeth (Referring MD) Medicines: Monitored Anesthesia Care Complications: No immediate complications. Requesting Provider: Procedure: Pre-Anesthesia Assessment: - Prior to the procedure, a History and Physical was performed, and patient medications and allergies were reviewed. The patient is competent. The risks and benefits of the procedure and the sedation options and risks were discussed with the patient. All questions were answered and informed consent was obtained. Patient identification and proposed procedure were verified by the physician in the pre-procedure area in the procedure room. Mental Status Examination: alert and oriented. Airway Examination: normal oropharyngeal airway and neck mobility. Respiratory Examination: clear to auscultation. CV Examination: normal. Prophylactic Antibiotics: The patient does not require prophylactic antibiotics. Prior Anticoagulants: The patient has taken no anticoagulant or antiplatelet agents. After reviewing the risks and benefits, the patient was deemed in satisfactory condition to undergo the procedure. The anesthesia plan was to use moderate sedation / analgesia (conscious sedation). Immediately prior to administration of medications, the patient was re-assessed for adequacy to receive sedatives. The heart rate, respiratory rate, oxygen saturations, blood pressure, adequacy of pulmonary ventilation, and response to care were monitored throughout the procedure. The physical status of the patient was re-assessed after the procedure. After obtaining informed consent, the endoscope was passed under direct vision. Throughout the procedure, the patient's blood pressure, pulse, and oxygen saturations were monitored continuously. The Endoscope was introduced through the mouth, and advanced to the third part of duodenum. The upper GI endoscopy was accomplished without difficulty. The patient tolerated the procedure well. Moderate Sedation: MAC anesthesia was administered by the anesthesia team. Findings: Patchy mildly erythematous mucosa without bleeding was found in the gastric fundus and in the gastric antrum. Biopsies were taken with a cold forceps for Helicobacter pylori testing. LA Grade A (one or more mucosal breaks less than 5 mm, not extending between tops of 2 mucosal folds) esophagitis with no bleeding was found. The examined duodenum was normal. Impression: - Erythematous mucosa in the gastric fundus and antrum. Biopsied. - LA Grade A esophagitis with no bleeding. - Normal examined duodenum. Estimated Blood Loss: Estimated blood loss was minimal. Recommendation: - Discharge patient to home. - Resume previous diet. - Continue present medications. - Await pathology results. - Use Prilosec (omeprazole) 40 mg PO daily. - Patient has a contact number available for emergencies. The signs and symptoms of potential delayed complications were discussed with the patient. Return to normal activities tomorrow. Written discharge instructions were provided to the patient. Procedure Code(s): --- Professional --- 40825, Esophagogastroduodenoscopy, flexible, transoral; with biopsy, single or multiple Diagnosis Code(s): --- Professional (more content not included)... PROVATION 12-27-2024 History and physical note PROCEDURAL SEDATION HISTORY AND PHYSICAL EXAM SERVICE DATE: 12/27/2024 SERVICE TIME: 8:19 AM Subjective HPI: This is a 39 year old female who presents for screening Upper endoscopy and Colonoscopy PAST ANESTHESIA HISTORY: No history of adverse event PAST MEDICAL HISTORY Diagnosis Date Crohn's disease (HCC) Raynaud's syndrome PAST SURGICAL HISTORY Procedure Laterality Date BOWEL RESECTION HX 01/2023 RESECTION BOWEL SMALL COLONOSCOPY SCREENING 08/2023 LAP HYSTERECTOMY FOR UTERUS 250G OR LESS 12/22/2023 LAPAROSCOPIC HYSTERECTOMY TOTAL FOR UTERUS 250G OR LESS, LAPAROSCOPY WITH EXCISION OF ENDOMETRIAL LESIONS PELVIS, CYSTOSCOPY PAST SURGICAL HISTORY OF 2 C sections 2008, 2011 Prior to Admission medications as of 11/13/24 0758 Medication Sig Last Dose Taking upadacitinib tablet ER 24 hr 30 mg (RINVOQ) Take 1 tablet (30 mg) by mouth once daily. Swallow whole; DO NOT crush, chew, or open. upadacitinib tablet ER 24 hr 45 mg (RINVOQ) Take 1 tablet (45 mg) by mouth once daily. Swallow whole; DO NOT crush, chew, or open. ergocalciferol 50,000 unit capsule (VITAMIN D2, DRISDOL) Take 1 capsule by mouth one time a week. ondansetron (ZOFRAN) 4 mg tablet Take by mouth every 8 hours as needed for nausea/vomiting. glucagon (GLUCAGEN) 1 mg/mL injection Inject 1 mg intravenously one time only for 1 dose. For MRI Enterography, Inject 1 mg intravenously, as directed. Slow push at the appropriate time during MRI Scan buPROPion SR (WELLBUTRIN SR) 150 mg 12 hr tablet TAKE 1 TABLET BY MOUTH TWICE A DAY COLLAGEN MISC nicotine (NICODERM) 7 mg/24 hr Apply 1 Patch as directed every 24 hours. nicotine polacrilex (NICORETTE) 4 mg gum Take 1 Each by mouth every 2 hours as needed. ALLERGIES Allergen Reactions Morphine Other: See Comments Objective PHYSICAL EXAM: The remainder of the physical exam is noncontributory. GENERAL: Alert, no distress, cooperative SKIN: Skin color, texture, turgor normal. No rashes or lesions. HEAD/SINUSES: No significant findings ABDOMEN: Abdomen soft, non-tender, BS normal, No masses or organomegaly AIRWAY: Airway Visualization of Uvula: Yes Mouth opening greater than 2 fingerbreadths: Yes Neck Full Range of Motion: Yes LUNGS: Lungs clear to auscultation CARDIAC: Regular rhythm,Regular rate Assessment/Plan ASA Class: ASA Class: Patient with mild systemic disease Active Problems: * No active hospital problems. * Resolved Problems: * No resolved hospital problems. * Medication and Non-Pharmacologic VTE Prophylaxis/Anticoagulants VTE Prophylaxis: VTE prophylaxis appropriate Provisional Diagnosis/Treatment Plan: EGD and colonoscopy Sedation Goal: Anesthesia SIGNATURE: Shiva Wayne MD, MD PATIENT NAME: Jocelyne Lucas DATE: December 27, 2024 TIME: 8:19 AM [facility] Work Phone: 12-27-2024 History and physical note PROCEDURAL SEDATION HISTORY AND PHYSICAL EXAM SERVICE DATE: 12/27/2024 SERVICE TIME: 8:19 AM Subjective HPI: This is a 39 year old female who presents for screening Upper endoscopy and Colonoscopy PAST ANESTHESIA HISTORY: No history of adverse event PAST MEDICAL HISTORY Diagnosis Date Crohn's disease (HCC) Raynaud's syndrome PAST SURGICAL HISTORY Procedure Laterality Date BOWEL RESECTION HX 01/2023 RESECTION BOWEL SMALL COLONOSCOPY SCREENING 08/2023 LAP HYSTERECTOMY FOR UTERUS 250G OR LESS 12/22/2023 LAPAROSCOPIC HYSTERECTOMY TOTAL FOR UTERUS 250G OR LESS, LAPAROSCOPY WITH EXCISION OF ENDOMETRIAL LESIONS PELVIS, CYSTOSCOPY PAST SURGICAL HISTORY OF 2 C sections 2008, 2011 Prior to Admission medications as of 11/13/24 0758 Medication Sig Last Dose Taking upadacitinib tablet ER 24 hr 30 mg (RINVOQ) Take 1 tablet (30 mg) by mouth once daily. Swallow whole; DO NOT crush, chew, or open. upadacitinib tablet ER 24 hr 45 mg (RINVOQ) Take 1 tablet (45 mg) by mouth once daily. Swallow whole; DO NOT crush, chew, or open. ergocalciferol 50,000 unit capsule (VITAMIN D2, DRISDOL) Take 1 capsule by mouth one time a week. ondansetron (ZOFRAN) 4 mg tablet Take by mouth every 8 hours as needed for nausea/vomiting. glucagon (GLUCAGEN) 1 mg/mL injection Inject 1 mg intravenously one time only for 1 dose. For MRI Enterography, Inject 1 mg intravenously, as directed. Slow push at the appropriate time during MRI Scan buPROPion SR (WELLBUTRIN SR) 150 mg 12 hr tablet TAKE 1 TABLET BY MOUTH TWICE A DAY COLLAGEN MISC nicotine (NICODERM) 7 mg/24 hr Apply 1 Patch as directed every 24 hours. nicotine polacrilex (NICORETTE) 4 mg gum Take 1 Each by mouth every 2 hours as needed. ALLERGIES Allergen Reactions Morphine Other: See Comments Objective PHYSICAL EXAM: The remainder of the physical exam is noncontributory. GENERAL: Alert, no distress, cooperative SKIN: Skin color, texture, turgor normal. No rashes or lesions. HEAD/SINUSES: No significant findings ABDOMEN: Abdomen soft, non-tender, BS normal, No masses or organomegaly AIRWAY: Airway Visualization of Uvula: Yes Mouth opening greater than 2 fingerbreadths: Yes Neck Full Range of Motion: Yes LUNGS: Lungs clear to auscultation CARDIAC: Regular rhythm,Regular rate Assessment/Plan ASA Class: ASA Class: Patient with mild systemic disease Active Problems: * No active hospital problems. * Resolved Problems: * No resolved hospital problems. * Medication and Non-Pharmacologic VTE Prophylaxis/Anticoagulants VTE Prophylaxis: VTE prophylaxis appropriate Provisional Diagnosis/Treatment Plan: EGD and colonoscopy Sedation Goal: Anesthesia SIGNATURE: Shiva Wayne MD, MD PATIENT NAME: Jocelyne Lucas DATE: December 27, 2024 TIME: 8:19 AM documented in this encounter [facility] 12-27-2024 Note Q3 Patient Name: Jocelyne Lucas Procedure Date: 12/27/2024 7:36 AM Date of : 1985 Admit Type: Outpatient Age: 39 Gender: Female Note Status: Finalized Attending MD: Shiva Wayne MD, [id number] Procedure: Upper GI endoscopy Indications: Nausea Providers: Shiva Wayne MD Patient Profile: Refer to note in patient chart for documentation of history and physical. Referring Physician: Ilia Elizabeth (Referring MD) Medicines: Monitored Anesthesia Care Complications: No immediate complications. Requesting Provider: Procedure: Pre-Anesthesia Assessment: - Prior to the procedure, a History and Physical was performed, and patient medications and allergies were reviewed. The patient is competent. The risks and benefits of the procedure and the sedation options and risks were discussed with the patient. All questions were answered and informed consent was obtained. Patient identification and proposed procedure were verified by the physician in the pre-procedure area in the procedure room. Mental Status Examination: alert and oriented. Airway Examination: normal oropharyngeal airway and neck mobility. Respiratory Examination: clear to auscultation. CV Examination: normal. Prophylactic Antibiotics: The patient does not require prophylactic antibiotics. Prior Anticoagulants: The patient has taken no anticoagulant or antiplatelet agents. After reviewing the risks and benefits, the patient was deemed in satisfactory condition to undergo the procedure. The anesthesia plan was to use moderate sedation / analgesia (conscious sedation). Immediately prior to administration of medications, the patient was re-assessed for adequacy to receive sedatives. The heart rate, respiratory rate, oxygen saturations, blood pressure, adequacy of pulmonary ventilation, and response to care were monitored throughout the procedure. The physical status of the patient was re-assessed after the procedure. After obtaining informed consent, the endoscope was passed under direct vision. Throughout the procedure, the patient's blood pressure, pulse, and oxygen saturations were monitored continuously. The Endoscope was introduced through the mouth, and advanced to the third part of duodenum. The upper GI endoscopy was accomplished without difficulty. The patient tolerated the procedure well. Moderate Sedation: MAC anesthesia was administered by the anesthesia team. Findings: Patchy mildly erythematous mucosa without bleeding was found in the gastric fundus and in the gastric antrum. Biopsies were taken with a cold forceps for Helicobacter pylori testing. LA Grade A (one or more mucosal breaks less than 5 mm, not extending between tops of 2 mucosal folds) esophagitis with no bleeding was found. The examined duodenum was normal. Impression: - Erythematous mucosa in the gastric fundus and antrum. Biopsied. - LA Grade A esophagitis with no bleeding. - Normal examined duodenum. Estimated Blood Loss: Estimated blood loss was minimal. Recommendation: - Discharge patient to home. - Resume previous diet. - Continue present medications. - Await pathology results. - Use Prilosec (omeprazole) 40 mg PO daily. - Patient has a contact number available for emergencies. The signs and symptoms of potential delayed complications were discussed with the patient. Return to normal activities tomorrow. Written discharge instructions were provided to the patient. Procedure Code(s): --- Professional --- 10711, Esophagogastroduodenoscopy, flexible, transoral; with biopsy, single or multiple Diagnosis Code(s): --- Professional --- K31.89, Other diseases of stomach and duodenum K20.90, Esophagitis, unspecified without bleeding R11.0, Nausea CPT copyright 2020 [employer]. All rights reserved. Attending Participation: I personally performed the entire procedure. Scope In: 8:33:38 AM Scope Out: 8:39:01 AM MD Shiva Hanson MD 12/27/2024 8:41:41 AM This report has been signed electronically by Shiva Wayne MD Number of Addenda: 0 Note Initiated On: 12/27/2024 7:36 AM [facility] 12-27-2024 Nurse Note PRE OP LEARNING ASSESSMENT PROCEDURE/SURGERY: GI PROCEDURES: Colonoscopy and EGD READINESS TO LEARN COGNITIVE ABILITY: Alert and oriented MOTIVATION TO LEARN: Eager FAMILY SUPPORT: High - Very involved in pt care PATIENT LEARNS BEST BY: Individual Instruction FACTORS AFFECTING LEARNING: None PHYSICAL LIMITATIONS AFFECTING LEARNING: None Electronically Signed By: Soco Loomis RN In Department: GASTROENTEROLOGY [facility] 12-25-2024 Telephone encounter Note Order clarification received from [facility] regarding patients Rinvoq 45 mg tab dated 12/12/2024. Patient with history of intestinal bypass & raynauds syndrome without gangrene present on medical file. Rinvoq should be used with extreme caution in patient with reported medical conditions. Please review & verify if any changes to therapy are warranted. Form was dated & signed by Dr. Brown on 12/21/2024 & return fax to [facility] on 12/25/2024 . Fax confirmation received. Ankita Cleveland RN December 25, 2024 5:49 PM [facility] 12-25-2024 Miscellaneous Notes Order clarification received from [facility] regarding patients Rinvoq 45 mg tab dated 12/12/2024. Patient with history of intestinal bypass & raynauds syndrome without gangrene present on medical file. Rinvoq should be used with extreme caution in patient with reported medical conditions. Please review & verify if any changes to therapy are warranted. Form was dated & signed by Dr. Brown on 12/21/2024 & return fax to [facility] on 12/25/2024 . Fax confirmation received. Ankita Cleveland RN December 25, 2024 5:49 PM documented in this encounter [facility] 12-17-2024 Instructions Enmanuel Porter, JANICE - 12/17/2024 3:22 PM EST Nutrition Interventions Okay to mix the [place] with a little water to help with the texture and tolerance Okay to add some almond milk with the [employer] to see if that helps Freezing it and making it into a smoothie or ice cream (use almond milk or coffee to dilute and change flavor) Lower roughage Mediterranean diet to start after EEN Okay to still have once [place] [place] per day and then add in 1-2 meals throughout the day Start with protein sources when adding food back into the diet Soft, cooked, roasted, blended fruits and vegetables Adding some healthy carbohydrates, 1/2 cup at one time, up to 1 cup at meals (for weight loss goals) as well) Follow up with Enmanuel Porter RD 02/08 @11am virtually Mediterranean Diet, start with lower roughage for now and then work in some other higher/moderate foods - Limit processed foods; The less ingredients the better (Ex: Smucker's Natural PB > Jif PB), homemade and locally made is better (Ex: Homemade chocolate chip cookies > Chip's Ahoy) >>There are some emulsifiers that can be harmful to your gut. An emulsifier is a substance that is added to foods to make it creamier, typically found in ice cream, milk alternative like almond/soy/oat/coconut milk, salad dressings, creamy sauces, gravy, nut butters, ect.When looking at the food label if you find these ingredients, you should find another option >>polysorbate 80 >>carrageenan >>carboxymethylcellulose - Limit added sugars; Avoid sugar-sweetened beverages (even juice), candy, gummies/fruit snacks, excessive syrup/jellies, sugary cereals; Okay to have dessert in moderation - Limit red meat to 1x/week (beef, pork, fine), consume processed meats very sparingly (hot dogs, bologna, pepperoni, valente, etc) few times per month; Aim to eat fish 3x/week; soft whitefish like cod, walleye, tilapia, salmon, tuna, avoid deep frying -The remainder of your intake should come from lean chicken, lean turkey, eggs, low fat dairy >protein with every meal and snack >start with this food group when adding food back into your diet >make sure its soft, moist, well cooked, ground, sauced or gravy - High in fruits, veggies, beans, lentils, whole grains (This is where we modify during flares) >start with soft and cooked, pretend you have no teeth (soft foods for now) >canned fruits make sure they are in water or juice, avoid syrups., canned veggies are great and frozen fruits and vegetables are awesome! >start with 1/2 cup at one time, this will help with tolerance, and then advance by 1/2 cup at one time >soups and smoothies are a great way to get in more at one time, that's low risk >casseroles, stir dunbar, crock pot meals are all good ways to get in veggies - High in nuts/nut butters, seeds/seed butters, avocado/avocado oil, olives/olive oil (This is where we modify during flares); Low in vegetable oils (corn, soybeans, cottonseed) and animal based fats (butter, sour cream, mayonnaise, ranch dressing, etc.) >3 times/week add more nut butter, seed butters, ground flax seed, soaked julio seeds, olives and olive oil, avocado documented in this encounter [facility] 12-17-2024 History of Present illness Narrative GI Nutrition TeleHealth Consult - Re Assessment I have communicated my name and active licensure. The patient s identity and physical location were verified at the time of this visit. Either the patient or their legal care support representative has been informed of the risks and benefits of -- and alternatives to -- treatment through a remote evaluation and consents to proceed with the evaluation remotely Some elements copied from my note on 11/15/2024 have been updated and all reflect current decision making from today, December 17, 2024 Nutrition Diagnosis: Malnutrition, related to, Crohn's Disease, as evidenced by 7.4% weight loss over the last 1 month, not drinking enough [place] for calorie/protein goals on EEN . RECOMMENDED MALNUTRITION DIAGNOSIS: MILD PROTEIN-CALORIE MALNUTRITION NUTRITION CARE PLAN Nutrition Intervention December 17, 2024 : Diet: --continue EEN for a total of 4-6 weeks --lower roughage Mediterranean diet afterwards --slowly add in roughage as tolerated Vitamins/Minerals: --continue vitamin D Oral supplements: --[employer] for EEN Labs --fecal bob pro Nutrition Monitoring & Evaluation: improvement in GI symptoms Criteria: per pt report Need for Follow up: 02/08 @3:15pm virtually PROGRESS: This is a 39 year-old female with an underlying diagnosis of Crohn's Disease since 2010 who is followed by Dr. Brown. [facility] ileo-colonic resection, Hysterectomy. Currently with nausea, bloating and decreased appetite. Plan to continue Humria Q2, start xifaxian, drug levels, labs and vitamins, fecal stool stool test Today, patient reports the following: --pt has been feeling good, she is hungry --she has been on the diet for a little over 2 weeks --its hard for her to get it all down, [place] taste good but getting some flavor fatigued. Has been drinking 2 per day (which is a win for her) is mixing it with a little water --pts feeling mostly hydrated Current Clinical Symptoms # of bowel movements daily: 0-1 times, day, once every three days # of liquid stools daily: none Consistency: mushy, formed, hard, mucous Bloody bowel movements: no Urgency: yes, fairly but not atypical Abdominal pain: no, this has improved Abdominal distention: no Nausea/vomiting: no Heartburn/reflux: yes, burping Nutrition Intervention November 15, 2024 : Diet: --6 weeks EEN --ongoing Vitamins/Minerals: --vitamin D once/week --met Oral supplements: --trial of protein supplements, will send samples --met Labs: --CRP and fecal calpro --ongoing Intake: Appetite is fair to poor Diet History: EEN: [employer] vanilla, coffee mixed with the [employer], will try and get two in per day Beverages - gary water, water, coffee black Vitamins/Supplements - --vitamin D 50,000/week Allergies/Intolerance: --pop (abd pain) --raw vegetables (abd pain and loose stools) Morphine Medications: Current Outpatient Medications Medication Sig Dispense Refill upadacitinib tablet ER 24 hr 30 mg (RINVOQ) Take 1 tablet (30 mg) by mouth once daily. Swallow whole; DO NOT crush, chew, or open. 30 tablet 11 upadacitinib tablet ER 24 hr 45 mg (RINVOQ) Take 1 tablet (45 mg) by mouth once daily. Swallow whole; DO NOT crush, chew, or open. 30 tablet 2 ergocalciferol 50,000 unit capsule (VITAMIN D2, DRISDOL) Take 1 capsule by mouth one time a week. 12 capsule 1 ondansetron (ZOFRAN) 4 mg tablet Take by mouth every 8 hours as needed for nausea/vomiting. glucagon (GLUCAGEN) 1 mg/mL injection Inject 1 mg intravenously one time only for 1 dose. For MRI Enterography, Inject 1 mg intravenously, as directed. Slow push at the appropriate time during MRI Scan 1 Each 0 buPROPion SR (WELLBUTRIN SR) 150 mg 12 hr tablet TAKE 1 TABLET BY MOUTH TWICE A DAY 180 tablet 1 COLLAGEN MISC nicotine (NICODERM) 7 mg/24 hr Apply 1 Patch as directed every 24 hours. 28 Patch 5 nicotine polacrilex (NICORETTE) 4 mg gum Take 1 Each by mouth every 2 hours as needed. 100 Each 5 No current facility-administered medications for this visit. Anthropometrics: Height: 5'3 Weight history: 63.5 kg (12/17/23) 67.2kg (11/13/24), 65.8kg (02/01/24), 67kg (11/23/23) UBW: 140# Goal weight: 135# weight loss, pants no longer fit BMI: 24.8--normal Weight has decreased by 5kg over 1 months representing a 7.4% weight change- significant. Wants to loose weight, thinks that she has leveled off Estimated needs: Calories: 1500 - 1700 kcals/day determined by 22- 25 kcal/kg Protein: 67 - 80 g/day determined by 1.0-1.2 g/kg Malnutrition Screening Significant unintentional weight loss? Yes Eating less than 75% of usual intake for more than 2 weeks? Yes Potential Signs of Inflammation: chronic condition In the context of Acute Illness or Injury based on: Unintentional Weight Loss: 5% over 1 month Insufficient Energy Intake: <75% for >7 days Education Materials Provided: None this visit Referred/Supervised by: Dr. Brown/Dr. Brown MNT Billing Type: Re-assess/15 min [address] documented in this encounter [facility] 12-17-2024 Note HNO ID: [id number] Author: ENMANUEL PORTER RD Service: ? Author Type: Registered Dietitian Type: Progress Notes Filed: 12/18/2024 09:42 Note Text: GI Nutrition TeleHealth Consult - Re Assessment I have communicated my name and active licensure. The patient?s identity and physical location were verified at the time of this visit. Either the patient or their legal care support representative has been informed of the risks and benefits of -- and alternatives to -- treatment through a remote evaluation and consents to proceed with the evaluation remotely Some elements copied from my note on 11/15/2024 have been updated and all reflect current decision making from today, December 17, 2024 Nutrition Diagnosis: Malnutrition, related to, Crohn's Disease, as evidenced by 7.4% weight loss over the last 1 month, not drinking enough [place] for calorie/protein goals on EEN . RECOMMENDED MALNUTRITION DIAGNOSIS: MILD PROTEIN-CALORIE MALNUTRITION NUTRITION CARE PLAN Nutrition Intervention December 17, 2024 : Diet: --continue EEN for a total of 4-6 weeks --lower roughage Mediterranean diet afterwards --slowly add in roughage as tolerated Vitamins/Minerals: --continue vitamin D Oral supplements: --[place] for EEN Labs --fecal bob pro Nutrition Monitoring AND Evaluation: improvement in GI symptoms Criteria: per pt report Need for Follow up: 02/08 @3:15pm virtually PROGRESS: This is a 39 year-old female with an underlying diagnosis of Crohn's Disease since 2010 who is followed by Dr. Brown. [facility] ileo-colonic resection, Hysterectomy. Currently with nausea, bloating and decreased appetite. Plan to continue Humria Q2, start xifaxian, drug levels, labs and vitamins, fecal stool stool test Today, patient reports the following: --pt has been feeling good, she is hungry --she has been on the diet for a little over 2 weeks --its hard for her to get it all down, [employer] taste good but getting some flavor fatigued. Has been drinking 2 per day (which is a win for her) is mixing it with a little water --pts feeling mostly hydrated Current Clinical Symptoms # of bowel movements daily: 0-1 times, day, once every three days # of liquid stools daily: none Consistency: mushy, formed, hard, mucous Bloody bowel movements: no Urgency: yes, fairly but not atypical Abdominal pain: no, this has improved Abdominal distention: no Nausea/vomiting: no Heartburn/reflux: yes, burping Nutrition Intervention November 15, 2024 : Diet: --6 weeks EEN --ongoing Vitamins/Minerals: --vitamin D once/week --met Oral supplements: --trial of protein supplements, will send samples --met Labs: --CRP and fecal calpro --ongoing Intake: Appetite is fair to poor Diet History: EEN: [employer] vanilla, coffee mixed with the [employer], will try and get two in per day Beverages - gary water, water, coffee black Vitamins/Supplements - --vitamin D 50,000/week Allergies/Intolerance: --pop (abd pain) --raw vegetables (abd pain and loose stools) Morphine Medications: Current Outpatient Medications Medication Sig Dispense Refill upadacitinib tablet ER 24 hr 30 mg (RINVOQ) Take 1 tablet (30 mg) by mouth once daily. Swallow whole; DO NOT crush, chew, or open. 30 tablet 11 upadacitinib tablet ER 24 hr 45 mg (RINVOQ) Take 1 tablet (45 mg) by mouth once daily. Swallow whole; DO NOT crush, chew, or open. 30 tablet 2 ergocalciferol 50,000 unit capsule (VITAMIN D2, DRISDOL) Take 1 capsule by mouth one time a week. 12 capsule 1 ondansetron (ZOFRAN) 4 mg tablet Take by mouth every 8 hours as needed for nausea/vomiting. glucagon (GLUCAGEN) 1 mg/mL injection Inject 1 mg intravenously one time only for 1 dose. For MRI Enterography, Inject 1 mg intravenously, as directed. Slow push at the appropriate time during MRI Scan 1 Each 0 buPROPion SR (WELLBUTRIN SR) 150 mg 12 hr tablet TAKE 1 TABLET BY MOUTH TWICE A DAY 180 tablet 1 COLLAGEN MISC nicotine (NICODERM) 7 mg/24 hr Apply 1 Patch as directed every 24 hours. 28 Patch 5 nicotine polacrilex (NICORETTE) 4 mg gum Take 1 Each by mouth every 2 hours as needed. 100 Each 5 No current facility-administered medications for this visit. Anthropometrics: Height: 5'3 Weight history: 63.5 kg (12/17/23) 67.2kg (11/13/24), 65.8kg (02/01/24), 67kg (11/23/23) UBW: 140# Goal weight: 135# weight loss, pants no longer fit BMI: 24.8--normal Weight has decreased by 5kg over 1 months representing a 7.4% weight change- significant. Wants to loose weight, thinks that she has leveled off Estimated needs: Calories: 1500 - 1700 kcals/day determined by 22- 25 kcal/kg Protein: 67 - 80 g/day determined by 1.0-1.2 g/kg Malnutrition Screening Significant unintentional weight loss? Yes Eating less than 75% of usual intake for more than 2 weeks? Yes Potential Signs of Inflammation: chronic condition In the context of Acute Illness or Injury based on: Uninten (more content not included)... [facility] 12-07-2024 History of Present illness Narrative Radiology Service Progress Note DATE OF SERVICE: December 07, 2024 TIME: 7:07 AM PATIENT WEIGHT: 150 LBS PATIENT IDENTITY VERIFICATION COMPLETED USING TWO (2) STANDARD IDENTIFIERS: Name and Date of confirmed by patient verbally and Name and Date of [...] Left antecubital site with a Angio cath: 22 gauge. and A Saline lock was inserted per protocol IV SITE APPEARANCE: Clean,Dry and Intact SIGNATURE: Roshan Hilton RN PATIENT NAME: Jocelyne Lucas DATE: December 07, 2024 TIME: 7:07 AM Radiology Service Progress Note PATIENT NAME: Jocelyne Lucas DATE OF SERVICE: December 07, 2024 TIME: 7:08 AM PATIENT IDENTITY VERIFICATION COMPLETED USING TWO (2) STANDARD IDENTIFIERS: Name and Date of confirmed by patient verbally and Name and Date of confirmed by identification band. PATIENT GENDER DATA: Female. status: : No status: NO. PATIENT RELEVANT IMPLANT DATA REVIEWED: Yes ALLERGIES: Reviewed and unchanged MEDICATIONS REVIEWED: YES PROCEDURE: Enterography Oral contrast prep: Breeza (2) 500ml bottles per protocol and Glucagon 1 mg IV IV SITE: Ambulatory: A peripheral IV was started in the Left antecubital site with a Angio cath: 22 gauge. and A Saline lock was inserted per protocol PERIPHERAL IV ACCESS: Discontinued PATIENT TOLERATED PROCEDURE: Without incident. PATIENT DISCHARGED TO: Home/Self Care SIGNED BY: Roshan Hilton RN December 07, 2024 7:08 AM PATIENT EDUCATION RADIOLOGY TOPIC: Procedure/Surgery: MRE READINESS TO LEARN COGNITIVE ABILITY: Alert and oriented MOTIVATION TO LEARN: Interested FAMILY SUPPORT: Unable to assess - Family not present INSTRUCTION PROVIDED TO: Patient PATIENT LEARNS BEST BY: Individual Instruction FACTORS AFFECTING LEARNING: None PHYSICAL LIMITATIONS AFFECTING LEARNING: None LEARNING RESPONSE Procedure: Angio Procedures: Radiology Procedures: MRE METHOD OF INSTRUCTION: Individual instruction PATIENT / FAMILY RESPONSE: Verbalizes understanding of: Pre Procedure Instructions Post Procedure Instructions FOLLOW-UP PLAN: Complete - No need for follow-up documented in this encounter [facility] 12-07-2024 Note HNO ID: [id number] Author: ROSHAN HILTON RN Service: Radiology Author Type: Registered Nurse Type: Progress Notes Filed: 12/07/2024 07:35 Note Text: Radiology Service Progress Note DATE OF SERVICE: December 07, 2024 TIME: 7:07 AM PATIENT WEIGHT: 150 LBS PATIENT IDENTITY VERIFICATION COMPLETED USING TWO (2) STANDARD IDENTIFIERS: Name and Date of confirmed by patient verbally and Name and Date of [...] Left antecubital site with a Angio cath: 22 gauge. and A Saline lock was inserted per protocol IV SITE APPEARANCE: Clean,Dry and Intact SIGNATURE: Roshan Hilton RN PATIENT NAME: Jocelyne Lucas DATE: December 07, 2024 TIME: 7:07 AM Radiology Service Progress Note PATIENT NAME: Jocelyne Lucas DATE OF SERVICE: December 07, 2024 TIME: 7:08 AM PATIENT IDENTITY VERIFICATION COMPLETED USING TWO (2) STANDARD IDENTIFIERS: Name and Date of confirmed by patient verbally and Name and Date of confirmed by identification band. PATIENT GENDER DATA: Female. status: : No status: NO. PATIENT RELEVANT IMPLANT DATA REVIEWED: Yes ALLERGIES: Reviewed and unchanged MEDICATIONS REVIEWED: YES PROCEDURE: Enterography Oral contrast prep: Breeza (2) 500ml bottles per protocol and Glucagon 1 mg IV IV SITE: Ambulatory: A peripheral IV was started in the Left antecubital site with a Angio cath: 22 gauge. and A Saline lock was inserted per protocol PERIPHERAL IV ACCESS: Discontinued PATIENT TOLERATED PROCEDURE: Without incident. PATIENT DISCHARGED TO: Home/Self Care SIGNED BY: Roshan Hilton RN December 07, 2024 7:08 AM PATIENT EDUCATION RADIOLOGY TOPIC: Procedure/Surgery: MRE READINESS TO LEARN COGNITIVE ABILITY: Alert and oriented MOTIVATION TO LEARN: Interested FAMILY SUPPORT: Unable to assess - Family not present INSTRUCTION PROVIDED TO: Patient PATIENT LEARNS BEST BY: Individual Instruction FACTORS AFFECTING LEARNING: None PHYSICAL LIMITATIONS AFFECTING LEARNING: None LEARNING RESPONSE Procedure: Angio Procedures: Radiology Procedures: MRE METHOD OF INSTRUCTION: Individual instruction PATIENT / FAMILY RESPONSE: Verbalizes understanding of: Pre Procedure Instructions Post Procedure Instructions FOLLOW-UP PLAN: Complete - No need for follow-up Electronically Signed By Roshan Hilton RN [facility] 12-07-2024 Telephone encounter Note Prior authorization for pended medication(s) has been approved; however, due to insurance restrictions Rx must be filled at [facility] ([phone]). If refill request approved, eRx will be sent to [facility] for processing. Thank you. NOTE: Initial prior auth was completed by [facility] and expires on 06/03/25. Future PA renewals will be the responsibility of the provider's office. Pended Orders ID Status Description Pended By When Reason [id number] Pended upadacitinib tablet ER 24 hr 30 mg (RINVOQ)-DAILY Eren Sandoval [facility] 12/07/24 0855 [id number] Pended upadacitinib tablet ER 24 hr 45 mg (RINVOQ)-DAILY Eren Sandoval RP 12/07/24 0855 Eren Sandoval RPh Clinical Pharmacist - Biologics: Allergy, Immunology, and Inflammatory [facility] ; Pool: P [facility] Pool #: [id number] [facility] 12-07-2024 Miscellaneous Notes Prior authorization for pended medication(s) has been approved; however, due to insurance restrictions Rx must be filled at [facility] ([phone]). If refill request approved, eRx will be sent to [facility] for processing. Thank you. NOTE: Initial prior auth was completed by [facility] and expires on 06/03/25. Future PA renewals will be the responsibility of the provider's office. Pended Orders ID Status Description Pended By When Reason [id number] Pended upadacitinib tablet ER 24 hr 30 mg (RINVOQ)-DAILY Eren Sandoval RP 12/07/24 0855 [id number] Pended upadacitinib tablet ER 24 hr 45 mg (RINVOQ)-DAILY Eren Sandoval RP 12/07/24 0855 Eren Sandoval RPh Clinical Pharmacist - Biologics: Allergy, Immunology, and Inflammatory [facility] ; Pool: [facility] Pool #: [id number] documented in this encounter [facility] 12-07-2024 History of Present illness Narrative Radiology Service Progress Note PATIENT NAME: Jocelyne Lucas DATE OF SERVICE: December 07, 2024 TIME: 9:01 AM PATIENT IDENTITY VERIFICATION COMPLETED USING TWO (2) IDENTIFIERS: Name and Date of confirmed by patient verbally and Name and Date of confirmed by identification band. FALL SCREENING: Has the patient had 2 falls in the last year or 1 fall with injury or currently using an Ambulatory Assistive Device (Walker, Cane, Wheelchair, Crutches, etc.)? No PATIENT GENDER DATA: Female. status: : No status: NO. PATIENT RELEVANT IMPLANT DATA REVIEWED: Yes PATIENT PRESENTS WITH AN IMPLANTABLE OR ATTACHED SCALLOP RAKER: No RADIOLOGY DEPARTMENT: MR; Exam(s) Completed: Body: Enterography PERIPHERAL IV DATA: Site assessment: Clean,Dry and Intact, Site disposition Discontinued SIGNED BY: LARISA Avalos December 07, 2024 9:01 AM documented in this encounter [facility] 12-07-2024 Note HNO ID: [id number] Author: SONIDO MONET MRI Tech Service: Radiology Author Type: Technologist Type: Progress Notes Filed: 12/07/2024 09:02 Note Text: Radiology Service Progress Note PATIENT NAME: Jocelyne Lucas DATE OF SERVICE: December 07, 2024 TIME: 9:01 AM PATIENT IDENTITY VERIFICATION COMPLETED USING TWO (2) IDENTIFIERS: Name and Date of confirmed by patient verbally and Name and Date of confirmed by identification band. FALL SCREENING: Has the patient had 2 falls in the last year or 1 fall with injury or currently using an Ambulatory Assistive Device (Walker, Cane, Wheelchair, Crutches, etc.)? No PATIENT GENDER DATA: Female. status: : No status: NO. PATIENT RELEVANT IMPLANT DATA REVIEWED: Yes PATIENT PRESENTS WITH AN IMPLANTABLE OR ATTACHED SCALLOP RAKER: No RADIOLOGY DEPARTMENT: MR; Exam(s) Completed: Body: Enterography PERIPHERAL IV DATA: Site assessment: Clean,Dry and Intact, Site disposition Discontinued SIGNED BY: LARISA Avalos Tech December 07, 2024 9:01 AM [facility] 11-29-2024 History of Present illness Narrative [facility] received prescription(s) for Rinvoq from Dr. Israel's office. Benefits investigation was conducted, indicating that a prior authorization is required by patient's insurance plan with [employer]. Encounter will be updated once prior authorization has been submitted by [facility]. Roro Bass CPhT, Inflammatory/Allergy [facility] [phone] documented in this encounter [facility] 11-29-2024 Note HNO ID: [id number] Author: ?, ?, ? Service: ? Author Type: ? Type: Progress Notes Filed: 12/05/2024 08:32 Note Text: PA was initiated for Rinvoq and pending review. Plan Name: [employer] Plan Agent/Venegas: [id number] Case: [id number] Timeline: Standard Roro Bass CPhT, Inflammatory/Allergy [facility] [phone] [facility] 11-29-2024 Note HNO ID: [id number] Author: SANDOVAL RPh Service: ? Author Type: ? Type: Progress Notes Filed: 12/07/2024 08:57 Note Text: Attestation signed by Eren Sandoval RPh at 12/07/2024 8:57 AM Eren Sandoval PharmD, [facility] Clinical Pharmacist - Biologics: Allergy, Immunology, and Inflammatory [facility] ; Pool: Jorge Luis [facility] Pool #: [id number] Prior authorization was approved for Rinvoq. Plan Name: [employer] LIND reference number: [id number] Approval Dates: 11/05/24-06/03/25 However, s/he is required to use [facility] to fill this medication. Will queue prescription(s) to go to designated specialty pharmacy. No further action by [facility]. Roro Bass CPhT, Inflammatory/Allergy [facility] [phone] [facility] 11-29-2024 Note HNO ID: [id number] Author: ?, ?, ? Service: ? Author Type: ? Type: Progress Notes Filed: 11/29/2024 09:03 Note Text: [facility] received prescription(s) for Rinvoq from Dr. Israel's office. Benefits investigation was conducted, indicating that a prior authorization is required by patient's insurance plan with [facility]. Encounter will be updated once prior authorization has been submitted by [facility]. Roro Bass CPhT, Inflammatory/Allergy [facility] [phone] [facility] 11-27-2024 Telephone encounter Note Requested Prescriptions Pending Prescriptions Disp Refills upadacitinib tablet ER 24 hr 45 mg (RINVOQ) 30 tablet 2 Sig: Take 1 tablet (45 mg) by mouth once daily. Swallow whole; DO NOT crush, chew, or open. upadacitinib tablet ER 24 hr 30 mg (RINVOQ) 30 tablet 11 Sig: Take 1 tablet (30 mg) by mouth once daily. Swallow whole; DO NOT crush, chew, or open. Orders pended & routed to Dr. Brown for review / approval. Patient outreach completed via my chart. Biologic Navigator cc'd for update & tracking purposes. Ankita [facility] RN November 27, 2024 11:57 AM [facility] 11-27-2024 Miscellaneous Notes Requested Prescriptions Pending Prescriptions Disp Refills upadacitinib tablet ER 24 hr 45 mg (RINVOQ) 30 tablet 2 Sig: Take 1 tablet (45 mg) by mouth once daily. Swallow whole; DO NOT crush, chew, or open. upadacitinib tablet ER 24 hr 30 mg (RINVOQ) 30 tablet 11 Sig: Take 1 tablet (30 mg) by mouth once daily. Swallow whole; DO NOT crush, chew, or open. Orders pended & routed to Dr. Brown for review / approval. Patient outreach completed via my chart. Biologic Navigator cc'd for update & tracking purposes. Ankita [facility] RN November 27, 2024 11:57 AM ----- Message from Lamont Brown MD sent at 11/21/2024 10:45 PM EST ----- Regarding: start rinvoq Hi. 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 Can you put orders infor this? Lucy Washburn documented in this encounter [facility] 11-27-2024 Telephone encounter Note ----- Message from Lamont Brown MD sent at 11/21/2024 10:45 PM EST ----- Regarding: start rinvoq Hi. 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 Can you put orders infor this? Thanks Wu [facility] 11-19-2024 Note HNO ID: [id number] Author: RADHA SCALES, PhD Service: ? Author Type: Psychologist Type: Progress Notes Filed: 01/07/2025 13:09 Note Text: Summary: Patient no show Patient didn't show up for her psychology intake session at 9AM on 11/19/2024. Radha Scales, PhD Gastrointestinal Psychologist [facility] 11-15-2024 Instructions Enmanuel Porter, JANICE - 11/15/2024 3:20 PM EST Nutrition Interventions Consider changing diet soda to sparkling water to see if its the artifical sweetener or the carbonation that is contributing to your bloating Replace with ORS to aid in hydration status, these are more hydrating than just plain water Okay to drink the jesusita angel as much as you want EEN vs CDED discussion, EEN for 6 weeks, after choosing a supplement you can tolerate/like Message me which ones you want to try and then when you want to start the diet In 6 week, symptoms and labs after to see if it helped Follow up with Enmanuel Porter RD 12/17 @3:15pm virtually Exclusive Enteral Nutrition (EEN): >This diet typically is about 6-12 weeks in duration. This diet consists of only drinking a nutrition supplement to meet all your calorie and protein needs. You are allowed to drink other beverages like water, electrolyte beverages, decaf tea, ect to maintain your hydration status >you will need to drink about 4-5 shakes per day >you can drink additional fluids for hydration, listed above >sip fluids and drink all day long, take at least 45-60 min to drink a whole carton Crohn's Disease Exclusion Diet (CDED) >consists for three phases each last 6 weeks in duration. We will meet every 6 weeks to talk about the next phase. We will also check some labs to make sure that you are healing and feeling better. (Blood work and stool testing) >Phase 1: 50% of your estimated needs will come from a nutrition supplement of your choice. The remainder of your calories and protein will come from a variety of mandatory foods and the optional foods from a list that is provided to you >Mandatory foods for the first two phases are chicken or eggs, 2 medium sized cooked and cool potatoes, two bananas or applesauce. >Phase 2: 25% of estimated needs from shakes (2 cartons per day) and then the rest coming from list of foods. Mandatory Foods stay the same, but the list of allowed foods is expanded >Phase 3: transitions you to a Mediterranean diet > I will sign you up for an michelet that has all the diet information available (allowed/disallowed foods), this michelet will also have recipes for each phase documented in this encounter [facility] 11-15-2024 History of Present illness Narrative GI Nutrition TeleHealth Consult - Initial Assessment I have communicated my name and active licensure. The patient s identity and physical location were verified at the time of this visit. Either the patient or their legal care support representative has been informed of the risks and benefits of -- and alternatives to -- treatment through a remote evaluation and consents to proceed with the evaluation remotely Nutrition Diagnosis: Altered Gastrointestinal Tract Function, related to, Crohn's Disease, as evidenced by persistent and painful bloating . RECOMMENDED MALNUTRITION DIAGNOSIS: NO MALNUTRITION IDENTIFIED NUTRITION CARE PLAN Nutrition Intervention November 15, 2024 : Diet: --6 weeks EEN Vitamins/Minerals: --vitamin D once/week Oral supplements: --trial of protein supplements, will send samples Labs: --CRP and fecal calpro Nutrition Monitoring & Evaluation: improvement in GI symptoms Criteria: per pt report Need for Follow up: 1/20 @3:15pm virtually This is a 39 year-old female with an underlying diagnosis of Crohn's Disease since 2010 who is followed by Dr. Brown. [facility] ileo-colonic resection, Hysterectomy. Currently with nausea, bloating and decreased appetite. Plan to continue Humria Q2, start xifaxian, drug levels, labs and vitamins, fecal stool stool test Today, patient reports the following: --she has been a little frustrated with her symptoms and did not have a good experience with the hysterectomy, had a hematoma for this --has gained some weight because she has not been working out as much --unsure if she is having some stricturing symptoms --she is having a little bit of relief on the abx (has been taking for 2 days) --typically fasts all day long (16 hours) and feels the best --feels like she has a malabsorption, has been more fatigued than usual as well and that is not like her Current Clinical Symptoms # of bowel movements daily: 1-3 times/day (more often but volume is lower) is not getting a lot of relief from bloating after she has bowel movements # of liquid stools daily: some Consistency: loose, soft, mucous Bloody bowel movements: no Urgency: no Abdominal pain: yes, generalized uncomfortable Abdominal distention: yes, bloating since the hysterectomy Nausea/vomiting: yes, all day long especially in the morning, zofran three times/day Heartburn/reflux: yes, lots of indigestion and burping Intake: she is hungry and wants to eat, typically fasts all day long Diet History: Lunch - skips this meal most of the time Snack - does not eat a lot of fruits, banana and apples not often, Dinner - does a lot of her own home cooking, does her caning, and raises her chickens and pigs and cows, has been trying to limit her intake around this meal, green beans, cooked carrots and peas, chicken rice and carrots, has been doing more mediterranean diet, nuts, and peanut butter, bread, chex mix Beverages - has changed to diet soda, water and jesusita drinks, coffee Vitamins/Supplements - --vitamin D 50,000/week Allergies/Intolerance: --pop (abd pain) --raw vegetables (abd pain and loose stools) -- Morphine Medications: Current Outpatient Medications Medication Sig Dispense Refill ergocalciferol 50,000 unit capsule (VITAMIN D2, DRISDOL) Take 1 capsule by mouth one time a week. 12 capsule 1 ondansetron (ZOFRAN) 4 mg tablet Take by mouth every 8 hours as needed for nausea/vomiting. glucagon (GLUCAGEN) 1 mg/mL injection Inject 1 mg intravenously one time only for 1 dose. For MRI Enterography, Inject 1 mg intravenously, as directed. Slow push at the appropriate time during MRI Scan 1 Each 0 ondansetron orally disintegrating (ZOFRAN ODT) 4 mg disintegrating tablet Take 1 tablet by mouth every 8 hours as needed for nausea/vomiting. 30 tablet 1 rifAXIMin (XIFAXAN) 550 mg tablet Take 1 tablet by mouth two times a day for 14 days. 28 tablet 0 rifAXIMin (XIFAXAN) 550 mg tablet Take 1 tablet by mouth three times a day for 14 days. 42 tablet 0 adalimumab-adaz (HYRIMOZ,CF, PEN) 40 mg/0.4 mL pen Inject 0.4 mL subcutaneously every 2 weeks. 2.4 mL 3 cyclobenzaprine (FLEXERIL) 5 mg tablet Take 1 tablet by mouth at bedtime as needed. 30 tablet 1 buPROPion SR (WELLBUTRIN SR) 150 mg 12 hr tablet TAKE 1 TABLET BY MOUTH TWICE A DAY 180 tablet 1 ondansetron orally disintegrating (ZOFRAN ODT) 4 mg disintegrating tablet Take 1 tablet by mouth every 8 hours as needed. 8 tablet 0 senna (SENOKOT) 8.6 mg tab Take 1 tablet by mouth two times a day. (Patient not taking: Reported on 02/01/2024) 30 tablet 0 acetaminophen (TYLENOL EXTRA STRENGTH) 500 mg tablet Take 2 tablets by mouth every 8 hours. 60 tablet 0 25/iron fum/folic/dha (-1 ORAL) Take by mouth. COLLAGEN MISC adalimumab 40 mg/0.4 mL subcutaneous pen kit (HUMIRA (CF)) Inject 40 mg (1 pen) subcutaneously every 2 weeks. 6 Each 3 nicotine (NICODERM) 7 mg/24 hr Apply 1 Patch as directed every 24 hours. 28 Patch 5 nicotine polacrilex (NICORETTE) 4 mg gum Take 1 Each by mouth every 2 hours as needed. 100 Each 5 No current facility-administered medications for this visit. Anthropometrics: Height: 5'3 Weight history: 67.2kg (11/13/24), 65.8kg (02/01/24), 67kg (11/23/23) UBW: 140# Goal weight: 135# weight loss, pants no longer fit BMI: 26.5--overweight/normal Weight has remained stable over the last 12 months . Estimated needs: Calories: 1500 - 1700 kcals/day determined by 22- 25 kcal/kg Protein: 67 - 80 g/day determined by 1.0-1.2 g/kg Malnutrition Screening Significant unintentional weight loss? No Eating less than 75% of usual intake for more than 2 weeks? Yes Potential Signs of Inflammation: chronic condition Education Materials Provided: None this visit Referred/Supervised by: Dr. Brown/Dr. Brown MNT Billing Type: Initial Assess/15 min [address] documented in this encounter [facility] 11-15-2024 Note HNO ID: [id number] Author: ENMANUEL PORTER RD Service: ? Author Type: Registered Dietitian Type: Progress Notes Filed: 11/15/2024 16:58 Note Text: GI Nutrition TeleHealth Consult - Initial Assessment I have communicated my name and active licensure. The patient?s identity and physical location were verified at the time of this visit. Either the patient or their legal care support representative has been informed of the risks and benefits of -- and alternatives to -- treatment through a remote evaluation and consents to proceed with the evaluation remotely Nutrition Diagnosis: Altered Gastrointestinal Tract Function, related to, Crohn's Disease, as evidenced by persistent and painful bloating . RECOMMENDED MALNUTRITION DIAGNOSIS: NO MALNUTRITION IDENTIFIED NUTRITION CARE PLAN Nutrition Intervention November 15, 2024 : Diet: --6 weeks EEN Vitamins/Minerals: --vitamin D once/week Oral supplements: --trial of protein supplements, will send samples Labs: --CRP and fecal calpro Nutrition Monitoring AND Evaluation: improvement in GI symptoms Criteria: per pt report Need for Follow up: 12/17 @3:15pm virtually This is a 39 year-old female with an underlying diagnosis of Crohn's Disease since 2010 who is followed by Dr. Brown. [facility] ileo-colonic resection, Hysterectomy. Currently with nausea, bloating and decreased appetite. Plan to continue Humria Q2, start xifaxian, drug levels, labs and vitamins, fecal stool stool test Today, patient reports the following: --she has been a little frustrated with her symptoms and did not have a good experience with the hysterectomy, had a hematoma for this --has gained some weight because she has not been working out as much --unsure if she is having some stricturing symptoms --she is having a little bit of relief on the abx (has been taking for 2 days) --typically fasts all day long (16 hours) and feels the best --feels like she has a malabsorption, has been more fatigued than usual as well and that is not like her Current Clinical Symptoms # of bowel movements daily: 1-3 times/day (more often but volume is lower) is not getting a lot of relief from bloating after she has bowel movements # of liquid stools daily: some Consistency: loose, soft, mucous Bloody bowel movements: no Urgency: no Abdominal pain: yes, generalized uncomfortable Abdominal distention: yes, bloating since the hysterectomy Nausea/vomiting: yes, all day long especially in the morning, zofran three times/day Heartburn/reflux: yes, lots of indigestion and burping Intake: she is hungry and wants to eat, typically fasts all day long Diet History: Lunch - skips this meal most of the time Snack - does not eat a lot of fruits, banana and apples not often, Dinner - does a lot of her own home cooking, does her caning, and raises her chickens and pigs and cows, has been trying to limit her intake around this meal, green beans, cooked carrots and peas, chicken rice and carrots, has been doing more mediterranean diet, nuts, and peanut butter, bread, chex mix Beverages - has changed to diet soda, water and jesusita drinks, coffee Vitamins/Supplements - --vitamin D 50,000/week Allergies/Intolerance: --pop (abd pain) --raw vegetables (abd pain and loose stools) -- Morphine Medications: Current Outpatient Medications Medication Sig Dispense Refill ergocalciferol 50,000 unit capsule (VITAMIN D2, DRISDOL) Take 1 capsule by mouth one time a week. 12 capsule 1 ondansetron (ZOFRAN) 4 mg tablet Take by mouth every 8 hours as needed for nausea/vomiting. glucagon (GLUCAGEN) 1 mg/mL injection Inject 1 mg intravenously one time only for 1 dose. For MRI Enterography, Inject 1 mg intravenously, as directed. Slow push at the appropriate time during MRI Scan 1 Each 0 ondansetron orally disintegrating (ZOFRAN ODT) 4 mg disintegrating tablet Take 1 tablet by mouth every 8 hours as needed for nausea/vomiting. 30 tablet 1 rifAXIMin (XIFAXAN) 550 mg tablet Take 1 tablet by mouth two times a day for 14 days. 28 tablet 0 rifAXIMin (XIFAXAN) 550 mg tablet Take 1 tablet by mouth three times a day for 14 days. 42 tablet 0 adalimumab-adaz (HYRIMOZ,CF, PEN) 40 mg/0.4 mL pen Inject 0.4 mL subcutaneously every 2 weeks. 2.4 mL 3 cyclobenzaprine (FLEXERIL) 5 mg tablet Take 1 tablet by mouth at bedtime as needed. 30 tablet 1 buPROPion SR (WELLBUTRIN SR) 150 mg 12 hr tablet TAKE 1 TABLET BY MOUTH TWICE A DAY 180 tablet 1 ondansetron orally disintegrating (ZOFRAN ODT) 4 mg disintegrating tablet Take 1 tablet by mouth every 8 hours as needed. 8 tablet 0 senna (SENOKOT) 8.6 mg tab Take 1 tablet by mouth two times a day. (Patient not taking: Reported on 02/01/2024) 30 tablet 0 acetaminophen (TYLENOL EXTRA STRENGTH) 500 mg tablet Take 2 tablets by mouth every 8 hours. 60 tablet 0 25/iron fum/folic/dha (-1 ORAL) Take by mouth. COLLAGEN MISC adalimumab 40 mg/0.4 mL subc (more content not included)... [facility] 11-13-2024 Telephone encounter Note Patient calling stating that she was supposed to get schedule for a colonoscopy but is unable to schedule with you until 6 months out from now. She was under the impression you wanted her scheduled within two months and would like to know how to proceed. Patient stated whatever date you can give her she will take and make it work Patient #[phone] [facility] 11-13-2024 Miscellaneous Notes Patient calling stating that she was supposed to get schedule for a colonoscopy but is unable to schedule with you until 6 months out from now. She was under the impression you wanted her scheduled within two months and would like to know how to proceed. Patient stated whatever date you can give her she will take and make it work Patient #[phone] documented in this encounter [facility] 11-13-2024 Telephone encounter Note Requested Prescriptions Pending Prescriptions Disp Refills rifAXIMin (XIFAXAN) 550 mg tablet 42 tablet 0 Sig: Take 1 tablet by mouth three times a day for 14 days. ondansetron orally disintegrating (ZOFRAN ODT) 4 mg disintegrating tablet 30 tablet 1 Sig: Take 1 tablet by mouth every 8 hours as needed for nausea/vomiting. Order pended & routed to Dr. Brown for review / approval. [facility] pharmacy selected. Secure Chat Message received from AA: Patient charito was seen today, she is still here. Medication was order for her but her [facility] pharmacy does not carry it for the zofran and xifaxan. She would like it to be sent to the pharmacy downstairs on the 2nd floor. The scheduling team attempted to reach out as well regarding this. Ankita Cleveland RN November 13, 2024 10:17 AM [facility] 11-13-2024 Miscellaneous Notes Requested Prescriptions Pending Prescriptions Disp Refills rifAXIMin (XIFAXAN) 550 mg tablet 42 tablet 0 Sig: Take 1 tablet by mouth three times a day for 14 days. ondansetron orally disintegrating (ZOFRAN ODT) 4 mg disintegrating tablet 30 tablet 1 Sig: Take 1 tablet by mouth every 8 hours as needed for nausea/vomiting. Order pended & routed to Dr. Brown for review / approval. [facility] pharmacy selected. Secure Chat Message received from AA: Patient charito was seen today, she is still here. Medication was order for her but her [facility] pharmacy does not carry it for the zofran and xifaxan. She would like it to be sent to the pharmacy downstairs on the 2nd floor. The scheduling team attempted to reach out as well regarding this. Ankita Cleveland RN November 13, 2024 10:17 AM documented in this encounter [facility] 11-13-2024 Telephone encounter Note Pended Orders ID Status Description Pended By When Reason [id number] Pended CONSULT TO PSYCHOLOGY Ankita Cleveland RN 11/13/24 0948 Order pended & routed to Dr. Brown for review / approval. Ankita Cleveland RN November 13, 2024 9:48 AM [facility] 11-13-2024 Miscellaneous Notes Pended Orders ID Status Description Pended By When Reason [id number] Pended CONSULT TO PSYCHOLOGY Ankita Cleveland RN 11/13/24 0948 Order pended & routed to Dr. Brown for review / approval. Ankita Cleveland RN November 13, 2024 9:48 AM ----- Message from Iila Elizabeth PA-C sent at 11/13/2024 9:02 AM EST ----- Good morning Ankita Cleveland, Will need a referral for IBD psych for this patient Thanks! Ilia Elizabeth PA-C documented in this encounter [facility] 11-13-2024 Telephone encounter Note ----- Message from Ilia Elizabeth PA-C sent at 11/13/2024 9:02 AM EST ----- Good morning Ankita Cleveland, Will need a referral for IBD psych for this patient Thanks! Ilia Elizabeth PA-C [facility] 11-13-2024 Instructions Ilia Elizabeth PA-C - 11/13/2024 8:37 AM EST - Continue Humira - Start rifaxamin - Check Humira drug level today - Check IBD labs and vitamins - Check Fecal bob stool test - Get Breath test - Schedule colonoscopy/EGD - Schedule MRE - consult to IBD psych, nutrition, and rheumatology - Follow up in 2 months with Pedro LAWSON unless needed sooner COLONOSCOPY BOWEL PREPARATION INSTRUCTIONS MiraLAX Your doctor has scheduled you for a colonoscopy. To have a successful colonoscopy, you must have a clean colon, that is empty. A clean colon allows your doctor to see the entire colon & diagnose issues like polyps or cancer. For doctors, a clean colon is like driving on a cameron day; a dirty colon like driving in a storm. It is very important that you follow these instructions exactly, or your colonoscopy may not be as effective, could be canceled, and you may need to do the bowel prep and colonoscopy again. TRANSPORTATION REQUIREMENTS You are receiving IV sedation. For your safety, a responsible adult escort must accompany you to and from your procedure: Your adult escort MUST be present with you at check-in for your colonoscopy. Your adult escort MUST remain in the endoscopy area until you are discharged. Your adult escort MUST transport you home once you are discharged. You are NOT allowed to operate any form of transportation (i.e. drive a car, bicycle, etc) or leave the Endoscopy Center ALONE. It is not safe to do so. If you cannot meet these requirements, your procedure will be canceled. MEDICATION REQUIREMENTS For your safety, certain medications will need to be stopped or adjusted before you can have your procedure: BLOOD THINNERS: If you take blood thinners, such as Coumadin (warfarin), Plavix (clopidogrel), Ticlid (ticlopidine hydrochloride), Agrylin (anagrelide), Xarelto (Rivaroxaban), Pradaxa (Dabigatran), Eliquis (Apixaban), or Effient (Prasugrel), contact the physician who is prescribing these medications at least 2 weeks prior to your procedure to discuss any necessary adjustments. DIABETES: If you take medications for diabetes, your dosage may need to be adjusted. If you are being treated for diabetes with insulin, diabetic pills, or other injectable medications do not take your REGULAR dose after midnight on the day of your procedure. If you are taking any other types of insulin such as Lantus, Humalog, NPH (long-acting insulin), or 70/30 insulin, take half your normal dose the day before your procedure. DIABETES/WEIGHT MANAGEMENT: If you take medications for weight-loss, your dosage may need to be adjusted Contact the doctor who prescribes this medication for further instructions. If you take medications for weight-loss like semaglutide (Ozempic, Wegovy, Rybelsus), dulaglutide (Trulicity), liraglutide (Victoza, Saxenda), exenatide (Byetta, Bydureon), or lixisenatide (Adylyxin), stop your medication 1 week prior to your procedure. If you take medications like canagliflozin (Invokana), dapagliflozin (Farxiga, Forxiga), empagliflozin (Jardiance), stop your medication 3 days prior to your procedure. If you take ertugliflozin (Steglatro) stop your medication 4 days prior to your procedure. IRON: If you take iron pills, STOP them 1 week BEFORE your procedure, may resume after. OTHER MEDS: May take all other medications (including aspirin, antibiotics, water pills / diuretics like Lasix or Metolozone, blood pressure meds, etc.) at their usual scheduled time with water. DIET REQUIREMENTS The day before your colonoscopy, you may have a clear liquid diet (see below). The day of your colonoscopy, you may continue a clear liquid diet until 3 hours before your colonoscopy. Within 3 hours of your colonoscopy, take only any medications (as above) with a sip of water. Clear Liquid Diet Broth (chicken, beef or vegetable broth or bullion. Just the broth, no solids). Water Coffee or Tea (NO milk or creamer), but sugar and sugar substitutes are allowed. Clear liquids including clear, yellow, green, blue (NO red, NO orange, NO purple) Sodas / soft drinks; Gatorade or other sports drinks Fruit juice (strained; no-pulp); Brandon-Aid or flavored drinks Plain Jell-O or other gelatins Popsicles or hard candy Bowel prep can work differently from person to person. Some people's bowels move slowly and they may need different instructions. Please see your doctor in office or virtually for personalized bowel prep instructions if you have: BOWEL PREPARATION (MIRALAX/GATORADE) Split Dosing Bowel Prep: This means drinking your bowel prep in two doses. Split dosing helps clean your colon better and makes it less likely that your procedure will be canceled. You will need to purchase the following (no prescriptions are needed): 64 ounces Gatorade, Propel, Crystal Lite or other noncarbonated clear liquid sports drink (NOT red, orange, or purple). Diabetic patients buy sugar-free, e.g. Gatorade G2 4 Dulcolax laxative tablets containing 5mg bisacodyl each (do not buy the stool softener) 8.3 oz MiraLAX (238g) powder or generic polyethylene glycol 3350 (find in laxative aisle) The day before your colonoscopy mix 64 oz of the sports drink with 8.3 oz MiraLAX (238 g) in a pitcher. Stir or shake until MiraLAX completely dissolved. Chill if desired. On the evening before your colonoscopy: 5 PM take 4 Dulcolax laxative tablets with water by mouth. 6 PM drink the first half of the Gatorade/MiraLAX solution Drink one 8-ounce glass every 15 minutes. Six hours before your colonoscopy, drink the second half of the solution. Drink one 8-ounce glass every 15 minutes. You may continue a clear liquid diet until 3 hours before your colonoscopy. Bowel prep can work differently from person to person. Some people's bowels move slowly and they may need different instructions. Please see your doctor in office or virtually for personalized bowel prep instructions if you have: Medical condition that needs special accommodations Had a poor bowel prep results or failed bowel prep attempts in the past. Had difficulty with anesthesia during the procedure. FREQUENTLY ASKED QUESTIONS Q: What if I suffer from constipation? A: Recommend taking extra laxatives to resolve your constipation days prior to entering the bowel prep day. Q: What if have had prior poor preps results in past? A: Contact your physician as you will likely need additional bowel prep instructions. Q: What if I have motility issues like Parkinson's, MS (multiple sclerosis), wheelchair dependent, etc.? or on medications that slow colonic transit times (narcotics, gabapentin, anticholinergic medications etc.) A: Contact your physician as you will likely need extra time and additional laxatives to complete your bowel prep. Q: What if I cannot drink large volume of liquid? A: Start your prep 2-3 hours earlier to allow yourself more time to complete the entire prep. Q: What if I had bariatric surgery? Do I still have to complete the entire prep? A: Yes, gastric bypass surgery involves the stomach & small bowel. You may need to drink smaller amounts, slower (may need more time to complete your bowel prep). Gastric bypass does not alter the length of your colon so you will need to complete the entire bowel prep, it may just take longer time to complete it. Q: What if I am on dialysis? A: Please consult your table cut off saw operator prior to scheduling to get instructions pertinent to you. In general, dialysis patients take the [employer] bowel prep and have the procedure same day of their dialysis (colonoscopy in AM, dialysis in PM). Q: How do I know if something is considered as clear liquid diet? A: If you can pour it in a glass and you can see through it, it is considered clear liquid Q: Can I eat nuts, seeds, beans, popcorn, dried fruits, vegetables & fruits that have skin peel? A: No, you will need to not eat these items starting 3 days prior to procedure. Q: Can I take Uber/Lyft/taxi/bus home? A: An adult MUST be present with you at check-in for your colonoscopy and remain in the endoscopy area until you are discharged. You can take Uber home only if this adult escort is with you at check in, remain in the endoscopy area until you are discharged, and takes the Uber with you to home. Q: Can I sleep it off here and drive myself home? A: No, you must have an adult with you at time of procedure check in, remain in the endoscopy center during your procedure, and drive you home. You cannot drive a vehicle after your procedure the rest of the day. Q: What if I can't finish my bowel prep? A: If you cannot complete your entire bowel prep, there is high likelihood that your colonoscopy will need to be rescheduled due to inadequate prep quality. documented in this encounter [facility] 11-13-2024 Note HNO ID: [id number] Author: LAMONT BROWN MD Service: ? Author Type: Physician Type: Progress Notes Filed: 11/13/2024 22:38 Note Text: .Follow Up Visit SUBJECTIVE 39 year old female with Crohn's disease here for follow-up. Last seen 06/08/2024. Changes and test results since last visit: On Humira. Last dose was 2 weeks ago. Has missed couple doses due to insurance Currently not doing well from GI standpoint. Reports she was doing great after ileo-colonic resection and colonoscopy in 08/2023. However after undergoing Hysterectomy in Nov 2023 symptoms such as nausea and abdominal bloating began to arise. Symptoms worsened one month ago. Reports abdominal bloating, nausea, fatigue, and thin/flat mucous stools. Feels very miserable. Wants to eat but can't because symptoms get worse so she started fasting 16 hours a day. PCP started her on steroids two weeks ago and has had minimal to no relief. She is passing gas and blenching. Takes zofran as needed. Denies fever, chills, bloody stools. Current Clinical Symptoms # of bowel movements daily: 1-3 # of liquid stools daily: not often Consistency: mushy Bloody bowel movements: no Urgency: no Abdominal pain: yes Abdominal distention: yes Nausea/vomiting: yes Weight loss over last 3 months: no General well-being: poor EIMs: joint pain Denies NSAIDs Admits to smoking Reviewed Items: COLONOSCOPY (09/22/2023): IMPRESSION: - Patent Kono-S ileo-colonic anastomosis, characterized by healthy appearing mucosa. - Crohn's disease, in remission. Biopsied. - Simple Endoscopic Score for Crohn's Disease: 0, mucosal inflammatory changes secondary to Crohn's disease, in remission. Biopsied. PATHOLOGY: FINAL DIAGNOSIS A. Ileum, biopsy: - Small intestinal mucosa with mild reactive changes. - No evidence of significant active inflammation, granulomas or dysplasia. B-D. Colon, transverse, left and rectum, biopsies: - Colonic mucosa with no significant diagnostic abnormality. - No evidence of granulomas or dysplasia. MRI FEMALE PELVIS (07/12/2023): IMPRESSION: NO FOCI OF ENDOMETRIOSIS OR DEEP INFILTRATIVE ENDOMETRIOSIS IDENTIFIED. NO ACUTE FINDINGS IN THE PELVIS. COLONOSCOPY 12/03/2022 IMPRESSION: - Stricture at the ileocecal valve could not be traversed. - One 4 mm polyp in the sigmoid colon, removed with a cold biopsy forceps. Resected and retrieved. - The examination was otherwise normal. - Biopsies were taken with a cold forceps for histology in the descending colon, in the transverse colon and in the ascending colon. PATHOLOGY FINAL DIAGNOSIS A. Sigmoid colon polyp, biopsy: - Colonic mucosa with minimal hyperplastic changes, negative for dysplasia. B. Random colon, biopsy: - Colonic mucosa with no diagnostic abnormality. CT ABD/Pel 03/07/2023 IMPRESSION: Postoperative changes with no acute process in the abdomen or pelvis. MRE 08/13/2022 IMPRESSION: STRICTURE WITH IMAGING FINDINGS OF ACTIVE INFLAMMATION INVOLVING AN APPROXIMATELY 4 CM SEGMENT OF TERMINAL ILEUM. PENETRATING DISEASE: ABSENT. BILATERAL SACROILIITIS. CBC: WBC (k/uL) Date Value 12/23/2023 13.91 (H) Hematocrit (%) Date Value 12/23/2023 28.3 (L) MCV (fL) Date Value 12/23/2023 95.9 Platelet Count (k/uL) Date Value 12/23/2023 259 Lymphocytes % (%) Date Value 12/09/2023 24.1 Hepatic Function Panel: Albumin (g/dL) Date Value 12/09/2023 4.3 Bilirubin, Total (mg/dL) Date Value 12/09/2023 0.3 Alkaline Phosphatase (U/L) Date Value 12/09/2023 47 AST (U/L) Date Value 12/09/2023 20 ALT (U/L) Date Value 12/09/2023 13 Protein, Total (g/dL) Date Value 12/09/2023 7.0 Current Outpatient Medications Medication Sig Dispense Refill adalimumab-adaz (HYRIMOZ,CF, PEN) 40 mg/0.4 mL pen Inject 0.4 mL subcutaneously every 2 weeks. 2.4 mL 3 cyclobenzaprine (FLEXERIL) 5 mg tablet Take 1 tablet by mouth at bedtime as needed. 30 tablet 1 buPROPion SR (WELLBUTRIN SR) 150 mg 12 hr tablet TAKE 1 TABLET BY MOUTH TWICE A DAY 180 tablet 1 ondansetron orally disintegrating (ZOFRAN ODT) 4 mg disintegrating tablet Take 1 tablet by mouth every 8 hours as needed. 8 tablet 0 senna (SENOKOT) 8.6 mg tab Take 1 tablet by mouth two times a day. (Patient not taking: Reported on 02/01/2024) 30 tablet 0 acetaminophen (TYLENOL EXTRA STRENGTH) 500 mg tablet Take 2 tablets by mouth every 8 hours. 60 tablet 0 25/iron fum/folic/dha (-1 ORAL) Take by mouth. COLLAGEN MISC adalimumab 40 mg/0.4 mL subcutaneous pen kit (HUMIRA (CF)) Inject 40 mg (1 pen) subcutaneously every 2 weeks. 6 Each 3 nicotine (NICODERM) 7 mg/24 hr Apply 1 Patch as directed every 24 hours. 28 Patch 5 nicotine polacrilex (NICORETTE) 4 mg gum Take 1 Each by mouth every 2 hours as needed. 100 Each 5 No current facility-administered medications for this visit. ALLERGIES Allergen Reactions Morphine Other: See Comments There i (more content not included)... [facility] 11-13-2024 History of Present illness Narrative .Follow Up Visit SUBJECTIVE 39 year old female with Crohn's disease here for follow-up. Last seen 06/08/2024. Changes and test results since last visit: On Humira. Last dose was 2 weeks ago. Has missed couple doses due to insurance Currently not doing well from GI standpoint. Reports she was doing great after ileo-colonic resection and colonoscopy in 08/2023. However after undergoing Hysterectomy in Nov 2023 symptoms such as nausea and abdominal bloating began to arise. Symptoms worsened one month ago. Reports abdominal bloating, nausea, fatigue, and thin/flat mucous stools. Feels very miserable. Wants to eat but can't because symptoms get worse so she started fasting 16 hours a day. PCP started her on steroids two weeks ago and has had minimal to no relief. She is passing gas and blenching. Takes zofran as needed. Denies fever, chills, bloody stools. Current Clinical Symptoms # of bowel movements daily: 1-3 # of liquid stools daily: not often Consistency: mushy Bloody bowel movements: no Urgency: no Abdominal pain: yes Abdominal distention: yes Nausea/vomiting: yes Weight loss over last 3 months: no General well-being: poor EIMs: joint pain Denies NSAIDs Admits to smoking Reviewed Items: COLONOSCOPY (09/22/2023): IMPRESSION: - Patent Kono-S ileo-colonic anastomosis, characterized by healthy appearing mucosa. - Crohn's disease, in remission. Biopsied. - Simple Endoscopic Score for Crohn's Disease: 0, mucosal inflammatory changes secondary to Crohn's disease, in remission. Biopsied. PATHOLOGY: FINAL DIAGNOSIS A. Ileum, biopsy: - Small intestinal mucosa with mild reactive changes. - No evidence of significant active inflammation, granulomas or dysplasia. B-D. Colon, transverse, left and rectum, biopsies: - Colonic mucosa with no significant diagnostic abnormality. - No evidence of granulomas or dysplasia. MRI FEMALE PELVIS (07/12/2023): IMPRESSION: NO FOCI OF ENDOMETRIOSIS OR DEEP INFILTRATIVE ENDOMETRIOSIS IDENTIFIED. NO ACUTE FINDINGS IN THE PELVIS. COLONOSCOPY 12/03/2022 IMPRESSION: - Stricture at the ileocecal valve could not be traversed. - One 4 mm polyp in the sigmoid colon, removed with a cold biopsy forceps. Resected and retrieved. - The examination was otherwise normal. - Biopsies were taken with a cold forceps for histology in the descending colon, in the transverse colon and in the ascending colon. PATHOLOGY FINAL DIAGNOSIS A. Sigmoid colon polyp, biopsy: - Colonic mucosa with minimal hyperplastic changes, negative for dysplasia. B. Random colon, biopsy: - Colonic mucosa with no diagnostic abnormality. CT ABD/Pel 03/07/2023 IMPRESSION: Postoperative changes with no acute process in the abdomen or pelvis. MRE 08/13/2022 IMPRESSION: STRICTURE WITH IMAGING FINDINGS OF ACTIVE INFLAMMATION INVOLVING AN APPROXIMATELY 4 CM SEGMENT OF TERMINAL ILEUM. PENETRATING DISEASE: ABSENT. BILATERAL SACROILIITIS. CBC: WBC (k/uL) Date Value 12/23/2023 13.91 (H) Hematocrit (%) Date Value 12/23/2023 28.3 (L) MCV (fL) Date Value 12/23/2023 95.9 Platelet Count (k/uL) Date Value 12/23/2023 259 Lymphocytes % (%) Date Value 12/09/2023 24.1 Hepatic Function Panel: Albumin (g/dL) Date Value 12/09/2023 4.3 Bilirubin, Total (mg/dL) Date Value 12/09/2023 0.3 Alkaline Phosphatase (U/L) Date Value 12/09/2023 47 AST (U/L) Date Value 12/09/2023 20 ALT (U/L) Date Value 12/09/2023 13 Protein, Total (g/dL) Date Value 12/09/2023 7.0 Current Outpatient Medications Medication Sig Dispense Refill adalimumab-adaz (HYRIMOZ,CF, PEN) 40 mg/0.4 mL pen Inject 0.4 mL subcutaneously every 2 weeks. 2.4 mL 3 cyclobenzaprine (FLEXERIL) 5 mg tablet Take 1 tablet by mouth at bedtime as needed. 30 tablet 1 buPROPion SR (WELLBUTRIN SR) 150 mg 12 hr tablet TAKE 1 TABLET BY MOUTH TWICE A DAY 180 tablet 1 ondansetron orally disintegrating (ZOFRAN ODT) 4 mg disintegrating tablet Take 1 tablet by mouth every 8 hours as needed. 8 tablet 0 senna (SENOKOT) 8.6 mg tab Take 1 tablet by mouth two times a day. (Patient not taking: Reported on 02/01/2024) 30 tablet 0 acetaminophen (TYLENOL EXTRA STRENGTH) 500 mg tablet Take 2 tablets by mouth every 8 hours. 60 tablet 0 25/iron fum/folic/dha (-1 ORAL) Take by mouth. COLLAGEN MISC adalimumab 40 mg/0.4 mL subcutaneous pen kit (KENNY (CF)) Inject 40 mg (1 pen) subcutaneously every 2 weeks. 6 Each 3 nicotine (NICODERM) 7 mg/24 hr Apply 1 Patch as directed every 24 hours. 28 Patch 5 nicotine polacrilex (NICORETTE) 4 mg gum Take 1 Each by mouth every 2 hours as needed. 100 Each 5 No current facility-administered medications for this visit. ALLERGIES Allergen Reactions Morphine Other: See Comments There is no immunization history on file for this patient. PHYSICAL EXAMINATION LMP 12/03/2023 General Appearance: alert, oriented x 3, pleasant and in no acute distress Heart:regular rate and rhythm, no murmurs or gallops Lungs: clear & equal BL Abdomen: Not distended. Normal bowel sounds. Soft and non-tender. No masses or organomegaly. Skin: no rashes or lesions Assessment IMPRESSION (portions of this note have been copied from ... prior note and updated to reflect medical decision making today) Patient is a 39 year old female with PMHx of ankylosing spondylitits and Crohns (diagnosed in 2010). Was previously on Humira for both the spondylitis and Crohn's. Then developed worsening symptoms and was found to have a stricture. She underwent a ileocolic resection with Kono S anastomosis in January 2023. Last colonoscopy (08/2023) revealed Patent Kono-S ileo-colonic anastomosis, Crohn's disease in remission, Simple Endoscopic Score for Crohn's Disease: 0. Had hysterectomy Nov 2023. Patient presents today with complaints of worsening symptoms. Was doing great after ileo-colonic resection and colonoscopy in 08/2023, but started noticing nausea, abdominal bloating, mucous stools after hysterectomy (Nov 2023). Symptoms have worsened over the past month despite being on steroids for two weeks which were given by PCP. She is currently on Humira for both ankylosing spondylitits and Crohns. Will plan to check Humira drug level and IBD labs/fecal bob today. Will plan for glucose breath test to check for SIBO. In the meantime, will prescribe Rifaximin to see if symptoms resolve. Will plan to proceed with EGD/Colonoscopy and MRE to reevaluate treatment response. Will place a consult to IBD psych, nutrition, and rheumatology. Can take zofran as needed. Follow up in 2 months with Pedro LAWSON unless needed sooner PLAN - Continue Humira q 2 weeks - Start rifaxamin - Take Zofran as needed - Check Humira drug level today - IBD labs and vitamins - Fecal bob stool test - Get Glucose Breath test - Schedule colonoscopy/EGD - Schedule MRE - Consult to shoe turner, rheumatology, and IBD psych - Follow up in 2 months with Pedro LAWSON unless needed sooner Ilia Elizabeth PA-C I reviewed and agree with the assessment as documented above. Patient care delivered with direct supervision in accordance with treatment plan. 39 yo woman history of ankylosing spondylitis diagnosed in 2000, active smoking and stricturing ileocolonic CD diagnosed in 2012 who was taking humira episodically for (most recently in June 2022 when she had level 4.5 without antibodies) s/p ICR with Kono-S anastomosis 01/2023 due to impassable stricture with surgical pathology also showing endometriosis. Post-op colonoscopy [facility] i0 in Aug 2023 though with some increased symptoms, particularly bloating in the last several months and after hysterectomy. Patient has been on humira q2w though with some intermittent missed doses. Plan to restage disease with MRE, EGD, Colonoscopy. Will also give trial rifaximin for possible SIBO given bloating component. Plan to have re-establish with medical home team. Medical Decision Making: Problems: Moderate: 1+ chronic illnesses with change Data: Unique test(s) ordered: 3+ Risk: Moderate: Moderate risk from testing/treatment High: Drug therapy requiring intensive monitoring Medical Decision Making Level: 4 - Moderate Lamont Brown MD, MAS (Signed electronically to expedite mailing) Lamont Brown MD November 13, 2024 7:50 AM documented in this encounter [facility] 06-27-2024 History of Present illness Narrative ASSESSMENT/PLAN: 1. Ankylosing spondylitis, unspecified site of spine (HCC) - ICD9: 720.0, ICD10: M45.9 (primary diagnosis) 2. Crohn's disease with complication, unspecified gastrointestinal tract location (HCC) - ICD9: 555.9, ICD10: K50.919 - referral to establish care and rule out possible uveitis. Both eyes quiet today. No signs of previous episodes of uveitis both eyes today. - educated patient on signs and symptoms of uveitis and to call with any new pain, redness or light sensitivity. 3. Regular astigmatism of both eyes - ICD9: 367.21, ICD10: H52.223 - glasses prescription given. Ok to continue with prescription. Sai Corbin, MARCEL I have confirmed and edited as necessary the relevant ophthalmic history, ROS, and the exam findings as obtained by others. I have seen and examined this patient. I have discussed the case and the management of this patient's care with the resident or fellow as appropriate. I also have reviewed and agree with the assessment and plan as stated above and agree with all of its relevant components. June 27, 2024 8:52 AM documented in this encounter [facility] 03-23-2024 Telephone encounter Note Called patient and verified name and Pharmacy refill request Patient explained that she does not need a refill. This RN provided appointment telephone number to patient to schedule visit Refill(s) request: Requested Prescriptions Pending Prescriptions Disp Refills cyclobenzaprine (FLEXERIL) 5 mg tablet [Pharmacy Med Name: CYCLOBENZAPRINE 5 MG TABLET] 30 tablet 1 Sig: take 1 tablet by mouth every day at bedtime as needed Request from: Pharmacy Last order: 01/06/2024 Last visit: Virtual Visit 01/06/2024 with Mayra Ibarra APRN.SHELL MOLD BONDER Assessment and Plan Encounter Diagnosis ICD-10-CM 1. Post-operative state Z98.890 cyclobenzaprine (FLEXERIL) 5 mg tablet 2. Adenomyosis N80.03 3. Endometriosis determined by laparoscopy N80.9 1) Discussed results of pathology and implications with patient. 2) Postop restrictions and wound care reviewed. 3) Keep follow up with Dr. Polanco on 02/01/24. Future appointments: Future Appointments Date Time Provider Department Center 06/27/2024 8:00 AM Sai Corbin, MARCEL [place] Appointment scheduled: No follow-up visit currently scheduled. Action taken: Patient does not need a refill Sanam Gonzales RN March 23, 2024 8:26 AM [facility] 03-23-2024 Miscellaneous Notes Called patient and verified name and Pharmacy refill request Patient explained that she does not need a refill. This RN provided appointment telephone number to patient to schedule visit Refill(s) request: Requested Prescriptions Pending Prescriptions Disp Refills cyclobenzaprine (FLEXERIL) 5 mg tablet [Pharmacy Med Name: CYCLOBENZAPRINE 5 MG TABLET] 30 tablet 1 Sig: take 1 tablet by mouth every day at bedtime as needed Request from: Pharmacy Last order: 01/06/2024 Last visit: Virtual Visit 01/06/2024 with Mayra Ibarra APRN.CNP Assessment and Plan Encounter Diagnosis ICD-10-CM 1. Post-operative state Z98.890 cyclobenzaprine (FLEXERIL) 5 mg tablet 2. Adenomyosis N80.03 3. Endometriosis determined by laparoscopy N80.9 1) Discussed results of pathology and implications with patient. 2) Postop restrictions and wound care reviewed. 3) Keep follow up with Dr. Polanco on 02/01/24. Future appointments: Future Appointments Date Time Provider Department Center 06/27/2024 8:00 AM Sai Corbin OD [facility] Appointment scheduled: No follow-up visit currently scheduled. Action taken: Patient does not need a refill Sanam Gonzales RN March 23, 2024 8:26 AM Attempted to call patient Left voicemail Pharmacy refill request Wanted to know how patient is doing and if medication is helping Instructed patient to call office back Virtual Visit: 01/06/2024 with Mayra Ibarra APRN.SHELL MOLD BONDER Assessment and Plan Encounter Diagnosis ICD-10-CM 1. Post-operative state Z98.890 cyclobenzaprine (FLEXERIL) 5 mg tablet 2. Adenomyosis N80.03 3. Endometriosis determined by laparoscopy N80.9 1) Discussed results of pathology and implications with patient. 2) Postop restrictions and wound care reviewed. 3) Keep follow up with Dr. Polanco on 02/01/24. Refill(s) request: Requested Prescriptions Pending Prescriptions Disp Refills cyclobenzaprine (FLEXERIL) 5 mg tablet [Pharmacy Med Name: CYCLOBENZAPRINE 5 MG TABLET] 30 tablet 1 Sig: take 1 tablet by mouth every day at bedtime as needed Request from: Pharmacy Last order: 01/06/2024 Last visit: Distance visit with provider Mayra Ibarra on date 01/06/2024 Future appointments: Future Appointments Date Time Provider Department Center 06/27/2024 8:00 AM Sai Corbin OD [facility] Appointment scheduled: No follow-up visit currently scheduled. Action taken: Left voicemail for patient to call office back Sanam Gonzales RN March 07, 2024 2:49 PM documented in this encounter [facility] 03-09-2024 Miscellaneous Notes Requested Prescriptions Pending Prescriptions Disp Refills adalimumab-adaz (HYRIMOZ,CF, PEN) 40 mg/0.4 mL pen 2.4 mL 3 Sig: Inject 0.4 mL subcutaneously every 2 weeks. Order pended & routed to Pedro Israel PA-C for review / approval. EDWIN Duffy RN March 09, 2024 3:40 PM [employer] requesting Humira switch to Biosimilar -Hyrimoz - please send to [facility], does not need new PA [employer]: [phone] Amanda direct line documented in this encounter [facility] 03-07-2024 Telephone encounter Note Attempted to call patient Left voicemail Pharmacy refill request Wanted to know how patient is doing and if medication is helping Instructed patient to call office back Virtual Visit: 01/06/2024 with Mayra Ibarra APRN.SHELL MOLD BONDER Assessment and Plan Encounter Diagnosis ICD-10-CM 1. Post-operative state Z98.890 cyclobenzaprine (FLEXERIL) 5 mg tablet 2. Adenomyosis N80.03 3. Endometriosis determined by laparoscopy N80.9 1) Discussed results of pathology and implications with patient. 2) Postop restrictions and wound care reviewed. 3) Keep follow up with Dr. Polanco on 02/01/24. Refill(s) request: Requested Prescriptions Pending Prescriptions Disp Refills cyclobenzaprine (FLEXERIL) 5 mg tablet [Pharmacy Med Name: CYCLOBENZAPRINE 5 MG TABLET] 30 tablet 1 Sig: take 1 tablet by mouth every day at bedtime as needed Request from: Pharmacy Last order: 01/06/2024 Last visit: Distance visit with provider Mayra Ibarra on date 01/06/2024 Future appointments: Future Appointments Date Time Provider Department Center 06/27/2024 8:00 AM Sai Corbin, OD [facility] Appointment scheduled: No follow-up visit currently scheduled. Action taken: Left voicemail for patient to call office back Sanam Gonzales RN March 07, 2024 2:49 PM [facility] 02-01-2024 History of Present illness Narrative Images from the original note were not included. [facility] [place] SECTION FOR MINIMALLY INVASIVE GYNECOLOGIC SURGERY OUTPATIENT [...] Scribe Attestation: By signing my name below, IBeth, attest that this documentation has been prepared under the direction and in the presence of Dr. Adrien Polanco MD. Electronically Signed:deisi Day, January 31, 2024 10:08 AM I agree with the Chief Complaint, ROS, and Past Histories independently gathered by the clinical support clerk and the remaining scribed note accurately describes my personal service to the patient. Adrien Landers MD documented in this encounter [facility] 02-01-2024 Instructions Beth Bingham - 02/01/2024 10:15 AM EST FIELD OPERATIONS COORDINATOR [phone] OFFICE [phone] [id number] YIELD CLERK [facility] CLINIC SURGICAL SCHEDULERS If you have any additional questions or concerns not covered in today's visit, I encourage you to reach out via idio messaging. Please note that [employer] inquiries may take up to 3 days to be answered by on-call staff, and may not be reviewed by your physician until after the message has been triaged. documented in this encounter [facility] 01-20-2024 Miscellaneous Notes Duplicate encounter, issue already escalated to proper channel. Emy Denis RN January 20, 2024 2:49 PM documented in this encounter [facility] 01-06-2024 History of Present illness Narrative Images from the original note were not included. [facility] [place] Department of Minimally Invasive YIELD CLERK Surgery [facility] PATIENT NAME: Jocelyne Lucas DATE: 01/06/2024 Patient Name and verified: Yes Patient Location: [place] This Virtual Visit was completed using My Chart Zoom platform. I have communicated my name and active licensure. The patient's identity and physical location were verified at the time of this visit. Either the patient or their legal care support representative has been informed of the risks and benefits of -- and alternatives to -- treatment through a remote evaluation and consents to proceed with the evaluation remotely. Chief Complaint CC/REASON FOR VISIT: Post Op History of Present Illness: Jocelyne is a 38 year old who presents for a post op [facility] visit. SURGERY & DATE: LAPAROSCOPIC HYSTERECTOMY [...] Phone 01/06/2024 8:30 AM MAYRA IBARRA A [facility] [phone] 02/01/2024 11:30 AM ADRINE CRUZ A [facility] [phone] 02/06/2024 8:30 AM PEDRO LUIS BAILEY A [facility] [phone] SIGNATURE: Mayra Ibarra APRN.CNP documented in this encounter [facility] 01-04-2024 Miscellaneous Notes Images from the original note were not included. documented in this encounter [facility] 11-14-2023 Miscellaneous Notes Images from the original note were not included. documented in this encounter [facility] 10-18-2023 Instructions Pedro Luis Bailey APRN.CNP [...] DO NOT HEAR FROM SOMEONE, Please call [phone] SMOKING CESSATION Stopping smoking is the most [...] desirable brand of cigarettes. ___ Discard your residential program director. Use matches. Carry your cigarettes in a [...] why you quit. Also remember that a [employer] industry spends billions of dollars each year [...] of children. Store at room temperature in camp advisor s packaging until ready to use. Throw [...] magnetic resonance imaging (MRI) procedure, tell your pyrotechnician if you have this patch on your [...] all your medications. documented in this encounter [facility] 10-18-2023 History of Present illness Narrative Images from the original note were not included. [facility] SMOKING CESSATION PROGRAM CONSULT NOTE I will communicate the consult note back to the requesting health care provider by way of the shared medical record for internal providers or letter via the [employer] or [employer] for external providers. October 18, 2023 CONSULTING PHYSICIAN/REFERRAL: Monica Be [address] [facility] [id number] REASON FOR CONSULT/REFERRAL: Tobacco Cessation Treatment HPI: [...] smoke at all. 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 She [...] OF PRIOR TOBACCO TREATMENT: Yes TREATMENT: Cold [place] TRIGGERS: Alcohol, Stress, and boredom PMH: PAST [...] which included preparing to see the patient, [id number] patient care, completing clinical documentation, obtaining and/or reviewing separately obtained history, performing a medically appropriate examination, counseling and educating the patient/family/caregiver, ordering medications, tests, or procedures, communicating with other HCPs (not separately reported), independently interpreting results (not separately reported), communicating results to the patient/family/caregiver, and care coordination (not separately reported). Pedro Luis Bailey APRN.SHELL MOLD BONDER Pulmonary & Critical Care Medicine [facility] [place] October 18, 2023 2:34 PM CC Monica Be [address] [facility] [facility] [id number] and Brenda Landon MD via [employer] documented in this encounter [facility] 10-18-2023 History of Present illness Narrative [facility] [place], [place] Department of Hematologic Oncology and Blood Disorders PATIENT NAME: Jocelyne [facility] NO: [id number] ATTENDING PHYSICIAN: Gautam Vazquez MD. DATE OF SERVICE: 10/18/[address] Joshua Shaffer for an opinion regarding antiphospholipid syndrome. [...] which included preparing to see the patient, [id number] patient care, completing clinical documentation, obtaining and/or reviewing separately obtained history, performing a medically appropriate examination, counseling and educating the patient/family/caregiver, ordering medications, tests, or procedures, communicating with other HCPs (not separately reported), and independently interpreting results (not separately reported). Gautam Vazquez MD Cc. Joshua Shaffer MD [facility]--General Surgery Markanushka Landers MD [facility]DIN[facility] SEAMAN documented in this encounter [facility] 10-18-2023 Nurse Note Clinical questionnaires incomplete due to Patient declined to complete or answer questions with nurse Additional intake questions: Has the patient had fever, nausea, vomiting, diarrhea, constipation, fatigue for > 1 week? No Does the patient have a decreased appetite? No Does patient want to see a Ironing Pleater? No (yes to any of above refer patient to schedulers for dietitian appointment) ) Does patient have any new or increased numbness or tingling of extremities? No Is patient interested in fertility information? No Does patient need any prescription refills? No Does patient have an advanced directive in place? No, Patient referred to Resource Center documented in this encounter [facility] 09-23-2023 Instructions Luz Goodwin, RADIOLOGY SPECIALIST.SHELL MOLD BONDER - 09/23/2023 3:41 PM EDT -PLEASE NOTE THAT WE REVIEW ALL YOUR TEST RESULTS AT YOUR NEXT FOLLOW UP VISIT WITH YOU. IF ANY ABNORMAL LAB REQUIRES SOONER ATTENTION, WE WILL CONTACT YOU. -If you have signed up on Quattro Wirelesst, we will release your test results through idio. I wish you the best of health [...] track your nutrition and calcium intake on www.Paperless Post.Arcot Systems This provides macro and micronutrient intake and requirements. - You can track your calcium intake on Harbour Antibodiesometer.Arcot Systems or any other calcium tracker of your [...] track your nutrition and calcium intake on www.Harbour Antibodiesometer.Arcot Systems This provides macro and micronutrient intake and [...] that features the Whole Plant Based diet, [place] over knives (see video online and visit website). Another movie that was recently released is: Eating You Alive (you can find it at Qnekt) and The SuppreMol ChangeTower Vision movie Dr. Jessica Mathis is a [facility] physician who is an expert in Whole Plant based diet. His website is [employer]. His research highlights the benefits of the Whole food plant based diet in reversing and preventing heart disease. Mrs. Mathis (his ) has a cookbook with many recipes on whole plant based food: The Prevent and Reverse Heart Disease cookbook. You can also consider reading his son, Richard Mathis's book: The Engine 2 cookbook Richard is a retired maintenance supervisor who has helped many people get healthier [...] multiple free videos and YouTube, for example: https://youtu.be/slpWyoyA2z0 , https://youtu.be/DfZRIcthr9u He has written multiple books, including Power [...] heart disease, acne, and other, his website: www.cheli.Arcot Systems Dr. Sydney Reyez is a renowned crop nutrition scientist, who has studied and researched the benefits of the Whole plant based diet. He has also researched the adverse effects of animal proteins on health. He presents many of his research findings in his book The [place] study. Dr. Woody Marino has completed many research trials proving the reversal of diseases, such as heart disease and early prostate cancer, with healthy lifestyle and the Whole Plant based diet. Dr. Woody Marino website is: www.bashirClear2Pay.Arcot Systems His new book: Undo It, has evidence based information and guide to following this healthy lifestyle. Dr. Mukesh Kruger has dedicated a website and additional time to reviewing all food related articles and research and presents them in his power point presentation and on his website at: nutritionfacts.org which is all free. Dr. Kruger has multiple free videos and YouTube, for example https://youVital Juice Newsletteru.be/aSgNkhgVtks and https://youemaze.be/lXXXygDRyBU. He has written multiple books including: How Not To and How Not To Diet He is now working on his next book: How Not To Age Dr. Yajaira Jacobs (from the [facility]), has articles on the following website: Perpetuuiti TechnoSoft Services.Arcot Systems Also, you could find additional information on practical to follow recipes by reading or watching online and YouTube such as: Denitrator AJ, Cooking With Plants, The Vegan Corner (recipes from an Turkish Denitrator), The Whole Foods Plant Based Cooking Show and visiting the provided websites for additional information on the whole plant based benefit and cooking recipes. You can also consider watching the vlogs of some of the plant based Athletes such as Rad Brooks Derek on FiveCubits Nutrition. Dr. Stacie Ray (a psychiatrist who suffered [...] - Gentle Yoga Anyone Can Do Anywhere www.RADLIVE/yo ga Also on youtube: yoga with Itzel [...] or a higher dose. Raw: Garlic, Cilantro, [place] nuts, Pumpkin seeds, Charlton seeds and Flax seed powder have been reported to help with certain metal detoxification such as mercury. Oilton-3 plant based rich foods are good anti-inflammatory [...] the Whole Plant Based Diet, by watching [place] over PostRocket movie and then review website. There are many other resources and educational information on the Whole plant based diet on the Internet and documentaries. There are other resources for wellness that you can also benefit from, such as the [facility] Wellness website, ulyssesclinic.org and includes Plant based and Mediterranean diet, yoga and meditation. Please avoid all dairy products. You could use non-dairy milk such as Flax milk, Cashew milk, [place] milk, Rice milk, Oat milk or Hemp [...] Foundation) http://www.osteo.org/osteolinks.as p National Institutes of Health: 4-656-735-BONE The Calcium Information Center: -Non-Dairy, Plant based Milk, can contain in1 glass up to 450 mg of calcium (300 to 450 mg) Exampled include Oat Milk, Flax Milk, Penfield Milk, Cashew Milk, Soy Milk, Peas Milk general health and well being Examples of Food Sources of Calcium from NIH Food Milligrams (mg) per serving Percent DV* Soymilk, calcium-fortified, 8 ounces 299 30 Charles Mix juice, calcium-fortified, 6 ounces 261 26 Tofu, firm, made with calcium sulfate, cup* 253 25 Tofu, soft, made with calcium sulfate, cup* 138 14 Qeppa-bh-yff cereal, calcium-fortified, 1 cup 100-1,000 10-100 Turnip greens, fresh, boiled, cup 99 10 Kale, raw, chopped, 1 cup 100 10 Kale, fresh, cooked, 1 cup 94 9 Ivorian cabbage, bok greene, raw, shredded, 1 cup 74 7 Bread, white, 1 slice 73 7 Tortilla, corn, agcua-xo-njin/dunbar, one 6 diameter 46 5 Tortilla, flour, wlbpu-nj-nuko/dunbar, one 6 diameter 32 3 Bread, whole-wheat, [...] You could acces this information online at: http://ods..nih.gov/factsheets/C alcium-HealthProfessional/ Vitamin D: Vitamin D3= cholecalciferol, available over the counter. Dose recommended 800 to 1000 iu daily with a meal; Certain patients require 3985-8574 iu daily and in patients deficient in [...] bones. Studies show approximately 50% of [place] men and women are vitamin D deficient [...] available from: www.nof.org (the national osteoporosis foundation) http://www.ulyssesclinic.org/art hritis/osteo/info.htm http://ods.od.nih.gov/factsheets/v itamind.asp National Institutes of Health: 4-582-129-BONE [facility] Calcium Information [place]: At the [facility], we work as a team for your care, along with Nurse Practitioners, Physician Assistants, Nurses and Medical Assistants. It is a privilege and honor to serve you. Thank you for choosing [facility] for your healthcare. Sincerely, Luz Goodwin APRN.MITCHELL documented in this encounter [facility] 09-23-2023 History of Present illness Narrative Images from the original note were not included. Rheumatology FOLLOW UP VISIT Referring Provider: Franchesca Zuniga Date of Service: 09/23/2023 Gender: female Ethnicity: Declined Age: [age] year old Chief Complaint: Follow Up (antiphospholipid syndrome) Last Rheumatology visit: 09/23/2023 (with Luz Goodwin) Jocelyne Lucas is a 38 year old Declined female who presents on 09/23/2023 for in person visit for follow-up of Follow Up (antiphospholipid syndrome). She is currently taking adalimumab. INTERVAL HISTORY Doing good Colonoscopy yesterday In remission No inflammation Trouble getting to upper GI will have mri to check Had panel lupus anticoag panel + Consult to [facility] [place] saw Dr. 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 Shaffer and Dr. Brown She had terminated preg due to problems with children and did not miscarriage Will go to [facility] Dr[facility] Vazquez and vas Or at main Scheduled for full hyster [...] was previously on Humira by her outside blocklayer. Has had steroids over the yrs for [...] anti-inflammatory diet and lifestyle. 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 Has quit off and on. She is motivated to quit and is aware of risks. I counseled patient on smoking cessation. She is following with her Cognos Analyst, IBD specialist, Dr. CLAUDIA Gonzalez, for her Crohn's disease. I reviewed last GI team note from Dec 10, 2022 : From a Crohn's standpoint, she has ileal and sigmoid colon involvement; no prior surgery. She was initially treated with intermittent prednisone and sulfasalazine/mesalamine. She has been on Humira since 2018 (also on it from 9577-1279)- started mostly for . However, she only [...] route for her case. - Roro Cain, COY.SHELL MOLD BONDER At today's visit, she denies LB or [...] Gonzalez has referred for surgery. Per her Cognos Analyst notes and plan: patient does not require [...] which included preparing to see the patient, ctbr-cc-fpxd patient care, completing clinical documentation, obtaining and/or reviewing separately obtained history, performing a medically appropriate examination, counseling and educating the patient/family/caregiver, and ordering medications, tests, or procedures. Luz Goodwin APRN.SHELL MOLD BONDER cc: PCP: Brenda Landon [address] [place] [address] Subjective HISTORY OF PRESENT ILLNESS NEW CONSULT [...] been under the care of IBD specialist, Cognos Analyst, Dr. CLAUDIA Gonzalez, since 2021. He confirmed her diagnosis of Crohn's disease She has had IBD for about 10 yrs; Reports has had colonoscopies and biopsies to confirm States she was diagnosed with based on her sacroiliitis, around age 16 yrs, by a Video Conference Specialist Initially was being diagnosed for torn muscle, [...] peeling in the soles , states saw Technical Documentation Specialist and was not given diagnosis for psoriasis [...] taking Humira States takes Humira differently : [facility] can get Humira prn and only takes them when she flares. [facility] was getting shipment and using them prn. [facility] would use one injection and her flare would resolve. States she understands that by taking prn can lead to immunogenicity and does not work. Her Video Conference Specialist left [place] States since changed her diet, has not had a severe flare up in 2 yrs States was doing shrimp and rice and salads, nuts, fruits and veggies States has since started a totally different diet and started exercising and is good. [facility] Dr. Gonzalez did not recommended biologic medications, [...] or skin States if blended in a it specialist can have. She consumes cheese, daily, as [...] Denies history of uveitis; has not seen biometrician Eye Dryness: No Nose Bleeds: No Sores [...] ulcers Memory Loss: No Swollen Glands: No Cognos Analyst notes reviewed Per lanolin plant operator notes: 37 year old female with PMHx [...] was prescribed flagyl and symptoms resolved. Labs [id number] provided significant for elevated CRP to 5 in 10/2017, and Fecal calpro 90 in 05/2018. Last C-scope ~2017 per pt, records unavailable, CD did not look active, however she has a stricture in the ileocolonic region, never needed dilation. Ms. Lucas is here today as her local GI is retiring, from [place], [place]. She follows with Rheum in [facility], [...] TERMINAL ILEUM. PENETRATING DISEASE: ABSENT. BILATERAL SACROILIITIS. Respiratory Care Practitioner: JHONNY Transcribe Date/Time: Aug 14 2022 3:16P [...] was prescribed flagyl and symptoms resolved. Labs [id number] provided significant for elevated CRP to 5 [...] lupus anticoag panel + Consult to vas med saw Dr. 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 Shaffer and Dr. Brown She had terminated preg due to problems with children and did not miscarriage Will go to [facility] Dr. Vazquez and lizzy Or at main Scheduled for [...] - SM ANTIBODY Negative Negative - RIBOSOMAL CASINO SHIFT MANAGER AB <1.0 AI <0.2 - RIBOSOMAL CASINO SHIFT MANAGER QUAL Negative Negative - CHROMATIN AB <1.0 AI <0.2 - CHROMATIN AB QUAL Negative Negative - SSA ANTIBODY QUAL Negative Negative - ANTI-SSA <1.0 AI <0.2 - ANTI-SSB <1.0 AI <0.2 - CASINO SHIFT MANAGER ANTIBODY QUAL Negative Negative - SCL-70 AB QUAL Negative Negative - SCL-70 ABS, EIA <1.0 AI <0.2 - CENTROMERE AB <1.0 AI >8.0(H) - CENTROMERE AB QUAL Negative Positive(A) - JACOBO-1 ANTIBODY, IGG <1.0 AI <0.2 - JACOBO 1 ANTIBODY QUAL Negative Negative - BETA [...] (Final result) Impression: IMPRESSION: 1. Bilateral sacroiliitis. Respiratory Care Practitioner: JHONNY Transcribe Date/Time: Jan 19 2023 12:03P ... Last MRI Hip/Pelvis - Impression Only MRI FEMALE PELVIS WO/W IVCON Exam End: 07/12/2023 6:25 PM (Final result) Impression: IMPRESSION: NO FOCI OF ENDOMETRIOSIS OR DEEP INFILTRATIVE ENDOMETRIOSIS IDENTIFIED. NO ACUTE FINDINGS IN THE PELVIS. Respiratory Care Practitioner: JHONNY ... 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 COLORECTAL SURGERY VIRTUAL VISIT FOLLOW UP I have communicated my name and active licensure. The patient's identity and physical location were verified at the time of this visit. Either the patient or their legal care support representative has been informed of the risks [...] this. Patient will be seeing Dr. Gautam Vazquez on 10/18/2023. Colonoscopy today: Impression: - Patent [...] mucous and blood in her stool around 4404-4529. Started on Humira after that time. Had remission during in 2011 Started on Humira in 2016 with significant improvement in symptoms Recently transferred her care from [facility]. Had repeat staging during this [...] SACROILIITIS. 05/03/17 Small bowel series- [place]: [place] Medical Decision Making: Assessment Assessment & Diagnosis: [...] of practice and I cannot make recommendations. Joshua Shaffer MD Medical Decision Making: Problems: Moderate: New problem with uncertain prognosis Data: Unique source(s) for external note(s) reviewed: 2 Unique test result(s) reviewed: 2 Risk: Moderate: Moderate risk from testing/treatment Medical Decision Making Level: 4 - Moderate documented in this encounter [facility] 09-20-2023 Miscellaneous Notes Patient was advised [...] need perioperative bridging which therapeutic Lovenox Parish Cartwright MD Summary: Phone Call - Update Pt has a new diagnosis that she would like to discuss before starting her prep for her colonoscopy with Dr. Brown on 09/22. As she does not want to prep if she will not be having the colonoscpoy. documented in this encounter [facility] 09-20-2023 Miscellaneous Notes Addended by: LAMONT BROWN on: 09/20/2023 10:26 AM Modules accepted: Orders Patient left voicemail for prep, message forward to Office. documented in this encounter [facility] 09-18-[address] Cartwright, Spoke to pt and she has not [...] the original note were not included. Parish Cartwright MD You Just now (9:58 AM) Agree, regarding the colonoscopy, that is a new development that she did not mention to me. She was supposed to have a INR check today SH Dr. Cartwright, I wanted to let you know that [...] [facility] documented in this encounter [facility] 09-14-2023 History of Present illness Narrative Images from the original note were not included. [facility] [place] SECTION OF REGIONAL CARDIOLOGY OUTPATIENT VISIT DATE September 14, 2023 OUTPATIENT VISIT TYPE NEW PRIMARY CARE PHYSICIAN: Brenda Landon [address] [place] [address] REFERRING PHYSICIAN: Franchesca Zuniga [address] [place] [address] Patient is being seen at the request [...] See Comments CURRENT MEDICATIONS: adalimumab (HUMIRA,CF, PEN [id number]) 80 mg/0.8 mL pen kit Inject 160 [...] need perioperative bridging which therapeutic Lovenox Parish Cartwright MD documented in this encounter [facility] 09-14-2023 History of Past i llness Narrative Problem Noted Date Diagnosed Date Resolved Date Antiphospholipid syndrome 09/14/2023 documented as of this encounter (statuses as of 10/11/2023) [facility] History of Past illness Narrative* Problem Noted Date Diagnosed Date Resolved Date Antiphospholipid syndrome 09/14/2023 documented as of this encounter (statuses as of 10/19/2023) [address]18-2023 History of Past illness Narrative* Problem Noted Date Diagnosed Date Resolved Date Antiphospholipid syndrome 09/14/2023 documented as of this encounter (statuses as of 10/19/2023) [facility] History of Past illness Narrative* Problem Noted Date Diagnosed Date Resolved Date Antiphospholipid syndrome 09/14/2023 documented as of this encounter (statuses as of 11/15/2023) [facility] History of Past illness Narrative* Problem Noted Date Diagnosed Date Resolved Date Antiphospholipid syndrome 09/14/2023 documented as of this encounter (statuses as of 01/04/2024) [facility] History of Past illness Narrative* Problem Noted Date Diagnosed Date Resolved Date Antiphospholipid syndrome 09/14/2023 documented as of this encounter (statuses as of 01/06/2024) [facility] History of Past illness Narrative* Problem Noted Date Diagnosed Date Resolved Date Antiphospholipid syndrome 09/14/2023 documented as of this encounter (statuses as of 01/17/2024) [facility] History of Past illness Narrative* Problem Noted Date Diagnosed Date Resolved Date Antiphospholipid syndrome 09/14/2023 documented as of this encounter (statuses as of 01/20/2024) [facility] History of Past illness Narrative* Problem Noted Date Diagnosed Date Resolved Date Antiphospholipid syndrome 09/14/2023 documented as of this encounter (statuses as of 02/01/2024) [facility] History of Past illness Narrative* Problem Noted Date Diagnosed Date Resolved Date Antiphospholipid syndrome 09/14/2023 documented as of this encounter (statuses as of 03/09/2024) [facility]10-09-2023 Instructions* Patient Instructions* Beth Bingham - 09/05/2023 2:59 [...] within 5 days - then please call [phone] Once contacted by the scheduling team, you will work with the appointment scheduler to select a surgical OR date that works for both you and the provider The appointment scheduler will set up all of your Pre-Op appointments, which may include all or some of the following: Pre-Op consent appointment w/ your provider Pre-Op teaching appointment - *can be done virtually Labs Admit Interview OnePACC (Anesthesia Clearance) And any other testing that the provider orders for prior to surgery You will receive a call from the rn surgery the day prior to your surgery as to when and where to arrive on the day of your scheduled surgery QUESTIONS: If you have any clinical questions: Please contact your provider's office directly; [phone] If you have any scheduling questions: Please contact the surgery scheduling office at [phone] THANK YOU for choosing the [facility] [place]! We wish you a speedy recovery and continued good health! [facility] History of Present illness Narrative* Adrien Cruz MD - 09/05/2023 2:30 PM EDT Images from the original note were not included. [facility] SECTION FOR MINIMALLY INVASIVE GYNECOLOGIC SURGERY OUTPATIENT VISIT DATE 09/05/2023 OUTPATIENT VISIT TYPE ESTABLISHED PRIMARY CARE PHYSICIAN: Brenda Landon [address] [place] [address] CHIEF COMPLAINT: Follow up HISTORY OF PRESENT [...] Outpatient Medications Medication Sig adalimumab (HUMIRA,CF, PEN [id number]) 80 mg/0.8 mL pen kit Inject 160 [...] prefer she have her surgery performed at [facility] in case I need Dr. Shaffer's assistance. [...] at least one ovary is left in place pt will not go into surgical menopause. [...] AM Adrien Landers MD documented [facility] Miscellaneous Notes* Telephone Encounter - Deanna Ortega [...] that may recur and often requires a long-term treatment plan. Once endometriosis is identified, there [...] AM Adrien Landers MD documented [facility] Miscellaneous Notes* Telephone Encounter - Ankita Vega - 06/16/2023 6:17 PM EDTSummary: FREDDY PA VENEGAS: [id number] Additional Information Required An active PA is already on file with expiration date of 11/26/2023. Please wait to resubmit requestwithin 60 days of that expiration date to obtain a PA renewal. documented in this encounterC[facility] Instructions* Patient Instructions* Beth Bingham - 05/20/2023 9:12 AM EDT FIELD OPERATIONS COORDINATOR [phone] OFFICE [phone] A20 YIELD CLERK [facility] SURGICAL SCHEDULERS documented in this encounterC[facility] History of Present illness Narrative* Adrien Landers MD - 05/20/2023 8:30 AM EDT Images from the original note were not included. [facility] [place] SECTION FOR MINIMALLY INVASIVE GYNECOLOGIC SURGERY OUTPATIENT VISIT DATE 05/20/2023 OUTPATIENT VISIT TYPE CONSULT PRIMARY CARE PHYSICIAN: Brenda Landon [facility] [place] [address] CHIEF COMPLAINT: Endo Consultation requested by Dr Joshua Shaffer for an opinion regarding Jocelyne Lucas, [...] unremarkable. Lower thorax: Minimal bilateral subsegmental atelectasis. Commercial Real Estate Paralegal (topogram) images: No additional findings. Past Gynecologic [...] directed every 24 hours. adalimumab (HUMIRA,CF, PEN [id number]) 80 mg/0.8 mL pen kit Inject 160 [...] that may recur and often requires a long-term treatment plan. Once endometriosis is identified, there [...] AM Adrien Landers MD documented in this encounterC[facility]06-22-2023 Instructions* Patient Instructions* Luz Goodwin APRN.SHELL MOLD BONDER - 05/19/2023 9:23 AM EDT -PLEASE NOTE THAT WE REVIEW ALL YOUR TEST RESULTS AT YOUR NEXT FOLLOW UP VISIT WITH YOU. IF ANY ABNORMAL LAB REQUIRES SOONER ATTENTION, WE WILL CONTACT YOU. -If you have signed up on idio, we will release your test results through idio. I wish you the best of health [...] track your nutrition and calcium intake on www.Paperless Post.Arcot Systems This provides macro and micronutrient intake and requirements. - You can track your calcium intake on SVTC Technologies or any other calcium tracker of [...] track your nutrition and calcium intake on www.Paperless Post.Arcot Systems This provides macro and micronutrient intake and [...] that features the Whole Plant Based diet, [place] over knives (see video online and visit website). Another movie that was recently released is: Eating You Alive (you can find it at Qnekt) and The SuppreMol ChangeTower Vision movie Dr. Jessica Mathis is a [facility] physician who is an expert in Whole Plant based diet. His website is [employer]. His research highlights the benefits of the Whole food plant based diet in reversing and preventing heart disease. Mrs. Mathis (his ) has a cookbook with many recipes on whole plant based food: The Prevent and Reverse Heart Disease cookbook. You can also consider reading his son, Richard Mathis's book: The Engine 2 cookbook Richard is a retired maintenance supervisor who has helped many people get healthier [...] free videos and YouTube, for example: ht tps://youVital Juice Newsletteru.be/giqIqruY2r7 , https://youVital Juice Newsletteru.be/LuUFEazia7h He has written multiple books, including Power [...] heart disease, acne, and other, his website: www.cheli.Arcot Systems Dr. Sydney Reyez is a renowned crop nutrition scientist, who has studied and researched the benefits of the Whole plant based diet. He has also researched the adverse effects of animal proteins on health. He presents many of his research findings in his book The [place] study. Dr. Woody Marino has completed many research trials proving the reversal of diseases, such as heart disease and early prostate cancer, with healthy lifestyle and the Whole Plant based diet. Dr. Woody Marino website is: www.bashirClear2Pay.Arcot Systems His new book: Undo It, has evidence based information and guide to following this healthy lifestyle. Dr. Mukesh Kruger has dedicated a website and additional time to reviewing all food related articles and research and presents them in his power point presentation and on his website at: nutritionfacts.org which is all free. Dr. Kruger has multiple free videos and YouTube, for example https://youVital Juice Newsletteru.be/aSgNkhgVtks and https://youemaze.be/lXXXygDRyBU. He has written multiple books including: How Not To and How Not To Diet He is now working on his next book: How Not To Age Dr. Yajaira Jacobs (from the [facility]), has articles on the following website: Perpetuuiti TechnoSoft Services.Arcot Systems Also, you could find additional information on practical to follow recipes by reading or watching online and YouTube such as: Denitrator AJ, Cooking With Plants, The Vegan Corner (recipes from an Turkish Denitrator), The Whole Foods Plant Based Cooking Show and visiting the provided websites for additional information on the whole plant based benefit and cooking recipes. You can also consider watching the vlogs of some of the plant based Athletes such as Joel Coles, Tylor Muir on 7k7k.com. Dr. Stacie Ray (a psychiatrist who suffered [...] - Gentle Yoga Anyone Can Do Anywhere www.RADLIVE/yoga Also on youtube: yoga with Itzel 3- [...] based diet, it is recommended to take AlodlcaE34, sublingual, dissolve under the tongue, take once daily. Vitamin B12 is available over the counter, dose could be 2500 mcg, and can be taken once a week, and if your blood levels are low, you mayneed to take it once daily or a higher dose. Raw: Garlic, Cilantro, [place] nuts, Pumpkin seeds, Charlton seeds and Flax seed powder have been reported to help with certain metal detoxification such as mercury. Oilton-3 plant based rich foods are good anti-inflammatory [...] the Whole Plant Based Diet, by watching [place] over PostRocket movie and then review website. There are many other resources and educational information on the Whole plant based diet on the Internet and documentaries. There are other resources for wellness that you can also benefit from, such as the [facility] website, [facility]org and includes Plant based and Mediterranean diet, yoga and meditation. Please avoid all dairy products. You could use non-dairy milk such as Flax milk, Cashew milk, Penfield milk, Rice milk, Oat milk or Hemp [...] Osteoporosis Foundation) http://www.osteo.org/osteolinks.asp National Institutes of Health: 4-505-902-BONE The Calcium Information Center: -Non-Dairy, Plant based Milk, can contain in1 glass up to 450 mg of calcium (300 to 450 mg) Exampled include Oat Milk, Flax Milk, Penfield Milk, Cashew Milk, Soy Milk, Peas Milk general health and well being Examples of Food Sources of Calcium from [facility] Food Milligrams (mg) per serving Percent DV* Soymilk, calcium-fortified, 8 ounces 299 30 Charles Mix juice, calcium-fortified, 6 ounces 261 26 Tofu, firm, made with calcium sulfate, cup* 253 25 Tofu, soft, made with calcium sulfate, cup* 138 14 Duwoq-fg-jpp cereal, calcium-fortified, 1 cup 100-1,000 10-100 Turnip greens, fresh, boiled, cup 99 10 Kale, raw, chopped, 1 cup 100 10 Kale, fresh, cooked, 1 cup 94 9 Ivorian cabbage, bok greene, raw, shredded, 1 cup 74 7 Bread, white, 1 slice 73 7 Tortilla, corn, argwc-xt-itdt/dunbar, one 6 diameter 46 5 Tortilla, flour, orqug-yr-zpqc/dunbar, one 6 diameter 32 3 Bread, whole-wheat, [...] daily with a meal; Certain patients require 1010-7610 iu daily and in patients deficient in [...] bones. Studies show approximately 50% of [place] men and women are vitamin D deficient [...] foundation) http://www.[facility].org/arthritis/osteo/info.htm http://ods.od.nih.gov/factsheets/vitamind.asp National Institutes of Health: 5-160-231-BONE The Calcium Information Center: At the [facility], we work as a team for your care, along with Nurse Practitioners, PhysicianAssistants, Nurses and Medical Assistants. It is a privilege and honor to serve you. Thank you for choosing [facility] for your healthcare. Sincerely, Lzu Goodwin APRN.MITCHELL documented in this encounterCleveland Clinic [facility]06-22-2023 History of Present illness Narrative* Luz Goodwin APRN.CNP - 05/19/2023 8:50 AM EDT Images from the original note were not included. Rheumatology FOLLOW UP VISIT Referring Provider: Franchesca Zuniga Date of Service: 05/19/2023 Gender: female Ethnicity: Declined Age: [age] year old Chief Complaint: Follow Up (discuss Humira -- Crohn's -- stiffness to upper back x 2 mths ) Last Rheumatology visit: 05/19/2023 (with Luz Goodwin) Jocelyne Lucas is a 38 year old [...] was previously on Humira by her outside blocklayer. Has had steroids over the yrs for [...] anti-inflammatory diet and lifestyle. 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 Has quit off and on. She is motivated to quit and is aware of risks. I counseled patient on smoking cessation. She is following with her Cognos Analyst, IBD specialist, Dr. CLAUDIA Gonzalez, for her Crohn's disease. I reviewed last GI team note from Dec 10, 2022 : From a Crohn's standpoint, she has ileal and sigmoid colon involvement; no prior surgery. She wasinitially treated with intermittent prednisone and sulfasalazine/mesalamine. She has been on Humirasince 2017 (also on it from 5505-2762)- started mostly for . However, she only [...] route for her case. - Roro Cain, COY.SHELL MOLD BONDER At today's visit, she denies LB or [...] Gonzalez has referred for surgery. Per her Cognos Analyst notes and plan: patient does not require [...] which included preparing to see the patient, zyvc-gd-lvzw patient care, completing clinical documentation, obtaining and/or reviewing separately obtained history, performing a medically appropriate examination, and counseling and educating the patient/family/caregiverPortions of this note have been copied from my previous note and have beenupdated to reflect today's visit note May 19, 2023 all reflect current medical decision making from date of this visit. Luz Goodwin APRN.SHELL MOLD BONDER cc: PCP: Brenda Landon [address] [place] [address] Subjective HISTORY OF PRESENT ILLNESS NEW CONSULT [...] been under the care of IBD specialist, Cognos Analyst, Dr. CLAUDIA Gonzalez, since 2021. He confirmed her diagnosis of Crohn's disease She has had IBD for about 10 yrs; Reports has had colonoscopies and biopsies to confirm States she was diagnosed with based on her sacroiliitis, around age 16 yrs, by a Video Conference Specialist Initially was being diagnosed for torn muscle, [...] peeling in the soles , states saw Technical Documentation Specialist and was notgiven diagnosis for psoriasis No [...] taking Humira States takes Humira differently : can get Humira prn and only takes them when she flares. States was getting shipment and using them prn. States would use one injection and her flare would resolve. States she understands that by taking prn can lead to immunogenicity and does not work. Her Video Conference Specialist left [place] States since changed her diet, has [...] or skin States if blended in a it specialist can have. She consumes cheese, daily, as [...] Denies history of uveitis; has not seen biometrician Eye Dryness: No Nose Bleeds: No Sores [...] ulcers Memory Loss: No Swollen Glands: No Cognos Analyst notes reviewed Per lanolin plant operator notes: 37 year old female with PMHx [...] she was prescribed flagyl and symptoms resolved.Labs [id number] provided significant for elevated CRP to 5 in 10/2017, and Fecal calpro 90 in 05/2018. Last C-scope ~2017 per pt, records unavailable, CD did not look active, however she has a stricture in the ileocolonic region, never needed dilation. Ms. Lucas is here today as her local GI is retiring, from [place], [place]. She follows with [facility], planning [...] TERMINAL ILEUM. PENETRATING DISEASE: ABSENT. BILATERAL SACROILIITIS. Respiratory Care Practitioner: PSCKary Transcribe Date/Time: Aug 14 2022 3:16P Dictated [...] CD. ? Per faxed records from [place] when seen 10/2019 by GI there: Diagnosed [...] was prescribed flagyl and symptoms resolved. Labs [id number] provided significant for elevated CRP to 5 [...] - SM ANTIBODY Negative Negative - RIBOSOMAL CASINO SHIFT MANAGER AB <1.0 AI <0.2 - RIBOSOMAL CASINO SHIFT MANAGER QUAL Negative Negative - CHROMATIN AB <1.0 AI <0.2 - CHROMATIN AB QUAL Negative Negative - SSA ANTIBODY QUAL Negative Negative - ANTI-SSA <1.0 AI <0.2 - ANTI-SSB <1.0 AI <0.2 - CASINO SHIFT MANAGER ANTIBODY QUAL Negative Negative - SCL-70 AB QUAL Negative Negative - SCL-70 ABS, EIA <1.0 AI <0.2 - CENTROMERE AB <1.0 AI >8.0(H) - CENTROMERE AB QUAL Negative Positive(A) - JACOBO-1 ANTIBODY, IGG <1.0 AI <0.2 - JACOBO 1 ANTIBODY QUAL Negative Negative - BETA [...] (Final result) Impression: IMPRESSION: 1. Bilateral sacroiliitis. Respiratory Care Practitioner: JHONNY Transcribe Date/Time: Jan 19 2023 12:03P [...] Outpatient Medications Medication Sig adalimumab (HUMIRA,CF, PEN [id number]) 80 mg/0.8 mL pen kit Inject 160 [...] Exam Data (across time) documented in this encounterCleveland [facility]06-20-2023 Miscellaneous Notes* Telephone Encounter - Eren Sandoval [facility] - 05/17/2023 4:43 PM EDT Prior authorization for pended medication(s) has been approved; however, due to insurance restrictions Rx must be filled at [facility] ([phone]) Specialty Pharamcy. Pended Orders ID Status Description Pended By When Reason [id number] Pended adalimumab (HUMIRA,CF, PEN [id number]) 80 mg/0.8 mL pen kit Eren Sandoval [facility] 05/17/231645 [id number] Pended adalimumab 40 mg/0.4 mL subcutaneous pen kit (HUMIRA (CF))- EVERY 2 WEEKS Eren Sandoval [facility] 05/17/231645 If refill request approved, eRx will be sent to above Specialty Pharmacy for processing. Thank you. Eren Sandoval, PharmD Clinical Pharmacist, Biologics, Neurology, and Hepatology [facility] ; Pool: P [facility] Pool #: [id number] documented in this encounterCleveland Clinic Luther[facility] Hospital06-16-2023 History of Present illness Narrative* Roro Bass - 05/13/2023 7:27 AM EDT [facility] received prescription(s) for Humira from Dr. Israel's office. Benefits investigation was conducted, indicating that a prior authorization is required by patient'sinsurance plan with [employer]. Encounter will be updated once prior authorization has been submitted by [facility]. Roro Bass CPhT, Inflammatory/Allergy [facility] [phone] documented in this encounterCleveland Clinic Luther[facility] Hospital06-14-2023 Miscellaneous Notes* Telephone Encounter - Ankita [...] Colonoscopy in 3 months - Referral to shoe turner to discuss Mediterranean diet, and Dr. Bonilla for smoking cessation - RTC in 1 month with DIOGO Haq virtually Order must go through Specialty pharmacy. Induction & maintenance orders pended to Dr. Brown for review / signature. Ankita Hamilton May 11, 2023 11:59 AM * Telephone Encounter - Ankita Hamilton - 05/11/2023 11:57 AM EDT ----- Message from Jennifer Flores MD sent at 05/10/2023 12:08 PM EDT ----- Kashif Luciano I ordered Humira induction dose for Ms. Lucas. Can you follow up with her for standard maintenance dosing q2 weeks? Thanks! Jennifer documented in this encounterCleveland Clinic Luther[facility] Hospital05-02-2023 History of Present illness Narrative* Pedro Israel PA-C - 03/29/2023 4:40 PM EDT Virtual Follow Up Visit Provider Location: [facility] Facility Patient Location: Patient Home or Place of Residence SUBJECTIVE Jocelyne Lucas [id number] has requested a video telemedicine for [...] Doing well since surgery 02/14/2023 ICR with Kono S. Currently 4 BMs daily no blood. [...] No history of dysuria, frequency or incontinence YIELD CLERK: Negative for abnormal vaginal bleeding, abnormal vaginal [...] with more than 50% of the total ognz-jv-psvh time of the visit in counseling / [...] visit. Either the patient or their legal care support representative has been informed of the risks and benefits of -- and alternatives to -- treatment through a remote evaluation andconsents to proceed with the evaluation remotely. Pedro Israel PA-C March 29, 2023 4:41 PM documented in this encounterMichelle Ville [id number] History of Present illness Narrative* Joshua Shaffer MD - 03/24/2023 4:00 PM EDT Images from the original note were not included. COLORECTAL SURGERY VIRTUAL VISIT FOLLOW UP I have communicated my name and active licensure. The patient's identity and physical location wereverified at the time of this visit. Either the patient or their legal care support representative has been informed of the risks [...] mucous and blood in her stool around 1237-7304. Started on Humira after that time. Had remission during in 2011 Started on Humira in 2016 with significant improvement in symptoms Recently transferred her care from [facility]. Had repeat staging during this [...] She would like to see someone from YIELD CLERK regarding her endometriosis diagnosis - will facilitate Follow up with me as needed Joshua Shaffer MD documented in this encounterCleveland Clinic Luther[facility] Hospital04-10-2023 Miscellaneous Notes* Telephone Encounter - Cara Tovar [...] states understanding and prefers to present to [facility] ED- no further questions or concerns Signature Cara Tovar RN March 07, 2023 documented in this encounterCleveland Clinic Lutheran Hospital04-07-2023 NotePROCEDURE: XR ANKLE LT MIN 3 V HISTORY: Arthralgia of the ankle and/or foot COMPARISON: None. FINDINGS: BONES:No fracture, acute abnormality, or significant arthropathy. SOFT TISSUES:No visible soft tissue swelling. EFFUSION:None visible. OTHER: Negative. IMPRESSION: 1. Normal examination. Electronically authenticated by: SUSAN DE LA FUENTE Date: 2023-03-04 15:58[facility]04[facility]05-20[facility] Miscellaneous Notes* Telephone Encounter - Joshua Shaffer MD - 03/02/2023 5:20 PM EDT I spoke with pt who reports she is having right lower quadrant abdominal pain only at night between3 and 6 AM. Resolves on its own. Discussed pathology findings including endometriosis. Notes she was advised of this some years ago.She will follow up with her YIELD CLERK. Also reviewed EKG findings Joshua Shaffer MD documented in this encounterCleveland Clinic Lutheran Hospital04-04-2023 Miscellaneous Notes* Telephone Encounter - Cara [...] 03/01/2023 9:57 AM EDT ----- Contact: See idio message, plus has a few other questions. Prefers a call back documented in this encounterCleveland Clinic Lutheran Hospital03-29-2023 Miscellaneous Notes* Telephone Encounter - Landy Souza RN - 02/23/2023 10:29 AM EDT PATIENT INFORMATION Record ID: [id number] Patient Name: [facility]: [facility] [place]: [facility] [place] Attending: Joshua Shaffer Center: Colorectal Surgery INSTRUCTIONS SN to remind patient of appointment date, time, location All Clear Ask follow question #4b on NOC section of survey. All Clear All Clear SURVEY INFORMATION Medical/Nurse Asset Coordinator: Landy Souza 1. Your discharge instructions are [...] symptoms? (Standard Question) No documented in this encounterCleveland Clinic Lutheran Hospital03-17-2023 History and physical note * Shelby Garcia PA-C - 02/11/2023 2:00 PM EDT COLORECTAL SURGERY Pre-OP February 11, 2023 [facility] 37 year old Chief Complaint: preoperative exam [...] 3 ) Wt 64.4 kg (142 lb) LMP03/04/2023 (Approximate) SpO2 98% BMI 25.15 kg/m General [...] Department of Colorectal Surgery documented in this encounterCleveland Clinic Lutheran Hospital03-17-2023 History of Present illness Narrative* Yadira [...] in Department: COLORECTAL SURGERY documented in this encounterCleveland Clinic Lutheran Hospital03-07-2023 Miscellaneous Notes* Telephone Encounter - Cara Tovar RN - 02/01/2023 1:50 PM EST SPECIALTY CARE COORDINATION FOLLOW-UP NOTE Call received- Pt agreeable to moving sx to 02/14/23- to leave pre-operative appts on 02/11 as is No further questions or concerns at this time- pt has call back number Signature Cara Tovar RN February 01, 2023 documented in this encounterCleveland Clinic Luther[facility] Hospital03-07-2023 Miscellaneous Notes* Telephone Encounter - Cara [...] RN February 01, 2023 documented in this encounterCleveland Clinic Lutheran Hospital03-02-2023 History and physical note * Joshua Shaffer MD - 01/27/2023 1:40 PM EST Images from the original note were not included. COLORECTAL SURGERY Consultation January 25, 2023 Jocelyne Lucas 37 year old This consult was requested by Dr. Cain and my final recommendations will be communicated to the requesting health care provider by way of the shared medical record for internal providers or letter via the Bag Borrow or Steal Postal Service for external providers. Chief Complaint: Crohn's disease of small and large intestines with complication History of Present Illness: Jocelyne Lucas is a 37 year old year old female with a history of Crohn's disease, diagnosed in 2010. Notes mucous and blood in her stool around 1492-1828. Started on Humira after that time. Had remission during in 2011 Started on Humira in 2016 with significant improvement in symptoms Recently transferred her care from [facility]. Had repeat staging during this [...] SACROILIITIS. 05/03/17 Small bowel series- [place]: [place] PAST MEDICAL HISTORY Diagnosis Date Crohn's [...] Level: 4 - Moderate documented in this encounterCleveland Clinic Lutheran Hospital02-27-2023 History of Present illness Narrative* Venice Bonilla RPh - 01/24/2023 9:20 AM EST IBD PharmD Follow-Up See 01/07/23 idio message re: smoking cessation. Will discontinue NRT lozenge due to mouth sores. Rx for NRT patch 7 mg daily sent to pharmacy. Requested MyChart check-in from pt in one week after NRT patch initiation. documented in this encounterCleveland Clinic Lutheran Hospital02-23-2023 Miscellaneous Notes* Telephone Encounter - Venice Bonilla RPh - 01/20/2023 9:17 AM EST Smoking Cessation Follow-Up See idio correspondence from 01/07/23. Attempted to call Jocelyne to obtain more details and discuss plan - no response. documented in this encounterCleveland Clinic Lutheran Hospital02-22-2023 Instructions* Patient Instructions* Franchesca Zuniga MD - 01/19/2023 9:37 AM EST -PLEASE NOTE THAT WE REVIEW ALL YOUR TEST RESULTS AT YOUR NEXT FOLLOW UP VISIT WITH YOU. IF ANY ABNORMAL LAB REQUIRES SOONER ATTENTION, WE WILL CONTACT YOU. -If you have signed up on Quattro Wirelesst, we will release your test results through idio. I wish you the best of health [...] track your nutrition and calcium intake on www.Paperless Post.Arcot Systems This provides macro and micronutrient intake and requirements. - You can track your calcium intake on [employer] or any other calcium tracker of [...] track your nutrition and calcium intake on www.Paperless Post.Arcot Systems This provides macro and micronutrient intake and [...] that features the Whole Plant Based diet, [place] over knives (see video online and visit website). Another movie that was recently released is: Eating You Alive (you can find it at Qnekt) and The SuppreMol ChangeTower Vision movie Dr. Jessica Mathis is a [facility] physician who is an expert in Whole Plant based diet. His website is [employer]. His research highlights the benefits of the Whole food plant based diet in reversing and preventing heart disease. Mrs. Mathis (his ) has a cookbook with many recipes on whole plant based food: The Prevent and Reverse Heart Disease cookbook. You can also consider reading his son, Richard Mathis's book: The Engine 2 cookbook Richard is a retired maintenance supervisor who has helped many people get healthier by following the whole food plantbased diet. Dr. Pancho Maya, has a website and free michelet to help get started on a whole plant based diet, at www.pcrLeonardo Worldwide Corporation.org and you can log on for free for his 21-Day Kickstart with meals and recipes to follow for21 days. There is also a free michelet for that. He has multiple free videos and YouTube, for example: ht tps://youtu.be/tgnKkpdV1o3 , https://youtu.be/YiXUBjhyz5o He has written multiple books, including Power Zipari for the Brain, The Cheese Trap, Dr. Pancho Maya's Program for Reversing Diabetes, Your Body in Balance Dr. Valente Valera has shown the benefit of a starch based whole food plant based diet to his Rheumatoid Arthritis patients, as well as patient with diabetes II, hypertension, obesity, multiple sclerosis, heart disease, acne, and other, his website: www.cheli.Arcot Systems Dr. Sydney Reyez is a renowned crop nutrition scientist, who has studied and researched the benefits of the Whole plant based diet. He has also researched the adverse effects of animal proteins on health. He presents many of his research findings in his book The [place] study. Dr. Woody Marino has completed many research trials proving the reversal of diseases, such as heart disease and early prostate cancer, with healthy lifestyle and the Whole Plant based diet. Dr. Woody Marino website is: www.bashirClear2Pay.Arcot Systems His new book: Undo It, has evidence [...] videos and YouTube, for example https://youtu.be/aSgNkhgVtks and https://youVital Juice Newsletteru.be/lXXXygDRyBU. He has written multiple books including: How Not To and How Not To Diet He is now working on his next book: How Not To Age Dr. Yajaira Jacobs (from the [facility]), has articles on the following website: Perpetuuiti TechnoSoft Services.[employer]cot [employer] Also, you could find additional information on practical to follow recipes by reading or watching online and YouTube such as: Denitrator KEATON, Cooking With Plants, The Vegan Corner (recipes from an Turkish Denitrator), The Whole Foods Plant Based Cooking Show and visiting the provided websites for additional information on the whole plant based benefit and cooking recipes. You can also consider watching the vlogs of some of the plant based Athletes such as Rad Brooks Derek on 7k7k.com. Dr. Stacie Ray (a psychiatrist who suffered with lupus) has helped reverse her Systemic Lupus Erythematosus and helps many patients with their auto-immune diseases, based on her recommendations of the whole food plant based diet and the green smoothies. She has a facebook and website, and on youtube her channel is: Goodbyshelley Lupus Some people have adverse effect or [...] - Gentle Yoga Anyone Can Do Anywhere www.RADLIVE/yoga Also on youtube: yoga with Itzel 3- [...] based diet, it is recommended to take PlrahapP54, sublingual, dissolve under the tongue, take once daily. Vitamin B12 is available over the counter, dose could be 2500 mcg, and can be taken once a week, and if your blood levels are low, you mayneed to take it once daily or a higher dose. Raw: Garlic, Cilantro, [place] nuts, Pumpkin seeds, [place] seeds and Flax seed powder have been reported to help with certain metal detoxification such as mercury. [place]-3 plant based rich foods are good anti-inflammatory [...] the Whole Plant Based Diet, by watching [place] over [employer] movie and then review website. There are many other resources and educational information on the Whole plant based diet on the Internet and documentaries. There are other resources for wellness that you can also benefit from, such as the [facility] website, [email or web address] and includes Plant based and Mediterranean diet, yoga and meditation. Please avoid all dairy products. You could use non-dairy milk such as Flax milk, Cashew milk, [place] milk, Rice milk, Oat milk or Hemp [...] following resources: www.nof.org (National Osteoporosis Foundation) http://www.osteo.org/osteolinks.asp [place] Institutes of [facility]: 0-685-063-BONE [facility] Calcium Information [place]: -Non-Dairy, Plant based Milk, can contain in1 glass up to 450 mg of calcium (300 to 450 mg) Exampled include Oat Milk, Flax Milk, [place] Milk, Cashew Milk, Soy Milk, Peas Milk general health and well being Examples of Food Sources of Calcium from [facility] Food Milligrams (mg) per serving Percent DV* Soymilk, calcium-fortified, 8 ounces 299 30 Charles Mix juice, calcium-fortified, 6 ounces 261 26 Tofu, firm, made with calcium sulfate, cup* 253 25 Tofu, soft, made with calcium sulfate, cup* 138 14 Smjlu-gx-jfl cereal, calcium-fortified, 1 cup 100-1,000 10-100 Turnip greens, fresh, boiled, cup 99 10 Kale, raw, chopped, 1 cup 100 10 Kale, fresh, cooked, 1 cup 94 9 Ivorian cabbage, bok greene, raw, shredded, 1 cup 74 7 Bread, white, 1 slice 73 7 Tortilla, corn, nownl-ti-nlgn/dunbar, one 6 diameter 46 5 Tortilla, flour, ujxxa-wz-tsbx/dunbar, one 6 diameter 32 3 Bread, whole-wheat, [...] daily with a meal; Certain patients require 2914-0217 iu daily and in patients deficient in [...] bones. Studies show approximately 50% of [place] men and women are vitamin D deficient [...] foundation) http://www.[facility].org/arthritis/osteo/info.htm http://ods.od.nih.gov/factsheets/vitamind.asp National Institutes of Health: 8-455-742-BONE The Calcium Information [place]: At the [facility], we work as a team for your care, along with Nurse Practitioners, PhysicianAssistants, Nurses and Medical Assistants. It is a privilege and honor to serve you. Thank you for choosing [facility] for your healthcare. Sincerely, Franchesca Springer MD documented in this encounterCleveland Clinic [facility] Hospital02-22-2023 History of Present illness Narrative* Franchesca Zuniga MD - 01/19/2023 9:21 AM EST Images from the original note were not included. Rheumatology CONSULTATION Referring Provider: Cuco Gonzalez MD Date of Service: 01/19/2023 Gender: female Ethnicity: Age: [age] year old Chief Complaint: New Patient Last Rheumatology visit: None at [facility] Jocelyne Lucas is a 37 year [...] been under the care of IBD specialist, Cognos Analyst, Dr. CLAUDIA Gonzalez, since 2021. He confirmed her diagnosis of Crohn's disease She has had IBD for about 10 yrs; Reports has had colonoscopies and biopsies to confirm States she was diagnosed with based on her sacroiliitis, around age 16 yrs, by a Video Conference Specialist Initially was being diagnosed for torn muscle, [...] peeling in the soles , states saw Technical Documentation Specialist and was notgiven diagnosis for psoriasis No [...] was getting shipment and using them prn. [facility] would use one injection and her flare would resolve. States she understands that by taking prn can lead to immunogenicity and does not work. Her Video Conference Specialist left [place] States since changed her diet, has not had a severe flare up in 2 yrs States was doing shrimp and rice and salads, nuts, fruits and veggies States has since started a totally different diet and started exercising and is good. [facility] Dr. Gonzalez did not recommended biologic medications, [...] or skin States if blended in a it specialist can have. 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 Last C-scope ~2017 per pt, records unavailable, CD did not look active, however she has a stricture in the ileocolonic region, never needed dilation. Ms. Lucas is here today as her local GI is retiring, from [place], [place]. She follows with [facility], planning [...] TERMINAL ILEUM. PENETRATING DISEASE: ABSENT. BILATERAL SACROILIITIS. Respiratory Care Practitioner: JHONNY Transcribe Date/Time: Aug 14 2022 3:16P Dictated by : CARLOS MANUEL DORANTES DO This examination was interpreted and the report reviewed and electronically signed by: CARLOS MAUNEL DORANTES DO on Aug 14 2022 3:46PM [...] was prescribed flagyl and symptoms resolved. 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 Bilateral sacroiliitis. Respiratory Care Practitioner: JHONNY Transcribe Date/Time: Jan 19 2023 12:03P [...] is currently no information documented on the [facility]. Go to the Rheumatology activity andcomplete the [facility] joint exam. Joint Exam 01/19/2023 No joint [...] was previously on Humira by her outside blocklayer. Has had steroids over the yrs for [...] anti-inflammatory diet and lifestyle. She is a long-term smoker. Has quit off and on. She is motivated to quit and is aware of risks. I counseled patient on smoking cessation. She is following with her Cognos Analyst, IBD specialist, Dr. CLAUDIA Gonzalez, for her Crohn's disease. I reviewed last GI team note from Dec 10, 2022 : From a Crohn's standpoint, she has ileal and sigmoid colon involvement; no prior surgery. She wasinitially treated with intermittent prednisone and sulfasalazine/mesalamine. She has been on Humirasince 2017 (also on it from 3678-3250)- started mostly for . However, she only [...] route for her case. - Roro Cain, COY.SHELL MOLD BONDER At today's visit, she denies LB or [...] Gonzalez has referred for surgery. Per her Cognos Analyst notes and plan: patient does not require [...] BMI, improve sleep hygiene/quality and restorative sleep, Vitami n D supplementation and maintaining normal vitamin D [...] to 4 months with me or Luz Goodwin, Rheum MITCHELL for IBD associated IA.,sooner if needed Consultation requested by Dr. Cuco Gonzalez for an opinion regarding sacroiliitis and my final recommendations will be communicated back to the requesting physician by way of shared medical recordor letter by US mail. I spent a total of 85 minutes on the date of the service which included preparing to see the patient, njgg-nq-zxqb patient care, completing clinical documentation, obtaining and/or reviewing separately obtained history, performing a medically appropriate examination, counseling and educating the pat ient/family/caregiver, ordering medications, tests, or procedures, communicating with other HCPs (not separately reported), independently interpreting results (not separately reported), communicatingresults to the patient/family/caregiver, and care coordination (not separately reported)and wasiemt83 min the following day. Franchesca Zuniga MD cc: referring: Cuco Gonzalez MD cc: PCP: Brenda Landon MD Medical Decision Making: Medical Decision Making Level: 1 - N/A documented in this encounterCleveland [facility]02-03-2023 History of Present illness Narrative* Venice Bonilla, [facility] - 12/31/2022 10:30 AM EST IBD Medication Consult [facility] [place] Patient consents to pharmacy consult agreement. The [...] in places where it is forbidden (e.g., roman catholic, library)? No (0) Which cigarette would you [...] NRT gum Past Medical History Cardiac hx ([place], arrhythmias, angina): No /: No Dental (missing [...] Time spent (mins): 30 documented in this encounterCleveland Clinic Luther[facility] Hospital02-01-2023 Miscellaneous Notes* Telephone Encounter - Elda Sutton Research Coordinator - 12/29/2022 2:19 PM EST Called patient to remind her about her missed ePRO and fecal calprotectin test for the STARWP3 study. Pt didn't answer , left voice message . documented in this encounterCleveland Clinic [facility] Hospital01-27-2023 History of Present illness Narrative* RT [...] 24, 2022 11:08 AM documented in this encounterCleveland Clinic Lutheran Hospital01-13-2023 Instructions* Patient Instructions* Roro Cain APRN.CNP [...] your usual activities immediately. documented in this encounterCleveland Clinic Luther[facility] Hospital01-13-2023 History of Present illness Narrative* Roro Cain APRN.CNP - 12/10/2022 10:00 AM EST .Follow Up Visit SUBJECTIVE Jocelyne Lucas [id number] presents to the clinic today with [...] she was prescribed flagyl and symptoms resolved.Labs [id number] provided significant for elevated CRP to 5 in 10/2017, and Fecal calpro 90 in 05/2018. Last C-scope ~2017 per pt, records unavailable, CD did not look active, however she has a stricture in the ileocolonic region, never needed dilation. Ms. Lucas is here today as her local GI is retiring, from [place], [place]. She follows with [facility], planning [...] Humira since 2018 (also on it from 9693-3788)- started mostlyfor . However, she only uses [...] which included preparing to see the patient, toxt-sg-oytz patient care, completing clinical documentation, obtaining and/or reviewing separately obtained history, performing a medically appropriate examination, counseling and educating the pat ient/family/caregiver, ordering medications, tests, or procedures, and communicating with other HCPs (not separately reported). Roro Cain APRN.CNP December 10, 2022 12:33 PM Addendum Spoke with Dr. Gonzalez regarding her case. He recommends that she meet with Dr. Shaffer ([facility]) to discuss surgical options regarding her stricture- not an emergent situation. Also recommends she followup with Rheum regarding restarting Humira. documented in this encounterCleveland Clinic Luther[facility] Hospital01-06-2023 Nurse Note* Ashia Downey RN - [...] RN In Department: GASTROENTEROLOGY documented in this encounterCleveland Clinic Lutheran Hospital12-29-2022 Miscellaneous Notes* Telephone Encounter - Ana Paula Murray RN - 11/25/2022 2:06 PM EST Topic: Pre-Procedure Message Attempted to reach the patient at the contact number that they provided [phone] (home) . Unable to speak with patient so without identifying the patient the following information was left on their voice mail: Date of procedure, location and report time A message was left informing the patient/patient care support representative they must have a responsible adult [...] Number to call with questions or concerns [phone] Number to call to cancel their procedure [phone] Ana Paula Murray RN documented in this encounterCleveland Clinic Luther[facility] Hospital11-30-2022 Miscellaneous Notes* Telephone Encounter - Elda Sutton, Research Coordinator - 10/27/2022 2:20 PM EST Called patient to remind her about her missed ePRO and fecal calprotectin test for the STARWP3 study. Pt didn't answer , left voice message . documented in this [facility]10-28-2022 History of Present illness Narrative* Christina Cerna RN - 09/24/2022 11:43 AM EDT Name: Jocelyne Lucas [facility]#: [id number] Date: 09/24/2022 GLUCOSE - BREATH HYDROGEN & [...] completed. .Christina Cerna RN documented in this [facility]10-03-2022 Miscellaneous Notes* Telephone Encounter - Marsha Butts Coordinator - 08/30/2022 2:17 PM EDT Called patient to remind her about her missed ePRO and fecal calprotectin test for the STARWP3 study. Pt didn't answer , left voice message . documented in this [facility]09-19-2022 Miscellaneous Notes* Telephone Encounter - [...] calprotectin by mail . documented in this encounterCleveland Clinic Luther[facility] Hospital09-16-2022 History of Present illness Narrative* Kelley [...] 13, 2022 6:45 PM documented in this encounterCleveland Clinic Luther[facility] Hospital09-16-2022 History of Present illness Narrative* Kelley [...] By Kelley Menchaca RN documented in this encounterCleveland Clinic Lutheran Hospital09-16-2022 History of Present illness Narrative* Josh Venice - 08/13/2022 6:15 PM EDT INFORMED CONSENT STUDY TITLE: Prospective Observational Study to Validate a Novel PRO Tool and Imaging Index Items in Stricturing Crohn s Disease IRB NO.: [id number] Sponsor: [facility] TELEVISION SPECIALIST: Dr. Jimy Barrios M.D. Patient [facility] Research Contact Information: Josh Millard E-mail: [email or web address] Nadine Davies E-mail: [email or web address] The Patient was provided the study [...] a copy of signed informed consent. Time: 0615PM Date: 08/16/2022 Consent Obtained by: Elda Sutton documented in this encounterCleveland Clinic Lutheran Hospital09-16-2022 History of Present illness Narrative* Elda Sutton Research Coordinator - 08/13/2022 6:15 PM EDT INFORMED CONSENT STUDY TITLE: Prospective Observational Study to Validate a Novel PRO Tool and Imaging Index Items in Stricturing Crohn s Disease IRB NO.: [id number] Sponsor: [facility] TELEVISION SPECIALIST: Dr. Jimy Barrios M.D. Patient [facility] Research Contact Information: Josh Millard E-mail: Elda Sutton E-mail: The Patient was provided the study informed [...] Elda Sutton Research Coordinator documented in this encounterCleveland Clinic Lutheran Hospital09-16-2022 History of Present illness Narrative* RT Keira(Beth) - 08/13/2022 6:00 PM EDT Radiology Service [...] 13, 2022 8:26 PM documented in this encounterCleveland Clinic Lutheran Hospital08-08-2022 Instructions* Patient Instructions* Jennifer Flores MD [...] If you do not have a responsible school bus driver/custodian (family member or friend) with you to [...] your exam. 2 10/2019 documented in this encounterCleveland Clinic Lutheran Hospital08-08-2022 History of Present illness Narrative* Cuco Gonzalez MD - 07/05/2022 7:45 AM EDT NAME: Jocelyne [facility] NO: [id number] REASON FOR VISIT Jocelyne Hudsonquang is a 37 year old female who [...] she was prescribed flagyl and symptoms resolved.Labs [id number] provided significant for elevated CRP to 5 in 10/2017, and Fecal calpro 90 in 05/2018. Last C-scope ~2018 per pt, records unavailable, CD did not look active, however she has a stricture in the ileocolonic region, never needed dilation. Ms. Lucas is here today as her local GI is retiring, from [place], [place]. She follows with [facility], planning [...] NSAIDs Former smoker- quit 10 years ago (CLAUDIAA) IBD HISTORY TEMPLATE Diagnosis Crohn's Disease: Date [...] a year a the discretion of her Video Conference Specialist, since seems to be well controlled, and has only taken it once since last year, less than 2 weeks a go for both and CD symptoms. Last colonoscopy 2018 was unremarkable per pt. Most significant GI [...] Humira since 2018 (also on it from 6857-8377)- started mostly for . However, she only [...] others. Cuco Gonzalez MD documented in this encounterCleveland Clinic Luther[facility] Hospital08-04-2022 Miscellaneous Notes* Telephone Encounter - Soledad [...] provided. Soledad Bhatia RN documented in this encounterCleveland Clinic Lutheran HospitalEvaluation note* Diagnosis Crohn's disease of both small and large intestine without complication (HCC)- Primary Regional enteritis of small intestine with large intestine Crohn's disease of small and large intestines with complication (HCC) Bloating Flatulence, eructation, and gas pain documented [facility] this encounter [facility]* Diagnosis Crohn's disease of both small [...] and large intestines with complication (HCC)- Primary [facility] current use of systemic steroids Encounter for long-term (current) use of steroids [facility] Vitamin D deficiency- Primary Unspecified vitamin D deficiency [facility]* 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 Encounter for [...] (HCC)- Primary [facility] Diagnosis Crohn's disease of small and large intestines with complication (HCC)- Primary [facility]* Diagnosis Crohn's disease with complication, unspecified gastrointestinal tract location (HCC)- Primary [facility] Diagnosis Crohn's disease with complication, unspecified gastrointestinal tract location (HCC)- Primary [facility]* Diagnosis Crohn's disease of small and large intestines with complication (HCC) [facility] Diagnosis Endometriosis Endometriosis, site unspecified Pelvic pain in female Unspecified symptom associated with female genital organs [facility]* 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 Other and unspecified noninfectious gastroenteritis and colitis Back stiffness Other symptoms referable to back Bilateral sacroiliitis (HCC) Vision changes Unspecified visual disturbance Crohn's disease of both small and large intestine with other complication (HCC) [facility]* Diagnosis Abnormal coagulation profile- Primary [facility]* Diagnosis Adenomyosis Endometriosis of uterus Dysmenorrhea Abnormal uterine bleeding Unspecified disorder of menstruation and other abnormal bleeding from female genital tract [facility]* Diagnosis Pre-op testing- Primary Preoperative examination, unspecified Adenomyosis Endometriosis of uterus Dysmenorrhea Abnormal uterine bleeding Unspecified disorder of menstruation and other abnormal bleeding from female genital tract [facility] encounter [facility]* Diagnosis Antiphospholipid syndrome (HCC)- Primary Primary hypercoagulable state Hypercoagulable state (HCC) Primary hypercoagulable state Adenomyosis Endometriosis of uterus Dysmenorrhea Abnormal uterine bleeding Unspecified disorder of menstruation and other abnormal bleeding from female genital tract [facility]* Diagnosis Antiphospholipid syndrome (HCC)- Primary Primary hypercoagulable state [facility] current use of anticoagulant Long-term (current) use of anticoagulants Adenomyosis Endometriosis of uterus Dysmenorrhea Abnormal uterine bleeding Unspecified disorder of menstruation and other abnormal bleeding from female genital tract [facility] Diagnosis Antiphospholipid syndrome (HCC) Primary [...] female genital tract [facility]* Diagnosis Arthritis associated with inflammatory [...] female genital tract [facility]* Diagnosis Antiphospholipid syndrome (HCC) Primary hypercoagulable state Hypercoagulable state (HCC) Primary hypercoagulable state Adenomyosis Endometriosis of uterus Dysmenorrhea Abnormal uterine bleeding Unspecified disorder of menstruation and other abnormal bleeding from female genital tract [facility]* Diagnosis Cigarette nicotine dependence without complication- Primary Tobacco use disorder Adenomyosis Endometriosis of uterus Dysmenorrhea Abnormal uterine bleeding Unspecified disorder of menstruation and other abnormal bleeding from female genital tract [facility]* Diagnosis Cigarette nicotine dependence without complication Tobacco use disorder Adenomyosis Endometriosis of uterus Dysmenorrhea Abnormal uterine bleeding Unspecified disorder of menstruation and other abnormal bleeding from female genital tract [facility]* Diagnosis Cigarette nicotine dependence without complication Tobacco use disorder [facility]* Diagnosis Post-operative state- Primary Other postprocedural status Adenomyosis Endometriosis of uterus Endometriosis determined by laparoscopy [facility] Diagnosis Post-operative state- Primary Other postprocedural status [facility]* Diagnosis Crohn's disease of small and large intestines with complication (HCC)- Primary [facility]* Diagnosis Post-operative state Other postprocedural status [facility]* Diagnosis Ankylosing spondylitis, unspecified site of spine (HCC)- Primary Crohn's disease with complication, unspecified gastrointestinal tract location (HCC) Regular astigmatism of both eyes Regular astigmatism [facility]* Diagnosis Bilateral sacroiliitis (HCC) Arthritis associated with inflammatory bowel disease Other and unspecified noninfectious gastroenteritis and colitis Back stiffness Other symptoms referable to back [facility]* Diagnosis Crohn's disease (HCC)- Primary Regional enteritis of unspecified site Crohn's disease of small and large intestines with complication (HCC) Postoperative pain Other acute postoperative pain S/P small bowel resection Other postprocedural status Nicotine use disorder, F17.2 Tobacco use disorder Postoperative pain Other acute postoperative pain Small intestinal bacterial overgrowth (SIBO)- Primary Crohn's disease of both small and large intestine with other complication (HCC) Nausea Nausea alone [facility] Diagnosis Crohn's disease (HCC)- Primary Regional enteritis of unspecified site Crohn's disease of small and large intestines with complication (HCC) Postoperative pain Other acute postoperative pain S/P small bowel resection Other postprocedural status Nicotine use disorder, F17.2 Tobacco use disorder Postoperative pain Other acute postoperative pain Crohn's disease of both small and large intestine with other complication (HCC)- Primary Nausea Nausea alone Fatigue, unspecified type Crohn's disease of small and large intestines with complication (HCC) Abdominal bloating Flatulence, eructation, and gas pain Small intestinal bacterial overgrowth (SIBO) [facility]* Diagnosis Crohn's disease (HCC)- Primary Regional enteritis of unspecified site Crohn's disease of small and large intestines with complication (HCC) Postoperative pain Other acute postoperative pain S/P small bowel resection Other postprocedural status Nicotine use disorder, F17.2 Tobacco use disorder Postoperative pain Other acute postoperative pain Crohn's disease of both small and large intestine with other complication (HCC)- [facility] Diagnosis Crohn's disease (HCC)- Primary Regional enteritis of unspecified site Crohn's disease of small and large intestines with complication (HCC) Postoperative pain Other acute postoperative pain S/P small bowel resection Other postprocedural status Nicotine use disorder, F17.2 Tobacco use disorder Postoperative pain Other acute postoperative pain Crohn's disease of both small and large intestine with other complication (HCC) Nausea Nausea alone Fatigue, unspecified type Abdominal bloating Flatulence, eructation, and gas pain [facility] Diagnosis Crohn's disease (HCC)- Primary Regional enteritis of unspecified site Crohn's disease of small and large intestines with complication (HCC) Postoperative pain Other acute postoperative pain S/P small bowel resection Other postprocedural status Nicotine use disorder, F17.2 Tobacco use disorder Postoperative pain Other acute postoperative pain Crohn's disease of small and large intestines with complication (HCC)- Primary documented in this encounter [facility] note* Diagnosis Crohn's disease (HCC)- Primary Regional enteritis of unspecified site Crohn's disease of small and large intestines with complication (HCC) Postoperative pain Other acute postoperative pain S/P small bowel resection Other postprocedural status Nicotine use disorder, F17.2 Tobacco use disorder Postoperative pain Other acute postoperative pain Crohn's disease of small and large intestines with complication (HCC)- Primary documented in this encounter [facility] note* Diagnosis Crohn's disease (HCC)- Primary Regional enteritis of unspecified site Crohn's disease of small and large intestines with complication (HCC) Postoperative pain Other acute postoperative pain S/P small bowel resection Other postprocedural status Nicotine use disorder, F17.2 Tobacco use disorder Postoperative pain Other acute postoperative pain Crohn's disease with complication, unspecified gastrointestinal tract location (HCC)- Primary [facility] Diagnosis Crohn's disease (HCC)- Primary Regional enteritis of unspecified site Crohn's disease of small and large intestines with complication (HCC) Postoperative pain Other acute postoperative pain S/P small bowel resection Other postprocedural status Nicotine use disorder, F17.2 Tobacco use disorder Postoperative pain Other acute postoperative pain Crohn's disease with complication, unspecified gastrointestinal tract location (HCC)- Primary documented in this encounter [facility] note* Diagnosis Crohn's disease (HCC)- Primary Regional enteritis of unspecified site Crohn's disease of small and large intestines with complication (HCC) Postoperative pain Other acute postoperative pain S/P small bowel resection Other postprocedural status Nicotine use disorder, F17.2 Tobacco use disorder Postoperative pain Other acute postoperative pain Crohn's disease of small and large intestines with complication (HCC) [facility] Diagnosis Crohn's disease (HCC)- Primary Regional enteritis of unspecified site Crohn's disease of small and large intestines with complication (HCC) Postoperative pain Other acute postoperative pain S/P small bowel resection Other postprocedural status Nicotine use disorder, F17.2 Tobacco use disorder Postoperative pain Other acute postoperative pain Crohn's disease of both small and large intestine with other complication (HCC) Crohn's disease of small and large intestines with complication (HCC) [facility] Crohn's disease (HCC)- Primary Regional enteritis of unspecified site Crohn's disease of small and large intestines with complication (HCC) Postoperative pain Other acute postoperative pain S/P small bowel resection Other postprocedural status Nicotine use disorder, F17.2 Tobacco use disorder Postoperative pain Other acute postoperative pain Crohn's disease of both small and large intestine with other complication (HCC) Crohn's disease of small and large intestines with complication (HCC) [facility] Diagnosis Crohn's disease (HCC)- Primary Regional enteritis of unspecified site Crohn's disease of small and large intestines with complication (HCC) Postoperative pain Other acute postoperative pain S/P small bowel resection Other postprocedural status Nicotine use disorder, F17.2 Tobacco use disorder Postoperative pain Other acute postoperative pain Crohn's disease of small and large intestines with complication (HCC)- Primary [facility] Diagnosis Crohn's disease (HCC)- Primary Regional enteritis of unspecified site Crohn's disease of small and large intestines with complication (HCC) Postoperative pain Other acute postoperative pain S/P small bowel resection Other postprocedural status Nicotine use disorder, F17.2 Tobacco use disorder Postoperative pain Other acute postoperative pain Crohn's disease of both small and large intestine with other complication (HCC) Nausea Nausea alone [facility] Diagnosis Crohn's disease (HCC)- Primary Regional enteritis of unspecified site Crohn's disease of small and large intestines with complication (HCC) Postoperative pain Other acute postoperative pain S/P small bowel resection Other postprocedural status Nicotine use disorder, F17.2 Tobacco use disorder Postoperative pain Other acute postoperative pain Crohn's disease of small and large intestines with complication (HCC)- Primary Tobacco use Tobacco use disorder Vitamin D deficiency Unspecified vitamin D deficiency Ankylosing spondylitis of lumbar region (HCC) Ankylosing spondylitis Crohn's disease of large intestine with other complication (HCC) [facility] Diagnosis Crohn's disease (HCC)- Primary Regional enteritis of unspecified site Crohn's disease of small and large intestines with complication (HCC) Postoperative pain Other acute postoperative pain S/P small bowel resection Other postprocedural status Nicotine use disorder, F17.2 Tobacco use disorder Postoperative pain Other acute postoperative pain Ankylosing spondylitis, unspecified site of spine (HCC)- Primary Crohn's disease with complication, unspecified gastrointestinal tract location (HCC) Regular astigmatism of both eyes Regular astigmatism documented in this encounter [facility] for referral (narrative)* Outpatient Procedure (Routine) - Closed Specialty Diagnoses / Procedures Referred By Neisha chao Referred To Contact [facility] Diagnoses Crohn's disease of both small and large intestine without complication (HCC) Crohn's disease of small and large intestines with complication (HCC) Procedures COLONOSCOPY DIAGNOSTIC COLONOSCOPY FLX DX W/COLLJ SPEC WHEN PFRMD Cuco Gonzalez MD [address] [place] [address] [facility] [address] [place] [address] Referral ID Status Reason Start Date Expiration Date V isits Requested Visits Authorized [id number] Closed Auto-Generate d Referral 07/05/2022 07/05/2023 [address] [facility] for referral (narrative)* Diagnostic Procedure Only (Routine) - Closed Specialty Diagnoses / Procedures Referred By Neisha chao Referred To Contact XR IMAGING Diagnoses Back stiffness Arthritis associated with inflammatory bowel disease Procedures XR THORACIC GENERAL 3V AP/LAT/SWIMMERS RADEX SPINE THORACIC 3 VIEWS Franchesca Zuniga MD [address] [place] [address] Xr Imaging Referral ID Status Reason Start Date Expiration Date V isits Requested Visits Authorized [id number] Closed Auto-Generate d Referral 01/19/2023 02/18/2024 1 1 * Diagnostic Procedure Only (Routine) - Closed Specialty Diagnoses / Procedures Referred By Contac t Referred To Contact XR IMAGING Diagnoses Bilateral sacroiliitis (HCC) Arthritis associated with inflammatory bowel disease Procedures XR SACROILIAC JOINTS 2V AP PELVIS/FERGUESON RADIOLOGIC EXAMINATION SACROILIAC JNTS <3 VIEWS Franchesca Zuniga MD [address] [place] [address] Xr Imaging Referral ID Status Reason Start Date Expiration Date V isits Requested Visits Authorized [id number] Closed Auto-Generate d Referral 01/19/2023 02/18/2024 1 1 * Consult, Test, Treat (Routine) - Closed Specialty Diagnoses / Procedures Referred By Julio Cesarac t Referred To Contact [facility] Diagnoses Vision changes Procedures CONSULT TO OPHTHALMOLOGY OFFICE/OUTPATIENT [facility] MDM 60-74 MINUTES Franchesca Zuniga MD [address] [place] [address] [facility] [address] [place] [address] Referral ID Status Reason Start Date Expiration Date V isits Requested Visits Authorized [id number] Closed PCP Requested Referral 01/19/2023 01/19/2024 [address] [facility] for referral (narrative)* Outpatient Procedure (Routine) - Pending Review Specialty Diagnoses / Procedures [facility] Diagnoses Crohn's disease of small and large intestines with complication (HCC) Procedures ECG COMPLETE ECG ROUTINE ECG W/LEAST 12 LDS W/I&R Joshua Shaffer MD [address] [place] [address] [facility] [address] [place] [address] Referral ID Status Reason Start Date Expiration Date Visits Requested Visits Authorized [id number] Pending Review Auto-Generat ed Referral 01/29/2023 01/28/2024 [address] [facility] for referral (narrative)* Diagnostic Procedure Only (Routine) - Closed Specialty Diagnoses / Procedures Referred By Contac t Referred To Contact XR IMAGING Diagnoses Back stiffness Arthritis associated with inflammatory bowel disease Procedures XR THORACIC GENERAL 3V AP/LAT/SWIMMERS RADEX SPINE THORACIC 3 VIEWS Franchesca Zuniga MD [address] [place] [address] [place] [address] Referral ID Status Reason Start Date Expiration Date V isits Requested Visits Authorized [id number] Closed Auto-Generate d Referral 01/19/2023 02/18/2024 1 1 * Diagnostic Procedure Only (Routine) - Closed Specialty Diagnoses / Procedures [facility] To Contact XR IMAGING Diagnoses Bilateral sacroiliitis (HCC) Arthritis associated with inflammatory bowel disease Procedures XR SACROILIAC JOINTS 2V AP PELVIS/FERGUESON RADIOLOGIC EXAMINATION SACROILIAC JNTS <3 VIEWS Franchesca Zuniga MD [address] [place] [address] [place] [address] Referral ID Status Reason Start Date Expiration Date V isits Requested Visits Authorized [id number] Closed Auto-Generate d Referral 01/19/2023 02/18/2024 [address] [facility] for referral (narrative)* Outpatient Procedure (Routine) - Authorized Specialty Diagnoses / Procedures [facility] Diagnoses Crohn's disease of both small and large intestine with other complication (HCC) Procedures COLONOSCOPY DIAGNOSTIC COLONOSCOPY DIAGNOSTIC COLONOSCOPY FLX DX W/COLLJ SPEC WHEN PFIlia Dailey, RENNY [address] [place] [address] [address] Referral ID Status Reason Start Date Expiration Date Visits Requested Visits Authorized [id number] Authorized Auto-Generat ed Referral 4 11/13/2025 1 1 * Consult, Test, Treat (Routine) - Authorized Specialty Diagnoses / Procedures Referred By Contac t Referred To Contact Nutrition Diagnoses Crohn's disease of both small and large intestine with other complication (HCC) Nausea Fatigue, unspecified type Abdominal bloating Procedures CONSULT TO NUTRITION THERAPY MEDICAL NUTRITION ASSMT&IVNTJ INDIV EACH [address] [place] Ilia Elizabeth PA-C [address] [place] [address] Referral ID Status Reason Start Date Expiration Date Visits Requested Visits Authorized [id number] Authorized PCP Requested Referral 4 11/13/2025 1 4 * Outpatient Procedure (Routine) - Authorized Specialty Diagnoses / Procedures Referred By Contac t Referred To Contact [facility] Diagnoses Nausea Abdominal bloating Procedures BREATH TEST GLUCOSE BREATH HYDROGEN/METHANE TEST Ilia Elizabeth PA-C [address] [place] [address] [facility] [address] [place] [address] Referral ID Status Reason Start Date Expiration Date Visits Requested Visits Authorized [id number] Authorized Auto-Generat ed Referral 4 11/13/2025 1 1 * Outpatient Procedure (Routine) - Authorized Specialty Diagnoses / Procedures Referred By Contac t Referred To Contact [facility] Diagnoses Crohn's disease of both small and large intestine with other complication (HCC) Nausea Procedures EGD DIAGNOSTIC ESOPHAGOGASTRODUODENOSCO PY TRANSORAL DIAGNOSTIC Ilia Elizabeth PA-C [address] [place] [address] [facility] [address] [place] [address] Referral ID Status Reason Start Date Expiration Date Visits Requested Visits Authorized [id number] Authorized Auto-Generat ed Referral 4 11/13/2025 1 1 * Consult, Test, Treat (Routine) - Authorized Specialty Diagnoses / Procedures Referred By Neisha chao Referred To Contact Rheumatology Diagnoses Crohn's disease of both small and large intestine with other complication (HCC) Procedures CONSULT TO RHEUM/IMMUN DISEASE OFFICE/OUTPATIENT NEW [facility] MDM 60 MINUTES Ilia Elizabeth PA-C [address] [place] [id number] Referral ID Status Reason Start Date Expiration Date Visits Requested Visits Authorized [id number] Authorized PCP Requested Referral 4 11/13/2025 1 1 * MRI/CT (Routine) - Authorized Specialty Diagnoses / Procedures Referred By Neisha chao Referred To Contact MR IMAGING Diagnoses Crohn's disease of both small and large intestine with other complication (HCC) Crohn's disease of small and large intestines with complication (HCC) Procedures MRI PEL ENTEROG WO/W IVCON MRI PELVIS W/O & W/CONTRAST MATERIAL Ilia Elizabeth PA-C [address] [place] [address] Mr Imaging [facility] Referral ID Status Reason Start Date Expiration Date Visits Requested Visits Authorized [id number] Authorized Auto-Generat ed Referral 4 12/13/2025 1 1 * MRI/CT (Routine) - New Request Specialty Diagnoses / Procedures Referred By Neisha chao Referred To Contact MR IMAGING Diagnoses Crohn's disease of both small and large intestine with other complication (HCC) Crohn's disease of small and large intestines with complication (HCC) Procedures MRI ABD ENTEROG WO/W IVCON MRI ABDOMEN W/O & W/CONTRAST MATERIAL MRI PELVIS W/O & W/CONTRAST MATERIAL Ilia Elizabeth PA-C [address] [place] [address] Mr Imaging [place] [address] Referral ID Status Reason Start Date Expiration Date Visits Requested Visits Authorized [id number] New Request Auto-Generat ed Referral 12/13/2025 [address] [facility] for referral (narrative)* Outpatient Procedure (Routine) - Closed Specialty Diagnoses / Procedures Referred By Neisha chao Referred To Contact [facility] Diagnoses Crohn's disease of both small and large intestine with other complication (HCC) Procedures COLONOSCOPY DIAGNOSTIC COLONOSCOPY DIAGNOSTIC COLONOSCOPY FLX DX W/COLLJ SPEC WHEN PFRMD Ilia Elizabeth PA-C [address] [place] [id number] [facility] [address] [place] [address] Referral ID Status Reason Start Date Expiration Date V isits Requested Visits Authorized [id number] Closed Auto-Generate d Referral 11/13/2024 11/13/2025 1 1 * Outpatient Procedure (Routine) - Closed Specialty Diagnoses / Procedures Referred By Neisha chao Referred To Contact [facility] Diagnoses Crohn's disease of both small and large intestine with other complication (HCC) Nausea Procedures EGD DIAGNOSTIC ESOPHAGOGASTRODUODENOSCO PY TRANSORAL DIAGNOSTIC Ilia Elizabeth PA-C [address] [place] [address] [facility] [place] [address] [place], [place] [id number] Referral ID Status Reason Start Date Expiration Date V isits Requested Visits Authorized [id number] Closed Auto-Generate d Referral 11/13/2024 11/13/2025 [address] [facility] for visit Narrative* Outpatient Procedure (Routine) - Closed Specialty Diagnoses / Procedures Referred By Contac t Referred To Contact [facility] [place] Diagnoses Crohn's disease of both small and large intestine without complication (HCC) Crohn's disease of small and large intestines with complication (HCC) Procedures COLONOSCOPY DIAGNOSTIC COLONOSCOPY FLX DX W/COLLJ SPEC WHEN Cuco Caicedo MD [address] [place] [address] [address] Referral ID Status Reason Start Date Expiration Date V isits Requested Visits Authorized [id number] Closed Auto-Generate d Referral 07/05/2022 07/05/2023 [address] [facility] for visit Narrative* Diagnostic Procedure Only (Routine) - Closed Specialty Diagnoses / Procedures Referred By Contac t Referred To Contact XR IMAGING Diagnoses Back stiffness Arthritis associated with inflammatory bowel disease Procedures XR THORACIC GENERAL 3V AP/LAT/SWIMMERS RADEX SPINE THORACIC 3 VIEWS Franchesca Zuniga MD [address] [place] [address] Xr Imaging [place] [address] Referral ID Status Reason Start Date Expiration Date V isits Requested Visits Authorized [id number] Closed Auto-Generate d Referral 01/19/2023 02/18/2024 [address] [facility] for visit Narrative* Outpatient Procedure (Routine) - Closed Specialty Diagnoses / Procedures Referred By Contac t Referred To Contact [facility] Diagnoses Crohn's disease of both small and large intestine with other complication (HCC) Procedures COLONOSCOPY DIAGNOSTIC COLONOSCOPY DIAGNOSTIC COLONOSCOPY FLX DX W/COLLJ SPEC WHEN Ilia Burks PA-C [address] [place] [address] [address] Referral ID Status Reason Start Date Expiration Date V isits Requested Visits Authorized [id number] Closed Auto-Generate d Referral 11/13/2024 11/13/2025 1 1 [facility] Summary Purpose Family History No Family History Records FoundNo Family History Records FoundNo Family History Records FoundNo Family History Records FoundNo Family History Records Found Advance Directives No Advanced Directives Records FoundNo Advanced Directives Records FoundNo Advanced Directives Records FoundNo Advanced Directives Records FoundNo Advanced Directives Records Found Reason for Referral Specialty Diagnoses / Procedures Referred By Neisha chao Referred To Contact Rheumatology Diagnoses Crohn's disease of both small and large intestine without complication (HCC) Crohn's disease of small and large intestines with complication (HCC) Procedures CONSULT TO RHEUM/IMMUN DISEASE OFFICE/OUTPATIENT [facility] MDM 60-74 MINUTES Cuco Gonzalez MD [address] [place] [address] Referral ID Status Reason Start Date Expiration Date Visits Requested Visits Authorized [id number] Authorized PCP Requested Referral 07/05/2022 07/05/2023 1 1 Specialty Diagnoses / Procedures Referred By Neisha chao Referred To Contact [facility] Diagnoses Crohn's disease of both small and large intestine without complication (HCC) Crohn's disease of small and large intestines with complication (HCC) Procedures BREATH TEST GLUCOSE BREATH HYDROGEN/METHANE TEST Cuco Gonzalez MD [address] [place] [address] [address] Referral ID Status Reason Start Date Expiration Date Visits Requested Visits Authorized [id number] Authorized Auto-Generat ed Referral 07/05/2022 07/05/2023 1 1 Specialty Diagnoses / Procedures Referred By Neisha chao Referred To Contact [facility] Diagnoses Crohn's disease of both small and large intestine without complication (HCC) Crohn's disease of small and large intestines with complication (HCC) Procedures COLONOSCOPY DIAGNOSTIC COLONOSCOPY FLX DX W/COLLJ SPEC WHEN PFRMD Cuco Gonzalez MD [address] [place] [address] [address] Referral ID Status Reason Start Date Expiration Date Visits Requested Visits Authorized [id number] Pending Review Auto-Generat ed Referral 07/05/2022 07/05/2023 1 1 Specialty Diagnoses / Procedures Referred By Contac t Referred To Contact MR IMAGING Diagnoses Crohn's disease of both small and large intestine without complication (HCC) Crohn's disease of small and large intestines with complication (HCC) Procedures MRI PEL ENTEROG WO/W IVCON MRI PELVIS W/O & W/CONTRAST MATERIAL Cuco Gonzalez MD [address] [place] [address] Mr Imaging Referral ID Status Reason Start Date Expiration Date V isits Requested Visits Authorized [id number] Closed Auto-Generate d Referral 07/05/2022 08/04/2023 1 [...] W/O & W/CONTRAST MATERIAL Cuco Gonzalez MD [address] [place] [address] Mr Imaging Referral ID Status Reason Start Date Expiration Date Visits Requested Visits Authorized [id number] Authorized Auto-Generat ed Referral 07/28/2022 09/11/2022 2 2 Referral ID Status Reason Start Date Expiration Date V isits Requested Visits Authorized [id number] Closed Auto-Generate d Referral 07/28/2022 09/11/2022 2 2 Specialty Diagnoses / Procedures Referred By Contac t Referred To Contact Colon and Rectal Surgery Diagnoses Crohn's disease of small and large intestines with complication (HCC) Procedures CONSULT TO COLO-RECTAL SURGERY OFFICE/OUTPATIENT [facility] 60-74 MINUTES Roro Cain, COY.SHELL MOLD BONDER [address] [place] [address] Referral ID Status Reason Start Date Expiration Date Visits Requested Visits Authorized [id number] Authorized PCP Requested Referral 12/10/2022 12/10/2023 1 1 Specialty Diagnoses / Procedures Referred By Contac t Referred To Contact Nutrition Diagnoses Crohn's disease of small and large intestines with complication (HCC) Procedures CONSULT TO NUTRITION THERAPY OFFICE/OUTPATIENT [facility] 60-74 MINUTES Roro Cain, RADIOLOGY SPECIALIST.SHELL MOLD BONDER [address] [place] [address] Referral ID Status Reason Start Date Expiration Date Visits Requested Visits Authorized [id number] Authorized PCP Requested Referral 12/10/2022 12/10/2023 1 1 Specialty Diagnoses / Procedures Referred By Contac t Referred To Contact MR IMAGING Diagnoses Endometriosis Pelvic pain in female Procedures MRI FEMALE PELVIS WO/W IVCON MRI PELVIS W/O & W/CONTRAST MATERIAL Adrien Cruz MD [address] [place] [address] Mr Imaging Referral ID Status Reason Start Date Expiration Date Visits Requested Visits Authorized [id number] Pending Review Auto-Generat ed Referral 05/20/2023 06/18/2024 1 1 Specialty Diagnoses / Procedures Referred By Contac t Referred To Contact Ophthalmology Diagnoses Vision changes Procedures CONSULT TO OPHTHALMOLOGY OFFICE/OUTPATIENT [facility] 60-74 MINUTES Luz Goodwin, RADIOLOGY SPECIALIST.SHELL M[employer] BONDER [address] [place] [address] Referral ID Status Reason Start Date Expiration Date Visits Requested Visits Authorized [id number] Authorized PCP Requested Referral 05/19/2023 05/18/2024 1 1 Specialty Diagnoses / Procedures Referred By Contac t Referred To Contact Diagnoses Arthritis associated with inflammatory bowel disease Back stiffness Bilateral sacroiliitis (HCC) Luz Goodwin, RADIOLOGY SPECIALIST.SHELL M[employer] BONDER [address] [place] [address] Referral ID Status Reason Start Date Expiration Date V isits Requested Visits Authorized [id number] Authorized 04/19/2023 05/20/2024 1 1 Specialty Diagnoses / Procedures Referred By Contac t Referred To Contact Vascular Medicine Diagnoses Abnormal coagulation profile Procedures CONSULT TO VASCULAR MEDICINE OFFICE/OUTPATIENT [facility] 60-74 MINUTES Franchesca Zuniga MD [address] [place] [address] Referral ID Status Reason Start Date Expiration Date Visits Requested Visits Authorized [id number] Authorized PCP Requested Referral 06/06/2023 06/05/2024 1 1 Specialty Diagnoses / Procedures Referred By Contac t Referred To Contact Diagnoses Crohn's disease of both small and large intestine with other complication (HCC) Procedures CONSULT TO [facility] BEHAVIORAL MEDICINE OFFICE/OUTPATIENT [facility] 60 MINUTES Lamont Brown MD [address] [place] [address] Brenda Cat, PhD [address] [place] [address] Referral ID Status Reason Start Date Expiration Date Visits Requested Visits Authorized [id number] Authorized PCP Requested Referral 11/14/2025 1 1 Specialty Diagnoses / Procedures Referred By Contac t Referred To Contact Gastroenterology Diagnoses Crohn's disease of small and large intestines with complication (HCC) Procedures CONSULT TO GI BEHAVORIAL MEDICINE OFFICE/OUTPATIENT [facility] 60 MINUTES Ilia Elizabeth PA-C [address] [place] [address] Referral ID Status Reason Start Date Expiration Date Visits Requested Visits Authorized [id number] Authorized PCP Requested Referral 11/16/2025 1 1 Specialty Diagnoses / Procedures Referred By Julio Cesarac t Referred To Contact MR IMAGING Diagnoses Crohn's disease of both small and large intestine with other complication (HCC) Crohn's disease of small and large intestines with complication (HCC) Procedures MRI ABD ENTEROG WO/W IVCON MRI ABDOMEN W/O & W/CONTRAST MATERIAL MRI PELVIS W/O & W/CONTRAST MATERIAL Ilia Elizabeth PA-C [address] [place] [id number] [facility] [place] [address] Referral ID Status Reason Start Date Expiration Date V isits Requested Visits Authorized [id number] Closed Auto-Generate d Referral 11/13/2024 12/13/2025 1 1 Specialty Diagnoses / Procedures Referred By Julio Cesarac t Referred To Contact MR IMAGING Diagnoses Crohn's disease of both small and large intestine with other complication (HCC) Crohn's disease of small and large intestines with complication (HCC) Procedures MRI PEL ENTEROG WO/W IVCON MRI PELVIS W/O & W/CONTRAST MATERIAL Ilia Elizabeth PA-C [address] [place] [address] [facility] [place] [address] Referral ID Status Reason Start Date Expiration Date V isits Requested Visits Authorized [id number] Closed Auto-Generate d Referral 11/13/2024 12/13/2025 1 1 Medications Administered Section Inactive Administered [...] (unrecogniz ed section and content) Reason Comments Radiology MRI Specialty Diagnoses / Procedures Referred By Neisha t Referred To Contact MR IMAGING Diagnoses Crohn's disease of both small and large intestine with other complication (HCC) Crohn's disease of small and large intestines with complication (HCC) Procedures MRI PEL ENTEROG WO/W IVCON MRI PELVIS W/O & W/CONTRAST MATERIAL Ilia Elizabeth PA-C [address] [id number] [facility] [place] [address] Referral ID Status Reason Start Date Expiration Date V isits Requested Visits Authorized [id number] Closed Auto-Generate d Referral 11/13/2024 12/13/2025 1 1 Reason Comments Consult Specialty Diagnoses / Procedures Referred By Contac t Referred To Contact Diagnoses Antiphospholipid syndrome (HCC) Hypercoagulable state (HCC) Procedures CONSULT TO HEMATOLOGY/ONCOLOGY OFFICE/OUTPATIENT [facility] MDM 60-74 MINUTES Joshua Shaffer MD [address] [place] [address] Referral ID Status Reason Start Date Expiration Date V isits Requested Visits Authorized [id number] Closed PCP Requested Referral 09/19/2023 09/18/2024 1 [...] W/O & W/CONTRAST MATERIAL Cuco Gonzalez MD [address] [phone] Mr Imaging Referral ID Status Reason Start Date Expiration Date V isits Requested Visits Authorized [id number] Closed Auto-Generate d Referral 07/28/2022 09/11/2022 2 [...] GLUCOSE BREATH HYDROGEN/METHANE TEST Cuco Gonzalez MD [address] [place] [address] [facility] [address] [place] [id number] Referral ID Status Reason Start Date Expiration Date V isits Requested Visits Authorized [id number] Closed Auto-Generate d Referral 07/05/2022 07/05/2023 1 [...] NEW HIGH MDM 60-74 MINUTES Roro Cain APRN.[employer] [address] [place] [address] Referral ID Status Reason Start Date Expiration Date V isits Requested Visits Authorized [id number] Closed PCP Requested Referral 12/10/2022 12/10/2023 1 1 Reason Comments Blueprint Reader - Other Patient Update Reason Comments Pre-Op Exam Reason Comments Follow Up Phone Call All Clear Reason Comments Returning Patient's Call Blueprint Reader - Other Patient Question Reason Comments Results Reason Comments Blueprint Reader - Other Patient Question Reason Comments Orders Humira Induction & M aintenance Reason Onset Date Comments SPP Inflammatory Conditions - Treatment Referral 05/13/2023 [employer] Insurance Authorization 05/13/2023 DIOGO submi ssion pending Reason Onset Date Comments [...] Comments Post-Op Visit Reason Comments Medication Question Reason Comments Refill Request Reason Comments Comprehensive Health Assessment Reason Comments Medication Problem Switch pharmacy to [facility] per pt request Reason Comments Patient Question Reason Comments Crohns Reason Comments Consult GI Psych Reason Comments Nutrition Assessment Specialty Diagnoses / Procedures Referred By Contac t Referred To Contact Nutrition Diagnoses Crohn's disease of both small and large intestine with other complication (HCC) Nausea Fatigue, unspecified type Abdominal bloating Procedures CONSULT TO NUTRITION THERAPY MEDICAL NUTRITION ASSMT&IVNTJ INDIV EACH [address] [place] Ilia Elizabeth PA-C [address] [place] [address] Referral ID Status Reason Start Date Expiration Date Visits Requested Visits Authorized [id number] Authorized PCP Requested Referral 4 11/13/2025 1 4 Reason Comments Orders Starting Rinvoq Reason Onset Date Comments SPP Inflammatory Conditions - Treatment Referral 11/29/2024 [employer] Insurance Authorization 11/29/2024 PA submi ssion pending Reason Onset Date Comments Refill Request 12/07/2024 Reason Comments Medication Problem Clarification - Rinv oq 45 mg tablets Reason Comments IBD Follow Up Source Comments (unrecognize d section and content) In the event this informatio n is protected by the Federal Confidentiality of Alcohol and Drug Abuse Patient Records regulations: The Federal rules restrict any use of the information to criminally investigate or prosecute any alcohol or drug abuse patient.[facility] the event this information is protected by the Federal Confidentiality of Alcohol and Drug Abuse Patient Records regulations: The Federal rules restrict any use of the information to criminally investigate or prosecute any alcohol or drug abuse patient.[facility] HospitalIn the event this information is protected by the Federal Confidentiality of Alcohol and Drug Abuse Patient Records regulations: The Federal rules restrict any use of the information to criminally investigate or prosecute any alcohol or drug abuse patient.[facility] HospitalIn the event this information is protected by the Federal Confidentiality of Alcohol and Drug Abuse Patient Records regulations: The Federal rules restrict any use of the information to criminally investigate or prosecute any alcohol or drug abuse patient.[facility] HospitalIn the event this information is protected by the Federal Confidentiality of Alcohol and Drug Abuse Patient Records regulations: The Federal rules restrict any use of the information to criminally investigate or prosecute any alcohol or drug abuse patient.[facility] HospitalIn the event this information is protected by the Federal Confidentiality of Alcohol and Drug Abuse Patient Records regulations: The Federal rules restrict any use of the information to criminally investigate or prosecute any alcohol or drug abuse patient.[facility] HospitalIn the event this information is protected by the Federal Confidentiality of Alcohol and Drug Abuse Patient Records regulations: The Federal rules restrict any use of the information to criminally investigate or prosecute any alcohol or drug abuse patient.[facility] HospitalIn the event this information is protected by the Federal Confidentiality of Alcohol and Drug Abuse Patient Records regulations: The Federal rules restrict any use of the information to criminally investigate or prosecute any alcohol or drug abuse patient.[facility] HospitalIn the event this information is protected by the Federal Confidentiality of Alcohol and Drug Abuse Patient Records regulations: The Federal rules restrict any use of the information to criminally investigate or prosecute any alcohol or drug abuse patient.[facility] HospitalIn the event this information is protected by the Federal Confidentiality of Alcohol and Drug Abuse Patient Records regulations: The Federal rules restrict any use of the information to criminally investigate or prosecute any alcohol or drug abuse patient.[facility] HospitalIn the event this information is protected by the Federal Confidentiality of Alcohol and Drug Abuse Patient Records regulations: The Federal rules restrict any use of the information to criminally investigate or prosecute any alcohol or drug abuse patient.[facility] HospitalIn the event this information is protected by the Federal Confidentiality of Alcohol and Drug Abuse Patient Records regulations: The Federal rules restrict any use of the information to criminally investigate or prosecute any alcohol or drug abuse patient.[facility] HospitalIn the event this information is protected by the Federal Confidentiality of Alcohol and Drug Abuse Patient Records regulations: The Federal rules restrict any use of the information to criminally investigate or prosecute any alcohol or drug abuse patient.[facility] HospitalIn the event this information is protected by the Federal Confidentiality of Alcohol and Drug Abuse Patient Records regulations: The Federal rules restrict any use of the information to criminally investigate or prosecute any alcohol or drug abuse patient.[facility] HospitalIn the event this information is protected by the Federal Confidentiality of Alcohol and Drug Abuse Patient Records regulations: The Federal rules restrict any use of the information to criminally investigate or prosecute any alcohol or drug abuse patient.[facility] HospitalIn the event this information is protected by the Federal Confidentiality of Alcohol and Drug Abuse Patient Records regulations: The Federal rules restrict any use of the information to criminally investigate or prosecute any alcohol or drug abuse patient.[facility] HospitalIn the event this information is protected by the Federal Confidentiality of Alcohol and Drug Abuse Patient Records regulations: The Federal rules restrict any use of the information to criminally investigate or prosecute any alcohol or drug abuse patient.[facility] HospitalIn the event this information is protected by the Federal Confidentiality of Alcohol and Drug Abuse Patient Records regulations: The Federal rules restrict any use of the information to criminally investigate or prosecute any alcohol or drug abuse patient.[facility] HospitalIn the event this information is protected by the Federal Confidentiality of Alcohol and Drug Abuse Patient Records regulations: The Federal rules restrict any use of the information to criminally investigate or prosecute any alcohol or drug abuse patient.[facility] HospitalIn the event this information is protected by the Federal Confidentiality of Alcohol and Drug Abuse Patient Records regulations: The Federal rules restrict any use of the information to criminally investigate or prosecute any alcohol or drug abuse patient.[facility] HospitalIn the event this information is protected by the Federal Confidentiality of Alcohol and Drug Abuse Patient Records regulations: The Federal rules restrict any use of the information to criminally investigate or prosecute any alcohol or drug abuse patient.[facility] HospitalIn the event this information is protected by the Federal Confidentiality of Alcohol and Drug Abuse Patient Records regulations: The Federal rules restrict any use of the information to criminally investigate or prosecute any alcohol or drug abuse patient.[facility] HospitalIn the event this information is protected by the Federal Confidentiality of Alcohol and Drug Abuse Patient Records regulations: The Federal rules restrict any use of the information to criminally investigate or prosecute any alcohol or drug abuse patient.[facility] HospitalIn the event this information is protected by the Federal Confidentiality of Alcohol and Drug Abuse Patient Records regulations: The Federal rules restrict any use of the information to criminally investigate or prosecute any alcohol or drug abuse patient.[facility] HospitalIn the event this information is protected by the Federal Confidentiality of Alcohol and Drug Abuse Patient Records regulations: The Federal rules restrict any use of the information to criminally investigate or prosecute any alcohol or drug abuse patient.[facility] HospitalIn the event this information is protected by the Federal Confidentiality of Alcohol and Drug Abuse Patient Records regulations: The Federal rules restrict any use of the information to criminally investigate or prosecute any alcohol or drug abuse patient.[facility] HospitalIn the event this information is protected by the Federal Confidentiality of Alcohol and Drug Abuse Patient Records regulations: The Federal rules restrict any use of the information to criminally investigate or prosecute any alcohol or drug abuse patient.[facility] HospitalIn the event this information is protected by the Federal Confidentiality of Alcohol and Drug Abuse Patient Records regulations: The Federal rules restrict any use of the information to criminally investigate or prosecute any alcohol or drug abuse patient.[facility] HospitalIn the event this information is protected by the Federal Confidentiality of Alcohol and Drug Abuse Patient Records regulations: The Federal rules restrict any use of the information to criminally investigate or prosecute any alcohol or drug abuse patient.[facility] HospitalIn the event this information is protected by the Federal Confidentiality of Alcohol and Drug Abuse Patient Records regulations: The Federal rules restrict any use of the information to criminally investigate or prosecute any alcohol or drug abuse patient.[facility] HospitalIn the event this information is protected by the Federal Confidentiality of Alcohol and Drug Abuse Patient Records regulations: The Federal rules restrict any use of the information to criminally investigate or prosecute any alcohol or drug abuse patient.[facility] HospitalIn the event this information is protected by the Federal Confidentiality of Alcohol and Drug Abuse Patient Records regulations: The Federal rules restrict any use of the information to criminally investigate or prosecute any alcohol or drug abuse patient.[facility] HospitalIn the event this information is protected by the Federal Confidentiality of Alcohol and Drug Abuse Patient Records regulations: The Federal rules restrict any use of the information to criminally investigate or prosecute any alcohol or drug abuse patient.[facility] HospitalIn the event this information is protected by the Federal Confidentiality of Alcohol and Drug Abuse Patient Records regulations: The Federal rules restrict any use of the information to criminally investigate or prosecute any alcohol or drug abuse patient.[facility] HospitalIn the event this information is protected by the Federal Confidentiality of Alcohol and Drug Abuse Patient Records regulations: The Federal rules restrict any use of the information to criminally investigate or prosecute any alcohol or drug abuse patient.[facility] HospitalIn the event this information is protected by the Federal Confidentiality of Alcohol and Drug Abuse Patient Records regulations: The Federal rules restrict any use of the information to criminally investigate or prosecute any alcohol or drug abuse patient.[facility] HospitalIn the event this information is protected by the Federal Confidentiality of Alcohol and Drug Abuse Patient Records regulations: The Federal rules restrict any use of the information to criminally investigate or prosecute any alcohol or drug abuse patient.[facility] HospitalIn the event this information is protected by the Federal Confidentiality of Alcohol and Drug Abuse Patient Records regulations: The Federal rules restrict any use of the information to criminally investigate or prosecute any alcohol or drug abuse patient.[facility] HospitalIn the event this information is protected by the Federal Confidentiality of Alcohol and Drug Abuse Patient Records regulations: The Federal rules restrict any use of the information to criminally investigate or prosecute any alcohol or drug abuse patient.[facility] HospitalIn the event this information is protected by the Federal Confidentiality of Alcohol and Drug Abuse Patient Records regulations: The Federal rules restrict any use of the information to criminally investigate or prosecute any alcohol or drug abuse patient.[facility] HospitalIn the event this information is protected by the Federal Confidentiality of Alcohol and Drug Abuse Patient Records regulations: The Federal rules restrict any use of the information to criminally investigate or prosecute any alcohol or drug abuse patient.[facility] HospitalIn the event this information is protected by the Federal Confidentiality of Alcohol and Drug Abuse Patient Records regulations: The Federal rules restrict any use of the information to criminally investigate or prosecute any alcohol or drug abuse patient.[facility] HospitalIn the event this information is protected by the Federal Confidentiality of Alcohol and Drug Abuse Patient Records regulations: The Federal rules restrict any use of the information to criminally investigate or prosecute any alcohol or drug abuse patient.[facility] HospitalIn the event this information is protected by the Federal Confidentiality of Alcohol and Drug Abuse Patient Records regulations: The Federal rules restrict any use of the information to criminally investigate or prosecute any alcohol or drug abuse patient.[facility] HospitalIn the event this information is protected by the Federal Confidentiality of Alcohol and Drug Abuse Patient Records regulations: The Federal rules restrict any use of the information to criminally investigate or prosecute any alcohol or drug abuse patient.[facility] HospitalIn the event this information is protected by the Federal Confidentiality of Alcohol and Drug Abuse Patient Records regulations: The Federal rules restrict any use of the information to criminally investigate or prosecute any alcohol or drug abuse patient.[facility] HospitalIn the event this information is protected by the Federal Confidentiality of Alcohol and Drug Abuse Patient Records regulations: The Federal rules restrict any use of the information to criminally investigate or prosecute any alcohol or drug abuse patient.[facility] HospitalIn the event this information is protected by the Federal Confidentiality of Alcohol and Drug Abuse Patient Records regulations: The Federal rules restrict any use of the information to criminally investigate or prosecute any alcohol or drug abuse patient.[facility] HospitalIn the event this information is protected by the Federal Confidentiality of Alcohol and Drug Abuse Patient Records regulations: The Federal rules restrict any use of the information to criminally investigate or prosecute any alcohol or drug abuse patient.[facility] HospitalIn the event this information is protected by the Federal Confidentiality of Alcohol and Drug Abuse Patient Records regulations: The Federal rules restrict any use of the information to criminally investigate or prosecute any alcohol or drug abuse patient.[facility] HospitalIn the event this information is protected by the Federal Confidentiality of Alcohol and Drug Abuse Patient Records regulations: The Federal rules restrict any use of the information to criminally investigate or prosecute any alcohol or drug abuse patient.[facility] HospitalIn the event this information is protected by the Federal Confidentiality of Alcohol and Drug Abuse Patient Records regulations: The Federal rules restrict any use of the information to criminally investigate or prosecute any alcohol or drug abuse patient.[facility] HospitalIn the event this information is protected by the Federal Confidentiality of Alcohol and Drug Abuse Patient Records regulations: The Federal rules restrict any use of the information to criminally investigate or prosecute any alcohol or drug abuse patient.[facility] HospitalIn the event this information is protected by the Federal Confidentiality of Alcohol and Drug Abuse Patient Records regulations: The Federal rules restrict any use of the information to criminally investigate or prosecute any alcohol or drug abuse patient.[facility] HospitalIn the event this information is protected by the Federal Confidentiality of Alcohol and Drug Abuse Patient Records regulations: The Federal rules restrict any use of the information to criminally investigate or prosecute any alcohol or drug abuse patient.[facility] HospitalIn the event this information is protected by the Federal Confidentiality of Alcohol and Drug Abuse Patient Records regulations: The Federal rules restrict any use of the information to criminally investigate or prosecute any alcohol or drug abuse patient.[facility] HospitalIn the event this information is protected by the Federal Confidentiality of Alcohol and Drug Abuse Patient Records regulations: The Federal rules restrict any use of the information to criminally investigate or prosecute any alcohol or drug abuse patient.[facility] HospitalIn the event this information is protected by the Federal Confidentiality of Alcohol and Drug Abuse Patient Records regulations: The Federal rules restrict any use of the information to criminally investigate or prosecute any alcohol or drug abuse patient.[facility] HospitalIn the event this information is protected by the Federal Confidentiality of Alcohol and Drug Abuse Patient Records regulations: The Federal rules restrict any use of the information to criminally investigate or prosecute any alcohol or drug abuse patient.[facility] HospitalIn the event this information is protected by the Federal Confidentiality of Alcohol and Drug Abuse Patient Records regulations: The Federal rules restrict any use of the information to criminally investigate or prosecute any alcohol or drug abuse patient.[facility] HospitalIn the event this information is protected by the Federal Confidentiality of Alcohol and Drug Abuse Patient Records regulations: The Federal rules restrict any use of the information to criminally investigate or prosecute any alcohol or drug abuse patient.[facility] HospitalIn the event this information is protected by the Federal Confidentiality of Alcohol and Drug Abuse Patient Records regulations: The Federal rules restrict any use of the information to criminally investigate or prosecute any alcohol or drug abuse patient.[facility] [facility] HospitalIn the event this information is protected by the Federal Confidentiality of Alcohol and Drug Abuse Patient Records regulations: The Federal rules restrict any use of the information to criminally investigate or prosecute any alcohol or drug abuse patient.[facility] HospitalIn the event this information is protected by the Federal Confidentiality of Alcohol and Drug Abuse Patient Records regulations: The Federal rules restrict any use of the information to criminally investigate or prosecute any alcohol or drug abuse patient.[facility] HospitalIn the event this information is protected by the Federal Confidentiality of Alcohol and Drug Abuse Patient Records regulations: The Federal rules restrict any use of the information to criminally investigate or prosecute any alcohol or drug abuse patient.[facility] HospitalIn the event this information is protected by the Federal Confidentiality of Alcohol and Drug Abuse Patient Records regulations: The Federal rules restrict any use of the information to criminally investigate or prosecute any alcohol or drug abuse patient.[facility] HospitalIn the event this information is protected by the Federal Confidentiality of Alcohol and Drug Abuse Patient Records regulations: The Federal rules restrict any use of the information to criminally investigate or prosecute any alcohol or drug abuse patient.[facility] HospitalIn the event this information is protected by the Federal Confidentiality of Alcohol and Drug Abuse Patient Records regulations: The Federal rules restrict any use of the information to criminally investigate or prosecute any alcohol or drug abuse patient.[facility] HospitalIn the event this information is protected by the Federal Confidentiality of Alcohol and Drug Abuse Patient Records regulations: The Federal rules restrict any use of the information to criminally investigate or prosecute any alcohol or drug abuse patient.[facility] HospitalIn the event this information is protected by the Federal Confidentiality of Alcohol and Drug Abuse Patient Records regulations: The Federal rules restrict any use of the information to criminally investigate or prosecute any alcohol or drug abuse patient.[facility] HospitalIn the event this information is protected by the Federal Confidentiality of Alcohol and Drug Abuse Patient Records regulations: The Federal rules restrict any use of the information to criminally investigate or prosecute any alcohol or drug abuse patient.[facility] HospitalIn the event this information is protected by the Federal Confidentiality of Alcohol and Drug Abuse Patient Records regulations: The Federal rules restrict any use of the information to criminally investigate or prosecute any alcohol or drug abuse patient.[facility] HospitalIn the event this information is protected by the Federal Confidentiality of Alcohol and Drug Abuse Patient Records regulations: The Federal rules restrict any use of the information to criminally investigate or prosecute any alcohol or drug abuse patient.[facility] HospitalIn the event this information is protected by the Federal Confidentiality of Alcohol and Drug Abuse Patient Records regulations: The Federal rules restrict any use of the information to criminally investigate or prosecute any alcohol or drug abuse patient.[facility] HospitalIn the event this information is protected by the Federal Confidentiality of Alcohol and Drug Abuse Patient Records regulations: The Federal rules restrict any use of the information to criminally investigate or prosecute any alcohol or drug abuse patient.[facility] HospitalIn the event this information is protected by the Federal Confidentiality of Alcohol and Drug Abuse Patient Records regulations: The Federal rules restrict any use of the information to criminally investigate or prosecute any alcohol or drug abuse patient.[facility] HospitalIn the event this information is protected by the Federal Confidentiality of Alcohol and Drug Abuse Patient Records regulations: The Federal rules restrict any use of the information to criminally investigate or prosecute any alcohol or drug abuse patient.[facility] HospitalIn the event this information is protected by the Federal Confidentiality of Alcohol and Drug Abuse Patient Records regulations: The Federal rules restrict any use of the information to criminally investigate or prosecute any alcohol or drug abuse patient.[facility] HospitalIn the event this information is protected by the Federal Confidentiality of Alcohol and Drug Abuse Patient Records regulations: The Federal rules restrict any use of the information to criminally investigate or prosecute any alcohol or drug abuse patient.[facility] HospitalIn the event this information is protected by the Federal Confidentiality of Alcohol and Drug Abuse Patient Records regulations: The Federal rules restrict any use of the information to criminally investigate or prosecute any alcohol or drug abuse patient.[facility] HospitalIn the event this information is protected by the Federal Confidentiality of Alcohol and Drug Abuse Patient Records regulations: The Federal rules restrict any use of the information to criminally investigate or prosecute any alcohol or drug abuse patient.[facility] HospitalIn the event this information is protected by the Federal Confidentiality of Alcohol and Drug Abuse Patient Records regulations: The Federal rules restrict any use of the information to criminally investigate or prosecute any alcohol or drug abuse patient.[facility] HospitalIn the event this information is protected by the Federal Confidentiality of Alcohol and Drug Abuse Patient Records regulations: The Federal rules restrict any use of the information to criminally investigate or prosecute any alcohol or drug abuse patient.[facility] HospitalIn the event this information is protected by the Federal Confidentiality of Alcohol and Drug Abuse Patient Records regulations: The Federal rules restrict any use of the information to criminally investigate or prosecute any alcohol or drug abuse patient.[facility] HospitalIn the event this information is protected by the Federal Confidentiality of Alcohol and Drug Abuse Patient Records regulations: The Federal rules restrict any use of the information to criminally investigate or prosecute any alcohol or drug abuse patient.[facility] HospitalIn the event this information is protected by the Federal Confidentiality of Alcohol and Drug Abuse Patient Records regulations: The Federal rules restrict any use of the information to criminally investigate or prosecute any alcohol or drug abuse patient.[facility] HospitalIn the event this information is protected by the Federal Confidentiality of Alcohol and Drug Abuse Patient Records regulations: The Federal rules restrict any use of the information to criminally investigate or prosecute any alcohol or drug abuse patient.[facility] HospitalIn the event this information is protected by the Federal Confidentiality of Alcohol and Drug Abuse Patient Records regulations: The Federal rules restrict any use of the information to criminally investigate or prosecute any alcohol or drug abuse patient.[facility] HospitalIn the event this information is protected by the Federal Confidentiality of Alcohol and Drug Abuse Patient Records regulations: The Federal rules restrict any use of the information to criminally investigate or prosecute any alcohol or drug abuse patient.[facility] HospitalIn the event this information is protected by the Federal Confidentiality of Alcohol and Drug Abuse Patient Records regulations: The Federal rules restrict any use of the information to criminally investigate or prosecute any alcohol or drug abuse patient.[facility] HospitalIn the event this information is protected by the Federal Confidentiality of Alcohol and Drug Abuse Patient Records regulations: The Federal rules restrict any use of the information to criminally investigate or prosecute any alcohol or drug abuse patient.[facility] INFORMATION SOURCE (unrecogn ized section and content) DATE CREATED AUTHOR 07/03/2022 [facility] DATE CREATED AUTHOR AUTHOR'S ORGANIZ ATION 03/13/2023 [facility] DATE CREATED AUTHOR AUTHOR'S ORGANIZ ATION 12/10/2023 [facility] DATE CREATED AUTHOR AUTHOR'S ORGANIZ ATION 05/13/2025 [facility] DATE CREATED AUTHOR AUTHOR'S ORGANIZ ATION 06/30/2025 [facility] Care Teams (unrecognized sec tion and content) Sanitary Engineer Relationship Specialty Start Date End Date Brenda Landon MD [address] [place] [address] PCP - General Family Medicine 01/19/23 Sanitary Engineer Relationship Specialty Start Date End Date Brenda Landon MD [address] [place] [address] PCP - General Family Medicine 01/19/23 Sanitary Engineer Relationship Specialty Start Date End Date Brenda Landon MD [address] [place] [address] PCP - General Family Medicine 01/19/23 Sanitary Engineer Relationship Specialty Start Date End Date Brenda Landon MD [address] [place] [address] PCP - General Family Medicine 01/19/23 Sanitary Engineer Relationship Specialty Start Date End Date Brenda Landon MD [address] [place] [address] PCP - General Family Medicine 01/19/23 Sanitary Engineer Relationship Specialty Start Date End Date Brenda Landon MD [address] [place] [address] PCP - General Family Medicine 01/19/23 Sanitary Engineer Relationship Specialty Start Date End Date Brenda Landon MD [address] [place] [address] PCP - General Family Medicine 01/19/23 Sanitary Engineer Relationship Specialty Start Date End Date Brenda Landon MD PCP - General Family Medicine 01/19/23 Sanitary Engineer Relationship Specialty Start Date End Date Brenda Landon MD PCP - General Family Medicine 01/19/23 Sanitary Engineer Relationship Specialty Start Date End Date Brenda Landon MD PCP - General Family Medicine 01/19/23 Sanitary Engineer Relationship Specialty Start Date End Date Brenda Landon MD PCP - General Family Medicine 01/19/23 Sanitary Engineer Relationship Specialty Start Date End Date Brenda Landon MD PCP - General Family Medicine 01/19/23 Sanitary Engineer Relationship Specialty Start Date End Date Brenda Landon MD PCP - General Family Medicine 01/19/23 Sanitary Engineer Relationship Specialty Start Date End Date Brenda Landon MD PCP - General Family Medicine 01/19/23 Sanitary Engineer Relationship Specialty Start Date End Date Brenda Landon MD PCP - General Family Medicine 01/19/23 Sanitary Engineer Relationship Specialty Start Date End Date Brenda Landon MD PCP - General Family Medicine 01/19/23 Sanitary Engineer Relationship Specialty Start Date End Date Brenda Landon MD PCP - General Family Medicine 01/19/23 Sanitary Engineer Relationship Specialty Start Date End Date Brenda Landon MD PCP - General Family Medicine 01/19/23 Sanitary Engineer Relationship Specialty Start Date End Date Brenda Landon MD PCP - General Family Medicine 01/19/23 Sanitary Engineer Relationship Specialty Start Date End Date Brenda Landon MD PCP - General Family Medicine 01/19/23 Sanitary Engineer Relationship Specialty Start Date End Date Brenda Landon MD PCP - General Family Medicine 01/19/23 Sanitary Engineer Relationship Specialty Start Date End Date Brenda Landon MD PCP - General Family Medicine 01/19/23 Sanitary Engineer Relationship Specialty Start Date End Date Brenda Landon MD PCP - General Family Medicine 01/19/23 Sanitary Engineer Relationship Specialty Start Date End Date Brenda Landon MD PCP - General Family Medicine 01/19/23 Sanitary Engineer Relationship Specialty Start Date End Date Brenda Landon MD PCP - General Family Medicine 01/19/23 Sanitary Engineer Relationship Specialty Start Date End Date Brenda Landon MD PCP - General Family Medicine 01/19/23 Sanitary Engineer Relationship Specialty Start Date End Date Brenda Landon MD PCP - General Family Medicine 01/19/23 Sanitary Engineer Relationship Specialty Start Date End Date Brenda Landon MD PCP - General Family Medicine 01/19/23 Sanitary Engineer Relationship Specialty Start Date End Date Brenda aLndon MD PCP - General Family Medicine 01/19/23 Sanitary Engineer Relationship Specialty Start Date End Date Brenda Landon MD PCP - General Family Medicine 01/19/23 Sanitary Engineer Relationship Specialty Start Date End Date Brenda Landon MD PCP - General Family Medicine 01/19/23 Sanitary Engineer Relationship Specialty Start Date End Date Brenda Landon MD PCP - General Family Medicine 01/19/23 Sanitary Engineer Relationship Specialty Start Date End Date Brenda Landon MD PCP - General Family Medicine 01/19/23 Sanitary Engineer Relationship Specialty Start Date End Date Brenda Landon MD PCP - General Family Medicine 01/19/23 Sanitary Engineer Relationship Specialty Start Date End Date Brenda Landon MD PCP - General Family Medicine 01/19/23 Sanitary Engineer Relationship Specialty Start Date End Date Brenda Landon MD PCP - General Family Medicine 01/19/23 Sanitary Engineer Relationship Specialty Start Date End Date Brenda Landon MD PCP - General Family Medicine 01/19/23 Sanitary Engineer Relationship Specialty Start Date End Date Brenda Landon MD PCP - General Family Medicine 01/19/23 Sanitary Engineer Relationship Specialty Start Date End Date Brenda Landon MD PCP - General Family Medicine 01/19/23 Sanitary Engineer Relationship Specialty Start Date End Date Brenda Landon MD PCP - General Family Medicine 01/19/23 Sanitary Engineer Relationship Specialty Start Date End Date Brenda Landon MD PCP - General Family Medicine 01/19/23 Sanitary Engineer Relationship Specialty Start Date End Date Brenda Landon MD PCP - General Family Medicine 01/19/23 Sanitary Engineer Relationship Specialty Start Date End Date Brenda Landon MD PCP - General Family Medicine 01/19/23 Sanitary Engineer Relationship Specialty Start Date End Date Brenda Landon MD PCP - General Family Medicine 01/19/23 Sanitary Engineer Relationship Specialty Start Date End Date Brenda Landon MD PCP - General Family Medicine 01/19/23 Sanitary Engineer Relationship Specialty Start Date End Date Brenda Landon MD PCP - General Family Medicine 01/19/23 Sanitary Engineer Relationship Specialty Start Date End Date Brenda Landon MD PCP - General Family Medicine 01/19/[address] [address] Registered Dietitian Nutrition 11/15/24 Sanitary Engineer Relationship Specialty Start Date End Date Brenda Landon MD PCP - General Family Medicine 01/19/[address] [place] [address] Registered Dietitian Nutrition 11/15/24 Sanitary Engineer Relationship Specialty Start Date End Date Brenda Landon MD PCP - General Family Medicine 01/19/[address] [place] [address] Registered Dietitian Nutrition 11/15/24 Sanitary Engineer Relationship Specialty Start Date End Date Brenda Landon MD PCP - General Family Medicine 01/19/[address] [place] [address] Registered Dietitian Nutrition 11/15/24 Sanitary Engineer Relationship Specialty Start Date End Date Brenda Landon MD PCP - General Family Medicine 01/19/[address] [place] [address] Registered Dietitian Nutrition 11/15/24 Sanitary Engineer Relationship Specialty Start Date End Date Brenda Landon MD PCP - General Family Medicine 01/19/[address] [place] [address] Registered Dietitian Nutrition 11/15/24 Sanitary Engineer Relationship Specialty Start Date End Date Brenda Landon MD PCP - General Family Medicine 01/19/[address] [address] Registered Dietitian Nutrition 11/15/24 Sanitary Engineer Relationship Specialty Start Date End Date Brenda Landon MD PCP - General Family Medicine 01/19/[address] [address] Registered Dietitian Nutrition 11/15/24 Sanitary Engineer Relationship Specialty Start Date End Date Brenda Landon MD PCP - General Family Medicine 01/19/[address] [place] [address] Registered Dietitian Nutrition 11/15/24 Sanitary Engineer Relationship Specialty Start Date End Date Brenda Landon MD PCP - General Family Medicine 01/19/[address] [place] [address] Registered Dietitian Nutrition 11/15/24 Sanitary Engineer Relationship Specialty Start Date End Date Brenda Landon MD PCP - General Family Medicine 01/19/[address] [place] [address] Registered Dietitian Nutrition 11/15/24 FOR RECORDS PERTAINING TO PATIENTS WHO ARE [...] BE BASED ON THE PRIMARY CLINICAL RECORDS. [facility] [employer] [facility]. provides no warranty or guarantee of the accuracy or completeness of information in this document.
--- OUTSIDE RECORDS SUMMARY | 2025-08-31 07:46 | XMS_ITS | Encounter Summary ---
Author Organization [facility] Address [address] [place] [address] Care Team Providers Care Toggle Press Folder And Feeder Name Role Phone Jeremy Coker MD Primary Care Provider + Val Yates RD Unavailable [phone] Source Comments In the event this information is protected by the Federal Confidentiality of Alcohol and Drug AbusePatient Records regulations: The Federal rules restrict any use of the information to criminally investigate or prosecute any alcohol or drug abuse patient.[facility] Encounter Details Date Type Department Care Team (Latest Contact Info) Description 12/09/2024 Get Medical Advice Ophthalmology [address] [place] [address] Sai Corbin, OD [address] [place] [address] Where to fill prescription Social History Tobacco Use Types Packs/Day Years [...] is lower risk 4 04/13/2023 Data from: https://www.neighborhoodatlas.medicine.[facility]/. Last address used for calculation [id number] [place] [address] [address] 04/13/2023 Comments No Sex and [...] AM EDT Office Visit OPHT Ophthalmology [address] [place] [address] Sai Corbin, OD [address] [place] [address] Diagnostics, [facility] [address] [place], [place] [id number] 1 year documented as of this encounter Visit Diagnoses Not on filedocumented in this encounter Care Teams Toggle Press Folder And Feeder Relationship Specialty Start Date End Date Jeremy Coker MD PCP - General Family Medicine 01/19/[address] [place] [address] Registered Dietitian Nutrition 11/15/24 documented as of this encounter
--- OUTSIDE RECORDS SUMMARY | 2025-08-31 07:46 | XMS_ITS | Encounter Summary ---
Author Organization [facility] Address [address] [place] [address] Care Team Providers Care Molecular Biology Scientist Name Role Phone Jeremy Coker MD Primary Care Provider + Val Yates RD Unavailable [phone] Source Comments In the event this information is protected by the Federal Confidentiality of Alcohol and Drug AbusePatient Records regulations: The Federal rules restrict any use of the information to criminally investigate or prosecute any alcohol or drug abuse patient.[facility] Encounter Details Date Type Department Care Team (Late st Contact Info) Description 11/22/2024 Patient Msg [facility] Gastroenterology [place] [facility] [address] [place] [address] [facility], [facility] [address] [facility] [address] [place] [address] Appointment Cancellation Request Social History Tobacco Use Types Packs/Day [...] is lower risk 4 04/13/2023 Data from: https://www.neighborhoodatlas.medicine.[facility]/. Last address used for calculation [address] [place] [address] [address] 04/13/2023 Comments No Sex and [...] AM EDT Office Visit OPHT Ophthalmology [address] [place] [address] Sai Corbin, OD [address] [place] [address] Diagnostics, [facility] [address] [place] [address] 1 year documented as of this encounter Visit Diagnoses Not on filedocumented in this encounter Care Teams Molecular Biology Scientist Relationship Specialty Start Date End Date Jeremy Coker MD PCP - General Family Medicine 01/19/[address] [place] [address] Registered Dietitian Nutrition 11/15/24 documented as of this encounter
--- OUTSIDE RECORDS SUMMARY | 2025-08-31 07:46 | XMS_ITS | Encounter Summary ---
Author Organization [facility] Address [address] [place] [address] Care Team Providers Care Plush Finisher Name Role Phone Jeremy Coker MD Primary Care Provider + Val Yates RD Unavailable [phone] Source Comments In the event this information is protected by the Federal Confidentiality of Alcohol and Drug AbusePatient Records regulations: The Federal rules restrict any use of the information to criminally investigate or prosecute any alcohol or drug abuse patient.[facility] Encounter Details Date Type Department Care Team (Late st Contact Info) Description 12/24/2022 Patient Msg Gastroenterology [address] [address] Provider, [facility] Nutrition Plan Social History Tobacco Use Types Packs/Day Years [...] N ot on file 12/10/2022 Data from: https://www.neighborhoodatlas.medicine.[facility]/. Last address used for calculation [address] 12/10/2022 Comments [...] AM EDT Office Visit OPHT Ophthalmology [address] [place] [address] Sai Corbin, OD [address] [place] [address] Diagnostics, [facility] [address], [place] [address] 1 year documented as of this encounter Visit Diagnoses Not on filedocumented in this encounter Additional Health Concerns Infection Onset Date Last Indicated Resolved Time COVID-19 Rule-Out 03/07/2023 03/07/2023 03/07/2023 8:54 PM EDT COVID-19 Confirmed Comment:Patient has an anticipated 10 day isolation, will review on 03/16/2023. 03/07/2023 03/07/2023 03/17/2023 8:51 PM E DT documented as of this encounter Care Teams Plush Finisher Relationship Specialty Start Date End Date Jeremy Coker MD PCP - General Family Medicine 01/19/[address] [place] [address] Registered Dietitian Nutrition 11/15/24 documented as of this encounter
--- OUTSIDE RECORDS SUMMARY | 2025-08-31 07:46 | XMS_ITS | Encounter Summary ---
Author Organization [facility] Address [address] [place] [address] Care Team Providers Care Matrix Repairer Name Role Phone Jeremy Coker MD Primary Care Provider + Val Yates RD Unavailable [phone] Source Comments In the event this information is protected by the Federal Confidentiality of Alcohol and Drug AbusePatient Records regulations: The Federal rules restrict any use of the information to criminally investigate or prosecute any alcohol or drug abuse patient.[facility] Encounter Details Date Type Department Care Team ([facility] Contact Info) Description 05/11/2023 Patient Msg Gastroenterology [address] [id number] [place], [facility] [address] [phone] Pharmacist Appointment Social History Tobacco Use Types [...] is lower risk 4 04/13/2023 Data from: https://www.neighborhoodatlas.medicine.[facility]/. Last address used for calculation [address] 46 04/13/2023 Comments No Sex and [...] AM EDT Office Visit [facility] Ophthalmology [address] [place] [address] Sai Corbin, OD [address] [place] [address] Diagnostics, Eye Tech And [address] [place] [address] 1 year documented as of this encounter Visit Diagnoses Not on filedocumented in this encounter Care Teams Matrix Repairer Relationship Specialty Start Date End Date Jeremy Coker MD PCP - General Family Medicine 01/19/[address] [place] [address] Registered Dietitian Nutrition 11/15/24 documented as of this encounter
--- OUTSIDE RECORDS SUMMARY | 2025-08-31 07:47 | XMS_ITS | Encounter Summary ---
Author Organization [facility] Address [address] [place] [address] Care Team Providers Care Residential Air Sealing Technician Name Role Phone Jeremy Coker MD Primary Care Provider + Val Yates RD Unavailable [phone] Source Comments In the event this information is protected by the Federal Confidentiality of Alcohol and Drug AbusePatient Records regulations: The Federal rules restrict any use of the information to criminally investigate or prosecute any alcohol or drug abuse patient.[facility] Encounter Details Date Type Department Care Team (Late st Contact Info) Description 12/10/2022 Patient Msg Gastroenterology [address] [address] Roro Cain APRN.MAINFRAME ANALYST [address] [place] [address] Gonzalez Social History Tobacco Use Types Packs/Day Years [...] N ot on file 12/10/2022 Data from: https://www.neighborhoodatlas.medicine.[facility].edu/. Last address used for calculation [address] [place] [address] Rd 46 12/10/2022 Comments No Sex and Gender Information Value Date Recorded Sex Assigned at Not on file Legal Sex Female 4:17 PM EDT Gender Identity Not on file Sexual Orientation Not on file documented as of this encounter Plan of Treatment Upcoming Encounters Date Type Department Care Team (Late st Contact Info) Description 07/11/2026 9:00 AM EDT Office Visit [facility] Ophthalmology [address] [place] [address] Sai Corbin, OD [address] [place] [address] Diagnostics, Eye Tech And [address] [place] [address] 1 year documented as of this encounter Visit Diagnoses Not on filedocumented in this encounter Additional Health Concerns Infection Onset Date Last Indicated Resolved Time COVID-19 Rule-Out 03/07/2023 03/07/2023 03/07/2023 8:54 PM EDT COVID-19 Confirmed Comment:Patient has an anticipated 10 day isolation, will review on 03/16/2023. 03/07/2023 03/07/2023 03/17/2023 8:51 PM E DT documented as of this encounter Care Teams Residential Air Sealing Technician Relationship Specialty Start Date End Date Jeremy Coker MD PCP - General Family Medicine 01/19/[address] [place] [address] Registered Dietitian Nutrition 11/15/24 documented as of this encounter
--- OUTSIDE RECORDS SUMMARY | 2025-08-31 07:47 | XMS_ITS | Encounter Summary ---
Author Organization [facility] Address [address] [place] [address] Care Team Providers Care Glass Vial Filler Name Role Phone Jeremy Coker MD Primary Care Provider + Val Yates RD Unavailable [phone] Source Comments In the event this information is protected by the Federal Confidentiality of Alcohol and Drug AbusePatient Records regulations: The Federal rules restrict any use of the information to criminally investigate or prosecute any alcohol or drug abuse patient.[facility] Encounter Details Date Type Department Care Team (Late st Contact Info) Description 10/28/2022 Patient Msg Gastroenterology [address] [address] Cuco Gonzalez MD [address] [place] [address] Appointment Request Social History Tobacco Use Types Packs/Day Years Used Date Smoking Tobacco: Never Assessed Area Deprivation Index Answer Date Nadeem rded National Score (1-100), lower number is lower ri sk 58 07/05/2022 State Score (1-10), lower number is lower risk N ot on file 07/05/2022 Data from: https://www.neighborhoodatlas.[facility]/. Last address used for calculation [address] 46 07/05/2022 Comments Unknown Sex and Gender Information Value Date Recorded Sex Assigned at Not on file Legal Sex Female 4:17 PM EDT Gender Identity Not on file Sexual Orientation Not on file documented as of this encounter Plan of Treatment Upcoming Encounters Date Type Department Care Team (Late st Contact Info) Description 07/11/2026 9:00 AM EDT Office Visit [facility] Ophthalmology [address] [place] [address] LamorSai olmedo, OD [address] [place] [address] Diagnostics, Eye Tech And [address] [place] [address] 1 year documented as of this encounter Visit Diagnoses Not on filedocumented in this encounter Additional Health Concerns Infection Onset Date Last Indicated Resolved Time COVID-19 Rule-Out 03/07/2023 03/07/2023 03/07/2023 8:54 PM EDT COVID-19 Confirmed Comment:Patient has an anticipated 10 day isolation, will review on 03/16/2023. 03/07/2023 03/07/2023 03/17/2023 8:51 PM E DT documented as of this encounter Care Teams Glass Vial Filler Relationship Specialty Start Date End Date Jeremy Coker MD PCP - General Family Medicine 01/19/[address] [place] [address] Registered Dietitian Nutrition 11/15/24 documented as of this encounter
--- OUTSIDE RECORDS SUMMARY | 2025-08-31 07:47 | XMS_ITS | Encounter Summary ---
Author Organization [facility] Address [address] [place] [address] Care Team Providers Care Director Surface Transportation Name Role Phone Jeremy Coker MD Primary Care Provider + Val Yates RD Unavailable [phone] Source Comments In the event this information is protected by the Federal Confidentiality of Alcohol and Drug AbusePatient Records regulations: The Federal rules restrict any use of the information to criminally investigate or prosecute any alcohol or drug abuse patient.[facility] Encounter Details Date Type Department Care Team (Late st Contact Info) Description 09/21/2023 Patient Msg Colorectal Surgery [address] [address] Provider, [facility] Follow up Social History Tobacco Use Types Packs/Day Years Used Date Smoking Tobacco: Every Day Cigarettes Passive Smoke Exposure: Current Smokeless Tobacco: Never [...] is lower risk 4 04/13/2023 Data from: https://www.neighborhoodatlas.[facility].edu/. Last address used for calculation [address] 46 04/13/2023 Comments No Sex and [...] AM EDT Office Visit [facility] Ophthalmology [address] [place] [address] Sai Corbin, OD [address] [place] [address] Diagnostics, Eye Tech And [address] [address] 1 year documented as of this encounter Visit Diagnoses Not on filedocumented in this encounter Care Teams Director Surface Transportation Relationship Specialty Start Date End Date Jeremy Coker MD PCP - General Family Medicine 01/19/[address] [place] [address] Registered Dietitian Nutrition 11/15/24 documented as of this encounter
--- OUTSIDE RECORDS SUMMARY | 2025-08-31 07:47 | XMS_ITS | Encounter Summary ---
Author Organization [facility] Address [address] [place] [address] Care Team Providers Care Press Machine Operator Name Role Phone Jeremy Coker MD Primary Care Provider + Val Yates RD Unavailable [phone] Source Comments In the event this information is protected by the Federal Confidentiality of Alcohol and Drug AbusePatient Records regulations: The Federal rules restrict any use of the information to criminally investigate or prosecute any alcohol or drug abuse patient.[facility] Encounter Details Date Type Department Care Team (Late st Contact Info) Description 11/14/2023 Patient Msg Vascular Medicine [address] [place] [address] Christ Santos MD [address] [place] [address] Appointment Cancellation Request Social History Tobacco Use [...] is lower risk 4 04/13/2023 Data from: https://www.neighborhoodatlas.medicine.[facility]/. Last address used for calculation [address] 46 04/13/2023 Comments No Sex [...] AM EDT Office Visit [facility] Ophthalmology [address] [place] [address] Sai Corbin, OD [address] [place] [address] Diagnostics, Eye Tech And [address] [place] [address] 1 year documented as of this encounter Visit Diagnoses Not on filedocumented in this encounter Care Teams Press Machine Operator Relationship Specialty Start Date End Date Jeremy Coker MD PCP - General Family Medicine 01/19/[address] [place] [address] Registered Dietitian Nutrition 11/15/24 documented as of this encounter
--- OUTSIDE RECORDS SUMMARY | 2025-08-31 07:47 | XMS_ITS | Encounter Summary ---
Author Organization [facility] Address [address] [place] [address] Care Team Providers Care Materials Research Engineer Name Role Phone Jeremy Coker MD Primary Care Provider + Val Yates RD Unavailable [phone] Source Comments In the event this information is protected by the Federal Confidentiality of Alcohol and Drug AbusePatient Records regulations: The Federal rules restrict any use of the information to criminally investigate or prosecute any alcohol or drug abuse patient.[facility] Encounter Details Date Type Department Care Team (Late st Contact Info) Description 12/08/2023 Patient Msg Pre Anesthesia [address] [place], [place] [phone] Provider, [facility] PACC appt check in Social History Tobacco Use Types Packs/Day Years Used Date Smoking Tobacco: Former Cigarettes Q uit: 10/21/2023 Passive Smoke Exposure: Current Smokeless Tobacco: [...] is lower risk 4 04/13/2023 Data from: https://www.neighborhoodatlas.medicine.[facility]/. Last address used for calculation [address] 46 04/13/2023 Comments No Sex and [...] AM EDT Office Visit [facility] Ophthalmology [address] [place] [address] Sai Corbin, OD [address] [place], [place] [phone] Diagnostics, Eye Tech And [address] [address] 1 year documented as of this encounter Visit Diagnoses Not on filedocumented in this encounter Care Teams Materials Research Engineer Relationship Specialty Start Date End Date Jeremy Coker MD PCP - General Family Medicine 01/19/[address] [place] [address] Registered Dietitian Nutrition 11/15/24 documented as of this encounter
--- OUTSIDE RECORDS SUMMARY | 2025-08-31 07:47 | XMS_ITS | Encounter Summary ---
Author Organization [facility] Address [address] [place] [address] Care Team Providers Care Ocean Export Account Manager Name Role Phone Jeremy Coker MD Primary Care Provider + Val Yates RD Unavailable [phone] Source Comments In the event this information is protected by the Federal Confidentiality of Alcohol and Drug AbusePatient Records regulations: The Federal rules restrict any use of the information to criminally investigate or prosecute any alcohol or drug abuse patient.[facility] Encounter Details Date Type Department Care Team (Late st Contact Info) Description 11/25/2022 Patient Msg Gastroenterology [address] [place] [address] Provider, [facility] Colonoscopy Prep Instructions Social History Tobacco Use Types Packs/Day Years Used Date Smoking Tobacco: Never Assessed Area Deprivation Index Answer Date Nadeem rded National Score (1-100), lower number is lower ri sk 58 07/05/2022 State Score (1-10), lower number is lower risk N ot on file 07/05/2022 Data from: https://www.neighborhoodatlas.medicine.[facility].edu/. Last address used for calculation [address] [place] [address] 46 07/05/2022 Comments Unknown Sex and Gender Information Value Date Recorded Sex Assigned at Not on file Legal Sex Female 4:17 PM EDT Gender Identity Not on file Sexual Orientation Not on file documented as of this encounter Plan of Treatment Upcoming Encounters Date Type Department Care Team (Late st Contact Info) Description 07/11/2026 9:00 AM EDT Office Visit [facility] Ophthalmology [address] [place] [address] Sai Corbin, OD [address] [place] [address] Diagnostics, Eye Tech And [address] [place] [address] 1 year documented as of this encounter Visit Diagnoses Not on filedocumented in this encounter Additional Health Concerns Infection Onset Date Last Indicated Resolved Time COVID-19 Rule-Out 03/07/2023 03/07/2023 03/07/2023 8:54 PM EDT COVID-19 Confirmed Comment:Patient has an anticipated 10 day isolation, will review on 03/16/2023. 03/07/2023 03/07/2023 03/17/2023 8:51 PM E DT documented as of this encounter Care Teams Ocean Export Account Manager Relationship Specialty Start Date End Date Jeremy Coker MD PCP - General Family Medicine 01/19/[address] [place] [address] Registered Dietitian Nutrition 11/15/24 documented as of this encounter
--- OUTSIDE RECORDS SUMMARY | 2025-08-31 07:47 | XMS_ITS | Encounter Summary ---
Author Organization [facility] Address [address] [place] [address] Care Team Providers Care Automatic Vulcanizing Lead Operator Name Role Phone Jeremy Coker MD Primary Care Provider + Val Yates RD Unavailable [phone] Source Comments In the event this information is protected by the Federal Confidentiality of Alcohol and Drug AbusePatient Records regulations: The Federal rules restrict any use of the information to criminally investigate or prosecute any alcohol or drug abuse patient.[facility] Encounter Details Date Type Department Care Team ([facility] st Contact Info) Description 12/10/2022 Patient Msg Gastroenterology [address] [phone] [place], [facility] [address] [phone] Pharmacist Introduction Social History Tobacco Use Types Packs/Day Years [...] N ot on file 12/10/2022 Data from: https://www.neighborhoodatlas.medicine.[facility].edu/. Last address used for calculation [address] 46 12/10/2022 Comments No Sex and Gender Information Value Date Recorded Sex Assigned at Not on file Legal Sex Female 4:17 PM EDT Gender Identity Not on file Sexual Orientation Not on file documented as of this encounter Plan of Treatment Upcoming Encounters Date Type Department Care Team (Late st Contact Info) Description 07/11/2026 9:00 AM EDT Office Visit [facility] Ophthalmology [address] [place] [address] Sai Corbin, OD [address] [place] [address] Diagnostics, Eye Tech And [address] [place], [place] [address] 1 year documented as of this encounter Visit Diagnoses Not on filedocumented in this encounter Additional Health Concerns Infection Onset Date Last Indicated Resolved Time COVID-19 Rule-Out 03/07/2023 03/07/2023 03/07/2023 8:54 PM EDT COVID-19 Confirmed Comment:Patient has an anticipated 10 day isolation, will review on 03/16/2023. 03/07/2023 03/07/2023 03/17/2023 8:51 PM E DT documented as of this encounter Care Teams Automatic Vulcanizing Lead Operator Relationship Specialty Start Date End Date Jeremy Coker MD PCP - General Family Medicine 01/19/[address], [place] [address] Registered Dietitian Nutrition 11/15/24 documented as of this encounter
[2025-08-31 08:36] LABS: Glucose Urine UA NEGATIVE (NEGATIVE)
[2025-08-31 08:40] LABS: Hematocrit 45.6 % (36.0-48.0); Hemoglobin 14.9 g/dL (12.0-16.0); Immature Granulocytes Abs Auto 0.01 10^3/uL (0.00-0.03); Immature Granulocytes Pct Auto 0.2 % (0.0-0.5); Lymphocytes Absolute Auto 0.9 10^3/uL (1.2-3.8); Mean Corpuscular HGB Conc 32.7 g/dL (29.9-35.2); Mean Corpuscular Hemoglobin 31.2 pg (26.7-34.0); Mean Corpuscular Volume 95.6 fL (81.0-99.0); Platelet Count 260 10^3/uL (150-450); Red Blood Count 4.77 10^6/uL (4.20-5.40); White Blood Count 5.4 10^3/uL (4.0-11.0)
[2025-08-31 08:58] LABS: Cast Seen? NONE SEEN #/LPF (NONE SEEN); Crystals Seen? None Seen #/HPF (None Seen); Urine Culture Indicated ALREADY ORDERED
[2025-08-31 09:02] LABS: Iron 47.0 ug/dL (50.0-170.0)
[2025-08-31 09:56] LABS: Alanine Aminotransferase 20 U/L (14-59); Albumin Globulin Ratio 1.0; Albumin Level 4.0 g/dL (3.4-5.0); Alkaline Phosphatase 60 U/L (46-116); Anion Gap 13.0; Aspartate Amino Transferase 15 U/L (15-37); Blood Urea Nitrogen 14.0 mg/dL (7.0-18.0); Calcium 9.1 mg/dL (8.5-10.1); Carbon Dioxide 28.4 mmol/L (21.0-32.0); Chloride 102 mmol/L (98-107); Cholesterol 158 mg/dL (<=200); Estimated GFR (African America >60 (>=60 mL/min/1.73m^2); Estimated GFR (Non-African Ame >60 (>=60 mL/min/1.73m^2); Free T3 2.71 pg/mL (2.18-3.98); Globulin 3.9 g/dL; Glucose 90 mg/dL (74-106); HDL Cholesterol 65 mg/dL (40-60); Potassium 4.4 mmol/L (3.5-5.1); Sodium 139 mmol/L (136-145); Total Protein 7.9 g/dL (6.4-8.2); Triglycerides 42 mg/dL (<=150); VLDL CHOLESTEROL 8.4 mg/dL
[2025-08-31 10:17] LABS: Thyroid Stimulating Hormone 2.124 uIU/mL (0.358-3.740)
[2025-09-01 07:09] LABS: FSH 4.3 mIU/mL (.)
== END 2025-08-31 07:44 | disposition home or self-care (01) ==
LOC: LAB 07:43
PROVIDERS: PCP Family Medicine; Visit Provider Family Medicine
DX: R63.4 Abnormal weight loss (principal); R53.83 Other fatigue; K50.90 Crohn's disease, unspecified, without complications; M45.9 Ankylosing spondylitis of unspecified sites in spine; R73.09 Other abnormal glucose; Z12.12 Encounter for screening for malignant neoplasm of rectum; D64.9 Anemia, unspecified
CPT/HCPCS: 36415; 80053; 80061; 81001; 82306; 82670; 83001; 83002; 83036; 83525; 83540; 84144; 84146; 84436; 84443; 84481; 85025; 85652; 86140; 87086